=== PATIENT | male | born 1950 | race Caucasian/White ===

== ENCOUNTER 2022-12-26 12:51 | Outpatient (OUT) | payer MEDICARE, SELFPAY ==
[2022-12-26 13:14] LABS: Hemoglobin 14.6 g/dL (14.0-18.0)
[2022-12-26 14:23] VITALS: PULSE 62
[2022-12-26] MEDS: ALBUTEROL SULFATE 2.5 MG/3 ML VIAL NEB IH (14:23)
--- NOTE | 2022-12-26 14:26 | RT_ITS ---
[facility] Test Date: 2022-12-26 Pat Name: RUAL MULLEN Department: Room: - Gender: Male Milk Inspector: Mahesh Meyer RRT : 1950 Requested By: DEZ RODRIGUEZ Order Number: [id number] Ronald MD: Rocael Chandler Interpretive Statements Pulmonary function testing was completed according to ATS criteria. Findings were considered accurate and reproducible, with exception of DLCO which did not meet ATS standards. Both pre- and post-bronchodilator values utilized for spirometry. No prior studies available for comparison. Spirometry (based on pre-bronchodilator values): -FEV1/FVC: Reduced @ 40% -FEV1: Severely reduced @ 35% -FVC: Reduced @ 64% -There is a positive bronchodilator response in FEV1 and FVC. Lung volumes by plethysmography (based on pre-bronchodilator values): -RV: Increased @ 246% -TLC: Increased @ 125% Diffusion capacity: -DLCO: Moderate reduction @ 58% when corrected for Hb 14.6g/dL Flow-volume loop: -Severe obstructive pattern Impressions: -Severe obstruction on spirometry with a positive bronchodilator response. Elevated RV and TLC suggest air trapping and hyperinflation respectively. Moderate diffusion impairment. Overall study compatible with COPD with a positive bronchodilator response or asthma-COPD overlap. Clinical correlation required. Electronically Signed On 12-28-2022 7:56:15 EDT by Rocael Chandler
== END 2022-12-26 12:52 | disposition home or self-care (01) ==
LOC: CARD 12:51
PROVIDERS: PCP Family Medicine; Visit Provider Family Medicine
DX: J44.9 Chronic obstructive pulmonary disease, unspecified (principal); R94.2 Abnormal results of pulmonary function studies
CPT/HCPCS: 36415; 85018; 94060; 94726; 94729

== ENCOUNTER 2023-03-05 16:31 | Observation (INO) | payer MEDICARE, SELFPAY ==
[2023-03-05] VITALS (22 sets, daily range): BP systolic 108–153; BP diastolic 38–93; PULSE 80–112; RESP 18–38; TEMP 36.8–37.1; O2SAT 94–98; BMI 27.1; BMI 26.9
--- NOTE | 2023-03-05 16:45 | ECG_ITS ---
[facility] Test Date: 2023-03-05 Pat Name: RAUL MULLEN Department: Room: - Gender: Male Residential Glazier: : 1950 Requested By: DEZ RODRIGUEZ Order Number: [id number] Reading MD: DEZ RODRIGUEZ Measurements Intervals [place] Rate: 89 P: 84 HI: 146 QRS: 90 QRSD: 98 T: 71 QT: 338 QTc: 385 Interpretive Statements 1100 Sinus rhythm [address] depression 9150 abnormal ECG No previous ECG available for comparison Electronically Signed On 03-06-2023 6:13:10 EDT by DEZ RODRIGUEZ
--- NOTE | 2023-03-05 16:45 | XR_ITS ---
The [address] [address] Patient Name: RAUL MULLEN MRN: [id number] date: 1950 Sex: M Assigned Patient Location: ER Current Patient Location: ER Accession/Order Number: [id number] Exam Date: 03/05/2023 17:00 Report Date: 03/05/2023 17:19 At the request of: NIKITA POLO Procedure: XR chest 1V EXAMINATION: XR chest 1V HISTORY: Shortness of breath COMPARISON: Chest x-ray 11/23/2022 TECHNIQUE: Portable chest FINDINGS: The lung parenchyma is free of consolidation or infiltrate. No pneumothorax or pleural effusion. The cardiac, mediastinal and hilar contours are normal. The visualized osseous structures exhibit no gross abnormality. XR/XR chest 1V IMPRESSION: No acute cardiopulmonary abnormality. Electronically authenticated by: IZABEL SANTIZO Date: 03/05/2023 17:19
--- NOTE | 2023-03-05 16:55 | ED.GENADUL1 ---
HPI - General Adult General Chief complaint: Shortness of Breath/Dyspnea Stated complaint: COPD Time Seen by Provider: 03/05/23 16:42 Source: patient and family Mode of arrival: Wheelchair Limitations: no limitations History of Present Illness HPI narrative: patient is a 72-year-old male with known history of chronic obstructive pulmonary disease presents to the Emergency Room with concerns of shortness of breath and difficulty breathing. Semi-productive cough, symptoms for the past forty-eight hours and progressively worsening. Patient notes chest pain only with coughing. Denies any leg swelling, states he feels like he is retaining some fluid. He denies any measurable fever. Can speak in 4-5 word sentences. Becomes very short of breath with any exertion. Related Data Allergies Allergy/AdvReac Type Severity Reaction Status Date / Time prednisone AdvReac Severe Weakness Verified 03/05/23 16:47 vitamin C AdvReac Severe Hives Uncoded 03/05/23 16:48 Review of Systems ROS Constitutional Denies: fever or chills Eyes Denies: change in vision Ears, nose, mouth, and throat Denies: throat pain or neck pain Cardiovascular Reports: chest pain (with cough only) and shortness of breath when lying down; Denies: palpitations Respiratory Reports: shortness of breath, cough and wheezing Gastrointestinal Denies: abdominal pain, nausea or vomiting Genitourinary Denies: painful urination Musculoskeletal Denies: back pain or neck pain Integumentary/Breast Denies: rash Neurological Denies: headache Psychiatric Denies: anxiety Endocrine Denies: excessive urination Allergic/Immunologic Denies: hives PFSH PFSH Social History Smoking status: Current some day smoker Exam Narrative Exam Narrative: Nurses notes and vital signs reviewed and patient is not hypoxic. General: The patient sitting up, labored breathing, speaking in 4-5 word sentences Skin: Warm, dry, no pallor noted.no evidence of rash Head: Normocephalic, atraumatic Neck: Supple, trachea mid-line, no tenderness, no lymphadenopathy Eye: Pupils are equal, round and reactive to light, EOMI Ears, Nose, Mouth, and Throat: TM are clear, normal light reflex, oral mucosa is moist, no posterior oropharynx erythema or hypertrophy, uvula is mid-line Cardiovascular: Regular Rate and Rhythm Respiratory: labored breathing, able to speak, harsh wheezing noted upper lung mahoney with rhonchi in the bases bilaterally Chest Wall: no tenderness, no pleuritic pain Back: non-tender, no CVA tenderness Musculoskeletal: normal ROM, no tenderness, no swelling, no calf tenderness GI: Normal bowel sounds, no tenderness to palpation, no masses appreciated. No rebound, guarding, or rigidity noted. Neurological: A&O x4 Psychiatric: Cooperative Constitutional Vital Signs, click to edit/add: Last Vital Signs Temp 98.2 F 03/05/23 16:41 Pulse 107 H 03/05/23 17:40 Resp 31 H 03/05/23 17:40 BP 108/93 H 03/05/23 16:43 Pulse Ox 95 03/05/23 17:40 O2 Del Method Room Air 03/05/23 16:41 Course Vital Signs Vital signs: Vital Signs Temperature 98.2 F 03/05/23 16:41 Pulse Rate 98 H 03/05/23 16:41 Respiratory Rate 30 H 03/05/23 16:41 Blood Pressure 108/93 H 03/05/23 16:41 Pulse Oximetry 96 03/05/23 16:41 Oxygen Delivery Method Room Air 03/05/23 16:41 Temperature 98.2 F 03/05/23 16:41 Pulse Rate 107 H 03/05/23 17:40 Respiratory Rate 31 H 03/05/23 17:40 Blood Pressure 108/93 H 03/05/23 16:43 Pulse Oximetry 95 03/05/23 17:40 Oxygen Delivery Method Room Air 03/05/23 16:41 Medical Decision Making MDM Narrative Medical decision making narrative: patient presents with likely chronic obstructive pulmonary disease exacerbation, given Solu-Medrol 125 mg IV, DuoNeb and albuterol breathing treatments. Patient will be monitored for improvement in his breathing. patient reevaluated, significant coughing, patient still feels short of breath. Patient be given azithromycin 500 mg IV. We discussed his prior history with chronic obstructive pulmonary disease, cchest x-ray negative for infiltrate. Recommend admission for furrther pulmonary treatment. Patient's case discussed with Dr. Andino by regarding the need for admission Lab Data Lab results reviewed: Yes I reviewed the patient's lab results Labs: Lab Results 03/05/23 Range/Units 16:50 WBC 8.2 (4.0-11.0) 10^3/uL RBC 4.98 (4.70-6.10) 10^6/uL Hgb 15.1 (14.0-18.0) g/dL Hct 45.5 (42.0-54.0) % MCV 91.4 (80.0-94.0) fL MCH 30.3 (25.9-34.0) pg MCHC 33.2 (29.9-35.2) g/dL RDW 14.5 (11.0-15.0) % Plt Count 310 (150-450) 10^3/uL MPV 8.9 L (9.5-13.5) fL Neut % (Auto) 69.0 (43.0-75.0) % Lymph % (Auto) 14.7 L (20.5-60.0) % [place] % (Auto) 12.3 H (1.7-12.0) % Eos % (Auto) 2.9 (0.9-7.0) % Baso % (Auto) 0.7 (0.2-2.0) % Neut # (Auto) 5.7 (1.4-6.5) 10^3/uL Lymph # (Auto) 1.2 (1.2-3.8) 10^3/uL [place] # (Auto) 1.0 H (0.3-0.8) 10^3/uL Eos # (Auto) 0.2 (0.0-0.7) 10^3/uL Baso # (Auto) 0.1 (0.0-0.1) 10^3/uL Abs Immat Gran (auto) 0.03 (0.00-0.03) 10^3/uL Imm/Tot Granulo (auto) 0.4 (0.0-0.5) % Sodium 136 (136-145) mmol/L Potassium 4.4 (3.5-5.1) mmol/L Chloride 104 (98-107) mmol/L Carbon Dioxide 26.6 (21.0-32.0) mmol/L Anion Gap 9.8 BUN 11.0 (7.0-18.0) mg/dL Creatinine 1.15 (0.70-1.30) mg/dL Est GFR ( Amer) >60 (>=60) Est GFR (Non-Af Amer) >60 (>=60) BUN/Creatinine Ratio 9.6 Glucose 85 (74-106) mg/dL Lactate 1.2 (0.4-2.0) mmol/L Calcium 8.9 (8.5-10.1) mg/dL Total Bilirubin 0.2 (0.2-1.0) mg/dL AST 19 (15-37) U/L ALT 27 (16-63) U/L Alkaline Phosphatase 142 H (46-116) U/L Troponin I High Sens 4.7 (4.0-76.1) pg/mL NT-Pro-B Natriuret Pep 100.0 (<=900.0) pg/mL Total Protein 7.1 (6.4-8.2) g/dL Albumin 3.6 (3.4-5.0) g/dL Globulin 3.5 g/dL Albumin/Globulin Ratio 1.0 Imaging Data Chest x-ray: Radiologist's impression: Procedure: XR chest 1V EXAMINATION: XR chest 1V HISTORY: Shortness of breath COMPARISON: Chest x-ray 11/23/2022 TECHNIQUE: Portable chest FINDINGS: The lung parenchyma is free of consolidation or infiltrate. No pneumothorax or pleural effusion. The cardiac, mediastinal and hilar contours are normal. The visualized osseous structures exhibit no gross abnormality. IMPRESSION: No acute cardiopulmonary abnormality. Electronically authenticated by: IZABEL SANTIZO Date: 03/05/2023 17:19 ECG Data Attestation: I personally reviewed and interpreted this ECG as follows: Interpretation: EKG interpretation: Emergency Department physician interpretation, sinus rhythm 89 bpm, notable artifact with patient breathing , no ST elevation Discharge Plan Discharge Chief Complaint: Shortness of Breath/Dyspnea Clinical Impression: COPD exacerbation Patient Disposition: Admitted As Inpatient Time of Disposition Decision: 18:30 Condition: Good Additional Instructions: Dr. Andino Referrals: John Bhagat MD [Primary Care Provider] - 1 week
[2023-03-05] MEDS: ALBUTEROL SULFATE 2.5 MG/3 ML VIAL NEB IH (17:02)
[2023-03-05] MEDS: IPRATROPIUM/ALBUTEROL SULFATE 3 ML AMPUL.NEB IH ×2 (17:02→22:55)
[2023-03-05 17:06] LABS: Basophils Absolute Auto 0.1 10^3/uL (0.0-0.1); Basophils Percent Auto 0.7 % (0.2-2.0); Eosinophils Absolute Auto 0.2 10^3/uL (0.0-0.7); Eosinophils Percent Auto 2.9 % (0.9-7.0); Hematocrit 45.5 % (42.0-54.0); Hemoglobin 15.1 g/dL (14.0-18.0); Immature Granulocytes Abs Auto 0.03 10^3/uL (0.00-0.03); Immature Granulocytes Pct Auto 0.4 % (0.0-0.5); Lymphocytes Absolute Auto 1.2 10^3/uL (1.2-3.8); Lymphocytes Percent Auto 14.7 % (20.5-60.0); Mean Corpuscular HGB Conc 33.2 g/dL (29.9-35.2); Mean Corpuscular Hemoglobin 30.3 pg (25.9-34.0); Mean Corpuscular Volume 91.4 fL (80.0-94.0); Mean Platelet Volume 8.9 fL (9.5-13.5); Monocytes Percent Auto 12.3 % (1.7-12.0); Neutrophils Absolute Auto 5.7 10^3/uL (1.4-6.5); Platelet Count 310 10^3/uL (150-450); Red Blood Count 4.98 10^6/uL (4.70-6.10); Red Cell Distribution Width 14.5 % (11.0-15.0); White Blood Count 8.2 10^3/uL (4.0-11.0)
[2023-03-05 17:32] LABS: Alanine Aminotransferase 27 U/L (16-63); Albumin Level 3.6 g/dL (3.4-5.0); Alkaline Phosphatase 142 U/L (46-116); Anion Gap 9.8; Aspartate Amino Transferase 19 U/L (15-37); BUN Creatinine Ratio 9.6; Bilirubin Total 0.2 mg/dL (0.2-1.0); Calcium 8.9 mg/dL (8.5-10.1); Carbon Dioxide 26.6 mmol/L (21.0-32.0); Chloride 104 mmol/L (98-107); Estimated GFR (African America >60 (>=60); Estimated GFR (Non-African Ame >60 (>=60); Globulin 3.5 g/dL; Glucose 85 mg/dL (74-106); Potassium 4.4 mmol/L (3.5-5.1); Sodium 136 mmol/L (136-145); Total Protein 7.1 g/dL (6.4-8.2)
[2023-03-05 17:34] LABS: Troponin I High Sensitivity 4.7 pg/mL (4.0-76.1)
[2023-03-05] MEDS: METHYLPREDNISOLONE SOD SUCC PF 125 MG/2 ML VIAL IVP (17:34)
[2023-03-05] MEDS: 0.9 % SODIUM CHLORIDE 1,000 ML 100 ML IV (17:34)
[2023-03-05 17:51] LABS: Lactate/Lactic Acid 1.2 mmol/L (0.4-2.0)
[2023-03-05] MEDS: AZITHROMYCIN 500 MG in 0.9 % SODIUM CHLORIDE 250 ML 250 MG IV (18:39)
[2023-03-05 18:44] LABS: SARS-CoV-2 Ag NEGATIVE (NEGATIVE)
--- NOTE | 2023-03-05 23:40 | P.PN_ITS ---
Exam Constitutional Vital Signs, click to edit/add: Last Vital Signs Temp 98.7 F 03/05/23 22:58 Pulse 85 03/05/23 23:07 Resp 22 03/05/23 23:07 BP 115/38 L 03/05/23 22:58 Pulse Ox 96 03/05/23 23:07 O2 Del Method Room Air 03/05/23 23:07 Common normals: no apparent distress HENMT Common normals: normocephalic Chest Common normals: inspection of chest normal Other: Minimal wheezing Respiratory Common normals: no use of accessory muscles Auscultation: wheezes Cardio Common normals: regular rate and regular rhythm GI Common normals: Normal to inspection, nondistended, normoactive bowel sounds present and non-tender Extremity Common normals: normal to inspection Neuro Common normals: oriented x3 Psych Common normals: mental status grossly normal Progress Note: Objective Labs Labs: Short CBC 03/05/23 Range/Units 16:50 WBC 8.2 (4.0-11.0) 10^3/uL Hgb 15.1 (14.0-18.0) g/dL Hct 45.5 (42.0-54.0) % Plt Count 310 (150-450) 10^3/uL BMP 03/05/23 16:50 Sodium 136 Potassium 4.4 Chloride 104 Carbon Dioxide 26.6 BUN 11.0 Creatinine 1.15 Glucose 85 Calcium 8.9 Liver Function 03/05/23 Range/Units 16:50 Total Bilirubin 0.2 (0.2-1.0) mg/dL AST 19 (15-37) U/L ALT 27 (16-63) U/L Alkaline Phosphatase 142 H (46-116) U/L Albumin 3.6 (3.4-5.0) g/dL Progress Note: A&P Assessment and Plan (1) COPD exacerbation: Plan COPD Exacerbation IV steroids Monitor O2 Home meds Regular diet BIPAP if needed Telemedicine Attestation Telemedicine Attestation I conducted this encounter from [facility] via secure live, [id number] video conference with the patient, located at [facility]. Prior to the interview, the risks and benefits of telemedicine were discussed with the patient and verbal consent was obtained. COPD Pt presents with dyspnea and wheezing for past one week. has been trying bronchodilators at home with no help. Has ho COPD. no other medical issues. When he came to ER, he was wheezing and recieved IV solumedrol with minimal relief in wheezing. However, tachypnea did improve. has not been needing O2. Has had some minimal phlegm as well. no fever or chills. Current symptoms: Reports dyspnea and wheezing Pulmonary Results: Pulmonary Function Test 12/26/22
[2023-03-06] VITALS (16 sets, daily range): BP systolic 122–140; BP diastolic 65–78; PULSE 77–102; RESP 18–26; TEMP 36.5–36.6; O2SAT 91–95
[2023-03-06] MEDS: GUAIFENESIN 200 MG/10 ML LIQUID 100 MG PO (00:48)
[2023-03-06] MEDS: METHYLPREDNISOLONE SOD SUCC PF 40 MG/ML VIAL IVP ×3 (02:28→17:22)
[2023-03-06] MEDS: IPRATROPIUM/ALBUTEROL SULFATE 3 ML AMPUL.NEB IH ×3 (04:24→23:59)
--- NOTE | 2023-03-06 04:28 | RESP.RT ---
decreased down to room air
[2023-03-06 04:53] LABS: Basophils Percent Auto 0.2 % (0.2-2.0); Hematocrit 41.3 % (42.0-54.0); Hemoglobin 13.6 g/dL (14.0-18.0); Immature Granulocytes Abs Auto 0.02 10^3/uL (0.00-0.03); Immature Granulocytes Pct Auto 0.3 % (0.0-0.5); Lymphocytes Absolute Auto 0.4 10^3/uL (1.2-3.8); Mean Corpuscular HGB Conc 32.9 g/dL (29.9-35.2); Mean Corpuscular Hemoglobin 30.3 pg (25.9-34.0); Mean Platelet Volume 9.1 fL (9.5-13.5); Monocytes Absolute Auto 0.1 10^3/uL (0.3-0.8); Monocytes Percent Auto 2.2 % (1.7-12.0); Neutrophils Absolute Auto 5.5 10^3/uL (1.4-6.5); Neutrophils Percent Auto 91.3 % (43.0-75.0); Platelet Count 305 10^3/uL (150-450); Red Blood Count 4.49 10^6/uL (4.70-6.10); Red Cell Distribution Width 14.5 % (11.0-15.0)
[2023-03-06 06:35] LABS: Alanine Aminotransferase 24 U/L (16-63); Albumin Level 3.3 g/dL (3.4-5.0); Alkaline Phosphatase 122 U/L (46-116); Anion Gap 14.8; Aspartate Amino Transferase 12 U/L (15-37); BUN Creatinine Ratio 9.9; Bilirubin Total 0.2 mg/dL (0.2-1.0); Calcium 8.4 mg/dL (8.5-10.1); Carbon Dioxide 22.9 mmol/L (21.0-32.0); Chloride 108 mmol/L (98-107); Estimated GFR (African America 60 (>=60); Estimated GFR (Non-African Ame 49 (>=60); Globulin 3.3 g/dL; Glucose 214 mg/dL (74-106); Potassium 3.7 mmol/L (3.5-5.1); Sodium 142 mmol/L (136-145); Total Protein 6.6 g/dL (6.4-8.2)
[2023-03-06 07:33] LABS: Glucometer 160 mg/dL (74-106)
[2023-03-06] MEDS: CEFTRIAXONE 1,000 MG in 0.9 % SODIUM CHLORIDE 50 ML 100 MG IV (08:06)
[2023-03-06] MEDS: INSULIN ASPART 300 UNIT/3 ML PEN SUBQ ×2 (08:08→12:15)
--- NOTE | 2023-03-06 08:37 | P.HP_ITS ---
H&P: HPI History of Present Illness Chief complaint: COPD Exacerbation Narrative: Patient well-known to me from both office outpatient care as well as inpatient hospitalizations. Presented to the emergency room with increasing cough minimally productive, shortness of breath, found to have acute exacerbation of COPD secondary to acute bronchitis. Patient on multiple medical therapies in the emergency room without improving significantly as cough or his shortness of breath. Usually he requires a 2 to 3-day hospital stay. Review of Systems ROS Constitutional Denies: fever or chills Eyes Denies: change in vision Ears, nose, mouth, and throat Denies: throat pain Cardiovascular Denies: chest pain or palpitations Respiratory Reports: shortness of breath, cough, wheezing and chest congestion Gastrointestinal Denies: abdominal pain Genitourinary Denies: painful urination Musculoskeletal Denies: back pain [facility] Medical History (Updated 03/05/23 @ 20:29 by Chela Yañez, YOLY) Family History (Updated 03/05/23 @ 20:18 by Chela Yañez, RN) Other Family history of CHF (congestive heart failure) Family history of COPD (chronic obstructive pulmonary disease) Family history of diabetes mellitus Family history of myocardial infarction Social History (Updated 03/05/23 @ 20:23 by Chela Yañez, RN) Within the past year, how often did you have a drink containing alcohol: never Score interpretation: A score less than 4 is consistent with normal alcohol consumption. Smoking status: Current some day smoker Non-prescribed substance use: denies use Highest level of school completed/degree received: GED or equivalent Little interest or pleasure in doing things: not at all Feeling down, depressed, or hopeless: not at all Feel stressed/tense/nervous/anxious/difficulty sleeping: not at all Meds Home Medications and Allergies Home Medications Medication Instructions Recorded Confirmed Type albuterol sulfate 90 mcg/actuation 2 inh inhalation Q6H PRN shortness 03/05/23 03/06/23 History aerosol inhaler of breath or wheezing theophylline 300 mg 300 mg PO BID 03/05/23 03/06/23 History tablet,extended release,12 hr mometasone-formoterol HFA 200 2 inh inhalation BID 03/06/23 03/06/23 History mcg-5 mcg/actuation aerosol inhaler (Dulera) Allergies Allergy/AdvReac Type Severity Reaction Status Date / Time prednisone AdvReac Severe Weakness Verified 03/05/23 16:47 vitamin C AdvReac Severe Hives Uncoded 03/05/23 16:48 Exam Constitutional Vital Signs, click to edit/add: Last Vital Signs Temp 97.8 F 03/06/23 07:35 Pulse 94 H 03/06/23 07:49 Resp 18 03/06/23 07:35 BP 125/65 03/06/23 07:35 Pulse Ox 93 L 03/06/23 07:35 O2 Del Method Room Air 03/06/23 07:35 O2 Flow Rate 0.5 03/06/23 04:28 Documenting provider has reviewed patient's vital signs: yes Common normals: apparent distress General appearance: in distress HENMT Common normals: normocephalic Chest Common normals: inspection of chest normal Respiratory Common normals: abnormal respiratory effort Effort & inspection: respiratory distress; not able to speak in complete sentences Auscultation: rhonchi and diminished lung sounds Cardio Common normals: regular rate, regular rhythm and no murmurs GI Common normals: Normal to inspection, nondistended, normoactive bowel sounds present Results Labs Labs: Short CBC 03/05/23 03/06/23 Range/Units 16:50 04:04 WBC 8.2 6.0 (4.0-11.0) 10^3/uL Hgb 15.1 13.6 L (14.0-18.0) g/dL Hct 45.5 41.3 L (42.0-54.0) % Plt Count 310 305 (150-450) 10^3/uL BMP 03/05/23 03/06/23 16:50 04:04 Sodium 136 142 Potassium 4.4 3.7 Chloride 104 108 H Carbon Dioxide 26.6 22.9 BUN 11.0 14.0 Creatinine 1.15 1.41 H Glucose 85 214 H Calcium 8.9 8.4 L Liver Function 03/05/23 03/06/23 Range/Units 16:50 04:04 Total Bilirubin 0.2 0.2 (0.2-1.0) mg/dL AST 19 12 L (15-37) U/L ALT 27 24 (16-63) U/L Alkaline Phosphatase 142 H 122 H (46-116) U/L Albumin 3.6 3.3 L (3.4-5.0) g/dL Assessment and Plan Assessment and Plan (1) COPD exacerbation: (2) Arthritis: (3) Chronic bronchitis: (4) Emphysema lung: (5) Hiatal hernia: Plan Respiratory distress, sinus tachycardia secondary to a acute exacerbation of COPD with acute bronchitis but without hypoxia. Lung exam significantly changed from his baseline. Normally he is clear to examination but with distant breath sounds, severe rhonchi persisting this morning. Continue with steroids and antibiotics, adjusted antibiotics this morning already, will hold off on increasing steroids currently secondary to hyperglycemia, tried obtain sputum sa mple, consider repeat chest x-ray, check theophylline level, maintain theophylline dosing Iron deficiency anemia-monitor daily Hyperglycemia secondary to steroid use, will try to keep the steroid dose low but needs insulin sliding scale Acute kidney injury-somewhat elevated today, will monitor daily, reviewed medications Attempted to try to discharge patient after overnight treatment. He is not requiring any supplemental oxygen but his lung exam is consistent with acute exacerbation of his COPD which is in the past but unable to improve as an 8 outpatient required extended stay for acute COPD. To try to prevent extended stable keep him 1 additional day today. Maintain observation status for now. If patient does not improve overnight will change patient to inpatient status
--- NOTE | 2023-03-06 08:52 | CM.NOTE ---
Rounds made with Dr. Bhagat, no discharge today. No discharge needs identified.
--- NOTE | 2023-03-06 08:59 | CM.NOTE ---
Medicare Outpatient Observation Notice discussed with pt, pt verbalizes understanding and signs paper. Original given to pt and copy placed on pt's chart.
[2023-03-06 10:14] LABS: Theophylline <2.0 ug/mL (10.0-20.0)
[2023-03-06 11:37] LABS: Glucometer 155 mg/dL (74-106)
--- NOTE | 2023-03-06 12:13 | SWNOTE1 ---
SW met with pt to discuss dc needs. Pt lives at home with his . 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 Pt has no concerns about discharge at this time. SW to follow as needed.
[2023-03-06 16:02] LABS: Glucometer 132 mg/dL (74-106)
[2023-03-06 16:19] LABS: SARS-CoV-2 NAA NOT DETECTED (NOT DETECTE)
[2023-03-06 20:19] LABS: Glucometer 180 mg/dL (74-106)
[2023-03-07] MEDS: INSULIN ASPART 300 UNIT/3 ML PEN SUBQ (00:13)
[2023-03-07 00:18] LABS: Glucometer 144 mg/dL (74-106)
[2023-03-07] MEDS: METHYLPREDNISOLONE SOD SUCC PF 40 MG/ML VIAL IVP ×2 (02:39→08:49)
[2023-03-07 04:45] LABS: Basophils Percent Auto 0.1 % (0.2-2.0); Hematocrit 40.8 % (42.0-54.0); Hemoglobin 13.4 g/dL (14.0-18.0); Immature Granulocytes Abs Auto 0.12 10^3/uL (0.00-0.03); Immature Granulocytes Pct Auto 0.8 % (0.0-0.5); Lymphocytes Absolute Auto 0.7 10^3/uL (1.2-3.8); Lymphocytes Percent Auto 4.7 % (20.5-60.0); Mean Corpuscular HGB Conc 32.8 g/dL (29.9-35.2); Mean Corpuscular Volume 91.3 fL (80.0-94.0); Mean Platelet Volume 8.9 fL (9.5-13.5); Monocytes Absolute Auto 1.2 10^3/uL (0.3-0.8); Monocytes Percent Auto 7.9 % (1.7-12.0); Neutrophils Absolute Auto 12.9 10^3/uL (1.4-6.5); Neutrophils Percent Auto 86.5 % (43.0-75.0); Platelet Count 325 10^3/uL (150-450); Red Blood Count 4.47 10^6/uL (4.70-6.10); Red Cell Distribution Width 14.8 % (11.0-15.0); White Blood Count 14.9 10^3/uL (4.0-11.0)
[2023-03-07 05:01] LABS: Anion Gap 12.1; BUN Creatinine Ratio 15.2; Chloride 106 mmol/L (98-107); Estimated GFR (African America >60 (>=60); Estimated GFR (Non-African Ame >60 (>=60); Glucose 133 mg/dL (74-106); Potassium 4.1 mmol/L (3.5-5.1); Sodium 140 mmol/L (136-145)
[2023-03-07 05:42] VITALS: O2SAT 95
[2023-03-07] MEDS: IPRATROPIUM/ALBUTEROL SULFATE 3 ML AMPUL.NEB IH (05:42)
[2023-03-07 05:58] VITALS: BP 152/74; PULSE 95; RESP 18; TEMP 36.6; O2SAT 92
[2023-03-07] MEDS: CEFTRIAXONE 1,000 MG in 0.9 % SODIUM CHLORIDE 50 ML 100 MG IV (06:19)
--- NOTE | 2023-03-07 08:16 | CM.NOTE ---
Rounds made with guero Herring to discharge to home today. No discharge needs identified.
[2023-03-07] MEDS: THEOPHYLLINE 300 MG TAB.ER.12H PO (08:49)
--- NOTE | 2023-03-07 09:28 | P.DS_ITS ---
DS: Providers Provider Date of admission: 03/05/23 19:46 Primary care physician: John Bhagat MD DS: Diagnosis Discharge Diagnosis (1) COPD exacerbation: (2) Arthritis: (3) Chronic bronchitis: (4) Emphysema lung: (5) Hiatal hernia: Plan Respiratory distress, sinus tachycardia secondary to a acute exacerbation of COPD with acute bronchitis but without hypoxia. Lung exam significantly changed from his baseline. Normally he is clear to examination but with distant breath sounds, severe rhonchi persisting this morning. Continue with steroids and antibiotics, adjusted antibiotics this morning already, will hold off on increasing steroids currently secondary to hyperglycemia, tried obtain sputum sample, consider repeat chest x-ray, check theophylline level, maintain theophylline dosing Iron deficiency anemia-monitor daily Hyperglycemia secondary to steroid use, will try to keep the steroid dose low but needs insulin sliding scale Acute kidney injury-somewhat elevated today, will monitor daily, reviewed medications DS: Summary Hospital Course Hospital Course: He was admitted with a recurrence of his acute exacerbation of COPD-chest x-ray is clear and not hypoxic but is significant difficulty with breathing. Significant physical findings with diffuse rhonchi not improved after the first 24 hours. He was kept 1 additional day and kept on IV therapy. He is much improved today and ambulating with less dyspnea. Patient will be discharged home in improving condition. Medications see list. Follow-up with me in the office within the next week. Time Spent with Patient Time attestation: Total time spent providing and/or coordinating discharge services: Exam Constitutional Vital Signs, click to edit/add: Last Vital Signs Temp 97.8 F 03/07/23 05:58 Pulse 95 H 03/07/23 05:58 Resp 18 03/07/23 05:58 BP 152/74 H 03/07/23 05:58 Pulse Ox 92 L 03/07/23 05:58 O2 Del Method Room Air 03/07/23 05:58 O2 Flow Rate 0.5 03/06/23 04:28 Documenting provider has reviewed patient's vital signs: yes Common normals: apparent distress General appearance: in distress HENTN Common normals: normocephalic Chest Common normals: inspection of chest normal Respiratory Common normals: abnormal respiratory effort Effort & inspection: respiratory distress; not able to speak in complete sentences Auscultation: rhonchi and diminished lung sounds Cardio Common normals: regular rate, regular rhythm and no murmurs GI Common normals: Normal to inspection, nondistended, normoactive bowel sounds present DS: Data Data Completed and Pending Labs on day of discharge: Labs from last 24 hours 03/07/23 03/07/23 03/06/23 04:00 00:16 20:17 WBC 14.9 H RBC 4.47 L Hgb 13.4 L Hct 40.8 L MCV 91.3 MCH 30.0 MCHC 32.8 RDW 14.8 Plt Count 325 MPV 8.9 L Neut % (Auto) 86.5 H Lymph % (Auto) 4.7 L [place] % (Auto) 7.9 Eos % (Auto) 0.0 L Baso % (Auto) 0.1 L Neut # (Auto) 12.9 H Lymph # (Auto) 0.7 L [place] # (Auto) 1.2 H Eos # (Auto) 0.0 Baso # (Auto) 0.0 Abs Immat Gran (auto) 0.12 H Imm/Tot Granulo (auto) 0.8 H Sodium 140 Potassium 4.1 Chloride 106 Carbon Dioxide 26.0 Anion Gap 12.1 BUN 15.0 Creatinine 0.99 Est GFR ( Amer) >60 Est GFR (Non-Af Amer) >60 BUN/Creatinine Ratio 15.2 Glucose 133 H Calcium 9.0 Theophylline SARS-CoV-2 RNA ([place]) POC Glucose 144 H 180 H 03/06/23 03/06/23 03/06/23 16:01 11:35 04:04 WBC RBC Hgb Hct MCV MCH MCHC RDW Plt Count MPV Neut % (Auto) Lymph % (Auto) [place] % (Auto) Eos % (Auto) Baso % (Auto) Neut # (Auto) Lymph # (Auto) [place] # (Auto) Eos # (Auto) Baso # (Auto) Abs Immat Gran (auto) Imm/Tot Granulo (auto) Sodium Potassium Chloride Carbon Dioxide Anion Gap BUN Creatinine Est GFR ( Amer) Est GFR (Non-Af Amer) BUN/Creatinine Ratio Glucose Calcium Theophylline <2.0 L SARS-CoV-2 RNA ([place]) POC Glucose 132 H 155 H 03/05/23 16:50 WBC RBC Hgb Hct MCV MCH MCHC RDW Plt Count MPV Neut % (Auto) Lymph % (Auto) [place] % (Auto) Eos % (Auto) Baso % (Auto) Neut # (Auto) Lymph # (Auto) [place] # (Auto) Eos # (Auto) Baso # (Auto) Abs Immat Gran (auto) Imm/Tot Granulo (auto) Sodium Potassium Chloride Carbon Dioxide Anion Gap BUN Creatinine Est GFR ( Amer) Est GFR (Non-Af Amer) BUN/Creatinine Ratio Glucose Calcium Theophylline SARS-CoV-2 RNA ([place]) Not detected POC Glucose Discharge Plan Discharge Disposition: Home, Self-Care Condition: Good Discharge Medications: New cefdinir 300 mg capsule 600 mg PO QDAY 10 Days Qty: 20 0RF Continued theophylline 300 mg tablet extended release 12 hr 300 mg PO BID albuterol sulfate 90 mcg/actuation HFA aerosol inhaler 2 inh INHALATION Q6H PRN (Reason: shortness of breath or wheezing) Dulera 200-5 mcg/actuation HFA aerosol inhaler 2 inh inhalation BID Activity: resume usual activities as tolerated Diet: advance to your usual diet Patient Instructions: COPD (Chronic Obstructive Pulmonary Disease) (DC) Forms: Portal Instructions Follow Up Appointments: Follow up with Dr. Bhagat MondayMar 22 at 2pm. [phone]. Discharge Date/Time: 03/07/23 09:45
--- NOTE | 2023-03-09 14:24 | CM.DCFOLLOWU ---
Person spoke with: Srini How are you feeling? better How is your pain? none Did you understand your discharge instructions? yes Do you have any questions about your discharge instructions? No Were you given any prescriptions at discharge? yes Were you able to get your prescriptions filled? Yes Do you understand how to take your medications as ordered? Yes Do you have any questions about your follow up appointment and do you plan to keep your follow up appointment? Yes scheduled and will go Is there anything else that you would like to discuss? No Questions/Comments/Concerns/Other:
== END 2023-03-07 09:45 | disposition home or self-care (01) ==
LOC: ER 19:19 → MS 03-06 07:32
PROVIDERS: Medical Genetics Clinical Genetics (M.D.); Personal Emergency Response Attendant; Admitting Provider Family Medicine; Emergency Provider Emergency Medicine; PCP Family Medicine; Visit Provider Family Medicine
DX: J20.9 Acute bronchitis, unspecified (principal); J43.9 Emphysema, unspecified; M19.90 Unspecified osteoarthritis, unspecified site; D50.9 Iron deficiency anemia, unspecified; R73.9 Hyperglycemia, unspecified; T38.0X5A Adverse effect of glucocorticoids and synthetic analogues, initial encounter; R06.03 Acute respiratory distress; R00.0 Tachycardia, unspecified; N17.9 Acute kidney failure, unspecified; K44.9 Diaphragmatic hernia without obstruction or gangrene; F17.210 Nicotine dependence, cigarettes, uncomplicated; Z20.822 Contact with and (suspected) exposure to COVID-19
CPT/HCPCS: 36415; 71045; 80048; 80053; 80198; 82948; 83605; 83880; 84484; 85025; 87040; 87070; 87635; 87811; 93005; 94640; 94761; 96365; 96366; 96367; 96375; 96376; 99285; G0378; J0456; J2920; J2930; U0003

== ENCOUNTER 2023-04-19 15:54 | Observation (INO) | payer MEDICARE, SELFPAY ==
[2023-04-19] VITALS (10 sets, daily range): BP systolic 130–161; BP diastolic 64–85; PULSE 68–88; RESP 16–20; TEMP 36.2–36.9; O2SAT 93–97; BMI 27.1; BMI 28.7
--- NOTE | 2023-04-19 16:22 | ECG_ITS ---
[facility] Test Date: 2023-04-19 Pat Name: RAUL MULLEN Department: Room: - Gender: Male Staff Counsel: : 1950 Requested By: DEZ RODRIGUEZ Order Number: [id number] Reading MD: DEZ RODRIGUEZ Measurements Intervals [place] Rate: 82 P: 106 WI: 142 QRS: 93 QRSD: 96 T: 106 QT: 360 QTc: 398 Interpretive Statements 1100 Sinus rhythm [address] depression 7102 Moderate right axis deviation 0101 Possible arm leads reversed, check lead requested 9150 abnormal ECG Compared to ECG 03/05/2023 16:46:25 Right-axis deviation now present ST (T wave) deviation still present Electronically Signed On 04-20-2023 5:30:31 EDT by DEZ RODRIGUEZ
--- NOTE | 2023-04-19 16:22 | XR_ITS ---
The [address] [address] Patient Name: RAUL MULLEN MRN: [id number] date: 1950 Sex: M Assigned Patient Location: ER Current Patient Location: ER Accession/Order Number: [id number] Exam Date: 04/19/2023 16:28 Report Date: 04/19/2023 16:47 At the request of: CARY WISDOM Procedure: XR chest 1V 2 frontal AP portable erect CHEST RADIOGRAPH, 04/19/2023 4:28 PM EDT COMPARISON: Chest, 03/05/2023. CLINICAL HISTORY: shortness of breath Findings and impression: 1. No acute pulmonary disease. 2. Changes of COPD. 3. Stable microcardia. 4. No acute osseous abnormality. Electronically authenticated by: Carly GUSTAFSON Date: 04/19/2023 16:47
--- NOTE | 2023-04-19 16:25 | ED.SOB1 ---
HPI - SOB/Dyspnea General Chief Complaint: Shortness of Breath/Dyspnea Stated Complaint: sob, weakness hx copd Time Seen by Provider: 04/19/23 15:59 Source: patient Mode of arrival: walk-in Limitations: no limitations History of Present Illness HPI Narrative: Patient with advanced lung disease - long-term COPD and emphysema - presents with increased shortness of breath over the last 2 days. He coughed up a lot of phlegm last night during an intense coughing fit. he has been using his home nebulizer and taking all meds as prescribed without improvement. he told me that when he gets like this he usually gets admitted otherwise I just go home and get worse . No chest pain or tightness and no LE swelling. No GI or symptoms. Related Data Home Medications Medication Instructions Recorded Confirmed albuterol sulfate 90 mcg/actuation 2 inh inhalation Q6H PRN shortness 03/05/23 04/19/23 aerosol inhaler of breath or wheezing theophylline 300 mg 300 mg PO BID 03/05/23 04/19/23 tablet,extended release,12 hr famotidine 20 mg tablet 20 mg PO DAILY PRN heart burn 04/19/23 04/19/23 Previous Rx's Medication Instructions Recorded cefdinir 300 mg capsule 600 mg PO QDAY 10 days #20 caps 03/07/23 Allergies Allergy/AdvReac Type Severity Reaction Status Date / Time prednisone AdvReac Severe Weakness Verified 04/19/23 16:07 vitamin C AdvReac Severe Hives Uncoded 04/19/23 16:07 [facility] Medical History (Updated 04/19/23 @ 16:59 by Cary Wisdom) Arthritis ?M19.90 - Unspecified osteoarthritis, unspecified site (ICD-10) Blood clot in vein ?I82.90 - Acute embolism and thrombosis of unspecified vein (ICD-10) Chronic bronchitis ?J42 - Unspecified chronic bronchitis (ICD-10) COPD exacerbation ?J44.1 - Chronic obstructive pulmonary disease with (acute) exacerbation (ICD-10) Emphysema lung ?J43.9 - Emphysema, unspecified (ICD-10) Hiatal hernia ?K44.9 - Diaphragmatic hernia without obstruction or gangrene (ICD-10) Tuberculosis ?A15.9 - Respiratory tuberculosis unspecified (ICD-10) Family History (Updated 03/05/23 @ 20:18 by Chela Yañez RN) Other Family history of CHF (congestive heart failure) Family history of COPD (chronic obstructive pulmonary disease) Family history of diabetes mellitus Family history of myocardial infarction Social History (Updated 03/05/23 @ 20:23 by Chela Yañez RN) Within the past year, how often did you have a drink containing alcohol: never Score interpretation: A score less than 4 is consistent with normal alcohol consumption. Smoking status: Current every day smoker Non-prescribed substance use: denies use Highest level of school completed/degree received: GED or equivalent Little interest or pleasure in doing things: not at all Feeling down, depressed, or hopeless: not at all Feel stressed/tense/nervous/anxious/difficulty sleeping: not at all Exam Narrative Exam Narrative: Nurses notes and vital signs reviewed and patient is not hypoxic. afebrile General: tachypneic but not in respiratory distress. Skin: Warm, dry, no pallor noted. Head: Normocephalic, atraumatic. Neck: Supple, non-tender. prominent left-sided cervical lymphadenopathy Eye: Pupils are equal, round and EOMI. No scleral icterus. Ears, Nose, Mouth, and Throat: Oral mucosa is moist, no posterior oropharynx erythema, uvula is mid-line Cardiovascular: Regular Rate and Rhythm without murmur, gallop or rub. Respiratory: No accessory muscle use or respiratory distress. Lungs with diffuse expiratory wheezes and scattered rhonchi Chest Wall: no tenderness, crepitus or subcutaneous emphysema Musculoskeletal: normal ROM, no calf or popliteal tenderness, no lower extremity edema/swelling GI: Abdomen is soft, non-distended. Normal bowel sounds. No tenderness to palpation. No rebound, guarding, or rigidity noted. Neurological: A&O x4. No cranial nerve dysfunction observed. No truncal ataxia. Moves all extremities. Sensation intact. Psychiatric: Cooperative and interactive. Normal mood and affect. Constitutional Vital Signs, click to edit/add: Last Vital Signs Temp 98.4 F 04/19/23 16:01 Pulse 71 04/19/23 16:01 Resp 20 04/19/23 16:01 BP 140/64 04/19/23 16:01 Pulse Ox 95 04/19/23 17:25 O2 Del Method Room Air 04/19/23 17:25 O2 Flow Rate 74 04/19/23 17:25 Course Vital Signs Vital signs: Vital Signs Temperature 98.4 F 04/19/23 16:01 Pulse Rate 71 04/19/23 16:01 Respiratory Rate 20 04/19/23 16:01 Blood Pressure 140/64 04/19/23 16:01 Pulse Oximetry 97 04/19/23 16:01 Oxygen Delivery Method Room Air 04/19/23 16:01 Temperature 98.4 F 04/19/23 16:01 Pulse Rate 71 04/19/23 16:01 Respiratory Rate 20 04/19/23 16:01 Blood Pressure 140/64 04/19/23 16:01 Pulse Oximetry 95 04/19/23 17:25 Oxygen Delivery Method Room Air 04/19/23 17:25 Oxygen Delivery Flow Rate 74 04/19/23 17:25 MDM - SOB/Dyspnea MDM Narrative Medical decision making narrative: Patient was placed on youth nutritional monitor and EKG obtained. Blood drawn and sent for evaluation. possible chest x-ray obtained The patient agreed to take IV Solu-Medrol. He was also given DuoNeb treatment in the emergency department. Normal WBC, unremarkable CBC and BMP, negative Covid and cardiacs. No pneumonia on CXR. But he is still significantly short of breath and Dr Lawton agreed to admit him to [facility] floor, OBS. Lab Data Attestation: I reviewed the patient's lab results. Labs: Lab Results 04/19/23 04/19/23 Range/Units 16:55 17:04 WBC 6.9 (4.0-11.0) 10^3/uL RBC 4.69 L (4.70-6.10) 10^6/uL Hgb 14.3 (14.0-18.0) g/dL Hct 43.2 (42.0-54.0) % MCV 92.1 (80.0-94.0) fL MCH 30.5 (25.9-34.0) pg MCHC 33.1 (29.9-35.2) g/dL RDW 14.2 (11.0-15.0) % Plt Count 240 (150-450) 10^3/uL MPV 9.3 L (9.5-13.5) fL Neut % (Auto) 62.8 (43.0-75.0) % Lymph % (Auto) 21.5 (20.5-60.0) % [place] % (Auto) 10.4 (1.7-12.0) % Eos % (Auto) 3.8 (0.9-7.0) % Baso % (Auto) 1.2 (0.2-2.0) % Neut # (Auto) 4.4 (1.4-6.5) 10^3/uL Lymph # (Auto) 1.5 (1.2-3.8) 10^3/uL [place] # (Auto) 0.7 (0.3-0.8) 10^3/uL Eos # (Auto) 0.3 (0.0-0.7) 10^3/uL Baso # (Auto) 0.1 (0.0-0.1) 10^3/uL Abs Immat Gran (auto) 0.02 (0.00-0.03) 10^3/uL Imm/Tot Granulo (auto) 0.3 (0.0-0.5) % Sodium 137 (136-145) mmol/L Potassium 3.9 (3.5-5.1) mmol/L Chloride 105 (98-107) mmol/L Carbon Dioxide 21.8 (21.0-32.0) mmol/L Anion Gap 14.1 BUN 16.0 (7.0-18.0) mg/dL Creatinine 1.09 (0.70-1.30) mg/dL Est GFR ( Amer) >60 (>=60) Est GFR (Non-Af Amer) >60 (>=60) BUN/Creatinine Ratio 14.7 Glucose 104 (74-106) mg/dL Calcium 8.4 L (8.5-10.1) mg/dL Troponin I High Sens 7.6 (4.0-76.1) pg/mL NT-Pro-B Natriuret Pep 82.0 (<=900.0) pg/mL SARS-CoV-2 (PCR) Negative (NEGATIVE) Imaging Data Chest x-ray: Radiologist's impression: Patient Name: RAUL MULLEN MRN: [id number] date: 1950 Sex: M Assigned Patient Location: ER Current Patient Location: ER Accession/Order Number: [id number] Exam Date: 04/19/2023 16:28 Report Date: 04/19/2023 16:47 At the request of: CARY WISDOM Procedure: XR chest 1V 2 frontal AP portable erect CHEST RADIOGRAPH, 04/19/2023 4:28 PM EDT COMPARISON: Chest, 03/05/2023. CLINICAL HISTORY: shortness of breath Findings and impression: 1. No acute pulmonary disease. 2. Changes of COPD. 3. Stable microcardia. 4. No acute osseous abnormality. Electronically authenticated by: Carly GUSTAFSON Date: 04/19/2023 16:47 ECG Data Attestation: ?I have reviewed the pertinent ECG results. Interpretation: EKG interpretation: Emergency Department physician interpretation. Normal sinus rhythm at 82bpm. RIGHT axis. No ST segment elevation. Subtle ST depression in inferior leads. Discharge Plan Discharge Chief Complaint: Shortness of Breath/Dyspnea Clinical Impression: Acute exacerbation of chronic obstructive pulmonary disease Patient Disposition: Admitted as Observation Time of Disposition Decision: 17:43 Prescriptions / Home Meds: No Action famotidine 20 mg tablet 20 mg PO DAILY PRN (Reason: heart burn) theophylline 300 mg tablet extended release 12 hr 300 mg PO BID albuterol sulfate 90 mcg/actuation HFA aerosol inhaler 2 inh INHALATION Q6H PRN (Reason: shortness of breath or wheezing) cefdinir 300 mg capsule 600 mg PO QDAY 10 Days Qty: 20 0RF Additional Instructions: dr lawton, obs, medsurg Referrals: John Lawton MD [Primary Care Provider] - 1 week
--- NOTE | 2023-04-19 16:27 | PC.NURSE ---
radiology bedside for xr.
[2023-04-19] MEDS: METHYLPREDNISOLONE SOD SUCC PF 125 MG/2 ML VIAL IVP ×2 (16:43→22:32)
[2023-04-19 17:02] LABS: Basophils Absolute Auto 0.1 10^3/uL (0.0-0.1); Basophils Percent Auto 1.2 % (0.2-2.0); Eosinophils Absolute Auto 0.3 10^3/uL (0.0-0.7); Eosinophils Percent Auto 3.8 % (0.9-7.0); Hematocrit 43.2 % (42.0-54.0); Hemoglobin 14.3 g/dL (14.0-18.0); Immature Granulocytes Abs Auto 0.02 10^3/uL (0.00-0.03); Immature Granulocytes Pct Auto 0.3 % (0.0-0.5); Lymphocytes Absolute Auto 1.5 10^3/uL (1.2-3.8); Lymphocytes Percent Auto 21.5 % (20.5-60.0); Mean Corpuscular HGB Conc 33.1 g/dL (29.9-35.2); Mean Corpuscular Hemoglobin 30.5 pg (25.9-34.0); Mean Corpuscular Volume 92.1 fL (80.0-94.0); Mean Platelet Volume 9.3 fL (9.5-13.5); Monocytes Absolute Auto 0.7 10^3/uL (0.3-0.8); Monocytes Percent Auto 10.4 % (1.7-12.0); Neutrophils Absolute Auto 4.4 10^3/uL (1.4-6.5); Neutrophils Percent Auto 62.8 % (43.0-75.0); Platelet Count 240 10^3/uL (150-450); Red Blood Count 4.69 10^6/uL (4.70-6.10); Red Cell Distribution Width 14.2 % (11.0-15.0); White Blood Count 6.9 10^3/uL (4.0-11.0)
[2023-04-19 17:18] LABS: SARS-CoV-2 Ag NEGATIVE (NEGATIVE)
[2023-04-19] MEDS: IPRATROPIUM/ALBUTEROL SULFATE 3 ML AMPUL.NEB IH ×2 (17:23→22:19)
[2023-04-19 17:24] LABS: Anion Gap 14.1; BUN Creatinine Ratio 14.7; Calcium 8.4 mg/dL (8.5-10.1); Carbon Dioxide 21.8 mmol/L (21.0-32.0); Chloride 105 mmol/L (98-107); Estimated GFR (African America >60 (>=60); Estimated GFR (Non-African Ame >60 (>=60); Glucose 104 mg/dL (74-106); Potassium 3.9 mmol/L (3.5-5.1); Sodium 137 mmol/L (136-145); Troponin I High Sensitivity 7.6 pg/mL (4.0-76.1)
[2023-04-19] MEDS: THEOPHYLLINE 300 MG TAB.ER.12H PO (20:47)
[2023-04-19] MEDS: AMPICILLIN SODIUM/SULBACTAM NA 1.5 GM in 0.9 % SODIUM CHLORIDE 50 ML IV (20:47)
[2023-04-20] VITALS (11 sets, daily range): BP systolic 117–158; BP diastolic 56–107; PULSE 89–109; RESP 16–20; TEMP 36.4–36.9; O2SAT 93–96
[2023-04-20] MEDS: AMPICILLIN SODIUM/SULBACTAM NA 1.5 GM in 0.9 % SODIUM CHLORIDE 50 ML IV ×4 (01:56→20:18)
[2023-04-20] MEDS: FAMOTIDINE 20 MG TABLET PO (02:04)
[2023-04-20] MEDS: IPRATROPIUM/ALBUTEROL SULFATE 3 ML AMPUL.NEB IH ×4 (04:35→23:12)
[2023-04-20] MEDS: METHYLPREDNISOLONE SOD SUCC PF 125 MG/2 ML VIAL IVP ×4 (05:09→23:16)
[2023-04-20 05:25] LABS: Basophils Percent Auto 0.2 % (0.2-2.0); Hematocrit 40.1 % (42.0-54.0); Hemoglobin 12.9 g/dL (14.0-18.0); Immature Granulocytes Abs Auto 0.02 10^3/uL (0.00-0.03); Immature Granulocytes Pct Auto 0.3 % (0.0-0.5); Lymphocytes Absolute Auto 0.4 10^3/uL (1.2-3.8); Lymphocytes Percent Auto 5.8 % (20.5-60.0); Mean Corpuscular HGB Conc 32.2 g/dL (29.9-35.2); Mean Corpuscular Hemoglobin 30.1 pg (25.9-34.0); Mean Corpuscular Volume 93.7 fL (80.0-94.0); Mean Platelet Volume 9.4 fL (9.5-13.5); Monocytes Absolute Auto 0.1 10^3/uL (0.3-0.8); Monocytes Percent Auto 0.8 % (1.7-12.0); Neutrophils Absolute Auto 5.9 10^3/uL (1.4-6.5); Neutrophils Percent Auto 92.9 % (43.0-75.0); Platelet Count 284 10^3/uL (150-450); Red Blood Count 4.28 10^6/uL (4.70-6.10); Red Cell Distribution Width 14.1 % (11.0-15.0); White Blood Count 6.3 10^3/uL (4.0-11.0)
[2023-04-20 05:43] LABS: Anion Gap 15.4; BUN Creatinine Ratio 15.7; Calcium 8.6 mg/dL (8.5-10.1); Carbon Dioxide 21.1 mmol/L (21.0-32.0); Chloride 103 mmol/L (98-107); Estimated GFR (African America >60 (>=60); Estimated GFR (Non-African Ame 56 (>=60); Glucose 267 mg/dL (74-106); Potassium 3.5 mmol/L (3.5-5.1); Sodium 136 mmol/L (136-145); Theophylline 3.8 ug/mL (10.0-20.0)
--- NOTE | 2023-04-20 08:31 | P.HP_ITS ---
H&P: HPI History of Present Illness Chief complaint: sob, weakness hx copd Narrative: Patient describes acute onset of shortness of breath, helped a little bit with his aerosol treatment, but still persisting shortness of breath and progressive shortness of breath. Increasing cough with some sputum production more white though. Presented to emergency room. Not hypoxic but significant wheezing on exam. Unable to break in ER, admitted for further work-up and treatment Review of Systems ROS Status of ROS 10 or more systems reviewed and unremarkable except as noted in history and below PFSH [facility] Medical History (Updated 04/19/23 @ 16:59 by Kishore Ledezma) Arthritis ?M19.90 - Unspecified osteoarthritis, unspecified site (ICD-10) Blood clot in vein ?I82.90 - Acute embolism and thrombosis of unspecified vein (ICD-10) Chronic bronchitis ?J42 - Unspecified chronic bronchitis (ICD-10) COPD exacerbation ?J44.1 - Chronic obstructive pulmonary disease with (acute) exacerbation (ICD-10) Emphysema lung ?J43.9 - Emphysema, unspecified (ICD-10) Hiatal hernia ?K44.9 - Diaphragmatic hernia without obstruction or gangrene (ICD-10) Tuberculosis ?A15.9 - Respiratory tuberculosis unspecified (ICD-10) Family History (Updated 03/05/23 @ 20:18 by Chela Yañez RN) Other Family history of CHF (congestive heart failure) Family history of COPD (chronic obstructive pulmonary disease) Family history of diabetes mellitus Family history of myocardial infarction Social History (Updated 03/05/23 @ 20:23 by Chela Yañez RN) Within the past year, how often did you have a drink containing alcohol: never Score interpretation: A score less than 4 is consistent with normal alcohol consumption. Smoking status: Current every day smoker Non-prescribed substance use: denies use Highest level of school completed/degree received: GED or equivalent Little interest or pleasure in doing things: not at all Feeling down, depressed, or hopeless: not at all Feel stressed/tense/nervous/anxious/difficulty sleeping: not at all Meds Home Medications and Allergies Home Medications Medication Instructions Recorded Confirmed Type albuterol sulfate 90 mcg/actuation 2 inh inhalation Q6H PRN shortness 03/05/23 04/19/23 History aerosol inhaler of breath or wheezing theophylline 300 mg 300 mg PO BID 03/05/23 04/19/23 History tablet,extended release,12 hr albuterol sulfate 2.5 mg/3 mL 2.5 mg inhalation Q6H PRN 04/19/23 04/19/23 Hi story (0.083 %) solution for nebulization shortness of breath or wheezing famotidine 20 mg tablet 20 mg PO DAILY PRN heart burn 04/19/23 04/19/23 History mometasone-formoterol HFA 200 2 inh inhalation BID 04/19/23 04/19/23 History mcg-5 mcg/actuation aerosol inhaler (Dulera) Allergies Allergy/AdvReac Type Severity Reaction Status Date / Time prednisone AdvReac Severe Weakness Verified 04/19/23 16:07 vitamin C AdvReac Severe Hives Uncoded 04/19/23 16:07 Exam Constitutional Vital Signs, click to edit/add: Last Vital Signs Temp 97.9 F 04/20/23 05:31 Pulse 99 H 04/20/23 05:31 Resp 18 04/20/23 05:31 BP 145/66 H 04/20/23 05:31 Pulse Ox 93 L 04/20/23 05:31 O2 Del Method Room Air 04/20/23 05:31 O2 Flow Rate 74 04/19/23 17:25 Documenting provider has reviewed patient's vital signs: yes Common normals: apparent distress General appearance: in distress HENMT Common normals: normocephalic Chest Common normals: inspection of chest normal Respiratory Common normals: abnormal respiratory effort Effort & inspection: respiratory distress; not able to speak in complete sentences Auscultation: rhonchi and diminished lung sounds Cardio Common normals: regular rate, regular rhythm and no murmurs GI Common normals: Normal to inspection, nondistended, normoactive bowel sounds present Results Labs Labs: Short CBC 04/19/23 04/20/23 Range/Units 16:55 04:33 WBC 6.9 6.3 (4.0-11.0) 10^3/uL Hgb 14.3 12.9 L (14.0-18.0) g/dL Hct 43.2 40.1 L (42.0-54.0) % Plt Count 240 284 (150-450) 10^3/uL BMP 04/19/23 04/20/23 16:55 04:33 Sodium 137 136 Potassium 3.9 3.5 Chloride 105 103 Carbon Dioxide 21.8 21.1 BUN 16.0 20.0 H Creatinine 1.09 1.27 Glucose 104 267 H Calcium 8.4 L 8.6 Assessment and Plan Assessment and Plan (1) COPD exacerbation: (2) Arthritis: (3) Chronic bronchitis: (4) Emphysema lung: (5) Hiatal hernia: Plan Respiratory distress, sinus tachycardia secondary to a acute exacerbation of COPD with acute bronchitis but without hypoxia. Lung exam significantly changed from his baseline. Normally he is clear to examination but with distant breath sounds, severe rhonchi persisting this morning. With acute onset of the shortness of breath and chest pain, check CTA, possible pulmonary embolism. Continue with antibiotics and steroids Iron deficiency anemia-monitor daily Hyperglycemia secondary to steroid use, will try to keep the steroid dose low but needs insulin sliding scale Acute kidney injury-somewhat elevated today, will monitor daily, reviewed medications Patient has significantly improved overnight. At least 1 more day is likely. Change of plans may occur with CTA results.
--- NOTE | 2023-04-20 08:31 | CM.NOTE ---
Pt. audibly wheezing during rounding with Dr. Bhagat. Dr. Bhagat discussed low theophylline level with patient. Pt. is currently on room air. Dr. Bhagat discussed possibility of CT of chest, sputum culture and possible discharge later today if feeling better or tomorrow, the patient states I will see you tomorrow. No anticipated discharge needs. Will continue to follow.
--- NOTE | 2023-04-20 08:37 | CT_ITS ---
[address] [address] Patient Name: RAUL MULLEN MRN: [id number] date: 1950 Sex: M Assigned Patient Location: MS Current Patient Location: MS Accession/Order Number: [id number] Exam Date: 04/20/2023 08:50 Report Date: 04/20/2023 09:39 At the request of: DEZ RODRIGUEZ Procedure: CT angio chest EXAMINATION: CT angio chest HISTORY: chest pain , shortness of breath with exertion COMPARISON: CTA chest 08/10/2022 TECHNIQUE: Multi-planar CT images were created with IV contrast. Axial, Coronal, and Sagittal images. Dose reduction techniques were achieved by using automated exposure control and/or adjustment of mA and/or kV according to patient size and/or use of iterative reconstruction technique. 3-D reconstruction was performed on a separate workstation. FINDINGS: VASCULATURE: No pulmonary embolism or abnormal opacity. LUNGS: No visible pulmonary disease. PLEURA: No mass, effusion, or pneumothorax. SÁNCHEZ: No mass or adenopathy. MEDIASTINUM: No mass or adenopathy. CARDIAC: No enlargement, pericardial effusion, or pericardial thickening. AORTA: No aneurysm or dissection. CHEST WALL: No mass or axillary adenopathy. BONES: No bone lesion or fracture. LIMITED ABDOMEN: No suspicious findings. Limited images of the upper abdomen. OTHER: Negative. CT/CT angio chest IMPRESSION: 1. No pulmonary embolism. 2. No acute infiltrates or significant chronic interstitial changes. Electronically authenticated by: CORRINE ROMEO Date: 04/20/2023 09:39
[2023-04-20] MEDS: THEOPHYLLINE 300 MG TAB.ER.12H PO ×2 (08:45→20:18)
[2023-04-20] MEDS: BUDESONIDE 0.5 MG/2 ML AMPULE NEB IH ×2 (10:53→23:13)
[2023-04-20 10:58] LABS: Glucometer 197 mg/dL (74-106)
[2023-04-20] MEDS: INSULIN ASPART 300 UNIT/3 ML PEN SUBQ ×3 (11:17→21:35)
--- NOTE | 2023-04-20 11:19 | SWNOTE1 ---
SW met with pt to discuss dc needs. Pt lives at home with his . Pt is indepedent at home and is out and about, very active. Pt does not use any DME. At this time pt denies any discharge needs. OLEGARIO reviewed JOHNSON form with pt, he voiced understanding, no questions. Pt signed form, original given to pt and copy placed on chart.
[2023-04-20 16:04] LABS: Glucometer 176 mg/dL (74-106)
[2023-04-20 16:05] LABS: SARS-CoV-2 NAA NOT DETECTED (NOT DETECTE)
[2023-04-20] MEDS: CALCIUM CARBONATE 500 MG (200MG ELEMENTAL) TAB CHEW PO ×2 (18:50→23:16)
[2023-04-20 20:44] LABS: Glucometer 281 mg/dL (74-106)
[2023-04-21] MEDS: AMPICILLIN SODIUM/SULBACTAM NA 1.5 GM in 0.9 % SODIUM CHLORIDE 50 ML IV ×2 (02:26→08:40)
[2023-04-21] MEDS: FAMOTIDINE 20 MG TABLET PO (02:33)
[2023-04-21 04:25] VITALS: PULSE 91; RESP 18; O2SAT 98
[2023-04-21] MEDS: IPRATROPIUM/ALBUTEROL SULFATE 3 ML AMPUL.NEB IH (04:25)
[2023-04-21 04:35] VITALS: PULSE 88; RESP 18; O2SAT 96
[2023-04-21] MEDS: METHYLPREDNISOLONE SOD SUCC PF 125 MG/2 ML VIAL IVP (04:42)
[2023-04-21 05:17] LABS: Hematocrit 40.9 % (42.0-54.0); Hemoglobin 13.4 g/dL (14.0-18.0); Mean Corpuscular HGB Conc 32.8 g/dL (29.9-35.2); Mean Corpuscular Hemoglobin 30.2 pg (25.9-34.0); Mean Corpuscular Volume 92.1 fL (80.0-94.0); Mean Platelet Volume 9.1 fL (9.5-13.5); Platelet Count 319 10^3/uL (150-450); Red Blood Count 4.44 10^6/uL (4.70-6.10)
[2023-04-21 05:26] VITALS: BP 124/55; PULSE 91; RESP 18; TEMP 36.5; O2SAT 94
[2023-04-21 05:46] LABS: BUN Creatinine Ratio 18.3; Carbon Dioxide 21.5 mmol/L (21.0-32.0); Chloride 103 mmol/L (98-107); Estimated GFR (African America >60 (>=60); Estimated GFR (Non-African Ame 60 (>=60); Glucose 148 mg/dL (74-106); Magnesium 2.2 mg/dL (1.8-2.4); Potassium 4.5 mmol/L (3.5-5.1); Sodium 135 mmol/L (136-145); Theophylline 5.6 ug/mL (10.0-20.0)
[2023-04-21 08:36] LABS: Red Cell Distribution Width 14.3 % (11.0-15.0)
[2023-04-21] MEDS: THEOPHYLLINE 300 MG TAB.ER.12H PO (08:40)
--- NOTE | 2023-04-21 08:50 | CM.NOTE ---
Rounds made with Dr. Bhagat, ok for discharge to home today. No discharge needs identified, Dr. Bhagat told pt to just keep his appt scheduled for May to follow-up unless develops other problems.
--- NOTE | 2023-04-21 09:04 | P.DS_ITS ---
DS: Providers Provider Date of admission: 04/19/23 18:02 Primary care physician: John Bhagat MD DS: Diagnosis Discharge Diagnosis (1) COPD exacerbation: (2) Arthritis: (3) Chronic bronchitis: (4) Emphysema lung: (5) Hiatal hernia: Plan Respiratory distress, sinus tachycardia secondary to a acute exacerbation of COPD with acute bronchitis but without hypoxia. Lung exam significantly changed from his baseline. Normally he is clear to examination but with distant breath sounds, severe rhonchi persisting this morning. With acute onset of the shortness of breath and chest pain, check CTA, possible pulmonary embolism. Continue with antibiotics and steroids Iron deficiency anemia-monitor daily Hyperglycemia secondary to steroid use, will try to keep the steroid dose low but needs insulin sliding scale Acute kidney injury-somewhat elevated today, will monitor daily, reviewed medications Patient has significantly improved overnight. At least 1 more day is likely. Change of plans may occur with CTA results. ? DS: Summary Hospital Course Hospital Course: Patient been treated as an outpatient with oral prednisone and antibiotics. Guido swenson condition continued to deteriorate. Presented to the emergency room with acute exacerbation of his COPD-no hypoxia, unable to improve wheezing in the emergency room with frequent aerosol treatments and he had already been treated as an outpatient with prednisone and antibiotics orally. Patient was admitted for IV therapy. Patient does tolerate IV steroids so I did provide that to him. IV antibiotics and frequent aerosol treatments. The first day he was somewhat improved but not significantly with ambulation. Following morning patient was much improved. Still has some wheezing which he probably has maintained throughout as long as he continues to smoke. Does ambulate better so will be discharged home in improving condition. Medications see list. Follow-up with me in the office as needed. If he continues to improve he can just keep his routine visit in a month. Status at Discharge Overall status at discharge: patient is not back to baseline Time Spent with Patient Time attestation: Total time spent providing and/or coordinating discharge services: Exam Constitutional Vital Signs, click to edit/add: Last Vital Signs Temp 97.7 F 04/21/23 05:26 Pulse 91 H 04/21/23 05:26 Resp 18 04/21/23 05:26 BP 124/55 04/21/23 05:26 Pulse Ox 94 L 04/21/23 05:26 O2 Del Method Room Air 04/21/23 05:26 O2 Flow Rate 74 04/19/23 17:25 Documenting provider has reviewed patient's vital signs: yes Common normals: apparent distress General appearance: in distress [facility] Common normals: normocephalic Chest Common normals: inspection of chest normal Respiratory Common normals: abnormal respiratory effort Effort & inspection: respiratory distress; not able to speak in complete sentences Auscultation: rhonchi (Better air exchange) and diminished lung sounds Cardio Common normals: regular rate, regular rhythm and no murmurs GI Common normals: Normal to inspection, nondistended, normoactive bowel sounds present DS: Data Data Completed and Pending Labs on day of discharge: Labs from last 24 hours 04/21/23 04/20/23 04/20/23 04:08 20:42 16:02 WBC 17.0 H RBC 4.44 L Hgb 13.4 L Hct 40.9 L MCV 92.1 MCH 30.2 MCHC 32.8 RDW 14.3 Plt Count 319 MPV 9.1 L Sodium 135 L Potassium 4.5 Chloride 103 Carbon Dioxide 21.5 Anion Gap 15.0 BUN 22.0 H Creatinine 1.20 Est GFR ( Amer) >60 Est GFR (Non-Af Amer) 60 BUN/Creatinine Ratio 18.3 Glucose 148 H Calcium 9.0 Magnesium 2.2 Theophylline 5.6 L SARS-CoV-2 RNA ([place]) POC Glucose 281 H 176 H 04/20/23 04/19/23 10:57 17:04 WBC RBC Hgb Hct MCV MCH MCHC RDW Plt Count MPV Sodium Potassium Chloride Carbon Dioxide Anion Gap BUN Creatinine Est GFR ( Amer) Est GFR (Non-Af Amer) BUN/Creatinine Ratio Glucose Calcium Magnesium Theophylline SARS-CoV-2 RNA ([place]) Not detected POC Glucose 197 H Discharge Plan Discharge Disposition: Home, Self-Care Discharge Medications: New amoxicillin-pot clavulanate 875-125 mg tablet 1 tab PO Q12H Qty: 20 0RF theophylline 300 mg tablet extended release 12 hr 300 mg PO TID Qty: 90 11RF Continued famotidine 20 mg tablet 20 mg PO DAILY PRN (Reason: heart burn) albuterol sulfate 2.5 mg /3 mL (0.083 %) solution for nebulization 2.5 mg inhalation Q6H PRN (Reason: shortness of breath or wheezing) Dulera 200-5 mcg/actuation HFA aerosol inhaler 2 inh inhalation BID albuterol sulfate 90 mcg/actuation HFA aerosol inhaler 2 inh INHALATION Q6H PRN (Reason: shortness of breath or wheezing) Discontinued theophylline 300 mg tablet extended release 12 hr 300 mg PO BID Activity: resume usual activities as tolerated Diet: advance to your usual diet Patient Instructions: Theophylline (By mouth), Amoxicillin/Clavulanate Potassium (By mouth), COPD (Chronic Obstructive Pulmonary Disease) (DC) Forms: Portal Instructions Follow Up Appointments: Follow up appt. with Dr. Bhagat on . Apr.27 @ 9:15am Office #: [phone] Discharge Date/Time: 04/21/23 10:25
[2023-04-21 10:37] LABS: Band Neutrophils Absolute 0.2 10^3/uL (0.0-0.3); Lymphocytes Absolute Manual 0.51 10^3/uL (1.20-3.80); Monocytes Absolute Manual 0.68 10^3/uL (0.30-0.80); Segmented Neut Absolute Manual 15.64 10^3/uL (1.4-6.5)
--- NOTE | 2023-04-24 13:22 | CM.DCFOLLOWU ---
Person spoke with: Srini How are you feeling? Good How is your pain? No pain Did you understand your discharge instructions? Yes Do you have any questions about your discharge instructions? No Were you given any prescriptions at discharge? Yes Were you able to get your prescriptions filled? Yes Do you understand how to take your medications as ordered? Yes Do you have any questions about your follow up appointment and do you plan to keep your follow up appointment? Thurs with Dr. Bhagat, plan on going to appt. Is there anything else that you would like to discuss? No Questions/Comments/Concerns/Other:
== END 2023-04-21 10:25 | disposition home or self-care (01) ==
LOC: ER 17:45 → MS 18:05
PROVIDERS: Admitting Provider Family Medicine; Emergency Provider Emergency Medicine; PCP Family Medicine; Visit Provider Family Medicine
DX: J20.9 Acute bronchitis, unspecified (principal); J43.9 Emphysema, unspecified; R06.03 Acute respiratory distress; R00.0 Tachycardia, unspecified; N17.9 Acute kidney failure, unspecified; R73.9 Hyperglycemia, unspecified; T38.0X5A Adverse effect of glucocorticoids and synthetic analogues, initial encounter; D50.9 Iron deficiency anemia, unspecified; M19.90 Unspecified osteoarthritis, unspecified site; F17.210 Nicotine dependence, cigarettes, uncomplicated; Z79.899 Other long term (current) drug therapy; K44.9 Diaphragmatic hernia without obstruction or gangrene; Z20.822 Contact with and (suspected) exposure to COVID-19
CPT/HCPCS: 36415; 71045; 71275; 80048; 80198; 82948; 83735; 83880; 84484; 85025; 85027; 87070; 87635; 87811; 93005; 94640; 94667; 94668; 94761; 96365; 96366; 96375; 96376; 99285; G0378; J2930; Q9967

== ENCOUNTER 2023-06-02 14:58 | Outpatient (OUT) | payer MEDICARE, SELFPAY ==
[2023-06-02 15:49] LABS: Basophils Absolute Auto 0.1 10^3/uL (0.0-0.1); Basophils Percent Auto 0.8 % (0.2-2.0); Eosinophils Absolute Auto 0.1 10^3/uL (0.0-0.7); Eosinophils Percent Auto 1.5 % (0.9-7.0); Hematocrit 44.9 % (42.0-54.0); Hemoglobin 14.6 g/dL (14.0-18.0); Immature Granulocytes Abs Auto 0.02 10^3/uL (0.00-0.03); Immature Granulocytes Pct Auto 0.2 % (0.0-0.5); Lymphocytes Absolute Auto 1.5 10^3/uL (1.2-3.8); Lymphocytes Percent Auto 16.3 % (20.5-60.0); Mean Corpuscular HGB Conc 32.5 g/dL (29.9-35.2); Mean Corpuscular Hemoglobin 30.3 pg (25.9-34.0); Mean Corpuscular Volume 93.2 fL (80.0-94.0); Monocytes Absolute Auto 0.9 10^3/uL (0.3-0.8); Monocytes Percent Auto 9.7 % (1.7-12.0); Neutrophils Absolute Auto 6.4 10^3/uL (1.4-6.5); Neutrophils Percent Auto 71.5 % (43.0-75.0); Platelet Count 332 10^3/uL (150-450); Red Blood Count 4.82 10^6/uL (4.70-6.10); White Blood Count 8.9 10^3/uL (4.0-11.0)
[2023-06-02 15:58] LABS: Estimated Average Glucose 108 mg/dL; Glycohemoglobin A1C 5.4 % (4.5-6.2)
[2023-06-02 16:09] LABS: Alanine Aminotransferase 26 U/L (16-63); Albumin Globulin Ratio 1.1; Albumin Level 3.8 g/dL (3.4-5.0); Alkaline Phosphatase 146 U/L (46-116); Anion Gap 13.4; Aspartate Amino Transferase 12 U/L (15-37); BUN Creatinine Ratio 11.5; Bilirubin Total 0.6 mg/dL (0.2-1.0); Carbon Dioxide 27.6 mmol/L (21.0-32.0); Chloride 103 mmol/L (98-107); Chol HDL Ratio 2.6; Cholesterol 171 mg/dL (<=200); Estimated GFR (African America >60 (>=60); Estimated GFR (Non-African Ame >60 (>=60); Free T3 3.01 pg/mL (2.18-3.98); Globulin 3.6 g/dL; Glucose 88 mg/dL (74-106); HDL Cholesterol 65 mg/dL (40-60); Sodium 140 mmol/L (136-145); Thyroid Stimulating Hormone 1.641 uIU/mL (0.358-3.740); Total Protein 7.4 g/dL (6.4-8.2); Triglycerides 47 mg/dL (<=150); VLDL CHOLESTEROL 9.4 mg/dL
[2023-06-02 16:11] LABS: Prostate Specific Antigen Scrn 1.81 ng/mL (<=4.00)
[2023-06-04 13:07] LABS: Insulin 5.2 uIU/mL (2.6-24.9)
== END 2023-06-02 14:59 | disposition home or self-care (01) ==
PROVIDERS: PCP Family Medicine; Visit Provider Family Medicine
DX: I77.9 Disorder of arteries and arterioles, unspecified (principal); D50.9 Iron deficiency anemia, unspecified; J43.9 Emphysema, unspecified; E78.5 Hyperlipidemia, unspecified; R73.09 Other abnormal glucose; Z12.5 Encounter for screening for malignant neoplasm of prostate; Z12.12 Encounter for screening for malignant neoplasm of rectum
CPT/HCPCS: 36415; 80053; 80061; 83036; 83525; 84436; 84443; 84481; 85025; G0103

== ENCOUNTER 2023-07-05 14:45 | Emergency (ER) | payer MEDICARE, SELFPAY ==
[2023-07-05] VITALS (8 sets, daily range): BP systolic 129–148; BP diastolic 72–75; PULSE 76–90; RESP 19–34; TEMP 36.8; O2SAT 95–99; BMI 26.9
--- NOTE | 2023-07-05 14:59 | XR_ITS ---
The [address] [address] Patient Name: RAUL MULLEN MRN: [id number] date: 1950 Sex: M Assigned Patient Location: ER Current Patient Location: ER Accession/Order Number: [id number] Exam Date: 07/05/2023 15:10 Report Date: 07/05/2023 15:26 At the request of: OTILIO JLUIAN Procedure: XR chest 2V EXAM: Chest x-ray HISTORY: . cough . COMPARISON: 04/19/2023 TECHNIQUE: Frontal and lateral chest. FINDINGS: Heart and vascularity are unremarkable. There is hyperexpansion of lungs and flattening of the hemidiaphragms suggesting COPD. Lungs are free of focal infiltrates. Atherosclerotic changes of the thoracic aorta are noted. No acute bony abnormality is appreciated. XR/XR chest 2V Impression: No acute heart or lung disease identified. Electronically authenticated by: IZABEL GREENWOOD Date: 07/05/2023 15:26
[2023-07-05 15:20] LABS: Influenza Virus A Antigen Negative; Influenza Virus B Antigen Negative; Internal Control Within Normal Limits; SARS-CoV-2 Ag NEGATIVE (NEGATIVE)
--- OUTSIDE RECORDS SUMMARY | 2023-07-05 15:29 | XMS_ITS | CCD ---
Author Name Unknown Address [address] [place] [address] Organization [facility] Care Team Providers Care Scowman Name Role Phone PHYSICIAN, DEFAULT Unavailable Unavailable PHYSICIAN, DEFAULT Unavailable Unavailable DEZ BHAGAT Unavailable Unavailable Dez Bhagat MD Primary Care Provider [phone] MICHAEL ., DR GARCES Attending Unavailable HOY ., DR GARCES Admitting Unavailable HOY ., DR GARCES Primary Care Unavailable HOY ., DR GARCES Consulting Unavailable ZIEBDEJON, DR CORRINE Bull Consulting Unavailable HOY ., DR GARCES Attending Unavailable HOY ., DR GARCES Admitting Unavailable HOY ., DR GARCES Primary Care Unavailable HOY ., DR GARCES Consulting Unavailable MAITE FRAZIER Consulting Unavailable SAMANTHA BUTLER Admitting Unavailable SAMANTHA BUTLER Consulting Unavailable SAMANTHA BUTLER Attending Unavailable MICHAEL ., DR GARCES Primary Care Unavailable Dez Bhagat MD Primary Care Provider [phone] DEZ BHAGAT Primary Care Unavailable MICHAEL DEZ Manoj Primary Care Unavailable MICHAEL DEZ M Attending Unavailable SEVENY, DEZ M Referring Unavailable HOY, DEZ M Primary Care Unavailable SEVENY, DEZ M Attending Unavailable HOY, DEZ M Referring Unavailable HOY, DEZ M Primary Care Unavailable MARISA OVERTON Attending Unavailable HOY, DEZ M Primary Care Unavailable Allergies Allergy Classification Reported Allergen(s) Allergy Type Date of Onset Reaction(s) Facility (5 sources) Ascorbic Acid Drug Allergy 8 [facility] (3 sources) predniSONE Drug Allergy 2 [facility] (1 source) Ascorbic Acid Drug Allergy 3 [facility] (1 source) predniSONE Drug Allergy 6 [facility] (2 sources) Ketorolac Propensity to adverse reactions to drug 4 Nausea and Vomiting [facility] (2 sources) Prednisone Propensity to adverse reactions to drug 8 [facility] Medications Current Medications Medication Drug Class(es) Dates Sig (Normalized) Sig (Original) albuterol 0.83 mg/ml inhalation solution (10 sources) beta2-Adrenergic Agonist take 2.5 mg by inhalation every six hours as needed albuterol (2.5 MG/3ML) 0.083% inhalation solution Take 2.5 mg by nebulization every 6 hours as needed for Shortness of Breath. 0 Active take 1 puff(s) by in halation every six hours as needed albuterol 108 (90 Base) MCG/ACT Aero Yakelin n inhaler Inhale 1 puff every 6 hours as needed for Shortness of Breath. 0 Active amoxicillin 875 mg / clavulanate 125 mg oral tablet (2 sources) Penicillin-class Antibacterial Start: 08-15-2022 take 1 tablet by mouth every twelve hours Amoxicillin-clavulanate 875-125 MG tablet Take 1 tablet by mouth every 12 hours. 0 08/15/2022 Active cefdinir 300 mg oral capsule (2 sources) Cephalosporin Antibacterial Start: 08-01-2022 take 2 capsules by mouth once daily Cefdinir (OMNICEF) 300 MG capsule Take 2 capsules by mouth daily. 0 08/01/2022 Active 60 actuat formoterol fumarate 0.005 mg/actuat / mometasone furoate 0.2 mg/actuat metered dose inhaler (5 sources) Corticosteroid, beta2-Adrenergic Agonist take 2 puff(s) by inhalation every twelve hours mometasone Furo-Formoterol Fum 200-5 MCG/puff Aerosol Inhale 2 puffs every 12 hours. 0 Active levoFLOXacin 750 mg oral tablet (5 sources) Quinolone Antimicrobial Start: 06-17-2022 take 1 tablet by mouth once daily levoFLOXacin 750 MG tablet Take 1 tablet by mouth daily. 0 06/17/2022 Active Start: 08-02-2021 End: 08-06-2021 take 1 tablet by mouth once daily levoFLOXacin 500 MG tablet Take 1 tablet by mouth daily for 4 days. 4 tablet 0 08/02/2021 08/06/2021 Active Start: 08-01-2021 End: 08-02-2021 take 750 mg intravenously every twenty-four hours 750 mg, Intravenous, Administer over 90 Minutes, EVERY 24 HOURS, First dose on 08/01/21 at 1500, Until Discontinued Start: 07-31-2021 End: 07-31-2021 take 750 mg intravenously every twenty-four hours levoFLOXacin (LEVAQUIN) 750 mg in dextrose 5% premix IVPB predniSONE 10 mg oral tablet (3 sources) Start: 08-15-2022 take 4 tablets by mouth once daily in the morning, then take 3 tablets by mouth once daily, then take 2 tablets by mouth once daily, then take 1 tablet by mouth once daily, then take 0.5 tablet by mouth once daily predniSONE 10 MG tablet TAKE 4 TABLETS BY MOUTH ONCE DAILY IN THE MORNING FOR 3 DAYS THEN 3 ONCE DAILY FOR 3 DAYS THEN 2 ONCE DAILY FOR 3 DAYS THEN 1 ONCE DAILY FOR 3 DAYS THEN 1/2 (ONE-HALF) ONCE DAILY FOR 3 DAYS 0 08/15/2022 Active Start: 08-02-2021 End: 08-13-2021 take 2 tablets by mouth twice daily, then take 1 tablet by mouth twice daily, then take 0.5 tablet by mouth twice daily predniSONE 20 MG tablet Take 2 tablets by mouth 2 times daily for 3 days, THEN 1 tablet 2 times daily for 4 days, THEN 0.5 tablets 2 times daily for 4 days. 24 tablet 0 08/02/2021 08/13/2021 Active theophylline 300 mg extended release oral tablet (2 sources) Methylxanthine Start: 08-16-2022 take 1 tablet by mouth twice daily theophylline 300 MG Tab SR 12 HR TAKE 1 TABLET BY MOUTH TWICE DAILY GIVE ON AN EMPTY STOMACH. DO NOT CRUSH OR CHEW 0 08/16/2022 Active Completed/Discontinued Medications Medication Drug Class(es) Dates Sig (Normalized) Sig (Original) acetaminophen 325 mg oral tablet (1 source) Start: 07-31-2021 End: 08-02-2021 take 325-650 mg by mouth every four hours as needed 325-650 mg, Oral, EVERY 4 HOURS NEEDED, Starting on 07/31/21 at 1533, Until 08/02/21 at 1844, Mild Pain Maximum dose of acetaminophen is 4000 mg from all sources in 24 hours. acetylcysteine 600 mg oral capsule (1 source) Antidote, Mucolytic, Antidote for Acetaminophen Overdose Start: 07-31-2021 End: 08-02-2021 Acetylcysteine (NAC) capsule 1,200 mg albuterol 0.833 mg/ml / ipratropium bromide 0.167 mg/ml inhalation solution (5 sources) Anticholinergic, beta2-Adrenergic Agonist Start: 08-02-2021 End: 08-02-2021 ipratropium-albuter ol (DUONEB) 0.5-2.5 (3) MG/3ML nebulizer solution 3 mL Start: 07-31-2021 End: 08-02-2021 take 3 mL by inhalation every four hours as needed 3 mL, Nebulization, EVERY 4 HOURS NEEDED, Starting on 07/31/21 at 1533, Until 08/02/21 at 1844, Shortness of Breath Start: 07-31-2021 End: 07-31-2021 ipratropium-albuterol (DUONE B) 0.5-2.5 (3) MG/3ML nebulizer solution 3 mL Start: 07-31-2021 End: 07-31-2021 ipratropium-albuterol (DUONE B) 0.5-2.5 (3) MG/3ML nebulizer solution 3 mL benzonatate 100 mg oral capsule (1 source) Non-narcotic Antitussive Start: 08-01-2021 End: 08-01-2021 benzonatate (TESSALON) capsule 100 mg cholecalciferol 0.025 mg oral tablet (1 source) Vitamin D Start: 08-01-2021 End: 08-02-2021 cholecalciferol (VITAMIN D3) tablet 1,000 Units 0.4 ml enoxaparin sodium 100 mg/ml prefilled syringe (1 source) Low Molecular Weight Heparin Start: 08-01-2021 End: 08-02-2021 inject 40 mg by subcutaneous injection once daily 40 mg, Subcutaneous, DAILY, First dose on 08/01/21 at 0900, Until Discontinued, Indications: DVT/PE prophylaxis iohexol (OMNIPAQUE) 350 MG/ML injection 75 mL (2 sources) Start: 05-11-2023 End: 05-11-2023 iohexol (OMNIPAQUE) 350 MG/ML injection 75 mL Start: 07-31-2021 End: 07-31-2021 iohexol (OMNIPAQUE) 350 MG/M L injection 75 mL labetalol hydrochloride 5 mg/ml injectable solution (1 source) beta-Adrenergic Jordy Start: 07-31-2021 End: 08-02-2021 take 20 mg intravenously every four hours as needed 20 mg, Intravenous, EVERY 4 HOURS NEEDED, Starting on 07/31/21 at 1533, Until 08/02/21 at 1844, systolic blood pressure greater than 160 Administration duration: up to 20 mg over 2 minutes. 50 ml magnesium sulfate 40 mg/ml injection (1 source) Start: 08-01-2021 End: 08-02-2021 2 g, Intravenous, Administer over 4 Hours, DAILY, First dose on 08/01/21 at 0600, Until Discontinued Give if magnesium is less than 2 on morning labs. Infuse at a rate of 0.5 gm/hour. methylPREDNISolone 40 mg injection (1 source) Corticosteroid Start: 08-01-2021 End: 08-02-2021 methylPREDNISolone sodium succinate (SOLU-MEDROL) injection 80 mg 2 ml ondansetron 2 mg/ml injection (3 sources) Serotonin-3 Receptor Antagonist Start: 07-31-2021 End: 08-02-2021 take 4 mg intravenously every four hours as needed 4 mg, Intravenous, EVERY 4 HOURS NEEDED, Starting on 07/31/21 at 1533, Until 08/02/21 at 1844, Nausea / Vomiting Start: 07-31-2021 End: 07-31-2021 ondansetron 4mg/2ml (ZOFRAN) injection 4 mg Start: 07-31-2021 End: 07-31-2021 ondansetron 4mg/2ml (ZOFRAN) injection 4 mg pantoprazole 40 mg delayed release oral tablet (1 source) Proton Pump Inhibitor Start: 08-01-2021 End: 08-02-2021 take 40 mg by mouth once daily 40 mg, Oral, DAILY, First dose on 08/01/21 at 0900, Until Discontinued Do not crush. Indications: Inpt Stress Ulcer Prophylaxis Potassium Chloride (1 source) Start: 07-31-2021 End: 08-02-2021 potassium chloride (K-DUR) tablet ER 40 mEq potassium phosphates 30 mmol in sodium chloride 0.9%, with overfill 535 mL (total volume) IVPB (1 source) Start: 07-31-2021 End: 08-02-2021 30 mmol, Intravenous, Administer over 6 Hours, NEEDED, Starting on 07/31/21 at 1533, Until 08/02/21 at 1844, Other, If phospate <2.5, give 30mmol Extravasation Risk 1000 ml sodium chloride 9 mg/ml injection (4 sources) Start: 05-11-2023 End: 05-11-2023 Sodium chloride 0.9% IV solution 75 mL Start: 07-31-2021 End: 08-02-2021 Intravenous, at 75 mL/hr, CO NTINUOUS, Starting on 07/31/21 at 1545, Until 08/02/21 at 1844 Start: 07-31-2021 End: 07-31-2021 sodium chloride 0.9% IV solu tion 75 mL Start: 07-31-2021 End: 07-31-2021 sodium chloride 0.9% IV solu tion 500 mL Problems Active Problems Problem Classification Problem Date Documented Da te Episodic/Chronic Abdominal pain (1 source) Right upper quadrant pain; Translations: [Right upper quadrant pain] Episodic Chronic obstructive pulmonary disease and bronchiectasis (9 sources) Acute exacerbation of chronic obstructive airways disease; Translations: [Chronic obstructive pulmonary disease with (acute) exacerbation] Onset: 08-01-2021 Chronic Esophageal disorders (1 source) Gastro-esophageal reflux disease without esophagitis; Translations: [GERD WITHOUT ESOPHAGITIS] Onset: 07-21-2022 Chronic Nutritional deficiencies (6 sources) Vitamin D deficiency; Translations: [Vitamin D deficiency, unspecified] Onset: 08-01-2021 Chronic Other nutritional; endocrine; and metabolic disorders (6 sources) Hypoalbuminemia; Translations: [Other disorders of plasma-protein metabolism, not elsewhere classified] Onset: 08-01-2021 Chronic Other skin disorders (2 sources) Mass of neck; Translations: [Localized swelling, mass and lump, neck] 04-10-2023 Episodic Other skin disorders (2 sources) Localized swelling, mass and lump, neck; Translations: [Localized swelling, mass and lump, neck] Onset: 05-11-2023 Episodic Pneumonia (except that caused by tuberculosis or sexually transmitted disease) (1 source) Pneumonia (except that caused by tuberculosis or sexually transmitted disease); Translations: [PNEUMONIA D/T CORONAVIRUS DIS 2019] Onset: 08-18-2022 Substance-related disorders (1 source) Nicotine dependence, cigarettes, uncomplicated; Translations: [NICOTINE DEPEND CIGARETTES UNCOMP] Onset: 07-21-2022 Chronic Unclassified (1 source) CONTACT W/AND (SUSP) EXPOS COVID-19; Translations: [CONTACT W/AND (SUSP) EXPOS COVID-19] Onset: 07-21-2022 Viral infection (3 sources) COVID-19; Translations: [COVID-19] Onset: 08-11-2022 Past or Other Problems Problem Classification Problem Date Documented Date Episodic/Chronic Acute bronchitis (1 source) Acute bronchitis due to other specified organisms; Translations: [ACUTE BRONCHITIS D/T SPEC ORGANISMS] Onset: 07-21-2022 Episodic Cardiac dysrhythmias (1 source) Tachycardia, unspecified; Translations: [TACHYCARDIA UNSPECIFIED] Onset: 07-21-2022 Episodic Deficiency and other anemia (1 source) Iron deficiency anemia, unspecified; Translations: [IRON DEFICIENCY ANEMIA UNSPECIFIED] Onset: 07-21-2022 Episodic Diabetes mellitus without complication (1 source) Hyperglycemia, unspecified; Translations: [HYPERGLYCEMIA UNSPECIFIED] Onset: 08-18-2022 Episodic E Codes: Adverse effects of medical drugs (1 source) Adverse effect of glucocorticoids and synthetic analogues, initial encounter; Translations: [ADVRS EFF GLUCOCORT SYN ANALOG INIT] Onset: 08-18-2022 Episodic Fluid and electrolyte disorders (1 source) Hypo-osmolality and hyponatremia; Translations: [HYPO-OSMOLALITY AND HYPONATREMIA] Onset: 07-21-2022 Episodic Malaise and fatigue (2 sources) Weakness; Translations: [Weakness] Onset: 08-19-2022 Episodic Other aftercare (1 source) Other [facility] (current) drug therapy; Translations: [OTH RE[employer]ER[employer] CURRENT DRUG THERAPY] Onset: 08-18-2022 Episodic Other lower respiratory disease (1 source) Acute respiratory distress; Translations: [ACUTE RESPIRATORY DISTRESS] Onset: 08-18-2022 Episodic Other lower respiratory disease (4 sources) Dyspnea, unspecified; Translations: [DYSPNEA UNSPECIFIED] Onset: 06-15-2022 Episodic Other screening for suspected conditions (not mental disorders or infectious disease) (1 source) Other specified abnormal findings of blood chemistry; Translations: [OTH SPEC ABNORMAL FINDINGS BLD CHEM] Onset: 08-18-2022 Episodic Pneumonia (except that caused by tuberculosis or sexually transmitted disease) (6 sources) Pneumonia; Translations: [Pneumonia, unspecified organism] Onset: 07-31-2021 Episodic Residual codes; unclassified (6 sources) Tobacco user; Translations: [Tobacco use] Onset: 08-01-2021 Episodic Unclassified (2 sources) Onset: 08-19-2022 08-19-2022 Results Test Name Value Interpretation Reference Range Facility CT NECK WITH CONTRASTon 04-26 CT NECK WITH CONTRAST EXAM: CT NECK WITH CONTRAST CLINICAL INDICATION: Left upper neck/parotid swelling COMPARISON: Ultrasound neck soft tissues 04/10/2023 TECHNIQUE: Standard enhanced CT of the neck following intravenous administration of 75 cc of Omnipaque 350. Axial sections with coronal and sagittal reformats were obtained. Dose reduction techniques were achieved by using automated exposure control and/or adjustment of mA and/or kV according to patient size and/or use of iterative reconstruction technique. FINDINGS: Lymph Nodes/Soft Tissues: No extranodal soft tissue mass, abnormal enhancement, or fat stranding. No enlarged or morphologically abnormal lymph nodes. Nasopharynx: Normal. Suprahyoid Neck: Oropharynx, oral cavity, parapharyngeal, and retropharyngeal spaces are clear and symmetric. Infrahyoid Neck: Larynx, hypopharynx, and supraglottic area are clear. 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 Vocal cords are symmetric. Parotid Glands: Normal. Submandibular Glands: Normal. Thyroid: Normal. Orbits: Normal. Paranasal Sinuses: Trace scattered paranasal sinus mucosal thickening. Mastoid Air Cells: Well-aerated. Skull Base: Normal. Thoracic Inlet: Visualized lung apices are clear. Vascular Structures: Symmetric and patent. Mild atherosclerotic plaque at the left carotid bifurcation. Musculoskeletal: No acute osseous abnormality. Complete edentulism. Multilevel cervicothoracic spondylotic changes. IMPRESSION: 1. No extranodal soft tissue mass, abnormal enhancement, or lymphadenopathy in the neck. No soft tissue abnormality to correspond with the reported palpable abnormality. 2. 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 Normal [facility] CT Neck W contrast Ceci 04-26 IMPRESSION: 1. No extranodal soft tissue mass, abnormal enhancement, or lymphadenopathy in the neck. No soft tissue abnormality to correspond with the reported palpable abnormality. 2. 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 RADIOLOGY EXAM: CT NECK WITH CONTRAST CLINICAL INDICATION: Left upper neck/parotid swelling COMPARISON: Ultrasound neck soft tissues 04/10/2023 TECHNIQUE: Standard enhanced CT of the neck following intravenous administration of 75 cc of Omnipaque 350. Axial sections with coronal and sagittal reformats were obtained. Dose reduction techniques were achieved by using automated exposure control and/or adjustment of mA and/or kV according to patient size and/or use of iterative reconstruction technique. FINDINGS: Lymph Nodes/Soft Tissues: No extranodal soft tissue mass, abnormal enhancement, or fat stranding. No enlarged or morphologically abnormal lymph nodes. Nasopharynx: Normal. Suprahyoid Neck: Oropharynx, oral cavity, parapharyngeal, and retropharyngeal spaces are clear and symmetric. Infrahyoid Neck: Larynx, hypopharynx, and supraglottic area are clear. 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 Vocal cords are symmetric. Parotid Glands: Normal. Submandibular Glands: Normal. Thyroid: Normal. Orbits: Normal. Paranasal Sinuses: Trace scattered paranasal sinus mucosal thickening. Mastoid Air Cells: Well-aerated. Skull Base: Normal. Thoracic Inlet: Visualized lung apices are clear. Vascular Structures: Symmetric and patent. Mild atherosclerotic plaque at the left carotid bifurcation. Musculoskeletal: No acute osseous abnormality. Complete edentulism. Multilevel cervicothoracic spondylotic changes. RADIOLOGY Jessenia Stewart MD - 05/11/2023 EXAM: CT NECK WITH CONTRAST CLINICAL INDICATION: Left upper neck/parotid swelling COMPARISON: Ultrasound neck soft tissues 04/10/2023 TECHNIQUE: Standard enhanced CT of the neck following intravenous administration of 75 cc of Omnipaque 350. Axial sections with coronal and sagittal reformats were obtained. Dose reduction techniques were achieved by using automated exposure control and/or adjustment of mA and/or kV according to patient size and/or use of iterative reconstruction technique. FINDINGS: Lymph Nodes/Soft Tissues: No extranodal soft tissue mass, abnormal enhancement, or fat stranding. No enlarged or morphologically abnormal lymph nodes. Nasopharynx: Normal. Suprahyoid Neck: Oropharynx, oral cavity, parapharyngeal, and retropharyngeal spaces are clear and symmetric. Infrahyoid Neck: Larynx, hypopharynx, and supraglottic area are clear. 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 Vocal cords are symmetric. Parotid Glands: Normal. Submandibular Glands: Normal. Thyroid: Normal. Orbits: Normal. Paranasal Sinuses: Trace scattered paranasal sinus mucosal thickening. Mastoid Air Cells: Well-aerated. Skull Base: Normal. Thoracic Inlet: Visualized lung apices are clear. Vascular Structures: Symmetric and patent. Mild atherosclerotic plaque at the left carotid bifurcation. Musculoskeletal: No acute osseous abnormality. Complete edentulism. Multilevel cervicothoracic spondylotic changes. IMPRESSION IMPRESSION: 1. No extranodal soft tissue mass, abnormal enhancement, or lymphadenopathy in the neck. No soft tissue abnormality to correspond with the reported palpable abnormality. 2. 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 [facility] Radiology Study observation (narrative) [facility] CT Neck W contrast IVOrdered By: Jessenia Stewart on 05-11-2023 [facility] Work Phone: US NECK SOFT TISSUEon 2022 US NECK SOFT TISSUE EXAM: US NECK SOFT TISSUE HISTORY: neck mass COMPARISON: None. TECHNIQUE: Transverse and longitudinal images left neck FINDINGS: The area of concern is in the upper left neck near the parotid The visualized parotid gland appears unremarkable. There are few benign-appearing level 2 lymph nodes identified measuring 14 x 4 and 10 x 6 mm. There are a few additional smaller lymph nodes. These lymph nodes have normal sonographic features with hypoechoic cortex and central fatty wil IMPRESSION: The area of palpable concern corresponds to small benign-appearing lymph nodes by ultrasound. Most commonly reactive. CT could further investigate a suspicious palpable lesion Normal [facility] US Neckon 04-10-2023 IMPRESSION: The area of palpable concern corresponds to small benign-appearing lymph nodes by ultrasound. Most commonly reactive. CT could further investigate a suspicious palpable lesion RADIOLOGY EXAM: US NECK SOFT TISSUE HISTORY: neck mass COMPARISON: None. TECHNIQUE: Transverse and longitudinal images left neck FINDINGS: The area of concern is in the upper left neck near the parotid The visualized parotid gland appears unremarkable. There are few benign-appearing level 2 lymph nodes identified measuring 14 x 4 and 10 x 6 mm. There are a few additional smaller lymph nodes. These lymph nodes have normal sonographic features with hypoechoic cortex and central fatty wil RADIOLOGY Edwin Nichole MD - 04/10/2023 EXAM: US NECK SOFT TISSUE HISTORY: neck mass COMPARISON: None. TECHNIQUE: Transverse and longitudinal images left neck FINDINGS: The area of concern is in the upper left neck near the parotid The visualized parotid gland appears unremarkable. There are few benign-appearing level 2 lymph nodes identified measuring 14 x 4 and 10 x 6 mm. There are a few additional smaller lymph nodes. These lymph nodes have normal sonographic features with hypoechoic cortex and central fatty wil IMPRESSION IMPRESSION: The area of palpable concern corresponds to small benign-appearing lymph nodes by ultrasound. Most commonly reactive. CT could further investigate a suspicious palpable lesion [facility] Radiology Study observation (narrative) [facility] US NeckOrdered By: Edwin Nichole on 04-10-2023 [facility] Work Phone: CBC AUTO DIFFon 11-23-2022 BASO # 0.1 103/ul Normal 0.0-0.1 [facility] Comment on above: Performed By: #### C MP, BNP, YESI #### [facility] [address] [address] [address] Emilie Stack Basophils/100 WBC (Bld) 0.9 % Normal 0.2-2.0 [facility] Comment on above: Performed By: #### C MP, BNP, YESI #### [facility] [address] [address] [address] Emilie Stack EO # 0.0 103/ul Normal 0.0-0.7 [facility] Comment on above: Performed By: #### C MP, BNP, YESI #### [facility] [address] [address] [address] Emilie Stack Eosinophils/100 WBC (Bld) 0.7 % Critically low 0.9-7.0 [facility] Comment on above: Performed By: #### C MP, BNP, YESI #### [facility] [address] [address] [address] Emilie Stack Erythrocyte distribution width (RBC) [Ratio] 13.9 % Normal 11.0-15.0 [facility] Comment on above: Performed By: #### C MP, BNP, YESI #### [facility] [address] [place] [address] Dr. Emilie Stack Hematocrit (Bld) [Volume fraction] 45.3 % Normal 42.0-54.0 [facility] Comment on above: Performed By: #### C MP, BNP, YESI #### [facility] [address] [place] [address] Dr. Emilie Stack Hemoglobin (Bld) [Mass/Vol] 15.2 g/dL Normal 14.0-18.0 [facility] Comment on above: Performed By: #### C MP, BNP, YESI #### [facility] [address] [place] [address] Dr. Emilie Stack IG # 0.02 10e3/ul Normal 0.00-0.03 [facility] Comment on above: Performed By: #### C MP, BNP, YESI #### [facility] [address] [place] [address] Dr. Emilie Stack IG % 0.4 % Normal 0.0-0.5 [facility] Comment on above: Performed By: #### C MP, BNP, YESI #### [facility] [address] [place] [address] Dr. Emilie Stack LYMPH # 0.9 103/ul Critically low 1.2-3.8 [facility] Comment on above: Performed By: #### C MP, BNP, YESI #### [facility] [address] [place] [address] Dr. Emilie Stack Lymphocytes/100 WBC (Bld) 16.2 % Critically low 20.5-60.0 [facility] Comment on above: Performed By: #### C MP, BNP, YESI #### [facility] [address] [place] [address] Dr. Emilie Stack MANUAL DIFF REQ NO Normal [facility] Comment on above: Performed By: #### C MP, BNP, YESI #### [facility] [address] [place] [address] Dr. Emilie Stack MCH (RBC) [Entitic mass] 30.5 pg Normal 25.9-34.0 [facility] Comment on above: Performed By: #### C MP, BNP, YESI #### [facility] [address] [place] [address] Dr. Emilie Stack MCHC (RBC) [Mass/Vol] 33.6 g/dL Normal 29.9-35.2 [facility] Comment on above: Performed By: #### C MP, BNP, YESI #### [facility] [address] [place] [address] Dr. Emilie Stack MCV (RBC) [Entitic vol] 90.8 fL Normal 80.0-94.0 [facility] Comment on above: Performed By: #### C MP, BNP, YESI #### [facility] [address] [place] [address] Dr. Emilie Stack MONO # 0.8 103/ul Normal 0.3-0.8 [facility] Comment on above: Performed By: #### C MP, BNP, YESI #### [facility] [address] [address] [address] Emilie Stack Monocytes/100 WBC (Bld) 15.1 % Critically high 1.7-12.0 [facility] Comment on above: Performed By: #### C MP, BNP, YESI #### [facility] [address] [place] [address] Dr. Emilie Stack NEUT # 3.7 103/ul Normal 1.4-6.5 [facility] Comment on above: Performed By: #### C MP, BNP, YESI #### [facility] [address] [place] [address] Dr. Emilie Stack Neutrophils/100 WBC (Bld) 66.7 % Normal 43.0-75.0 [facility] Comment on above: Performed By: #### C MP, BNP, YESI #### [facility] [address] [place] [address] Dr. Emilie Stack Platelet mean volume (Bld) [Entitic vol] 8.6 fL Critically low 9.5-13.5 [facility] Comment on above: Performed By: #### C MP, BNP, YESI #### [facility] [address] [place] [address] Dr. Emilie Stack PLT 301 103/ul Normal 150-450 [facility] Comment on above: Performed By: #### C MP, BNP, YESI #### [facility] [address] [place] [address] Dr. Emilie Stack RBC 4.99 106/ul Normal 4.70-6.10 [facility] Comment on above: Performed By: #### C MP, BNP, YESI #### [facility] [address] [place] [address] Dr. Emilie Stack WBC 5.5 103/ul Normal 4.0-11.0 [facility] Comment on above: Performed By: #### C MP, BNP, YESI #### [facility] [address] [place] [address] Dr. Emilie Stack Covid-19 PCR (CVDTBH)on 10-26 SARS-CoV-2 (COVID-19) RNA [place]+probe Ql (Unsp spec) Not detected Normal NOT DETECTED [facility] Comment on above: Result Comment: THIS TEST IS NOT APPROVED BY THE FDA. IT HAS BEEN AUTHORIZED FOR USE UNDER AN EMERGENCY USE AUTHORIZATION. Performed By: #### T ROSSY, CMP, BNP #### [facility] [address] [place] [address] Dr. Emilie Stack PROF CHEM 8 (BAS METB)on Anion gap [Moles/Vol] 14.2 mmol/L Normal [facility] Comment on above: Performed By: #### C MP, BNP, YESI #### [facility] [address] [place] [address] Dr. Emilie Stack Calcium [Mass/Vol] 8.7 mg/dL Normal 8.5-10.1 [facility] Comment on above: Performed By: #### C MP, BNP, YESI #### [facility] [address] [address] [address] Emilie Stack Chloride [Moles/Vol] 103 mmol/L Normal 98-107 [facility] Comment on above: Performed By: #### C MP, BNP, YESI #### [facility] [address] [place] [address] Dr. Emilie Stack CO2 [Moles/Vol] 25.9 mmol/L Normal 21.0-32.0 [facility] Comment on above: Performed By: #### C MP, BNP, YESI #### [facility] [address] [place] [address] Dr. Emilie Stack Creatinine [Mass/Vol] 1.16 mg/dL Normal 0.70-1.30 [facility] Comment on above: Performed By: #### C MP, BNP, YESI #### [facility] [address] [place] [address] Dr. Emilie Stack EGFR-AF JORDANIAN >60 Normal >=60 [facility] Comment on above: Performed By: #### C MP, BNP, YESI #### [facility] [address] [place] [address] Dr. Emilie Stack EGFR-NON AF JORDANIAN >60 Normal >=60 [facility] Comment on above: Performed By: #### C MP, BNP, YESI #### [facility] [address] [place] [address] Dr. Emilie Stack Glucose [Mass/Vol] 100 mg/dL Normal 74-106 [facility] Comment on above: Performed By: #### C MP, BNP, YESI #### [facility] [address] [place] [address] Dr. Emilie Stack Potassium [Moles/Vol] 4.1 mmol/L Normal 3.5-5.1 [facility] Comment on above: Performed By: #### C MP, BNP, YESI #### [facility] [address] [place] [address] Dr. Emilie Stack Sodium [Moles/Vol] 139 mmol/L Normal 136-145 [facility] Comment on above: Performed By: #### C MP, BNP, YESI #### [facility] [address] [place] [address] Dr. Emilie Stack Urea nitrogen [Mass/Vol] 10.0 mg/dL Normal 7.0-18.0 [facility] Comment on above: Performed By: #### C MP, BNP, YESI #### [facility] [address] [place] [address] Dr. Emilie Stack Urea nitrogen/Creatinine [Mass ratio] 8.6 mg/mg Normal [facility] Comment on above: Performed By: #### C MP, BNP, YESI #### [facility] [address] [place] [address] Dr. Emilie Stack SYMPTOMATIC COVID-19 ANTIGEN on 11-23-2022 EUA Statement SEE BELOW Normal [facility] Comment on above: Result Comment: This test has not been FDA cleared or approved, but has been authorized by the FDA under an Emergency Use Authorization (EUA) for use by authorized laboratories certified under CLIA that meet the requirements to perform moderate or high complexity testing. This test has been authorized only for the detection of proteins from SARS-CoV-2, not for any other viruses or pathogens. The emergency use of this test is authorized for the duration of the declaration that circumstances exist justifying the authorization of emergency use of in vitro diagnostic tests for detection and/or diagnosis of Covid-19 under section 564(b)(1) of the Act, 21 U.S.C. 360bbb-3(b)(1), unless the declaration is terminated or authorization is revoked sooner. Performed By: #### T ROSSY BNP, CMP #### [facility] [address] [place] [address] Dr. Emilie Stack SARS-CoV-2 (COVID-19) RNA [place]+probe Ql (Unsp spec) Negative Normal NEGATIVE [facility] Comment on above: Performed By: #### T ROSSY BNP, CMP #### [facility] [address] [place] [address] Dr. Emilie Stack THEOPHYLLINEon 11-23-2022 THEOPHYLLINE 8.0 ug/mL Critically low 10.0-20.0 [facility] Comment on above: Performed By: #### C MP, BNP, YESI #### [facility] [address] [address] [address] Emilie Stack XR CHEST 1 Von 11-23-2022 XR CHEST 1 V TITLE: XR CHEST 1 V COMPARISON: May 2022 chest x-ray CLINICAL HISTORY: COUGH TECHNIQUE: One view. FINDINGS: There is a normal cardiac and mediastinal contour. The pulmonary vascular pattern is normal. The lungs are hyperexpanded and clear. The pleural margins are sharp. There are no significant skeletal abnormalities. IMPRESSION: NO ACUTE RADIOGRAPHIC FINDINGS Electronically authenticated by: EDWIN NICHOLE Date: 2022-11-23 12:36 Normal [facility] C REACTIVE PROTEINon 023 CRP [Mass/Vol] mg/L Normal 0-10.0 [facility] Comment on above: Performed By: #### A CBC, CMPF, CPK, ESR, CREACT #### Testing performed at [address] [place] [id number] CBCon 08-19-2022 ABSOLUTE BAS 0.1 10*3/uL Normal 0.0-0.2 [facility] Comment on above: Performed By: #### A CBC, CMPF, CPK, ESR, CREACT #### Testing performed at [address] [place] [id number] ABSOLUTE EOS 0.1 10*3/uL Normal 0.0-0.7 [facility] Comment on above: Performed By: #### A CBC, CMPF, CPK, ESR, CREACT #### Testing performed at [address] [address] ABSOLUTE NEUTROPHIL COUNT 9.7 10*3/uL High 1.4-6.5 [facility] Comment on above: Performed By: #### A CBC, CMPF, CPK, ESR, CREACT #### Testing performed at [address] [place] [id number] Basophils/100 WBC (Bld) 0.77 % Normal 0.0-2.0 [facility] Comment on above: Performed By: #### A CBC, CMPF, CPK, ESR, CREACT #### Testing performed at [address] [place] [id number] DTYPE AUTO DIFF Normal [facility] Comment on above: Performed By: #### A CBC, CMPF, CPK, ESR, CREACT #### Testing performed at [address] [address] Eosinophils/100 WBC (Bld) 0.66 % Normal 0.0-11.0 [facility] Comment on above: Performed By: #### A CBC, CMPF, CPK, ESR, CREACT #### Testing performed at [address] [address] Lymphocytes (Bld) [#/Vol] 1.1 10*3/uL Low 1.2-3.4 [facility] Comment on above: Performed By: #### A CBC, CMPF, CPK, ESR, CREACT #### Testing performed at [address] [address] Lymphocytes/100 WBC (Bld) 8.84 % Low 20.0-55.0 [facility] Comment on above: Performed By: #### A CBC, CMPF, CPK, ESR, CREACT #### Testing performed at [address] [address] Monocytes (Bld) [#/Vol] 1.2 10*3/uL High 0.0-0.7 [facility] Comment on above: Performed By: #### A CBC, CMPF, CPK, ESR, CREACT #### Testing performed at [address] [address] Monocytes/100 WBC (Bld) 10.10 % High 0.0-10.0 [facility] Comment on above: Performed By: #### A CBC, CMPF, CPK, ESR, CREACT #### Testing performed at [address] [address] Neutrophils/100 WBC (Bld) 79.63 % High 37.0-75.0 [facility] Comment on above: Performed By: #### A CBC, CMPF, CPK, ESR, CREACT #### Testing performed at [address] [address] Erythrocyte distribution width (RBC) [Ratio] 14.9 % High 11.5-14.5 [facility] Comment on above: Performed By: #### A CBC, CMPF, CPK, ESR, CREACT #### Testing performed at [address] [address] Hematocrit (Bld) [Volume fraction] 43.8 % Normal 42.0-52.0 [facility] Comment on above: Performed By: #### A CBC, CMPF, CPK, ESR, CREACT #### Testing performed at [address] [address] Hemoglobin (Bld) [Mass/Vol] 15.2 g/dL Normal 14.0-18.0 [facility] Comment on above: Performed By: #### A CBC, CMPF, CPK, ESR, CREACT #### Testing performed at [address] [address] MCH (RBC) [Entitic mass] 31.1 pg Normal 26.0-35.0 [facility] Comment on above: Performed By: #### A CBC, CMPF, CPK, ESR, CREACT #### Testing performed at [address] [address] MCHC (RBC) [Mass/Vol] 34.8 g/dL Normal 27.0-37.0 [facility] Comment on above: Performed By: #### A CBC, CMPF, CPK, ESR, CREACT #### Testing performed at [address] [address] MCV (RBC) [Entitic vol] 89.6 fL Normal 80.0-100.0 [facility] Comment on above: Performed By: #### A CBC, CMPF, CPK, ESR, CREACT #### Testing performed at [address] [address] Platelet mean volume (Bld) [Entitic vol] 6.5 fL Low 7.4-11.0 [facility] Comment on above: Performed By: #### A CBC, CMPF, CPK, ESR, CREACT #### Testing performed at [address] [address] Platelets (Bld) [#/Vol] 281 10*3/uL Normal 130.0-400.0 [facility] Comment on above: Performed By: #### A CBC, CMPF, CPK, ESR, CREACT #### Testing performed at [address] [address] RBC (Bld) [#/Vol] 4.89 10*6/uL Normal 4.0-6.1 [facility] Comment on above: Performed By: #### A CBC, CMPF, CPK, ESR, CREACT #### Testing performed at [address] [address] WBC (Bld) [#/Vol] 12.1 10*3/uL High 3.6-11.0 [facility] Comment on above: Performed By: #### A CBC, CMPF, CPK, ESR, CREACT #### Testing performed at [address] [address] CMP FASTINGon 08-19-2022 A:G RATIO 1.4 RATIO Normal 1.3-2.2 [facility] Comment on above: Performed By: #### A CBC, CMPF, CPK, ESR, CREACT #### Testing performed at [address] [address] ALBUMIN 3.4 G/dl Low 3.5-5.0 [facility] Comment on above: Performed By: #### A CBC, CMPF, CPK, ESR, CREACT #### Testing performed at [address] [address] ALP [Catalytic activity/Vol] 72 U/L Normal 38-126 [facility] Comment on above: Performed By: #### A CBC, CMPF, CPK, ESR, CREACT #### Testing performed at [address] [address] ALT [Catalytic activity/Vol] 32 U/L Normal 17-63 [facility] Comment on above: Performed By: #### A CBC, CMPF, CPK, ESR, CREACT #### Testing performed at [address] [address] AST [Catalytic activity/Vol] 21 U/L Normal 15-41 [facility] Comment on above: Performed By: #### A CBC, CMPF, CPK, ESR, CREACT #### Testing performed at [address] [address] Bilirubin [Mass/Vol] 0.5 mg/dL Normal 0.2-1.2 [facility] Comment on above: Performed By: #### A CBC, CMPF, CPK, ESR, CREACT #### Testing performed at [address] [place] [id number] Calcium [Mass/Vol] 7.7 mg/dL Low 8.4-10.2 [facility] Comment on above: Performed By: #### A CBC, CMPF, CPK, ESR, CREACT #### Testing performed at [address] [address] Chloride [Moles/Vol] 102 mmol/L Normal 98-107 [facility] Comment on above: Performed By: #### A CBC, CMPF, CPK, ESR, CREACT #### Testing performed at [address] [address] CO2 [Moles/Vol] 26 mmol/L Normal 22-30 [facility] Comment on above: Performed By: #### A CBC, CMPF, CPK, ESR, CREACT #### Testing performed at [address] [address] Creatinine [Mass/Vol] 1.05 mg/dL Normal 0.66-1.25 [facility] Comment on above: Performed By: #### A CBC, CMPF, CPK, ESR, CREACT #### Testing performed at [address] [address] EST. GFR, 89 ml/min/1.73sq.m [facility] Comment on above: Performed By: #### A CBC, CMPF, CPK, ESR, CREACT #### Testing performed at [address] [address] EST. GFR,Non 74 ml/min/1.73sq.m [facility] Comment on above: Performed By: #### A CBC, CMPF, CPK, ESR, CREACT #### Testing performed at [address] [address] GFR Information Average GFR for 70+ years old = 75. Normal [facility] Comment on above: Result Comment: [employer] [place] Kidney disease, GFR = <60. Kidney failure, GFR = <15. The GFR estimate is not adjusted for extreme body surface area or acute process, nor has it been validated for women or ethnic groups other than and . Performed By: #### A CBC, CMPF, CPK, ESR, CREACT #### Testing performed at [address] [address] Glucose [Mass/Vol] 73 mg/dL Normal 70-100 [facility] Comment on above: Result Comment: NORMAL <100 mg/dL PREDIABETES 101-126 mg/dL DIABETES 126 mg/dL or higher Performed By: #### A CBC, CMPF, CPK, ESR, CREACT #### Testing performed at [address] [place] [id number] Potassium [Moles/Vol] 3.5 mmol/L Normal 3.5-5.1 [facility] Comment on above: Performed By: #### A CBC, CMPF, CPK, ESR, CREACT #### Testing performed at [address] [address] Protein [Mass/Vol] 5.9 g/dL Low 6.3-8.2 [facility] Comment on above: Performed By: #### A CBC, CMPF, CPK, ESR, CREACT #### Testing performed at [address] [address] Sodium [Moles/Vol] 136 mmol/L Normal 136-145 [facility] Comment on above: Performed By: #### A CBC, CMPF, CPK, ESR, CREACT #### Testing performed at [address] [address] Urea nitrogen [Mass/Vol] 20 mg/dL Normal 7-20 [facility] Comment on above: Performed By: #### A CBC, CMPF, CPK, ESR, CREACT #### Testing performed at [address] [address] CPKon 08-19-2022 CPK 210 IU/L High 38-174 [facility] Comment on above: Performed By: #### A CBC, CMPF, CPK, ESR, CREACT #### Testing performed at [address] [address] ESRon 08-19-2022 ESR (Bld) [Velocity] 6 mm/h Normal 0-20 [facility] Comment on above: Performed By: #### A CBC, CMPF, CPK, ESR, CREACT #### Testing performed at [address] [address] XR HIPS BILATERALon 08-19-19 23 XR HIPS BILATERAL EXAM: XR HIPS BILATERAL HISTORY: Bilateral hip pain, trouble walking. COMPARISON: Radiographs 10/13/2016 TECHNIQUE: Frontal view pelvis and 2 additional views of each hip. FINDINGS: Osseous mineralization appears appropriate. Mild degenerative change of the lower lumbar spine and SI joints. Mild bilateral hip arthropathy. Pelvic ring appears intact. No acute fracture or dislocation is demonstrated. Grossly unremarkable soft tissues. IMPRESSION: Mild degenerative changes including mild bilateral hip arthropathy. No evidence of acute fracture or dislocation. Normal [facility] BNPon 08-15-2022 Natriuretic peptide B (Bld) [Mass/Vol] 107.0 pg/mL Normal <=900.0 [facility] Comment on above: Performed By: #### C MP, BNP, YESI #### [facility] [address] [place] [address] Dr. Emilie Stack CBC AUTO DIFFon 08-15-2022 BASO # 0.0 103/ul Normal 0.0-0.1 [facility] Comment on above: Performed By: #### C MP, BNP, YESI #### [facility] [address] [address] [address] Emilie Stack Basophils/100 WBC (Bld) 0.2 % Normal 0.2-2.0 [facility] Comment on above: Performed By: #### C MP, BNP, YESI #### [facility] [address] [address] [address] Emilie Stack EO # 0.0 103/ul Normal 0.0-0.7 [facility] Comment on above: Performed By: #### C MP, BNP, YESI #### [facility] [address] [place] [address] Dr. Emilie Stack Eosinophils/100 WBC (Bld) 0.0 % Critically low 0.9-7.0 [facility] Comment on above: Performed By: #### C MP, BNP, YESI #### [facility] [address] [place] [address] Dr. Emilie Stack Erythrocyte distribution width (RBC) [Ratio] 14.6 % Normal 11.0-15.0 [facility] Comment on above: Performed By: #### C MP, BNP, YESI #### [facility] [address] [place] [address] Dr. Emilie Stack Hematocrit (Bld) [Volume fraction] 41.0 % Critically low 42.0-54.0 [facility] Comment on above: Performed By: #### C MP, BNP, YESI #### [facility] [address] [place] [address] Dr. Emilie Stack Hemoglobin (Bld) [Mass/Vol] 13.8 g/dL Critically low 14.0-18.0 [facility] Comment on above: Performed By: #### C MP, BNP, YESI #### [facility] [address] [place] [address] Dr. Emilie Stack IG # 0.12 10e3/ul Critically high 0.00-0.03 [facility] Comment on above: Performed By: #### C MP, BNP, YESI #### [facility] [address] [place] [address] Dr. Emilie Stack IG % 1.0 % Critically high 0.0-0.5 [facility] Comment on above: Performed By: #### C MP, BNP, YESI #### [facility] [address] [place] [address] Dr. Emilie Stack LYMPH # 0.5 103/ul Critically low 1.2-3.8 [facility] Comment on above: Performed By: #### C MP, BNP, YESI #### [facility] [address] [address] [address] Emilie Stack Lymphocytes/100 WBC (Bld) 3.8 % Critically low 20.5-60.0 [facility] Comment on above: Performed By: #### C MP, BNP, YESI #### [facility] [address] [place] [address] Dr. Emilie Stcak MANUAL DIFF REQ NO Normal [facility] Comment on above: Performed By: #### C MP, BNP, YESI #### [facility] [address] [place] [address] Dr. Emilie Stack MCH (RBC) [Entitic mass] 30.3 pg Normal 25.9-34.0 [facility] Comment on above: Performed By: #### C MP, BNP, YESI #### [facility] [address] [place] [address] Dr. Emilie Stack MCHC (RBC) [Mass/Vol] 33.7 g/dL Normal 29.9-35.2 [facility] Comment on above: Performed By: #### C MP, BNP, YESI #### [facility] [address] [place] [address] Dr. Emilie Stack MCV (RBC) [Entitic vol] 89.9 fL Normal 80.0-94.0 [facility] Comment on above: Performed By: #### C MP, BNP, YESI #### [facility] [address] [place] [address] Dr. Emilie Stack MONO # 0.8 103/ul Normal 0.3-0.8 [facility] Comment on above: Performed By: #### C MP, BNP, YESI #### [facility] [address] [place] [address] Dr. Emilie Stack Monocytes/100 WBC (Bld) 6.0 % Normal 1.7-12.0 [facility] Comment on above: Performed By: #### C MP, BNP, YESI #### [facility] [address] [place] [address] Dr. Emilie Stack NEUT # 11.1 103/ul Critically high 1.4-6.5 [facility] Comment on above: Performed By: #### C MP, BNP, YESI #### [facility] [address] [place] [address] Dr. Emilie Stack Neutrophils/100 WBC (Bld) 89.0 % Critically high 43.0-75.0 [facility] Comment on above: Performed By: #### C MP, BNP, YESI #### [facility] [address] [place] [address] Dr. Emilie Stack Platelet mean volume (Bld) [Entitic vol] 8.6 fL Critically low 9.5-13.5 [facility] Comment on above: Performed By: #### C MP, BNP, YESI #### [facility] [address] [place] [address] Dr. Emilie Stack PLT 268 103/ul Normal 150-450 [facility] Comment on above: Performed By: #### C MP, BNP, YESI #### [facility] [address] [place] [address] Dr. Emilie Stack RBC 4.56 106/ul Critically low 4.70-6.10 [facility] Comment on above: Performed By: #### C MP, BNP, YESI #### [facility] [address] [place] [address] Dr. Emilie Stack WBC 12.5 103/ul Critically high 4.0-11.0 [facility] Comment on above: Performed By: #### C MP, BNP, YESI #### [facility] [address] [place] [address] Dr. Emilie Stack PROF 14(COMP METB)on 023 Albumin [Mass/Vol] 3.2 g/dL Critically low 3.4-5.0 [facility] Comment on above: Performed By: #### C MP, BNP, YESI #### [facility] [address] [place] [address] Dr. Emilie Stack Albumin/Globulin [Mass ratio] 1.1 {ratio} Normal [facility] Comment on above: Performed By: #### C MP, BNP, YESI #### [facility] [address] [address] [address] Emilie Stack ALP [Catalytic activity/Vol] 83 U/L Normal 46-116 [facility] Comment on above: Performed By: #### C MP, BNP, YESI #### [facility] [address] [place] [address] Dr. Emilie Stack ALT [Catalytic activity/Vol] 27 U/L Normal 16-63 [facility] Comment on above: Performed By: #### C MP, BNP, YESI #### [facility] [address] [place] [address] Dr. Emilie Stack Anion gap [Moles/Vol] 13.0 mmol/L Normal [facility] Comment on above: Performed By: #### C MP, BNP, YESI #### [facility] [address] [place] [address] Dr. Emilie Stack AST [Catalytic activity/Vol] 24 U/L Normal 15-37 [facility] Comment on above: Performed By: #### C MP, BNP, YESI #### [facility] [address] [place] [address] Dr. Emilie Stack Bilirubin [Mass/Vol] 0.3 mg/dL Normal 0.2-1.0 [facility] Comment on above: Performed By: #### C MP, BNP, YESI #### [facility] [address] [place] [address] Dr. Emilie Stack Calcium [Mass/Vol] 8.3 mg/dL Critically low 8.5-10.1 [facility] Comment on above: Performed By: #### C MP, BNP, YESI #### [facility] [address] [place] [address] Dr. Emilie Stack Chloride [Moles/Vol] 104 mmol/L Normal 98-107 [facility] Comment on above: Performed By: #### C MP, BNP, YESI #### [facility] [address] [place] [address] Dr. Emilie Stack CO2 [Moles/Vol] 25.8 mmol/L Normal 21.0-32.0 [facility] Comment on above: Performed By: #### C MP, BNP, YESI #### [facility] [address] [address] [address] Emilie Stack Creatinine [Mass/Vol] 1.17 mg/dL Normal 0.70-1.30 [facility] Comment on above: Performed By: #### C MP, BNP, YESI #### [facility] [address] [address] [address] Emilie Stack EGFR-AF JORDANIAN >60 Normal >=60 [facility] Comment on above: Performed By: #### C MP, BNP, YESI #### [facility] [address] [address] [address] Emilie Stack EGFR-NON AF JORDANIAN >60 Normal >=60 [facility] Comment on above: Performed By: #### C MP, BNP, YESI #### [facility] [address] [address] [address] Emilie Stack Globulin (S) [Mass/Vol] 3.0 g/dL Normal [facility] Comment on above: Performed By: #### C MP, BNP, YESI #### [facility] [address] [address] [address] Emilie Stack Glucose [Mass/Vol] 179 mg/dL Critically high 74-106 [facility] Comment on above: Performed By: #### C MP, BNP, YESI #### [facility] [address] [address] [address] Emilie Stack Potassium [Moles/Vol] 3.8 mmol/L Normal 3.5-5.1 [facility] Comment on above: Performed By: #### C MP, BNP, YESI #### [facility] [address] [address] [address] Emilie Stack Protein [Mass/Vol] 6.2 g/dL Critically low 6.4-8.2 [facility] Comment on above: Performed By: #### C MP, BNP, YESI #### [facility] [address] [address] [address] Emilie Stack Sodium [Moles/Vol] 139 mmol/L Normal 136-145 [facility] Comment on above: Performed By: #### C MP, BNP, YESI #### [facility] [address] [place] [address] Dr. Emilie Stack Urea nitrogen [Mass/Vol] 23.0 mg/dL Critically high 7.0-18.0 [facility] Comment on above: Performed By: #### C MP, BNP, YESI #### [facility] [address] [place] [address] Dr. Emilie Stack Urea nitrogen/Creatinine [Mass ratio] 19.7 mg/mg Normal [facility] Comment on above: Performed By: #### C MP, BNP, YESI #### [facility] [address] [place] [address] Dr. Emilie Stack THEOPHYLLINEon 08-15-2022 THEOPHYLLINE 10.6 ug/mL Normal 10.0-20.0 [facility] Comment on above: Performed By: #### C MP, BNP, YESI #### [facility] [address] [place] [address] Dr. Emilie Stack BNPon 08-14-2022 Natriuretic peptide B (Bld) [Mass/Vol] 67.0 pg/mL Normal <=900.0 [facility] Comment on above: Performed By: #### T ROSSY, CMP, BNP #### [facility] [address] [place] [address] Dr. Emilie Stack CBC AUTO DIFFon 08-14-2022 BASO # 0.0 103/ul Normal 0.0-0.1 [facility] Comment on above: Performed By: #### C BC #### [facility] [address] [place] [address] Dr. Emilie Stack Basophils/100 WBC (Bld) 0.1 % Critically low 0.2-2.0 [facility] Comment on above: Performed By: #### C BC #### [facility] [address] [place] [address] Dr. Emilie Stack EO # 0.0 103/ul Normal 0.0-0.7 [facility] Comment on above: Performed By: #### C BC #### [facility] [address] [address] [address] Emilie Stack Eosinophils/100 WBC (Bld) 0.0 % Critically low 0.9-7.0 [facility] Comment on above: Performed By: #### C BC #### [facility] [address] [place] [address] Dr. Emilie Stack Erythrocyte distribution width (RBC) [Ratio] 14.5 % Normal 11.0-15.0 [facility] Comment on above: Performed By: #### C BC #### [facility] [address] [place] [address] Dr. Emilie Stack Hematocrit (Bld) [Volume fraction] 43.6 % Normal 42.0-54.0 [facility] Comment on above: Performed By: #### C BC #### [facility] [address] [place] [address] Dr. Emilie Stack Hemoglobin (Bld) [Mass/Vol] 14.7 g/dL Normal 14.0-18.0 [facility] Comment on above: Performed By: #### C BC #### [facility] [address] [place] [address] Dr. Emilie Stack IG # 0.11 10e3/ul Critically high 0.00-0.03 [facility] Comment on above: Performed By: #### C BC #### [facility] [address] [place] [address] Dr. Emilie Stack IG % 0.8 % Critically high 0.0-0.5 [facility] Comment on above: Performed By: #### C BC #### [facility] [address] [place] [address] Dr. Emilie Stack LYMPH # 0.5 103/ul Critically low 1.2-3.8 [facility] Comment on above: Performed By: #### C BC #### [facility] [address] [place] [address] Dr. Emilie Stack Lymphocytes/100 WBC (Bld) 3.4 % Critically low 20.5-60.0 [facility] Comment on above: Performed By: #### C BC #### [facility] [address] [place] [address] Dr. Emilie Stack MANUAL DIFF REQ NO Normal [facility] Comment on above: Performed By: #### C BC #### [facility] [address] [place] [address] Dr. Emilie Stack MCH (RBC) [Entitic mass] 29.8 pg Normal 25.9-34.0 [facility] Comment on above: Performed By: #### C BC #### [facility] [address] [place] [address] Dr. Emilie Stack MCHC (RBC) [Mass/Vol] 33.7 g/dL Normal 29.9-35.2 [facility] Comment on above: Performed By: #### C BC #### [facility] [address] [place] [address] Dr. Emilie Stack MCV (RBC) [Entitic vol] 88.3 fL Normal 80.0-94.0 [facility] Comment on above: Performed By: #### C BC #### [facility] [address] [place] [address] Dr. Emilie Stack MONO # 0.6 103/ul Normal 0.3-0.8 [facility] Comment on above: Performed By: #### C BC #### [facility] [address] [place] [address] Dr. Emilie Stack Monocytes/100 WBC (Bld) 4.3 % Normal 1.7-12.0 [facility] Comment on above: Performed By: #### C BC #### [facility] [address] [place] [address] Dr. Emilie Stack NEUT # 12.5 103/ul Critically high 1.4-6.5 [facility] Comment on above: Performed By: #### C BC #### [facility] [address] [place] [address] Dr. Emilie Stack Neutrophils/100 WBC (Bld) 91.4 % Critically high 43.0-75.0 [facility] Comment on above: Performed By: #### C BC #### [facility] [address] [place] [address] Dr. Emilie Stack Platelet mean volume (Bld) [Entitic vol] 8.5 fL Critically low 9.5-13.5 [facility] Comment on above: Performed By: #### C BC #### [facility] [address] [place] [address] Dr. Emilie Stack PLT 323 103/ul Normal 150-450 [facility] Comment on above: Performed By: #### C BC #### [facility] [address] [place] [address] Dr. Emilie Stack RBC 4.94 106/ul Normal 4.70-6.10 [facility] Comment on above: Performed By: #### C BC #### [facility] [address] [place] [address] Dr. Emilie Stack WBC 13.6 103/ul Critically high 4.0-11.0 [facility] Comment on above: Performed By: #### C BC #### [facility] [address] [place] [address] Dr. Emilie Stack PROF 14(COMP METB)on 023 Albumin [Mass/Vol] 3.6 g/dL Normal 3.4-5.0 [facility] Comment on above: Performed By: #### T ROSSY CMP, BNP #### [facility] [address] [place] [address] Dr. Emilie Stack Albumin/Globulin [Mass ratio] 1.1 {ratio} Normal [facility] Comment on above: Performed By: #### T ROSSY CMP, BNP #### [facility] [address] [place] [address] Dr. Emilie Stack ALP [Catalytic activity/Vol] 98 U/L Normal 46-116 [facility] Comment on above: Performed By: #### T ROSSY CMP, BNP #### [facility] [address] [place] [address] Dr. Emilie Stack ALT [Catalytic activity/Vol] 27 U/L Normal 16-63 [facility] Comment on above: Performed By: #### T ROSSY, CMP, BNP #### [facility] [address] [address] [address] Emilie Stack Anion gap [Moles/Vol] 15.8 mmol/L Normal [facility] Comment on above: Performed By: #### T ROSSY, CMP, BNP #### [facility] [address] [place] [address] Dr. Emilie Stack AST [Catalytic activity/Vol] 27 U/L Normal 15-37 [facility] Comment on above: Performed By: #### T ROSSY, CMP, BNP #### [facility] [address] [place] [address] Dr. Emilie Stack Bilirubin [Mass/Vol] 0.3 mg/dL Normal 0.2-1.0 [facility] Comment on above: Performed By: #### T ROSSY, CMP, BNP #### [facility] [address] [place] [address] Dr. Emilie Stack Calcium [Mass/Vol] 8.7 mg/dL Normal 8.5-10.1 [facility] Comment on above: Performed By: #### T ROSSY, CMP, BNP #### [facility] [address] [place] [address] Dr. Emilie Stack Chloride [Moles/Vol] 102 mmol/L Normal 98-107 [facility] Comment on above: Performed By: #### T ROSSY, CMP, BNP #### [facility] [address] [place] [address] Dr. Emilie Stack CO2 [Moles/Vol] 23.0 mmol/L Normal 21.0-32.0 [facility] Comment on above: Performed By: #### T ROSSY, CMP, BNP #### [facility] [address] [place] [address] Dr. Emilie Stack Creatinine [Mass/Vol] 1.27 mg/dL Normal 0.70-1.30 [facility] Comment on above: Performed By: #### T ROSSY, CMP, BNP #### [facility] [address] [place] [address] Dr. Emilie Stack EGFR-AF JORDANIAN >60 Normal >=60 [facility] Comment on above: Performed By: #### Patience BLAIR CMP, BNP #### [facility] [address] [place] [address] Dr. Emilie Stack EGFR-NON AF JORDANIAN 56 mL/min/1.73m2 Critically low >=60 [facility] Comment on above: Performed By: #### Patience BLAIR CMP, BNP #### [facility] [address] [place] [address] Dr. Emilie Stack Globulin (S) [Mass/Vol] 3.3 g/dL Normal [facility] Comment on above: Performed By: #### Patience BLAIR CMP, BNP #### [facility] [address] [place] [address] Dr. Emilie Stack Glucose [Mass/Vol] 146 mg/dL Critically high 74-106 [facility] Comment on above: Performed By: #### Patience BLAIR CMP, BNP #### [facility] [address] [place] [address] Dr. Emilie Stack Potassium [Moles/Vol] 3.8 mmol/L Normal 3.5-5.1 [facility] Comment on above: Performed By: #### Patience BLAIR CMP, BNP #### [facility] [address] [place] [address] Dr. Emilie Stack Protein [Mass/Vol] 6.9 g/dL Normal 6.4-8.2 [facility] Comment on above: Performed By: #### Patience BLAIR CMP, BNP #### [facility] [address] [place] [address] Dr. Emilie Stack Sodium [Moles/Vol] 137 mmol/L Normal 136-145 [facility] Comment on above: Performed By: #### Patience BLAIR CMP, BNP #### [facility] [address] [place] [address] Dr. Emilie Stack Urea nitrogen [Mass/Vol] 22.0 mg/dL Critically high 7.0-18.0 [facility] Comment on above: Performed By: #### T ROSSY, CMP, BNP #### [facility] [address] [place] [address] Dr. Emilie Stack Urea nitrogen/Creatinine [Mass ratio] 17.3 mg/mg Normal [facility] Comment on above: Performed By: #### T ROSSY CMP, BNP #### [facility] [address] [place] [address] Dr. Emilie Stack THEOPHYLLINEon 08-14-2022 THEOPHYLLINE 10.3 ug/mL Normal 10.0-20.0 [facility] Comment on above: Performed By: #### T ROSSY CMP, BNP #### [facility] [address] [place] [address] Dr. Emilie Stack BNPon 08-13-2022 Natriuretic peptide B (Bld) [Mass/Vol] 82.0 pg/mL Normal <=900.0 [facility] Comment on above: Performed By: #### C MP, BNP, YESI #### [facility] [address] [place] [address] Dr. Emilie Stack CBC AUTO DIFFon 08-13-2022 BASO # 0.0 103/ul Normal 0.0-0.1 [facility] Comment on above: Performed By: #### C MP, BNP, YESI #### [facility] [address] [place] [address] Dr. Emilie Stack Basophils/100 WBC (Bld) 0.1 % Critically low 0.2-2.0 [facility] Comment on above: Performed By: #### C MP, BNP, YESI #### [facility] [address] [place] [address] Dr. Emilie Stack EO # 0.0 103/ul Normal 0.0-0.7 [facility] Comment on above: Performed By: #### C MP, BNP, YESI #### [facility] [address] [place] [address] Dr. Emilie Stack Eosinophils/100 WBC (Bld) 0.0 % Critically low 0.9-7.0 [facility] Comment on above: Performed By: #### C MP, BNP, YESI #### [facility] [address] [address] [address] Emilie Stack Erythrocyte distribution width (RBC) [Ratio] 14.7 % Normal 11.0-15.0 [facility] Comment on above: Performed By: #### C MP, BNP, YESI #### [facility] [address] [address] [address] Emilie Stack Hematocrit (Bld) [Volume fraction] 40.7 % Critically low 42.0-54.0 [facility] Comment on above: Performed By: #### C MP, BNP, YESI #### [facility] [address] [address] [address] Emilie Stack Hemoglobin (Bld) [Mass/Vol] 13.3 g/dL Critically low 14.0-18.0 [facility] Comment on above: Performed By: #### C MP, BNP, YESI #### [facility] [address] [place] [address] Dr. Emilie Stack IG # 0.14 10e3/ul Critically high 0.00-0.03 [facility] Comment on above: Performed By: #### C MP, BNP, YESI #### [facility] [address] [address] [address] Emilie Stack IG % 0.8 % Critically high 0.0-0.5 [facility] Comment on above: Performed By: #### C MP, BNP, YESI #### [facility] [address] [address] [address] Emilie Stack LYMPH # 0.8 103/ul Critically low 1.2-3.8 [facility] Comment on above: Performed By: #### C MP, BNP, YESI #### [facility] [address] [address] [address] Emilie Stack Lymphocytes/100 WBC (Bld) 4.5 % Critically low 20.5-60.0 [facility] Comment on above: Performed By: #### C MP, BNP, YESI #### [facility] [address] [address] [address] Emilie Stack MANUAL DIFF REQ NO Normal [facility] Comment on above: Performed By: #### C MP, BNP, YESI #### [facility] [address] [place] [address] Dr. Emilie Stack MCH (RBC) [Entitic mass] 29.7 pg Normal 25.9-34.0 [facility] Comment on above: Performed By: #### C MP, BNP, YESI #### [facility] [address] [place] [address] Dr. Emilie Stack MCHC (RBC) [Mass/Vol] 32.7 g/dL Normal 29.9-35.2 [facility] Comment on above: Performed By: #### C MP, BNP, YESI #### [facility] [address] [place] [address] Dr. Emilie Stack MCV (RBC) [Entitic vol] 90.8 fL Normal 80.0-94.0 [facility] Comment on above: Performed By: #### C MP, BNP, YESI #### [facility] [address] [place] [address] Dr. Emilie Stack MONO # 0.6 103/ul Normal 0.3-0.8 [facility] Comment on above: Performed By: #### C MP, BNP, YESI #### [facility] [address] [place] [address] Dr. Emilie Stack Monocytes/100 WBC (Bld) 3.3 % Normal 1.7-12.0 [facility] Comment on above: Performed By: #### C MP, BNP, YESI #### [facility] [address] [place] [address] Dr. Emilie Stack NEUT # 15.9 103/ul Critically high 1.4-6.5 [facility] Comment on above: Performed By: #### C MP, BNP, YESI #### [facility] [address] [place] [address] Dr. Emilie Stack Neutrophils/100 WBC (Bld) 91.3 % Critically high 43.0-75.0 [facility] Comment on above: Performed By: #### C MP, BNP, YESI #### [facility] [address] [place] [address] Dr. Emilie Stack Platelet mean volume (Bld) [Entitic vol] 8.9 fL Critically low 9.5-13.5 [facility] Comment on above: Performed By: #### C MP, BNP, YESI #### [facility] [address] [place] [address] Dr. Emilie Stack PLT 303 103/ul Normal 150-450 [facility] Comment on above: Performed By: #### C MP, BNP, YESI #### [facility] [address] [place] [address] Dr. Emilie Stack RBC 4.48 106/ul Critically low 4.70-6.10 [facility] Comment on above: Performed By: #### C MP, BNP, YESI #### [facility] [address] [place] [address] Dr. Emilie Stack WBC 17.4 103/ul Critically high 4.0-11.0 [facility] Comment on above: Performed By: #### C MP, BNP, YESI #### [facility] [address] [place] [address] Dr. Emilie Stack PROF 14(COMP METB)on 023 Albumin [Mass/Vol] 3.2 g/dL Critically low 3.4-5.0 [facility] Comment on above: Performed By: #### C MP, BNP, YESI #### [facility] [address] [place] [address] Dr. Emilie Stack Albumin/Globulin [Mass ratio] 1.0 {ratio} Normal [facility] Comment on above: Performed By: #### C MP, BNP, YESI #### [facility] [address] [place] [address] Dr. Emilie Stack ALP [Catalytic activity/Vol] 100 U/L Normal 46-116 [facility] Comment on above: Performed By: #### C MP, BNP, YESI #### [facility] [address] [place] [address] Dr. Emilie Stack ALT [Catalytic activity/Vol] 22 U/L Normal 16-63 [facility] Comment on above: Performed By: #### C MP, BNP, YESI #### [facility] [address] [place] [address] Dr. Emilie Stack Anion gap [Moles/Vol] 13.4 mmol/L Normal Th [facility] Comment on above: Performed By: #### C MP, BNP, YESI #### [facility] [address] [place] [address] Dr. Emilie Stack AST [Catalytic activity/Vol] 13 U/L Critically low 15-37 [facility] Comment on above: Performed By: #### C MP, BNP, YESI #### [facility] [address] [place] [address] Dr. Emilie Stack Bilirubin [Mass/Vol] 0.3 mg/dL Normal 0.2-1.0 [facility] Comment on above: Performed By: #### C MP, BNP, YESI #### [facility] [address] [place] [address] Dr. Emilie Stack Calcium [Mass/Vol] 8.6 mg/dL Normal 8.5-10.1 [facility] Comment on above: Performed By: #### C MP, BNP, YESI #### [facility] [address] [place] [address] Dr. Emilie Stack Chloride [Moles/Vol] 102 mmol/L Normal 98-107 [facility] Comment on above: Performed By: #### C MP, BNP, YESI #### [facility] [address] [place] [address] Dr. Emilie Stack CO2 [Moles/Vol] 26.7 mmol/L Normal 21.0-32.0 [facility] Comment on above: Performed By: #### C MP, BNP, YESI #### [facility] [address] [place] [address] Dr. Emilie Stack Creatinine [Mass/Vol] 1.23 mg/dL Normal 0.70-1.30 [facility] Comment on above: Performed By: #### C MP, BNP, YESI #### [facility] [address] [address] [address] Emilie Stack EGFR-AF JORDANIAN >60 Normal >=60 [facility] Comment on above: Performed By: #### C MP, BNP, YESI #### [facility] [address] [address] [address] Emilie Stack EGFR-NON AF JORDANIAN 58 mL/min/1.73m2 Critically low >=60 [facility] Comment on above: Performed By: #### C MP, BNP, YESI #### [facility] [address] [place] [address] Dr. Emilie Stack Globulin (S) [Mass/Vol] 3.1 g/dL Normal [facility] Comment on above: Performed By: #### C MP, BNP, YESI #### [facility] [address] [place] [address] Dr. Emilie Stack Glucose [Mass/Vol] 138 mg/dL Critically high 74-106 [facility] Comment on above: Performed By: #### C MP, BNP, YESI #### [facility] [address] [place] [address] Dr. Emilie Stack Potassium [Moles/Vol] 4.1 mmol/L Normal 3.5-5.1 [facility] Comment on above: Performed By: #### C MP, BNP, YESI #### [facility] [address] [place] [address] Dr. Emilie Stack Protein [Mass/Vol] 6.3 g/dL Critically low 6.4-8.2 [facility] Comment on above: Performed By: #### C MP, BNP, YESI #### [facility] [address] [place] [address] Dr. Emilie Stack Sodium [Moles/Vol] 138 mmol/L Normal 136-145 [facility] Comment on above: Performed By: #### C MP, BNP, YESI #### [facility] [address] [place] [address] Dr. Emilie Stack Urea nitrogen [Mass/Vol] 21.0 mg/dL Critically high 7.0-18.0 [facility] Comment on above: Performed By: #### C MP, BNP, YESI #### [facility] [address] [place] [address] Dr. Emilie Stack Urea nitrogen/Creatinine [Mass ratio] 17.1 mg/mg Normal [facility] [facility] Comment on above: Performed By: #### C MP, BNP, YESI #### [facility] [address] [place] [address] Dr. Emilie Stack THEOPHYLLINEon 08-13-2022 THEOPHYLLINE 11.5 ug/mL Normal 10.0-20.0 [facility] Comment on above: Performed By: #### C MP, BNP, YESI #### [facility] [address] [place] [address] Dr. Emilie Stack BNPon 08-12-2022 Natriuretic peptide B (Bld) [Mass/Vol] 49.0 pg/mL Normal <=900.0 [facility] Comment on above: Performed By: #### C MP, BNP, YESI #### [facility] [address] [place] [address] Dr. Emilie Stack CBC W MANUAL DIFFon 08-12-19 23 ATYPICAL LYMPH # 0.08 103/ul Normal [facility] Comment on above: Performed By: #### T ROSSY CMP, BNP #### [facility] [address] [place] [address] Dr. Emilie Stack ATYPICAL LYMPH % 1 % Normal [facility] Comment on above: Performed By: #### T ROSSY CMP, BNP #### [facility] [address] [place] [address] Dr. Emilie Stack BAND # 0.0 103/ul Normal 0.0-0.3 [facility] Comment on above: Performed By: #### T ROSSY CMP, BNP #### [facility] [address] [place] [address] Dr. Emilie Stack BAND % 0 % Normal 0-5 [facility] Comment on above: Performed By: #### T ROSSY CMP, BNP #### [facility] [address] [place] [address] Dr. Yilan Stack BASOM # 0.00 103/ul Normal 0.00-0.10 [facility] Comment on above: Performed By: #### T ROSSY, CMP, BNP #### [facility] [address] [address] [address] Emilie Stack BASOM % 0.0 % Critically low 0.2-2.0 [facility] Comment on above: Performed By: #### T ROSSY, CMP, BNP #### [facility] [address] [address] [address] Emilie Stack BLAST # Normal [facility] Comment on above: Performed By: #### T ROSSY CMP, BNP #### [facility] [address] [address] [address] Emilie Stack BLAST % Normal [facility] Comment on above: Performed By: #### T ROSSY, CMP, BNP #### [facility] [address] [address] [address] Emilie Stack CORRECTED WBC Normal 4.0-11.0 [facility] Comment on above: Performed By: #### T ROSSY, CMP, BNP #### [facility] [address] [address] [address] Emilie Stack EOS # 0.00 103/ul Normal 0.00-0.70 [facility] Comment on above: Performed By: #### T ROSSY, CMP, BNP #### [facility] [address] [address] [address] Emilie Stack EOS% 0.0 % Critically low 0.9-7.0 [facility] Comment on above: Performed By: #### T ROSSY, CMP, BNP #### [facility] [address] [address] [address] Emilie Stack HCT 41.1 % Critically low 42.0-54.0 [facility] Comment on above: Performed By: #### T ROSSY, CMP, BNP #### [facility] [address] [address] [address] Emilie Stack HGB 13.5 g/dl Critically low 14.0-18.0 [facility] Comment on above: Performed By: #### T ROSSY, CMP, BNP #### [facility] [address] [address] [address] Emilie Stack LYMPHM # 0.08 103/ul Critically low 1.20-3.80 [facility] Comment on above: Performed By: #### T ROSSY, CMP, BNP #### [facility] [address] [address] [address] Emilie Stack LYMPHM% 1.0 % Critically low 20.5-60.0 [facility] Comment on above: Performed By: #### T ROSSY, CMP, BNP #### [facility] [address] [place] [address] Dr. Emilie Stack MCH 30.2 pg Normal 25.9-34.0 [facility] Comment on above: Performed By: #### T ROSSY, CMP, BNP #### [facility] [address] [address] [address] Emilie Stack MCHC 32.8 g/dl Normal 29.9-35.2 [facility] Comment on above: Performed By: #### T ROSSY, CMP, BNP #### [facility] [address] [place] [address] Dr. Emilie Stack MCV 91.9 fL Normal 80.0-94.0 [facility] Comment on above: Performed By: #### T ROSSY, CMP, BNP #### [facility] [address] [address] [address] Emilie Stack METAMYELOCYTE # Normal [facility] Comment on above: Performed By: #### T ROSSY, CMP, BNP #### [facility] [address] [address] [address] Emilie Stack METAMYELOCYTE % Normal [facility] Comment on above: Performed By: #### T ROSSY, CMP, BNP #### [facility] [address] [place] [address] Dr. Emilie Stack MONOM# 0.00 103/ul Critically low 0.30-0.80 [facility] Comment on above: Performed By: #### T ROSSY, CMP, BNP #### [facility] [address] [address] [address] Emilie Stack MONOM% 0.0 % Critically low 1.7-12.0 [facility] Comment on above: Performed By: #### T ROSSY, CMP, BNP #### [facility] [address] [address] [address] Emilie Stack MPV 8.9 fL Critically low 9.5-13.5 [facility] Comment on above: Performed By: #### T ROSSY, CMP, BNP #### [facility] [address] [address] [address] Emilie Stack MYELOCYTE # Normal [facility] Comment on above: Performed By: #### T ROSSY, CMP, BNP #### [facility] [address] [address] [address] Emilie Stack MYELOCYTE % Normal [facility] Comment on above: Performed By: #### T ROSSY, CMP, BNP #### [facility] [address] [address] [address] Emilie Stack NRBC Normal [facility] Comment on above: Performed By: #### T ROSSY, CMP, BNP #### [facility] [address] [address] [address] Emilie Stack PLT 263 103/ul Normal 150-450 [facility] Comment on above: Performed By: #### T ROSSY, CMP, BNP #### [facility] [address] [address] [address] Emilie Stack RBC 4.47 106/ul Critically low 4.70-6.10 [facility] Comment on above: Performed By: #### T ROSSY, CMP, BNP #### [facility] [address] [address] [address] Emilie Stack RDW 14.4 % Normal 11.0-15.0 [facility] Comment on above: Performed By: #### T ROSSY, CMP, BNP #### [facility] [address] [address] [address] Emilie Stack SEG # 7.64 103/ul Critically high 1.40-6.50 [facility] Comment on above: Performed By: #### T ROSSY, CMP, BNP #### [facility] [address] [place] [address] Dr. Emilie Stack SEG % 98.0 % Critically high 43.0-75.0 [facility] Comment on above: Performed By: #### T ROSSY, CMP, BNP #### [facility] [address] [place] [address] Dr. Emilie Stack WBC 7.8 103/ul Normal 4.0-11.0 [facility] Comment on above: Performed By: #### T ROSSY CMP, BNP #### [facility] [address] [place] [address] Dr. Emilie Stack CULTURE SPUTUMon 08-12-2022 CULTURE SPUTUM Culture Observations: NORMAL RESPIRATORY TANO. Normal [facility] Comment on above: Performed By: #### T ROSSY CMP, BNP #### [facility] [address] [place] [address] Dr. Emilie Stack PROF 14(COMP METB)on 023 Albumin [Mass/Vol] 3.1 g/dL Critically low 3.4-5.0 [facility] Comment on above: Performed By: #### C MP, BNP, YESI #### [facility] [address] [place] [address] Dr. Emilie Stack Albumin/Globulin [Mass ratio] 1.0 {ratio} Normal [facility] Comment on above: Performed By: #### C MP, BNP, YESI #### [facility] [address] [place] [address] Dr. Emilie Stack ALP [Catalytic activity/Vol] 106 U/L Normal 46-116 [facility] Comment on above: Performed By: #### C MP, BNP, YESI #### [facility] [address] [place] [address] Dr. Emilie Stack ALT [Catalytic activity/Vol] 23 U/L Normal 16-63 [facility] Comment on above: Performed By: #### C MP, BNP, YESI #### [facility] [address] [address] [address] Emilie Stack Anion gap [Moles/Vol] 11.5 mmol/L Normal [facility] Comment on above: Performed By: #### C MP, BNP, YESI #### [facility] [address] [address] [address] Emilie Stack AST [Catalytic activity/Vol] 11 U/L Critically low 15-37 [facility] Comment on above: Performed By: #### C MP, BNP, YESI #### [facility] [address] [address] [address] Emilie Stack Bilirubin [Mass/Vol] 0.2 mg/dL Normal 0.2-1.0 [facility] Comment on above: Performed By: #### C MP, BNP, YESI #### [facility] [address] [place] [address] Dr. Emilie Stack Calcium [Mass/Vol] 8.6 mg/dL Normal 8.5-10.1 [facility] Comment on above: Performed By: #### C MP, BNP, YESI #### [facility] [address] [place] [address] Dr. Emilie Stack Chloride [Moles/Vol] 102 mmol/L Normal 98-107 [facility] Comment on above: Performed By: #### C MP, BNP, YESI #### [facility] [address] [address] [address] Emilie Stack CO2 [Moles/Vol] 27.3 mmol/L Normal 21.0-32.0 [facility] Comment on above: Performed By: #### C MP, BNP, YESI #### [facility] [address] [place] [address] Dr. Emilie Stack Creatinine [Mass/Vol] 1.04 mg/dL Normal 0.70-1.30 [facility] Comment on above: Performed By: #### C MP, BNP, YESI #### [facility] [address] [place] [address] Dr. Emilie Stack EGFR-AF JORDANIAN >60 Normal >=60 [facility] Comment on above: Performed By: #### C MP, BNP, YESI #### [facility] [address] [place] [address] Dr. Emilie Stack EGFR-NON AF JORDANIAN >60 Normal >=60 [facility] Comment on above: Performed By: #### C MP, BNP, YESI #### [facility] [address] [place] [address] Dr. Emilie Stack Globulin (S) [Mass/Vol] 3.0 g/dL Normal [facility] Comment on above: Performed By: #### C MP, BNP, YESI #### [facility] [address] [place] [address] Dr. Emilie Stack Glucose [Mass/Vol] 207 mg/dL Critically high 74-106 [facility] Comment on above: Performed By: #### C MP, BNP, YESI #### [facility] [address] [place] [address] Dr. Emilie Stack Potassium [Moles/Vol] 3.8 mmol/L Normal 3.5-5.1 [facility] Comment on above: Performed By: #### C MP, BNP, YESI #### [facility] [address] [place] [address] Dr. Emilie Stack Protein [Mass/Vol] 6.1 g/dL Critically low 6.4-8.2 [facility] Comment on above: Performed By: #### C MP, BNP, YESI #### [facility] [address] [place] [address] Dr. Emilie Stack Sodium [Moles/Vol] 137 mmol/L Normal 136-145 [facility] Comment on above: Performed By: #### C MP, BNP, YESI #### [facility] [address] [place] [address] Dr. Emilie Stack Urea nitrogen [Mass/Vol] 12.0 mg/dL Normal 7.0-18.0 [facility] Comment on above: Performed By: #### C MP, BNP, YESI #### [facility] [address] [address] [address] Emilie Stack Urea nitrogen/Creatinine [Mass ratio] 11.5 mg/mg Normal [facility] Comment on above: Performed By: #### C MP, BNP, YESI #### [facility] [address] [address] [address] Emilie Stack SPUTUM GRAM STAINon 08-12-19 COMMENTS Normal [facility] Comment on above: Performed By: #### C MP, BNP, YESI #### [facility] [address] [address] [address] Emilie Stack DIPHTHEROIDS Normal [facility] Comment on above: Performed By: #### C MP, BNP, YESI #### [facility] [address] [address] [address] Emilie Stack EPITHELIALS <25 Normal [facility] Comment on above: Performed By: #### C MP, BNP, YESI #### [facility] [address] [address] [address] Emilie Stack FUNGAL ELEMENTS Normal [facility] Comment on above: Performed By: #### C MP, BNP, YESI #### [facility] [address] [address] [address] Emilie JARAMILLO NEG BACILLI Normal [facility] Comment on above: Performed By: #### C MP, BNP, YESI #### [facility] [address] [address] [address] Emilie JARAMILLO NEG DIPPLOCOCCI Normal [facility] Comment on above: Performed By: #### C MP, BNP, YESI #### [facility] [address] [address] [address] Emilie JARAMILLO POS BACILLI RARE Normal [facility] Comment on above: Performed By: #### C MP, BNP, YESI #### [facility] [address] [address] [address] Emilie JARAMILLO POSITIVE COCCI MODERATE Normal [facility] Comment on above: Performed By: #### C MP, BNP, YESI #### [facility] [address] [place] [address] Dr. Emilie Stack WBC (Bld) [#/Vol] 10*3/uL Normal [facility] Comment on above: Performed By: #### C MP, BNP, YESI #### [facility] [address] [place] [address] Dr. Emilie Stack T3, TOTAL (TRIIODOTHYRONINE) on 08-12-2022 T3, TOTAL 92 ng/dL Normal 71-180 [facility] Comment on above: Performed By: #### T ROSSY, CMP, BNP #### [facility] [address] [place] [address] Dr. Emilie Stack THEOPHYLLINEon 08-12-2022 THEOPHYLLINE 10.3 ug/mL Normal 10.0-20.0 [facility] Comment on above: Performed By: #### C MP, BNP, YESI #### [facility] [address] [place] [address] Dr. Emilie Stack BNPon 08-11-2022 Natriuretic peptide B (Bld) [Mass/Vol] 79.0 pg/mL Normal <=900.0 [facility] Comment on above: Performed By: #### C MP, BNP, YESI #### [facility] [address] [place] [address] Dr. Emilie Stack CARDIAC GATITO 3-6on 3 CK [Catalytic activity/Vol] 66 U/L Normal 39-308 [facility] Comment on above: Performed By: #### T ROSSY, CMP, BNP #### [facility] [address] [place] [address] Dr. Emilie Stack CK.MB [Mass/Vol] 1.24 ng/mL Normal <=3.60 [facility] Comment on above: Performed By: #### T ROSSY, CMP, BNP #### [facility] [address] [place] [address] Dr. Emilie Stack HSTROP 5.7 pg/mL Normal 4.0-76.1 [facility] Comment on above: Result Comment: CUT- OFF POINTS HAVE BEEN ESTABLISHED BASED ON THE FOURTH UNIVERSAL DEFINITIONS OF MYOCARDIAL INFARCTION. THE UPPER REFERENCE LIMIT (URL) OF TROPONIN, DEFINED THE 99TH PERCENTILE OF cTnI DISTRIBUTION IN A REFERENCE POPULATION, HAS BEEN CONFIRMED THE DECISION THRESHOLD FOR [place] DIAGNOSIS. Performed By: #### T ROSSY, CMP, BNP #### [facility] [address] [place] [address] Dr. Emilie Stack CBC AUTO DIFFon 08-11-2022 BASO # 0.0 103/ul Normal 0.0-0.1 [facility] Comment on above: Performed By: #### C MP, BNP, YESI #### [facility] [address] [place] [address] Dr. Emilie Stack Basophils/100 WBC (Bld) 0.6 % Normal 0.2-2.0 [facility] Comment on above: Performed By: #### C MP, BNP, YESI #### [facility] [address] [place] [address] Dr. Emilie Stack EO # 0.1 103/ul Normal 0.0-0.7 [facility] Comment on above: Performed By: #### C MP, BNP, YESI #### [facility] [address] [place] [address] Dr. Emilie Stack Eosinophils/100 WBC (Bld) 1.4 % Normal 0.9-7.0 [facility] Comment on above: Performed By: #### C MP, BNP, YESI #### [facility] [address] [place] [address] Dr. Emilie Stack Erythrocyte distribution width (RBC) [Ratio] 14.8 % Normal 11.0-15.0 [facility] Comment on above: Performed By: #### C MP, BNP, YESI #### [facility] [address] [place] [address] Dr. Emilie Stack Hematocrit (Bld) [Volume fraction] 43.5 % Normal 42.0-54.0 [facility] Comment on above: Performed By: #### C MP, BNP, YESI #### [facility] [address] [place] [address] Dr. Emilie Stack Hemoglobin (Bld) [Mass/Vol] 14.2 g/dL Normal 14.0-18.0 [facility] Comment on above: Performed By: #### C MP, BNP, YESI #### [facility] [address] [place] [address] Dr. Emilie Stack IG # 0.06 10e3/ul Critically high 0.00-0.03 [facility] Comment on above: Performed By: #### C MP, BNP, YESI #### [facility] [address] [place] [address] Dr. Emilie Stack IG % 0.8 % Critically high 0.0-0.5 [facility] Comment on above: Performed By: #### C MP, BNP, YESI #### [facility] [address] [place] [address] Dr. Emilie Stack LYMPH # 1.2 103/ul Normal 1.2-3.8 [facility] Comment on above: Performed By: #### C MP, BNP, YESI #### [facility] [address] [place] [address] Dr. Emilie Stack Lymphocytes/100 WBC (Bld) 16.8 % Critically low 20.5-60.0 [facility] Comment on above: Performed By: #### C MP, BNP, YESI #### [facility] [address] [place] [address] Dr. Emilie Stack MANUAL DIFF REQ NO Normal [facility] Comment on above: Performed By: #### C MP, BNP, YESI #### [facility] [address] [place] [address] Dr. Emilie Stack MCH (RBC) [Entitic mass] 30.1 pg Normal 25.9-34.0 [facility] Comment on above: Performed By: #### C MP, BNP, YESI #### [facility] [address] [place] [address] Dr. Emilie Stack MCHC (RBC) [Mass/Vol] 32.6 g/dL Normal 29.9-35.2 [facility] Comment on above: Performed By: #### C MP, BNP, YESI #### [facility] [address] [place] [address] Dr. Emilie Stack MCV (RBC) [Entitic vol] 92.2 fL Normal 80.0-94.0 [facility] Comment on above: Performed By: #### C MP, BNP, YESI #### [facility] [address] [place] [address] Dr. Emilie Stack MONO # 1.0 103/ul Critically high 0.3-0.8 [facility] Comment on above: Performed By: #### C MP, BNP, YESI #### [facility] [address] [place] [address] Dr. Emilie Stack Monocytes/100 WBC (Bld) 14.2 % Critically high 1.7-12.0 [facility] Comment on above: Performed By: #### C MP, BNP, YESI #### [facility] [address] [place] [address] Dr. Emilie Stack NEUT # 4.8 103/ul Normal 1.4-6.5 [facility] Comment on above: Performed By: #### C MP, BNP, YESI #### [facility] [address] [place] [address] Dr. Emilie Stack Neutrophils/100 WBC (Bld) 66.2 % Normal 43.0-75.0 [facility] Comment on above: Performed By: #### C MP, BNP, YESI #### [facility] [address] [place] [address] Dr. Emilie Stack Platelet mean volume (Bld) [Entitic vol] 8.4 fL Critically low 9.5-13.5 [facility] Comment on above: Performed By: #### C MP, BNP, YESI #### [facility] [address] [place] [address] Dr. Emilie Stack PLT 277 103/ul Normal 150-450 [facility] Comment on above: Performed By: #### C MP, BNP, YESI #### [facility] [address] [place] [address] Dr. Emilie Stack RBC 4.72 106/ul Normal 4.70-6.10 [facility] Comment on above: Performed By: #### C MP, BNP, YESI #### [facility] [address] [address] [address] Emilie Stack WBC 7.3 103/ul Normal 4.0-11.0 [facility] Comment on above: Performed By: #### C MP, BNP, YESI #### [facility] [address] [place] [address] Dr. Emilie Stack CULTURE URINEon 08-11-2022 CULTURE URINE Culture Observations: NO GROWTH. Normal [facility] Comment on above: Performed By: #### T ROSSY, CMP, BNP #### [facility] [address] [place] [address] Dr. Emilie Stack PROF 14(COMP METB)on 023 Albumin [Mass/Vol] 3.2 g/dL Critically low 3.4-5.0 [facility] Comment on above: Performed By: #### C MP, BNP, YESI #### [facility] [address] [place] [address] Dr. Emilie Stack Albumin/Globulin [Mass ratio] 1.0 {ratio} Normal [facility] Comment on above: Performed By: #### C MP, BNP, YESI #### [facility] [address] [place] [address] Dr. Emilie Stack ALP [Catalytic activity/Vol] 117 U/L Critically high 46-116 [facility] Comment on above: Performed By: #### C MP, BNP, YESI #### [facility] [address] [place] [address] Dr. Emilie Stack ALT [Catalytic activity/Vol] 24 U/L Normal 16-63 [facility] Comment on above: Performed By: #### C MP, BNP, YESI #### [facility] [address] [place] [address] Dr. Emilie Stack Anion gap [Moles/Vol] 8.8 mmol/L Normal [facility] Comment on above: Performed By: #### C MP, BNP, YESI #### [facility] [address] [place], [place] [id number] Dr. Emilie Stack AST [Catalytic activity/Vol] 13 U/L Critically low 15-37 [facility] Comment on above: Performed By: #### C MP, BNP, YESI #### [facility] [address] [place] [address] Dr. Emilie Stack Bilirubin [Mass/Vol] 0.3 mg/dL Normal 0.2-1.0 [facility] Comment on above: Performed By: #### C MP, BNP, YESI #### [facility] [address] [place] [address] Dr. Emilie Stack Calcium [Mass/Vol] 8.3 mg/dL Critically low 8.5-10.1 [facility] Comment on above: Performed By: #### C MP, BNP, YESI #### [facility] [address] [place] [address] Dr. Emilie Stack Chloride [Moles/Vol] 104 mmol/L Normal 98-107 [facility] Comment on above: Performed By: #### C MP, BNP, YESI #### [facility] [address] [place] [address] Dr. Emilie Stack CO2 [Moles/Vol] 30.7 mmol/L Normal 21.0-32.0 [facility] Comment on above: Performed By: #### C MP, BNP, YESI #### [facility] [address] [place] [address] Dr. Emilie Stack Creatinine [Mass/Vol] 1.08 mg/dL Normal 0.70-1.30 [facility] Comment on above: Performed By: #### C MP, BNP, YESI #### [facility] [address] [place] [address] Dr. Emilie Stack EGFR-AF JORDANIAN >60 Normal >=60 [facility] Comment on above: Performed By: #### C MP, BNP, YESI #### [facility] [address] [place] [address] Dr. Emilie Stack EGFR-NON AF JORDANIAN >60 Normal >=60 [facility] Comment on above: Performed By: #### C MP, BNP, YESI #### [facility] [address] [address] [address] Emilie Stack Globulin (S) [Mass/Vol] 3.1 g/dL Normal [facility] Comment on above: Performed By: #### C MP, BNP, YESI #### [facility] [address] [address] [address] Emilie Stack Glucose [Mass/Vol] 76 mg/dL Normal 74-106 [facility] Comment on above: Performed By: #### C MP, BNP, YESI #### [facility] [address] [place] [address] Dr. Emilie Stack Potassium [Moles/Vol] 3.5 mmol/L Normal 3.5-5.1 [facility] Comment on above: Performed By: #### C MP, BNP, YESI #### [facility] [address] [place] [address] Dr. Emilie Stack Protein [Mass/Vol] 6.3 g/dL Critically low 6.4-8.2 [facility] Comment on above: Performed By: #### C MP, BNP, YESI #### [facility] [address] [place] [address] Dr. Emilie Stack Sodium [Moles/Vol] 140 mmol/L Normal 136-145 [facility] Comment on above: Performed By: #### C MP, BNP, YESI #### [facility] [address] [place] [address] Dr. Emilie Stack Urea nitrogen [Mass/Vol] 10.0 mg/dL Normal 7.0-18.0 [facility] Comment on above: Performed By: #### C MP, BNP, YESI #### [facility] [address] [place] [address] Dr. Emilie Stack Urea nitrogen/Creatinine [Mass ratio] 9.3 mg/mg Normal [facility] Comment on above: Performed By: #### C MP, BNP, YESI #### [facility] [address] [place] [address] Dr. Emilie Stack THEOPHYLLINEon 08-11-2022 THEOPHYLLINE 7.7 ug/mL Critically low 10.0-20.0 [facility] Comment on above: Performed By: #### C MP, BNP, YESI #### [facility] [address] [place] [address] Dr. Emilie Stack UA RANDOM W/MICROSCOPICon BACTERIA NONE SEEN Normal NONE SEEN [facility] Comment on above: Performed By: #### Patience BLAIR CMP, BNP #### [facility] [address] [place] [address] Dr. Emilie Stack Bilirubin Ql (U) Negative Normal NEGATIVE [facility] Comment on above: Performed By: #### Patience BLAIR CMP, BNP #### [facility] [address] [place] [address] Dr. Emilie Stack CAST NONE SEEN Normal NONE SEEN [facility] Comment on above: Performed By: #### Patience BLAIR CMP, BNP #### [facility] [address] [place] [address] Dr. Emilie Stack Clarity (U) CLEAR Normal CLEAR [facility] Comment on above: Performed By: #### Patience BLAIR CMP, BNP #### [facility] [address] [place] [address] Dr. Emilie Stack Color (U) LT. YELLOW Normal YELLOW [facility] Comment on above: Performed By: #### Patience BLAIR CMP, BNP #### [facility] [address] [place] [address] Dr. Emilie Stack Crystals LM Nom (Urine sed) NONE SEEN Normal NONE SEEN [facility] Comment on above: Performed By: #### Patience BLAIR CMP, BNP #### [facility] [address] [place] [address] Dr. Emilie Stack Epithelial cells LM Ql (Urine sed) NONE SEEN Normal NONE SEEN /RARE [facility] Comment on above: Performed By: #### Patience BLAIR CMP, BNP #### [facility] [address] [place] [address] Dr. Emilie Stack Glucose Ql (U) Negative Normal NEGATIVE [facility] Comment on above: Performed By: #### Patience BLAIR CMP, BNP #### [facility] [address] [address] [address] Emilie Stack Hemoglobin Ql (U) TRACE-INTACT Abnormal NEGATIVE [facility] Comment on above: Performed By: #### T ROSSY, CMP, BNP #### [facility] [address] [address] [address] Emilie Stack Ketones Ql (U) Negative Normal NEGATIVE [facility] Comment on above: Performed By: #### T ROSSY, CMP, BNP #### [facility] [address] [address] [address] Emilie Stack LEUKOCYTES Negative Normal NEGATIVE [facility] Comment on above: Performed By: #### T ROSSY, CMP, BNP #### [facility] [address] [place] [address] Dr. Emilie Stack MUCOUS NONE SEEN Normal NONE SEEN [facility] Comment on above: Performed By: #### T ROSSY, CMP, BNP #### [facility] [address] [address] [address] Emilie Stack Nitrite Ql (U) Negative Normal NEGATIVE [facility] Comment on above: Performed By: #### T ROSSY, CMP, BNP #### [facility] [address] [address] [address] Emilie Stack pH (U) 6.0 [pH] Normal 5-9 [facility] Comment on above: Performed By: #### T ROSSY, CMP, BNP #### [facility] [address] [address] [address] Emilie Stack RBC 2-5 Abnormal 0-2 [facility] Comment on above: Performed By: #### T ROSSY, CMP, BNP #### [facility] [address] [place] [address] Dr. Emilie Stack SPEC GRAVITY 1.015 Normal 1.005-<=1.025 [facility] Comment on above: Performed By: #### T ROSSY, CMP, BNP #### [facility] [address] [place] [address] Dr. Emilie Stack UA PROTEIN Negative Normal NEGATIVE/ TRACE [facility] Comment on above: Performed By: #### T ROSSY, CMP, BNP #### [facility] [address] [place] [address] Dr. Emilie Stack Urobilinogen Qn (U) 0.2 {Jose Guadalupe'U}/dL Normal 0.2 - 1. 0 [facility] Comment on above: Performed By: #### T ROSSY, CMP, BNP #### [facility] [address] [place] [address] Dr. Emilie Stack WBC 0-2 Abnormal NONE SEEN [facility] Comment on above: Performed By: #### T ROSSY, CMP, BNP #### [facility] [address] [place] [address] Dr. Emilie Stack BNPon 08-10-2022 Natriuretic peptide B (Bld) [Mass/Vol] 92.0 pg/mL Normal <=900.0 [facility] Comment on above: Performed By: #### T ROSSY, CMP, BNP #### [facility] [address] [place] [address] Dr. Emilie Stack CARDIAC GATITO 3-6on 3 CK [Catalytic activity/Vol] 56 U/L Normal 39-308 [facility] Comment on above: Performed By: #### C MP, BNP, YESI #### [facility] [address] [place] [address] Dr. Emilie Stack CK.MB [Mass/Vol] 0.95 ng/mL Normal <=3.60 [facility] Comment on above: Performed By: #### C MP, BNP, YESI #### [facility] [address] [place] [address] Dr. Emilie Stack HSTROP 5.5 pg/mL Normal 4.0-76.1 [facility] Comment on above: Result Comment: CUT- OFF POINTS HAVE BEEN ESTABLISHED BASED ON THE FOURTH UNIVERSAL DEFINITIONS OF MYOCARDIAL INFARCTION. THE UPPER REFERENCE LIMIT (URL) OF TROPONIN, DEFINED THE 99TH PERCENTILE OF cTnI DISTRIBUTION IN A REFERENCE POPULATION, HAS BEEN CONFIRMED THE DECISION THRESHOLD FOR [place] DIAGNOSIS. Performed By: #### C MP, BNP, YESI #### [facility] [address] [address] [address] Emilie Stack CARDIAC GATITO ADMITon 023 CK [Catalytic activity/Vol] 55 U/L Normal 39-308 [facility] Comment on above: Performed By: #### T ROSSY, CMP, BNP #### [facility] [address] [address] [address] Emilie Stack CK.MB [Mass/Vol] 0.94 ng/mL Normal <=3.60 [facility] Comment on above: Performed By: #### T ROSSY, CMP, BNP #### [facility] [address] [address] [address] Emilie Stack HSTROP 5.0 pg/mL Normal 4.0-76.1 [facility] Comment on above: Result Comment: CUT- OFF POINTS HAVE BEEN ESTABLISHED BASED ON THE FOURTH UNIVERSAL DEFINITIONS OF MYOCARDIAL INFARCTION. THE UPPER REFERENCE LIMIT (URL) OF TROPONIN, DEFINED THE 99TH PERCENTILE OF cTnI DISTRIBUTION IN A REFERENCE POPULATION, HAS BEEN CONFIRMED THE DECISION THRESHOLD FOR [place] DIAGNOSIS. Performed By: #### T ROSSY, CMP, BNP #### [facility] [address] [address] [address] Emilie Stack BELEN 65 ng/mL Normal 16-96 [facility] Comment on above: Performed By: #### T ROSSY, CMP, BNP #### [facility] [address] [place] [address] Dr. Emilie Stack CBC AUTO DIFFon 08-10-2022 BASO # 0.0 103/ul Normal 0.0-0.1 [facility] Comment on above: Performed By: #### C MP, BNP, YESI #### [facility] [address] [address] [address] Emilie Stack Basophils/100 WBC (Bld) 0.2 % Normal 0.2-2.0 [facility] Comment on above: Performed By: #### C MP, BNP, YESI #### [facility] [address] [address] [address] Emilie Stack EO # 0.0 103/ul Normal 0.0-0.7 [facility] Comment on above: Performed By: #### C MP, BNP, YESI #### [facility] [address] [place] [address] Dr. Emilie Stack Eosinophils/100 WBC (Bld) 0.0 % Critically low 0.9-7.0 [facility] Comment on above: Performed By: #### C MP, BNP, YESI #### [facility] [address] [place] [address] Dr. Emilie Stack Erythrocyte distribution width (RBC) [Ratio] 14.7 % Normal 11.0-15.0 [facility] Comment on above: Performed By: #### C MP, BNP, YESI #### [facility] [address] [place] [address] Dr. Emilie Stack Hematocrit (Bld) [Volume fraction] 42.7 % Normal 42.0-54.0 [facility] Comment on above: Performed By: #### C MP, BNP, YESI #### [facility] [address] [place] [address] Dr. Emilie Stack Hemoglobin (Bld) [Mass/Vol] 14.4 g/dL Normal 14.0-18.0 [facility] Comment on above: Performed By: #### C MP, BNP, YESI #### [facility] [address] [place] [address] Dr. Emilie Stack IG # 0.08 10e3/ul Critically high 0.00-0.03 [facility] Comment on above: Performed By: #### C MP, BNP, YESI #### [facility] [address] [place] [address] Dr. Emilie Stack IG % 0.9 % Critically high 0.0-0.5 [facility] Comment on above: Performed By: #### C MP, BNP, YESI #### [facility] [address] [place] [address] Dr. Emilie Stack LYMPH # 0.4 103/ul Critically low 1.2-3.8 [facility] Comment on above: Performed By: #### C MP, BNP, YEIS #### [facility] [address] [address] [address] Emilie Stack Lymphocytes/100 WBC (Bld) 4.8 % Critically low 20.5-60.0 [facility] Comment on above: Performed By: #### C MP, BNP, YESI #### [facility] [address] [address] [address] Emilie Stack MANUAL DIFF REQ NO Normal [facility] Comment on above: Performed By: #### C MP, BNP, YESI #### [facility] [address] [address] [address] Emilie Stack MCH (RBC) [Entitic mass] 30.6 pg Normal 25.9-34.0 [facility] Comment on above: Performed By: #### C MP, BNP, YESI #### [facility] [address] [place] [address] Dr. Emilie Stack MCHC (RBC) [Mass/Vol] 33.7 g/dL Normal 29.9-35.2 [facility] Comment on above: Performed By: #### C MP, BNP, YESI #### [facility] [address] [address] [address] Emilie Stack MCV (RBC) [Entitic vol] 90.9 fL Normal 80.0-94.0 [facility] Comment on above: Performed By: #### C MP, BNP, YESI #### [facility] [address] [place] [address] Dr. Emilie Stack MONO # 0.7 103/ul Normal 0.3-0.8 [facility] Comment on above: Performed By: #### C MP, BNP, YESI #### [facility] [address] [address] [address] Emilie Stack Monocytes/100 WBC (Bld) 7.6 % Normal 1.7-12.0 [facility] Comment on above: Performed By: #### C MP, BNP, YESI #### [facility] [address] [place] [address] Dr. Emilie Stack NEUT # 7.5 103/ul Critically high 1.4-6.5 [facility] Comment on above: Performed By: #### C MP, BNP, YESI #### [facility] [address] [place] [address] Dr. Emilie Stack Neutrophils/100 WBC (Bld) 86.5 % Critically high 43.0-75.0 [facility] Comment on above: Performed By: #### C MP, BNP, YESI #### [facility] [address] [place] [address] Dr. Emilie Stack Platelet mean volume (Bld) [Entitic vol] 8.7 fL Critically low 9.5-13.5 [facility] Comment on above: Performed By: #### C MP BNP, YESI #### [facility] [address] [place] [address] Dr. Emilie Stack PLT 295 103/ul Normal 150-450 [facility] Comment on above: Performed By: #### C MP, BNP, YSEI #### [facility] [address] [place] [address] Dr. Emilie Stack RBC 4.70 106/ul Normal 4.70-6.10 [facility] Comment on above: Performed By: #### C MP BNP, YESI #### [facility] [address] [place] [address] Dr. Emilie Stack WBC 8.7 103/ul Normal 4.0-11.0 [facility] Comment on above: Performed By: #### C MP, BNP, YESI #### [facility] [address] [place] [address] Dr. Emilie Stack CTA CHEST WO W CONon -15-2 023 CTA CHEST WO W CON EXAMINATION: CTA CHEST WO W CON HISTORY: shortness of breath or wheezing COMPARISON: 10/12/2021 TECHNIQUE: CT angiography of the pulmonary arteries following the administration of intravenous contrast. Coronal and sagittal MIP (maximum intensity projection) images were performed. 3-D image processing performed. Dose reduction techniques were achieved by using automated exposure control and/or adjustment of mA and/or kV according to patient size and/or use of iterative reconstruction technique. FINDINGS: The study is technically adequate for the diagnosis of pulmonary embolism, with good contrast bolus to the pulmonary arteries. TUBES AND IMPLANTS: None. CHEST WALL AND LOWER NECK: Unremarkable. BONES: Osteopenia. No suspicious lesions. Multilevel degenerative changes of the spine. UPPER ABDOMEN: Left renal cyst. No acute findings. MEDIASTINUM AND WIL: Unremarkable. AORTA: Mild atherosclerosis without aneurysm or dissection. PULMONARY ARTERIES: No embolism HEART: Not enlarged CORONARY ARTERIES: Severe coronary artery calcifications. LUNG AND AIRWAYS: Diffuse mild bronchial wall thickening. Minimal patchy groundglass opacities seen in the around the airways in the left lower lobe. PLEURA: Unremarkable. IMPRESSION: 1. No evidence for pulmonary embolism. 2. Left lower lobe patchy groundglass opacities seen on airways suggesting bronchiolitis/bronch itis 3. Severe coronary artery calcification. Electronically authenticated by: MAITE FRAZIER Date: 2022-08-10 20:52 Normal [facility] CULTURE BLOODon 08-10-2022 Microscopic examination of blood, culture Culture Observations: NO GROWTH AT 5 DAYS. Normal [facility] Comment on above: Performed By: #### Patience BLAIR CMP, BNP #### [facility] [address] [address] [address] Emilie Stack Microscopic examination of blood, culture Culture Observations: NO GROWTH AT 5 DAYS. Normal [facility] Comment on above: Performed By: #### Patience BLAIR CMP, BNP #### [facility] [address] [address] [address] Emilie Stack Cov[facility]on 07-27 SARS-CoV-2 (COVID-19) RNA [place]+probe Ql (Unsp spec) Detected Abnormal NOT DETECTED [facility] Comment on above: Result Comment: This test is not yet approved or cleared by the [place] FDA. When there are no FDA-approved or cleared tests available, and other criteria are met, FDA can make tests available under an emergency access mechanism called an Emergency Use Authorization (EUA). The EUA for this test is supported by the [place] of Health and Human Service's declaration that circumstances exist to justify the emergency use of in vitro diagnostics for the detection and/or diagnosis of the virus that causes COVID-19. This EUA will remain in effect for the duration of the COVID-19 declaration justifying emergency of IVDs, unless it is terminated or revoked by the FDA (after which the test may no longer be used). Performed By: #### Patience BLAIR CMP, BNP #### [facility] [address] [address] [address] Emilie Stack LACTATE/LACTIC ACIDon 2022 Lactate [Moles/Vol] 2.0 mmol/L Critically high 0.4-1.9 [facility] Comment on above: Performed By: #### Patience BLAIR BNP, CMP #### [facility] [address] [address] [address] Emilie Stack PROF 14(COMP METB)on 023 Albumin [Mass/Vol] 3.4 g/dL Normal 3.4-5.0 [facility] Comment on above: Performed By: #### Patience BLAIR CMP, BNP #### [facility] [address] [address] [address] Emilie Stack Albumin/Globulin [Mass ratio] 1.1 {ratio} Normal [facility] Comment on above: Performed By: #### Patience BLAIR CMP, BNP #### [facility] [address] [address] [address] Emilie Stack ALP [Catalytic activity/Vol] 123 U/L Critically high 46-116 [facility] Comment on above: Performed By: #### Patience BLAIR CMP, BNP #### [facility] [address] [address] [address] Emilie Stack ALT [Catalytic activity/Vol] 27 U/L Normal 16-63 [facility] Comment on above: Performed By: #### Patience BLAIR CMP, BNP #### [facility] [address] [address] [address] Emilie Stack Anion gap [Moles/Vol] 11.9 mmol/L Normal [facility] Comment on above: Performed By: #### Patience BLAIR CMP, BNP #### [facility] [address] [address] [address] Emilie Stack AST [Catalytic activity/Vol] 14 U/L Critically low 15-37 [facility] Comment on above: Performed By: #### T ROSSY, CMP, BNP #### [facility] [address] [address] [address] Emilie Stack Bilirubin [Mass/Vol] 0.2 mg/dL Normal 0.2-1.0 [facility] Comment on above: Performed By: #### T ROSSY, CMP, BNP #### [facility] [address] [place] [address] Dr. Emilie Stack Calcium [Mass/Vol] 8.4 mg/dL Critically low 8.5-10.1 [facility] Comment on above: Performed By: #### T ROSSY CMP, BNP #### [facility] [address] [place] [address] Dr. Emilie Stack Chloride [Moles/Vol] 105 mmol/L Normal 98-107 [facility] Comment on above: Performed By: #### T ROSSY CMP, BNP #### [facility] [address] [place] [address] Dr. Emilie Stack CO2 [Moles/Vol] 27.2 mmol/L Normal 21.0-32.0 [facility] Comment on above: Performed By: #### T ROSSY CMP, BNP #### [facility] [address] [place] [address] Dr. Emilie Stack Creatinine [Mass/Vol] 1.06 mg/dL Normal 0.70-1.30 [facility] Comment on above: Performed By: #### T ROSSY CMP, BNP #### [facility] [address] [place] [address] Dr. Emilie Stack EGFR-AF JORDANIAN >60 Normal >=60 [facility] Comment on above: Performed By: #### T ROSSY, CMP, BNP #### [facility] [address] [place] [address] Dr. Emilie Stack EGFR-NON AF JORDANIAN >60 Normal >=60 [facility] Comment on above: Performed By: #### T ROSSY, CMP, BNP #### [facility] [address] [place] [address] Dr. Emilie Stack Globulin (S) [Mass/Vol] 3.1 g/dL Normal [facility] Comment on above: Performed By: #### Patience BLAIR CMP, BNP #### [facility] [address] [address] [address] Emilie Stack Glucose [Mass/Vol] 115 mg/dL Critically high 74-106 [facility] Comment on above: Performed By: #### Patience BLAIR CMP, BNP #### [facility] [address] [address] [address] Emilie Stack Potassium [Moles/Vol] 4.1 mmol/L Normal 3.5-5.1 [facility] Comment on above: Performed By: #### Patience BLAIR CMP, BNP #### [facility] [address] [place] [address] Dr. Emilie Stack Protein [Mass/Vol] 6.5 g/dL Normal 6.4-8.2 [facility] Comment on above: Performed By: #### Patience BLAIR CMP, BNP #### [facility] [address] [place] [address] Dr. Emilie Stack Sodium [Moles/Vol] 140 mmol/L Normal 136-145 [facility] Comment on above: Performed By: #### Patience BLAIR CMP, BNP #### [facility] [address] [place] [address] Dr. Emilie Stack Urea nitrogen [Mass/Vol] 11.0 mg/dL Normal 7.0-18.0 [facility] Comment on above: Performed By: #### Patience BLAIR CMP, BNP #### [facility] [address] [place] [address] Dr. Emilie Stack Urea nitrogen/Creatinine [Mass ratio] 10.4 mg/mg Normal [facility] Comment on above: Performed By: #### Patience BLAIR CMP, BNP #### [facility] [address] [place] [address] Dr. Emilie Stack T4on 08-10-2022 T4 [Mass/Vol] 9.00 ug/dL Normal 4.50-12.[address] [facility] Comment on above: Performed By: #### T ROSSY, CMP, BNP #### [facility] [address] [place] [address] Dr. Emilie Stack THEOPHYLLINEon 08-10-2022 THEOPHYLLINE 5.1 ug/mL Critically low 10.0-20.0 [facility] Comment on above: Performed By: #### T ROSSY CMP, BNP #### [facility] [address] [place] [address] Dr. Emilie Stack TSHon 08-10-2022 TSH 0.585 uIU/mL Normal 0.358-3.[address] [facility] Comment on above: Performed By: #### T ROSSY CMP, BNP #### [facility] [address] [place] [address] Dr. Emilie Stack BNPon 06-18-2022 Natriuretic peptide B (Bld) [Mass/Vol] 297.0 pg/mL Normal <=900.0 [facility] Comment on above: Performed By: #### T ROSSY CMP, BNP #### [facility] [address] [place] [address] Dr. Emilie Stack CBC AUTO DIFFon 06-18-2022 BASO # 0.0 103/ul Normal 0.0-0.1 [facility] Comment on above: Performed By: #### T ROSSY CMP, BNP #### [facility] [address] [place] [address] Dr. Emilie Stack Basophils/100 WBC (Bld) 0.1 % Critically low 0.2-2.0 [facility] Comment on above: Performed By: #### T ROSSY, CMP, BNP #### [facility] [address] [place] [address] Dr. Emilie Stack EO # 0.0 103/ul Normal 0.0-0.7 [facility] Comment on above: Performed By: #### T ROSSY, CMP, BNP #### [facility] [address] [place] [address] Dr. Emilie Stack Eosinophils/100 WBC (Bld) 0.0 % Critically low 0.9-7.0 [facility] Comment on above: Performed By: #### T ROSSY CMP, BNP #### [facility] [address] [address] [address] Emilie Stack Erythrocyte distribution width (RBC) [Ratio] 14.5 % Normal 11.0-15.0 [facility] Comment on above: Performed By: #### T ROSSY CMP, BNP #### [facility] [address] [address] [address] Emilie Stack Hematocrit (Bld) [Volume fraction] 40.2 % Critically low 42.0-54.0 [facility] Comment on above: Performed By: #### T ROSSY CMP, BNP #### [facility] [address] [place] [address] Dr. Emilie Stack Hemoglobin (Bld) [Mass/Vol] 13.4 g/dL Critically low 14.0-18.0 [facility] Comment on above: Performed By: #### Patience BLAIR CMP, BNP #### [facility] [address] [place] [address] Dr. Emilie Stack IG # 0.08 10e3/ul Critically high 0.00-0.03 [facility] Comment on above: Performed By: #### Patience BLAIR CMP, BNP #### [facility] [address] [place] [address] Dr. Emilie Stack IG % 0.7 % Critically high 0.0-0.5 [facility] Comment on above: Performed By: #### T ROSSY CMP, BNP #### [facility] [address] [place] [address] Dr. Emilie Stack LYMPH # 0.5 103/ul Critically low 1.2-3.8 [facility] Comment on above: Performed By: #### T ROSSY CMP, BNP #### [facility] [address] [place] [address] Dr. Emilie Stack Lymphocytes/100 WBC (Bld) 4.4 % Critically low 20.5-60.0 [facility] Comment on above: Performed By: #### T ROSSY CMP, BNP #### [facility] [address] [address] [address] Emilie Stack MANUAL DIFF REQ NO Normal [facility] Comment on above: Performed By: #### T ROSSY, CMP, BNP #### [facility] [address] [address] [address] Emilie Stack MCH (RBC) [Entitic mass] 30.0 pg Normal 25.9-34.0 [facility] Comment on above: Performed By: #### T ROSSY, CMP, BNP #### [facility] [address] [place] [address] Dr. Emilie Stack MCHC (RBC) [Mass/Vol] 33.3 g/dL Normal 29.9-35.2 [facility] Comment on above: Performed By: #### T ROSSY, CMP, BNP #### [facility] [address] [place] [address] Dr. Emilie Stack MCV (RBC) [Entitic vol] 89.9 fL Normal 80.0-94.0 [facility] Comment on above: Performed By: #### T ROSSY, CMP, BNP #### [facility] [address] [address] [address] Emilie Stack MONO # 0.5 103/ul Normal 0.3-0.8 [facility] Comment on above: Performed By: #### T ROSSY, CMP, BNP #### [facility] [address] [address] [address] Emilie Stack Monocytes/100 WBC (Bld) 4.3 % Normal 1.7-12.0 [facility] Comment on above: Performed By: #### T ROSSY, CMP, BNP #### [facility] [address] [address] [address] Emilie Stack NEUT # 10.8 103/ul Critically high 1.4-6.5 The [facility] Comment on above: Performed By: #### T ROSSY, CMP, BNP #### [facility] [address] [address] [address] Emilie Stack Neutrophils/100 WBC (Bld) 90.5 % Critically high 43.0-75.0 [facility] Comment on above: Performed By: #### Patience BLAIR CMP, BNP #### [facility] [address] [address] [address] Emilie Stack Platelet mean volume (Bld) [Entitic vol] 8.5 fL Critically low 9.5-13.5 [facility] Comment on above: Performed By: #### Patience BLAIR CMP, BNP #### [facility] [address] [address] [address] Emilie Stack PLT 309 103/ul Normal 150-450 [facility] Comment on above: Performed By: #### Patience BLAIR CMP, BNP #### [facility] [address] [place] [address] Dr. Emilie Stack RBC 4.47 106/ul Critically low 4.70-6.10 [facility] Comment on above: Performed By: #### Patience BLAIR CMP, BNP #### [facility] [address] [address] [address] Emilie Stack WBC 11.9 103/ul Critically high 4.0-11.0 [facility] Comment on above: Performed By: #### Patience BLAIR CMP, BNP #### [facility] [address] [address] [address] Emilie Stack PROF 14(COMP METB)on 06-18-2 022 Albumin [Mass/Vol] 3.4 g/dL Normal 3.4-5.0 [facility] Comment on above: Performed By: #### Patience BLAIR CMP, BNP #### [facility] [address] [place] [address] Dr. Emilie Stack Albumin/Globulin [Mass ratio] 1.0 {ratio} Normal [facility] Comment on above: Performed By: #### Patience BLAIR CMP, BNP #### [facility] [address] [place] [address] Dr. Emilie Stack ALP [Catalytic activity/Vol] 120 U/L Critically high 46-116 [facility] Comment on above: Performed By: #### Patience BLAIR CMP, BNP #### [facility] [address] [address] [address] Emilie Stack ALT [Catalytic activity/Vol] 17 U/L Normal 16-63 [facility] Comment on above: Performed By: #### T ROSSY CMP, BNP #### [facility] [address] [address] [address] Emilie Stack Anion gap [Moles/Vol] 13.3 mmol/L Normal [facility] Comment on above: Performed By: #### T ROSSY CMP, BNP #### [facility] [address] [address] [address] Emilie Stack AST [Catalytic activity/Vol] 15 U/L Normal 15-37 [facility] Comment on above: Performed By: #### Patience BLAIR CMP, BNP #### [facility] [address] [place] [address] Dr. Emilie Stack Bilirubin [Mass/Vol] 0.2 mg/dL Normal 0.2-1.0 [facility] Comment on above: Performed By: #### Patience BLAIR CMP, BNP #### [facility] [address] [address] [address] Emilie Stack Calcium [Mass/Vol] 8.5 mg/dL Normal 8.5-10.1 [facility] Comment on above: Performed By: #### Patience BLAIR CMP, BNP #### [facility] [address] [place] [address] Dr. Emilie Stack Chloride [Moles/Vol] 102 mmol/L Normal 98-107 [facility] Comment on above: Performed By: #### T ROSSY, CMP, BNP #### [facility] [address] [place] [address] Dr. Emilie Stack CO2 [Moles/Vol] 24.1 mmol/L Normal 21.0-32.0 [facility] Comment on above: Performed By: #### T ROSSY, CMP, BNP #### [facility] [address] [address] [address] Emilie Stack Creatinine [Mass/Vol] 1.12 mg/dL Normal 0.70-1.30 [facility] Comment on above: Performed By: #### T ROSSY, CMP, BNP #### [facility] [address] [address] [address] Emilie Stack EGFR-AF JORDANIAN >60 Normal >=60 [facility] Comment on above: Performed By: #### T ROSSY, CMP, BNP #### [facility] [address] [address] [address] Emilie Stack EGFR-NON AF JORDANIAN >60 Normal >=60 [facility] Comment on above: Performed By: #### T ROSSY, CMP, BNP #### [facility] [address] [address] [address] Emilie Stack Globulin (S) [Mass/Vol] 3.3 g/dL Normal [facility] Comment on above: Performed By: #### T ROSSY, CMP, BNP #### [facility] [address] [address] [address] Emilie Stack Glucose [Mass/Vol] 138 mg/dL Critically high 74-106 [facility] Comment on above: Performed By: #### T ROSSY CMP, BNP #### [facility] [address] [address] [address] Emilie Stack Potassium [Moles/Vol] 4.4 mmol/L Normal 3.5-5.1 [facility] Comment on above: Performed By: #### T ROSSY, CMP, BNP #### [facility] [address] [address] [address] Emilie tSack Protein [Mass/Vol] 6.7 g/dL Normal 6.4-8.2 [facility] Comment on above: Performed By: #### T ROSSY, CMP, BNP #### [facility] [address] [address] [address] Emilie Stack Sodium [Moles/Vol] 135 mmol/L Critically low 136-145 [facility] Comment on above: Performed By: #### T ROSSY, CMP, BNP #### [facility] [address] [address] [address] Emilie Stack Urea nitrogen [Mass/Vol] 23.0 mg/dL Critically high 7.0-18.0 [facility] Comment on above: Performed By: #### T ROSSY, CMP, BNP #### [facility] [address] [place] [address] Dr. Emilie Stack Urea nitrogen/Creatinine [Mass ratio] 20.5 mg/mg Normal [facility] Comment on above: Performed By: #### T ROSSY, CMP, BNP #### [facility] [address] [place] [address] Dr. Emilie Stack THEOPHYLLINEon 06-18-2022 THEOPHYLLINE 9.0 ug/mL Critically low 10.0-20.0 The [facility] Comment on above: Performed By: #### T ROSSY CMP, BNP #### [facility] [address] [place] [address] Dr. Emilie Stack BNPon 06-17-2022 Natriuretic peptide B (Bld) [Mass/Vol] 320.0 pg/mL Normal <=900.0 [facility] Comment on above: Performed By: #### T ROSSY, BNP, CMP #### [facility] [address] [place] [address] Dr. Emilie Stack CBC AUTO DIFFon 06-17-2022 BASO # 0.0 103/ul Normal 0.0-0.1 [facility] Comment on above: Performed By: #### T ORSSY CMP, BNP #### [facility] [address] [place] [address] Dr. Emilie Stack Basophils/100 WBC (Bld) 0.1 % Critically low 0.2-2.0 [facility] Comment on above: Performed By: #### T ROSSY, CMP, BNP #### [facility] [address] [place] [address] Dr. Emilie Stack EO # 0.0 103/ul Normal 0.0-0.7 [facility] Comment on above: Performed By: #### T ROSSY, CMP, BNP #### [facility] [address] [place] [address] Dr. Emilie Stack Eosinophils/100 WBC (Bld) 0.0 % Critically low 0.9-7.0 [facility] Comment on above: Performed By: #### Patience BLAIR CMP, BNP #### [facility] [address] [place] [address] Dr. Emilie Stack Erythrocyte distribution width (RBC) [Ratio] 14.3 % Normal 11.0-15.0 [facility] Comment on above: Performed By: #### Patience BLAIR CMP, BNP #### [facility] [address] [place] [address] Dr. Emilie Stack Hematocrit (Bld) [Volume fraction] 41.7 % Critically low 42.0-54.0 [facility] Comment on above: Performed By: #### Patience BLAIR CMP, BNP #### [facility] [address] [place] [address] Dr. Emilie Stack Hemoglobin (Bld) [Mass/Vol] 13.8 g/dL Critically low 14.0-18.0 [facility] Comment on above: Performed By: #### Patience BLAIR CMP, BNP #### [facility] [address] [place] [address] Dr. Emilie Stack IG # 0.09 10e3/ul Critically high 0.00-0.03 [facility] Comment on above: Performed By: #### Patience BLAIR CMP, BNP #### [facility] [address] [place] [address] Dr. Emilie Stack IG % 0.6 % Critically high 0.0-0.5 [facility] Comment on above: Performed By: #### Patience BLAIR CMP, BNP #### [facility] [address] [place] [address] Dr. Emilie Stack LYMPH # 0.6 103/ul Critically low 1.2-3.8 [facility] Comment on above: Performed By: #### Patience BLAIR CMP, BNP #### [facility] [address] [place] [address] Dr. Emilie Stack Lymphocytes/100 WBC (Bld) 4.1 % Critically low 20.5-60.0 [facility] Comment on above: Performed By: #### T ROSSY, CMP, BNP #### [facility] [address] [place] [address] Dr. Emilie Stack MANUAL DIFF REQ NO Normal [facility] Comment on above: Performed By: #### T ROSSY, CMP, BNP #### [facility] [address] [place] [address] Dr. Emilie Stack MCH (RBC) [Entitic mass] 29.9 pg Normal 25.9-34.0 [facility] Comment on above: Performed By: #### T ROSSY, CMP, BNP #### [facility] [address] [place] [address] Dr. Emilie Stack MCHC (RBC) [Mass/Vol] 33.1 g/dL Normal 29.9-35.2 [facility] Comment on above: Performed By: #### T ROSSY, CMP, BNP #### [facility] [address] [place] [address] Dr. Emilei Stack MCV (RBC) [Entitic vol] 90.5 fL Normal 80.0-94.0 [facility] Comment on above: Performed By: #### T ROSSY, CMP, BNP #### [facility] [address] [place] [address] Dr. Emilie Stack MONO # 0.5 103/ul Normal 0.3-0.8 [facility] Comment on above: Performed By: #### T ROSSY, CMP, BNP #### [facility] [address] [place] [address] Dr. Emilie Stack Monocytes/100 WBC (Bld) 3.4 % Normal 1.7-12.0 [facility] Comment on above: Performed By: #### T ROSSY, CMP, BNP #### [facility] [address] [place] [address] Dr. Emilie Stack NEUT # 13.1 103/ul Critically high 1.4-6.5 [facility] Comment on above: Performed By: #### T ROSSY, CMP, BNP #### [facility] [address] [place] [address] Dr. Emilie Stack Neutrophils/100 WBC (Bld) 91.8 % Critically high 43.0-75.0 [facility] Comment on above: Performed By: #### Patience BLAIR CMP, BNP #### [facility] [address] [address] [address] Emilie Stack Platelet mean volume (Bld) [Entitic vol] 8.8 fL Critically low 9.5-13.5 [facility] Comment on above: Performed By: #### Patience BLAIR CMP, BNP #### [facility] [address] [address] [address] Emilie Stack PLT 341 103/ul Normal 150-450 [facility] Comment on above: Performed By: #### Patience BLAIR CMP, BNP #### [facility] [address] [place] [address] Dr. Emilie Stack RBC 4.61 106/ul Critically low 4.70-6.10 [facility] Comment on above: Performed By: #### Patience BLAIR CMP, BNP #### [facility] [address] [place] [address] Dr. Emilie Stack WBC 14.3 103/ul Critically high 4.0-11.0 [facility] Comment on above: Performed By: #### Patience BLAIR CMP, BNP #### [facility] [address] [place] [address] Dr. Emilie Stack PROF 14(COMP METB)on 022 Albumin [Mass/Vol] 3.8 g/dL Normal 3.4-5.0 [facility] Comment on above: Performed By: #### Patience BLAIR, BNP, CMP #### [facility] [address] [place] [address] Dr. Emilie Stack Albumin/Globulin [Mass ratio] 1.1 {ratio} Normal [facility] Comment on above: Performed By: #### T ROSSY BNP, CMP #### [facility] [address] [address] [address] Emilie Stack ALP [Catalytic activity/Vol] 139 U/L Critically high 46-116 [facility] Comment on above: Performed By: #### Patience BLAIR BNP, CMP #### [facility] [address] [address] [address] Emilie Stack ALT [Catalytic activity/Vol] 20 U/L Normal 16-63 [facility] Comment on above: Performed By: #### T ROSSY, BNP, CMP #### [facility] [address] [address] [address] Emilie Stack Anion gap [Moles/Vol] 15.1 mmol/L Normal [facility] Comment on above: Performed By: #### T ROSSY, BNP, CMP #### [facility] [address] [address] [address] Emilie Stack AST [Catalytic activity/Vol] 16 U/L Normal 15-37 [facility] Comment on above: Performed By: #### T ROSSY, BNP, CMP #### [facility] [address] [address] [address] Emilie Stack Bilirubin [Mass/Vol] 0.2 mg/dL Normal 0.2-1.0 [facility] Comment on above: Performed By: #### T ROSSY, BNP, CMP #### [facility] [address] [address] [address] Emilie Stack Calcium [Mass/Vol] 9.2 mg/dL Normal 8.5-10.1 [facility] Comment on above: Performed By: #### T ROSSY, BNP, CMP #### [facility] [address] [address] [address] Emilie Stack Chloride [Moles/Vol] 102 mmol/L Normal 98-107 [facility] Comment on above: Performed By: #### T ROSSY, BNP, CMP #### [facility] [address] [address] [address] Emilie Stack CO2 [Moles/Vol] 23.2 mmol/L Normal 21.0-32.0 [facility] Comment on above: Performed By: #### T ROSSY, BNP, CMP #### [facility] [address] [address] [address] Emilie Stack Creatinine [Mass/Vol] 1.16 mg/dL Normal 0.70-1.30 [facility] Comment on above: Performed By: #### T ROSSY, BNP, CMP #### [facility] [address] [place] [address] Dr. Emilie Stack EGFR-AF JORDANIAN >60 Normal >=60 [facility] Comment on above: Performed By: #### T ROSSY, BNP, CMP #### [facility] [address] [place] [address] Dr. Emilie Stack EGFR-NON AF JORDANIAN >60 Normal >=60 [facility] Comment on above: Performed By: #### T ROSSY, BNP, CMP #### [facility] [address] [place] [address] Dr. Emilie Stack Globulin (S) [Mass/Vol] 3.6 g/dL Normal [facility] Comment on above: Performed By: #### T ROSSY, BNP, CMP #### [facility] [address] [place] [address] Dr. Emilie Stack Glucose [Mass/Vol] 138 mg/dL Critically high 74-106 [facility] Comment on above: Performed By: #### T ROSSY, BNP, CMP #### [facility] [address] [place] [address] Dr. Emilie Stack Potassium [Moles/Vol] 4.3 mmol/L Normal 3.5-5.1 [facility] Comment on above: Performed By: #### T ROSSY, BNP, CMP #### [facility] [address] [place] [address] Dr. Emilie Stack Protein [Mass/Vol] 7.4 g/dL Normal 6.4-8.2 [facility] Comment on above: Performed By: #### T ROSSY, BNP, CMP #### [facility] [address] [place] [address] Dr. Emilie Stack Sodium [Moles/Vol] 136 mmol/L Normal 136-145 [facility] Comment on above: Performed By: #### T ROSSY, BNP, CMP #### [facility] [address] [place] [address] Dr. Emilie Stack Urea nitrogen [Mass/Vol] 19.0 mg/dL Critically high 7.0-18.0 [facility] Comment on above: Performed By: #### T ROSSY BNP, CMP #### [facility] [address] [place] [address] Dr. Emilie Stack Urea nitrogen/Creatinine [Mass ratio] 16.4 mg/mg Normal [facility] Comment on above: Performed By: #### T ROSSY BNP, CMP #### [facility] [address] [place] [address] Dr. Emilie Stack THEOPHYLLINEon 06-17-2022 THEOPHYLLINE 8.3 ug/mL Critically low 10.0-20.0 [facility] Comment on above: Performed By: #### T ROSSY BNP, CMP #### [facility] [address] [place] [address] Dr. Emilie Stack BNPon 06-16-2022 Natriuretic peptide B (Bld) [Mass/Vol] 73.0 pg/mL Normal <=900.0 [facility] Comment on above: Performed By: #### C MP, BNP, YESI #### [facility] [address] [place] [address] Dr. Emilie Stack CBC W MANUAL DIFFon 06-16-20 22 ATYPICAL LYMPH # Normal [facility] Comment on above: Performed By: #### C MP, BNP, YESI #### [facility] [address] [place] [address] Dr. Emilie Stack ATYPICAL LYMPH % Normal [facility] Comment on above: Performed By: #### C MP, BNP, YESI #### [facility] [address] [place] [address] Dr. Emilie Stack BAND # 0.0 103/ul Normal 0.0-0.3 [facility] Comment on above: Performed By: #### C MP, BNP, YESI #### [facility] [address] [place] [address] Dr. Emilie Stack BAND % 0 % Normal 0-5 [facility] Comment on above: Performed By: #### C MP, BNP, YESI #### [facility] [address] [address] [address] Emilie Stack BASOM # 0.00 103/ul Normal 0.00-0.10 [facility] Comment on above: Performed By: #### C MP, BNP, YESI #### [facility] [address] [address] [address] Emilie Stack BASOM % 0.0 % Critically low 0.2-2.0 [facility] Comment on above: Performed By: #### C MP, BNP, YESI #### [facility] [address] [place] [address] Dr. Emilie Stack BLAST # Normal [facility] Comment on above: Performed By: #### C MP, BNP, YESI #### [facility] [address] [place] [address] Dr. Emilie Stack BLAST % Normal [facility] Comment on above: Performed By: #### C MP, BNP, YESI #### [facility] [address] [place] [address] Dr. Emilie Stack CORRECTED WBC Normal 4.0-11.0 [facility] Comment on above: Performed By: #### C MP, BNP, YESI #### [facility] [address] [place] [address] Dr. Emilie Stack EOS # 0.00 103/ul Normal 0.00-0.70 [facility] Comment on above: Performed By: #### C MP, BNP, YESI #### [facility] [address] [place] [address] Dr. Emilie Stack EOS% 0.0 % Critically low 0.9-7.0 [facility] Comment on above: Performed By: #### C MP, BNP, YESI #### [facility] [address] [place] [address] Dr. Emilie Stack HCT 41.2 % Critically low 42.0-54.0 [facility] Comment on above: Performed By: #### C MP, BNP, YESI #### [facility] [address] [place] [address] Dr. Emilie Stack HGB 13.7 g/dl Critically low 14.0-18.0 [facility] Comment on above: Performed By: #### C MP, BNP, YESI #### [facility] [address] [place] [address] Dr. Emilie Stack LYMPHM # 0.42 103/ul Critically low 1.20-3.80 [facility] Comment on above: Performed By: #### C MP, BNP, YESI #### [facility] [address] [place] [address] Dr. Emilie Stack LYMPHM% 5.0 % Critically low 20.5-60.0 [facility] Comment on above: Performed By: #### C MP, BNP, YESI #### [facility] [address] [place] [address] Dr. Emilie Stack MCH 30.2 pg Normal 25.9-34.0 [facility] Comment on above: Performed By: #### C MP, BNP, YESI #### [facility] [address] [place] [address] Dr. Emilie Stack MCHC 33.3 g/dl Normal 29.9-35.2 [facility] Comment on above: Performed By: #### C MP, BNP, YESI #### [facility] [address] [place] [address] Dr. Emilie Stack MCV 90.7 fL Normal 80.0-94.0 [facility] Comment on above: Performed By: #### C MP, BNP, YESI #### [facility] [address] [place] [address] Dr. Emilie Stack METAMYELOCYTE # Normal [facility] Comment on above: Performed By: #### C MP, BNP, YESI #### [facility] [address] [place] [address] Dr. Emilie Stack METAMYELOCYTE % Normal [facility] Comment on above: Performed By: #### C MP, BNP, YESI #### [facility] [address] [place] [address] Dr. Emilie Stack MONOM# 0.00 103/ul Critically low 0.30-0.80 [facility] Comment on above: Performed By: #### C MP, BNP, YESI #### [facility] [address] [place] [address] Dr. Emilie Stack MONOM% 0.0 % Critically low 1.7-12.0 [facility] Comment on above: Performed By: #### C MP, BNP, YESI #### [facility] [address] [place] [address] Dr. Emilie Stack MPV 8.7 fL Critically low 9.5-13.5 [facility] Comment on above: Performed By: #### C MP, BNP, YESI #### [facility] [address] [place] [address] Dr. Emilie Stack MYELOCYTE # Normal [facility] Comment on above: Performed By: #### C MP, BNP, YESI #### [facility] [address] [place] [address] Dr. Emilie Stack MYELOCYTE % Normal [facility] Comment on above: Performed By: #### C MP, BNP, YESI #### [facility] [address] [place] [address] Dr. Emilie Stack NRBC Normal [facility] Comment on above: Performed By: #### C MP, BNP, YESI #### [facility] [address] [place] [address] Dr. Emilie Stack PLT 286 103/ul Normal 150-450 [facility] Comment on above: Performed By: #### C MP, BNP, YESI #### [facility] [address] [place] [address] Dr. Emilie Stack RBC 4.54 106/ul Critically low 4.70-6.10 [facility] Comment on above: Performed By: #### C MP, BNP, YESI #### [facility] [address] [place] [address] Dr. Emilie Stack RDW 13.7 % Normal 11.0-15.0 [facility] Comment on above: Performed By: #### C MP, BNP, YESI #### [facility] [address] [place] [address] Dr. Emilie Stack SEG # 7.98 103/ul Critically high 1.40-6.50 [facility] Comment on above: Performed By: #### C MP, BNP, YESI #### [facility] [address] [place] [address] Dr. Emilie Stack SEG % 95.0 % Critically high 43.0-75.0 [facility] Comment on above: Performed By: #### C MP, BNP, YESI #### [facility] [address] [place] [address] Dr. Emilie Stack WBC 8.4 103/ul Normal 4.0-11.0 [facility] Comment on above: Performed By: #### C MP, BNP, YESI #### [facility] [address] [place] [address] Dr. Emilie Stack PROF 14(COMP METB)on 06-16- 022 Albumin [Mass/Vol] 3.5 g/dL Normal 3.4-5.0 [facility] Comment on above: Performed By: #### C MP, BNP, YESI #### [facility] [address] [place] [address] Dr. Emilie Stack Albumin/Globulin [Mass ratio] 1.0 {ratio} Normal [facility] Comment on above: Performed By: #### C MP, BNP, YESI #### [facility] [address] [place] [address] Dr. Emilie Stack ALP [Catalytic activity/Vol] 137 U/L Critically high 46-116 [facility] Comment on above: Performed By: #### C MP, BNP, YESI #### [facility] [address] [place] [address] Dr. Emilie Stack ALT [Catalytic activity/Vol] 22 U/L Normal 16-63 [facility] Comment on above: Performed By: #### C MP, BNP, YESI #### [facility] [address] [place] [address] Dr. Emilie Stack Anion gap [Moles/Vol] 15.3 mmol/L Normal [facility] Comment on above: Performed By: #### C MP, BNP, YESI #### [facility] [address] [address] [address] Emilie Stack AST [Catalytic activity/Vol] 13 U/L Critically low 15-37 [facility] Comment on above: Performed By: #### C MP, BNP, YESI #### [facility] [address] [address] [address] Emilie Stack Bilirubin [Mass/Vol] 0.1 mg/dL Critically low 0.2-1.0 [facility] Comment on above: Performed By: #### C MP, BNP, YESI #### [facility] [address] [place] [address] Dr. Emilie Stack Calcium [Mass/Vol] 9.2 mg/dL Normal 8.5-10.1 [facility] Comment on above: Performed By: #### C MP, BNP, YESI #### [facility] [address] [place] [address] Dr. Emilie Stack Chloride [Moles/Vol] 101 mmol/L Normal 98-107 [facility] Comment on above: Performed By: #### C MP, BNP, YESI #### [facility] [address] [place] [address] Dr. Emilie Stack CO2 [Moles/Vol] 21.4 mmol/L Normal 21.0-32.0 [facility] Comment on above: Performed By: #### C MP, BNP, YESI #### [facility] [address] [place] [address] Dr. Emilie Stack Creatinine [Mass/Vol] 1.26 mg/dL Normal 0.70-1.30 [facility] Comment on above: Performed By: #### C MP, BNP, YESI #### [facility] [address] [place] [address] Dr. Emilie Stack EGFR-AF JORDANIAN >60 Normal >=60 [facility] Comment on above: Performed By: #### C MP, BNP, YESI #### [facility] [address] [address] [address] Emilie Stack EGFR-NON AF JORDANIAN 56 mL/min/1.73m2 Critically low >=60 [facility] Comment on above: Performed By: #### C MP, BNP, YESI #### [facility] [address] [address] [address] Emilie Stack Globulin (S) [Mass/Vol] 3.5 g/dL Normal [facility] Comment on above: Performed By: #### C MP, BNP, YESI #### [facility] [address] [address] [address] Emilie Stack Glucose [Mass/Vol] 159 mg/dL Critically high 74-106 [facility] Comment on above: Performed By: #### C MP, BNP, YESI #### [facility] [address] [place] [address] Dr. Emilie Stack Potassium [Moles/Vol] 3.7 mmol/L Normal 3.5-5.1 [facility] Comment on above: Performed By: #### C MP, BNP, YESI #### [facility] [address] [address] [address] Emilie Stack Protein [Mass/Vol] 7.0 g/dL Normal 6.4-8.2 [facility] Comment on above: Performed By: #### C MP, BNP, YESI #### [facility] [address] [address] [address] Emilie Stack Sodium [Moles/Vol] 134 mmol/L Critically low 136-145 [facility] Comment on above: Performed By: #### C MP, BNP, YESI #### [facility] [address] [address] [address] Emilie Stack Urea nitrogen [Mass/Vol] 23.0 mg/dL Critically high 7.0-18.0 [facility] Comment on above: Performed By: #### C MP, BNP, YESI #### [facility] [address] [address] [address] Emilie Stack Urea nitrogen/Creatinine [Mass ratio] 18.3 mg/mg Normal [facility] Comment on above: Performed By: #### C MP, BNP, YESI #### [facility] [address] [place] [address] Dr. Emilie Stack T3, TOTAL (TRIIODOTHYRONINE) on 06-16-2022 T3, TOTAL 128 ng/dL Normal 71-180 [facility] Comment on above: Performed By: #### T ROSSY, CMP, BNP #### [facility] [address] [address] [address] Emilie Stack THEOPHYLLINEon 06-16-2022 THEOPHYLLINE 5.9 ug/mL Critically low 10.0-20.0 [facility] Comment on above: Performed By: #### T ROSSY, BNP, CMP #### [facility] [address] [place] [address] Dr. Emilie Stack BNPon 06-15-2022 Natriuretic peptide B (Bld) [Mass/Vol] 30.0 pg/mL Normal <=900.0 [facility] Comment on above: Performed By: #### C MP, BNP, YESI #### [facility] [address] [place] [address] Dr. Emilie Stack CARDIAC GATITO 3-6on 2 CK [Catalytic activity/Vol] 110 U/L Normal 39-308 [facility] Comment on above: Performed By: #### C MP, BNP, YESI #### [facility] [address] [place] [address] Dr. Emilie Stack CK.MB [Mass/Vol] 1.64 ng/mL Normal <=3.60 [facility] Comment on above: Performed By: #### C MP, BNP, YESI #### [facility] [address] [place] [address] Dr. Emilie Stack HSTROP 6.1 pg/mL Normal 4.0-76.1 [facility] Comment on above: Result Comment: CUT- OFF POINTS HAVE BEEN ESTABLISHED BASED ON THE FOURTH UNIVERSAL DEFINITIONS OF MYOCARDIAL INFARCTION. THE UPPER REFERENCE LIMIT (URL) OF TROPONIN, DEFINED THE 99TH PERCENTILE OF cTnI DISTRIBUTION IN A REFERENCE POPULATION, HAS BEEN CONFIRMED THE DECISION THRESHOLD FOR [place] DIAGNOSIS. Performed By: #### C MP, BNP, YESI #### [facility] [address] [address] [address] Emilie Stack Performed By: #### T ROSSY, CMP, BNP #### [facility] [address] [address] [address] Emilie Stack CK [Catalytic activity/Vol] 125 U/L Normal 39-308 [facility] Comment on above: Performed By: #### T ROSSY, CMP, BNP #### [facility] [address] [address] [address] Emilie Stack CK.MB [Mass/Vol] 1.83 ng/mL Normal <=3.60 [facility] Comment on above: Performed By: #### T ROSSY, CMP, BNP #### [facility] [address] [place] [address] Dr. Emilie Stack CARDIAC GATITO ADMITon 022 CK [Catalytic activity/Vol] 129 U/L Normal 39-308 [facility] Comment on above: Performed By: #### C MP, BNP, YESI #### [facility] [address] [place] [address] Dr. Emilie Stack CK.MB [Mass/Vol] 1.68 ng/mL Normal <=3.60 [facility] Comment on above: Performed By: #### C MP, BNP, YESI #### [facility] [address] [place] [address] Dr. Emilie Stack HSTROP 6.6 pg/mL Normal 4.0-76.1 [facility] Comment on above: Result Comment: CUT- OFF POINTS HAVE BEEN ESTABLISHED BASED ON THE FOURTH UNIVERSAL DEFINITIONS OF MYOCARDIAL INFARCTION. THE UPPER REFERENCE LIMIT (URL) OF TROPONIN, DEFINED THE 99TH PERCENTILE OF cTnI DISTRIBUTION IN A REFERENCE POPULATION, HAS BEEN CONFIRMED THE DECISION THRESHOLD FOR [place] DIAGNOSIS. Performed By: #### C MP, BNP, YESI #### [facility] [address] [place] [address] Dr. Emilie Stack BELEN 85 ng/mL Normal 16-96 [facility] Comment on above: Performed By: #### C MP, BNP, YESI #### [facility] [address] [place] [address] Dr. Emilie Stack CBC AUTO DIFFon 06-15-2022 BASO # 0.1 103/ul Normal 0.0-0.1 [facility] Comment on above: Performed By: #### C MP, BNP, YESI #### [facility] [address] [place] [address] Dr. Emilie Stack Basophils/100 WBC (Bld) 0.8 % Normal 0.2-2.0 [facility] Comment on above: Performed By: #### C MP, BNP, YESI #### [facility] [address] [place] [address] Dr. Emilie Stack EO # 0.2 103/ul Normal 0.0-0.7 [facility] Comment on above: Performed By: #### C MP, BNP, YESI #### [facility] [address] [place] [address] Dr. Emilie Stack Eosinophils/100 WBC (Bld) 4.1 % Normal 0.9-7.0 [facility] Comment on above: Performed By: #### C MP, BNP, YESI #### [facility] [address] [place] [address] Dr. Emilie Stack Erythrocyte distribution width (RBC) [Ratio] 13.8 % Normal 11.0-15.0 [facility] Comment on above: Performed By: #### C MP, BNP, YESI #### [facility] [address] [place] [address] Dr. Emilie Stack Hematocrit (Bld) [Volume fraction] 45.8 % Normal 42.0-54.0 [facility] Comment on above: Performed By: #### C MP, BNP, YESI #### [facility] [address] [place] [address] Dr. Emilie Stack Hemoglobin (Bld) [Mass/Vol] 15.1 g/dL Normal 14.0-18.0 [facility] Comment on above: Performed By: #### C MP, BNP, YESI #### [facility] [address] [place] [address] Dr. Emilie Stack IG # 0.02 10e3/ul Normal 0.00-0.03 [facility] Comment on above: Performed By: #### C MP, BNP, YESI #### [facility] [address] [place] [address] Dr. Emilie Stack IG % 0.3 % Normal 0.0-0.5 [facility] Comment on above: Performed By: #### C MP, BNP, YESI #### [facility] [address] [place] [address] Dr. Emilie Stack LYMPH # 1.5 103/ul Normal 1.2-3.8 [facility] Comment on above: Performed By: #### C MP, BNP, YESI #### [facility] [address] [place] [address] Dr. Emilie Stack Lymphocytes/100 WBC (Bld) 25.3 % Normal 20.5-60.0 [facility] Comment on above: Performed By: #### C MP, BNP, YESI #### [facility] [address] [place] [address] Dr. Emilie Stack MANUAL DIFF REQ NO Normal [facility] Comment on above: Performed By: #### C MP, BNP, YESI #### [facility] [address] [place] [address] Dr. Emilie Stack MCH (RBC) [Entitic mass] 29.9 pg Normal 25.9-34.0 [facility] Comment on above: Performed By: #### C MP, BNP, YESI #### [facility] [address] [place] [address] Dr. Emilie Stack MCHC (RBC) [Mass/Vol] 33.0 g/dL Normal 29.9-35.2 [facility] Comment on above: Performed By: #### C MP, BNP, YESI #### [facility] [address] [place] [address] Dr. Emilie Stack MCV (RBC) [Entitic vol] 90.7 fL Normal 80.0-94.0 [facility] Comment on above: Performed By: #### C MP, BNP, YESI #### [facility] [address] [place] [address] Dr. Emilie Stack MONO # 0.6 103/ul Normal 0.3-0.8 [facility] Comment on above: Performed By: #### C MP, BNP, YESI #### [facility] [address] [place] [address] Dr. Emilie Stack Monocytes/100 WBC (Bld) 10.3 % Normal 1.7-12.0 [facility] Comment on above: Performed By: #### C MP, BNP, YESI #### [facility] [address] [place] [address] Dr. Emilie Stack NEUT # 3.5 103/ul Normal 1.4-6.5 [facility] Comment on above: Performed By: #### C MP, BNP, YESI #### [facility] [address] [place] [address] Dr. Emilie Stack Neutrophils/100 WBC (Bld) 59.2 % Normal 43.0-75.0 [facility] Comment on above: Performed By: #### C MP, BNP, YESI #### [facility] [address] [place] [address] Dr. Emilie Stack Platelet mean volume (Bld) [Entitic vol] 8.7 fL Critically low 9.5-13.5 [facility] Comment on above: Performed By: #### C MP, BNP, YESI #### [facility] [address] [place] [address] Dr. Emilie Stack PLT 320 103/ul Normal 150-450 [facility] Comment on above: Performed By: #### C MP, BNP, YESI #### [facility] [address] [place] [address] Dr. Emilie Stack RBC 5.05 106/ul Normal 4.70-6.10 [facility] Comment on above: Performed By: #### C MP, BNP, YESI #### [facility] [address] [place] [address] Dr. Emilie Stack WBC 5.9 103/ul Normal 4.0-11.0 [facility] Comment on above: Performed By: #### C MP, BNP, YESI #### [facility] [address] [place] [address] Dr. Emilie Stack CULTURE BLOODon 06-15-2022 Microscopic examination of blood, culture Culture Observations: NO GROWTH AT 5 DAYS. Normal [facility] Comment on above: Performed By: #### T JEANETTE BLAIR, BNP #### [facility] [address] [place] [address] Dr. Emilie Stack Microscopic examination of blood, culture Culture Observations: NO GROWTH AT 5 DAYS. Normal [facility] Comment on above: Performed By: #### T JEANETTE BLAIR, BNP #### [facility] [address] [place] [address] Dr. Emilie Stack CULTURE SPUTUMon 06-15-2022 CULTURE SPUTUM Culture Observations: Moraxella Catarrhalis is Beta Lactmase Positive Culture Observations: Normal respiratory tano also seen Isolate 1 Moraxella (Branhamella) catarrhalis Heavy growth of Normal [facility] Comment on above: Performed By: #### T JEANETTE BLAIR, BNP #### [facility] [address] [place] [address] Dr. Emilie Stack Cov[facility]-19 PCR [facility]on 05-27 SARS-CoV-2 (COVID-19) RNA [place]+probe Ql (Unsp spec) Not detected Normal NOT DETECTED [facility] Comment on above: Result Comment: When diagnostic testing is negative, the possibility of a false negative should be considered in the context of a patient's recent exposures and the presence of clinical signs and symptoms consistent with SARS-CoV-2. This test is not yet approved or cleared by the [place] FDA. When there are no FDA-approved or cleared tests available, and other criteria are met, FDA can make tests available under an emergency access mechanism called an Emergency Use Authorization (EUA). The EUA for this test is supported by the [place] of Health and Human Service's declaration that circumstances exist to justify the emergency use of in vitro diagnostics for the detection and/or diagnosis of the virus that causes COVID-19. This EUA will remain in effect for the duration of the COVID-19 declaration justifying emergency of IVDs, unless it is terminated or revoked by the FDA (after which the test may no longer be used). Performed By: #### T ROSSY, CMP, BNP #### [facility] [address] [address] [address] Emilie Stack PROF 14(COMP METB)on 022 Albumin [Mass/Vol] 3.7 g/dL Normal 3.4-5.0 [facility] Comment on above: Performed By: #### C MP, BNP, YESI #### [facility] [address] [address] [address] Emilie Stack Albumin/Globulin [Mass ratio] 1.0 {ratio} Normal [facility] Comment on above: Performed By: #### C MP, BNP, YESI #### [facility] [address] [address] [address] Emilie Stack ALP [Catalytic activity/Vol] 154 U/L Critically high 46-116 [facility] Comment on above: Performed By: #### C MP, BNP, YESI #### [facility] [address] [address] [address] Emilie Stack ALT [Catalytic activity/Vol] 24 U/L Normal 16-63 [facility] Comment on above: Performed By: #### C MP, BNP, YESI #### [facility] [address] [address] [address] Emilie Stack Anion gap [Moles/Vol] 13.0 mmol/L Normal [facility] Comment on above: Performed By: #### C MP, BNP, YESI #### [facility] [address] [address] [address] Emilie Stack AST [Catalytic activity/Vol] 17 U/L Normal 15-37 [facility] Comment on above: Performed By: #### C MP, BNP, YESI #### [facility] [address] [address] [address] Emilie Stack Bilirubin [Mass/Vol] 0.3 mg/dL Normal 0.2-1.0 [facility] Comment on above: Performed By: #### C MP, BNP, YESI #### [facility] [address] [place] [address] Dr. Emilie Stack Calcium [Mass/Vol] 8.6 mg/dL Normal 8.5-10.1 [facility] Comment on above: Performed By: #### C MP, BNP, YESI #### [facility] [address] [place] [address] Dr. Emilie Stack Chloride [Moles/Vol] 104 mmol/L Normal 98-107 [facility] Comment on above: Performed By: #### C MP, BNP, YESI #### [facility] [address] [place] [address] Dr. Emilie Stack CO2 [Moles/Vol] 24.9 mmol/L Normal 21.0-32.0 [facility] Comment on above: Performed By: #### C MP, BNP, YESI #### [facility] [address] [place] [address] Dr. Emilie Stack Creatinine [Mass/Vol] 1.10 mg/dL Normal 0.70-1.30 [facility] Comment on above: Performed By: #### C MP, BNP, YESI #### [facility] [address] [place] [address] Dr. Emilie Stack EGFR-AF JORDANIAN >60 Normal >=60 [facility] Comment on above: Performed By: #### C MP, BNP, YESI #### [facility] [address] [place] [address] Dr. Emilie Stack EGFR-NON AF JORDANIAN >60 Normal >=60 [facility] Comment on above: Performed By: #### C MP, BNP, YESI #### [facility] [address] [place] [address] Dr. Emilie Stack Globulin (S) [Mass/Vol] 3.6 g/dL Normal [facility] Comment on above: Performed By: #### C MP, BNP, YESI #### [facility] [address] [place] [address] Dr. Emilie Stack Glucose [Mass/Vol] 107 mg/dL Critically high 74-106 [facility] Comment on above: Performed By: #### C MP, BNP, YESI #### [facility] [address] [address] [address] Emilie Stack Potassium [Moles/Vol] 3.9 mmol/L Normal 3.5-5.1 [facility] Comment on above: Performed By: #### C MP, BNP, YESI #### [facility] [address] [address] [address] Emilie Stack Protein [Mass/Vol] 7.3 g/dL Normal 6.4-8.2 [facility] Comment on above: Performed By: #### C MP, BNP, YESI #### [facility] [address] [place] [address] Dr. Emilie Stack Sodium [Moles/Vol] 138 mmol/L Normal 136-145 [facility] Comment on above: Performed By: #### C MP, BNP, YESI #### [facility] [address] [place] [address] Dr. Emilie Stack Urea nitrogen [Mass/Vol] 18.0 mg/dL Normal 7.0-18.0 [facility] Comment on above: Performed By: #### C MP, BNP, YESI #### [facility] [address] [place] [address] Dr. Emilie Stack Urea nitrogen/Creatinine [Mass ratio] 16.4 mg/mg Normal [facility] Comment on above: Performed By: #### C MP, BNP, YESI #### [facility] [address] [place] [address] Dr. Emilie Stack SPUTUM GRAM STAINon 06-15-20 COMMENTS Normal [facility] Comment on above: Performed By: #### T ROSSY CMP, BNP #### [facility] [address] [place] [address] Dr. Emilie Stack DIPHTHEROIDS Normal [facility] Comment on above: Performed By: #### T ROSSY CMP, BNP #### [facility] [address] [place], [place] [id number] Dr. Emilie Stack EPITHELIALS <25 Normal [facility] Comment on above: Performed By: #### T ROSSY, CMP, BNP #### [facility] [address] [address] [address] Emilie Stack FUNGAL ELEMENTS Normal [facility] Comment on above: Performed By: #### T ROSSY, CMP, BNP #### [facility] [address] [address] [address] Emilie JARAMILLO NEG BACILLI Normal The [facility] Comment on above: Performed By: #### T ROSSY, CMP, BNP #### [facility] [address] [address] [address] Emilie JARAMILLO NEG DIPPLOCOCCI MANY Normal [facility] Comment on above: Performed By: #### T ROSSY, CMP, BNP #### [facility] [address] [address] [address] Emilie JARAMILLO POS BACILLI Normal [facility] Comment on above: Performed By: #### T ROSSY, CMP, BNP #### [facility] [address] [address] [address] Emilie Stack GRAM POSITIVE COCCI FEW Normal [facility] Comment on above: Performed By: #### T ROSSY, CMP, BNP #### [facility] [address] [address] [address] Emilie Stack WBC (Bld) [#/Vol] 10*3/uL Normal [facility] Comment on above: Performed By: #### T ROSSY, CMP, BNP #### [facility] [address] [address] [address] Emilie Stack T4on 06-15-2022 T4 [Mass/Vol] 8.10 ug/dL Normal 4.50-12.[address] [facility] Comment on above: Performed By: #### C MP, BNP, YESI #### [facility] [address] [address] [address] Emilie Stack TSHon 06-15-2022 TSH 1.611 uIU/mL Normal 0.358-3.[address] [facility] Comment on above: Performed By: #### C MP, BNP, YESI #### [facility] [address] [address] [address] Emilie Stack UA RANDOM W/MICROSCOPICon BACTERIA NONE SEEN Normal NONE SEEN [facility] Comment on above: Performed By: #### Patience BLAIR CMP, BNP #### [facility] [address] [address] [address] Emilie Stack Bilirubin Ql (U) Negative Normal NEGATIVE [facility] Comment on above: Performed By: #### Patience BLAIR CMP, BNP #### [facility] [address] [address] [address] Emilie Stack CAST NONE SEEN Normal NONE SEEN [facility] Comment on above: Performed By: #### Patience BLAIR CMP, BNP #### [facility] [address] [place] [address] Dr. Emilie Stack Clarity (U) CLEAR Normal CLEAR [facility] Comment on above: Performed By: #### Patience BLAIR CMP, BNP #### [facility] [address] [place] [address] Dr. Emilie Stack Color (U) LT. YELLOW Normal YELLOW [facility] Comment on above: Performed By: #### Patience BLAIR CMP, BNP #### [facility] [address] [place] [address] Dr. Emilie Stack Crystals LM Nom (Urine sed) NONE SEEN Normal NONE SEEN [facility] Comment on above: Performed By: #### Patience BLAIR CMP, BNP #### [facility] [address] [place] [address] Dr. Emilie Stack Epithelial cells LM Ql (Urine sed) RARE Normal NONE SEEN /RARE [facility] Comment on above: Performed By: #### Patience BLAIR CMP, BNP #### [facility] [address] [place] [address] Dr. Emilie Stack Glucose Ql (U) Negative Normal NEGATIVE [facility] Comment on above: Performed By: #### Patience BLAIR CMP, BNP #### [facility] [address] [address] [address] Emilie Stack Hemoglobin Ql (U) TRACE-INTACT Abnormal NEGATIVE [facility] Comment on above: Performed By: #### T ROSSY, CMP, BNP #### [facility] [address] [address] [address] Emilie Stack Ketones Ql (U) Negative Normal NEGATIVE [facility] Comment on above: Performed By: #### T ROSSY, CMP, BNP #### [facility] [address] [address] [address] Emilie Stack LEUKOCYTES Negative Normal NEGATIVE [facility] Comment on above: Performed By: #### T ROSSY, CMP, BNP #### [facility] [address] [place] [address] Dr. Emilie Stack MUCOUS SMALL Abnormal NONE SEEN [facility] Comment on above: Performed By: #### T ROSSY, CMP, BNP #### [facility] [address] [place] [address] Dr. Emilie Stack Nitrite Ql (U) Negative Normal NEGATIVE [facility] Comment on above: Performed By: #### T ROSSY, CMP, BNP #### [facility] [address] [place] [address] Dr. Emilie Stack pH (U) 5.5 [pH] Normal 5-9 [facility] Comment on above: Performed By: #### T ROSSY, CMP, BNP #### [facility] [address] [place] [address] Dr. Emilie Stack RBC NONE SEEN Abnormal 0-2 [facility] Comment on above: Performed By: #### T ROSSY, CMP, BNP #### [facility] [address] [place] [address] Dr. Emilie Stack SPEC GRAVITY 1.025 Normal 1.005-<=1.025 [facility] Comment on above: Performed By: #### T ROSSY, CMP, BNP #### [facility] [address] [place] [address] Dr. Emilie Stack UA PROTEIN Negative Normal NEGATIVE/ TRACE [facility] Comment on above: Performed By: #### T ROSSY, CMP, BNP #### [facility] [address], [place] [address] Dr. Emilie Stack Urobilinogen Qn (U) 0.2 {Jose Guadalupe'U}/dL Normal 0.2 - 1. 0 [facility] Comment on above: Performed By: #### T ROSSY, CMP, BNP #### [facility] [address], [place] [address] Dr. Emilie Stack WBC NONE SEEN Normal NONE SEEN [facility] Comment on above: Performed By: #### T ROSSY, CMP, BNP #### [facility] [address] [place], [place] [address] Dr. Emilie Stack XR CHEST 2 Von 06-15-2022 XR CHEST 2 V EXAMINATION: XR CHEST 2 V HISTORY: SHORTNESS OF BREATH COMPARISON: XR chest 09/29/2021 FINDINGS: LUNGS: Hyperexpanded lungs without appreciable infiltrates or mass. VASCULATURE: No increased pulmonary vasculature. PLEURA: No pneumothorax, effusion, or pleural thickening. CARDIAC: No cardiomegaly or cardiac silhouette abnormality. MEDIASTINUM: No visible mass or adenopathy. BONES: No fracture or visible bone lesion. OTHER: Negative. IMPRESSION: 1. Hyperexpanded lungs suggestive of COPD. 2. No acute cardiopulmonary process. Electronically authenticated by: CORRINE ROMEO Date: 2022-06-15 13:36 Normal [facility] US Abdomen RUQon 10-21-2021 IMPRESSION: No gallstones No free fluid Small right kidney. RADIOLOGY EXAM: US ABDOMEN RUQ/LIVER/GB HISTORY: Abdominal pain, right upper quadrant COMPARISON: None. TECHNIQUE: Transabdominal exam FINDINGS: Liver is unremarkable. No focal lesions Visualized pancreas is unremarkable. Pancreatic tail is obscured due to bowel gas The gallbladder is unremarkable. No gallstones Common bile duct is normal and measures 4 mm. ] The right kidney measures 6 cm and is small in size with lower limits normal 9 cm. No hydronephrosis. Visualized aorta and IVC and portal vein are normal No free fluid. RADIOLOGY Ford Francisco MD - 10/21/2021 EXAM: US ABDOMEN RUQ/LIVER/GB HISTORY: Abdominal pain, right upper quadrant COMPARISON: None. TECHNIQUE: Transabdominal exam FINDINGS: Liver is unremarkable. No focal lesions Visualized pancreas is unremarkable. Pancreatic tail is obscured due to bowel gas The gallbladder is unremarkable. No gallstones Common bile duct is normal and measures 4 mm. ] The right kidney measures 6 cm and is small in size with lower limits normal 9 cm. No hydronephrosis. Visualized aorta and IVC and portal vein are normal No free fluid. IMPRESSION IMPRESSION: No gallstones No free fluid Small right kidney. [facility] Radiology Study observation (narrative) [facility] US Abdomen RUQOrdered By: Matt Francisco on 10-21-2021 [facility] Work Phone: XR Chest PA and Lateralon IMPRESSION: Mild COPD. No acute infiltrate or consolidation seen. RADIOLOGY EXAM: XR CHEST PA AND LATERAL HISTORY: Pulmonary emphysema, unspecified emphysema type COMPARISON: CT PE chest study dated 07/31/2021 TECHNIQUE: PA and lateral views of the chest were obtained. FINDINGS: Heart and mediastinal contours are unremarkable in appearance. Mild COPD. No acute infiltrate or consolidations are seen. Mild degenerative changes in the dorsal spine with slight convexity to the right. RADIOLOGY Rafal Salter MD - 09/29/2021 EXAM: XR CHEST PA AND LATERAL HISTORY: Pulmonary emphysema, unspecified emphysema type COMPARISON: CT PE chest study dated 07/31/2021 TECHNIQUE: PA and lateral views of the chest were obtained. FINDINGS: Heart and mediastinal contours are unremarkable in appearance. Mild COPD. No acute infiltrate or consolidations are seen. Mild degenerative changes in the dorsal spine with slight convexity to the right. IMPRESSION IMPRESSION: Mild COPD. No acute infiltrate or consolidation seen. [facility] Radiology Study observation (narrative) [facility] XR Chest PA and LateralOrder ed By: Rafal Salter on 09-29-2021 [facility] [employer] Work Phone: C REACTIVE PROTEINon 022 CRP [Mass/Vol] 42.1 mg/L High 0 - 10.0 MG/L [facility] CBC, EDIF, PLATELETon 2021 ABSOLUTE BASOPHIL COUNT 0.0 10*3/uL 0.0 - 0.2 10*3/uL [facility] Basophils/100 WBC (Bld) 0.2 % 0.0 - 2.0 % [facility] Differential cell count method Nom (Bld) AUTO DIFF % [facility] Eosinophils (Bld) [#/Vol] 0.00 10*3/uL 0.0 - 0.7 10*3/uL [facility] Eosinophils/100 WBC (Bld) 0.1 % 0.0 - 11.0 % [facility] Erythrocyte distribution width (RBC) [Ratio] 13.5 % 11.5 - 14.5 % [facility] Hematocrit (Bld) [Volume fraction] 41.0 % Low 42.0 - 52.0 % [facility] Hemoglobin (Bld) [Mass/Vol] 14.3 g/dL [facility] Interpretation and review of laboratory results Abnormal [facility] Lymphocytes (Bld) [#/Vol] 0.40 10*3/uL Low 1.2 - 3.4 10*3/uL [facility] Lymphocytes/100 WBC (Bld) 16.0 % Low 20.0 - 55.0 % [facility] MCH (RBC) [Entitic mass] 32.1 pg 26.0 - 35.0 PG [facility] MCHC (RBC) [Mass/Vol] 34.8 g/dL [facility] MCV (RBC) [Entitic vol] 92.1 fL [facility] Monocytes (Bld) [#/Vol] 0.1 10*3/uL 0.0 - 0.7 10*3/uL [facility] Monocytes/100 WBC (Bld) 4.4 % 0.0 - 10.0 % [facility] Neutrophils (Bld) [#/Vol] 2.2 10*3/uL 1.4 - 6.5 10*3/uL [facility] Neutrophils/100 WBC (Bld) 79.3 % High 37.0 - 75.0 % [facility] Platelet mean volume (Bld) [Entitic vol] 8.8 fL [facility] Platelets (Bld) [#/Vol] 230 10*3/uL 130.0 - 400.0 10*3/uL [facility] RBC (Bld) [#/Vol] 4.45 10*6/uL 4.0 - 6.1 10*6/uL [facility] WBC (Bld) [#/Vol] 2.8 10*3/uL Low 3.6 - 11.0 10*3/uL [facility] HEPATIC FUNCTION PANELon Albumin [Mass/Vol] 3.0 g/dL Low [facility] ALP [Catalytic activity/Vol] 78 U/L [facility] ALT [Catalytic activity/Vol] 26 U/L [facility] AST [Catalytic activity/Vol] 25 U/L [facility] Bilirubin [Mass/Vol] 0.7 mg/dL [facility] Bilirubin.direct [Mass/Vol] 0.1 mg/dL [facility] Protein [Mass/Vol] 6.7 g/dL [facility] MAGNESIUMon 08-02-2021 Magnesium [Mass/Vol] 2.2 mg/dL [facility] No Panel Informationon 08-02 Interpretation and review of laboratory results Abnormal [facility] PROTIME-INRon 08-02-2021 INR Coag (PPP) [Relative time] 1.24 {INR} High [facility] Comment on above: 2.0-3.0 THERAPEUTIC RANGE 2.5-3.5 MECHANICAL VALVE RANGE Interpretation and review of laboratory results Abnormal [facility] PT Coag (PPP) [Time] 15.7 s High [facility] RENAL FUNCTION PANELon 08-02 Albumin [Mass/Vol] 3.0 G/dl Low 3.5 - 5.0 G/dl [facility] Calcium [Mass/Vol] 8.5 mg/dL [facility] Chloride [Moles/Vol] 104 mmol/L [facility] CO2 [Moles/Vol] 20 mmol/L Low [facility] Creatinine [Mass/Vol] 0.76 mg/dL [facility] GFR COMMENT Average GFR for 70+ years old = 75. [facility] Comment on above: Chronic Kidney disea se, GFR = <60. Kidney failure, GFR = <15. The GFR estimate is not adjusted for extreme body surface area or acute process, nor has it been validated for women or ethnic groups other than and . GFR/1.73 sq M.predicted among blacks MDRD (S/P/Bld) [Vol rate/Area] 130 mL/min/{1.73_m2} ml/min/1.73sq. m [facility] GFR/1.73 sq M.predicted among non-blacks MDRD (S/P/Bld) [Vol rate/Area] 108 mL/min/{1.73_m2} ml/min/1.73sq. m [facility] Glucose post fast [Mass/Vol] 138 mg/dL High [facility] Comment on above: NORMAL <100 mg/dL PREDIABETES 101-126 mg/dL DIABETES 126 mg/dL or higher Interpretation and review of laboratory results Abnormal [facility] Phosphate [Mass/Vol] 2.6 mg/dL [facility] Potassium [Moles/Vol] 3.9 mmol/L [facility] Sodium [Moles/Vol] 136 mmol/L [facility] Urea nitrogen [Mass/Vol] 12 mg/dL [facility] SEDIMENTATION RATE, AUTOMATE Don 08-02-2021 ESR (Bld) [Velocity] 31 mm/h High [facility] Interpretation and review of laboratory results Abnormal [facility] C REACTIVE PROTEINon 022 CRP [Mass/Vol] 55.8 mg/L High 0 - 10.0 MG/L [facility] CBC, EDIF, PLATELETon 2021 Differential cell count method Nom (Bld) MANUAL DIFF % [facility] Erythrocyte distribution width (RBC) [Ratio] 13.4 % 11.5 - 14.5 % [facility] Hematocrit (Bld) [Volume fraction] 37.8 % Low 42.0 - 52.0 % [facility] Hemoglobin (Bld) [Mass/Vol] 13.2 g/dL Low [facility] Immature granulocytes/100 WBC (Bld) 1 % 0.0 - 2.0 % [facility] Interpretation and review of laboratory results Abnormal [facility] Lymphocytes/100 WBC (Bld) 25 % 20.0 - 55.0 % [facility] MCH (RBC) [Entitic mass] 31.9 pg 26.0 - 35.0 PG [facility] MCHC (RBC) [Mass/Vol] 34.9 g/dL [facility] MCV (RBC) [Entitic vol] 91.6 fL [facility] Monocytes/100 WBC (Bld) 28 % High 0.0 - 10.0 % [facility] Morphology Elvin (Bld) [Interp] NORMAL [facility] Neutrophils/100 WBC (Bld) 46 % 37.0 - 75.0 % [facility] Platelet mean volume (Bld) [Entitic vol] 8.5 fL [facility] Platelet morphology finding Nom (Bld) ADEQUATE [facility] Platelets (Bld) [#/Vol] 189 10*3/uL 130.0 - 400.0 10*3/uL [facility] RBC (Bld) [#/Vol] 4.12 10*6/uL 4.0 - 6.1 10*6/uL [facility] WBC (Bld) [#/Vol] 3.2 10*3/uL Low 3.6 - 11.0 10*3/uL [facility] WBC MORPHOLOGY STATUS VACUOLES [facility] HEPATIC FUNCTION PANELon Albumin [Mass/Vol] 2.7 g/dL Low [facility] ALP [Catalytic activity/Vol] 73 U/L [facility] ALT [Catalytic activity/Vol] 22 U/L [facility] AST [Catalytic activity/Vol] 24 U/L [facility] Bilirubin [Mass/Vol] 0.5 mg/dL [facility] Bilirubin.direct [Mass/Vol] 0.1 mg/dL [facility] Protein [Mass/Vol] 5.9 g/dL Low [facility] LEGIONELLA URINARY AGon L. pneumophila 1 Ag IA Ql (U) Negative NEGATIVE [facility] MAGNESIUMon 08-01-2021 Magnesium [Mass/Vol] 1.8 mg/dL [facility] No Panel Informationon 08-01 [facility] Interpretation and review of laboratory results Abnormal [facility] PROTIME-INRon 08-01-2021 INR Coag (PPP) [Relative time] 1.40 {INR} High [facility] Comment on above: 2.0-3.0 THERAPEUTIC RANGE 2.5-3.5 MECHANICAL VALVE RANGE Interpretation and review of laboratory results Abnormal [facility] PT Coag (PPP) [Time] 17.3 s [facility] RENAL FUNCTION PANELon 08-01 Albumin [Mass/Vol] 2.7 G/dl Low 3.5 - 5.0 G/dl [facility] Calcium [Mass/Vol] 8.0 mg/dL Low [facility] Chloride [Moles/Vol] 105 mmol/L [facility] CO2 [Moles/Vol] 22 mmol/L [facility] Creatinine [Mass/Vol] 0.96 mg/dL [facility] GFR COMMENT Average GFR for 70+ years old = 75. [facility] Comment on above: Chronic Kidney disea se, GFR = <60. Kidney failure, GFR = <15. The GFR estimate is not adjusted for extreme body surface area or acute process, nor has it been validated for women or ethnic groups other than and . GFR/1.73 sq M.predicted among blacks MDRD (S/P/Bld) [Vol rate/Area] 100 mL/min/{1.73_m2} ml/min/1.73sq. m [facility] GFR/1.73 sq M.predicted among non-blacks MDRD (S/P/Bld) [Vol rate/Area] 82 mL/min/{1.73_m2} ml/min/1.73sq. m [facility] Glucose post fast [Mass/Vol] 104 mg/dL High [facility] Comment on above: NORMAL <100 mg/dL PREDIABETES 101-126 mg/dL DIABETES 126 mg/dL or higher Interpretation and review of laboratory results Abnormal [facility] Phosphate [Mass/Vol] 2.0 mg/dL Low [facility] Potassium [Moles/Vol] 3.5 mmol/L [facility] Sodium [Moles/Vol] 136 mmol/L [facility] Urea nitrogen [Mass/Vol] 12 mg/dL [facility] SEDIMENTATION RATE, AUTOMATE Don 08-01-2021 ESR (Bld) [Velocity] 21 mm/h [facility] Interpretation and review of laboratory results Abnormal [facility] STREP PNEUMONIAE ANTIGEN, UR INEon 08-01-2021 S. pneumoniae Ag Ql (U) Negative NEGATIVE [facility] US DUPLEX EXTREMITY DVT DAE Hunt 08-01-2021 IMPRESSION: Negative bilateral exam. No sonographic evidence of deep venous thrombosis in the lower extremity veins on either side. RADIOLOGY ULTRASOUND VENOUS DUPLEX SCAN BILATERAL LOWER EXTREMITY CLINICAL: Elevated d dimer COMPARISON: Earlier same day CT chest. TECHNIQUE: High-resolution grayscale and color Doppler evaluation of the bilateral lower extremities was performed using compression and augmentation technique throughout the lower extremity veins. Images of 07/31/2021 submitted for interpretation 08/01/2021. FINDINGS: Sonographic examination of bilateral lower extremity deep venous systems, including the common femoral, superficial femoral, deep femoral, popliteal and calf veins, demonstrates normal compressibility, color-flow, respiratory variation, and response to augmentation. The origin and proximal segment of the greater saphenous veins also demonstrate normal compression and color-flow. Doppler flow in the visualized calf veins is preserved, without evidence of intravascular thrombus.. RADIOLOGY Martin Rice MD - 08/01/2021 ULTRASOUND VENOUS DUPLEX SCAN BILATERAL LOWER EXTREMITY CLINICAL: Elevated d dimer COMPARISON: Earlier same day CT chest. TECHNIQUE: High-resolution grayscale and color Doppler evaluation of the bilateral lower extremities was performed using compression and augmentation technique throughout the lower extremity veins. Images of 07/31/2021 submitted for interpretation 08/01/2021. FINDINGS: Sonographic examination of bilateral lower extremity deep venous systems, including the common femoral, superficial femoral, deep femoral, popliteal and calf veins, demonstrates normal compressibility, color-flow, respiratory variation, and response to augmentation. The origin and proximal segment of the greater saphenous veins also demonstrate normal compression and color-flow. Doppler flow in the visualized calf veins is preserved, without evidence of intravascular thrombus.. IMPRESSION IMPRESSION: Negative bilateral exam. No sonographic evidence of deep venous thrombosis in the lower extremity veins on either side. [employer] [facility] [employer] C REACTIVE PROTEINon 022 CRP [Mass/Vol] 60.2 mg/L High 0 - 10.0 MG/L [employer] [facility] CBC, EDIF, PLATELETon 2021 ABSOLUTE BASOPHIL COUNT 0.0 10*3/uL 0.0 - 0.2 10*3/uL [employer] Basophils/100 WBC (Bld) 0.3 % 0.0 - 2.0 % [facility] Differential cell count method Nom (Bld) AUTO DIFF % [facility] Eosinophils (Bld) [#/Vol] 0.00 10*3/uL 0.0 - 0.7 10*3/uL [facility] Eosinophils/100 WBC (Bld) 0.2 % 0.0 - 11.0 % [facility] Erythrocyte distribution width (RBC) [Ratio] 13.2 % 11.5 - 14.5 % [facility] Hematocrit (Bld) [Volume fraction] 43.0 % 42.0 - 52.0 % [facility] Hemoglobin (Bld) [Mass/Vol] 14.9 g/dL [facility] Interpretation and review of laboratory results Abnormal [facility] Lymphocytes (Bld) [#/Vol] 0.50 10*3/uL Low 1.2 - 3.4 10*3/uL [facility] Lymphocytes/100 WBC (Bld) 11.2 % Low 20.0 - 55.0 % [facility] MCH (RBC) [Entitic mass] 31.5 pg 26.0 - 35.0 PG [facility] MCHC (RBC) [Mass/Vol] 34.7 g/dL [facility] MCV (RBC) [Entitic vol] 90.9 fL [facility] Monocytes (Bld) [#/Vol] 0.5 10*3/uL 0.0 - 0.7 10*3/uL [facility] Monocytes/100 WBC (Bld) 11.3 % High 0.0 - 10.0 % [facility] Neutrophils (Bld) [#/Vol] 3.7 10*3/uL 1.4 - 6.5 10*3/uL [facility] Neutrophils/100 WBC (Bld) 77.0 % High 37.0 - 75.0 % [facility] Platelet mean volume (Bld) [Entitic vol] 8.1 fL [facility] Platelets (Bld) [#/Vol] 188 10*3/uL 130.0 - 400.0 10*3/uL [facility] RBC (Bld) [#/Vol] 4.73 10*6/uL 4.0 - 6.1 10*6/uL [facility] WBC (Bld) [#/Vol] 4.8 10*3/uL 3.6 - 11.0 10*3/uL [facility] COMPREHENSIVE METABOLIC PANE Karri 07-31-2021 Albumin [Mass/Vol] 3.4 G/dl Low 3.5 - 5.0 G/dl [facility] Albumin/Globulin [Mass ratio] 0.9 {ratio} Low [facility] ALP [Catalytic activity/Vol] 96 U/L [facility] ALT [Catalytic activity/Vol] 28 U/L [facility] AST [Catalytic activity/Vol] 30 U/L [facility] Bilirubin [Mass/Vol] 0.6 mg/dL [facility] Calcium [Mass/Vol] 8.6 mg/dL [facility] Chloride [Moles/Vol] 99 mmol/L [facility] CO2 [Moles/Vol] 22 mmol/L [facility] Creatinine [Mass/Vol] 1.00 mg/dL [facility] GFR COMMENT Average GFR for 70+ years old = 75. [facility] Comment on above: Chronic Kidney disea se, GFR = <60. Kidney failure, GFR = <15. The GFR estimate is not adjusted for extreme body surface area or acute process, nor has it been validated for women or ethnic groups other than and . GFR/1.73 sq M.predicted among blacks MDRD (S/P/Bld) [Vol rate/Area] 95 mL/min/{1.73_m2} ml/min/1.73sq. m [facility] GFR/1.73 sq M.predicted among non-blacks MDRD (S/P/Bld) [Vol rate/Area] 79 mL/min/{1.73_m2} ml/min/1.73sq. m [facility] Glucose post fast [Mass/Vol] 103 mg/dL High [facility] Comment on above: NORMAL <100 mg/dL PREDIABETES 101-126 mg/dL DIABETES 126 mg/dL or higher Potassium [Moles/Vol] 3.4 mmol/L Low [facility] Protein [Mass/Vol] 7.4 g/dL [facility] Sodium [Moles/Vol] 135 mmol/L Low [facility] Urea nitrogen [Mass/Vol] 12 mg/dL [facility] CT PE STUDYon 07-31-2021 IMPRESSION: 1. No evidence of pulmonary embolism. 2. Patchy peripheral groundglass and interstitial infiltrative densities in the lung periphery bilaterally consistent with multifocal pulmonary infection. Appearance would be compatible with Covid associated pneumonia in the appropriate clinical setting. 3. Partial inclusion of simple fluid density lesions in the liver and left kidney, probably cysts. RADIOLOGY CT CHEST WITH CONTRAST (CT Pulmonary Angiogram) CLINICAL: Shortness of breath and hypoxia. Cough for 5 days. COMPARISON: No prior studies are available. TECHNIQUE: Thin section axial images were obtained from thoracic inlet to the diaphragms following the administration of intravenous contrast. CT angiographic reconstructions of the pulmonary arteries including multiple intensity projections in coronal and sagittal planes were performed. Dose reduction: mA and/or kV are were adjusted by automated exposure control software based upon patients height and weight. FINDINGS: Thoracic inlet and axillary structures are grossly intact. 10 mm right hilar node is present. Additional precarinal 8 mm node and nonenlarged left hilar nodes noted. No pericardial effusion or mediastinal fluid collection. Coronary artery calcifications are present. No pericardial effusion. Pulmonary arterial tree is opacified and shows no filling defect to indicate pulmonary embolism. Limited upper abdominal images show a small to moderate hiatus hernia, and a partially included 1 cm hypoattenuating lesion in the posterior inferior right hepatic lobe showing density consistent with a simple cyst. The left kidney also shows a low density simple cyst, partially included at 1.6 cm diameter. Lung windows show subtle peripheral groundglass infiltrates in the periphery of the lateral right upper lobe on series 4 images 58 and 60 as well as within the right middle lobe on image 74 and adjacent. Left upper lobe shows peripheral groundglass infiltrate on image 78 and 97 as well as within the lingular segment on image 111. No dense consolidation is seen. Patchy interstitial and groundglass opacities also present at the posterior costophrenic sulci. Localized pleural-based density medial right lung base on image 66 may in part represent scarring adjacent to a prominent costovertebral osteophyte. Osseous structures show no acute traumatic or destructive lesion. RADIOLOGY Martin Rice MD - 07/31/2021 CT CHEST WITH CONTRAST (CT Pulmonary Angiogram) CLINICAL: Shortness of breath and hypoxia. Cough for 5 days. COMPARISON: No prior studies are available. TECHNIQUE: Thin section axial images were obtained from thoracic inlet to the diaphragms following the administration of intravenous contrast. CT angiographic reconstructions of the pulmonary arteries including multiple intensity projections in coronal and sagittal planes were performed. Dose reduction: mA and/or kV are were adjusted by automated exposure control software based upon patients height and weight. FINDINGS: Thoracic inlet and axillary structures are grossly intact. 10 mm right hilar node is present. Additional precarinal 8 mm node and nonenlarged left hilar nodes noted. No pericardial effusion or mediastinal fluid collection. Coronary artery calcifications are present. No pericardial effusion. Pulmonary arterial tree is opacified and shows no filling defect to indicate pulmonary embolism. Limited upper abdominal images show a small to moderate hiatus hernia, and a partially included 1 cm hypoattenuating lesion in the posterior inferior right hepatic lobe showing density consistent with a simple cyst. The left kidney also shows a low density simple cyst, partially included at 1.6 cm diameter. Lung windows show subtle peripheral groundglass infiltrates in the periphery of the lateral right upper lobe on series 4 images 58 and 60 as well as within the right middle lobe on image 74 and adjacent. Left upper lobe shows peripheral groundglass infiltrate on image 78 and 97 as well as within the lingular segment on image 111. No dense consolidation is seen. Patchy interstitial and groundglass opacities also present at the posterior costophrenic sulci. Localized pleural-based density medial right lung base on image 66 may in part represent scarring adjacent to a prominent costovertebral osteophyte. Osseous structures show no acute traumatic or destructive lesion. IMPRESSION IMPRESSION: 1. No evidence of pulmonary embolism. 2. Patchy peripheral groundglass and interstitial infiltrative densities in the lung periphery bilaterally consistent with multifocal pulmonary infection. Appearance would be compatible with Covid associated pneumonia in the appropriate clinical setting. 3. Partial inclusion of simple fluid density lesions in the liver and left kidney, probably cysts. [facility] Radiology Study observation (narrative) [facility] CT PE STUDYOrdered By: Martin Riec on 07-31-2021 [facility] Work Phone: D-DIMER,QUANTITATIVEon 07-31 Fibrin D-dimer FEU (PPP) [Mass/Vol] 1.95 Critically high <0.50 mg/L FEU [facility] Comment on above: If result is greater than the cutoff value of 0.50 mg/L then the potential for PE or DVT exists. Other conditions exist which may cause a falsely elevated level. Please correlate clinically, including radiological findings and other clinical parameters. Result called to read back by: Kareen COSBY 07/31/2021 @ 12:20 by PMS Interpretation and review of laboratory results Abnormal [facility] ECG (SCANNED)Ordered By: Mirlande Doherty on 07-31-2021 [facility] INFLUENZA A AND B, PCRon FLUAV and FLUBV Ag IF Nom (Unsp spec) Negative NEGATIVE [facility] FLUBV Ag IA Ql (Unsp spec) Negative NEGATIVE [facility] Comment on above: TESTING PERFORMED BY [place] [facility] NOVEL CORONAVIRUS LAB 1 - NA SOPHARYNGEALon 07-31-2021 NARRATIVE -1 This test was performed using isothermal [place] and has been approved as Emergency Use Authorization (EUA) for the qualitative detection [id number] nucleic acid. [facility] SARS-CoV-2 (COVID-19) RNA [place]+probe Ql (Unsp spec) Not detected NOT DETECTED [facility] Comment on above: Negative results do not preclude SARS-CoV-2 infection and should not be used as the sole basis for treatment or other patient management decisions. Optimum specimen types and timing for peak viral levels during infections caused by SARS-CoV-2 has not been determined. The possibility of a false negative result should especially be considered if the patient's recent exposures or clinical presentation suggest that SARS-CoV-2 infection is probable, and diagnostic tests for other causes of illness (e.g., other respiratory illness) are negative. Collection of a new specimen and re-testing may be necessary if the patient is critically ill or clinically deteriorating. [facility] No Panel Informationon 07-31 Interpretation and review of laboratory results Abnormal [facility] PROTIME-INRon 07-31-2021 INR Coag (PPP) [Relative time] 1.17 {INR} High [facility] Comment on above: 2.0-3.0 THERAPEUTIC RANGE 2.5-3.5 MECHANICAL VALVE RANGE Interpretation and review of laboratory results Abnormal [facility] PT Coag (PPP) [Time] 15.1 s [facility] SCREEN: MRSA ONLY, NARES (IS OLATION SCREEN)on 07-31-2021 MRSA isol Org specific cx Ql (Nose) Not detected NOT DETECTED [facility] STAPHYOCOCCUS AUREUS BY PCR Not detected NOT DETECTED [facility] SEDIMENTATION RATE, AUTOMATE Don 07-31-2021 ESR (Bld) [Velocity] 44 mm/h High [facility] Interpretation and review of laboratory results Abnormal [facility] TROPONIN I, HIGH SENSITIVITY on 07-31-2021 TROPONIN I, HIGH SENSITIVITY 16 pg/mL 0 - 20 pg/mL [facility] Comment on above: Indeterminant: >12 to 100 pg/mL female >20 to 100 pg/mL male Indicative of myocardial injury. Serial sampling is recommended, a change of greater than or equal to 20 pg/mL is indicative of acute coronary syndrome. [facility] TROPONIN I, HIGH SENSITIVITY 8 pg/mL 0 - 20 pg/mL [facility] Comment on above: Indeterminant: >12 to 100 pg/mL female >20 to 100 pg/mL male Indicative of myocardial injury. Serial sampling is recommended, a change of greater than or equal to 20 pg/mL is indicative of acute coronary syndrome. [facility] US DUPLEX EXTREMITY DVT BILA TERALon 07-31-2021 Radiology Study observation (narrative) [facility] VITAMIN D (25-HYDROXY,TOTAL) on 07-31-2021 25-hydroxyvitamin D [Mass/Vol] 15.3 Low >30 NG/ML [facility] Comment on above: DEFICIENT <20 NG/ML INSUFFICIENT 20-<30 NG/ML SUFFICIENT 30-100 NG/ML POTENTIAL TOXICITY >100 NG/ML Interpretation and review of laboratory results Abnormal [facility] Vital Signs Date Time Vital Sign Value Performing Clinician Maoi anni 08-02-2021 11:59-0500 Body temperature 97.59 [degF] Kraig Trevino MD Work Phone: [facility] 08-02-2021 11:59-0500 Diastolic blood pressure 67 mm[Hg] Kraig Trevino MD Work Phone: [facility] 08-02-2021 11:59-0500 Heart rate 92 /min Kraig Trevino MD Work Phone: [facility] 08-02-2021 11:59-0500 Respiratory rate 18 /min Kraig Trevino MD Work Phone: [facility] 08-02-2021 11:59-0500 SaO2% (BldA) [Mass fraction] 92 % Kraig Trevino MD Work Phone: [facility] 08-02-2021 11:59-0500 Systolic blood pressure 128 mm[Hg] Kraig Trevino MD Work Phone: [facility] 08-02-2021 04:12-0500 Body mass index (BMI) [Ratio] 27.37 kg/m2 Kraig Trevino MD Work Phone: [facility] 08-02-2021 04:12-0500 Body weight 91.54 kg Kraig Trevino MD Work Phone: [facility] 08-01-2021 10:03-0500 Body height 182.9 cm Kraig Trevino MD Work Phone: [facility] Encounters Encounter Date Encounter Type Care Provider Facility Start: 05-11-2023 ambulatory DEZ Fitzpatrick [facility] Start: 05-11-2023 End: 05-11-2023 Subsequent hospital visit by physician Dez Bhagat MD Work Phone: [facility] CT Scan Comment on above: Arrived Start: 04-28-2023 ambulatory DEZ Fitzpatrick [facility] Start: 04-10-2023 ambulatory DEZ Fitzpatrick [facility] Start: 04-10-2023 End: 04-10-2023 Subsequent hospital visit by physician Dez Bhagat MD Work Phone: [facility] Ultrasound Comment on above: Arrived Start: 03-23-2023 ambulatory DEZ Fitzpatrick [facility] Start: 11-23-2022 End: 11-23-2022 ambulatory SAMANTHA BUTLER Facility:[facility] Start: 08-19-2022 End: 08-19-2022 [facility]: 08-11-[facility]22 End: 08-15-2022 Evaluation and management of inpatient DR DEZ BHAGAT . Facility:[facility] Start: 06-15-2022 End: 06-18-[address] DEZ BHAGAT . Facility:[facility] Start: 10-21-2021 End: 10-21-2021 Subsequent hospital visit by physician Dez Bhagat MD Work Phone: [facility] Ultrasound Comment on above: Arrived Start: 09-29-2021 End: 09-29-2021 Subsequent hospital visit by physician Dez Bhagat MD Work Phone: [facility] Diagnostic Radiology Comment on above: Arrived Start: 07-31-2021 End: 08-02-2021 Emergency department patient visit Kraig Trevino MD Work Phone: [facility] Med Surg Comment on above: Multifocal pneumonia Start: 09-14-2017 End: 09-15-2017 Ambulatory DEFAULT PHYSICIAN Facility:[email or web address] Procedures Date Procedure Procedure Detail Performing Clinician Start: 05-11-2023 Ct soft tissue neck w/contrast material Dez Bhagat MD Work Phone: Start: 04-10-2023 Us soft tissue head & neck real time imge docm Dez Bhagat MD Work Phone: Start: 10-21-2021 Us abdominal real ti me w/image limited Dez Bhagat MD Work Phone: Start: 09-29-2021 Radiologic exam chest 2 views Dez Bhagat MD Work Phone: Start: 08-02-2021 C-reactive protein [facility] dejon Hoover PA-C Work Phone: Start: 08-02-2021 Complete blood count with white cell differential, automated Huan Hoover PA-C Work Phone: Start: 08-02-2021 Renal function panel De kai Kiko PA-C Work Phone: Start: 08-01-2021 Iaad ia mult step me thod nos each organism Huan Kiko PA-C Work Phone: Start: 08-01-2021 C-reactive protein Denv er Kiko PA-C Work Phone: Start: 08-01-2021 Renal function panel De kai Hoover PA-C Work Phone: Start: 07-31-2021 Assay of troponin quantitative Osmin Luna MD Work Phone: Start: 07-31-2021 Dup-scan xtr veins c omplete bilateral study Huan Hoover PA-C Work Phone: Start: 07-31-2021 Cultyp nuc acid amp prb cult/isolate ea orgnism Osmin Luna MD Work Phone: Start: 07-31-2021 25 hydroxy includes fractions if performed Huan Hoover PA-C Work Phone: Start: 07-31-2021 End: 07-31-2021 Culture bacterial blood aerobic w/id isolates John Edwards PA-C Work Phone: Start: 07-31-2021 Electrocardiogram Histo rical Provider Start: 07-31-2021 Ct angiography chest w/contrast/noncontrast John Edwards PA-C Work Phone: Start: 07-31-2021 C-reactive protein Sandrine Edwards PA-C Work Phone: Start: 07-31-2021 Comprehensive metabolic panel John Edwards PA-C Work Phone: Start: 07-31-2021 Infectious agent dna /rna influenza 1st 2 types John Edwards PA-C Work Phone: Start: 07-31-2021 Sars-cov-2 detection by dna/rna John Edwards PA-C Work Phone: Plan of Treatment Date Care Activity Detail Author Start: 02-24-2023 Influenza vaccination INFLUENZA VACC INE (#1) [facility] Start: 02-24-2022 Influenza vaccination INFLUENZ A VACCINE (Season Ended) [facility] Start: 02-24-2021 Influenza vaccination INFLUENZA VACC INE (#1) [facility] Start: 2015 Abdominal aortic ane urysm screening ABDOMINAL AORTIC ANEURYSM HIGH RISK SCREEN [facility] Start: 2015 Pneumococcal vaccination PNEUM OCOCCAL VACCINE SERIES (1 of 1 - PPSV23) [facility] Start: 2000 Prostate specific an tigen measurement PROSTATE CANCER SCREENING DISCUSSION [facility] Start: 2000 Zoster vaccine hzv l ely for subcutaneous use ZOSTER (SHINGLES) VACCINE (1 of 2) [facility] Start: 1995 Colonoscopy COLORECTAL CAN CER SCREENING DISCUSSION [facility] Start: 1995 Screening for malign ant neoplasm of colon COLORECTAL CANCER SCREENING DISCUSSION [facility] Start: 1990 Fasting lipid profile LIPID SCREENIN G [facility] Start: 1990 Lipid panel [address]IPID SCREENING [facility] Start: 1969 Third diphtheria, te tanus and acellular pertussis (DTaP) vaccination TDAP (ADULT) [facility] Start: 1968 Tetanus vaccination TETANUS [facility] Start: 1956 Pneumococcal vaccination [facility] Start: 1955 COVID-19 VACCINE (#1) COVID-19 VACCI NE (#1) [facility] Start: 1955 COVID-19 VACCINE (1) COVID-19 VACCIN E (1) [facility] Start: 02-14-1951 COVID-19 VACCINE (#1) COVID-19 VACCI NE (#1) [facility] Start: 1950 Hepatitis C antibody , confirmatory test HEPATITIS C VIRUS SCREENING [facility] Start: 1950 Hepatitis C screening HEPATITI S C VIRUS SCREENING [facility] Start: 1950 Tetanus vaccination TETANUS [facility] Bacteria identified in Blood by Culture [facility] End: 07-31-2021 Standard ECG ECG ECG STAT One Time for 1 Occurrences starting 07/31/2021 until 07/31/2021 [facility] Comment on above: One Time for 1 Occur rences starting 07/31/2021 until 07/31/2021 Payers Date Payer Category Payer Medicare [employer]ICARE [employer] HMO PPO [id number] 2021-Present [address] [place] [address] [id number] 2019 Medicare MEDICARE ANTHEM HMO OR PPO MEDICARE AN[employer]M HMO OR PPO [id number] 2019-Present [address] [place] [address] [id number] 1959 Medicare [id number] 1950 Unknown [id number] 1950 Unknown [id number] 1950 Unknown [id number] 1950 Unknown [id number] 1950 Unknown [id number] 1950 Unknown [id number] 1950 Unknown [id number] 1950 Unknown [id number] 1950 Unknown [id number] Unknown Social History Date Type Detail Facility Start: 07-31-2021 End: 08-19-2022 Tobacco smoking status NHIS Smokes tobacco daily [facility] Start: 07-31-2021 End: 08-19-2022 Tobacco use and exposure Smokeless tobacco non-user [facility] Start: 07-31-2021 End: 08-19-2022 Alcohol intake Lifetime non-drinker (finding) [facility] Start: 07-31-2021 History SDOH Alcohol Frequency 1 [facility] Start: 1950 Sex Assigned At Not on file A nikolas [employer] Exposure to SARS-CoV -2 (event) Yes [facility] History of tobacco use Cigarette Smoker [facility] Start: 08-19-2022 Cigarettes smoked current (pack per day) - Reported 1 [facility] Start: 08-19-2022 Tobacco use panel [facility] Clinical Notes 07-31-2021 to 08-02-2021 Nursing Notes - Patricia Schilling RN - 08/02/2021 4:06 PM ESTNursing Notes - Patricia Schilling RN - 08/02/2021 11:32 AM ESTNursing Notes - Martin Rodriguez RN - 08/01/2021 4:07 PM ESTDischarge Instr - Diet Note Date & Type Note Facility 08-02-2021 Miscellaneous Notes Discharge education acknowledged by patient. All questions answered. Patient cleaning up before leaving. Patient working with PT at this time. Patient denies needs at this time. Patient states, I'm just waiting to be discharged. Assessment remains unchanged. Previous assessment unchanged. Patient resting in bed, son at bedside. No needs at this time. 80 mg solumedrol ordered for patient; chart states patient has allergy to prednisone. Clarified with patient, he states that he develops a rash and is uncomfortable after receiving. Clarified with pharmacy as well as PA, PA states to give steroid as ordered. Previous assessment unchanged. Pt resting in bed, denies needs at this time. documented in this encounter [facility] 08-02-2021 Hospital Discharg e instructions Huan Hoover PA-C - 08/02/2021 2:41 PM EST AAT Huan Hoover PA-C - 08/02/2021 2:41 PM EST AAT The following attachments cannot be sent through Care Everywhere.Coronavirus Disease (COVID-19): Caring for Yourself: Quick List (Prydeinig)documented in this encounter [facility] 08-02-2021 Hospital course Narrative Images from the original note were not included. Discharge Summary Summary Time: 08/02/21 2:41 PM Name: Srini Menon Age: 70 y.o. Birthday: 1950 Admit Date: 07/31/2021 11:23 AM Discharge Date: 08/02/2021 Brief Summary of Hospital Course: Patient is a 70 y.o. male presents to [facility] for evaluation of shortness of breath. Patient reports cough for 4 days with worsening shortness of breath. Denies active chest pains. Reports infrequent fevers. Not vaccinated for COVID. Reports positive exposure. COPD history and still smoking daily. On arrival patient tachypnic. Not hypoxic. CT PE shows multifocal PNA concerning for PNA however testing negative for COVID. CRP slightly elevated. Blood cultures obtained. Started on levaquin and steroids and admitted for further evaluation of pneumonia and COPD. Troponin negative. During admission patient was continued on solumedrol and duonebs as well as levaquin. Wheezing improved. Remained on room air and did not require oxygen. He is stable for discharge home today. He is being discharged on pred taper as well as levaquin. He is to follow up as an outpatient with pulmonology. Consultants: N/A Discharge Diagnosis: Principal Problem: Multifocal pneumonia Active Problems: Chronic obstructive pulmonary disease with acute exacerbation Tobacco abuse Hypoalbuminemia Vitamin D deficiency Discharge Vital Signs: Blood pressure 128/67, pulse 92, temperature 97.6 F (36.4 C), temperature source Oral, resp. rate 18, height 1.829 m (6'), weight 91.5 kg (201 lb 12.8 oz), SpO2 92 %. O2 Sat (%): 92 % (08/02 1159) O2 Device: room air (08/02 115) Discharge Labs: Lab Results Component Value Date WBC 2.8 (L) 08/02/2021 HGB 14.3 08/02/2021 HCT 41.0 (L) 08/02/2021 PLATELET 230 08/02/2021 MCV 92.1 08/02/2021 @LASTMAGNESIUM(1D,2)@ Lab Results Component Value Date INR 1.24 (H) 08/02/2021 INR 1.40 (H) 08/01/2021 INR 1.17 (H) 07/31/2021 PT 15.7 (H) 08/02/2021 PT 17.3 (H) 08/01/2021 PT 15.1 (H) 07/31/2021 Lab Results Component Value Date CREATSERUM 0.76 08/02/2021 BUN 12 08/02/2021 SODIUM 136 08/02/2021 POTASSIUM 3.9 08/02/2021 CHLORIDE 104 08/02/2021 CO2 20 (L) 08/02/2021 No results found for: SPGRVTYUR, SPECGRAVUR, SPECGRAVUR, GLUCOSEURINE, BILIRUBINURI, BILIRUBINURI, KETONESURINE, BLOODURINE, PHURINE, NITRITEURINE, NITRITESURIN, LEUKOCESTUR, WBCURINE, RBCURINE, BACTERIAURIN PHYSICAL EXAM: General: Patient resting comfortably. Awake. No acute distress. Cardiovascular: Regular rate and rhythm, without murmurs, rubs, or gallops. Respiratory: Bilateral Upper and Lower Lobes without wheezes, rales, or rhonchi Abdomen: Soft, rounded, non-tender. Bowel sounds present x4 quadrants. No rebound. No organomegaly or masses noted upon deep palpation. Extremities: No edema, clubbing or cyanosis, pulses palpable 2+ distally. Skin: Warm, Dry, Intact. Discharge Medications: Medication List for when you go home START taking these medications levoFLOXacin 500 MG TABS Take 1 tablet by mouth daily for 4 days. Commonly known as: LEVAQUIN predniSONE 20 MG TABS Take 2 tablets by mouth 2 times daily for 3 days, THEN 1 tablet 2 times daily for 4 days, THEN 0.5 tablets 2 times daily for 4 days. Commonly known as: DELTASONE Start taking on: August 02, 2021 CONTINUE taking these medications * albuterol (2.5 MG/3ML) 0.083% inhalation solution Take 2.5 mg by nebulization every 6 hours as needed for Shortness of Breath. Commonly known as: PROVENTIL * albuterol 108 (90 Base) MCG/ACT AERS inhaler Inhale 1 puff every 6 hours as needed for Shortness of Breath. mometasone Furo-Formoterol Fum 200-5 MCG/puff AERO Inhale 2 puffs every 12 hours. Commonly known as: DULERA * The same medication is listed twice. Please discuss with your provider. Discharge Activity: Resume pre-hospital activities as tolerated. Discharge Diet: Resume pre-hospital diet as tolerated. Discharge Follow-up: Dez Bhagat MD [id number] [phone] In 1 week Stefan Tovar MD [address] [phone] In 1 week Discharge Disposition: Patient will be discharged in stable condition. Discharge Time: Including assessment, planning, and medication reconciliation was greater than 35 min. Huan Hoover PA-C completing Discharge Summary for Dr. Luna Please note portions of this note utilized Vapor[employer] dictation software, please excuse any typographical or grammatical errors Associated attestation - Osmin Luna MD - 08/02/2021 4:58 PM EST I have personally seen and examined Srini Menon. I have personally reviewed all available clinical data related to this encounter including, but not limited to, radiolgraphs and reports, laboratory data, and procedure reports. I have been fully involved in formulation of the assessment and plan. DOS: Doing better ROS: Ten systems reviewed, unless limited by patient' or care providers' inability or unavailability. Reported above or following. Assessment and additional plans: COPD exacerbation; PNA; nicotine dependence Plan: AB; Dulera; PCP follow up and smoking cessation Contact me if you need any clarification. Osmin Luna, MDdocumented in this encounter [facility] 08-02-2021 History of Presen t illness Narrative 08/02/21 1130 Time In/Out Time In 1130 Subjective RN Approved Intervention as tolerated Existing Precautions/Restrictions fall Subjective Reports Pt sitting in bedside chair upon arrival this sessoin. Pt agreeable for therapy and pt denies any pain. Cognitive Status Examination Orientation Status (Cognition) oriented x 4 Level of Consciousness alert;cooperative Able to Follow Commands (Communication) WFL Personal Safety and Judgment intact General Pain Documentation (Adult, OB, Peds) Presence of Pain denies pain/discomfort Objective Therapeutic Interventions Pt sitting in bedside chair upon arrival this session. Pt agreeable for therapy and pt began with STS independently and then pt ambulated approx 70ft total with multiple 90 and 180 degree turns with pt holding onto IV pole with no LOB noted with SBA. Pt then transfered back to sitting in bedsdie chair for rest break. Pt then completed B LE ther ex including marches, LAQs, hip abd, ankle pumps, and pillow squeezes x10 reps each. Pt then completed STS x10 reps with good technique with good eccentric control. CONFERENCE CENTER MANAGER provided pt with handout for seated HEP with pt demonstrating a good understanding. Advised pt to continue to walk periodically throughout the day to improve endurance and overall lung function. Pt remained sitting in bedsdie chair with call light left within reach. Transfer Skill: Sit To Stand, Rehab Eval Sieper (Sit-Stand Transfers) independent Physical Assist/Nonphysical Assist: Sit/Stand 1 person assist Weight-Bearing Restrictions: Sit/Stand full weight-bearing Assistive Device For Transfer: Sit/Stand (none used) Gait Skills, PT Eval Level of Sieper: Gait stand-by assist Physical Assist/Nonphysical Assist: Gait supervision Assistive Device For Transfer: Gait (Pt holding onto IV pole) Gait Distance (Approx 70ft total) Gait Analysis, PT Eval Gait Pattern Used swing-through gait Plan Plan for next visit Cont with LE strengthening ex, endurance, and mobility if pt not discharged Maintain frequency yes PRESSURE SUPERVISOR spoke with patient to discuss discharge plans. Patient states he currently lives in a 2 story home with his and his son. He states that he stays on the main floor. Patient states that he does not have advance directives, but did confirm his emergency contacts. He states that he is independent with all ADLs and does not use any medical equipment. He has a PCP and can afford his medications. He states that he does not have a need for home health care. Discharge Plan: Patient will return home with no needs. 08/02/21 1031 Information Source Information Source patient Contact Information Signing Agent/SW Added to Care Team Yes This Primary Mill Roller is Primary Signing Agent/SW Yes Social Work Contact Name Medina Dotson Senior Talent Management Consultant's Living Environment Lives With spouse;child(rebecca), adult (Son and ) Living Arrangements house Provides Primary Care For no one Primary Care Provided By self Support System Immediate family Able to Return to Prior Arrangements yes Employment/Financial Employed? No Cognitive/Perceptual/Developmental Current Mental Status/Cognitive Functioning no deficits noted Developmental Stage Stage 8 (65 years-/Late Adulthood) Integrity vs. Despair Emotional/Psychological Affect no deficits noted Mood congruent to situation Verbal Skills no deficits noted Current Interpersonal Conduct/Behavior appropriate to situation Mental Health Conditions/Symptoms none;denies Thought Process Alterations no deficits noted Previous Mental Health Treatment none Referral Information Referral Source admission list;physician 08/01/21 1030 Time In/Out Time In 1030 Time Out 1115 Total Visit Time 45 minutes Initial Evaluation/Screen Completed? yes General Information RN Approved Intervention as tolerated Diagnosis Multifactorial Pnemonia Surgical Procedure none Past Medical History Past Medical History: Diagnosis Date COPD (chronic obstructive pulmonary disease) Past Surgical History No past surgical history on file. 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 Previous Level of Function Ambulation Skills independent Assistive Device none used Level of Ambulation community General Pain Documentation (Adult, OB, Peds) Presence of Pain denies pain/discomfort Cognitive Status Examination Orientation Status (Cognition) oriented x 4 Level of Consciousness alert;cooperative Able to Follow Commands (Communication) WFL Personal Safety and Judgment intact Range of Motion (ROM) Range of Motion Examination no ROM deficits were identified Manual Muscle Testing (MMT) Manual Muscle Testing Results (5/5 BLE) Mobility Additional Documentation (bed mobility Ind) Bed Mobility Skill: Supine to Sit, Rehab Eval Level of Sieper: Supine/Sit independent Transfer Skill: Sit To Stand, Rehab Eval Sieper (Sit-Stand Transfers) independent Gait Skills, PT Eval Level of Sieper: Gait independent Physical Assist/Nonphysical Assist: Gait supervision Assistive Device For Transfer: Gait (none used) Gait Distance 25 feet (in room) Gait Analysis, PT Eval Gait Pattern Used swing-through gait Impairments Contributing To Gait Deviations (Pt does have decreased activity tolerance) Balance Additional Documentation (Good ) Plan of Care Interventions Planned Therapy Interventions endurance;functional activity tolerance;gait training Assessment Assessment Narrative Pt is 70 y/o male admitted for multifactorial pneumonia. Pt has been feeling sick and fatigued for 1 week prior to admission. He does have a cough but seems to be non-productive at this time. He has been tested for COVID-19 but was negative. He does have COPD and reports a baseline level of RAMESH however is worse over the last week compared to his baseline. SpO2 at rest 92, HR 93. With activity SpO2 scarlett between 92-94% and HR 93-97 bpm. Although these are WFL, he should still be monitored with activity as his levels were dropping yesterday with activity according to his chart. Discharge Recommendations home with spouse at [facility] Clinical Impression Criteria for Skilled Therapeutic Interventions Met (PT Eval) yes, treatment indicated Impairments Found (PT Eval) Aerobic capacity/endurance;Ventilation and respiration/gas exchange Rehab Potential (PT Eval) good Therapy Frequency 5 times a week Today's Treatment Included activity tolerance, endurance training Goals Goal 1 Pt will be ind in [facility] for activity tolerance Goal 2 Pt will ambulate at east 50' without use of AD ind with RPE below 4/10 for adequate activity [place]elrance for ADLs within the home Goal 3 Pt will improved 5 x STS to below 15 sec to show MDC and RPE below 4/10. Therapist Recommendations At Discharge Recommendations PT Services not recommended at Discharge Plan Plan for next session funconal capacity, activiy tolerance, endurance trianing, monitor SpO2 and HR with activity Therapist Information License # [id number] Dedra Boles PT 08/01/21925 Time In/Out Time In 925 Time Out 952 Total Visit Time 27 minutes Total Treatment Time 23 minutes Initial Evaluation/Screen Completed? yes General Information RN Approved Intervention as tolerated Admitting Diagnosis Multifocal pneumonia Surgical Procedure (None) Past Surgical History No past surgical history on file. Past Medical History Past Medical History: Diagnosis Date COPD (chronic obstructive pulmonary disease) Existing Precautions/Restrictions fall Previous Level of Function Bed Mobility/Transfers independent Bathing independent Upper Body Dressing independent Lower Body Dressing independent Grooming independent Toileting independent Eating independent Home Management Skills independent General Pain Documentation (Adult, OB, Peds) Presence of Pain denies pain/discomfort DVPRS (Defense and Veterans Pain Rating Scale) DVPRS: Rest 0- no pain DVPRS: Activity 0- no pain Home Setting Residence House Lives With spouse;child(rebecca) First floor setup bedroom;walk-in shower;grab bars Number of Stairs to Enter Home (1 LOGAN) Stair Railings at Home none Equipment Available straight cane;wheelchair Cognitive Status Examination Orientation Status (Cognition) oriented x 4 Level of Consciousness alert;cooperative Able to Follow Commands (Communication) WFL Personal Safety and Judgment intact Cognitive Function Sequence intact Sensory Examination Sensory Examination WFL (Informally assessed) Proprioception Proprioception intact (Informally assessed) Range of Motion (ROM) Range of Motion Examination no ROM deficits were identified ROM: Shoulder. Rehab Eval Left Shoulder Flexion AROM WFL Right Shoulder Flexion AROM WFL Manual Muscle Testing (MMT) Hand Vascular Physician, Right strong Hand Vascular Physician, Left strong Skin Integrity Skin Integrity Description Bruising Edema Edema none noted Bed Mobility Skill: Supine to Sit, Rehab Eval Level of Sieper: Supine/Sit supervision Physical Assist/Nonphysical Assist: Supine/Sit verbal cues;1 person assist Transfer Skill: Sit to Stand, Rehab Eval Level of Sieper: Sit/Stand supervision Physical Assist/Nonphysical Assist: Sit/Stand 1 person assist Weight-Bearing Restrictions: Sit/Stand full weight-bearing Transfer Skill: Stand to Sit, Rehab Eval Level of Sieper: Stand/Sit supervision Physical Assist/Nonphysical Assist: Stand/Sit verbal cues;1 person assist Weight-Bearing Restrictions: Stand/Sit full weight-bearing Gross Coordination Gross Coordination bilat UE intact General Therapy Interventions Planned Therapy Interventions (OT Eval) ADL retraining;strengthening;balance training Clinical Impression Co-evaluation/co-treatment performed? No simultaneous treatment performed Patient Instruction Implementation of EC techniques, safety adherance with functional mobility/ endurance, purpose of OT, OOB benefit, and use of assitance when transfering out of bed/ to toilet. Rehab Potential (OT Eval) good, to achieve stated therapy goals Therapy Frequency 5 times a week Anticipated Equipment Needs at Discharge (OT Eval) to be determined Today's Treatment Included While supine in bed, pt. demo's SOB with O2 sats maintaining 92%. Instruction provided to sit edge of bed with increased time, with VC for sequencing with pts. breathing becoming more labored. O2 sats maintaining >90% with instruction to implement PLB techniques with time needed to recover. Pt. sitting edge of bed with G sitting balance x10 minutes; Pt. instructed to doff/ alexa LB clothing (socks) while using compensatory techniques. Increased time, completing at SBA. Pt. standing from edge of bed and engaged in functional mobility/ endurance task in room with CGA and increasing SOB noted. Once resting, O2 sats maintaining >90% with increased time needed to recover. Discuseed with pt. on asking for assistance when getting out of bed to improve safety and decrease risk of falling in addtion to simple UB exercises to implement to improve ease of breathing with good understanding noted. Pt. wishing to sit on edge of bed verse chair with instruction provided on benefit of OOB tolerance with good understanding noted. Continue care plan yes Goals Goals For Discharge Pt. to return home after d/c Therapist Recommendations At Discharge Recommendations Will recommend closer to Discharge Plan Plan for next session ADL progression, functional mobility/ endurance, UB strengtheing HEP Therapist Information License # [id number] Pt. Will complete all toileting tasks (clothing management, hygiene, trasnfer) with OH Pt. Will complete UB/ LB dressing with OH Pt. Will complete UB/ LB bathing with OH Pt. Will complete G/H tasks standing at sink x10 minutes with good balance at OH OT will create a UB HEP with 100% reverse demonstration noted documented in this encounter [facility] 08-01-2021 History and physi alysa note History and Physical Examination 08/01/21 1:42 PM Chief Complaint: Shortness of Breath History of Present Illness: Patient is a 70 y.o. male presents to [facility] for evaluation of shortness of breath. Patient reports cough for 4 days with worsening shortness of breath. Denies active chest pains. Reports infrequent fevers. Not vaccinated for COVID. Reports positive exposure. COPD history and still smoking daily. On arrival patient tachypnic. Not hypoxic. CT PE shows multifocal PNA concerning for PNA however testing negative for COVID. CRP slightly elevated. Blood cultures obtained. Started on levaquin and steroids and admitted for further evaluation of pneumonia and COPD. Troponin negative. Objective: Patient Active Problem List Diagnosis Date Noted Chronic obstructive pulmonary disease with acute exacerbation 08/01/2021 Tobacco abuse 08/01/2021 Hypoalbuminemia 08/01/2021 Vitamin D deficiency 08/01/2021 Multifocal pneumonia 07/31/2021 Past Medical History: Diagnosis Date COPD (chronic obstructive pulmonary disease) No past surgical history on file. Social History Tobacco Use Smoking status: Current Every Day Smoker Smokeless tobacco: Never Used Substance Use Topics Alcohol use: Never History reviewed. No pertinent family history. Medications Prior to Admission Medication Sig Dispense Refill Last Dose albuterol (2.5 MG/3ML) 0.083% inhalation solution Take 2.5 mg by nebulization every 6 hours as needed for Shortness of Breath. 07/30/2021 albuterol 108 (90 Base) MCG/ACT Aero Soln inhaler Inhale 1 puff every 6 hours as needed for Shortness of Breath. 07/30/2021 mometasone Furo-Formoterol Fum 200-5 MCG/puff Aerosol Inhale 2 puffs every 12 hours. 07/30/2021 Allergies Allergen Reactions Prednisone ALL STEROIDS Vitamin C [Ascorbate] Review of Systems: Shortness of breath , see HPI Ten systems reviewed and found to be negative unless otherwise stated in the history and present illness. PHYSICAL EXAM: Patient Vitals for the past 8 hrs: BP Temp Temp src Pulse Resp SpO2 Height Weight 08/01/21 1150 117/59 97.8 F (36.6 C) Oral 63 18 94 % 08/01/21 1003 1.829 m (6') 90.7 kg (200 lb) 08/01/21 0811 134/78 98 F (36.7 C) Oral 80 18 93 % General: Patient resting comfortably. Awake. No acute distress. HEENT: Normalcephalic, atraumatic. Pupils equal, round, reactive, to light and accomodation B/L. Bilateral nares patent without obvious drainage. Oral mucosa moist, pink, intact without ulcers or lesions. Neck: No JVD, no thyromegaly, no anterior or posterior lymphadenopathy. Cardiovascular: Regular rate and rhythm, without murmurs, rubs, or gallops. Respiratory: Wheezing throughout Abdomen: Soft, rounded, non-tender. Bowel sounds present x4 quadrants. No rebound. No organomegaly or masses noted upon deep palpation. Extremities: No edema, clubbing or cyanosis, pulses palpable 2+ distally. Skin: Warm, Dry, Intact. No obvious rashes or lesions noted. Neuro: Patient awake, alert, orientedx3. Cranial nerves 2-12 grossly intact upon seated examination. No focal defiects noted. M/S: No joint errythema or pain noted; no clubbing Diagnostics: Lab Results Component Value Date WBC 3.2 (L) 08/01/2021 HGB 13.2 (L) 08/01/2021 HCT 37.8 (L) 08/01/2021 PLATELET 189 08/01/2021 MCV 91.6 08/01/2021 @LASTMAGNESIUM(1D,2)@ Lab Results Component Value Date INR 1.40 (H) 08/01/2021 INR 1.17 (H) 07/31/2021 PT 17.3 (H) 08/01/2021 PT 15.1 (H) 07/31/2021 Lab Results Component Value Date CREATSERUM 0.96 08/01/2021 BUN 12 08/01/2021 SODIUM 136 08/01/2021 POTASSIUM 3.5 08/01/2021 CHLORIDE 105 08/01/2021 CO2 22 08/01/2021 Impression and Plan: Principal Problem: Multifocal pneumonia - Continue IV Levaquin. Solumedrol continued. Not hypoxic. Cultures pending , COVID Negative , not on oxygen Active Problems: Chronic obstructive pulmonary disease with acute exacerbation - Continue steroids and levaquin Tobacco abuse Hypoalbuminemia Vitamin D deficiency PT OT SS for dc planning GI/DVT prophylaxis with protonix and Lovenox This plan of care was initiated in collaboration with the attending physician Dr. Luna Please note Portions of this note utilized TapMeation software, please excuse any typographical or grammatical errors Huan Hoover PA-C [facility] Associated attestation - Osmin Luna MD - 08/01/2021 4:33 PM EST I have personally seen and examined Srini Menon. I have personally reviewed all available clinical data related to this encounter including, but not limited to, radiolgraphs and reports, laboratory data, and procedure reports. I have been fully involved in formulation of the assessment and plan. DOS: Patient presented to emergency room due to complaints of dyspnea patient was found to have wheezing. Patient is a smoker. Due to respiratory distress she was admitted for further management. ROS: Ten systems reviewed, unless limited by patient' or care providers' inability or unavailability. Reported above or following. Assessment and additional plans: COPD exacerbation with wheezing. Bilateral lung infiltrates with suspicion for pneumonia. Nicotine dependence. Plan: Administer oxygen as needed to maintain saturation above 90%. Antibiotics. Bronchodilators. Inhaled steroids. Solu-Medrol. Incentive spirometry. DVT prophylaxis. Contact me if you need any clarification. Osmin Luna, MDdocumented in this encounter [facility] 07-31-2021 Emergency departm ent Note Clarissa from [facility] called. Patient is admitted to room number 3755 under OBS. Room is ready. RN. Notified. Called Dr. Luna for Garland BROWN. Ambulated length of bethea and back to room. O2 sat 95% baseline to 91% during ambulation. Tachypneic during ambulation. Emergency Department Report [facility] Service Date:.07/31/21 PCP: Dez Bhagat Chief Complaint: Chief Complaint Patient presents with Cough for 4-5 days. pt reports everyone in the family has COVID . Fever Generalized Body Aches Nausea Shortness of Breath HPI Srini Mneon is a 70 y.o. male presents to the ED today due to Cough, shortness of breath, fever and generalized body aches for the past 5 days. Positive cold exposure. Patient is not vaccinated. He has a history of COPD. Not oxygen dependent. Increase use of nebulizers and inhalers at home. Positive diarrhea. No change in taste or smell. No headache, vision changes earache or sore throat. He denies any chest pain or palpitations. Positive dyspnea on exertion. No calf pain or swelling or tenderness. Appetite fluids have been diminished. Review of Systems: Review of Systems Constitutional: Positive for fatigue. HENT: Positive for congestion. Eyes: Negative. Respiratory: Positive for cough and shortness of breath. Cardiovascular: Negative. Gastrointestinal: Negative. Endocrine: Negative. Genitourinary: Negative. Musculoskeletal: Negative. Allergic/Immunologic: Negative. Neurological: Negative. Hematological: Negative. Psychiatric/Behavioral: Negative. Past Medical History: Past Medical History: Diagnosis Date COPD (chronic obstructive pulmonary disease) Past Surgical History: No past surgical history on file. Allergies: Allergies Allergen Reactions Prednisone ALL STEROIDS Vitamin C [Ascorbate] Medications: Current Discharge Medication List CONTINUE these medications which have NOT CHANGED Details albuterol (2.5 MG/3ML) 0.083% inhalation solution Take 2.5 mg by nebulization every 6 hours as needed for Shortness of Breath. albuterol 108 (90 Base) MCG/ACT Aero Soln inhaler Inhale 1 puff every 6 hours as needed for Shortness of Breath. mometasone Furo-Formoterol Fum 200-5 MCG/puff Aerosol Inhale 2 puffs every 12 hours. Family History: History reviewed. No pertinent family history. Social History: Social History Socioeconomic History Marital status: Spouse name: Not on file Number of children: Not on file Years of education: Not on file Highest education level: Not on file Occupational History Not on file Tobacco Use Smoking status: Current Every Day Smoker Smokeless tobacco: Never Used Substance and Sexual Activity Alcohol use: Never Drug use: Never Sexual activity: Not on file Other Topics Concern Not on file Social History Narrative Not on file Social Determinants of Health Financial Resource Strain: Not on file Food Insecurity: Not on file Transportation Needs: Not on file Physical Activity: Not on file Stress: Not on file Social Connections: Not on file Intimate Partner Violence: Not on file Housing Stability: Not on file Physical Exam: General well-nourished well-developed patient in no acute distress and no respiratory distress. Answers my questions appropriately and follows my commands without difficulty. HEENT: normocephalic atraumatic. Pupils are equal round reactive to light and extraocular motions are intact. Tympanic membranes are clear bilaterally. Nasal mucosa is not boggy or erythematous. Oral mucosa is moist. There is no erythema or exudate. There is no swelling in the posterior ororopharynx. No unilateral swelling indicate abscess. There is no swelling of the lips, tongue or floor the mouth. No indication of Aashish's angina.Neck supple no adenopathy trachea is midline. Lungs: lungs Scattered wheezes and rhonchi all mahoney. Heart is of regular rate and rhythm. No murmur or gallop. Abdomen: soft and nontender no rebound or guarding in all 4 quadrants to both superficial and deep palpation. Bowel sounds active all 4 quadrants. Negative psoas, obturator heel jar. Neuro: cranial nerves II through XII are grossly intact. Patient has a nonfocal neurologic exam. Negative Romberg and negative pronator drift. 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 Dorsiflexion and plantarflexion is 5 over 5 in the lower extremities. Flexion extension of great toe was also intact bilaterally. Skin: No rashes or lesions. No splinter hemorrhage. Vascular: radial pulses are full and 2+ in the upper extremity's. Dorsalis pedis pulse and posterior tibial pulses are 2+ in the lower extremities. Vital Signs During ED Visit Patient Vitals for the past 24 hrs: BP Temp Temp src Pulse Resp SpO2 Weight 07/31/21 1446 125/64 87 18 95 % 07/31/21 1330 143/69 97 (!) 25 91 % 07/31/21 1303 129/60 96 17 95 % 07/31/21 1300 129/60 93 (!) 30 95 % 07/31/21 1230 153/73 89 (!) 29 96 % 07/31/21 1200 145/75 77 (!) 27 95 % 07/31/21 1133 93 kg (205 lb) 07/31/21 1132 107/71 99.6 F (37.6 C) Oral 99 (!) 26 93 % Differential Diagnosis: covid , Influenza, COPD exacerbation, PE, other etiology Orders/Results: Orders Placed This Encounter [facility] - NASOPHARYNGEAL BLOOD CULTURE, PERIPHERAL 2ND SITE BLOOD CULTURE, PERIPHERAL 1ST SITE MRSA NASAL SWABS TO BILATERAL NARES CT PE STUDY US DUPLEX EXTREMITY DVT BILATERAL CBC, EDIF, PLATELET COMPREHENSIVE METABOLIC PANEL D-DIMER,QUANTITATIVE INFLUENZA A AND B, PCR PROTIME-INR Troponin I, High sensitivity SEDIMENTATION RATE, AUTOMATED C REACTIVE PROTEIN Troponin I, High sensitivity RENAL FUNCTION PANEL CBC, EDIF, PLATELET C REACTIVE PROTEIN HEPATIC FUNCTION PANEL SEDIMENTATION RATE, AUTOMATED PROTIME-INR MAGNESIUM VITAMIN D (25-HYDROXY,TOTAL) ECG albuterol (2.5 MG/3ML) 0.083% inhalation solution albuterol 108 (90 Base) MCG/ACT Aero Soln inhaler ipratropium-albuterol (DUONEB) 0.5-2.5 (3) MG/3ML nebulizer solution 3 mL ipratropium-albuterol (DUONEB) 0.5-2.5 (3) MG/3ML nebulizer solution 3 mL ipratropium-albuterol (DUONEB) 0.5-2.5 (3) MG/3ML nebulizer solution 3 mL ondansetron 4mg/2ml (ZOFRAN) injection 4 mg sodium chloride 0.9% IV solution 500 mL iohexol (OMNIPAQUE) 350 MG/ML injection 75 mL sodium chloride 0.9% IV solution 75 mL mometasone Furo-Formoterol Fum 200-5 MCG/puff Aerosol ondansetron 4mg/2ml (ZOFRAN) injection 4 mg DISCONTD: levoFLOXacin (LEVAQUIN) 750 mg in dextrose 5% premix IVPB DISCONTD: ondansetron 4mg/2ml (ZOFRAN) injection 4 mg levoFLOXacin (LEVAQUIN) 750 mg in dextrose 5% premix IVPB DISCONTD: acetaminophen (TYLENOL) tablet 650 mg DISCONTD: ipratropium-albuterol (DUONEB) 0.5-2.5 (3) MG/3ML nebulizer solution 3 mL ipratropium-albuterol (DUONEB) 0.5-2.5 (3) MG/3ML nebulizer solution 3 mL acetaminophen (TYLENOL) tablet 325-650 mg sodium chloride 0.9% IV solution enOXAParin (LOVENOX) injection 40 mg labetalol (NORMODYNE) injection 20 mg magnesium sulfate 2 g/50 mL in sterile water premix IVPB 2 g 50 mL (total volume) ondansetron 4mg/2ml (ZOFRAN) injection 4 mg pantoprazole (PROTONIX) tablet DR 40 mg potassium phosphates 30 mmol in sodium chloride 0.9%, with overfill 535 mL (total volume) IVPB OR Linked Order Group potassium chloride (K-DUR) tablet ER 40 mEq potassium chloride 40 mEq in 0.9% sodium chloride 500 ml IVPB Acetylcysteine (NAC) capsule 1,200 mg cholecalciferol (VITAMIN D3) tablet 1,000 Units [facility] STREP PNEUMONIAE ANTIGEN, URINE Results for orders placed or performed during the hospital encounter of 07/31/21 [facility] - NASOPHARYNGEAL Specimen: NASOPHARYNGEAL; Fluid/Swab Result Value Ref Range SARS COV 2 RNA, QL REAL TIME RT PCR NOT DETECTED NOT DETECTED NARRATIVE -1 This test was performed using isothermal [place] and has been approved as Emergency Use Authorization (EUA) for the qualitative detection [id number] nucleic acid. CBC, EDIF, PLATELET Result Value Ref Range WBC (WHITE BLOOD COUNT) 4.8 3.6 - 11.0 10*3/uL RBC 4.73 4.0 - 6.1 10*6/uL HEMOGLOBIN (HGB) 14.9 14.0 - 18.0 G/DL HEMATOCRIT (HCT) 43.0 42.0 - 52.0 % MEAN CELL VOLUME 90.9 80.0 - 100.0 FL Mean Cell HGB 31.5 26.0 - 35.0 PG MEAN CELL HGB CONCENTRATION 34.7 27.0 - 37.0 G/DL RBC DISTRIBUTION 13.2 11.5 - 14.5 % PLATELET COUNT 188 130.0 - 400.0 10*3/uL MEAN PLATELET VOLUME 8.1 7.4 - 11.0 FL DIFFERENTIAL TYPE AUTO DIFF % NEUTROPHILS 77.0 (H) 37.0 - 75.0 % LYMPHOCYTE 11.2 (L) 20.0 - 55.0 % MONOCYTE % 11.3 (H) 0.0 - 10.0 % EOSINOPHIL % 0.2 0.0 - 11.0 % BASOPHIL % 0.3 0.0 - 2.0 % Absolute Neutrophil Count 3.7 1.4 - 6.5 10*3/uL LYMPHOCYTES, ABSOLUTE 0.50 (L) 1.2 - 3.4 10*3/uL MONOCYTES, ABSOLUTE 0.5 0.0 - 0.7 10*3/uL ABSOLUTE EOSINOPHIL COUNT 0.00 0.0 - 0.7 10*3/uL ABSOLUTE BASOPHIL COUNT 0.0 0.0 - 0.2 10*3/uL COMPREHENSIVE METABOLIC PANEL Result Value Ref Range GLUCOSE 103 (H) 70 - 100 MG/DL BUN 12 7 - 20 MG/DL CREATININE SERUM 1.00 0.66 - 1.25 MG/DL SODIUM 135 (L) 136 - 145 MMOL/L POTASSIUM 3.4 (L) 3.5 - 5.1 MMOL/L CHLORIDE 99 98 - 107 MMOL/L CALCIUM 8.6 8.4 - 10.2 MG/DL PROTEIN, TOTAL 7.4 6.3 - 8.2 GM/DL ALBUMIN 3.4 (L) 3.5 - 5.0 G/dl BILIRUBIN, TOTAL 0.6 0.2 - 1.2 MG/DL AST 30 15 - 41 IU/L ALKALINE PHOSPHATASE 96 38 - 126 IU/L CARBON DIOXIDE (CO2) 22 22 - 30 MMOL/L A/G Ratio 0.9 (L) 1.3 - 2.2 RATIO ALT 28 17 - 63 IU/L ESTIMATED GFR, NON AMER 79 ml/min/1.73sq.m ESTIMATED GFR, 95 ml/min/1.73sq.m GFR COMMENT Average GFR for 70+ years old = 75. D-DIMER,QUANTITATIVE Result Value Ref Range D-DIMER 1.95 (HH) <0.50 mg/L FEU INFLUENZA A AND B, PCR Result Value Ref Range INFLUENZA A NEGATIVE NEGATIVE INFLUENZA B NEGATIVE NEGATIVE PROTIME-INR Result Value Ref Range PT 15.1 (H) 11.8 - 14.4 SEC INR 1.17 (H) 0.85 - 1.10 TROPONIN I, HIGH SENSITIVITY Result Value Ref Range TROPONIN I, HIGH SENSITIVITY 8 0 - 20 pg/mL SEDIMENTATION RATE, AUTOMATED Result Value Ref Range SEDIMENTATION RATE AUTOMATED 44 (H) 0 - 20 MM/HR C REACTIVE PROTEIN Result Value Ref Range C-REACTIVE PROTEIN 60.2 (H) 0 - 10.0 MG/L Radiographic Imaging CT PE STUDY Final Result IMPRESSION: 1. No evidence of pulmonary embolism. 2. Patchy peripheral groundglass and interstitial infiltrative densities in the lung periphery bilaterally consistent with multifocal pulmonary infection. Appearance would be compatible with Covid associated pneumonia in the appropriate clinical setting. 3. Partial inclusion of simple fluid density lesions in the liver and left kidney, probably cysts. US DUPLEX EXTREMITY DVT BILATERAL (Results Pending) Lab/Imaging Results Summary: As above Procedures:none Procedures EKG RESULTS RHYTHM: Normal sinus rhythm RATE : 76 AXIS : Normal INTERVALS : CO interval [address] SEGMENT CHANGES : None COMPARISON TO PRIOR : none SUMMARY : No acute ST segment elevation OH on this EKG per Dr. Trevino and myself's review. I ordered, interpreted and acted upon this electrocardiogram during the patients ED visit. John Edwards PA-C Progress Notes/Re-evaluation: Cerner with 35 potassium 3. For quite 99 CO2 21 BUN 12 creatinine 1 troponin was 8 with greater than 12 hours symptoms glucose 103 d-dimer is 1.95 white count 4.8 H&H is stable. Platelet count of 188. Positive left shift. Sedimentation rate is 44. Influenza AB swab was were negative. Covert test was negative. C-reactive protein 60.2. CT chest showed no pulmonary embolism. Patient did have diffuse patchy peripheral groundglass and interstitial infiltrative densities in the lung periphery bilaterally consistent with multifocal pulmonary infection. There is a be most compatible with collated associated pneumonia in the appropriate clinical setting. Inclusion cyst lesions in the liver and left kidney. ED Summary: This time patient up ambulatory in the emergency department sats dropped to 91 patient and did become quite dyspneic.the code test was negative however the CT chest showed groundglass opacification consistent with Coumadin to pneumonia. Blood cultures were obtained the patient was given IV Levaquin. Discussed the case with just the bed coordinator as well as the cathode ray tube salvage processor. I will arrange hospitalization for this patient. Patient's case discussed with patient and family and they were agreeable to hospitalization at this time. Clinical Impression: #1 bilateral pneumonia #2 COPD exacerbation No diagnosis found. No follow-ups on file. Current Discharge Medication List Current Discharge Medication List An After Visit Summary was printed and given to the patient with above information. . John Edwards PA-C 07/31/21 3427 documented in this encounter [facility] Evaluation note Diagnosis Multifocal pneumonia- Primary Chronic obstructive pulmonary disease with acute exacerbation Obstructive chronic bronchitis with exacerbation Tobacco abuse Tobacco use disorder Hypoalbuminemia Other disorders of plasma protein metabolism Vitamin D deficiency Unspecified vitamin D deficiency [facility] Diagnosis Pulmonary emphysema, unspecified emphysema type [facility] Diagnosis Abdominal pain, right upper quadrant [facility] Diagnosis Neck mass Swelling, mass, or lump in head and neck [facility] Attachments The following attachments cannot be sent through Care Everywhere. * [facility] Control ([facility]) ([place]) [facility] Purpose Family History No Family History Records FoundNo Family History Records FoundNo Family History Records Found Advance Directives No Advanced Directives Records FoundLatest Code Status on File Code Status Date Activated Date Inactivated Comments Full Code 07/31/2021 3:14 PM Latest Code Status on File Code Status Date Activated Date Inactivated Comments Full Code 07/31/2021 3:14 PM Latest Code Status on File Code Status Date Activated Date Inactivated Comments Full Code 07/31/2021 3:14 PM Reason for Referral Specialty Diagnoses / Procedures Referred By Contac t Referred To Contact Procedures INPATIENT ADMISSION NOTIFICATION Osmin Luna MD [address] [place] [address] Referral ID Status Reason Start Date Expiration Date V isits Requested Visits Authorized [id number] New Request 07/31/2021 08/25/2022 1 1 Specialty Diagnoses / Procedures Referred By Contac t Referred To Contact Procedures ECG John Edwards PA-C [address] [place] [address] Referral ID Status Reason Start Date Expiration Date V isits Requested Visits Authorized [id number] New Request 07/31/2021 08/25/2022 1 1 Specialty Diagnoses / Procedures Referred By Contac t Referred To Contact Procedures C REACTIVE PROTEIN John Edwards PA-C [address] [place] [address] Referral ID Status Reason Start Date Expiration Date V isits Requested Visits Authorized [id number] New Request 07/31/2021 08/25/2022 1 1 Specialty Diagnoses / Procedures Referred By Contac t Referred To Contact Ultrasound Diagnoses Abdominal pain, right upper quadrant Procedures US ABDOMEN RUQ/[place] [address] [place] [id number] [facility] Ultrasound [address] [place] [phone] Referral ID Status Reason Start Date Expiration Date Visits Re quested Visits Authorized [id number] Closed 10/19/2021 11/13/2022 1 1 Specialty Diagnoses / Procedures Referred By Contac t Referred To Contact Diagnoses Neck mass Procedures US NECK SOFT TISSUE Dez Bhagat MD [address] [place] [phone] Phone: [facility] Referral ID Status Reason Start Date Expiration Date Visits Re quested Visits Authorized [id number] Closed 03/23/2023 04/16/2024 1 1 Specialty Diagnoses / Procedures Referred By Contac t Referred To Contact Diagnoses Neck mass Procedures CT NECK WITH CONTRAST CO CT NECK TISSUE CONTRAST Dez Bhagat MD [address] [place] [phone] Phone: [facility] Referral ID Status Reason Start Date Expiration Date Visits Re quested Visits Authorized [id number] Closed 04/28/2023 05/22/2024 1 1 Additional Source Comments (unrecognized sect ion and content) No Status Records FoundNo Status Records FoundNo Status Records Found INFORMATION SOURCE (unrecogn ized section and content) DATE CREATED AUTHOR 12/15/2017 [facility] DATE CREATED AUTHOR AUTHOR'S ORGANIZ ATION 12/02/2022 [facility] DATE CREATED AUTHOR AUTHOR'S ORGANIZ ATION 05/13/2023 [facility] Reason for Visit (unrecogniz ed section and content) Reason Comments Cough for 4-5 days. pt rep orts everyone in the family has COVID . Fever Generalized Body Aches Nausea Shortness of Breath Specialty Diagnoses / Procedures Referred By Contac t Referred To Contact Referral ID Status Reason Start Date Expiration Date Visits Re quested Visits Authorized [id number] 1 1 Specialty Diagnoses / Procedures Referred By Contac t Referred To Contact Ultrasound Diagnoses Abdominal pain, right upper quadrant Procedures US ABDOMEN RUQ/LIVER/GB Dez Bhagat MD [address] [place] [address] [facility] Ultrasound [address] [place] [phone] Referral ID Status Reason Start Date Expiration Date Visits Re quested Visits Authorized [id number] Closed 10/19/2021 11/13/2022 1 1 Specialty Diagnoses / Procedures Referred By Contac t Referred To Contact Diagnoses Neck mass Procedures [place] [address] [place] [phone] Phone: [facility] Referral ID Status Reason Start Date Expiration Date Visits Re quested Visits Authorized [id number] Closed 03/23/2023 04/16/2024 1 1 Specialty Diagnoses / Procedures Referred By Contac t Referred To Contact Diagnoses Neck mass Procedures CT NECK WITH CONTRAST CO CT NECK TISSUE CONTRAST Dez Bhagat MD [address] [place] [phone] Phone: [facility] Referral ID Status Reason Start Date Expiration Date Visits Re quested Visits Authorized [id number] Closed 04/28/2023 05/22/2024 1 1 Scheduled Active and Recently Administ ered Medications (unrecognized section and content) Medication Order 07/31/2021 08/01/2021 08/02/2021 Acetylcysteine (NAC) capsule 1,200 mg 1,200 mg, Oral, EVERY 12 HOURS, First dose on 07/31/21 at 2100, Until Discontinued 2021 (Given - Provider: Fracisco Sosa, RN) 0834 (Given - Provider: Martin Rodriguez, RN)2051 (Given - Provider: Fracisco Sosa, RN) 0858 (Given - Provider: Patricia Schilling, YOLY) benzonatate (TESSALON) capsule 100 mg (COMPLETED) 100 mg, Oral, ONCE, 1 dose, On 08/01/21 at 0945 1000 (Given - Provider: Martin Rodriguez, YOLY) cholecalciferol (VITAMIN D3) tablet 1,000 Units 1,000 Units, Oral, DAILY, First dose on 08/01/21 at 0900, Until Discontinued 0835 (Given - Provider: Martin Rodriguez, YOLY) 0858 (Given - Provider: Patricia Schilling, YOLY) enOXAParin (LOVENOX) injection 40 mg 40 mg, Subcutaneous, DAILY, First dose on 08/01/21 at 0900, Until Discontinued, Indications: DVT/PE prophylaxis 0835 (Given - Provider: Martin Rodriguez RN) 0858 (Given - Provider: Patricia Schilling, YOLY) iohexol (OMNIPAQUE) 350 MG/ML injection 75 mL (COMPLETED) 75 mL, Intravenous, ONCE, 1 dose, On 07/31/21 at 1315, Extravasation Risk, Radiology Procedure 1248 (Given - Radiology - Provider: Vivian Rivera) ipratropium-albuterol (DUONEB) 0.5-2.5 (3) MG/3ML nebulizer solution 3 mL (COMPLETED) 3 mL, Nebulization, ONCE, 1 dose, On 07/31/21 at 1215 1219 (Given - Provider: Iliana Anderson RRT) ipratropium-albuterol (DUONEB) 0.5-2.5 (3) MG/3ML nebulizer solution 3 mL (COMPLETED) 3 mL, Nebulization, ONCE, 1 dose, On 07/31/21 at 1215 1216 (Given - Provider: Iliana Monica, NETWORK CONTROL OPERATORS SUPERVISOR) ipratropium-albuterol (DUONEB) 0.5-2.5 (3) MG/3ML nebulizer solution 3 mL (COMPLETED) 3 mL, Nebulization, ONCE, 1 dose, On 07/31/21 at 1215 1208 (Given - Provider: Iliana Anderson, NETWORK CONTROL OPERATORS SUPERVISOR) ipratropium-albuterol (DUONEB) 0.5-2.5 (3) MG/3ML nebulizer solution 3 mL (COMPLETED) 3 mL, Nebulization, ONCE, 1 dose, On 08/02/21 at 1015 1112 (Given - Provider: Shaye Davey, NETWORK CONTROL OPERATORS SUPERVISOR) levoFLOXacin (LEVAQUIN) 750 mg in dextrose 5% premix IVPB (CANCELED) 750 mg, Intravenous, Administer over 90 Minutes, EVERY 24 HOURS, First dose on 07/31/21 at 1500, Until Discontinued 1500 ($$New Bag$$ - Provider: Martin Rodriguez RN - Comment: given per pharmacy; was not given in ED) levoFLOXacin (LEVAQUIN) 750 mg in dextrose 5% premix IVPB 750 mg, Intravenous, Administer over 90 Minutes, EVERY 24 HOURS, First dose on 08/01/21 at 1500, Until Discontinued 1500 ($$New Bag$$ - Provider: Martin Rodriguez RN)1946 (Stopped - Provider: Fracisco Sosa RN) 1451 (Canceled Entry - Provider: Patricia Schilling RN - Comment: Pt being Discharge with PO levaquin.) magnesium sulfate 2 g/50 mL in sterile water premix IVPB 2 g 50 mL (total volume) 2 g, Intravenous, Administer over 4 Hours, DAILY, First dose on 08/01/21 at 0600, Until Discontinued, Give if magnesium is less than 2 on morning labs. Infuse at a rate of 0.5 gm/hour. 0834 ($$New Bag$$ - Provider: Martin Rodriguez RN)1240 (Stopped - Provider: Fracisco Sosa RN) 0726 (Not Given - Provider: Patricia Schilling, YOLY - Reason: Order Parameters not met) methylPREDNISolone sodium succinate (SOLU-MEDROL) injection 80 mg 80 mg, Intravenous, EVERY 8 HOURS, First dose on 2/6/22 at 1400, Until Discontinued 1531 (Given - Provider: Martin Rodriguez RN)2315 (Given - Provider: Fracisco Sosa, RN - Comment: forgot tp scan) 0634 (Given - Provider: Fracisco Sosa RN)1320 (Given - Provider: Patricia Schilling, RN) ondansetron 4mg/2ml (ZOFRAN) injection 4 mg (COMPLETED) 4 mg, Intravenous, ONCE, 1 dose, On 07/31/21 at 1245 1209 (Given - Provider: Krystina Herr, RN) ondansetron 4mg/2ml (ZOFRAN) injection 4 mg (COMPLETED) 4 mg, Intravenous, ONCE, 1 dose, On 07/31/21 at 1500 1451 (Given - Provider: Krystina Herr, RN) pantoprazole (PROTONIX) tablet DR 40 mg 40 mg, Oral, DAILY, First dose on 08/01/21 at 0900, Until Discontinued, Do not crush., Indications: Inpt Stress Ulcer Prophylaxis 0835 (Given - Provider: Martin Rodriguez RN) 0858 (Given - Provider: Patricia Schilling, YOLY) potassium chloride (K-DUR) tablet ER 40 mEq(Linked Group 1) 40 mEq, Oral, DAILY, First dose on 07/31/21 at 1545, Until Discontinued, Give if potassium is 3.1 to 3.4 on morning labs and patient is able to tolerate oral medications Swallow tablets whole; do not crush, chew, or suck on tablet. Tablet may also be broken in half and each half swallowed separately. 1543 (Given - Provider: Martin Rodriguez RN) 0726 (Not Given - Provider: Martin Rodriguez RN - Reason: Order Parameters not met) 0726 (Not Given - Provider: Patricia Schilling RN - Reason: Order Parameters not met) potassium chloride 40 mEq in 0.9% sodium chloride 500 ml IVPB(Linked Group 1) 40 mEq, Intravenous, at 125 mL/hr, Administer over 4 Hours, DAILY, First dose on 07/31/21 at 1545, Until Discontinued, Give if potassium is less than 3.1 on morning labs OR if potassium is 3.1 to 3.4 on morning labs and patient is UNABLE to tolerate oral medications 1543 (See Alternative - Provider: Martin Rodriguez RN) 0726 (See Alternative - Provider: Martin Rodriguez RN) 0726 (See Alternative - Provider: Patricia Schilling, RN) sodium chloride 0.9% IV solution 500 mL (COMPLETED) 500 mL, Intravenous, ONCE, 1 dose, On 07/31/21 at 1245 1210 ($$New Bag$$ - Provider: Krystina Herr, RN)1217 (Stopped - Provider: Krystina Herr, RN) sodium chloride 0.9% IV solution 75 mL (COMPLETED) 75 mL, Intravenous, ONCE, 1 dose, On 07/31/21 at 1315, Radiology Procedure 1247 ($$New Bag$$ - Provider: Vivian Rivera)1255 (Stopped - Provider: Krystina Herr RN) Continuous Medication Order 07/31/2021 08/01/2021 08/02/2021 sodium chloride 0.9% IV solution Intravenous, at 75 mL/hr, CONTINUOUS, Starting on 07/31/21 at 1545, Until 08/02/21 at 1844 1543 ($$New Bag$$ - Provider: Martin Rodriguez RN) 0835 (Stopped - Provider: Martin Rodriguez RN - Comment: per patient) 1450 (Stopped - Provider: Patricia Schilling, YOLY) PRN Medication Order 07/31/2021 08/01/2021 08/02/2021 acetaminophen (TYLENOL) tablet 325-650 mg 325-650 mg, Oral, EVERY 4 HOURS NEEDED, Starting on 07/31/21 at 1533, Until 08/02/21 at 1844, Mild Pain, Maximum dose of acetaminophen is 4000 mg from all sources in 24 hours. 1543 (Given - Provider: Martin Rodriguez RN) 0835 (Given - Provider: Martin Rodriguez RN) ipratropium-albuterol (DUONEB) 0.5-2.5 (3) MG/3ML nebulizer solution 3 mL 3 mL, Nebulization, EVERY 4 HOURS NEEDED, Starting on 07/31/21 at 1533, Until 08/02/21 at 1844, Shortness of Breath labetalol (NORMODYNE) injection 20 mg 20 mg, Intravenous, EVERY 4 HOURS NEEDED, Starting on 07/31/21 at 1533, Until Mon /7/22 at 1844, systolic blood pressure greater than 160, Administration duration: up to 20 mg over 2 minutes. ondansetron 4mg/2ml (ZOFRAN) injection 4 mg 4 mg, Intravenous, EVERY 4 HOURS NEEDED, Starting on 07/31/21 at 1533, Until Mon08/02/21 at 1844, Nausea / Vomiting potassium phosphates 30 mmol in sodium chloride 0.9%, with overfill 535 mL (total volume) IVPB 30 mmol, Intravenous, Administer over 6 Hours, NEEDED, Starting on 07/31/21 at 1533, Until Mon08/02/21 at 1844, Other, If phospate <2.5, give 30mmol, Extravasation Risk Linked Groups Order Group 1: potassium chloride (K-DUR) tablet ER 40 mEqJump to med 40 mEq, Oral, DAILY, First dose on 07/31/21 at 1545, Until Discontinued
Give if potassium is 3.1 to 3.4 on morning labs and patient is able to tolerate oral medications Swallow tablets whole; do not crush, chew, or suck on tablet. Tablet may also be broken in half and each half swallowed separately.
Or potassium chloride 40 mEq in 0.9% sodium chloride 500 ml IVPBJump to med 40 mEq, Intravenous, at 125 mL/hr, Administer over 4 Hours, DAILY, First dose on 07/31/21 at 1545, Until Discontinued
Give if potassium is less than 3.1 on morning labs OR if potassium is 3.1 to 3.4 on morning labs and patient is UNABLE to tolerate oral medications
Care Teams (unrecognized sec tion and content) Scowman Relationship Specialty Start Date End Date Dez Bhagat MD [address] [place] [address] PCP - General Family Medicine 11/20/19 Scowman Relationship Specialty Start Date End Date Dez Bhagat MD [address] [place] [address] PCP - General Family Medicine 11/20/19 Scowman Relationship Specialty Start Date End Date Dez Bhagat MD [address] [facility] [place] [address] PCP - General Family Medicine 11/20/19 Scowman Relationship Specialty Start Date End Date Dez Bhagat MD [address] [facility] [place] [address] PCP - General Family Medicine 11/20/19 Scowman Relationship Specialty Start Date End Date Dez Bhagat MD [address] [place] [address] PCP - General Family Medicine 11/20/19 FOR RECORDS PERTAINING TO PATIENTS WHO ARE OR HAVE BEEN ENROLLED IN A CHEMICAL DEPENDENCY/SUBSTANCEABUSE PROGRAM, SOME INFORMATION MAY BE OMITTED. This clinical summary was aggregated from multiple sources. Caution should be exercised in using it in the provision of clinical care. This summary normalizes information from multiple sources, and as a consequence, information in this document may materially change the coding, format and clinical context of patient data. In addition, data may be omitted in some cases. CLINICAL DECISIONS SHOULD BE BASED ON THE PRIMARY CLINICAL RECORDS. [employer] [facility] provides no warranty or guarantee of the accuracy or completeness of information in this document.
[2023-07-05] MEDS: ALBUTEROL SULFATE 2.5 MG/3 ML VIAL NEB IH (15:51)
[2023-07-05 16:10] LABS: Basophils Absolute Auto 0.1 10^3/uL (0.0-0.1); Basophils Percent Auto 0.8 % (0.2-2.0); Eosinophils Absolute Auto 0.2 10^3/uL (0.0-0.7); Eosinophils Percent Auto 2.1 % (0.9-7.0); Hematocrit 46.1 % (42.0-54.0); Hemoglobin 14.8 g/dL (14.0-18.0); Immature Granulocytes Abs Auto 0.04 10^3/uL (0.00-0.03); Immature Granulocytes Pct Auto 0.5 % (0.0-0.5); Lymphocytes Absolute Auto 1.6 10^3/uL (1.2-3.8); Lymphocytes Percent Auto 20.9 % (20.5-60.0); Mean Corpuscular HGB Conc 32.1 g/dL (29.9-35.2); Mean Corpuscular Hemoglobin 29.7 pg (25.9-34.0); Mean Corpuscular Volume 92.4 fL (80.0-94.0); Mean Platelet Volume 8.5 fL (9.5-13.5); Monocytes Absolute Auto 0.8 10^3/uL (0.3-0.8); Monocytes Percent Auto 9.7 % (1.7-12.0); Neutrophils Absolute Auto 5.1 10^3/uL (1.4-6.5); Platelet Count 315 10^3/uL (150-450); Red Blood Count 4.99 10^6/uL (4.70-6.10); Red Cell Distribution Width 13.4 % (11.0-15.0); White Blood Count 7.7 10^3/uL (4.0-11.0)
[2023-07-05] MEDS: METHYLPREDNISOLONE SOD SUCC PF 125 MG/2 ML VIAL IVP (16:13)
--- NOTE | 2023-07-05 16:20 | ED_ITS ---
HPI - SOB/Dyspnea General Chief Complaint: Shortness of Breath/Dyspnea Stated Complaint: SHORTNESS OF BREATH Time Seen by Provider: 07/05/23 15:08 Source: patient Mode of arrival: walk-in History of Present Illness HPI Narrative: Patient is a 72-year-old male referred to the emergency department for cough, congestion for the last 2 weeks. He denies chest pain, fevers. He has a history of COPD and uses breathing treatments at home. He states he is coughing up yellow and green sputum with no hemoptysis. He called his PCP office and was referred to the emergency department for probable admission. He is concerned he may have pneumonia. Related Data Home Medications Medication Instructions Recorded Confirmed albuterol sulfate 90 mcg/actuation 2 inh inhalation Q6H PRN shortness 03/05/23 04/19/23 aerosol inhaler of breath or wheezing albuterol sulfate 2.5 mg/3 mL 2.5 mg inhalation Q6H PRN 04/19/23 04/19/23 (0.083 %) solution for nebulization shortness of breath or wheezing famotidine 20 mg tablet 20 mg PO DAILY PRN heart burn 04/19/23 04/19/23 mometasone-formoterol HFA 200 2 inh inhalation BID 04/19/23 04/19/23 mcg-5 mcg/actuation aerosol inhaler (Dulera) Previous Rx's Medication Instructions Recorded amoxicillin 875 mg-potassium 1 tab PO Q12H #20 tabs 04/21/23 clavulanate 125 mg tablet theophylline 300 mg 300 mg PO TID #90 tabs 04/21/23 tablet,extended release,12 hr doxycycline hyclate 100 mg tablet 100 mg PO BID 10 days #20 tabs 07/05/23 methylprednisolone 4 mg tablets in See Rx Instructions .Route 07/05/23 a dose pack (Medrol (Lobo)) .COMPLEX #21 ea Allergies Allergy/AdvReac Type Severity Reaction Status Date / Time prednisone AdvReac Severe Weakness Verified 04/19/23 16:07 vitamin C AdvReac Severe Hives Uncoded 04/19/23 16:07 Review of Systems ROS Constitutional Denies: fever or chills Ears, nose, mouth, and throat Reports: nasal congestion; Denies: throat pain Cardiovascular Denies: chest pain Respiratory Reports: shortness of breath, cough and wheezing Gastrointestinal Denies: nausea or vomiting Musculoskeletal Denies: back pain Integumentary/Breast Denies: rash Neurological Denies: headache PFSH [facility] Medical History (Updated 07/05/23 @ 17:18 by KEVIN Butler) Acute exacerbation of chronic obstructive pulmonary disease ?J44.1 - Chronic obstructive pulmonary disease with (acute) exacerbation (ICD-10) Hiatal hernia ?K44.9 - Diaphragmatic hernia without obstruction or gangrene (ICD-10) Arthritis ?M19.90 - Unspecified osteoarthritis, unspecified site (ICD-10) Tuberculosis ?A15.9 - Respiratory tuberculosis unspecified (ICD-10) Blood clot in vein ?I82.90 - Acute embolism and thrombosis of unspecified vein (ICD-10) Chronic bronchitis ?J42 - Unspecified chronic bronchitis (ICD-10) Emphysema lung ?J43.9 - Emphysema, unspecified (ICD-10) COPD exacerbation ?J44.1 - Chronic obstructive pulmonary disease with (acute) exacerbation (ICD-10) Family History (Updated 03/05/23 @ 20:18 by Chela Yañez RN) Other Family history of CHF (congestive heart failure) Family history of COPD (chronic obstructive pulmonary disease) Family history of diabetes mellitus Family history of myocardial infarction Social History Within the past year, how often did you have a drink containing alcohol: never Score interpretation: A score less than 4 is consistent with normal alcohol consumption. Smoking status: Current every day smoker Non-prescribed substance use: denies use Highest level of school completed/degree received: GED or equivalent Little interest or pleasure in doing things: not at all Feeling down, depressed, or hopeless: not at all Feel stressed/tense/nervous/anxious/difficulty sleeping: not at all Exam Narrative Exam Narrative: Gen.: Awake, alert, in no distress Head: Normocephalic, atraumatic ENT: Moist mucous membranes Respiratory: No respiratory distress, Inspiratory and expiratory wheezing Cardio: Regular rate and rhythm Extremities: Moves extremities equally Psych: Normal mood and affect Neuro: No focal neuro deficit Skin: Warm, dry, intact Constitutional Vital Signs, click to edit/add: Last Vital Signs Temp 98.3 F 07/05/23 14:52 Pulse 76 07/05/23 17:32 Resp 24 07/05/23 17:32 BP 129/72 07/05/23 17:32 Pulse Ox 97 07/05/23 17:32 O2 Del Method Room Air 07/05/23 14:52 Course Vital Signs Vital signs: Vital Signs Temperature 98.3 F 07/05/23 14:52 Pulse Rate 90 07/05/23 14:52 Respiratory Rate 34 H 07/05/23 14:52 Blood Pressure 148/75 H 07/05/23 14:52 Pulse Oximetry 98 07/05/23 14:52 Oxygen Delivery Method Room Air 07/05/23 14:52 Temperature 98.3 F 07/05/23 14:52 Pulse Rate 76 07/05/23 17:32 Respiratory Rate 24 07/05/23 17:32 Blood Pressure 129/72 07/05/23 17:32 Pulse Oximetry 97 07/05/23 17:32 Oxygen Delivery Method Room Air 07/05/23 14:52 MDM - SOB/Dyspnea MDM Narrative Medical decision making narrative: Laboratory studies reviewed and noted within normal limits, patient treated with IV Solu-Medrol, troponin and BNP are normal. Chest x-ray with no evidence of acute cardiopulmonary changes. Patient with stable vital signs in the ER, given breathing treatments. I discussed the case with Dr. Bhagat who requested the patient be admitted, he was unable to do a direct admission from home from the office and stated that the patient needed to come to the ER to be evaluated before he could be admitted. He will add antibiotic orders for the floor. After admission orders were placed, patient stated that he did not want to be admitted if he did not have an infection . He was reevaluated by attending physician and a lengthy discussion was had. The patient has stable vital signs, he is declining admission at this time and would like to pursue outpatient management. He is started on doxycycline and Medrol Dosepak as he is allergic to prednisone. Follow-up with PCP and return to the ER if symptoms change or worsen. Medical Records Attestation: I reviewed the patient's medical records. Lab Data Attestation: I reviewed the patient's lab results. Labs: Lab Results 07/05/23 07/05/23 Range/Units 14:59 15:58 WBC 7.7 (4.0-11.0) 10^3/uL RBC 4.99 (4.70-6.10) 10^6/uL Hgb 14.8 (14.0-18.0) g/dL Hct 46.1 (42.0-54.0) % MCV 92.4 (80.0-94.0) fL MCH 29.7 (25.9-34.0) pg MCHC 32.1 (29.9-35.2) g/dL RDW 13.4 (11.0-15.0) % Plt Count 315 (150-450) 10^3/uL MPV 8.5 L (9.5-13.5) fL Neut % (Auto) 66.0 (43.0-75.0) % Lymph % (Auto) 20.9 (20.5-60.0) % [place] % (Auto) 9.7 (1.7-12.0) % Eos % (Auto) 2.1 (0.9-7.0) % Baso % (Auto) 0.8 (0.2-2.0) % Neut # (Auto) 5.1 (1.4-6.5) 10^3/uL Lymph # (Auto) 1.6 (1.2-3.8) 10^3/uL [place] # (Auto) 0.8 (0.3-0.8) 10^3/uL Eos # (Auto) 0.2 (0.0-0.7) 10^3/uL Baso # (Auto) 0.1 (0.0-0.1) 10^3/uL Abs Immat Gran (auto) 0.04 H (0.00-0.03) 10^3/uL Imm/Tot Granulo (auto) 0.5 (0.0-0.5) % PT 11.5 (9.0-11.6) sec INR 1.09 Sodium 138 (136-145) mmol/L Potassium 3.8 (3.5-5.1) mmol/L Chloride 106 (98-107) mmol/L Carbon Dioxide 26.9 (21.0-32.0) mmol/L Anion Gap 8.9 BUN 11.0 (7.0-18.0) mg/dL Creatinine 1.15 (0.70-1.30) mg/dL Est GFR ( Amer) >60 (>=60) Est GFR (Non-Af Amer) >60 (>=60) BUN/Creatinine Ratio 9.6 Glucose 121 H (74-106) mg/dL Lactate 2.0 (0.4-2.0) mmol/L Calcium 8.7 (8.5-10.1) mg/dL Total Bilirubin 0.3 (0.2-1.0) mg/dL AST 12 L (15-37) U/L ALT 23 (16-63) U/L Alkaline Phosphatase 137 H (46-116) U/L Troponin I High Sens 5.4 (4.0-76.1) pg/mL NT-Pro-B Natriuret Pep 65.0 (<=900.0) pg/mL Total Protein 6.9 (6.4-8.2) g/dL Albumin 3.3 L (3.4-5.0) g/dL Globulin 3.6 g/dL Albumin/Globulin Ratio 0.9 Influenza Type A Ag Negative Influenza Type B Ag Negative SARS-CoV-2 Ag (CV2AG) Negative (NEGATIVE) Imaging Data Chest x-ray: Attestation: I have reviewed the pertinent imaging results. Radiologist's impression: ITS Impressions Chest X-Ray 07/05/23 14:59 Impression: No acute heart or lung disease identified. Electronically authenticated by: IZABEL GREENWOOD Date: 07/05/2023 15:26 ECG Data Attestation: I personally reviewed and interpreted this ECG as follows: (Normal sinus rhythm at a rate of 95, ST depression with no acute ST elevation or ectopy. EKG reviewed by attending physician.) ECG interpretation date: 07/05/23 Discharge Plan Discharge Chief Complaint: Shortness of Breath/Dyspnea Clinical Impression: Acute infective exacerbation of chronic obstructive airway disease Patient Disposition: Home, Self-Care Time of Disposition Decision: 17:18 Condition: Good Prescriptions / Home Meds: New methylprednisolone [Medrol (Lobo)] 4 mg tablets,dose pack See Rx Instructions .ROUTE .COMPLEX Qty: 21 0RF Rx Instructions: Taper as directed doxycycline hyclate 100 mg tablet 100 mg PO BID 10 Days Qty: 20 0RF No Action famotidine 20 mg tablet 20 mg PO DAILY PRN (Reason: heart burn) albuterol sulfate 2.5 mg /3 mL (0.083 %) solution for nebulization 2.5 mg inhalation Q6H PRN (Reason: shortness of breath or wheezing) Dulera 200-5 mcg/actuation HFA aerosol inhaler 2 inh inhalation BID amoxicillin-pot clavulanate 875-125 mg tablet 1 tab PO Q12H Qty: 20 0RF theophylline 300 mg tablet extended release 12 hr 300 mg PO TID Qty: 90 11RF albuterol sulfate 90 mcg/actuation HFA aerosol inhaler 2 inh INHALATION Q6H PRN (Reason: shortness of breath or wheezing) Instructions: COPD (Chronic Obstructive Pulmonary Disease) (ED) Stand Alone Forms: Portal Instructions Referrals: John Bhagat MD [Primary Care Provider] - 1 week
[2023-07-05 16:22] LABS: INR 1.09; Prothrombin Time 11.5 sec (9.0-11.6)
--- NOTE | 2023-07-05 16:23 | PC.NURSE ---
in to check on patient, at bedside very verbally aggressive with staff -- explained to and pt why pt is receiving an IV steroid. pt now asking for water for pt stating we asked for that a long time ago! Apologized to pt and and told them this RN will check with Dr garnett.
[2023-07-05 16:34] LABS: Alanine Aminotransferase 23 U/L (16-63); Albumin Globulin Ratio 0.9; Albumin Level 3.3 g/dL (3.4-5.0); Alkaline Phosphatase 137 U/L (46-116); Anion Gap 8.9; Aspartate Amino Transferase 12 U/L (15-37); BUN Creatinine Ratio 9.6; Bilirubin Total 0.3 mg/dL (0.2-1.0); Calcium 8.7 mg/dL (8.5-10.1); Carbon Dioxide 26.9 mmol/L (21.0-32.0); Chloride 106 mmol/L (98-107); Estimated GFR (African America >60 (>=60); Estimated GFR (Non-African Ame >60 (>=60); Globulin 3.6 g/dL; Glucose 121 mg/dL (74-106); Potassium 3.8 mmol/L (3.5-5.1); Sodium 138 mmol/L (136-145); Total Protein 6.9 g/dL (6.4-8.2); Troponin I High Sensitivity 5.4 pg/mL (4.0-76.1)
--- NOTE | 2023-07-05 17:37 | PC.NURSE ---
expressed to pt that admission is in the works and pt states if there's nothing wrong with me, why would I spend money to stay here . informed dr cueto and KEVIN Butler.
--- NOTE | 2023-07-05 17:51 | PC.NURSE ---
dr cueto at bedside
== END 2023-07-05 18:09 | disposition home or self-care (01) ==
PROVIDERS: Physician Assistant; Emergency Provider Emergency Medicine Emergency Medical Services; PCP Family Medicine
DX: J43.9 Emphysema, unspecified (principal); Z79.899 Other long term (current) drug therapy; K44.9 Diaphragmatic hernia without obstruction or gangrene; M19.90 Unspecified osteoarthritis, unspecified site; F17.210 Nicotine dependence, cigarettes, uncomplicated; Z20.822 Contact with and (suspected) exposure to COVID-19
CPT/HCPCS: 36415; 71046; 80053; 83605; 83880; 84484; 85025; 85610; 87635; 87804; 87811; 94640; 96374; 99285; J2930

== ENCOUNTER 2024-03-22 14:26 | Inpatient (IN) | payer MEDICARE, SELFPAY ==
[2024-03-22] VITALS (24 sets, daily range): BP systolic 120–141; BP diastolic 69–78; PULSE 63–99; TEMP 36.7–36.8; O2SAT 92–100; BMI 22.1; BMI 26.6
--- OUTSIDE RECORDS SUMMARY | 2024-03-22 14:34 | XMS_ITS | CCD ---
Author Organization [facility] Team Providers Care Supervisor Receiving And Processing Name Role Phone PHYSICIAN, DEFAULT Unavailable Unavailable PHYSICIAN, DEFAULT Unavailable Unavailable DEZ BHAGAT Unavailable Unavailable Dez Bhagat MD Primary Care Provider [phone] MICHAEL ., DR GARCES Attending Unavailable HOY ., DR GARCES Admitting Unavailable HOY ., DR GARCES Primary Care Unavailable HOY ., DR GARCES Consulting Unavailable ZIEBER, DR CORRINE Bull Consulting Unavailable HOY ., DR GARCES Attending Unavailable HOY ., DR GARCES Admitting Unavailable HOY ., DR GARCES Primary Care Unavailable HOY ., DR GARCES Consulting Unavailable MAITE FRAZIER Consulting Unavailable SAMANTHA BUTLER Admitting Unavailable SAMANTHA BUTLER Consulting Unavailable SAMANTHA BUTLER Attending Unavailable SEVENY ., DR GARCES Primary Care Unavailable Dez Bhagat MD Primary Care Provider [phone] TALA II, KRANTHI B Attending Unavailable HOY, DEZ M Primary Care Unavailable TALA II, KRANTHI B Referring Unavailable HOY, DEZ M Primary Care Unavailable TALA II, KRANTHI B Referring Unavailable TALA II, KRANTHI B Attending Unavailable HOY, DEZ M Primary Care Unavailable TALA II, KRANTHI B Referring Unavailable TALA II, KRANTHI B Attending Unavailable HOY, DEZ M Primary Care Unavailable TONNY SINGH Attending Unavailable LOPZE MUNSON Attending Unavailable HOY, DEZ M Primary Care Unavailable HOY, DEZ M Attending Unavailable HOY, DEZ M Referring Unavailable HOY, DEZ M Primary Care Unavailable HOY, DEZ M Attending Unavailable HOY, DEZ M Referring Unavailable HOY, DEZ M Primary Care Unavailable HOY, DEZ M Attending Unavailable HOY, DEZ M Referring Unavailable HOY, DEZ M Primary Care Unavailable LOPEZ MUNSON Referring Unavailable HOY, DEZ M Primary Care Unavailable TALA II, KRANTHI B Attending Unavailable DEZ BHAGAT M Primary Care Unavailable TALA IIKRANTHI B Attending Unavailable TALA IIERIKAOL B Referring Unavailable HOY, DEZ M Primary Care Unavailable HOY, DEZ M Attending Unavailable HOY, DEZ M Referring Unavailable HOY, DEZ M Primary Care Unavailable HOY, DEZ M Primary Care Unavailable MARISA OVERTON Referring Unavailable HOGINGER FarrLAS M Primary Care Unavailable PAUL TAYLOR Attending Unavailable Allergies Allergy Classification Reported Allergen(s) Allergy Type Date of Onset Reaction(s) Facility (13 sources) Ascorbic Acid Drug Allergy 8 [facility] (3 sources) predniSONE Drug Allergy 2 [facility] (1 source) Ascorbic Acid Drug Allergy 3 [facility] (1 source) predniSONE Drug Allergy 6 [facility] (10 sources) Ketorolac Propensity to adverse reactions to drug 4 Nausea and Vomiting [facility] (10 sources) Prednisone Propensity to adverse reactions to drug 8 [facility] Medications Current Medications Medication Drug Class(es) Dates Sig (Normalized) Sig (Original) albuterol 0.83 mg/ml inhalation solution (20 sources) beta2-Adrenergic Agonist take 2.5 mg by inhalation every six hours as needed albuterol (2.5 MG/3ML) 0.083% inhalation solution Take 3 mL by nebulization every 6 hours as needed for Shortness of Breath. Active take 1 puff(s) by in halation every six hours as needed albuterol 108 (90 Base) MCG/ACT Aero Yakelin n inhaler Inhale 1 puff every 6 hours as needed for Shortness of Breath. Active take 2.5 mg by inhal ation every six hours as needed albuterol (2.5 MG/3ML) 0.083% inhalation solution Take 2.5 mg by nebulization every 6 hours as needed for Shortness of Breath. 0 Active amoxicillin 875 mg / clavulanate 125 mg oral tablet (7 sources) Penicillin-class Antibacterial Start: 08-15-2022 take 1 tablet by mouth every twelve hours Amoxicillin-clavulanate 875-125 MG tablet Take 1 tablet by mouth every 12 hours. 08/15/2022 Active cefdinir 300 mg oral capsule (7 sources) Cephalosporin Antibacterial Start: 08-01-2022 take 2 capsules by mouth once daily Cefdinir (OMNICEF) 300 MG capsule Take 2 capsules by mouth daily. 08/01/2022 Active 60 actuat formoterol fumarate 0.005 mg/actuat / mometasone furoate 0.2 mg/actuat metered dose inhaler (13 sources) Corticosteroid, beta2-Adrenergic Agonist take 2 puff(s) by inhalation every twelve hours mometasone Furo-Formoterol Fum 200-5 MCG/puff Aerosol Inhale 2 puffs every 12 hours. Active levoFLOXacin 500 mg oral tablet (10 sources) Quinolone Antimicrobial Start: 12-07-2023 End: 12-14-2023 take 1 tablet by mouth once daily levoFLOXacin 500 MG tablet Take 1 tablet by mouth daily for 7 days. 7 tablet 12/07/2023 12/14/2023 Active Start: 06-17-2022 End: 12-07-2023 take 1 tablet by mouth once daily levoFLOXacin 750 MG tablet Take 1 tablet by mouth daily. 06/17/2022 12/07/2023 Discontinued (Therapy completed) Start: 08-02-2021 End: 08-06-2021 take 1 tablet [...] premix IVPB predniSONE 10 mg oral tablet (8 sources) Start: 08-15-2022 take 4 tablets by [...] 1/2 (ONE-HALF) ONCE DAILY FOR 3 DAYS 08/15/2022 Active Start: 08-02-2021 End: 08-13-2021 take [...] theophylline 300 mg extended release oral tablet (10 sources) Methylxanthine Start: 08-16-2022 take 1 tablet by mouth twice daily theophylline 300 MG Tab SR 12 HR TAKE 1 TABLET BY MOUTH TWICE DAILY GIVE ON AN EMPTY STOMACH. DO NOT CRUSH OR CHEW 08/16/2022 Active Completed/Discontinued Medications Medication Drug Class(es) [...] / ipratropium bromide 0.167 mg/ml inhalation solution (8 sources) Anticholinergic, beta2-Adrenergic Agonist Start: 08-23-2023 End: 08-23-2023 3 mL, Nebulization, ONCE, 1 dose, On 08/23/23 at 1745 Start: 08-02-2021 End: 08-02-2021 ipratropium-albuterol (DUONE B) 0.5-2.5 (3) MG/3ML nebulizer [...] 40 mg, Subcutaneous, DAILY, First dose on Mon08/01/21 at 0900, Until Discontinued, Indications: DVT/PE prophylaxis GI cocktail: alum/mag hydrox-simethicone(3 0ml)+lidocaine 2%(10ml) oral suspension 40 mL (1 source) Start: 12-21-2023 End: 12-21-2023 take 1 dose by mouth once 40 mL, Oral, ONCE, 1 dose, On Mon12/21/23 at 0145 iohexol (OMNIPAQUE) 350 MG/ML injection 75 mL (3 sources) Start: 08-23-2023 End: 08-23-2023 75 mL, Intravenous, ONCE, 1 dose, On Mon08/23/23 at 1900, Extravasation Risk, Radiology Procedure Start: 05-11-2023 End: 05-11-2023 iohexol (OMNIPAQUE) 350 MG/M L injection 75 mL Start: 07-31-2021 End: 07-31-2021 [...] of 0.5 gm/hour. methylPREDNISolone 40 mg injection (3 sources) Corticosteroid Start: 12-07-2023 End: 12-07-2023 125 mg, Intravenous, ONCE, 1 dose, On Mon12/07/23 at 0115 Start: 08-23-2023 End: 08-23-2023 125 mg, Intravenous, ONCE, 1 dose, On Mon08/23/23 at 1715 Start: 08-01-2021 End: 08-02-2021 methylPREDNISolone sodium gloria ccinate (SOLU-MEDROL) injection 80 mg nitroglycerin 0.4 mg/actuat mucosal spray (1 source) Nitrate Vasodilator Start: 01-23-2024 End: 01-23-2024 take 1 dose under the tongue once 1 spray, Sublingual, ONCE DIRECTED, 1 dose, Starting on Mon01/23/24 at 0900, Until Mon01/23/24 at 0942, per 2 ml ondansetron 2 mg/ml injection (4 sources) Serotonin-3 Receptor Antagonist Start: 12-21-2023 End: 12-21-2023 4 mg, Intravenous, ONCE, 1 dose, On Mon12/21/23 at 0145 Start: 07-31-2021 End: 08-02-2021 take 4 mg intravenously every four hours as needed 4 mg, Intravenous, EVERY 4 HOURS NEEDED, Starting on 07/31/21 at 1533, Until 08/02/21 at 1844, Nausea / Vomiting Start: 07-31-2021 End: 07-31-2021 ondansetron 4mg/2ml (ZOFRAN) injection 4 mg Start: 07-31-2021 End: 07-31-2021 ondansetron 4mg/2ml (ZOFRAN) injection 4 mg pantoprazole 40 mg delayed release oral tablet (2 sources) Proton Pump Inhibitor Start: 12-21-2023 End: 12-21-2023 40 mg, Intravenous, ONCE, 1 dose, On Kya 12/21/23 at 0145, Dilute each 40 mg vial with 10 mL of NS. All bolus doses, whether 40 mg or 80 mg, should be administered over at least two minutes., Indications: Inpt Stress Ulcer Prophylaxis Start: 08-01-2021 End: 08-02-2021 take 40 mg by mouth once daily 40 mg, Oral, DAILY, Fir st dose on 08/01/21 at 0900, Until Discontinued [...] If phospate <2.5, give 30mmol Extravasation Risk regadenoson (LEXISCAN) injection 0.4 mg (1 source) Start: 10-31-2023 End: 10-31-2023 take 0.4 mg intravenously once 0.4 mg, Intravenous, ONCE, 1 dose, On 10/31/23 at 0715, Give rapid iv push over 10 seconds, Radiology Procedure 1000 ml sodium chloride 9 mg/ml injection (7 sources) Start: 01-23-2024 End: 01-23-2024 1,000 mL, Intravenous, ONCE, 1 dose, On Tu01/23/24 at 0900 Start: 08-23-2023 End: 08-23-2023 75 mL, Intravenous, ONCE, 1 dose, On Mon08/23/23 at 1900, Radiology Procedure Start: 08-23-2023 End: 08-23-2023 Intravenous, at 125 mL/hr, C ONTINUOUS, Starting on Mon08/23/23 at 1715, Until Mon08/23/23 at 2237 Start: 05-11-2023 End: 05-11-2023 Sodium chloride 0.9% IV solu tion 75 mL Start: 07-31-2021 End: 08-02-2021 Intravenous, at 75 mL/hr, CO NTINUOUS, Starting on 07/31/21 at 1545, Until 08/02/21 at 1844 Start: 07-31-2021 End: 07-31-2021 sodium chloride 0.9% IV solu tion 75 mL Start: 07-31-2021 End: 07-31-2021 sodium chloride 0.9% IV solu tion 500 mL Technetium tc 99m sestamibi (SESTAMIBI) 5-30 millicurie (1 source) Start: 10-31-2023 End: 10-31-2023 5-30 millicurie, Intravenous , 2 TIMES DAILY NEEDED, 2 doses, Starting on Mon10/31/23 at 0640, Until Mon10/31/23 at 0708 Problems Active Problems Problem Classification Problem Date Documented Date Episodic/Chronic Abdominal pain (1 source) Right upper quadrant pain; Translations: [Right upper quadrant pain] Episodic Cardiac dysrhythmias (8 sources) Atrial paroxysmal tachycardia; Translations: [PAT (paroxysmal atrial tachycardia)] Onset: 01-23-2024 01-23-2024 Chronic Cardiac dysrhythmias (4 sources) Tachycardia, unspecified; Translations: [Palpitations] Onset: 07-21-2022 01-23-2024 Episodic Chronic obstructive pulmonary disease and bronchiectasis (20 sources) Acute exacerbation of chronic obstructive airways disease; Translations: [Chronic obstructive pulmonary disease with (acute) exacerbation] Onset: 08-01-2021 Chronic Conditions associated with dizziness or vertigo (4 sources) Dizziness and giddiness; Translations: [Dizziness and giddiness] Onset: 01-23-2024 01-23-2024 Episodic Esophageal disorders (1 source) Gastro-esophageal reflux disease without esophagitis; Translations: [GERD WITHOUT ESOPHAGITIS] Onset: 07-21-2022 Chronic Nonspecific chest pain (6 sources) Chest pain; Translations: [Chest pain, unspecified] Onset: 12-21-2023 12-21-2023 Episodic Nutritional deficiencies (14 sources) Vitamin D deficiency; Translations: [Vitamin D deficiency, unspecified] Onset: 08-01-2021 Chronic Other lower respiratory disease (4 sources) Dyspnea; Translations: [Dyspnea, unspecified] 10-31-2023 Episodic Other lower respiratory disease (4 sources) Shortness of breath; Translations: [Shortness of breath] Onset: 12-07-2023 Episodic Other nutritional; endocrine; and metabolic disorders (14 sources) Hypoalbuminemia; Translations: [Other disorders of plasma-protein metabolism, not elsewhere classified] Onset: 08-01-2021 Chronic Other skin disorders (2 sources) Mass of neck; Translations: [Localized swelling, mass and lump, neck] 04-10-2023 Episodic Pneumonia (except that caused by tuberculosis or sexually transmitted disease) (1 source) Pneumonia (except that caused by tuberculosis or sexually transmitted disease); Translations: [PNEUMONIA D/T CORONAVIRUS DIS 2019] Onset: 08-18-2022 Skin and subcutaneous tissue infections (3 sources) Cellulitis of left upper limb; Translations: [Cellulitis of left upper limb] Onset: 12-07-2023 12-07-2023 Episodic Substance-related disorders (1 source) Nicotine dependence, cigarettes, uncomplicated; Translations: [NICOTINE DEPEND CIGARETTES UNCOMP] Onset: 07-21-2022 Chronic Syncope (5 sources) Syncope and collapse; Translations: [Syncope and collapse] Onset: 01-23-2024 01-23-2024 Episodic Unclassified (1 source) CONTACT W/AND (SUSP) EXPOS COVID-19; Translations: [CONTACT W/AND (SUSP) EXPOS COVID-19] Onset: 07-21-2022 Unclassified (1 source) Other supraventricular tachycardia; Translations: [Other supraventricular tachycardia] Onset: 01-23-2024 Unclassified (1 source) Other ventricular tachycardia; Translations: [Other ventricular tachycardia] Onset: 01-23-2024 Viral infection (3 sources) COVID-19; Translations: [COVID-19] Onset: 08-11-2022 Past or Other Problems Problem Classification Problem Date Documented Date Episodic/Chronic Acute bronchitis (1 source) Acute bronchitis due to other specified organisms; Translations: [ACUTE BRONCHITIS D/T SPEC ORGANISMS] Onset: 07-21-2022 Episodic Deficiency and other anemia [...] Translations: [HYPO-OSMOLALITY AND HYPONATREMIA] Onset: 07-21-2022 Episodic Other aftercare (1 source) Other jail (current) drug therapy; Translations: [OTH [employer]ER CURRENT DRUG THERAPY] Onset: 08-18-2022 Episodic Other lower respiratory disease (1 source) Acute respiratory distress; Translations: [ACUTE RESPIRATORY DISTRESS] Onset: 08-18-2022 Episodic Other lower respiratory disease (6 sources) Dyspnea, unspecified; Translations: [DYSPNEA UNSPECIFIED] Onset: 06-15-2022 Episodic Other screening for suspected conditions (not mental disorders or infectious disease) (1 source) Other specified abnormal findings of blood chemistry; Translations: [OTH SPEC ABNORMAL FINDINGS BLD CHEM] Onset: 08-18-2022 Episodic Other skin disorders (2 sources) Localized swelling, mass and lump, neck; Translations: [Localized swelling, mass and lump, neck] Onset: 05-11-2023 Episodic Pneumonia (except that caused by tuberculosis or sexually transmitted disease) (14 sources) Pneumonia; Translations: [Pneumonia, unspecified organism] Onset: 07-31-2021 Episodic Residual codes; unclassified (14 sources) Tobacco user; Translations: [Tobacco use] Onset: 08-01-2021 Episodic Unclassified (2 sources) Onset: 08-19-2022 08-19-2022 Unclassified (1 source) Other supraventricular tachycardia; Translations: [Other supraventricular tachycardia] Onset: 01-23-2024 Unclassified (1 source) Other ventricular tachycardia; Translations: [Other ventricular tachycardia] Onset: 01-23-2024 Results Test Name Value Interpretation Reference Range Facility Cardiac echo study Procedure on 01-23-2024 APPROVED REPORT Conclusion Mild concentric left ventricular hypertrophy. Mild diastolic dysfunction is present (impaired relaxation pattern). The left ventricular systolic function is normal. The left ventricular ejection fraction is within the normal range. There is normal LV segmental wall motion. LVEF is 60-65%. The right ventricle is normal size. The right ventricular systolic function is normal. Aortic valve is trileaflet. Aortic valve leaflets are mildly thickened. Normal cusp separation. Mild mitral annular calcification. Trace to mild tricuspid regurgitation. No pulmonary hypertension. Left Ventricle The left ventricle is normal size. The left ventricular systolic function is normal. The left ventricular ejection fraction is within the normal range. Mild concentric left ventricular hypertrophy. There is normal LV segmental wall motion. Mild diastolic dysfunction is present (impaired relaxation pattern). There is no ventricular septal defect visualized. No left ventricle thrombus noted on this study. LVEF is 60-65%. Right Ventricle The right ventricle is normal size. The right ventricular systolic function is normal. There is normal right ventricular wall thickness. Moderator band is seen in the right ventricle. Atria The left atrium size is normal. The right atrium size is normal. The interatrial septum is intact with no evidence for an atrial septal defect. Aortic Valve Aortic valve is trileaflet. Aortic valve leaflets are mildly thickened. Normal cusp separation. There is no aortic valvular stenosis. No aortic regurgitation is present. There is no aortic valvular vegetation. Mitral Valve Mild mitral annular calcification. No evidence of mitral valve stenosis. There is no mitral valve regurgitation noted. There is no evidence of mitral valve vegetations. There is no evidence of mitral valve prolapse. Tricuspid Valve The tricuspid valve is normal in structure. There is no tricuspid valve stenosis. Trace to mild tricuspid regurgitation. No pulmonary hypertension. There is no tricuspid valve vegetations. Pulmonic Valve Pulmonic valve is not well visualized. Not appreciated. Not appreciated. Cannot exclude pulmonic valve vegetation. Great Vessels The aortic root is normal in size. The pulmonary artery is normal. The ascending aorta is normal in size. IVC is normal in size and collapses >50% with inspiration. Pericardium There is no pericardial effusion. There is no pleural effusion. EXAM: Comprehensive 2D, Doppler, and color-flow Echocardiogram Imaging system used: GE 2D Dimensions IVSd 1.1 cm M: 0.6-1.0 LVEF (Visual) 60.91 % PWd 1.1 cm M: 0.6 - 1.0 LVEF (Deshpande's) 61.25 % M: 52 - 72 LVDd 4.2 cm M: 4.2 - 5.8 EF AP4-a2DQ 64.72 % LVDs 2.85 cm M: 2.5 - 4.0 EF AP2-a2DQ 59.89 % Aortic Root 3.24 cm M: 3.1 - 3.7 EF BP-a2DQ 61.25 % Aortic Root Index 1.5 cm/m2 LVESV 35 mL Ascending Aorta 2.89 cm M: 2.6 - 3.4 LVEDV 89.87 mL M: 62 - 150 Ascending Aorta Index: 1.4 cm/m2 LV Volume Index 42.80 mL/m2 M: 34 - 74 Left Atrium 3.04 cm M: 3.0 - 4.0 LA Volume 24.3 mL LVOT 1.97 cm (M/F) 1.5-2.5 LA Volume Index 11.57 mL/m2 (M/F) 16-34 TAPSE 2.0 >1.7 cm RV Major 7.51 cm IVC 1.5 cm RVIDd 2.56 cm (M/F) 2.5-4.1 Right Atrium 3.6 cm (M/F) 2.9-4.5 LV Diastology E/A Ratio 0.7 Septal E' 0.06 (>=.07 m/s) LAT E' 0.08 (>=.10 m/s) E/LAT E' Ratio 6.37 (<=14) E/E AVG 7.25 Septal E/E' 8.40 Aortic Valve LVOT Max 0.90 (0.7-1.1 m/s) LVOT VTI 19.32 cm LVOT Peak GR 3.29 mmHg LVOT Mean GR 1.75 mmHg AV DI 0.61 (>0.25) AoV Peak Tim. 1.37 (0.5-1.3 m/s) AV Vmean 0.95 m/s AO Peak GR. 6.25 mmHg AO Mean GR. 4.09 (<5 mmHg) AO VTI 31.9 (18-25 cm) MELISSA (VTI) 1.85 (2.5-4.5 cm2) Mitral Valve MV E Max Tim. 0.5 (0.4-1.3 m/s) MV A Velocity 0.75 (0.4-1.3 m/s) E/A Ratio 0.71 MV PHT 79.63 ms MVA PHT 2.76 cm2 MV Dec Owsley 197.45 cm/s2 MV Decel. Time 268.66 (160-240 ms) CARDIOLOGY Kranthi Edgar II, MD - 01/23/2024 APPROVED REPORT Conclusion Mild concentric left ventricular hypertrophy. Mild diastolic dysfunction is present (impaired relaxation pattern). The left ventricular systolic function is normal. The left ventricular ejection fraction is within the normal range. There is normal LV segmental wall motion. LVEF is 60-65%. The right ventricle is normal size. The right ventricular systolic function is normal. Aortic valve is trileaflet. Aortic valve leaflets are mildly thickened. Normal cusp separation. Mild mitral annular calcification. Trace to mild tricuspid regurgitation. No pulmonary hypertension. Left Ventricle The left ventricle is normal size. The left ventricular systolic function is normal. The left ventricular ejection fraction is within the normal range. Mild concentric left ventricular hypertrophy. There is normal LV segmental wall motion. Mild diastolic dysfunction is present (impaired relaxation pattern). There is no ventricular septal defect visualized. No left ventricle thrombus noted on this study. LVEF is 60-65%. Right Ventricle The right ventricle is normal size. The right ventricular systolic function is normal. There is normal right ventricular wall thickness. Moderator band is seen in the right ventricle. Atria The left atrium size is normal. The right atrium size is normal. The interatrial septum is intact with no evidence for an atrial septal defect. Aortic Valve Aortic valve is trileaflet. Aortic valve leaflets are mildly thickened. Normal cusp separation. There is no aortic valvular stenosis. No aortic regurgitation is present. There is no aortic valvular vegetation. Mitral Valve Mild mitral annular calcification. No evidence of mitral valve stenosis. There is no mitral valve regurgitation noted. There is no evidence of mitral valve vegetations. There is no evidence of mitral valve prolapse. Tricuspid Valve The tricuspid valve is normal in structure. There is no tricuspid valve stenosis. Trace to mild tricuspid regurgitation. No pulmonary hypertension. There is no tricuspid valve vegetations. Pulmonic Valve Pulmonic valve is not well visualized. Not appreciated. Not appreciated. Cannot exclude pulmonic valve vegetation. Great Vessels The aortic root is normal in size. The pulmonary artery is normal. The ascending aorta is normal in size. IVC is normal in size and collapses >50% with inspiration. Pericardium There is no pericardial effusion. There is no pleural effusion. EXAM: Comprehensive 2D, Doppler, and color-flow Echocardiogram Imaging system used: Inogen 2D Dimensions IVSd 1.1 cm M: 0.6-1.0LVEF (Visual)60.91 % PWd 1.1 cm M: 0.6 - 1.0LVEF (Deshpande's)61.25 % M: 52 - 72 LVDd 4.2 cm M: 4.2 - 5.8EF AP4-a2DQ64.72 % LVDs 2.85 cm M: 2.5 - 4.0EF AP2-a2DQ59.89 % Aortic Root 3.24 cm M: 3.1 - 3.7EF BP-a2DQ61.25 % Aortic Root Index1.5 cm/o5PVSNW20 mL Ascending Aorta 2.89 cm M: 2.6 - 3.2CQLEL61.87 mL M: 62 - 150 Ascending Aorta Index: 1.4 cm/m2LV Volume Index42.80 mL/m2 M: 34 - 74 Left Atrium 3.04 cm M: 3.0 - 4.0LA Berytr81.3 mL LVOT1.97 cm (M/F) 1.5-2.5LA Volume Index11.57 mL/m2 (M/F) 16-34 TAPSE 2.0 >1.7 cmRV Major 7.51 cm IVC1.5 cmRVIDd2.56 cm (M/F) 2.5-4.1 Right Atrium 3.6 cm (M/F) 2.9-4.5 LV Diastology E/A Ratio 0.7Septal E'0.06 (>=.07 m/s) LAT E'0.08 (>=.10 m/s)E/LAT E' Ratio6.37 (<=14) E/E AVG 7.25Septal E/E'8.40 Aortic Valve LVOT Max0.90 (0.7-1.1 m/s)LVOT VTI19.32 cm LVOT Peak GR3.29 mmHgLVOT Mean GR1.75 mmHg AV DI0.61 (>0.25)AoV Peak Tim.1.37 (0.5-1.3 m/s) AV Vmean 0.95 m/Moris Peak GR.6.25 mmHg AO Mean GR.4.09 (<5 mmHg)AO VTI31.9 (18-25 cm) MELISSA (VTI)1.85 (2.5-4.5 cm2) Mitral Valve MV E Max Tim.0.5 (0.4-1.3 m/s)MV A Velocity0.75 (0.4-1.3 m/s) E/A Ratio0.71MV PHT79.63 ms MVA PHT2.76 cm2MV Dec Owsley 197.45 cm/s2 MV Decel. Btzx890.66 (160-240 ms) [facility] Radiology Study observation (narrative) [facility]Con 12-21-2023 ABSOLUTE BAS 0.1 10*3/uL Normal 0.0-0.2 [facility] Comment on above: Performed By: #### C [id number] #### Testing performed at [address] [address] ABSOLUTE EOS 0.4 10*3/uL Normal 0.0-0.7 [facility] Comment on above: Performed By: #### C [id number] #### Testing performed at [address] [address] ABSOLUTE NEUTROPHIL COUNT 5.4 10*3/uL Normal 1.4-6.5 [facility] Comment on above: Performed By: #### C [id number] #### Testing performed at [address] [address] Basophils/100 WBC (Bld) 1.3 % Normal 0.0-2.0 [facility] Comment on above: Performed By: #### C [id number] #### Testing performed at [address] [address] DTYPE AUTO DIFF Normal [facility] Comment on above: Performed By: #### C HEM7F ACBC #### Testing performed at [address] [address] Eosinophils/100 WBC (Bld) 4.0 % Normal 0.0-11.0 [facility] Comment on above: Performed By: #### C HEM7F ACBC #### Testing performed at [address] [address] Erythrocyte distribution width (RBC) [Ratio] 15.4 % High 11.5-14.5 [facility] Comment on above: Performed By: #### C HEM7F ACBC #### Testing performed at [address] [address] Hematocrit (Bld) [Volume fraction] 44.7 % Normal 42.0-52.0 [facility] Comment on above: Performed By: #### C HEM7F ACBC #### Testing performed at [address] [address] Hemoglobin (Bld) [Mass/Vol] 15.0 g/dL Normal 14.0-18.0 [facility] Comment on above: Performed By: #### C HEM7F ACBC #### Testing performed at [address] [address] Lymphocytes (Bld) [#/Vol] 2.2 10*3/uL Normal 1.2-3.4 [facility] Comment on above: Performed By: #### C HEM7F ACBC #### Testing performed at [address] [address] Lymphocytes/100 WBC (Bld) 25.1 % Normal 20.0-55.0 [facility] Comment on above: Performed By: #### C HEM7F ACBC #### Testing performed at [address] [address] MCH (RBC) [Entitic mass] 30.4 pg Normal 26.0-35.0 [facility] Comment on above: Performed By: #### C HEM7F ACBC #### Testing performed [address] [place] [address] MCHC (RBC) [Mass/Vol] 33.6 g/dL Normal 27.0-37.0 [facility] Comment on above: Performed By: #### C HEM7F ACBC #### Testing performed at [address] [address] MCV (RBC) [Entitic vol] 90.6 fL Normal 80.0-100.0 [facility] Comment on above: Performed By: #### C HEM7F, ACBC #### Testing performed at [address] [address] Monocytes (Bld) [#/Vol] 0.9 10*3/uL High 0.0-0.7 [facility] Comment on above: Performed By: #### C HEM7F, ACBC #### Testing performed at [address] [address] Monocytes/100 WBC (Bld) 9.5 % Normal 0.0-10.0 [facility] Comment on above: Performed By: #### C HEM7F ACBC #### Testing performed at [address] [address] Neutrophils/100 WBC (Bld) 60.1 % Normal 37.0-75.0 [facility] Comment on above: Performed By: #### C HEM7F, ACBC #### Testing performed at [address] [address] Platelet mean volume (Bld) [Entitic vol] 6.9 fL Low 7.4-11.0 [facility] Comment on above: Performed By: #### C HEM7F, ACBC #### Testing performed at [address] [address] Platelets (Bld) [#/Vol] 434 10*3/uL High 130-400 [facility] Comment on above: Performed By: #### C HEM7F, ACBC #### Testing performed at [address] [place] [address] RBC (Bld) [#/Vol] 4.93 10*6/uL Normal 4.0-6.1 [facility] Comment on above: Performed By: #### C HEM7F, ACBC #### Testing performed at [facility] [address] [place] [address] WBC (Bld) [#/Vol] 8.9 10*3/uL Normal 3.6-11.0 [facility] Comment on above: Performed By: #### C HEM7F, ACBC #### Testing performed at [address] [place] [address] CBC, EDIF, PLATELETon 2023 ABSOLUTE BASOPHIL COUNT 0.1 10*3/uL 0.0 - 0.2 10*3/uL [facility] Basophils/100 WBC (Bld) 1.3 % 0.0 - 2.0 % [facility] Differential cell count method Nom (Bld) AUTO DIFF % [facility] Eosinophils (Bld) [#/Vol] 0.4 10*3/uL 0.0 - 0.7 10*3/uL [facility] Eosinophils/100 WBC (Bld) 4.0 % 0.0 - 11.0 % [facility] Erythrocyte distribution width (RBC) [Ratio] 15.4 % High 11.5 - 14.5 % [facility] Hematocrit (Bld) [Volume fraction] 44.7 % 42.0 - 52.0 % [facility] Hemoglobin (Bld) [Mass/Vol] 15.0 g/dL [facility] Interpretation and review of laboratory results Abnormal [facility] Lymphocytes (Bld) [#/Vol] 2.2 10*3/uL 1.2 - 3.4 10*3/uL [facility] Lymphocytes/100 WBC (Bld) 25.1 % 20.0 - 55.0 % [facility] MCH (RBC) [Entitic mass] 30.4 pg 26.0 - 35.0 PG [facility] MCHC (RBC) [Mass/Vol] 33.6 g/dL [facility] MCV (RBC) [Entitic vol] 90.6 fL [facility] Monocytes (Bld) [#/Vol] 0.9 10*3/uL High 0.0 - 0.7 10*3/uL [facility] Monocytes/100 WBC (Bld) 9.5 % 0.0 - 10.0 % [facility] Neutrophils (Bld) [#/Vol] 5.4 10*3/uL 1.4 - 6.5 10*3/uL [facility] Neutrophils/100 WBC (Bld) 60.1 % 37.0 - 75.0 % [facility] Platelet mean volume (Bld) [Entitic vol] 6.9 fL Low [facility] Platelets (Bld) [#/Vol] 434 10*3/uL High 130 - 400 10*3/uL [facility] RBC (Bld) [#/Vol] 4.93 10*6/uL 4.0 - 6.1 10*6/uL [facility] WBC (Bld) [#/Vol] 8.9 10*3/uL 3.6 - 11.0 10*3/uL [facility] CHEM 7 FASTINGon 12-21-2023 Chloride [Moles/Vol] 108 mmol/L High 98-107 [facility] Comment on above: Result Comment: [place] domínguez note: Triglyceride levels of 600mg/dL or higher may positively bias chloride results by approximately 2.1 mmol Performed By: #### C HEM7F, ACBC #### Testing performed at [address] [address] CO2 [Moles/Vol] 26 mmol/L Normal 22-30 [facility] Comment on above: Performed By: #### C HEM7F, ACBC #### Testing performed at [address] [address] Creatinine [Mass/Vol] 1.10 mg/dL Normal 0.70-1.20 [facility] Comment on above: Performed By: #### C HEM7F, ACBC #### Testing performed at [address] [place] [address] EST. GFR, 84 ml/min/1.73sq.m [facility] Comment on above: Performed By: #### C HEM7F, ACBC #### Testing performed at [address] [place] [address] EST. GFR,Non 70 ml/min/1.73sq.m [facility] Comment on above: Performed By: #### C HEM7F, ACBC #### Testing performed at [address] [address] GFR Information Average GFR for 70+ years old = 75. Normal [facility] Comment on above: Result Comment: [employer]aiah Kidney disease, GFR = <60. Kidney failure, GFR = <15. The GFR estimate is not adjusted for extreme body surface area or acute process, nor has it been validated for women or ethnic groups other than and . Performed By: #### C HEM7F, ACBC #### Testing performed at [address] [address] Glucose [Mass/Vol] 90 mg/dL Normal 70-100 [facility] Comment on above: Result Comment: NORMAL <100 mg/dL PREDIABETES 101-126 mg/dL DIABETES 126 mg/dL or higher Performed By: #### C HEM7F, ACBC #### Testing performed at [address] [address] Potassium [Moles/Vol] 4.2 mmol/L Normal 3.5-5.1 [facility] Comment on above: Performed By: #### C HEM7F, ACBC #### Testing performed at [address] [address] Sodium [Moles/Vol] 139 mmol/L Normal 137-145 [facility] Comment on above: Performed By: #### C HEM7F, ACBC #### Testing performed at [address] [address] Urea nitrogen [Mass/Vol] 15 mg/dL Normal 7-20 [facility] Comment on above: Performed By: #### C HEM7F, ACBC #### Testing performed at [address] [address] CHEM 7 (LYTES,BUN,CREA,GLUC) on 12-21-2023 Chloride [Moles/Vol] 108 mmol/L [facility] Comment on above: Please note: Triglyc eride levels of 600mg/dL or higher may positively bias chloride results by approximately 2.1 mmol CO2 [Moles/Vol] 26 mmol/L [facility] Creatinine [Mass/Vol] 1.10 mg/dL [facility] GFR COMMENT Average GFR for 70+ years old = 75. [facility] Comment on above: Chronic Kidney disea se, GFR = <60. Kidney failure, GFR = <15. The GFR estimate is not adjusted for extreme body surface area or acute process, nor has it been validated for women or ethnic groups other than and . GFR/1.73 sq M.predicted among blacks MDRD (S/P/Bld) [Vol rate/Area] 84 mL/min/{1.73_m2} ml/min/1.73sq .m [facility] GFR/1.73 sq M.predicted among non-blacks MDRD (S/P/Bld) [Vol rate/Area] 70 mL/min/{1.73_m2} ml/min/1.73sq .m [facility] Glucose post fast [Mass/Vol] 90 mg/dL [facility] Comment on above: NORMAL <100 mg/dL PREDIABETES 101-126 mg/dL DIABETES 126 mg/dL or higher Interpretation and review of laboratory results Abnormal [facility] Potassium [Moles/Vol] 4.2 mmol/L [facility] Sodium [Moles/Vol] 139 mmol/L [facility] Urea nitrogen [Mass/Vol] 15 mg/dL [facility] TROPONIN I, HIGH SENSITIVITY on 12-21-2023 TROPONIN I, HIGH SENSITIVITY 5 pg/mL 0 - 20 pg/mL [facility] Comment on above: Indeterminant: >12 to 100 pg/mL female >20 to 100 pg/mL male Indicative of myocardial injury. Serial sampling is recommended, a change of greater than or equal to 20 pg/mL is indicative of acute coronary syndrome. [facility] TROPONIN I, HIGH SENSITIVITY 5 pg/mL Normal 0-20 [facility] Comment on above: Result Comment: Indeterminant: >12 to 100 pg/mL female >20 to 100 pg/mL male Indicative of myocardial injury. Serial sampling is recommended, a change of greater than or equal to 20 pg/mL is indicative of acute coronary syndrome. Performed By: #### R FLUAB #### Testing performed at [place] [place] [id number] CBCon 12-07-2023 ABSOLUTE BAS 0.0 10*3/uL Normal 0.0-0.2 [facility] Comment on above: Performed By: #### A CBC, CMPF, MG #### Testing performed at [address] [address] ABSOLUTE EOS 0.4 10*3/uL Normal 0.0-0.7 [facility] Comment on above: Performed By: #### A CBC, CMPF, MG #### Testing performed at [address] [address] ABSOLUTE NEUTROPHIL COUNT 4.9 10*3/uL Normal 1.4-6.5 [facility] Comment on above: Performed By: #### A CBC, CMPF, MG #### Testing performed at [address] [address] Basophils/100 WBC (Bld) 0.7 % Normal 0.0-2.0 [facility] Comment on above: Performed By: #### A CBC, CMPF, MG #### Testing performed at [address] [address] DTYPE AUTO DIFF Normal [facility] Comment on above: Performed By: #### A CBC, CMPF, MG #### Testing performed at [address] [address] Eosinophils/100 WBC (Bld) 5.2 % Normal 0.0-11.0 [facility] Comment on above: Performed By: #### A CBC, CMPF, MG #### Testing performed at [address] [address] Lymphocytes (Bld) [#/Vol] 1.4 10*3/uL Normal 1.2-3.4 [facility] Comment on above: Performed By: #### A CBC, CMPF, MG #### Testing performed at [address] [address] Lymphocytes/100 WBC (Bld) 18.6 % Low 20.0-55.0 [facility] Comment on above: Performed By: #### A CBC, CMPF, MG #### Testing performed at [address] [address] Monocytes (Bld) [#/Vol] 0.8 10*3/uL High 0.0-0.7 [facility] Comment on above: Performed By: #### A CBC, CMPF, MG #### Testing performed at [address] [address] Monocytes/100 WBC (Bld) 10.3 % High 0.0-10.0 [facility] Comment on above: Performed By: #### A CBC, CMPF, MG #### Testing performed at [address] [address] Neutrophils/100 WBC (Bld) 65.2 % Normal 37.0-75.0 [facility] Comment on above: Performed By: #### A CBC, CMPF, MG #### Testing performed at [address] [address] Erythrocyte distribution width (RBC) [Ratio] 14.3 % Normal 11.5-14.5 [facility] Comment on above: Performed By: #### A CBC, CMPF, MG #### Testing performed at [address] [address] Hematocrit (Bld) [Volume fraction] 45.4 % Normal 42.0-52.0 [facility] Comment on above: Performed By: #### A CBC, CMPF, MG #### Testing performed at [address] [address] Hemoglobin (Bld) [Mass/Vol] 15.5 g/dL Normal 14.0-18.0 [facility] Comment on above: Performed By: #### A CBC, CMPF, MG #### Testing performed at [address] [address] MCH (RBC) [Entitic mass] 30.8 pg Normal 26.0-35.0 [facility] Comment on above: Performed By: #### A CBC, CMPF, MG #### Testing performed at [address] [address] MCHC (RBC) [Mass/Vol] 34.2 g/dL Normal 27.0-37.0 [facility] Comment on above: Performed By: #### A CBC, CMPF, MG #### Testing performed at [address] [address] MCV (RBC) [Entitic vol] 90.2 fL Normal 80.0-100.0 [facility] Comment on above: Performed By: #### A CBC, CMPF, MG #### Testing performed at [address] [address] Platelet mean volume (Bld) [Entitic vol] 7.3 fL Low 7.4-11.0 [facility] Comment on above: Performed By: #### A CBC, CMPF, MG #### Testing performed at [address] [address] Platelets (Bld) [#/Vol] 377 10*3/uL Normal 130-400 [facility] Comment on above: Performed By: #### A CBC, CMPF, MG #### Testing performed at [address] [address] RBC (Bld) [#/Vol] 5.04 10*6/uL Normal 4.0-6.1 [facility] Comment on above: Performed By: #### A CBC, CMPF, MG #### Testing performed at [address] [address] WBC (Bld) [#/Vol] 7.6 10*3/uL Normal 3.6-11.0 [facility] Comment on above: Performed By: #### A CBC, CMPF, MG #### Testing performed at [address] [address] CBC, EDIF, PLATELETon 2023 ABSOLUTE BASOPHIL COUNT 0.0 10*3/uL 0.0 - 0.2 10*3/uL [facility] Basophils/100 WBC (Bld) 0.7 % 0.0 - 2.0 % [facility] Differential cell count method Nom (Bld) AUTO DIFF % [facility] Eosinophils (Bld) [#/Vol] 0.4 10*3/uL 0.0 - 0.7 10*3/uL [facility] Eosinophils/100 WBC (Bld) 5.2 % 0.0 - 11.0 % [facility] Erythrocyte distribution width (RBC) [Ratio] 14.3 % 11.5 - 14.5 % [facility] Hematocrit (Bld) [Volume fraction] 45.4 % 42.0 - 52.0 % [facility] Hemoglobin (Bld) [Mass/Vol] 15.5 g/dL [facility] Interpretation and review of laboratory results Abnormal [facility] Lymphocytes (Bld) [#/Vol] 1.4 10*3/uL 1.2 - 3.4 10*3/uL [facility] Lymphocytes/100 WBC (Bld) 18.6 % Low 20.0 - 55.0 % [facility] MCH (RBC) [Entitic mass] 30.8 pg 26.0 - 35.0 PG [facility] MCHC (RBC) [Mass/Vol] 34.2 g/dL [facility] MCV (RBC) [Entitic vol] 90.2 fL [facility] Monocytes (Bld) [#/Vol] 0.8 10*3/uL High 0.0 - 0.7 10*3/uL [facility] Monocytes/100 WBC (Bld) 10.3 % High 0.0 - 10.0 % [facility] Neutrophils (Bld) [#/Vol] 4.9 10*3/uL 1.4 - 6.5 10*3/uL [facility] Neutrophils/100 WBC (Bld) 65.2 % 37.0 - 75.0 % [facility] Platelet mean volume (Bld) [Entitic vol] 7.3 fL Low [facility] Platelets (Bld) [#/Vol] 377 10*3/uL 130 - 400 10*3/uL [facility] RBC (Bld) [#/Vol] 5.04 10*6/uL 4.0 - 6.1 10*6/uL [facility] WBC (Bld) [#/Vol] 7.6 10*3/uL 3.6 - 11.0 10*3/uL [facility] CMP FASTINGon 12-07-2023 A:G RATIO 1.4 RATIO Normal [facility] Comment on above: Performed By: #### A CBC, CMPF, MG #### Testing performed at [facility] [address] [place] [address] ALBUMIN 4.0 G/dl Normal 3.5-5.0 [facility] Comment on above: Performed By: #### A CBC, CMPF, MG #### Testing performed at [address] [address] ALP [Catalytic activity/Vol] 99 U/L Normal 38-126 [facility] Comment on above: Performed By: #### A CBC, CMPF, MG #### Testing performed at [address] [address] ALT [Catalytic activity/Vol] 21 U/L Normal <50 [facility] Comment on above: Performed By: #### A CBC, CMPF, MG #### Testing performed at [address] [address] AST [Catalytic activity/Vol] 20 U/L Normal 17-59 [facility] Comment on above: Performed By: #### A CBC, CMPF, MG #### Testing performed at [address] [address] Bilirubin [Mass/Vol] 0.4 mg/dL Normal 0.2-1.3 [facility] Comment on above: Performed By: #### A CBC, CMPF, MG #### Testing performed at [address] [address] Calcium [Mass/Vol] 8.6 mg/dL Normal 8.4-10.2 [facility] Comment on above: Performed By: #### A CBC, CMPF, MG #### Testing performed at [address] [address] Chloride [Moles/Vol] 105 mmol/L Normal 98-107 [facility] Comment on above: Result Comment: Pleeleanor domínguez note: Triglyceride levels of 600mg/dL or higher may positively bias chloride results by approximately 2.1 mmol Performed By: #### A CBC, CMPF, MG #### Testing performed at [address] [address] CO2 [Moles/Vol] 29 mmol/L Normal 22-30 [facility] Comment on above: Performed By: #### A CBC, CMPF, MG #### Testing performed at [address] [place] [address] Creatinine [Mass/Vol] 1.30 mg/dL High 0.70-1.20 [facility] Comment on above: Performed By: #### A CBC, CMPF, MG #### Testing performed at [address] [address] EST. GFR, 70 ml/min/1.73sq.m [facility] Comment on above: Performed By: #### A CBC, CMPF, MG #### Testing performed at [address] [address] EST. GFR,Non 58 ml/min/1.73sq.m [facility] Comment on above: Performed By: #### A CBC, CMPF, MG #### Testing performed at [address] [address] GFR Information Average GFR for 70+ years old = 75. [facility] Comment on above: Result Comment: [employer]iah Kidney disease, GFR = <60. Kidney failure, GFR = <15. The GFR estimate is not adjusted for extreme body surface area or acute process, nor has it been validated for women or ethnic groups other than and . Performed By: #### A CBC, CMPF, MG #### Testing performed at [place] [id number] Glucose [Mass/Vol] 111 mg/dL High 70-100 [facility] Comment on above: Result Comment: NORMAL <100 mg/dL PREDIABETES 101-126 mg/dL DIABETES 126 mg/dL or higher Performed By: #### A CBC, CMPF, MG #### Testing performed at [address] [address] Potassium [Moles/Vol] 4.1 mmol/L Normal 3.5-5.1 [facility] Comment on above: Performed By: #### A CBC, CMPF, MG #### Testing performed at [address] [address] Protein [Mass/Vol] 6.8 g/dL Normal 6.3-8.2 [facility] Comment on above: Performed By: #### A CBC, CMPF, MG #### Testing performed at [address] [address] Sodium [Moles/Vol] 138 mmol/L Normal 137-145 [facility] Comment on above: Performed By: #### A CBC, CMPF, MG #### Testing performed at [address] [address] Urea nitrogen [Mass/Vol] 18 mg/dL Normal 7-20 [facility] Comment on above: Performed By: #### A CBC, CMPF, MG #### Testing performed at [place] [id number] COMPREHENSIVE METABOLIC PANE Karri 12-07-2023 Albumin [Mass/Vol] 4.0 G/dl 3.5 - 5.0 G/dl [facility] Albumin/Globulin [Mass ratio] 1.4 {ratio} RATIO [facility] ALP [Catalytic activity/Vol] 99 U/L [facility] ALT [Catalytic activity/Vol] 21 U/L NINF [facility] AST [Catalytic activity/Vol] 20 U/L [facility] Bilirubin [Mass/Vol] 0.4 mg/dL [facility] Calcium [Mass/Vol] 8.6 mg/dL [facility] Chloride [Moles/Vol] 105 mmol/L [facility] Comment on above: Please note: Triglyc eride levels of 600mg/dL or higher may positively bias chloride results by approximately 2.1 mmol CO2 [Moles/Vol] 29 mmol/L [facility] Creatinine [Mass/Vol] 1.30 mg/dL High [facility] GFR COMMENT Average GFR for 70+ years old = 75. [facility] Comment on above: Chronic Kidney disea se, GFR = <60. Kidney failure, GFR = <15. The GFR estimate is not adjusted for extreme body surface area or acute process, nor has it been validated for women or ethnic groups other than and . GFR/1.73 sq M.predicted among blacks MDRD (S/P/Bld) [Vol rate/Area] 70 mL/min/{1.73_m2} ml/min/1.73sq .m [facility] GFR/1.73 sq M.predicted among non-blacks MDRD (S/P/Bld) [Vol rate/Area] 58 mL/min/{1.73_m2} ml/min/1.73sq .m [facility] Glucose post fast [Mass/Vol] 111 mg/dL High [facility] Comment on above: NORMAL <100 mg/dL PREDIABETES 101-126 mg/dL DIABETES 126 mg/dL or higher Interpretation and review of laboratory results Abnormal [facility] Potassium [Moles/Vol] 4.1 mmol/L [facility] Protein [Mass/Vol] 6.8 g/dL [facility] Sodium [Moles/Vol] 138 mmol/L [facility] Urea nitrogen [Mass/Vol] 18 mg/dL [facility] INFLUENZA A AND B, PCRon FLUAV and FLUBV Ag IF Nom (Unsp spec) Negative NEGATIVE [facility] FLUBV Ag IA Ql (Unsp spec) Negative NEGATIVE [facility] Comment on above: TESTING PERFORMED BY [place] MAGNESIUMon 12-07-2023 Magnesium [Mass/Vol] 2.3 mg/dL [facility] Magnesium [Mass/Vol] 2.3 mg/dL Normal 1.6-2.3 [facility] Comment on above: Performed By: #### A CBC, CMPF, MG #### Testing performed at [address] [address] NOVEL CORONAVIRUSon 12-07-19 24 NARRATIVE This test was performed using isothermal [place] and has been approved as Emergency Use Authorization (EUA) for the qualitative detection [id number] nucleic acid. Normal [facility] Comment on above: Performed By: #### R FLUAB #### Testing performed at [address] [address] SARS-CoV-2 (COVID-19) RNA [place]+probe Ql (Unsp spec) Not detected Normal NOT DETECTED [facility] Comment on above: Result Comment: Nega tive results do not preclude SARS-CoV-2 infection and [...] patient is critically ill or clinically deteriorating. Performed By: #### R FLUAB #### [place] [address] NOVEL CORONAVIRUS LAB 1 - NA SOPHARYNGEALon 12-07-2023 NARRATIVE -1 This test was performed using isothermal [place] and has been approved as Emergency Use Authorization (EUA) for the qualitative detection [id number] nucleic acid. [facility] SARS-CoV-2 (COVID-19) RNA [place]+probe Ql (Unsp spec) Not detected NOT DETECTED [facility] Comment on above: Negative results [...] patient is critically ill or clinically deteriorating. [facility] No Panel Informationon 12-06 [facility] RAPID FLU Aon 12-07-2023 INFLUENZA A Negative Normal NEGATIVE [facility] Comment on above: Performed By: #### T ROHS #### Testing performed at [place] [id number] INFLUENZA B Negative Normal NEGATIVE [facility] Comment on above: Result Comment: TEST ING PERFORMED BY [place] Performed By: #### T ROHS #### Testing performed at [address] [address] RESPIRATORY SYNCYTIAL VIRUS PCRon 12-07-2023 RSV Ag IA Ql (Unsp spec) Negative NEGATIVE [facility] RSVon 12-07-2023 RSV Negative Normal NEGATIVE [facility] Comment on above: Performed By: #### R FLUAB #### Testing performed at [address] [address] TROPONIN I, HIGH SENSITIVITY on 12-07-2023 TROPONIN I, HIGH SENSITIVITY 16 pg/mL 0 - 20 pg/mL [facility] Comment on above: Indeterminant: >12 to 100 pg/mL female >20 to 100 pg/mL male Indicative of myocardial injury. Serial sampling is recommended, a change of greater than or equal to 20 pg/mL is indicative of acute coronary syndrome. [facility] TROPONIN I, HIGH SENSITIVITY 16 pg/mL Normal 0-20 [facility] Comment on above: Result Comment: Indeterminant: >12 to 100 pg/mL female >20 to 100 pg/mL male Indicative of myocardial injury. Serial sampling is recommended, a change of greater than or equal to 20 pg/mL is indicative of acute coronary syndrome. Performed By: #### T ROHS #### Testing performed at [facility] [address] [place] [address] XR CHEST PA 1 VIEWon 024 XR CHEST PA 1 VIEW XR CHEST PA 1 VIEW 12/06/2023 11:47 PM CDT: History: Shortness of breath Comparison: 08/23/2023 Technique: 1 view chest Findings: The cardiomediastinal silhouette is normal. The lungs are clear without infiltrate, effusion, or pneumothorax. The bones are intact. Impression: No acute cardiopulmonary process. Normal [facility] XR Chest PA uprighton 2023 Impression: No acute cardiopulmonary process. RADIOLOGY XR CHEST PA 1 VIEW 12/06/2023 11:47 PM CDT: History: Shortness of breath Comparison: 08/23/2023 Technique: 1 view chest Findings: The cardiomediastinal silhouette is normal. The lungs are clear without infiltrate, effusion, or pneumothorax. The bones are intact. RADIOLOGY Cj JASSO, Nate Cervantes MD - 12/07/2023 XR CHEST PA 1 VIEW 12/06/2023 11:47 PM CDT: History: Shortness of breath Comparison: 08/23/2023 Technique: 1 view chest Findings: The cardiomediastinal silhouette is normal. The lungs are clear without infiltrate, effusion, or pneumothorax. The bones are intact. IMPRESSION Impression: No acute cardiopulmonary process. [facility] Radiology Study observation (narrative) [facility] XR Chest PA uprightOrdered B y: Nate Corona on 12-07-2023 [facility] SPECT Heart perfusion at res t and W stress and W radionuclide Ceci 10-31-2023 ADDENDUM APPROVED REPORT NM EXAM: Nuclear Stress Test Imaging Protocol: Rest Tc-99m/Stress Tc-99m 1 day Medical History Pretest Chest Pain Characteristics: No chest pain Nuclear Conclusion ECG Findings: negative for ischemia Clinical Findings: negative for ischemia Nuclear Findings: negative for ischemia Exercise Capacity: not assessed Left Ventricular Function: normal Risk Study: low Moderate fixed apical septal defect of mild intensity at rest and stress without wall motion abnormality and normal thickening consistent with artifact. No definitive ischemia or scar. Study Data Post stress, the left ventricular ejection fraction was 67.0%. TID = 0.91. Resting Data Rest SPECT myocardial perfusion imaging was performed in supine position following the intravenous injection of 9.9 mCi of Tc-99m Sestamibi. Time of rest injection: 551 Date: 10/31/2023 Rest images obtained approximately 30 minutes post injection per protocol. Administration Route: IV Administration Site: Right Wrist Exercise Stress At peak stress, the patient was injected intravenously with 29.3mCi of Tc-99m Sestamibi. Time of stress injection: 707 Date: 10/31/2023 Stress images obtained approximately 30 minutes post injection per protocol. Administration Route: IV Administration Site: Right Wrist The images were gated to evaluate regional wall motion and calculate left ventricular ejection fraction. Stress ECG Conclusion nondiagnostic stress test, O2 sat 96% Clinical Reason for Termination: Completed protocol Exercise duration: 1 min 00 sec Exercise capacity: 1.0 METs Overall Exercise Capacity for Age: NA Scale: Sedentary Angina Score: None Stress Test Details Stress Test: Pharmacologic stress testing performed using 0.4 mg of regadenoson per 5 mL given IV over 10 seconds. HR Resting HR: 61 bpm Max Heart Rate (APMHR): 147.547264 bpm Max HR Achieved: 78 bpm Target HR (85% APMHR): 124.914697 bpm % of APMHR: 53.06 Recovery HR: 67 bpm HR response to stress: Normal HR response to stress BP Resting BP: 130/74 mmHg Max BP: 137/78 mmHg BP response to stress: Normal blood pressure response to stress. ECG Resting ECG: normal ST Change: none Arrhythmia: none Conclusion nondiagnostic stress test, O2 sat 96% CARDIOLOGY David Yepez DO - 11/01/2023 ADDENDUM APPROVED REPORT NM EXAM: Nuclear Stress Test Imaging Protocol: Rest Tc-99m/Stress Tc-99m 1 day Medical History Pretest Chest Pain Characteristics: No chest pain Nuclear Conclusion ECG Findings: negative for ischemia Clinical Findings: negative for ischemia Nuclear Findings: negative for ischemia Exercise Capacity: not assessed Left Ventricular Function: normal Risk Study: low Moderate fixed apical septal defect of mild intensity at rest and stress without wall motion abnormality and normal thickening consistent with artifact. No definitive ischemia or scar. Study Data Post stress, the left ventricular ejection fraction was 67.0%. TID = 0.91. Resting Data Rest SPECT myocardial perfusion imaging was performed in supine position following the intravenous injection of 9.9 mCi of Tc-99m Sestamibi. Time of rest injection: 551 Date: 10/31/2023 Rest images obtained approximately 30 minutes post injection per protocol. Administration Route: IV Administration Site: Right Wrist Exercise Stress At peak stress, the patient was injected intravenously with 29.3mCi of Tc-99m Sestamibi. Time of stress injection: 707 Date: 10/31/2023 Stress images obtained approximately 30 minutes post injection per protocol. Administration Route: IV Administration Site: Right Wrist The images were gated to evaluate regional wall motion and calculate left ventricular ejection fraction. Stress ECG Conclusion nondiagnostic stress test, O2 sat 96% Clinical Reason for Termination: Completed protocol Exercise duration: 1 min 00 sec Exercise capacity: 1.0 METs Overall Exercise Capacity for Age: NA Scale: Sedentary Angina Score: None Stress Test Details Stress Test: Pharmacologic stress testing performed using 0.4 mg of regadenoson per 5 mL given IV over 10 seconds. HR Resting HR: 61 bpmMax Heart Rate (APMHR): 147.575989 bpm Max HR Achieved: 78 bpmTarget HR (85% APMHR): 124.566458 bpm % of APMHR: 53.06 Recovery HR: 67 bpm HR response to stress: Normal HR response to stress BP Resting BP: 130/74 mmHg Max BP: 137/78 mmHg BP response to stress: Normal blood pressure response to stress. ECG Resting ECG: normal ST Change: none Arrhythmia: none Conclusion nondiagnostic stress test, O2 sat 96% [facility] Radiology Study observation (narrative) [facility] SPECT Heart perfusion at res t and W stress and W radionuclide IVOrdered By: David Yepez on 10-31-2023 [facility] Work Phone: CBCon 08-23-2023 ABSOLUTE BAS 0.0 10*3/uL Normal 0.0-0.2 [facility] Comment on above: Performed By: #### R FLUAB #### Testing performed at [address] [address] ABSOLUTE EOS 0.1 10*3/uL Normal 0.0-0.7 [facility] Comment on above: Performed By: #### R FLUAB #### Testing performed at [address] [address] ABSOLUTE NEUTROPHIL COUNT 1.9 10*3/uL Normal 1.4-6.5 [facility] Comment on above: Performed By: #### R FLUAB #### Testing performed at [address] [address] Basophils/100 WBC (Bld) 0.7 % Normal 0.0-2.0 [facility] Comment on above: Performed By: #### R FLUAB #### Testing performed at [address] [address] DTYPE AUTO DIFF Normal [facility] Comment on above: Performed By: #### R FLUAB #### Testing performed at [address] [address] Eosinophils/100 WBC (Bld) 3.0 % Normal 0.0-11.0 [facility] Comment on above: Performed By: #### R FLUAB #### Testing performed at [address] [address] Lymphocytes (Bld) [#/Vol] 1.7 10*3/uL Normal 1.2-3.4 [facility] Comment on above: Performed By: #### R FLUAB #### Testing performed at [address] [address] Lymphocytes/100 WBC (Bld) 37.8 % Normal 20.0-55.0 [facility] Comment on above: Performed By: #### R FLUAB #### Testing performed at [address] [address] Monocytes (Bld) [#/Vol] 0.8 10*3/uL High 0.0-0.7 [facility] Comment on above: Performed By: #### R FLUAB #### Testing performed at [address] [address] Monocytes/100 WBC (Bld) 17.1 % High 0.0-10.0 [facility] Comment on above: Performed By: #### R FLUAB #### Testing performed at [address] [address] Neutrophils/100 WBC (Bld) 41.4 % Normal 37.0-75.0 [facility] Comment on above: Performed By: #### R FLUAB #### Testing performed at [address] [address] Erythrocyte distribution width (RBC) [Ratio] 14.4 % Normal 11.5-14.5 [facility] Comment on above: Performed By: #### R FLUAB #### Testing performed at [address] [address] Hematocrit (Bld) [Volume fraction] 46.2 % Normal 42.0-52.0 [facility] Comment on above: Performed By: #### R FLUAB #### Testing performed at [address] [address] Hemoglobin (Bld) [Mass/Vol] 15.8 g/dL Normal 14.0-18.0 [facility] Comment on above: Performed By: #### R FLUAB #### Testing performed at [address] [address] MCH (RBC) [Entitic mass] 30.7 pg Normal 26.0-35.0 [facility] Comment on above: Performed By: #### R FLUAB #### Testing performed at [address] [address] MCHC (RBC) [Mass/Vol] 34.3 g/dL Normal 27.0-37.0 [facility] Comment on above: Performed By: #### R FLUAB #### Testing performed at [address] [address] MCV (RBC) [Entitic vol] 89.4 fL Normal 80.0-100.0 [facility] Comment on above: Performed By: #### R FLUAB #### Testing performed at [address] [address] Platelet mean volume (Bld) [Entitic vol] 7.1 fL Low 7.4-11.0 [facility] Comment on above: Performed By: #### R FLUAB #### Testing performed at [address] [address] Platelets (Bld) [#/Vol] 231 10*3/uL Normal 130-400 [facility] Comment on above: Performed By: #### R FLUAB #### Testing performed at [address] [address] RBC (Bld) [#/Vol] 5.16 10*6/uL Normal 4.0-6.1 [facility] Comment on above: Performed By: #### R FLUAB #### Testing performed at [address] [address] WBC (Bld) [#/Vol] 4.6 10*3/uL Normal 3.6-11.0 [facility] Comment on above: Performed By: #### R FLUAB #### Testing performed at [address] [address] CBC, EDIF, PLATELETon 2023 ABSOLUTE BASOPHIL COUNT 0.0 10*3/uL 0.0 - 0.2 10*3/uL [facility] Basophils/100 WBC (Bld) 0.7 % 0.0 - 2.0 % [facility] Differential cell count method Nom (Bld) AUTO DIFF % [facility] Eosinophils (Bld) [#/Vol] 0.1 10*3/uL 0.0 - 0.7 10*3/uL [facility] Eosinophils/100 WBC (Bld) 3.0 % 0.0 - 11.0 % [facility] Erythrocyte distribution width (RBC) [Ratio] 14.4 % 11.5 - 14.5 % [facility] Hematocrit (Bld) [Volume fraction] 46.2 % 42.0 - 52.0 % [facility] Hemoglobin (Bld) [Mass/Vol] 15.8 g/dL [facility] Interpretation and review of laboratory results Abnormal [facility] Lymphocytes (Bld) [#/Vol] 1.7 10*3/uL 1.2 - 3.4 10*3/uL [facility] Lymphocytes/100 WBC (Bld) 37.8 % 20.0 - 55.0 % [facility] MCH (RBC) [Entitic mass] 30.7 pg 26.0 - 35.0 PG [facility] MCHC (RBC) [Mass/Vol] 34.3 g/dL [facility] MCV (RBC) [Entitic vol] 89.4 fL [facility] Monocytes (Bld) [#/Vol] 0.8 10*3/uL High 0.0 - 0.7 10*3/uL [facility] Monocytes/100 WBC (Bld) 17.1 % High 0.0 - 10.0 % [facility] Neutrophils (Bld) [#/Vol] 1.9 10*3/uL 1.4 - 6.5 10*3/uL [facility] Neutrophils/100 WBC (Bld) 41.4 % 37.0 - 75.0 % [facility] Platelet mean volume (Bld) [Entitic vol] 7.1 fL Low [facility] Platelets (Bld) [#/Vol] 231 10*3/uL 130 - 400 10*3/uL [facility] RBC (Bld) [#/Vol] 5.16 10*6/uL 4.0 - 6.1 10*6/uL [facility] WBC (Bld) [#/Vol] 4.6 10*3/uL 3.6 - 11.0 10*3/uL [facility] CMP FASTINGon 08-23-2023 A:G RATIO 1.4 RATIO Normal [facility] Comment on above: Performed By: #### R FLUAB #### Testing performed at [facility] [address] [place] [address] ALBUMIN 4.1 G/dl Normal 3.5-5.0 [facility] Comment on above: Performed By: #### R FLUAB #### Testing performed at [address] [address] ALP [Catalytic activity/Vol] 95 U/L Normal 38-126 [facility] Comment on above: Performed By: #### R FLUAB #### Testing performed at [address] [address] ALT [Catalytic activity/Vol] 24 U/L Normal <50 [facility] Comment on above: Performed By: #### R FLUAB #### Testing performed at [address] [address] AST [Catalytic activity/Vol] 31 U/L Normal 17-59 [facility] Comment on above: Performed By: #### R FLUAB #### Testing performed at [address] [address] Bilirubin [Mass/Vol] 0.5 mg/dL Normal 0.2-1.3 [facility] Comment on above: Performed By: #### R FLUAB #### Testing performed at [address] [address] Calcium [Mass/Vol] 8.4 mg/dL Normal 8.4-10.2 [facility] Comment on above: Performed By: #### R FLUAB #### Testing performed at [address] [address] Chloride [Moles/Vol] 103 mmol/L Normal 98-107 [facility] Comment on above: Result Comment: Pleeleanor domínguez note: Triglyceride levels of 600mg/dL or higher may positively bias chloride results by approximately 2.1 mmol Performed By: #### R FLUAB #### Testing performed at [address] [address] CO2 [Moles/Vol] 27 mmol/L Normal 22-30 [facility] Comment on above: Performed By: #### R FLUAB #### Testing performed at [address] [address] Creatinine [Mass/Vol] 1.10 mg/dL Normal 0.70-1.20 [facility] Comment on above: Performed By: #### R FLUAB #### Testing performed at [address] [address] EST. GFR, 84 ml/min/1.73sq.m [facility] Comment on above: Performed By: #### R FLUAB #### Testing performed at [address] [address] EST. GFR,Non 70 ml/min/1.73sq.m [facility] Comment on above: Performed By: #### R FLUAB #### Testing performed at [address] [address] GFR Information Average GFR for 70+ years old = 75. [facility] Comment on above: Result Comment: [employer] isaiah Kidney disease, GFR = <60. Kidney failure, GFR = <15. The GFR estimate is not adjusted for extreme body surface area or acute process, nor has it been validated for women or ethnic groups other than and . Performed By: #### R FLUAB #### Testing performed at [address] [address] Glucose [Mass/Vol] 100 mg/dL Normal 70-100 [facility] Comment on above: Result Comment: NORMAL <100 mg/dL PREDIABETES 101-126 mg/dL DIABETES 126 mg/dL or higher Performed By: #### R FLUAB #### Testing performed at [address] [address] Potassium [Moles/Vol] 3.8 mmol/L Normal 3.5-5.1 [facility] Comment on above: Performed By: #### R FLUAB #### Testing performed at [address] [address] Protein [Mass/Vol] 7.1 g/dL Normal 6.3-8.2 [facility] Comment on above: Performed By: #### R FLUAB #### Testing performed at [address] [address] Sodium [Moles/Vol] 135 mmol/L Low 137-145 [facility] Comment on above: Performed By: #### R FLUAB #### Testing performed at [address] [address] Urea nitrogen [Mass/Vol] 14 mg/dL Normal 7-20 [facility] Comment on above: Performed By: #### R FLUAB #### Testing performed at [facility] [address] [place] [address] COMPREHENSIVE METABOLIC PANE Karri 08-23-2023 Albumin [Mass/Vol] 4.1 G/dl 3.5 - 5.0 G/dl [facility] Albumin/Globulin [Mass ratio] 1.4 {ratio} RATIO [facility] ALP [Catalytic activity/Vol] 95 U/L [facility] ALT [Catalytic activity/Vol] 24 U/L NINF [facility] AST [Catalytic activity/Vol] 31 U/L [facility] Bilirubin [Mass/Vol] 0.5 mg/dL [facility] Calcium [Mass/Vol] 8.4 mg/dL [facility] Chloride [Moles/Vol] 103 mmol/L [facility] Comment on above: Please note: Triglyc eride levels of 600mg/dL or higher may positively bias chloride results by approximately 2.1 mmol CO2 [Moles/Vol] 27 mmol/L [facility] Creatinine [Mass/Vol] 1.10 mg/dL [facility] GFR COMMENT Average GFR for 70+ years old = 75. [facility] Comment on above: Chronic Kidney disea se, GFR = <60. Kidney failure, GFR = <15. The GFR estimate is not adjusted for extreme body surface area or acute process, nor has it been validated for women or ethnic groups other than and . GFR/1.73 sq M.predicted among blacks MDRD (S/P/Bld) [Vol rate/Area] 84 mL/min/{1.73_m2} ml/min/1.73sq .m [facility] GFR/1.73 sq M.predicted among non-blacks MDRD (S/P/Bld) [Vol rate/Area] 70 mL/min/{1.73_m2} ml/min/1.73sq .m [facility] Glucose post fast [Mass/Vol] 100 mg/dL [facility] Comment on above: NORMAL <100 mg/dL PREDIABETES 101-126 mg/dL DIABETES 126 mg/dL or higher Interpretation and review of laboratory results Abnormal [facility] Potassium [Moles/Vol] 3.8 mmol/L [facility] Protein [Mass/Vol] 7.1 g/dL [facility] Sodium [Moles/Vol] 135 mmol/L Low [facility] Urea nitrogen [Mass/Vol] 14 mg/dL [facility] CT PE STUDYon 08-23-2023 CT PE STUDY EXAM: CT PE STUDY HISTORY: Positive d-dimer COMPARISON: 04/20/2023 TECHNIQUE: CT chest with intravenous contrast was performed with timing for the evaluation for pulmonary arteries. Multiplanar reformats were performed. MIP (maximum intensity projection) images or 3D post processing was performed. Dose reduction techniques were achieved by using automated exposure control and/or adjustment of mA and/or kV according to patient size and/or use of iterative reconstruction technique. FINDINGS: Lungs: No consolidation, pneumothorax, or effusion. Airways: Normal. Mediastinum: No adenopathy. Aorta: No aneurysm. Cardiac: Normal size. No pericardial effusion. Pulmonary vasculature: Diagnostic opacification of pulmonary arteries without evidence of pulmonary embolus. Normal morphology. Bones: No acute bony abnormality. Axilla: No adenopathy. Thyroid gland: No abnormality demonstrated on provided imaging. Soft tissues: Unremarkable. Upper abdomen: Small hiatal hernia Additional findings: None. IMPRESSION:No evidence of pulmonary embolus or acute intrathoracic abnormality. Normal [facility] CT Pulmonary arteries for pu lmonary emboluson 08-23-2023 IMPRESSION:No evidence of pulmonary embolus or acute intrathoracic abnormality. RADIOLOGY EXAM: CT PE STUDY HISTORY: Positive d-dimer COMPARISON: 04/20/2023 TECHNIQUE: CT chest with intravenous contrast was performed with timing for the evaluation for pulmonary arteries. Multiplanar reformats were performed. MIP (maximum intensity projection) images or 3D post processing was performed. Dose reduction techniques were achieved by using automated exposure control and/or adjustment of mA and/or kV according to patient size and/or use of iterative reconstruction technique. FINDINGS: Lungs: No consolidation, pneumothorax, or effusion. Airways: Normal. Mediastinum: No adenopathy. Aorta: No aneurysm. Cardiac: Normal size. No pericardial effusion. Pulmonary vasculature: Diagnostic opacification of pulmonary arteries without evidence of pulmonary embolus. Normal morphology. Bones: No acute bony abnormality. Axilla: No adenopathy. Thyroid gland: No abnormality demonstrated on provided imaging. Soft tissues: Unremarkable. Upper abdomen: Small hiatal hernia Additional findings: None. RADIOLOGY Tabby Reynaga MD - 08/23/2023 EXAM: CT PE STUDY HISTORY: Positive d-dimer COMPARISON: 04/20/2023 TECHNIQUE: CT chest with intravenous contrast was performed with timing for the evaluation for pulmonary arteries. Multiplanar reformats were performed. MIP (maximum intensity projection) images or 3D post processing was performed. Dose reduction techniques were achieved by using automated exposure control and/or adjustment of mA and/or kV according to patient size and/or use of iterative reconstruction technique. FINDINGS: Lungs: No consolidation, pneumothorax, or effusion. Airways: Normal. Mediastinum: No adenopathy. Aorta: No aneurysm. Cardiac: Normal size. No pericardial effusion. Pulmonary vasculature: Diagnostic opacification of pulmonary arteries without evidence of pulmonary embolus. Normal morphology. Bones: No acute bony abnormality. Axilla: No adenopathy. Thyroid gland: No abnormality demonstrated on provided imaging. Soft tissues: Unremarkable. Upper abdomen: Small hiatal hernia Additional findings: None. IMPRESSION IMPRESSION:No evidence of pulmonary embolus or acute intrathoracic abnormality. [facility] Radiology Study observation (narrative) [facility] CT Pulmonary arteries for pu lmonary embolusOrdered By: Tabby Reynaga on 08-23-2023 [facility] Work Phone: D DIMERon 08-23-2023 D DIMER 0.52 ??g/ml Critically high <0.50 [facility] Comment on above: Result Comment: If r esult is greater than the cutoff value of 0.56 mg/L then the potential for PE or DVT exists. Other conditions exist which may cause a falsely elevated level. Please correlate clinically, including radiological findings and other clinical parameters. Result called to and read back by: USHA 08/23/2023 @ 17:50 by MMB Performed By: #### R FLUAB #### Testing performed at [address] [address] D-DIMER,QUANTITATIVEon 08-23 Fibrin D-dimer FEU (PPP) [Mass/Vol] 0.52 Critically high [facility] Comment on above: If result is greater than the cutoff value of 0.56 mg/L then the potential for PE or DVT exists. Other conditions exist which may cause a falsely elevated level. Please correlate clinically, including radiological findings and other clinical parameters. Result called to and read back by: USHA 08/23/2023 @ 17:50 by MMB Interpretation and review of laboratory results Abnormal [facility] INFLUENZA A AND B, PCRon FLUAV and FLUBV Ag IF Nom (Unsp spec) Negative NEGATIVE [facility] FLUBV Ag IA Ql (Unsp spec) Negative NEGATIVE [facility] Comment on above: TESTING PERFORMED BY [place] [facility] NOVEL CORONAVIRUSon 08-23-19 24 NARRATIVE This test was performed using isothermal [place] and has been approved as Emergency Use Authorization (EUA) for the qualitative detection [id number] nucleic acid. Normal [facility] Comment on above: Performed By: #### C OVID #### Testing performed at [address] [place] [address] SARS-CoV-2 (COVID-19) RNA [place]+probe Ql (Unsp spec) Not detected Normal NOT DETECTED [facility] Comment on above: Result Comment: Nega tive results do not preclude SARS-CoV-2 infection and [...] patient is critically ill or clinically deteriorating. Performed By: #### C OVID #### Testing performed at [address] [place] [address] NOVEL CORONAVIRUS LAB 1 - NA SOPHARYNGEALon 08-23-2023 NARRATIVE -1 This test was performed using isothermal [place] and has been approved as Emergency Use Authorization (EUA) for the qualitative detection [id number] nucleic acid. [facility] SARS-CoV-2 (COVID-19) RNA [place]+probe Ql (Unsp spec) Not detected NOT DETECTED [facility] Comment on above: Negative results [...] patient is critically ill or clinically deteriorating. [facility] RAPID FLU Aon 08-23-2023 INFLUENZA A Negative Normal NEGATIVE [facility] Comment on above: Performed By: #### R FLUAB #### [place] [address] INFLUENZA B Negative Normal NEGATIVE [facility] Comment on above: Result Comment: TEST ING PERFORMED BY [place] Performed By: #### R FLUAB #### Testing performed at [place] [id number] RESPIRATORY SYNCYTIAL VIRUS PCRon 08-23-2023 RSV Ag IA Ql (Unsp spec) Negative NEGATIVE [facility] RSVon 08-23-2023 RSV Negative Normal NEGATIVE [facility] Comment on above: Performed By: #### T ROHS #### Testing performed at [place] [id number] TROPONIN I, HIGH SENSITIVITY on 08-23-2023 TROPONIN I, HIGH SENSITIVITY 3 pg/mL 0 - 20 pg/mL [facility] Comment on above: Indeterminant: >12 to 100 pg/mL female >20 to 100 pg/mL male Indicative of myocardial injury. Serial sampling is recommended, a change of greater than or equal to 20 pg/mL is indicative of acute coronary syndrome. [facility] TROPONIN I, HIGH SENSITIVITY 3 pg/mL Normal 0-20 [facility] Comment on above: Result Comment: Indeterminant: >12 to 100 pg/mL female >20 to 100 pg/mL male Indicative of myocardial injury. Serial sampling is recommended, a change of greater than or equal to 20 pg/mL is indicative of acute coronary syndrome. Performed By: #### T ROHS #### Testing performed at [place] [id number] XR CHEST PA 1 VIEWon 024 XR CHEST PA 1 VIEW EXAM: XR CHEST PA 1 VIEW HISTORY: Shortness of breath. COMPARISON: Chest radiograph dated 07/05/2023. TECHNIQUE: 2 AP views of the chest performed. FINDINGS: The trachea is midline. The heart size is normal. Stable mild atheromatous calcification at the aortic arch. The hilar shadows are stable. There is no consolidation, infiltrate, pleural effusion or pulmonary vascular congestion. There is no pneumothorax. The bony structures are osteopenic. There is no acute osseous abnormality. IMPRESSION: There is no acute cardiopulmonary process. Normal [facility] XR Chest PA uprighton 2023 IMPRESSION: There is no acute cardiopulmonary process. RADIOLOGY EXAM: XR CHEST PA 1 VIEW HISTORY: Shortness of breath. COMPARISON: Chest radiograph dated 07/05/2023. TECHNIQUE: 2 AP views of the chest performed. FINDINGS: The trachea is midline. The heart size is normal. Stable mild atheromatous calcification at the aortic arch. The hilar shadows are stable. There is no consolidation, infiltrate, pleural effusion or pulmonary vascular congestion. There is no pneumothorax. The bony structures are osteopenic. There is no acute osseous abnormality. RADIOLOGY Raymond Adams MD - 08/23/2023 EXAM: XR CHEST PA 1 VIEW HISTORY: Shortness of breath. COMPARISON: Chest radiograph dated 07/05/2023. TECHNIQUE: 2 AP views of the chest performed. FINDINGS: The trachea is midline. The heart size is normal. Stable mild atheromatous calcification at the aortic arch. The hilar shadows are stable. There is no consolidation, infiltrate, pleural effusion or pulmonary vascular congestion. There is no pneumothorax. The bony structures are osteopenic. There is no acute osseous abnormality. IMPRESSION IMPRESSION: There is no acute cardiopulmonary process. [facility] Radiology Study observation (narrative) [facility] XR Chest PA uprightOrdered B y: Raymond Adams on 08-23-2023 [facility] Work Phone: CT NECK WITH CONTRASTon - CT NECK WITH CONTRAST EXAM: CT NECK [...] Small incidental 1.3 cm left laryngocele. Normal [facility] CT Neck W contrast Ceci -1 IMPRESSION: 1. No extranodal soft tissue mass, [...] 2. 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 [facility] Radiology Study observation (narrative) [facility] CT Neck W contrast IVOrdered By: Jessenia Stewart on 05-11-2023 [facility] Work Phone: US NECK SOFT [...] further investigate a suspicious palpable lesion Normal [facility] US Neckon 04-10-2023 IMPRESSION: The area [...] with hypoechoic cortex and central fatty wil Edwin Valencia MD - 04/10/2023 EXAM: US NECK SOFT [...] could further investigate a suspicious palpable lesion [facility] Radiology Study observation (narrative) [facility] US NeckOrdered By: Edwin Nichole on 04-10-2023 [facility] Work Phone: CBC AUTO DIFFon 11-23-2022 BASO # 0.1 103/ul Normal 0.0-0.1 [facility] Comment on above: Performed By: #### C MP, BNP, YESI #### [facility] [address] [place] [address] Dr. Emilie Stack Basophils/100 WBC (Bld) 0.9 % Normal 0.2-2.0 [facility] Comment on above: Performed By: #### C MP, BNP, YESI #### [facility] [address] [place] [address] Dr. Emilie Stack EO # 0.0 103/ul Normal 0.0-0.7 [facility] Comment on above: Performed By: #### C MP, BNP, YESI #### [facility] [address] [place] [address] Dr. Emilie Stack Eosinophils/100 WBC (Bld) 0.7 % Critically low 0.9-7.0 [facility] Comment on above: Performed By: #### C MP, BNP, YESI #### [facility] [address] [place] [address] Dr. Emilie Stack Erythrocyte distribution width (RBC) [Ratio] 13.9 % Normal 11.0-15.0 [facility] Comment on above: Performed By: #### C MP, BNP, YESI #### [facility] [address] [place] [address] Dr. Emilie Stack Hematocrit (Bld) [Volume fraction] 45.3 % Normal 42.0-54.0 [facility] Comment on above: Performed By: #### C MP, BNP, YESI #### [facility] [address] [place] [address] Dr. Emilie Stack Hemoglobin (Bld) [Mass/Vol] 15.2 g/dL Normal 14.0-18.0 [facility] Comment on above: Performed By: #### C MP, BNP, YESI #### [facility] [address] [place] [address] Dr. Emilie Stack IG # 0.02 10e3/ul Normal 0.00-0.03 [facility] Comment on above: Performed By: #### C MP, BNP, YESI #### [facility] [address] [place] [address] Dr. Emilie Stack IG % 0.4 % Normal 0.0-0.5 [facility] Comment on above: Performed By: #### C MP, BNP, YESI #### [facility] [address] [place] [address] Dr. Emilie Stack LYMPH # 0.9 103/ul Critically low 1.2-3.[address] [facility] Comment on above: Performed By: #### C MP, BNP, YESI #### [facility] [address] [place] [address] Dr. Emilie Stack Lymphocytes/100 WBC (Bld) 16.2 % Critically low 20.5-60.0 [facility] Comment on above: Performed By: #### C MP, BNP, YESI #### [facility] [address] [place] [address] Dr. Emilie Stack MANUAL DIFF REQ NO Normal [facility] Comment on above: Performed By: #### C MP, BNP, YESI #### [facility] [address] [place] [address] Dr. Emilie Stack MCH (RBC) [Entitic mass] 30.5 pg Normal 25.9-34.0 [facility] Comment on above: Performed By: #### C MP, BNP, YESI #### [facility] [address] [place] [address] Dr. Emilie Stack MCHC (RBC) [Mass/Vol] 33.6 g/dL Normal 29.9-35.2 [facility] Comment on above: Performed By: #### C MP, BNP, YESI #### [facility] [address] [place] [address] Dr. Emilie Stack MCV (RBC) [Entitic vol] 90.8 fL Normal 80.0-94.0 [facility] Comment on above: Performed By: #### C MP, BNP, YESI #### [facility] [address] [place] [address] Dr. Emilie Stack MONO # 0.8 103/ul Normal 0.3-0.8 [facility] Comment on above: Performed By: #### C MP, BNP, YESI #### [facility] [address] [place] [address] Dr. Emilie Stack Monocytes/100 WBC (Bld) 15.1 % Critically high 1.7-12.0 [facility] Comment on above: Performed By: #### C MP, BNP, YESI #### [facility] [address] [place] [address] Dr. Emilie Stack NEUT # 3.7 103/ul Normal 1.4-6.5 [facility] Comment on above: Performed By: #### C MP, BNP, YESI #### [facility] [address] [place] [address] Dr. Emilie Stack Neutrophils/100 WBC (Bld) 66.7 % Normal 43.0-75.0 [facility] Comment on above: Performed By: #### C MP, BNP, YESI #### [facility] [address] [place] [address] Dr. Emilie Stack Platelet mean volume (Bld) [Entitic vol] 8.6 fL Critically low 9.5-13.5 [facility] Comment on above: Performed By: #### C MP, BNP, YESI #### [facility] [address] [place] [address] Dr. Emilie Stack PLT 301 103/ul Normal 150-450 [facility] Comment on above: Performed By: #### C MP, BNP, YESI #### [facility] [address] [place] [address] Dr. Emilie Stack RBC 4.99 106/ul Normal 4.70-6.10 [facility] Comment on above: Performed By: #### C MP, BNP, YESI #### [facility] [address] [place] [address] Dr. Emilie Stack WBC 5.5 103/ul Normal 4.0-11.0 [facility] Comment on above: Performed By: #### C MP, BNP, YESI #### [facility] [address] [place] [address] Dr. Emilie Stack [facility] SARS-CoV-2 (COVID-19) RNA [place]+probe Ql (Unsp spec) Not detected Normal NOT DETECTED [facility] Comment on above: Result Comment: THIS TEST IS NOT APPROVED BY THE FDA. IT HAS BEEN AUTHORIZED FOR USE UNDER AN EMERGENCY USE AUTHORIZATION. Performed By: #### T ROSSY, CMP, BNP #### [facility] [address] [place] [address] Dr. Emilie Stack PROF CHEM 8 (BAS METB)on Anion gap [Moles/Vol] 14.2 mmol/L Normal [facility] Comment on above: Performed By: #### C MP, BNP, YESI #### [facility] [address] [place] [address] Dr. Emilie Stack Calcium [Mass/Vol] 8.7 mg/dL Normal 8.5-10.1 [facility] Comment on above: Performed By: #### C MP, BNP, YESI #### [facility] [address] [place] [address] Dr. Emilie Stack Chloride [Moles/Vol] 103 mmol/L Normal 98-107 [facility] Comment on above: Performed By: #### C MP, BNP, YESI #### [facility] [address] [place] [address] Dr. Emilie Stack CO2 [Moles/Vol] 25.9 mmol/L Normal 21.0-32.0 [facility] Comment on above: Performed By: #### C MP, BNP, YESI #### [facility] [address] [place] [address] Dr. Emilie Stack Creatinine [Mass/Vol] 1.16 mg/dL Normal 0.70-1.30 [facility] Comment on above: Performed By: #### C MP, BNP, YESI #### [facility] [address] [address] [address] Emilie Stack EGFR-AF JORDANIAN >60 Normal >=60 [facility] Comment on above: Performed By: #### C MP, BNP, YESI #### [facility] [address] [address] [address] Emilie Stack EGFR-NON AF JORDANIAN >60 Normal >=60 [facility] Comment on above: Performed By: #### C MP, BNP, YESI #### [facility] [address] [address] [address] Emilie Stack Glucose [Mass/Vol] 100 mg/dL Normal 74-106 [facility] Comment on above: Performed By: #### C MP, BNP, YESI #### [facility] [address] [place] [address] Dr. Emilie Stack Potassium [Moles/Vol] 4.1 mmol/L Normal 3.5-5.1 [facility] Comment on above: Performed By: #### C MP, BNP, YESI #### [facility] [address] [address] [address] Emilie Stack Sodium [Moles/Vol] 139 mmol/L Normal 136-145 [facility] Comment on above: Performed By: #### C MP, BNP, YESI #### [facility] [address] [place] [address] Dr. Emilie Stack Urea nitrogen [Mass/Vol] 10.0 mg/dL Normal 7.0-18.0 [facility] Comment on above: Performed By: #### C MP, BNP, YESI #### [facility] [address] [place] [address] Dr. Emilie Stack Urea nitrogen/Creatinine [Mass ratio] 8.6 mg/mg Normal [facility] Comment on above: Performed By: #### C MP, BNP, YESI #### [facility] [address] [place] [address] Dr. Emilie Stack SYMPTOMATIC COVID-19 ANTIGEN on 11-23-2022 EUA Statement SEE BELOW Normal [facility] Comment on above: Result Comment: This test [...] By: #### T ROSSY BNP, CMP #### [facility] [address] [place] [address] Dr. Emilie Stack SARS-CoV-2 (COVID-19) RNA [place]+probe Ql (Unsp spec) Negative Normal NEGATIVE [facility] Comment on above: Performed By: #### T ROSSY BNP, CMP #### [facility] [address] [place] [address] Dr. Emilie Stack THEOPHYLLINEon 11-23-2022 THEOPHYLLINE 8.0 ug/mL Critically low 10.0-20.0 [facility] Comment on above: Performed By: #### C FRANCES BNP, YESI #### [facility] [address] [place] [address] Dr. Emilie Stack XR CHEST 1 Von [...] by: EDWIN NICHOLE Date: 2022-11-23 12:36 Normal [facility] BNPon 08-15-2022 Natriuretic peptide B (Bld) [Mass/Vol] 107.0 pg/mL Normal <=900.0 [facility] Comment on above: Performed By: #### C MP, BNP, YESI #### [facility] [address] [place] [address] Dr. Emilie Stack CBC AUTO DIFFon 08-15-2022 BASO # 0.0 103/ul Normal 0.0-0.1 [facility] Comment on above: Performed By: #### C MP, BNP, YESI #### [facility] [address] [place] [address] Dr. Emilie Stack Basophils/100 WBC (Bld) 0.2 % Normal 0.2-2.0 [facility] Comment on above: Performed By: #### C MP, BNP, YESI #### [facility] [address] [place] [address] Dr. Emilie Stack EO # 0.0 103/ul Normal 0.0-0.7 [facility] Comment on above: Performed By: #### C MP, BNP, YESI #### [facility] [address] [place] [address] Dr. Emilie Stack Eosinophils/100 WBC (Bld) 0.0 % Critically low 0.9-7.0 [facility] Comment on above: Performed By: #### C MP, BNP, YESI #### [facility] [address] [place] [address] Dr. Emilie Stack Erythrocyte distribution width (RBC) [Ratio] 14.6 % Normal 11.0-15.0 [facility] Comment on above: Performed By: #### C MP, BNP, YESI #### [facility] [address] [place] [address] Dr. Emilie Stack Hematocrit (Bld) [Volume fraction] 41.0 % Critically low 42.0-54.0 [facility] Comment on above: Performed By: #### C MP, BNP, YESI #### [facility] [address] [place] [address] Dr. Emilie Stack Hemoglobin (Bld) [Mass/Vol] 13.8 g/dL Critically low 14.0-18.0 [facility] Comment on above: Performed By: #### C MP, BNP, YESI #### [facility] [address] [place] [address] Dr. Emilie Stack IG # 0.12 10e3/ul Critically high 0.00-0.03 [facility] Comment on above: Performed By: #### C MP, BNP, YESI #### [facility] [address] [place] [address] Dr. Emilie Stack IG % 1.0 % Critically high 0.0-0.5 [facility] Comment on above: Performed By: #### C MP, BNP, YESI #### [facility] [address] [place] [address] Dr. Emilie Stack LYMPH # 0.5 103/ul Critically low 1.2-3.[address] [facility] Comment on above: Performed By: #### C MP, BNP, YESI #### [facility] [address] [place] [address] Dr. Emilie Stack Lymphocytes/100 WBC (Bld) 3.8 % Critically low 20.5-60.0 [facility] Comment on above: Performed By: #### C MP, BNP, YESI #### [facility] [address] [place] [address] Dr. Emilie Stack MANUAL DIFF REQ NO Normal [facility] Comment on above: Performed By: #### C MP, BNP, YESI #### [facility] [address] [place] [address] Dr. Emilie Stack MCH (RBC) [Entitic mass] 30.3 pg Normal 25.9-34.0 [facility] Comment on above: Performed By: #### C MP, BNP, YESI #### [facility] [address] [place] [address] Dr. Emilie Stack MCHC (RBC) [Mass/Vol] 33.7 g/dL Normal 29.9-35.2 [facility] Comment on above: Performed By: #### C MP, BNP, YESI #### [facility] [address] [place] [address] Dr. Emilie Stack MCV (RBC) [Entitic vol] 89.9 fL Normal 80.0-94.0 [facility] Comment on above: Performed By: #### C MP, BNP, YESI #### [facility] [address] [place] [address] Dr. Emilie Stack MONO # 0.8 103/ul Normal 0.3-0.8 [facility] Comment on above: Performed By: #### C MP, BNP, YESI #### [facility] [address] [place] [address] Dr. Emilie Stack Monocytes/100 WBC (Bld) 6.0 % Normal 1.7-12.0 [facility] Comment on above: Performed By: #### C MP, BNP, YESI #### [facility] [address] [place] [address] Dr. Emilie Stack NEUT # 11.1 103/ul Critically high 1.4-6.5 [facility] Comment on above: Performed By: #### C MP, BNP, YESI #### [facility] [address] [place] [address] Dr. Emilie Stack Neutrophils/100 WBC (Bld) 89.0 % Critically high 43.0-75.0 [facility] Comment on above: Performed By: #### C MP, BNP, YESI #### [facility] [address] [place] [address] Dr. Emilie Stack Platelet mean volume (Bld) [Entitic vol] 8.6 fL Critically low 9.5-13.5 [facility] Comment on above: Performed By: #### C MP, BNP, YESI #### [facility] [address] [place] [address] Dr. Emilie Stack PLT 268 103/ul Normal 150-450 [facility] Comment on above: Performed By: #### C MP, BNP, YESI #### [facility] [address] [place] [address] Dr. Emilie Stack RBC 4.56 106/ul Critically low 4.70-6.10 [facility] Comment on above: Performed By: #### C MP, BNP, YESI #### [facility] [address] [address] [address] Emilie Stack WBC 12.5 103/ul Critically high 4.0-11.0 [facility] Comment on above: Performed By: #### C MP, BNP, YESI #### [facility] [address] [place] [address] Dr. Emilie Stack PROF 14(COMP METB)on 023 Albumin [Mass/Vol] 3.2 g/dL Critically low 3.4-5.0 [facility] Comment on above: Performed By: #### C MP, BNP, YESI #### [facility] [address] [place] [address] Dr. Emilie Stack Albumin/Globulin [Mass ratio] 1.1 {ratio} Normal [facility] Comment on above: Performed By: #### C MP, BNP, YESI #### [facility] [address] [place] [address] Dr. Emilie Stack ALP [Catalytic activity/Vol] 83 U/L Normal 46-116 [facility] Comment on above: Performed By: #### C MP, BNP, YESI #### [facility] [address] [place] [address] Dr. Emilie Stack ALT [Catalytic activity/Vol] 27 U/L Normal 16-63 [facility] Comment on above: Performed By: #### C MP, BNP, YESI #### [facility] [address] [place] [address] Dr. Emilie Stack Anion gap [Moles/Vol] 13.0 mmol/L Normal [facility] Comment on above: Performed By: #### C MP, BNP, YESI #### [facility] [address] [place] [address] Dr. Emilie Stack AST [Catalytic activity/Vol] 24 U/L Normal 15-37 [facility] Comment on above: Performed By: #### C MP, BNP, YESI #### [facility] [address] [place] [address] Dr. Emilie Stack Bilirubin [Mass/Vol] 0.3 mg/dL Normal 0.2-1.0 [facility] Comment on above: Performed By: #### C MP, BNP, YESI #### [facility] [address] [address] [address] Emilie Stack Calcium [Mass/Vol] 8.3 mg/dL Critically low 8.5-10.1 [facility] Comment on above: Performed By: #### C MP, BNP, YESI #### [facility] [address] [place] [address] Dr. Emilie Stack Chloride [Moles/Vol] 104 mmol/L Normal 98-107 [facility] Comment on above: Performed By: #### C MP, BNP, YESI #### [facility] [address] [place] [address] Dr. Emilie Stack CO2 [Moles/Vol] 25.8 mmol/L Normal 21.0-32.0 [facility] Comment on above: Performed By: #### C MP, BNP, YESI #### [facility] [address] [place] [address] Dr. Emilie Stack Creatinine [Mass/Vol] 1.17 mg/dL Normal 0.70-1.30 [facility] Comment on above: Performed By: #### C MP, BNP, YESI #### [facility] [address] [place] [address] Dr. Emilie Stack EGFR-AF JORDANIAN >60 Normal >=60 [facility] Comment on above: Performed By: #### C MP, BNP, YESI #### [facility] [address] [place] [address] Dr. Emilie Stack EGFR-NON AF JORDANIAN >60 Normal >=60 [facility] Comment on above: Performed By: #### C MP, BNP, YESI #### [facility] [address] [place] [address] Dr. Emilie Stack Globulin (S) [Mass/Vol] 3.0 g/dL Normal [facility] Comment on above: Performed By: #### C MP, BNP, YESI #### [facility] [address] [place] [address] Dr. Emilie Stack Glucose [Mass/Vol] 179 mg/dL Critically high 74-106 [facility] Comment on above: Performed By: #### C MP BNP, YEIS #### [facility] [address] [place] [address] Dr. Emilie Stack Potassium [Moles/Vol] 3.8 mmol/L Normal 3.5-5.1 [facility] Comment on above: Performed By: #### C MP BNP, YESI #### [facility] [address] [place] [address] Dr. Emilie Stack Protein [Mass/Vol] 6.2 g/dL Critically low 6.4-8.[address] [facility] Comment on above: Performed By: #### C MP BNP, YESI #### [facility] [address] [place] [address] Dr. Emilie Stack Sodium [Moles/Vol] 139 mmol/L Normal 136-145 [facility] Comment on above: Performed By: #### C MP, BNP, YESI #### [facility] [address] [place] [address] Dr. Emilie Stack Urea nitrogen [Mass/Vol] 23.0 mg/dL Critically high 7.0-18.0 [facility] Comment on above: Performed By: #### C MP BNP, YESI #### [facility] [address] [place] [address] Dr. Emilie Stack Urea nitrogen/Creatinine [Mass ratio] 19.7 mg/mg Normal [facility] Comment on above: Performed By: #### C MP, BNP, YESI #### [facility] [address] [place] [address] Dr. Emilie Stack THEOPHYLLINEon 08-15-2022 THEOPHYLLINE 10.6 ug/mL Normal 10.0-20.0 [facility] Comment on above: Performed By: #### C MP, BNP, YESI #### [facility] [address] [place] [address] Dr. Emilie Stack BNPon 08-14-2022 Natriuretic peptide B (Bld) [Mass/Vol] 67.0 pg/mL Normal <=900.0 [facility] Comment on above: Performed By: #### T ROSSY, CMP, BNP #### [facility] [address] [place] [address] Dr. Emilie Stack CBC AUTO DIFFon 08-14-2022 BASO # 0.0 103/ul Normal 0.0-0.1 [facility] Comment on above: Performed By: #### C BC #### [facility] [address] [place] [address] Dr. Emilie Stack Basophils/100 WBC (Bld) 0.1 % Critically low 0.2-2.0 [facility] Comment on above: Performed By: #### C BC #### [facility] [address] [place] [address] Dr. Emilie Stack EO # 0.0 103/ul Normal 0.0-0.7 [facility] Comment on above: Performed By: #### C BC #### [facility] [address] [place] [address] Dr. Emilie Stack Eosinophils/100 WBC (Bld) 0.0 % Critically low 0.9-7.0 [facility] Comment on above: Performed By: #### C BC #### [facility] [address] [place] [address] Dr. Emilie Stack Erythrocyte distribution width (RBC) [Ratio] 14.5 % Normal 11.0-15.0 [facility] Comment on above: Performed By: #### C BC #### [facility] [address] [place] [address] Dr. Emilie Stack Hematocrit (Bld) [Volume fraction] 43.6 % Normal 42.0-54.0 [facility] Comment on above: Performed By: #### C BC #### [facility] [address] [place] [address] Dr. Emilie Stack Hemoglobin (Bld) [Mass/Vol] 14.7 g/dL Normal 14.0-18.0 [facility] Comment on above: Performed By: #### C BC #### [facility] [address] [place] [address] Dr. Emilie Stack IG # 0.11 10e3/ul Critically high 0.00-0.03 [facility] Comment on above: Performed By: #### C BC #### [facility] Laboratory [address] [place] [address] Dr. Emilie Stack IG % 0.8 % Critically high 0.0-0.5 [facility] Comment on above: Performed By: #### C BC #### [facility] [address] [place] [address] Dr. Emilie Stack LYMPH # 0.5 103/ul Critically low 1.2-3.[address] [facility] Comment on above: Performed By: #### C BC #### [facility] [address] [place] [address] Dr. Emilie Stack Lymphocytes/100 WBC (Bld) 3.4 % Critically low 20.5-60.0 [facility] Comment on above: Performed By: #### C BC #### [facility] [address] [place] [address] Dr. Emilie Stack MANUAL DIFF REQ NO Normal [facility] Comment on above: Performed By: #### C BC #### [facility] [address] [place] [address] Dr. Emilie Stack MCH (RBC) [Entitic mass] 29.8 pg Normal 25.9-34.0 [facility] Comment on above: Performed By: #### C BC #### [facility] [address] [place] [address] Dr. Emilie Stack MCHC (RBC) [Mass/Vol] 33.7 g/dL Normal 29.9-35.2 [facility] Comment on above: Performed By: #### C BC #### [facility] [address] [place] [address] Dr. Emilie Stack MCV (RBC) [Entitic vol] 88.3 fL Normal 80.0-94.0 [facility] Comment on above: Performed By: #### C BC #### [facility] [address] [place] [address] Dr. Emilie Stack MONO # 0.6 103/ul Normal 0.3-0.8 [facility] Comment on above: Performed By: #### C BC #### [facility] [address] [address] [address] Emilie Stack Monocytes/100 WBC (Bld) 4.3 % Normal 1.7-12.0 [facility] Comment on above: Performed By: #### C BC #### [facility] [address] [address] [address] Emilie Stack NEUT # 12.5 103/ul Critically high 1.4-6.5 [facility] Comment on above: Performed By: #### C BC #### [facility] [address] [address] [address] Emilie Stack Neutrophils/100 WBC (Bld) 91.4 % Critically high 43.0-75.0 [facility] Comment on above: Performed By: #### C BC #### [facility] [address] [place] [address] Dr. Emilie Stack Platelet mean volume (Bld) [Entitic vol] 8.5 fL Critically low 9.5-13.5 [facility] Comment on above: Performed By: #### C BC #### [facility] [address] [place] [address] Dr. Emilie Stack PLT 323 103/ul Normal 150-450 [facility] Comment on above: Performed By: #### C BC #### [facility] [address] [place] [address] Dr. Emilie Stack RBC 4.94 106/ul Normal 4.70-6.10 [facility] Comment on above: Performed By: #### C BC #### [facility] [address] [place] [address] Dr. Emilie Stack WBC 13.6 103/ul Critically high 4.0-11.0 [facility] Comment on above: Performed By: #### C BC #### [facility] [address] [place] [address] Dr. Emilie Stack PROF 14(COMP METB)on 023 Albumin [Mass/Vol] 3.6 g/dL Normal 3.4-5.0 [facility] Comment on above: Performed By: #### T ROSSY, CMP, BNP #### [facility] [address] [address] [address] Emilie Stack Albumin/Globulin [Mass ratio] 1.1 {ratio} Normal [facility] Comment on above: Performed By: #### T ROSSY, CMP, BNP #### [facility] [address] [address] [address] Emilie Stack ALP [Catalytic activity/Vol] 98 U/L Normal 46-116 [facility] Comment on above: Performed By: #### T ROSSY, CMP, BNP #### [facility] [address] [place] [address] Dr. Emilie Stack ALT [Catalytic activity/Vol] 27 U/L Normal 16-63 [facility] Comment on above: Performed By: #### T ROSSY, CMP, BNP #### [facility] [address] [place] [address] Dr. Emilie Stack Anion gap [Moles/Vol] 15.8 mmol/L Normal [facility] Comment on above: Performed By: #### T ROSSY, CMP, BNP #### [facility] [address] [place] [address] Dr. Emilie Stack AST [Catalytic activity/Vol] 27 U/L Normal 15-37 [facility] Comment on above: Performed By: #### T ROSSY, CMP, BNP #### [facility] [address] [place] [address] Dr. Emilie Stack Bilirubin [Mass/Vol] 0.3 mg/dL Normal 0.2-1.0 [facility] Comment on above: Performed By: #### T ROSSY, CMP, BNP #### [facility] [address] [place] [address] Dr. Emilie Stack Calcium [Mass/Vol] 8.7 mg/dL Normal 8.5-10.1 [facility] Comment on above: Performed By: #### T ROSSY, CMP, BNP #### [facility] [address] [place] [address] Dr. Emilie Stack Chloride [Moles/Vol] 102 mmol/L Normal 98-107 [facility] Comment on above: Performed By: #### Patience BLAIR CMP, BNP #### [facility] [address] [address] [address] Emilie Stack CO2 [Moles/Vol] 23.0 mmol/L Normal 21.0-32.0 [facility] Comment on above: Performed By: #### Patience BLAIR CMP, BNP #### [facility] [address] [address] [address] Emilie Stack Creatinine [Mass/Vol] 1.27 mg/dL Normal 0.70-1.30 [facility] Comment on above: Performed By: #### Patience BLAIR CMP, BNP #### [facility] [address] [place] [address] Dr. Emilie Stack EGFR-AF JORDANIAN >60 Normal >=60 [facility] Comment on above: Performed By: #### Patience BLAIR CMP, BNP #### [facility] [address] [place] [address] Dr. Emilie Stack EGFR-NON AF JORDANIAN 56 mL/min/1.73m2 Critically low >=60 [facility] Comment on above: Performed By: #### Patience BLAIR CMP, BNP #### [facility] [address] [place] [address] Dr. Emilie Stakc Globulin (S) [Mass/Vol] 3.3 g/dL Normal [facility] Comment on above: Performed By: #### Patience BLAIR CMP, BNP #### [facility] [address] [place] [address] Dr. Emilie Stack Glucose [Mass/Vol] 146 mg/dL Critically high 74-106 [facility] Comment on above: Performed By: #### Patience BLAIR CMP, BNP #### [facility] [address] [place] [address] Dr. Emilie Stack Potassium [Moles/Vol] 3.8 mmol/L Normal 3.5-5.1 [facility] Comment on above: Performed By: #### T ROSSY, CMP, BNP #### [facility] [address] [place] [address] Dr. Emilie Stack Protein [Mass/Vol] 6.9 g/dL Normal 6.4-8.2 [facility] Comment on above: Performed By: #### T ROSSY, CMP, BNP #### [facility] [address] [place] [address] Dr. Emilie Stack Sodium [Moles/Vol] 137 mmol/L Normal 136-145 [facility] Comment on above: Performed By: #### T ROSSY, CMP, BNP #### [facility] [address] [place] [address] Dr. Emilie Stack Urea nitrogen [Mass/Vol] 22.0 mg/dL Critically high 7.0-18.0 [facility] Comment on above: Performed By: #### T ROSSY CMP, BNP #### [facility] [address] [place] [address] Dr. Emilie Stack Urea nitrogen/Creatinine [Mass ratio] 17.3 mg/mg Normal [facility] Comment on above: Performed By: #### T ROSSY CMP, BNP #### [facility] [address] [place] [address] Dr. Emilie Stack THEOPHYLLINEon 08-14-2022 THEOPHYLLINE 10.3 ug/mL Normal 10.0-20.0 [facility] Comment on above: Performed By: #### T ROSSY CMP, BNP #### [facility] [address] [place] [address] Dr. Emilie Stack BNPon 08-13-2022 Natriuretic peptide B (Bld) [Mass/Vol] 82.0 pg/mL Normal <=900.0 [facility] Comment on above: Performed By: #### C MP, BNP, YESI #### [facility] [address] [place] [address] Dr. Emilie Stack CBC AUTO DIFFon 08-13-2022 BASO # 0.0 103/ul Normal 0.0-0.1 [facility] Comment on above: Performed By: #### C MP, BNP, YESI #### [facility] [address] [place] [address] Dr. Emilie Stack Basophils/100 WBC (Bld) 0.1 % Critically low 0.2-2.0 [facility] Comment on above: Performed By: #### C MP, BNP, YESI #### [facility] [address] [place] [address] Dr. Emilie Stack EO # 0.0 103/ul Normal 0.0-0.7 [facility] Comment on above: Performed By: #### C MP, BNP, YESI #### [facility] [address] [place] [address] Dr. Emilie Stack Eosinophils/100 WBC (Bld) 0.0 % Critically low 0.9-7.0 [facility] Comment on above: Performed By: #### C MP, BNP, YESI #### [facility] [address] [place] [address] Dr. Emilie Stack Erythrocyte distribution width (RBC) [Ratio] 14.7 % Normal 11.0-15.0 [facility] Comment on above: Performed By: #### C MP, BNP, YESI #### [facility] [address] [place] [address] Dr. Emilie Stack Hematocrit (Bld) [Volume fraction] 40.7 % Critically low 42.0-54.0 [facility] Comment on above: Performed By: #### C MP, BNP, YESI #### [facility] [address] [place] [address] Dr. Emilie Stack Hemoglobin (Bld) [Mass/Vol] 13.3 g/dL Critically low 14.0-18.0 [facility] Comment on above: Performed By: #### C MP, BNP, YESI #### [facility] [address] [place] [address] Dr. Emilie Stack IG # 0.14 10e3/ul Critically high 0.00-0.03 [facility] Comment on above: Performed By: #### C MP, BNP, YESI #### [facility] [address] [place] [address] Dr. Emilie Stack IG % 0.8 % Critically high 0.0-0.5 [facility] Comment on above: Performed By: #### C MP, BNP, YESI #### [facility] [address] [place] [address] Dr. Emilie Stack LYMPH # 0.8 103/ul Critically low 1.2-3.[address] [facility] Comment on above: Performed By: #### C MP, BNP, YESI #### [facility] [address] [place] [address] Dr. Emilie Stack Lymphocytes/100 WBC (Bld) 4.5 % Critically low 20.5-60.0 [facility] Comment on above: Performed By: #### C MP, BNP, YESI #### [facility] [address] [place] [address] Dr. Emilie Stack MANUAL DIFF REQ NO Normal [facility] Comment on above: Performed By: #### C MP, BNP, YESI #### [facility] [address] [place] [address] Dr. Emilie Stack MCH (RBC) [Entitic mass] 29.7 pg Normal 25.9-34.0 [facility] Comment on above: Performed By: #### C MP, BNP, YESI #### [facility] [address] [place] [address] Dr. Emilie Stack MCHC (RBC) [Mass/Vol] 32.7 g/dL Normal 29.9-35.2 [facility] Comment on above: Performed By: #### C MP, BNP, YESI #### [facility] [address] [place] [address] Dr. Emilie Stack MCV (RBC) [Entitic vol] 90.8 fL Normal 80.0-94.0 [facility] Comment on above: Performed By: #### C MP, BNP, YESI #### [facility] [address] [place] [address] Dr. Emilie Stack MONO # 0.6 103/ul Normal 0.3-0.8 [facility] Comment on above: Performed By: #### C MP, BNP, YESI #### [facility] [address] [address] [address] Emilie Stack Monocytes/100 WBC (Bld) 3.3 % Normal 1.7-12.0 [facility] Comment on above: Performed By: #### C MP, BNP, YESI #### [facility] [address] [place] [address] Dr. Emilie Stack NEUT # 15.9 103/ul Critically high 1.4-6.5 [facility] Comment on above: Performed By: #### C MP, BNP, YESI #### [facility] [address] [place] [address] Dr. Emilie Stack Neutrophils/100 WBC (Bld) 91.3 % Critically high 43.0-75.0 [facility] Comment on above: Performed By: #### C MP, BNP, YESI #### [facility] [address] [address] [address] Emilie Stack Platelet mean volume (Bld) [Entitic vol] 8.9 fL Critically low 9.5-13.5 [facility] Comment on above: Performed By: #### C MP, BNP, YESI #### [facility] [address] [place] [address] Dr. Emilie Stack PLT 303 103/ul Normal 150-450 [facility] Comment on above: Performed By: #### C MP, BNP, YESI #### [facility] [address] [place] [address] Dr. Emilie Stack RBC 4.48 106/ul Critically low 4.70-6.10 [facility] Comment on above: Performed By: #### C MP, BNP, YESI #### [facility] [address] [place] [address] Dr. Emilie Stack WBC 17.4 103/ul Critically high 4.0-11.0 [facility] Comment on above: Performed By: #### C MP, BNP, YESI #### [facility] [address] [place] [address] Dr. Emilie Stack PROF 14(COMP METB)on 023 Albumin [Mass/Vol] 3.2 g/dL Critically low 3.4-5.0 [facility] Comment on above: Performed By: #### C MP, BNP, YESI #### [facility] [address] [address] [address] Emilie Stack Albumin/Globulin [Mass ratio] 1.0 {ratio} Normal [facility] Comment on above: Performed By: #### C MP, BNP, YESI #### [facility] [address] [address] [address] Emilie Stack ALP [Catalytic activity/Vol] 100 U/L Normal 46-116 [facility] Comment on above: Performed By: #### C MP, BNP, YESI #### [facility] [address] [place] [address] Dr. Emilie Stack ALT [Catalytic activity/Vol] 22 U/L Normal 16-63 [facility] Comment on above: Performed By: #### C MP, BNP, YESI #### [facility] [address] [place] [address] Dr. Emilie Stack Anion gap [Moles/Vol] 13.4 mmol/L Normal [facility] Comment on above: Performed By: #### C MP, BNP, YESI #### [facility] [address] [place] [address] Dr. Emilie Stack AST [Catalytic activity/Vol] 13 U/L Critically low 15-37 [facility] Comment on above: Performed By: #### C MP, BNP, YESI #### [facility] [address] [place] [address] Dr. Emilie Stack Bilirubin [Mass/Vol] 0.3 mg/dL Normal 0.2-1.0 [facility] Comment on above: Performed By: #### C MP, BNP, YESI #### [facility] [address] [place] [address] Dr. Emilie Stack Calcium [Mass/Vol] 8.6 mg/dL Normal 8.5-10.1 [facility] Comment on above: Performed By: #### C MP, BNP, YESI #### [facility] [address] [address] [address] Emilie Stack Chloride [Moles/Vol] 102 mmol/L Normal 98-107 [facility] Comment on above: Performed By: #### C MP, BNP, YESI #### [facility] [address] [address] [address] Emilie Stack CO2 [Moles/Vol] 26.7 mmol/L Normal 21.0-32.0 [facility] Comment on above: Performed By: #### C MP, BNP, YESI #### [facility] [address] [address] [address] Emilie Stack Creatinine [Mass/Vol] 1.23 mg/dL Normal 0.70-1.30 [facility] Comment on above: Performed By: #### C MP, BNP, YESI #### [facility] [address] [address] [address] Emilie Stack EGFR-AF JORDANIAN >60 Normal >=60 [facility] Comment on above: Performed By: #### C MP, BNP, YESI #### [facility] [address] [address] [address] Emilie Stack EGFR-NON AF JORDANIAN 58 mL/min/1.73m2 Critically low >=60 [facility] Comment on above: Performed By: #### C MP, BNP, YESI #### [facility] [address] [address] [address] Emilie Stack Globulin (S) [Mass/Vol] 3.1 g/dL Normal [facility] Comment on above: Performed By: #### C MP, BNP, YESI #### [facility] [address] [address] [address] Emilie Stack Glucose [Mass/Vol] 138 mg/dL Critically high 74-106 [facility] Comment on above: Performed By: #### C MP, BNP, YESI #### [facility] [address] [address] [address] Emilie Stack Potassium [Moles/Vol] 4.1 mmol/L Normal 3.5-5.1 [facility] Comment on above: Performed By: #### C MP, BNP, YESI #### [facility] [address] [place] [address] Dr. Emilie Stack Protein [Mass/Vol] 6.3 g/dL Critically low 6.4-8.2 [facility] Comment on above: Performed By: #### C MP, BNP, YESI #### [facility] [address] [place] [address] Dr. Emilie Stack Sodium [Moles/Vol] 138 mmol/L Normal 136-145 [facility] Comment on above: Performed By: #### C MP BNP, YESI #### [facility] [address] [place] [address] Dr. Emilie Stack Urea nitrogen [Mass/Vol] 21.0 mg/dL Critically high 7.0-18.0 [facility] Comment on above: Performed By: #### C MP BNP, YESI #### [facility] [address] [place] [address] Dr. Emilie Stack Urea nitrogen/Creatinine [Mass ratio] 17.1 mg/mg Normal [facility] Comment on above: Performed By: #### C MP, BNP, YESI #### [facility] [address] [place] [address] Dr. Emilie Stack THEOPHYLLINEon 08-13-2022 THEOPHYLLINE 11.5 ug/mL Normal 10.0-20.0 [facility] Comment on above: Performed By: #### C MP, BNP, YESI #### [facility] [address] [place] [address] Dr. Emilie Stack BNPon 08-12-2022 Natriuretic peptide B (Bld) [Mass/Vol] 49.0 pg/mL Normal <=900.0 [facility] Comment on above: Performed By: #### C MP, BNP, YESI #### [facility] [address] [place] [address] Dr. Emilie Stack CBC W MANUAL DIFFon 08-12-19 23 ATYPICAL LYMPH # 0.08 103/ul Normal [facility] Comment on above: Performed By: #### T ROSSY, CMP, BNP #### [facility] [address] [address] [address] Emilie Stack ATYPICAL LYMPH % 1 % Normal [facility] Comment on above: Performed By: #### T ROSSY, CMP, BNP #### [facility] [address] [address] [address] Emilie Stack BAND # 0.0 103/ul Normal 0.0-0.3 [facility] Comment on above: Performed By: #### T ROSSY, CMP, BNP #### [facility] [address] [address] [address] Emilie Stack BAND % 0 % Normal 0-5 [facility] Comment on above: Performed By: #### T ROSSY, CMP, BNP #### [facility] [address] [place] [address] Dr. Emilie Stack BASOM # 0.00 103/ul Normal 0.00-0.10 [facility] Comment on above: Performed By: #### T ROSSY, CMP, BNP #### [facility] [address] [place] [address] Dr. Emilie Stack BASOM % 0.0 % Critically low 0.2-2.0 [facility] Comment on above: Performed By: #### T ROSSY, CMP, BNP #### [facility] [address] [place] [address] Dr. Emilie Stack BLAST # Normal [facility] Comment on above: Performed By: #### T ROSSY, CMP, BNP #### [facility] [address] [place] [address] Dr. Emilie Stack BLAST % Normal [facility] Comment on above: Performed By: #### T ROSSY, CMP, BNP #### [facility] [address] [place] [address] Dr. Emilie Stack CORRECTED WBC Normal 4.0-11.0 [facility] Comment on above: Performed By: #### T ROSSY, CMP, BNP #### [facility] [address] [place] [address] Dr. Emilie Stack EOS # 0.00 103/ul Normal 0.00-0.70 [facility] Comment on above: Performed By: #### T ROSSY CMP, BNP #### [facility] [address] [address] [address] Emilie Stack EOS% 0.0 % Critically low 0.9-7.[address] [facility] Comment on above: Performed By: #### T ROSSY CMP, BNP #### [facility] [address] [address] [address] Emilie Stack HCT 41.1 % Critically low 42.0-54.0 [facility] Comment on above: Performed By: #### Patience BLAIR CMP, BNP #### [facility] [address] [address] [address] Emilie Stack HGB 13.5 g/dl Critically low 14.0-18.[address] [facility] Comment on above: Performed By: #### Patience BLAIR CMP, BNP #### [facility] [address] [place] [address] Dr. Emilie Stack LYMPHM # 0.08 103/ul Critically low 1.20-3.80 [facility] Comment on above: Performed By: #### Patience BLAIR CMP, BNP #### [facility] [address] [place] [address] Dr. Emilie Stack LYMPHM% 1.0 % Critically low 20.5-60.0 [facility] Comment on above: Performed By: #### T ROSSY CMP, BNP #### [facility] [address] [place] [address] Dr. Emilie Stack MCH 30.2 pg Normal 25.9-34.0 [facility] Comment on above: Performed By: #### T ROSSY CMP, BNP #### [facility] [address] [place] [address] Dr. Emilie Stack MCHC 32.8 g/dl Normal 29.9-35.2 [facility] Comment on above: Performed By: #### T ROSSY CMP, BNP #### [facility] [address] [address] [address] Emilie Stack MCV 91.9 fL Normal 80.0-94.0 [facility] Comment on above: Performed By: #### T ROSSY, CMP, BNP #### [facility] [address] [place] [address] Dr. Emilie Stack METAMYELOCYTE # Normal [facility] Comment on above: Performed By: #### T ROSSY, CMP, BNP #### [facility] [address] [address] [address] Emilie Stack METAMYELOCYTE % Normal [facility] Comment on above: Performed By: #### T ROSSY, CMP, BNP #### [facility] [address] [place] [address] Dr. Emilie Stack MONOM# 0.00 103/ul Critically low 0.30-0.80 [facility] Comment on above: Performed By: #### T ROSSY CMP, BNP #### [facility] [address] [place] [address] Dr. Emilie Stack MONOM% 0.0 % Critically low 1.7-12.[address] [facility] Comment on above: Performed By: #### T ROSSY CMP, BNP #### [facility] [address] [place] [address] Dr. Emilie Stack MPV 8.9 fL Critically low 9.5-13.[address] [facility] Comment on above: Performed By: #### T ROSSY, CMP, BNP #### [facility] [address] [place] [address] Dr. Emilie Stack MYELOCYTE # Normal [facility] Comment on above: Performed By: #### T ROSSY, CMP, BNP #### [facility] [address] [place] [address] Dr. Emilie Stack MYELOCYTE % Normal [facility] Comment on above: Performed By: #### T ROSSY, CMP, BNP #### [facility] [address] [place] [address] Dr. Emilie Stack NRBC Normal [facility] Comment on above: Performed By: #### T ROSSY, CMP, BNP #### [facility] [address] [place], [place] [address] Dr. Emilie Stack PLT 263 103/ul Normal 150-450 [facility] Comment on above: Performed By: #### T ROSSY, CMP, BNP #### [facility] [address] [place], [place] [address] Dr. Emilie Stack RBC 4.47 106/ul Critically low 4.70-6.10 [facility] Comment on above: Performed By: #### T ROSSY, CMP, BNP #### [facility] [address] [place] [address] [address] Emilie Stack RDW 14.4 % Normal 11.0-15.0 [facility] Comment on above: Performed By: #### T ROSSY, CMP, BNP #### [facility] [address] [address] [address] Emilie Stack SEG # 7.64 103/ul Critically high 1.40-6.50 [facility] Comment on above: Performed By: #### T ROSSY, CMP, BNP #### [facility] [address] [address] [address] Emilie Stack SEG % 98.0 % Critically high 43.0-75.0 [facility] Comment on above: Performed By: #### T ROSSY, CMP, BNP #### [facility] [id number] Emilie Stack WBC 7.8 103/ul Normal 4.0-11.0 [facility] Comment on above: Performed By: #### T ROSSY, CMP, BNP #### [facility] [address] [place], [place] [address] Dr. Emilie Stack CULTURE SPUTUMon 08-12-2022 CULTURE SPUTUM Culture Observations : NORMAL RESPIRATORY TNAO. Normal [facility] Comment on above: Performed By: #### T ROSSY, CMP, BNP #### [facility] [address] [address] [address] Emilie Stack PROF 14(COMP METB)on 023 Albumin [Mass/Vol] 3.1 g/dL Critically low 3.4-5.0 [facility] Comment on above: Performed By: #### C MP, BNP, YESI #### [facility] [address] [place] [address] Dr. Emilie Stack Albumin/Globulin [Mass ratio] 1.0 {ratio} Normal [facility] Comment on above: Performed By: #### C MP, BNP, YESI #### [facility] [address] [place] [address] Dr. Emilie Stack ALP [Catalytic activity/Vol] 106 U/L Normal 46-116 [facility] Comment on above: Performed By: #### C MP, BNP, YESI #### [facility] [address] [place] [address] Dr. Emilie Stack ALT [Catalytic activity/Vol] 23 U/L Normal 16-63 [facility] Comment on above: Performed By: #### C MP, BNP, YESI #### [facility] [address] [place] [address] Dr. Emilie Stack Anion gap [Moles/Vol] 11.5 mmol/L Normal [facility] Comment on above: Performed By: #### C MP, BNP, YESI #### [facility] [address] [place] [address] Dr. Emilie Stack AST [Catalytic activity/Vol] 11 U/L Critically low 15-37 [facility] Comment on above: Performed By: #### C MP, BNP, YESI #### [facility] [address] [place] [address] Dr. Emilie Stack Bilirubin [Mass/Vol] 0.2 mg/dL Normal 0.2-1.0 [facility] Comment on above: Performed By: #### C MP, BNP, YESI #### [facility] [address] [place] [address] Dr. Emilie Stack Calcium [Mass/Vol] 8.6 mg/dL Normal 8.5-10.1 [facility] Comment on above: Performed By: #### C MP, BNP, YESI #### [facility] [address] [place] [address] Dr. Emilie Stack Chloride [Moles/Vol] 102 mmol/L Normal 98-107 [facility] Comment on above: Performed By: #### C MP, BNP, YESI #### [facility] [address] [place] [address] Dr. Emilie Stack CO2 [Moles/Vol] 27.3 mmol/L Normal 21.0-32.0 [facility] Comment on above: Performed By: #### C MP, BNP, YESI #### [facility] [address] [place] [address] Dr. Emilie Stack Creatinine [Mass/Vol] 1.04 mg/dL Normal 0.70-1.30 [facility] Comment on above: Performed By: #### C MP, BNP, YESI #### [facility] [address] [place] [address] Dr. Emilie Stack EGFR-AF JORDANIAN >60 Normal >=60 [facility] Comment on above: Performed By: #### C MP, BNP, YESI #### [facility] [address] [place] [address] Dr. Emilie Stack EGFR-NON AF JORDANIAN >60 Normal >=60 [facility] Comment on above: Performed By: #### C MP, BNP, YESI #### [facility] [address] [place] [address] Dr. Emilie Stack Globulin (S) [Mass/Vol] 3.0 g/dL Normal [facility] Comment on above: Performed By: #### C MP, BNP, YESI #### [facility] [address] [place] [address] Dr. Emilie Stack Glucose [Mass/Vol] 207 mg/dL Critically high 74-106 T [facility] Comment on above: Performed By: #### C MP, BNP, YESI #### [facility] [address] [place] [address] Dr. Emilie Stack Potassium [Moles/Vol] 3.8 mmol/L Normal 3.5-5.1 [facility] Comment on above: Performed By: #### C MP, BNP, YESI #### [facility] [address] [address] [address] Emilie Stack Protein [Mass/Vol] 6.1 g/dL Critically low 6.4-8.2 Th e [facility] Comment on above: Performed By: #### C MP, BNP, EYSI #### [facility] [address] [address] [address] Emilie Stack Sodium [Moles/Vol] 137 mmol/L Normal 136-145 [facility] Comment on above: Performed By: #### C MP, BNP, YESI #### [facility] [address] [address] [address] Emilie Stack Urea nitrogen [Mass/Vol] 12.0 mg/dL Normal 7.0-18.0 [facility] Comment on above: Performed By: #### C MP, BNP, YESI #### [facility] [address] [address] [address] Emilie Stack Urea nitrogen/Creatinine [Mass ratio] 11.5 mg/mg Normal [facility] Comment on above: Performed By: #### C MP, BNP, YESI #### [facility] [address] [address] [address] Emilie Stack SPUTUM GRAM STAINon 08-12-19 COMMENTS Normal [facility] Comment on above: Performed By: #### C MP, BNP, YESI #### [facility] [address] [address] [address] Emilie Stack DIPHTHEROIDS Normal [facility] Comment on above: Performed By: #### C MP, BNP, YESI #### [facility] [address] [place] [address] Dr. Emilie Stack EPITHELIALS <25 Normal [facility] Comment on above: Performed By: #### C MP, BNP, YESI #### [facility] [address] [place] [address] Dr. Emilie Stack FUNGAL ELEMENTS Normal [facility] Comment on above: Performed By: #### C MP, BNP, YESI #### [facility] [address] [address] [address] Emilie Stack GRAM NEG BACILLI Normal [facility] Comment on above: Performed By: #### C MP, BNP, YESI #### [facility] [address] [address] [address] Emilie Stack GRAM NEG DIPPLOCOCCI Normal [facility] Comment on above: Performed By: #### C MP, BNP, YESI #### [facility] [address] [address] [address] Emilie JARAMILLO POS BACILLI RARE Normal [facility] Comment on above: Performed By: #### C MP, BNP, YESI #### [facility] [address] [address] [address] Emilie Stack GRAM POSITIVE COCCI MODERATE Normal [facility] Comment on above: Performed By: #### C MP, BNP, YESI #### [facility] [address] [place] [address] Dr. Emilie Stack WBC (Bld) [#/Vol] 10*3/uL Normal [facility] Comment on above: Performed By: #### C MP, BNP, YESI #### [facility] [address] [place] [address] Dr. Emilie Stack T3, TOTAL (TRIIODOTHYRONINE) on 08-12-2022 T3, TOTAL 92 ng/dL Normal 71-180 [facility] Comment on above: Performed By: #### T ROSSY, CMP, BNP #### [facility] [address] [place] [address] Dr. Emilie Stack THEOPHYLLINEon 08-12-2022 THEOPHYLLINE 10.3 ug/mL Normal 10.0-20.0 [facility] Comment on above: Performed By: #### C MP, BNP, YESI #### [facility] [address] [place] [address] Dr. Emilie Stack BNPon 08-11-2022 Natriuretic peptide B (Bld) [Mass/Vol] 79.0 pg/mL Normal <=900.0 [facility] Comment on above: Performed By: #### C MP, BNP, YESI #### [facility] [address] [place] [address] Dr. Emilie Stack CARDIAC GATITO 3-6on 3 CK [Catalytic activity/Vol] 66 U/L Normal 39-308 [facility] Comment on above: Performed By: #### T ROSSY, CMP, BNP #### [facility] [address] [place] [address] Dr. Emilie Stack CK.MB [Mass/Vol] 1.24 ng/mL Normal <=3.60 [facility] Comment on above: Performed By: #### T ROSSY, CMP, BNP #### [facility] [address] [place] [address] Dr. Emilie Stack HSTROP 5.7 pg/mL Normal 4.0-76.1 [facility] Comment on above: Result Comment: CUT- OFF POINTS HAVE BEEN ESTABLISHED BASED ON THE FOURTH UNIVERSAL DEFINITIONS OF MYOCARDIAL INFARCTION. THE UPPER REFERENCE LIMIT (URL) OF TROPONIN, DEFINED THE 99TH PERCENTILE OF cTnI DISTRIBUTION IN A REFERENCE POPULATION, HAS BEEN CONFIRMED THE DECISION THRESHOLD FOR MT DIAGNOSIS. Performed By: #### T ROSSY, CMP, BNP #### [facility] [address] [place] [address] Dr. Emilie Stack CBC AUTO DIFFon 08-11-2022 BASO # 0.0 103/ul Normal 0.0-0.1 [facility] Comment on above: Performed By: #### C MP, BNP, YESI #### [facility] [address] [place] [address] Dr. Emilie Stack Basophils/100 WBC (Bld) 0.6 % Normal 0.2-2.0 [facility] Comment on above: Performed By: #### C MP, BNP, YESI #### [facility] [address] [place] [address] Dr. Emilie Stack EO # 0.1 103/ul Normal 0.0-0.7 [facility] Comment on above: Performed By: #### C MP, BNP, YESI #### [facility] [address] [place] [address] Dr. Emilie Stack Eosinophils/100 WBC (Bld) 1.4 % Normal 0.9-7.0 [facility] Comment on above: Performed By: #### C MP, BNP, YESI #### [facility] [address] [place] [address] Dr. Emilie Stack Erythrocyte distribution width (RBC) [Ratio] 14.8 % Normal 11.0-15.0 [facility] Comment on above: Performed By: #### C MP, BNP, YESI #### [facility] [address] [place] [address] Dr. Emilie Stack Hematocrit (Bld) [Volume fraction] 43.5 % Normal 42.0-54.0 [facility] Comment on above: Performed By: #### C MP, BNP, YESI #### [facility] [address] [place] [address] Dr. Emilie Stack Hemoglobin (Bld) [Mass/Vol] 14.2 g/dL Normal 14.0-18.0 [facility] Comment on above: Performed By: #### C MP, BNP, YESI #### [facility] [address] [place] [address] Dr. Emilie Stack IG # 0.06 10e3/ul Critically high 0.00-0.03 [facility] Comment on above: Performed By: #### C MP, BNP, YESI #### [facility] [address] [place] [address] Dr. Emilie Stack IG % 0.8 % Critically high 0.0-0.5 [facility] Comment on above: Performed By: #### C MP, BNP, YESI #### [facility] [address] [place] [address] Dr. Emilie Stack LYMPH # 1.2 103/ul Normal 1.2-3.8 [facility] Comment on above: Performed By: #### C MP, BNP, YESI #### [facility] [address] [place] [address] Dr. Emilie Stack Lymphocytes/100 WBC (Bld) 16.8 % Critically low 20.5-60.0 [facility] Comment on above: Performed By: #### C MP, BNP, YESI #### [facility] [address] [address] [address] Emilie Stack MANUAL DIFF REQ NO Normal [facility] Comment on above: Performed By: #### C MP, BNP, YESI #### [facility] [address] [place] [address] Dr. Emilie Stack MCH (RBC) [Entitic mass] 30.1 pg Normal 25.9-34.0 [facility] Comment on above: Performed By: #### C MP, BNP, YESI #### [facility] [address] [place] [address] Dr. Emilie Stack MCHC (RBC) [Mass/Vol] 32.6 g/dL Normal 29.9-35.2 [facility] Comment on above: Performed By: #### C MP, BNP, YESI #### [facility] [address] [place] [address] Dr. Emilie Stack MCV (RBC) [Entitic vol] 92.2 fL Normal 80.0-94.0 [facility] Comment on above: Performed By: #### C MP, BNP, YESI #### [facility] [address] [place] [address] Dr. Emilie Stack MONO # 1.0 103/ul Critically high 0.3-0.8 [facility] Comment on above: Performed By: #### C MP, BNP, YESI #### [facility] [address] [place] [address] Dr. Emilie Stack Monocytes/100 WBC (Bld) 14.2 % Critically high 1.7-12.0 [facility] Comment on above: Performed By: #### C MP, BNP, YESI #### [facility] [address] [place] [address] Dr. Emilie Stack NEUT # 4.8 103/ul Normal 1.4-6.5 [facility] Comment on above: Performed By: #### C MP, BNP, YESI #### [facility] [address] [place] [address] Dr. Emilie Stack Neutrophils/100 WBC (Bld) 66.2 % Normal 43.0-75.0 [facility] Comment on above: Performed By: #### C MP, BNP, YESI #### [facility] [address] [place] [address] Dr. Emilie Stack Platelet mean volume (Bld) [Entitic vol] 8.4 fL Critically low 9.5-13.5 [facility] Comment on above: Performed By: #### C MP, BNP, YESI #### [facility] [address] [place] [address] Dr. Emilie Stack PLT 277 103/ul Normal 150-450 [facility] Comment on above: Performed By: #### C MP, BNP, YESI #### [facility] [address] [place] [address] Dr. Emilie Stack RBC 4.72 106/ul Normal 4.70-6.10 [facility] Comment on above: Performed By: #### C MP, BNP, YESI #### [facility] [address] [place] [address] Dr. Emilie Stack WBC 7.3 103/ul Normal 4.0-11.0 [facility] Comment on above: Performed By: #### C MP, BNP, YESI #### [facility] [address] [place] [address] Dr. Emilie Stack CULTURE URINEon 08-11-2022 CULTURE URINE Culture Observations : NO GROWTH. Normal [facility] Comment on above: Performed By: #### T ROSSY, CMP, BNP #### [facility] [address] [place] [address] Dr. Emilie Stack PROF 14(COMP METB)on 023 Albumin [Mass/Vol] 3.2 g/dL Critically low 3.4-5.[address] [facility] Comment on above: Performed By: #### C MP, BNP, YESI #### [facility] [address] [place] [address] Dr. Emilie Stack Albumin/Globulin [Mass ratio] 1.0 {ratio} Normal [facility] Comment on above: Performed By: #### C MP, BNP, YESI #### [facility] [address] [address] [address] Emilie Stack ALP [Catalytic activity/Vol] 117 U/L Critically high 46-116 [facility] Comment on above: Performed By: #### C MP, BNP, YESI #### [facility] [address] [address] [address] Emilie Stack ALT [Catalytic activity/Vol] 24 U/L Normal 16-63 [facility] Comment on above: Performed By: #### C MP, BNP, YESI #### [facility] [address] [address] [address] Emilie Stack Anion gap [Moles/Vol] 8.8 mmol/L Normal [facility] Comment on above: Performed By: #### C MP, BNP, YESI #### [facility] [address] [place] [address] Dr. Emilie Stack AST [Catalytic activity/Vol] 13 U/L Critically low 15-37 [facility] Comment on above: Performed By: #### C MP, BNP, YESI #### [facility] [address] [address] [address] Emilie Stack Bilirubin [Mass/Vol] 0.3 mg/dL Normal 0.2-1.0 [facility] Comment on above: Performed By: #### C MP, BNP, YESI #### [facility] [address] [place] [address] Dr. Emilie Stack Calcium [Mass/Vol] 8.3 mg/dL Critically low 8.5-10.[address] [facility] Comment on above: Performed By: #### C MP, BNP, YESI #### [facility] [address] [address] [address] Emilie Stack Chloride [Moles/Vol] 104 mmol/L Normal 98-107 [facility] Comment on above: Performed By: #### C MP, BNP, YESI #### [facility] [address] [address] [address] Emilie Stack CO2 [Moles/Vol] 30.7 mmol/L Normal 21.0-32.0 [facility] Comment on above: Performed By: #### C MP, BNP, YESI #### [facility] [address] [address] [address] Emilie Stack Creatinine [Mass/Vol] 1.08 mg/dL Normal 0.70-1.30 [facility] Comment on above: Performed By: #### C MP, BNP, YESI #### [facility] [address] [place] [address] Dr. Emilie Stack EGFR-AF JORDANIAN >60 Normal >=60 [facility] Comment on above: Performed By: #### C MP, BNP, YESI #### [facility] [address] [place] [address] Dr. Emilie Stack EGFR-NON AF JORDANIAN >60 Normal >=60 [facility] Comment on above: Performed By: #### C MP, BNP, YESI #### [facility] [address] [place] [address] Dr. Emilie Stack Globulin (S) [Mass/Vol] 3.1 g/dL Normal [facility] Comment on above: Performed By: #### C MP, BNP, YESI #### [facility] [address] [place] [address] Dr. Emilie Stack Glucose [Mass/Vol] 76 mg/dL Normal 74-106 [facility] Comment on above: Performed By: #### C MP, BNP, YESI #### [facility] [address] [place] [address] Dr. Emilie Stack Potassium [Moles/Vol] 3.5 mmol/L Normal 3.5-5.1 [facility] Comment on above: Performed By: #### C MP, BNP, YESI #### [facility] [address] [place] [address] Dr. Emilie Stack Protein [Mass/Vol] 6.3 g/dL Critically low 6.4-8.[address] [facility] Comment on above: Performed By: #### C MP, BNP, YESI #### [facility] [address] [place] [address] Dr. Emilie Stack Sodium [Moles/Vol] 140 mmol/L Normal 136-145 [facility] Comment on above: Performed By: #### C MP, BNP, YESI #### [facility] [address] [place] [address] Dr. Emilie Stack Urea nitrogen [Mass/Vol] 10.0 mg/dL Normal 7.0-18.0 [facility] Comment on above: Performed By: #### C MP, BNP, YESI #### [facility] [address] [place] [address] Dr. Emilie Stack Urea nitrogen/Creatinine [Mass ratio] 9.3 mg/mg Normal [facility] Comment on above: Performed By: #### C MP, BNP, YESI #### [facility] [address] [place] [address] Dr. Emilie Stack THEOPHYLLINEon 08-11-2022 THEOPHYLLINE 7.7 ug/mL Critically low 10.0-20.0 [facility] Comment on above: Performed By: #### C MP, BNP, YESI #### [facility] [address] [place] [address] Dr. Emilie Stack UA RANDOM W/MICROSCOPICon BACTERIA NONE SEEN Normal NONE SEEN [facility] Comment on above: Performed By: #### T ROSSY CMP, BNP #### [facility] [address] [place] [address] Dr. Emilie Stack Bilirubin Ql (U) Negative Normal NEGATIVE [facility] Comment on above: Performed By: #### T ROSSY CMP, BNP #### [facility] [address] [place] [address] Dr. Emilie Stack CAST NONE SEEN Normal NONE SEEN [facility] Comment on above: Performed By: #### T ROSYS CMP, BNP #### [facility] [address] [place] [address] Dr. Emilie Stack Clarity (U) CLEAR Normal CLEAR [facility] Comment on above: Performed By: #### T ROSSY CMP, BNP #### [facility] [address] [place] [address] Dr. Emilie Stack Color (U) LT. YELLOW Normal YELLOW [facility] Comment on above: Performed By: #### T ROSSY, CMP, BNP #### [facility] [address] [address] [address] Emilie Stack Crystals LM Nom (Urine sed) NONE SEEN Normal NONE SEEN [facility] Comment on above: Performed By: #### T ROSSY, CMP, BNP #### [facility] [address] [address] [address] Emilie Stack Epithelial cells LM Ql (Urine sed) NONE SEEN Normal NONE SEEN /RARE [facility] Comment on above: Performed By: #### T ROSSY, CMP, BNP #### [facility] [address] [place] [address] Dr. Emilie Stack Glucose Ql (U) Negative Normal NEGATIVE [facility] Comment on above: Performed By: #### T ROSSY, CMP, BNP #### [facility] [address] [address] [address] Emilie Stack Hemoglobin Ql (U) TRACE-INTACT Abnormal NEGATIVE [facility] Comment on above: Performed By: #### T ROSSY, CMP, BNP #### [facility] [address] [address] [address] Emilie Stack Ketones Ql (U) Negative Normal NEGATIVE [facility] Comment on above: Performed By: #### T ROSSY, CMP, BNP #### [facility] [address] [address] [address] Emilie Stack LEUKOCYTES Negative Normal NEGATIVE [facility] Comment on above: Performed By: #### T ROSSY, CMP, BNP #### [facility] [address] [address] [address] Emilie Stack MUCOUS NONE SEEN Normal NONE SEEN [facility] Comment on above: Performed By: #### T ROSSY, CMP, BNP #### [facility] [address] [address] [address] Emilie Stack Nitrite Ql (U) Negative Normal NEGATIVE [facility] Comment on above: Performed By: #### T ROSSY, CMP, BNP #### [facility] Laboratory [address] [address] [address] Emilie Stack pH (U) 6.0 [pH] Normal 5-9 [facility] Comment on above: Performed By: #### T ROSSY CMP, BNP #### [facility] Laboratory [address] [place] [address] Dr. Emilie Stack RBC 2-5 Abnormal 0-2 [facility] Comment on above: Performed By: #### T ROSSY CMP, BNP #### [facility] Laboratory [address] [address] [address] Emilie Stack SPEC GRAVITY 1.015 Normal 1.005-<=1.025 [facility] Comment on above: Performed By: #### Patience BLAIR CMP, BNP #### [facility] Laboratory [address] [place] [address] Dr. Emilie Stack UA PROTEIN Negative Normal NEGATIVE/ TRACE [facility] Comment on above: Performed By: #### Patience BLAIR CMP, BNP #### [facility] Laboratory [address] [place] [address] Dr. Emilie Stack Urobilinogen Qn (U) 0.2 {Jose Guadalupe'U}/dL Normal 0.2 - 1. 0 [facility] Comment on above: Performed By: #### Patience BLAIR CMP, BNP #### [facility] Laboratory [address] [place] [address] Dr. Emilie Stack WBC 0-2 Abnormal NONE SEEN [facility] Comment on above: Performed By: #### Patience BLAIR CMP, BNP #### [facility] Laboratory [address] [place] [address] Dr. Emilie Stack BNPon 08-10-2022 Natriuretic peptide B (Bld) [Mass/Vol] 92.0 pg/mL Normal <=900.0 [facility] Comment on above: Performed By: #### T ROSSY CMP, BNP #### [facility] Laboratory [address] [place] [address] Dr. Emilie Stack CARDIAC GATITO 3-6on 3 CK [Catalytic activity/Vol] 56 U/L Normal 39-308 [facility] Comment on above: Performed By: #### C MP, BNP, YESI #### [facility] Laboratory [address] [address] [address] Emilie Stack CK.MB [Mass/Vol] 0.95 ng/mL Normal <=3.60 [facility] Comment on above: Performed By: #### C MP, BNP, YESI #### [facility] Laboratory [address] [address] [address] Emilie Stack HSTROP 5.5 pg/mL Normal 4.0-76.1 [facility] Comment on above: Result Comment: CUT- OFF POINTS HAVE BEEN ESTABLISHED BASED ON THE FOURTH UNIVERSAL DEFINITIONS OF MYOCARDIAL INFARCTION. THE UPPER REFERENCE LIMIT (URL) OF TROPONIN, DEFINED THE 99TH PERCENTILE OF cTnI DISTRIBUTION IN A REFERENCE POPULATION, HAS BEEN CONFIRMED THE DECISION THRESHOLD FOR MT DIAGNOSIS. Performed By: #### C MP, BNP, YESI #### [facility] Laboratory [address] [address] [address] Emilie Stack CARDIAC GATITO ADMITon 023 CK [Catalytic activity/Vol] 55 U/L Normal 39-308 [facility] Comment on above: Performed By: #### T ROSSY, CMP, BNP #### [facility] Laboratory [address] [address] [address] Emilie Stack CK.MB [Mass/Vol] 0.94 ng/mL Normal <=3.60 [facility] Comment on above: Performed By: #### T ROSSY, CMP, BNP #### [facility] Laboratory [address] [address] [address] Emilie Stack HSTROP 5.0 pg/mL Normal 4.0-76.1 [facility] Comment on above: Result Comment: CUT- OFF POINTS HAVE BEEN ESTABLISHED BASED ON THE FOURTH UNIVERSAL DEFINITIONS OF MYOCARDIAL INFARCTION. THE UPPER REFERENCE LIMIT (URL) OF TROPONIN, DEFINED THE 99TH PERCENTILE OF cTnI DISTRIBUTION IN A REFERENCE POPULATION, HAS BEEN CONFIRMED THE DECISION THRESHOLD FOR MT DIAGNOSIS. Performed By: #### T ROSSY, CMP, BNP #### [facility] Laboratory [address] [address] [address] Emilie Stack BELEN 65 ng/mL Normal 16-96 [facility] Comment on above: Performed By: #### T ROSSY, CMP, BNP #### [facility] Laboratory [address] [place] [address] Dr. Emilie Stack CBC AUTO DIFFon 08-10-2022 BASO # 0.0 103/ul Normal 0.0-0.1 [facility] Comment on above: Performed By: #### C MP, BNP, YESI #### [facility] [address] [place] [address] Dr. Emilie Stack Basophils/100 WBC (Bld) 0.2 % Normal 0.2-2.0 [facility] Comment on above: Performed By: #### C MP, BNP, YESI #### [facility] [address] [place] [address] Dr. Emilie Stack EO # 0.0 103/ul Normal 0.0-0.7 [facility] Comment on above: Performed By: #### C MP, BNP, YESI #### [facility] [address] [place] [address] Dr. Emilie Stack Eosinophils/100 WBC (Bld) 0.0 % Critically low 0.9-7.0 [facility] Comment on above: Performed By: #### C MP, BNP, YESI #### [facility] [address] [place] [address] Dr. Emilie Stack Erythrocyte distribution width (RBC) [Ratio] 14.7 % Normal 11.0-15.0 [facility] Comment on above: Performed By: #### C MP, BNP, YESI #### [facility] [address] [place] [address] Dr. Emilie Stack Hematocrit (Bld) [Volume fraction] 42.7 % Normal 42.0-54.0 [facility] Comment on above: Performed By: #### C MP, BNP, YESI #### [facility] [address] [place] [address] Dr. Emilie Stack Hemoglobin (Bld) [Mass/Vol] 14.4 g/dL Normal 14.0-18.0 [facility] Comment on above: Performed By: #### C MP, BNP, YESI #### [facility] [address] [place] [address] Dr. Emilie Stack IG # 0.08 10e3/ul Critically high 0.00-0.03 [facility] Comment on above: Performed By: #### C MP, BNP, YESI #### [facility] [address] [place] [address] Dr. Emilie Stack IG % 0.9 % Critically high 0.0-0.5 [facility] Comment on above: Performed By: #### C MP, BNP, YESI #### [facility] [address] [place] [address] Dr. Emilie Stack LYMPH # 0.4 103/ul Critically low 1.2-3.[address] [facility] Comment on above: Performed By: #### C MP, BNP, YESI #### [facility] [address] [place] [address] Dr. Emilie Stack Lymphocytes/100 WBC (Bld) 4.8 % Critically low 20.5-60.0 [facility] Comment on above: Performed By: #### C MP, BNP, YESI #### [facility] [address] [place] [address] Dr. Emilie Stack MANUAL DIFF REQ NO Normal [facility] Comment on above: Performed By: #### C MP, BNP, YESI #### [facility] [address] [place] [address] Dr. Emilie Stack MCH (RBC) [Entitic mass] 30.6 pg Normal 25.9-34.0 [facility] Comment on above: Performed By: #### C MP, BNP, YESI #### [facility] [address] [place] [address] Dr. Emilie Stack MCHC (RBC) [Mass/Vol] 33.7 g/dL Normal 29.9-35.2 [facility] Comment on above: Performed By: #### C MP, BNP, YESI #### [facility] [address] [place] [address] Dr. Emilie Stack MCV (RBC) [Entitic vol] 90.9 fL Normal 80.0-94.0 [facility] Comment on above: Performed By: #### C MP, BNP, YESI #### [facility] [address] [place] [address] Dr. Emilie Stack MONO # 0.7 103/ul Normal 0.3-0.8 [facility] Comment on above: Performed By: #### C MP, BNP, YESI #### [facility] [address] [place] [address] Dr. Emilie Stack Monocytes/100 WBC (Bld) 7.6 % Normal 1.7-12.0 [facility] Comment on above: Performed By: #### C MP, BNP, YESI #### [facility] [address] [place] [address] Dr. Emilie Stack NEUT # 7.5 103/ul Critically high 1.4-6.5 [facility] Comment on above: Performed By: #### C MP, BNP, YESI #### [facility] [address] [place] [address] Dr. Emilie Stack Neutrophils/100 WBC (Bld) 86.5 % Critically high 43.0-75.0 [facility] Comment on above: Performed By: #### C MP, BNP, YESI #### [facility] [address] [place] [address] Dr. Emilie Stack Platelet mean volume (Bld) [Entitic vol] 8.7 fL Critically low 9.5-13.5 [facility] Comment on above: Performed By: #### C MP, BNP, YESI #### [facility] [address] [place] [address] Dr. Emilie Stack PLT 295 103/ul Normal 150-450 [facility] Comment on above: Performed By: #### C MP, BNP, YESI #### [facility] [address] [place] [address] Dr. Emilie Stack RBC 4.70 106/ul Normal 4.70-6.10 [facility] Comment on above: Performed By: #### C MP, BNP, YESI #### [facility] [address] [address] [address] Emilie Stack WBC 8.7 103/ul Normal 4.0-11.0 [facility] Comment on above: Performed By: #### C MP BNP, YESI #### [facility] [address] [address] [address] Emilie Stack CTA CHEST WO W CONon 023 CTA CHEST WO W CON EXAMINATION: [...] patchy groundglass opacities seen on airways suggesting bronchiolitis/bronchi tis 3. Severe coronary artery calcification. Electronically authenticated by: MAITE FRAZIER Date: 2022-08-10 20:52 Normal [facility] CULTURE BLOODon 08-10-2022 Microscopic examination of blood, culture Culture Observations: NO GROWTH AT 5 DAYS. Normal [facility] Comment on above: Performed By: #### T JEANETTE BLAIR, BNP #### [facility] [address] [place], [place] [address] Dr. Emilie Stack Microscopic examination of blood, culture Culture Observations: NO GROWTH AT 5 DAYS. Normal [facility] Comment on above: Performed By: #### T ROSSY, CMP, BNP #### [facility] [address] [place] [address] Dr. Emilie Stack [facility]27 SARS-CoV-2 (COVID-19) RNA [place]+probe Ql (Unsp spec) Detected Abnormal NOT DETECTED [facility] Comment on above: Result Comment: This test is not yet approved or cleared by the [place] FDA. When there are no FDA-approved or cleared tests available, and other criteria are met, FDA can make tests available under an emergency access mechanism called an Emergency Use Authorization (EUA). The EUA for this test is supported by the [place] of Health and Human Service's declaration that [...] By: #### Patience BLAIR CMP, BNP #### [facility] [address] [place] [address] Dr. Emilie Stack LACTATE/LACTIC ACIDon 2022 Lactate [Moles/Vol] 2.0 mmol/L Critically high 0.4-1.9 [facility] Comment on above: Performed By: #### Patience BLAIR BNP, CMP #### [facility] [address] [place] [address] Dr. Emilie Stack PROF 14(COMP METB)on 023 Albumin [Mass/Vol] 3.4 g/dL Normal 3.4-5.0 [facility] Comment on above: Performed By: #### T ROSSY CMP, BNP #### [facility] [address] [place] [address] Dr. Emilie Stack Albumin/Globulin [Mass ratio] 1.1 {ratio} Normal [facility] Comment on above: Performed By: #### T ROSSY CMP, BNP #### [facility] [address] [place] [address] Dr. Emilie Stack ALP [Catalytic activity/Vol] 123 U/L Critically high 46-116 [facility] Comment on above: Performed By: #### Patience BLAIR CMP, BNP #### [facility] [address] [place] [address] Dr. Emilie Stack ALT [Catalytic activity/Vol] 27 U/L Normal 16-63 [facility] Comment on above: Performed By: #### Patience BLAIR CMP, BNP #### [facility] [address] [place] [address] Dr. Emilie Stack Anion gap [Moles/Vol] 11.9 mmol/L Normal [facility] Comment on above: Performed By: #### Patience BLAIR CMP, BNP #### [facility] [address] [place] [address] Dr. Emilie Stack AST [Catalytic activity/Vol] 14 U/L Critically low 15-37 [facility] Comment on above: Performed By: #### Patience BLAIR CMP, BNP #### [facility] [address] [place] [address] Dr. Emilie Stack Bilirubin [Mass/Vol] 0.2 mg/dL Normal 0.2-1.0 [facility] Comment on above: Performed By: #### Patience BLAIR CMP, BNP #### [facility] [address] [place] [address] Dr. Emilie Stack Calcium [Mass/Vol] 8.4 mg/dL Critically low 8.5-10.1 [facility] Comment on above: Performed By: #### Patience BLAIR CMP, BNP #### [facility] [address] [place] [address] Dr. Emilie Stack Chloride [Moles/Vol] 105 mmol/L Normal 98-107 [facility] Comment on above: Performed By: #### Patience BLAIR CMP, BNP #### [facility] [address] [place] [address] Dr. Emilie Stack CO2 [Moles/Vol] 27.2 mmol/L Normal 21.0-32.0 [facility] Comment on above: Performed By: #### Patience BLAIR CMP, BNP #### [facility] [address] [address] [address] Emilie Stack Creatinine [Mass/Vol] 1.06 mg/dL Normal 0.70-1.30 [facility] Comment on above: Performed By: #### Patience BLAIR CMP, BNP #### [facility] [address] [address] [address] Emilie Stack EGFR-AF JORDANIAN >60 Normal >=60 [facility] Comment on above: Performed By: #### Patience BLAIR CMP, BNP #### [facility] [address] [address] [address] Emilie Stack EGFR-NON AF JORDANIAN >60 Normal >=60 [facility] Comment on above: Performed By: #### Patience BLAIR CMP, BNP #### [facility] [address] [address] [address] Emilie Stack Globulin (S) [Mass/Vol] 3.1 g/dL Normal [facility] Comment on above: Performed By: #### Patience BLAIR CMP, BNP #### [facility] [address] [address] [address] Emilie Stack Glucose [Mass/Vol] 115 mg/dL Critically high 74-106 [facility] Comment on above: Performed By: #### Patience BLAIR CMP, BNP #### [facility] [address] [address] [address] Emilie Stack Potassium [Moles/Vol] 4.1 mmol/L Normal 3.5-5.1 [facility] Comment on above: Performed By: #### Patience BLAIR CMP, BNP #### [facility] [address] [address] [address] Emilie Stack Protein [Mass/Vol] 6.5 g/dL Normal 6.4-8.2 [facility] Comment on above: Performed By: #### Patience BLAIR CMP, BNP #### [facility] [address] [address] [address] Emilie Stack Sodium [Moles/Vol] 140 mmol/L Normal 136-145 [facility] Comment on above: Performed By: #### T ROSSY, CMP, BNP #### [facility] [address] [place] [address] Dr. Emilie Stack Urea nitrogen [Mass/Vol] 11.0 mg/dL Normal 7.0-18.0 [facility] Comment on above: Performed By: #### Patience BLAIR CMP, BNP #### [facility] [address] [place] [address] Dr. Emilie Stack Urea nitrogen/Creatinine [Mass ratio] 10.4 mg/mg Normal [facility] Comment on above: Performed By: #### Patience BLAIR CMP, BNP #### [facility] [address] [place] [address] Dr. Emilie Stack T4on 08-10-2022 T4 [Mass/Vol] 9.00 ug/dL Normal 4.50-12.10 [facility] Comment on above: Performed By: #### Patience BLAIR CMP, BNP #### [facility] [address] [place] [address] Dr. Emilie Stack THEOPHYLLINEon 08-10-2022 THEOPHYLLINE 5.1 ug/mL Critically low 10.0-20.0 [facility] Comment on above: Performed By: #### Patience BLAIR CMP, BNP #### [facility] [address] [place] [address] Dr. Emilie Stack TSHon 08-10-2022 TSH 0.585 uIU/mL Normal 0.358-3.740 [facility] Comment on above: Performed By: #### Patience BLAIR CMP, BNP #### [facility] [address] [place] [address] Dr. Emilie Stack BNPon 06-18-2022 Natriuretic peptide B (Bld) [Mass/Vol] 297.0 pg/mL Normal <=900.0 [facility] Comment on above: Performed By: #### Patience BLAIR CMP, BNP #### [facility] [address] [place] [address] Dr. Emilie Stack CBC AUTO DIFFon 06-18-2022 BASO # 0.0 103/ul Normal 0.0-0.1 [facility] Comment on above: Performed By: #### T ROSSY CMP, BNP #### [facility] [address] [place] [address] Dr. Emilie Stack Basophils/100 WBC (Bld) 0.1 % Critically low 0.2-2.0 [facility] Comment on above: Performed By: #### T ROSSY CMP, BNP #### [facility] [address] [place] [address] Dr. Emilie Stack EO # 0.0 103/ul Normal 0.0-0.7 [facility] Comment on above: Performed By: #### T ROSSY CMP, BNP #### [facility] [address] [place] [address] Dr. Emilie Stack Eosinophils/100 WBC (Bld) 0.0 % Critically low 0.9-7.0 [facility] Comment on above: Performed By: #### Patience BLAIR CMP, BNP #### [facility] [address] [place] [address] Dr. Emilie Stakc Erythrocyte distribution width (RBC) [Ratio] 14.5 % Normal 11.0-15.0 [facility] Comment on above: Performed By: #### Patience BLAIR CMP, BNP #### [facility] [address] [place] [address] Dr. Emilie Stack Hematocrit (Bld) [Volume fraction] 40.2 % Critically low 42.0-54.0 [facility] Comment on above: Performed By: #### T ROSSY CMP, BNP #### [facility] [address] [place] [address] Dr. Emilie Stack Hemoglobin (Bld) [Mass/Vol] 13.4 g/dL Critically low 14.0-18.0 [facility] Comment on above: Performed By: #### T ROSSY CMP, BNP #### [facility] [address] [place] [address] Dr. Emilie Stack IG # 0.08 10e3/ul Critically high 0.00-0.03 [facility] Comment on above: Performed By: #### T ROSSY, CMP, BNP #### [facility] [address] [address] [address] Emilie Stack IG % 0.7 % Critically high 0.0-0.5 [facility] Comment on above: Performed By: #### T ROSSY, CMP, BNP #### [facility] [address] [address] [address] Emilie Stack LYMPH # 0.5 103/ul Critically low 1.2-3.8 [facility] Comment on above: Performed By: #### T ROSSY, CMP, BNP #### [facility] [address] [address] [address] Emilie tSack Lymphocytes/100 WBC (Bld) 4.4 % Critically low 20.5-60.0 [facility] Comment on above: Performed By: #### T ROSSY CMP, BNP #### [facility] [address] [place] [address] Dr. Emilie Stack MANUAL DIFF REQ NO Normal [facility] Comment on above: Performed By: #### T ROSSY, CMP, BNP #### [facility] [address] [place] [address] Dr. Emilie Stack MCH (RBC) [Entitic mass] 30.0 pg Normal 25.9-34.0 [facility] Comment on above: Performed By: #### T ROSSY CMP, BNP #### [facility] [address] [address] [address] Emilie Stack MCHC (RBC) [Mass/Vol] 33.3 g/dL Normal 29.9-35.2 [facility] Comment on above: Performed By: #### T ROSSY, CMP, BNP #### [facility] [address] [address] [address] Emilie Stack MCV (RBC) [Entitic vol] 89.9 fL Normal 80.0-94.0 [facility] Comment on above: Performed By: #### T ROSSY, CMP, BNP #### [facility] [address] [address] [address] Emilie Stack MONO # 0.5 103/ul Normal 0.3-0.8 [facility] Comment on above: Performed By: #### Patience BLAIR CMP, BNP #### [facility] [address] [place] [address] Dr. Emilie Stack Monocytes/100 WBC (Bld) 4.3 % Normal 1.7-12.0 [facility] Comment on above: Performed By: #### Patience BLAIR CMP, BNP #### [facility] [address] [place] [address] Dr. Emilie Stack NEUT # 10.8 103/ul Critically high 1.4-6.5 [facility] Comment on above: Performed By: #### Patience BLAIR CMP, BNP #### [facility] [address] [place] [address] Dr. Emilie Stack Neutrophils/100 WBC (Bld) 90.5 % Critically high 43.0-75.0 [facility] Comment on above: Performed By: #### Patience BLAIR CMP, BNP #### [facility] [address] [place] [address] Dr. Emilie Stack Platelet mean volume (Bld) [Entitic vol] 8.5 fL Critically low 9.5-13.5 [facility] Comment on above: Performed By: #### Patience BLAIR CMP, BNP #### [facility] [address] [place] [address] Dr. Emilie Stack PLT 309 103/ul Normal 150-450 [facility] Comment on above: Performed By: #### Patience BLAIR CMP, BNP #### [facility] [address] [place] [address] Dr. Emilie Stack RBC 4.47 106/ul Critically low 4.70-6.10 [facility] Comment on above: Performed By: #### T ROSSY CMP, BNP #### [facility] [address] [place] [address] Dr. Emilie Stack WBC 11.9 103/ul Critically high 4.0-11.0 [facility] Comment on above: Performed By: #### T ROSSY CMP, BNP #### [facility] [address] [address] [address] Emilie Stack PROF 14(COMP METB)on 022 Albumin [Mass/Vol] 3.4 g/dL Normal 3.4-5.0 [facility] Comment on above: Performed By: #### T ROSSY, CMP, BNP #### [facility] [address] [address] [address] Emilie Stack Albumin/Globulin [Mass ratio] 1.0 {ratio} Normal [facility] Comment on above: Performed By: #### T ROSSY, CMP, BNP #### [facility] [address] [address] [address] Emilie Stack ALP [Catalytic activity/Vol] 120 U/L Critically high 46-116 [facility] Comment on above: Performed By: #### T ROSSY, CMP, BNP #### [facility] [address] [address] [address] Emilie Stack ALT [Catalytic activity/Vol] 17 U/L Normal 16-63 [facility] Comment on above: Performed By: #### T ROSSY, CMP, BNP #### [facility] [address] [address] [address] Emilie Stack Anion gap [Moles/Vol] 13.3 mmol/L Normal [facility] Comment on above: Performed By: #### T ROSSY, CMP, BNP #### [facility] [address] [address] [address] Emilie Stack AST [Catalytic activity/Vol] 15 U/L Normal 15-37 [facility] Comment on above: Performed By: #### T ROSSY, CMP, BNP #### [facility] [address] [address] [address] Emilie Stack Bilirubin [Mass/Vol] 0.2 mg/dL Normal 0.2-1.0 [facility] Comment on above: Performed By: #### T ROSSY, CMP, BNP #### [facility] [address] [address] [address] Emilie Stack Calcium [Mass/Vol] 8.5 mg/dL Normal 8.5-10.1 [facility] Comment on above: Performed By: #### Patience BLAIR CMP, BNP #### [facility] [address] [address] [address] Emilie Stack Chloride [Moles/Vol] 102 mmol/L Normal 98-107 [facility] Comment on above: Performed By: #### Patience BLAIR CMP, BNP #### [facility] [address] [address] [address] Emilie Stack CO2 [Moles/Vol] 24.1 mmol/L Normal 21.0-32.0 [facility] Comment on above: Performed By: #### Patience BLAIR CMP, BNP #### [facility] [address] [place] [address] Dr. Emiile Stack Creatinine [Mass/Vol] 1.12 mg/dL Normal 0.70-1.30 [facility] Comment on above: Performed By: #### Patience BLAIR CMP, BNP #### [facility] [address] [place] [address] Dr. Emilie Stack EGFR-AF JORDANIAN >60 Normal >=60 [facility] Comment on above: Performed By: #### Patience BLAIR CMP, BNP #### [facility] [address] [place] [address] Dr. Emilie Stack EGFR-NON AF JORDANIAN >60 Normal >=60 [facility] Comment on above: Performed By: #### Patience BLAIR CMP, BNP #### [facility] [address] [place] [address] Dr. Emilie Stack Globulin (S) [Mass/Vol] 3.3 g/dL Normal [facility] Comment on above: Performed By: #### Patience BLAIR CMP, BNP #### [facility] [address] [place] [address] Dr. Emilie Stack Glucose [Mass/Vol] 138 mg/dL Critically high 74-106 [facility] Comment on above: Performed By: #### Patience BLAIR CMP, BNP #### [facility] [address] [place] [address] Dr. Emilie Stack Potassium [Moles/Vol] 4.4 mmol/L Normal 3.5-5.1 [facility] Comment on above: Performed By: #### Patience BLAIR CMP, BNP #### [facility] [address] [address] [address] Emilie Stack Protein [Mass/Vol] 6.7 g/dL Normal 6.4-8.2 [facility] Comment on above: Performed By: #### Patience BLAIR CMP, BNP #### [facility] [address] [address] [address] Emilie Stack Sodium [Moles/Vol] 135 mmol/L Critically low 136-[address] [facility] Comment on above: Performed By: #### Patience BLAIR CMP, BNP #### [facility] [address] [place] [address] Dr. Emilie Stack Urea nitrogen [Mass/Vol] 23.0 mg/dL Critically high 7.0-18.0 [facility] Comment on above: Performed By: #### Patience BLAIR CMP, BNP #### [facility] [address] [place] [address] Dr. Emilie Stack Urea nitrogen/Creatinine [Mass ratio] 20.5 mg/mg Normal [facility] Comment on above: Performed By: #### Patience BLAIR CMP, BNP #### [facility] [address] [place] [address] Dr. Emilie Stack THEOPHYLLINEon 06-18-2022 THEOPHYLLINE 9.0 ug/mL Critically low 10.0-20.0 [facility] Comment on above: Performed By: #### Patience BLAIR CMP, BNP #### [facility] [address] [place] [address] Dr. Emilie Stack BNPon 06-17-2022 Natriuretic peptide B (Bld) [Mass/Vol] 320.0 pg/mL Normal <=900.0 [facility] Comment on above: Performed By: #### Patience BLAIR BNP, CMP #### [facility] [address] [place] [address] Dr. Emilie Stack CBC AUTO DIFFon 06-17-2022 BASO # 0.0 103/ul Normal 0.0-0.1 [facility] Comment on above: Performed By: #### T ROSSY CMP, BNP #### [facility] [address] [place] [address] Dr. Emilie Stack Basophils/100 WBC (Bld) 0.1 % Critically low 0.2-2.0 [facility] Comment on above: Performed By: #### T ROSSY CMP, BNP #### [facility] [address] [place] [address] Dr. Emilie Stack EO # 0.0 103/ul Normal 0.0-0.7 [facility] Comment on above: Performed By: #### Patience BLAIR CMP, BNP #### [facility] [address] [place] [address] Dr. Emilie Stack Eosinophils/100 WBC (Bld) 0.0 % Critically low 0.9-7.0 [facility] Comment on above: Performed By: #### Patience BLAIR CMP, BNP #### [facility] [address] [place] [address] Dr. Emilie Stack Erythrocyte distribution width (RBC) [Ratio] 14.3 % Normal 11.0-15.0 [facility] Comment on above: Performed By: #### Patience BLAIR CMP, BNP #### [facility] [address] [place] [address] Dr. Emilie Stack Hematocrit (Bld) [Volume fraction] 41.7 % Critically low 42.0-54.0 [facility] Comment on above: Performed By: #### T ROSSY CMP, BNP #### [facility] [address] [place] [address] Dr. Emilie Stack Hemoglobin (Bld) [Mass/Vol] 13.8 g/dL Critically low 14.0-18.0 [facility] Comment on above: Performed By: #### T ROSSY CMP, BNP #### [facility] [address] [place] [address] Dr. Emilie Stack IG # 0.09 10e3/ul Critically high 0.00-0.03 [facility] Comment on above: Performed By: #### T ROSSY, CMP, BNP #### [facility] [address] [address] [address] Emilie Stack IG % 0.6 % Critically high 0.0-0.5 [facility] Comment on above: Performed By: #### T ROSSY, CMP, BNP #### [facility] [address] [place] [address] Dr. Emilie Stack LYMPH # 0.6 103/ul Critically low 1.2-3.[address] [facility] Comment on above: Performed By: #### T ROSSY, CMP, BNP #### [facility] [address] [place] [address] Dr. Emilie Stack Lymphocytes/100 WBC (Bld) 4.1 % Critically low 20.5-60.0 [facility] Comment on above: Performed By: #### T ROSSY CMP, BNP #### [facility] [address] [place] [address] Dr. Emilie Stack MANUAL DIFF REQ NO Normal [facility] Comment on above: Performed By: #### T ROSSY CMP, BNP #### [facility] [address] [place] [address] Dr. Emilie Stack MCH (RBC) [Entitic mass] 29.9 pg Normal 25.9-34.0 [facility] Comment on above: Performed By: #### T ROSSY CMP, BNP #### [facility] [address] [place] [address] Dr. Emilie Stack MCHC (RBC) [Mass/Vol] 33.1 g/dL Normal 29.9-35.2 [facility] Comment on above: Performed By: #### T ROSSY, CMP, BNP #### [facility] [address] [place] [address] Dr. Emilie Stack MCV (RBC) [Entitic vol] 90.5 fL Normal 80.0-94.0 [facility] Comment on above: Performed By: #### T ROSSY, CMP, BNP #### [facility] [address] [place] [address] Dr. Emilie Stack MONO # 0.5 103/ul Normal 0.3-0.8 [facility] Comment on above: Performed By: #### Patience BLAIR CMP, BNP #### [facility] [address] [address] [address] Emilie Stack Monocytes/100 WBC (Bld) 3.4 % Normal 1.7-12.0 [facility] Comment on above: Performed By: #### Patience BLAIR CMP, BNP #### [facility] [address] [place] [address] Dr. Emilie Stack NEUT # 13.1 103/ul Critically high 1.4-6.5 [facility] Comment on above: Performed By: #### Patience BLAIR CMP, BNP #### [facility] [address] [place] [address] Dr. Emilie Stakc Neutrophils/100 WBC (Bld) 91.8 % Critically high 43.0-75.0 [facility] Comment on above: Performed By: #### Patience BLAIR CMP, BNP #### [facility] [address] [place] [address] Dr. Emilie Stack Platelet mean volume (Bld) [Entitic vol] 8.8 fL Critically low 9.5-13.5 [facility] Comment on above: Performed By: #### Patience BLAIR CMP, BNP #### [facility] [address] [place] [address] Dr. Emilie Stack PLT 341 103/ul Normal 150-450 [facility] Comment on above: Performed By: #### Patience BLAIR CMP, BNP #### [facility] [address] [place] [address] Dr. Emilie Stack RBC 4.61 106/ul Critically low 4.70-6.10 [facility] Comment on above: Performed By: #### Patience BLAIR CMP, BNP #### [facility] [address] [place] [address] Dr. Emilie Stack WBC 14.3 103/ul Critically high 4.0-11.0 [facility] Comment on above: Performed By: #### Patience BLAIR CMP, BNP #### [facility] [address] [address] [address] Emilie Stack PROF 14(COMP METB)on 022 Albumin [Mass/Vol] 3.8 g/dL Normal 3.4-5.0 [facility] Comment on above: Performed By: #### T ROSSY, BNP, CMP #### [facility] [address] [address] [address] Emilie Stack Albumin/Globulin [Mass ratio] 1.1 {ratio} Normal [facility] Comment on above: Performed By: #### T ROSSY, BNP, CMP #### [facility] [address] [address] [address] Emilie Stack ALP [Catalytic activity/Vol] 139 U/L Critically high 46-116 [facility] Comment on above: Performed By: #### T ROSSY, BNP, CMP #### [facility] [address] [address] [address] Emilie Stack ALT [Catalytic activity/Vol] 20 U/L Normal 16-63 [facility] Comment on above: Performed By: #### T ROSSY, BNP, CMP #### [facility] [address] [address] [address] Emilie Stack Anion gap [Moles/Vol] 15.1 mmol/L Normal [facility] Comment on above: Performed By: #### T ROSSY, BNP, CMP #### [facility] [address] [address] [address] Emilie Stack AST [Catalytic activity/Vol] 16 U/L Normal 15-37 [facility] Comment on above: Performed By: #### T ROSSY, BNP, CMP #### [facility] [address] [address] [address] Emilie Stack Bilirubin [Mass/Vol] 0.2 mg/dL Normal 0.2-1.0 [facility] Comment on above: Performed By: #### T ROSSY, BNP, CMP #### [facility] [address] [address] [address] Emilie Stack Calcium [Mass/Vol] 9.2 mg/dL Normal 8.5-10.1 [facility] Comment on above: Performed By: #### Patience BLAIR BNP, CMP #### [facility] [address] [address] [address] Emilie Stack Chloride [Moles/Vol] 102 mmol/L Normal 98-107 [facility] Comment on above: Performed By: #### Patience BLAIR BNP, CMP #### [facility] [address] [address] [address] Emilie Stack CO2 [Moles/Vol] 23.2 mmol/L Normal 21.0-32.0 [facility] Comment on above: Performed By: #### Patience BLAIR BNP, CMP #### [facility] [address] [place] [address] Dr. Emilie Stack Creatinine [Mass/Vol] 1.16 mg/dL Normal 0.70-1.30 [facility] Comment on above: Performed By: #### Patience BLAIR BNP, CMP #### [facility] [address] [place] [address] Dr. Emilie Stack EGFR-AF JORDANIAN >60 Normal >=60 [facility] Comment on above: Performed By: #### Patience BLAIR BNP, CMP #### [facility] [address] [place] [address] Dr. Emilie Stack EGFR-NON AF JORDANIAN >60 Normal >=60 [facility] Comment on above: Performed By: #### Patience BLAIR BNP, CMP #### [facility] [address] [place] [address] Dr. Emilie Stack Globulin (S) [Mass/Vol] 3.6 g/dL Normal [facility] Comment on above: Performed By: #### Patience BLAIR BNP, CMP #### [facility] [address] [place] [address] Dr. Emilie Stack Glucose [Mass/Vol] 138 mg/dL Critically high 74-106 [facility] Comment on above: Performed By: #### Patience BLAIR BNP, CMP #### [facility] [address] [place] [address] Dr. Emilie Stack Potassium [Moles/Vol] 4.3 mmol/L Normal 3.5-5.1 [facility] Comment on above: Performed By: #### T ROSSY, BNP, CMP #### [facility] [address] [place] [address] Dr. Emilie Stack Protein [Mass/Vol] 7.4 g/dL Normal 6.4-8.2 [facility] Comment on above: Performed By: #### T ROSSY, BNP, CMP #### [facility] [address] [address] [address] Emilie Stack Sodium [Moles/Vol] 136 mmol/L Normal 136-145 [facility] Comment on above: Performed By: #### T ROSSY, BNP, CMP #### [facility] [address] [place] [address] Dr. Emilie Stack Urea nitrogen [Mass/Vol] 19.0 mg/dL Critically high 7.0-18.0 [facility] Comment on above: Performed By: #### T ROSSY, BNP, CMP #### [facility] [address] [place] [address] Dr. Emilie Stack Urea nitrogen/Creatinine [Mass ratio] 16.4 mg/mg Normal [facility] Comment on above: Performed By: #### T ROSSY, BNP, CMP #### [facility] [address] [place] [address] Dr. Emilie Stack THEOPHYLLINEon 06-17-2022 THEOPHYLLINE 8.3 ug/mL Critically low 10.0-20.0 [facility] Comment on above: Performed By: #### T ROSSY, BNP, CMP #### [facility] [address] [place] [address] Dr. Emilie Stack BNPon 06-16-2022 Natriuretic peptide B (Bld) [Mass/Vol] 73.0 pg/mL Normal <=900.0 [facility] Comment on above: Performed By: #### C MP, BNP, YESI #### [facility] [address] [place] [address] Dr. Emilie Stack CBC W MANUAL DIFFon 06-16-20 22 ATYPICAL LYMPH # Normal [facility] Comment on above: Performed By: #### C MP, BNP, YESI #### [facility] [address] [place] [address] Dr. Emilie Stack ATYPICAL LYMPH % Normal [facility] Comment on above: Performed By: #### C MP, BNP, YESI #### [facility] [address] [address] [address] Emilie Stack BAND # 0.0 103/ul Normal 0.0-0.3 [facility] Comment on above: Performed By: #### C MP, BNP, YESI #### [facility] [address] [place] [address] Dr. Emilie Stack BAND % 0 % Normal 0-5 [facility] Comment on above: Performed By: #### C MP, BNP, YESI #### [facility] [address] [place] [address] Dr. Emilie Stack BASOM # 0.00 103/ul Normal 0.00-0.10 [facility] Comment on above: Performed By: #### C MP, BNP, YESI #### [facility] [address] [place] [address] Dr. Emilie Stack BASOM % 0.0 % Critically low 0.2-2.[address] [facility] Comment on above: Performed By: #### C MP, BNP, YESI #### [facility] [address] [place] [address] Dr. Emilie Stack BLAST # Normal [facility] Comment on above: Performed By: #### C MP, BNP, YESI #### [facility] [address] [place] [address] Dr. Emilie Stack BLAST % Normal [facility] Comment on above: Performed By: #### C MP, BNP, YESI #### [facility] [address] [place] [address] Dr. Emilie Stack CORRECTED WBC Normal 4.0-11.0 [facility] Comment on above: Performed By: #### C MP, BNP, YESI #### [facility] [address] [address] [address] Emilie Stack EOS # 0.00 103/ul Normal 0.00-0.70 [facility] Comment on above: Performed By: #### C MP, BNP, YESI #### [facility] [address] [address] [address] Emilie Stack EOS% 0.0 % Critically low 0.9-7.[address] [facility] Comment on above: Performed By: #### C MP, BNP, YESI #### [facility] [address] [place] [address] Dr. Emilie Stack HCT 41.2 % Critically low 42.0-54.[address] [facility] Comment on above: Performed By: #### C MP, BNP, YESI #### [facility] [address] [place] [address] Dr. Emilie Stack HGB 13.7 g/dl Critically low 14.0-18.[address] [facility] Comment on above: Performed By: #### C MP, BNP, YESI #### [facility] [address] [place] [address] Dr. Emilie Stack LYMPHM # 0.42 103/ul Critically low 1.20-3.80 [facility] Comment on above: Performed By: #### C MP, BNP, YESI #### [facility] [address] [place] [address] Dr. Emilie Stack LYMPHM% 5.0 % Critically low 20.5-60.0 [facility] Comment on above: Performed By: #### C MP, BNP, YESI #### [facility] [address] [place] [address] Dr. Emilie Stack MCH 30.2 pg Normal 25.9-34.0 [facility] Comment on above: Performed By: #### C MP, BNP, YESI #### [facility] [address] [place] [address] Dr. Emilie Stack MCHC 33.3 g/dl Normal 29.9-35.2 [facility] Comment on above: Performed By: #### C MP, BNP, YESI #### [facility] [address] [place] [address] Dr. Emilie Stack MCV 90.7 fL Normal 80.0-94.0 [facility] Comment on above: Performed By: #### C MP, BNP, YESI #### [facility] [address] [place] [address] Dr. Emilie Stack METAMYELOCYTE # Normal [facility] Comment on above: Performed By: #### C MP, BNP, YESI #### [facility] [address] [address] [address] Emilie Stack METAMYELOCYTE % Normal [facility] Comment on above: Performed By: #### C MP, BNP, YESI #### [facility] [address] [place] [address] Dr. Emilie Stack MONOM# 0.00 103/ul Critically low 0.30-0.80 [facility] Comment on above: Performed By: #### C MP, BNP, YESI #### [facility] [address] [place] [address] Dr. Emilie Stack MONOM% 0.0 % Critically low 1.7-12.[address] [facility] Comment on above: Performed By: #### C MP, BNP, YESI #### [facility] [address] [place] [address] Dr. Emilie Stack MPV 8.7 fL Critically low 9.5-13.[address] [facility] Comment on above: Performed By: #### C MP, BNP, YESI #### [facility] [address] [place] [address] Dr. Emilie Stack MYELOCYTE # Normal [facility] Comment on above: Performed By: #### C MP, BNP, YESI #### [facility] [address] [place] [address] Dr. Emilie Stack MYELOCYTE % Normal [facility] Comment on above: Performed By: #### C MP, BNP, YESI #### [facility] [address] [place] [address] Dr. Emilie Stack NRBC Normal [facility] Comment on above: Performed By: #### C MP, BNP, YESI #### [facility] [address] [place] [address] Dr. Emilie Stack PLT 286 103/ul Normal 150-450 [facility] Comment on above: Performed By: #### C MP, BNP, YESI #### [facility] [address] [place] [address] Dr. Emilie Stack RBC 4.54 106/ul Critically low 4.70-6.10 [facility] Comment on above: Performed By: #### C MP, BNP, YESI #### [facility] [address] [place] [address] Dr. Emilie Stack RDW 13.7 % Normal 11.0-15.0 [facility] Comment on above: Performed By: #### C MP, BNP, YESI #### [facility] [address] [place] [address] Dr. Emilie Stack SEG # 7.98 103/ul Critically high 1.40-6.50 [facility] Comment on above: Performed By: #### C MP, BNP, YESI #### [facility] [address] [place] [address] Dr. Emilie Stack SEG % 95.0 % Critically high 43.0-75.0 [facility] Comment on above: Performed By: #### C MP, BNP, YESI #### [facility] [address] [place] [address] Dr. Emilie Stack WBC 8.4 103/ul Normal 4.0-11.0 [facility] Comment on above: Performed By: #### C MP, BNP, YESI #### [facility] [address] [place] [address] Dr. Emilie Stack PROF 14(COMP METB)on 022 Albumin [Mass/Vol] 3.5 g/dL Normal 3.4-5.0 [facility] Comment on above: Performed By: #### C MP, BNP, YESI #### [facility] [address] [address] [address] Emilie Stack Albumin/Globulin [Mass ratio] 1.0 {ratio} Normal [facility] Comment on above: Performed By: #### C MP, BNP, YESI #### [facility] [address] [address] [address] Emilie Stack ALP [Catalytic activity/Vol] 137 U/L Critically high 46-116 [facility] Comment on above: Performed By: #### C MP, BNP, YESI #### [facility] [address] [place] [address] Dr. Emilie Stack ALT [Catalytic activity/Vol] 22 U/L Normal 16-63 [facility] Comment on above: Performed By: #### C MP, BNP, YESI #### [facility] [address] [place] [address] Dr. Emilie Stack Anion gap [Moles/Vol] 15.3 mmol/L Normal [facility] Comment on above: Performed By: #### C MP, BNP, YESI #### [facility] [address] [place] [address] Dr. Emilie Stack AST [Catalytic activity/Vol] 13 U/L Critically low 15-37 [facility] Comment on above: Performed By: #### C MP, BNP, YESI #### [facility] [address] [place] [address] Dr. Emilie Stack Bilirubin [Mass/Vol] 0.1 mg/dL Critically low 0.2-1.0 [facility] Comment on above: Performed By: #### C MP, BNP, YESI #### [facility] [address] [address] [address] Emilie Stack Calcium [Mass/Vol] 9.2 mg/dL Normal 8.5-10.1 [facility] Comment on above: Performed By: #### C MP, BNP, YESI #### [facility] [address] [address] [address] Emilie Stack Chloride [Moles/Vol] 101 mmol/L Normal 98-107 [facility] Comment on above: Performed By: #### C MP, BNP, YESI #### [facility] [address] [address] [address] Emilie Stack CO2 [Moles/Vol] 21.4 mmol/L Normal 21.0-32.0 [facility] Comment on above: Performed By: #### C MP, BNP, YESI #### [facility] [address] [place] [address] Dr. Emilie Stack Creatinine [Mass/Vol] 1.26 mg/dL Normal 0.70-1.30 [facility] Comment on above: Performed By: #### C MP, BNP, YESI #### [facility] [address] [address] [address] Emilie Stack EGFR-AF JORDANIAN >60 Normal >=60 [facility] Comment on above: Performed By: #### C MP, BNP, YESI #### [facility] [address] [place] [address] Dr. Emilie Stack EGFR-NON AF JORDANIAN 56 mL/min/1.73m2 Critically low >=60 [facility] Comment on above: Performed By: #### C MP, BNP, YESI #### [facility] [address] [address] [address] Emilie Stack Globulin (S) [Mass/Vol] 3.5 g/dL Normal [facility] Comment on above: Performed By: #### C MP, BNP, YESI #### [facility] [address] [address] [address] Emilie Stack Glucose [Mass/Vol] 159 mg/dL Critically high 74-106 [facility] Comment on above: Performed By: #### C MP, BNP, YESI #### [facility] [address] [address] [address] Emilie Stack Potassium [Moles/Vol] 3.7 mmol/L Normal 3.5-5.1 [facility] Comment on above: Performed By: #### C MP, BNP, YESI #### [facility] [address] [address] [address] Emilie Stack Protein [Mass/Vol] 7.0 g/dL Normal 6.4-8.2 [facility] Comment on above: Performed By: #### C MP, BNP, YESI #### [facility] [address] [place] [address] Dr. Emilie Stack Sodium [Moles/Vol] 134 mmol/L Critically low 136-[address] [facility] Comment on above: Performed By: #### C MP, BNP, YESI #### [facility] [address] [place] [address] Dr. Emilie Stack Urea nitrogen [Mass/Vol] 23.0 mg/dL Critically high 7.0-18.0 [facility] Comment on above: Performed By: #### C MP, BNP, YESI #### [facility] [address] [place] [address] Dr. Emilie Stack Urea nitrogen/Creatinine [Mass ratio] 18.3 mg/mg Normal [facility] Comment on above: Performed By: #### C MP, BNP, YESI #### [facility] [address] [place] [address] Dr. Emilie Stack T3, TOTAL (TRIIODOTHYRONINE) on 06-16-2022 T3, TOTAL 128 ng/dL Normal 71-180 [facility] Comment on above: Performed By: #### T ROSSY CMP, BNP #### [facility] [address] [place] [address] Dr. Emilie Stack THEOPHYLLINEon 06-16-2022 THEOPHYLLINE 5.9 ug/mL Critically low 10.0-20.0 [facility] Comment on above: Performed By: #### T ROSSY, BNP, CMP #### [facility] [address] [place] [address] Dr. Emilie Stack BNPon 06-15-2022 Natriuretic peptide B (Bld) [Mass/Vol] 30.0 pg/mL Normal <=900.0 [facility] Comment on above: Performed By: #### C MP, BNP, YESI #### [facility] [address] [place] [address] Dr. Emilie Stack CARDIAC GATITO 3-6on 2 CK [Catalytic activity/Vol] 110 U/L Normal 39-308 [facility] Comment on above: Performed By: #### C MP, BNP, YESI #### [facility] [address] [address] [address] Emilie Stack CK.MB [Mass/Vol] 1.64 ng/mL Normal <=3.60 [facility] Comment on above: Performed By: #### C MP, BNP, YESI #### [facility] [address] [address] [address] Emilie Stack HSTROP 6.1 pg/mL Normal 4.0-76.1 [facility] Comment on above: Result Comment: CUT- OFF POINTS HAVE BEEN ESTABLISHED BASED ON THE FOURTH UNIVERSAL DEFINITIONS OF MYOCARDIAL INFARCTION. THE UPPER REFERENCE LIMIT (URL) OF TROPONIN, DEFINED THE 99TH PERCENTILE OF cTnI DISTRIBUTION IN A REFERENCE POPULATION, HAS BEEN CONFIRMED THE DECISION THRESHOLD FOR MT DIAGNOSIS. Performed By: #### C MP, BNP, YESI #### [facility] [address] [address] [address] Emilie Stack Performed By: #### T ROSSY, CMP, BNP #### [facility] [address] [place] [address] Dr. Emilie Stack CK [Catalytic activity/Vol] 125 U/L Normal 39-308 [facility] Comment on above: Performed By: #### T ROSSY, CMP, BNP #### [facility] [address] [address] [address] Emilie Stack CK.MB [Mass/Vol] 1.83 ng/mL Normal <=3.60 [facility] Comment on above: Performed By: #### T ROSSY, CMP, BNP #### [facility] [address] [address] [address] Emilie Stack CARDIAC GATITO ADMITon 022 CK [Catalytic activity/Vol] 129 U/L Normal 39-308 [facility] Comment on above: Performed By: #### C MP, BNP, YESI #### [facility] [address] [place] [address] Dr. Emilie Stack CK.MB [Mass/Vol] 1.68 ng/mL Normal <=3.60 [facility] Comment on above: Performed By: #### C MP, BNP, YESI #### [facility] [address] [place] [address] Dr. Emilie Stack HSTROP 6.6 pg/mL Normal 4.0-76.1 [facility] Comment on above: Result Comment: CUT- OFF POINTS HAVE BEEN ESTABLISHED BASED ON THE FOURTH UNIVERSAL DEFINITIONS OF MYOCARDIAL INFARCTION. THE UPPER REFERENCE LIMIT (URL) OF TROPONIN, DEFINED THE 99TH PERCENTILE OF cTnI DISTRIBUTION IN A REFERENCE POPULATION, HAS BEEN CONFIRMED THE DECISION THRESHOLD FOR MT DIAGNOSIS. Performed By: #### C MP, BNP, YESI #### [facility] [address] [place] [address] Dr. Emilie Stack BELEN 85 ng/mL Normal 16-96 [facility] Comment on above: Performed By: #### C MP, BNP, YESI #### [facility] [address] [place] [address] Dr. Emilie Stack CBC AUTO DIFFon 06-15-2022 BASO # 0.1 103/ul Normal 0.0-0.1 [facility] Comment on above: Performed By: #### C MP, BNP, YESI #### [facility] [address] [place] [address] Dr. Emilie Stack Basophils/100 WBC (Bld) 0.8 % Normal 0.2-2.0 [facility] Comment on above: Performed By: #### C MP, BNP, YESI #### [facility] [address] [place] [address] Dr. Emilie Stack EO # 0.2 103/ul Normal 0.0-0.7 [facility] Comment on above: Performed By: #### C MP, BNP, YESI #### [facility] [address] [place] [address] Dr. Emilie Stack Eosinophils/100 WBC (Bld) 4.1 % Normal 0.9-7.0 [facility] Comment on above: Performed By: #### C MP, BNP, YESI #### [facility] [address] [place] [address] Dr. Emilie Stack Erythrocyte distribution width (RBC) [Ratio] 13.8 % Normal 11.0-15.0 [facility] Comment on above: Performed By: #### C MP, BNP, YESI #### [facility] [address] [place] [address] Dr. Emilie Stack Hematocrit (Bld) [Volume fraction] 45.8 % Normal 42.0-54.0 [facility] Comment on above: Performed By: #### C MP, BNP, YESI #### [facility] [address] [place] [address] Dr. Emilie Stack Hemoglobin (Bld) [Mass/Vol] 15.1 g/dL Normal 14.0-18.0 [facility] Comment on above: Performed By: #### C MP, BNP, YESI #### [facility] [address] [place] [address] Dr. Emilie Stack IG # 0.02 10e3/ul Normal 0.00-0.03 [facility] Comment on above: Performed By: #### C MP, BNP, YESI #### [facility] [address] [place] [address] Dr. Emilie Stack IG % 0.3 % Normal 0.0-0.5 [facility] Comment on above: Performed By: #### C MP, BNP, YESI #### [facility] [address] [place] [address] Dr. Emilie Stack LYMPH # 1.5 103/ul Normal 1.2-3.8 [facility] Comment on above: Performed By: #### C MP, BNP, YESI #### [facility] [address] [place] [address] Dr. Emilie Stack Lymphocytes/100 WBC (Bld) 25.3 % Normal 20.5-60.0 [facility] Comment on above: Performed By: #### C MP, BNP, YESI #### [facility] [address] [place] [address] Dr. Emilie Stack MANUAL DIFF REQ NO Normal [facility] Comment on above: Performed By: #### C MP, BNP, YESI #### [facility] [address] [place] [address] Dr. Emilie Stack MCH (RBC) [Entitic mass] 29.9 pg Normal 25.9-34.0 [facility] Comment on above: Performed By: #### C MP, BNP, YESI #### [facility] [address] [place] [address] Dr. Emilie Stack MCHC (RBC) [Mass/Vol] 33.0 g/dL Normal 29.9-35.2 [facility] Comment on above: Performed By: #### C MP, BNP, YESI #### [facility] [address] [place] [address] Dr. Emilie Stack MCV (RBC) [Entitic vol] 90.7 fL Normal 80.0-94.0 [facility] Comment on above: Performed By: #### C MP, BNP, YESI #### [facility] [address] [place] [address] Dr. Emilie Stack MONO # 0.6 103/ul Normal 0.3-0.8 [facility] Comment on above: Performed By: #### C MP, BNP, YESI #### [facility] [address] [place] [address] Dr. Emilie Stack Monocytes/100 WBC (Bld) 10.3 % Normal 1.7-12.0 [facility] Comment on above: Performed By: #### C MP, BNP, YESI #### [facility] [address] [place] [address] Dr. Emilie Stack NEUT # 3.5 103/ul Normal 1.4-6.5 [facility] Comment on above: Performed By: #### C MP, BNP, YESI #### [facility] [address] [place] [address] Dr. Emilie Stack Neutrophils/100 WBC (Bld) 59.2 % Normal 43.0-75.0 [facility] Comment on above: Performed By: #### C MP, BNP, YESI #### [facility] [address] [place] [address] Dr. Emilie Stack Platelet mean volume (Bld) [Entitic vol] 8.7 fL Critically low 9.5-13.5 [facility] Comment on above: Performed By: #### C MP, BNP, YESI #### [facility] [address] [place] [address] Dr. Emilie Stack PLT 320 103/ul Normal 150-450 [facility] Comment on above: Performed By: #### C MP, BNP, YESI #### [facility] [address] [place] [address] Dr. Emilie Stack RBC 5.05 106/ul Normal 4.70-6.10 [facility] Comment on above: Performed By: #### C MP, BNP, YESI #### [facility] [address] [place] [address] Dr. Emilie Stack WBC 5.9 103/ul Normal 4.0-11.0 [facility] Comment on above: Performed By: #### C MP, BNP, YESI #### [facility] [address] [place] [address] Dr. Emilie Stack CULTURE BLOODon 06-15-2022 Microscopic examination of blood, culture Culture Observations: NO GROWTH AT 5 DAYS. Normal [facility] Comment on above: Performed By: #### T JEANETTE BLAIR, BNP #### [facility] [address] [place] [address] Dr. Emilie Stack Microscopic examination of blood, culture Culture Observations: NO GROWTH AT 5 DAYS. Normal [facility] Comment on above: Performed By: #### T ROSSY CMP, BNP #### [facility] [address] [place] [address] Dr. Emilie Stack CULTURE SPUTUMon 06-15-2022 CULTURE SPUTUM Culture Observations : Moraxella Catarrhalis is Beta Lactmase Positive Culture Observations: Normal respiratory tano also seen Isolate 1 Moraxella (Branhamella) catarrhalis Heavy growth of Normal [facility] Comment on above: Performed By: #### T JEANETTE BLAIR, BNP #### [facility] [address] [place] [address] Dr. Emilie Stack Covid-19 PCR (CVDTB)on 05-27 SARS-CoV-2 (COVID-19) RNA [place]+probe Ql (Unsp spec) Not detected Normal NOT DETECTED [facility] Comment on above: Result Comment: [...] for this test is supported by the Internal Audit Consultant of Health and Human Service's declaration that [...] By: #### T ROSSY, CMP, BNP #### [facility] [address] [place] [address] Dr. Emilie Stack PROF 14(COMP METB)on 022 Albumin [Mass/Vol] 3.7 g/dL Normal 3.4-5.0 [facility] Comment on above: Performed By: #### C MP, BNP, YESI #### [facility] [address] [place] [address] Dr. Emilie Stack Albumin/Globulin [Mass ratio] 1.0 {ratio} Normal [facility] Comment on above: Performed By: #### C MP, BNP, YESI #### [facility] [address] [place] [address] Dr. Emilie Stack ALP [Catalytic activity/Vol] 154 U/L Critically high 46-116 [facility] Comment on above: Performed By: #### C MP, BNP, YESI #### [facility] [address] [place] [address] Dr. Emilie Stack ALT [Catalytic activity/Vol] 24 U/L Normal 16-63 [facility] Comment on above: Performed By: #### C MP, BNP, YESI #### [facility] [address] [place] [address] Dr. Emilie Stack Anion gap [Moles/Vol] 13.0 mmol/L Normal Th [facility] Comment on above: Performed By: #### C MP, BNP, YESI #### [facility] [address] [place] [address] Dr. Emilie Stack AST [Catalytic activity/Vol] 17 U/L Normal 15-37 [facility] Comment on above: Performed By: #### C MP, BNP, YESI #### [facility] [address] [place] [address] Dr. Emilie Stack Bilirubin [Mass/Vol] 0.3 mg/dL Normal 0.2-1.0 [facility] Comment on above: Performed By: #### C MP, BNP, YESI #### [facility] [address] [place] [address] Dr. Emilie Stack Calcium [Mass/Vol] 8.6 mg/dL Normal 8.5-10.1 [facility] Comment on above: Performed By: #### C MP, BNP, YESI #### [facility] [address] [place] [address] Dr. Emilie Stack Chloride [Moles/Vol] 104 mmol/L Normal 98-107 [facility] Comment on above: Performed By: #### C MP, BNP, YESI #### [facility] [address] [place] [address] Dr. Emilie Stack CO2 [Moles/Vol] 24.9 mmol/L Normal 21.0-32.0 [facility] Comment on above: Performed By: #### C MP, BNP, YESI #### [facility] [address] [place] [address] Dr. Emilie Stack Creatinine [Mass/Vol] 1.10 mg/dL Normal 0.70-1.30 [facility] Comment on above: Performed By: #### C MP, BNP, YESI #### [facility] [address] [address] [address] Emilie Stack EGFR-AF JORDANIAN >60 Normal >=60 [facility] Comment on above: Performed By: #### C MP, BNP, YESI #### [facility] [address] [address] [address] Emilie Stack EGFR-NON AF JORDANIAN >60 Normal >=60 [facility] Comment on above: Performed By: #### C MP, BNP, YESI #### [facility] [address] [address] [address] Emilie Stack Globulin (S) [Mass/Vol] 3.6 g/dL Normal [facility] Comment on above: Performed By: #### C MP, BNP, YESI #### [facility] [address] [address] [address] Emilie Stack Glucose [Mass/Vol] 107 mg/dL Critically high 74-106 [facility] Comment on above: Performed By: #### C MP, BNP, YESI #### [facility] [address] [address] [address] Emilie Stack Potassium [Moles/Vol] 3.9 mmol/L Normal 3.5-5.1 [facility] Comment on above: Performed By: #### C MP, BNP, YESI #### [facility] [address] [address] [address] Emilie Stack Protein [Mass/Vol] 7.3 g/dL Normal 6.4-8.2 [facility] Comment on above: Performed By: #### C MP, BNP, YESI #### [facility] [address] [address] [address] Emilie Stack Sodium [Moles/Vol] 138 mmol/L Normal 136-145 [facility] Comment on above: Performed By: #### C MP, BNP, YESI #### [facility] [address] [address] [address] Emilie Stack Urea nitrogen [Mass/Vol] 18.0 mg/dL Normal 7.0-18.0 [facility] Comment on above: Performed By: #### C MP, BNP, YESI #### [facility] [address] [address] [address] Emilie Stack Urea nitrogen/Creatinine [Mass ratio] 16.4 mg/mg Normal [facility] Comment on above: Performed By: #### C MP, BNP, YESI #### [facility] [address] [address] [address] Emilie Stack SPUTUM GRAM STAINon 06-15-20 COMMENTS Normal [facility] Comment on above: Performed By: #### T ROSSY, CMP, BNP #### [facility] [address] [address] [address] Emilie Stack DIPHTHEROIDS Normal [facility] Comment on above: Performed By: #### T ROSSY, CMP, BNP #### [facility] [address] [address] [address] Emilie Stack EPITHELIALS <25 Normal [facility] Comment on above: Performed By: #### T ROSSY, CMP, BNP #### [facility] [address] [address] [address] Emilie Stack FUNGAL ELEMENTS Normal [facility] Comment on above: Performed By: #### T ROSSY, CMP, BNP #### [facility] [address] [address] [address] Emilie JARAMILLO NEG BACILLI Normal [facility] Comment on above: Performed By: #### T ROSSY, CMP, BNP #### [facility] [address] [address] [address] Emilie JARAMILLO NEG DIPPLOCOCCI MANY Normal [facility] Comment on above: Performed By: #### T ROSSY, CMP, BNP #### [facility] [address] [address] [address] Emilie JARAMILLO POS BACILLI Normal [facility] Comment on above: Performed By: #### T ROSSY, CMP, BNP #### [facility] [address] [address] [address] Emilie Stack GRAM POSITIVE COCCI FEW Normal [facility] Comment on above: Performed By: #### T ROSSY, CMP, BNP #### [facility] [address] [place] [address] Dr. Emilie Stack WBC (Bld) [#/Vol] 10*3/uL Normal [facility] Comment on above: Performed By: #### T ROSSY, CMP, BNP #### [facility] [address] [place] [address] Dr. Emilie Stack T4on 06-15-2022 T4 [Mass/Vol] 8.10 ug/dL Normal 4.50-12.10 [facility] Comment on above: Performed By: #### C MP, BNP, YESI #### [facility] [address] [place] [address] Dr. Emilie Stack TSHon 06-15-2022 TSH 1.611 uIU/mL Normal 0.358-3.740 [facility] Comment on above: Performed By: #### C MP, BNP, YESI #### [facility] [address] [place] [address] Dr. Emilie Stack UA RANDOM W/MICROSCOPICon BACTERIA NONE SEEN Normal NONE SEEN [facility] Comment on above: Performed By: #### T ROSSY, CMP, BNP #### [facility] [address] [place] [address] Dr. Emilie Stack Bilirubin Ql (U) Negative Normal NEGATIVE [facility] Comment on above: Performed By: #### T ROSSY, CMP, BNP #### [facility] [address] [place] [address] Dr. Emilie Stack CAST NONE SEEN Normal NONE SEEN [facility] Comment on above: Performed By: #### T ROSSY, CMP, BNP #### [facility] [address] [place] [address] Dr. Emilie Stack Clarity (U) CLEAR Normal CLEAR [facility] Comment on above: Performed By: #### T ROSSY, CMP, BNP #### [facility] [address] [place] [address] Dr. Emilie Stack Color (U) LT. YELLOW Normal YELLOW [facility] Comment on above: Performed By: #### T ROSSY, CMP, BNP #### [facility] [address] [address] [address] Emilie Stack Crystals LM Nom (Urine sed) NONE SEEN Normal NONE SEEN [facility] Comment on above: Performed By: #### T ROSSY, CMP, BNP #### [facility] [address] [address] [address] Emilie Stack Epithelial cells LM Ql (Urine sed) RARE Normal NONE SEEN /RARE [facility] Comment on above: Performed By: #### T ROSSY, CMP, BNP #### [facility] [address] [address] [address] Emilie Stack Glucose Ql (U) Negative Normal NEGATIVE [facility] Comment on above: Performed By: #### T ROSSY CMP, BNP #### [facility] [address] [place] [address] Dr. Emilie Stack Hemoglobin Ql (U) TRACE-INTACT Abnormal NEGATIVE [facility] Comment on above: Performed By: #### T ROSSY CMP, BNP #### [facility] [address] [place] [address] Dr. Emilie Stack Ketones Ql (U) Negative Normal NEGATIVE [facility] Comment on above: Performed By: #### T ROSSY CMP, BNP #### [facility] [address] [place] [address] Dr. Emiile Stack LEUKOCYTES Negative Normal NEGATIVE [facility] Comment on above: Performed By: #### T ROSSY CMP, BNP #### [facility] [address] [address] [address] Emilie Stack MUCOUS SMALL Abnormal NONE SEEN [facility] Comment on above: Performed By: #### T ROSSY, CMP, BNP #### [facility] [address] [place] [address] Dr. Emilie Stack Nitrite Ql (U) Negative Normal NEGATIVE [facility] Comment on above: Performed By: #### T ROSSY, CMP, BNP #### [facility] [address] [place] [address] Dr. Emilie Stack pH (U) 5.5 [pH] Normal 5-9 [facility] Comment on above: Performed By: #### T ROSSY, CMP, BNP #### [facility] [address] [address] [address] Emilie Stack RBC NONE SEEN Abnormal 0-2 [facility] Comment on above: Performed By: #### T ROSSY, CMP, BNP #### [facility] [address] [address] [address] Emilie Stack SPEC GRAVITY 1.025 Normal 1.005-<=1.025 [facility] Comment on above: Performed By: #### T ROSSY, CMP, BNP #### [facility] [address] [place] [address] Dr. Emilie Stack UA PROTEIN Negative Normal NEGATIVE/ TRACE [facility] Comment on above: Performed By: #### T ROSSY, CMP, BNP #### [facility] [address] [place] [address] Dr. Emilie Stack Urobilinogen Qn (U) 0.2 {Jose Guadalupe'U}/dL Normal 0.2 - 1. 0 [facility] Comment on above: Performed By: #### T ROSSY CMP, BNP #### [facility] [address] [place] [address] Dr. Emilie Stack WBC NONE SEEN Normal NONE SEEN [facility] Comment on above: Performed By: #### T ROSSY, CMP, BNP #### [facility] [address] [place] [address] Dr. Emilie Stack XR CHEST 2 Von 06-15-2022 XR CHEST 2 V EXAMINATION: XR CHES T 2 V HISTORY: SHORTNESS OF BREATH COMPARISON: [...] acute cardiopulmonary process. Electronically authenticated by: CORRINE Alegria: 2022-06-15 13:36 Normal [facility] US Abdomen RUQon 10-21-2021 IMPRESSION: No gallstones [...] gallstones No free fluid Small right kidney. [facility] Radiology Study observation (narrative) [facility] US Abdomen RUQOrdered By: Matt Francisco on 10-21-2021 [facility] Work Phone: XR Chest PA and Lateralon IMPRESSION: Mild COPD. No acute infiltrate or consolidation seen. RADIOLOGY EXAM: XR CHEST PA AN D LATERAL HISTORY: Pulmonary emphysema, unspecified emphysema type [...] COPD. No acute infiltrate or consolidation seen. [facility] Radiology Study observation (narrative) [facility] XR Chest PA and LateralOrder ed By: Rafal Salter on 09-29-[address] [facility] Campus[facility] Work Phone: C REACTIVE PROTEINon 022 CRP [Mass/Vol] 42.1 mg/L High 0 - 10.0 MG/L [facility] CBC, EDIF, PLATELETon 2021 ABSOLUTE BASOPHIL COUNT 0.0 10*3/uL 0.0 - 0.2 10*3/uL [facility] Basophils/100 WBC (Bld) 0.2 % 0.0 - 2.0 % [facility] Differential cell count method Nom (Bld) AUTO DIFF % [facility] Eosinophils (Bld) [#/Vol] 0.00 10*3/uL 0.0 - 0.7 10*3/uL [facility] Eosinophils/100 WBC (Bld) 0.1 % 0.0 - 11.0 % [facility] Erythrocyte distribution width (RBC) [Ratio] 13.5 % 11.5 - 14.5 % [facility] Hematocrit (Bld) [Volume fraction] 41.0 % Low 42.0 - 52.0 % [facility] Hemoglobin (Bld) [Mass/Vol] 14.3 g/dL [facility] Interpretation and review of laboratory results Abnormal [facility] Lymphocytes (Bld) [#/Vol] 0.40 10*3/uL Low 1.2 - 3.4 10*3/uL [facility] Lymphocytes/100 WBC (Bld) 16.0 % Low 20.0 - 55.0 % [facility] MCH (RBC) [Entitic mass] 32.1 pg 26.0 - 35.0 PG [facility] MCHC (RBC) [Mass/Vol] 34.8 g/dL [facility] MCV (RBC) [Entitic vol] 92.1 fL [facility] Monocytes (Bld) [#/Vol] 0.1 10*3/uL 0.0 - 0.7 10*3/uL [facility] Monocytes/100 WBC (Bld) 4.4 % 0.0 - 10.0 % [facility] Neutrophils (Bld) [#/Vol] 2.2 10*3/uL 1.4 - 6.5 10*3/uL [facility] Neutrophils/100 WBC (Bld) 79.3 % High 37.0 - 75.0 % [facility] Platelet mean volume (Bld) [Entitic vol] 8.8 fL [facility] Platelets (Bld) [#/Vol] 230 10*3/uL 130.0 - 400.0 10*3/uL [facility] RBC (Bld) [#/Vol] 4.45 10*6/uL 4.0 - 6.1 10*6/uL [facility] WBC (Bld) [#/Vol] 2.8 10*3/uL Low 3.6 - 11.0 10*3/uL [facility] HEPATIC FUNCTION PANELon Albumin [Mass/Vol] 3.0 g/dL Low [facility] ALP [Catalytic activity/Vol] 78 U/L [facility] ALT [Catalytic activity/Vol] 26 U/L [facility] AST [Catalytic activity/Vol] 25 U/L [facility] Bilirubin [Mass/Vol] 0.7 mg/dL [facility] Bilirubin.direct [Mass/Vol] 0.1 mg/dL [facility] Protein [Mass/Vol] 6.7 g/dL [facility] MAGNESIUMon 08-02-2021 Magnesium [Mass/Vol] 2.2 mg/dL [facility] No Panel Informationon 08-02 Interpretation and review of laboratory results Abnormal [facility] PROTIME-INRon 08-02-2021 INR Coag (PPP) [Relative time] 1.24 {INR} High [facility] Comment on above: 2.0-3.0 THERAPEUTIC RANGE 2.5-3.5 MECHANICAL VALVE RANGE Interpretation and review of laboratory results Abnormal [facility] PT Coag (PPP) [Time] 15.7 s [facility] RENAL FUNCTION PANELon 08-02 Albumin [Mass/Vol] 3.0 G/dl Low 3.5 - 5.0 G/dl [facility] Calcium [Mass/Vol] 8.5 mg/dL [facility] Chloride [Moles/Vol] 104 mmol/L [facility] CO2 [Moles/Vol] 20 mmol/L Low [facility] Creatinine [Mass/Vol] 0.76 mg/dL [facility] GFR COMMENT Average GFR for 70+ years old = 75. [facility] Comment on above: Chronic Kidney disea se, GFR = <60. Kidney failure, GFR = <15. The GFR estimate is not adjusted for extreme body surface area or acute process, nor has it been validated for women or ethnic groups other than and . GFR/1.73 sq M.predicted among blacks MDRD (S/P/Bld) [Vol rate/Area] 130 mL/min/{1.73_m2} ml/min/1.73sq .m [facility] GFR/1.73 sq M.predicted among non-blacks MDRD (S/P/Bld) [Vol rate/Area] 108 mL/min/{1.73_m2} ml/min/1.73sq .m [facility] Glucose post fast [Mass/Vol] 138 mg/dL [facility] Comment on above: NORMAL <100 mg/dL PREDIABETES 101-126 mg/dL DIABETES 126 mg/dL or higher Interpretation and review of laboratory results Abnormal [facility] Phosphate [Mass/Vol] 2.6 mg/dL [facility] Potassium [Moles/Vol] 3.9 mmol/L [facility] Sodium [Moles/Vol] 136 mmol/L [facility] Urea nitrogen [Mass/Vol] 12 mg/dL [facility] SEDIMENTATION RATE, AUTOMATE Don 08-02-2021 ESR (Bld) [Velocity] 31 mm/h [facility] Interpretation and review of laboratory results Abnormal [facility] C REACTIVE PROTEINon 022 CRP [Mass/Vol] 55.8 mg/L High 0 - 10.0 MG/L [facility] CBC, EDIF, PLATELETon 2021 Differential cell count method Nom (Bld) MANUAL DIFF % [facility] Erythrocyte distribution width (RBC) [Ratio] 13.4 % 11.5 - 14.5 % [facility] Hematocrit (Bld) [Volume fraction] 37.8 % Low 42.0 - 52.0 % [facility] Hemoglobin (Bld) [Mass/Vol] 13.2 g/dL Low [facility] Immature granulocytes/100 WBC (Bld) 1 % 0.0 - 2.0 % [facility] Interpretation and review of laboratory results Abnormal [facility] Lymphocytes/100 WBC (Bld) 25 % 20.0 - 55.0 % [facility] MCH (RBC) [Entitic mass] 31.9 pg 26.0 - 35.0 PG [facility] MCHC (RBC) [Mass/Vol] 34.9 g/dL [facility] MCV (RBC) [Entitic vol] 91.6 fL [facility] Monocytes/100 WBC (Bld) 28 % High 0.0 - 10.0 % [facility] Morphology Elvin (Bld) [Interp] NORMAL [facility] Neutrophils/100 WBC (Bld) 46 % 37.0 - 75.0 % [facility] Platelet mean volume (Bld) [Entitic vol] 8.5 fL [facility] Platelet morphology finding Nom (Bld) ADEQUATE [facility] Platelets (Bld) [#/Vol] 189 10*3/uL 130.0 - 400.0 10*3/uL [facility] RBC (Bld) [#/Vol] 4.12 10*6/uL 4.0 - 6.1 10*6/uL [facility] WBC (Bld) [#/Vol] 3.2 10*3/uL Low 3.6 - 11.0 10*3/uL [facility] WBC MORPHOLOGY STATUS VACUOLES [facility] HEPATIC FUNCTION PANELon Albumin [Mass/Vol] 2.7 g/dL Low [facility] ALP [Catalytic activity/Vol] 73 U/L [facility] ALT [Catalytic activity/Vol] 22 U/L [facility] AST [Catalytic activity/Vol] 24 U/L [facility] Bilirubin [Mass/Vol] 0.5 mg/dL [facility] Bilirubin.direct [Mass/Vol] 0.1 mg/dL [facility] Protein [Mass/Vol] 5.9 g/dL Low [facility] LEGIONE[facility]A URINARY AGon L. pneumophila 1 Ag IA Ql (U) Negative NEGATIVE [facility] MAGNESIUMon 08-01-2021 Magnesium [Mass/Vol] 1.8 mg/dL [facility] No Panel Informationon 08-01 [facility] Interpretation and review of laboratory results Abnormal [facility] PROTIME-INRon 08-01-2021 INR Coag (PPP) [Relative time] 1.40 {INR} High [facility] Comment on above: 2.0-3.0 THERAPEUTIC RANGE 2.5-3.5 MECHANICAL VALVE RANGE Interpretation and review of laboratory results Abnormal [facility] PT Coag (PPP) [Time] 17.[address] s High [facility] RENAL FUNCTION PANELon 08-01 Albumin [Mass/Vol] 2.7 G/dl Low 3.5 - 5.0 G/dl [facility] Calcium [Mass/Vol] 8.0 mg/dL Low [facility] Chloride [Moles/Vol] 105 mmol/L [facility] CO2 [Moles/Vol] 22 mmol/L [facility] Creatinine [Mass/Vol] 0.96 mg/dL [facility] GFR COMMENT Average GFR for 70+ years old = 75. [facility] Comment on above: Chronic Kidney disea se, GFR = <60. Kidney failure, GFR = <15. The GFR estimate is not adjusted for extreme body surface area or acute process, nor has it been validated for women or ethnic groups other than and . GFR/1.73 sq M.predicted among blacks MDRD (S/P/Bld) [Vol rate/Area] 100 mL/min/{1.73_m2} ml/min/1.73sq .m [facility] GFR/1.73 sq M.predicted among non-blacks MDRD (S/P/Bld) [Vol rate/Area] 82 mL/min/{1.73_m2} ml/min/1.73sq .m [facility] Glucose post fast [Mass/Vol] 104 mg/dL High [facility] Comment on above: NORMAL <100 mg/dL PREDIABETES 101-126 mg/dL DIABETES 126 mg/dL or higher Interpretation and review of laboratory results Abnormal [facility] Phosphate [Mass/Vol] 2.0 mg/dL Low [facility] Potassium [Moles/Vol] 3.5 mmol/L [facility] Sodium [Moles/Vol] 136 mmol/L [facility] Urea nitrogen [Mass/Vol] 12 mg/dL [facility] SEDIMENTATION RATE, AUTOMATE Don 08-01-2021 ESR (Bld) [Velocity] 21 mm/h High [facility] Interpretation and review of laboratory results Abnormal [facility] STREP PNEUMONIAE ANTIGEN, UR INEon 08-01-2021 S. pneumoniae Ag Ql (U) Negative NEGATIVE [facility] US DUPLEX EXTREMITY DVT BILA TERALon 08-01-2021 IMPRESSION: Negative bilateral exam. No sonographic [...] the lower extremity veins on either side. [facility] C REACTIVE PROTEINon 022 CRP [Mass/Vol] 60.2 mg/L High 0 - 10.0 MG/L [facility] CBC, EDIF, PLATELETon 2021 ABSOLUTE BASOPHIL COUNT 0.0 10*3/uL 0.0 - 0.2 10*3/uL [facility] Basophils/100 WBC (Bld) 0.3 % 0.0 - 2.0 % [facility] Differential cell count method Nom (Bld) AUTO DIFF % [facility] Eosinophils (Bld) [#/Vol] 0.00 10*3/uL 0.0 - 0.7 10*3/uL [facility] Eosinophils/100 WBC (Bld) 0.2 % 0.0 - 11.0 % [facility] Erythrocyte distribution width (RBC) [Ratio] 13.2 % 11.5 - 14.5 % [facility] Hematocrit (Bld) [Volume fraction] 43.0 % 42.0 - 52.0 % [facility] Hemoglobin (Bld) [Mass/Vol] 14.9 g/dL [facility] Interpretation and review of laboratory results Abnormal [facility] Lymphocytes (Bld) [#/Vol] 0.50 10*3/uL Low 1.2 - 3.4 10*3/uL [facility] Lymphocytes/100 WBC (Bld) 11.2 % Low 20.0 - 55.0 % [facility] MCH (RBC) [Entitic mass] 31.5 pg 26.0 - 35.0 PG [facility] MCHC (RBC) [Mass/Vol] 34.7 g/dL [facility] MCV (RBC) [Entitic vol] 90.9 fL [facility] Monocytes (Bld) [#/Vol] 0.5 10*3/uL 0.0 - 0.7 10*3/uL [facility] Monocytes/100 WBC (Bld) 11.3 % High 0.0 - 10.0 % [facility] Neutrophils (Bld) [#/Vol] 3.7 10*3/uL 1.4 - 6.5 10*3/uL [facility] Neutrophils/100 WBC (Bld) 77.0 % High 37.0 - 75.0 % [facility] Platelet mean volume (Bld) [Entitic vol] 8.1 fL [facility] Platelets (Bld) [#/Vol] 188 10*3/uL 130.0 - 400.0 10*3/uL [facility] RBC (Bld) [#/Vol] 4.73 10*6/uL 4.0 - 6.1 10*6/uL [facility] WBC (Bld) [#/Vol] 4.8 10*3/uL 3.6 - 11.0 10*3/uL [facility] COMPREHENSIVE METABOLIC PANE Karri 07-31-2021 Albumin [Mass/Vol] 3.4 G/dl Low 3.5 - 5.0 G/dl [facility] Albumin/Globulin [Mass ratio] 0.9 {ratio} Low [facility] ALP [Catalytic activity/Vol] 96 U/L [facility] ALT [Catalytic activity/Vol] 28 U/L [facility] AST [Catalytic activity/Vol] 30 U/L [facility] Bilirubin [Mass/Vol] 0.6 mg/dL [facility] Calcium [Mass/Vol] 8.6 mg/dL [facility] Chloride [Moles/Vol] 99 mmol/L [facility] CO2 [Moles/Vol] 22 mmol/L [facility] Creatinine [Mass/Vol] 1.00 mg/dL [facility] GFR COMMENT Average GFR for 70+ years old = 75. [facility] Comment on above: Chronic Kidney disea se, GFR = <60. Kidney failure, GFR = <15. The GFR estimate is not adjusted for extreme body surface area or acute process, nor has it been validated for women or ethnic groups other than and . GFR/1.73 sq M.predicted among blacks MDRD (S/P/Bld) [Vol rate/Area] 95 mL/min/{1.73_m2} ml/min/1.73sq .m [facility] [employer] [facility] GFR/1.73 sq M.predicted among non-blacks MDRD (S/P/Bld) [Vol rate/Area] 79 mL/min/{1.73_m2} ml/min/1.73sq .m [facility] CampusRocket Software [facility] Glucose post fast [Mass/Vol] 103 mg/dL High [facility] CampusR[facility] Comment on above: NORMAL <100 mg/dL PREDIABETES 101-126 mg/dL DIABETES 126 mg/dL or higher Potassium [Moles/Vol] 3.4 mmol/L Low [place] [employer] [facility] Protein [Mass/Vol] 7.4 g/dL [facility] CampusReward[facility] System Sodium [Moles/Vol] 135 mmol/L Low [facility] CampusR[facility] [employer] Urea nitrogen [Mass/Vol] 12 mg/dL [facility] Campus[facility] CT PE STUDYon 07-31-2021 IMPRESSION: 1. No [...] the liver and left kidney, probably cysts. [facility] Radiology Study observation (narrative) [facility] CT PE STUDYOrdered By: Martin Rice on 07-31-2021 [facility] Work Phone: D-DIMER,QUANTITATIVEon 07-31 Fibrin D-dimer FEU (PPP) [Mass/Vol] 1.95 Critically high <0.50 mg/L FEU [facility] Comment on above: If result is greater than the cutoff value of 0.50 mg/L then the potential for PE or DVT exists. Other conditions exist which may cause a falsely elevated level. Please correlate clinically, including radiological findings and other clinical parameters. Result called to read back by: Kareen COSBY 07/31/2021 @ 12:20 by PMS Interpretation and review of laboratory results Abnormal [facility] ECG (SCANNED)Ordered By: Mirlande Doherty on 07-31-2021 [facility] INFLUENZA A AND B, PCRon FLUAV and FLUBV Ag IF Nom (Unsp spec) Negative NEGATIVE [facility] FLUBV Ag IA Ql (Unsp spec) Negative NEGATIVE [facility] Comment on above: TESTING PERFORMED BY [place] [facility] NOVEL CORONAVIRUS LAB 1 - NA SOPHARYNGEALon 07-31-2021 NARRATIVE -1 This test was performed using isothermal [place] and has been approved as Emergency Use Authorization (EUA) for the qualitative detection [id number] nucleic acid. [facility] SARS-CoV-2 (COVID-19) RNA [place]+probe Ql (Unsp spec) Not detected NOT DETECTED [facility] Comment on above: Negative results [...] patient is critically ill or clinically deteriorating. [facility] No Panel Informationon 07-31 Interpretation and review of laboratory results Abnormal [facility] PROTIME-INRon 07-31-2021 INR Coag (PPP) [Relative time] 1.17 {INR} High [facility] Comment on above: 2.0-3.0 THERAPEUTIC RANGE 2.5-3.5 MECHANICAL VALVE RANGE Interpretation and review of laboratory results Abnormal [facility] PT Coag (PPP) [Time] 15.1 s [facility] SCREEN: MRSA ONLY, NARES (IS OLATION SCREEN)on 07-31-2021 MRSA isol Org specific cx Ql (Nose) Not detected NOT DETECTED [facility] STAPHYOCOCCUS AUREUS BY PCR Not detected NOT DETECTED [facility] SEDIMENTATION RATE, AUTOMATE Don 07-31-2021 ESR (Bld) [Velocity] 44 mm/h [facility] Interpretation and review of laboratory results Abnormal [facility] TROPONIN I, HIGH SENSITIVITY on 07-31-2021 TROPONIN I, HIGH SENSITIVITY 16 pg/mL 0 - 20 pg/mL [facility] Comment on above: Indeterminant: >12 to 100 pg/mL female >20 to 100 pg/mL male Indicative of myocardial injury. Serial sampling is recommended, a change of greater than or equal to 20 pg/mL is indicative of acute coronary syndrome. [facility] TROPONIN I, HIGH SENSITIVITY 8 pg/mL 0 - 20 pg/mL [facility] Comment on above: Indeterminant: >12 to 100 pg/mL female >20 to 100 pg/mL male Indicative of myocardial injury. Serial sampling is recommended, a change of greater than or equal to 20 pg/mL is indicative of acute coronary syndrome. [facility] US DUPLEX EXTREMITY DVT BILA TERALon 07-31-2021 Radiology Study observation (narrative) [facility] VITAMIN D (25-HYDROXY,TOTAL) on 07-31-2021 25-hydroxyvitamin D [Mass/Vol] 15.3 Low >30 NG/ML [facility] Comment on above: DEFICIENT <20 NG/ML INSUFFICIENT 20-<30 NG/ML SUFFICIENT 30-100 NG/ML POTENTIAL TOXICITY >100 NG/ML Interpretation and review of laboratory results Abnormal [facility] Vital Signs Date Time Vital Sign Value Performing Clinician Facility 12-21-2023 14:00-0400 Diastolic blood pressure 75 mm[Hg] Lopez Munson MD Work Phone: [facility] 12-21-2023 14:00-0400 Heart rate 71 /min [facility] 12-21-2023 14:00-0400 Respiratory rate 22 /min Lopez Munson MD Work Phone: [facility] 12-21-2023 14:00-0400 SaO2% (BldA) [Mass fraction] 93 % [facility] 12-21-2023 14:00-0400 Systolic blood pressure 134 mm[Hg] Lopez Munson MD [facility] 12-21-2023 00:35-0400 Body height 182.9 cm Lopez Munson MD [facility] 12-21-2023 00:35-0400 Body mass index (BMI) [Ratio] 26.11 kg/m2 Lopez Munson MD [facility] 12-21-2023 00:35-0400 Body weight 87.32 kg Lopez Munson MD Work Phone: [facility] Comment on above: bed scale room 2 12-21-2023 00:34-0400 Body temperature 97.81 [degF] Lopez Munson MD Work Phone: [facility] 12-07-2023 04:07-0400 Diastolic blood pressure 72 mm[Hg] Tonny Singh MD Work Phone: 5(065)693-656825 [place] [address] 12-07-2023 04:07-0400 Heart rate 78 /min Tonny Singh MD Work Phone: 1(289)275-191625 [place] [address] 12-07-2023 04:07-0400 Respiratory rate 18 /min Tonny Singh MD Work Phone: 6(675)564-792025 [place] [address] 12-07-2023 04:07-0400 SaO2% (BldA) [Mass fraction] 93 % Tonny Singh MD Work Phone: 7(807)[phone] [place] [address] 12-07-2023 04:07-0400 Systolic blood pressure 110 mm[Hg] Tonny Singh MD Work Phone: 1(153)263-814225 [place] [address] 12-07-2023 00:46-0400 Body mass index (BMI) [Ratio] 26.22 kg/m2 Tonny Singh MD Work Phone: 0(101)271-446025 [place] [address] 12-07-2023 00:46-0400 Body weight 87.68 kg Tonny Singh MD Work Phone: 2(649)[phone] [place] [address] 12-07-2023 00:45-0400 Body temperature 98.1 [degF] Tonny Singh MD Work Phone: 6(412)[phone] [place] [address] 08-23-2023 20:26-0500 Diastolic blood pressure 60 mm[Hg] Marisa Overton MD Work Phone: [facility] 08-23-2023 20:26-0500 Heart rate 82 /min Marisa Overton MD Work Phone: [facility] 08-23-2023 20:26-0500 Respiratory rate 16 /min Marisa Overton MD Work Phone: [facility] 08-23-2023 20:26-0500 SaO2% (BldA) [Mass fraction] 94 % Marisa Overton MD Work Phone: [facility] 08-23-2023 20:26-0500 Systolic blood pressure 137 mm[Hg] Marisa Overton MD Work Phone: [facility] 08-23-2023 20:10-0500 Body temperature 98.2 [degF] Marisa Overton MD Work Phone: [facility] 08-23-2023 16:56-0500 Body mass index (BMI) [Ratio] 25.81 kg/m2 Marisa Overton MD Work Phone: [facility] 08-23-2023 16:56-0500 Body weight 86.32 kg Marisa Overton MD Work Phone: [facility] 08-02-2021 11:59-0500 Body temperature 97.59 [degF] Kraig Trevino MD Work Phone: [facility] 08-02-2021 11:59-0500 Diastolic blood pressure 67 mm[Hg] Kraig Trevino MD Work Phone: [facility] 08-02-2021 11:59-0500 Heart rate 92 /min Kraig Trevino MD Work Phone: [facility] 08-02-2021 11:59-0500 Respiratory rate 18 /min Kraig Trevino MD Work Phone: [facility] 08-02-2021 11:59-0500 SaO2% (BldA) [Mass fraction] 92 % Kraig Trevino MD Work Phone: [facility] 08-02-2021 11:59-0500 Systolic blood pressure 128 mm[Hg] Kraig Trevino MD Work Phone: [facility] 08-02-2021 04:12-0500 Body mass index (BMI) [Ratio] 27.37 kg/m2 Kraig Trevino MD Work Phone: [facility] 08-02-2021 04:12-0500 Body weight 91.54 kg Kraig Trevino MD Work Phone: [facility] 08-01-2021 10:03-0500 Body height 182.9 cm Kraig Trevino MD Work Phone: [facility] Encounters Encounter Date Encounter Type Care Provider Facility Start: 02-01-2024 ambulatory DEZ M MICHAEL [facility] Start: 01-23-2024 ambulatory KRANTHI EDGAR II [facility] Start: 01-23-2024 End: 01-23-2024 Subsequent hospital visit by physician Kranthi Edgar MD Work Phone: [facility] Security Inspector Comment on above: Arrived Start: 12-27-2023 ambulatory LOPEZ MUNSON [facility] Start: 12-21-2023 End: 12-21-2023 Emergency department patient visit Lopez Munson MD Work Phone: [facility] Emergency Department Start: 12-07-2023 End: 12-07-2023 Emergency department patient visit Tonny Singh MD Work Phone: [facility] Emergency Department Start: 10-31-2023 ambulatory DEZ [facility] Start: 10-31-2023 End: 10-31-2023 Subsequent hospital visit by physician Dez Bhagat MD Work Phone: [facility] Nuclear Medicine Comment on above: Arrived Start: 08-23-2023 End: 08-23-2023 Emergency department patient visit Marisa Overton MD Work Phone: [facility] Emergency Department Start: 05-11-2023 ambulatory DEZ [facility] Start: 05-11-2023 End: 05-11-2023 Subsequent hospital visit by physician Dez Bhagat MD Work Phone: [facility] CT Scan Comment on above: Arrived Start: 04-28-2023 ambulatory DEZ [facility] Start: 04-10-2023 ambulatory DEZ [facility] Start: 04-10-2023 End: 04-10-2023 Subsequent hospital visit by physician Dez Bhagat MD Work Phone: [facility] Ultrasound Comment on above: Arrived Start: 03-23-2023 ambulatory DEZ [facility] Start: 11-23-2022 End: 11-23-2022 ambulatory SAMANTHA BUTLER Facility:[facility] Start: 08-11-2022 End: 08-15-2022 Evaluation and management of inpatient DR DEZ BHAGAT . Facility:[facility] Start: 06-15-2022 End: 06-18-[address] DEZ BHAGAT . Facility:[facility] Start: 10-21-2021 End: 10-21-2021 Subsequent hospital visit by physician Dez Bhagat MD Work Phone: [facility] Ultrasound Comment on above: Arrived Start: 09-29-2021 End: 09-29-2021 Subsequent hospital visit by physician Dez Bhagat MD Work Phone: [facility] Diagnostic Radiology Comment on above: Arrived Start: 07-31-2021 End: 08-02-2021 Emergency department patient visit Kraig Trevino MD Work Phone: [facility] Med Surg Comment on above: Multifocal pneumonia Start: 09-14-2017 End: 09-15-2017 Ambulatory DEFAULT PHYSICIAN Facility:[facility] Procedures Date Procedure Procedure Detail Performing Clinician Start: 01-23-2024 Echo tthrc r-t 2d w/ wom-mode compl spec&colr d Kranthi Edgar MD Work Phone: Start: 01-23-2024 Cardiovascular funct ion eval w/tilt table w/mntr Kranthi Edgar MD Work Phone: Start: 12-21-2023 Complete blood count with white cell differential, automated Lopez Munson MD Work Phone: Start: 12-21-2023 Creatinine blood Gallo Munson MD Work Phone: Start: 12-21-2023 Ecg routine ecg w/le ast 12 lds w/i&r Lopez Munson MD Work Phone: Start: 12-07-2023 Iadna dna/rna rsv am plified probe technique Tonny Singh MD Work Phone: Start: 12-07-2023 Infectious agent dna /rna influenza 1st 2 types Tonny Singh MD Work Phone: Start: 12-07-2023 Radiologic exam ches t single view Tonny Singh MD Work Phone: Start: 12-07-2023 Complete blood count with white cell differential, automated Tonny Singh MD Work Phone: Start: 12-07-2023 Comprehensive metabolic panel Tonny Singh MD Work Phone: Start: 12-07-2023 Ecg routine ecg w/le ast 12 lds w/i&r Tonny Singh MD Work Phone: Start: 10-31-2023 Myocardial spect sin gle study at rest or stress Dez Bhagat MD Work Phone: Start: 08-23-2023 Ct angiography chest w/contrast/noncontrast Marisa Overton MD Work Phone: Start: 08-23-2023 Radiologic exam ches t single view Marisa Overton MD Work Phone: Start: 08-23-2023 Iadna dna/rna rsv am plified probe technique Marisa Overton MD Work Phone: Start: 08-23-2023 Iadna nos amplified probe tq each organism Marisa Overton MD Work Phone: Start: 08-23-2023 Quantitative PCR analysis Marisa Overton MD Work Phone: Start: 08-23-2023 Complete blood count with white cell differential, automated Marisa Overton MD Work Phone: Start: 08-23-2023 End: 08-23-2023 Comprehensive metabolic panel Marisa street MD Work Phone: Start: 05-11-2023 Ct soft tissue neck w/contrast material Dez Bhagat MD Work Phone: Start: 04-10-2023 Us soft tissue head & neck real time imge docm Dez Bhagat MD Work Phone: Start: 10-21-2021 Us abdominal real ti me w/image limited Dez Bhagat MD Work Phone: Start: 09-29-2021 Radiologic exam chest 2 views Dez Bhagat MD Work Phone: Start: 08-02-2021 C-reactive protein [facility] sydney Kiko PA-C Work Phone: Start: 08-02-2021 Complete blood count with white cell differential, automated Huan Hoover PA-C Work Phone: Start: 08-02-2021 Renal function panel De kai Kiko PA-C Work Phone: Start: 08-01-2021 Iaad ia mult step me thod nos each organism Huan Hoover PA-C Work Phone: Start: 08-01-2021 C-reactive protein [facility] sydney Kiko PA-C Work Phone: Start: 08-01-2021 Renal function panel De kai Kiko PA-C Work Phone: Start: 07-31-2021 Assay of troponin quantitative Osmin Luna MD Work Phone: Start: 07-31-2021 Dup-scan xtr veins c omplete bilateral study Esmeralda Kiko PA-C Work Phone: Start: 07-31-2021 Cultyp nuc [...] Treatment Date Care Activity Detail Author Start: 02-25-2024 Influenza vaccination A [facility] Start: 02-01-2024 End: 02-01-2024 Patient encounter procedure 02/01/2024 1:20 PM EDT Office Visit [facility] [address] [place] [address] Kranthi Edgar II, MD [address] [place] [address] [facility] Start: 02-24-2023 COVID-19 VACCINE ( season) COVID-19 VACCINE ( season) [facility] Start: 02-24-2023 Influenza vaccination INFLUENZA VACC INE (#1) [facility] Start: 02-24-2022 Influenza vaccination INFLUENZ A VACCINE (Season Ended) [facility] Start: 02-24-2021 Influenza vaccination INFLUENZA VACC INE (#1) [facility] Start: 2015 Abdominal aortic aneurysm screening ABDOMINAL AORTIC ANEURYSM HIGH RISK SCREEN [facility] Start: 2015 Pneumococcal vaccination PNEUMOCOCCAL VACCINE SERIES (1 of 1 - PPSV23) [facility] Start: 2000 Prostate specific antigen measurement PROSTATE CANCER SCREENING DISCUSSION [facility] Start: 2000 Zoster vaccine hzv l ely for subcutaneous use ZOSTER (SHINGLES) VACCINE (1 of 2) [facility] Start: 1995 Colonoscopy COLORECTAL CAN CER SCREENING DISCUSSION [facility] Start: 1995 Screening for malign ant neoplasm of colon COLORECTAL CANCER SCREENING DISCUSSION [facility] Start: 1990 Fasting lipid profile LIPID SCREENIN G [facility] Start: 1990 Lipid panel LIPID SCREENING [facility] Start: 1969 Third diphtheria, tetanus and acellular pertussis (DTaP) vaccination TDAP (ADULT) [facility] Start: 1968 Tetanus vaccination TETANUS [facility] Start: 1956 Pneumococcal vaccination [facility] Start: 1955 COVID-19 VACCINE (#1) COVID-19 VACCI NE (#1) [facility] Start: 1955 COVID-19 VACCINE (1) COVID-19 VACCIN E (1) [facility] Start: [birth year]14-1951 COVID-19 VACCINE (#1) COVID-19 VACCI NE (#1) [facility] Start: 1950 Hepatitis C antibody , confirmatory test HEPATITIS C VIRUS SCREENING [facility] Start: 1950 Hepatitis C screening HEPATITI S C VIRUS SCREENING [facility] Start: 1950 Tetanus vaccination TETANUS [facility] Bacteria identified in Blood by Culture [facility] End: 10-31-2023 [employer] - [employer] - [facility] ECG Routine Dyspnea, unspecified type 1 Occurrences starting 10/31/2023 until 10/31/2023 [facility] Work Phone: Comment on above: 1 Occurrences starti ng 10/31/2023 until 10/31/2023 End: 07-31-2021 Standard ECG ECG ECG STAT One Time for 1 Occurrences starting 07/31/2021 until 07/31/2021 [facility] Comment on above: One Time for 1 Occur rences starting 07/31/2021 until 07/31/2021 End: 08-23-2023 Standard ECG ECG ECG STAT One Time for 1 Occurrences starting 08/23/2023 until 08/23/2023 [facility] Comment on above: One Time for 1 Occur rences starting 08/23/2023 until 08/23/2023 Standard ECG ECG ECG Routine 12/07/2023 12:39 AM EDT [facility] Standard ECG ECG ECG STAT 12:22 AM T [facility] End: 01-23-2024 US.doppler Carotid arteries - bilateral [facility] Work Phone: Comment on above: 1 Occurrences starti ng 01/23/2024 until 01/23/2024 Payers Date Payer Category Payer Medicare [employer] MED[employer] HMO PPO [id number] 2021-Present [address] [place] [address] [id number] 2019 Medicare MEDICARE ANTHEM HMO OR PPO MEDICARE ANTHEM HMO OR PPO [id number] 2019-Present [address] [place] [address] [id number] 1959 Medicare [id number] 1950 Unknown [id number] 1950 Unknown [id number] [id number] 1950 Unknown [id number] [id number] 1950 Unknown [id number] 2.16.840.1.839249.3.579.2.983 1950 Unknown [id number] 2.16.840.1.032960.3.579.2.983 1950 Unknown [id number] 2.16.840.1.490931.3.579.2.983 1950 Unknown [id number] 2.16.840.1.037859.3.579.2.983 1950 Unknown [id number] [id number] 1950 Unknown [id number] 2.16.840.1.894873.3.579.2.983 1950 Unknown [id number] 2.16.840.1.436714.3.579.2.983 1950 Unknown [id number] 2.16.840.1.056677.3.579.2.983 1950 Unknown [id number] 2.16.840.1.672983.3.579.2.983 1950 Unknown [id number] 2.16.840.1.979458.3.579.2.983 1950 Unknown [id number] 2.16.840.1.955880.3.579.2.983 1950 Unknown [id number] 2.16.840.1.123318.3.579.2.983 1950 Unknown [id number] 2.16.840.1.497215.3.579.2.983 1950 Unknown [id number] [id number] 1950 Unknown [id number] [id number] Unknown Social History Date Type Detail Facility Start: 07-31-2021 End: 08-23-2023 Tobacco smoking status NHIS Smokes tobacco daily [facility] Start: 07-31-2021 End: 08-23-2023 Tobacco use and exposure Smokeless tobacco non-user [facility] Start: 07-31-2021 End: 12-27-2023 Alcohol intake Lifetime non-drinker (finding) [facility] Start: 07-31-2021 History SDOH Alcohol Frequency 1 [facility] Start: 1950 Sex Assigned At Not on file [facility] Exposure to SARS-CoV -2 (event) Yes [facility] History of tobacco use Cigarette Smoker A [facility] Start: 08-19-2022 End: 12-27-2023 Cigarettes smoked current (pack per day) - Reported 1 [facility] Start: 08-19-2022 End: 12-27-2023 Tobacco use panel [facility] Clinical Notes 07-31-2021 to 12-21-2023 Discharge InstructionsAttachmentsLopez Munson MD - 12/21/2023 1:25 AM MARIELntdannie Munson MD - 12/21/2023 1:25 AM EDTLeaneta Singh MD - 12/07/2023 1:24 AM EDTDischarge Instr - Activity Note Date & Type Note Facility 12-21-2023 Hospital Discharg e instructions Lopez Munson MD - 12/21/2023 2:21 AM EDT Continue present medications. Call Dr. Mendoza office tomorrow morning and arrange for follow-up. Dial 911 or return to the ER immediately if you develop recurrence of chest pain or feel worse in any way. The following attachments cannot be sent through Care Everywhere.[facility] ([facility]) (Chilean)Chest Pain (Chilean)Chronic Obstructive Pulmonary Disease (COPD) ([facility]) (Chilean)documented in this encounter [facility] 12-21-2023 Physician Emergency department Note Emergency Room Note [facility] EMERGENCY DEPARTMENT Service Date:.12/21/23 PCP: Dez Bhagat Chief Complaint: Chief Complaint Patient presents with Chest Pain Left sided chest pain 10/10 while watching tv tonight, reports better now HPI Raul Menon is a 73 y.o. male presents to the ED today due to chest pain. Patient states he was laying down watching television when he had sudden onset of a sharp, stabbing pain left side of the chest that went toward his back. He states he sat up and the pain went away after about 2 minutes. He did feel little short of breath. He has a longstanding smoking history and states he always has some wheezing and noise in his lungs. Review of Systems: Review of Systems He denies any fever chills. He chronically coughs. States this is unchanged. He has no recent nausea, vomiting, or other gastrointestinal complaints. No recent dysuria. Denies any increased swelling or edema of his extremities. No recent lightheadedness or syncope. Denies any falls or trauma. He thinks he may bruise easily but he has not noticed any abnormal bleeding. Past Medical History: Past Medical History: Diagnosis Date COPD (chronic obstructive pulmonary disease) Past Surgical History: No past surgical history on file. Allergies: Allergies Allergen Reactions Ketorolac Nausea and Vomiting nausea vomiting Ascorbate Hives Large doses per pt Prednisone ALL STEROIDS Other reaction(s): Intolerance Cardiac reaction per pt Medications: Patient's Medications New Prescriptions No medications on file Previous Medications ALBUTEROL (2.5 MG/3ML) 0.083% INHALATION SOLUTION Take 3 mL by nebulization every 6 hours as needed for Shortness of Breath. ALBUTEROL 108 (90 BASE) MCG/ACT AERO SOLN INHALER Inhale 1 puff every 6 hours as needed for Shortness of Breath. AMOXICILLIN-CLAVULANATE 875-125 MG TABLET Take 1 tablet by mouth every 12 hours. CEFDINIR (OMNICEF) 300 MG CAPSULE Take 2 capsules by mouth daily. MOMETASONE FURO-FORMOTEROL FUM 200-5 MCG/PUFF AEROSOL Inhale 2 puffs every 12 hours. PREDNISONE 10 MG TABLET TAKE 4 TABLETS BY MOUTH ONCE DAILY IN THE MORNING FOR 3 DAYS THEN 3 ONCE DAILY FOR 3 DAYS THEN 2 ONCE DAILY FOR 3 DAYS THEN 1 ONCE DAILY FOR 3 DAYS THEN 1/2 (ONE-HALF) ONCE DAILY FOR 3 DAYS THEOPHYLLINE 300 MG TAB SR 12 HR TAKE 1 TABLET BY MOUTH TWICE DAILY GIVE ON AN EMPTY STOMACH. DO NOT CRUSH OR CHEW Modified Medications No medications on file Discontinued Medications No medications on file Family History: No family history on file. Social History: Social History Socioeconomic History Marital status: Spouse name: Not on file Number of children: Not on file Years of education: Not on file Highest education level: Not on file Occupational History Not on file Tobacco Use Smoking status: Every Day Current packs/day: 0.50 Types: Cigarettes Smokeless tobacco: Never Vaping Use Vaping status: Never Used Substance and Sexual Activity Alcohol [...] Housing Stability: Not on file Physical Exam: Physical Exam He is speaking in full sentences. He has not using accessory muscles. Respiratory rate is 18 on my exam and is nonlabored. Sclerae and conjunctiva clear moist. Mouth has pink moist mucosa. He speaks in a normal voice and handle secretions out difficulty. Neck is supple and trachea is midline. No crepitus or subcu emphysema. Neck veins appear flat. Lungs have diminished breath sounds bilaterally with diffuse coarse rhonchi and fine musical wheezes on expiration throughout. There is some prolongation of the expiratory phase. Heart is regular with overlying respiratory noises. Chest has symmetrical excursion. He has a little tenderness over the costal sternal margins but states this is not the pain he was complaining of. Abdomen is soft and nontender. No flank or back tenderness. Radial pulses are symmetrical. Skin is warm and dry and well-perfused. No posterior calf tenderness. No pitting peripheral edema. He does move all 4 extremities on command with good muscle tone and strength. Vital Signs During ED Visit Patient Vitals for the past 24 hrs: BP Temp Temp src Pulse Resp SpO2 Height Weight 12/21/23 0200 134/75 -- -- 71 22 93 % -- -- 12/21/23 0035 -- -- -- -- -- -- 1.829 m (6') 87.3 kg (192 lb 8 oz) 12/21/23 0034 162/79 97.8 F (36.6 C) Oral 81 16 97 % -- -- EKG: Sinus rhythm at 84 beats per minute. [place] is normal. NC interval is 146 milliseconds. QRS duration is 94 milliseconds. There is marked baseline irregularity and nonspecific STT wave changes present. No acute ST-elevation in contiguous leads. It is similar to previous EKG done December 08, 2023. Orders/Results: Orders Placed This Encounter Troponin I, High sensitivity CHEM 7 (LYTES,BUN,CREA,GLUC) CBC, EDIF, PLATELET AMB REFERRAL TO CARDIOVASCULAR MEDICINE ECG Ondansetron 4mg/2ml (ZOFRAN) injection 4 mg Pantoprazole (PROTONIX) injection 40 mg Ipratropium-albuterol (DUONEB) 0.5-2.5 (3) MG/3ML nebulizer solution 3 mL methylPREDNISolone sodium succinate (SOLU-MEDROL) injection 80 mg GI cocktail: alum/mag hydrox-simethicone(30ml)+lidocain e 2%(10ml) oral suspension 40 mL Results for orders placed or performed during the hospital encounter of 12/21/23 TROPONIN I, HIGH SENSITIVITY Result Value Ref Range TROPONIN I, HIGH SENSITIVITY 5 0 - 20 pg/mL CHEM 7 (LYTES,BUN,CREA,GLUC) Result Value Ref Range Glucose 90 70 - 100 MG/DL BUN 15 7 - 20 MG/DL CREATININE SERUM 1.10 0.70 - 1.20 MG/DL SODIUM 139 137 - 145 MMOL/L POTASSIUM 4.2 3.5 - 5.1 MMOL/L CHLORIDE 108 (H) 98 - 107 MMOL/L CARBON DIOXIDE (CO2) 26 22 - 30 MMOL/L ESTIMATED GFR, NON AMER 70 ml/min/1.73sq.m ESTIMATED GFR, 84 ml/min/1.73sq.m GFR COMMENT Average GFR for 70+ years old = 75. CBC, EDIF, PLATELET Result Value Ref Range WBC (WHITE BLOOD COUNT) 8.9 3.6 - 11.0 10*3/uL RBC 4.93 4.0 - 6.1 10*6/uL HEMOGLOBIN (HGB) 15.0 14.0 - 18.0 G/DL HEMATOCRIT (HCT) 44.7 42.0 - 52.0 % MEAN CELL VOLUME 90.6 80.0 - 100.0 FL Mean Cell HGB 30.4 26.0 - 35.0 PG MEAN CELL HGB CONCENTRATION 33.6 27.0 - 37.0 G/DL RBC DISTRIBUTION 15.4 (H) 11.5 - 14.5 % PLATELET COUNT 434 (H) 130 - 400 10*3/uL MEAN PLATELET VOLUME 6.9 (L) 7.4 - 11.0 FL DIFFERENTIAL TYPE AUTO DIFF % NEUTROPHILS 60.1 37.0 - 75.0 % LYMPHOCYTE 25.1 20.0 - 55.0 % MONOCYTE % 9.5 0.0 - 10.0 % EOSINOPHIL % 4.0 0.0 - 11.0 % BASOPHIL % 1.3 0.0 - 2.0 % Absolute Neutrophil Count 5.4 1.4 - 6.5 10*3/uL LYMPHOCYTES, ABSOLUTE 2.2 1.2 - 3.4 10*3/uL MONOCYTES, ABSOLUTE 0.9 (H) 0.0 - 0.7 10*3/uL ABSOLUTE EOSINOPHIL COUNT 0.4 0.0 - 0.7 10*3/uL ABSOLUTE BASOPHIL COUNT 0.1 0.0 - 0.2 10*3/uL Radiographic Imaging No orders to display Procedures: Procedures Moderate Sedation Procedure: No ED Summary/MDM Patient refused DuoNeb aerosols as well as steroids. States he has all this at home. He would not allow chest x-ray to be done. Patient is feeling improved. Troponin is not elevated. He did not want to stay for repeat troponin. Patient states he feels good and wants to go home. I did speak with him and his . He is able to make his own medical decisions and he understands the risks and benefits that were explained to him. He chooses to go at this time. He is to continue present medications. Follow up with his doctor as well as Dr. Mendoza. Return if any other questions or concerns. Clinical Impression: 1. Chest pain, unspecified type 2. Chronic obstructive pulmonary disease, unspecified COPD type No follow-ups on file. New Prescriptions No medications on file Discontinued Medications No medications on file An After Visit Summary was printed and given to the patient with above information. . Lopez Munson MD 12/21/23 0223 [facility] 12-21-2023 Emergency department Note Emergency Room Note [facility] EMERGENCY DEPARTMENT Service Date:.12/21/23 PCP: Dez Bhagat Chief Complaint: Chief Complaint Patient presents with Chest Pain Left sided chest pain 10/10 while watching tv tonight, reports better now HPI Raul Menon is a 73 y.o. male presents to the ED today due to chest pain. Patient states he was laying down watching television when he had sudden onset of a sharp, stabbing pain left side of the chest that went toward his back. He states he sat up and the pain went away after about 2 minutes. He did feel little short of breath. He has a longstanding smoking history and states he always has some wheezing and noise in his lungs. Review of Systems: Review of Systems He denies any fever chills. He chronically coughs. States this is unchanged. He has no recent nausea, vomiting, or other gastrointestinal complaints. No recent dysuria. Denies any increased swelling or edema of his extremities. No recent lightheadedness or syncope. Denies any falls or trauma. He thinks he may bruise easily but he has not noticed any abnormal bleeding. Past Medical History: Past Medical History: Diagnosis Date COPD (chronic obstructive pulmonary disease) Past Surgical History: No past surgical history on file. Allergies: Allergies Allergen Reactions Ketorolac Nausea and Vomiting nausea vomiting Ascorbate Hives Large doses per pt Prednisone ALL STEROIDS Other reaction(s): Intolerance Cardiac reaction per pt Medications: Patient's Medications New Prescriptions No medications on file Previous Medications ALBUTEROL (2.5 MG/3ML) 0.083% INHALATION SOLUTION Take 3 mL by nebulization every 6 hours as needed for Shortness of Breath. ALBUTEROL 108 (90 BASE) MCG/ACT AERO SOLN INHALER Inhale 1 puff every 6 hours as needed for Shortness of Breath. AMOXICILLIN-CLAVULANATE 875-125 MG TABLET Take 1 tablet by mouth every 12 hours. CEFDINIR (OMNICEF) 300 MG CAPSULE Take 2 capsules by mouth daily. MOMETASONE FURO-FORMOTEROL FUM 200-5 MCG/PUFF AEROSOL Inhale 2 puffs every 12 hours. PREDNISONE 10 MG TABLET TAKE 4 TABLETS BY MOUTH ONCE DAILY IN THE MORNING FOR 3 DAYS THEN 3 ONCE DAILY FOR 3 DAYS THEN 2 ONCE DAILY FOR 3 DAYS THEN 1 ONCE DAILY FOR 3 DAYS THEN 1/2 (ONE-HALF) ONCE DAILY FOR 3 DAYS THEOPHYLLINE 300 MG TAB SR 12 HR TAKE 1 TABLET BY MOUTH TWICE DAILY GIVE ON AN EMPTY STOMACH. DO NOT CRUSH OR CHEW Modified Medications No medications on file Discontinued Medications No medications on file Family History: No family history on file. Social History: Social History Socioeconomic History Marital status: Spouse name: Not on file Number of children: Not on file Years of education: Not on file Highest education level: Not on file Occupational History Not on file Tobacco Use Smoking status: Every Day Current packs/day: 0.50 Types: Cigarettes Smokeless tobacco: Never Vaping Use Vaping status: Never Used Substance and Sexual Activity Alcohol [...] Housing Stability: Not on file Physical Exam: Physical Exam He is speaking in full sentences. He has not using accessory muscles. Respiratory rate is 18 on my exam and is nonlabored. Sclerae and conjunctiva clear moist. Mouth has pink moist mucosa. He speaks in a normal voice and handle secretions out difficulty. Neck is supple and trachea is midline. No crepitus or subcu emphysema. Neck veins appear flat. Lungs have diminished breath sounds bilaterally with diffuse coarse rhonchi and fine musical wheezes on expiration throughout. There is some prolongation of the expiratory phase. Heart is regular with overlying respiratory noises. Chest has symmetrical excursion. He has a little tenderness over the costal sternal margins but states this is not the pain he was complaining of. Abdomen is soft and nontender. No flank or back tenderness. Radial pulses are symmetrical. Skin is warm and dry and well-perfused. No posterior calf tenderness. No pitting peripheral edema. He does move all 4 extremities on command with good muscle tone and strength. Vital Signs During ED Visit Patient Vitals for the past 24 hrs: BP Temp Temp src Pulse Resp SpO2 Height Weight 12/21/23 0200 134/75 -- -- 71 22 93 % -- -- 12/21/23 0035 -- -- -- -- -- -- 1.829 m (6') 87.3 kg (192 lb 8 oz) 12/21/23 0034 162/79 97.8 F (36.6 C) Oral 81 16 97 % -- -- EKG: Sinus rhythm at 84 beats per minute. [place] is normal. NC interval is 146 milliseconds. QRS duration is 94 milliseconds. There is marked baseline irregularity and nonspecific STT wave changes present. No acute ST-elevation in contiguous leads. It is similar to previous EKG done December 08, 2023. Orders/Results: Orders Placed This Encounter Troponin I, High sensitivity CHEM 7 (LYTES,BUN,CREA,GLUC) CBC, EDIF, PLATELET AMB REFERRAL TO CARDIOVASCULAR MEDICINE ECG Ondansetron 4mg/2ml (ZOFRAN) injection 4 mg Pantoprazole (PROTONIX) injection 40 mg Ipratropium-albuterol (DUONEB) 0.5-2.5 (3) MG/3ML nebulizer solution 3 mL methylPREDNISolone sodium succinate (SOLU-MEDROL) injection 80 mg GI cocktail: alum/mag hydrox-simethicone(30ml)+lidocain e 2%(10ml) oral suspension 40 mL Results for orders placed or performed during the hospital encounter of 12/21/23 TROPONIN I, HIGH SENSITIVITY Result Value Ref Range TROPONIN I, HIGH SENSITIVITY 5 0 - 20 pg/mL CHEM 7 (LYTES,BUN,CREA,GLUC) Result Value Ref Range Glucose 90 70 - 100 MG/DL BUN 15 7 - 20 MG/DL CREATININE SERUM 1.10 0.70 - 1.20 MG/DL SODIUM 139 137 - 145 MMOL/L POTASSIUM 4.2 3.5 - 5.1 MMOL/L CHLORIDE 108 (H) 98 - 107 MMOL/L CARBON DIOXIDE (CO2) 26 22 - 30 MMOL/L ESTIMATED GFR, NON AMER 70 ml/min/1.73sq.m ESTIMATED GFR, 84 ml/min/1.73sq.m GFR COMMENT Average GFR for 70+ years old = 75. CBC, EDIF, PLATELET Result Value Ref Range WBC (WHITE BLOOD COUNT) 8.9 3.6 - 11.0 10*3/uL RBC 4.93 4.0 - 6.1 10*6/uL HEMOGLOBIN (HGB) 15.0 14.0 - 18.0 G/DL HEMATOCRIT (HCT) 44.7 42.0 - 52.0 % MEAN CELL VOLUME 90.6 80.0 - 100.0 FL Mean Cell HGB 30.4 26.0 - 35.0 PG MEAN CELL HGB CONCENTRATION 33.6 27.0 - 37.0 G/DL RBC DISTRIBUTION 15.4 (H) 11.5 - 14.5 % PLATELET COUNT 434 (H) 130 - 400 10*3/uL MEAN PLATELET VOLUME 6.9 (L) 7.4 - 11.0 FL DIFFERENTIAL TYPE AUTO DIFF % NEUTROPHILS 60.1 37.0 - 75.0 % LYMPHOCYTE 25.1 20.0 - 55.0 % MONOCYTE % 9.5 0.0 - 10.0 % EOSINOPHIL % 4.0 0.0 - 11.0 % BASOPHIL % 1.3 0.0 - 2.0 % Absolute Neutrophil Count 5.4 1.4 - 6.5 10*3/uL LYMPHOCYTES, ABSOLUTE 2.2 1.2 - 3.4 10*3/uL MONOCYTES, ABSOLUTE 0.9 (H) 0.0 - 0.7 10*3/uL ABSOLUTE EOSINOPHIL COUNT 0.4 0.0 - 0.7 10*3/uL ABSOLUTE BASOPHIL COUNT 0.1 0.0 - 0.2 10*3/uL Radiographic Imaging No orders to display Procedures: Procedures Moderate Sedation Procedure: No ED Summary/MDM Patient refused DuoNeb aerosols as well as steroids. States he has all this at home. He would not allow chest x-ray to be done. Patient is feeling improved. Troponin is not elevated. He did not want to stay for repeat troponin. Patient states he feels good and wants to go home. I did speak with him and his . He is able to make his own medical decisions and he understands the risks and benefits that were explained to him. He chooses to go at this time. He is to continue present medications. Follow up with his doctor as well as Dr. Mendoza. Return if any other questions or concerns. Clinical Impression: 1. Chest pain, unspecified type 2. Chronic obstructive pulmonary disease, unspecified COPD type No follow-ups on file. New Prescriptions No medications on file Discontinued Medications No medications on file An After Visit Summary was printed and given to the patient with above information. . Lopez Munson MD 12/21/23 0223 documented in this encounter [facility] 12-07-2023 Physician Emergency department Note Emergency Department Report [facility] EMERGENCY DEPARTMENT Service Date:.12/07/23 PCP: Dez Bhagat Chief Complaint: Chief Complaint Patient presents with Shortness of Breath Pt states Sob worsened since Monday. Pt states no relief with brerathing treatments, hx of COPD, abdominal use, subcostal retractions. Pt states CP on LEFT side of chest, radiates to back. Arm swelling Pt states LEFT arm swelling present at LEFT AC, with raised bump. Redness and warmth present to area, no raised bump. Pt denies fevers. HPI Raul Menon is a 73 y.o. male presents to the ED today due to shortness of breath. Symptoms have been going on for few days but worse over the past couple days. Patient denies fever he has had a cough has been nonproductive no sick contacts no recent travel. Patient denies chest pain. There is no report of bowel or bladder dysfunction. Review of Systems: Review of Systems All other systems reviewed and are negative. Past Medical History: Past Medical History: Diagnosis Date COPD (chronic obstructive pulmonary disease) Past Surgical History: No past surgical history on file. Allergies: Allergies Allergen Reactions Ketorolac Nausea and Vomiting nausea vomiting Ascorbate Hives Large doses per pt Prednisone ALL STEROIDS Other reaction(s): Intolerance Cardiac reaction per pt Medications: Discharge Medication List as of 12/07/2023 4:22 AM CONTINUE these medications which have CHANGED Details levoFLOXacin 500 MG tablet Take 1 tablet by mouth daily for 7 days. Normal Disp-7 tablet, R-0 CONTINUE these medications which have NOT CHANGED Details albuterol (2.5 MG/3ML) 0.083% inhalation solution Take 3 mL by nebulization every 6 hours as needed for Shortness of Breath. Historical Med albuterol 108 (90 Base) MCG/ACT Aero Soln inhaler Inhale 1 puff every 6 hours as needed for Shortness of Breath. Historical Med mometasone Furo-Formoterol Fum 200-5 MCG/puff Aerosol Inhale 2 puffs every 12 hours. Historical Med theophylline 300 MG Tab SR 12 HR TAKE 1 TABLET BY MOUTH TWICE DAILY GIVE ON AN EMPTY STOMACH. DO NOT CRUSH OR CHEW Historical Med Amoxicillin-clavulanate 875-125 MG tablet Take 1 tablet by mouth every 12 hours. Historical Med Cefdinir (OMNICEF) 300 MG capsule Take 2 capsules by mouth daily. Historical Med predniSONE 10 MG tablet TAKE 4 TABLETS BY MOUTH ONCE DAILY IN THE MORNING FOR 3 DAYS THEN 3 ONCE DAILY FOR 3 DAYS THEN 2 ONCE DAILY FOR 3 DAYS THEN 1 ONCE DAILY FOR 3 DAYS THEN 1/2 (ONE-HALF) ONCE DAILY FOR 3 DAYS Historical Med Family History: History reviewed. No pertinent family history. Social History: Social History Socioeconomic History Marital status: Spouse name: Not on file Number of children: Not on file Years of education: Not on file Highest education level: Not on file Occupational History Not on file Tobacco Use Smoking status: Every Day Current packs/day: 0.50 Types: Cigarettes Smokeless tobacco: Never Vaping Use Vaping status: Never Used Substance and Sexual Activity Alcohol [...] Housing Stability: Not on file Physical Exam: Physical Exam Constitutional: Appearance: Normal appearance. HENT: Head: Normocephalic and atraumatic. Right Ear: Tympanic membrane and external ear normal. Left Ear: Tympanic membrane and external ear normal. Nose: Nose normal. Mouth/Throat: Mouth: Mucous membranes are moist. Pharynx: Oropharynx is clear. Eyes: Pupils: Pupils are equal, round, and reactive to light. Cardiovascular: Rate and Rhythm: Normal rate and regular rhythm. Heart sounds: Normal heart sounds. Pulmonary: Effort: Pulmonary effort is normal. Breath sounds: Decreased breath sounds and wheezing present. Abdominal: General: Bowel sounds are normal. There is no distension. Palpations: Abdomen is soft. Tenderness: There is no abdominal tenderness. There is no guarding or rebound. Musculoskeletal: General: Normal range of motion. Cervical back: Normal range of motion and neck supple. Skin: General: Skin is warm and dry. Capillary Refill: Capillary refill takes less than 2 seconds. Findings: No erythema. Neurological: General: No focal deficit present. Mental Status: He is alert and oriented to person, place, and time. Mental status is at baseline. Cranial Nerves: No cranial nerve deficit. Sensory: No sensory deficit. Motor: No weakness. Coordination: Coordination normal. Deep Tendon Reflexes: Reflexes normal. Psychiatric: Mood and Affect: Mood normal. Behavior: Behavior normal. Vital Signs During ED Visit Patient Vitals for the past 24 hrs: BP Temp Temp src Pulse Resp SpO2 Weight 12/07/23 0407 110/72 -- -- 78 18 93 % -- 12/07/23 0306 132/72 -- -- 82 16 96 % -- 12/07/23 0148 119/73 -- -- 88 20 94 % -- 12/07/23 0046 -- -- -- -- -- -- 87.7 kg (193 lb 4.8 oz) 12/07/23 0045 (!) 138/91 98.1 F (36.7 C) Oral 100 (!) 40 94 % -- 12/07/23 0041 -- -- -- -- -- 94 % -- Orders/Results: Orders Placed This Encounter [facility] - NASOPHARYNGEAL XR CHEST PA 1 VIEW Troponin I, High sensitivity COMPREHENSIVE METABOLIC PANEL CBC, EDIF, PLATELET MAGNESIUM INFLUENZA A AND B, PCR ECG Ipratropium-albuterol (DUONEB) 0.5-2.5 (3) MG/3ML nebulizer solution 3 mL methylPREDNISolone sodium succinate (SOLU-MEDROL) injection 125 mg Ipratropium-albuterol (DUONEB) 0.5-2.5 (3) MG/3ML nebulizer solution levoFLOXacin 500 MG tablet RESPIRATORY SYNCYTIAL VIRUS PCR Results for orders placed or performed during the hospital encounter of 12/07/23 [facility] - NASOPHARYNGEAL Specimen: NASOPHARYNGEAL; Fluid/Swab Result Value Ref Range SARS COV 2 RNA, QL REAL TIME RT PCR NOT DETECTED NOT DETECTED NARRATIVE -1 This test was performed using isothermal [place] and has been approved as Emergency Use Authorization (EUA) for the qualitative detection [id number] nucleic acid. TROPONIN I, HIGH SENSITIVITY Result Value Ref Range TROPONIN I, HIGH SENSITIVITY 16 0 - 20 pg/mL COMPREHENSIVE METABOLIC PANEL Result Value Ref Range Glucose 111 (H) 70 - 100 MG/DL BUN 18 7 - 20 MG/DL CREATININE SERUM 1.30 (H) 0.70 - 1.20 MG/DL SODIUM 138 137 - 145 MMOL/L POTASSIUM 4.1 3.5 - 5.1 MMOL/L CHLORIDE 105 98 - 107 MMOL/L CALCIUM 8.6 8.4 - 10.2 MG/DL PROTEIN, TOTAL 6.8 6.3 - 8.2 GM/DL Albumin 4.0 3.5 - 5.0 G/dl BILIRUBIN, TOTAL 0.4 0.2 - 1.3 MG/DL AST 20 17 - 59 IU/L ALKALINE PHOSPHATASE 99 38 - 126 IU/L CARBON DIOXIDE (CO2) 29 22 - 30 MMOL/L A/G Ratio 1.4 RATIO ALT 21 <50 IU/L ESTIMATED GFR, NON AMER 58 ml/min/1.73sq.m ESTIMATED GFR, 70 ml/min/1.73sq.m GFR COMMENT Average GFR for 70+ years old = 75. CBC, EDIF, PLATELET Result Value Ref Range WBC (WHITE BLOOD COUNT) 7.6 3.6 - 11.0 10*3/uL RBC 5.04 4.0 - 6.1 10*6/uL HEMOGLOBIN (HGB) 15.5 14.0 - 18.0 G/DL HEMATOCRIT (HCT) 45.4 42.0 - 52.0 % MEAN CELL VOLUME 90.2 80.0 - 100.0 FL Mean Cell HGB 30.8 26.0 - 35.0 PG MEAN CELL HGB CONCENTRATION 34.2 27.0 - 37.0 G/DL RBC DISTRIBUTION 14.3 11.5 - 14.5 % PLATELET COUNT 377 130 - 400 10*3/uL MEAN PLATELET VOLUME 7.3 (L) 7.4 - 11.0 FL DIFFERENTIAL TYPE AUTO DIFF % NEUTROPHILS 65.2 37.0 - 75.0 % LYMPHOCYTE 18.6 (L) 20.0 - 55.0 % MONOCYTE % 10.3 (H) 0.0 - 10.0 % EOSINOPHIL % 5.2 0.0 - 11.0 % BASOPHIL % 0.7 0.0 - 2.0 % Absolute Neutrophil Count 4.9 1.4 - 6.5 10*3/uL LYMPHOCYTES, ABSOLUTE 1.4 1.2 - 3.4 10*3/uL MONOCYTES, ABSOLUTE 0.8 (H) 0.0 - 0.7 10*3/uL ABSOLUTE EOSINOPHIL COUNT 0.4 0.0 - 0.7 10*3/uL ABSOLUTE BASOPHIL COUNT 0.0 0.0 - 0.2 10*3/uL MAGNESIUM Result Value Ref Range MAGNESIUM 2.3 1.6 - 2.3 MG/DL INFLUENZA A AND B, PCR Result Value Ref Range INFLUENZA A NEGATIVE NEGATIVE INFLUENZA B NEGATIVE NEGATIVE RESPIRATORY SYNCYTIAL VIRUS PCR Result Value Ref Range RSV by PCR NEGATIVE NEGATIVE EKG RESULTS EKG is performed interpreted myself as sinus rhythm, ventricular rate 90 beats per minute, NC interval 134 milliseconds, QRS duration 80 millisecond, QT interval 436 millisecond I ordered, interpreted and acted upon this electrocardiogram during the patients ED visit. Tonny Singh MD Radiographic Imaging XR CHEST PA 1 VIEW Final Result Impression: No acute cardiopulmonary process. Moderate Sedation Procedure: No Procedures: Procedures ED Summary: Patient workup was unremarkable. Patient improved well enough with therapy in the emergency department to be able discharged home. Patient will be discharged home in improved condition with follow up on outpatient basis. Patient has been offered admission for observation but it was cleansed at this time stating he feels much improved rather be discharged. Patient will continue home medications. Will add Levaquin to his regimen due to the cellulitis of his left upper extremity. P.o. steroids have not ordered this patient has had multiple allergies to steroids to cause who to have a racing heart. Patient was on a steroid inhaler so I advised him to continue this. Patient can return for recurrent symptoms, fever, weakness, any other issues that he has. Clinical Impression: 1. Shortness of breath 2. Cellulitis of left upper extremity No follow-ups on file. Discharge Medication List as of 12/07/2023 4:22 AM Discharge Medication List as of 12/07/2023 4:22 AM An After Visit Summary was printed and given to the patient with above information. . . Tonny Singh MD 12/07/23 0526 [facility] 12-07-2023 Emergency department Note Emergency Department Report [facility] EMERGENCY DEPARTMENT Service Date:.12/07/23 PCP: Dez Bhagat Chief Complaint: Chief Complaint Patient presents with Shortness of Breath Pt states Sob worsened since Monday. Pt states no relief with brerathing treatments, hx of COPD, abdominal use, subcostal retractions. Pt states CP on LEFT side of chest, radiates to back. Arm swelling Pt states LEFT arm swelling present at LEFT AC, with raised bump. Redness and warmth present to area, no raised bump. Pt denies fevers. HPI Raul Menon is a 73 y.o. male presents to the ED today due to shortness of breath. Symptoms have been going on for few days but worse over the past couple days. Patient denies fever he has had a cough has been nonproductive no sick contacts no recent travel. Patient denies chest pain. There is no report of bowel or bladder dysfunction. Review of Systems: Review of Systems All other systems reviewed and are negative. Past Medical History: Past Medical History: Diagnosis Date COPD (chronic obstructive pulmonary disease) Past Surgical History: No past surgical history on file. Allergies: Allergies Allergen Reactions Ketorolac Nausea and Vomiting nausea vomiting Ascorbate Hives Large doses per pt Prednisone ALL STEROIDS Other reaction(s): Intolerance Cardiac reaction per pt Medications: Discharge Medication List as of 12/07/2023 4:22 AM CONTINUE these medications which have CHANGED Details levoFLOXacin 500 MG tablet Take 1 tablet by mouth daily for 7 days. Normal Disp-7 tablet, R-0 CONTINUE these medications which have NOT CHANGED Details albuterol (2.5 MG/3ML) 0.083% inhalation solution Take 3 mL by nebulization every 6 hours as needed for Shortness of Breath. Historical Med albuterol 108 (90 Base) MCG/ACT Aero Soln inhaler Inhale 1 puff every 6 hours as needed for Shortness of Breath. Historical Med mometasone Furo-Formoterol Fum 200-5 MCG/puff Aerosol Inhale 2 puffs every 12 hours. Historical Med theophylline 300 MG Tab SR 12 HR TAKE 1 TABLET BY MOUTH TWICE DAILY GIVE ON AN EMPTY STOMACH. DO NOT CRUSH OR CHEW Historical Med Amoxicillin-clavulanate 875-125 MG tablet Take 1 tablet by mouth every 12 hours. Historical Med Cefdinir (OMNICEF) 300 MG capsule Take 2 capsules by mouth daily. Historical Med predniSONE 10 MG tablet TAKE 4 TABLETS BY MOUTH ONCE DAILY IN THE MORNING FOR 3 DAYS THEN 3 ONCE DAILY FOR 3 DAYS THEN 2 ONCE DAILY FOR 3 DAYS THEN 1 ONCE DAILY FOR 3 DAYS THEN 1/2 (ONE-HALF) ONCE DAILY FOR 3 DAYS Historical Med Family History: History reviewed. No pertinent family history. Social History: Social History Socioeconomic History Marital status: Spouse name: Not on file Number of children: Not on file Years of education: Not on file Highest education level: Not on file Occupational History Not on file Tobacco Use Smoking status: Every Day Current packs/day: 0.50 Types: Cigarettes Smokeless tobacco: Never Vaping Use Vaping status: Never Used Substance and Sexual Activity Alcohol [...] Housing Stability: Not on file Physical Exam: Physical Exam Constitutional: Appearance: Normal appearance. HENT: Head: Normocephalic and atraumatic. Right Ear: Tympanic membrane and external ear normal. Left Ear: Tympanic membrane and external ear normal. Nose: Nose normal. Mouth/Throat: Mouth: Mucous membranes are moist. Pharynx: Oropharynx is clear. Eyes: Pupils: Pupils are equal, round, and reactive to light. Cardiovascular: Rate and Rhythm: Normal rate and regular rhythm. Heart sounds: Normal heart sounds. Pulmonary: Effort: Pulmonary effort is normal. Breath sounds: Decreased breath sounds and wheezing present. Abdominal: General: Bowel sounds are normal. There is no distension. Palpations: Abdomen is soft. Tenderness: There is no abdominal tenderness. There is no guarding or rebound. Musculoskeletal: General: Normal range of motion. Cervical back: Normal range of motion and neck supple. Skin: General: Skin is warm and dry. Capillary Refill: Capillary refill takes less than 2 seconds. Findings: No erythema. Neurological: General: No focal deficit present. Mental Status: He is alert and oriented to person, place, and time. Mental status is at baseline. Cranial Nerves: No cranial nerve deficit. Sensory: No sensory deficit. Motor: No weakness. Coordination: Coordination normal. Deep Tendon Reflexes: Reflexes normal. Psychiatric: Mood and Affect: Mood normal. Behavior: Behavior normal. Vital Signs During ED Visit Patient Vitals for the past 24 hrs: BP Temp Temp src Pulse Resp SpO2 Weight 12/07/23 0407 110/72 -- -- 78 18 93 % -- 12/07/23 0306 132/72 -- -- 82 16 96 % -- 12/07/23 0148 119/73 -- -- 88 20 94 % -- 12/07/23 0046 -- -- -- -- -- -- 87.7 kg (193 lb 4.8 oz) 12/07/23 0045 (!) 138/91 98.1 F (36.7 C) Oral 100 (!) 40 94 % -- 12/07/23 0041 -- -- -- -- -- 94 % -- Orders/Results: Orders Placed This Encounter [facility] - NASOPHARYNGEAL XR CHEST PA 1 VIEW Troponin I, High sensitivity COMPREHENSIVE METABOLIC PANEL CBC, EDIF, PLATELET MAGNESIUM INFLUENZA A AND B, PCR ECG Ipratropium-albuterol (DUONEB) 0.5-2.5 (3) MG/3ML nebulizer solution 3 mL methylPREDNISolone sodium succinate (SOLU-MEDROL) injection 125 mg Ipratropium-albuterol (DUONEB) 0.5-2.5 (3) MG/3ML nebulizer solution levoFLOXacin 500 MG tablet RESPIRATORY SYNCYTIAL VIRUS PCR Results for orders placed or performed during the hospital encounter of 12/07/23 [facility] 1 - NASOPHARYNGEAL Specimen: NASOPHARYNGEAL; Fluid/Swab Result Value Ref Range SARS COV 2 RNA, QL REAL TIME RT PCR NOT DETECTED NOT DETECTED NARRATIVE -1 This test was performed using isothermal [place] and has been approved as Emergency Use Authorization (EUA) for the qualitative detection [id number] nucleic acid. TROPONIN I, HIGH SENSITIVITY Result Value Ref Range TROPONIN I, HIGH SENSITIVITY 16 0 - 20 pg/mL COMPREHENSIVE METABOLIC PANEL Result Value Ref Range Glucose 111 (H) 70 - 100 MG/DL BUN 18 7 - 20 MG/DL CREATININE SERUM 1.30 (H) 0.70 - 1.20 MG/DL SODIUM 138 137 - 145 MMOL/L POTASSIUM 4.1 3.5 - 5.1 MMOL/L CHLORIDE 105 98 - 107 MMOL/L CALCIUM 8.6 8.4 - 10.2 MG/DL PROTEIN, TOTAL 6.8 6.3 - 8.2 GM/DL Albumin 4.0 3.5 - 5.0 G/dl BILIRUBIN, TOTAL 0.4 0.2 - 1.3 MG/DL AST 20 17 - 59 IU/L ALKALINE PHOSPHATASE 99 38 - 126 IU/L CARBON DIOXIDE (CO2) 29 22 - 30 MMOL/L A/G Ratio 1.4 RATIO ALT 21 <50 IU/L ESTIMATED GFR, NON AMER 58 ml/min/1.73sq.m ESTIMATED GFR, 70 ml/min/1.73sq.m GFR COMMENT Average GFR for 70+ years old = 75. CBC, EDIF, PLATELET Result Value Ref Range WBC (WHITE BLOOD COUNT) 7.6 3.6 - 11.0 10*3/uL RBC 5.04 4.0 - 6.1 10*6/uL HEMOGLOBIN (HGB) 15.5 14.0 - 18.0 G/DL HEMATOCRIT (HCT) 45.4 42.0 - 52.0 % MEAN CELL VOLUME 90.2 80.0 - 100.0 FL Mean Cell HGB 30.8 26.0 - 35.0 PG MEAN CELL HGB CONCENTRATION 34.2 27.0 - 37.0 G/DL RBC DISTRIBUTION 14.3 11.5 - 14.5 % PLATELET COUNT 377 130 - 400 10*3/uL MEAN PLATELET VOLUME 7.3 (L) 7.4 - 11.0 FL DIFFERENTIAL TYPE AUTO DIFF % NEUTROPHILS 65.2 37.0 - 75.0 % LYMPHOCYTE 18.6 (L) 20.0 - 55.0 % MONOCYTE % 10.3 (H) 0.0 - 10.0 % EOSINOPHIL % 5.2 0.0 - 11.0 % BASOPHIL % 0.7 0.0 - 2.0 % Absolute Neutrophil Count 4.9 1.4 - 6.5 10*3/uL LYMPHOCYTES, ABSOLUTE 1.4 1.2 - 3.4 10*3/uL MONOCYTES, ABSOLUTE 0.8 (H) 0.0 - 0.7 10*3/uL ABSOLUTE EOSINOPHIL COUNT 0.4 0.0 - 0.7 10*3/uL ABSOLUTE BASOPHIL COUNT 0.0 0.0 - 0.2 10*3/uL MAGNESIUM Result Value Ref Range MAGNESIUM 2.3 1.6 - 2.3 MG/DL INFLUENZA A AND B, PCR Result Value Ref Range INFLUENZA A NEGATIVE NEGATIVE INFLUENZA B NEGATIVE NEGATIVE RESPIRATORY SYNCYTIAL VIRUS PCR Result Value Ref Range RSV by PCR NEGATIVE NEGATIVE EKG RESULTS EKG is performed interpreted myself as sinus rhythm, ventricular rate 90 beats per minute, NC interval 134 milliseconds, QRS duration 80 millisecond, QT interval 436 millisecond I ordered, interpreted and acted upon this electrocardiogram during the patients ED visit. Tonny Singh MD Radiographic Imaging XR CHEST PA 1 VIEW Final Result Impression: No acute cardiopulmonary process. Moderate Sedation Procedure: No Procedures: Procedures ED Summary: Patient workup was unremarkable. Patient improved well enough with therapy in the emergency department to be able discharged home. Patient will be discharged home in improved condition with follow up on outpatient basis. Patient has been offered admission for observation but it was cleansed at this time stating he feels much improved rather be discharged. Patient will continue home medications. Will add Levaquin to his regimen due to the cellulitis of his left upper extremity. P.o. steroids have not ordered this patient has had multiple allergies to steroids to cause who to have a racing heart. Patient was on a steroid inhaler so I advised him to continue this. Patient can return for recurrent symptoms, fever, weakness, any other issues that he has. Clinical Impression: 1. Shortness of breath 2. Cellulitis of left upper extremity No follow-ups on file. Discharge Medication List as of 12/07/2023 4:22 AM Discharge Medication List as of 12/07/2023 4:22 AM An After Visit Summary was printed and given to the patient with above information. . . Tonny Singh MD 12/07/23 0526 Respiratory called at this time. documented in this encounter [facility] 12-07-2023 Emergency department Note Respiratory called at this time. [facility] 08-23-2023 Emergency department Note Pt alert, oriented, NAD, pt discharge instructions reviewed, follow up care encouraged, pt wheeled into RM 15 with pt family member, room air. [facility] 08-23-2023 Emergency department Note Pt alert, oriented, NAD, pt discharge instructions reviewed, follow up care encouraged, pt wheeled into RM 15 with pt family member, room air. Patient alerta nd eating on the bed, awaiting dc Took over care of patient at change of shift. Patient had diagnostic working pending. CT PE is negative. Troponin is negative. Patient states he feels better at this time and he will be discharged home to follow up with his primary care provider. He was return if he has any chest pain, shortness breath, or any new symptoms. Diagnosis: Acute exacerbation of COPD. Paul Tovar MD 08/23/231947 Report given to YOLY Pettit Emergency Department Report [facility] EMERGENCY DEPARTMENT Service Date:.08/23/23 PCP: Dez Bhagat Chief Complaint: Chief Complaint Patient presents with Shortness of Breath Cough started last Monday. Now C/O SOB, nausea, tachycardia with activity, and chest tightness. HPI Raul Menon is a 73 y.o. male presents to the ED with chief complaint of congestion and cough and shortness of breath. Patient states the symptoms have been going on for over a week. He states he gets shortness of breath when he walks in his heart rate goes up. He states his cough has been dry and nonproductive. He has been using his treatments at home. He complains of general chest tightness. He denies syncope. He denies fever or chills. He denies sick contacts. He states he gets lung infections often. He states he has been using his breathing treatments increasingly at home. He denies any headache or neck stiffness. He denies any rash or fever Review of Systems: Review of Systems Review of Systems Constitutional: Negative for fevers or chills. Positive for malaise Skin: Negative for rash or bruising. HENT: Negative for earache, nosebleeds, sore throat Eyes: Negative Cardiovascular: Negative for chest pain. Positive for dyspnea on exertion Gastrointestinal: Negative for nausea vomiting or diarrhea Respiratory: Positive for COPD, shortness of breath, cough Genitourinary: Negative for dysuria frequency or urgency Musculoskeletal: Negative for fall trauma or injury Neurological: Negative for headache Past Medical History: Past Medical History: Diagnosis Date COPD (chronic obstructive pulmonary disease) Past Surgical History: No past surgical history on file. Allergies: Allergies Allergen Reactions Ketorolac Nausea and Vomiting nausea vomiting Ascorbate Hives Large doses per pt Prednisone ALL STEROIDS Other reaction(s): Intolerance Cardiac reaction per pt Medications: Patient's Medications New Prescriptions No medications on file Previous Medications ALBUTEROL (2.5 MG/3ML) 0.083% INHALATION SOLUTION Take 3 mL by nebulization every 6 hours as needed for Shortness of Breath. ALBUTEROL 108 (90 BASE) MCG/ACT AERO SOLN INHALER Inhale 1 puff every 6 hours as needed for Shortness of Breath. AMOXICILLIN-CLAVULANATE 875-125 MG TABLET Take 1 tablet by mouth every 12 hours. CEFDINIR (OMNICEF) 300 MG CAPSULE Take 2 capsules by mouth daily. LEVOFLOXACIN 750 MG TABLET Take 1 tablet by mouth daily. MOMETASONE FURO-FORMOTEROL FUM 200-5 MCG/PUFF AEROSOL Inhale 2 puffs every 12 hours. PREDNISONE 10 MG TABLET TAKE 4 TABLETS BY MOUTH ONCE DAILY IN THE MORNING FOR 3 DAYS THEN 3 ONCE DAILY FOR 3 DAYS THEN 2 ONCE DAILY FOR 3 DAYS THEN 1 ONCE DAILY FOR 3 DAYS THEN 1/2 (ONE-HALF) ONCE DAILY FOR 3 DAYS THEOPHYLLINE 300 MG TAB SR 12 HR TAKE 1 TABLET BY MOUTH TWICE DAILY GIVE ON AN EMPTY STOMACH. DO NOT CRUSH OR CHEW Modified Medications No medications on file Discontinued Medications No medications on file Family History: No family history on file. Social History: Social History Socioeconomic History Marital status: Spouse name: Not on file Number of children: Not on file Years of education: Not on file Highest education level: Not on file Occupational History Not on file Tobacco Use Smoking status: Every Day Current packs/day: 0.50 Types: Cigarettes Smokeless tobacco: Never Vaping Use Vaping status: Never Used Substance and Sexual Activity Alcohol [...] Housing Stability: Not on file Physical Exam: Physical Exam General: Well-developed well-nourished nontoxic speaking in clear full sentences HENT: Head is atraumatic. Face is symmetric. Mucous membranes are hydrated. Eyes: Pupils are equal. Sclera is anicteric Skin: Warm, dry. No rash. No petechiae Abdomen: Soft. No guarding or rebound Respiratory: Expiratory wheezing. Diminished breath sounds throughout all lung mahoney. No subcostal retractions. Heart: Heart tones are regular. Capillary refill is brisk Neurologic: Awake, alert, answering questions appropriately. Moving all extremities well Lymphatic: No lymphedema or lymphadenopathy Musculoskeletal: No trauma fracture or deformity. Negative Homans sign Psychiatric: Cooperative. Vital Signs During ED Visit Patient Vitals for the past 24 hrs: BP Temp Temp src Pulse Resp SpO2 Weight 08/23/23 1656 -- -- -- -- -- -- 86.3 kg (190 lb 4.8 oz) 08/23/23 1653 143/87 98.3 F (36.8 C) Oral 76 20 96 % -- Orders/Results: Results for orders placed or performed during the hospital encounter of 08/23/23 [facility] 1 - NASOPHARYNGEAL Specimen: NASOPHARYNGEAL; Fluid/Swab Result Value Ref Range SARS COV 2 RNA, QL REAL TIME RT PCR NOT DETECTED NOT DETECTED NARRATIVE -1 This test was performed using isothermal [place] and has been approved as Emergency Use Authorization (EUA) for the qualitative detection [id number] nucleic acid. CBC, EDIF, PLATELET Result Value Ref Range WBC (WHITE BLOOD COUNT) 4.6 3.6 - 11.0 10*3/uL RBC 5.16 4.0 - 6.1 10*6/uL HEMOGLOBIN (HGB) 15.8 14.0 - 18.0 G/DL HEMATOCRIT (HCT) 46.2 42.0 - 52.0 % MEAN CELL VOLUME 89.4 80.0 - 100.0 FL Mean Cell HGB 30.7 26.0 - 35.0 PG MEAN CELL HGB CONCENTRATION 34.3 27.0 - 37.0 G/DL RBC DISTRIBUTION 14.4 11.5 - 14.5 % PLATELET COUNT 231 130 - 400 10*3/uL MEAN PLATELET VOLUME 7.1 (L) 7.4 - 11.0 FL DIFFERENTIAL TYPE AUTO DIFF % NEUTROPHILS 41.4 37.0 - 75.0 % LYMPHOCYTE 37.8 20.0 - 55.0 % MONOCYTE % 17.1 (H) 0.0 - 10.0 % EOSINOPHIL % 3.0 0.0 - 11.0 % BASOPHIL % 0.7 0.0 - 2.0 % Absolute Neutrophil Count 1.9 1.4 - 6.5 10*3/uL LYMPHOCYTES, ABSOLUTE 1.7 1.2 - 3.4 10*3/uL MONOCYTES, ABSOLUTE 0.8 (H) 0.0 - 0.7 10*3/uL ABSOLUTE EOSINOPHIL COUNT 0.1 0.0 - 0.7 10*3/uL ABSOLUTE BASOPHIL COUNT 0.0 0.0 - 0.2 10*3/uL COMPREHENSIVE METABOLIC PANEL Result Value Ref Range Glucose 100 70 - 100 MG/DL BUN 14 7 - 20 MG/DL CREATININE SERUM 1.10 0.70 - 1.20 MG/DL SODIUM 135 (L) 137 - 145 MMOL/L POTASSIUM 3.8 3.5 - 5.1 MMOL/L CHLORIDE 103 98 - 107 MMOL/L CALCIUM 8.4 8.4 - 10.2 MG/DL PROTEIN, TOTAL 7.1 6.3 - 8.2 GM/DL Albumin 4.1 3.5 - 5.0 G/dl BILIRUBIN, TOTAL 0.5 0.2 - 1.3 MG/DL AST 31 17 - 59 IU/L ALKALINE PHOSPHATASE 95 38 - 126 IU/L CARBON DIOXIDE (CO2) 27 22 - 30 MMOL/L A/G Ratio 1.4 RATIO ALT 24 <50 IU/L ESTIMATED GFR, NON AMER 70 ml/min/1.73sq.m ESTIMATED GFR, 84 ml/min/1.73sq.m GFR COMMENT Average GFR for 70+ years old = 75. TROPONIN I, HIGH SENSITIVITY Result Value Ref Range TROPONIN I, HIGH SENSITIVITY 3 0 - 20 pg/mL INFLUENZA A AND B, PCR Result Value Ref Range INFLUENZA A NEGATIVE NEGATIVE INFLUENZA B NEGATIVE NEGATIVE D-DIMER,QUANTITATIVE Result Value Ref Range D-DIMER 0.52 (HH) <0.50 g/ml RESPIRATORY SYNCYTIAL VIRUS PCR Result Value Ref Range RSV by PCR NEGATIVE NEGATIVE Radiographic Imaging XR CHEST PA 1 VIEW Final Result IMPRESSION: There is no acute cardiopulmonary process. CT PE STUDY (Results Pending) Procedures: Procedures Moderate Sedation Procedure: No ED Summary/MDM EKG interpreted by me shows a sinus rhythm no STEMI rate of 73 beats per minute. NC interval 130 milliseconds. When compared to most recent EKG s dated July 31, 2021 I appreciate no significant changes. Chest x-ray at this time shows no infiltrate no failure or pneumonia. Patient's RSV, flu, COVID are negative.. D-dimer is elevated 0.52. CT PE study was ordered. Patient had breathing treatments. He was placed on Solu-Medrol. At this time his CT PE study is currently pending I have endorsed the case and shift change to the oncoming physician. Please refer to his dictation for final disposition and diagnoses. And results of diagnostic studies Clinical Impression: COPD No follow-ups on file. New Prescriptions No medications on file Discontinued Medications No medications on file An After Visit Summary was printed and given to the patient with above information. . Marisa Overton MD 08/23/23 1810 documented in this encounter [facility] 08-23-2023 Emergency department Note Patient alerta nd eating on the bed, awaiting dc [facility] 08-23-2023 Physician Emergency department Note Took over care of patient at change of shift. Patient had diagnostic working pending. CT PE is negative. Troponin is negative. Patient states he feels better at this time and he will be discharged home to follow up with his primary care provider. He was return if he has any chest pain, shortness breath, or any new symptoms. Diagnosis: Acute exacerbation of COPD. Paul Tovar MD 08/23/231947 [facility] 08-23-2023 Emergency department Note Report given to YOLY Pettit [facility] 08-23-2023 Physician Emergency department Note Emergency Department Report [facility] EMERGENCY DEPARTMENT Service Date:.08/23/23 PCP: Dez Bhagat Chief Complaint: Chief Complaint Patient presents with Shortness of Breath Cough started last Monday. Now C/O SOB, nausea, tachycardia with activity, and chest tightness. HPI Raul Menon is a 73 y.o. male presents to the ED with chief complaint of congestion and cough and shortness of breath. Patient states the symptoms have been going on for over a week. He states he gets shortness of breath when he walks in his heart rate goes up. He states his cough has been dry and nonproductive. He has been using his treatments at home. He complains of general chest tightness. He denies syncope. He denies fever or chills. He denies sick contacts. He states he gets lung infections often. He states he has been using his breathing treatments increasingly at home. He denies any headache or neck stiffness. He denies any rash or fever Review of Systems: Review of Systems Review of Systems Constitutional: Negative for fevers or chills. Positive for malaise Skin: Negative for rash or bruising. HENT: Negative for earache, nosebleeds, sore throat Eyes: Negative Cardiovascular: Negative for chest pain. Positive for dyspnea on exertion Gastrointestinal: Negative for nausea vomiting or diarrhea Respiratory: Positive for COPD, shortness of breath, cough Genitourinary: Negative for dysuria frequency or urgency Musculoskeletal: Negative for fall trauma or injury Neurological: Negative for headache Past Medical History: Past Medical History: Diagnosis Date COPD (chronic obstructive pulmonary disease) Past Surgical History: No past surgical history on file. Allergies: Allergies Allergen Reactions Ketorolac Nausea and Vomiting nausea vomiting Ascorbate Hives Large doses per pt Prednisone ALL STEROIDS Other reaction(s): Intolerance Cardiac reaction per pt Medications: Patient's Medications New Prescriptions No medications on file Previous Medications ALBUTEROL (2.5 MG/3ML) 0.083% INHALATION SOLUTION Take 3 mL by nebulization every 6 hours as needed for Shortness of Breath. ALBUTEROL 108 (90 BASE) MCG/ACT AERO SOLN INHALER Inhale 1 puff every 6 hours as needed for Shortness of Breath. AMOXICILLIN-CLAVULANATE 875-125 MG TABLET Take 1 tablet by mouth every 12 hours. CEFDINIR (OMNICEF) 300 MG CAPSULE Take 2 capsules by mouth daily. LEVOFLOXACIN 750 MG TABLET Take 1 tablet by mouth daily. MOMETASONE FURO-FORMOTEROL FUM 200-5 MCG/PUFF AEROSOL Inhale 2 puffs every 12 hours. PREDNISONE 10 MG TABLET TAKE 4 TABLETS BY MOUTH ONCE DAILY IN THE MORNING FOR 3 DAYS THEN 3 ONCE DAILY FOR 3 DAYS THEN 2 ONCE DAILY FOR 3 DAYS THEN 1 ONCE DAILY FOR 3 DAYS THEN 1/2 (ONE-HALF) ONCE DAILY FOR 3 DAYS THEOPHYLLINE 300 MG TAB SR 12 HR TAKE 1 TABLET BY MOUTH TWICE DAILY GIVE ON AN EMPTY STOMACH. DO NOT CRUSH OR CHEW Modified Medications No medications on file Discontinued Medications No medications on file Family History: No family history on file. Social History: Social History Socioeconomic History Marital status: Spouse name: Not on file Number of children: Not on file Years of education: Not on file Highest education level: Not on file Occupational History Not on file Tobacco Use Smoking status: Every Day Current packs/day: 0.50 Types: Cigarettes Smokeless tobacco: Never Vaping Use Vaping status: Never Used Substance and Sexual Activity Alcohol [...] Housing Stability: Not on file Physical Exam: Physical Exam General: Well-developed well-nourished nontoxic speaking in clear full sentences HENT: Head is atraumatic. Face is symmetric. Mucous membranes are hydrated. Eyes: Pupils are equal. Sclera is anicteric Skin: Warm, dry. No rash. No petechiae Abdomen: Soft. No guarding or rebound Respiratory: Expiratory wheezing. Diminished breath sounds throughout all lung mahoney. No subcostal retractions. Heart: Heart tones are regular. Capillary refill is brisk Neurologic: Awake, alert, answering questions appropriately. Moving all extremities well Lymphatic: No lymphedema or lymphadenopathy Musculoskeletal: No trauma fracture or deformity. Negative Homans sign Psychiatric: Cooperative. Vital Signs During ED Visit Patient Vitals for the past 24 hrs: BP Temp Temp src Pulse Resp SpO2 Weight 08/23/23 1656 -- -- -- -- -- -- 86.3 kg (190 lb 4.8 oz) 08/23/23 1653 143/87 98.3 F (36.8 C) Oral 76 20 96 % -- Orders/Results: Results for orders placed or performed during the hospital encounter of 08/23/23 [facility] 1 - NASOPHARYNGEAL Specimen: NASOPHARYNGEAL; Fluid/Swab Result Value Ref Range SARS COV 2 RNA, QL REAL TIME RT PCR NOT DETECTED NOT DETECTED NARRATIVE -1 This test was performed using isothermal [place] and has been approved as Emergency Use Authorization (EUA) for the qualitative detection [id number] nucleic acid. CBC, EDIF, PLATELET Result Value Ref Range WBC (WHITE BLOOD COUNT) 4.6 3.6 - 11.0 10*3/uL RBC 5.16 4.0 - 6.1 10*6/uL HEMOGLOBIN (HGB) 15.8 14.0 - 18.0 G/DL HEMATOCRIT (HCT) 46.2 42.0 - 52.0 % MEAN CELL VOLUME 89.4 80.0 - 100.0 FL Mean Cell HGB 30.7 26.0 - 35.0 PG MEAN CELL HGB CONCENTRATION 34.3 27.0 - 37.0 G/DL RBC DISTRIBUTION 14.4 11.5 - 14.5 % PLATELET COUNT 231 130 - 400 10*3/uL MEAN PLATELET VOLUME 7.1 (L) 7.4 - 11.0 FL DIFFERENTIAL TYPE AUTO DIFF % NEUTROPHILS 41.4 37.0 - 75.0 % LYMPHOCYTE 37.8 20.0 - 55.0 % MONOCYTE % 17.1 (H) 0.0 - 10.0 % EOSINOPHIL % 3.0 0.0 - 11.0 % BASOPHIL % 0.7 0.0 - 2.0 % Absolute Neutrophil Count 1.9 1.4 - 6.5 10*3/uL LYMPHOCYTES, ABSOLUTE 1.7 1.2 - 3.4 10*3/uL MONOCYTES, ABSOLUTE 0.8 (H) 0.0 - 0.7 10*3/uL ABSOLUTE EOSINOPHIL COUNT 0.1 0.0 - 0.7 10*3/uL ABSOLUTE BASOPHIL COUNT 0.0 0.0 - 0.2 10*3/uL COMPREHENSIVE METABOLIC PANEL Result Value Ref Range Glucose 100 70 - 100 MG/DL BUN 14 7 - 20 MG/DL CREATININE SERUM 1.10 0.70 - 1.20 MG/DL SODIUM 135 (L) 137 - 145 MMOL/L POTASSIUM 3.8 3.5 - 5.1 MMOL/L CHLORIDE 103 98 - 107 MMOL/L CALCIUM 8.4 8.4 - 10.2 MG/DL PROTEIN, TOTAL 7.1 6.3 - 8.2 GM/DL Albumin 4.1 3.5 - 5.0 G/dl BILIRUBIN, TOTAL 0.5 0.2 - 1.3 MG/DL AST 31 17 - 59 IU/L ALKALINE PHOSPHATASE 95 38 - 126 IU/L CARBON DIOXIDE (CO2) 27 22 - 30 MMOL/L A/G Ratio 1.4 RATIO ALT 24 <50 IU/L ESTIMATED GFR, NON AMER 70 ml/min/1.73sq.m ESTIMATED GFR, 84 ml/min/1.73sq.m GFR COMMENT Average GFR for 70+ years old = 75. TROPONIN I, HIGH SENSITIVITY Result Value Ref Range TROPONIN I, HIGH SENSITIVITY 3 0 - 20 pg/mL INFLUENZA A AND B, PCR Result Value Ref Range INFLUENZA A NEGATIVE NEGATIVE INFLUENZA B NEGATIVE NEGATIVE D-DIMER,QUANTITATIVE Result Value Ref Range D-DIMER 0.52 (HH) <0.50 g/ml RESPIRATORY SYNCYTIAL VIRUS PCR Result Value Ref Range RSV by PCR NEGATIVE NEGATIVE Radiographic Imaging XR CHEST PA 1 VIEW Final Result IMPRESSION: There is no acute cardiopulmonary process. CT PE STUDY (Results Pending) Procedures: Procedures Moderate Sedation Procedure: No ED Summary/MDM EKG interpreted by me shows a sinus rhythm no STEMI rate of 73 beats per minute. NC interval 130 milliseconds. When compared to most recent EKG s dated July 31, 2021 I appreciate no significant changes. Chest x-ray at this time shows no infiltrate no failure or pneumonia. Patient's RSV, flu, COVID are negative.. D-dimer is elevated 0.52. CT PE study was ordered. Patient had breathing treatments. He was placed on Solu-Medrol. At this time his CT PE study is currently pending I have endorsed the case and shift change to the oncoming physician. Please refer to his dictation for final disposition and diagnoses. And results of diagnostic studies Clinical Impression: COPD No follow-ups on file. New Prescriptions No medications on file Discontinued Medications No medications on file An After Visit Summary was printed and given to the patient with above information. . Marisa Overton MD 08/23/231809 [employer] Work Phone: 08-02-2021 Miscellaneous Notes Discharge education acknowledged by [...] receiving. Clarified with pharmacy as well as KEVIN BROWN states to give steroid as ordered. Previous assessment unchanged. Pt resting in bed, denies needs at this time. documented in this encounter [facility] 08-02-2021 Hospital Discharg e instructions Huan Hoover PA-C - 08/02/2021 2:41 PM EST AAT Huan Hoover PA-C - 08/02/2021 2:41 PM EST AAT The following attachments cannot be sent through Care Everywhere.Coronavirus Disease (COVID-19): Caring for Yourself: Quick List (Chilean)documented in this encounter [facility] 08-02-2021 Hospital course Narrative Images from the original note were not included. Discharge Summary Summary Time: 08/02/21 2:41 PM Name: Raul Menon Age: 70 y.o. Birthday: 1950 Admit Date: 07/31/2021 11:23 AM Discharge Date: 08/02/2021 Brief Summary of Hospital Course: Patient is a 70 y.o. male presents to [facility] for evaluation of shortness of breath. [...] (08/02 1159) O2 Device: room air (08/02 1159) Discharge Labs: Lab Results Component Value Date [...] tolerated. Discharge Follow-up: Dez Bhagat MD [address] [facility] [id number] In 1 week Stefan Tovar MD [address] [facility] [address] In 1 week Discharge Disposition: Patient will be discharged in stable condition. Discharge Time: Including assessment, planning, and medication reconciliation was greater than 35 min. Huan Hoover PA-C completing Discharge Summary for Dr. Luna Please note portions of this note utilized [employer] dictation software, please excuse any typographical or grammatical errors Associated attestation - Osmin Luna MD - 08/02/2021 4:58 PM EST I have personally seen and examined Raul Menon. I have personally reviewed all available [...] clarification. Osmin Luna, MDdocumented in this encounter [facility] 08-02-2021 History of Presen t [...] with good technique with good eccentric control. ROENTGENOLOGIST provided pt with handout for seated HEP with pt demonstrating a good understanding. Advised pt to continue to walk periodically throughout the day to improve endurance and overall lung function. Pt remained sitting in bedsdie chair with call light left within reach. Transfer Skill: Sit To Stand, Rehab Eval Pine (Sit-Stand Transfers) independent Physical Assist/Nonphysical Assist: Sit/Stand 1 person assist Weight-Bearing Restrictions: Sit/Stand full weight-bearing Assistive Device For Transfer: Sit/Stand (none used) Gait Skills, PT Eval Level of Pine: Gait stand-by assist Physical Assist/Nonphysical Assist: Gait supervision Assistive Device For Transfer: Gait (Pt holding onto IV pole) Gait Distance (Approx 70ft total) Gait Analysis, PT Eval Gait Pattern Used swing-through gait Plan Plan for next visit Cont with LE strengthening ex, endurance, and mobility if pt not discharged Maintain frequency yes ABLE BODIED WATCHMAN spoke with patient to discuss discharge plans. [...] Information Source Information Source patient Contact Information Clinical Dietitian/SW Added to Care Team Yes This Store Planner is Primary Clinical Dietitian/SW Yes Social Work Contact Name Medina Dotson Fourth Officer's Living Environment Lives With spouse;child(rebecca), adult (Son and ) Living Arrangements house Provides Primary Care For no one Primary Care Provided By self Support System Immediate family Able to Return to Prior Arrangements yes Employment/Financial Employed? 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 Previous Level of Function Ambulation Skills independent [...] Supine to Sit, Rehab Eval Level of Pine: Supine/Sit independent Transfer Skill: Sit To Stand, Rehab Eval Pine (Sit-Stand Transfers) independent Gait Skills, PT Eval Level of Pine: Gait independent Physical Assist/Nonphysical Assist: Gait supervision [...] chart. Discharge Recommendations home with spouse at [facility] Clinical Impression Criteria for Skilled Therapeutic Interventions Met (PT Eval) yes, treatment indicated Impairments Found (PT Eval) Aerobic capacity/endurance;Ventilation and respiration/gas exchange Rehab Potential (PT Eval) good Therapy Frequency 5 times a week Today's Treatment Included activity tolerance, endurance training Goals Goal 1 Pt will be ind in LE HEP for activity tolerance Goal 2 Pt will [...] HR with activity Therapist Information License # [id number] Dedra Boles PT 08/01/21 0926 Time In/Out Time In 0926 Time Out 0953 Total Visit Time 27 minutes Total Treatment [...] AROM WFL Manual Muscle Testing (MMT) Hand Pattern Perforating Machine Operator, Right strong Hand Pattern Perforating Machine Operator, Left strong Skin Integrity Skin Integrity Description Bruising Edema Edema none noted Bed Mobility Skill: Supine to Sit, Rehab Eval Level of Pine: Supine/Sit supervision Physical Assist/Nonphysical Assist: Supine/Sit verbal cues;1 person assist Transfer Skill: Sit to Stand, Rehab Eval Level of Pine: Sit/Stand supervision Physical Assist/Nonphysical Assist: Sit/Stand 1 person assist Weight-Bearing Restrictions: Sit/Stand full weight-bearing Transfer Skill: Stand to Sit, Rehab Eval Level of Pine: Stand/Sit supervision Physical Assist/Nonphysical Assist: Stand/Sit verbal [...] UB strengtheing HEP Therapist Information License # [id number] Pt. Will complete all toileting tasks (clothing management, hygiene, trasnfer) with MT Pt. Will complete UB/ LB dressing with MT Pt. Will complete UB/ LB bathing with MT Pt. Will complete G/H tasks standing at sink x10 minutes with good balance at MT OT will create a UB HEP with 100% reverse demonstration noted documented in this encounter [facility] 08-01-2021 History and physical note History and Physical Examination 08/01/21 1:42 PM Chief Complaint: Shortness of Breath History of Present Illness: Patient is a 70 y.o. male presents to [facility] for evaluation of shortness of breath. [...] Please note Portions of this note utilized [employer] dictation software, please excuse any typographical or grammatical errors [facility] Medicine Associated attestation - Osmin Luna MD - 08/01/2021 4:33 PM EST I have personally seen and examined Raul Menon. I have personally reviewed all available [...] clarification. Osmin Luna, MDdocumented in this encounter [facility] 07-31-2021 Emergency department Note Clarissa from [facility] called. Patient is admitted to room number 3755 under OBS. Room is ready. RN. Notified. Called Dr. Luna for Garland BROWN. Ambulated length of bethea and back to room. O2 sat 95% baseline to 91% during ambulation. Tachypneic during ambulation. Emergency Department Report [facility] MED SURG Service Date:.07/31/21 PCP: Dez Bhagat Chief Complaint: Chief Complaint Patient presents with Cough for 4-5 days. pt reports everyone in the family has COVID . Fever Generalized Body Aches Nausea Shortness of Breath HPI Raul Menon is a 70 y.o. male presents to [...] Negative Romberg and negative pronator drift. Musculoskeletal: administrative judge strength 2+ the upper extremities. Dorsiflexion and [...] Use Authorization (EUA) for the qualitative detection [id number] nucleic acid. CBC, EDIF, PLATELET Result Value [...] : 76 AXIS : Normal INTERVALS : NC interval [address] SEGMENT CHANGES : None COMPARISON TO PRIOR : none SUMMARY : No acute ST segment elevation MT on this EKG per Dr. Trevino and [...] the bed coordinator as well as the director e learning. I will arrange hospitalization for this patient. [...] above information. . John Edwards PA-C 07/31/21 9795 documented in this encounter [facility] Evaluation note Diagnosis Multifocal pneumonia- Primary Chronic obstructive pulmonary disease with acute exacerbation Obstructive chronic bronchitis with exacerbation Tobacco abuse Tobacco use disorder Hypoalbuminemia Other disorders of plasma protein metabolism Vitamin D deficiency Unspecified vitamin D deficiency [facility] Diagnosis Pulmonary emphysema, unspecified emphysema type [facility] Diagnosis Abdominal pain, right upper quadrant [facility] Diagnosis Neck mass Swelling, mass, or lump in head and neck [facility] Diagnosis Chronic obstructive pulmonary disease, unspecified COPD type- Primary [facility] Diagnosis Dyspnea, unspecified type documented in this encounter [facility] note* Diagnosis Dyspnea, unspecified type documented in this encounter [facility] note* Diagnosis Shortness of breath- Primary Cellulitis of left upper extremity Cellulitis and abscess of upper arm and forearm documented in this encounter [facility] note* Diagnosis Chest pain, unspecified type- Primary Chronic obstructive pulmonary disease, unspecified COPD type documented in this encounter [facility] note* Diagnosis Syncope and collapse- Primary Dizziness and giddiness documented in this encounter [facility] note* Diagnosis Precordial pain Palpitations Shortness of breath Syncope and collapse PAT (paroxysmal atrial tachycardia) Paroxysmal supraventricular tachycardia Atrial premature contractions Supraventricular premature beats Ventricular premature contractions Other premature beats NSVT (nonsustained ventricular tachycardia) Paroxysmal ventricular tachycardia documented in this encounter [facility] note* Diagnosis Syncope and collapse Dizziness and giddiness documented in this encounter [facility] Discharge instructions* Attachments The following attachments cannot be sent through Care Everywhere. * [facility] and Pain Control ([facility]) (Chilean) [facility] Attachments The following attachments cannot be sent through Care Everywhere. * Pain and Pain Control ([facility]) (Chilean) * Chronic Obstructive Pulmonary Disease (COPD) ([facility]) (Chilean) documented in this [facility] Discharge instructions* Attachments The following attachments cannot be sent through Care Everywhere. * Pain and Pain Control ([facility]) (Chilean) * Cellulitis (Chilean) * SOB (Shortness of Breath) (Chilean) [facility] Consultation (Urgent) - New Request Specialty Diagnoses / Procedures Referred By Sharda schwartz Referred To Contact Cardiovascular Medicine Diagnoses Chest pain, unspecified type Chronic obstructive pulmonary disease, unspecified COPD type Lopez Munson MD [address] [place] [id number] David Yepez DO [address] [place] [id number] Referral ID Status Reason Start Date Expiration Date V isits Requested Visits Authorized [id number] New Request 12/21/2023 01/14/2025 1 1 * Radiology (Emergency) - New Request Specialty Diagnoses / Procedures Referred By Contac t Referred To Contact Procedures Lopez Koch MD [address] [place] [address] Referral ID Status Reason Start Date Expiration Date V isits Requested Visits Authorized [id number] New Request 12/21/2023 01/14/2025 1 1 [facility] Summary Purpose Family History No [...] Inactivated Comments Full Code 07/31/2021 3:14 PM Date Activated Date Inactivated Comments 07/31/2021 3:14 PM Reason for Referral Specialty Diagnoses / Procedures Referred By Contac t Referred To Contact Procedures INPATIENT ADMISSION NOTIFICATION Osmin Luna MD [address] [place] [address] Referral ID Status Reason Start Date Expiration Date V isits Requested Visits Authorized [id number] New Request 07/31/2021 08/25/2022 1 1 Specialty Diagnoses / Procedures Referred By Contac t Referred To Contact Procedures ECG John Edwards PA-C [address] [place] [address] Referral ID Status Reason Start Date Expiration Date V isits Requested Visits Authorized [id number] New Request 07/31/2021 08/25/2022 1 1 Specialty Diagnoses / Procedures Referred By Contac t Referred To Contact Procedures C REACTIVE PROTEIN John Edwards PA-C [address] [place] [address] Referral ID Status Reason Start Date Expiration Date V isits Requested Visits Authorized [id number] New Request 07/31/2021 08/25/2022 1 1 Specialty Diagnoses / Procedures Referred By Contac t Referred To Contact Ultrasound Diagnoses Abdominal pain, right upper quadrant Procedures US ABDOMEN RUQ/LIVER/GB Dez Bhagat MD [address] [id number] [facility] Ultrasound [address] [place] [address] Referral ID Status Reason Start Date Expiration Date Visits Re quested Visits Authorized [id number] Closed 10/19/2021 11/13/2022 1 1 Specialty Diagnoses / Procedures Referred By Contac t Referred To Contact Diagnoses Neck mass Procedures US NECK SOFT TISSUE Dez Bhagat MD [id number] [facility] Referral ID Status Reason Start Date Expiration Date Visits Re quested Visits Authorized [id number] Closed 03/23/2023 04/16/2024 1 1 Specialty Diagnoses / Procedures Referred By Contac t Referred To Contact Diagnoses Neck mass Procedures CT NECK WITH CONTRAST NC CT NECK TISSUE CONTRAST Dez Bhagat MD [address] [place] [address] [facility] Referral ID Status Reason Start Date Expiration Date Visits Re quested Visits Authorized [id number] Closed 04/28/2023 05/22/2024 1 1 Specialty Diagnoses / Procedures Referred By Contac t Referred To Contact Procedures ECG Marisa Overton MD [address] [place] [address] Referral ID Status Reason Start Date Expiration Date V isits Requested Visits Authorized [id number] New Request 08/23/2023 09/16/2024 1 1 Specialty Diagnoses / Procedures Referred By Contac t Referred To Contact Nuclear Medicine Diagnoses Dyspnea, unspecified type Procedures NUC MYOCARD PERF STRESS MIBI PHARM NC CHG MYOCARDIAL SPECT MULTIPLE STUDIES CHG MYOCARDIAL SPECT MULTIPLE STUDIES-T NC CARDIAC STRESS TST,INTERP/REPT ONLY NC CV STRS TST XERS&/OR RX CONT ECG W/O I&R Dez Bhagat MD [address] [place] [address] [facility] Nuclear Medicine [address] [place] [phone] Referral ID Status Reason Start Date Expiration Date Visits Re quested Visits Authorized [id number] Closed 10/24/2023 11/17/2024 1 1 Specialty Diagnoses / Procedures Referred By Contac t Referred To Contact Diagnoses Dyspnea, unspecified type Procedures HOLTER MONITOR - FCI Dez Bhagat MD [address] [id number] Referral ID Status Reason Start Date Expiration Date Visits Re quested Visits Authorized [id number] Closed 10/24/2023 11/17/2024 1 1 Specialty Diagnoses / Procedures Referred By Contac t Referred To Contact Procedures ECG Tonny Singh MD [address] [place] [address] Referral ID Status Reason Start Date Expiration Date V isits Requested Visits Authorized [id number] New Request 12/07/2023 12/31/2024 1 1 Specialty Diagnoses / Procedures Referred By Contac t Referred To Contact Diagnoses Precordial pain Palpitations Shortness of breath Syncope and collapse PAT (paroxysmal atrial tachycardia) Atrial premature contractions Ventricular premature contractions NSVT (nonsustained ventricular tachycardia) Procedures ECHOCARDIOGRAM NC ECHO TTHRC R-T 2D W/WOM-MODE COMPL SPEC&COLR D Kranthi Edgar II, MD [address] [place] [id number] Referral ID Status Reason Start Date Expiration Date Visits Re quested Visits Authorized [id number] Closed 12/27/2023 01/20/2025 1 1 Specialty Diagnoses / Procedures Referred By Contac t Referred To Contact Diagnoses Syncope and collapse Dizziness and giddiness Procedures VASC DUPLEX CAROTID BILATERAL NC DUPLEX SCAN EXTRACRANIAL ART COMPL BI STUDY Kranthi Edgar II, MD [address] [place] [address] Referral ID Status Reason Start Date Expiration Date Visits Re quested Visits Authorized [id number] Closed 12/27/2023 01/20/2025 1 1 Additional Source Comments (unrecognized sect ion and content) No Status Records FoundNo Status Records FoundNo Status Records FoundNo Status Records Found INFORMATION SOURCE (unrecogn ized section and content) DATE CREATED AUTHOR 12/15/2017 [facility] DATE CREATED AUTHOR AUTHOR'S ORGANIZ ATION 12/02/2022 [facility] DATE CREATED AUTHOR AUTHOR'S ORGANIZ ATION 01/25/2024 [facility] DATE CREATED AUTHOR AUTHOR'S ORGANIZ ATION 02/04/2024 [facility] Reason for Visit (unrecogniz ed section and content) Reason Comments Cough for 4-5 days. pt rep orts everyone in the family has COVID . Fever Generalized Body Aches Nausea Shortness of Breath Specialty Diagnoses / Procedures Referred By Contac t Referred To Contact Referral ID Status Reason Start Date Expiration Date Visits Re quested Visits Authorized [id number] 1 1 Specialty Diagnoses / Procedures Referred By Contac t Referred To Contact Ultrasound Diagnoses Abdominal pain, right upper quadrant Procedures US ABDOMEN RUQ/LIVER/GB Dez Bhagat MD [address] [place] [address] [facility] [address] [place] [address] Referral ID Status Reason Start Date Expiration Date Visits Re quested Visits Authorized [id number] Closed 10/19/2021 11/13/2022 1 1 Specialty Diagnoses / Procedures Referred By Contac t Referred To Contact Diagnoses Neck mass Procedures US NECK SOFT TISSUE Dez Bhagat MD [address] [place] [address] [facility] Referral ID Status Reason Start Date Expiration Date Visits Re quested Visits Authorized [id number] Closed 03/23/2023 04/16/2024 1 1 Specialty Diagnoses / Procedures Referred By Contac t Referred To Contact Diagnoses Neck mass Procedures CT NECK WITH CONTRAST NC CT NECK TISSUE CONTRAST Dez Bhagat MD [address] [place] [address] [facility] Referral ID Status Reason Start Date Expiration Date Visits Re quested Visits Authorized [id number] Closed 04/28/2023 05/22/2024 1 1 Reason Comments Shortness of Breath Cough started last W . Now C/O SOB, nausea, tachycardia with activity, and chest tightness. Specialty Diagnoses / Procedures Referred By Contac t Referred To Contact Nuclear Medicine Diagnoses Dyspnea, unspecified type Procedures NUC MYOCARD PERF STRESS MIBI PHARM NC CHG MYOCARDIAL SPECT MULTIPLE STUDIES CHG MYOCARDIAL SPECT MULTIPLE STUDIES-T NC CARDIAC STRESS TST,INTERP/REPT ONLY NC CV STRS TST XERS&/OR RX CONT ECG W/O I&R Dez Bhagat MD [address] [place] [address] [facility] Nuclear Medicine [address] [place] [phone] Referral ID Status Reason Start Date Expiration Date Visits Re quested Visits Authorized [id number] Closed 10/24/2023 11/17/2024 1 1 Specialty Diagnoses / Procedures Referred By Contac t Referred To Contact Diagnoses Dyspnea, unspecified type Procedures HOLTER MONITOR - FCI Dez Bhagat MD [address] [place] [address] Referral ID Status Reason Start Date Expiration Date Visits Re quested Visits Authorized [id number] Closed 10/24/2023 11/17/2024 1 1 Reason Comments Shortness of Breath Pt states Sob worsen ed since Monday. Pt states no relief with brerathing treatments, hx of COPD, abdominal use, subcostal retractions. Pt states CP on LEFT side of chest, radiates to back. Arm swelling Pt states LEFT arm s welling present at LEFT AC, with raised bump. Redness and warmth present to area, no raised bump. Pt denies fevers. Reason Comments Chest Pain Left sided chest carolann n 10/10 while watching tv tonight, reports better now Specialty Diagnoses / Procedures Referred By Contac t Referred To Contact Diagnoses Syncope and collapse Dizziness and giddiness Procedures TILT TABLE TEST Kranthi Edgar II, MD [address] [place] [address] Referral ID Status Reason Start Date Expiration Date Visits Re quested Visits Authorized [id number] Closed 12/27/2023 01/20/2025 1 1 Specialty Diagnoses / Procedures Referred By Contac t Referred To Contact Diagnoses Precordial pain Palpitations Shortness of breath Syncope and collapse PAT (paroxysmal atrial tachycardia) Atrial premature contractions Ventricular premature contractions NSVT (nonsustained ventricular tachycardia) Procedures ECHOCARDIOGRAM NC ECHO TTHRC R-T 2D W/WOM-MODE COMPL SPEC&COLR D Kranthi Edgar II, MD [address] [place] [id number] Referral ID Status Reason Start Date Expiration Date Visits Re quested Visits Authorized [id number] Closed 12/27/2023 01/20/2025 1 1 Specialty Diagnoses / Procedures Referred By Contac t Referred To Contact Diagnoses Syncope and collapse Dizziness and giddiness Procedures VASC DUPLEX CAROTID BILATERAL NC DUPLEX SCAN EXTRACRANIAL ART COMPL BI STUDY Kranthi Edgar II, MD [address] [place] [id number] Referral ID Status Reason Start Date Expiration Date Visits Re quested Visits Authorized [id number] Closed 12/27/2023 01/20/2025 1 1 Scheduled Active and Recently Administ ered Medications (unrecognized section and content) Medication Order 07/31/2021 08/01/2021 08/02/2021 Acetylcysteine (NAC) capsule 1,200 mg 1,200 mg, Oral, EVERY 12 HOURS, First dose on 07/31/21 at 2100, Until Discontinued 2021 (Given - Provider: Fracisco Sosa RN) 0834 (Given - Provider: Martin Rodriguez RN)2051 (Given - Provider: Fracisco Sosa, YOLY) 0858 (Given - Provider: Patricia Schilling, YOLY) benzonatate (TESSALON) capsule 100 mg (COMPLETED) 100 mg, Oral, ONCE, 1 dose, On 08/01/21 at 0945 1000 (Given - Provider: Martin Rodriguez, RN) cholecalciferol (VITAMIN D3) tablet 1,000 Units 1,000 Units, Oral, DAILY, First dose on 08/01/21 at 0900, Until Discontinued 0835 (Given - Provider: Martin Rodriguez RN) 0858 (Given - Provider: Patricia Schilling, RN) enOXAParin (LOVENOX) injection 40 mg 40 mg, Subcutaneous, DAILY, First dose on 08/01/21 at 0900, Until Discontinued, Indications: DVT/PE prophylaxis 08 (Given - Provider: Martin Rodriguez RN) 0858 [...] at 1215 1219 (Given - Provider: Iliana Anderson, YUE) ipratropium-albuterol (DUONEB) 0.5-2.5 (3) MG/3ML nebulizer solution 3 mL (COMPLETED) 3 mL, Nebulization, ONCE, 1 dose, On 07/31/21 at 1215 1216 (Given - Provider: Iliana Anderson RRT) ipratropium-albuterol (DUONEB) 0.5-2.5 (3) MG/3ML nebulizer solution 3 mL (COMPLETED) 3 mL, Nebulization, ONCE, 1 dose, On 07/31/21 at 1215 1208 (Given - Provider: Iliana Anderson RRT) ipratropium-albuterol (DUONEB) 0.5-2.5 (3) MG/3ML nebulizer solution 3 mL (COMPLETED) 3 mL, Nebulization, ONCE, 1 dose, On 08/02/21 at 1015 1112 (Given - Provider: Shaye Davey, FREIGHT TRAFFIC CONSULTANT) levoFLOXacin (LEVAQUIN) 750 mg in dextrose 5% [...] RN) 0726 (Not Given - Provider: Patricia Schilling RN - Reason: Order Parameters not met) methylPREDNISolone sodium succinate (SOLU-MEDROL) injection 80 mg 80 mg, Intravenous, EVERY 8 HOURS, First dose on 08/01/21 at 1400, Until Discontinued 1531 (Given - Provider: Martin Rodriguez RN)2315 (Given - Provider: Fracisco Sosa RN - Comment: forgot tp scan) 0634 (Given - Provider: Fracisco Sosa RN)1320 (Given - Provider: Patricia Schilling RN) ondansetron 4mg/2ml (ZOFRAN) injection 4 mg [...] RN) 0858 (Given - Provider: Patricia Schilling, RN) potassium chloride (K-DUR) tablet ER 40 mEq(Linked [...] 0726 (See Alternative - Provider: Patricia Schilling, YOLY) sodium chloride 0.9% IV solution 500 mL (COMPLETED) 500 mL, Intravenous, ONCE, 1 dose, On 07/31/21 at 1245 1210 ($$New Bag$$ - Provider: Krystina Rickel, RN)1217 (Stopped - Provider: Krystina Herr, RN) sodium chloride 0.9% IV solution 75 mL (COMPLETED) 75 mL, Intravenous, ONCE, 1 dose, On 07/31/21 at 1315, Radiology Procedure 1247 ($$New Bag$$ - Provider: Vivian Rivera)1255 (Stopped - Provider: Krystina Herr, RN) Continuous Medication Order 07/31/2021 08/01/2021 08/02/2021 sodium chloride 0.9% IV solution Intravenous, at 75 mL/hr, CONTINUOUS, Starting on 07/31/21 at 1545, Until 08/02/21 at 1844 1543 ($$New Bag$$ - Provider: Martin Rodriguez RN) 0835 (Stopped - Provider: Martin Rodriguez RN - Comment: per patient) 1450 (Stopped - Provider: Patricia Schilling RN) PRN Medication Order 07/31/2021 08/01/2021 08/02/2021 acetaminophen [...] Until 08/02/21 at 1844, Nausea / Vomiting potassium phosphates [...] patient is UNABLE to tolerate oral medications
Scheduled Medication Order 08/21/2023 08/22/2023 08/23/2023 iohexol (OMNIPAQUE) 350 MG/ML injection 75 mL (COMPLETED) 75 mL, Intravenous, ONCE, 1 dose, On Mon08/23/23 at 1900, Extravasation Risk, Radiology Procedure 1820 (Given - Radiol ogy - Provider: Vanessa Agrawal) Ipratropium-albuterol (DUONEB) 0.5-2.5 (3) MG/3ML nebulizer solution 3 mL (COMPLETED) 3 mL, Nebulization, ONCE, 1 dose, On Mon08/23/23 at 1715 1727 (Given - Provid er: Iliana Anderson RRT) Ipratropium-albuterol (DUONEB) 0.5-2.5 (3) MG/3ML nebulizer solution 3 mL (COMPLETED) 3 mL, Nebulization, ONCE, 1 dose, On Mon08/23/23 at 1745 1729 (Given - Provid er: Iliana Monica, FREIGHT TRAFFIC CONSULTANT) Ipratropium-albuterol (DUONEB) 0.5-2.5 (3) MG/3ML nebulizer solution 3 mL (COMPLETED) 3 mL, Nebulization, ONCE, 1 dose, On Mon08/23/23 at 1715 1724 (Given - Provid er: Iliana Anderson, YUE) methylPREDNISolone sodium succinate (SOLU-MEDROL) injection 125 mg (COMPLETED) 125 mg, Intravenous, ONCE, 1 dose, On Mon08/23/23 at 1715 1744 (Given - Provid er: Clarice Rizo RN) Sodium chloride 0.9% IV solution 75 mL (COMPLETED) 75 mL, Intravenous, ONCE, 1 dose, On Mon08/23/23 at 1900, Radiology Procedure 1820 ($$New Bag$$ - Provider: Vanessa Agrawal)1850 (Stopped - Provider: Clarice Rizo RN) Continuous Medication Order 08/21/2023 08/22/2023 08/23/2023 Sodium chloride 0.9% IV solution Intravenous, at 125 mL/hr, CONTINUOUS, Starting on Mon08/23/23 at 1715, Until Mon08/23/23 at 2237 1744 ($$New Bag$$ - Provider: Clarice Rizo RN)2025 (Stopped - Provider: Dayana Blanco RN) Scheduled Medication Order 12/05/2023 12/06/2023 12/07/2023 Ipratropium-albuterol (DUONEB) 0.5-2.5 (3) MG/3ML nebulizer solution 3 mL 3 mL, Nebulization, ONCE, 1 dose, On Mon12/07/23 at 0045 0045 (Canceled Entry - Provider: System Discharge - Comment: Automatically canceled at discontinue of medication order) methylPREDNISolone sodium succinate (SOLU-MEDROL) injection 125 mg (COMPLETED) 125 mg, Intravenous, ONCE, 1 dose, On Mon12/07/23 at 0115 0058 (Given - Provid er: Yareli Lenz RN) No Frequency Medication Order 12/05/2023 12/06/2023 12/07/2023 Ipratropium-albuterol (DUONEB) 0.5-2.5 (3) MG/3ML nebulizer solution 1 dose, Starting on 12/06/24 at 0053, Until Kya 12/07/23 at 0632, Manfred Ayde: cabinet override 0100 (Canceled Entry - Provider: System Discharge - Comment: Automatically canceled at discontinue of medication order) Scheduled Medication Order 12/19/2023 12/20/2023 12/21/2023 GI cocktail: alum/mag hydrox-simethicone(30ml)+lidocain e 2%(10ml) oral suspension 40 mL (COMPLETED) 40 mL, Oral, ONCE, 1 dose, On Kya 12/21/23 at 0145 0148 (Given - Provid er: Genet Reyes RN) Ipratropium-albuterol (DUONEB) 0.5-2.5 (3) MG/3ML nebulizer solution 3 mL 3 mL, Nebulization, EVERY 15 MINUTES, 3 doses, First dose on Kya 12/21/23 at 0115, Last dose on Kya 12/21/23 at 0145 0208 (Not Given - Pr ovider: Shagufta Mcintyre FREIGHT TRAFFIC CONSULTANT - Reason: Patient/family refused)0211 (Not Given - Provider: Shagufta Mcintyre FREIGHT TRAFFIC CONSULTANT - Reason: Patient/family refused)0212 (Not Given - Provider: Shagufta Mcintyre RRT - Reason: Patient/family refused) methylPREDNISolone sodium succinate (SOLU-MEDROL) injection 80 mg 80 mg, Intravenous, ONCE, 1 dose, On Kya 12/21/23 at 0145 0201 (Not Given - Pr ovider: Genet Reyes RN - Reason: Patient/family refused - Comment: Pt. stated unable to take any steroids d/t immobility issues. Dr. Munson aware.) Ondansetron 4mg/2ml (ZOFRAN) injection 4 mg (COMPLETED) 4 mg, Intravenous, ONCE, 1 dose, On Kya 12/21/23 at 0145 0145 (Given - Provid er: Genet Reyes RN) Pantoprazole (PROTONIX) injection 40 mg (COMPLETED) 40 mg, Intravenous, ONCE, 1 dose, On Kya 12/21/23 at 0145, Dilute each 40 mg vial with 10 mL of NS. All bolus doses, whether 40 mg or 80 mg, should be administered over at least two minutes., Indications: Inpt Stress Ulcer Prophylaxis 0140 (Given - Provid er: Genet Reyes RN) Care Teams (unrecognized sec tion and content) Supervisor Receiving And Processing Relationship Specialty Start Date End Date Dez Bhagat MD [address] [facility] [place] [address] PCP - General Family Medicine 11/20/19 Supervisor Receiving And Processing Relationship Specialty Start Date End Date Dez Bhagat MD [address] [facility] [place] [address] PCP - General Family Medicine 11/20/19 Supervisor Receiving And Processing Relationship Specialty Start Date End Date Dze Bhagat MD [address] [facility] [place] [address] PCP - General Family Medicine 11/20/19 Supervisor Receiving And Processing Relationship Specialty [place] [address] [place] [address] PCP - General Family Medicine 11/20/19 Supervisor Receiving And Processing Relationship Specialty [place] [address] [place] [address] PCP - General Family Medicine 11/20/19 Supervisor Receiving And Processing Relationship Specialty [place] [address] [place] [address] [place] [address] PCP - General Family Medicine 11/20/19 Supervisor Receiving And Processing Relationship Specialty Start Date End Date Dez Bhagat MD [address] [facility] [place] [address] PCP - General Family Medicine 11/20/19 Supervisor Receiving And Processing Relationship Specialty [place] [address] [place] [address] [place] [address] PCP - General Family Medicine 11/20/19 Supervisor Receiving And Processing Relationship Specialty Start Date End Date Dez Bhagat MD [address] [facility] [place] [address] PCP - General Family Medicine 11/20/19 Supervisor Receiving And Processing Relationship Specialty Start Date End Date Dez Bhagat MD [address] [facility] [place] [address] PCP - General Family Medicine 11/20/19 Supervisor Receiving And Processing Relationship Specialty Start Date End Date Dez Bhagat MD [address] [facility] [place] [address] PCP - General Family Medicine 11/20/19 Supervisor Receiving And Processing Relationship Specialty Start Date End Date Dez Bhagat MD [address] [facility] [place] [place] [address] PCP - General Family Medicine 11/20/19 FOR [...] BE BASED ON THE PRIMARY CLINICAL RECORDS. [facility]. provides no warranty or guarantee of the accuracy or completeness of information in this document.
--- NOTE | 2024-03-22 14:46 | ECG_ITS ---
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
--- NOTE | 2024-03-22 14:46 | XR_ITS ---
The [address] [address] Patient Name: RAUL MULLEN MRN: [id number] date: 1950 Sex: M Assigned Patient Location: ER Current Patient Location: ER Accession/Order Number: [id number] Exam Date: 03/22/2024 14:55 Report Date: 03/22/2024 15:14 At the request of: LEONARDO BARAJAS Procedure: XR chest 1V EXAMINATION: XR chest 1V HISTORY: Shortness of breath COMPARISON: XR chest 12/07/2023 FINDINGS: LUNGS: Hyperexpanded lungs. No appreciable infiltrates. VASCULATURE: No increased pulmonary vasculature. PLEURA: No pneumothorax, effusion, or pleural thickening. CARDIAC: No cardiomegaly or cardiac silhouette abnormality. MEDIASTINUM: No visible mass or adenopathy. BONES: No fracture or visible bone lesion. OTHER: Negative. XR/XR chest 1V IMPRESSION: 1. No acute cardiopulmonary process. Stable chest. Electronically authenticated by: CORRINE ROMEO Date: 03/22/2024 15:14
--- NOTE | 2024-03-22 14:47 | ED_ITS ---
HPI - SOB/Dyspnea General Chief Complaint: Shortness of Breath/Dyspnea Stated Complaint: diff breathing Time Seen by Provider: 03/22/24 14:36 Source: patient Mode of arrival: walk-in Limitations: no limitations History of Present Illness HPI Narrative: Patient is a 73-year-old male with a history of COPD who presents to the emergency department for a 2-week history of increasing shortness of breath and chest tightness. Patient denies objective fevers. He denies sharp chest pain, significant sputum production or hemoptysis. He reports intermittent swelling to the extremities. He states he has significant exertional dyspnea. He has not been on any recent antibiotics or steroids. Patient states he uses breathing treatments and inhalers at home. He last used them this morning. He states he called his PCP office because he believes he has a lung infection and was encouraged to come to the emergency department. Related Data Home Medications ?Medication ?Instructions ?Recorded ?Confirmed albuterol sulfate 90 mcg/actuation 2 inh inhalation Q6H PRN shortness 03/05/23 04/19/23 aerosol inhaler of breath or wheezing albuterol sulfate 2.5 mg/3 mL 2.5 mg inhalation Q6H PRN 04/19/23 04/19/23 (0.083 %) solution for nebulization shortness of breath or wheezing famotidine 20 mg tablet 20 mg PO DAILY PRN heart burn 04/19/23 04/19/23 mometasone-formoterol HFA 200 2 inh inhalation BID 04/19/23 04/19/23 mcg-5 mcg/actuation aerosol inhaler (Dulera) Previous Rx's ?Medication ?Instructions ?Recorded amoxicillin 875 mg-potassium 1 tab PO Q12H #20 tabs 04/21/23 clavulanate 125 mg tablet theophylline 300 mg 300 mg PO TID #90 tabs 04/21/23 tablet,extended release,12 hr doxycycline hyclate 100 mg tablet 100 mg PO BID 10 days #20 tabs 07/05/23 methylprednisolone 4 mg tablets in See Rx Instructions .Route 07/05/23 a dose pack (Medrol (Lobo)) .COMPLEX #21 ea Allergies Allergy/AdvReac Type Severity Reaction Status Date / Time prednisone AdvReac Severe Weakness Verified 04/19/23 16:07 vitamin C AdvReac Severe Hives Uncoded 04/19/23 16:07 Review of Systems ROS Constitutional Denies: fever or chills Ears, nose, mouth, and throat Denies: throat pain or nasal congestion Cardiovascular Reports: chest pain, swelling of feet/ankles and shortness of breath with exertion Respiratory Reports: shortness of breath, cough and wheezing; Denies: coughing up blood Gastrointestinal Denies: nausea or vomiting Integumentary/Breast Denies: rash Neurological Denies: numbness in extremities or weakness in extremities Hematologic/Lymphatic Denies: easy bruising or easy bleeding [facility] Medical History (Updated 03/22/24 @ 16:03 by KEVIN Butler) Acute exacerbation of chronic obstructive pulmonary disease ?J44.1 - Chronic obstructive pulmonary disease with (acute) exacerbation (ICD-10) Hiatal hernia ?K44.9 - Diaphragmatic hernia without obstruction or gangrene (ICD-10) Arthritis ?M19.90 - Unspecified osteoarthritis, unspecified site (ICD-10) Tuberculosis ?A15.9 - Respiratory tuberculosis unspecified (ICD-10) Blood clot in vein ?I82.90 - Acute embolism and thrombosis of unspecified vein (ICD-10) Chronic bronchitis ?J42 - Unspecified chronic bronchitis (ICD-10) Emphysema lung ?J43.9 - Emphysema, unspecified (ICD-10) COPD exacerbation ?J44.1 - Chronic obstructive pulmonary disease with (acute) exacerbation (ICD-10) Family History (Updated 03/05/23 @ 20:18 by Chela Yañez RN) Other Family history of CHF (congestive heart failure) Family history of COPD (chronic obstructive pulmonary disease) Family history of diabetes mellitus Family history of myocardial infarction Social History Within the past year, how often did you have a drink containing alcohol: never Score interpretation: A score less than 4 is consistent with normal alcohol consumption. Smoking status: Current every day smoker Non-prescribed substance use: denies use Highest level of school completed/degree received: GED or equivalent Little interest or pleasure in doing things: not at all Feeling down, depressed, or hopeless: not at all Feel stressed/tense/nervous/anxious/difficulty sleeping: not at all Exam Narrative Exam Narrative: Gen.: Awake, alert, in no distress Head: Normocephalic, atraumatic ENT: Moist mucous membranes Respiratory: No respiratory distress, diminished lung sounds with expiratory wheezing globally; tachypnea Cardio: Regular rate and rhythm Gastrointestinal: Abdomen is soft, nondistended and nontender to palpation Extremities: Moves extremities equally, no pedal edema Psych: Normal mood and affect Neuro: No focal neuro deficit Skin: Warm, dry, intact Constitutional Vital Signs, click to edit/add: Last Vital Signs Temp 98.1 F 03/22/24 14:36 Pulse 63 03/22/24 15:42 Resp 28 H 03/22/24 14:36 BP 128/78 03/22/24 14:36 Pulse Ox 97 03/22/24 15:42 O2 Del Method Room Air 03/22/24 15:42 Course Vital Signs Vital signs: Vital Signs Temperature 98.1 F 03/22/24 14:36 Pulse Rate 69 03/22/24 14:36 Respiratory Rate 28 H 03/22/24 14:36 Blood Pressure 128/78 03/22/24 14:36 Pulse Oximetry 98 03/22/24 14:36 Oxygen Delivery Method Room Air 03/22/24 14:36 Temperature 98.1 F 03/22/24 14:36 Pulse Rate 63 03/22/24 15:42 Respiratory Rate 28 H 03/22/24 14:36 Blood Pressure 128/78 03/22/24 14:36 Pulse Oximetry 97 03/22/24 15:42 Oxygen Delivery Method Room Air 03/22/24 15:42 MDM - SOB/Dyspnea MDM Narrative Medical decision making narrative: Patient treated with breathing treatment, Solu-Medrol and magnesium. Respirations are mildly elevated after intervention, however the remainder of the vital signs, EKG and labs are unremarkable. Chest x-ray with no acute cardiopulmonary changes. Patient admitted for COPD exacerbation. SHARED APC VISIT, PHYSICIAN ATTESTATION: [id number] I performed a substantive part of the MDM during the patient?s E/M visit. I personally evaluated and examined the patient. I personally made or approved the documented management plan and acknowledge its risk of complications. Medical Records Attestation: I reviewed the patient's medical records. Lab Data Attestation: I reviewed the patient's lab results. Labs: Lab Results 03/22/24 Range/Units 14:45 WBC 7.3 (4.0-11.0) 10^3/uL RBC 4.91 (4.70-6.10) 10^6/uL Hgb 14.9 (14.0-18.0) g/dL Hct 45.4 (42.0-54.0) % MCV 92.5 (80.0-94.0) fL MCH 30.3 (25.9-34.0) pg MCHC 32.8 (29.9-35.2) g/dL RDW 14.3 (11.0-15.0) % Plt Count 345 (150-450) 10^3/uL MPV 9.0 L (9.5-13.5) fL Neut % (Auto) 57.6 (43.0-75.0) % Lymph % (Auto) 25.2 (20.5-60.0) % Foard % (Auto) 10.8 (1.7-12.0) % Eos % (Auto) 5.0 (0.9-7.0) % Baso % (Auto) 1.0 (0.2-2.0) % Neut # (Auto) 4.2 (1.4-6.5) 10^3/uL Lymph # (Auto) 1.9 (1.2-3.8) 10^3/uL Foard # (Auto) 0.8 (0.3-0.8) 10^3/uL Eos # (Auto) 0.4 (0.0-0.7) 10^3/uL Baso # (Auto) 0.1 (0.0-0.1) 10^3/uL Abs Immat Gran (auto) 0.03 (0.00-0.03) 10^3/uL Imm/Tot Granulo (auto) 0.4 (0.0-0.5) % PT 12.2 H (9.0-11.6) sec INR 1.17 APTT 30.5 (22.3-36.2) sec VBG pH 7.336 (7.330-7.430) VBG pCO2 49.3 (40.0-52.0) mmHg Sodium 138 (136-145) mmol/L Potassium 3.9 (3.5-5.1) mmol/L Chloride 104 (98-107) mmol/L Carbon Dioxide 27.9 (21.0-32.0) mmol/L Anion Gap 10.0 BUN 14.0 (7.0-18.0) mg/dL Creatinine 1.00 (0.70-1.30) mg/dL Est GFR ( Amer) >60 (>=60) Est GFR (Non-Af Amer) >60 (>=60) BUN/Creatinine Ratio 14.0 Glucose 101 (74-106) mg/dL Calcium 8.8 (8.5-10.1) mg/dL Total Bilirubin 0.3 (0.2-1.0) mg/dL AST 12 L (15-37) U/L ALT 20 (16-63) U/L Alkaline Phosphatase 134 H (46-116) U/L Troponin I High Sens 5.5 (4.0-76.1) pg/mL NT-Pro-B Natriuret Pep 62.0 (<=900.0) pg/mL Total Protein 6.9 (6.4-8.2) g/dL Albumin 3.5 (3.4-5.0) g/dL Globulin 3.4 g/dL Albumin/Globulin Ratio 1.0 Imaging Data Chest x-ray: Attestation: I have reviewed the pertinent imaging results. Radiologist's impression: ITS Impressions Chest X-Ray 03/22/24 14:46 IMPRESSION: 1. No acute cardiopulmonary process. Stable chest. Electronically authenticated by: CORRINE ROMEO Date: 03/22/2024 15:14 ECG Data Attestation: I personally reviewed and interpreted this ECG as follows: (Normal sinus rhythm at a rate of 72, artifact noted with no obvious acute ST elevation or ectopy. EKG reviewed by attending physician) Discharge Plan Discharge Chief Complaint: Shortness of Breath/Dyspnea Patient Disposition: Admitted as Observation Time of Disposition Decision: 16:03 Prescriptions / Home Meds: No Action famotidine 20 mg tablet 20 mg PO DAILY PRN (Reason: heart burn) albuterol sulfate 2.5 mg /3 mL (0.083 %) solution for nebulization 2.5 mg inhalation Q6H PRN (Reason: shortness of breath or wheezing) Dulera 200-5 mcg/actuation HFA aerosol inhaler 2 inh inhalation BID amoxicillin-pot clavulanate 875-125 mg tablet 1 tab PO Q12H Qty: 20 0RF theophylline 300 mg tablet extended release 12 hr 300 mg PO TID Qty: 90 11RF albuterol sulfate 90 mcg/actuation HFA aerosol inhaler 2 inh INHALATION Q6H PRN (Reason: shortness of breath or wheezing) methylprednisolone [Medrol (Lobo)] 4 mg tablets,dose pack See Rx Instructions .ROUTE .COMPLEX Qty: 21 0RF Rx Instructions: Taper as directed doxycycline hyclate 100 mg tablet 100 mg PO BID 10 Days Qty: 20 0RF Print Language: Tuvaluan Referrals: John Bhagat MD [Primary Care Provider] - 1 week
[2024-03-22 15:05] LABS: PCO2 VBG 49.3 mmHg (40.0-52.0); pH VBG 7.336 (7.330-7.430)
[2024-03-22 15:07] LABS: Basophils Absolute Auto 0.1 10^3/uL (0.0-0.1); Eosinophils Absolute Auto 0.4 10^3/uL (0.0-0.7); Hematocrit 45.4 % (42.0-54.0); Hemoglobin 14.9 g/dL (14.0-18.0); Immature Granulocytes Abs Auto 0.03 10^3/uL (0.00-0.03); Immature Granulocytes Pct Auto 0.4 % (0.0-0.5); Lymphocytes Absolute Auto 1.9 10^3/uL (1.2-3.8); Lymphocytes Percent Auto 25.2 % (20.5-60.0); Mean Corpuscular HGB Conc 32.8 g/dL (29.9-35.2); Mean Corpuscular Hemoglobin 30.3 pg (25.9-34.0); Mean Corpuscular Volume 92.5 fL (80.0-94.0); Monocytes Absolute Auto 0.8 10^3/uL (0.3-0.8); Monocytes Percent Auto 10.8 % (1.7-12.0); Neutrophils Absolute Auto 4.2 10^3/uL (1.4-6.5); Neutrophils Percent Auto 57.6 % (43.0-75.0); Platelet Count 345 10^3/uL (150-450); Red Blood Count 4.91 10^6/uL (4.70-6.10); Red Cell Distribution Width 14.3 % (11.0-15.0); White Blood Count 7.3 10^3/uL (4.0-11.0)
[2024-03-22 15:22] LABS: INR 1.17; Partial Thromboplastin Time 30.5 sec (22.3-36.2); Prothrombin Time 12.2 sec (9.0-11.6)
[2024-03-22] MEDS: MAGNESIUM SULFATE IN WATER 2 GM/50 ML PREMIX IV (15:22)
[2024-03-22] MEDS: METHYLPREDNISOLONE SOD SUCC PF 125 MG/2 ML VIAL IVP (15:22)
[2024-03-22 15:33] LABS: Alanine Aminotransferase 20 U/L (16-63); Albumin Level 3.5 g/dL (3.4-5.0); Alkaline Phosphatase 134 U/L (46-116); Aspartate Amino Transferase 12 U/L (15-37); Bilirubin Total 0.3 mg/dL (0.2-1.0); Calcium 8.8 mg/dL (8.5-10.1); Carbon Dioxide 27.9 mmol/L (21.0-32.0); Chloride 104 mmol/L (98-107); Estimated GFR (African America >60 (>=60); Estimated GFR (Non-African Ame >60 (>=60); Globulin 3.4 g/dL; Glucose 101 mg/dL (74-106); Potassium 3.9 mmol/L (3.5-5.1); Sodium 138 mmol/L (136-145); Total Protein 6.9 g/dL (6.4-8.2); Troponin I High Sensitivity 5.5 pg/mL (4.0-76.1)
[2024-03-22] MEDS: IPRATROPIUM/ALBUTEROL SULFATE 3 ML AMPUL.NEB IH ×2 (15:41→22:30)
--- OUTSIDE RECORDS SUMMARY | 2024-03-22 16:51 | XMS_ITS | CCD ---
Author Organization [facility] Providers Care Angiography Nurse Name Role Phone PHYSICIAN, DEFAULT Unavailable Unavailable PHYSICIAN, DEFAULT Unavailable Unavailable DEZ BHAGAT Unavailable Unavailable Dez Bhagat MD Primary Care Provider [phone] MICHAEL ., DR GARCES Attending Unavailable HOY [...] Unavailable Dez Bhagat MD Primary Care Provider [phone] TALA II, KRANTHI B Attending Unavailable HOY, [...] Primary Care Unavailable TONNY SINGH Attending Unavailable LOPEZ MUNSON Attending Unavailable HOY, DEZ M Primary [...] (13 sources) Ascorbic Acid Drug Allergy 8 [facility] (3 sources) predniSONE Drug Allergy 2 [facility] (1 source) Ascorbic Acid Drug Allergy 3 [facility] (1 source) predniSONE Drug Allergy 6 [facility] (10 sources) Ketorolac Propensity to adverse reactions to drug 4 Nausea and Vomiting [facility] (10 sources) Prednisone Propensity to adverse reactions to drug 8 [facility] Medications Current Medications Medication Drug Class(es) Dates [...] 07-21-2022 Episodic Other aftercare (1 source) Other correction (current) drug therapy; 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 Time 268.66 (160-240 [...] Doppler, and color-flow Echocardiogram Imaging system used: Scripped 2D Dimensions IVSd 1.1 cm M: 0.6-1.0LVEF (Visual)60.91 % PWd 1.1 cm M: 0.6 - 1.0LVEF (Deshpande's)61.25 % M: 52 - 72 LVDd 4.2 cm M: 4.2 - 5.8EF AP4-a2DQ64.72 % LVDs 2.85 cm M: 2.5 - 4.0EF AP2-a2DQ59.89 % Aortic Root 3.24 cm M: 3.1 - 3.7EF BP-a2DQ61.25 % Aortic Root Index1.5 cm/[id number] mL Ascending Aorta 2.89 cm M: 2.6 - 3.1KLNXU67.87 mL M: 62 - 150 Ascending Aorta Index: 1.4 cm/m2LV Volume Index42.80 mL/m2 M: 34 - 74 Left Atrium 3.04 cm M: 3.0 - 4.0LA Qljbmj61.3 mL LVOT1.97 cm (M/F) 1.5-2.5LA Volume Index11.57 [...] Ratio0.71MV PHT79.63 ms MVA PHT2.76 cm2MV Dec [place] 197.45 cm/s2 MV Decel. Fefr280.66 (160-240 ms) [facility] Radiology Study observation (narrative) [facility] CBCon 12-21-2023 ABSOLUTE BAS 0.1 10*3/uL Normal 0.0-0.2 [facility] Comment on above: Performed By: #### C HEM7FSTEFAN #### Testing performed at [address] [address] ABSOLUTE EOS 0.4 10*3/uL Normal 0.0-0.7 [facility] Comment on above: Performed By: #### C HEM7FSTEFAN #### Testing performed at [address] [address] ABSOLUTE NEUTROPHIL COUNT 5.4 10*3/uL Normal 1.4-6.5 [facility] Comment on above: Performed By: #### C HEM7FSTEFAN #### Testing performed at [address] [address] Basophils/100 WBC (Bld) 1.3 % Normal 0.0-2.0 [facility] Comment on above: Performed By: #### C HEM7FSTEFAN #### Testing performed at [address] [address] DTYPE AUTO DIFF Normal [facility] Comment on above: Performed By: #### C HEM7F ACBC #### Testing performed at [address] [address] Eosinophils/100 WBC (Bld) 4.0 % Normal 0.0-11.0 [facility] Comment on above: Performed By: #### C HEM7F ACBC #### Testing performed at [address] [address] Erythrocyte distribution width (RBC) [Ratio] 15.4 % High 11.5-14.5 [facility] Comment on above: Performed By: #### C HEM7F ACBC #### Testing performed at [address] [address] Hematocrit (Bld) [Volume fraction] 44.7 % Normal 42.0-52.0 [facility] Comment on above: Performed By: #### C HEM7F ACBC #### Testing performed at [address] [address] Hemoglobin (Bld) [Mass/Vol] 15.0 g/dL Normal 14.0-18.0 [facility] Comment on above: Performed By: #### C HEM7F ACBC #### Testing performed at [address] [address] Lymphocytes (Bld) [#/Vol] 2.2 10*3/uL Normal 1.2-3.4 [facility] Comment on above: Performed By: #### C HEM7F ACBC #### Testing performed at [address] [address] Lymphocytes/100 WBC (Bld) 25.1 % Normal 20.0-55.0 [facility] Comment on above: Performed By: #### C HEM7F ACBC #### Testing performed at [address] [address] MCH (RBC) [Entitic mass] 30.4 pg Normal 26.0-35.0 [facility] Comment on above: Performed By: #### C HEM7F ACBC #### Testing performed at [address] [place] [address] MCHC (RBC) [Mass/Vol] 33.6 g/dL Normal 27.0-37.0 [facility] Comment on above: Performed By: #### C HEM7F ACBC #### Testing performed at [address] [address] MCV (RBC) [Entitic vol] 90.6 fL Normal 80.0-100.0 [facility] Comment on above: Performed By: #### C HEM7F, ACBC #### Testing performed at [address] [address] Monocytes (Bld) [#/Vol] 0.9 10*3/uL High 0.0-0.7 [facility] Comment on above: Performed By: #### C HEM7F, ACBC #### Testing performed at [address] [address] Monocytes/100 WBC (Bld) 9.5 % Normal 0.0-10.0 [facility] Comment on above: Performed By: #### C HEM7F ACBC #### Testing performed at [address] [address] Neutrophils/100 WBC (Bld) 60.1 % Normal 37.0-75.0 [facility] Comment on above: Performed By: #### C HEM7F, ACBC #### Testing performed at [address] [address] Platelet mean volume (Bld) [Entitic vol] 6.9 fL Low 7.4-11.0 [facility] Comment on above: Performed By: #### C HEM7F, ACBC #### Testing performed at [address] [address] Platelets (Bld) [#/Vol] 434 10*3/uL High 130-400 [facility] Comment on above: Performed By: #### C HEM7F, ACBC #### Testing performed at [address] [place] [address] RBC (Bld) [#/Vol] 4.93 10*6/uL Normal 4.0-6.1 [facility] Comment on above: Performed By: #### C HEM7F, ACBC #### Testing performed at [facility] [address] [place] [address] WBC (Bld) [#/Vol] 8.9 10*3/uL Normal 3.6-11.0 [facility] Comment on above: Performed By: #### C HEM7F, ACBC #### Testing performed at [id number] [place] [address] CBC, EDIF, PLATELETon 2023 ABSOLUTE BASOPHIL COUNT 0.1 10*3/uL 0.0 - 0.2 10*3/uL [facility] Basophils/100 WBC (Bld) 1.3 % 0.0 - 2.0 % [facility] Differential cell count method Nom (Bld) AUTO DIFF % [facility] Eosinophils (Bld) [#/Vol] 0.4 10*3/uL 0.0 - 0.7 10*3/uL [facility] Eosinophils/100 WBC (Bld) 4.0 % 0.0 - 11.0 % [facility] Erythrocyte distribution width (RBC) [Ratio] 15.4 % High 11.5 - 14.5 % [facility] Hematocrit (Bld) [Volume fraction] 44.7 % 42.0 - 52.0 % [facility] Hemoglobin (Bld) [Mass/Vol] 15.0 g/dL [facility] Interpretation and review of laboratory results Abnormal [facility] Lymphocytes (Bld) [#/Vol] 2.2 10*3/uL 1.2 - 3.4 10*3/uL [facility] Lymphocytes/100 WBC (Bld) 25.1 % 20.0 - 55.0 % [facility] MCH (RBC) [Entitic mass] 30.4 pg 26.0 - 35.0 PG [facility] MCHC (RBC) [Mass/Vol] 33.6 g/dL [facility] MCV (RBC) [Entitic vol] 90.6 fL [facility] Monocytes (Bld) [#/Vol] 0.9 10*3/uL High 0.0 - 0.7 10*3/uL [facility] Monocytes/100 WBC (Bld) 9.5 % 0.0 - 10.0 % [facility] Neutrophils (Bld) [#/Vol] 5.4 10*3/uL 1.4 - 6.5 10*3/uL [facility] Neutrophils/100 WBC (Bld) 60.1 % 37.0 - 75.0 % [facility] Platelet mean volume (Bld) [Entitic vol] 6.9 fL Low [facility] Platelets (Bld) [#/Vol] 434 10*3/uL High 130 - 400 10*3/uL [facility] RBC (Bld) [#/Vol] 4.93 10*6/uL 4.0 - 6.1 10*6/uL [facility] WBC (Bld) [#/Vol] 8.9 10*3/uL 3.6 - 11.0 10*3/uL [facility] CHEM 7 FASTINGon 12-21-2023 Chloride [Moles/Vol] 108 mmol/L High 98-107 [facility] Comment on above: Result Comment: Paris domínguez note: Triglyceride levels of 600mg/dL or higher may positively bias chloride results by approximately 2.1 mmol Performed By: #### C HEM7F, ACBC #### Testing performed at [address] [address] CO2 [Moles/Vol] 26 mmol/L Normal 22-30 [facility] Comment on above: Performed By: #### C HEM7F, ACBC #### Testing performed at [address] [address] Creatinine [Mass/Vol] 1.10 mg/dL Normal 0.70-1.20 [facility] Comment on above: Performed By: #### C HEM7F, ACBC #### Testing performed at [address] [place] [address] EST. GFR, 84 ml/min/1.73sq.m [facility] Comment on above: Performed By: #### C HEM7F, ACBC #### Testing performed at [address] [place] [address] EST. GFR,Non 70 ml/min/1.73sq.m [facility] Comment on above: Performed By: #### C HEM7F, ACBC #### Testing performed at [address] [address] GFR Information Average GFR for 70+ years old = 75. Normal [facility] Comment on above: Result Comment: People Manager isaiah Kidney disease, GFR = <60. Kidney failure, GFR = <15. The GFR estimate is not adjusted for extreme body surface area or acute process, nor has it been validated for women or ethnic groups other than and . Performed By: #### C HEM7F, ACBC #### Testing performed at [address] [address] Glucose [Mass/Vol] 90 mg/dL Normal 70-100 [facility] Comment on above: Result Comment: NORMAL <100 mg/dL PREDIABETES 101-126 mg/dL DIABETES 126 mg/dL or higher Performed By: #### C HEM7F, ACBC #### Testing performed at [address] [address] Potassium [Moles/Vol] 4.2 mmol/L Normal 3.5-5.1 [facility] Comment on above: Performed By: #### C HEM7F, ACBC #### Testing performed at [address] [address] Sodium [Moles/Vol] 139 mmol/L Normal 137-145 [facility] Comment on above: Performed By: #### C HEM7F, ACBC #### Testing performed at [address] [address] Urea nitrogen [Mass/Vol] 15 mg/dL Normal 7-20 [facility] Comment on above: Performed By: #### C HEM7F, ACBC #### Testing performed at [address] [address] CHEM 7 (LYTES,BUN,CREA,GLUC) on 12-21-2023 Chloride [Moles/Vol] 108 mmol/L [facility] Comment on above: Please note: Triglyc eride levels of 600mg/dL or higher may positively bias chloride results by approximately 2.1 mmol CO2 [Moles/Vol] 26 mmol/L [facility] Creatinine [Mass/Vol] 1.10 mg/dL [facility] GFR COMMENT Average GFR for 70+ years old = 75. [facility] Comment on above: Chronic Kidney disea se, GFR = <60. Kidney failure, GFR = <15. The GFR estimate is not adjusted for extreme body surface area or acute process, nor has it been validated for women or ethnic groups other than and . GFR/1.73 sq M.predicted among blacks MDRD (S/P/Bld) [Vol rate/Area] 84 mL/min/{1.73_m2} ml/min/1.73sq .m [facility] GFR/1.73 sq M.predicted among non-blacks MDRD (S/P/Bld) [Vol rate/Area] 70 mL/min/{1.73_m2} ml/min/1.73sq .m [facility] Glucose post fast [Mass/Vol] 90 mg/dL [facility] Comment on above: NORMAL <100 mg/dL PREDIABETES 101-126 mg/dL DIABETES 126 mg/dL or higher Interpretation and review of laboratory results Abnormal [facility] Potassium [Moles/Vol] 4.2 mmol/L [facility] Sodium [Moles/Vol] 139 mmol/L [facility] Urea nitrogen [Mass/Vol] 15 mg/dL [facility] TROPONIN I, HIGH SENSITIVITY on 12-21-2023 TROPONIN I, HIGH SENSITIVITY 5 pg/mL 0 - 20 pg/mL [facility] Comment on above: Indeterminant: >12 to 100 pg/mL female >20 to 100 pg/mL male Indicative of myocardial injury. Serial sampling is recommended, a change of greater than or equal to 20 pg/mL is indicative of acute coronary syndrome. [facility] TROPONIN I, HIGH SENSITIVITY 5 pg/mL Normal 0-20 [facility] Comment on above: Result Comment: Indeterminant: >12 to 100 pg/mL female >20 to 100 pg/mL male Indicative of myocardial injury. Serial sampling is recommended, a change of greater than or equal to 20 pg/mL is indicative of acute coronary syndrome. Performed By: #### R FLUAB #### Testing performed at [address] [id number] [place] [id number] CBCon 12-07-2023 ABSOLUTE BAS 0.0 10*3/uL Normal 0.0-0.2 [facility] Comment on above: Performed By: #### A CBC, CMPF, MG #### Testing performed at [address] [address] ABSOLUTE EOS 0.4 10*3/uL Normal 0.0-0.7 [facility] Comment on above: Performed By: #### A CBC, CMPF, MG #### Testing performed at [address] [address] ABSOLUTE NEUTROPHIL COUNT 4.9 10*3/uL Normal 1.4-6.5 [facility] Comment on above: Performed By: #### A CBC, CMPF, MG #### Testing performed at [address] [address] Basophils/100 WBC (Bld) 0.7 % Normal 0.0-2.0 [facility] Comment on above: Performed By: #### A CBC, CMPF, MG #### Testing performed at [address] [address] DTYPE AUTO DIFF Normal [facility] Comment on above: Performed By: #### A CBC, CMPF, MG #### Testing performed at [address] [address] Eosinophils/100 WBC (Bld) 5.2 % Normal 0.0-11.0 [facility] Comment on above: Performed By: #### A CBC, CMPF, MG #### Testing performed at [address] [address] Lymphocytes (Bld) [#/Vol] 1.4 10*3/uL Normal 1.2-3.4 [facility] Comment on above: Performed By: #### A CBC, CMPF, MG #### Testing performed at [address] [address] Lymphocytes/100 WBC (Bld) 18.6 % Low 20.0-55.0 [facility] Comment on above: Performed By: #### A CBC, CMPF, MG #### Testing performed at [address] [address] Monocytes (Bld) [#/Vol] 0.8 10*3/uL High 0.0-0.7 [facility] Comment on above: Performed By: #### A CBC, CMPF, MG #### Testing performed at [address] [address] Monocytes/100 WBC (Bld) 10.3 % High 0.0-10.0 [facility] Comment on above: Performed By: #### A CBC, CMPF, MG #### Testing performed at [address] [address] Neutrophils/100 WBC (Bld) 65.2 % Normal 37.0-75.0 [facility] Comment on above: Performed By: #### A CBC, CMPF, MG #### Testing performed at [address] [address] Erythrocyte distribution width (RBC) [Ratio] 14.3 % Normal 11.5-14.5 [facility] Comment on above: Performed By: #### A CBC, CMPF, MG #### Testing performed at [address] [address] Hematocrit (Bld) [Volume fraction] 45.4 % Normal 42.0-52.0 [facility] Comment on above: Performed By: #### A CBC, CMPF, MG #### Testing performed at [address] [address] Hemoglobin (Bld) [Mass/Vol] 15.5 g/dL Normal 14.0-18.0 [facility] Comment on above: Performed By: #### A CBC, CMPF, MG #### Testing performed at [address] [address] MCH (RBC) [Entitic mass] 30.8 pg Normal 26.0-35.0 [facility] Comment on above: Performed By: #### A CBC, CMPF, MG #### Testing performed at [address] [address] MCHC (RBC) [Mass/Vol] 34.2 g/dL Normal 27.0-37.0 [facility] Comment on above: Performed By: #### A CBC, CMPF, MG #### Testing performed at [address] [address] MCV (RBC) [Entitic vol] 90.2 fL Normal 80.0-100.0 [facility] Comment on above: Performed By: #### A CBC, CMPF, MG #### Testing performed at [address] [address] Platelet mean volume (Bld) [Entitic vol] 7.3 fL Low 7.4-11.0 [facility] Comment on above: Performed By: #### A CBC, CMPF, MG #### Testing performed at [address] [address] Platelets (Bld) [#/Vol] 377 10*3/uL Normal 130-400 [facility] Comment on above: Performed By: #### A CBC, CMPF, MG #### Testing performed at [address] [address] RBC (Bld) [#/Vol] 5.04 10*6/uL Normal 4.0-6.1 [facility] Comment on above: Performed By: #### A CBC, CMPF, MG #### Testing performed at [address] [address] WBC (Bld) [#/Vol] 7.6 10*3/uL Normal 3.6-11.0 [facility] Comment on above: Performed By: #### A CBC, CMPF, MG #### Testing performed at [address] [address] CBC, EDIF, PLATELETon 2023 ABSOLUTE BASOPHIL COUNT 0.0 10*3/uL 0.0 - 0.2 10*3/uL [facility] Basophils/100 WBC (Bld) 0.7 % 0.0 - 2.0 % [facility] Differential cell count method Nom (Bld) AUTO DIFF % [facility] Eosinophils (Bld) [#/Vol] 0.4 10*3/uL 0.0 - 0.7 10*3/uL [facility] Eosinophils/100 WBC (Bld) 5.2 % 0.0 - 11.0 % [facility] Erythrocyte distribution width (RBC) [Ratio] 14.3 % 11.5 - 14.5 % [facility] Hematocrit (Bld) [Volume fraction] 45.4 % 42.0 - 52.0 % [facility] Hemoglobin (Bld) [Mass/Vol] 15.5 g/dL [facility] Interpretation and review of laboratory results Abnormal [facility] Lymphocytes (Bld) [#/Vol] 1.4 10*3/uL 1.2 - 3.4 10*3/uL [facility] Lymphocytes/100 WBC (Bld) 18.6 % Low 20.0 - 55.0 % [facility] MCH (RBC) [Entitic mass] 30.8 pg 26.0 - 35.0 PG [facility] MCHC (RBC) [Mass/Vol] 34.2 g/dL [facility] MCV (RBC) [Entitic vol] 90.2 fL [facility] Monocytes (Bld) [#/Vol] 0.8 10*3/uL High 0.0 - 0.7 10*3/uL [facility] Monocytes/100 WBC (Bld) 10.3 % High 0.0 - 10.0 % [facility] Neutrophils (Bld) [#/Vol] 4.9 10*3/uL 1.4 - 6.5 10*3/uL [facility] Neutrophils/100 WBC (Bld) 65.2 % 37.0 - 75.0 % [facility] Platelet mean volume (Bld) [Entitic vol] 7.3 fL Low [facility] Platelets (Bld) [#/Vol] 377 10*3/uL 130 - 400 10*3/uL [facility] RBC (Bld) [#/Vol] 5.04 10*6/uL 4.0 - 6.1 10*6/uL [facility] WBC (Bld) [#/Vol] 7.6 10*3/uL 3.6 - 11.0 10*3/uL [facility] CMP FASTINGon 12-07-2023 A:G RATIO 1.4 RATIO Normal [facility] Comment on above: Performed By: #### A CBC, CMPF, MG #### Testing performed at [facility] [address] [place] [address] ALBUMIN 4.0 G/dl Normal 3.5-5.0 [facility] Comment on above: Performed By: #### A CBC, CMPF, MG #### Testing performed at [address] [address] ALP [Catalytic activity/Vol] 99 U/L Normal 38-126 [facility] Comment on above: Performed By: #### A CBC, CMPF, MG #### Testing performed at [address] [address] ALT [Catalytic activity/Vol] 21 U/L Normal <50 [facility] Comment on above: Performed By: #### A CBC, CMPF, MG #### Testing performed at [address] [address] AST [Catalytic activity/Vol] 20 U/L Normal 17-59 [facility] Comment on above: Performed By: #### A CBC, CMPF, MG #### Testing performed at [address] [address] Bilirubin [Mass/Vol] 0.4 mg/dL Normal 0.2-1.3 [facility] Comment on above: Performed By: #### A CBC, CMPF, MG #### Testing performed at [address] [address] Calcium [Mass/Vol] 8.6 mg/dL Normal 8.4-10.2 [facility] Comment on above: Performed By: #### A CBC, CMPF, MG #### Testing performed at [address] [address] Chloride [Moles/Vol] 105 mmol/L Normal 98-107 [facility] Comment on above: Result Comment: Pleeleanor domínguez note: Triglyceride levels of 600mg/dL or higher may positively bias chloride results by approximately 2.1 mmol Performed By: #### A CBC, CMPF, MG #### Testing performed at [address] [address] CO2 [Moles/Vol] 29 mmol/L Normal 22-30 [facility] Comment on above: Performed By: #### A CBC, CMPF, MG #### Testing performed at [address] [place] [address] Creatinine [Mass/Vol] 1.30 mg/dL High 0.70-1.20 [facility] Comment on above: Performed By: #### A CBC, CMPF, MG #### Testing performed at [address] [address] EST. GFR, 70 ml/min/1.73sq.m [facility] Comment on above: Performed By: #### A CBC, CMPF, MG #### Testing performed at [address] [address] EST. GFR,Non 58 ml/min/1.73sq.m [facility] Comment on above: Performed By: #### A CBC, CMPF, MG #### Testing performed at [address] [address] GFR Information Average GFR for 70+ years old = 75. [facility] Comment on above: Result Comment: People Manager isaiah Kidney disease, GFR = <60. Kidney failure, GFR = <15. The GFR estimate is not adjusted for extreme body surface area or acute process, nor has it been validated for women or ethnic groups other than and . Performed By: #### A CBC, CMPF, MG #### Testing performed at [place] [id number] Glucose [Mass/Vol] 111 mg/dL High 70-100 [facility] Comment on above: Result Comment: NORMAL <100 mg/dL PREDIABETES 101-126 mg/dL DIABETES 126 mg/dL or higher Performed By: #### A CBC, CMPF, MG #### Testing performed at [address] [address] Potassium [Moles/Vol] 4.1 mmol/L Normal 3.5-5.1 [facility] Comment on above: Performed By: #### A CBC, CMPF, MG #### Testing performed at [address] [address] Protein [Mass/Vol] 6.8 g/dL Normal 6.3-8.2 [facility] Comment on above: Performed By: #### A CBC, CMPF, MG #### Testing performed at [address] [address] Sodium [Moles/Vol] 138 mmol/L Normal 137-145 [facility] Comment on above: Performed By: #### A CBC, CMPF, MG #### Testing performed at [address] [address] Urea nitrogen [Mass/Vol] 18 mg/dL Normal 7-20 [facility] Comment on above: Performed By: #### A CBC, CMPF, MG #### Testing performed at [place] [id number] COMPREHENSIVE METABOLIC PANE Karri 12-07-2023 Albumin [Mass/Vol] 4.0 G/dl 3.5 - 5.0 G/dl [facility] Albumin/Globulin [Mass ratio] 1.4 {ratio} RATIO [facility] ALP [Catalytic activity/Vol] 99 U/L [facility] ALT [Catalytic activity/Vol] 21 U/L NINF [facility] AST [Catalytic activity/Vol] 20 U/L [facility] Bilirubin [Mass/Vol] 0.4 mg/dL [facility] Calcium [Mass/Vol] 8.6 mg/dL [facility] Chloride [Moles/Vol] 105 mmol/L [facility] Comment on above: Please note: Triglyc eride levels of 600mg/dL or higher may positively bias chloride results by approximately 2.1 mmol CO2 [Moles/Vol] 29 mmol/L [facility] Creatinine [Mass/Vol] 1.30 mg/dL High [facility] GFR COMMENT Average GFR for 70+ years old = 75. [facility] Comment on above: Chronic Kidney disea se, GFR = <60. Kidney failure, GFR = <15. The GFR estimate is not adjusted for extreme body surface area or acute process, nor has it been validated for women or ethnic groups other than and . GFR/1.73 sq M.predicted among blacks MDRD (S/P/Bld) [Vol rate/Area] 70 mL/min/{1.73_m2} ml/min/1.73sq .m [facility] GFR/1.73 sq M.predicted among non-blacks MDRD (S/P/Bld) [Vol rate/Area] 58 mL/min/{1.73_m2} ml/min/1.73sq .m [facility] Glucose post fast [Mass/Vol] 111 mg/dL High [facility] Comment on above: NORMAL <100 mg/dL PREDIABETES 101-126 mg/dL DIABETES 126 mg/dL or higher Interpretation and review of laboratory results Abnormal [facility] Potassium [Moles/Vol] 4.1 mmol/L [facility] Protein [Mass/Vol] 6.8 g/dL [facility] Sodium [Moles/Vol] 138 mmol/L [facility] Urea nitrogen [Mass/Vol] 18 mg/dL [facility] INFLUENZA A AND B, PCRon FLUAV and FLUBV Ag IF Nom (Unsp spec) Negative NEGATIVE [facility] FLUBV Ag IA Ql (Unsp spec) Negative NEGATIVE [facility] Comment on above: TESTING PERFORMED BY [place] MAGNESIUMon 12-07-2023 Magnesium [Mass/Vol] 2.3 mg/dL [facility] Magnesium [Mass/Vol] 2.3 mg/dL Normal 1.6-2.3 [facility] Comment on above: Performed By: #### A CBC, CMPF, MG #### Testing performed at [address] [address] NOVEL CORONAVIRUSon 12-07-19 24 NARRATIVE This test was performed using isothermal [place] and has been approved as Emergency Use Authorization (EUA) for the qualitative detection [id number] nucleic acid. Normal [facility] Comment on above: Performed By: #### R FLUAB #### Testing performed at [address] [address] SARS-CoV-2 (COVID-19) RNA [place]+probe Ql (Unsp spec) Not detected Normal NOT DETECTED [facility] Comment on above: Result Comment: Nega tive [...] #### R FLUAB #### [place] [address] NOVEL CORONAVIRUS LAB 1 - NA SOPHARYNGEALon 12-07-2023 NARRATIVE -1 This test was performed using isothermal [place] and has been approved as Emergency Use Authorization (EUA) for the qualitative detection [id number] nucleic acid. [facility] SARS-CoV-2 (COVID-19) RNA [place]+probe Ql (Unsp spec) Not detected NOT DETECTED [facility] Comment on above: Negative results do not [...] patient is critically ill or clinically deteriorating. [facility] No Panel Informationon 12-06 [facility] RAPID FLU Aon 12-07-2023 INFLUENZA A Negative Normal NEGATIVE [facility] Comment on above: Performed By: #### T ROHS #### Testing performed at [place] [id number] INFLUENZA B Negative Normal NEGATIVE [facility] Comment on above: Result Comment: TEST ING PERFORMED BY [place] Performed By: #### T ROHS #### Testing performed at [address] [address] RESPIRATORY SYNCYTIAL VIRUS PCRon 12-07-2023 RSV Ag IA Ql (Unsp spec) Negative NEGATIVE [facility] RSVon 12-07-2023 RSV Negative Normal NEGATIVE [facility] Comment on above: Performed By: #### R FLUAB #### Testing performed at [address] [address] TROPONIN I, HIGH SENSITIVITY on 12-07-2023 TROPONIN I, HIGH SENSITIVITY 16 pg/mL 0 - 20 pg/mL [facility] Comment on above: Indeterminant: >12 to 100 pg/mL female >20 to 100 pg/mL male Indicative of myocardial injury. Serial sampling is recommended, a change of greater than or equal to 20 pg/mL is indicative of acute coronary syndrome. [facility] TROPONIN I, HIGH SENSITIVITY 16 pg/mL Normal 0-20 [facility] Comment on above: Result Comment: Indeterminant: >12 to 100 pg/mL female >20 to 100 pg/mL male Indicative of myocardial injury. Serial sampling is recommended, a change of greater than or equal to 20 pg/mL is indicative of acute coronary syndrome. Performed By: #### T ROHS #### Testing performed at [facility] [address] [place] [address] XR CHEST PA 1 VIEWon 024 XR CHEST PA 1 VIEW XR CHEST PA 1 VIEW 12/06/2023 11:47 PM CDT: History: Shortness of breath Comparison: 08/23/2023 Technique: 1 view chest Findings: The cardiomediastinal silhouette is normal. The lungs are clear without infiltrate, effusion, or pneumothorax. The bones are intact. Impression: No acute cardiopulmonary process. Normal [facility] XR Chest PA uprighton 2023 Impression: No [...] intact. IMPRESSION Impression: No acute cardiopulmonary process. [facility] Radiology Study observation (narrative) [facility] XR Chest PA uprightOrdered B y: Nate Corona on 12-07-2023 [facility] SPECT Heart perfusion at res t and [...] HR: 61 bpm Max Heart Rate (APMHR): 147.152249 bpm Max HR Achieved: 78 bpm Target HR (85% APMHR): 124.788161 bpm % of APMHR: 53.06 Recovery HR: [...] Resting HR: 61 bpmMax Heart Rate (APMHR): 147.600857 bpm Max HR Achieved: 78 bpmTarget HR (85% APMHR): 124.556934 bpm % of APMHR: 53.06 Recovery HR: 67 bpm HR response to stress: Normal HR response to stress BP Resting BP: 130/74 mmHg Max BP: 137/78 mmHg BP response to stress: Normal blood pressure response to stress. ECG Resting ECG: normal ST Change: none Arrhythmia: none Conclusion nondiagnostic stress test, O2 sat 96% [facility] Radiology Study observation (narrative) [facility] SPECT Heart perfusion at res t and W stress and W radionuclide IVOrdered By: David Yepez on 10-31-2023 [facility] Work Phone: CBCon 08-23-2023 ABSOLUTE BAS 0.0 10*3/uL Normal 0.0-0.2 [facility] Comment on above: Performed By: #### R FLUAB #### Testing performed at [address] [address] ABSOLUTE EOS 0.1 10*3/uL Normal 0.0-0.7 [facility] Comment on above: Performed By: #### R FLUAB #### Testing performed at [address] [address] ABSOLUTE NEUTROPHIL COUNT 1.9 10*3/uL Normal 1.4-6.5 [facility] Comment on above: Performed By: #### R FLUAB #### Testing performed at [address] [address] Basophils/100 WBC (Bld) 0.7 % Normal 0.0-2.0 [facility] Comment on above: Performed By: #### R FLUAB #### Testing performed at [address] [address] DTYPE AUTO DIFF Normal [facility] Comment on above: Performed By: #### R FLUAB #### Testing performed at [address] [address] Eosinophils/100 WBC (Bld) 3.0 % Normal 0.0-11.0 [facility] Comment on above: Performed By: #### R FLUAB #### Testing performed at [address] [address] Lymphocytes (Bld) [#/Vol] 1.7 10*3/uL Normal 1.2-3.4 [facility] Comment on above: Performed By: #### R FLUAB #### Testing performed at [address] [address] Lymphocytes/100 WBC (Bld) 37.8 % Normal 20.0-55.0 [facility] Comment on above: Performed By: #### R FLUAB #### Testing performed at [address] [address] Monocytes (Bld) [#/Vol] 0.8 10*3/uL High 0.0-0.7 [facility] Comment on above: Performed By: #### R FLUAB #### Testing performed at [address] [address] Monocytes/100 WBC (Bld) 17.1 % High 0.0-10.0 [facility] Comment on above: Performed By: #### R FLUAB #### Testing performed at [address] [address] Neutrophils/100 WBC (Bld) 41.4 % Normal 37.0-75.0 [facility] Comment on above: Performed By: #### R FLUAB #### Testing performed at [address] [address] Erythrocyte distribution width (RBC) [Ratio] 14.4 % Normal 11.5-14.5 [facility] Comment on above: Performed By: #### R FLUAB #### Testing performed at [address] [address] Hematocrit (Bld) [Volume fraction] 46.2 % Normal 42.0-52.0 [facility] Comment on above: Performed By: #### R FLUAB #### Testing performed at [address] [address] Hemoglobin (Bld) [Mass/Vol] 15.8 g/dL Normal 14.0-18.0 [facility] Comment on above: Performed By: #### R FLUAB #### Testing performed at [address] [address] MCH (RBC) [Entitic mass] 30.7 pg Normal 26.0-35.0 [facility] Comment on above: Performed By: #### R FLUAB #### Testing performed at [address] [address] MCHC (RBC) [Mass/Vol] 34.3 g/dL Normal 27.0-37.0 [facility] Comment on above: Performed By: #### R FLUAB #### Testing performed at [address] [address] MCV (RBC) [Entitic vol] 89.4 fL Normal 80.0-100.0 [facility] Comment on above: Performed By: #### R FLUAB #### Testing performed at [address] [address] Platelet mean volume (Bld) [Entitic vol] 7.1 fL Low 7.4-11.0 [facility] Comment on above: Performed By: #### R FLUAB #### Testing performed at [address] [address] Platelets (Bld) [#/Vol] 231 10*3/uL Normal 130-400 [facility] Comment on above: Performed By: #### R FLUAB #### Testing performed at [address] [address] RBC (Bld) [#/Vol] 5.16 10*6/uL Normal 4.0-6.1 [facility] Comment on above: Performed By: #### R FLUAB #### Testing performed at [address] [address] WBC (Bld) [#/Vol] 4.6 10*3/uL Normal 3.6-11.0 [facility] Comment on above: Performed By: #### R FLUAB #### Testing performed at [address] [address] CBC, EDIF, PLATELETon 2023 ABSOLUTE BASOPHIL COUNT 0.0 10*3/uL 0.0 - 0.2 10*3/uL [facility] Basophils/100 WBC (Bld) 0.7 % 0.0 - 2.0 % [facility] Differential cell count method Nom (Bld) AUTO DIFF % [facility] Eosinophils (Bld) [#/Vol] 0.1 10*3/uL 0.0 - 0.7 10*3/uL [facility] Eosinophils/100 WBC (Bld) 3.0 % 0.0 - 11.0 % [facility] Erythrocyte distribution width (RBC) [Ratio] 14.4 % 11.5 - 14.5 % [facility] Hematocrit (Bld) [Volume fraction] 46.2 % 42.0 - 52.0 % [facility] Hemoglobin (Bld) [Mass/Vol] 15.8 g/dL [facility] Interpretation and review of laboratory results Abnormal [facility] Lymphocytes (Bld) [#/Vol] 1.7 10*3/uL 1.2 - 3.4 10*3/uL [facility] Lymphocytes/100 WBC (Bld) 37.8 % 20.0 - 55.0 % [facility] MCH (RBC) [Entitic mass] 30.7 pg 26.0 - 35.0 PG [facility] MCHC (RBC) [Mass/Vol] 34.3 g/dL [facility] MCV (RBC) [Entitic vol] 89.4 fL [facility] Monocytes (Bld) [#/Vol] 0.8 10*3/uL High 0.0 - 0.7 10*3/uL [facility] Monocytes/100 WBC (Bld) 17.1 % High 0.0 - 10.0 % [facility] Neutrophils (Bld) [#/Vol] 1.9 10*3/uL 1.4 - 6.5 10*3/uL [facility] Neutrophils/100 WBC (Bld) 41.4 % 37.0 - 75.0 % [facility] Platelet mean volume (Bld) [Entitic vol] 7.1 fL Low [facility] Platelets (Bld) [#/Vol] 231 10*3/uL 130 - 400 10*3/uL [facility] RBC (Bld) [#/Vol] 5.16 10*6/uL 4.0 - 6.1 10*6/uL [facility] WBC (Bld) [#/Vol] 4.6 10*3/uL 3.6 - 11.0 10*3/uL [facility] CMP FASTINGon 08-23-2023 A:G RATIO 1.4 RATIO Normal [facility] Comment on above: Performed By: #### R FLUAB #### Testing performed at [facility] [address] [place] [address] ALBUMIN 4.1 G/dl Normal 3.5-5.0 [facility] Comment on above: Performed By: #### R FLUAB #### Testing performed at [address] [address] ALP [Catalytic activity/Vol] 95 U/L Normal 38-126 [facility] Comment on above: Performed By: #### R FLUAB #### Testing performed at [address] [address] ALT [Catalytic activity/Vol] 24 U/L Normal <50 [facility] Comment on above: Performed By: #### R FLUAB #### Testing performed at [address] [address] AST [Catalytic activity/Vol] 31 U/L Normal 17-59 [facility] Comment on above: Performed By: #### R FLUAB #### Testing performed at [address] [address] Bilirubin [Mass/Vol] 0.5 mg/dL Normal 0.2-1.3 [facility] Comment on above: Performed By: #### R FLUAB #### Testing performed at [address] [address] Calcium [Mass/Vol] 8.4 mg/dL Normal 8.4-10.2 [facility] Comment on above: Performed By: #### R FLUAB #### Testing performed at [address] [address] Chloride [Moles/Vol] 103 mmol/L Normal 98-107 [facility] Comment on above: Result Comment: Pleeleanor domínguez note: Triglyceride levels of 600mg/dL or higher may positively bias chloride results by approximately 2.1 mmol Performed By: #### R FLUAB #### Testing performed at [address] [address] CO2 [Moles/Vol] 27 mmol/L Normal 22-30 [facility] Comment on above: Performed By: #### R FLUAB #### Testing performed at [address] [address] Creatinine [Mass/Vol] 1.10 mg/dL Normal 0.70-1.20 [facility] Comment on above: Performed By: #### R FLUAB #### Testing performed at [address] [address] EST. GFR, 84 ml/min/1.73sq.m [facility] Comment on above: Performed By: #### R FLUAB #### Testing performed at [address] [address] EST. GFR,Non 70 ml/min/1.73sq.m [facility] Comment on above: Performed By: #### R FLUAB #### Testing performed at [address] [address] GFR Information Average GFR for 70+ years old = 75. [facility] Comment on above: Result Comment: People Manager isaiah Kidney disease, GFR = <60. Kidney failure, GFR = <15. The GFR estimate is not adjusted for extreme body surface area or acute process, nor has it been validated for women or ethnic groups other than and . Performed By: #### R FLUAB #### Testing performed at [address] [address] Glucose [Mass/Vol] 100 mg/dL Normal 70-100 [facility] Comment on above: Result Comment: NORMAL <100 mg/dL PREDIABETES 101-126 mg/dL DIABETES 126 mg/dL or higher Performed By: #### R FLUAB #### Testing performed at [address] [address] Potassium [Moles/Vol] 3.8 mmol/L Normal 3.5-5.1 [facility] Comment on above: Performed By: #### R FLUAB #### Testing performed at [address] [address] Protein [Mass/Vol] 7.1 g/dL Normal 6.3-8.2 [facility] Comment on above: Performed By: #### R FLUAB #### Testing performed at [address] [address] Sodium [Moles/Vol] 135 mmol/L Low 137-145 [facility] Comment on above: Performed By: #### R FLUAB #### Testing performed at [address] [address] Urea nitrogen [Mass/Vol] 14 mg/dL Normal 7-20 [facility] Comment on above: Performed By: #### R FLUAB #### Testing performed at [facility] [address] [place] [address] COMPREHENSIVE METABOLIC PANE Karri 08-23-2023 Albumin [Mass/Vol] 4.1 G/dl 3.5 - 5.0 G/dl [facility] Albumin/Globulin [Mass ratio] 1.4 {ratio} RATIO [facility] ALP [Catalytic activity/Vol] 95 U/L [facility] ALT [Catalytic activity/Vol] 24 U/L NINF [facility] AST [Catalytic activity/Vol] 31 U/L [facility] Bilirubin [Mass/Vol] 0.5 mg/dL [facility] Calcium [Mass/Vol] 8.4 mg/dL [facility] Chloride [Moles/Vol] 103 mmol/L [facility] Comment on above: Please note: Triglyc eride levels of 600mg/dL or higher may positively bias chloride results by approximately 2.1 mmol CO2 [Moles/Vol] 27 mmol/L [facility] Creatinine [Mass/Vol] 1.10 mg/dL [facility] GFR COMMENT Average GFR for 70+ years old = 75. [facility] Comment on above: Chronic Kidney disea se, GFR = <60. Kidney failure, GFR = <15. The GFR estimate is not adjusted for extreme body surface area or acute process, nor has it been validated for women or ethnic groups other than and . GFR/1.73 sq M.predicted among blacks MDRD (S/P/Bld) [Vol rate/Area] 84 mL/min/{1.73_m2} ml/min/1.73sq .m [facility] GFR/1.73 sq M.predicted among non-blacks MDRD (S/P/Bld) [Vol rate/Area] 70 mL/min/{1.73_m2} ml/min/1.73sq .m [facility] Glucose post fast [Mass/Vol] 100 mg/dL [facility] Comment on above: NORMAL <100 mg/dL PREDIABETES 101-126 mg/dL DIABETES 126 mg/dL or higher Interpretation and review of laboratory results Abnormal [facility] Potassium [Moles/Vol] 3.8 mmol/L [facility] Protein [Mass/Vol] 7.1 g/dL [facility] Sodium [Moles/Vol] 135 mmol/L Low [facility] Urea nitrogen [Mass/Vol] 14 mg/dL [facility] CT PE STUDYon 08-23-2023 CT PE STUDY [...] pulmonary embolus or acute intrathoracic abnormality. Normal [facility] CT Pulmonary arteries for pu lmonary emboluson [...] of pulmonary embolus or acute intrathoracic abnormality. [facility] Radiology Study observation (narrative) [facility] CT Pulmonary arteries for pu lmonary embolusOrdered By: Tabby Reynaga on 08-23-2023 [facility] Work Phone: D DIMERon 08-23-2023 D DIMER 0.52 ??g/ml Critically high <0.50 [facility] Comment on above: Result Comment: If r [...] #### R FLUAB #### Testing performed at [address] [address] D-DIMER,QUANTITATIVEon 08-23 Fibrin D-dimer FEU (PPP) [Mass/Vol] 0.52 Critically high [facility] Comment on above: If result is greater than the cutoff value of 0.56 mg/L then the potential for PE or DVT exists. Other conditions exist which may cause a falsely elevated level. Please correlate clinically, including radiological findings and other clinical parameters. Result called to and read back by: USHA 08/23/2023 @ 17:50 by [facility] Interpretation and review of laboratory results Abnormal [facility] INFLUENZA A AND B, PCRon FLUAV and FLUBV Ag IF Nom (Unsp spec) Negative NEGATIVE [facility] FLUBV Ag IA Ql (Unsp spec) Negative NEGATIVE [facility] Comment on above: TESTING PERFORMED BY [place] [facility] NOVEL CORONAVIRUSon 08-23-19 24 NARRATIVE This test was performed using isothermal [place] and has been approved as Emergency Use Authorization (EUA) for the qualitative detection [id number] nucleic acid. Normal [facility] Comment on above: Performed By: #### C OVID #### Testing performed at [address] [place] [address] SARS-CoV-2 (COVID-19) RNA [place]+probe Ql (Unsp spec) Not detected Normal NOT DETECTED [facility] Comment on above: Result Comment: Nega tive [...] #### C OVID #### Testing performed at [address] [place] [address] NOVEL CORONAVIRUS LAB 1 - NA SOPHARYNGEALon 08-23-2023 NARRATIVE -1 This test was performed using isothermal [place] and has been approved as Emergency Use Authorization (EUA) for the qualitative detection [id number] nucleic acid. [facility] SARS-CoV-2 (COVID-19) RNA [place]+probe Ql (Unsp spec) Not detected NOT DETECTED [facility] Comment on above: Negative results do not [...] patient is critically ill or clinically deteriorating. [facility] RAPID FLU Aon 08-23-2023 INFLUENZA A Negative Normal NEGATIVE [facility] Comment on above: Performed By: #### R FLUAB #### [place] [address] INFLUENZA B Negative Normal NEGATIVE [facility] Comment on above: Result Comment: TEST ING PERFORMED BY [place] Performed By: #### R FLUAB #### Testing performed at [place] [id number] RESPIRATORY SYNCYTIAL VIRUS PCRon 08-23-2023 RSV Ag IA Ql (Unsp spec) Negative NEGATIVE [facility] RSVon 08-23-2023 RSV Negative Normal NEGATIVE [facility] Comment on above: Performed By: #### T ROHS #### Testing performed at [place] [id number] TROPONIN I, HIGH SENSITIVITY on 08-23-2023 TROPONIN I, HIGH SENSITIVITY 3 pg/mL 0 - 20 pg/mL [facility] Comment on above: Indeterminant: >12 to 100 pg/mL female >20 to 100 pg/mL male Indicative of myocardial injury. Serial sampling is recommended, a change of greater than or equal to 20 pg/mL is indicative of acute coronary syndrome. [facility] TROPONIN I, HIGH SENSITIVITY 3 pg/mL Normal 0-20 [facility] Comment on above: Result Comment: Indeterminant: >12 to 100 pg/mL female >20 to 100 pg/mL male Indicative of myocardial injury. Serial sampling is recommended, a change of greater than or equal to 20 pg/mL is indicative of acute coronary syndrome. Performed By: #### T ROHS #### Testing performed at [place] [id number] XR CHEST PA 1 VIEWon 024 XR [...] There is no acute cardiopulmonary process. Normal [facility] XR Chest PA uprighton 2023 IMPRESSION: There [...] IMPRESSION: There is no acute cardiopulmonary process. 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 Normal [facility] Neck W contrast Ceci -1 IMPRESSION: [...] [facility] Radiology Study observation (narrative) [facility] CT Neck W contrast IVOrdered By: Jessenia Stewart on 05-11-2023 [facility] Work Phone: US NECK SOFT TISSUEon 2022 [...] further investigate a suspicious palpable lesion Normal [facility] US Neckon 04-10-2023 IMPRESSION: The area of [...] could further investigate a suspicious palpable lesion [facility] Radiology Study observation (narrative) [facility] US NeckOrdered By: Edwin Nichole on 04-10-2023 [facility] Work Phone: CBC AUTO DIFFon 11-23-2022 BASO # 0.1 103/ul Normal 0.0-0.1 [facility] Comment on above: Performed By: #### C MP, BNP, YESI #### [facility] [address] [place] [address] Dr. Emilie Stack Basophils/100 WBC (Bld) 0.9 % Normal 0.2-2.0 [facility] Comment on above: Performed By: #### C MP, BNP, YESI #### [facility] [address] [place] [address] Dr. Emilie Stack EO # 0.0 103/ul Normal 0.0-0.7 [facility] Comment on above: Performed By: #### C MP, BNP, YESI #### [facility] [address] [place] [address] Dr. Emilie Stack Eosinophils/100 WBC (Bld) 0.7 % Critically low 0.9-7.0 [facility] Comment on above: Performed By: #### C MP, BNP, YESI #### [facility] [address] [place] [address] Dr. Emilie Stack Erythrocyte distribution width (RBC) [Ratio] 13.9 % Normal 11.0-15.0 [facility] Comment on above: Performed By: #### C MP, BNP, YESI #### [facility] [address] [place] [address] Dr. Emilie Stack Hematocrit (Bld) [Volume fraction] 45.3 % Normal 42.0-54.0 [facility] Comment on above: Performed By: #### C MP, BNP, YESI #### [facility] [address] [place] [address] Dr. Emilie Stack Hemoglobin (Bld) [Mass/Vol] 15.2 g/dL Normal 14.0-18.0 [facility] Comment on above: Performed By: #### C MP, BNP, YESI #### [facility] [address] [place] [address] Dr. Emilie Stack IG # 0.02 10e3/ul Normal 0.00-0.03 [facility] Comment on above: Performed By: #### C MP, BNP, YESI #### [facility] [address] [place] [address] Dr. Emilie Stack IG % 0.4 % Normal 0.0-0.5 [facility] Comment on above: Performed By: #### C MP, BNP, YESI #### [facility] [address] [place] [address] Dr. Emilie Stack LYMPH # 0.9 103/ul Critically low 1.2-3.8 [facility] Comment on above: Performed By: #### C MP, BNP, YESI #### [facility] [address] [place] [address] Dr. Emilie Stack Lymphocytes/100 WBC (Bld) 16.2 % Critically low 20.5-60.0 [facility] Comment on above: Performed By: #### C MP, BNP, YESI #### [facility] [address] [place] [address] Dr. Emilie Stack MANUAL DIFF REQ NO Normal [facility] Comment on above: Performed By: #### C MP, BNP, YESI #### [facility] [address] [place] [address] Dr. Emilie Stack MCH (RBC) [Entitic mass] 30.5 pg Normal 25.9-34.0 [facility] Comment on above: Performed By: #### C MP, BNP, YESI #### [facility] [address] [place] [address] Dr. Emilie Stack MCHC (RBC) [Mass/Vol] 33.6 g/dL Normal 29.9-35.2 [facility] Comment on above: Performed By: #### C MP, BNP, YESI #### [facility] [address] [place] [address] Dr. Emilie Stack MCV (RBC) [Entitic vol] 90.8 fL Normal 80.0-94.0 [facility] Comment on above: Performed By: #### C MP, BNP, YESI #### [facility] [address] [place] [address] Dr. Emilie Stack MONO # 0.8 103/ul Normal 0.3-0.8 [facility] Comment on above: Performed By: #### C MP, BNP, YESI #### [facility] [address] [place] [address] Dr. Emilie Stack Monocytes/100 WBC (Bld) 15.1 % Critically high 1.7-12.0 [facility] Comment on above: Performed By: #### C MP, BNP, YESI #### [facility] [address] [place] [address] Dr. Emilie Stack NEUT # 3.7 103/ul Normal 1.4-6.5 [facility] Comment on above: Performed By: #### C MP, BNP, YESI #### [facility] [address] [place] [address] Dr. Emilie Stack Neutrophils/100 WBC (Bld) 66.7 % Normal 43.0-75.0 [facility] Comment on above: Performed By: #### C MP, BNP, YESI #### [facility] [address] [place] [address] Dr. Emilie Stack Platelet mean volume (Bld) [Entitic vol] 8.6 fL Critically low 9.5-13.5 [facility] Comment on above: Performed By: #### C MP, BNP, YESI #### [facility] [address] [place] [address] Dr. Emilie Stack PLT 301 103/ul Normal 150-450 [facility] Comment on above: Performed By: #### C MP, BNP, YESI #### [facility] [address] [place] [address] Dr. Emilie Stack RBC 4.99 106/ul Normal 4.70-6.10 [facility] Comment on above: Performed By: #### C MP, BNP, YESI #### [facility] [address] [place] [address] Dr. Emilie Stack WBC 5.5 103/ul Normal 4.0-11.0 [facility] Comment on above: Performed By: #### C MP, BNP, YESI #### [facility] [address] [place] [address] Dr. Emilie Stack [facility] SARS-CoV-2 (COVID-19) RNA [place]+probe Ql (Unsp spec) Not detected Normal NOT DETECTED [facility] Comment on above: Result Comment: THIS TEST IS NOT APPROVED BY THE FDA. IT HAS BEEN AUTHORIZED FOR USE UNDER AN EMERGENCY USE AUTHORIZATION. Performed By: #### T ROSSY, CMP, BNP #### [facility] [address] [place] [address] Dr. Emilie Stack PROF CHEM 8 (BAS METB)on Anion gap [Moles/Vol] 14.2 mmol/L Normal [facility] Comment on above: Performed By: #### C MP, BNP, YESI #### [facility] [address] [place] [address] Dr. Emilie Stack Calcium [Mass/Vol] 8.7 mg/dL Normal 8.5-10.1 [facility] Comment on above: Performed By: #### C MP, BNP, YESI #### [facility] [address] [place] [address] Dr. Emilie Stack Chloride [Moles/Vol] 103 mmol/L Normal 98-107 [facility] Comment on above: Performed By: #### C MP, BNP, YESI #### [facility] [address] [place] [address] Dr. Emilie Stack CO2 [Moles/Vol] 25.9 mmol/L Normal 21.0-32.0 [facility] Comment on above: Performed By: #### C MP, BNP, YESI #### [facility] [address] [place] [address] Dr. Emilie Stack Creatinine [Mass/Vol] 1.16 mg/dL Normal 0.70-1.30 [facility] Comment on above: Performed By: #### C MP, BNP, YESI #### [facility] [address] [address] [address] Emilie Stack EGFR-AF CITIZEN [place] >60 Normal >=60 [facility] Comment on above: Performed By: #### C MP, BNP, YESI #### [facility] [address] [address] [address] Emilie Stack EGFR-NON AF CITIZEN OF [place] >60 Normal >=60 [facility] Comment on above: Performed By: #### C MP, BNP, YESI #### [facility] [address] [address] [address] Emilie Stack Glucose [Mass/Vol] 100 mg/dL Normal 74-106 [facility] Comment on above: Performed By: #### C MP, BNP, YESI #### [facility] [address] [place] [address] Dr. Emilie Stack Potassium [Moles/Vol] 4.1 mmol/L Normal 3.5-5.1 [facility] Comment on above: Performed By: #### C MP, BNP, YESI #### [facility] [address] [address] [address] Emilie Stack Sodium [Moles/Vol] 139 mmol/L Normal 136-145 [facility] Comment on above: Performed By: #### C MP, BNP, YESI #### [facility] [address] [place] [address] Dr. Emilie Stack Urea nitrogen [Mass/Vol] 10.0 mg/dL Normal 7.0-18.0 [facility] Comment on above: Performed By: #### C MP, BNP, YESI #### [facility] [address] [place] [address] Dr. Emilie Stack Urea nitrogen/Creatinine [Mass ratio] 8.6 mg/mg Normal [facility] Comment on above: Performed By: #### C MP, BNP, YESI #### [facility] [address] [place] [address] Dr. Emilie Stack SYMPTOMATIC COVID-19 ANTIGEN on 11-23-2022 EUA Statement SEE BELOW Normal [facility] Comment on above: [...] By: #### T ROSSY BNP, CMP #### [facility] [address] [place] [address] Dr. Emilie Stack SARS-CoV-2 (COVID-19) RNA [place]+probe Ql (Unsp spec) Negative Normal NEGATIVE [facility] Comment on above: Performed By: #### T ROSSY BNP, CMP #### [facility] [address] [place] [address] Dr. Emilie Stack THEOPHYLLINEon 11-23-2022 THEOPHYLLINE 8.0 ug/mL Critically low 10.0-20.0 [facility] Comment on above: Performed By: #### C FRANCES BNP, YESI #### [facility] [address] [place] [address] Dr. Emilie Stack XR CHEST 1 Von [...] EDWIN NICHOLE Date: 2022-11-23 12:36 Normal [facility] BNPon 08-15-2022 Natriuretic peptide B (Bld) [Mass/Vol] 107.0 pg/mL Normal <=900.0 [facility] Comment on above: Performed By: #### C MP, BNP, YESI #### [facility] [address] [place] [address] Dr. Emilie Stack CBC AUTO DIFFon 08-15-2022 BASO # 0.0 103/ul Normal 0.0-0.1 [facility] Comment on above: Performed By: #### C MP, BNP, YESI #### [facility] [address] [place] [address] Dr. Emilie Stack Basophils/100 WBC (Bld) 0.2 % Normal 0.2-2.0 [facility] Comment on above: Performed By: #### C MP, BNP, YESI #### [facility] [address] [place] [address] Dr. Emilie Stack EO # 0.0 103/ul Normal 0.0-0.7 [facility] Comment on above: Performed By: #### C MP, BNP, YESI #### [facility] [address] [place] [address] Dr. Emilie Stack Eosinophils/100 WBC (Bld) 0.0 % Critically low 0.9-7.0 [facility] Comment on above: Performed By: #### C MP, BNP, YESI #### [facility] [address] [place] [address] Dr. Emilie Stack Erythrocyte distribution width (RBC) [Ratio] 14.6 % Normal 11.0-15.0 [facility] Comment on above: Performed By: #### C MP, BNP, YESI #### [facility] [address] [place] [address] Dr. Emilie Stack Hematocrit (Bld) [Volume fraction] 41.0 % Critically low 42.0-54.0 [facility] Comment on above: Performed By: #### C MP, BNP, YESI #### [facility] [address] [place] [address] Dr. Emilie Stack Hemoglobin (Bld) [Mass/Vol] 13.8 g/dL Critically low 14.0-18.0 [facility] Comment on above: Performed By: #### C MP, BNP, YESI #### [facility] [address] [place] [address] Dr. Emilie Stack IG # 0.12 10e3/ul Critically high 0.00-0.03 [facility] Comment on above: Performed By: #### C MP, BNP, YESI #### [facility] [address] [place] [address] Dr. Emilie Stack IG % 1.0 % Critically high 0.0-0.5 [facility] Comment on above: Performed By: #### C MP, BNP, YESI #### [facility] [address] [place] [address] Dr. Emilie Stack LYMPH # 0.5 103/ul Critically low 1.2-3.8 [facility] Comment on above: Performed By: #### C MP, BNP, YESI #### [facility] [address] [place] [address] Dr. Emilie Stack Lymphocytes/100 WBC (Bld) 3.8 % Critically low 20.5-60.0 [facility] Comment on above: Performed By: #### C MP, BNP, YESI #### [facility] [address] [place] [address] Dr. Emilie Stack MANUAL DIFF REQ NO Normal [facility] Comment on above: Performed By: #### C MP, BNP, YESI #### [facility] [address] [place] [address] Dr. Emilie Stack MCH (RBC) [Entitic mass] 30.3 pg Normal 25.9-34.0 [facility] Comment on above: Performed By: #### C MP, BNP, YESI #### [facility] [address] [place] [address] Dr. Emilie Stack MCHC (RBC) [Mass/Vol] 33.7 g/dL Normal 29.9-35.2 [facility] Comment on above: Performed By: #### C MP, BNP, YESI #### [facility] [address] [place] [address] Dr. Emilie Stack MCV (RBC) [Entitic vol] 89.9 fL Normal 80.0-94.0 [facility] Comment on above: Performed By: #### C MP, BNP, YESI #### [facility] [address] [place] [address] Dr. Emilie Stack MONO # 0.8 103/ul Normal 0.3-0.8 [facility] Comment on above: Performed By: #### C MP, BNP, YESI #### [facility] [address] [place] [address] Dr. Emilie Stack Monocytes/100 WBC (Bld) 6.0 % Normal 1.7-12.0 [facility] Comment on above: Performed By: #### C MP, BNP, YESI #### [facility] [address] [place] [address] Dr. Emilie Stack NEUT # 11.1 103/ul Critically high 1.4-6.5 [facility] Comment on above: Performed By: #### C MP, BNP, YESI #### [facility] [address] [place] [address] Dr. Emilie Stack Neutrophils/100 WBC (Bld) 89.0 % Critically high 43.0-75.0 [facility] Comment on above: Performed By: #### C MP, BNP, YESI #### [facility] [address] [place] [address] Dr. Emilie Stack Platelet mean volume (Bld) [Entitic vol] 8.6 fL Critically low 9.5-13.5 [facility] Comment on above: Performed By: #### C MP, BNP, YESI #### [facility] [address] [place] [address] Dr. Emilie Stack PLT 268 103/ul Normal 150-450 [facility] Comment on above: Performed By: #### C MP, BNP, YESI #### [facility] [address] [place] [address] Dr. Emilie Stack RBC 4.56 106/ul Critically low 4.70-6.10 [facility] Comment on above: Performed By: #### C MP, BNP, YESI #### [facility] [address] [address] [address] Emilie Stack WBC 12.5 103/ul Critically high 4.0-11.0 [facility] Comment on above: Performed By: #### C MP, BNP, YESI #### [facility] [address] [place] [address] Dr. Emilie Stack PROF 14(COMP METB)on 023 Albumin [Mass/Vol] 3.2 g/dL Critically low 3.4-5.0 [facility] Comment on above: Performed By: #### C MP, BNP, YESI #### [facility] [address] [place] [address] Dr. Emilie Stack Albumin/Globulin [Mass ratio] 1.1 {ratio} Normal [facility] Comment on above: Performed By: #### C MP, BNP, YESI #### [facility] [address] [place] [address] Dr. Emilie Stack ALP [Catalytic activity/Vol] 83 U/L Normal 46-116 [facility] Comment on above: Performed By: #### C MP, BNP, YESI #### [facility] [address] [place] [address] Dr. Emilie Stack ALT [Catalytic activity/Vol] 27 U/L Normal 16-63 [facility] Comment on above: Performed By: #### C MP, BNP, YESI #### [facility] [address] [place] [address] Dr. Emilie Stack Anion gap [Moles/Vol] 13.0 mmol/L Normal [facility] Comment on above: Performed By: #### C MP, BNP, YESI #### [facility] [address] [place] [address] Dr. Emilie Stack AST [Catalytic activity/Vol] 24 U/L Normal 15-37 [facility] Comment on above: Performed By: #### C MP, BNP, YESI #### [facility] [address] [place] [address] Dr. Emilie Stack Bilirubin [Mass/Vol] 0.3 mg/dL Normal 0.2-1.0 [facility] Comment on above: Performed By: #### C MP, BNP, YESI #### [facility] [address] [address] [address] Emilie Stack Calcium [Mass/Vol] 8.3 mg/dL Critically low 8.5-10.1 Th e [facility] Comment on above: Performed By: #### C MP, BNP, YESI #### [facility] [address] [place] [address] Dr. Emilie Stack Chloride [Moles/Vol] 104 mmol/L Normal 98-107 [facility] Comment on above: Performed By: #### C MP, BNP, YESI #### [facility] [address] [place] [address] Dr. Emilie Stack CO2 [Moles/Vol] 25.8 mmol/L Normal 21.0-32.0 [facility] Comment on above: Performed By: #### C MP, BNP, YESI #### [facility] [address] [place] [address] Dr. Emilie Stack Creatinine [Mass/Vol] 1.17 mg/dL Normal 0.70-1.30 [facility] Comment on above: Performed By: #### C MP, BNP, YESI #### [facility] [address] [place] [address] Dr. Emilie Stack EGFR-AF [place]IZ[place] >60 Normal >=60 [facility] Comment on above: Performed By: #### C MP, BNP, YESI #### [facility] [address] [place] [address] Dr. Emilie Stack EGFR-NON AF CITIZEN [place] >60 Normal >=60 [facility] Comment on above: Performed By: #### C MP, BNP, YESI #### [facility] [address] [place] [address] Dr. Emilie Stack Globulin (S) [Mass/Vol] 3.0 g/dL Normal [facility] Comment on above: Performed By: #### C MP, BNP, YESI #### [facility] [address] [place] [address] Dr. Emilie Stack Glucose [Mass/Vol] 179 mg/dL Critically high 74-106 [facility] Comment on above: Performed By: #### C MP BNP, YESI #### [facility] [address] [place] [address] Dr. Emilie Stack Potassium [Moles/Vol] 3.8 mmol/L Normal 3.5-5.1 [facility] Comment on above: Performed By: #### C MP BNP, YESI #### [facility] [address] [place] [address] Dr. Emilie Stack Protein [Mass/Vol] 6.2 g/dL Critically low 6.4-8.2 [facility] Comment on above: Performed By: #### C MP BNP, YESI #### [facility] [address] [place] [address] Dr. Emilie Stack Sodium [Moles/Vol] 139 mmol/L Normal 136-145 [facility] Comment on above: Performed By: #### C MP, BNP, YESI #### [facility] [address] [place] [address] Dr. Emilie Stack Urea nitrogen [Mass/Vol] 23.0 mg/dL Critically high 7.0-18.0 [facility] Comment on above: Performed By: #### C MP BNP, YESI #### [facility] [address] [place] [address] Dr. Emilie Stack Urea nitrogen/Creatinine [Mass ratio] 19.7 mg/mg Normal [facility] Comment on above: Performed By: #### C MP, BNP, YESI #### [facility] [address] [place] [address] Dr. Emilie Stack THEOPHYLLINEon 08-15-2022 THEOPHYLLINE 10.6 ug/mL Normal 10.0-20.0 [facility] Comment on above: Performed By: #### C MP, BNP, YESI #### [facility] [address] [place] [address] Dr. Emilie Stack BNPon 08-14-2022 Natriuretic peptide B (Bld) [Mass/Vol] 67.0 pg/mL Normal <=900.0 [facility] Comment on above: Performed By: #### T ROSSY, CMP, BNP #### [facility] [address] [place] [address] Dr. Emilie Stack CBC AUTO DIFFon 08-14-2022 BASO # 0.0 103/ul Normal 0.0-0.1 [facility] Comment on above: Performed By: #### C BC #### [facility] [address] [place] [address] Dr. Emilie Stack Basophils/100 WBC (Bld) 0.1 % Critically low 0.2-2.0 [facility] Comment on above: Performed By: #### C BC #### [facility] [address] [place] [address] Dr. Emilie Stack EO # 0.0 103/ul Normal 0.0-0.7 [facility] Comment on above: Performed By: #### C BC #### [facility] [address] [place] [address] Dr. Emilie Stack Eosinophils/100 WBC (Bld) 0.0 % Critically low 0.9-7.0 [facility] Comment on above: Performed By: #### C BC #### [facility] [address] [place] [address] Dr. Emilie Stack Erythrocyte distribution width (RBC) [Ratio] 14.5 % Normal 11.0-15.0 [facility] Comment on above: Performed By: #### C BC #### [facility] [address] [place] [address] Dr. Emilie Stack Hematocrit (Bld) [Volume fraction] 43.6 % Normal 42.0-54.0 [facility] Comment on above: Performed By: #### C BC #### [facility] [address] [place] [address] Dr. Emilie Stack Hemoglobin (Bld) [Mass/Vol] 14.7 g/dL Normal 14.0-18.0 [facility] Comment on above: Performed By: #### C BC #### [facility] [address] [place] [address] Dr. Emilie Stack IG # 0.11 10e3/ul Critically high 0.00-0.03 [facility] Comment on above: Performed By: #### C BC #### [facility] [address] [place] [address] Dr. Emilie Stack IG % 0.8 % Critically high 0.0-0.5 [facility] Comment on above: Performed By: #### C BC #### [facility] [address] [place] [address] Dr. Emilie Stack LYMPH # 0.5 103/ul Critically low 1.2-3.8 [facility] Comment on above: Performed By: #### C BC #### [facility] [address] [place] [address] Dr. Emilie Stack Lymphocytes/100 WBC (Bld) 3.4 % Critically low 20.5-60.0 [facility] Comment on above: Performed By: #### C BC #### [facility] [address] [place] [address] Dr. Emilie Stack MANUAL DIFF REQ NO Normal [facility] Comment on above: Performed By: #### C BC #### [facility] [address] [place] [address] Dr. Emilie Stack MCH (RBC) [Entitic mass] 29.8 pg Normal 25.9-34.0 [facility] Comment on above: Performed By: #### C BC #### [facility] [address] [place] [address] Dr. Emilie Stack MCHC (RBC) [Mass/Vol] 33.7 g/dL Normal 29.9-35.2 [facility] Comment on above: Performed By: #### C BC #### [facility] [address] [place] [address] Dr. Emilie Stack MCV (RBC) [Entitic vol] 88.3 fL Normal 80.0-94.0 [facility] Comment on above: Performed By: #### C BC #### [facility] [address] [place] [address] Dr. Emilie Stack MONO # 0.6 103/ul Normal 0.3-0.8 [facility] Comment on above: Performed By: #### C BC #### [facility] [address] [address] [address] Emilie Stack Monocytes/100 WBC (Bld) 4.3 % Normal 1.7-12.0 [facility] Comment on above: Performed By: #### C BC #### [facility] [address] [address] [address] Emilie Stack NEUT # 12.5 103/ul Critically high 1.4-6.5 [facility] Comment on above: Performed By: #### C BC #### [facility] [address] [address] [address] Emilie Stack Neutrophils/100 WBC (Bld) 91.4 % Critically high 43.0-75.0 [facility] Comment on above: Performed By: #### C BC #### [facility] [address] [place] [address] Dr. Emilie Stack Platelet mean volume (Bld) [Entitic vol] 8.5 fL Critically low 9.5-13.5 [facility] Comment on above: Performed By: #### C BC #### [facility] [address] [place] [address] Dr. Emilie Stack PLT 323 103/ul Normal 150-450 [facility] Comment on above: Performed By: #### C BC #### [facility] [address] [place] [address] Dr. Emilie Stack RBC 4.94 106/ul Normal 4.70-6.10 [facility] Comment on above: Performed By: #### C BC #### [facility] [address] [place] [address] Dr. Emilie Stack WBC 13.6 103/ul Critically high 4.0-11.0 [facility] Comment on above: Performed By: #### C BC #### [facility] [address] [place] [address] Dr. Emilie Stack PROF 14(COMP METB)on 023 Albumin [Mass/Vol] 3.6 g/dL Normal 3.4-5.0 [facility] Comment on above: Performed By: #### T ROSSY, CMP, BNP #### [facility] [address] [address] [address] Emilie Stack Albumin/Globulin [Mass ratio] 1.1 {ratio} Normal [facility] Comment on above: Performed By: #### T ROSSY, CMP, BNP #### [facility] [address] [address] [address] Emilie Stack ALP [Catalytic activity/Vol] 98 U/L Normal 46-116 [facility] Comment on above: Performed By: #### T ROSSY, CMP, BNP #### [facility] [address] [place] [address] Dr. Emilie Stack ALT [Catalytic activity/Vol] 27 U/L Normal 16-63 [facility] Comment on above: Performed By: #### T ROSSY, CMP, BNP #### [facility] [address] [place] [address] Dr. Emilie Stack Anion gap [Moles/Vol] 15.8 mmol/L Normal [facility] Comment on above: Performed By: #### T ROSSY, CMP, BNP #### [facility] [address] [place] [address] Dr. Emilie Stack AST [Catalytic activity/Vol] 27 U/L Normal 15-37 [facility] Comment on above: Performed By: #### T ROSSY, CMP, BNP #### [facility] [address] [place] [address] Dr. Emilie Stack Bilirubin [Mass/Vol] 0.3 mg/dL Normal 0.2-1.0 [facility] Comment on above: Performed By: #### T ROSSY, CMP, BNP #### [facility] [address] [place] [address] Dr. Emilie Stack Calcium [Mass/Vol] 8.7 mg/dL Normal 8.5-10.1 [facility] Comment on above: Performed By: #### T ROSSY, CMP, BNP #### [facility] [address] [place] [address] Dr. Emilie Stack Chloride [Moles/Vol] 102 mmol/L Normal 98-107 [facility] Comment on above: Performed By: #### Patience BLAIR CMP, BNP #### [facility] [address] [address] [address] Emilie Stack CO2 [Moles/Vol] 23.0 mmol/L Normal 21.0-32.0 [facility] Comment on above: Performed By: #### Patience BLAIR CMP, BNP #### [facility] [address] [address] [address] Emilie Stack Creatinine [Mass/Vol] 1.27 mg/dL Normal 0.70-1.30 [facility] Comment on above: Performed By: #### Patience BLAIR CMP, BNP #### [facility] [address] [place] [address] Dr. Emilie Stack EGFR-AF CITIZ[place] >60 Normal >=60 [facility] Comment on above: Performed By: #### Patience BLAIR CMP, BNP #### [facility] [address] [place] [address] Dr. Emilie Stack EGFR-NON AF CITIZEN OF [place] 56 mL/min/1.73m2 Critically low >=60 [facility] Comment on above: Performed By: #### Patience BLAIR CMP, BNP #### [facility] [address] [place] [address] Dr. Emilie Stack Globulin (S) [Mass/Vol] 3.3 g/dL Normal [facility] Comment on above: Performed By: #### Patience BLAIR CMP, BNP #### [facility] [address] [place] [address] Dr. Emilie Stack Glucose [Mass/Vol] 146 mg/dL Critically high 74-106 [facility] Comment on above: Performed By: #### Patience BLAIR CMP, BNP #### [facility] [address] [place] [address] Dr. Emilie Stack Potassium [Moles/Vol] 3.8 mmol/L Normal 3.5-5.1 [facility] Comment on above: Performed By: #### T ROSSY, CMP, BNP #### [facility] [address] [place] [address] Dr. Emilie Stack Protein [Mass/Vol] 6.9 g/dL Normal 6.4-8.2 [facility] Comment on above: Performed By: #### T ROSSY, CMP, BNP #### [facility] [address] [place] [address] Dr. Emilie Stack Sodium [Moles/Vol] 137 mmol/L Normal 136-145 [facility] Comment on above: Performed By: #### T ROSSY, CMP, BNP #### [facility] [address] [place] [address] Dr. Emilie Stack Urea nitrogen [Mass/Vol] 22.0 mg/dL Critically high 7.0-18.0 [facility] Comment on above: Performed By: #### T ROSSY CMP, BNP #### [facility] [address] [place] [address] Dr. Emilie Stack Urea nitrogen/Creatinine [Mass ratio] 17.3 mg/mg Normal [facility] Comment on above: Performed By: #### T ROSSY CMP, BNP #### [facility] [address] [place] [address] Dr. Emilie Stack THEOPHYLLINEon 08-14-2022 THEOPHYLLINE 10.3 ug/mL Normal 10.0-20.0 [facility] Comment on above: Performed By: #### T ROSSY CMP, BNP #### [facility] [address] [place] [address] Dr. Emilie Stack BNPon 08-13-2022 Natriuretic peptide B (Bld) [Mass/Vol] 82.0 pg/mL Normal <=900.0 [facility] Comment on above: Performed By: #### C MP, BNP, YESI #### [facility] [address] [place] [address] Dr. Emilie Stack CBC AUTO DIFFon 08-13-2022 BASO # 0.0 103/ul Normal 0.0-0.1 [facility] Comment on above: Performed By: #### C MP, BNP, YESI #### [facility] [address] [place] [address] Dr. Emilie Stack Basophils/100 WBC (Bld) 0.1 % Critically low 0.2-2.0 [facility] Comment on above: Performed By: #### C MP, BNP, YESI #### [facility] [address] [place] [address] Dr. Emilie Stack EO # 0.0 103/ul Normal 0.0-0.7 [facility] Comment on above: Performed By: #### C MP, BNP, YESI #### [facility] [address] [place] [address] Dr. Emilie Stack Eosinophils/100 WBC (Bld) 0.0 % Critically low 0.9-7.0 [facility] Comment on above: Performed By: #### C MP, BNP, YESI #### [facility] [address] [place] [address] Dr. Emilie Stack Erythrocyte distribution width (RBC) [Ratio] 14.7 % Normal 11.0-15.0 [facility] Comment on above: Performed By: #### C MP, BNP, YESI #### [facility] [address] [place] [address] Dr. Emilie Stcak Hematocrit (Bld) [Volume fraction] 40.7 % Critically low 42.0-54.0 [facility] Comment on above: Performed By: #### C MP, BNP, YESI #### [facility] [address] [place] [address] Dr. Emilie Stack Hemoglobin (Bld) [Mass/Vol] 13.3 g/dL Critically low 14.0-18.0 [facility] Comment on above: Performed By: #### C MP, BNP, YESI #### [facility] [address] [place] [address] Dr. Emilie Stack IG # 0.14 10e3/ul Critically high 0.00-0.03 [facility] Comment on above: Performed By: #### C MP, BNP, YESI #### [facility] [address] [place] [address] Dr. Emilie Stack IG % 0.8 % Critically high 0.0-0.5 [facility] Comment on above: Performed By: #### C MP, BNP, YESI #### [facility] [address] [place] [address] Dr. Emilie Stack LYMPH # 0.8 103/ul Critically low 1.2-3.8 [facility] Comment on above: Performed By: #### C MP, BNP, YESI #### [facility] [address] [place] [address] Dr. Emilie Stack Lymphocytes/100 WBC (Bld) 4.5 % Critically low 20.5-60.0 [facility] Comment on above: Performed By: #### C MP, BNP, YESI #### [facility] [address] [place] [address] Dr. Emilie Stack MANUAL DIFF REQ NO Normal [facility] Comment on above: Performed By: #### C MP, BNP, YESI #### [facility] [address] [place] [address] Dr. Emilie Stack MCH (RBC) [Entitic mass] 29.7 pg Normal 25.9-34.0 [facility] Comment on above: Performed By: #### C MP, BNP, YESI #### [facility] [address] [place] [address] Dr. Emilie Stack MCHC (RBC) [Mass/Vol] 32.7 g/dL Normal 29.9-35.2 [facility] Comment on above: Performed By: #### C MP, BNP, YESI #### [facility] [address] [place] [address] Dr. Emilie Stack MCV (RBC) [Entitic vol] 90.8 fL Normal 80.0-94.0 [facility] Comment on above: Performed By: #### C MP, BNP, YESI #### [facility] [address] [place] [address] Dr. Emilie Stack MONO # 0.6 103/ul Normal 0.3-0.8 [facility] Comment on above: Performed By: #### C MP, BNP, YESI #### [facility] [address] [address] [address] Emilie Stack Monocytes/100 WBC (Bld) 3.3 % Normal 1.7-12.0 [facility] Comment on above: Performed By: #### C MP, BNP, YESI #### [facility] [address] [place] [address] Dr. Emilie Stack NEUT # 15.9 103/ul Critically high 1.4-6.5 [facility] Comment on above: Performed By: #### C MP, BNP, YESI #### [facility] [address] [place] [address] Dr. Emilie Stack Neutrophils/100 WBC (Bld) 91.3 % Critically high 43.0-75.0 [facility] Comment on above: Performed By: #### C MP, BNP, YESI #### [facility] [address] [address] [address] Emilie Stack Platelet mean volume (Bld) [Entitic vol] 8.9 fL Critically low 9.5-13.5 [facility] Comment on above: Performed By: #### C MP, BNP, YESI #### [facility] [address] [place] [address] Dr. Emilie Stack PLT 303 103/ul Normal 150-450 [facility] Comment on above: Performed By: #### C MP, BNP, YESI #### [facility] [address] [place] [address] Dr. Emilie Stack RBC 4.48 106/ul Critically low 4.70-6.10 [facility] Comment on above: Performed By: #### C MP, BNP, YESI #### [facility] [address] [place] [address] Dr. Emilie Stack WBC 17.4 103/ul Critically high 4.0-11.0 [facility] Comment on above: Performed By: #### C MP, BNP, YESI #### [facility] [address] [place] [address] Dr. Emilie Stack PROF 14(COMP METB)on 023 Albumin [Mass/Vol] 3.2 g/dL Critically low 3.4-5.0 [facility] Comment on above: Performed By: #### C MP, BNP, YESI #### [facility] [address] [address] [address] Emilie Stack Albumin/Globulin [Mass ratio] 1.0 {ratio} Normal [facility] Comment on above: Performed By: #### C MP, BNP, YESI #### [facility] [address] [address] [address] Emilie Stack ALP [Catalytic activity/Vol] 100 U/L Normal 46-116 [facility] Comment on above: Performed By: #### C MP, BNP, YESI #### [facility] [address] [place] [address] Dr. Emilie Stack ALT [Catalytic activity/Vol] 22 U/L Normal 16-63 [facility] Comment on above: Performed By: #### C MP, BNP, YESI #### [facility] [address] [place] [address] Dr. Emilie Stack Anion gap [Moles/Vol] 13.4 mmol/L Normal [facility] Comment on above: Performed By: #### C MP, BNP, YESI #### [facility] [address] [place] [address] Dr. Emilie Stack AST [Catalytic activity/Vol] 13 U/L Critically low 15-37 [facility] Comment on above: Performed By: #### C MP, BNP, YESI #### [facility] [address] [place] [address] Dr. Emilie Stack Bilirubin [Mass/Vol] 0.3 mg/dL Normal 0.2-1.0 [facility] Comment on above: Performed By: #### C MP, BNP, YESI #### [facility] [address] [place] [address] Dr. Emilie Stack Calcium [Mass/Vol] 8.6 mg/dL Normal 8.5-10.1 [facility] Comment on above: Performed By: #### C MP, BNP, YESI #### [facility] [address] [address] [address] Emilie Stack Chloride [Moles/Vol] 102 mmol/L Normal 98-107 [facility] Comment on above: Performed By: #### C MP, BNP, YESI #### [facility] [address] [address] [address] Emilie Stack CO2 [Moles/Vol] 26.7 mmol/L Normal 21.0-32.0 [facility] Comment on above: Performed By: #### C MP, BNP, YESI #### [facility] [address] [address] [address] Emilie Stack Creatinine [Mass/Vol] 1.23 mg/dL Normal 0.70-1.30 [facility] Comment on above: Performed By: #### C MP, BNP, YESI #### [facility] [address] [address] [address] Emilie Stack EGFR-AF [place]IZ[place] >60 Normal >=60 [facility] Comment on above: Performed By: #### C MP, BNP, YESI #### [facility] [address] [address] [address] Emilie Stack EGFR-NON AF [place]IZ[place] 58 mL/min/1.73m2 Critically low >=60 [facility] Comment on above: Performed By: #### C MP, BNP, YESI #### [facility] [address] [address] [address] Emilie Stack Globulin (S) [Mass/Vol] 3.1 g/dL Normal [facility] Comment on above: Performed By: #### C MP, BNP, YESI #### [facility] [address] [address] [address] Emilie Stack Glucose [Mass/Vol] 138 mg/dL Critically high 74-106 [facility] Comment on above: Performed By: #### C MP, BNP, YESI #### [facility] [address] [address] [address] Emilie Stack Potassium [Moles/Vol] 4.1 mmol/L Normal 3.5-5.1 [facility] Comment on above: Performed By: #### C MP, BNP, YESI #### [facility] [address] [place] [address] Dr. Emilie Stack Protein [Mass/Vol] 6.3 g/dL Critically low 6.4-8.2 Th e [facility] Comment on above: Performed By: #### C MP, BNP, YESI #### [facility] [address] [place] [address] Dr. Emilie Stack Sodium [Moles/Vol] 138 mmol/L Normal 136-145 [facility] Comment on above: Performed By: #### C MP BNP, YESI #### [facility] [address] [place] [address] Dr. Emilie Stack Urea nitrogen [Mass/Vol] 21.0 mg/dL Critically high 7.0-18.0 [facility] Comment on above: Performed By: #### C MP BNP, YESI #### [facility] [address] [place] [address] Dr. Emilie Stack Urea nitrogen/Creatinine [Mass ratio] 17.1 mg/mg Normal [facility] Comment on above: Performed By: #### C MP, BNP, YESI #### [facility] [address] [place] [address] Dr. Emilie Stack THEOPHYLLINEon 08-13-2022 THEOPHYLLINE 11.5 ug/mL Normal 10.0-20.0 [facility] Comment on above: Performed By: #### C MP, BNP, YESI #### [facility] [address] [place] [address] Dr. Emilie Stack BNPon 08-12-2022 Natriuretic peptide B (Bld) [Mass/Vol] 49.0 pg/mL Normal <=900.0 [facility] Comment on above: Performed By: #### C MP, BNP, YESI #### [facility] [address] [place] [address] Dr. Emilie Stack CBC W MANUAL DIFFon 08-12-19 23 ATYPICAL LYMPH # 0.08 103/ul Normal [facility] Comment on above: Performed By: #### T ROSSY, CMP, BNP #### [facility] [address] [address] [address] Emilie Stack ATYPICAL LYMPH % 1 % Normal [facility] Comment on above: Performed By: #### T ROSSY, CMP, BNP #### [facility] [address] [address] [address] Emilie Stack BAND # 0.0 103/ul Normal 0.0-0.3 [facility] Comment on above: Performed By: #### T ROSSY, CMP, BNP #### [facility] [address] [address] [address] Emilie Stack BAND % 0 % Normal 0-5 [facility] Comment on above: Performed By: #### T ROSSY, CMP, BNP #### [facility] [address] [place] [address] Dr. Emilie Stack BASOM # 0.00 103/ul Normal 0.00-0.10 [facility] Comment on above: Performed By: #### T ROSSY, CMP, BNP #### [facility] [address] [place] [address] Dr. Emilie Stack BASOM % 0.0 % Critically low 0.2-2.0 [facility] Comment on above: Performed By: #### T ROSSY, CMP, BNP #### [facility] [address] [place] [address] Dr. Emilie Stack BLAST # Normal [facility] Comment on above: Performed By: #### T ROSSY, CMP, BNP #### [facility] [address] [place] [address] Dr. Emilie Stack BLAST % Normal [facility] Comment on above: Performed By: #### T ROSSY, CMP, BNP #### [facility] [address] [place] [address] Dr. Emilie Stack CORRECTED WBC Normal 4.0-11.0 [facility] Comment on above: Performed By: #### T ROSSY, CMP, BNP #### [facility] [address] [place] [address] Dr. Emilie Stack EOS # 0.00 103/ul Normal 0.00-0.70 [facility] Comment on above: Performed By: #### T ROSSY CMP, BNP #### [facility] [address] [address] [address] Emilie Stack EOS% 0.0 % Critically low 0.9-7.0 [facility] Comment on above: Performed By: #### T ROSSY CMP, BNP #### [facility] [address] [address] [address] Emilie Stack HCT 41.1 % Critically low 42.0-54.0 [facility] Comment on above: Performed By: #### Patience BLAIR CMP, BNP #### [facility] [address] [address] [address] Emilie Stack HGB 13.5 g/dl Critically low 14.0-18.0 [facility] Comment on above: Performed By: #### Patience BLAIR CMP, BNP #### [facility] [address] [place] [address] Dr. Emilie Stack LYMPHM # 0.08 103/ul Critically low 1.20-3.80 [facility] Comment on above: Performed By: #### Patience BLAIR CMP, BNP #### [facility] [address] [place] [address] Dr. Emilie Stack LYMPHM% 1.0 % Critically low 20.5-60.0 [facility] Comment on above: Performed By: #### T ROSSY CMP, BNP #### [facility] [address] [place] [address] Dr. Emilie Stack MCH 30.2 pg Normal 25.9-34.0 [facility] Comment on above: Performed By: #### T ROSSY CMP, BNP #### [facility] [address] [place] [address] Dr. Emilie Stack MCHC 32.8 g/dl Normal 29.9-35.2 [facility] Comment on above: Performed By: #### T ROSSY CMP, BNP #### [facility] [address] [address] [address] Emilie Stack MCV 91.9 fL Normal 80.0-94.0 [facility] Comment on above: Performed By: #### T ROSSY, CMP, BNP #### [facility] [address] [place] [address] Dr. Emilie Stack METAMYELOCYTE # Normal [facility] Comment on above: Performed By: #### T ROSSY, CMP, BNP #### [facility] [address] [address] [address] Emilie Stack METAMYELOCYTE % Normal [facility] Comment on above: Performed By: #### T ROSSY, CMP, BNP #### [facility] [address] [place] [address] Dr. Emilie Stack MONOM# 0.00 103/ul Critically low 0.30-0.80 [facility] Comment on above: Performed By: #### T ROSSY CMP, BNP #### [facility] [address] [place] [address] Dr. Emilie Stack MONOM% 0.0 % Critically low 1.7-12.0 [facility] Comment on above: Performed By: #### T ROSSY CMP, BNP #### [facility] [address] [place] [address] Dr. Emilie Stack MPV 8.9 fL Critically low 9.5-13.5 [facility] Comment on above: Performed By: #### T ROSSY, CMP, BNP #### [facility] [address] [place] [address] Dr. Emilie Stack MYELOCYTE # Normal [facility] Comment on above: Performed By: #### T ROSSY, CMP, BNP #### [facility] [address] [place] [address] Dr. Emilie Stack MYELOCYTE % Normal [facility] Comment on above: Performed By: #### T ROSSY, CMP, BNP #### [facility] [address] [place] [address] Dr. Emilie Stack NRBC Normal [facility] Comment on above: Performed By: #### T ROSSY, CMP, BNP #### [facility] [address] [place], [place] [address] Dr. Emilie Stack PLT 263 103/ul Normal 150-450 [facility] Comment on above: Performed By: #### T ROSSY, CMP, BNP #### [facility] [address] [place], [place] [address] Dr. Emilie Stack RBC 4.47 106/ul Critically low 4.70-6.10 [facility] Comment on above: Performed By: #### T ROSSY, CMP, BNP #### [facility] [address] [address] [address] Emilie Stack RDW 14.4 % Normal 11.0-15.0 [facility] Comment on above: Performed By: #### T ROSSY, CMP, BNP #### [facility] [address] [address] [address] Emilie Stack SEG # 7.64 103/ul Critically high 1.40-6.50 [facility] Comment on above: Performed By: #### T ROSSY, CMP, BNP #### [facility] [address] [address] [address] Emilie Stack SEG % 98.0 % Critically high 43.0-75.0 [facility] Comment on above: Performed By: #### T ROSSY, CMP, BNP #### [facility] [address] [id number] Emilie Stack WBC 7.8 103/ul Normal 4.0-11.0 [facility] Comment on above: Performed By: #### T ROSSY, CMP, BNP #### [facility] [address] [place], [place] [address] Dr. Emilie Stack CULTURE SPUTUMon 08-12-2022 CULTURE SPUTUM Culture Observations : NORMAL RESPIRATORY TANO. Normal [facility] Comment on above: Performed By: #### T ROSSY, CMP, BNP #### [facility] [address] [address] [address] Emilie Stack PROF 14(COMP METB)on 023 Albumin [Mass/Vol] 3.1 g/dL Critically low 3.4-5.0 [facility] Comment on above: Performed By: #### C MP, BNP, YESI #### [facility] [address] [place] [address] Dr. Emilie Stack Albumin/Globulin [Mass ratio] 1.0 {ratio} Normal [facility] Comment on above: Performed By: #### C MP, BNP, YESI #### [facility] [address] [place] [address] Dr. Emilie Stack ALP [Catalytic activity/Vol] 106 U/L Normal 46-116 [facility] Comment on above: Performed By: #### C MP, BNP, YESI #### [facility] [address] [place] [address] Dr. Emilie Stack ALT [Catalytic activity/Vol] 23 U/L Normal 16-63 [facility] Comment on above: Performed By: #### C MP, BNP, YESI #### [facility] [address] [place] [address] Dr. Emilie Stack Anion gap [Moles/Vol] 11.5 mmol/L Normal [facility] Comment on above: Performed By: #### C MP, BNP, YESI #### [facility] [address] [place] [address] Dr. Emilie Stack AST [Catalytic activity/Vol] 11 U/L Critically low 15-37 [facility] Comment on above: Performed By: #### C MP, BNP, YESI #### [facility] [address] [place] [address] Dr. Emilie Stack Bilirubin [Mass/Vol] 0.2 mg/dL Normal 0.2-1.0 [facility] Comment on above: Performed By: #### C MP, BNP, YESI #### [facility] [address] [place] [address] Dr. Emilie Stack Calcium [Mass/Vol] 8.6 mg/dL Normal 8.5-10.1 [facility] Comment on above: Performed By: #### C MP, BNP, YESI #### [facility] [address] [place] [address] Dr. Emilie Stack Chloride [Moles/Vol] 102 mmol/L Normal 98-107 [facility] Comment on above: Performed By: #### C MP, BNP, YESI #### [facility] [address] [place] [address] Dr. Emilie Stack CO2 [Moles/Vol] 27.3 mmol/L Normal 21.0-32.0 [facility] Comment on above: Performed By: #### C MP, BNP, YESI #### [facility] [address] [place] [address] Dr. Emilie Stack Creatinine [Mass/Vol] 1.04 mg/dL Normal 0.70-1.30 [facility] Comment on above: Performed By: #### C MP, BNP, YESI #### [facility] [address] [place] [address] Dr. Emilie Stack EGFR-AF [place]IZ[place] >60 Normal >=60 [facility] Comment on above: Performed By: #### C MP, BNP, YESI #### [facility] [address] [place] [address] Dr. Emilie Stack EGFR-NON AF CITIZ[place] >60 Normal >=60 [facility] Comment on above: Performed By: #### C MP, BNP, YESI #### [facility] [address] [place] [address] Dr. Emilie Stack Globulin (S) [Mass/Vol] 3.0 g/dL [facility] Comment on above: Performed By: #### C MP, BNP, YESI #### [facility] [address] [place] [address] Dr. Emilie Stack Glucose [Mass/Vol] 207 mg/dL Critically high 74-106 [facility] Comment on above: Performed By: #### C MP, BNP, YESI #### [facility] [address] [place] [address] Dr. Emilie Stack Potassium [Moles/Vol] 3.8 mmol/L Normal 3.5-5.1 [facility] Comment on above: Performed By: #### C MP, BNP, YESI #### [facility] [address] [address] [address] Emilie Stack Protein [Mass/Vol] 6.1 g/dL Critically low 6.4-8.2 Th e [facility] Comment on above: Performed By: #### C MP, BNP, YESI #### [facility] [address] [address] [address] Emilie Stack Sodium [Moles/Vol] 137 mmol/L Normal 136-145 [facility] Comment on above: Performed By: #### C MP, BNP, YESI #### [facility] [address] [address] [address] Emilie Stack Urea nitrogen [Mass/Vol] 12.0 mg/dL Normal 7.0-18.0 [facility] Comment on above: Performed By: #### C MP, BNP, YESI #### [facility] [address] [address] [address] Emilie Stack Urea nitrogen/Creatinine [Mass ratio] 11.5 mg/mg Normal [facility] Comment on above: Performed By: #### C MP, BNP, YESI #### [facility] [address] [address] [address] Emilie Stack SPUTUM GRAM STAINon 08-12-19 COMMENTS Normal [facility] Comment on above: Performed By: #### C MP, BNP, YESI #### [facility] [address] [address] [address] Emilie Stack DIPHTHEROIDS Normal [facility] Comment on above: Performed By: #### C MP, BNP, YESI #### [facility] [address] [place] [address] Dr. Emilie Stack EPITHELIALS <25 Normal [facility] Comment on above: Performed By: #### C MP, BNP, YESI #### [facility] [address] [place] [address] Dr. Emilie Stack FUNGAL ELEMENTS Normal [facility] Comment on above: Performed By: #### C MP, BNP, YESI #### [facility] [address] [address] [address] Emilie Stack GRAM NEG BACILLI Normal [facility] Comment on above: Performed By: #### C MP, BNP, YESI #### [facility] [address] [address] [address] Emilie Stack GRAM NEG DIPPLOCOCCI Normal [facility] Comment on above: Performed By: #### C MP, BNP, YESI #### [facility] [address] [address] [address] Emilie JARAMILLO POS BACILLI RARE Normal [facility] Comment on above: Performed By: #### C MP, BNP, EYSI #### [facility] [address] [address] [address] Emilie Stack GRAM POSITIVE COCCI MODERATE Normal [facility] Comment on above: Performed By: #### C MP, BNP, YESI #### [facility] [address] [place] [address] Dr. Emilie Stack WBC (Bld) [#/Vol] 10*3/uL Normal [facility] Comment on above: Performed By: #### C MP, BNP, YESI #### [facility] [address] [place] [address] Dr. Emilie Stack T3, TOTAL (TRIIODOTHYRONINE) on 08-12-2022 T3, TOTAL 92 ng/dL Normal 71-180 [facility] Comment on above: Performed By: #### T ROSSY, CMP, BNP #### [facility] [address] [place] [address] Dr. Emilie Stack THEOPHYLLINEon 08-12-2022 THEOPHYLLINE 10.3 ug/mL Normal 10.0-20.0 [facility] Comment on above: Performed By: #### C MP, BNP, YESI #### [facility] [address] [place] [address] Dr. Emilie Stack BNPon 08-11-2022 Natriuretic peptide B (Bld) [Mass/Vol] 79.0 pg/mL Normal <=900.0 [facility] Comment on above: Performed By: #### C MP, BNP, YESI #### [facility] [address] [place] [address] Dr. Emilie Stack CARDIAC GATITO 3-6on 3 CK [Catalytic activity/Vol] 66 U/L Normal 39-308 [facility] Comment on above: Performed By: #### T ROSSY, CMP, BNP #### [facility] [address] [place] [address] Dr. Emilie Stack CK.MB [Mass/Vol] 1.24 ng/mL Normal <=3.60 [facility] Comment on above: Performed By: #### T ROSSY, CMP, BNP #### [facility] [address] [place] [address] Dr. Emilie Stack HSTROP 5.7 pg/mL Normal 4.0-76.1 [facility] Comment on above: Result Comment: CUT- OFF POINTS HAVE BEEN ESTABLISHED BASED ON THE FOURTH UNIVERSAL DEFINITIONS OF MYOCARDIAL INFARCTION. THE UPPER REFERENCE LIMIT (URL) OF TROPONIN, DEFINED THE 99TH PERCENTILE OF cTnI DISTRIBUTION IN A REFERENCE POPULATION, HAS BEEN CONFIRMED THE DECISION THRESHOLD FOR [place] DIAGNOSIS. Performed By: #### T ROSSY, CMP, BNP #### [facility] [address] [place] [address] Dr. Emilie Stack CBC AUTO DIFFon 08-11-2022 BASO # 0.0 103/ul Normal 0.0-0.1 [facility] Comment on above: Performed By: #### C MP, BNP, YESI #### [facility] [address] [place] [address] Dr. Emilie Stack Basophils/100 WBC (Bld) 0.6 % Normal 0.2-2.0 [facility] Comment on above: Performed By: #### C MP, BNP, YESI #### [facility] [address] [place] [address] Dr. Emilie Stack EO # 0.1 103/ul Normal 0.0-0.7 [facility] Comment on above: Performed By: #### C MP, BNP, YESI #### [facility] [address] [place] [address] Dr. Emilie Stack Eosinophils/100 WBC (Bld) 1.4 % Normal 0.9-7.0 [facility] Comment on above: Performed By: #### C MP, BNP, YESI #### [facility] [address] [place] [address] Dr. Emilie Satck Erythrocyte distribution width (RBC) [Ratio] 14.8 % Normal 11.0-15.0 [facility] Comment on above: Performed By: #### C MP, BNP, YESI #### [facility] [address] [place] [address] Dr. Emilie Stack Hematocrit (Bld) [Volume fraction] 43.5 % Normal 42.0-54.0 [facility] Comment on above: Performed By: #### C MP, BNP, YEIS #### [facility] [address] [place] [address] Dr. Emilie Stack Hemoglobin (Bld) [Mass/Vol] 14.2 g/dL Normal 14.0-18.0 [facility] Comment on above: Performed By: #### C MP, BNP, YESI #### [facility] [address] [place] [address] Dr. Emilie Stack IG # 0.06 10e3/ul Critically high 0.00-0.03 [facility] Comment on above: Performed By: #### C MP, BNP, YESI #### [facility] [address] [place] [address] Dr. Emilie Stack IG % 0.8 % Critically high 0.0-0.5 [facility] Comment on above: Performed By: #### C MP, BNP, YESI #### [facility] [address] [place] [address] Dr. Emilie Stack LYMPH # 1.2 103/ul Normal 1.2-3.8 [facility] Comment on above: Performed By: #### C MP, BNP, YESI #### [facility] [address] [place] [address] Dr. Emilie Stack Lymphocytes/100 WBC (Bld) 16.8 % Critically low 20.5-60.0 [facility] Comment on above: Performed By: #### C MP, BNP, YESI #### [facility] [address] [address] [address] Emilie Stack MANUAL DIFF REQ NO Normal [facility] Comment on above: Performed By: #### C MP, BNP, YESI #### [facility] [address] [place] [address] Dr. Emilie Stack MCH (RBC) [Entitic mass] 30.1 pg Normal 25.9-34.0 [facility] Comment on above: Performed By: #### C MP, BNP, YESI #### [facility] [address] [place] [address] Dr. Emilie Stack MCHC (RBC) [Mass/Vol] 32.6 g/dL Normal 29.9-35.2 [facility] Comment on above: Performed By: #### C MP, BNP, YESI #### [facility] [address] [place] [address] Dr. Emilie Stack MCV (RBC) [Entitic vol] 92.2 fL Normal 80.0-94.0 [facility] Comment on above: Performed By: #### C MP, BNP, YESI #### [facility] [address] [place] [address] Dr. Emilie Satck MONO # 1.0 103/ul Critically high 0.3-0.8 [facility] Comment on above: Performed By: #### C MP, BNP, YESI #### [facility] [address] [place] [address] Dr. Emilie Stack Monocytes/100 WBC (Bld) 14.2 % Critically high 1.7-12.0 [facility] Comment on above: Performed By: #### C MP, BNP, YESI #### [facility] [address] [place] [address] Dr. Emilie Stack NEUT # 4.8 103/ul Normal 1.4-6.5 [facility] Comment on above: Performed By: #### C MP, BNP, YESI #### [facility] [address] [place] [address] Dr. Emilie Stack Neutrophils/100 WBC (Bld) 66.2 % Normal 43.0-75.0 [facility] Comment on above: Performed By: #### C MP, BNP, YESI #### [facility] [address] [place] [address] Dr. Emilie Stack Platelet mean volume (Bld) [Entitic vol] 8.4 fL Critically low 9.5-13.5 [facility] Comment on above: Performed By: #### C MP, BNP, YESI #### [facility] [address] [place] [address] Dr. Emilie Stack PLT 277 103/ul Normal 150-450 [facility] Comment on above: Performed By: #### C MP, BNP, YESI #### [facility] [address] [place] [address] Dr. Emilie Stack RBC 4.72 106/ul Normal 4.70-6.10 [facility] Comment on above: Performed By: #### C MP, BNP, YESI #### [facility] [address] [place] [address] Dr. Emilie Stack WBC 7.3 103/ul Normal 4.0-11.0 [facility] Comment on above: Performed By: #### C MP, BNP, YESI #### [facility] [address] [place] [address] Dr. Emilie Stack CULTURE URINEon 08-11-2022 CULTURE URINE Culture Observations : NO GROWTH. Normal [facility] Comment on above: Performed By: #### T ROSSY, CMP, BNP #### [facility] [address] [place] [address] Dr. Emilie Stack PROF 14(COMP METB)on 023 Albumin [Mass/Vol] 3.2 g/dL Critically low 3.4-5.0 [facility] Comment on above: Performed By: #### C MP, BNP, YESI #### [facility] [address] [place] [address] Dr. Emilie Stack Albumin/Globulin [Mass ratio] 1.0 {ratio} Normal [facility] Comment on above: Performed By: #### C MP, BNP, YESI #### [facility] [address] [address] [address] Emilie Stack ALP [Catalytic activity/Vol] 117 U/L Critically high 46-116 [facility] Comment on above: Performed By: #### C MP, BNP, YESI #### [facility] [address] [address] [address] Emilie Stack ALT [Catalytic activity/Vol] 24 U/L Normal 16-63 [facility] Comment on above: Performed By: #### C MP, BNP, YESI #### [facility] [address] [address] [address] Emilie Stack Anion gap [Moles/Vol] 8.8 mmol/L Normal [facility] Comment on above: Performed By: #### C MP, BNP, YESI #### [facility] [address] [place] [address] Dr. Emilie Stack AST [Catalytic activity/Vol] 13 U/L Critically low 15-37 [facility] Comment on above: Performed By: #### C MP, BNP, YESI #### [facility] [address] [address] [address] Emilie Stack Bilirubin [Mass/Vol] 0.3 mg/dL Normal 0.2-1.0 [facility] Comment on above: Performed By: #### C MP, BNP, YESI #### [facility] [address] [place] [address] Dr. Emilie Stack Calcium [Mass/Vol] 8.3 mg/dL Critically low 8.5-10.1 [facility] Comment on above: Performed By: #### C MP, BNP, YESI #### [facility] [address] [address] [address] Emilie Stack Chloride [Moles/Vol] 104 mmol/L Normal 98-107 [facility] Comment on above: Performed By: #### C MP, BNP, YESI #### [facility] [address] [address] [address] Emilie Stack CO2 [Moles/Vol] 30.7 mmol/L Normal 21.0-32.0 [facility] Comment on above: Performed By: #### C MP, BNP, YESI #### [facility] [address] [address] [address] Emilie Stack Creatinine [Mass/Vol] 1.08 mg/dL Normal 0.70-1.30 [facility] Comment on above: Performed By: #### C MP, BNP, YESI #### [facility] [address] [place] [address] Dr. Emilie Stack EGFR-AF CITIZ[place] >60 Normal >=60 [facility] Comment on above: Performed By: #### C MP, BNP, YESI #### [facility] [address] [place] [address] Dr. Emilie Stack EGFR-NON AF CITIZEN [place] >60 Normal >=60 [facility] Comment on above: Performed By: #### C MP, BNP, YESI #### [facility] [address] [place] [address] Dr. Emilie Stack Globulin (S) [Mass/Vol] 3.1 g/dL Normal [facility] Comment on above: Performed By: #### C MP, BNP, YESI #### [facility] [address] [place] [address] Dr. Emilie Stack Glucose [Mass/Vol] 76 mg/dL Normal 74-106 [facility] Comment on above: Performed By: #### C MP, BNP, YESI #### [facility] [address] [place] [address] Dr. Emilie Stack Potassium [Moles/Vol] 3.5 mmol/L Normal 3.5-5.1 [facility] Comment on above: Performed By: #### C MP, BNP, YESI #### [facility] [address] [place] [address] Dr. Emilie Stack Protein [Mass/Vol] 6.3 g/dL Critically low 6.4-8.2 [facility] Comment on above: Performed By: #### C MP, BNP, YESI #### [facility] [address] [place] [address] Dr. Emilie Stack Sodium [Moles/Vol] 140 mmol/L Normal 136-145 [facility] Comment on above: Performed By: #### C MP, BNP, YESI #### [facility] [address] [place] [address] Dr. Emilie Stack Urea nitrogen [Mass/Vol] 10.0 mg/dL Normal 7.0-18.0 [facility] Comment on above: Performed By: #### C MP, BNP, YESI #### [facility] [address] [place] [address] Dr. Emilie Stack Urea nitrogen/Creatinine [Mass ratio] 9.3 mg/mg Normal [facility] Comment on above: Performed By: #### C MP, BNP, YESI #### [facility] [address] [place] [address] Dr. Emilie Stack THEOPHYLLINEon 08-11-2022 THEOPHYLLINE 7.7 ug/mL Critically low 10.0-20.0 [facility] Comment on above: Performed By: #### C MP, BNP, YESI #### [facility] [address] [place] [address] Dr. Emilie Stack UA RANDOM W/MICROSCOPICon BACTERIA NONE SEEN Normal NONE SEEN [facility] Comment on above: Performed By: #### T ROSSY CMP, BNP #### [facility] [address] [place] [address] Dr. Emilie Stack Bilirubin Ql (U) Negative Normal NEGATIVE [facility] Comment on above: Performed By: #### T ROSSY CMP, BNP #### [facility] [address] [place] [address] Dr. Emilie Stack CAST NONE SEEN Normal NONE SEEN [facility] Comment on above: Performed By: #### T ROSSY CMP, BNP #### [facility] [address] [place] [address] Dr. Emilie Stack Clarity (U) CLEAR Normal CLEAR [facility] Comment on above: Performed By: #### T ROSSY CMP, BNP #### [facility] [address] [place] [address] Dr. Emilie Stack Color (U) LT. YELLOW Normal YELLOW [facility] Comment on above: Performed By: #### T ROSSY, CMP, BNP #### [facility] [address] [address] [address] Emilie Stack Crystals LM Nom (Urine sed) NONE SEEN Normal NONE SEEN [facility] Comment on above: Performed By: #### T ROSSY, CMP, BNP #### [facility] [address] [address] [address] Emilie Stack Epithelial cells LM Ql (Urine sed) NONE SEEN Normal NONE SEEN /RARE [facility] Comment on above: Performed By: #### T ROSSY, CMP, BNP #### [facility] [address] [place] [address] Dr. Emilie Stack Glucose Ql (U) Negative Normal NEGATIVE [facility] Comment on above: Performed By: #### T ROSSY, CMP, BNP #### [facility] [address] [address] [address] Emilie Stack Hemoglobin Ql (U) TRACE-INTACT Abnormal NEGATIVE [facility] Comment on above: Performed By: #### T ROSSY, CMP, BNP #### [facility] [address] [address] [address] Emilie Stack Ketones Ql (U) Negative Normal NEGATIVE [facility] Comment on above: Performed By: #### T ROSSY, CMP, BNP #### [facility] [address] [address] [address] Emilie Stack LEUKOCYTES Negative Normal NEGATIVE [facility] Comment on above: Performed By: #### T ROSSY, CMP, BNP #### [facility] [address] [address] [address] Emilie Stack MUCOUS NONE SEEN Normal NONE SEEN [facility] Comment on above: Performed By: #### T ROSSY, CMP, BNP #### [facility] [address] [address] [address] Emilie Stack Nitrite Ql (U) Negative Normal NEGATIVE [facility] Comment on above: Performed By: #### T ROSSY, CMP, BNP #### [facility] [address] [address] [address] Emilie Stack pH (U) 6.0 [pH] Normal 5-9 [facility] Comment on above: Performed By: #### T ROSSY CMP, BNP #### [facility] [address] [place] [address] Dr. Emilie Stack RBC 2-5 Abnormal 0-2 [facility] Comment on above: Performed By: #### T ROSSY CMP, BNP #### [facility] [address] [address] [address] Emilie Stack SPEC GRAVITY 1.015 Normal 1.005-<=1.025 [facility] Comment on above: Performed By: #### Patience BLAIR CMP, BNP #### [facility] [address] [place] [address] Dr. Emilie Stack UA PROTEIN Negative Normal NEGATIVE/ TRACE [facility] Comment on above: Performed By: #### Patience BLAIR CMP, BNP #### [facility] [address] [place] [address] Dr. Emilie Stack Urobilinogen Qn (U) 0.2 {Jose Guadalupe'U}/dL Normal 0.2 - 1. 0 [facility] Comment on above: Performed By: #### Patience BLAIR CMP, BNP #### [facility] [address] [place] [address] Dr. Emilie Stack WBC 0-2 Abnormal NONE SEEN [facility] Comment on above: Performed By: #### Patience BLAIR CMP, BNP #### [facility] [address] [place] [address] Dr. Emilie Stack BNPon 08-10-2022 Natriuretic peptide B (Bld) [Mass/Vol] 92.0 pg/mL Normal <=900.0 [facility] Comment on above: Performed By: #### T ROSSY CMP, BNP #### [facility] [address] [place] [address] Dr. Emilie Stack CARDIAC GATITO 3-6on 3 CK [Catalytic activity/Vol] 56 U/L Normal 39-308 [facility] Comment on above: Performed By: #### C MP, BNP, YESI #### [facility] [address] [address] [address] Emilie Stack CK.MB [Mass/Vol] 0.95 ng/mL Normal <=3.60 [facility] Comment on above: Performed By: #### C MP, BNP, YESI #### [facility] [address] [address] [address] Emilie Stack HSTROP 5.5 pg/mL Normal 4.0-76.1 [facility] Comment on above: Result Comment: CUT- OFF POINTS HAVE BEEN ESTABLISHED BASED ON THE FOURTH UNIVERSAL DEFINITIONS OF MYOCARDIAL INFARCTION. THE UPPER REFERENCE LIMIT (URL) OF TROPONIN, DEFINED THE 99TH PERCENTILE OF cTnI DISTRIBUTION IN A REFERENCE POPULATION, HAS BEEN CONFIRMED THE DECISION THRESHOLD FOR [place] DIAGNOSIS. Performed By: #### C MP, BNP, YESI #### [facility] [address] [address] [address] Emilie Stack CARDIAC GATITO ADMITon 023 CK [Catalytic activity/Vol] 55 U/L Normal 39-308 [facility] Comment on above: Performed By: #### T ROSSY, CMP, BNP #### [facility] [address] [address] [address] Emilie Stack CK.MB [Mass/Vol] 0.94 ng/mL Normal <=3.60 [facility] Comment on above: Performed By: #### T ROSSY, CMP, BNP #### [facility] [address] [address] [address] Emilie Stack HSTROP 5.0 pg/mL Normal 4.0-76.1 [facility] Comment on above: Result Comment: CUT- OFF POINTS HAVE BEEN ESTABLISHED BASED ON THE FOURTH UNIVERSAL DEFINITIONS OF MYOCARDIAL INFARCTION. THE UPPER REFERENCE LIMIT (URL) OF TROPONIN, DEFINED THE 99TH PERCENTILE OF cTnI DISTRIBUTION IN A REFERENCE POPULATION, HAS BEEN CONFIRMED THE DECISION THRESHOLD FOR [place] DIAGNOSIS. Performed By: #### T ROSSY, CMP, BNP #### [facility] [address] [address] [address] Emilie Stack BELEN 65 ng/mL Normal 16-96 [facility] Comment on above: Performed By: #### T ROSSY, CMP, BNP #### [facility] [address] [place] [address] Dr. Emilie Stack CBC AUTO DIFFon 08-10-2022 BASO # 0.0 103/ul Normal 0.0-0.1 [facility] Comment on above: Performed By: #### C MP, BNP, YESI #### [facility] [address] [place] [address] Dr. Emilie Stack Basophils/100 WBC (Bld) 0.2 % Normal 0.2-2.0 [facility] Comment on above: Performed By: #### C MP, BNP, YESI #### [facility] [address] [place] [address] Dr. Emilie Stack EO # 0.0 103/ul Normal 0.0-0.7 [facility] Comment on above: Performed By: #### C MP, BNP, YESI #### [facility] [address] [place] [address] Dr. Emilie Stack Eosinophils/100 WBC (Bld) 0.0 % Critically low 0.9-7.0 [facility] Comment on above: Performed By: #### C MP, BNP, YESI #### [facility] [address] [place] [address] Dr. Emilie Stack Erythrocyte distribution width (RBC) [Ratio] 14.7 % Normal 11.0-15.0 [facility] Comment on above: Performed By: #### C MP, BNP, YESI #### [facility] [address] [place] [address] Dr. Emilie Stack Hematocrit (Bld) [Volume fraction] 42.7 % Normal 42.0-54.0 [facility] Comment on above: Performed By: #### C MP, BNP, YESI #### [facility] [address] [place] [address] Dr. Emilie Stack Hemoglobin (Bld) [Mass/Vol] 14.4 g/dL Normal 14.0-18.0 [facility] Comment on above: Performed By: #### C MP, BNP, YESI #### [facility] [address] [place] [address] Dr. Emilie Stack IG # 0.08 10e3/ul Critically high 0.00-0.03 [facility] Comment on above: Performed By: #### C MP, BNP, YESI #### [facility] [address] [place] [address] Dr. Emilie Stack IG % 0.9 % Critically high 0.0-0.5 [facility] Comment on above: Performed By: #### C MP, BNP, YESI #### [facility] [address] [place] [address] Dr. Emilie Stack LYMPH # 0.4 103/ul Critically low 1.2-3.8 [facility] Comment on above: Performed By: #### C MP, BNP, YESI #### [facility] [address] [place] [address] Dr. Emilie Stack Lymphocytes/100 WBC (Bld) 4.8 % Critically low 20.5-60.0 [facility] Comment on above: Performed By: #### C MP, BNP, YESI #### [facility] [address] [place] [address] Dr. Emilie Stack MANUAL DIFF REQ NO Normal [facility] Comment on above: Performed By: #### C MP, BNP, YESI #### [facility] [address] [place] [address] Dr. Emilie Stack MCH (RBC) [Entitic mass] 30.6 pg Normal 25.9-34.0 [facility] Comment on above: Performed By: #### C MP, BNP, YESI #### [facility] [address] [place] [address] Dr. Emilie Stack MCHC (RBC) [Mass/Vol] 33.7 g/dL Normal 29.9-35.2 [facility] Comment on above: Performed By: #### C MP, BNP, YESI #### [facility] [address] [place] [address] Dr. Emilie Stack MCV (RBC) [Entitic vol] 90.9 fL Normal 80.0-94.0 [facility] Comment on above: Performed By: #### C MP, BNP, YESI #### [facility] [address] [place] [address] Dr. Emilie Stack MONO # 0.7 103/ul Normal 0.3-0.8 [facility] Comment on above: Performed By: #### C MP, BNP, YESI #### [facility] [address] [place] [address] Dr. Emilie Stack Monocytes/100 WBC (Bld) 7.6 % Normal 1.7-12.0 [facility] Comment on above: Performed By: #### C MP, BNP, YESI #### [facility] [address] [place] [address] Dr. Emilie Stack NEUT # 7.5 103/ul Critically high 1.4-6.5 [facility] Comment on above: Performed By: #### C MP, BNP, YESI #### [facility] [address] [place] [address] Dr. Emilie Stack Neutrophils/100 WBC (Bld) 86.5 % Critically high 43.0-75.0 [facility] Comment on above: Performed By: #### C MP, BNP, YESI #### [facility] [address] [place] [address] Dr. Emilie Stack Platelet mean volume (Bld) [Entitic vol] 8.7 fL Critically low 9.5-13.5 [facility] Comment on above: Performed By: #### C MP, BNP, YESI #### [facility] [address] [place] [address] Dr. Emilie Stack PLT 295 103/ul Normal 150-450 [facility] Comment on above: Performed By: #### C MP, BNP, YESI #### [facility] [address] [place] [address] Dr. Emilie Stack RBC 4.70 106/ul Normal 4.70-6.10 [facility] Comment on above: Performed By: #### C MP, BNP, YESI #### [facility] [address] [address] [address] Emilie Stakc WBC 8.7 103/ul Normal 4.0-11.0 [facility] Comment on above: Performed By: #### C MP BNP, YESI #### [facility] [address] [address] [address] Emilie Stack CTA CHEST WO W [...] MAITE FRAZIER Date: 2022-08-10 20:52 Normal [facility] CULTURE BLOODon 08-10-2022 Microscopic examination of blood, culture Culture Observations: NO GROWTH AT 5 DAYS. Normal [facility] Comment on above: Performed By: #### T JEANETTE BLAIR, BNP #### [facility] [address] [place], [place] [address] Dr. Emilie Stack Microscopic examination of blood, culture Culture Observations: NO GROWTH AT 5 DAYS. Normal [facility] Comment on above: Performed By: #### T ROSSY, CMP, BNP #### [facility] [address] [place] [address] Dr. Emilie Stack [facility]27 SARS-CoV-2 (COVID-19) RNA [place]+probe Ql (Unsp spec) Detected Abnormal NOT DETECTED [facility] Comment on above: Result Comment: This test is not yet approved or cleared by the [place] FDA. When there are no FDA-approved or cleared tests available, and other criteria are met, FDA can make tests available under an emergency access mechanism called an Emergency Use Authorization (EUA). The EUA for this test is supported by the [place] of Health and Human Service's declaration that [...] By: #### Patience BLAIR CMP, BNP #### [facility] [address] [place] [address] Dr. Emilie Stack LACTATE/LACTIC ACIDon 2022 Lactate [Moles/Vol] 2.0 mmol/L Critically high 0.4-1.9 [facility] Comment on above: Performed By: #### Patience BLAIR BNP, CMP #### [facility] [address] [place] [address] Dr. Emilie Stack PROF 14(COMP METB)on 023 Albumin [Mass/Vol] 3.4 g/dL Normal 3.4-5.0 [facility] Comment on above: Performed By: #### T ROSSY CMP, BNP #### [facility] [address] [place] [address] Dr. Emilie Stack Albumin/Globulin [Mass ratio] 1.1 {ratio} Normal [facility] Comment on above: Performed By: #### T ROSSY CMP, BNP #### [facility] [address] [place] [address] Dr. Emilie Stack ALP [Catalytic activity/Vol] 123 U/L Critically high 46-116 [facility] Comment on above: Performed By: #### Patience BLAIR CMP, BNP #### [facility] [address] [place] [address] Dr. Emilie Stack ALT [Catalytic activity/Vol] 27 U/L Normal 16-63 [facility] Comment on above: Performed By: #### Patience BLAIR CMP, BNP #### [facility] [address] [place] [address] Dr. Emilie Stack Anion gap [Moles/Vol] 11.9 mmol/L Normal [facility] Comment on above: Performed By: #### Patience BLAIR CMP, BNP #### [facility] [address] [place] [address] Dr. Emilie Stack AST [Catalytic activity/Vol] 14 U/L Critically low 15-37 [facility] Comment on above: Performed By: #### Patience BLAIR CMP, BNP #### [facility] [address] [place] [address] Dr. Emilie Stack Bilirubin [Mass/Vol] 0.2 mg/dL Normal 0.2-1.0 [facility] Comment on above: Performed By: #### Patience BLAIR CMP, BNP #### [facility] [address] [place] [address] Dr. Emilie Stack Calcium [Mass/Vol] 8.4 mg/dL Critically low 8.5-10.1 [facility] Comment on above: Performed By: #### Patience BLAIR CMP, BNP #### [facility] [address] [place] [address] Dr. Emilie Stack Chloride [Moles/Vol] 105 mmol/L Normal 98-107 [facility] Comment on above: Performed By: #### Patience BLAIR CMP, BNP #### [facility] [address] [place] [address] Dr. Emilie Stack CO2 [Moles/Vol] 27.2 mmol/L Normal 21.0-32.0 [facility] Comment on above: Performed By: #### Patience BLAIR CMP, BNP #### [facility] [address] [address] [address] Emilie Stack Creatinine [Mass/Vol] 1.06 mg/dL Normal 0.70-1.30 [facility] Comment on above: Performed By: #### Patience BLAIR CMP, BNP #### [facility] [address] [address] [address] Emilie Stack EGFR-AF CITIZEN [place] >60 Normal >=60 [facility] Comment on above: Performed By: #### Patience BLAIR CMP, BNP #### [facility] [address] [address] [address] Emilie Stack EGFR-NON AF CITIZEN OF [place] >60 Normal >=60 [facility] Comment on above: Performed By: #### Patience BLAIR CMP, BNP #### [facility] [address] [address] [address] Emilie Stack Globulin (S) [Mass/Vol] 3.1 g/dL Normal [facility] Comment on above: Performed By: #### Patience BLAIR CMP, BNP #### [facility] [address] [address] [address] Emilie Stack Glucose [Mass/Vol] 115 mg/dL Critically high 74-106 [facility] Comment on above: Performed By: #### Patience BLAIR CMP, BNP #### [facility] [address] [address] [address] Emilie Stack Potassium [Moles/Vol] 4.1 mmol/L Normal 3.5-5.1 [facility] Comment on above: Performed By: #### Patience BLAIR CMP, BNP #### [facility] [address] [address] [address] Emilie Stack Protein [Mass/Vol] 6.5 g/dL Normal 6.4-8.2 [facility] Comment on above: Performed By: #### Patience BLAIR CMP, BNP #### [facility] [address] [address] [address] Emilie Stack Sodium [Moles/Vol] 140 mmol/L Normal 136-145 [facility] Comment on above: Performed By: #### T ROSSY, CMP, BNP #### [facility] [address] [place] [address] Dr. Emilie Stack Urea nitrogen [Mass/Vol] 11.0 mg/dL Normal 7.0-18.0 [facility] Comment on above: Performed By: #### Patience BLAIR CMP, BNP #### [facility] [address] [place] [address] Dr. Emilie Stack Urea nitrogen/Creatinine [Mass ratio] 10.4 mg/mg Normal [facility] Comment on above: Performed By: #### Patience BLAIR CMP, BNP #### [facility] [address] [place] [address] Dr. Emilie Stack T4on 08-10-2022 T4 [Mass/Vol] 9.00 ug/dL Normal 4.50-12.10 [facility] Comment on above: Performed By: #### Patience BLAIR CMP, BNP #### [facility] [address] [place] [address] Dr. Emilie Stack THEOPHYLLINEon 08-10-2022 THEOPHYLLINE 5.1 ug/mL Critically low 10.0-20.0 [facility] Comment on above: Performed By: #### Patience BLAIR CMP, BNP #### [facility] [address] [place] [address] Dr. Emilie Stack TSHon 08-10-2022 TSH 0.585 uIU/mL Normal 0.358-3.740 [facility] Comment on above: Performed By: #### Patience BLAIR CMP, BNP #### [facility] [address] [place] [address] Dr. Emilie Stack BNPon 06-18-2022 Natriuretic peptide B (Bld) [Mass/Vol] 297.0 pg/mL Normal <=900.0 [facility] Comment on above: Performed By: #### Patience BLAIR CMP, BNP #### [facility] [address] [place] [address] Dr. Emilie Stack CBC AUTO DIFFon 06-18-2022 BASO # 0.0 103/ul Normal 0.0-0.1 [facility] Comment on above: Performed By: #### T ROSSY CMP, BNP #### [facility] [address] [place] [address] Dr. Emilie Stack Basophils/100 WBC (Bld) 0.1 % Critically low 0.2-2.0 [facility] Comment on above: Performed By: #### T ROSSY CMP, BNP #### [facility] [address] [place] [address] Dr. Emilie Stack EO # 0.0 103/ul Normal 0.0-0.7 [facility] Comment on above: Performed By: #### T ROSSY CMP, BNP #### [facility] [address] [place] [address] Dr. Emilie Stack Eosinophils/100 WBC (Bld) 0.0 % Critically low 0.9-7.0 [facility] Comment on above: Performed By: #### Patience BLAIR CMP, BNP #### [facility] [address] [place] [address] Dr. Emilie Stack Erythrocyte distribution width (RBC) [Ratio] 14.5 % Normal 11.0-15.0 [facility] Comment on above: Performed By: #### Patience BLAIR CMP, BNP #### [facility] [address] [place] [address] Dr. Emilie Stack Hematocrit (Bld) [Volume fraction] 40.2 % Critically low 42.0-54.0 [facility] Comment on above: Performed By: #### T ROSSY CMP, BNP #### [facility] [address] [place] [address] Dr. Emilie Stack Hemoglobin (Bld) [Mass/Vol] 13.4 g/dL Critically low 14.0-18.0 [facility] Comment on above: Performed By: #### T ROSSY CMP, BNP #### [facility] [address] [place] [address] Dr. Emilie Stack IG # 0.08 10e3/ul Critically high 0.00-0.03 [facility] Comment on above: Performed By: #### T ROSSY, CMP, BNP #### [facility] [address] [address] [address] Emilie Stack IG % 0.7 % Critically high 0.0-0.5 [facility] Comment on above: Performed By: #### T ROSSY, CMP, BNP #### [facility] [address] [address] [address] Emilie Stack LYMPH # 0.5 103/ul Critically low 1.2-3.8 [facility] Comment on above: Performed By: #### T ROSSY, CMP, BNP #### [facility] [address] [address] [address] Emilie Stack Lymphocytes/100 WBC (Bld) 4.4 % Critically low 20.5-60.0 [facility] Comment on above: Performed By: #### T ROSSY CMP, BNP #### [facility] [address] [place] [address] Dr. Emilie Stack MANUAL DIFF REQ NO Normal [facility] Comment on above: Performed By: #### T ROSSY, CMP, BNP #### [facility] [address] [place] [address] Dr. Emilie Stack MCH (RBC) [Entitic mass] 30.0 pg Normal 25.9-34.0 [facility] Comment on above: Performed By: #### T ROSSY CMP, BNP #### [facility] [address] [address] [address] Emilie Stack MCHC (RBC) [Mass/Vol] 33.3 g/dL Normal 29.9-35.2 [facility] Comment on above: Performed By: #### T ROSSY, CMP, BNP #### [facility] [address] [address] [address] Emilie Stack MCV (RBC) [Entitic vol] 89.9 fL Normal 80.0-94.0 [facility] Comment on above: Performed By: #### T ROSSY, CMP, BNP #### [facility] [address] [address] [address] Emilie Stack MONO # 0.5 103/ul Normal 0.3-0.8 [facility] Comment on above: Performed By: #### Patience BLAIR CMP, BNP #### [facility] [address] [place] [address] Dr. Emilie Stack Monocytes/100 WBC (Bld) 4.3 % Normal 1.7-12.0 [facility] Comment on above: Performed By: #### Patience BLAIR CMP, BNP #### [facility] [address] [place] [address] Dr. Emilie Stack NEUT # 10.8 103/ul Critically high 1.4-6.5 [facility] Comment on above: Performed By: #### Patience BLAIR CMP, BNP #### [facility] [address] [place] [address] Dr. Emilie Stack Neutrophils/100 WBC (Bld) 90.5 % Critically high 43.0-75.0 [facility] Comment on above: Performed By: #### Patience BLAIR CMP, BNP #### [facility] [address] [place] [address] Dr. Emilie Stack Platelet mean volume (Bld) [Entitic vol] 8.5 fL Critically low 9.5-13.5 [facility] Comment on above: Performed By: #### Patience BLAIR CMP, BNP #### [facility] [address] [place] [address] Dr. Emilie Stack PLT 309 103/ul Normal 150-450 [facility] Comment on above: Performed By: #### Patience BLAIR CMP, BNP #### [facility] [address] [place] [address] Dr. Emilie Stack RBC 4.47 106/ul Critically low 4.70-6.10 [facility] Comment on above: Performed By: #### T ROSSY CMP, BNP #### [facility] [address] [place] [address] Dr. Emilie Stack WBC 11.9 103/ul Critically high 4.0-11.0 [facility] Comment on above: Performed By: #### T ROSSY CMP, BNP #### [facility] [address] [address] [address] Emilie Stack PROF 14(COMP METB)on 022 Albumin [Mass/Vol] 3.4 g/dL Normal 3.4-5.0 [facility] Comment on above: Performed By: #### T ROSSY, CMP, BNP #### [facility] [address] [address] [address] Emilie Stack Albumin/Globulin [Mass ratio] 1.0 {ratio} Normal [facility] Comment on above: Performed By: #### T ROSSY, CMP, BNP #### [facility] [address] [address] [address] Emilie Stack ALP [Catalytic activity/Vol] 120 U/L Critically high 46-116 [facility] Comment on above: Performed By: #### T ROSSY, CMP, BNP #### [facility] [address] [address] [address] Emilie Stack ALT [Catalytic activity/Vol] 17 U/L Normal 16-63 [facility] Comment on above: Performed By: #### T ROSSY, CMP, BNP #### [facility] [address] [address] [address] Emilie Stack Anion gap [Moles/Vol] 13.3 mmol/L Normal [facility] Comment on above: Performed By: #### T ROSSY, CMP, BNP #### [facility] [address] [address] [address] Emilie Stack AST [Catalytic activity/Vol] 15 U/L Normal 15-37 [facility] Comment on above: Performed By: #### T ROSSY, CMP, BNP #### [facility] [address] [address] [address] Emilie Stack Bilirubin [Mass/Vol] 0.2 mg/dL Normal 0.2-1.0 [facility] Comment on above: Performed By: #### T ROSSY, CMP, BNP #### [facility] [address] [address] [address] Emilie Stack Calcium [Mass/Vol] 8.5 mg/dL Normal 8.5-10.1 [facility] Comment on above: Performed By: #### Patience BLAIR CMP, BNP #### [facility] [address] [address] [address] Emilie Stack Chloride [Moles/Vol] 102 mmol/L Normal 98-107 [facility] Comment on above: Performed By: #### Patience BLAIR CMP, BNP #### [facility] [address] [address] [address] Emilie Stack CO2 [Moles/Vol] 24.1 mmol/L Normal 21.0-32.0 [facility] Comment on above: Performed By: #### Patience BLAIR CMP, BNP #### [facility] [address] [place] [address] Dr. Emilie Stack Creatinine [Mass/Vol] 1.12 mg/dL Normal 0.70-1.30 [facility] Comment on above: Performed By: #### Patience BLAIR CMP, BNP #### [facility] [address] [place] [address] Dr. Emilie Stack EGFR-AF [place]IZ[place] >60 Normal >=60 [facility] Comment on above: Performed By: #### Patience BLAIR CMP, BNP #### [facility] [address] [place] [address] Dr. Emilie Stack EGFR-NON AF CITIZEN [place] >60 Normal >=60 [facility] Comment on above: Performed By: #### Patience BLAIR CMP, BNP #### [facility] [address] [place] [address] Dr. Emilie Stack Globulin (S) [Mass/Vol] 3.3 g/dL Normal [facility] Comment on above: Performed By: #### Patience BLAIR CMP, BNP #### [facility] [address] [place] [address] Dr. Emilie Stack Glucose [Mass/Vol] 138 mg/dL Critically high 74-106 [facility] Comment on above: Performed By: #### Patience BLAIR CMP, BNP #### [facility] [address] [place] [address] Dr. Emilie Stack Potassium [Moles/Vol] 4.4 mmol/L Normal 3.5-5.1 [facility] Comment on above: Performed By: #### Patience BLAIR CMP, BNP #### [facility] [address] [address] [address] Emilie Stack Protein [Mass/Vol] 6.7 g/dL Normal 6.4-8.2 [facility] Comment on above: Performed By: #### Patience BLAIR CMP, BNP #### [facility] [address] [address] [address] Emilie Stack Sodium [Moles/Vol] 135 mmol/L Critically low 136-145 [facility] Comment on above: Performed By: #### Patience BLAIR CMP, BNP #### [facility] [address] [place] [address] Dr. Emilie Stack Urea nitrogen [Mass/Vol] 23.0 mg/dL Critically high 7.0-18.0 [facility] Comment on above: Performed By: #### Patience BLAIR CMP, BNP #### [facility] [address] [place] [address] Dr. Emilie Stack Urea nitrogen/Creatinine [Mass ratio] 20.5 mg/mg Normal [facility] Comment on above: Performed By: #### Patience BLAIR CMP, BNP #### [facility] [address] [place] [address] Dr. Emilie Stack THEOPHYLLINEon 06-18-2022 THEOPHYLLINE 9.0 ug/mL Critically low 10.0-20.0 [facility] Comment on above: Performed By: #### Patience BLAIR CMP, BNP #### [facility] [address] [place] [address] Dr. Emilie Stack BNPon 06-17-2022 Natriuretic peptide B (Bld) [Mass/Vol] 320.0 pg/mL Normal <=900.0 [facility] Comment on above: Performed By: #### Patience BLAIR BNP, CMP #### [facility] [address] [place] [address] Dr. Emilie Stack CBC AUTO DIFFon 06-17-2022 BASO # 0.0 103/ul Normal 0.0-0.1 [facility] Comment on above: Performed By: #### T ROSSY CMP, BNP #### [facility] [address] [place] [address] Dr. Emilie Stack Basophils/100 WBC (Bld) 0.1 % Critically low 0.2-2.0 [facility] Comment on above: Performed By: #### T ROSSY CMP, BNP #### [facility] [address] [place] [address] Dr. Emilie Stack EO # 0.0 103/ul Normal 0.0-0.7 [facility] Comment on above: Performed By: #### Patience BLAIR CMP, BNP #### [facility] [address] [place] [address] Dr. Emilie Stack Eosinophils/100 WBC (Bld) 0.0 % Critically low 0.9-7.0 [facility] Comment on above: Performed By: #### Patience BLIAR CMP, BNP #### [facility] [address] [place] [address] Dr. Emilie Stack Erythrocyte distribution width (RBC) [Ratio] 14.3 % Normal 11.0-15.0 [facility] Comment on above: Performed By: #### Patience BLAIR CMP, BNP #### [facility] [address] [place] [address] Dr. Emilie Stack Hematocrit (Bld) [Volume fraction] 41.7 % Critically low 42.0-54.0 [facility] Comment on above: Performed By: #### T ROSSY CMP, BNP #### [facility] [address] [place] [address] Dr. Emilie Stack Hemoglobin (Bld) [Mass/Vol] 13.8 g/dL Critically low 14.0-18.0 [facility] Comment on above: Performed By: #### T ROSSY CMP, BNP #### [facility] [address] [place] [address] Dr. Emilie Stack IG # 0.09 10e3/ul Critically high 0.00-0.03 [facility] Comment on above: Performed By: #### T ROSSY, CMP, BNP #### [facility] [address] [address] [address] Emilie Stack IG % 0.6 % Critically high 0.0-0.5 [facility] Comment on above: Performed By: #### T ROSSY, CMP, BNP #### [facility] [address] [place] [address] Dr. Emilie Stack LYMPH # 0.6 103/ul Critically low 1.2-3.8 [facility] Comment on above: Performed By: #### T ROSSY, CMP, BNP #### [facility] [address] [place] [address] Dr. Emilie Stack Lymphocytes/100 WBC (Bld) 4.1 % Critically low 20.5-60.0 [facility] Comment on above: Performed By: #### T ROSSY CMP, BNP #### [facility] [address] [place] [address] Dr. Emilie Stack MANUAL DIFF REQ NO Normal [facility] Comment on above: Performed By: #### T ROSSY CMP, BNP #### [facility] [address] [place] [address] Dr. Emilie Stack MCH (RBC) [Entitic mass] 29.9 pg Normal 25.9-34.0 [facility] Comment on above: Performed By: #### T ROSSY CMP, BNP #### [facility] [address] [place] [address] Dr. Emilie Stack MCHC (RBC) [Mass/Vol] 33.1 g/dL Normal 29.9-35.2 [facility] Comment on above: Performed By: #### T ROSSY, CMP, BNP #### [facility] [address] [place] [address] Dr. Emilie Stack MCV (RBC) [Entitic vol] 90.5 fL Normal 80.0-94.0 [facility] Comment on above: Performed By: #### T ROSSY, CMP, BNP #### [facility] [address] [place] [address] Dr. Emilie Stack MONO # 0.5 103/ul Normal 0.3-0.8 [facility] Comment on above: Performed By: #### Patience BLAIR CMP, BNP #### [facility] [address] [address] [address] Emilie Stack Monocytes/100 WBC (Bld) 3.4 % Normal 1.7-12.0 [facility] Comment on above: Performed By: #### Patience BLAIR CMP, BNP #### [facility] [address] [place] [address] Dr. Emilie Stack NEUT # 13.1 103/ul Critically high 1.4-6.5 The [facility] Comment on above: Performed By: #### Patience BLAIR CMP, BNP #### [facility] [address] [place] [address] Dr. Emilie Stack Neutrophils/100 WBC (Bld) 91.8 % Critically high 43.0-75.0 [facility] Comment on above: Performed By: #### Patience BLAIR CMP, BNP #### [facility] [address] [place] [address] Dr. Emilie Stack Platelet mean volume (Bld) [Entitic vol] 8.8 fL Critically low 9.5-13.5 [facility] Comment on above: Performed By: #### Patience BLAIR CMP, BNP #### [facility] [address] [place] [address] Dr. Emilie Stack PLT 341 103/ul Normal 150-450 [facility] Comment on above: Performed By: #### Patience BLAIR CMP, BNP #### [facility] [address] [place] [address] Dr. Emilie Stack RBC 4.61 106/ul Critically low 4.70-6.10 The [facility] Comment on above: Performed By: #### Patience BLAIR CMP, BNP #### [facility] [address] [place] [address] Dr. Emilie Stack WBC 14.3 103/ul Critically high 4.0-11.0 The [facility] Comment on above: Performed By: #### Patience BLAIR CMP, BNP #### [facility] [address] [address] [address] Emilie Stack PROF 14(COMP METB)on 022 Albumin [Mass/Vol] 3.8 g/dL Normal 3.4-5.0 [facility] Comment on above: Performed By: #### T ROSSY, BNP, CMP #### [facility] [address] [address] [address] Emilie Stack Albumin/Globulin [Mass ratio] 1.1 {ratio} Normal [facility] Comment on above: Performed By: #### T ROSSY, BNP, CMP #### [facility] [address] [address] [address] Emilie Stack ALP [Catalytic activity/Vol] 139 U/L Critically high 46-116 [facility] Comment on above: Performed By: #### T ROSSY, BNP, CMP #### [facility] [address] [address] [address] Emilie Stack ALT [Catalytic activity/Vol] 20 U/L Normal 16-63 [facility] Comment on above: Performed By: #### T ROSSY, BNP, CMP #### [facility] [address] [address] [address] Emilie Stack Anion gap [Moles/Vol] 15.1 mmol/L Normal [facility] Comment on above: Performed By: #### T ROSSY, BNP, CMP #### [facility] [address] [address] [address] Emilie Stack AST [Catalytic activity/Vol] 16 U/L Normal 15-37 [facility] Comment on above: Performed By: #### T ROSSY, BNP, CMP #### [facility] [address] [address] [address] Emilie Stack Bilirubin [Mass/Vol] 0.2 mg/dL Normal 0.2-1.0 [facility] Comment on above: Performed By: #### T ROSSY, BNP, CMP #### [facility] [address] [address] [address] Emilie Stack Calcium [Mass/Vol] 9.2 mg/dL Normal 8.5-10.1 [facility] Comment on above: Performed By: #### Patience BLAIR BNP, CMP #### [facility] [address] [address] [address] Emilie Stack Chloride [Moles/Vol] 102 mmol/L Normal 98-107 [facility] Comment on above: Performed By: #### Patience BLAIR BNP, CMP #### [facility] [address] [address] [address] Emilie Stack CO2 [Moles/Vol] 23.2 mmol/L Normal 21.0-32.0 [facility] Comment on above: Performed By: #### Patience BLAIR BNP, CMP #### [facility] [address] [place] [address] Dr. Emilie Stack Creatinine [Mass/Vol] 1.16 mg/dL Normal 0.70-1.30 [facility] Comment on above: Performed By: #### Patience BLAIR BNP, CMP #### [facility] [address] [place] [address] Dr. Emilie Stack EGFR-AF CITIZEN [place] >60 Normal >=60 [facility] Comment on above: Performed By: #### Patience BLAIR BNP, CMP #### [facility] [address] [place] [address] Dr. Emilie tSack EGFR-NON AF CITIZEN [place] >60 Normal >=60 [facility] Comment on above: Performed By: #### Patience BLAIR BNP, CMP #### [facility] [address] [place] [address] Dr. Emilie Stack Globulin (S) [Mass/Vol] 3.6 g/dL Normal [facility] Comment on above: Performed By: #### Patience BLAIR BNP, CMP #### [facility] [address] [place] [address] Dr. Emilie Stack Glucose [Mass/Vol] 138 mg/dL Critically high 74-106 [facility] Comment on above: Performed By: #### Patience BLAIR BNP, CMP #### [facility] [address] [place] [address] Dr. Emilie Stack Potassium [Moles/Vol] 4.3 mmol/L Normal 3.5-5.1 [facility] Comment on above: Performed By: #### T ROSSY, BNP, CMP #### [facility] [address] [place] [address] Dr. Emilie Stack Protein [Mass/Vol] 7.4 g/dL Normal 6.4-8.2 [facility] Comment on above: Performed By: #### T ROSSY, BNP, CMP #### [facility] [address] [address] [address] Emilie Stack Sodium [Moles/Vol] 136 mmol/L Normal 136-145 [facility] Comment on above: Performed By: #### T ROSSY, BNP, CMP #### [facility] [address] [place] [address] Dr. Emilie Stack Urea nitrogen [Mass/Vol] 19.0 mg/dL Critically high 7.0-18.0 [facility] Comment on above: Performed By: #### T ROSSY, BNP, CMP #### [facility] [address] [place] [address] Dr. Emilie Stack Urea nitrogen/Creatinine [Mass ratio] 16.4 mg/mg Normal [facility] Comment on above: Performed By: #### T ROSSY, BNP, CMP #### [facility] [address] [place] [address] Dr. Emilie Stack THEOPHYLLINEon 06-17-2022 THEOPHYLLINE 8.3 ug/mL Critically low 10.0-20.0 [facility] Comment on above: Performed By: #### T ROSSY, BNP, CMP #### [facility] [address] [place] [address] Dr. Emilie Stack BNPon 06-16-2022 Natriuretic peptide B (Bld) [Mass/Vol] 73.0 pg/mL Normal <=900.0 [facility] Comment on above: Performed By: #### C MP, BNP, YESI #### [facility] [address] [place] [address] Dr. Emilie Stack CBC W MANUAL DIFFon 06-16-20 22 ATYPICAL LYMPH # Normal [facility] Comment on above: Performed By: #### C MP, BNP, YESI #### [facility] [address] [place] [address] Dr. Emilie Stack ATYPICAL LYMPH % Normal [facility] Comment on above: Performed By: #### C MP, BNP, YESI #### [facility] [address] [address] [address] Emilie Stack BAND # 0.0 103/ul Normal 0.0-0.3 [facility] Comment on above: Performed By: #### C MP, BNP, YESI #### [facility] [address] [place] [address] Dr. Emilie Stack BAND % 0 % Normal 0-5 [facility] Comment on above: Performed By: #### C MP, BNP, YESI #### [facility] [address] [place] [address] Dr. Emilie Stack BASOM # 0.00 103/ul Normal 0.00-0.10 [facility] Comment on above: Performed By: #### C MP, BNP, YESI #### [facility] [address] [place] [address] Dr. Emilie Stack BASOM % 0.0 % Critically low 0.2-2.0 [facility] Comment on above: Performed By: #### C MP, BNP, YESI #### [facility] [address] [place] [address] Dr. Emilie Stack BLAST # Normal [facility] Comment on above: Performed By: #### C MP, BNP, YESI #### [facility] [address] [place] [address] Dr. Emilie Stack BLAST % Normal [facility] Comment on above: Performed By: #### C MP, BNP, YESI #### [facility] [address] [place] [address] Dr. Emilie Stack CORRECTED WBC Normal 4.0-11.0 [facility] Comment on above: Performed By: #### C MP, BNP, YESI #### [facility] [address] [address] [address] Emilie Stack EOS # 0.00 103/ul Normal 0.00-0.70 [facility] Comment on above: Performed By: #### C MP, BNP, YESI #### [facility] [address] [address] [address] Emilie Stack EOS% 0.0 % Critically low 0.9-7.0 [facility] Comment on above: Performed By: #### C MP, BNP, YESI #### [facility] [address] [place] [address] Dr. Emilie Stack HCT 41.2 % Critically low 42.0-54.0 [facility] Comment on above: Performed By: #### C MP, BNP, YESI #### [facility] [address] [place] [address] Dr. Emilie Stack HGB 13.7 g/dl Critically low 14.0-18.0 [facility] Comment on above: Performed By: #### C MP, BNP, YESI #### [facility] [address] [place] [address] Dr. Emilie Stack LYMPHM # 0.42 103/ul Critically low 1.20-3.80 [facility] Comment on above: Performed By: #### C MP, BNP, YESI #### [facility] [address] [place] [address] Dr. Emilie Stack LYMPHM% 5.0 % Critically low 20.5-60.0 [facility] Comment on above: Performed By: #### C MP, BNP, YESI #### [facility] [address] [place] [address] Dr. Emilie Stack MCH 30.2 pg Normal 25.9-34.0 [facility] Comment on above: Performed By: #### C MP, BNP, YESI #### [facility] [address] [place] [address] Dr. Emilie Stack MCHC 33.3 g/dl Normal 29.9-35.2 [facility] Comment on above: Performed By: #### C MP, BNP, YESI #### [facility] [address] [place] [address] Dr. Emilie Stack MCV 90.7 fL Normal 80.0-94.0 [facility] Comment on above: Performed By: #### C MP, BNP, YESI #### [facility] [address] [place] [address] Dr. Emilie Stack METAMYELOCYTE # Normal [facility] Comment on above: Performed By: #### C MP, BNP, YESI #### [facility] [address] [address] [address] Emilie Stack METAMYELOCYTE % Normal [facility] Comment on above: Performed By: #### C MP, BNP, YESI #### [facility] [address] [place] [address] Dr. Emilie Stack MONOM# 0.00 103/ul Critically low 0.30-0.80 [facility] Comment on above: Performed By: #### C MP, BNP, YESI #### [facility] [address] [place] [address] Dr. Emilie Stack MONOM% 0.0 % Critically low 1.7-12.0 [facility] Comment on above: Performed By: #### C MP, BNP, YESI #### [facility] [address] [place] [address] Dr. Emilie Stack MPV 8.7 fL Critically low 9.5-13.5 [facility] Comment on above: Performed By: #### C MP, BNP, YESI #### [facility] [address] [place] [address] Dr. Emilie Stcak MYELOCYTE # Normal [facility] Comment on above: Performed By: #### C MP, BNP, YESI #### [facility] [address] [place] [address] Dr. Emilie Stack MYELOCYTE % Normal [facility] Comment on above: Performed By: #### C MP, BNP, YESI #### [facility] [address] [place] [address] Dr. Emilie Stack NRBC Normal [facility] Comment on above: Performed By: #### C MP, BNP, YESI #### [facility] [address] [place] [address] Dr. Emilie Stack PLT 286 103/ul Normal 150-450 [facility] Comment on above: Performed By: #### C MP, BNP, YESI #### [facility] [address] [place] [address] Dr. Emilie Stack RBC 4.54 106/ul Critically low 4.70-6.10 [facility] Comment on above: Performed By: #### C MP, BNP, YESI #### [facility] [address] [place] [address] Dr. Emilie Stack RDW 13.7 % Normal 11.0-15.0 [facility] Comment on above: Performed By: #### C MP, BNP, YESI #### [facility] [address] [place] [address] Dr. Emilie Stack SEG # 7.98 103/ul Critically high 1.40-6.50 [facility] Comment on above: Performed By: #### C MP, BNP, YESI #### [facility] [address] [place] [address] Dr. Emilie Stack SEG % 95.0 % Critically high 43.0-75.0 [facility] Comment on above: Performed By: #### C MP, BNP, YESI #### [facility] [address] [place] [address] Dr. Emilie Stack WBC 8.4 103/ul Normal 4.0-11.0 [facility] Comment on above: Performed By: #### C MP, BNP, YESI #### [facility] [address] [place] [address] Dr. Emilie Stack PROF 14(COMP METB)on 022 Albumin [Mass/Vol] 3.5 g/dL Normal 3.4-5.0 [facility] Comment on above: Performed By: #### C MP, BNP, YESI #### [facility] [address] [address] [address] Emilie Stack Albumin/Globulin [Mass ratio] 1.0 {ratio} Normal [facility] Comment on above: Performed By: #### C MP, BNP, YESI #### [facility] [address] [address] [address] Emilie Stack ALP [Catalytic activity/Vol] 137 U/L Critically high 46-116 [facility] Comment on above: Performed By: #### C MP, BNP, YESI #### [facility] [address] [place] [address] Dr. Emilie Stack ALT [Catalytic activity/Vol] 22 U/L Normal 16-63 [facility] Comment on above: Performed By: #### C MP, BNP, YESI #### [facility] [address] [place] [address] Dr. Emilie Stack Anion gap [Moles/Vol] 15.3 mmol/L Normal [facility] Comment on above: Performed By: #### C MP, BNP, YESI #### [facility] [address] [place] [address] Dr. Emilie Stack AST [Catalytic activity/Vol] 13 U/L Critically low 15-37 [facility] Comment on above: Performed By: #### C MP, BNP, YESI #### [facility] [address] [place] [address] Dr. Eimlie Stack Bilirubin [Mass/Vol] 0.1 mg/dL Critically low 0.2-1.0 [facility] Comment on above: Performed By: #### C MP, BNP, YESI #### [facility] [address] [address] [address] Emilie Stack Calcium [Mass/Vol] 9.2 mg/dL Normal 8.5-10.1 [facility] Comment on above: Performed By: #### C MP, BNP, YESI #### [facility] [address] [address] [address] Emilie Stack Chloride [Moles/Vol] 101 mmol/L Normal 98-107 [facility] Comment on above: Performed By: #### C MP, BNP, YESI #### [facility] [address] [address] [address] Emilie Stack CO2 [Moles/Vol] 21.4 mmol/L Normal 21.0-32.0 [facility] Comment on above: Performed By: #### C MP, BNP, YESI #### [facility] [address] [place] [address] Dr. Emilie Stack Creatinine [Mass/Vol] 1.26 mg/dL Normal 0.70-1.30 [facility] Comment on above: Performed By: #### C MP, BNP, YESI #### [facility] [address] [address] [address] Emilie Stack EGFR-AF [place]IZ[place] >60 Normal >=60 [facility] Comment on above: Performed By: #### C MP, BNP, YESI #### [facility] [address] [place] [address] Dr. Emilie Stack EGFR-NON AF CITIZEN [place] 56 mL/min/1.73m2 Critically low >=60 [facility] Comment on above: Performed By: #### C MP, BNP, YESI #### [facility] [address] [address] [address] Emilie Stack Globulin (S) [Mass/Vol] 3.5 g/dL Normal [facility] Comment on above: Performed By: #### C MP, BNP, YESI #### [facility] [address] [address] [address] Emilie Stack Glucose [Mass/Vol] 159 mg/dL Critically high 74-106 [facility] Comment on above: Performed By: #### C MP, BNP, YESI #### [facility] [address] [address] [address] Emilie Stack Potassium [Moles/Vol] 3.7 mmol/L Normal 3.5-5.1 [facility] Comment on above: Performed By: #### C MP, BNP, YESI #### [facility] [address] [address] [address] Emilie Stack Protein [Mass/Vol] 7.0 g/dL Normal 6.4-8.2 [facility] Comment on above: Performed By: #### C MP, BNP, YESI #### [facility] [address] [place] [address] Dr. Emilie Stack Sodium [Moles/Vol] 134 mmol/L Critically low 136-145 [facility] Comment on above: Performed By: #### C MP, BNP, YESI #### [facility] [address] [place] [address] Dr. Emilie Stack Urea nitrogen [Mass/Vol] 23.0 mg/dL Critically high 7.0-18.0 [facility] Comment on above: Performed By: #### C MP, BNP, YESI #### [facility] [address] [place] [address] Dr. Emilie Stack Urea nitrogen/Creatinine [Mass ratio] 18.3 mg/mg Normal [facility] Comment on above: Performed By: #### C MP, BNP, YESI #### [facility] [address] [place] [address] Dr. Emilie Stack T3, TOTAL (TRIIODOTHYRONINE) on 06-16-2022 T3, TOTAL 128 ng/dL Normal 71-180 [facility] Comment on above: Performed By: #### T ROSSY CMP, BNP #### [facility] [address] [place] [address] Dr. Emilie Stack THEOPHYLLINEon 06-16-2022 THEOPHYLLINE 5.9 ug/mL Critically low 10.0-20.0 [facility] Comment on above: Performed By: #### T ROSSY, BNP, CMP #### [facility] [address] [place] [address] Dr. Emilie Stack BNPon 06-15-2022 Natriuretic peptide B (Bld) [Mass/Vol] 30.0 pg/mL Normal <=900.0 [facility] Comment on above: Performed By: #### C MP, BNP, YESI #### [facility] [address] [place] [address] Dr. Emilie Stack CARDIAC GATITO 3-6on 2 CK [Catalytic activity/Vol] 110 U/L Normal 39-308 [facility] Comment on above: Performed By: #### C MP, BNP, YESI #### [facility] [address] [address] [address] Emilie Stack CK.MB [Mass/Vol] 1.64 ng/mL Normal <=3.60 [facility] Comment on above: Performed By: #### C MP, BNP, YESI #### [facility] [address] [address] [address] Emilie Stack HSTROP 6.1 pg/mL Normal 4.0-76.1 [facility] Comment on above: Result Comment: CUT- OFF POINTS HAVE BEEN ESTABLISHED BASED ON THE FOURTH UNIVERSAL DEFINITIONS OF MYOCARDIAL INFARCTION. THE UPPER REFERENCE LIMIT (URL) OF TROPONIN, DEFINED THE 99TH PERCENTILE OF cTnI DISTRIBUTION IN A REFERENCE POPULATION, HAS BEEN CONFIRMED THE DECISION THRESHOLD FOR [place] DIAGNOSIS. Performed By: #### C MP, BNP, YESI #### [facility] [address] [address] [address] Emilie Stack Performed By: #### T ROSSY, CMP, BNP #### [facility] [address] [place] [address] Dr. Emilie Stack CK [Catalytic activity/Vol] 125 U/L Normal 39-308 [facility] Comment on above: Performed By: #### T ROSSY, CMP, BNP #### [facility] [address] [address] [address] Emilie Stack CK.MB [Mass/Vol] 1.83 ng/mL Normal <=3.60 [facility] Comment on above: Performed By: #### T ROSSY, CMP, BNP #### [facility] [address] [address] [address] Emilie Stack CARDIAC GATITO ADMITon 022 CK [Catalytic activity/Vol] 129 U/L Normal 39-308 [facility] Comment on above: Performed By: #### C MP, BNP, YESI #### [facility] [address] [place] [address] Dr. Emilie Stack CK.MB [Mass/Vol] 1.68 ng/mL Normal <=3.60 [facility] Comment on above: Performed By: #### C MP, BNP, YESI #### [facility] [address] [place] [address] Dr. Emilie Stack HSTROP 6.6 pg/mL Normal 4.0-76.1 [facility] Comment on above: Result Comment: CUT- OFF POINTS HAVE BEEN ESTABLISHED BASED ON THE FOURTH UNIVERSAL DEFINITIONS OF MYOCARDIAL INFARCTION. THE UPPER REFERENCE LIMIT (URL) OF TROPONIN, DEFINED THE 99TH PERCENTILE OF cTnI DISTRIBUTION IN A REFERENCE POPULATION, HAS BEEN CONFIRMED THE DECISION THRESHOLD FOR [place] DIAGNOSIS. Performed By: #### C MP, BNP, YESI #### [facility] [address] [place] [address] Dr. Emilie Stack BELEN 85 ng/mL Normal 16-96 [facility] Comment on above: Performed By: #### C MP, BNP, YESI #### [facility] [address] [place] [address] Dr. Emilie Stack CBC AUTO DIFFon 06-15-2022 BASO # 0.1 103/ul Normal 0.0-0.1 [facility] Comment on above: Performed By: #### C MP, BNP, YESI #### [facility] [address] [place] [address] Dr. Emilie Stack Basophils/100 WBC (Bld) 0.8 % Normal 0.2-2.0 [facility] Comment on above: Performed By: #### C MP, BNP, YESI #### [facility] [address] [place] [address] Dr. Emilie Stack EO # 0.2 103/ul Normal 0.0-0.7 [facility] Comment on above: Performed By: #### C MP, BNP, YESI #### [facility] [address] [place] [address] Dr. Emilie Stack Eosinophils/100 WBC (Bld) 4.1 % Normal 0.9-7.0 [facility] Comment on above: Performed By: #### C MP, BNP, YESI #### [facility] [address] [place] [address] Dr. Emilie Stack Erythrocyte distribution width (RBC) [Ratio] 13.8 % Normal 11.0-15.0 [facility] Comment on above: Performed By: #### C MP, BNP, YESI #### [facility] [address] [place] [address] Dr. Emilie Stack Hematocrit (Bld) [Volume fraction] 45.8 % Normal 42.0-54.0 [facility] Comment on above: Performed By: #### C MP, BNP, YESI #### [facility] [address] [place] [address] Dr. Emilie Stack Hemoglobin (Bld) [Mass/Vol] 15.1 g/dL Normal 14.0-18.0 [facility] Comment on above: Performed By: #### C MP, BNP, YESI #### [facility] [address] [place] [address] Dr. Emilie Stack IG # 0.02 10e3/ul Normal 0.00-0.03 [facility] Comment on above: Performed By: #### C MP, BNP, YESI #### [facility] [address] [place] [address] Dr. Emilie Stack IG % 0.3 % Normal 0.0-0.5 [facility] Comment on above: Performed By: #### C MP, BNP, YESI #### [facility] [address] [place] [address] Dr. Emilie Stack LYMPH # 1.5 103/ul Normal 1.2-3.8 [facility] Comment on above: Performed By: #### C MP, BNP, YESI #### [facility] [address] [place] [address] Dr. Emilei Stack Lymphocytes/100 WBC (Bld) 25.3 % Normal 20.5-60.0 [facility] Comment on above: Performed By: #### C MP, BNP, YESI #### [facility] [address] [place] [address] Dr. Emilie Stack MANUAL DIFF REQ NO Normal [facility] Comment on above: Performed By: #### C MP, BNP, YESI #### [facility] [address] [place] [address] Dr. Emilie Stack MCH (RBC) [Entitic mass] 29.9 pg Normal 25.9-34.0 [facility] Comment on above: Performed By: #### C MP, BNP, YESI #### [facility] [address] [place] [address] Dr. Emilie Stack MCHC (RBC) [Mass/Vol] 33.0 g/dL Normal 29.9-35.2 [facility] Comment on above: Performed By: #### C MP, BNP, YESI #### [facility] [address] [place] [address] Dr. Emilie Stack MCV (RBC) [Entitic vol] 90.7 fL Normal 80.0-94.0 [facility] Comment on above: Performed By: #### C MP, BNP, YESI #### [facility] [address] [place] [address] Dr. Emilie Stack MONO # 0.6 103/ul Normal 0.3-0.8 [facility] Comment on above: Performed By: #### C MP, BNP, YESI #### [facility] [address] [place] [address] Dr. Emilie Stack Monocytes/100 WBC (Bld) 10.3 % Normal 1.7-12.0 [facility] Comment on above: Performed By: #### C MP, BNP, YESI #### [facility] [address] [place] [address] Dr. Emilie Stack NEUT # 3.5 103/ul Normal 1.4-6.5 [facility] Comment on above: Performed By: #### C MP, BNP, YESI #### [facility] [address] [place] [address] Dr. Emilie Stack Neutrophils/100 WBC (Bld) 59.2 % Normal 43.0-75.0 [facility] Comment on above: Performed By: #### C MP, BNP, YESI #### [facility] [address] [place] [address] Dr. Emilie Stack Platelet mean volume (Bld) [Entitic vol] 8.7 fL Critically low 9.5-13.5 [facility] Comment on above: Performed By: #### C MP, BNP, YESI #### [facility] [address] [place] [address] Dr. Emilie Stack PLT 320 103/ul Normal 150-450 [facility] Comment on above: Performed By: #### C MP, BNP, YESI #### [facility] [address] [place] [address] Dr. Emilie Stack RBC 5.05 106/ul Normal 4.70-6.10 [facility] Comment on above: Performed By: #### C MP, BNP, YESI #### [facility] [address] [place] [address] Dr. Emilie Stack WBC 5.9 103/ul Normal 4.0-11.0 [facility] Comment on above: Performed By: #### C MP, BNP, YESI #### [facility] [address] [place] [address] Dr. Emilie Stack CULTURE BLOODon 06-15-2022 Microscopic examination of blood, culture Culture Observations: NO GROWTH AT 5 DAYS. Normal [facility] Comment on above: Performed By: #### T JEANETTE BLAIR, BNP #### [facility] [address] [place] [address] Dr. Emilie Stack Microscopic examination of blood, culture Culture Observations: NO GROWTH AT 5 DAYS. Normal [facility] Comment on above: Performed By: #### T ROSSY CMP, BNP #### [facility] [address] [place] [address] Dr. Emilie Stack CULTURE SPUTUMon 06-15-2022 CULTURE SPUTUM Culture Observations : Moraxella Catarrhalis is Beta Lactmase Positive Culture Observations: Normal respiratory tano also seen Isolate 1 Moraxella (Branhamella) catarrhalis Heavy growth of Normal [facility] Comment on above: Performed By: #### T JEANETTE BLAIR, BNP #### [facility] [address] [place] [address] Dr. Eimlie Stack Covid-19 PCR (CVDTB)on 05-27 SARS-CoV-2 (COVID-19) RNA [place]+probe Ql (Unsp spec) Not detected Normal NOT DETECTED [facility] Comment on above: Result Comment: When diagnostic [...] for this test is supported by the [employer] Instructor of Health and Human Service's declaration that [...] By: #### T ROSSY, CMP, BNP #### [facility] [address] [place] [address] Dr. Emilie Stack PROF 14(COMP METB)on 022 Albumin [Mass/Vol] 3.7 g/dL Normal 3.4-5.0 [facility] Comment on above: Performed By: #### C MP, BNP, YESI #### [facility] [address] [place] [address] Dr. Emilie Stack Albumin/Globulin [Mass ratio] 1.0 {ratio} Normal [facility] Comment on above: Performed By: #### C MP, BNP, YESI #### [facility] [address] [place] [address] Dr. Emilie Stack ALP [Catalytic activity/Vol] 154 U/L Critically high 46-116 [facility] Comment on above: Performed By: #### C MP, BNP, YESI #### [facility] [address] [place] [address] Dr. Emilie Stack ALT [Catalytic activity/Vol] 24 U/L Normal 16-63 [facility] Comment on above: Performed By: #### C MP, BNP, YESI #### [facility] [address] [place] [address] Dr. Emilie Stack Anion gap [Moles/Vol] 13.0 mmol/L Normal [facility] Comment on above: Performed By: #### C MP, BNP, YESI #### [facility] [address] [place] [address] Dr. Emilie Stack AST [Catalytic activity/Vol] 17 U/L Normal 15-37 [facility] Comment on above: Performed By: #### C MP, BNP, YESI #### [facility] [address] [place] [address] Dr. Emilie Stack Bilirubin [Mass/Vol] 0.3 mg/dL Normal 0.2-1.0 [facility] Comment on above: Performed By: #### C MP, BNP, YESI #### [facility] [address] [place] [address] Dr. Emilie Stack Calcium [Mass/Vol] 8.6 mg/dL Normal 8.5-10.1 [facility] Comment on above: Performed By: #### C MP, BNP, YESI #### [facility] [address] [place] [address] Dr. Emilie Stack Chloride [Moles/Vol] 104 mmol/L Normal 98-107 [facility] Comment on above: Performed By: #### C MP, BNP, YESI #### [facility] [address] [place] [address] Dr. Emilie Stack CO2 [Moles/Vol] 24.9 mmol/L Normal 21.0-32.0 [facility] Comment on above: Performed By: #### C MP, BNP, YESI #### [facility] [address] [place] [address] Dr. Emilie Stack Creatinine [Mass/Vol] 1.10 mg/dL Normal 0.70-1.30 [facility] Comment on above: Performed By: #### C MP, BNP, YESI #### [facility] [address] [address] [address] Emilie Stack EGFR-AF CITIZEN OF [place] >60 Normal >=60 [facility] Comment on above: Performed By: #### C MP, BNP, YESI #### [facility] [address] [address] [address] Emilie Stack EGFR-NON AF CITIZEN OF [place] >60 Normal >=60 [facility] Comment on above: Performed By: #### C MP, BNP, YESI #### [facility] [address] [address] [address] Emilie Stack Globulin (S) [Mass/Vol] 3.6 g/dL Normal [facility] Comment on above: Performed By: #### C MP, BNP, YESI #### [facility] [address] [address] [address] Emilie Stack Glucose [Mass/Vol] 107 mg/dL Critically high 74-106 [facility] Comment on above: Performed By: #### C MP, BNP, YESI #### [facility] [address] [address] [address] Emilie Stack Potassium [Moles/Vol] 3.9 mmol/L Normal 3.5-5.1 [facility] Comment on above: Performed By: #### C MP, BNP, YESI #### [facility] [address] [address] [address] Emilie Stack Protein [Mass/Vol] 7.3 g/dL Normal 6.4-8.2 [facility] Comment on above: Performed By: #### C MP, BNP, YESI #### [facility] [address] [address] [address] Emilie Stack Sodium [Moles/Vol] 138 mmol/L Normal 136-145 [facility] Comment on above: Performed By: #### C MP, BNP, YESI #### [facility] [address] [address] [address] Emilie Stack Urea nitrogen [Mass/Vol] 18.0 mg/dL Normal 7.0-18.0 [facility] Comment on above: Performed By: #### C MP, BNP, YESI #### [facility] [address] [address] [address] Emilie Stack Urea nitrogen/Creatinine [Mass ratio] 16.4 mg/mg Normal [facility] Comment on above: Performed By: #### C MP, BNP, YESI #### [facility] [address] [address] [address] Emilie Stack SPUTUM GRAM STAINon 06-15-20 COMMENTS Normal [facility] Comment on above: Performed By: #### T ROSSY, CMP, BNP #### [facility] [address] [address] [address] Emilie Stack DIPHTHEROIDS Normal [facility] Comment on above: Performed By: #### T ROSSY, CMP, BNP #### [facility] [address] [address] [address] Emilie Stack EPITHELIALS <25 Normal [facility] Comment on above: Performed By: #### T ROSSY, CMP, BNP #### [facility] [address] [address] [address] Emilie Stack FUNGAL ELEMENTS Normal [facility] Comment on above: Performed By: #### T ROSSY, CMP, BNP #### [facility] [address] [address] [address] Emilie JARAMILLO NEG BACILLI Normal [facility] Comment on above: Performed By: #### T ROSSY, CMP, BNP #### [facility] [address] [address] [address] Emilie JARAMILLO NEG DIPPLOCOCCI MANY Normal [facility] Comment on above: Performed By: #### T ROSSY, CMP, BNP #### [facility] [address] [address] [address] Emilie JARAMILLO POS BACILLI Normal [facility] Comment on above: Performed By: #### T ROSSY, CMP, BNP #### [facility] [address] [address] [address] Emilie Stack GRAM POSITIVE COCCI FEW Normal [facility] Comment on above: Performed By: #### T ROSSY, CMP, BNP #### [facility] [address] [place] [address] Dr. Emilie Stack WBC (Bld) [#/Vol] 10*3/uL Normal [facility] Comment on above: Performed By: #### T ROSSY, CMP, BNP #### [facility] [address] [place] [address] Dr. Emilie Stack T4on 06-15-2022 T4 [Mass/Vol] 8.10 ug/dL Normal 4.50-12.10 [facility] Comment on above: Performed By: #### C MP, BNP, YESI #### [facility] [address] [place] [address] Dr. Emilie Stack TSHon 06-15-2022 TSH 1.611 uIU/mL Normal 0.358-3.740 [facility] Comment on above: Performed By: #### C MP, BNP, YESI #### [facility] [address] [place] [address] Dr. Emilie Stack UA RANDOM W/MICROSCOPICon BACTERIA NONE SEEN Normal NONE SEEN [facility] Comment on above: Performed By: #### T ROSSY, CMP, BNP #### [facility] [address] [place] [address] Dr. Emilie tSack Bilirubin Ql (U) Negative Normal NEGATIVE [facility] Comment on above: Performed By: #### T ROSSY, CMP, BNP #### [facility] [address] [place] [address] Dr. Emilie Stack CAST NONE SEEN Normal NONE SEEN [facility] Comment on above: Performed By: #### T ROSSY, CMP, BNP #### [facility] [address] [place] [address] Dr. Emilie Stack Clarity (U) CLEAR Normal CLEAR [facility] Comment on above: Performed By: #### T ROSSY, CMP, BNP #### [facility] [address] [place] [address] Dr. Emilie Stack Color (U) LT. YELLOW Normal YELLOW [facility] Comment on above: Performed By: #### T ROSSY, CMP, BNP #### [facility] [address] [address] [address] Emilie Stack Crystals LM Nom (Urine sed) NONE SEEN Normal NONE SEEN [facility] Comment on above: Performed By: #### T ROSSY, CMP, BNP #### [facility] [address] [address] [address] Emilie Stack Epithelial cells LM Ql (Urine sed) RARE Normal NONE SEEN /RARE [facility] Comment on above: Performed By: #### T ROSSY, CMP, BNP #### [facility] [address] [address] [address] Emilie Stack Glucose Ql (U) Negative Normal NEGATIVE [facility] Comment on above: Performed By: #### T ROSSY CMP, BNP #### [facility] [address] [place] [address] Dr. Emilie Stack Hemoglobin Ql (U) TRACE-INTACT Abnormal NEGATIVE [facility] Comment on above: Performed By: #### T ROSSY CMP, BNP #### [facility] [address] [place] [address] Dr. Emilie Stack Ketones Ql (U) Negative Normal NEGATIVE [facility] Comment on above: Performed By: #### T ROSSY CMP, BNP #### [facility] [address] [place] [address] Dr. Emilie Stack LEUKOCYTES Negative Normal NEGATIVE [facility] Comment on above: Performed By: #### T ROSSY CMP, BNP #### [facility] [address] [address] [address] Emilie Stack MUCOUS SMALL Abnormal NONE SEEN [facility] Comment on above: Performed By: #### T ROSSY, CMP, BNP #### [facility] [address] [place] [address] Dr. Emilie Stack Nitrite Ql (U) Negative Normal NEGATIVE [facility] Comment on above: Performed By: #### T ROSSY, CMP, BNP #### [facility] [address] [place] [address] Dr. Emilie Stack pH (U) 5.5 [pH] Normal 5-9 [facility] Comment on above: Performed By: #### T ROSSY, CMP, BNP #### [facility] [address] [address] [address] Emilie Stack RBC NONE SEEN Abnormal 0-2 [facility] Comment on above: Performed By: #### T ROSSY, CMP, BNP #### [facility] [address] [address] [address] Emilie Stack SPEC GRAVITY 1.025 Normal 1.005-<=1.025 [facility] Comment on above: Performed By: #### T ROSSY, CMP, BNP #### [facility] [address] [place] [address] Dr. Emilie Stack UA PROTEIN Negative Normal NEGATIVE/ TRACE [facility] Comment on above: Performed By: #### T ROSSY, CMP, BNP #### [facility] [address] [place] [address] Dr. Emilie Stack Urobilinogen Qn (U) 0.2 {Jose Guadalupe'U}/dL Normal 0.2 - 1. 0 [facility] Comment on above: Performed By: #### T ROSSY CMP, BNP #### [facility] [address] [place] [address] Dr. Emilie Stack WBC NONE SEEN Normal NONE SEEN [facility] Comment on above: Performed By: #### T ROSSY, CMP, BNP #### [facility] [address] [place] [address] Dr. Emilie Stack XR CHEST 2 Von [...] by: CORRINE Alegria: 2022-06-15 13:36 Normal [facility] US Abdomen RUQon 10-21-2021 IMPRESSION: No gallstones [...] gallstones No free fluid Small right kidney. [facility] Radiology Study observation (narrative) [facility] US Abdomen RUQOrdered By: Matt Francisco on 10-21-2021 [facility] Work Phone: XR Chest PA and [...] COPD. No acute infiltrate or consolidation seen. [facility] Radiology Study observation (narrative) [facility] and LateralOrder ed By: Rafal Salter on 09-29-2021 [email or web address] Work Phone: C REACTIVE PROTEINon 022 CRP [Mass/Vol] 42.1 mg/L High 0 - 10.0 MG/L [facility] CBC, EDIF, PLATELETon 2021 ABSOLUTE BASOPHIL COUNT 0.0 10*3/uL 0.0 - 0.2 10*3/uL [facility] Basophils/100 WBC (Bld) 0.2 % 0.0 - 2.0 % [facility] Differential cell count method Nom (Bld) AUTO DIFF % [facility] Eosinophils (Bld) [#/Vol] 0.00 10*3/uL 0.0 - 0.7 10*3/uL [facility] Eosinophils/100 WBC (Bld) 0.1 % 0.0 - 11.0 % [facility] Erythrocyte distribution width (RBC) [Ratio] 13.5 % 11.5 - 14.5 % [facility] Hematocrit (Bld) [Volume fraction] 41.0 % Low 42.0 - 52.0 % [facility] Hemoglobin (Bld) [Mass/Vol] 14.3 g/dL [facility] Interpretation and review of laboratory results Abnormal [facility] Lymphocytes (Bld) [#/Vol] 0.40 10*3/uL Low 1.2 - 3.4 10*3/uL [facility] Lymphocytes/100 WBC (Bld) 16.0 % Low 20.0 - 55.0 % [facility] MCH (RBC) [Entitic mass] 32.1 pg 26.0 - 35.0 PG [facility] MCHC (RBC) [Mass/Vol] 34.8 g/dL [facility] MCV (RBC) [Entitic vol] 92.1 fL [facility] Monocytes (Bld) [#/Vol] 0.1 10*3/uL 0.0 - 0.7 10*3/uL [facility] Monocytes/100 WBC (Bld) 4.4 % 0.0 - 10.0 % [facility] Neutrophils (Bld) [#/Vol] 2.2 10*3/uL 1.4 - 6.5 10*3/uL [facility] Neutrophils/100 WBC (Bld) 79.3 % High 37.0 - 75.0 % [facility] Platelet mean volume (Bld) [Entitic vol] 8.8 fL [facility] Platelets (Bld) [#/Vol] 230 10*3/uL 130.0 - 400.0 10*3/uL [facility] RBC (Bld) [#/Vol] 4.45 10*6/uL 4.0 - 6.1 10*6/uL [facility] WBC (Bld) [#/Vol] 2.8 10*3/uL Low 3.6 - 11.0 10*3/uL [facility] HEPATIC FUNCTION PANELon Albumin [Mass/Vol] 3.0 g/dL Low [facility] ALP [Catalytic activity/Vol] 78 U/L [facility] ALT [Catalytic activity/Vol] 26 U/L [facility] AST [Catalytic activity/Vol] 25 U/L [facility] Bilirubin [Mass/Vol] 0.7 mg/dL [facility] Bilirubin.direct [Mass/Vol] 0.1 mg/dL [facility] Protein [Mass/Vol] 6.7 g/dL [facility] MAGNESIUMon 08-02-2021 Magnesium [Mass/Vol] 2.2 mg/dL [facility] No Panel Informationon 08-02 Interpretation and review of laboratory results Abnormal [facility] PROTIME-INRon 08-02-2021 INR Coag (PPP) [Relative time] 1.24 {INR} High [facility] Comment on above: 2.0-3.0 THERAPEUTIC RANGE 2.5-3.5 MECHANICAL VALVE RANGE Interpretation and review of laboratory results Abnormal [facility] PT Coag (PPP) [Time] 15.7 s [facility] RENAL FUNCTION PANELon 08-02 Albumin [Mass/Vol] 3.0 G/dl Low 3.5 - 5.0 G/dl [facility] Calcium [Mass/Vol] 8.5 mg/dL [facility] Chloride [Moles/Vol] 104 mmol/L [facility] CO2 [Moles/Vol] 20 mmol/L Low [facility] Creatinine [Mass/Vol] 0.76 mg/dL [facility] GFR COMMENT Average GFR for 70+ years old = 75. [facility] Comment on above: Chronic Kidney disea se, GFR = <60. Kidney failure, GFR = <15. The GFR estimate is not adjusted for extreme body surface area or acute process, nor has it been validated for women or ethnic groups other than and . GFR/1.73 sq M.predicted among blacks MDRD (S/P/Bld) [Vol rate/Area] 130 mL/min/{1.73_m2} ml/min/1.73sq .m [facility] GFR/1.73 sq M.predicted among non-blacks MDRD (S/P/Bld) [Vol rate/Area] 108 mL/min/{1.73_m2} ml/min/1.73sq .m [facility] Glucose post fast [Mass/Vol] 138 mg/dL [facility] Comment on above: NORMAL <100 mg/dL PREDIABETES 101-126 mg/dL DIABETES 126 mg/dL or higher Interpretation and review of laboratory results Abnormal [facility] Phosphate [Mass/Vol] 2.6 mg/dL [facility] Potassium [Moles/Vol] 3.9 mmol/L [facility] Sodium [Moles/Vol] 136 mmol/L [facility] Urea nitrogen [Mass/Vol] 12 mg/dL [facility] SEDIMENTATION RATE, AUTOMATE Don 08-02-2021 ESR (Bld) [Velocity] 31 mm/h [facility] Interpretation and review of laboratory results Abnormal [facility] C REACTIVE PROTEINon 022 CRP [Mass/Vol] 55.8 mg/L High 0 - 10.0 MG/L [facility] CBC, EDIF, PLATELETon 2021 Differential cell count method Nom (Bld) MANUAL DIFF % [facility] Erythrocyte distribution width (RBC) [Ratio] 13.4 % 11.5 - 14.5 % [facility] Hematocrit (Bld) [Volume fraction] 37.8 % Low 42.0 - 52.0 % [facility] Hemoglobin (Bld) [Mass/Vol] 13.2 g/dL Low [facility] Immature granulocytes/100 WBC (Bld) 1 % 0.0 - 2.0 % [facility] Interpretation and review of laboratory results Abnormal [facility] Lymphocytes/100 WBC (Bld) 25 % 20.0 - 55.0 % [facility] MCH (RBC) [Entitic mass] 31.9 pg 26.0 - 35.0 PG [facility] MCHC (RBC) [Mass/Vol] 34.9 g/dL [facility] MCV (RBC) [Entitic vol] 91.6 fL [facility] Monocytes/100 WBC (Bld) 28 % High 0.0 - 10.0 % [facility] Morphology Elvin (Bld) [Interp] NORMAL [facility] Neutrophils/100 WBC (Bld) 46 % 37.0 - 75.0 % [facility] Platelet mean volume (Bld) [Entitic vol] 8.5 fL [facility] Platelet morphology finding Nom (Bld) ADEQUATE [facility] Platelets (Bld) [#/Vol] 189 10*3/uL 130.0 - 400.0 10*3/uL [facility] RBC (Bld) [#/Vol] 4.12 10*6/uL 4.0 - 6.1 10*6/uL [facility] WBC (Bld) [#/Vol] 3.2 10*3/uL Low 3.6 - 11.0 10*3/uL [facility] WBC MORPHOLOGY STATUS VACUOLES [facility] HEPATIC FUNCTION PANELon Albumin [Mass/Vol] 2.7 g/dL Low [facility] ALP [Catalytic activity/Vol] 73 U/L [facility] ALT [Catalytic activity/Vol] 22 U/L [facility] AST [Catalytic activity/Vol] 24 U/L [facility] Bilirubin [Mass/Vol] 0.5 mg/dL [facility] Bilirubin.direct [Mass/Vol] 0.1 mg/dL [facility] Protein [Mass/Vol] 5.9 g/dL Low [facility] LEGIONELLA URINARY AGon L. pneumophila 1 Ag IA Ql (U) Negative NEGATIVE [facility] MAGNESIUMon 08-01-2021 Magnesium [Mass/Vol] 1.8 mg/dL [facility] No Panel Informationon 08-01 [facility] [facility] Interpretation and review of laboratory results Abnormal [facility] PROTIME-INRon 08-01-2021 INR Coag (PPP) [Relative time] 1.40 {INR} High [facility] Comment on above: 2.0-3.0 THERAPEUTIC RANGE 2.5-3.5 MECHANICAL VALVE RANGE Interpretation and review of laboratory results Abnormal [facility] PT Coag (PPP) [Time] 17.3 s High [facility] RENAL FUNCTION PANELon 08-01 Albumin [Mass/Vol] 2.7 G/dl Low 3.5 - 5.0 G/dl [facility] Calcium [Mass/Vol] 8.0 mg/dL Low [facility] Chloride [Moles/Vol] 105 mmol/L [facility] CO2 [Moles/Vol] 22 mmol/L [facility] Creatinine [Mass/Vol] 0.96 mg/dL [facility] GFR COMMENT Average GFR for 70+ years old = 75. [facility] Comment on above: Chronic Kidney disea se, GFR = <60. Kidney failure, GFR = <15. The GFR estimate is not adjusted for extreme body surface area or acute process, nor has it been validated for women or ethnic groups other than and . GFR/1.73 sq M.predicted among blacks MDRD (S/P/Bld) [Vol rate/Area] 100 mL/min/{1.73_m2} ml/min/1.73sq .m [facility] GFR/1.73 sq M.predicted among non-blacks MDRD (S/P/Bld) [Vol rate/Area] 82 mL/min/{1.73_m2} ml/min/1.73sq .m [facility] Glucose post fast [Mass/Vol] 104 mg/dL High [facility] Comment on above: NORMAL <100 mg/dL PREDIABETES 101-126 mg/dL DIABETES 126 mg/dL or higher Interpretation and review of laboratory results Abnormal [facility] Phosphate [Mass/Vol] 2.0 mg/dL Low [facility] Potassium [Moles/Vol] 3.5 mmol/L [facility] Sodium [Moles/Vol] 136 mmol/L [facility] Urea nitrogen [Mass/Vol] 12 mg/dL [facility] SEDIMENTATION RATE, AUTOMATE Don 08-01-2021 ESR (Bld) [Velocity] 21 mm/h High [facility] Interpretation and review of laboratory results Abnormal [facility] STREP PNEUMONIAE ANTIGEN, UR INEon 08-01-2021 S. pneumoniae Ag Ql (U) Negative NEGATIVE [facility] US DUPLEX EXTREMITY DVT BILA TERALon 08-01-2021 [...] the lower extremity veins on either side. [facility] C REACTIVE PROTEINon 022 CRP [Mass/Vol] 60.2 mg/L High 0 - 10.0 MG/L [facility] CBC, EDIF, PLATELETon 2021 ABSOLUTE BASOPHIL COUNT 0.0 10*3/uL 0.0 - 0.2 10*3/uL [facility] Basophils/100 WBC (Bld) 0.3 % 0.0 - 2.0 % [facility] Differential cell count method Nom (Bld) AUTO DIFF % [facility] Eosinophils (Bld) [#/Vol] 0.00 10*3/uL 0.0 - 0.7 10*3/uL [facility] Eosinophils/100 WBC (Bld) 0.2 % 0.0 - 11.0 % [facility] Erythrocyte distribution width (RBC) [Ratio] 13.2 % 11.5 - 14.5 % [facility] Hematocrit (Bld) [Volume fraction] 43.0 % 42.0 - 52.0 % [facility] Hemoglobin (Bld) [Mass/Vol] 14.9 g/dL [facility] Interpretation and review of laboratory results Abnormal [facility] Lymphocytes (Bld) [#/Vol] 0.50 10*3/uL Low 1.2 - 3.4 10*3/uL [facility] Lymphocytes/100 WBC (Bld) 11.2 % Low 20.0 - 55.0 % [facility] MCH (RBC) [Entitic mass] 31.5 pg 26.0 - 35.0 PG [facility] MCHC (RBC) [Mass/Vol] 34.7 g/dL [facility] MCV (RBC) [Entitic vol] 90.9 fL [facility] Monocytes (Bld) [#/Vol] 0.5 10*3/uL 0.0 - 0.7 10*3/uL [facility] Monocytes/100 WBC (Bld) 11.3 % High 0.0 - 10.0 % [facility] Neutrophils (Bld) [#/Vol] 3.7 10*3/uL 1.4 - 6.5 10*3/uL [facility] Neutrophils/100 WBC (Bld) 77.0 % High 37.0 - 75.0 % [facility] Platelet mean volume (Bld) [Entitic vol] 8.1 fL [facility] Platelets (Bld) [#/Vol] 188 10*3/uL 130.0 - 400.0 10*3/uL [facility] RBC (Bld) [#/Vol] 4.73 10*6/uL 4.0 - 6.1 10*6/uL [facility] WBC (Bld) [#/Vol] 4.8 10*3/uL 3.6 - 11.0 10*3/uL [facility] COMPREHENSIVE METABOLIC PANE Karri 07-31-2021 Albumin [Mass/Vol] 3.4 G/dl Low 3.5 - 5.0 G/dl [facility] Albumin/Globulin [Mass ratio] 0.9 {ratio} Low [facility] ALP [Catalytic activity/Vol] 96 U/L [facility] ALT [Catalytic activity/Vol] 28 U/L [facility] AST [Catalytic activity/Vol] 30 U/L [facility] Bilirubin [Mass/Vol] 0.6 mg/dL [facility] Calcium [Mass/Vol] 8.6 mg/dL [facility] Chloride [Moles/Vol] 99 mmol/L [facility] CO2 [Moles/Vol] 22 mmol/L [facility] Creatinine [Mass/Vol] 1.00 mg/dL [facility] GFR COMMENT Average GFR for 70+ years old = 75. [facility] Comment on above: Chronic Kidney disea se, GFR = <60. Kidney failure, GFR = <15. The GFR estimate is not adjusted for extreme body surface area or acute process, nor has it been validated for women or ethnic groups other than and . GFR/1.73 sq M.predicted among blacks MDRD (S/P/Bld) [Vol rate/Area] 95 mL/min/{1.73_m2} ml/min/1.73sq .m [facility] GFR/1.73 sq M.predicted among non-blacks MDRD (S/P/Bld) [Vol rate/Area] 79 mL/min/{1.73_m2} ml/min/1.73sq .m [email or web address] Glucose post fast [Mass/Vol] 103 mg/dL High [email or web address] Comment on above: NORMAL <100 mg/dL PREDIABETES 101-126 mg/dL DIABETES 126 mg/dL or higher Potassium [Moles/Vol] 3.4 mmol/L Low [email or web address] Protein [Mass/Vol] 7.4 g/dL [facility] Sodium [Moles/Vol] 135 mmol/L Low [email or web address] [employer]Current Urea nitrogen [Mass/Vol] 12 mg/dL [email or web address] CT PE STUDYon 07-31-2021 IMPRESSION: 1. [...] the liver and left kidney, probably cysts. [facility] Radiology Study observation (narrative) [facility] CT PE STUDYOrdered By: Martin Rice on 07-31-2021 [facility] Work Phone: D-DIMER,QUANTITATIVEon 07-31 Fibrin D-dimer FEU (PPP) [Mass/Vol] 1.95 Critically high <0.50 mg/L FEU [facility] Comment on above: If result is greater than the cutoff value of 0.50 mg/L then the potential for PE or DVT exists. Other conditions exist which may cause a falsely elevated level. Please correlate clinically, including radiological findings and other clinical parameters. Result called to read back by: Kareen COSBY 07/31/2021 @ 12:20 by PMS Interpretation and review of laboratory results Abnormal [facility] ECG (SCANNED)Ordered By: Mirlande Doherty on 07-31-2021 [facility] INFLUENZA A AND B, PCRon FLUAV and FLUBV Ag IF Nom (Unsp spec) Negative NEGATIVE [facility] FLUBV Ag IA Ql (Unsp spec) Negative NEGATIVE [facility] Comment on above: TESTING PERFORMED BY [place] [facility] NOVEL CORONAVIRUS LAB 1 - NA SOPHARYNGEALon 07-31-2021 NARRATIVE -1 This test was performed using isothermal [place] and has been approved as Emergency Use Authorization (EUA) for the qualitative detection [id number] nucleic acid. [facility] SARS-CoV-2 (COVID-19) RNA [place]+probe Ql (Unsp spec) Not detected NOT DETECTED [facility] Comment on above: Negative results do not [...] patient is critically ill or clinically deteriorating. [facility] No Panel Informationon 07-31 Interpretation and review of laboratory results Abnormal [facility] PROTIME-INRon 07-31-2021 INR Coag (PPP) [Relative time] 1.17 {INR} High [facility] Comment on above: 2.0-3.0 THERAPEUTIC RANGE 2.5-3.5 MECHANICAL VALVE RANGE Interpretation and review of laboratory results Abnormal [facility] PT Coag (PPP) [Time] 15.1 s [facility] SCREEN: MRSA ONLY, NARES (IS OLATION SCREEN)on 07-31-2021 MRSA isol Org specific cx Ql (Nose) Not detected NOT DETECTED [facility] STAPHYOCOCCUS AUREUS BY PCR Not detected NOT DETECTED [facility] SEDIMENTATION RATE, AUTOMATE Don 07-31-2021 ESR (Bld) [Velocity] 44 mm/h [facility] Interpretation and review of laboratory results Abnormal [facility] TROPONIN I, HIGH SENSITIVITY on 07-31-2021 TROPONIN I, HIGH SENSITIVITY 16 pg/mL 0 - 20 pg/mL [facility] Comment on above: Indeterminant: >12 to 100 pg/mL female >20 to 100 pg/mL male Indicative of myocardial injury. Serial sampling is recommended, a change of greater than or equal to 20 pg/mL is indicative of acute coronary syndrome. [facility] TROPONIN I, HIGH SENSITIVITY 8 pg/mL 0 - 20 pg/mL [facility] Comment on above: Indeterminant: >12 to 100 pg/mL female >20 to 100 pg/mL male Indicative of myocardial injury. Serial sampling is recommended, a change of greater than or equal to 20 pg/mL is indicative of acute coronary syndrome. [facility] US DUPLEX EXTREMITY DVT BILA TERALon 07-31-2021 Radiology Study observation (narrative) [facility] VITAMIN D (25-HYDROXY,TOTAL) on 07-31-2021 25-hydroxyvitamin D [Mass/Vol] 15.3 Low >30 NG/ML [facility] Comment on above: DEFICIENT <20 NG/ML INSUFFICIENT 20-<30 NG/ML SUFFICIENT 30-100 NG/ML POTENTIAL TOXICITY >100 NG/ML Interpretation and review of laboratory results Abnormal [facility] Vital Signs Date Time Vital Sign Value Performing Clinician Facility 12-21-2023 14:00-0400 Diastolic blood pressure 75 mm[Hg] Lopez Munson MD Work Phone: [facility] 12-21-2023 14:00-0400 Heart rate 71 /min Lopez Munson MD Work Phone: [facility] 12-21-2023 14:00-0400 Respiratory rate 22 /min Lopez Munson MD Work Phone: [facility] 12-21-2023 14:00-0400 SaO2% (BldA) [Mass fraction] 93 % Lopez Munson MD Work Phone: [facility] 12-21-2023 14:00-0400 Systolic blood pressure 134 mm[Hg] Lopez Munson MD Work Phone: [facility] 12-21-2023 00:35-0400 Body height 182.9 cm Lopez Munson MD Work Phone: [facility] 12-21-2023 00:35-0400 Body mass index (BMI) [Ratio] 26.11 kg/m2 Lopez Munson MD Work Phone: [facility] 12-21-2023 00:35-0400 Body weight 87.32 kg Lopez Munson MD [email or web address] Comment on above: bed scale room 2 12-21-2023 00:34-0400 Body temperature 97.81 [degF] Lopez Munson MD Work Phone: [facility] 12-07-2023 04:07-0400 Diastolic blood pressure 72 mm[Hg] Tonny Singh MD Work Phone: 5(627)[phone] [place] [address] 12-07-2023 04:07-0400 Heart rate 78 /min Tonny Singh MD Work Phone: 9(645)[phone] [place] [address] 12-07-2023 04:07-0400 Respiratory rate 18 /min Tonny Singh MD Work Phone: 3(336)[phone] [place] [address] 12-07-2023 04:07-0400 SaO2% (BldA) [Mass fraction] 93 % Tonny Singh MD Work Phone: 4(227)527-727549 [place] [address] 12-07-2023 04:07-0400 Systolic blood pressure 110 mm[Hg] Tonny Singh MD Work Phone: 3(963)[phone] [place] [address] 12-07-2023 00:46-0400 Body mass index (BMI) [Ratio] 26.22 kg/m2 Tonny Singh MD Work Phone: 5(551)399-911549 [place] [address] 12-07-2023 00:46-0400 Body weight 87.68 kg Tonny Singh MD Work Phone: 8(996)[phone] [place] [address] 12-07-2023 00:45-0400 Body temperature 98.1 [degF] Tonny Singh MD Work Phone: 9(134)[phone] [place] [address] 08-23-2023 20:26-0500 Diastolic blood pressure 60 mm[Hg] Marisa Overton MD Work Phone: [facility] 08-23-2023 20:26-0500 Heart rate 82 /min Marisa Overton MD Work Phone: [facility] 08-23-2023 20:26-0500 Respiratory rate 16 /min Marisa Overton MD Work Phone: [facility] 08-23-2023 20:26-0500 SaO2% (BldA) [Mass fraction] 94 % Marisa Overton MD Work Phone: [facility] 08-23-2023 20:26-0500 Systolic blood pressure 137 mm[Hg] Marisa Overton MD Work Phone: [facility] 08-23-2023 20:10-0500 Body temperature 98.2 [degF] Marisa Overton MD Work Phone: [facility] 08-23-2023 16:56-0500 Body mass index (BMI) [Ratio] 25.81 kg/m2 Marisa Overton MD Work Phone: [facility] 08-23-2023 16:56-0500 Body weight 86.32 kg Marisa Overton MD Work Phone: [facility] 08-02-2021 11:59-0500 Body temperature 97.59 [degF] Kraig Trevino MD Work Phone: [facility] 08-02-2021 11:59-0500 Diastolic blood pressure 67 mm[Hg] Kraig Trevino MD Work Phone: [facility] 08-02-2021 11:59-0500 Heart rate 92 /min Kraig Trevino MD Work Phone: [facility] 08-02-2021 11:59-0500 Respiratory rate 18 /min Kraig Trevino MD Work Phone: [facility] 08-02-2021 11:59-0500 SaO2% (BldA) [Mass fraction] 92 % Kraig Trevino MD Work Phone: [facility] 08-02-2021 11:59-0500 Systolic blood pressure 128 mm[Hg] Kraig Trevino MD Work Phone: [facility] 08-02-2021 04:12-0500 Body mass index (BMI) [Ratio] 27.37 kg/m2 Kraig Trevino MD Work Phone: [facility] 08-02-2021 04:12-0500 Body weight 91.54 kg Kraig Trevino MD Work Phone: [facility] 08-01-2021 10:03-0500 Body height 182.9 cm Kraig Trevino MD Work Phone: [facility] Encounters Encounter Date Encounter Type Care Provider Facility Start: 02-01-2024 ambulatory DEZ M MICHAEL Davidta [facility] Start: 01-23-2024 ambulatory KRANTHI EDGAR II [facility] Start: 01-23-2024 End: 01-23-2024 Subsequent hospital visit by physician Kranthi Edgar MD Work Phone: [facility] Field Radio Technician Comment on above: Arrived Start: 12-27-2023 ambulatory LOPEZ MUNSON [facility] Start: 12-21-2023 End: 12-21-2023 Emergency department patient visit Lopez Munson MD Work Phone: [facility] Start: 12-07-2023 End: 12-07-2023 Emergency department patient visit Tonny Singh MD Work Phone: [facility] Emergency Department Start: 10-31-2023 ambulatory DEZ Davidta [facility] Start: 10-31-2023 End: 10-31-2023 Subsequent hospital visit by physician Dez Bhagat MD Work Phone: [facility] Nuclear Medicine Comment on above: Arrived Start: 08-23-2023 End: 08-23-2023 Emergency department patient visit Marisa Overton MD Work Phone: [facility] Emergency Department Start: 05-11-2023 ambulatory DEZ Davidta [facility] Start: 05-11-2023 End: 05-11-2023 Subsequent hospital visit by physician Dez Bhagat MD Work Phone: [facility] CT Scan Comment on above: Arrived Start: 04-28-2023 ambulatory DEZ Davidta [facility] Start: 04-10-2023 ambulatory DEZ Davidta [facility] Start: 04-10-2023 End: 04-10-2023 Subsequent hospital visit by physician Dez Bhagat MD Work Phone: [facility] Ultrasound Comment on above: Arrived Start: 03-23-2023 ambulatory DEZ Davidta [facility] Start: 11-23-2022 End: 11-23-2022 ambulatory SAMANTHA BUTLER Facility:[facility] Start: 08-11-2022 End: 08-15-2022 Evaluation and management of inpatient DR DEZ BHAGAT . Facility:[facility] Start: 06-15-2022 End: 06-18-[address] DEZ BHAGAT . Facility:[facility] Start: 10-21-2021 End: 10-21-2021 Subsequent hospital visit by physician Dez Bhagat MD Work Phone: [facility] Ultrasound Comment on above: Arrived Start: 09-29-2021 End: 09-29-2021 Subsequent hospital visit by physician Dez Bhagat MD Work Phone: [facility] Diagnostic Radiology Comment on above: Arrived Start: 07-31-2021 End: 08-02-2021 Emergency department patient visit Kraig Trevino MD Work Phone: [facility] Med Surg Comment on above: Multifocal pneumonia Start: 09-14-2017 End: 09-15-2017 Ambulatory DEFAULT PHYSICIAN Facility:[facility] Procedures Date Procedure Procedure Detail Performing Clinician [...] MD Work Phone: Start: 08-02-2021 C-reactive protein [facility] sydney Kiko PA-C Work Phone: Start: 08-02-2021 Complete blood count with white cell differential, automated Huan Hoover PA-C Work Phone: Start: 08-02-2021 Renal function panel De kai Kiko PA-C Work Phone: Start: 08-01-2021 Iaad ia mult step me thod nos each organism Huan Hoover PA-C Work Phone: Start: 08-01-2021 C-reactive protein [facility] sydney Kiko PA-C Work Phone: Start: 08-01-2021 Renal function panel De kai Kiko PA-C Work Phone: Start: 07-31-2021 Assay of troponin quantitative Osmin Luna MD Work Phone: Start: 07-31-2021 Dup-scan xtr veins c omplete bilateral study [place] Kiko PA-C Work Phone: Start: 07-31-2021 Cultyp [...] Detail Author Start: 02-25-2024 Influenza vaccination A [facility] Start: 02-01-2024 End: 02-01-2024 Patient encounter procedure 02/01/2024 1:20 PM EDT Office Visit [facility] [address] [place] [address] Kranthi Edgar II, MD [address] [place] [address] [facility] Start: 02-24-2023 COVID-19 VACCINE ( season) COVID-19 VACCINE ( season) [facility] Start: 02-24-2023 Influenza vaccination INFLUENZA VACC INE (#1) [facility] Start: 02-24-2022 Influenza vaccination INFLUENZ A VACCINE (Season Ended) [facility] Start: 02-24-2021 Influenza vaccination INFLUENZA VACC INE (#1) [facility] Start: 2015 Abdominal aortic aneurysm screening ABDOMINAL AORTIC ANEURYSM HIGH RISK SCREEN [facility] Start: 2015 Pneumococcal vaccination PNEUMOCOCCAL VACCINE SERIES (1 of 1 - PPSV23) [facility] Start: 2000 Prostate specific antigen measurement PROSTATE CANCER SCREENING DISCUSSION [facility] Start: 2000 Zoster vaccine hzv l ely for subcutaneous use ZOSTER (SHINGLES) VACCINE (1 of 2) [facility] Start: 1995 Colonoscopy COLORECTAL CAN CER SCREENING DISCUSSION [facility] Start: 1995 Screening for malign ant neoplasm of colon COLORECTAL CANCER SCREENING DISCUSSION [facility] Start: 1990 Fasting lipid profile LIPID SCREENIN G [facility] Start: 1990 Lipid panel LIPID SCREENING [facility] Start: 1969 Third diphtheria, tetanus and acellular pertussis (DTaP) vaccination TDAP (ADULT) [facility] Start: 1968 Tetanus vaccination TETANUS [facility] Start: 1956 Pneumococcal vaccination [facility] Start: 1955 COVID-19 VACCINE (#1) COVID-19 VACCI NE (#1) [facility] Start: 1955 COVID-19 VACCINE (1) COVID-19 VACCIN E (1) [facility] Start: 02-14-1951 COVID-19 VACCINE (#1) COVID-19 VACCI NE (#1) [facility] Start: 1950 Hepatitis C antibody , confirmatory test HEPATITIS C VIRUS SCREENING [facility] Start: 1950 Hepatitis C screening HEPATITI S C VIRUS SCREENING [facility] Start: 1950 Tetanus vaccination TETANUS [facility] Bacteria identified in Blood by Culture [facility] End: 10-31-2023 [employer]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 [facility] [facility] - [facility] ECG Routine Dyspnea, unspecified type 1 Occurrences starting 10/31/2023 until 10/31/2023 [facility] Work Phone: Comment on above: 1 Occurrences starti ng 10/31/2023 until 10/31/2023 End: 07-31-2021 Standard ECG ECG ECG STAT One Time for 1 Occurrences starting 07/31/2021 until 07/31/2021 [facility] Comment on above: One Time for 1 Occur rences starting 07/31/2021 until 07/31/2021 End: 08-23-2023 Standard ECG ECG ECG STAT One Time for 1 Occurrences starting 08/23/2023 until 08/23/2023 [facility] Comment on above: One Time for 1 Occur rences starting 08/23/2023 until 08/23/2023 Standard ECG ECG ECG Routine 12/07/2023 12:39 AM EDT [facility] Standard ECG ECG ECG STAT 12:22 AM T [facility] End: 01-23-2024 US.doppler Carotid arteries - bilateral [facility] Work Phone: Comment on above: 1 Occurrences starti ng 01/23/2024 until 01/23/2024 Payers Date Payer Category Payer Medicare [employer] HMO PPO [id number] 2021-Present [address] [place] [address] [id number] 2019 Medicare MEDICARE ANTHEM HMO OR PPO MEDICARE AN[employer]M HMO OR PPO [id number] 2019-Present [address] [place] [address] [id number] 1959 Medicare [id number] 1950 Unknown [id number] 1950 Unknown [id number] 2.16.840.1.166755.3.579.2.593 1950 Unknown [id number] 2.16.840.1.288658.3.579.2.593 1950 Unknown [id number] 2.16.840.1.997266.3.579.2.983 1950 Unknown [id number] 2.16.840.1.221107.3.579.2.983 1950 Unknown [id number] 2.16.840.1.281105.3.579.2.983 1950 Unknown [id number] 2.16.840.1.693020.3.579.2.983 1950 Unknown [id number] 2.16.840.1.909162.3.579.2.983 1950 Unknown [id number] 2.16.840.1.352406.3.579.2.983 1950 Unknown [id number] 2.16.840.1.156108.3.579.2.983 1950 Unknown [id number] 2.16.840.1.417572.3.579.2.983 1950 Unknown [id number] 2.16.840.1.985353.3.579.2.983 1950 Unknown [id number] 2.16.840.1.947388.3.579.2.983 1950 Unknown [id number] 2.16.840.1.826962.3.579.2.983 1950 Unknown [id number] 2.16.840.1.909541.3.579.2.983 1950 Unknown [id number] 2.16.840.1.833112.3.579.2.983 1950 Unknown [id number] 2.16.840.1.617702.3.579.2.983 1950 Unknown [id number] 2.16.840.1.141449.3.579.2.983 Unknown Social History Date Type Detail Facility Start: 07-31-2021 End: 08-23-2023 Tobacco smoking status NHIS Smokes tobacco daily [facility] Start: 07-31-2021 End: 08-23-2023 Tobacco use and exposure Smokeless tobacco non-user [facility] Start: 07-31-2021 End: 12-27-2023 Alcohol intake Lifetime non-drinker (finding) [facility] Start: 07-31-2021 History SDOH Alcohol Frequency 1 [facility] Start: 1950 Sex Assigned At Not on file A [facility] Exposure to SARS-CoV -2 (event) Yes [facility] History of tobacco use Cigarette Smoker A [facility] Start: 08-19-2022 End: 12-27-2023 Cigarettes smoked current (pack per day) - Reported 1 [facility] Start: 08-19-2022 End: 12-27-2023 Tobacco use panel [facility] Clinical Notes 07-31-2021 to 12-21-2023 Discharge InstructionsAttachmentsLopez [...] through Care Everywhere.Pain and Pain Control ([facility]) ([place])Chest Pain ([place]ankan)Chronic Obstructive Pulmonary Disease (COPD) ([facility]) ([place])documented in this encounter [facility] 12-21-2023 Physician Emergency department Note Emergency Room Note [facility] EMERGENCY DEPARTMENT Service Date:.12/21/23 PCP: Dez Bhagat [...] Sinus rhythm at 84 beats per minute. Tabor is normal. NE interval is 146 milliseconds. QRS duration is [...] information. . Lopez Munson MD 12/21/23 0223 [facility] 12-21-2023 Emergency department Note Emergency Room Note [facility] EM[facility] Service Date:.12/21/23 PCP: Dez Bhagat [...] Sinus rhythm at 84 beats per minute. Tabor is normal. NE interval is 146 milliseconds. QRS duration is [...] MD 12/21/23 0223 documented in this encounter [facility] 12-07-2023 Physician Emergency department Note Emergency Department Report [facility] EM[facility] Service Date:.12/07/23 PCP: Dez Bhagat [...] Use Authorization (EUA) for the qualitative detection udYXBF-ObP-3 nucleic acid. TROPONIN I, HIGH SENSITIVITY Result [...] rhythm, ventricular rate 90 beats per minute, NE interval 134 milliseconds, QRS duration 80 millisecond, [...] . . Tonny Singh MD 12/07/23 0526 [facility] 12-07-2023 Emergency department Note Emergency Department Report [facility] EMERGENCY [facility] Service Date:.12/07/23 PCP: Dez Bhagat [...] Use Authorization (EUA) for the qualitative detection kmBWQA-VpZ-9 nucleic acid. TROPONIN I, HIGH SENSITIVITY Result [...] rhythm, ventricular rate 90 beats per minute, NE interval 134 milliseconds, QRS duration 80 millisecond, [...] at this time. documented in this encounter [facility] 12-07-2023 Emergency department Note Respiratory called at this time. [facility] 08-23-2023 Emergency department Note Pt alert, oriented, NAD, pt discharge instructions reviewed, follow up care encouraged, pt wheeled into RM 15 with pt family member, room air. [facility] 08-23-2023 Emergency department Note Pt alert, oriented, [...] given to YOLY Pettit Emergency Department Report [facility] EMERGENCY [facility]PARTMENT Service Date:.08/23/23 PCP: Dez Bhagat [...] Use Authorization (EUA) for the qualitative detection bsFRJL-HzD-2 nucleic acid. CBC, EDIF, PLATELET Result Value [...] STEMI rate of 73 beats per minute. NE interval 130 milliseconds. When compared to most [...] MD 08/23/23 1810 documented in this encounter [facility] 08-23-2023 Emergency department Note Patient alerta nd eating on the bed, awaiting dc [facility] 08-23-2023 Physician Emergency department Note Took over [...] exacerbation of COPD. Paul Tovar MD 08/23/231947 [facility] 08-23-2023 Emergency department Note Report given to YOLY Pettit [facility] 08-23-2023 Physician Emergency department Note Emergency Department Report [facility] EM[facility]ENCY [facility]PART[facility] Service Date:.08/23/23 PCP: Dez Bhagat [...] Use Authorization (EUA) for the qualitative detection ztIXUD-FqX-6 nucleic acid. CBC, EDIF, PLATELET Result Value [...] STEMI rate of 73 beats per minute. NE interval 130 milliseconds. When compared to most [...] above information. . Marisa Overton MD 08/23/231809 [employer] Work Phone: 08-02-2021 Miscellaneous Notes Discharge education [...] at this time. documented in this encounter [facility] 08-02-2021 Hospital Discharg e instructions Huan Hoover PA-C - 08/02/2021 2:41 PM EST AAT Huan Hoover PA-C - 08/02/2021 2:41 PM EST AAT The following attachments cannot be sent through Care Everywhere.Coronavirus Disease (COVID-19): Caring for Yourself: Quick List ([place]an)documented in this encounter [facility] 08-02-2021 Hospital course Narrative Images from the original note were not included. Discharge Summary Summary Time: 08/02/21 2:41 PM Name: Raul Menon Age: 70 y.o. Birthday: 1950 Admit Date: 07/31/2021 11:23 AM Discharge Date: 08/02/2021 Brief Summary of Hospital Course: Patient is a 70 y.o. male presents to [facility] for evaluation of shortness of breath. Patient [...] tolerated. Discharge Follow-up: Dez Bhagat MD [address] [facility] [id number] In 1 week Stefan Tovar MD [address] [facility] [id number] In 1 week Discharge Disposition: Patient will be discharged in stable condition. Discharge Time: Including assessment, planning, and medication reconciliation was greater than 35 min. Huan Hoover PA-C completing Discharge Summary for Dr. Luna Please note portions of this note utilized CeloNova dictation software, please excuse any typographical or [...] clarification. Osmin Luna, MDdocumented in this encounter [facility] 08-02-2021 History of Presen t illness Narrative [...] with good technique with good eccentric control. STAMP REDEMPTION CLERK provided pt with handout for seated HEP with pt demonstrating a good understanding. Advised pt to continue to walk periodically throughout the day to improve endurance and overall lung function. Pt remained sitting in bedsdie chair with call light left within reach. Transfer Skill: Sit To Stand, Rehab Eval [place] (Sit-Stand Transfers) independent Physical Assist/Nonphysical Assist: Sit/Stand 1 person assist Weight-Bearing Restrictions: Sit/Stand full weight-bearing Assistive Device For Transfer: Sit/Stand (none used) Gait Skills, PT Eval Level of [place]: Gait stand-by assist Physical Assist/Nonphysical Assist: Gait supervision Assistive Device For Transfer: Gait (Pt holding onto IV pole) Gait Distance (Approx 70ft total) Gait Analysis, PT Eval Gait Pattern Used swing-through gait Plan Plan for next visit Cont with LE strengthening ex, endurance, and mobility if pt not discharged Maintain frequency yes COTTON PROGRAM TECHNICIAN spoke with patient to discuss discharge plans. [...] Information Source Information Source patient Contact Information Steel Pourer/SW Added to Care Team Yes This Mortgage Loan Interviewer is Primary Steel Pourer/SW Yes Social Work Contact Name Medina Dotson Bulk Mail Clerk's Living Environment Lives With spouse;child(rebecca), adult (Son [...] busses, drives busses, and preaches at the Retirement. Previous Level of Function Ambulation Skills independent [...] Supine to Sit, Rehab Eval Level of [place]: Supine/Sit independent Transfer Skill: Sit To Stand, Rehab Eval [place] (Sit-Stand Transfers) independent Gait Skills, PT Eval Level of [place]: Gait independent Physical Assist/Nonphysical Assist: Gait supervision [...] chart. Discharge Recommendations home with spouse at [facility] Clinical Impression Criteria for Skilled Therapeutic Interventions [...] HR with activity Therapist Information License # [id number] Dedra Boles PT 08/01/21 0926 Time In/Out [...] AROM WFL Manual Muscle Testing (MMT) Hand Treatment Supervisor, Right strong Hand Treatment Supervisor, Left strong Skin Integrity Skin Integrity Description Bruising Edema Edema none noted Bed Mobility Skill: Supine to Sit, Rehab Eval Level of [place]: Supine/Sit supervision Physical Assist/Nonphysical Assist: Supine/Sit verbal cues;1 person assist Transfer Skill: Sit to Stand, Rehab Eval Level of [place]: Sit/Stand supervision Physical Assist/Nonphysical Assist: Sit/Stand 1 person assist Weight-Bearing Restrictions: Sit/Stand full weight-bearing Transfer Skill: Stand to Sit, Rehab Eval Level of [place]: Stand/Sit supervision Physical Assist/Nonphysical Assist: Stand/Sit verbal [...] UB strengtheing HEP Therapist Information License # [id number] Pt. Will complete all toileting tasks (clothing management, hygiene, trasnfer) with [place] Pt. Will complete UB/ LB dressing with [place] Pt. Will complete UB/ LB bathing with [place] Pt. Will complete G/H tasks standing at sink x10 minutes with good balance at NY OT will create a UB HEP with 100% reverse demonstration noted documented in this encounter [facility] 08-01-2021 History and physical note History and Physical Examination 08/01/21 1:42 PM Chief Complaint: Shortness of Breath History of Present Illness: Patient is a 70 y.o. male presents to [facility] for evaluation of shortness of breath. Patient [...] Please note Portions of this note utilized CeloNova dictation software, please excuse any typographical or grammatical errors [facility] Medicine Associated attestation - Osmin Luna [...] clarification. Osmin Luna, MDdocumented in this encounter [facility] 07-31-2021 Emergency department Note Clarissa from [facility] called. Patient is admitted to room number 3755 under OBS. Room is ready. RN. Notified. Called Dr. Luna for Garland BROWN. Ambulated length of bethea and back to room. O2 sat 95% baseline to 91% during ambulation. Tachypneic during ambulation. Emergency Department Report [facility] MED SURG Service Date:.07/31/21 PCP: Dez Bhagat [...] Negative Romberg and negative pronator drift. Musculoskeletal: apprentice jockey strength 2+ the upper extremities. Dorsiflexion and [...] Use Authorization (EUA) for the qualitative detection [id number]-[id number]-6 nucleic acid. CBC, EDIF, PLATELET Result Value [...] : 76 AXIS : Normal INTERVALS : NE interval [address] SEGMENT CHANGES : None COMPARISON TO PRIOR : none SUMMARY : No acute ST segment elevation NY on this EKG per Dr. Trevino and [...] the bed coordinator as well as the supervisor photostat. I will arrange hospitalization for this patient. [...] above information. . John Edwards PA-C 07/31/21 6752 documented in this encounter [facility] Evaluation note Diagnosis Multifocal pneumonia- Primary Chronic obstructive pulmonary disease with acute exacerbation Obstructive chronic bronchitis with exacerbation Tobacco abuse Tobacco use disorder Hypoalbuminemia Other disorders of plasma protein metabolism Vitamin D deficiency Unspecified vitamin D deficiency [facility] Diagnosis Pulmonary emphysema, unspecified emphysema type [facility]* Diagnosis Abdominal pain, right upper quadrant [facility] Diagnosis Neck mass Swelling, mass, or lump in head and neck [facility] Diagnosis Chronic obstructive pulmonary disease, unspecified COPD type- Primary documented [facility] encounter [facility] [place] [facility]* Diagnosis Dyspnea, unspecified type documented in this encounter [facility] note* Diagnosis Dyspnea, unspecified type documented in this encounter [facility] note* Diagnosis Shortness of breath- Primary Cellulitis of left upper extremity Cellulitis and abscess of upper arm and forearm documented in this encounter [facility] note* Diagnosis Chest pain, unspecified type- Primary Chronic obstructive pulmonary disease, unspecified COPD type documented in this encounter [facility] note* Diagnosis Syncope and collapse- Primary Dizziness and giddiness documented in this encounter [facility] note* Diagnosis Precordial pain Palpitations Shortness of breath Syncope and collapse PAT (paroxysmal atrial tachycardia) Paroxysmal supraventricular tachycardia Atrial premature contractions Supraventricular premature beats Ventricular premature contractions Other premature beats NSVT (nonsustained ventricular tachycardia) Paroxysmal ventricular tachycardia documented in this encounter [facility] note* Diagnosis Syncope and collapse Dizziness and giddiness documented in this encounter [facility] Discharge instructions* Attachments The following attachments cannot be sent through Care Everywhere. * [facility] and [facility] Control ([facility]) ([place]) [facility] Attachments The following attachments cannot be sent through Care Everywhere. * Pain and Pain Control ([facility]) ([place]) * Chronic Obstructive Pulmonary Disease (COPD) ([facility]) ([place]) documented in this [facility] Discharge instructions* Attachments The following attachments cannot be sent through Care Everywhere. * Pain and Pain Control ([facility]) ([place]) * Cellulitis ([place]an) * SOB (Shortness of Breath) ([place]) [facility] Consultation (Urgent) - New Request Specialty Diagnoses / Procedures Referred By Sharda schwartz Referred To Contact Cardiovascular Medicine Diagnoses Chest pain, unspecified type Chronic obstructive pulmonary disease, unspecified COPD type Lopez Munson MD [address] [place] [id number] David Yepez DO [address] [place] [address] Referral ID Status Reason Start Date Expiration Date V isits Requested Visits Authorized [id number] New Request 12/21/2023 01/14/2025 1 1 * Radiology (Emergency) - New Request Specialty Diagnoses / Procedures Referred By Contac t Referred To Contact Procedures Lopez Koch MD [address] [place] [address] Referral ID Status Reason Start Date Expiration Date V isits Requested Visits Authorized [id number] New Request 12/21/2023 01/14/2025 1 1 [facility] Summary Purpose Family History No Family History [...] Procedures INPATIENT ADMISSION NOTIFICATION Osmin Luna MD [address] [place] [address] Referral ID Status Reason Start Date Expiration Date V isits Requested Visits Authorized [id number] New Request 07/31/2021 08/25/2022 1 1 Specialty Diagnoses / Procedures Referred By Contac t Referred To Contact Procedures ECG John Edwards PA-C [address] [place] [address] Referral ID Status Reason Start Date Expiration Date V isits Requested Visits Authorized [id number] New Request 07/31/2021 08/25/2022 1 1 Specialty Diagnoses / Procedures Referred By Contac t Referred To Contact Procedures C REACTIVE PROTEIN John Edwards PA-C [address] [place] [address] Referral ID Status Reason Start Date Expiration Date V isits Requested Visits Authorized [id number] New Request 07/31/2021 08/25/2022 1 1 Specialty Diagnoses / Procedures Referred By Contac t Referred To Contact Ultrasound Diagnoses Abdominal pain, right upper quadrant Procedures US ABDOMEN RUQ/LIVER/GB Dez Bhagat MD [phone] [facility] Ultrasound [address] [place] [address] Referral ID Status Reason Start Date Expiration Date Visits Re quested Visits Authorized [id number] Closed 10/19/2021 11/13/2022 1 1 Specialty Diagnoses / Procedures Referred By Contac t Referred To Contact Diagnoses Neck mass Procedures US NECK SOFT TISSUE Dez Bhagat MD [address] [id number] [facility] Referral ID Status Reason Start Date Expiration Date Visits Re quested Visits Authorized [id number] Closed 03/23/2023 04/16/2024 1 1 Specialty Diagnoses / Procedures Referred By Contac t Referred To Contact Diagnoses Neck mass Procedures CT NECK WITH CONTRAST NE CT NECK TISSUE CONTRAST Dez Bhagat MD [address] [place] [address] [facility] Referral ID Status Reason Start Date Expiration Date Visits Re quested Visits Authorized [id number] Closed 04/28/2023 05/22/2024 1 1 Specialty Diagnoses / Procedures Referred By Contac t Referred To Contact Procedures ECG Marisa Overton MD [address] [place] [address] Referral ID Status Reason Start Date Expiration Date V isits Requested Visits Authorized [id number] New Request 08/23/2023 09/16/2024 1 1 Specialty Diagnoses / Procedures Referred By Contac t Referred To Contact Nuclear Medicine Diagnoses Dyspnea, unspecified type Procedures NUC MYOCARD PERF STRESS MIBI PHARM NE CHG MYOCARDIAL SPECT MULTIPLE STUDIES CHG MYOCARDIAL SPECT MULTIPLE STUDIES-T NE CARDIAC STRESS TST,INTERP/REPT ONLY NE CV STRS TST XERS&/OR RX CONT ECG W/O I&R Dez Bhagat MD [address] [place] [address] [facility] Nuclear Medicine [address] [place] [phone] Referral ID Status Reason Start Date Expiration Date Visits Re quested Visits Authorized [id number] Closed 10/24/2023 11/17/2024 1 1 Specialty Diagnoses / Procedures Referred By Contac t Referred To Contact Diagnoses Dyspnea, unspecified type Procedures HOLTER MONITOR - [facility] Dez Bhagat MD [address] [phone] Referral ID Status Reason Start Date Expiration Date Visits Re quested Visits Authorized [id number] Closed 10/24/2023 11/17/2024 1 1 Specialty Diagnoses / Procedures Referred By Contac t Referred To Contact Procedures ECG Tonny Singh MD [address] [place] [address] Referral ID Status Reason Start Date Expiration Date V isits Requested Visits Authorized [id number] New Request 12/07/2023 12/31/2024 1 1 Specialty Diagnoses / Procedures Referred By Contac t Referred To Contact Diagnoses Precordial pain Palpitations Shortness of breath Syncope and collapse PAT (paroxysmal atrial tachycardia) Atrial premature contractions Ventricular premature contractions NSVT (nonsustained ventricular tachycardia) Procedures ECHOCARDIOGRAM NE ECHO TTHRC R-T 2D W/WOM-MODE COMPL SPEC&COLR D Kranthi Edgar II, MD [address] [place] [address] Referral ID Status Reason Start Date Expiration Date Visits Re quested Visits Authorized [id number] Closed 12/27/2023 01/20/2025 1 1 Specialty Diagnoses / Procedures Referred By Contac t Referred To Contact Diagnoses Syncope and collapse Dizziness and giddiness Procedures VASC DUPLEX CAROTID BILATERAL NE DUPLEX SCAN EXTRACRANIAL ART COMPL BI STUDY Kranthi Edgar II, MD [address] [place] [address] Referral ID Status Reason Start Date Expiration Date Visits Re quested Visits Authorized [id number] Closed 12/27/2023 01/20/2025 1 1 Additional Source Comments (unrecognized sect ion and content) No Status Records FoundNo Status Records FoundNo Status Records FoundNo Status Records Found INFORMATION SOURCE (unrecogn ized section and content) DATE CREATED AUTHOR 12/15/[address] [facility] DATE CREATED AUTHOR AUTHOR'S ORGANIZ ATION 12/02/2022 [facility] DATE CREATED AUTHOR AUTHOR'S ORGANIZ ATION 01/25/2024 [facility] DATE CREATED AUTHOR AUTHOR'S ORGANIZ ATION 02/04/2024 [facility] Reason for Visit (unrecogniz ed section and content) Reason Comments Cough for 4-5 days. pt rep orts everyone in the family has COVID . Fever Generalized Body Aches Nausea Shortness of Breath Specialty Diagnoses / Procedures Referred By Contac t Referred To Contact Referral ID Status Reason Start Date Expiration Date Visits Re quested Visits Authorized [id number] 1 1 Specialty Diagnoses / Procedures Referred By Contac t Referred To Contact Ultrasound Diagnoses Abdominal pain, right upper quadrant Procedures US ABDOMEN RUQ/LIVER/GB Dez Bhagat MD [address] [place] [address] [facility] [address] [place] [address] Referral ID Status Reason Start Date Expiration Date Visits Re quested Visits Authorized [id number] Closed 10/19/2021 11/13/2022 1 1 Specialty Diagnoses / Procedures Referred By Contac t Referred To Contact Diagnoses Neck mass Procedures US NECK SOFT TISSUE Dez Bhagat MD [address] [place] [address] [facility] Referral ID Status Reason Start Date Expiration Date Visits Re quested Visits Authorized [id number] Closed 03/23/2023 04/16/2024 1 1 Specialty Diagnoses / Procedures Referred By Contac t Referred To Contact Diagnoses Neck mass Procedures CT NECK WITH CONTRAST NE CT NECK TISSUE CONTRAST Dez Bhagat MD [address] [place] [address] [facility] Referral ID Status Reason Start Date Expiration Date Visits Re quested Visits Authorized [id number] Closed 04/28/2023 05/22/2024 1 1 Reason Comments Shortness of Breath Cough started last W . Now C/O SOB, nausea, tachycardia with activity, and chest tightness. Specialty Diagnoses / Procedures Referred By Contac t Referred To Contact Nuclear Medicine Diagnoses Dyspnea, unspecified type Procedures NUC MYOCARD PERF STRESS MIBI PHARM NE CHG MYOCARDIAL SPECT MULTIPLE STUDIES CHG MYOCARDIAL SPECT MULTIPLE STUDIES-T NE CARDIAC STRESS TST,INTERP/REPT ONLY NE CV STRS TST XERS&/OR RX CONT ECG W/O I&R Dez Bhagat MD [address] [place] [address] [facility] Nuclear Medicine [address] [place] [phone] Referral ID Status Reason Start Date Expiration Date Visits Re quested Visits Authorized [id number] Closed 10/24/2023 11/17/2024 1 1 Specialty Diagnoses / Procedures Referred By Contac t Referred To Contact Diagnoses Dyspnea, unspecified type Procedures HOLTER MONITOR - [facility] Dez Bhagat MD [address] [place] [address] Referral ID Status Reason Start Date Expiration Date Visits Re quested Visits Authorized [id number] Closed 10/24/2023 11/17/2024 1 1 Reason Comments [...] TILT TABLE TEST Kranthi Edgar II, MD [address] [place] [address] Referral ID Status Reason Start Date Expiration Date Visits Re quested Visits Authorized [id number] Closed 12/27/2023 01/20/2025 1 1 Specialty Diagnoses / Procedures Referred By Contac t Referred To Contact Diagnoses Precordial pain Palpitations Shortness of breath Syncope and collapse PAT (paroxysmal atrial tachycardia) Atrial premature contractions Ventricular premature contractions NSVT (nonsustained ventricular tachycardia) Procedures ECHOCARDIOGRAM NE ECHO TTHRC R-T 2D W/WOM-MODE COMPL SPEC&COLR D Kranthi Edgar II, MD [address] [place] [address] Referral ID Status Reason Start Date Expiration Date Visits Re quested Visits Authorized [id number] Closed 12/27/2023 01/20/2025 1 1 Specialty Diagnoses / Procedures Referred By Contac t Referred To Contact Diagnoses Syncope and collapse Dizziness and giddiness Procedures VASC DUPLEX CAROTID BILATERAL NE DUPLEX SCAN EXTRACRANIAL ART COMPL BI STUDY Kranthi Edgar II, MD [address] [place] [address] Referral ID Status Reason Start Date Expiration Date Visits Re quested Visits Authorized [id number] Closed 12/27/2023 01/20/2025 1 1 Scheduled Active [...] 1015 1112 (Given - Provider: Shaye Davey, BROKERAGE COORDINATOR) levoFLOXacin (LEVAQUIN) 750 mg in dextrose 5% [...] 1729 (Given - Provid er: Iliana Monica, BROKERAGE COORDINATOR) Ipratropium-albuterol (DUONEB) 0.5-2.5 (3) MG/3ML nebulizer solution [...] (Not Given - Pr ovider: Shagufta Mcintyre BROKERAGE COORDINATOR - Reason: Patient/family refused)0211 (Not Given - Provider: Shagufta Mcintyre BROKERAGE COORDINATOR - Reason: Patient/family refused)[id number] (Not Given - [...] Care Teams (unrecognized sec tion and content) Angiography Nurse Relationship Specialty Start Date End Date Dez Bhagat MD [address] [facility] [place] [address] PCP - General Family Medicine 11/20/19 Angiography Nurse Relationship Specialty Start Date End Date Dez Bhagat MD [address] [facility] [place] [address] PCP - General Family Medicine 11/20/19 Angiography Nurse Relationship Specialty Start Date End Date Dez Bhagat MD [address] [facility] [place] [address] PCP - General Family Medicine 11/20/19 Angiography Nurse Relationship Specialty [place] [address] [place] [id number] PCP - General Family Medicine 11/20/19 Angiography Nurse Relationship Specialty [place] [address] [place] [id number] PCP - General Family Medicine 11/20/19 Angiography Nurse Relationship Specialty [place] [address] [place] [address] [place] [address] PCP - General Family Medicine 11/20/19 Angiography Nurse Relationship Specialty Start Date End Date Dez Bhagat MD [address] [facility] [place] [address] PCP - General Family Medicine 11/20/19 Angiography Nurse Relationship Specialty [place] [address] [place] [address] [place] [address] PCP - General Family Medicine 11/20/19 Angiography Nurse Relationship Specialty Start Date End Date Dez Bhagat MD [address] [facility] [place] [address] PCP - General Family Medicine 11/20/19 Angiography Nurse Relationship Specialty Start Date End Date Dez Bhagat MD [address] [facility] [place] [address] PCP - General Family Medicine 11/20/19 Angiography Nurse Relationship Specialty Start Date End Date Dez Bhagat MD [address] [facility] [place] [address] PCP - General Family Medicine 11/20/19 Angiography Nurse Relationship Specialty Start Date End Date Dez Bhagat MD [address] [facility] [place] [address] PCP - General Family Medicine 11/20/19 FOR [...] BE BASED ON THE PRIMARY CLINICAL RECORDS. [facility]. provides no warranty or guarantee of the accuracy or completeness of information in this document.
--- NOTE | 2024-03-22 17:04 | P.HP_ITS ---
HPI H&P: HPI History of Present Illness Chief complaint: diff breathing, COPD EXACERBATION Narrative: Patient presented to the emergency room and thinking increasing cough and shortness of breath. Feels like an acute exacerbation of his COPD. In the past when he has been this bad he is required inpatient admission for at least a day if not 3 When I saw patient up on the medical surgical floor, he has some mild conversational dyspnea and cough persisting throughout the evaluation Opioid HPI Opioid Management Most Recent Pain and Opioid Data: Last Pain Scale 6 04/21/23 09:00 Last Pain Assessment 03/22/24 17:01 Last ORT Total Score 13 03/22/24 17:01 Last ORT Risk Category High Risk 03/22/24 17:01 Review of Systems ROS Status of ROS 10 or more systems reviewed and unremark able except as noted in history and below PFSH PFS Medical History (Updated 03/22/24 @ 16:03 by KEVIN Butler) Acute exacerbation of chronic obstructive pulmonary disease ?J44.1 - Chronic obstructive pulmonary disease with (acute) exacerbation (ICD-10) Hiatal hernia ?K44.9 - Diaphragmatic hernia without obstruction or gangrene (ICD-10) Arthritis ?M19.90 - Unspecified osteoarthritis, unspecified site (ICD-10) Tuberculosis ?A15.9 - Respiratory tuberculosis unspecified (ICD-10) Blood clot in vein ?I82.90 - Acute embolism and thrombosis of unspecified vein (ICD-10) Chronic bronchitis ?J42 - Unspecified chronic bronchitis (ICD-10) Emphysema lung ?J43.9 - Emphysema, unspecified (ICD-10) COPD exacerbation ?J44.1 - Chronic obstructive pulmonary disease with (acute) exacerbation (ICD-10) Surgical History (Updated 03/22/24 @ 16:59 by Aria Barrett) Hx of removal of testicle ?Z90.79 - Acquired absence of other genital organ(s) (ICD-10) H/O vasectomy ?Z98.52 - Vasectomy status (ICD-10) Family History (Updated 03/05/23 @ 20:18 by Chela Yañez RN) Other Family history of CHF (congestive heart failure) Family history of COPD (chronic obstructive pulmonary disease) Family history of diabetes mellitus Family history of myocardial infarction Social History (Updated 03/22/24 @ 16:59 by Aria Barrett) Within the past year, how often did you have a drink containing alcohol: never Score interpretation: A score less than 4 is consistent with normal alcohol consumption. Smoking status: Current every day smoker Non-prescribed substance use: denies use Previous occupational history: retired Highest level of school completed/degree received: GED or equivalent Little interest or pleasure in doing things: not at all Feeling down, depressed, or hopeless: not at all Feel stressed/tense/nervous/anxious/difficulty sleeping: not at all Gender Identity: male Meds Home Medications and Allergies Home Medications ?Medication ?Instructions ?Recorded ?Confirmed ?Type albuterol sulfate 90 mcg/actuation 2 inh inhalation Q6H PRN shortness 03/05/23 03/22/24 History aerosol inhaler of breath or wheezing albuterol sulfate 2.5 mg/3 mL 2.5 mg inhalation Q6H PRN 04/19/23 03/22/24 History (0.083 %) solution for nebulization shortness of breath or wheezing mometasone-formoterol HFA 200 2 inh inhalation BID 04/19/23 03/22/24 History mcg-5 mcg/actuation aerosol inhaler (Dulera) theophylline 300 mg 300 mg PO TID #90 tabs 04/21/23 03/22/24 Rx tablet,extended release,12 hr Allergies Allergy/AdvReac Type Severity Reaction Status Date / Time prednisone AdvReac Severe Weakness Verified 04/19/23 16:07 vitamin C AdvReac Severe Hives Uncoded 04/19/23 16:07 Exam Constitutional Vital Signs, click to edit/add: Last Vital Signs Temp 98.1 F 03/22/24 14:36 Pulse 69 03/22/24 16:15 Resp 24 H 03/22/24 16:15 BP 134/69 03/22/24 16:15 Pulse Ox 97 03/22/24 16:15 O2 Del Method Room Air 03/22/24 15:42 Documenting provider has reviewed patient's vital signs: yes Common normals: apparent distress (Mild conversational dyspnea) Chest Common normals: inspection of chest normal and palpation of chest normal Respiratory Common normals: no use of accessory muscles; abnormal respiratory effort (Mild conversational dyspnea) and not clear to ascultation bilaterally Auscultation: rhonchi and wheezes Cardio Common normals: regular rate and regular rhythm GI Common normals: Normal to inspection, nondistended, normoactive bowel sounds present Results Labs Labs: Short CBC 03/22/24 Range/Units 14:45 WBC 7.3 (4.0-11.0) 10^3/uL Hgb 14.9 (14.0-18.0) g/dL Hct 45.4 (42.0-54.0) % Plt Count 345 (150-450) 10^3/uL BMP 03/22/24 14:45 Sodium 138 Potassium 3.9 Chloride 104 Carbon Dioxide 27.9 BUN 14.0 Creatinine 1.00 Glucose 101 Calcium 8.8 Liver Function 03/22/24 Range/Units 14:45 Total Bilirubin 0.3 (0.2-1.0) mg/dL AST 12 L (15-37) U/L ALT 20 (16-63) U/L Alkaline Phosphatase 134 H (46-116) U/L Albumin 3.5 (3.4-5.0) g/dL ABG ABG results: 03/22/24 14:45 VBG pH 7.336 VBG pCO2 49.3 Assessment and Plan Assessment and Plan (1) COPD exacerbation: (2) Acute infective exacerbation of chronic obstructive airway disease: Plan Admission findings: Respiratory distress, COVID and flu testing are pending. Resulting in acute exacerbation of his COPD. Acute exacerbation of COPD resulting in respiratory distress-likely secondary to acute bronchitis, COVID and flu testing are pending. It has been a almost a year since his last exacerbation to this degree. His lungs are very tight. IV steroids, aerosols, IV antibiotics. Try to obtain sputum culture. Hyperglycemia-worse when he is on the steroids, insulin sliding scale Admission status: Patient with acute exacerbation of COPD secondary to acute bronchitis, likely to have hyperglycemia, medically necessary treatment at this point is a 50-50 chance that it will just be 1 midnight. In the past he is either taken 1 day or 4 will see how he is when I listen to him in the morning
[2024-03-22 17:28] LABS: Lactate/Lactic Acid 1.1 mmol/L (0.4-2.0)
[2024-03-22 17:56] LABS: Theophylline 6.7 ug/mL (10.0-20.0); Troponin I High Sensitivity 4.9 pg/mL (4.0-76.1)
[2024-03-22 17:56] LABS: Influenza Virus A Antigen Negative; Influenza Virus B Antigen Negative; Internal Control Within Normal Limits
[2024-03-22 17:56] LABS: Internal Control Within Normal Limits; SARS-CoV-2 Ag NEGATIVE (NEGATIVE)
[2024-03-22 20:25] LABS: Glucometer 226 mg/dL (74-106)
[2024-03-22] MEDS: 0.9 % SODIUM CHLORIDE 250 ML 10 ML IV (20:30)
[2024-03-22] MEDS: CEFTRIAXONE 1,000 MG in 0.9 % SODIUM CHLORIDE 50 ML 100 MG IV (21:52)
[2024-03-22] MEDS: METHYLPREDNISOLONE SOD SUCC PF 125 MG/2 ML VIAL 60 MG IVP (21:52)
[2024-03-22] MEDS: THEOPHYLLINE 300 MG TAB.ER.12H PO (21:52)
[2024-03-22] MEDS: LEVOFLOXACIN IN DEXTROSE 5 % 750 MG/150 ML PREMIX 100 MG IV (21:53)
[2024-03-22] MEDS: INSULIN ASPART 300 UNIT/3 ML PEN SUBQ (21:53)
[2024-03-22] MEDS: BUDESONIDE 0.5 MG/2 ML AMPULE NEB IH (22:30)
[2024-03-23] VITALS (21 sets, daily range): BP systolic 123–143; BP diastolic 61–74; PULSE 66–112; TEMP 36.6–36.7; O2SAT 91–95
[2024-03-23] MEDS: METHYLPREDNISOLONE SOD SUCC PF 125 MG/2 ML VIAL 60 MG IVP ×4 (03:36→20:44)
[2024-03-23] MEDS: IPRATROPIUM/ALBUTEROL SULFATE 3 ML AMPUL.NEB IH ×4 (04:20→22:08)
[2024-03-23] MEDS: THEOPHYLLINE 300 MG TAB.ER.12H PO ×4 (06:24→22:11)
[2024-03-23 06:53] LABS: Basophils Percent Auto 0.2 % (0.2-2.0); Hematocrit 47.2 % (42.0-54.0); Hemoglobin 15.4 g/dL (14.0-18.0); Immature Granulocytes Abs Auto 0.04 10^3/uL (0.00-0.03); Immature Granulocytes Pct Auto 0.4 % (0.0-0.5); Lymphocytes Absolute Auto 0.8 10^3/uL (1.2-3.8); Lymphocytes Percent Auto 8.3 % (20.5-60.0); Mean Corpuscular HGB Conc 32.6 g/dL (29.9-35.2); Mean Corpuscular Hemoglobin 30.5 pg (25.9-34.0); Mean Corpuscular Volume 93.5 fL (80.0-94.0); Mean Platelet Volume 9.1 fL (9.5-13.5); Monocytes Absolute Auto 0.1 10^3/uL (0.3-0.8); Monocytes Percent Auto 0.9 % (1.7-12.0); Neutrophils Absolute Auto 8.7 10^3/uL (1.4-6.5); Neutrophils Percent Auto 90.2 % (43.0-75.0); Platelet Count 380 10^3/uL (150-450); Red Blood Count 5.05 10^6/uL (4.70-6.10); Red Cell Distribution Width 14.4 % (11.0-15.0); White Blood Count 9.7 10^3/uL (4.0-11.0)
[2024-03-23 07:12] LABS: Anion Gap 17.6; BUN Creatinine Ratio 12.8; Carbon Dioxide 19.3 mmol/L (21.0-32.0); Chloride 103 mmol/L (98-107); Estimated GFR (African America 60 (>=60); Estimated GFR (Non-African Ame 49 (>=60); Glucose 155 mg/dL (74-106); Potassium 3.9 mmol/L (3.5-5.1); Sodium 136 mmol/L (136-145)
[2024-03-23 07:26] LABS: Theophylline 6.4 ug/mL (10.0-20.0)
--- NOTE | 2024-03-23 08:35 | P.PN_ITS ---
Progress Note: Subjective Subjective Interval history: Still with persistent cough. Shortness of breath with any activity. Does not feel like he has broken through with significant improvement from the medications. Started last night. This is not uncommon for him in the past. He is either improved in 24 hours or 4 days Exam Constitutional Vital Signs, click to edit/add: Last Vital Signs Temp 97.8 F 03/23/24 08:02 Pulse 93 H 03/23/24 08:02 Resp 18 03/23/24 08:02 BP 123/71 03/23/24 08:02 Pulse Ox 93 L 03/23/24 08:02 O2 Del Method Room Air 03/23/24 08:02 Documenting provider has reviewed patient's vital signs: yes Common normals: apparent distress (Mild conversational dyspnea) Chest Common normals: inspection of chest normal and palpation of chest normal Respiratory Common normals: no use of accessory muscles; abnormal respiratory effort (Mild conversational dyspnea) and not clear to ascultation bilaterally Auscultation: rhonchi and wheezes Cardio Common normals: regular rate and regular rhythm GI Common normals: Normal to inspection, nondistended, normoactive bowel sounds present Progress Note: Objective Labs Labs: Short CBC 03/22/24 03/23/24 Range/Units 14:45 06:13 WBC 7.3 9.7 (4.0-11.0) 10^3/uL Hgb 14.9 15.4 (14.0-18.0) g/dL Hct 45.4 47.2 (42.0-54.0) % Plt Count 345 380 (150-450) 10^3/uL BMP 03/22/24 03/23/24 14:45 06:13 Sodium 138 136 Potassium 3.9 3.9 Chloride 104 103 Carbon Dioxide 27.9 19.3 L BUN 14.0 18.0 Creatinine 1.00 1.41 H Glucose 101 155 H Calcium 8.8 9.0 Liver Function 03/22/24 Range/Units 14:45 Total Bilirubin 0.3 (0.2-1.0) mg/dL AST 12 L (15-37) U/L ALT 20 (16-63) U/L Alkaline Phosphatase 134 H (46-116) U/L Albumin 3.5 (3.4-5.0) g/dL Progress Note: A&P Assessment and Plan (1) COPD exacerbation: (2) Acute infective exacerbation of chronic obstructive airway disease: Plan Admission findings: Respiratory distress, COVID and flu testing are pending. Resulting in acute exacerbation of his COPD. Acute exacerbation of COPD resulting in acute respiratory distress-likely secondary to acute bronchitis, COVID and flu testing are negative. It has been a almost a year since his last exacerbation to this degree. Lungs still very tight, rhonchi and wheezing persisting. Was due for breathing treatment when I listen to him. Theophylline level is low so we will increase dose, check level in a.m. Hyperglycemia-worse when he is on the steroids, insulin sliding scale, so far no significant increase, but maintain sliding scale Acute kidney injury-creatinine is higher today, continue with current antibiotics, monitor labs Admission status: Patient started as observation status, his history is either he is better within the first 24 hours of treatment or take 3 to 4 days. At this point he did not improve significantly. Although not hypoxic he still significant dyspnea and significant wheezing and rhonchi on lung exam. Change patient to inpatient status. Medically necessary treatment will span more than 2 midnights, likely 3 midnights ?
[2024-03-23] MEDS: INSULIN ASPART 300 UNIT/3 ML PEN SUBQ (08:50)
[2024-03-23 11:25] LABS: Glucometer 125 mg/dL (74-106)
[2024-03-23] MEDS: BUDESONIDE 0.5 MG/2 ML AMPULE NEB IH ×2 (11:26→22:08)
[2024-03-23 16:02] LABS: Glucometer 122 mg/dL (74-106)
[2024-03-23 19:51] LABS: Glucometer 138 mg/dL (74-106)
[2024-03-23] MEDS: CEFTRIAXONE 1,000 MG in 0.9 % SODIUM CHLORIDE 50 ML 100 MG IV (20:43)
[2024-03-23] MEDS: LEVOFLOXACIN IN DEXTROSE 5 % 750 MG/150 ML PREMIX 100 MG IV (20:44)
[2024-03-23] MEDS: CALCIUM CARBONATE 500 MG (200MG ELEMENTAL) TAB CHEW PO (23:15)
[2024-03-24] VITALS (8 sets, daily range): BP systolic 115–130; BP diastolic 57–68; PULSE 70–105; TEMP 36.4–36.6; O2SAT 94–98
[2024-03-24] MEDS: IPRATROPIUM/ALBUTEROL SULFATE 3 ML AMPUL.NEB IH (04:22)
[2024-03-24] MEDS: METHYLPREDNISOLONE SOD SUCC PF 125 MG/2 ML VIAL 40 MG IVP (05:52)
[2024-03-24] MEDS: THEOPHYLLINE 300 MG TAB.ER.12H PO (05:52)
[2024-03-24 06:12] LABS: Basophils Percent Auto 0.1 % (0.2-2.0); Hematocrit 41.4 % (42.0-54.0); Hemoglobin 13.7 g/dL (14.0-18.0); Immature Granulocytes Abs Auto 0.09 10^3/uL (0.00-0.03); Immature Granulocytes Pct Auto 0.6 % (0.0-0.5); Lymphocytes Absolute Auto 0.8 10^3/uL (1.2-3.8); Lymphocytes Percent Auto 5.4 % (20.5-60.0); Mean Corpuscular HGB Conc 33.1 g/dL (29.9-35.2); Mean Corpuscular Hemoglobin 30.6 pg (25.9-34.0); Mean Corpuscular Volume 92.4 fL (80.0-94.0); Mean Platelet Volume 9.1 fL (9.5-13.5); Monocytes Percent Auto 6.2 % (1.7-12.0); Neutrophils Absolute Auto 13.5 10^3/uL (1.4-6.5); Neutrophils Percent Auto 87.7 % (43.0-75.0); Platelet Count 337 10^3/uL (150-450); Red Blood Count 4.48 10^6/uL (4.70-6.10); Red Cell Distribution Width 14.6 % (11.0-15.0); White Blood Count 15.4 10^3/uL (4.0-11.0)
[2024-03-24 06:19] LABS: Anion Gap 13.6; BUN Creatinine Ratio 19.7; Calcium 9.1 mg/dL (8.5-10.1); Carbon Dioxide 21.3 mmol/L (21.0-32.0); Chloride 102 mmol/L (98-107); Estimated GFR (African America >60 (>=60); Estimated GFR (Non-African Ame 53 (>=60); Glucose 146 mg/dL (74-106); Potassium 3.9 mmol/L (3.5-5.1); Sodium 133 mmol/L (136-145)
[2024-03-24] MEDS: INSULIN ASPART 300 UNIT/3 ML PEN SUBQ (08:09)
--- NOTE | 2024-03-24 10:25 | P.DS_ITS ---
DS: Providers Provider Date of admission: 03/22/24 16:46 Primary care physician: John Bhagat MD Admitting clinician: John Bhagat Attending physician on admission: John Bhagat Consults: 03/22/24 16:55 Consult to Pharmacy Routine Consulting Provider: Reason for consultation: Please [place] me when Med Rec is Updated Has provider been notified: No Occupational Therapy Eval and Treat Routine Reason for consultation: Only if needed for Rehab Has provider been notified: No Physical Therapy Eval and Treat Routine Reason for consultation: Eval and Treat Has provider been notified: No Discharging clinician: Shaikh Theo Anticipated date of discharge: 03/24/24 DS: Diagnosis Discharge Diagnosis (1) Acute infective exacerbation of chronic obstructive airway disease: Assessment and plan: Doing well today. Denies SOB. No wheezing noted on exam. Stable for discharge on PO prednisone/Levaquin. DS: Summary Hospital Course Hospital Course: 73-year-old male presented with worsening shortness of breath, cough likely secondary to COPD exacerbation. While he was not hypoxic, he had increased work of breathing, conversational dyspnea and was admitted for close hemodynamic monitoring and monitoring of his respiratory status. He was treated with IV Solu-Medrol, inhaled DuoNebs. Patient was also empirically treated with IV Rocephin and Levaquin for possible bacterial pneumonia. However, there was no evidence of pneumonia on chest x-ray. Patient gradually improved during the course of admission and today, appeared to be at his baseline and denied any shortness of breath with no wheezing on exam and good air movement. Patient is medically stable for discharge on oral prednisone. I will discharge him on 5 days of oral Levaquin to complete the course for possible pneumonia/bronchitis. He was educated on worrisome signs and symptoms that should prompt him to seek care in ER. Patient is medically stable for charge. Patient instructed to follow-up with PCP in 1 to 2 weeks Status at Discharge Functional status at discharge: independent ambulation Overall status at discharge: patient is back to baseline Time Spent with Patient Time attestation: Total time spent providing and/or coordinating discharge services: Exam Constitutional Vital Signs, click to edit/add: Last Vital Signs Temp 97.6 F 03/24/24 08:06 Pulse 82 03/24/24 08:06 Resp 18 03/24/24 08:06 BP 130/68 03/24/24 08:06 Pulse Ox 95 03/24/24 08:06 O2 Del Method Room Air 03/24/24 08:06 Documenting provider has reviewed patient's vital signs: yes Common normals: no apparent distress and oriented x3 General appearance: cooperative Respiratory Common normals: normal respiratory effort and clear to auscultation bilaterally Effort & inspection: able to speak in complete sentences Auscultation: clear to auscultation bilaterally Cardio Common normals: regular rate, S1 normal heart sound and S2 normal heart sound Rate: regular rate Heart sounds: S1 normal and S2 normal Extremity Common normals: no clubbing, cyanosis or edema Neuro Common normals: oriented x3, moves all extremities and no focal motor deficits Psych Common normals: mental status grossly normal, denies hallucinations, denies homicidal ideation and denies suicidal ideation DS: Data Data Completed and Pending Labs on day of discharge: Labs from last 24 hours 03/24/24 03/23/24 03/23/24 05:29 19:43 16:01 WBC 15.4 H RBC 4.48 L Hgb 13.7 L Hct 41.4 L MCV 92.4 MCH 30.6 MCHC 33.1 RDW 14.6 Plt Count 337 MPV 9.1 L Neut % (Auto) 87.7 H Lymph % (Auto) 5.4 L [place] % (Auto) 6.2 Eos % (Auto) 0.0 L Baso % (Auto) 0.1 L Neut # (Auto) 13.5 H Lymph # (Auto) 0.8 L [place] # (Auto) 1.0 H Eos # (Auto) 0.0 Baso # (Auto) 0.0 Abs Immat Gran (auto) 0.09 H Imm/Tot Granulo (auto) 0.6 H Sodium 133 L Potassium 3.9 Chloride 102 Carbon Dioxide 21.3 Anion Gap 13.6 BUN 26.0 H Creatinine 1.32 H Est GFR ( Amer) >60 Est GFR (Non-Af Amer) 53 L BUN/Creatinine Ratio 19.7 Glucose 146 H Calcium 9.1 POC Glucose 138 H 122 H 03/23/24 11:24 WBC RBC Hgb Hct MCV MCH MCHC RDW Plt Count MPV Neut % (Auto) Lymph % (Auto) [place] % (Auto) Eos % (Auto) Baso % (Auto) Neut # (Auto) Lymph # (Auto) [place] # (Auto) Eos # (Auto) Baso # (Auto) Abs Immat Gran (auto) Imm/Tot Granulo (auto) Sodium Potassium Chloride Carbon Dioxide Anion Gap BUN Creatinine Est GFR ( Amer) Est GFR (Non-Af Amer) BUN/Creatinine Ratio Glucose Calcium POC Glucose 125 H Discharge Plan Discharge Disposition: Home, Self-Care Condition: Good Discharge Medications: New prednisone 20 mg tablet 20 mg PO BID Qty: 10 0RF levofloxacin 750 mg tablet 750 mg PO Q24H Qty: 5 0RF Continued albuterol sulfate 2.5 mg /3 mL (0.083 %) solution for nebulization 2.5 mg inhalation Q6H PRN (Reason: shortness of breath or wheezing) Dulera 200-5 mcg/actuation HFA aerosol inhaler 2 inh inhalation BID theophylline 300 mg tablet extended release 12 hr 300 mg PO TID Qty: 90 11RF albuterol sulfate 90 mcg/actuation HFA aerosol inhaler 2 inh INHALATION Q6H PRN (Reason: shortness of breath or wheezing) Activity: increase activity as tolerated Diet: advance to your usual diet Print Language: Romanian Patient Instructions: Prednisone (By mouth), Levofloxacin (By mouth), COPD (Chronic Obstructive Pulmonary Disease) (DC) Forms: Portal Instructions Follow Up Appointments: F/u with PCP in one week
--- NOTE | 2024-03-25 15:32 | CM.DCFOLLOWU ---
Person spoke with: Srini How are you feeling? Much better How is your pain? No pain Did you understand your discharge instructions? Yes Do you have any questions about your discharge instructions? No Were you given any prescriptions at discharge? Yes Were you able to get your prescriptions filled? Yes Do you understand how to take your medications as ordered? Yes Do you have any questions about your follow up appointment and do you plan to keep your follow up appointment? No my scheduled it Is there anything else that you would like to discuss? No Questions/Comments/Concerns/Other:
== END 2024-03-24 10:42 | disposition home or self-care (01) | DRG 202 ==
LOC: ER 16:07 → MS 16:47
PROVIDERS: Physician Assistant; Admitting Provider Family Medicine; Emergency Provider Emergency Medicine; PCP Family Medicine; Visit Provider Family Medicine
DX: J20.9 Acute bronchitis, unspecified (principal); J44.0 Chronic obstructive pulmonary disease with (acute) lower respiratory infection; J44.1 Chronic obstructive pulmonary disease with (acute) exacerbation; N17.9 Acute kidney failure, unspecified; F17.200 Nicotine dependence, unspecified, uncomplicated; R06.03 Acute respiratory distress; R73.9 Hyperglycemia, unspecified; Z20.822 Contact with and (suspected) exposure to COVID-19
CPT/HCPCS: 36415; 71045; 80048; 80053; 80198; 82800; 82948; 83605; 83880; 84484; 85025; 85610; 85730; 87070; 87804; 87811; 93005; 94640; 94667; 94668; 94761; 96365; 96375; 99285; J0696; J2919; J3475

== ENCOUNTER 2024-06-20 14:52 | Emergency (ER) | payer MEDICARE, SELFPAY ==
[2024-06-20] VITALS (8 sets, daily range): BP systolic 129–156; BP diastolic 73–85; PULSE 75–89; TEMP 37.2; O2SAT 83–99; BMI 27.1
--- OUTSIDE RECORDS SUMMARY | 2024-06-20 15:05 | XMS_ITS | CCD ---
Author Organization [facility] CliniSyid Care Team Providers Care Supervisor Cereal Name Role Phone PHYSICIAN, DEFAULT Unavailable Unavailable PHYSICIAN, DEFAULT Unavailable Unavailable DEZ RODRIGUEZ Unavailable Unavailable Dez Rodriguez MD Primary Care Provider [phone] MICHAEL ., DR GARCES Attending Unavailable HOY [...] ., DR GARCES Primary Care Unavailable Dez Rodriguez MD Primary Care Provider [phone] TALA II, KRANTHI B Attending Unavailable HOY, DEZ M Primary Care Unavailable TALA II, KRANTHI B Referring Unavailable HOY, DEZ M Primary Care Unavailable TALA II, KRANTHI B Referring Unavailable TALA II, KRANTHI B Attending Unavailable HOY, DEZ M Primary Care Unavailable TALA II, KRANTHI B Referring Unavailable TALA II, KRANTHI B Attending Unavailable HOY, DEZ M Primary Care Unavailable LOPEZ DUBOSE Attending Unavailable JOSHUAAPSUKHS, MARISA Attending Unavailable HOY, DZE M Primary Care Unavailable PAUL TAYLOR Attending Unavailable KALAPODIS, MARISA Referring Unavailable HOY, DEZ M Primary Care Unavailable HOY, DEZ M Referring Unavailable HOY, DEZ M Attending Unavailable HOY, DEZ M Primary Care Unavailable HOY, DEZ M Referring Unavailable HOY, DEZ M Attending Unavailable HOY, DEZ M Primary Care Unavailable HOY, DEZ M Referring Unavailable HOY, DEZ M Attending Unavailable HOY, DZE M Primary Care Unavailable TALA II, KRANTHI B Attending Unavailable HOY, DEZ M Primary Care Unavailable LOPEZ DUBOSE Referring Unavailable KRANTHI EDGAR II Referring Unavailable KRANTHI EDGAR II Attending Unavailable DEZ RODRIGUEZ Primary Care Unavailable DEZ RODRIGUEZ Primary Care Unavailable TONNY ALVES Attending Unavailable DEZ RODRIGUEZ Primary Care Unavailable Allergies Allergy Classification Reported Allergen(s) Allergy Type Date of Onset Reaction(s) Facility (14 sources) Ascorbic Acid Drug Allergy 8 [facility] (3 sources) predniSONE Drug Allergy 2 [facility] (1 source) Ascorbic Acid Drug Allergy 3 [facility] (1 source) predniSONE Drug Allergy 6 [facility] (11 sources) Ketorolac Propensity to adverse reactions to drug 4 Nausea and Vomiting [facility] (11 sources) Prednisone Propensity to adverse reactions to drug 8 [facility] Medications Current Medications Medication Drug Class(es) [...] mometasone furoate 0.2 mg/actuat metered dose inhaler (14 sources) Corticosteroid, beta2-Adrenergic Agonist take 2 puff(s) [...] 750 mg in dextrose 5% premix IVPB ondansetron 4 mg disintegrating oral tablet (6 sources) Serotonin-3 Receptor Antagonist Start: 04-06-2024 take 1 tablet by mouth every four hours as needed Ondansetron 4 MG Tab Dispersible tablet Take 1 tablet by mouth every [address] on tongue 14 tablet 04/06/2024 Active Start: 04-06-2024 End: 04-06-2024 4 mg, Intravenous, ONCE, 1 d ose, On 04/06/24 at 1400 Start: 12-21-2023 End: 12-21-2023 4 mg, Intravenous, ONCE, 1 d ose, On Kya 12/21/23 at 0145 Start: 07-31-2021 End: 08-02-2021 take 4 mg intravenously every four hours as needed 4 mg, Intravenous, EVERY 4 HOURS NEEDED, Starting on 07/31/21 at 1533, Until 08/02/21 at 1844, Nausea / Vomiting Start: 07-31-2021 End: 07-31-2021 ondansetron 4mg/2ml (ZOFRAN) injection 4 mg Start: 07-31-2021 End: 07-31-2021 ondansetron 4mg/2ml (ZOFRAN) injection 4 mg predniSONE 10 mg oral tablet (8 sources) [...] theophylline 300 mg extended release oral tablet (11 sources) Methylxanthine Start: 08-16-2022 take 1 tablet [...] / ipratropium bromide 0.167 mg/ml inhalation solution (9 sources) Anticholinergic, beta2-Adrenergic Agonist Start: 04-06-2024 End: 04-06-2024 9 mL, Nebulization, ONCE, 1 dose, On 04/06/24 at 1400 Start: 08-23-2023 End: 08-23-2023 3 mL, Nebulization, [...] 1 dose, On Kya 12/21/23 at 0145 iohexol (OMNIPAQUE) 350 MG/ML injection [...] 125 mg, Intravenous, ONCE, 1 dose, On Kya 12/07/23 at 0115 Start: 08-23-2023 End: 08-23-2023 125 [...] at 0900, Until Mon01/23/24 at 0942, per pantoprazole 40 mg delayed release oral tablet (2 sources) Proton Pump Inhibitor Start: 12-21-2023 End: 12-21-2023 40 mg, Intravenous, ONCE, 1 dose, On Mon12/21/23 at 0145, Dilute each 40 mg vial with 10 mL of NS. All bolus doses, whether 40 mg or 80 mg, should be administered over at least two minutes., Indications: Inpt Stress Ulcer Prophylaxis Start: 08-01-2021 End: 08-02-2021 take 40 mg by mouth once daily 40 mg, Oral, DAILY, Fir st dose on Mon08/01/21 at 0900, Until Discontinued Do not crush. [...] 0.4 mg, Intravenous, ONCE, 1 dose, On Mon10/31/23 at 0715, Give rapid iv push over 10 seconds, Radiology Procedure 1000 ml sodium chloride 9 mg/ml injection (7 sources) Start: 01-23-2024 End: 01-23-2024 1,000 mL, Intravenous, ONCE, 1 dose, On Mon01/23/24 at 0900 Start: 08-23-2023 End: 08-23-2023 75 mL, Intravenous, ONCE, 1 dose, On Mon08/23/23 at 1900, Radiology Procedure Start: 08-23-2023 End: 08-23-2023 Intravenous, at 125 mL/hr, C ONTINUOUS, Starting on Mon08/23/23 at 1715, Until Mon08/23/23 at 2237 Start: 05-11-2023 End: 05-11-2023 Sodium chloride 0.9% IV solu tion 75 mL Start: 07-31-2021 End: 08-02-2021 Intravenous, at 75 mL/hr, CO NTINUOUS, Starting on Mon07/31/21 at 1545, Until Mon08/02/21 at 1844 Start: 07-31-2021 End: 07-31-2021 sodium [...] Translations: [GERD WITHOUT ESOPHAGITIS] Onset: 07-21-2022 Chronic Malaise and fatigue (3 sources) Asthenia; Translations: [Weakness] Onset: 04-06-2024 04-06-2024 Episodic Nausea and vomiting (3 sources) Nausea and vomiting; Translations: [Nausea with vomiting, unspecified] Onset: 04-06-2024 04-06-2024 Episodic Nutritional deficiencies (15 sources) Vitamin D deficiency; Translations: [Vitamin D deficiency, unspecified] Onset: 08-01-2021 Chronic Other lower respiratory disease (4 sources) Dyspnea; Translations: [Dyspnea, unspecified] 10-31-2023 Episodic Other nutritional; endocrine; and metabolic disorders (15 sources) Hypoalbuminemia; Translations: [Other disorders of plasma-protein [...] Translations: [HYPO-OSMOLALITY AND HYPONATREMIA] Onset: 07-21-2022 Episodic Nonspecific chest pain (6 sources) Chest pain; Translations: [Chest pain, unspecified] Onset: 12-21-2023 12-21-2023 Episodic Other aftercare (1 source) Other fci (current) drug therapy; Translations: [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] Onset: 08-18-2022 Episodic Other lower respiratory disease (1 source) Acute respiratory distress; Translations: [ACUTE RESPIRATORY DISTRESS] Onset: 08-18-2022 Episodic Other lower respiratory disease (6 sources) Dyspnea, unspecified; Translations: [DYSPNEA UNSPECIFIED] Onset: 06-15-2022 Episodic Other lower respiratory disease (4 sources) Shortness of breath; Translations: [Shortness of breath] Onset: 12-07-2023 Episodic Other screening for suspected conditions (not mental disorders or infectious disease) (1 source) Other specified abnormal findings of blood chemistry; Translations: [OTH SPEC ABNORMAL FINDINGS BLD CHEM] Onset: 08-18-2022 Episodic Other skin disorders (2 sources) Localized swelling, mass and lump, neck; Translations: [Localized swelling, mass and lump, neck] Onset: 05-11-2023 Episodic Pneumonia (except that caused by tuberculosis or sexually transmitted disease) (15 sources) Pneumonia; Translations: [Pneumonia, unspecified organism] Onset: 07-31-2021 Episodic Residual codes; unclassified (15 sources) Tobacco user; Translations: [Tobacco use] Onset: 08-01-2021 Episodic Skin and subcutaneous tissue infections (3 sources) Cellulitis of left upper limb; Translations: [Cellulitis of left upper limb] Onset: 12-07-2023 12-07-2023 Episodic Unclassified (2 sources) Onset: 08-19-2022 08-19-2022 Unclassified (1 source) Other supraventricular tachycardia; Translations: [Other supraventricular tachycardia] Onset: 01-23-2024 Unclassified (1 source) Other ventricular tachycardia; Translations: [Other ventricular tachycardia] Onset: 01-23-2024 Results Test Name Value Interpretation Reference Range Facility CBCon 04-06-2024 ABSOLUTE BAS 0.1 10*3/uL Normal 0.0-0.2 [facility] Comment on above: Performed By: #### T ROHS #### Testing performed at [address] [address] ABSOLUTE EOS 0.3 10*3/uL Normal 0.0-0.7 [facility] Comment on above: Performed By: #### T ROHS #### Testing performed at [address] [address] ABSOLUTE NEUTROPHIL COUNT 5.4 10*3/uL Normal 1.4-6.5 [facility] Comment on above: Performed By: #### T ROHS #### Testing performed at [address] [address] Basophils/100 WBC (Bld) 0.8 % Normal 0.0-2.0 [facility] Comment on above: Performed By: #### T ROHS #### Testing performed at [address] [address] DTYPE AUTO DIFF Normal [facility] Comment on above: Performed By: #### T ROHS #### Testing performed at [address] [address] Eosinophils/100 WBC (Bld) 3.9 % Normal 0.0-11.0 [facility] Comment on above: Performed By: #### T ROHS #### Testing performed at [address] [address] Lymphocytes (Bld) [#/Vol] 1.5 10*3/uL Normal 1.2-3.4 [facility] Comment on above: Performed By: #### T ROHS #### Testing performed at [address] [address] Lymphocytes/100 WBC (Bld) 18.8 % Low 20.0-55.0 [facility] Comment on above: Performed By: #### T ROHS #### Testing performed at [address] [address] Monocytes (Bld) [#/Vol] 0.7 10*3/uL Normal 0.0-0.7 [facility] Comment on above: Performed By: #### T ROHS #### Testing performed at [address] [address] Monocytes/100 WBC (Bld) 8.4 % Normal 0.0-10.0 [facility] Comment on above: Performed By: #### T ROHS #### Testing performed at [address] [address] Neutrophils/100 WBC (Bld) 68.1 % Normal 37.0-75.0 [facility] Comment on above: Performed By: #### T ROHS #### Testing performed at [address] [address] Erythrocyte distribution width (RBC) [Ratio] 14.6 % High 11.5-14.5 [facility] Comment on above: Performed By: #### T ROHS #### Testing performed at [address] [address] Hematocrit (Bld) [Volume fraction] 45.8 % Normal 42.0-52.0 [facility] Comment on above: Performed By: #### T ROHS #### Testing performed at [address] [place] [address] Hemoglobin (Bld) [Mass/Vol] 15.1 g/dL Normal 14.0-18.0 [facility] Comment on above: Performed By: #### T ROHS #### Testing performed at [address] [address] MCH (RBC) [Entitic mass] 30.1 pg Normal 26.0-35.0 [facility] Comment on above: Performed By: #### T ROHS #### Testing performed at [address] [address] MCHC (RBC) [Mass/Vol] 33.1 g/dL Normal 27.0-37.0 [facility] Comment on above: Performed By: #### T ROHS #### Testing performed at [address] [address] MCV (RBC) [Entitic vol] 91.1 fL Normal 80.0-100.0 [facility] Comment on above: Performed By: #### T ROHS #### Testing performed at [address] [address] Platelet mean volume (Bld) [Entitic vol] 6.7 fL Low 7.4-11.0 [facility] Comment on above: Performed By: #### T ROHS #### Testing performed at [address] [address] Platelets (Bld) [#/Vol] 362 10*3/uL Normal 130-400 [facility] Comment on above: Performed By: #### T ROHS #### Testing performed at [address] [address] RBC (Bld) [#/Vol] 5.03 10*6/uL Normal 4.0-6.1 [facility] Comment on above: Performed By: #### T ROHS #### Testing performed at [address] [address] WBC (Bld) [#/Vol] 8.0 10*3/uL Normal 3.6-11.0 [facility] Comment on above: Performed By: #### T ROHS #### Testing performed at [address] [address] CBC, EDIF, PLATELETon 2023 ABSOLUTE BASOPHIL COUNT 0.1 10*3/uL 0.0 - 0.2 10*3/uL [facility] Basophils/100 WBC (Bld) 0.8 % 0.0 - 2.0 % [facility] Differential cell count method Nom (Bld) AUTO DIFF % [facility] Eosinophils (Bld) [#/Vol] 0.3 10*3/uL 0.0 - 0.7 10*3/uL [facility] Eosinophils/100 WBC (Bld) 3.9 % 0.0 - 11.0 % [facility] Erythrocyte distribution width (RBC) [Ratio] 14.6 % High 11.5 - 14.5 % [facility] Hematocrit (Bld) [Volume fraction] 45.8 % 42.0 - 52.0 % [facility] Hemoglobin (Bld) [Mass/Vol] 15.1 g/dL [facility] Interpretation and review of laboratory results Abnormal [facility] Lymphocytes (Bld) [#/Vol] 1.5 10*3/uL 1.2 - 3.4 10*3/uL [facility] Lymphocytes/100 WBC (Bld) 18.8 % Low 20.0 - 55.0 % [facility] MCH (RBC) [Entitic mass] 30.1 pg 26.0 - 35.0 PG [facility] MCHC (RBC) [Mass/Vol] 33.1 g/dL [facility] MCV (RBC) [Entitic vol] 91.1 fL [facility] Monocytes (Bld) [#/Vol] 0.7 10*3/uL 0.0 - 0.7 10*3/uL [facility] Monocytes/100 WBC (Bld) 8.4 % 0.0 - 10.0 % [facility] Neutrophils (Bld) [#/Vol] 5.4 10*3/uL 1.4 - 6.5 10*3/uL [facility] Neutrophils/100 WBC (Bld) 68.1 % 37.0 - 75.0 % [facility] Platelet mean volume (Bld) [Entitic vol] 6.7 fL Low [facility] Platelets (Bld) [#/Vol] 362 10*3/uL 130 - 400 10*3/uL [facility] RBC (Bld) [#/Vol] 5.03 10*6/uL 4.0 - 6.1 10*6/uL [facility] WBC (Bld) [#/Vol] 8.0 10*3/uL 3.6 - 11.0 10*3/uL [facility] CMP FASTINGon 04-06-2024 A:G RATIO 1.5 RATIO Normal [facility] Comment on above: Performed By: #### T ROHS #### Testing performed at [address] [address] ALBUMIN 4.2 G/dl Normal 3.5-5.0 [facility] Comment on above: Performed By: #### T ROHS #### Testing performed at [address] [address] ALP [Catalytic activity/Vol] 100 U/L Normal 38-126 [facility] Comment on above: Performed By: #### T ROHS #### Testing performed at [address] [address] ALT [Catalytic activity/Vol] 19 U/L Normal <50 [facility] Comment on above: Performed By: #### T ROHS #### Testing performed at [address] [address] AST [Catalytic activity/Vol] 22 U/L Normal 17-59 [facility] Comment on above: Performed By: #### T ROHS #### Testing performed at [address] [address] Bilirubin [Mass/Vol] 0.5 mg/dL Normal 0.2-1.3 [facility] Comment on above: Performed By: #### T ROHS #### Testing performed at [address] [address] Calcium [Mass/Vol] 9.1 mg/dL Normal 8.4-10.2 [facility] Comment on above: Performed By: #### T ROHS #### Testing performed at [address] [address] Chloride [Moles/Vol] 108 mmol/L High 98-107 [facility] Comment on above: Result Comment: Paris domínguez note: Triglyceride levels of 600mg/dL or higher may positively bias chloride results by approximately 2.1 mmol Performed By: #### T ROHS #### Testing performed at [address] [address] CO2 [Moles/Vol] 27 mmol/L Normal 22-30 [facility] Comment on above: Performed By: #### T ROHS #### Testing performed at [address] [address] Creatinine [Mass/Vol] 1.10 mg/dL Normal 0.70-1.20 [facility] Comment on above: Performed By: #### T ROHS #### Testing performed at [address] [address] EST. GFR, 84 ml/min/1.73sq.m [facility] Comment on above: Performed By: #### T ROHS #### Testing performed at [address] [address] EST. GFR,Non 70 ml/min/1.73sq.m [facility] Comment on above: Performed By: #### T ROHS #### Testing performed at [address] [address] GFR Information Average GFR for 70+ years old = 75. Normal [facility] Comment on above: Result Comment: Rd Mechanical [employer] isaiah Kidney disease, GFR = <60. Kidney failure, GFR = <15. The GFR estimate is not adjusted for extreme body surface area or acute process, nor has it been validated for women or ethnic groups other than and . Performed By: #### T ROHS #### Testing performed at [address] [address] Glucose [Mass/Vol] 117 mg/dL High 70-100 [facility] Comment on above: Result Comment: NORMAL <100 mg/dL PREDIABETES 101-126 mg/dL DIABETES 126 mg/dL or higher Performed By: #### T ROHS #### Testing performed at [address] [address] Potassium [Moles/Vol] 4.3 mmol/L Normal 3.5-5.1 [facility] Comment on above: Performed By: #### T ROHS #### Testing performed at [address] [address] Protein [Mass/Vol] 7.0 g/dL Normal 6.3-8.2 [facility] Comment on above: Performed By: #### T YOKOS #### Testing performed at [facility] [address] [place] [address] Sodium [Moles/Vol] 137 mmol/L Normal 137-145 [facility] Comment on above: Performed By: #### T YOKOS #### Testing performed at [address] [address] Urea nitrogen [Mass/Vol] 15 mg/dL Normal 7-20 [facility] Comment on above: Performed By: #### T YOKOS #### Testing performed at [address] [address] COMPREHENSIVE METABOLIC PANE Karri 04-06-2024 Albumin [Mass/Vol] 4.2 G/dl 3.5 - 5.0 G/dl [facility] Albumin/Globulin [Mass ratio] 1.5 {ratio} RATIO [facility] ALP [Catalytic activity/Vol] 100 U/L [facility] ALT [Catalytic activity/Vol] 19 U/L NINF [facility] AST [Catalytic activity/Vol] 22 U/L [facility] Bilirubin [Mass/Vol] 0.5 mg/dL [facility] Calcium [Mass/Vol] 9.1 mg/dL [facility] Chloride [Moles/Vol] 108 mmol/L High [facility] Comment on above: Please note: Triglyc eride levels of 600mg/dL or higher may positively bias chloride results by approximately 2.1 mmol CO2 [Moles/Vol] 27 mmol/L [facility] Creatinine [Mass/Vol] 1.10 mg/dL [facility] GFR COMMENT Average GFR for 70+ years old = 75. [facility] Comment on above: Chronic Kidney disea se, GFR = <60. Kidney failure, GFR = <15. The GFR estimate is not adjusted for extreme body surface area or acute process, nor has it been validated for women or ethnic groups other than and . GFR/1.73 sq M.predicted among blacks MDRD (S/P/Bld) [Vol rate/Area] 84 mL/min/{1.73_m2} ml/min/1.73sq .m [facility] GFR/1.73 sq M.predicted among non-blacks MDRD (S/P/Bld) [Vol rate/Area] 70 mL/min/{1.73_m2} ml/min/1.73sq .m [facility] Glucose post fast [Mass/Vol] 117 mg/dL High [facility] Comment on above: NORMAL <100 mg/dL PREDIABETES 101-126 mg/dL DIABETES 126 mg/dL or higher Interpretation and review of laboratory results Abnormal [facility] Potassium [Moles/Vol] 4.3 mmol/L [facility] Protein [Mass/Vol] 7.0 g/dL [facility] Sodium [Moles/Vol] 137 mmol/L [facility] Urea nitrogen [Mass/Vol] 15 mg/dL [facility] D DIMERon 04-06-2024 D DIMER 0.41 ??g/ml Normal <0.50 [facility] Comment on above: Result Comment: If r esult is greater than the cutoff value of 0.50 ??g/ml then the potential for PE or DVT exists. Other conditions exist which may cause a falsely elevated level. Please correlate clinically, including radiological findings and other clinical parameters. Performed By: #### T ROHS #### Testing performed at [address] [address] D-DIMER,QUANTITATIVEon 04-06 Fibrin D-dimer FEU (PPP) [Mass/Vol] 0.41 NINF [facility] Comment on above: If result is greater than the cutoff value of 0.50 g/ml then the potential for PE or DVT exists. Other conditions exist which may cause a falsely elevated level. Please correlate clinically, including radiological findings and other clinical parameters. [facility] INFLUENZA A AND B, PCRon FLUAV and FLUBV Ag IF Nom (Unsp spec) Negative NEGATIVE [facility] FLUBV Ag IA Ql (Unsp spec) Negative NEGATIVE [facility] Comment on above: TESTING PERFORMED BY [place] [facility] NOVEL CORONAVIRUSon 04-06-20 24 NARRATIVE This test was performed using isothermal [place] for the qualitative detection of SARS-CoV-2 nucleic acid. Normal [facility] Comment on above: Performed By: #### T ROHS #### Testing performed at [address] [address] SARS-CoV-2 (COVID-19) RNA [place]+probe Ql (Unsp spec) Not detected Normal NOT DETECTED [facility] Comment on above: Result Comment: Nega [...] ill or clinically deteriorating. Performed By: #### T ROHS #### Testing performed at [place] [id number] NOVEL CORONAVIRUS LAB 1 - NA [facility] 04-06-2024 SARS-CoV-2 (COVID-19) RNA [place]+probe Ql (Unsp spec) Not detected NOT DETECTED [facility] Comment on above: Negative results do [...] patient is critically ill or clinically deteriorating. SARS-CoV-2 (COVID-19) RNA [place]+probe Ql (Unsp spec) This test was performed using isothermal [place] for the qualitative detection of SARS-CoV-2 nucleic acid. [facility] RAPID FLU Aon 04-06-2024 INFLUENZA A Negative Normal NEGATIVE [facility] Comment on above: Performed By: #### T ROHS #### Testing performed at [place] [id number] INFLUENZA B Negative Normal NEGATIVE [facility] Comment on above: Result Comment: TEST ING PERFORMED BY [place] Performed By: #### T ROHS #### Testing performed at [address] [address] TROPONIN I, HIGH SENSITIVITY on 04-06-2024 TROPONIN I, HIGH SENSITIVITY 3 pg/mL 0 - 20 pg/mL [facility] Comment on above: Indeterminant: >12 to 100 pg/mL female >20 to 100 pg/mL male Indicative of myocardial injury. Serial sampling is recommended, a change of greater than or equal to 20 pg/mL is indicative of acute coronary syndrome. [facility] TROPONIN I, HIGH SENSITIVITY 3 pg/mL Normal 0-20 [facility] Comment on above: Result Comment: Indeterminant: >12 to 100 pg/mL female >20 to 100 pg/mL male Indicative of myocardial injury. Serial sampling is recommended, a change of greater than or equal to 20 pg/mL is indicative of acute coronary syndrome. Performed By: #### T ROHS #### Testing performed at [address] [address] TROPONIN I, HIGH SENSITIVITY 3 pg/mL 0 - 20 pg/mL [facility] Comment on above: Indeterminant: >12 to 100 pg/mL female >20 to 100 pg/mL male Indicative of myocardial injury. Serial sampling is recommended, a change of greater than or equal to 20 pg/mL is indicative of acute coronary syndrome. [facility] TROPONIN I, HIGH SENSITIVITY 3 pg/mL Normal 0-20 [facility] Comment on above: Result Comment: Indeterminant: >12 to 100 pg/mL female >20 to 100 pg/mL male Indicative of myocardial injury. Serial sampling is recommended, a change of greater than or equal to 20 pg/mL is indicative of acute coronary syndrome. Performed By: #### T ROHS #### Testing performed at [address] [address] XR CHEST PA 1 VIEWon 024 XR CHEST PA 1 VIEW EXAM: XR CHEST PA 1 VIEW INDICATION: lightheaded. COMPARISON: Chest radiograph 12/07/2023. TECHNIQUE: Single frontal view of the chest FINDINGS: Normal cardiomediastinal contours. No acute infiltrative process. No pleural effusion or pneumothorax. No acute osseous abnormality. IMPRESSION: No acute cardiopulmonary process. Normal [facility] XR Chest PA uprighton 2023 IMPRESSION: No acute cardiopulmonary process. RADIOLOGY EXAM: XR CHEST PA 1 VIEW INDICATION: lightheaded. COMPARISON: Chest radiograph 12/07/2023. TECHNIQUE: Single frontal view of the chest FINDINGS: Normal cardiomediastinal contours. No acute infiltrative process. No pleural effusion or pneumothorax. No acute osseous abnormality. RADIOLOGY Sheyla Tinsley MD - 04/06/2024 EXAM: XR CHEST PA 1 VIEW INDICATION: lightheaded. COMPARISON: Chest radiograph 12/07/2023. TECHNIQUE: Single frontal view of the chest FINDINGS: Normal cardiomediastinal contours. No acute infiltrative process. No pleural effusion or pneumothorax. No acute osseous abnormality. IMPRESSION IMPRESSION: No acute cardiopulmonary process. [facility] Study observation (narrative) [facility] XR Chest PA uprightOrdered B y: Sheyla Penaloza on 04-06-2024 [facility] Work Phone: Cardiac echo study Procedure on 01-23-2024 APPROVED [...] Doppler, and color-flow Echocardiogram Imaging system used: 2nd Watch 2D Dimensions IVSd 1.1 cm M: 0.6-1.0 [...] ms MVA PHT 2.76 cm2 MV Dec [place] 197.45 cm/s2 MV Decel. Time 268.66 (160-240 [...] Doppler, and color-flow Echocardiogram Imaging system used: 2nd Watch 2D Dimensions IVSd 1.1 cm M: 0.6-1.0LVEF (Visual)60.91 % PWd 1.1 cm M: 0.6 - 1.0LVEF (Deshpande's)61.25 % M: 52 - 72 LVDd 4.2 cm M: 4.2 - 5.8EF AP4-a2DQ64.72 % LVDs 2.85 cm M: 2.5 - 4.0EF AP2-a2DQ59.89 % Aortic Root 3.24 cm M: 3.1 - 3.7EF BP-a2DQ61.25 % Aortic Root Index1.5 cm/t1ODPZM79 mL Ascending Aorta 2.89 cm M: 2.6 - 3.2AFKXF17.87 mL M: 62 - 150 Ascending Aorta Index: 1.4 cm/m2LV Volume Index42.80 mL/m2 M: 34 - 74 Left Atrium 3.04 cm M: 3.0 - 4.0LA Ceezlk57.3 mL LVOT1.97 cm (M/F) 1.5-2.5LA Volume Index11.57 [...] Ratio0.71MV PHT79.63 ms MVA PHT2.76 cm2MV Dec [place] 197.45 cm/s2 MV Decel. Idju022.66 (160-240 ms) [facility] Radiology Study observation (narrative) [facility] CBCon 12-21-2023 ABSOLUTE BAS 0.1 10*3/uL Normal 0.0-0.2 [facility] Comment on above: Performed By: #### T ROHS #### Testing performed at [address] [address] ABSOLUTE EOS 0.4 10*3/uL Normal 0.0-0.7 [facility] Comment on above: Performed By: #### T ROHS #### Testing performed at [address] [address] ABSOLUTE NEUTROPHIL COUNT 5.4 10*3/uL Normal 1.4-6.5 [facility] Comment on above: Performed By: #### T ROHS #### Testing performed at [address] [address] Basophils/100 WBC (Bld) 1.3 % Normal 0.0-2.0 [facility] Comment on above: Performed By: #### T ROHS #### Testing performed at [address] [address] DTYPE AUTO DIFF Normal [facility] Comment on above: Performed By: #### T ROHS #### Testing performed at [address] [address] Eosinophils/100 WBC (Bld) 4.0 % Normal 0.0-11.0 [facility] Comment on above: Performed By: #### T ROHS #### Testing performed at [address] [address] Erythrocyte distribution width (RBC) [Ratio] 15.4 % High 11.5-14.5 [facility] Comment on above: Performed By: #### T ROHS #### Testing performed at [address] [address] Hematocrit (Bld) [Volume fraction] 44.7 % Normal 42.0-52.0 [facility] Comment on above: Performed By: #### T ROHS #### Testing performed at [address] [address] Hemoglobin (Bld) [Mass/Vol] 15.0 g/dL Normal 14.0-18.0 [facility] Comment on above: Performed By: #### T ROHS #### Testing performed at [address] [address] Lymphocytes (Bld) [#/Vol] 2.2 10*3/uL Normal 1.2-3.4 [facility] Comment on above: Performed By: #### T ROHS #### Testing performed at [address] [address] Lymphocytes/100 WBC (Bld) 25.1 % Normal 20.0-55.0 [facility] Comment on above: Performed By: #### T ROHS #### Testing performed at [address] [address] MCH (RBC) [Entitic mass] 30.4 pg Normal 26.0-35.0 [facility] Comment on above: Performed By: #### T ROHS #### Testing performed at [address] [address] MCHC (RBC) [Mass/Vol] 33.6 g/dL Normal 27.0-37.0 [facility] Comment on above: Performed By: #### T ROHS #### Testing performed at [address] [address] MCV (RBC) [Entitic vol] 90.6 fL Normal 80.0-100.0 [facility] Comment on above: Performed By: #### T ROHS #### Testing performed at [address] [address] Monocytes (Bld) [#/Vol] 0.9 10*3/uL High 0.0-0.7 [facility] Comment on above: Performed By: #### T ROHS #### Testing performed at [address] [address] Monocytes/100 WBC (Bld) 9.5 % Normal 0.0-10.0 [facility] Comment on above: Performed By: #### T ROHS #### Testing performed at [address] [address] Neutrophils/100 WBC (Bld) 60.1 % Normal 37.0-75.0 [facility] Comment on above: Performed By: #### T ROHS #### Testing performed at [address] [place] [address] Platelet mean volume (Bld) [Entitic vol] 6.9 fL Low 7.4-11.0 [facility] Comment on above: Performed By: #### T ROHS #### Testing performed at [address] [address] Platelets (Bld) [#/Vol] 434 10*3/uL High 130-400 [facility] Comment on above: Performed By: #### T ROHS #### Testing performed at [address] [address] RBC (Bld) [#/Vol] 4.93 10*6/uL Normal 4.0-6.1 [facility] Comment on above: Performed By: #### T ROHS #### Testing performed at [address] [address] WBC (Bld) [#/Vol] 8.9 10*3/uL Normal 3.6-11.0 [facility] Comment on above: Performed By: #### T ROHS #### Testing performed at [address] [address] CBC, EDIF, PLATELETon 2023 ABSOLUTE BASOPHIL COUNT 0.1 10*3/uL 0.0 - 0.2 10*3/uL [facility] Basophils/100 WBC (Bld) 1.3 % 0.0 - 2.0 % [facility] Differential cell count method Nom (Bld) AUTO DIFF % [facility] Eosinophils (Bld) [#/Vol] 0.4 10*3/uL 0.0 - 0.7 10*3/uL [facility] Eosinophils/100 WBC (Bld) 4.0 % 0.0 - 11.0 % [facility] Erythrocyte distribution width (RBC) [Ratio] 15.4 % High 11.5 - 14.5 % [facility] Hematocrit (Bld) [Volume fraction] 44.7 % 42.0 - 52.0 % [facility] Hemoglobin (Bld) [Mass/Vol] 15.0 g/dL [facility] Interpretation and review of laboratory results Abnormal [facility] Lymphocytes (Bld) [#/Vol] 2.2 10*3/uL 1.2 - 3.4 10*3/uL [facility] Lymphocytes/100 WBC (Bld) 25.1 % 20.0 - 55.0 % [facility] MCH (RBC) [Entitic mass] 30.4 pg 26.0 - 35.0 PG [facility] MCHC (RBC) [Mass/Vol] 33.6 g/dL [facility] MCV (RBC) [Entitic vol] 90.6 fL [facility] Monocytes (Bld) [#/Vol] 0.9 10*3/uL High 0.0 - 0.7 10*3/uL [facility] Monocytes/100 WBC (Bld) 9.5 % 0.0 - 10.0 % [facility] Neutrophils (Bld) [#/Vol] 5.4 10*3/uL 1.4 - 6.5 10*3/uL [facility] Neutrophils/100 WBC (Bld) 60.1 % 37.0 - 75.0 % [facility] Platelet mean volume (Bld) [Entitic vol] 6.9 fL Low [facility] Platelets (Bld) [#/Vol] 434 10*3/uL High 130 - 400 10*3/uL [facility] RBC (Bld) [#/Vol] 4.93 10*6/uL 4.0 - 6.1 10*6/uL [facility] WBC (Bld) [#/Vol] 8.9 10*3/uL 3.6 - 11.0 10*3/uL [facility] CHEM 7 FASTINGon 12-21-2023 Chloride [Moles/Vol] 108 mmol/L High 98-107 [facility] Comment on above: Result Comment: Paris domínguez note: Triglyceride levels of 600mg/dL or higher may positively bias chloride results by approximately 2.1 mmol Performed By: #### T ROHS #### Testing performed at [address] [address] CO2 [Moles/Vol] 26 mmol/L Normal 22-30 [facility] Comment on above: Performed By: #### T ROHS #### Testing performed at [address] [address] Creatinine [Mass/Vol] 1.10 mg/dL Normal 0.70-1.20 [facility] Comment on above: Performed By: #### T ROHS #### Testing performed at [address] [address] EST. GFR, 84 ml/min/1.73sq.m [facility] Comment on above: Performed By: #### T ROHS #### Testing performed at [address] [address] EST. GFR,Non 70 ml/min/1.73sq.m [facility] Comment on above: Performed By: #### T ROHS #### Testing performed at [place] [id number] GFR Information Average GFR for 70+ years old = 75. Normal [facility] Comment on above: Result Comment: Rd [employer] isaiah Kidney disease, GFR = <60. Kidney failure, GFR = <15. The GFR estimate is not adjusted for extreme body surface area or acute process, nor has it been validated for women or ethnic groups other than and . Performed By: #### T ROHS #### Testing performed at [place] [id number] Glucose [Mass/Vol] 90 mg/dL Normal 70-100 [facility] Comment on above: Result Comment: NORMAL <100 mg/dL PREDIABETES 101-126 mg/dL DIABETES 126 mg/dL or higher Performed By: #### T ROHS #### Testing performed at [place] [id number] Potassium [Moles/Vol] 4.2 mmol/L Normal 3.5-5.1 [facility] Comment on above: Performed By: #### T ROHS #### Testing performed at [place] [id number] Sodium [Moles/Vol] 139 mmol/L Normal 137-145 [facility] Comment on above: Performed By: #### T ROHS #### Testing performed at [place] [id number] Urea nitrogen [Mass/Vol] 15 mg/dL Normal 7-20 [facility] Comment on above: Performed By: #### T ROHS #### Testing performed at [place] [id number] CHEM 7 (LYTES,BUN,CREA,GLUC) on 06-27-2024 Chloride [Moles/Vol] 108 mmol/L High [facility] Comment on above: Please note: Triglyc eride levels of 600mg/dL or higher may positively bias chloride results by approximately 2.1 mmol CO2 [Moles/Vol] 26 mmol/L [facility] Creatinine [Mass/Vol] 1.10 mg/dL [facility] GFR COMMENT Average GFR for 70+ years old = 75. [facility] Comment on above: Chronic Kidney disea se, GFR = <60. Kidney failure, GFR = <15. The GFR estimate is not adjusted for extreme body surface area or acute process, nor has it been validated for women or ethnic groups other than and . GFR/1.73 sq M.predicted among blacks MDRD (S/P/Bld) [Vol rate/Area] 84 mL/min/{1.73_m2} ml/min/1.73sq .m [facility] GFR/1.73 sq M.predicted among non-blacks MDRD (S/P/Bld) [Vol rate/Area] 70 mL/min/{1.73_m2} ml/min/1.73sq .m [facility] Glucose post fast [Mass/Vol] 90 mg/dL [facility] Comment on above: NORMAL <100 mg/dL PREDIABETES 101-126 mg/dL DIABETES 126 mg/dL or higher Interpretation and review of laboratory results Abnormal [facility] Potassium [Moles/Vol] 4.2 mmol/L [facility] Sodium [Moles/Vol] 139 mmol/L [facility] Urea nitrogen [Mass/Vol] 15 mg/dL [facility] TROPONIN I, HIGH SENSITIVITY on 12-21-2023 TROPONIN I, HIGH SENSITIVITY 5 pg/mL 0 - 20 pg/mL [facility] Comment on above: Indeterminant: >12 to 100 pg/mL female >20 to 100 pg/mL male Indicative of myocardial injury. Serial sampling is recommended, a change of greater than or equal to 20 pg/mL is indicative of acute coronary syndrome. [facility] TROPONIN I, HIGH SENSITIVITY 5 pg/mL Normal 0-20 [facility] Comment on above: Result Comment: Indeterminant: >12 to 100 pg/mL female >20 to 100 pg/mL male Indicative of myocardial injury. Serial sampling is recommended, a change of greater than or equal to 20 pg/mL is indicative of acute coronary syndrome. Performed By: #### T ROHS #### Testing performed at [address] [address] CBCon 12-07-2023 ABSOLUTE BAS 0.0 10*3/uL Normal 0.0-0.2 [facility] Comment on above: Performed By: #### C MPF, MG, ACBC #### Testing performed at [address] [address] ABSOLUTE EOS 0.4 10*3/uL Normal 0.0-0.7 [facility] Comment on above: Performed By: #### C MPF, MG, ACBC #### Testing performed at [address] [address] ABSOLUTE NEUTROPHIL COUNT 4.9 10*3/uL Normal 1.4-6.5 [facility] Comment on above: Performed By: #### C MPF, MG, ACBC #### Testing performed at [address] [address] Basophils/100 WBC (Bld) 0.7 % Normal 0.0-2.0 [facility] Comment on above: Performed By: #### C MPF, MG, ACBC #### Testing performed at [address] [address] DTYPE AUTO DIFF Normal [facility] Comment on above: Performed By: #### C MPF, MG, ACBC #### Testing performed at [address] [address] Eosinophils/100 WBC (Bld) 5.2 % Normal 0.0-11.0 [facility] Comment on above: Performed By: #### C MPF, MG, ACBC #### Testing performed at [address] [address] Lymphocytes (Bld) [#/Vol] 1.4 10*3/uL Normal 1.2-3.4 [facility] Comment on above: Performed By: #### C MPF, MG, ACBC #### Testing performed at [address] [address] Lymphocytes/100 WBC (Bld) 18.6 % Low 20.0-55.0 [facility] Comment on above: Performed By: #### C MPF MG, ACBC #### Testing performed at [address] [address] Monocytes (Bld) [#/Vol] 0.8 10*3/uL High 0.0-0.7 [facility] Comment on above: Performed By: #### C MPF, MG, ACBC #### Testing performed at [address] [address] Monocytes/100 WBC (Bld) 10.3 % High 0.0-10.0 [facility] Comment on above: Performed By: #### C MPF MG, ACBC #### Testing performed at [address] [address] Neutrophils/100 WBC (Bld) 65.2 % Normal 37.0-75.0 [facility] Comment on above: Performed By: #### C MPF MG, ACBC #### Testing performed at [address] [address] Erythrocyte distribution width (RBC) [Ratio] 14.3 % Normal 11.5-14.5 [facility] Comment on above: Performed By: #### C MPF, MG, ACBC #### Testing performed at [address] [address] Hematocrit (Bld) [Volume fraction] 45.4 % Normal 42.0-52.0 [facility] Comment on above: Performed By: #### C MPF, MG, ACBC #### Testing performed at [address] [address] Hemoglobin (Bld) [Mass/Vol] 15.5 g/dL Normal 14.0-18.0 [facility] Comment on above: Performed By: #### C MPF, MG, ACBC #### Testing performed at [address] [address] MCH (RBC) [Entitic mass] 30.8 pg Normal 26.0-35.0 [facility] Comment on above: Performed By: #### C MPF, MG, ACBC #### Testing performed at [address] [address] MCHC (RBC) [Mass/Vol] 34.2 g/dL Normal 27.0-37.0 [facility] Comment on above: Performed By: #### C MPF, MG, ACBC #### Testing performed at [address] [address] MCV (RBC) [Entitic vol] 90.2 fL Normal 80.0-100.0 [facility] Comment on above: Performed By: #### C MPF, MG, ACBC #### Testing performed at [address] [address] Platelet mean volume (Bld) [Entitic vol] 7.3 fL Low 7.4-11.0 [facility] Comment on above: Performed By: #### C MPF, MG, ACBC #### Testing performed at [address] [address] Platelets (Bld) [#/Vol] 377 10*3/uL Normal 130-400 [facility] Comment on above: Performed By: #### C MPF, MG, ACBC #### Testing performed at [address] [address] RBC (Bld) [#/Vol] 5.04 10*6/uL Normal 4.0-6.1 [facility] Comment on above: Performed By: #### C MPF, MG, ACBC #### Testing performed at [address] [address] WBC (Bld) [#/Vol] 7.6 10*3/uL Normal 3.6-11.0 [facility] Comment on above: Performed By: #### C MPF, MG, ACBC #### Testing performed at [address] [address] CBC, EDIF, PLATELETon 2023 ABSOLUTE BASOPHIL COUNT 0.0 10*3/uL 0.0 - 0.2 10*3/uL [facility] Basophils/100 WBC (Bld) 0.7 % 0.0 - 2.0 % [facility] Differential cell count method Nom (Bld) AUTO DIFF % [facility] Eosinophils (Bld) [#/Vol] 0.4 10*3/uL 0.0 - 0.7 10*3/uL [facility] Eosinophils/100 WBC (Bld) 5.2 % 0.0 - 11.0 % [facility] Erythrocyte distribution width (RBC) [Ratio] 14.3 % 11.5 - 14.5 % [facility] Hematocrit (Bld) [Volume fraction] 45.4 % 42.0 - 52.0 % [facility] Hemoglobin (Bld) [Mass/Vol] 15.5 g/dL [facility] Interpretation and review of laboratory results Abnormal [facility] Lymphocytes (Bld) [#/Vol] 1.4 10*3/uL 1.2 - 3.4 10*3/uL [facility] Lymphocytes/100 WBC (Bld) 18.6 % Low 20.0 - 55.0 % [facility] MCH (RBC) [Entitic mass] 30.8 pg 26.0 - 35.0 PG [facility] MCHC (RBC) [Mass/Vol] 34.2 g/dL [facility] MCV (RBC) [Entitic vol] 90.2 fL [facility] Monocytes (Bld) [#/Vol] 0.8 10*3/uL High 0.0 - 0.7 10*3/uL [facility] Monocytes/100 WBC (Bld) 10.3 % High 0.0 - 10.0 % [facility] Neutrophils (Bld) [#/Vol] 4.9 10*3/uL 1.4 - 6.5 10*3/uL [facility] Neutrophils/100 WBC (Bld) 65.2 % 37.0 - 75.0 % [facility] Platelet mean volume (Bld) [Entitic vol] 7.3 fL Low [facility] Platelets (Bld) [#/Vol] 377 10*3/uL 130 - 400 10*3/uL [facility] RBC (Bld) [#/Vol] 5.04 10*6/uL 4.0 - 6.1 10*6/uL [facility] WBC (Bld) [#/Vol] 7.6 10*3/uL 3.6 - 11.0 10*3/uL [facility] CMP FASTINGon 12-07-2023 A:G RATIO 1.4 RATIO Normal [facility] Comment on above: Performed By: #### C MG MAGGY ACBC #### Testing performed at [address] [address] ALBUMIN 4.0 G/dl Normal 3.5-5.0 [facility] Comment on above: Performed By: #### C MPMG Pawan ACBC #### Testing performed at [address] [address] ALP [Catalytic activity/Vol] 99 U/L Normal 38-126 [facility] Comment on above: Performed By: #### C MG MAGGY ACBC #### Testing performed at [address] [address] ALT [Catalytic activity/Vol] 21 U/L Normal <50 [facility] Comment on above: Performed By: #### C MG MAGGY ACBC #### Testing performed at [address] [address] AST [Catalytic activity/Vol] 20 U/L Normal 17-59 [facility] Comment on above: Performed By: #### C MG MAGGY ACBC #### Testing performed at [address] [address] Bilirubin [Mass/Vol] 0.4 mg/dL Normal 0.2-1.3 [facility] Comment on above: Performed By: #### C MPPawan MG ACBC #### Testing performed at [address] [address] Calcium [Mass/Vol] 8.6 mg/dL Normal 8.4-10.2 [facility] Comment on above: Performed By: #### C MPPawan MG ACBC #### Testing performed at [address] [address] Chloride [Moles/Vol] 105 mmol/L Normal 98-107 [facility] Comment on above: Result Comment: [place] domínguez note: Triglyceride levels of 600mg/dL or higher may positively bias chloride results by approximately 2.1 mmol Performed By: #### C MPF MG, ACBC #### Testing performed at [address] [address] CO2 [Moles/Vol] 29 mmol/L Normal 22-30 [facility] Comment on above: Performed By: #### C MPF, MG, ACBC #### Testing performed at [address] [address] Creatinine [Mass/Vol] 1.30 mg/dL High 0.70-1.20 [facility] Comment on above: Performed By: #### C MPF, MG, ACBC #### Testing performed at [address] [address] EST. GFR, 70 ml/min/1.73sq.m [facility] Comment on above: Performed By: #### C MPF, MG, ACBC #### Testing performed at [address] [address] EST. GFR,Non 58 ml/min/1.73sq.m [facility] Comment on above: Performed By: #### C MPF, MG, ACBC #### Testing performed at [address] [address] GFR Information Average GFR for 70+ years old = 75. Normal [facility] Comment on above: Result Comment: Rd Mechanical Engineer isaiah Kidney disease, GFR = <60. Kidney failure, GFR = <15. The GFR estimate is not adjusted for extreme body surface area or acute process, nor has it been validated for women or ethnic groups other than and . Performed By: #### C MPF, MG, ACBC #### Testing performed at [address] [address] Glucose [Mass/Vol] 111 mg/dL High 70-100 [facility] Comment on above: Result Comment: NORMAL <100 mg/dL PREDIABETES 101-126 mg/dL DIABETES 126 mg/dL or higher Performed By: #### C MPF, MG, ACBC #### Testing performed at [address] [address] Potassium [Moles/Vol] 4.1 mmol/L Normal 3.5-5.1 [facility] Comment on above: Performed By: #### C MPF, MG, ACBC #### Testing performed at [address] [address] Protein [Mass/Vol] 6.8 g/dL Normal 6.3-8.2 [facility] Comment on above: Performed By: #### C MPF, MG, ACBC #### Testing performed at [address] [address] Sodium [Moles/Vol] 138 mmol/L Normal 137-145 [facility] Comment on above: Performed By: #### C MPF, MG, ACBC #### Testing performed at [address] [address] Urea nitrogen [Mass/Vol] 18 mg/dL Normal 7-20 [facility] Comment on above: Performed By: #### C MPF, MG, ACBC #### Testing performed at [address] [address] COMPREHENSIVE METABOLIC PANE Karri 12-07-2023 Albumin [Mass/Vol] 4.0 G/dl 3.5 - 5.0 G/dl [facility] Albumin/Globulin [Mass ratio] 1.4 {ratio} RATIO [facility] ALP [Catalytic activity/Vol] 99 U/L [facility] ALT [Catalytic activity/Vol] 21 U/L NINF [facility] AST [Catalytic activity/Vol] 20 U/L [facility] Bilirubin [Mass/Vol] 0.4 mg/dL [facility] Calcium [Mass/Vol] 8.6 mg/dL [facility] Chloride [Moles/Vol] 105 mmol/L [facility] Comment on above: Please note: Triglyc eride levels of 600mg/dL or higher may positively bias chloride results by approximately 2.1 mmol CO2 [Moles/Vol] 29 mmol/L [facility] Creatinine [Mass/Vol] 1.30 mg/dL High [facility] GFR COMMENT Average GFR for 70+ years old = 75. [facility] Comment on above: Chronic Kidney disea se, GFR = <60. Kidney failure, GFR = <15. The GFR estimate is not adjusted for extreme body surface area or acute process, nor has it been validated for women or ethnic groups other than and . GFR/1.73 sq M.predicted among blacks MDRD (S/P/Bld) [Vol rate/Area] 70 mL/min/{1.73_m2} ml/min/1.73sq .m [facility] GFR/1.73 sq M.predicted among non-blacks MDRD (S/P/Bld) [Vol rate/Area] 58 mL/min/{1.73_m2} ml/min/1.73sq .m [facility] Glucose post fast [Mass/Vol] 111 mg/dL High [facility] Comment on above: NORMAL <100 mg/dL PREDIABETES 101-126 mg/dL DIABETES 126 mg/dL or higher Interpretation and review of laboratory results Abnormal [facility] Potassium [Moles/Vol] 4.1 mmol/L [facility] Protein [Mass/Vol] 6.8 g/dL [facility] Sodium [Moles/Vol] 138 mmol/L [facility] Urea nitrogen [Mass/Vol] 18 mg/dL [facility] INFLUENZA A AND B, PCRon FLUAV and FLUBV Ag IF Nom (Unsp spec) Negative NEGATIVE [facility] FLUBV Ag IA Ql (Unsp spec) Negative NEGATIVE [facility] Comment on above: TESTING PERFORMED BY [place] MAGNESIUMon 12-07-2023 Magnesium [Mass/Vol] 2.3 mg/dL [facility] Magnesium [Mass/Vol] 2.3 mg/dL Normal 1.6-2.3 [facility] Comment on above: Performed By: #### C MPF, MG, ACBC #### [place] [address] NOVEL CORONAVIRUSon 12-07-19 24 NARRATIVE This test was performed using isothermal [place] and has been approved as Emergency Use Authorization (EUA) for the qualitative detection [id number] nucleic acid. Normal [facility] Comment on above: Performed By: #### T ROHS #### Testing performed at [place] [id number] SARS-CoV-2 (COVID-19) RNA [place]+probe Ql (Unsp spec) Not detected Normal NOT DETECTED [facility] Comment on above: Result Comment: Nega [...] ill or clinically deteriorating. Performed By: #### T ROHS #### Testing performed at [address] [address] NOVEL CORONAVIRUS LAB 1 - NA SOPHARYNGEALon 12-07-2023 NARRATIVE -1 This test was performed using isothermal [place] and has been approved as Emergency Use Authorization (EUA) for the qualitative detection [id number] nucleic acid. [facility] SARS-CoV-2 (COVID-19) RNA [place]+probe Ql (Unsp spec) Not detected NOT DETECTED [facility] Comment on above: Negative results do [...] patient is critically ill or clinically deteriorating. [facility] No Panel Informationon 12-06 [facility] RAPID FLU Aon 12-07-2023 INFLUENZA A Negative Normal NEGATIVE [facility] Comment on above: Performed By: #### T ROHS #### Testing performed at [address] [address] INFLUENZA B Negative Normal NEGATIVE [facility] Comment on above: Result Comment: TEST ING PERFORMED BY [place] Performed By: #### T ROHS #### Testing performed at [address] [place] [address] RESPIRATORY SYNCYTIAL VIRUS PCRon 12-07-2023 RSV Ag IA Ql (Unsp spec) Negative NEGATIVE [facility] RSVon 12-07-2023 RSV Negative Normal NEGATIVE [facility] Comment on above: Performed By: #### T ROHS #### Testing performed at [address] [address] TROPONIN I, HIGH SENSITIVITY on 12-07-2023 TROPONIN I, HIGH SENSITIVITY 16 pg/mL 0 - 20 pg/mL [facility] Comment on above: Indeterminant: >12 to 100 pg/mL female >20 to 100 pg/mL male Indicative of myocardial injury. Serial sampling is recommended, a change of greater than or equal to 20 pg/mL is indicative of acute coronary syndrome. [facility] TROPONIN I, HIGH SENSITIVITY 16 pg/mL Normal 0-20 [facility] Comment on above: Result Comment: Indeterminant: >12 to 100 pg/mL female >20 to 100 pg/mL male Indicative of myocardial injury. Serial sampling is recommended, a change of greater than or equal to 20 pg/mL is indicative of acute coronary syndrome. Performed By: #### T ROHS #### Testing performed at [address] [address] XR CHEST PA 1 VIEWon 024 XR CHEST PA 1 VIEW XR CHEST PA 1 VIEW 12/06/2023 11:47 PM CDT: History: Shortness of breath Comparison: 08/23/2023 Technique: 1 view chest Findings: The cardiomediastinal silhouette is normal. The lungs are clear without infiltrate, effusion, or pneumothorax. The bones are intact. Impression: No acute cardiopulmonary process. Normal [facility] XR Chest PA uprighton 2023 Impression: No acute cardiopulmonary process. RADIOLOGY XR CHEST PA 1 VIEW 12/06/2023 11:47 PM CDT: History: Shortness of breath Comparison: 08/23/2023 Technique: 1 view chest Findings: The cardiomediastinal silhouette is normal. The lungs are clear without infiltrate, effusion, or pneumothorax. The bones are intact. RADIOLOGY Nate Corona III, MD - 12/07/2023 XR CHEST PA 1 VIEW 12/06/2023 11:47 PM CDT: History: Shortness of breath Comparison: 08/23/2023 Technique: 1 view chest Findings: The cardiomediastinal silhouette is normal. The lungs are clear without infiltrate, effusion, or pneumothorax. The bones are intact. IMPRESSION Impression: No acute cardiopulmonary process. [facility] Study observation (narrative) [facility] XR Chest PA uprightOrdered B y: Nate Corona on 12-07-2023 [facility] SPECT Heart perfusion at res t and [...] HR: 61 bpm Max Heart Rate (APMHR): 147.583919 bpm Max HR Achieved: 78 bpm Target HR (85% APMHR): 124.941960 bpm % of APMHR: 53.06 Recovery HR: 67 bpm HR response to stress: Normal HR response to stress BP Resting BP: 130/74 mmHg Max BP: 137/78 mmHg BP response to stress: Normal blood pressure response to stress. ECG Resting ECG: normal ST Change: none Arrhythmia: none Conclusion nondiagnostic stress test, O2 sat 96% CARDIOLOGY David Yepez, - 11/01/2023 ADDENDUM APPROVED REPORT NM EXAM: [...] Resting HR: 61 bpmMax Heart Rate (APMHR): 147.271172 bpm Max HR Achieved: 78 bpmTarget HR (85% APMHR): 124.110205 bpm % of APMHR: 53.06 Recovery HR: 67 bpm HR response to stress: Normal HR response to stress BP Resting BP: 130/74 mmHg Max BP: 137/78 mmHg BP response to stress: Normal blood pressure response to stress. ECG Resting ECG: normal ST Change: none Arrhythmia: none Conclusion nondiagnostic stress test, O2 sat 96% [facility] Radiology Study observation (narrative) [facility] SPECT Heart perfusion at res t and W stress and W radionuclide IVOrdered By: David Yepez on 10-31-2023 [facility] Work Phone: CBCon 08-23-2023 ABSOLUTE BAS 0.0 10*3/uL Normal 0.0-0.2 [facility] Comment on above: Performed By: #### A CBC, CMPF #### Testing performed at [address] [address] ABSOLUTE EOS 0.1 10*3/uL Normal 0.0-0.7 [facility] Comment on above: Performed By: #### A CBC, CMPF #### Testing performed at [address] [address] ABSOLUTE NEUTROPHIL COUNT 1.9 10*3/uL Normal 1.4-6.5 [facility] Comment on above: Performed By: #### A CBC, CMPF #### Testing performed at [address] [address] Basophils/100 WBC (Bld) 0.7 % Normal 0.0-2.0 [facility] Comment on above: Performed By: #### A CBC, CMPF #### Testing performed at [address] [address] DTYPE AUTO DIFF Normal [facility] Comment on above: Performed By: #### A CBC, CMPF #### Testing performed at [address] [address] Eosinophils/100 WBC (Bld) 3.0 % Normal 0.0-11.0 [facility] Comment on above: Performed By: #### A CBC, CMPF #### Testing performed at [address] [address] Lymphocytes (Bld) [#/Vol] 1.7 10*3/uL Normal 1.2-3.4 [facility] Comment on above: Performed By: #### A CBC, CMPF #### Testing performed at [address] [address] Lymphocytes/100 WBC (Bld) 37.8 % Normal 20.0-55.0 [facility] Comment on above: Performed By: #### A CBC, CMPF #### Testing performed at [address] [address] Monocytes (Bld) [#/Vol] 0.8 10*3/uL High 0.0-0.7 [facility] Comment on above: Performed By: #### A CBC, CMPF #### Testing performed at [address] [address] Monocytes/100 WBC (Bld) 17.1 % High 0.0-10.0 [facility] Comment on above: Performed By: #### A CBC, CMPF #### Testing performed at [address] [address] Neutrophils/100 WBC (Bld) 41.4 % Normal 37.0-75.0 [facility] Comment on above: Performed By: #### A CBC, CMPF #### Testing performed at [address] [address] Erythrocyte distribution width (RBC) [Ratio] 14.4 % Normal 11.5-14.5 [facility] Comment on above: Performed By: #### A CBC, CMPF #### Testing performed at [address] [address] Hematocrit (Bld) [Volume fraction] 46.2 % Normal 42.0-52.0 [facility] Comment on above: Performed By: #### A CBC, CMPF #### Testing performed at [address] [address] Hemoglobin (Bld) [Mass/Vol] 15.8 g/dL Normal 14.0-18.0 [facility] Comment on above: Performed By: #### A CBC, CMPF #### Testing performed at [address] [address] MCH (RBC) [Entitic mass] 30.7 pg Normal 26.0-35.0 [facility] Comment on above: Performed By: #### A CBC, CMPF #### Testing performed at [address] [address] MCHC (RBC) [Mass/Vol] 34.3 g/dL Normal 27.0-37.0 [facility] Comment on above: Performed By: #### A CBC, CMPF #### Testing performed at [address] [address] MCV (RBC) [Entitic vol] 89.4 fL Normal 80.0-100.0 [facility] Comment on above: Performed By: #### A CBC, CMPF #### Testing performed at [address] [address] Platelet mean volume (Bld) [Entitic vol] 7.1 fL Low 7.4-11.0 [facility] Comment on above: Performed By: #### A CBC, CMPF #### Testing performed at [address] [address] Platelets (Bld) [#/Vol] 231 10*3/uL Normal 130-400 [facility] Comment on above: Performed By: #### A CBC, CMPF #### Testing performed at [address] [address] RBC (Bld) [#/Vol] 5.16 10*6/uL Normal 4.0-6.1 [facility] Comment on above: Performed By: #### A CBC, CMPF #### Testing performed at [address] [address] WBC (Bld) [#/Vol] 4.6 10*3/uL Normal 3.6-11.0 [facility] Comment on above: Performed By: #### A CBC, CMPF #### Testing performed at [address] [address] CBC, EDIF, PLATELETon 2023 ABSOLUTE BASOPHIL COUNT 0.0 10*3/uL 0.0 - 0.2 10*3/uL [facility] Basophils/100 WBC (Bld) 0.7 % 0.0 - 2.0 % [facility] Differential cell count method Nom (Bld) AUTO DIFF % [facility] Eosinophils (Bld) [#/Vol] 0.1 10*3/uL 0.0 - 0.7 10*3/uL [facility] Eosinophils/100 WBC (Bld) 3.0 % 0.0 - 11.0 % [facility] Erythrocyte distribution width (RBC) [Ratio] 14.4 % 11.5 - 14.5 % [facility] Hematocrit (Bld) [Volume fraction] 46.2 % 42.0 - 52.0 % [facility] Hemoglobin (Bld) [Mass/Vol] 15.8 g/dL [facility] Interpretation and review of laboratory results Abnormal [facility] Lymphocytes (Bld) [#/Vol] 1.7 10*3/uL 1.2 - 3.4 10*3/uL [facility] Lymphocytes/100 WBC (Bld) 37.8 % 20.0 - 55.0 % [facility] MCH (RBC) [Entitic mass] 30.7 pg 26.0 - 35.0 PG [facility] MCHC (RBC) [Mass/Vol] 34.3 g/dL [facility] MCV (RBC) [Entitic vol] 89.4 fL [facility] Monocytes (Bld) [#/Vol] 0.8 10*3/uL High 0.0 - 0.7 10*3/uL [facility] Monocytes/100 WBC (Bld) 17.1 % High 0.0 - 10.0 % [facility] Neutrophils (Bld) [#/Vol] 1.9 10*3/uL 1.4 - 6.5 10*3/uL [facility] Neutrophils/100 WBC (Bld) 41.4 % 37.0 - 75.0 % [facility] Platelet mean volume (Bld) [Entitic vol] 7.1 fL Low [facility] Platelets (Bld) [#/Vol] 231 10*3/uL 130 - 400 10*3/uL [facility] RBC (Bld) [#/Vol] 5.16 10*6/uL 4.0 - 6.1 10*6/uL [facility] WBC (Bld) [#/Vol] 4.6 10*3/uL 3.6 - 11.0 10*3/uL [facility] CMP FASTINGon 08-23-2023 A:G RATIO 1.4 RATIO Normal [facility] Comment on above: Performed By: #### T ROHS #### Testing performed at [address] [address] ALBUMIN 4.1 G/dl Normal 3.5-5.0 [facility] Comment on above: Performed By: #### T ROHS #### Testing performed at [address] [address] ALP [Catalytic activity/Vol] 95 U/L Normal 38-126 [facility] Comment on above: Performed By: #### T ROHS #### Testing performed at [address] [address] ALT [Catalytic activity/Vol] 24 U/L Normal <50 [facility] Comment on above: Performed By: #### T ROHS #### Testing performed at [address] [address] AST [Catalytic activity/Vol] 31 U/L Normal 17-59 [facility] Comment on above: Performed By: #### T ROHS #### Testing performed at [address] [address] Bilirubin [Mass/Vol] 0.5 mg/dL Normal 0.2-1.3 [facility] Comment on above: Performed By: #### T ROHS #### Testing performed at [address] [address] Calcium [Mass/Vol] 8.4 mg/dL Normal 8.4-10.2 [facility] Comment on above: Performed By: #### T ROHS #### Testing performed at [address] [address] Chloride [Moles/Vol] 103 mmol/L Normal 98-107 [facility] Comment on above: Result Comment: Paris domínguez note: Triglyceride levels of 600mg/dL or higher may positively bias chloride results by approximately 2.1 mmol Performed By: #### T ROHS #### Testing performed at [address] [address] CO2 [Moles/Vol] 27 mmol/L Normal 22-30 [facility] Comment on above: Performed By: #### T ROHS #### Testing performed at [address] [address] Creatinine [Mass/Vol] 1.10 mg/dL Normal 0.70-1.20 [facility] Comment on above: Performed By: #### T ROHS #### Testing performed at [address] [address] EST. GFR, 84 ml/min/1.73sq.m [facility] Comment on above: Performed By: #### T ROHS #### Testing performed at [address] [address] EST. GFR,Non 70 ml/min/1.73sq.m [facility] Comment on above: Performed By: #### T ROHS #### Testing performed at [address] [address] GFR Information Average GFR for 70+ years old = 75. Normal [facility] Comment on above: Result Comment: [employer] isaiah Kidney disease, GFR = <60. Kidney failure, GFR = <15. The GFR estimate is not adjusted for extreme body surface area or acute process, nor has it been validated for women or ethnic groups other than and . Performed By: #### T ROHS #### Testing performed at [address] [address] Glucose [Mass/Vol] 100 mg/dL Normal 70-100 [facility] Comment on above: Result Comment: NORMAL <100 mg/dL PREDIABETES 101-126 mg/dL DIABETES 126 mg/dL or higher Performed By: #### T ROHS #### Testing performed at [address] [address] Potassium [Moles/Vol] 3.8 mmol/L Normal 3.5-5.1 [facility] Comment on above: Performed By: #### T ROHS #### Testing performed at [address] [address] Protein [Mass/Vol] 7.1 g/dL Normal 6.3-8.2 [facility] Comment on above: Performed By: #### T ROHS #### Testing performed at [address] [address] Sodium [Moles/Vol] 135 mmol/L Low 137-145 [facility] Comment on above: Performed By: #### T ROHS #### Testing performed at [address] [address] Urea nitrogen [Mass/Vol] 14 mg/dL Normal 7-20 [facility] Comment on above: Performed By: #### T ROHS #### Testing performed at [address] [address] COMPREHENSIVE METABOLIC PANE Karri 08-23-2023 Albumin [Mass/Vol] 4.1 G/dl 3.5 - 5.0 G/dl [facility] Albumin/Globulin [Mass ratio] 1.4 {ratio} RATIO [facility] ALP [Catalytic activity/Vol] 95 U/L [facility] ALT [Catalytic activity/Vol] 24 U/L NINF [facility] AST [Catalytic activity/Vol] 31 U/L [facility] Bilirubin [Mass/Vol] 0.5 mg/dL [facility] Calcium [Mass/Vol] 8.4 mg/dL [facility] Chloride [Moles/Vol] 103 mmol/L [facility] Comment on above: Please note: Triglyc eride levels of 600mg/dL or higher may positively bias chloride results by approximately 2.1 mmol CO2 [Moles/Vol] 27 mmol/L [facility] Creatinine [Mass/Vol] 1.10 mg/dL [facility] GFR COMMENT Average GFR for 70+ years old = 75. [facility] Comment on above: Chronic Kidney disea se, GFR = <60. Kidney failure, GFR = <15. The GFR estimate is not adjusted for extreme body surface area or acute process, nor has it been validated for women or ethnic groups other than and . GFR/1.73 sq M.predicted among blacks MDRD (S/P/Bld) [Vol rate/Area] 84 mL/min/{1.73_m2} ml/min/1.73sq .m [facility] GFR/1.73 sq M.predicted among non-blacks MDRD (S/P/Bld) [Vol rate/Area] 70 mL/min/{1.73_m2} ml/min/1.73sq .m [facility] Glucose post fast [Mass/Vol] 100 mg/dL [facility] Comment on above: NORMAL <100 mg/dL PREDIABETES 101-126 mg/dL DIABETES 126 mg/dL or higher Interpretation and review of laboratory results Abnormal [facility] Potassium [Moles/Vol] 3.8 mmol/L [facility] Protein [Mass/Vol] 7.1 g/dL [facility] Sodium [Moles/Vol] 135 mmol/L Low [facility] Urea nitrogen [Mass/Vol] 14 mg/dL [facility] CT PE STUDYon 08-23-2023 CT PE [...] pulmonary embolus or acute intrathoracic abnormality. Normal [facility] CT Pulmonary arteries for pu lmonary [...] of pulmonary embolus or acute intrathoracic abnormality. [facility] Radiology Study observation (narrative) [facility] CT Pulmonary arteries for pu lmonary embolusOrdered By: Tabby Reynaga on 08-23-2023 [facility] Work Phone: D DIMERon 08-23-2023 D DIMER 0.52 ??g/ml Critically high <0.50 [facility] Comment on above: Result Comment: If r esult is greater than the cutoff value of 0.56 mg/L then the potential for PE or DVT exists. Other conditions exist which may cause a falsely elevated level. Please correlate clinically, including radiological findings and other clinical parameters. Result called to and read back by: USHA 08/23/2023 @ 17:50 by MMB Performed By: #### D DIMER #### Testing performed at [address] [place] [address] D-DIMER,QUANTITATIVEon 08-23 Fibrin D-dimer FEU (PPP) [Mass/Vol] 0.52 Critically high NINF [facility] Comment on above: If result is greater than the cutoff value of 0.56 mg/L then the potential for PE or DVT exists. Other conditions exist which may cause a falsely elevated level. Please correlate clinically, including radiological findings and other clinical parameters. Result called to and read back by: USHA 08/23/2023 @ 17:50 by MMB Interpretation and review of laboratory results Abnormal [facility] INFLUENZA A AND B, PCRon FLUAV and FLUBV Ag IF Nom (Unsp spec) Negative NEGATIVE [facility] FLUBV Ag IA Ql (Unsp spec) Negative NEGATIVE [facility] Comment on above: TESTING PERFORMED BY [place] [facility] NOVEL CORONAVIRUSon 08-23-19 24 NARRATIVE This test was performed using isothermal [place] and has been approved as Emergency Use Authorization (EUA) for the qualitative detection [id number] nucleic acid. Normal [facility] Comment on above: Performed By: #### T ROHS #### Testing performed at [address] [place] [address] SARS-CoV-2 (COVID-19) RNA [place]+probe Ql (Unsp spec) Not detected Normal NOT DETECTED [facility] Comment on above: Result Comment: Nega [...] ill or clinically deteriorating. Performed By: #### T ROHS #### [place] [address] NOVEL CORONAVIRUS LAB 1 - NA SOPHARYNGEALon 08-23-2023 NARRATIVE -1 This test was performed using isothermal [place] and has been approved as Emergency Use Authorization (EUA) for the qualitative detection [id number] nucleic acid. [facility] SARS-CoV-2 (COVID-19) RNA [place]+probe Ql (Unsp spec) Not detected NOT DETECTED [facility] Comment on above: Negative results do [...] patient is critically ill or clinically deteriorating. [facility] RAPID FLU Aon 08-23-2023 INFLUENZA A Negative Normal NEGATIVE [facility] Comment on above: Performed By: #### R FLUAB #### Testing performed at [address] [address] INFLUENZA B Negative Normal NEGATIVE [facility] Comment on above: Result Comment: TEST ING PERFORMED BY [place] Performed By: #### R FLUAB #### Testing performed at [address] [address] RESPIRATORY SYNCYTIAL VIRUS PCRon 08-23-2023 RSV Ag IA Ql (Unsp spec) Negative NEGATIVE [facility] RSVon 08-23-2023 RSV Negative Normal NEGATIVE [facility] Comment on above: Performed By: #### T ROHS #### Testing performed at [address] [address] TROPONIN I, HIGH SENSITIVITY on 08-23-2023 TROPONIN I, HIGH SENSITIVITY 3 pg/mL 0 - 20 pg/mL [facility] Comment on above: Indeterminant: >12 to 100 pg/mL female >20 to 100 pg/mL male Indicative of myocardial injury. Serial sampling is recommended, a change of greater than or equal to 20 pg/mL is indicative of acute coronary syndrome. [facility] TROPONIN I, HIGH SENSITIVITY 3 pg/mL Normal 0-20 [facility] Comment on above: Result Comment: Indeterminant: >12 to 100 pg/mL female >20 to 100 pg/mL male Indicative of myocardial injury. Serial sampling is recommended, a change of greater than or equal to 20 pg/mL is indicative of acute coronary syndrome. Performed By: #### T ROHS #### Testing performed at [facility] [address] [place] [address] XR CHEST PA 1 VIEWon 024 XR [...] There is no acute cardiopulmonary process. Normal [facility] XR Chest PA uprighton 2023 IMPRESSION: [...] IMPRESSION: There is no acute cardiopulmonary process. [facility] Radiology Study observation (narrative) [facility] XR Chest PA uprightOrdered B y: Raymond Adams on 08-23-2023 [facility] Work Phone: CT NECK WITH CONTRASTon 04-26 CT NECK [...] Small incidental 1.3 cm left laryngocele. Normal [facility] CT Neck W contrast Ceci 04-26 [...] 2. 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 [facility] Study observation (narrative) [facility] CT Neck W contrast IVOrdered By: Jessenia Stewart on 05-11-2023 [facility] Work Phone: US Neckon 04-10-2023 IMPRESSION: The area of [...] could further investigate a suspicious palpable lesion [facility] Study observation (narrative) [facility] US NeckOrdered By: Edwin Nichole on 04-10-2023 [facility] Work Phone: CBC AUTO DIFFon 11-23-2022 BASO # 0.1 103/ul Normal 0.0-0.1 [facility] Comment on above: Performed By: #### C MP, BNP, YESI #### [facility] [address] [place] [address] Dr. Emilie Stack Basophils/100 WBC (Bld) 0.9 % Normal 0.2-2.0 [facility] Comment on above: Performed By: #### C MP, BNP, YESI #### [facility] [address] [place] [address] Dr. Emilie Stack EO # 0.0 103/ul Normal 0.0-0.7 [facility] Comment on above: Performed By: #### C MP, BNP, YESI #### [facility] [address] [place] [address] Dr. Emilie Stack Eosinophils/100 WBC (Bld) 0.7 % Critically low 0.9-7.0 [facility] Comment on above: Performed By: #### C MP, BNP, YESI #### [facility] [address] [place] [address] Dr. Emilie Stack Erythrocyte distribution width (RBC) [Ratio] 13.9 % Normal 11.0-15.0 [facility] Comment on above: Performed By: #### C MP, BNP, YESI #### [facility] [address] [place] [address] Dr. Emilie Stack Hematocrit (Bld) [Volume fraction] 45.3 % Normal 42.0-54.0 [facility] Comment on above: Performed By: #### C MP, BNP, YESI #### [facility] [address] [place] [address] Dr. Emilie Stack Hemoglobin (Bld) [Mass/Vol] 15.2 g/dL Normal 14.0-18.0 [facility] Comment on above: Performed By: #### C MP, BNP, YESI #### [facility] [address] [place] [address] Dr. Emilie Stack IG # 0.02 10e3/ul Normal 0.00-0.03 [facility] Comment on above: Performed By: #### C MP, BNP, YESI #### [facility] [address] [address] [address] Emilie Stack IG % 0.4 % Normal 0.0-0.5 [facility] Comment on above: Performed By: #### C MP, BNP, YESI #### [facility] [address] [place] [address] Dr. Emilie Stack LYMPH # 0.9 103/ul Critically low 1.2-3.8 [facility] Comment on above: Performed By: #### C MP, BNP, YESI #### [facility] [address] [place] [address] Dr. Emilie Stack Lymphocytes/100 WBC (Bld) 16.2 % Critically low 20.5-60.0 [facility] Comment on above: Performed By: #### C MP, BNP, YESI #### [facility] [address] [place] [address] Dr. Emilie Stack MANUAL DIFF REQ NO Normal [facility] Comment on above: Performed By: #### C MP, BNP, YESI #### [facility] [address] [place] [address] Dr. Emilie Stack MCH (RBC) [Entitic mass] 30.5 pg Normal 25.9-34.0 [facility] Comment on above: Performed By: #### C MP, BNP, YESI #### [facility] [address] [place] [address] Dr. Emilie Stack MCHC (RBC) [Mass/Vol] 33.6 g/dL Normal 29.9-35.2 [facility] Comment on above: Performed By: #### C MP, BNP, YESI #### [facility] [address] [place] [address] Dr. Emilie Stack MCV (RBC) [Entitic vol] 90.8 fL Normal 80.0-94.0 [facility] Comment on above: Performed By: #### C MP, BNP, YESI #### [facility] [address] [place] [address] Dr. Emilie Stack MONO # 0.8 103/ul Normal 0.3-0.8 [facility] Comment on above: Performed By: #### C MP, BNP, YESI #### [facility] [address] [place] [address] Dr. Emilie Stack Monocytes/100 WBC (Bld) 15.1 % Critically high 1.7-12.0 [facility] Comment on above: Performed By: #### C MP, BNP, YESI #### [facility] [address] [place] [address] Dr. Emilie Stack NEUT # 3.7 103/ul Normal 1.4-6.5 [facility] Comment on above: Performed By: #### C MP, BNP, YESI #### [facility] [address] [place] [address] Dr. Emilie Stack Neutrophils/100 WBC (Bld) 66.7 % Normal 43.0-75.0 [facility] Comment on above: Performed By: #### C MP, BNP, YESI #### [facility] [address] [place] [address] Dr. Emilie Stack Platelet mean volume (Bld) [Entitic vol] 8.6 fL Critically low 9.5-13.5 [facility] Comment on above: Performed By: #### C MP, BNP, YESI #### [facility] [address] [place] [address] Dr. Emilie Stack PLT 301 103/ul Normal 150-450 [facility] Comment on above: Performed By: #### C MP, BNP, YESI #### [facility] [address] [place] [address] Dr. Emilie Stack RBC 4.99 106/ul Normal 4.70-6.10 [facility] Comment on above: Performed By: #### C MP, BNP, YESI #### [facility] [address] [place] [address] Dr. Emilie Stack WBC 5.5 103/ul Normal 4.0-11.0 [facility] Comment on above: Performed By: #### C MP, BNP, YESI #### [facility] [address] [place] [address] Dr. Emilie Stack Covid-19 PCR (CVDTBH)on 10-26 SARS-CoV-2 (COVID-19) RNA [place]+probe Ql (Unsp spec) Not detected Normal NOT DETECTED [facility] Comment on above: Result Comment: THIS TEST IS NOT APPROVED BY THE FDA. IT HAS BEEN AUTHORIZED FOR USE UNDER AN EMERGENCY USE AUTHORIZATION. Performed By: #### T ROSSY CMP, BNP #### [facility] [address] [place] [address] Dr. Emilie Stack PROF CHEM 8 (BAS METB)on Anion gap [Moles/Vol] 14.2 mmol/L Normal [facility] Comment on above: Performed By: #### C MP, BNP, YESI #### [facility] [address] [place] [address] Dr. Emilie Stack Calcium [Mass/Vol] 8.7 mg/dL Normal 8.5-10.1 [facility] Comment on above: Performed By: #### C MP, BNP, YESI #### [facility] [address] [place] [address] Dr. Emilie Stack Chloride [Moles/Vol] 103 mmol/L Normal 98-107 [facility] Comment on above: Performed By: #### C MP, BNP, YESI #### [facility] [address] [place] [address] Dr. Emilie Stack CO2 [Moles/Vol] 25.9 mmol/L Normal 21.0-32.0 [facility] Comment on above: Performed By: #### C MP, BNP, YESI #### [facility] [address] [place] [address] Dr. Emilie Stack Creatinine [Mass/Vol] 1.16 mg/dL Normal 0.70-1.30 [facility] Comment on above: Performed By: #### C MP, BNP, YESI #### [facility] [address] [address] [address] Emilie Stack EGFR-AF JAPANESE >60 Normal >=60 [facility] Comment on above: Performed By: #### C MP, BNP, YESI #### [facility] [address] [address] [address] Emilie Stack EGFR-NON AF JAPANESE >60 Normal >=60 [facility] Comment on above: Performed By: #### C MP, BNP, YESI #### [facility] [address] [address] [address] Emilie Stack Glucose [Mass/Vol] 100 mg/dL Normal 74-106 [facility] Comment on above: Performed By: #### C MP, BNP, YESI #### [facility] [address] [place] [address] Dr. Emilie Stack Potassium [Moles/Vol] 4.1 mmol/L Normal 3.5-5.1 [facility] Comment on above: Performed By: #### C MP, BNP, YESI #### [facility] [address] [address] [address] Emilie Stack Sodium [Moles/Vol] 139 mmol/L Normal 136-145 [facility] Comment on above: Performed By: #### C MP, BNP, YESI #### [facility] [address] [place] [address] Dr. Emilie Stack Urea nitrogen [Mass/Vol] 10.0 mg/dL Normal 7.0-18.0 [facility] Comment on above: Performed By: #### C MP, BNP, YESI #### [facility] [address] [place] [address] Dr. Emilie Stack Urea nitrogen/Creatinine [Mass ratio] 8.6 mg/mg Normal [facility] Comment on above: Performed By: #### C MP, BNP, YESI #### [facility] [address] [place] [address] Dr. Emilie Stack SYMPTOMATIC COVID-19 ANTIGEN on 11-23-2022 EUA Statement SEE BELOW Normal [facility] Comment on above: Result Comment: [...] is revoked sooner. Performed By: #### T ROSSY, BNP, CMP #### [facility] [address] [place] [address] Dr. Emilie Stack SARS-CoV-2 (COVID-19) RNA [place]+probe Ql (Unsp spec) Negative Normal NEGATIVE [facility] Comment on above: Performed By: #### T ROSSY, BNP, CMP #### [facility] [address] [address] [address] Emilie Stack THEOPHYLLINEon 11-23-2022 THEOPHYLLINE 8.0 ug/mL Critically low 10.0-20.0 [facility] Comment on above: Performed By: #### C MP, BNP, YESI #### [facility] [address] [place] [address] Dr. Emilie Stack XR CHEST 1 Von [...] EDWIN NICHOLE Date: 2022-11-23 12:36 Normal [facility] BNPon 08-15-2022 Natriuretic peptide B (Bld) [Mass/Vol] 107.0 pg/mL Normal <=900.0 [facility] Comment on above: Performed By: #### C MP, BNP, YESI #### [facility] [address] [place] [address] Dr. Emilie Stack CBC AUTO DIFFon 08-15-2022 BASO # 0.0 103/ul Normal 0.0-0.1 [facility] Comment on above: Performed By: #### C MP, BNP, YESI #### [facility] [address] [place] [address] Dr. Emilie Stack Basophils/100 WBC (Bld) 0.2 % Normal 0.2-2.0 [facility] Comment on above: Performed By: #### C MP, BNP, YESI #### [facility] [address] [place] [address] Dr. Emilie Stack EO # 0.0 103/ul Normal 0.0-0.7 [facility] Comment on above: Performed By: #### C MP, BNP, YESI #### [facility] [address] [place] [address] Dr. Emilie Stack Eosinophils/100 WBC (Bld) 0.0 % Critically low 0.9-7.0 [facility] Comment on above: Performed By: #### C MP, BNP, YESI #### [facility] [address] [place] [address] Dr. Emilie Stack Erythrocyte distribution width (RBC) [Ratio] 14.6 % Normal 11.0-15.0 [facility] Comment on above: Performed By: #### C MP, BNP, YESI #### [facility] [address] [place] [address] Dr. Emilie Stack Hematocrit (Bld) [Volume fraction] 41.0 % Critically low 42.0-54.0 [facility] Comment on above: Performed By: #### C MP, BNP, YESI #### [facility] [address] [place] [address] Dr. Emilie Stack Hemoglobin (Bld) [Mass/Vol] 13.8 g/dL Critically low 14.0-18.0 [facility] Comment on above: Performed By: #### C MP, BNP, YESI #### [facility] [address] [place] [address] Dr. Emilie Stack IG # 0.12 10e3/ul Critically high 0.00-0.03 [facility] Comment on above: Performed By: #### C MP, BNP, YESI #### [facility] [address] [place] [address] Dr. Emilie Stack IG % 1.0 % Critically high 0.0-0.[address] [facility] Comment on above: Performed By: #### C MP, BNP, YESI #### [facility] [address] [place] [address] Dr. Emilie Stack LYMPH # 0.5 103/ul Critically low 1.2-3.8 [facility] Comment on above: Performed By: #### C MP, BNP, YESI #### [facility] [address] [place] [address] Dr. Emilie Stack Lymphocytes/100 WBC (Bld) 3.8 % Critically low 20.5-60.0 [facility] Comment on above: Performed By: #### C MP, BNP, YESI #### [facility] [address] [place] [address] Dr. Emilie Stack MANUAL DIFF REQ NO Normal [facility] Comment on above: Performed By: #### C MP, BNP, YESI #### [facility] [address] [place] [address] Dr. Emilie Stack MCH (RBC) [Entitic mass] 30.3 pg Normal 25.9-34.0 [facility] Comment on above: Performed By: #### C MP, BNP, YESI #### [facility] [address] [place] [address] Dr. Emilie Stack MCHC (RBC) [Mass/Vol] 33.7 g/dL Normal 29.9-35.2 [facility] Comment on above: Performed By: #### C MP, BNP, YESI #### [facility] [address] [place] [address] Dr. Emilie Stack MCV (RBC) [Entitic vol] 89.9 fL Normal 80.0-94.0 [facility] Comment on above: Performed By: #### C MP, BNP, YESI #### [facility] [address] [place] [address] Dr. Emilie Stack MONO # 0.8 103/ul Normal 0.3-0.8 [facility] Comment on above: Performed By: #### C MP, BNP, YESI #### [facility] [address] [place] [address] Dr. Emilie Stack Monocytes/100 WBC (Bld) 6.0 % Normal 1.7-12.0 [facility] Comment on above: Performed By: #### C MP, BNP, YESI #### [facility] [address] [place] [address] Dr. Emilie Stack NEUT # 11.1 103/ul Critically high 1.4-6.5 [facility] Comment on above: Performed By: #### C MP, BNP, YESI #### [facility] [address] [place] [address] Dr. Emilie Stack Neutrophils/100 WBC (Bld) 89.0 % Critically high 43.0-75.0 [facility] Comment on above: Performed By: #### C MP, BNP, YESI #### [facility] [address] [place] [address] Dr. Emilie Stack Platelet mean volume (Bld) [Entitic vol] 8.6 fL Critically low 9.5-13.5 [facility] Comment on above: Performed By: #### C MP, BNP, YESI #### [facility] [address] [place] [address] Dr. Emilie Stack PLT 268 103/ul Normal 150-450 [facility] Comment on above: Performed By: #### C MP, BNP, YESI #### [facility] [address] [place] [address] Dr. Emilie Stack RBC 4.56 106/ul Critically low 4.70-6.[address] [facility] Comment on above: Performed By: #### C MP, BNP, YESI #### [facility] [address] [place] [address] Dr. Emilie Stack WBC 12.5 103/ul Critically high 4.0-11.0 [facility] Comment on above: Performed By: #### C MP, BNP, YESI #### [facility] [address] [place] [address] Dr. Emilie Stack PROF 14(COMP METB)on 023 Albumin [Mass/Vol] 3.2 g/dL Critically low 3.4-5.0 [facility] Comment on above: Performed By: #### C MP, BNP, YESI #### [facility] [address] [place] [address] Dr. Emilie Stack Albumin/Globulin [Mass ratio] 1.1 {ratio} Normal [facility] Comment on above: Performed By: #### C MP, BNP, YESI #### [facility] [address] [place] [address] Dr. Emilie Stack ALP [Catalytic activity/Vol] 83 U/L Normal 46-116 [facility] Comment on above: Performed By: #### C MP, BNP, YESI #### [facility] [address] [place] [address] Dr. Emilie Stack ALT [Catalytic activity/Vol] 27 U/L Normal 16-63 [facility] Comment on above: Performed By: #### C MP, BNP, YESI #### [facility] [address] [place] [address] Dr. Emilie Stack Anion gap [Moles/Vol] 13.0 mmol/L Normal [facility] Comment on above: Performed By: #### C MP, BNP, YESI #### [facility] [address] [place] [address] Dr. Emilie Stack AST [Catalytic activity/Vol] 24 U/L Normal 15-37 [facility] Comment on above: Performed By: #### C MP, BNP, YESI #### [facility] [address] [place] [address] Dr. Emilie Stack Bilirubin [Mass/Vol] 0.3 mg/dL Normal 0.2-1.0 [facility] Comment on above: Performed By: #### C MP, BNP, YESI #### [facility] [address] [place] [address] Dr. Emilie Stack Calcium [Mass/Vol] 8.3 mg/dL Critically low 8.5-10.1 [facility] Comment on above: Performed By: #### C MP, BNP, YESI #### [facility] [address] [place] [address] Dr. Emilie Stack Chloride [Moles/Vol] 104 mmol/L Normal 98-107 [facility] Comment on above: Performed By: #### C MP, BNP, YESI #### [facility] [address] [place] [address] Dr. Emilie Stack CO2 [Moles/Vol] 25.8 mmol/L Normal 21.0-32.0 [facility] Comment on above: Performed By: #### C MP, BNP, YESI #### [facility] [address] [place] [address] Dr. Emilie Stack Creatinine [Mass/Vol] 1.17 mg/dL Normal 0.70-1.30 [facility] Comment on above: Performed By: #### C MP, BNP, YESI #### [facility] [address] [place] [address] Dr. Emilie Stack EGFR-AF JAPANESE >60 Normal >=60 [facility] Comment on above: Performed By: #### C MP, BNP, YESI #### [facility] [address] [place] [address] Dr. Emilie Stack EGFR-NON AF JAPANESE >60 Normal >=60 [facility] Comment on above: Performed By: #### C MP, BNP, YESI #### [facility] [address] [place] [address] Dr. Emilie Stack Globulin (S) [Mass/Vol] 3.0 g/dL Normal [facility] Comment on above: Performed By: #### C MP, BNP, YESI #### [facility] [address] [address] [address] Emilie Stack Glucose [Mass/Vol] 179 mg/dL Critically high 74-106 [facility] Comment on above: Performed By: #### C MP, BNP, YESI #### [facility] [address] [place] [address] Dr. Emilie Stack Potassium [Moles/Vol] 3.8 mmol/L Normal 3.5-5.1 [facility] Comment on above: Performed By: #### C MP, BNP, YESI #### [facility] [address] [place] [address] Dr. Emilie Stack Protein [Mass/Vol] 6.2 g/dL Critically low 6.4-8.2 [facility] Comment on above: Performed By: #### C MP, BNP, YESI #### [facility] [address] [place] [address] Dr. Emilie Stack Sodium [Moles/Vol] 139 mmol/L Normal 136-145 [facility] Comment on above: Performed By: #### C MP, BNP, YESI #### [facility] [address] [place] [address] Dr. Emilie Stack Urea nitrogen [Mass/Vol] 23.0 mg/dL Critically high 7.0-18.0 [facility] Comment on above: Performed By: #### C MP, BNP, YESI #### [facility] [address] [place] [address] Dr. Emilie Stack Urea nitrogen/Creatinine [Mass ratio] 19.7 mg/mg Normal [facility] Comment on above: Performed By: #### C MP, BNP, YESI #### [facility] [address] [place] [address] Dr. Emilie Stack THEOPHYLLINEon 08-15-2022 THEOPHYLLINE 10.6 ug/mL Normal 10.0-20.0 [facility] Comment on above: Performed By: #### C MP, BNP, YESI #### [facility] [address] [place] [address] Dr. Emilie Stack BNPon 08-14-2022 Natriuretic peptide B (Bld) [Mass/Vol] 67.0 pg/mL Normal <=900.0 [facility] Comment on above: Performed By: #### T ROSSY, CMP, BNP #### [facility] [address] [place] [address] Dr. Emilie Stack CBC AUTO DIFFon 08-14-2022 BASO # 0.0 103/ul Normal 0.0-0.1 [facility] Comment on above: Performed By: #### C BC #### [facility] [address] [place] [address] Dr. Emilie Stack Basophils/100 WBC (Bld) 0.1 % Critically low 0.2-2.0 [facility] Comment on above: Performed By: #### C BC #### [facility] [address] [place] [address] Dr. Emilie Stakc EO # 0.0 103/ul Normal 0.0-0.7 [facility] Comment on above: Performed By: #### C BC #### [facility] [address] [place] [address] Dr. Emilie Stack Eosinophils/100 WBC (Bld) 0.0 % Critically low 0.9-7.0 [facility] Comment on above: Performed By: #### C BC #### [facility] [address] [place] [address] Dr. Emilie Stack Erythrocyte distribution width (RBC) [Ratio] 14.5 % Normal 11.0-15.0 [facility] Comment on above: Performed By: #### C BC #### [facility] [address] [place] [address] Dr. Emilie Stack Hematocrit (Bld) [Volume fraction] 43.6 % Normal 42.0-54.0 [facility] Comment on above: Performed By: #### C BC #### [facility] [address] [place] [address] Dr. Emilie Stack Hemoglobin (Bld) [Mass/Vol] 14.7 g/dL Normal 14.0-18.0 [facility] Comment on above: Performed By: #### C BC #### [facility] [address] [place] [address] Dr. Emilie Stack IG # 0.11 10e3/ul Critically high 0.00-0.03 [facility] Comment on above: Performed By: #### C BC #### [facility] [address] [place] [address] Dr. Emilie Stack IG % 0.8 % Critically high 0.0-0.[address] [facility] Comment on above: Performed By: #### C BC #### [facility] [address] [place] [address] Dr. Emilie Stack LYMPH # 0.5 103/ul Critically low 1.2-3.8 The [facility] Comment on above: Performed By: #### C BC #### [facility] [address] [place] [address] Dr. Emilie Stack Lymphocytes/100 WBC (Bld) 3.4 % Critically low 20.5-60.0 [facility] Comment on above: Performed By: #### C BC #### [facility] [address] [place] [address] Dr. Emilie Stack MANUAL DIFF REQ NO Normal [facility] Comment on above: Performed By: #### C BC #### [facility] [address] [place] [address] Dr. Emilie Stack MCH (RBC) [Entitic mass] 29.8 pg Normal 25.9-34.0 [facility] Comment on above: Performed By: #### C BC #### [facility] [address] [place] [address] Dr. Emilie Stack MCHC (RBC) [Mass/Vol] 33.7 g/dL Normal 29.9-35.2 [facility] Comment on above: Performed By: #### C BC #### [facility] [address] [place] [address] Dr. Emilie Stack MCV (RBC) [Entitic vol] 88.3 fL Normal 80.0-94.0 [facility] Comment on above: Performed By: #### C BC #### [facility] [address] [place] [address] Dr. Emilie Stack MONO # 0.6 103/ul Normal 0.3-0.8 [facility] Comment on above: Performed By: #### C BC #### [facility] [address] [place] [address] Dr. Emilie Stack Monocytes/100 WBC (Bld) 4.3 % Normal 1.7-12.0 [facility] Comment on above: Performed By: #### C BC #### [facility] [address] [address] [address] Emilie Stack NEUT # 12.5 103/ul Critically high 1.4-6.5 [facility] Comment on above: Performed By: #### C BC #### [facility] [address] [place] [address] Dr. Emilie Stack Neutrophils/100 WBC (Bld) 91.4 % Critically high 43.0-75.0 [facility] Comment on above: Performed By: #### C BC #### [facility] [address] [place] [address] Dr. Emilie Stack Platelet mean volume (Bld) [Entitic vol] 8.5 fL Critically low 9.5-13.5 [facility] Comment on above: Performed By: #### C BC #### [facility] [address] [place] [address] Dr. Emilie Stack PLT 323 103/ul Normal 150-450 [facility] Comment on above: Performed By: #### C BC #### [facility] [address] [place] [address] Dr. Emilie Stack RBC 4.94 106/ul Normal 4.70-6.10 [facility] Comment on above: Performed By: #### C BC #### [facility] [address] [place] [address] Dr. Emilie Stack WBC 13.6 103/ul Critically high 4.0-11.0 [facility] Comment on above: Performed By: #### C BC #### [facility] [address] [place] [address] Dr. Emilie Stack PROF 14(COMP METB)on 023 Albumin [Mass/Vol] 3.6 g/dL Normal 3.4-5.0 [facility] Comment on above: Performed By: #### T ROSSY, CMP, BNP #### [facility] [address] [address] [address] Emilie Stack Albumin/Globulin [Mass ratio] 1.1 {ratio} Normal [facility] Comment on above: Performed By: #### T ROSSY, CMP, BNP #### [facility] [address] [address] [address] Emilie Stack ALP [Catalytic activity/Vol] 98 U/L Normal 46-116 [facility] Comment on above: Performed By: #### T ROSSY CMP, BNP #### [facility] [address] [place] [address] Dr. Emilie Stack ALT [Catalytic activity/Vol] 27 U/L Normal 16-63 [facility] Comment on above: Performed By: #### T ROSSY, CMP, BNP #### [facility] [address] [place] [address] Dr. Emilie Stack Anion gap [Moles/Vol] 15.8 mmol/L Normal [facility] Comment on above: Performed By: #### T ROSSY, CMP, BNP #### [facility] [address] [place] [address] Dr. Emilie Stack AST [Catalytic activity/Vol] 27 U/L Normal 15-37 [facility] Comment on above: Performed By: #### T ROSSY, CMP, BNP #### [facility] [address] [place] [address] Dr. Emilie Stack Bilirubin [Mass/Vol] 0.3 mg/dL Normal 0.2-1.0 [facility] Comment on above: Performed By: #### T ROSSY, CMP, BNP #### [facility] [address] [place] [address] Dr. Emilie Stack Calcium [Mass/Vol] 8.7 mg/dL Normal 8.5-10.1 [facility] Comment on above: Performed By: #### T ROSSY, CMP, BNP #### [facility] [address] [address] [address] Emilie Stack Chloride [Moles/Vol] 102 mmol/L Normal 98-107 [facility] Comment on above: Performed By: #### Patience BLAIR CMP, BNP #### [facility] [address] [address] [address] Emilie Stack CO2 [Moles/Vol] 23.0 mmol/L Normal 21.0-32.0 [facility] Comment on above: Performed By: #### T ROSSY, CMP, BNP #### [facility] [address] [address] [address] Emilie Stack Creatinine [Mass/Vol] 1.27 mg/dL Normal 0.70-1.30 [facility] Comment on above: Performed By: #### Patience BLAIR CMP, BNP #### [facility] [address] [place] [address] Dr. Emilie Stack EGFR-AF JAPANESE >60 Normal >=60 [facility] Comment on above: Performed By: #### Patience BLAIR CMP, BNP #### [facility] [address] [address] [address] Emilie Stack EGFR-NON AF JAP[place]ESE 56 mL/min/1.73m2 Critically low >=60 [facility] Comment on above: Performed By: #### Patience BLAIR CMP, BNP #### [facility] [address] [address] [address] Emilie Stack Globulin (S) [Mass/Vol] 3.3 g/dL Normal [facility] Comment on above: Performed By: #### T ROSSY CMP, BNP #### [facility] [address] [address] [address] Emilie Stack Glucose [Mass/Vol] 146 mg/dL Critically high 74-106 [facility] Comment on above: Performed By: #### T ROSSY CMP, BNP #### [facility] [address] [place] [address] Dr. Emilie Stack Potassium [Moles/Vol] 3.8 mmol/L Normal 3.5-5.1 [facility] Comment on above: Performed By: #### T ROSSY CMP, BNP #### [facility] [address] [address] [address] Emilie Stack Protein [Mass/Vol] 6.9 g/dL Normal 6.4-8.2 [facility] Comment on above: Performed By: #### T ROSSY CMP, BNP #### [facility] [address] [place] [address] Dr. Emilie Stack Sodium [Moles/Vol] 137 mmol/L Normal 136-145 [facility] Comment on above: Performed By: #### T ROSSY CMP, BNP #### [facility] [address] [place] [address] Dr. Emilie Stack Urea nitrogen [Mass/Vol] 22.0 mg/dL Critically high 7.0-18.0 [facility] Comment on above: Performed By: #### T ROSSY CMP, BNP #### [facility] [address] [place] [address] Dr. Emilie Stack Urea nitrogen/Creatinine [Mass ratio] 17.3 mg/mg Normal [facility] Comment on above: Performed By: #### T ROSSY CMP, BNP #### [facility] [address] [place] [address] Dr. Emilie Stack THEOPHYLLINEon 08-14-2022 THEOPHYLLINE 10.3 ug/mL Normal 10.0-20.0 [facility] Comment on above: Performed By: #### T ROSSY CMP, BNP #### [facility] [address] [place] [address] Dr. Emilie Stack BNPon 08-13-2022 Natriuretic peptide B (Bld) [Mass/Vol] 82.0 pg/mL Normal <=900.0 [facility] Comment on above: Performed By: #### C MP BNP, YESI #### [facility] [address] [place] [address] Dr. Emilie Stack CBC AUTO DIFFon 08-13-2022 BASO # 0.0 103/ul Normal 0.0-0.1 [facility] Comment on above: Performed By: #### C MP, BNP, YESI #### [facility] [address] [place] [address] Dr. Emilie Stack Basophils/100 WBC (Bld) 0.1 % Critically low 0.2-2.0 [facility] Comment on above: Performed By: #### C MP, BNP, YESI #### [facility] [address] [place] [address] Dr. Emilie Stack EO # 0.0 103/ul Normal 0.0-0.7 [facility] Comment on above: Performed By: #### C MP, BNP, YESI #### [facility] [address] [place] [address] Dr. Emilie Stack Eosinophils/100 WBC (Bld) 0.0 % Critically low 0.9-7.0 [facility] Comment on above: Performed By: #### C MP, BNP, YESI #### [facility] [address] [place] [address] Dr. Emilie Stack Erythrocyte distribution width (RBC) [Ratio] 14.7 % Normal 11.0-15.0 [facility] Comment on above: Performed By: #### C MP, BNP, YESI #### [facility] [address] [place] [address] Dr. Emilie Stack Hematocrit (Bld) [Volume fraction] 40.7 % Critically low 42.0-54.0 [facility] Comment on above: Performed By: #### C MP, BNP, YESI #### [facility] [address] [place] [address] Dr. Emilie Stack Hemoglobin (Bld) [Mass/Vol] 13.3 g/dL Critically low 14.0-18.0 [facility] Comment on above: Performed By: #### C MP, BNP, YESI #### [facility] [address] [place] [address] Dr. Emilie Stack IG # 0.14 10e3/ul Critically high 0.00-0.03 [facility] Comment on above: Performed By: #### C MP, BNP, YESI #### [facility] [address] [place] [address] Dr. Emilie Stack IG % 0.8 % Critically high 0.0-0.[address] [facility] Comment on above: Performed By: #### C MP, BNP, YESI #### [facility] [address] [place] [address] Dr. Emilie Stack LYMPH # 0.8 103/ul Critically low 1.2-3.8 The [facility] Comment on above: Performed By: #### C MP, BNP, YESI #### [facility] [address] [place] [address] Dr. Emilie Stack Lymphocytes/100 WBC (Bld) 4.5 % Critically low 20.5-60.0 [facility] Comment on above: Performed By: #### C MP, BNP, YESI #### [facility] [address] [place] [address] Dr. Emilie Stack MANUAL DIFF REQ NO Normal [facility] Comment on above: Performed By: #### C MP, BNP, YESI #### [facility] [address] [place] [address] Dr. Emilie Stack MCH (RBC) [Entitic mass] 29.7 pg Normal 25.9-34.0 [facility] Comment on above: Performed By: #### C MP, BNP, YESI #### [facility] [address] [place] [address] Dr. Emilie Stack MCHC (RBC) [Mass/Vol] 32.7 g/dL Normal 29.9-35.2 [facility] Comment on above: Performed By: #### C MP, BNP, YESI #### [facility] [address] [place] [address] Dr. Emilie Stack MCV (RBC) [Entitic vol] 90.8 fL Normal 80.0-94.0 [facility] Comment on above: Performed By: #### C MP, BNP, YESI #### [facility] [address] [place] [address] Dr. Emilie Stack MONO # 0.6 103/ul Normal 0.3-0.8 [facility] Comment on above: Performed By: #### C MP, BNP, YESI #### [facility] [address] [address] [address] Emilie Stack Monocytes/100 WBC (Bld) 3.3 % Normal 1.7-12.0 [facility] Comment on above: Performed By: #### C MP, BNP, YESI #### [facility] [address] [place] [address] Dr. Emilie Stack NEUT # 15.9 103/ul Critically high 1.4-6.5 [facility] Comment on above: Performed By: #### C MP, BNP, YESI #### [facility] [address] [place] [address] Dr. Emilie Stack Neutrophils/100 WBC (Bld) 91.3 % Critically high 43.0-75.0 [facility] Comment on above: Performed By: #### C MP, BNP, YESI #### [facility] [address] [place] [address] Dr. Emilie Stack Platelet mean volume (Bld) [Entitic vol] 8.9 fL Critically low 9.5-13.5 [facility] Comment on above: Performed By: #### C MP, BNP, YESI #### [facility] [address] [place] [address] Dr. Emilie Stack PLT 303 103/ul Normal 150-450 [facility] Comment on above: Performed By: #### C MP, BNP, YESI #### [facility] [address] [place] [address] Dr. Emilie Stack RBC 4.48 106/ul Critically low 4.70-6.[address] [facility] Comment on above: Performed By: #### C MP, BNP, YESI #### [facility] [address] [place] [address] Dr. Emilie Stack WBC 17.4 103/ul Critically high 4.0-11.0 The [facility] Comment on above: Performed By: #### C MP, BNP, YESI #### [facility] [address] [place] [address] Dr. Emilie Stack PROF 14(COMP METB)on 023 Albumin [Mass/Vol] 3.2 g/dL Critically low 3.4-5.0 [facility] Comment on above: Performed By: #### C MP, BNP, YESI #### [facility] [address] [address] [address] Emilie Stack Albumin/Globulin [Mass ratio] 1.0 {ratio} Normal [facility] Comment on above: Performed By: #### C MP, BNP, YESI #### [facility] [address] [address] [address] Emilie Stack ALP [Catalytic activity/Vol] 100 U/L Normal 46-116 [facility] Comment on above: Performed By: #### C MP, BNP, YESI #### [facility] [address] [place] [address] Dr. Emilie Stack ALT [Catalytic activity/Vol] 22 U/L Normal 16-63 [facility] Comment on above: Performed By: #### C MP, BNP, YESI #### [facility] [address] [address] [address] Emilie Stack Anion gap [Moles/Vol] 13.4 mmol/L Normal [facility] Comment on above: Performed By: #### C MP, BNP, YESI #### [facility] [address] [place] [address] Dr. Emilie Stack AST [Catalytic activity/Vol] 13 U/L Critically low 15-37 [facility] Comment on above: Performed By: #### C MP, BNP, YESI #### [facility] [address] [address] [address] Emilie Stack Bilirubin [Mass/Vol] 0.3 mg/dL Normal 0.2-1.0 [facility] Comment on above: Performed By: #### C MP, BNP, YESI #### [facility] [address] [address] [address] Emilie Stack Calcium [Mass/Vol] 8.6 mg/dL Normal 8.5-10.1 [facility] Comment on above: Performed By: #### C MP, BNP, YESI #### [facility] [address] [address] [address] Emilie Stack Chloride [Moles/Vol] 102 mmol/L Normal 98-107 [facility] Comment on above: Performed By: #### C MP, BNP, YESI #### [facility] [address] [address] [address] Emilie Stack CO2 [Moles/Vol] 26.7 mmol/L Normal 21.0-32.0 [facility] Comment on above: Performed By: #### C MP, BNP, YESI #### [facility] [address] [place] [address] Dr. Emilie Stack Creatinine [Mass/Vol] 1.23 mg/dL Normal 0.70-1.30 [facility] Comment on above: Performed By: #### C MP, BNP, YESI #### [facility] [address] [place] [address] Dr. Emilie Stack EGFR-AF JAPANESE >60 Normal >=60 [facility] Comment on above: Performed By: #### C MP, BNP, YESI #### [facility] [address] [place] [address] Dr. Emilie Stack EGFR-NON AF JAPANESE 58 mL/min/1.73m2 Critically low >=60 [facility] Comment on above: Performed By: #### C MP, BNP, YESI #### [facility] [address] [place] [address] Dr. Emilie Stack Globulin (S) [Mass/Vol] 3.1 g/dL Normal [facility] Comment on above: Performed By: #### C MP, BNP, YESI #### [facility] [address] [place] [address] Dr. Emilie Stack Glucose [Mass/Vol] 138 mg/dL Critically high 74-106 [facility] Comment on above: Performed By: #### C MP, BNP, YESI #### [facility] [address] [place] [address] Dr. Emilie Stack Potassium [Moles/Vol] 4.1 mmol/L Normal 3.5-5.1 [facility] Comment on above: Performed By: #### C MP BNP, YESI #### [facility] [address] [place] [address] Dr. Emilie Stack Protein [Mass/Vol] 6.3 g/dL Critically low 6.4-8.2 Th e [facility] Comment on above: Performed By: #### C MP BNP, YESI #### [facility] [address] [place] [address] Dr. Emilie Stack Sodium [Moles/Vol] 138 mmol/L Normal 136-145 [facility] Comment on above: Performed By: #### C MP BNP, YESI #### [facility] [address] [place] [address] Dr. Emilie Stack Urea nitrogen [Mass/Vol] 21.0 mg/dL Critically high 7.0-18.0 [facility] Comment on above: Performed By: #### C MP BNP, YESI #### [facility] [address] [place] [address] Dr. Emilie Stack Urea nitrogen/Creatinine [Mass ratio] 17.1 mg/mg Normal [facility] Comment on above: Performed By: #### C MP BNP, YESI #### [facility] [address] [place] [address] Dr. Emilie Stack THEOPHYLLINEon 08-13-2022 THEOPHYLLINE 11.5 ug/mL Normal 10.0-20.0 [facility] Comment on above: Performed By: #### C MP, BNP, YESI #### [facility] [address] [place] [address] Dr. Emilie Stack BNPon 08-12-2022 Natriuretic peptide B (Bld) [Mass/Vol] 49.0 pg/mL Normal <=900.0 [facility] Comment on above: Performed By: #### C MP, BNP, YESI #### [facility] [address] [place] [address] Dr. Emilie Stack CBC W MANUAL DIFFon 08-12-19 23 ATYPICAL LYMPH # 0.08 103/ul Normal [facility] Comment on above: Performed By: #### T ROSSY, CMP, BNP #### [facility] [address] [address] [address] Emilie Stack ATYPICAL LYMPH % 1 % Normal [facility] Comment on above: Performed By: #### T ROSSY, CMP, BNP #### [facility] [address] [address] [address] Emilie Stack BAND # 0.0 103/ul Normal 0.0-0.3 [facility] Comment on above: Performed By: #### T ROSSY, CMP, BNP #### [facility] [address] [address] [address] Emilie Stack BAND % 0 % Normal 0-5 [facility] Comment on above: Performed By: #### T ROSSY, CMP, BNP #### [facility] [address] [address] [address] Emilie Stack BASOM # 0.00 103/ul Normal 0.00-0.10 [facility] Comment on above: Performed By: #### T ROSSY, CMP, BNP #### [facility] [address] [address] [address] Emilie Stack BASOM % 0.0 % Critically low 0.2-2.0 [facility] Comment on above: Performed By: #### T ROSSY, CMP, BNP #### [facility] [address] [address] [address] Emilie Stack BLAST # Normal [facility] Comment on above: Performed By: #### T ROSSY, CMP, BNP #### [facility] [address] [address] [address] Emilie Stack BLAST % Normal [facility] Comment on above: Performed By: #### T ROSSY, CMP, BNP #### [facility] [address] [address] [address] Emilie Stack CORRECTED WBC Normal 4.0-11.0 [facility] Comment on above: Performed By: #### T ROSSY, CMP, BNP #### [facility] [address] [address] [address] Emilie Stack EOS # 0.00 103/ul Normal 0.00-0.70 [facility] Comment on above: Performed By: #### T ROSSY, CMP, BNP #### [facility] [address] [address] [address] Emilie Stack EOS% 0.0 % Critically low 0.9-7.0 [facility] Comment on above: Performed By: #### T ROSSY, CMP, BNP #### [facility] [address] [address] [address] Emilie Stack HCT 41.1 % Critically low 42.0-54.0 [facility] Comment on above: Performed By: #### T ROSSY, CMP, BNP #### [facility] [address] [address] [address] Emilie Stack HGB 13.5 g/dl Critically low 14.0-18.0 [facility] Comment on above: Performed By: #### T ROSSY, CMP, BNP #### [facility] [address] [address] [address] mEilie Stack LYMPHM # 0.08 103/ul Critically low 1.20-3.[address] [facility] Comment on above: Performed By: #### T ROSSY, CMP, BNP #### [facility] [address] [address] [address] Emilie Stack LYMPHM% 1.0 % Critically low 20.5-60.0 [facility] Comment on above: Performed By: #### T ROSSY, CMP, BNP #### [facility] [address] [address] [address] Emilie Stack MCH 30.2 pg Normal 25.9-34.0 [facility] Comment on above: Performed By: #### T ROSSY, CMP, BNP #### [facility] [address] [address] [address] Emilie Stack MCHC 32.8 g/dl Normal 29.9-35.2 [facility] Comment on above: Performed By: #### T ROSSY, CMP, BNP #### [facility] [address] [address] [address] Emilie Stack MCV 91.9 fL Normal 80.0-94.0 [facility] Comment on above: Performed By: #### T ROSSY, CMP, BNP #### [facility] [address] [address] [address] Emilie Stack METAMYELOCYTE # Normal [facility] Comment on above: Performed By: #### T ROSSY, CMP, BNP #### [facility] [address] [address] [address] Emilie Stack METAMYELOCYTE % Normal [facility] Comment on above: Performed By: #### T ROSSY, CMP, BNP #### [facility] [address] [place] [address] Dr. Emilie Stack MONOM# 0.00 103/ul Critically low 0.30-0.[address] [facility] Comment on above: Performed By: #### T ROSSY, CMP, BNP #### [facility] [address] [place] [address] Dr. Emilie Stack MONOM% 0.0 % Critically low 1.7-12.0 [facility] Comment on above: Performed By: #### T ROSSY, CMP, BNP #### [facility] [address] [place] [address] Dr. Emilie Stack MPV 8.9 fL Critically low 9.5-13.5 [facility] Comment on above: Performed By: #### T ROSSY, CMP, BNP #### [facility] [address] [place] [address] Dr. Emilie Stack MYELOCYTE # Normal [facility] Comment on above: Performed By: #### T ROSSY, CMP, BNP #### [facility] [address] [place] [address] Dr. Emilie Stack MYELOCYTE % Normal [facility] Comment on above: Performed By: #### T ROSSY, CMP, BNP #### [facility] [address] [place] [address] Dr. Emilie Stack NRBC Normal [facility] Comment on above: Performed By: #### T ROSSY, CMP, BNP #### [facility] [address] [address] [address] Emilie Stack PLT 263 103/ul Normal 150-450 [facility] Comment on above: Performed By: #### T ROSSY, CMP, BNP #### [facility] [address] [address] [address] Emilie Stack RBC 4.47 106/ul Critically low 4.70-6.[address] [facility] Comment on above: Performed By: #### T ROSSY, CMP, BNP #### [facility] [address] [address] [address] Emilie Stack RDW 14.4 % Normal 11.0-15.0 [facility] Comment on above: Performed By: #### T ROSSY, CMP, BNP #### [facility] [address] [address] [address] Emilie Stack SEG # 7.64 103/ul Critically high 1.40-6.50 [facility] Comment on above: Performed By: #### T ROSSY, CMP, BNP #### [facility] [address] [address] [address] Emilie Stack SEG % 98.0 % Critically high 43.0-75.[address] [facility] Comment on above: Performed By: #### T ROSSY, CMP, BNP #### [facility] [address] [address] [address] Emilie Stack WBC 7.8 103/ul Normal 4.0-11.0 [facility] Comment on above: Performed By: #### T ROSSY, CMP, BNP #### [facility] [address] [address] [address] Emilie Stack CULTURE SPUTUMon 08-12-2022 CULTURE SPUTUM Culture Observations : NORMAL RESPIRATORY TANO. Normal [facility] Comment on above: Performed By: #### T ROSSY, CMP, BNP #### [facility] [address] [address] [address] Emilie Stack PROF 14(COMP METB)on 023 Albumin [Mass/Vol] 3.1 g/dL Critically low 3.4-5.0 [facility] Comment on above: Performed By: #### C MP, BNP, YESI #### [facility] [address] [address] [address] Emilie Stack Albumin/Globulin [Mass ratio] 1.0 {ratio} Normal [facility] Comment on above: Performed By: #### C MP, BNP, YESI #### [facility] [address] [address] [address] Emilie Stack ALP [Catalytic activity/Vol] 106 U/L Normal 46-116 [facility] Comment on above: Performed By: #### C MP, BNP, YESI #### [facility] [address] [place] [address] Dr. Emilie Stack ALT [Catalytic activity/Vol] 23 U/L Normal 16-63 [facility] Comment on above: Performed By: #### C MP, BNP, YESI #### [facility] [address] [address] [address] Emilie Stack Anion gap [Moles/Vol] 11.5 mmol/L Normal [facility] Comment on above: Performed By: #### C MP, BNP, YESI #### [facility] [address] [place] [address] Dr. Emilie Stack AST [Catalytic activity/Vol] 11 U/L Critically low 15-37 [facility] Comment on above: Performed By: #### C MP, BNP, YESI #### [facility] [address] [place] [address] Dr. Emilie Stack Bilirubin [Mass/Vol] 0.2 mg/dL Normal 0.2-1.0 [facility] Comment on above: Performed By: #### C MP, BNP, YESI #### [facility] [address] [place] [address] Dr. Emilie Stack Calcium [Mass/Vol] 8.6 mg/dL Normal 8.5-10.1 [facility] Comment on above: Performed By: #### C MP, BNP, YESI #### [facility] [address] [address] [address] Emilie Stack Chloride [Moles/Vol] 102 mmol/L Normal 98-107 [facility] Comment on above: Performed By: #### C MP, BNP, YESI #### [facility] [address] [address] [address] Emilie Stack CO2 [Moles/Vol] 27.3 mmol/L Normal 21.0-32.0 [facility] Comment on above: Performed By: #### C MP, BNP, YESI #### [facility] [address] [place] [address] Dr. Emilie Stack Creatinine [Mass/Vol] 1.04 mg/dL Normal 0.70-1.30 [facility] Comment on above: Performed By: #### C MP, BNP, YESI #### [facility] [address] [place] [address] Dr. Emilie Stack EGFR-AF JAPANESE >60 Normal >=60 [facility] Comment on above: Performed By: #### C MP, BNP, YESI #### [facility] [address] [place] [address] Dr. Emilie Stack EGFR-NON AF JAPANESE >60 Normal >=60 [facility] Comment on above: Performed By: #### C MP, BNP, YESI #### [facility] [address] [place] [address] Dr. Emilie Stack Globulin (S) [Mass/Vol] 3.0 g/dL Normal [facility] Comment on above: Performed By: #### C MP, BNP, YESI #### [facility] [address] [place] [address] Dr. Emilie Stack Glucose [Mass/Vol] 207 mg/dL Critically high 74-106 T [facility] Comment on above: Performed By: #### C MP, BNP, YESI #### [facility] [address] [place] [address] Dr. Emilie Stack Potassium [Moles/Vol] 3.8 mmol/L Normal 3.5-5.1 [facility] Comment on above: Performed By: #### C MP, BNP, YESI #### [facility] [address] [address] [address] Emilie Stack Protein [Mass/Vol] 6.1 g/dL Critically low 6.4-8.2 Th e [facility] Comment on above: Performed By: #### C MP, BNP, YESI #### [facility] [address] [address] [address] Emilie Stack Sodium [Moles/Vol] 137 mmol/L Normal 136-145 [facility] Comment on above: Performed By: #### C MP, BNP, YESI #### [facility] [address] [place] [address] Dr. Emilie Stack Urea nitrogen [Mass/Vol] 12.0 mg/dL Normal 7.0-18.0 [facility] Comment on above: Performed By: #### C MP, BNP, YESI #### [facility] [address] [address] [address] Emilie Stack Urea nitrogen/Creatinine [Mass ratio] 11.5 mg/mg Normal [facility] Comment on above: Performed By: #### C MP, BNP, YESI #### [facility] [address] [place] [address] Dr. Emilie Stack SPUTUM GRAM STAINon 08-12-19 COMMENTS Normal [facility] Comment on above: Performed By: #### C MP, BNP, YESI #### [facility] [address] [address] [address] Emilie Stack DIPHTHEROIDS Normal [facility] Comment on above: Performed By: #### C MP, BNP, YESI #### [facility] [address] [address] [address] Emilie Stack EPITHELIALS <25 Normal [facility] Comment on above: Performed By: #### C MP, BNP, YESI #### [facility] [address] [place] [address] Dr. Emilie Stack FUNGAL ELEMENTS Normal [facility] Comment on above: Performed By: #### C MP, BNP, YESI #### [facility] [address] [address] [address] Emilie Stack GRAM NEG BACILLI Normal [facility] Comment on above: Performed By: #### C MP, BNP, YESI #### [facility] [address] [place] [address] Dr. Emilie Stack GRAM NEG DIPPLOCOCCI Normal [facility] Comment on above: Performed By: #### C MP, BNP, YESI #### [facility] [address] [address] [address] Emilie JARAMILLO POS BACILLI RARE Normal [facility] Comment on above: Performed By: #### C MP, BNP, YESI #### [facility] [address] [place] [address] Dr. Emilie JARAMILLO POSITIVE COCCI MODERATE Normal [facility] Comment on above: Performed By: #### C MP, BNP, YESI #### [facility] [address] [place] [address] Dr. Emilie Stack WBC (Bld) [#/Vol] 10*3/uL Normal [facility] Comment on above: Performed By: #### C MP, BNP, YESI #### [facility] [address] [place] [address] Dr. Emilie Stack T3, TOTAL (TRIIODOTHYRONINE) on 08-12-2022 T3, TOTAL 92 ng/dL Normal 71-180 [facility] Comment on above: Performed By: #### T ROSSY, CMP, BNP #### [facility] [address] [place] [address] Dr. Emilie Stack THEOPHYLLINEon 08-12-2022 THEOPHYLLINE 10.3 ug/mL Normal 10.0-20.0 [facility] Comment on above: Performed By: #### C MP, BNP, YESI #### [facility] [address] [place] [address] Dr. Emilie Stack BNPon 08-11-2022 Natriuretic peptide B (Bld) [Mass/Vol] 79.0 pg/mL Normal <=900.0 [facility] Comment on above: Performed By: #### C MP, BNP, YESI #### [facility] [address] [place] [address] Dr. Emilie Stack CARDIAC GATITO 3-6on 3 CK [Catalytic activity/Vol] 66 U/L Normal 39-308 [facility] Comment on above: Performed By: #### T ROSSY, CMP, BNP #### [facility] [address] [place] [address] Dr. Emilie Stack CK.MB [Mass/Vol] 1.24 ng/mL Normal <=3.60 [facility] Comment on above: Performed By: #### T ROSSY, CMP, BNP #### [facility] [address] [place] [address] Dr. Emilie Stack HSTROP 5.7 pg/mL Normal 4.0-76.1 [facility] Comment on above: Result Comment: CUT- OFF POINTS HAVE BEEN ESTABLISHED BASED ON THE FOURTH UNIVERSAL DEFINITIONS OF MYOCARDIAL INFARCTION. THE UPPER REFERENCE LIMIT (URL) OF TROPONIN, DEFINED THE 99TH PERCENTILE OF cTnI DISTRIBUTION IN A REFERENCE POPULATION, HAS BEEN CONFIRMED THE DECISION THRESHOLD FOR SD DIAGNOSIS. Performed By: #### T ROSSY, CMP, BNP #### [facility] [address] [place] [address] Dr. Emilie Stack CBC AUTO DIFFon 08-11-2022 BASO # 0.0 103/ul Normal 0.0-0.1 [facility] Comment on above: Performed By: #### C MP, BNP, YESI #### [facility] [address] [place] [address] Dr. Emilie Stack Basophils/100 WBC (Bld) 0.6 % Normal 0.2-2.0 [facility] Comment on above: Performed By: #### C MP, BNP, YESI #### [facility] [address] [place] [address] Dr. Emilie Stack EO # 0.1 103/ul Normal 0.0-0.7 [facility] Comment on above: Performed By: #### C MP, BNP, YESI #### [facility] [address] [place] [address] Dr. Emilie Stack Eosinophils/100 WBC (Bld) 1.4 % Normal 0.9-7.0 [facility] Comment on above: Performed By: #### C MP, BNP, YESI #### [facility] [address] [place] [address] Dr. Emilie Stack Erythrocyte distribution width (RBC) [Ratio] 14.8 % Normal 11.0-15.0 [facility] Comment on above: Performed By: #### C MP, BNP, YESI #### [facility] [address] [place] [address] Dr. Emilie Stack Hematocrit (Bld) [Volume fraction] 43.5 % Normal 42.0-54.0 [facility] Comment on above: Performed By: #### C MP, BNP, YESI #### [facility] [address] [place] [address] Dr. Emilie Stack Hemoglobin (Bld) [Mass/Vol] 14.2 g/dL Normal 14.0-18.0 [facility] Comment on above: Performed By: #### C MP, BNP, YESI #### [facility] [address] [place] [address] Dr. Emilie Stack IG # 0.06 10e3/ul Critically high 0.00-0.03 [facility] Comment on above: Performed By: #### C MP, BNP, YESI #### [facility] [address] [place] [address] Dr. Emilie Stack IG % 0.8 % Critically high 0.0-0.[address] [facility] Comment on above: Performed By: #### C MP, BNP, YESI #### [facility] [address] [place] [address] Dr. Emilie Stack LYMPH # 1.2 103/ul Normal 1.2-3.8 [facility] Comment on above: Performed By: #### C MP, BNP, YESI #### [facility] [address] [place] [address] Dr. Emilie Stack Lymphocytes/100 WBC (Bld) 16.8 % Critically low 20.5-60.0 [facility] Comment on above: Performed By: #### C MP, BNP, YESI #### [facility] [address] [place] [address] Dr. Emilie Stack MANUAL DIFF REQ NO Normal [facility] Comment on above: Performed By: #### C MP, BNP, YESI #### [facility] [address] [place] [address] Dr. Emilie Stack MCH (RBC) [Entitic mass] 30.1 pg Normal 25.9-34.0 [facility] Comment on above: Performed By: #### C MP, BNP, YESI #### [facility] [address] [place] [address] Dr. Emilie Stack MCHC (RBC) [Mass/Vol] 32.6 g/dL Normal 29.9-35.2 [facility] Comment on above: Performed By: #### C MP, BNP, YESI #### [facility] [address] [place] [address] Dr. Emilie Stack MCV (RBC) [Entitic vol] 92.2 fL Normal 80.0-94.0 [facility] Comment on above: Performed By: #### C MP, BNP, YESI #### [facility] [address] [place] [address] Dr. Emilie Stack MONO # 1.0 103/ul Critically high 0.3-0.[address] [facility] Comment on above: Performed By: #### C MP, BNP, YESI #### [facility] [address] [place] [address] Dr. Emilie Stack Monocytes/100 WBC (Bld) 14.2 % Critically high 1.7-12.0 [facility] Comment on above: Performed By: #### C MP, BNP, YESI #### [facility] [address] [place] [address] Dr. Emilie Stack NEUT # 4.8 103/ul Normal 1.4-6.5 [facility] Comment on above: Performed By: #### C MP, BNP, YESI #### [facility] [address] [place] [address] Dr. Emilie Stack Neutrophils/100 WBC (Bld) 66.2 % Normal 43.0-75.0 [facility] Comment on above: Performed By: #### C MP, BNP, YESI #### [facility] [address] [place] [address] Dr. Emilie Stack Platelet mean volume (Bld) [Entitic vol] 8.4 fL Critically low 9.5-13.5 [facility] Comment on above: Performed By: #### C MP, BNP, YESI #### [facility] [address] [place] [address] Dr. Emilie Stack PLT 277 103/ul Normal 150-450 [facility] Comment on above: Performed By: #### C MP, BNP, YESI #### [facility] [address] [place] [address] Dr. Emilie Stack RBC 4.72 106/ul Normal 4.70-6.10 [facility] Comment on above: Performed By: #### C MP, BNP, YESI #### [facility] [address] [place] [address] Dr. Emilie Stack WBC 7.3 103/ul Normal 4.0-11.0 [facility] Comment on above: Performed By: #### C MP, BNP, YESI #### [facility] [address] [place] [address] Dr. Emilie Stack CULTURE URINEon 08-11-2022 CULTURE URINE Culture Observations : NO GROWTH. Normal [facility] Comment on above: Performed By: #### T ROSSY, CMP, BNP #### [facility] [address] [place] [address] Dr. Emilie Stack PROF 14(COMP METB)on 023 Albumin [Mass/Vol] 3.2 g/dL Critically low 3.4-5.0 e [facility] Comment on above: Performed By: #### C MP, BNP, YESI #### [facility] [address] [place] [address] Dr. Emilie Stack Albumin/Globulin [Mass ratio] 1.0 {ratio} Normal [facility] Comment on above: Performed By: #### C MP, BNP, YESI #### [facility] [address] [address] [address] Emilie Stack ALP [Catalytic activity/Vol] 117 U/L Critically high 46-116 [facility] Comment on above: Performed By: #### C MP, BNP, YESI #### [facility] [address] [address] [address] Emilie Stack ALT [Catalytic activity/Vol] 24 U/L Normal 16-63 [facility] Comment on above: Performed By: #### C MP, BNP, YESI #### [facility] [address] [address] [address] Emilie Stack Anion gap [Moles/Vol] 8.8 mmol/L Normal [facility] Comment on above: Performed By: #### C MP, BNP, YESI #### [facility] [address] [place] [address] Dr. Emilie Stack AST [Catalytic activity/Vol] 13 U/L Critically low 15-37 [facility] Comment on above: Performed By: #### C MP, BNP, YESI #### [facility] [address] [place] [address] Dr. Emilie Stack Bilirubin [Mass/Vol] 0.3 mg/dL Normal 0.2-1.0 [facility] Comment on above: Performed By: #### C MP, BNP, YESI #### [facility] [address] [place] [address] Dr. Emilie Stack Calcium [Mass/Vol] 8.3 mg/dL Critically low 8.5-10.1 [facility] Comment on above: Performed By: #### C MP, BNP, YESI #### [facility] [address] [place] [address] Dr. Emilie Stack Chloride [Moles/Vol] 104 mmol/L Normal 98-107 [facility] Comment on above: Performed By: #### C MP, BNP, YESI #### [facility] [address] [place] [address] Dr. Emilie Stack CO2 [Moles/Vol] 30.7 mmol/L Normal 21.0-32.0 [facility] Comment on above: Performed By: #### C MP, BNP, YESI #### [facility] [address] [address] [address] Emilie Stack Creatinine [Mass/Vol] 1.08 mg/dL Normal 0.70-1.30 [facility] Comment on above: Performed By: #### C MP, BNP, YESI #### [facility] [address] [address] [address] Emilie Stack EGFR-AF JAPANESE >60 Normal >=60 [facility] Comment on above: Performed By: #### C MP, BNP, YESI #### [facility] [address] [address] [address] Emilie Stack EGFR-NON AF JAPANESE >60 Normal >=60 [facility] Comment on above: Performed By: #### C MP, BNP, YESI #### [facility] [address] [address] [address] Emilie Stack Globulin (S) [Mass/Vol] 3.1 g/dL Normal [facility] Comment on above: Performed By: #### C MP, BNP, YESI #### [facility] [address] [place] [address] Dr. Emilie Stack Glucose [Mass/Vol] 76 mg/dL Normal 74-106 [facility] Comment on above: Performed By: #### C MP, BNP, YESI #### [facility] [address] [address] [address] Emilie Stack Potassium [Moles/Vol] 3.5 mmol/L Normal 3.5-5.1 [facility] Comment on above: Performed By: #### C MP, BNP, YESI #### [facility] [address] [address] [address] Emilie Stack Protein [Mass/Vol] 6.3 g/dL Critically low 6.4-8.2 [facility] Comment on above: Performed By: #### C MP, BNP, YESI #### [facility] [address] [address] [address] Emilie Stack Sodium [Moles/Vol] 140 mmol/L Normal 136-145 [facility] Comment on above: Performed By: #### C MP, BNP, YESI #### [facility] [address] [address] [address] Emilie Stack Urea nitrogen [Mass/Vol] 10.0 mg/dL Normal 7.0-18.0 [facility] Comment on above: Performed By: #### C MP, BNP, YESI #### [facility] [address] [address] [address] Emilie Stack Urea nitrogen/Creatinine [Mass ratio] 9.3 mg/mg Normal [facility] Comment on above: Performed By: #### C MP, BNP, YESI #### [facility] [address] [place] [address] Dr. Emilie Stack THEOPHYLLINEon 08-11-2022 THEOPHYLLINE 7.7 ug/mL Critically low 10.0-20.0 [facility] Comment on above: Performed By: #### C MP, BNP, YESI #### [facility] [address] [address] [address] Emilie Stack UA RANDOM W/MICROSCOPICon BACTERIA NONE SEEN Normal NONE SEEN [facility] Comment on above: Performed By: #### T ROSSY CMP, BNP #### [facility] [address] [place] [address] Dr. Emilie Stack Bilirubin Ql (U) Negative Normal NEGATIVE [facility] Comment on above: Performed By: #### T ROSSY, CMP, BNP #### [facility] [address] [place] [address] Dr. Emilie Stack CAST NONE SEEN Normal NONE SEEN [facility] Comment on above: Performed By: #### T ROSSY, CMP, BNP #### [facility] [address] [place] [address] Dr. Emilie Stack Clarity (U) CLEAR Normal CLEAR [facility] Comment on above: Performed By: #### T ROSSY, CMP, BNP #### [facility] [address] [address] [address] Emilie Stack Color (U) LT. YELLOW Normal YELLOW [facility] Comment on above: Performed By: #### T ROSSY, CMP, BNP #### [facility] [address] [address] [address] Emilie Stack Crystals LM Nom (Urine sed) NONE SEEN Normal NONE SEEN [facility] Comment on above: Performed By: #### T ROSSY, CMP, BNP #### [facility] [address] [address] [address] Emilie Stack Epithelial cells LM Ql (Urine sed) NONE SEEN Normal NONE SEEN /RARE [facility] Comment on above: Performed By: #### T ROSSY CMP, BNP #### [facility] [address] [place] [address] Dr. Emilie Stack Glucose Ql (U) Negative Normal NEGATIVE The [facility] Comment on above: Performed By: #### T ROSSY CMP, BNP #### [facility] [address] [place] [address] Dr. Emilie Stack Hemoglobin Ql (U) TRACE-INTACT Abnormal NEGATIVE [facility] Comment on above: Performed By: #### T ROSSY CMP, BNP #### [facility] [address] [place] [address] Dr. Emilie Stack Ketones Ql (U) Negative Normal NEGATIVE The [facility] Comment on above: Performed By: #### T ROSSY CMP, BNP #### [facility] [address] [place] [address] Dr. Emilie Stack LEUKOCYTES Negative Normal NEGATIVE [facility] Comment on above: Performed By: #### T ROSSY, CMP, BNP #### [facility] [address] [place] [address] Dr. Emilie Stack MUCOUS NONE SEEN Normal NONE SEEN [facility] Comment on above: Performed By: #### T ROSSY, CMP, BNP #### [facility] [address] [place] [address] Dr. Emilie Stack Nitrite Ql (U) Negative Normal NEGATIVE [facility] Comment on above: Performed By: #### T ROSSY, CMP, BNP #### [facility] [address] [place] [address] Dr. Emilie Stack pH (U) 6.0 [pH] Normal 5-9 [facility] Comment on above: Performed By: #### T ROSSY, CMP, BNP #### [facility] [address] [place] [address] Dr. Emilie Stack RBC 2-5 Abnormal 0-2 [facility] Comment on above: Performed By: #### T ROSSY, CMP, BNP #### [facility] [address] [address] [address] Emilie Stack SPEC GRAVITY 1.015 Normal 1.005-<=1.[address] [facility] Comment on above: Performed By: #### T ROSSY, CMP, BNP #### [facility] [address] [place] [address] Dr. Emilie Stack UA PROTEIN Negative Normal NEGATIVE/ TRACE [facility] Comment on above: Performed By: #### T ROSSY CMP, BNP #### [facility] [address] [place] [address] Dr. Emilie Stack Urobilinogen Qn (U) 0.2 {Jose Guadalupe'U}/dL Normal 0.2 - 1. 0 [facility] Comment on above: Performed By: #### T ROSSY, CMP, BNP #### [facility] [address] [place] [address] Dr. Emilie Stack WBC 0-2 Abnormal NONE SEEN [facility] Comment on above: Performed By: #### T ROSSY, CMP, BNP #### [facility] [address] [place] [address] Dr. Emilie Stack BNPon 08-10-2022 Natriuretic peptide B (Bld) [Mass/Vol] 92.0 pg/mL Normal <=900.0 [facility] Comment on above: Performed By: #### T ROSSY CMP, BNP #### [facility] [address] [place] [address] Dr. Emilie Stack CARDIAC GATITO 3-6on 3 CK [Catalytic activity/Vol] 56 U/L Normal 39-308 [facility] Comment on above: Performed By: #### C MP, BNP, YESI #### [facility] [address] [address] [address] Emilie Stack CK.MB [Mass/Vol] 0.95 ng/mL Normal <=3.60 [facility] Comment on above: Performed By: #### C MP, BNP, YESI #### [facility] [address] [address] [address] Emilie Stack HSTROP 5.5 pg/mL Normal 4.0-76.1 [facility] Comment on above: Result Comment: CUT- OFF POINTS HAVE BEEN ESTABLISHED BASED ON THE FOURTH UNIVERSAL DEFINITIONS OF MYOCARDIAL INFARCTION. THE UPPER REFERENCE LIMIT (URL) OF TROPONIN, DEFINED THE 99TH PERCENTILE OF cTnI DISTRIBUTION IN A REFERENCE POPULATION, HAS BEEN CONFIRMED THE DECISION THRESHOLD FOR SD DIAGNOSIS. Performed By: #### C MP, BNP, YESI #### [facility] [address] [place] [address] Dr. Emilie Stack CARDIAC GATITO ADMITon 023 CK [Catalytic activity/Vol] 55 U/L Normal 39-308 [facility] Comment on above: Performed By: #### T ROSSY, CMP, BNP #### [facility] [address] [place] [address] Dr. Emilie Stack CK.MB [Mass/Vol] 0.94 ng/mL Normal <=3.60 [facility] Comment on above: Performed By: #### T ROSSY, CMP, BNP #### [facility] [address] [place] [address] Dr. Emilie Stack HSTROP 5.0 pg/mL Normal 4.0-76.1 [facility] Comment on above: Result Comment: CUT- OFF POINTS HAVE BEEN ESTABLISHED BASED ON THE FOURTH UNIVERSAL DEFINITIONS OF MYOCARDIAL INFARCTION. THE UPPER REFERENCE LIMIT (URL) OF TROPONIN, DEFINED THE 99TH PERCENTILE OF cTnI DISTRIBUTION IN A REFERENCE POPULATION, HAS BEEN CONFIRMED THE DECISION THRESHOLD FOR SD DIAGNOSIS. Performed By: #### T ROSSY, CMP, BNP #### [facility] [address] [place] [address] Dr. Emilie Stack BELEN 65 ng/mL Normal 16-96 [facility] Comment on above: Performed By: #### T ROSSY, CMP, BNP #### [facility] [address] [place] [address] Dr. Emilie Stack CBC AUTO DIFFon 08-10-2022 BASO # 0.0 103/ul Normal 0.0-0.1 [facility] Comment on above: Performed By: #### C MP, BNP, YESI #### [facility] [address] [place] [address] Dr. Emilie Stack Basophils/100 WBC (Bld) 0.2 % Normal 0.2-2.0 [facility] Comment on above: Performed By: #### C MP, BNP, YESI #### [facility] [address] [place] [address] Dr. Emilie Stack EO # 0.0 103/ul Normal 0.0-0.7 [facility] Comment on above: Performed By: #### C MP, BNP, YESI #### [facility] [address] [place] [address] Dr. Emilie Stack Eosinophils/100 WBC (Bld) 0.0 % Critically low 0.9-7.0 [facility] Comment on above: Performed By: #### C MP, BNP, YESI #### [facility] [address] [place] [address] Dr. Emilie Stack Erythrocyte distribution width (RBC) [Ratio] 14.7 % Normal 11.0-15.0 [facility] Comment on above: Performed By: #### C MP, BNP, YESI #### [facility] [address] [place] [address] Dr. Emilie Stack Hematocrit (Bld) [Volume fraction] 42.7 % Normal 42.0-54.0 [facility] Comment on above: Performed By: #### C MP, BNP, YESI #### [facility] [address] [place] [address] Dr. Emilie Stack Hemoglobin (Bld) [Mass/Vol] 14.4 g/dL Normal 14.0-18.0 [facility] Comment on above: Performed By: #### C MP, BNP, YESI #### [facility] [address] [place] [address] Dr. Emilie Stack IG # 0.08 10e3/ul Critically high 0.00-0.03 [facility] Comment on above: Performed By: #### C MP, BNP, YESI #### [facility] [address] [place] [address] Dr. Emilie Stack IG % 0.9 % Critically high 0.0-0.[address] [facility] Comment on above: Performed By: #### C MP, BNP, YESI #### [facility] [address] [place] [address] Dr. Emilie Stack LYMPH # 0.4 103/ul Critically low 1.2-3.8 [facility] Comment on above: Performed By: #### C MP, BNP, YESI #### [facility] [address] [place] [address] Dr. Emilie Stack Lymphocytes/100 WBC (Bld) 4.8 % Critically low 20.5-60.0 [facility] Comment on above: Performed By: #### C MP, BNP, YESI #### [facility] [address] [place] [address] Dr. Emilie Stack MANUAL DIFF REQ NO Normal [facility] Comment on above: Performed By: #### C MP, BNP, YESI #### [facility] [address] [place] [address] Dr. Emilie Stack MCH (RBC) [Entitic mass] 30.6 pg Normal 25.9-34.0 [facility] Comment on above: Performed By: #### C MP, BNP, YESI #### [facility] [address] [place] [address] Dr. Emilie Stack MCHC (RBC) [Mass/Vol] 33.7 g/dL Normal 29.9-35.2 [facility] Comment on above: Performed By: #### C MP, BNP, YESI #### [facility] [address] [place] [address] Dr. Emilie Stack MCV (RBC) [Entitic vol] 90.9 fL Normal 80.0-94.0 [facility] Comment on above: Performed By: #### C MP, BNP, YESI #### [facility] [address] [place] [address] Dr. Emilie Stack MONO # 0.7 103/ul Normal 0.3-0.8 [facility] Comment on above: Performed By: #### C MP, BNP, YESI #### [facility] [address] [place] [address] Dr. Emilie Stack Monocytes/100 WBC (Bld) 7.6 % Normal 1.7-12.0 [facility] Comment on above: Performed By: #### C MP, BNP, YESI #### [facility] [address] [place] [address] Dr. Emilie Stack NEUT # 7.5 103/ul Critically high 1.4-6.[address] [facility] Comment on above: Performed By: #### C MP, BNP, YESI #### [facility] [address] [place] [address] Dr. Emilie Stack Neutrophils/100 WBC (Bld) 86.5 % Critically high 43.0-75.0 [facility] Comment on above: Performed By: #### C MP, BNP, YESI #### [facility] [address] [place] [address] Dr. Emilie Stack Platelet mean volume (Bld) [Entitic vol] 8.7 fL Critically low 9.5-13.5 [facility] Comment on above: Performed By: #### C MP, BNP, YESI #### [facility] [address] [place] [address] Dr. Emilie Stack PLT 295 103/ul Normal 150-450 [facility] Comment on above: Performed By: #### C MP, BNP, YESI #### [facility] [address] [place] [address] Dr. Emilie Stack RBC 4.70 106/ul Normal 4.70-6.10 [facility] Comment on above: Performed By: #### C MP, BNP, YESI #### [facility] [address] [address] [address] Emilie Stack WBC 8.7 103/ul Normal 4.0-11.0 [facility] Comment on above: Performed By: #### C MP, BNP, YESI #### [facility] [id number] Emilie Stack CTA CHEST WO W [...] MAITE FRAZIER Date: 2022-08-10 20:52 Normal [facility] CULTURE BLOODon 08-10-2022 Microscopic examination of blood, culture Culture Observations: NO GROWTH AT 5 DAYS. Normal [facility] Comment on above: Performed By: #### T ROSSY, CMP, BNP #### [facility] [address] [place], [place] [address] Dr. Emilie Stack Microscopic examination of blood, culture Culture Observations: NO GROWTH AT 5 DAYS. Normal [facility] Comment on above: Performed By: #### Patience BLAIR CMP, BNP #### [facility] [address] [address] [address] Emilie Stack Covid-19 PCR ([facility])on 07-27 SARS-CoV-2 (COVID-19) RNA [place]+probe Ql (Unsp spec) Detected Abnormal NOT DETECTED [facility] Comment on above: Result Comment: This test is not yet approved or cleared by the [place] FDA. When there are no FDA-approved or cleared tests available, and other criteria are met, FDA can make tests available under an emergency access mechanism called an Emergency Use Authorization (EUA). The EUA for this test is supported by the [place] of Health and Human Service's declaration that [...] By: #### Patience BLAIR CMP, BNP #### [facility] [address] [place] [address] Dr. Emilie Stack LACTATE/LACTIC ACIDon 2022 Lactate [Moles/Vol] 2.0 mmol/L Critically high 0.4-1.9 [facility] Comment on above: Performed By: #### Patience BLAIR BNP, CMP #### [facility] [address] [place] [address] Dr. Emilie Stack PROF 14(COMP METB)on 023 Albumin [Mass/Vol] 3.4 g/dL Normal 3.4-5.0 [facility] Comment on above: Performed By: #### Patience BLAIR CMP, BNP #### [facility] [address] [place] [address] Dr. Emilie Stack Albumin/Globulin [Mass ratio] 1.1 {ratio} Normal [facility] Comment on above: Performed By: #### Patience BLAIR CMP, BNP #### [facility] [address] [address] [address] Emilie Stack ALP [Catalytic activity/Vol] 123 U/L Critically high 46-116 [facility] Comment on above: Performed By: #### Patience BLAIR CMP, BNP #### [facility] [address] [place] [address] Dr. Emilie Stack ALT [Catalytic activity/Vol] 27 U/L Normal 16-63 [facility] Comment on above: Performed By: #### Patience BLAIR CMP, BNP #### [facility] [address] [place] [address] Dr. Emilie Stack Anion gap [Moles/Vol] 11.9 mmol/L Normal [facility] Comment on above: Performed By: #### Patience BLAIR CMP, BNP #### [facility] [address] [place] [address] Dr. Emilie Stack AST [Catalytic activity/Vol] 14 U/L Critically low 15-37 [facility] Comment on above: Performed By: #### Patience BLAIR CMP, BNP #### [facility] [address] [place] [address] Dr. Emilie Stack Bilirubin [Mass/Vol] 0.2 mg/dL Normal 0.2-1.0 [facility] Comment on above: Performed By: #### Patience BLAIR CMP, BNP #### [facility] [address] [place] [address] Dr. Emilie Stack Calcium [Mass/Vol] 8.4 mg/dL Critically low 8.5-10.1 [facility] Comment on above: Performed By: #### Patience BLAIR CMP, BNP #### [facility] [address] [place] [address] Dr. Emilie Stack Chloride [Moles/Vol] 105 mmol/L Normal 98-107 [facility] Comment on above: Performed By: #### Patience BLAIR CMP, BNP #### [facility] [address] [place] [address] Dr. Emilie Stack CO2 [Moles/Vol] 27.2 mmol/L Normal 21.0-32.0 [facility] Comment on above: Performed By: #### T ROSSY, CMP, BNP #### [facility] [address] [address] [address] Emilie Stack Creatinine [Mass/Vol] 1.06 mg/dL Normal 0.70-1.30 [facility] Comment on above: Performed By: #### T ROSSY, CMP, BNP #### [facility] [address] [address] [address] Emilie Stack EGFR-AF JAPANESE >60 Normal >=60 [facility] Comment on above: Performed By: #### T ROSSY, CMP, BNP #### [facility] [address] [address] [address] Emilie Stack EGFR-NON AF JAPANESE >60 Normal >=60 [facility] Comment on above: Performed By: #### T ROSSY, CMP, BNP #### [facility] [address] [address] [address] Emilie Stack Globulin (S) [Mass/Vol] 3.1 g/dL Normal [facility] Comment on above: Performed By: #### T ROSSY, CMP, BNP #### [facility] [address] [address] [address] Emilie Stack Glucose [Mass/Vol] 115 mg/dL Critically high 74-106 [facility] Comment on above: Performed By: #### T ROSSY, CMP, BNP #### [facility] [address] [address] [address] Emilie Stack Potassium [Moles/Vol] 4.1 mmol/L Normal 3.5-5.1 [facility] Comment on above: Performed By: #### T ROSSY, CMP, BNP #### [facility] [address] [address] [address] Emilie Stack Protein [Mass/Vol] 6.5 g/dL Normal 6.4-8.2 [facility] Comment on above: Performed By: #### T ROSSY, CMP, BNP #### [facility] [address] [address] [address] Emilie Stack Sodium [Moles/Vol] 140 mmol/L Normal 136-145 [facility] Comment on above: Performed By: #### Patience BLAIR CMP, BNP #### [facility] [address] [place] [address] Dr. Emilie Stack Urea nitrogen [Mass/Vol] 11.0 mg/dL Normal 7.0-18.0 [facility] Comment on above: Performed By: #### Patience BLAIR CMP, BNP #### [facility] [address] [place] [address] Dr. Emilie Stack Urea nitrogen/Creatinine [Mass ratio] 10.4 mg/mg Normal [facility] Comment on above: Performed By: #### Patience BLAIR CMP, BNP #### [facility] [address] [place] [address] Dr. Emilie Stcak T4on 08-10-2022 T4 [Mass/Vol] 9.00 ug/dL Normal 4.50-12.10 [facility] Comment on above: Performed By: #### Patience BLARI CMP, BNP #### [facility] [address] [place] [address] Dr. Emilie Stack THEOPHYLLINEon 08-10-2022 THEOPHYLLINE 5.1 ug/mL Critically low 10.0-20.0 [facility] Comment on above: Performed By: #### Patience BLAIR CMP, BNP #### [facility] [address] [place] [address] Dr. Emilie Stack TSHon 08-10-2022 TSH 0.585 uIU/mL Normal 0.358-3.740 [facility] Comment on above: Performed By: #### Patience BLAIR CMP, BNP #### [facility] [address] [place] [address] Dr. Emilie Stack BNPon 06-18-2022 Natriuretic peptide B (Bld) [Mass/Vol] 297.0 pg/mL Normal <=900.0 [facility] Comment on above: Performed By: #### Patience BLAIR CMP, BNP #### [facility] [address] [place] [address] Dr. Emilie Stack CBC AUTO DIFFon 06-18-2022 BASO # 0.0 103/ul Normal 0.0-0.1 [facility] Comment on above: Performed By: #### Patience BLAIR CMP, BNP #### [facility] [address] [address] [address] Emilie Stack Basophils/100 WBC (Bld) 0.1 % Critically low 0.2-2.0 [facility] Comment on above: Performed By: #### T ROSSY CMP, BNP #### [facility] [address] [address] [address] Emilie Stack EO # 0.0 103/ul Normal 0.0-0.7 [facility] Comment on above: Performed By: #### Patience BLAIR CMP, BNP #### [facility] [address] [place] [address] Dr. Emilie Stack Eosinophils/100 WBC (Bld) 0.0 % Critically low 0.9-7.0 [facility] Comment on above: Performed By: #### Patience BLAIR CMP, BNP #### [facility] [address] [place] [address] Dr. Emilie Stack Erythrocyte distribution width (RBC) [Ratio] 14.5 % Normal 11.0-15.0 [facility] Comment on above: Performed By: #### Patience BLAIR CMP, BNP #### [facility] [address] [place] [address] Dr. Emilie Stack Hematocrit (Bld) [Volume fraction] 40.2 % Critically low 42.0-54.0 [facility] Comment on above: Performed By: #### T ROSSY CMP, BNP #### [facility] [address] [place] [address] Dr. Emilie Stack Hemoglobin (Bld) [Mass/Vol] 13.4 g/dL Critically low 14.0-18.0 [facility] Comment on above: Performed By: #### T ROSSY CMP, BNP #### [facility] [address] [place] [address] Dr. Emilie Stack IG # 0.08 10e3/ul Critically high 0.00-0.03 [facility] Comment on above: Performed By: #### T ROSSY, CMP, BNP #### [facility] [address] [address] [address] Emilie Stack IG % 0.7 % Critically high 0.0-0.[address] [facility] Comment on above: Performed By: #### T ROSSY, CMP, BNP #### [facility] [address] [address] [address] Emilie Stack LYMPH # 0.5 103/ul Critically low 1.2-3.8 [facility] Comment on above: Performed By: #### T ROSSY, CMP, BNP #### [facility] [address] [place] [address] Dr. Emilie Stack Lymphocytes/100 WBC (Bld) 4.4 % Critically low 20.5-60.0 [facility] Comment on above: Performed By: #### T ROSSY CMP, BNP #### [facility] [address] [place] [address] Dr. Emilie Stack MANUAL DIFF REQ NO Normal [facility] Comment on above: Performed By: #### T ROSSY CMP, BNP #### [facility] [address] [place] [address] Dr. Emilie Stack MCH (RBC) [Entitic mass] 30.0 pg Normal 25.9-34.0 [facility] Comment on above: Performed By: #### T ROSSY CMP, BNP #### [facility] [address] [place] [address] Dr. Emilie Stack MCHC (RBC) [Mass/Vol] 33.3 g/dL Normal 29.9-35.2 [facility] Comment on above: Performed By: #### T ROSSY, CMP, BNP #### [facility] [address] [place] [address] Dr. Emilie Stack MCV (RBC) [Entitic vol] 89.9 fL Normal 80.0-94.0 [facility] Comment on above: Performed By: #### T ROSSY, CMP, BNP #### [facility] [address] [place] [address] Dr. Emilie Stack MONO # 0.5 103/ul Normal 0.3-0.8 [facility] Comment on above: Performed By: #### Patience BLAIR CMP, BNP #### [facility] [address] [address] [address] Emilie Stack Monocytes/100 WBC (Bld) 4.3 % Normal 1.7-12.0 [facility] Comment on above: Performed By: #### Paitence BLAIR CMP, BNP #### [facility] [address] [place] [address] Dr. Emilie Stack NEUT # 10.8 103/ul Critically high 1.4-6.5 [facility] Comment on above: Performed By: #### Patience BLAIR CMP, BNP #### [facility] [address] [place] [address] Dr. Emilie Stack Neutrophils/100 WBC (Bld) 90.5 % Critically high 43.0-75.0 [facility] Comment on above: Performed By: #### Patience BLAIR CMP, BNP #### [facility] [address] [address] [address] Emilie Stack Platelet mean volume (Bld) [Entitic vol] 8.5 fL Critically low 9.5-13.5 [facility] Comment on above: Performed By: #### Patience BLAIR CMP, BNP #### [facility] [address] [place] [address] Dr. Emilie Stack PLT 309 103/ul Normal 150-450 [facility] Comment on above: Performed By: #### Patience BLAIR CMP, BNP #### [facility] [address] [place] [address] Dr. Emilie Stack RBC 4.47 106/ul Critically low 4.70-6.[address] [facility] Comment on above: Performed By: #### Patience BLAIR CMP, BNP #### [facility] [address] [address] [address] Emilie Stack WBC 11.9 103/ul Critically high 4.0-11.0 [facility] Comment on above: Performed By: #### Patience BLAIR CMP, BNP #### [facility] [address] [place] [address] Dr. Emilie Stack PROF 14(COMP METB)on 022 Albumin [Mass/Vol] 3.4 g/dL Normal 3.4-5.0 [facility] Comment on above: Performed By: #### T ROSSY, CMP, BNP #### [facility] [address] [place] [address] Dr. Emilie Stack Albumin/Globulin [Mass ratio] 1.0 {ratio} Normal [facility] Comment on above: Performed By: #### T ROSSY, CMP, BNP #### [facility] [address] [place] [address] Dr. Emilie Stack ALP [Catalytic activity/Vol] 120 U/L Critically high 46-116 [facility] Comment on above: Performed By: #### T ROSSY, CMP, BNP #### [facility] [address] [place] [address] Dr. Emilie Stack ALT [Catalytic activity/Vol] 17 U/L Normal 16-63 [facility] Comment on above: Performed By: #### T ROSSY, CMP, BNP #### [facility] [address] [place] [address] Dr. Emilie Stack Anion gap [Moles/Vol] 13.3 mmol/L Normal [facility] Comment on above: Performed By: #### T ROSSY, CMP, BNP #### [facility] [address] [place] [address] Dr. Emilie Stack AST [Catalytic activity/Vol] 15 U/L Normal 15-37 [facility] Comment on above: Performed By: #### T ROSSY, CMP, BNP #### [facility] [address] [place] [address] Dr. Emilie Stack Bilirubin [Mass/Vol] 0.2 mg/dL Normal 0.2-1.0 [facility] Comment on above: Performed By: #### T ROSSY, CMP, BNP #### [facility] [address] [place] [address] Dr. Emilie Stack Calcium [Mass/Vol] 8.5 mg/dL Normal 8.5-10.1 [facility] Comment on above: Performed By: #### Patience BLAIR CMP, BNP #### [facility] [address] [address] [address] Emilie Stack Chloride [Moles/Vol] 102 mmol/L Normal 98-107 [facility] Comment on above: Performed By: #### Patience BLAIR CMP, BNP #### [facility] [address] [address] [address] Emilie Stack CO2 [Moles/Vol] 24.1 mmol/L Normal 21.0-32.0 [facility] Comment on above: Performed By: #### Patience BLAIR CMP, BNP #### [facility] [address] [place] [address] Dr. Emilie Stack Creatinine [Mass/Vol] 1.12 mg/dL Normal 0.70-1.30 [facility] Comment on above: Performed By: #### Patience BLAIR CMP, BNP #### [facility] [address] [address] [address] Emilie Stack EGFR-AF JAPANESE >60 Normal >=60 [facility] Comment on above: Performed By: #### Patience BLAIR CMP, BNP #### [facility] [address] [place] [address] Dr. Emilie Stack EGFR-NON AF JAPANESE >60 Normal >=60 [facility] Comment on above: Performed By: #### Patience BLAIR CMP, BNP #### [facility] [address] [address] [address] Emilie Stack Globulin (S) [Mass/Vol] 3.3 g/dL Normal [facility] Comment on above: Performed By: #### Patience BLAIR CMP, BNP #### [facility] [address] [address] [address] Emilie Stack Glucose [Mass/Vol] 138 mg/dL Critically high 74-106 [facility] Comment on above: Performed By: #### Patience BLAIR CMP, BNP #### [facility] [address] [address] [address] Emilie Stack Potassium [Moles/Vol] 4.4 mmol/L Normal 3.5-5.1 [facility] Comment on above: Performed By: #### T ROSSY CMP, BNP #### [facility] [address] [place] [address] Dr. Emilie Stack Protein [Mass/Vol] 6.7 g/dL Normal 6.4-8.2 [facility] Comment on above: Performed By: #### T ROSSY CMP, BNP #### [facility] [address] [address] [address] Emilie Stack Sodium [Moles/Vol] 135 mmol/L Critically low 136-145 [facility] Comment on above: Performed By: #### T ROSSY CMP, BNP #### [facility] [address] [place] [address] Dr. Emilie Stack Urea nitrogen [Mass/Vol] 23.0 mg/dL Critically high 7.0-18.0 [facility] Comment on above: Performed By: #### T ROSSY CMP, BNP #### [facility] [address] [place] [address] Dr. Emilie Stack Urea nitrogen/Creatinine [Mass ratio] 20.5 mg/mg Normal [facility] Comment on above: Performed By: #### T ROSSY CMP, BNP #### [facility] [address] [place] [address] Dr. Emilie Stack THEOPHYLLINEon 06-18-2022 THEOPHYLLINE 9.0 ug/mL Critically low 10.0-20.0 [facility] Comment on above: Performed By: #### T ROSSY CMP, BNP #### [facility] [address] [place] [address] Dr. Emilie CANDELARIOon 06-17-2022 Natriuretic peptide B (Bld) [Mass/Vol] 320.0 pg/mL Normal <=900.0 [facility] Comment on above: Performed By: #### T ROSSY BNP, CMP #### [facility] [address] [place] [address] Dr. Emilie Stack CBC AUTO DIFFon 06-17-2022 BASO # 0.0 103/ul Normal 0.0-0.1 [facility] Comment on above: Performed By: #### T ROSSY, CMP, BNP #### [facility] [address] [place] [address] Dr. Emilie Stack Basophils/100 WBC (Bld) 0.1 % Critically low 0.2-2.0 [facility] Comment on above: Performed By: #### T ROSSY, CMP, BNP #### [facility] [address] [place] [address] Dr. Emilie Stack EO # 0.0 103/ul Normal 0.0-0.7 [facility] Comment on above: Performed By: #### T ROSSY CMP, BNP #### [facility] [address] [place] [address] Dr. Emilie Stack Eosinophils/100 WBC (Bld) 0.0 % Critically low 0.9-7.0 [facility] Comment on above: Performed By: #### T ROSSY CMP, BNP #### [facility] [address] [place] [address] Dr. Emilie Stack Erythrocyte distribution width (RBC) [Ratio] 14.3 % Normal 11.0-15.0 [facility] Comment on above: Performed By: #### T ROSSY CMP, BNP #### [facility] [address] [place] [address] Dr. Emilie Stack Hematocrit (Bld) [Volume fraction] 41.7 % Critically low 42.0-54.0 [facility] Comment on above: Performed By: #### T ROSSY, CMP, BNP #### [facility] [address] [place] [address] Dr. Emilie Stack Hemoglobin (Bld) [Mass/Vol] 13.8 g/dL Critically low 14.0-18.0 [facility] Comment on above: Performed By: #### T ROSSY CMP, BNP #### [facility] [address] [place] [address] Dr. Emilie Stack IG # 0.09 10e3/ul Critically high 0.00-0.03 [facility] Comment on above: Performed By: #### T ROSSY CMP, BNP #### [facility] [address] [place] [address] Dr. Emilie Stack IG % 0.6 % Critically high 0.0-0.[address] [facility] Comment on above: Performed By: #### T ROSSY CMP, BNP #### [facility] [address] [place] [address] Dr. Emilie Stack LYMPH # 0.6 103/ul Critically low 1.2-3.8 The [facility] Comment on above: Performed By: #### Patience BLAIR CMP, BNP #### [facility] [address] [place] [address] Dr. Emilie Stack Lymphocytes/100 WBC (Bld) 4.1 % Critically low 20.5-60.0 [facility] Comment on above: Performed By: #### Patience BLAIR CMP, BNP #### [facility] [address] [place] [address] Dr. Emilie Stack MANUAL DIFF REQ NO Normal [facility] Comment on above: Performed By: #### T ROSSY CMP, BNP #### [facility] [address] [place] [address] Dr. Emilie Stack MCH (RBC) [Entitic mass] 29.9 pg Normal 25.9-34.0 [facility] Comment on above: Performed By: #### T ROSSY CMP, BNP #### [facility] [address] [place] [address] Dr. Emilie Stack MCHC (RBC) [Mass/Vol] 33.1 g/dL Normal 29.9-35.2 [facility] Comment on above: Performed By: #### T ROSSY CMP, BNP #### [facility] [address] [place] [address] Dr. Emilie Stack MCV (RBC) [Entitic vol] 90.5 fL Normal 80.0-94.0 [facility] Comment on above: Performed By: #### T ROSSY CMP, BNP #### [facility] [address] [address] [address] Emilie Stack MONO # 0.5 103/ul Normal 0.3-0.8 [facility] Comment on above: Performed By: #### Patience BLAIR CMP, BNP #### [facility] [address] [address] [address] Emilie Stack Monocytes/100 WBC (Bld) 3.4 % Normal 1.7-12.0 [facility] Comment on above: Performed By: #### Patience BLAIR CMP, BNP #### [facility] [address] [address] [address] Emilie Stack NEUT # 13.1 103/ul Critically high 1.4-6.5 [facility] Comment on above: Performed By: #### Patience BLAIR CMP, BNP #### [facility] [address] [place] [address] Dr. Emilie Stack Neutrophils/100 WBC (Bld) 91.8 % Critically high 43.0-75.0 [facility] Comment on above: Performed By: #### Patience BLAIR CMP, BNP #### [facility] [address] [address] [address] Emilie Stack Platelet mean volume (Bld) [Entitic vol] 8.8 fL Critically low 9.5-13.5 [facility] Comment on above: Performed By: #### Patience BLAIR CMP, BNP #### [facility] [address] [address] [address] Emilie Stack PLT 341 103/ul Normal 150-450 [facility] Comment on above: Performed By: #### Patience BLAIR CMP, BNP #### [facility] [address] [address] [address] Emilie Stack RBC 4.61 106/ul Critically low 4.70-6.[address] [facility] Comment on above: Performed By: #### Patience BLAIR CMP, BNP #### [facility] [address] [address] [address] Emilie Stack WBC 14.3 103/ul Critically high 4.0-11.0 [facility] Comment on above: Performed By: #### T ROSSY, CMP, BNP #### [facility] [address] [address] [address] Emilie Stack PROF 14(COMP METB)on 022 Albumin [Mass/Vol] 3.8 g/dL Normal 3.4-5.0 [facility] Comment on above: Performed By: #### T ROSSY, BNP, CMP #### [facility] [address] [address] [address] Emilie Stack Albumin/Globulin [Mass ratio] 1.1 {ratio} Normal [facility] Comment on above: Performed By: #### T ROSSY, BNP, CMP #### [facility] [address] [address] [address] Emilie Stack ALP [Catalytic activity/Vol] 139 U/L Critically high 46-116 [facility] Comment on above: Performed By: #### T ROSSY BNP, CMP #### [facility] [address] [address] [address] Emilie Stack ALT [Catalytic activity/Vol] 20 U/L Normal 16-63 [facility] Comment on above: Performed By: #### T ROSSY BNP, CMP #### [facility] [address] [address] [address] Emilie Stack Anion gap [Moles/Vol] 15.1 mmol/L Normal [facility] Comment on above: Performed By: #### T ROSSY, BNP, CMP #### [facility] [address] [address] [address] Emilie Stack AST [Catalytic activity/Vol] 16 U/L Normal 15-37 [facility] Comment on above: Performed By: #### T ROSSY, BNP, CMP #### [facility] [address] [place] [address] Dr. Emilie Stack Bilirubin [Mass/Vol] 0.2 mg/dL Normal 0.2-1.0 [facility] Comment on above: Performed By: #### T ROSSY, BNP, CMP #### [facility] [address] [address] [address] Emilie Stack Calcium [Mass/Vol] 9.2 mg/dL Normal 8.5-10.1 [facility] Comment on above: Performed By: #### T ROSSY BNP, CMP #### [facility] [address] [place] [address] Dr. Emilie Stack Chloride [Moles/Vol] 102 mmol/L Normal 98-107 [facility] Comment on above: Performed By: #### T ROSSY, BNP, CMP #### [facility] [address] [place] [address] Dr. Emilie Stack CO2 [Moles/Vol] 23.2 mmol/L Normal 21.0-32.0 [facility] Comment on above: Performed By: #### Patience BLAIR BNP, CMP #### [facility] [address] [place] [address] Dr. Emilie Stack Creatinine [Mass/Vol] 1.16 mg/dL Normal 0.70-1.30 [facility] Comment on above: Performed By: #### Patience BLAIR BNP, CMP #### [facility] [address] [place] [address] Dr. Emilie Stack EGFR-AF JAPANESE >60 Normal >=60 [facility] Comment on above: Performed By: #### Patience BLAIR BNP, CMP #### [facility] [address] [place] [address] Dr. Emilie Stack EGFR-NON AF JAPANESE >60 Normal >=60 [facility] Comment on above: Performed By: #### T ROSSY, BNP, CMP #### [facility] [address] [place] [address] Dr. Emilie Stack Globulin (S) [Mass/Vol] 3.6 g/dL Normal [facility] Comment on above: Performed By: #### T ROSSY, BNP, CMP #### [facility] [address] [place] [address] Dr. Emilie Stack Glucose [Mass/Vol] 138 mg/dL Critically high 74-106 [facility] Comment on above: Performed By: #### T ROSSY, BNP, CMP #### [facility] [address] [place] [address] Dr. Emilie Stack Potassium [Moles/Vol] 4.3 mmol/L Normal 3.5-5.1 [facility] Comment on above: Performed By: #### T ROSSY, BNP, CMP #### [facility] [address] [place] [address] Dr. Emilie Stack Protein [Mass/Vol] 7.4 g/dL Normal 6.4-8.2 [facility] Comment on above: Performed By: #### T ROSSY, BNP, CMP #### [facility] [address] [place] [address] Dr. Emilie Stack Sodium [Moles/Vol] 136 mmol/L Normal 136-145 [facility] Comment on above: Performed By: #### T ROSSY, BNP, CMP #### [facility] [address] [place] [address] Dr. Emilie Stack Urea nitrogen [Mass/Vol] 19.0 mg/dL Critically high 7.0-18.0 [facility] Comment on above: Performed By: #### T ROSSY, BNP, CMP #### [facility] [address] [place] [address] Dr. Emilie Stack Urea nitrogen/Creatinine [Mass ratio] 16.4 mg/mg Normal [facility] Comment on above: Performed By: #### T ROSSY, BNP, CMP #### [facility] [address] [place] [address] Dr. Emilie Stack THEOPHYLLINEon 06-17-2022 THEOPHYLLINE 8.3 ug/mL Critically low 10.0-20.0 [facility] Comment on above: Performed By: #### T ROSSY, BNP, CMP #### [facility] [address] [place] [address] Dr. Emilie Archer 06-16-2022 Natriuretic peptide B (Bld) [Mass/Vol] 73.0 pg/mL Normal <=900.0 [facility] Comment on above: Performed By: #### C MP, BNP, YESI #### [facility] [address] [place] [address] Dr. Emilie Stack CBC W MANUAL DIFFon 06-16-20 22 ATYPICAL LYMPH # Normal [facility] Comment on above: Performed By: #### C MP, BNP, YESI #### [facility] [address] [place] [address] Dr. Emilie Stack ATYPICAL LYMPH % Normal [facility] Comment on above: Performed By: #### C MP, BNP, YESI #### [facility] [address] [place] [address] Dr. Emilie Stack BAND # 0.0 103/ul Normal 0.0-0.3 [facility] Comment on above: Performed By: #### C MP, BNP, YESI #### [facility] [address] [place] [address] Dr. Emilie Stack BAND % 0 % Normal 0-5 [facility] Comment on above: Performed By: #### C MP, BNP, YESI #### [facility] [address] [place] [address] Dr. Emilie Stack BASOM # 0.00 103/ul Normal 0.00-0.10 [facility] Comment on above: Performed By: #### C MP, BNP, YESI #### [facility] [address] [place] [address] Dr. Emilie Stack BASOM % 0.0 % Critically low 0.2-2.0 [facility] Comment on above: Performed By: #### C MP, BNP, YESI #### [facility] [address] [place] [address] Dr. Emilie Stack BLAST # Normal [facility] Comment on above: Performed By: #### C MP, BNP, YESI #### [facility] [address] [place] [address] Dr. Emilie Stack BLAST % Normal [facility] Comment on above: Performed By: #### C MP, BNP, YESI #### [facility] [address] [place] [address] Dr. Emilie Stack CORRECTED WBC Normal 4.0-11.0 [facility] Comment on above: Performed By: #### C MP, BNP, YESI #### [facility] [address] [address] [address] Emilie Stack EOS # 0.00 103/ul Normal 0.00-0.70 [facility] Comment on above: Performed By: #### C MP, BNP, YESI #### [facility] [address] [address] [address] Emilie Stack EOS% 0.0 % Critically low 0.9-7.0 [facility] Comment on above: Performed By: #### C MP, BNP, YESI #### [facility] [address] [address] [address] Emilie Stack HCT 41.2 % Critically low 42.0-54.0 [facility] Comment on above: Performed By: #### C MP, BNP, YESI #### [facility] [address] [place] [address] Dr. Emilie Stack HGB 13.7 g/dl Critically low 14.0-18.0 [facility] Comment on above: Performed By: #### C MP, BNP, YESI #### [facility] [address] [place] [address] Dr. Emilie Stack LYMPHM # 0.42 103/ul Critically low 1.20-3.[address] [facility] Comment on above: Performed By: #### C MP, BNP, YESI #### [facility] [address] [address] [address] Emilie Stack LYMPHM% 5.0 % Critically low 20.5-60.0 [facility] Comment on above: Performed By: #### C MP, BNP, YESI #### [facility] [address] [place] [address] Dr. Emilie Stack MCH 30.2 pg Normal 25.9-34.0 [facility] Comment on above: Performed By: #### C MP, BNP, YESI #### [facility] [address] [place] [address] Dr. Emilie Stack MCHC 33.3 g/dl Normal 29.9-35.2 [facility] Comment on above: Performed By: #### C MP, BNP, YESI #### [facility] [address] [address] [address] Emilie Stack MCV 90.7 fL Normal 80.0-94.0 [facility] Comment on above: Performed By: #### C MP, BNP, YESI #### [facility] [address] [address] [address] Emilie Stack METAMYELOCYTE # Normal [facility] Comment on above: Performed By: #### C MP, BNP, YESI #### [facility] [address] [address] [address] Emilie Stack METAMYELOCYTE % Normal [facility] Comment on above: Performed By: #### C MP, BNP, YESI #### [facility] [address] [place] [address] Dr. Emilie Stack MONOM# 0.00 103/ul Critically low 0.30-0.[address] [facility] Comment on above: Performed By: #### C MP, BNP, YESI #### [facility] [address] [address] [address] Emilie Stack MONOM% 0.0 % Critically low 1.7-12.0 [facility] Comment on above: Performed By: #### C MP, BNP, YESI #### [facility] [address] [address] [address] Emilie Stack MPV 8.7 fL Critically low 9.5-13.5 [facility] Comment on above: Performed By: #### C MP, BNP, YESI #### [facility] [address] [address] [address] Emilie Stack MYELOCYTE # Normal [facility] Comment on above: Performed By: #### C MP, BNP, YESI #### [facility] [address] [place] [address] Dr. Emilie Stack MYELOCYTE % Normal [facility] Comment on above: Performed By: #### C MP, BNP, YESI #### [facility] [address] [place] [address] Dr. Emilie Stack NR Normal [facility] Comment on above: Performed By: #### C MP, BNP, YESI #### [facility] [address] [place] [address] Dr. Emilie Stack PLT 286 103/ul Normal 150-450 [facility] Comment on above: Performed By: #### C MP, BNP, YESI #### [facility] [address] [address] [address] Emilie Stack RBC 4.54 106/ul Critically low 4.70-6.[address] [facility] Comment on above: Performed By: #### C MP, BNP, YESI #### [facility] [address] [place] [address] Dr. Emilie Stack RDW 13.7 % Normal 11.0-15.0 [facility] Comment on above: Performed By: #### C MP, BNP, YESI #### [facility] [address] [place] [address] Dr. Emilie Stack SEG # 7.98 103/ul Critically high 1.40-6.50 [facility] Comment on above: Performed By: #### C MP, BNP, EYSI #### [facility] [address] [place] [address] Dr. Emilie Stack SEG % 95.0 % Critically high 43.0-75.[address] [facility] Comment on above: Performed By: #### C MP, BNP, YESI #### [facility] [address] [place] [address] Dr. Emilie Stack WBC 8.4 103/ul Normal 4.0-11.0 [facility] Comment on above: Performed By: #### C MP, BNP, YESI #### [facility] [address] [place] [address] Dr. Emilie Stack PROF 14(COMP METB)on 022 Albumin [Mass/Vol] 3.5 g/dL Normal 3.4-5.0 [facility] Comment on above: Performed By: #### C MP, BNP, YESI #### [facility] [address] [address] [address] Emilie Stack Albumin/Globulin [Mass ratio] 1.0 {ratio} Normal [facility] Comment on above: Performed By: #### C MP, BNP, YESI #### [facility] [address] [address] [address] Emilie Stack ALP [Catalytic activity/Vol] 137 U/L Critically high 46-116 [facility] Comment on above: Performed By: #### C MP, BNP, YESI #### [facility] [address] [address] [address] Emilie Stack ALT [Catalytic activity/Vol] 22 U/L Normal 16-63 [facility] Comment on above: Performed By: #### C MP, BNP, YESI #### [facility] [address] [address] [address] Emilie Stack Anion gap [Moles/Vol] 15.3 mmol/L Normal [facility] Comment on above: Performed By: #### C MP, BNP, YESI #### [facility] [address] [address] [address] Emilie Stack AST [Catalytic activity/Vol] 13 U/L Critically low 15-37 [facility] Comment on above: Performed By: #### C MP, BNP, YESI #### [facility] [address] [address] [address] Emilie Stack Bilirubin [Mass/Vol] 0.1 mg/dL Critically low 0.2-1.0 [facility] Comment on above: Performed By: #### C MP, BNP, YESI #### [facility] [address] [address] [address] Emilie Stack Calcium [Mass/Vol] 9.2 mg/dL Normal 8.5-10.1 [facility] Comment on above: Performed By: #### C MP, BNP, YESI #### [facility] [address] [address] [address] Emilie Stack Chloride [Moles/Vol] 101 mmol/L Normal 98-107 [facility] Comment on above: Performed By: #### C MP, BNP, YESI #### [facility] [address] [place] [address] Dr. Emilie Stack CO2 [Moles/Vol] 21.4 mmol/L Normal 21.0-32.0 [facility] Comment on above: Performed By: #### C MP, BNP, YESI #### [facility] [address] [place] [address] Dr. Emilie Stack Creatinine [Mass/Vol] 1.26 mg/dL Normal 0.70-1.30 [facility] Comment on above: Performed By: #### C MP, BNP, YESI #### [facility] [address] [place] [address] Dr. Emilie Stack EGFR-AF JAPANESE >60 Normal >=60 [facility] Comment on above: Performed By: #### C MP, BNP, YESI #### [facility] [address] [place] [address] Dr. Emilie Stack EGFR-NON AF JAPANESE 56 mL/min/1.73m2 Critically low >=60 [facility] Comment on above: Performed By: #### C MP, BNP, YESI #### [facility] [address] [place] [address] Dr. Emilie Stack Globulin (S) [Mass/Vol] 3.5 g/dL Normal [facility] Comment on above: Performed By: #### C MP, BNP, YESI #### [facility] [address] [place] [address] Dr. Emilie Stack Glucose [Mass/Vol] 159 mg/dL Critically high 74-106 [facility] Comment on above: Performed By: #### C MP, BNP, YESI #### [facility] [address] [place] [address] Dr. Emilie Stack Potassium [Moles/Vol] 3.7 mmol/L Normal 3.5-5.1 [facility] Comment on above: Performed By: #### C MP, BNP, YESI #### [facility] [address] [place] [address] Dr. Emilie Stack Protein [Mass/Vol] 7.0 g/dL Normal 6.4-8.2 [facility] Comment on above: Performed By: #### C MP, BNP, YESI #### [facility] [address] [address] [address] Emilie Stack Sodium [Moles/Vol] 134 mmol/L Critically low 136-145 [facility] Comment on above: Performed By: #### C MP, BNP, YESI #### [facility] [address] [address] [address] Emilie Stack Urea nitrogen [Mass/Vol] 23.0 mg/dL Critically high 7.0-18.0 [facility] Comment on above: Performed By: #### C MP, BNP, YESI #### [facility] [address] [place] [address] Dr. Emilie Stack Urea nitrogen/Creatinine [Mass ratio] 18.3 mg/mg Normal [facility] Comment on above: Performed By: #### C MP, BNP, YESI #### [facility] [address] [place] [address] Dr. Emilie Stack T3, TOTAL (TRIIODOTHYRONINE) on 06-16-2022 T3, TOTAL 128 ng/dL Normal 71-180 [facility] Comment on above: Performed By: #### T ROSSY, CMP, BNP #### [facility] [address] [address] [address] Emilie Stack THEOPHYLLINEon 06-16-2022 THEOPHYLLINE 5.9 ug/mL Critically low 10.0-20.0 [facility] Comment on above: Performed By: #### T ROSSY, BNP, CMP #### [facility] [address] [place] [address] Dr. Emilie Satck BNPon 06-15-2022 Natriuretic peptide B (Bld) [Mass/Vol] 30.0 pg/mL Normal <=900.0 [facility] Comment on above: Performed By: #### C MP, BNP, YESI #### [facility] [address] [place] [address] Dr. Emilie Stack CARDIAC GATITO 3-6on 2 CK [Catalytic activity/Vol] 110 U/L Normal 39-308 [facility] Comment on above: Performed By: #### C MP, BNP, YESI #### [facility] [address] [place] [address] Dr. Emilie Stack CK.MB [Mass/Vol] 1.64 ng/mL Normal <=3.60 [facility] Comment on above: Performed By: #### C MP, BNP, YESI #### [facility] [address] [place] [address] Dr. Emilie Stack HSTROP 6.1 pg/mL Normal 4.0-76.1 [facility] Comment on above: Result Comment: CUT- OFF POINTS HAVE BEEN ESTABLISHED BASED ON THE FOURTH UNIVERSAL DEFINITIONS OF MYOCARDIAL INFARCTION. THE UPPER REFERENCE LIMIT (URL) OF TROPONIN, DEFINED THE 99TH PERCENTILE OF cTnI DISTRIBUTION IN A REFERENCE POPULATION, HAS BEEN CONFIRMED THE DECISION THRESHOLD FOR SD DIAGNOSIS. Performed By: #### C MP, BNP, YESI #### [facility] [address] [place] [address] Dr. Emilie Stack Performed By: #### T ROSSY, CMP, BNP #### [facility] [address] [place] [address] Dr. Emilie Stack CK [Catalytic activity/Vol] 125 U/L Normal 39-308 [facility] Comment on above: Performed By: #### T ROSSY, CMP, BNP #### [facility] [address] [place] [address] Dr. Emilie Stack CK.MB [Mass/Vol] 1.83 ng/mL Normal <=3.60 [facility] Comment on above: Performed By: #### T ROSSY, CMP, BNP #### [facility] [address] [place] [address] Dr. Emilie Stack CARDIAC GATITO ADMITon 022 CK [Catalytic activity/Vol] 129 U/L Normal 39-308 [facility] Comment on above: Performed By: #### C MP, BNP, YESI #### [facility] [address] [place] [address] Dr. Emilie Stack CK.MB [Mass/Vol] 1.68 ng/mL Normal <=3.60 [facility] Comment on above: Performed By: #### C MP, BNP, YESI #### [facility] [address] [place] [address] Dr. Emilie Stack HSTROP 6.6 pg/mL Normal 4.0-76.1 [facility] Comment on above: Result Comment: CUT- OFF POINTS HAVE BEEN ESTABLISHED BASED ON THE FOURTH UNIVERSAL DEFINITIONS OF MYOCARDIAL INFARCTION. THE UPPER REFERENCE LIMIT (URL) OF TROPONIN, DEFINED THE 99TH PERCENTILE OF cTnI DISTRIBUTION IN A REFERENCE POPULATION, HAS BEEN CONFIRMED THE DECISION THRESHOLD FOR SD DIAGNOSIS. Performed By: #### C MP, BNP, YESI #### [facility] [address] [place] [address] Dr. Emilie Stack BELEN 85 ng/mL Normal 16-96 [facility] Comment on above: Performed By: #### C MP, BNP, YESI #### [facility] [address] [place] [address] Dr. Emilie Stack CBC AUTO DIFFon 06-15-2022 BASO # 0.1 103/ul Normal 0.0-0.1 [facility] Comment on above: Performed By: #### C MP, BNP, YESI #### [facility] [address] [place] [address] Dr. Emilie Stack Basophils/100 WBC (Bld) 0.8 % Normal 0.2-2.0 [facility] Comment on above: Performed By: #### C MP, BNP, YESI #### [facility] [address] [place] [address] Dr. Emilie Stack EO # 0.2 103/ul Normal 0.0-0.7 [facility] Comment on above: Performed By: #### C MP, BNP, YESI #### [facility] [address] [place] [address] Dr. Emilie Stack Eosinophils/100 WBC (Bld) 4.1 % Normal 0.9-7.0 [facility] Comment on above: Performed By: #### C MP, BNP, YESI #### [facility] [address] [place] [address] Dr. Emilie Stack Erythrocyte distribution width (RBC) [Ratio] 13.8 % Normal 11.0-15.0 [facility] Comment on above: Performed By: #### C MP, BNP, YESI #### [facility] [address] [place] [address] Dr. Emilie Stack Hematocrit (Bld) [Volume fraction] 45.8 % Normal 42.0-54.0 [facility] Comment on above: Performed By: #### C MP, BNP, YESI #### [facility] [address] [place] [address] Dr. Emilie Stack Hemoglobin (Bld) [Mass/Vol] 15.1 g/dL Normal 14.0-18.0 [facility] Comment on above: Performed By: #### C MP, BNP, YESI #### [facility] [address] [place] [address] Dr. Emilie Stack IG # 0.02 10e3/ul Normal 0.00-0.03 [facility] Comment on above: Performed By: #### C MP, BNP, YESI #### [facility] [address] [place] [address] Dr. Emilie Stack IG % 0.3 % Normal 0.0-0.5 [facility] Comment on above: Performed By: #### C MP, BNP, YESI #### [facility] [address] [place] [address] Dr. Emilie Stack LYMPH # 1.5 103/ul Normal 1.2-3.8 [facility] Comment on above: Performed By: #### C MP, BNP, YESI #### [facility] [address] [place] [address] Dr. Emilie Stack Lymphocytes/100 WBC (Bld) 25.3 % Normal 20.5-60.0 [facility] Comment on above: Performed By: #### C MP, BNP, YESI #### [facility] [address] [place] [address] Dr. Emilie Stack MANUAL DIFF REQ NO Normal [facility] Comment on above: Performed By: #### C MP, BNP, YESI #### [facility] [address] [place] [address] Dr. Emilie Stack MCH (RBC) [Entitic mass] 29.9 pg Normal 25.9-34.0 [facility] Comment on above: Performed By: #### C MP, BNP, YESI #### [facility] [address] [place] [address] Dr. Emilie Stack MCHC (RBC) [Mass/Vol] 33.0 g/dL Normal 29.9-35.2 [facility] Comment on above: Performed By: #### C MP, BNP, YESI #### [facility] [address] [place] [address] Dr. Emilie Stack MCV (RBC) [Entitic vol] 90.7 fL Normal 80.0-94.0 [facility] Comment on above: Performed By: #### C MP, BNP, YESI #### [facility] [address] [place] [address] Dr. Emilie Stack MONO # 0.6 103/ul Normal 0.3-0.8 [facility] Comment on above: Performed By: #### C MP, BNP, YESI #### [facility] [address] [place] [address] Dr. Emilie Stack Monocytes/100 WBC (Bld) 10.3 % Normal 1.7-12.0 [facility] Comment on above: Performed By: #### C MP, BNP, YESI #### [facility] [address] [place] [address] Dr. Emilie Stack NEUT # 3.5 103/ul Normal 1.4-6.5 [facility] Comment on above: Performed By: #### C MP, BNP, YESI #### [facility] [address] [place] [address] Dr. Emilie Stack Neutrophils/100 WBC (Bld) 59.2 % Normal 43.0-75.0 [facility] Comment on above: Performed By: #### C MP, BNP, YESI #### [facility] [address] [address] [address] Emilie Stack Platelet mean volume (Bld) [Entitic vol] 8.7 fL Critically low 9.5-13.5 [facility] Comment on above: Performed By: #### C MP, BNP, YESI #### [facility] [address] [address] [address] Emilie Stack PLT 320 103/ul Normal 150-450 [facility] Comment on above: Performed By: #### C MP, BNP, YESI #### [facility] [address] [place] [address] Dr. Emilie Stack RBC 5.05 106/ul Normal 4.70-6.10 [facility] Comment on above: Performed By: #### C MP, BNP, YESI #### [facility] [address] [place] [address] Dr. Emilie Stack WBC 5.9 103/ul Normal 4.0-11.0 [facility] Comment on above: Performed By: #### C MP, BNP, YESI #### [facility] [address] [address] [address] Emilie Stack CULTURE BLOODon 06-15-2022 Microscopic examination of blood, culture Culture Observations: NO GROWTH AT 5 DAYS. Normal [facility] Comment on above: Performed By: #### T ROSSY CMP, BNP #### [facility] [address] [place] [address] Dr. Emilie Stack Microscopic examination of blood, culture Culture Observations: NO GROWTH AT 5 DAYS. Normal [facility] Comment on above: Performed By: #### T ROSSY, CMP, BNP #### [facility] [address] [place] [address] Dr. Emilie Stack CULTURE SPUTUMon 06-15-2022 CULTURE SPUTUM Culture Observations : Moraxella Catarrhalis is Beta Lactmase Positive Culture Observations: Normal respiratory tano also seen Isolate 1 Moraxella (Branhamella) catarrhalis Heavy growth of Normal [facility] Comment on above: Performed By: #### T ROSSY CMP, BNP #### [facility] [address] [place] [address] Dr. Emilie Stack Covid-19 PCR ([facility])on 05-27 SARS-CoV-2 (COVID-19) RNA [place]+probe Ql (Unsp spec) Not detected Normal NOT DETECTED [facility] Comment on above: Result Comment: When [...] for this test is supported by the Mail Room Clerk of Health and Human Service's declaration that [...] By: #### T ROSSY, CMP, BNP #### [facility] [address] [place] [address] Dr. Emilie Stack PROF 14(COMP METB)on 022 Albumin [Mass/Vol] 3.7 g/dL Normal 3.4-5.0 [facility] Comment on above: Performed By: #### C MP, BNP, YESI #### [facility] [address] [place] [address] Dr. Emilie Stack Albumin/Globulin [Mass ratio] 1.0 {ratio} Normal [facility] Comment on above: Performed By: #### C MP, BNP, YESI #### [facility] [address] [place] [address] Dr. Emilie Stack ALP [Catalytic activity/Vol] 154 U/L Critically high 46-116 [facility] Comment on above: Performed By: #### C MP, BNP, YESI #### [facility] [address] [place] [address] Dr. Emilie Stack ALT [Catalytic activity/Vol] 24 U/L Normal 16-63 [facility] Comment on above: Performed By: #### C MP, BNP, YESI #### [facility] [address] [place] [address] Dr. Emilie Stack Anion gap [Moles/Vol] 13.0 mmol/L Normal [facility] Comment on above: Performed By: #### C MP, BNP, YESI #### [facility] [address] [place] [address] Dr. Emilie Stack AST [Catalytic activity/Vol] 17 U/L Normal 15-37 [facility] Comment on above: Performed By: #### C MP, BNP, YESI #### [facility] [address] [place] [address] Dr. Emilie Stack Bilirubin [Mass/Vol] 0.3 mg/dL Normal 0.2-1.0 [facility] Comment on above: Performed By: #### C MP, BNP, YESI #### [facility] [address] [place] [address] Dr. Emilie Stack Calcium [Mass/Vol] 8.6 mg/dL Normal 8.5-10.1 [facility] Comment on above: Performed By: #### C MP, BNP, YESI #### [facility] [address] [place] [address] Dr. Emilie Stack Chloride [Moles/Vol] 104 mmol/L Normal 98-107 [facility] Comment on above: Performed By: #### C MP, BNP, YESI #### [facility] [address] [place] [address] Dr. Emilie Stack CO2 [Moles/Vol] 24.9 mmol/L Normal 21.0-32.0 [facility] Comment on above: Performed By: #### C MP, BNP, YESI #### [facility] [address] [place] [address] Dr. Emilie Stack Creatinine [Mass/Vol] 1.10 mg/dL Normal 0.70-1.30 [facility] Comment on above: Performed By: #### C MP, BNP, YESI #### [facility] [address] [address] [address] Emilie Stack EGFR-AF JAPANESE >60 Normal >=60 [facility] Comment on above: Performed By: #### C MP, BNP, YESI #### [facility] [address] [address] [address] Emilie Stack EGFR-NON AF JAPANESE >60 Normal >=60 [facility] Comment on above: Performed By: #### C MP, BNP, YESI #### [facility] [address] [address] [address] Emilie Stack Globulin (S) [Mass/Vol] 3.6 g/dL Normal [facility] Comment on above: Performed By: #### C MP, BNP, YESI #### [facility] [address] [place] [address] Dr. Emilie Stack Glucose [Mass/Vol] 107 mg/dL Critically high 74-106 [facility] Comment on above: Performed By: #### C MP, BNP, YESI #### [facility] [address] [address] [address] Emilie Stack Potassium [Moles/Vol] 3.9 mmol/L Normal 3.5-5.1 [facility] Comment on above: Performed By: #### C MP, BNP, YESI #### [facility] [address] [address] [address] Emilie Stack Protein [Mass/Vol] 7.3 g/dL Normal 6.4-8.2 [facility] Comment on above: Performed By: #### C MP, BNP, YESI #### [facility] [address] [address] [address] Emilie Stack Sodium [Moles/Vol] 138 mmol/L Normal 136-145 [facility] Comment on above: Performed By: #### C MP, BNP, YESI #### [facility] [address] [address] [address] Emilie Stack Urea nitrogen [Mass/Vol] 18.0 mg/dL Normal 7.0-18.0 [facility] Comment on above: Performed By: #### C MP, BNP, YESI #### [facility] [address] [address] [address] Emilie Stack Urea nitrogen/Creatinine [Mass ratio] 16.4 mg/mg Normal [facility] Comment on above: Performed By: #### C MP, BNP, YESI #### [facility] [address] [address] [address] Emilie Stack SPUTUM GRAM STAINon 06-15-20 COMMENTS Normal [facility] Comment on above: Performed By: #### T ROSSY, CMP, BNP #### [facility] [address] [address] [address] Emilie Stack DIPHTHEROIDS Normal [facility] Comment on above: Performed By: #### T ROSSY, CMP, BNP #### [facility] [address] [address] [address] Emilie Stack EPITHELIALS <25 Normal [facility] Comment on above: Performed By: #### T ROSSY, CMP, BNP #### [facility] [address] [address] [address] Emilie Stack FUNGAL ELEMENTS Normal [facility] Comment on above: Performed By: #### T ROSSY, CMP, BNP #### [facility] [address] [address] [address] Emilie JARAMILLO NEG BACILLI Normal [facility] Comment on above: Performed By: #### T ROSSY, CMP, BNP #### [facility] [address] [address] [address] Emilie JARAMILLO NEG DIPPLOCOCCI MANY Normal [facility] Comment on above: Performed By: #### T ROSSY, CMP, BNP #### [facility] [address] [address] [address] Emilie JARAMILLO POS BACILLI Normal [facility] Comment on above: Performed By: #### T ROSSY, CMP, BNP #### [facility] [address] [address] [address] Emilie Stack GRAM POSITIVE COCCI FEW Normal [facility] Comment on above: Performed By: #### T ROSSY, CMP, BNP #### [facility] [address] [place] [address] Dr. Emilie Stack WBC (Bld) [#/Vol] 10*3/uL Normal [facility] Comment on above: Performed By: #### T ROSSY, CMP, BNP #### [facility] [address] [place] [address] Dr. Emilie Stack T4on 06-15-2022 T4 [Mass/Vol] 8.10 ug/dL Normal 4.50-12.10 [facility] Comment on above: Performed By: #### C MP, BNP, YESI #### [facility] [address] [place] [address] Dr. Emilie Stack TSHon 06-15-2022 TSH 1.611 uIU/mL Normal 0.358-3.740 [facility] Comment on above: Performed By: #### C MP, BNP, YESI #### [facility] [address] [place] [address] Dr. Emilie Stack UA RANDOM W/MICROSCOPICon BACTERIA NONE SEEN Normal NONE SEEN [facility] Comment on above: Performed By: #### T ROSSY, CMP, BNP #### [facility] [address] [place] [address] Dr. Emilie Stack Bilirubin Ql (U) Negative Normal NEGATIVE [facility] Comment on above: Performed By: #### T ROSSY, CMP, BNP #### [facility] [address] [place] [address] Dr. Emilie Stack CAST NONE SEEN Normal NONE SEEN [facility] Comment on above: Performed By: #### T ROSSY, CMP, BNP #### [facility] [address] [place] [address] Dr. Emilie Stack Clarity (U) CLEAR Normal CLEAR [facility] Comment on above: Performed By: #### T ROSSY, CMP, BNP #### [facility] [address] [place] [address] Dr. Emilie Stack Color (U) LT. YELLOW Normal YELLOW [facility] Comment on above: Performed By: #### T ROSSY, CMP, BNP #### [facility] [address] [address] [address] Emilie Stack Crystals LM Nom (Urine sed) NONE SEEN Normal NONE SEEN [facility] Comment on above: Performed By: #### T ROSSY, CMP, BNP #### [facility] [address] [address] [address] Emilie Stack Epithelial cells LM Ql (Urine sed) RARE Normal NONE SEEN /RARE [facility] Comment on above: Performed By: #### T ROSSY, CMP, BNP #### [facility] [address] [place] [address] Dr. Emilie Stack Glucose Ql (U) Negative Normal NEGATIVE [facility] Comment on above: Performed By: #### T ROSSY, CMP, BNP #### [facility] [address] [place] [address] Dr. Emilie Stack Hemoglobin Ql (U) TRACE-INTACT Abnormal NEGATIVE [facility] Comment on above: Performed By: #### T ROSSY, CMP, BNP #### [facility] [address] [address] [address] Emilie Stack Ketones Ql (U) Negative Normal NEGATIVE [facility] Comment on above: Performed By: #### T ROSSY CMP, BNP #### [facility] [address] [address] [address] Emilie Stack LEUKOCYTES Negative Normal NEGATIVE [facility] Comment on above: Performed By: #### T ROSSY, CMP, BNP #### [facility] [address] [address] [address] Emilie Stack MUCOUS SMALL Abnormal NONE SEEN [facility] Comment on above: Performed By: #### T ROSSY, CMP, BNP #### [facility] [address] [place] [address] Dr. Emilie Stack Nitrite Ql (U) Negative Normal NEGATIVE [facility] Comment on above: Performed By: #### T ROSSY, CMP, BNP #### [facility] [address] [address] [address] Emilie Stack pH (U) 5.5 [pH] Normal 5-9 [facility] Comment on above: Performed By: #### Patience BLAIR CMP, BNP #### [facility] [address] [address] [address] Emilie Stack RBC NONE SEEN Abnormal 0-2 [facility] Comment on above: Performed By: #### Pateince BLAIR CMP, BNP #### [facility] [address] [address] [address] Emilie Stack SPEC GRAVITY 1.025 Normal 1.005-<=1.[address] [facility] Comment on above: Performed By: #### Patience BLAIR CMP, BNP #### [facility] [address] [address] [address] Emilie Stack UA PROTEIN Negative Normal NEGATIVE/ TRACE [facility] Comment on above: Performed By: #### Patience BLAIR CMP, BNP #### [facility] [address] [address] [address] Emilie Stack Urobilinogen Qn (U) 0.2 {Jose Guadalupe'U}/dL Normal 0.2 - 1. 0 [facility] Comment on above: Performed By: #### Patience BLAIR CMP, BNP #### [facility] [address] [place] [address] Dr. Emilie Stack WBC NONE SEEN Normal NONE SEEN [facility] Comment on above: Performed By: #### Patience BLAIR CMP, BNP #### [facility] [address] [address] [address] Emilie Stack XR CHEST 2 Von [...] CORRINE ROMEO Date: 2022-06-15 13:36 Normal [facility] US Abdomen RUQon 10-21-2021 IMPRESSION: No [...] gallstones No free fluid Small right kidney. [facility] Radiology Study observation (narrative) [facility] US Abdomen RUQOrdered By: Matt Francisco on 10-21-2021 [facility] Work Phone: XR Chest PA and [...] COPD. No acute infiltrate or consolidation seen. [facility] Radiology Study observation (narrative) [facility] XR Chest PA and LateralOrder ed By: Rafal Slater on 09-29-2021 [facility] Work Phone: C REACTIVE PROTEINon 022 CRP [Mass/Vol] 42.1 mg/L High 0 - 10.0 MG/L [facility] CBC, EDIF, PLATELETon 2021 ABSOLUTE BASOPHIL COUNT 0.0 10*3/uL 0.0 - 0.2 10*3/uL [facility] Basophils/100 WBC (Bld) 0.2 % 0.0 - 2.0 % [facility] Differential cell count method Nom (Bld) AUTO DIFF % [facility] Eosinophils (Bld) [#/Vol] 0.00 10*3/uL 0.0 - 0.7 10*3/uL [facility] Eosinophils/100 WBC (Bld) 0.1 % 0.0 - 11.0 % [facility] Erythrocyte distribution width (RBC) [Ratio] 13.5 % 11.5 - 14.5 % [facility] Hematocrit (Bld) [Volume fraction] 41.0 % Low 42.0 - 52.0 % [facility] Hemoglobin (Bld) [Mass/Vol] 14.3 g/dL [facility] Interpretation and review of laboratory results Abnormal [facility] Lymphocytes (Bld) [#/Vol] 0.40 10*3/uL Low 1.2 - 3.4 10*3/uL [facility] Lymphocytes/100 WBC (Bld) 16.0 % Low 20.0 - 55.0 % [facility] MCH (RBC) [Entitic mass] 32.1 pg 26.0 - 35.0 PG [facility] MCHC (RBC) [Mass/Vol] 34.8 g/dL [facility] MCV (RBC) [Entitic vol] 92.1 fL [facility] Monocytes (Bld) [#/Vol] 0.1 10*3/uL 0.0 - 0.7 10*3/uL [facility] Monocytes/100 WBC (Bld) 4.4 % 0.0 - 10.0 % [facility] Neutrophils (Bld) [#/Vol] 2.2 10*3/uL 1.4 - 6.5 10*3/uL [facility] Neutrophils/100 WBC (Bld) 79.3 % High 37.0 - 75.0 % [facility] Platelet mean volume (Bld) [Entitic vol] 8.8 fL [facility] Platelets (Bld) [#/Vol] 230 10*3/uL 130.0 - 400.0 10*3/uL [facility] RBC (Bld) [#/Vol] 4.45 10*6/uL 4.0 - 6.1 10*6/uL [facility] WBC (Bld) [#/Vol] 2.8 10*3/uL Low 3.6 - 11.0 10*3/uL [facility] HEPATIC FUNCTION PANELon Albumin [Mass/Vol] 3.0 g/dL Low [facility] ALP [Catalytic activity/Vol] 78 U/L [facility] ALT [Catalytic activity/Vol] 26 U/L [facility] AST [Catalytic activity/Vol] 25 U/L [facility] Bilirubin [Mass/Vol] 0.7 mg/dL [facility] Bilirubin.direct [Mass/Vol] 0.1 mg/dL [facility] Protein [Mass/Vol] 6.7 g/dL [facility] MAGNESIUMon 08-02-2021 Magnesium [Mass/Vol] 2.2 mg/dL [facility] No Panel Informationon 08-02 Interpretation and review of laboratory results Abnormal [facility] PROTIME-INRon 08-02-2021 INR Coag (PPP) [Relative time] 1.24 {INR} High [facility] Comment on above: 2.0-3.0 THERAPEUTIC RANGE 2.5-3.5 MECHANICAL VALVE RANGE Interpretation and review of laboratory results Abnormal [facility] PT Coag (PPP) [Time] 15.7 s High [facility] RENAL FUNCTION PANELon 08-02 Albumin [Mass/Vol] 3.0 G/dl Low 3.5 - 5.0 G/dl [facility] Calcium [Mass/Vol] 8.5 mg/dL [facility] Chloride [Moles/Vol] 104 mmol/L [facility] CO2 [Moles/Vol] 20 mmol/L Low [facility] Creatinine [Mass/Vol] 0.76 mg/dL [facility] GFR COMMENT Average GFR for 70+ years old = 75. [facility] Comment on above: Chronic Kidney disea se, GFR = <60. Kidney failure, GFR = <15. The GFR estimate is not adjusted for extreme body surface area or acute process, nor has it been validated for women or ethnic groups other than and . GFR/1.73 sq M.predicted among blacks MDRD (S/P/Bld) [Vol rate/Area] 130 mL/min/{1.73_m2} ml/min/1.73sq .m [facility] GFR/1.73 sq M.predicted among non-blacks MDRD (S/P/Bld) [Vol rate/Area] 108 mL/min/{1.73_m2} ml/min/1.73sq .m [facility] Glucose post fast [Mass/Vol] 138 mg/dL High [facility] Comment on above: NORMAL <100 mg/dL PREDIABETES 101-126 mg/dL DIABETES 126 mg/dL or higher Interpretation and review of laboratory results Abnormal [facility] Phosphate [Mass/Vol] 2.6 mg/dL [facility] Potassium [Moles/Vol] 3.9 mmol/L [facility] Sodium [Moles/Vol] 136 mmol/L [facility] Urea nitrogen [Mass/Vol] 12 mg/dL [facility] SEDIMENTATION RATE, AUTOMATE Don 08-02-2021 ESR (Bld) [Velocity] 31 mm/h High [facility] Interpretation and review of laboratory results Abnormal [facility] C REACTIVE PROTEINon 02-06-2 022 CRP [Mass/Vol] 55.8 mg/L High 0 - 10.0 MG/L [facility] CBC, EDIF, PLATELETon 2021 Differential cell count method Nom (Bld) MANUAL DIFF % [facility] Erythrocyte distribution width (RBC) [Ratio] 13.4 % 11.5 - 14.5 % [facility] Hematocrit (Bld) [Volume fraction] 37.8 % Low 42.0 - 52.0 % [facility] Hemoglobin (Bld) [Mass/Vol] 13.2 g/dL Low [facility] Immature granulocytes/100 WBC (Bld) 1 % 0.0 - 2.0 % [facility] Interpretation and review of laboratory results Abnormal [facility] Lymphocytes/100 WBC (Bld) 25 % 20.0 - 55.0 % [facility] MCH (RBC) [Entitic mass] 31.9 pg 26.0 - 35.0 PG [facility] MCHC (RBC) [Mass/Vol] 34.9 g/dL [facility] MCV (RBC) [Entitic vol] 91.6 fL [facility] Monocytes/100 WBC (Bld) 28 % High 0.0 - 10.0 % [facility] Morphology Elvin (Bld) [Interp] NORMAL [facility] Neutrophils/100 WBC (Bld) 46 % 37.0 - 75.0 % [facility] Platelet mean volume (Bld) [Entitic vol] 8.5 fL [facility] Platelet morphology finding Nom (Bld) ADEQUATE [facility] Platelets (Bld) [#/Vol] 189 10*3/uL 130.0 - 400.0 10*3/uL [facility] RBC (Bld) [#/Vol] 4.12 10*6/uL 4.0 - 6.1 10*6/uL [facility] WBC (Bld) [#/Vol] 3.2 10*3/uL Low 3.6 - 11.0 10*3/uL [facility] WBC MORPHOLOGY STATUS VACUOLES [facility] HEPATIC FUNCTION PANELon Albumin [Mass/Vol] 2.7 g/dL Low [facility] ALP [Catalytic activity/Vol] 73 U/L [facility] ALT [Catalytic activity/Vol] 22 U/L [facility] AST [Catalytic activity/Vol] 24 U/L [facility] Bilirubin [Mass/Vol] 0.5 mg/dL [facility] Bilirubin.direct [Mass/Vol] 0.1 mg/dL [facility] Protein [Mass/Vol] 5.9 g/dL Low [facility] AGon 02- L. pneumophila 1 Ag IA Ql (U) Negative NEGATIVE [facility] MAGNESIUMon 08-01-2021 Magnesium [Mass/Vol] 1.8 mg/dL [facility] No Panel Informationon 08-01 [facility] Interpretation and review of laboratory results Abnormal [facility] PROTIME-INRon 08-01-2021 INR Coag (PPP) [Relative time] 1.40 {INR} High [facility] Comment on above: 2.0-3.0 THERAPEUTIC RANGE 2.5-3.5 MECHANICAL VALVE RANGE Interpretation and review of laboratory results Abnormal [facility] PT Coag (PPP) [Time] 17.3 s High [facility] RENAL FUNCTION PANELon 08-01 Albumin [Mass/Vol] 2.7 G/dl Low 3.5 - 5.0 G/dl [facility] Calcium [Mass/Vol] 8.0 mg/dL Low [facility] Chloride [Moles/Vol] 105 mmol/L [facility] CO2 [Moles/Vol] 22 mmol/L [facility] Creatinine [Mass/Vol] 0.96 mg/dL [facility] GFR COMMENT Average GFR for 70+ years old = 75. [facility] Comment on above: Chronic Kidney disea se, GFR = <60. Kidney failure, GFR = <15. The GFR estimate is not adjusted for extreme body surface area or acute process, nor has it been validated for women or ethnic groups other than and . GFR/1.73 sq M.predicted among blacks MDRD (S/P/Bld) [Vol rate/Area] 100 mL/min/{1.73_m2} ml/min/1.73sq .m [facility] GFR/1.73 sq M.predicted among non-blacks MDRD (S/P/Bld) [Vol rate/Area] 82 mL/min/{1.73_m2} ml/min/1.73sq .m [facility] Glucose post fast [Mass/Vol] 104 mg/dL High [facility] Comment on above: NORMAL <100 mg/dL PREDIABETES 101-126 mg/dL DIABETES 126 mg/dL or higher Interpretation and review of laboratory results Abnormal [facility] Phosphate [Mass/Vol] 2.0 mg/dL Low [facility] Potassium [Moles/Vol] 3.5 mmol/L [facility] Sodium [Moles/Vol] 136 mmol/L [facility] Urea nitrogen [Mass/Vol] 12 mg/dL [facility] SEDIMENTATION RATE, AUTOMATE Don 08-01-2021 ESR (Bld) [Velocity] 21 mm/h High [facility] Interpretation and review of laboratory results Abnormal [facility] STREP PNEUMONIAE ANTIGEN, UR INEon 08-01-2021 S. pneumoniae Ag Ql (U) Negative NEGATIVE [facility] US DUPLEX EXTREMITY DVT BILA TERALon [...] the lower extremity veins on either side. [facility] C REACTIVE PROTEINon 022 CRP [Mass/Vol] 60.2 mg/L High 0 - 10.0 MG/L [facility] CBC, EDIF, PLATELETon 2021 ABSOLUTE BASOPHIL COUNT 0.0 10*3/uL 0.0 - 0.2 10*3/uL [facility] Basophils/100 WBC (Bld) 0.3 % 0.0 - 2.0 % [facility] Differential cell count method Nom (Bld) AUTO DIFF % [facility] Eosinophils (Bld) [#/Vol] 0.00 10*3/uL 0.0 - 0.7 10*3/uL [facility] Eosinophils/100 WBC (Bld) 0.2 % 0.0 - 11.0 % [facility] Erythrocyte distribution width (RBC) [Ratio] 13.2 % 11.5 - 14.5 % [facility] Hematocrit (Bld) [Volume fraction] 43.0 % 42.0 - 52.0 % [facility] Hemoglobin (Bld) [Mass/Vol] 14.9 g/dL [facility] Interpretation and review of laboratory results Abnormal [facility] Lymphocytes (Bld) [#/Vol] 0.50 10*3/uL Low 1.2 - 3.4 10*3/uL [facility] Lymphocytes/100 WBC (Bld) 11.2 % Low 20.0 - 55.0 % [facility] MCH (RBC) [Entitic mass] 31.5 pg 26.0 - 35.0 PG [facility] MCHC (RBC) [Mass/Vol] 34.7 g/dL [facility] MCV (RBC) [Entitic vol] 90.9 fL [facility] Monocytes (Bld) [#/Vol] 0.5 10*3/uL 0.0 - 0.7 10*3/uL [facility] Monocytes/100 WBC (Bld) 11.3 % High 0.0 - 10.0 % [facility] Neutrophils (Bld) [#/Vol] 3.7 10*3/uL 1.4 - 6.5 10*3/uL [facility] Neutrophils/100 WBC (Bld) 77.0 % High 37.0 - 75.0 % [facility] Platelet mean volume (Bld) [Entitic vol] 8.1 fL [facility] Platelets (Bld) [#/Vol] 188 10*3/uL 130.0 - 400.0 10*3/uL [facility] RBC (Bld) [#/Vol] 4.73 10*6/uL 4.0 - 6.1 10*6/uL [facility] WBC (Bld) [#/Vol] 4.8 10*3/uL 3.6 - 11.0 10*3/uL [facility] COMPREHENSIVE METABOLIC PANE Karri 07-31-2021 Albumin [Mass/Vol] 3.4 G/dl Low 3.5 - 5.0 G/dl [facility] Albumin/Globulin [Mass ratio] 0.9 {ratio} Low [facility] ALP [Catalytic activity/Vol] 96 U/L [facility] ALT [Catalytic activity/Vol] 28 U/L [facility] AST [Catalytic activity/Vol] 30 U/L [facility] Bilirubin [Mass/Vol] 0.6 mg/dL [facility] Calcium [Mass/Vol] 8.6 mg/dL [facility] Chloride [Moles/Vol] 99 mmol/L [facility] CO2 [Moles/Vol] 22 mmol/L [facility] Creatinine [Mass/Vol] 1.00 mg/dL [facility] GFR COMMENT Average GFR for 70+ years old = 75. [facility] Comment on above: Chronic Kidney disea se, GFR = <60. Kidney failure, GFR = <15. The GFR estimate is not adjusted for extreme body surface area or acute process, nor has it been validated for women or ethnic groups other than and . GFR/1.73 sq M.predicted among blacks MDRD (S/P/Bld) [Vol rate/Area] 95 mL/min/{1.73_m2} ml/min/1.73sq .m [facility] GFR/1.73 sq M.predicted among non-blacks MDRD (S/P/Bld) [Vol rate/Area] 79 mL/min/{1.73_m2} ml/min/1.73sq .m [facility] Glucose post fast [Mass/Vol] 103 mg/dL High [facility] Comment on above: NORMAL <100 mg/dL PREDIABETES 101-126 mg/dL DIABETES 126 mg/dL or higher Potassium [Moles/Vol] 3.4 mmol/L Low [facility] Protein [Mass/Vol] 7.4 g/dL [facility] Sodium [Moles/Vol] 135 mmol/L Low [facility] Urea nitrogen [Mass/Vol] 12 mg/dL [facility] CT PE STUDYon 07-31-2021 IMPRESSION: 1. [...] the liver and left kidney, probably cysts. [facility] Radiology Study observation (narrative) [facility] CT PE STUDYOrdered By: Martin Rice on 07-31-2021 [facility] Work Phone: D-DIMER,QUANTITATIVEon 07-31 Fibrin D-dimer FEU (PPP) [Mass/Vol] 1.95 Critically high <0.50 mg/L FEU [facility] Comment on above: If result is greater than the cutoff value of 0.50 mg/L then the potential for PE or DVT exists. Other conditions exist which may cause a falsely elevated level. Please correlate clinically, including radiological findings and other clinical parameters. Result called to read back by: Kareen COSBY 07/31/2021 @ 12:20 by PMS Interpretation and review of laboratory results Abnormal [facility] ECG (SCANNED)Ordered By: Mirlande Doherty on 07-31-2021 [facility] INFLUENZA A AND B, PCRon FLUAV and FLUBV Ag IF Nom (Unsp spec) Negative NEGATIVE [facility] FLUBV Ag IA Ql (Unsp spec) Negative NEGATIVE [facility] Comment on above: TESTING PERFORMED BY [place] [facility] NOVEL CORONAVIRUS LAB 1 - NA SOPHARYNGEALon 07-31-2021 NARRATIVE -1 This test was performed using isothermal [place] and has been approved as Emergency Use Authorization (EUA) for the qualitative detection [id number] nucleic acid. [facility] SARS-CoV-2 (COVID-19) RNA [place]+probe Ql (Unsp spec) Not detected NOT DETECTED [facility] Comment on above: Negative results do [...] patient is critically ill or clinically deteriorating. [facility] No Panel Informationon 07-31 Interpretation and review of laboratory results Abnormal [facility] PROTIME-INRon 07-31-2021 INR Coag (PPP) [Relative time] 1.17 {INR} High [facility] Comment on above: 2.0-3.0 THERAPEUTIC RANGE 2.5-3.5 MECHANICAL VALVE RANGE Interpretation and review of laboratory results Abnormal [facility] PT Coag (PPP) [Time] 15.[address] [facility] SCREEN: MRSA ONLY, NARES (IS OLATION SCREEN)on 07-31-2021 MRSA isol Org specific cx Ql (Nose) Not detected NOT DETECTED [facility] STAPHYOCOCCUS AUREUS BY PCR Not detected NOT DETECTED [facility] SEDIMENTATION RATE, AUTOMATE Don 07-31-2021 ESR (Bld) [Velocity] 44 mm/h [facility] Interpretation and review of laboratory results Abnormal [facility] TROPONIN I, HIGH SENSITIVITY on 07-31-2021 TROPONIN I, HIGH SENSITIVITY 16 pg/mL 0 - 20 pg/mL [facility] Comment on above: Indeterminant: >12 to 100 pg/mL female >20 to 100 pg/mL male Indicative of myocardial injury. Serial sampling is recommended, a change of greater than or equal to 20 pg/mL is indicative of acute coronary syndrome. [facility] TROPONIN I, HIGH SENSITIVITY 8 pg/mL 0 - 20 pg/mL [facility] Comment on above: Indeterminant: >12 to 100 pg/mL female >20 to 100 pg/mL male Indicative of myocardial injury. Serial sampling is recommended, a change of greater than or equal to 20 pg/mL is indicative of acute coronary syndrome. [facility] US DUPLEX EXTREMITY DVT BILA TERALon 07-31-2021 Radiology Study observation (narrative) [facility] VITAMIN D (25-HYDROXY,TOTAL) on 07-31-2021 25-hydroxyvitamin D [Mass/Vol] 15.3 Low >30 NG/ML [facility] Comment on above: DEFICIENT <20 NG/ML INSUFFICIENT 20-<30 NG/ML SUFFICIENT 30-100 NG/ML POTENTIAL TOXICITY >100 NG/ML Interpretation and review of laboratory results Abnormal [facility] Vital Signs Date Time Vital Sign Value Performing Clinician Facility 04-06-2024 16:31-0400 Diastolic blood pressure 61 mm[Hg] Marisa Martinez MD Work Phone: [facility] 04-06-2024 16:31-0400 Heart rate 60 /min Marisa Martinez MD Work Phone: [facility] 04-06-2024 16:31-0400 Respiratory rate 18 /min Marisa Martinez MD Work Phone: [facility] 04-06-2024 16:31-0400 SaO2% (BldA) [Mass fraction] 98 % Marisa Martinez MD Work Phone: [facility] 04-06-2024 16:31-0400 Systolic blood pressure 108 mm[Hg] Marisa Martinez MD Work Phone: [facility] 04-06-2024 13:42-0400 Body height 182.9 cm Marisa Martinez MD Work Phone: [facility] 04-06-2024 13:42-0400 Body mass index (BMI) [Ratio] 27.12 kg/m2 Marisa Martinez MD Work Phone: [facility] 04-06-2024 13:42-0400 Body temperature 98.49 [degF] Marisa Martinez MD Work Phone: [facility] 04-06-2024 13:42-0400 Body weight 90.72 kg Marisa Martinez MD Work Phone: [facility] 12-21-2023 14:00-0400 Diastolic blood pressure 75 mm[Hg] Lopez Dubose MD Work Phone: [facility] 12-21-2023 14:00-0400 Heart rate 71 /min Lopez Dubose MD Work Phone: [facility] 12-21-2023 14:00-0400 Respiratory rate 22 /min Lopez Dubose MD Work Phone: [facility] 12-21-2023 14:00-0400 SaO2% (BldA) [Mass fraction] 93 % Lopez Dubose MD Work Phone: [facility] 12-21-2023 14:00-0400 Systolic blood pressure 134 mm[Hg] Lopez Dubose MD Work Phone: [facility] 12-21-2023 00:35-0400 Body height 182.9 cm Lopez Dubose MD Work Phone: [facility] 12-21-2023 00:35-0400 Body mass index (BMI) [Ratio] 26.11 kg/m2 Lpoez Duboes MD Work Phone: [facility] 12-21-2023 00:35-0400 Body weight 87.32 kg Lopez Dubose MD Work Phone: [facility] Comment on above: bed scale room 2 12-21-2023 00:34-0400 Body temperature 97.81 [degF] Lopez Dubose MD Work Phone: [facility] 12-07-2023 04:07-0400 Diastolic blood pressure 72 mm[Hg] Tonny Alves MD Work Phone: [facility] 12-07-2023 04:07-0400 Heart rate 78 /min Tonny Alves MD Work Phone: [facility] 12-07-2023 04:07-0400 Respiratory rate 18 /min Tonny Alves MD Work Phone: [facility] 12-07-2023 04:07-0400 SaO2% (BldA) [Mass fraction] 93 % Tonny Alves MD Work Phone: [facility] 12-07-2023 04:07-0400 Systolic blood pressure 110 mm[Hg] Tonny Alves MD Work Phone: [facility] 12-07-2023 00:46-0400 Body mass index (BMI) [Ratio] 26.22 kg/m2 Tonny Alves MD Work Phone: [facility] 12-07-2023 00:46-0400 Body weight 87.68 kg Tonny Alves MD Work Phone: [facility] 12-07-2023 00:45-0400 Body temperature 98.1 [degF] Tonny Alves MD Work Phone: [facility] 08-23-2023 20:26-0500 Diastolic blood pressure 60 mm[Hg] Marisa Martinez MD Work Phone: [facility] 08-23-2023 20:26-0500 Heart rate 82 /min Marisa Martinez MD Work Phone: [facility] 08-23-2023 20:26-0500 Respiratory rate 16 /min Marisa Martinez MD Work Phone: [facility] 08-23-2023 20:26-0500 SaO2% (BldA) [Mass fraction] 94 % Marisa Martinez MD Work Phone: [facility] 08-23-2023 20:26-0500 Systolic blood pressure 137 mm[Hg] Marisa Martinez MD Work Phone: [facility] 08-23-2023 20:10-0500 Body temperature 98.2 [degF] Marisa Martinez MD Work Phone: [facility] 08-23-2023 16:56-0500 Body mass index (BMI) [Ratio] 25.81 kg/m2 Marisa Martinez MD Work Phone: [facility] 08-23-2023 16:56-0500 Body weight 86.32 kg Marisa Martinez MD Work Phone: [facility] 08-02-2021 11:59-0500 Body temperature 97.59 [degF] Kraig Trevino MD Work Phone: [facility] 08-02-2021 11:59-0500 Diastolic blood pressure 67 mm[Hg] Kraig Trevino MD Work Phone: [facility] 08-02-2021 11:59-0500 Heart rate 92 /min Kraig Trevino MD Work Phone: [facility] 08-02-2021 11:59-0500 Respiratory rate 18 /min Kraig Trevino MD Work Phone: [facility] 08-02-2021 11:59-0500 SaO2% (BldA) [Mass fraction] 92 % Kraig Trevino MD Work Phone: [facility] 08-02-2021 11:59-0500 Systolic blood pressure 128 mm[Hg] Kraig Trevino MD Work Phone: [facility] 08-02-2021 04:12-0500 Body mass index (BMI) [Ratio] 27.37 kg/m2 Kraig Trevino MD Work Phone: [facility] 08-02-2021 04:12-0500 Body weight 91.54 kg Kraig Trevino MD Work Phone: [facility] 08-01-2021 10:03-0500 Body height 182.9 cm Kraig Trevino MD Work Phone: [facility] Encounters Encounter Date Encounter Type Care Provider Facility Start: 04-06-2024 End: 04-06-2024 Emergency department patient visit Marisa Martinez MD Work Phone: [facility] Emergency Department Start: 02-01-2024 ambulatory KRANTHI B [facility] Start: 01-23-2024 ambulatory KRANTHI B [facility] Start: 01-23-2024 End: 01-23-2024 Subsequent hospital visit by physician Kranthi Edgar MD Work Phone: [facility] [employer] Comment on above: Arrived Start: 12-27-2023 ambulatory KRANTHI EDGAR [facility] Start: 12-21-2023 End: 12-21-2023 Emergency department patient visit Lopez Dubose MD Work Phone: [facility] Emergency Department Start: 12-07-2023 End: 12-07-2023 Emergency department patient visit Tonny Alves MD Work Phone: [facility] Emergency Department Start: 10-31-2023 ambulatory DEZ RODRIGUEZ [facility] Start: 10-31-2023 End: 10-31-2023 Subsequent hospital visit by physician Dez Rodriguez MD Work Phone: [facility] Nuclear Medicine Comment on above: Arrived Start: 08-23-2023 End: 08-23-2023 Emergency department patient visit Marisa Martinez MD Work Phone: [facility] Emergency Department Start: 05-11-2023 ambulatory DEZ RODRIGUEZ [facility] Start: 05-11-2023 End: 05-11-2023 Subsequent hospital visit by physician Dez Rodriguez MD Work Phone: [facility] CT Scan Comment on above: Arrived Start: 04-28-2023 ambulatory DEZ RODRIGUEZ [facility] Start: 04-10-2023 End: 04-10-2023 Subsequent hospital visit by physician Dez Rodriguez MD Work Phone: [facility] Ultrasound Comment on above: Arrived Start: 11-23-2022 End: 11-23-2022 ambulatory SAMANTHA BUTLER Facility:[facility] Start: 08-11-2022 End: 08-15-2022 Evaluation and management of inpatient DR DEZ RODRIGUEZ . Facility:[facility] Start: 06-15-2022 End: 06-18-[address] DEZ RODRIGUEZ . Facility:[facility] Start: 10-21-2021 End: 10-21-2021 Subsequent hospital visit by physician Dez Rodriguez MD Work Phone: [facility] Ultrasound Comment on above: Arrived Start: 09-29-2021 End: 09-29-2021 Subsequent hospital visit by physician Dez Rodriguez MD Work Phone: [facility] Diagnostic Radiology Comment on above: Arrived Start: 07-31-2021 End: 08-02-2021 Emergency department patient visit Kraig Trevino MD Work Phone: [facility] Med Surg Comment on above: Multifocal pneumonia Start: 09-14-2017 End: 09-15-2017 Ambulatory DEFAULT PHYSICIAN Facility:[facility] Procedures Date Procedure Procedure Detail Performing Clinician Start: 04-06-2024 Assay of troponin quantitative Marisa Martinez MD Work Phone: Start: 04-06-2024 Infectious agent dna /rna influenza 1st 2 types Marisa Martinez MD Work Phone: Start: 04-06-2024 Radiologic exam ches t single view Marisa Martinez MD Work Phone: Start: 04-06-2024 Complete blood count with white cell differential, automated Marisa Martinez MD Work Phone: Start: 04-06-2024 Comprehensive metabolic panel Marisa Martinez MD Work Phone: Start: 01-23-2024 Echo tthrc r-t 2d w/ wom-mode compl spec&colr d Kranthi Edgar MD Work Phone: Start: 01-23-2024 Cardiovascular funct ion eval w/tilt table w/mntr Kranthi Edgar MD Work Phone: Start: 12-21-2023 Complete blood count with white cell differential, automated Lopez Dubose MD Work Phone: Start: 12-21-2023 Creatinine blood Gallo Dubose MD Work Phone: Start: 12-21-2023 Ecg routine ecg w/le ast 12 lds w/i&r Lopez Dubose MD Work Phone: Start: 12-07-2023 Iadna dna/rna rsv am plified probe technique Tonny Alves MD Work Phone: Start: 12-07-2023 Infectious agent dna /rna influenza 1st 2 types Tonny Alves MD Work Phone: Start: 12-07-2023 Radiologic exam ches t single view Tonny Alves MD Work Phone: Start: 12-07-2023 Complete blood count with white cell differential, automated Tonny Alves MD Work Phone: Start: 12-07-2023 Comprehensive metabolic panel Tonny Alves MD Work Phone: Start: 12-07-2023 Ecg routine ecg w/le ast 12 lds w/i&r Tonny Alves MD Work Phone: Start: 10-31-2023 Myocardial spect sin gle study at rest or stress Dez Rodriguez MD Work Phone: Start: 08-23-2023 Ct angiography chest w/contrast/noncontrast Marisa Martinez MD Work Phone: Start: 08-23-2023 Radiologic exam ches t single view Marisa Martinez MD Work Phone: Start: 08-23-2023 Iadna dna/rna rsv am plified probe technique Marisa Martinez MD Work Phone: Start: 08-23-2023 Iadna nos amplified probe tq each organism Marisa Martinez MD Work Phone: Start: 08-23-2023 Quantitative PCR analysis Marisa Martinez MD Work Phone: Start: 08-23-2023 Complete blood count with white cell differential, automated Marisa Martinez MD Work Phone: Start: 08-23-2023 End: 08-23-2023 Comprehensive metabolic panel Marisa street MD Work Phone: Start: 05-11-2023 Ct soft tissue neck w/contrast material Dez Rodriguez MD Work Phone: Start: 04-10-2023 Us soft tissue head & neck real time imge docm Dez Rodriguez MD Work Phone: Start: 10-21-2021 Us abdominal real ti me w/image limited Dez Rodriguez MD Work Phone: Start: 09-29-2021 Radiologic exam chest 2 views Dez Rodriguez MD Work Phone: Start: 08-02-2021 C-reactive protein [facility] sydney Kiko PA-C Work Phone: Start: 08-02-2021 Complete blood count with white cell differential, automated Stanislaus Kiko PA-C Work Phone: Start: 08-02-2021 Renal function panel De kai Kiko PA-C Work Phone: Start: 08-01-2021 Iaad ia mult step me thod nos each organism Stanislaus Kiko PA-C Work Phone: Start: 08-01-2021 C-reactive protein [facility] Kiko PA-C Work Phone: Start: 08-01-2021 Renal function panel De kai Kiko PA-C Work Phone: Start: 07-31-2021 Assay of troponin quantitative Osmin Luna MD Work Phone: Start: 07-31-2021 Dup-scan xtr veins c omplete bilateral study Huan Kiko PA-C Work Phone: Start: 07-31-2021 Cultyp nuc acid amp prb cult/isolate ea orgnism Osmin Luna MD Work Phone: Start: 07-31-2021 25 hydroxy includes fractions if performed Huan Hoover PA-C Work Phone: Start: 07-31-2021 End: 07-31-2021 Culture bacterial blood aerobic w/id isolates John Edwards PA-C Work Phone: Start: 07-31-2021 Electrocardiogram Histo rical Provider Start: 02-05-2022 Ct angiography chest w/contrast/noncontrast John Edwards PA-C Work Phone: Start: 07-31-2021 C-reactive protein Sandrine doris Edwards PA-C Work Phone: Start: 07-31-2021 Comprehensive metabolic panel John Edwards PA-C Work Phone: Start: 07-31-2021 Infectious agent dna /rna influenza 1st 2 types John Edwards PA-C Work Phone: Start: 07-31-2021 Sars-cov-2 detection by dna/rna John Edwards PA-C Work Phone: Plan of Treatment Date Care Activity Detail Author Start: 07-04-2024 End: 07-04-2024 Patient encounter procedure 07/04/2024 1:20 PM EST Office Visit [address] [address] Kranthi Edgar II, MD [address] [place] [address] [facility] Start: 02-25-2024 COVID-19 VACCINE ( season) COVID-19 VACCINE ( season) [facility] Start: 02-25-[address] [facility] Start: 02-01-2024 End: 02-01-2024 Patient encounter procedure 02/01/2024 1:20 PM EDT Office Visit [address] [address] Kranthi Edgar II, MD [address] [place] [address] [facility] Start: 02-24-2023 COVID-19 VACCINE ( season) COVID-19 VACCINE ( season) [facility] Start: 02-24-2023 Influenza vaccination INFLUENZA VACC INE (#1) [facility] Start: 02-24-2022 Influenza vaccination INFLUENZ A VACCINE (Season Ended) [facility] Start: 02-24-2021 Influenza vaccination INFLUENZA VACC INE (#1) [facility] Start: 2015 Abdominal aortic aneurysm screening ABDOMINAL AORTIC ANEURYSM HIGH RISK SCREEN [facility] Start: 2015 Pneumococcal vaccination PNEUMOCOCCAL VACCINE SERIES (1 of 1 - PPSV23) [facility] Start: 2010 RSV VACCINE (1 - 1-d ose 60+ series) RSV VACCINE (1 - 1-dose 60+ series) [facility] Start: 2000 Prostate specific antigen measurement PROSTATE CANCER SCREENING DISCUSSION [facility] Start: 2000 Zoster vaccine hzv l ely for subcutaneous use ZOSTER (SHINGLES) VACCINE (1 of 2) [facility] Start: 1995 Colonoscopy COLORECTAL CAN CER SCREENING DISCUSSION [facility] Start: 1995 Screening for malign ant neoplasm of colon COLORECTAL CANCER SCREENING DISCUSSION [facility] Start: 1990 Fasting lipid profile LIPID SCREENIN G [facility] Start: 1990 Lipid panel LIPID SCREENING [facility] Start: 1969 Third diphtheria, tetanus and acellular pertussis (DTaP) vaccination TDAP (ADULT) [facility] Start: 1968 Tetanus vaccination TETANUS [facility] Start: 1956 Pneumococcal vaccination [facility] Start: 1955 COVID-19 VACCINE (#1) COVID-19 VACCI NE (#1) [facility] Start: 1955 COVID-19 VACCINE (1) COVID-19 VACCIN E (1) [facility] Start: [birth year]-14-1951 COVID-19 VACCINE (#1) COVID-19 VACCI NE (#1) [facility] Start: 1950 Hepatitis C antibody , confirmatory test HEPATITIS C VIRUS SCREENING [facility] Start: 1950 Hepatitis C screening HEPATITI S C VIRUS SCREENING [facility] Start: 1950 Tetanus vaccination TETANUS [facility] Bacteria identified in Blood by Culture [facility] End: 10-31-2023 [employer]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 Routine Dyspnea, unspecified type 1 Occurrences starting 10/31/2023 until 10/31/2023 [facility] Work Phone: Comment on above: 1 Occurrences starti ng 10/31/2023 until 10/31/2023 End: 07-31-2021 Standard ECG ECG ECG STAT One Time for 1 Occurrences starting 07/31/2021 until 07/31/2021 [facility] Comment on above: One Time for 1 Occur rences starting 07/31/2021 until 07/31/2021 End: 08-23-2023 Standard ECG ECG ECG STAT One Time for 1 Occurrences starting 08/23/2023 until 08/23/2023 [facility] Comment on above: One Time for 1 Occur rences starting 08/23/2023 until 08/23/2023 Standard ECG ECG ECG Routine 12/07/2023 12:39 AM EDT [facility] Standard ECG ECG ECG STAT 12:22 AM EDT [facility] End: 04-06-2024 Standard ECG ECG ECG STAT One Time for 1 Occurrences starting 04/06/2024 until 04/06/2024 [facility] Comment on above: One Time for 1 Occur rences starting 04/06/2024 until 04/06/2024 End: 01-23-2024 US.doppler Carotid arteries - bilateral [facility] Work Phone: Comment on above: 1 Occurrences starti ng 01/23/2024 until 01/23/2024 Payers Date Payer Category Payer Medicare [employer] HMO PPO [id number] 2021-Present [address] [place] [address] [id number] 2019 Medicare MEDICARE ANTHEM HMO [place] PPO MEDICARE AN[employer]M HMO OR PPO [id number] 2019-Present [address] [place] [address] [id number] 1959 Medicare [id number] 1950 Unknown [id number] 1950 Unknown [id number] 1950 Unknown [id number] [id number] 1950 Unknown [id number] [id number] 1950 Unknown [id number] [id number] 1950 Unknown [id number] [id number] 1950 Unknown [id number] [id number] 1950 Unknown [id number] [id number] 1950 Unknown [id number] 2.16.840.1.680520.3.579.2.983 1950 Unknown [id number] [id number] 1950 Unknown [id number] 2.16.840.1.035948.3.579.2.983 1950 Unknown [id number] [id number] 1950 Unknown [id number] [id number] 1950 Unknown [id number] [id number] 1950 Unknown [id number] [id number] 1950 Unknown [id number] Unknown Social History Date Type Detail Facility Start: 07-31-2021 End: 08-23-2023 Tobacco smoking status NHIS Smokes tobacco daily [facility] Start: 07-31-2021 End: 08-23-2023 Tobacco use and exposure Smokeless tobacco non-user [facility] Start: 07-31-2021 End: 04-06-2024 Alcohol intake Lifetime non-drinker (finding) [facility] Start: 07-31-2021 History SDOH Alcohol Frequency 1 [facility] Start: 1950 Sex Assigned At Not on file A [facility] Exposure to SARS-CoV -2 (event) Yes [facility] History of tobacco use Cigarette Smoker A [facility] Start: 08-19-2022 End: 04-06-2024 Cigarettes smoked current (pack per day) - Reported 1 [facility] Start: 08-19-2022 End: 04-06-2024 Tobacco use panel [facility] Clinical Notes 07-31-2021 to 04-06-2024 Renetta Jon RN - 04/06/2024 5:04 PM EDTRenetta Jon RN - 04/06/2024 5:04 PM Tyler Anton RN - 04/06/2024 5:00 PM Hilda Martinez MD - 04/06/2024 1:46 PM EDTAttachments Note Date & Type Note Facility 04-06-2024 Emergency department Note Discharge instruction given to the pt and family, reminded to pickle sorter prescription at the pharmacy. Pt and family voice understood. Pt ambulates out of the ED with steady gait [facility] 04-06-2024 Emergency department Note Discharge instruction given to the pt and family, reminded to pickle sorter prescription at the pharmacy. Pt and family voice understood. Pt ambulates out of the ED with steady gait Dr. Martinez at [facility] side. Emergency Department Report [facility] EMERGENCY DEPARTMENT Service Date:.04/06/24 PCP: Dez Rodriguez Chief Complaint: Chief Complaint Patient presents with Fatigue Dizziness Pt reports that for 30 minutes he has been feeling weak, dizzy, shakey and sweaty. He is seeing a winch runner for an afib work up per pt HPI Srini Menon is a 73 y.o. male presents to the ED with chief complaint of felt lightheaded and became nauseous. He states this started approximately 30 minutes prior to arrival. He denies any chest pain. Denies any headache or neck stiffness. Denies any cough. He does have a history of COPD and he was a smoker. Denies any calf pain or swelling. He denies syncope. Denies hemoptysis. Denies any calf pain. He states he was seeing a winch runner as there was some concern that he has intermittent atrial fibrillation. Review of Systems: Review of Systems Review of Systems Constitutional: Negative for fevers or chills Skin: Negative for rash, bruising, itching HENT: Negative for sore throat, earache, stridor Eyes: Negative Cardiovascular: Negative for chest pain, syncope Gastrointestinal: Negative for melena. Positive for nausea and vomiting Respiratory: Positive for COPD Genitourinary: Negative Musculoskeletal: Negative for calf pain or swelling Neurological: Negative for headache. Positive feeling lightheaded Past Medical History: Past Medical History: Diagnosis Date COPD (chronic obstructive pulmonary disease) Past Surgical History: No past surgical history on file. Allergies: Allergies Allergen Reactions Ketorolac Nausea and Vomiting nausea vomiting Ascorbate Hives Large doses per pt Prednisone ALL STEROIDS Other reaction(s): Intolerance Cardiac reaction per pt Medications: Patient's Medications New Prescriptions ONDANSETRON 4 MG TAB DISPERSIBLE TABLET Take 1 tablet by mouth every [address]. [address] on tongue Previous Medications ALBUTEROL (2.5 MG/3ML) 0.083% INHALATION SOLUTION Take 3 mL by nebulization every 6 hours as needed for Shortness of Breath. ALBUTEROL 108 (90 BASE) MCG/ACT AERO SOLN INHALER Inhale 1 puff every 6 hours as needed for Shortness of Breath. MOMETASONE FURO-FORMOTEROL FUM 200-5 MCG/PUFF AEROSOL Inhale 2 puffs every 12 hours. THEOPHYLLINE 300 MG TAB SR 12 HR TAKE 1 TABLET BY MOUTH TWICE DAILY GIVE ON AN EMPTY STOMACH. DO NOT CRUSH OR CHEW Modified Medications No medications on file Discontinued Medications No medications on file Family History: History reviewed. No pertinent family [...] Physical Exam: Physical Exam General: Well-developed well-nourished older male HENT: Head is atraumatic. Face is symmetric. Mucous membranes are hydrated Eyes: Pupils are equal. Extraocular muscles are intact Skin: Warm, dry. No rash. No petechiae or purpuric Abdomen: Soft. No distention, guarding, rebound Respiratory: Clear. No subcostal retractions. Positive rhonchi. No subcostal retraction Heart: Heart tones are regular. Capillary refill is brisk Neurologic: Awake, alert, oriented, answering questions appropriately Lymphatic: No lymphedema or lymphadenopathy Musculoskeletal: Negative Homans sign. No trauma. Moving all extremities well Psychiatric: Cooperative with the examiner Vital Signs During ED Visit Patient Vitals for the past 24 hrs: BP Temp Temp src Pulse Resp SpO2 Height Weight 04/06/24 1631 108/61 -- -- 60 18 98 % -- -- 04/06/24 1555 116/57 -- -- 64 18 96 % -- -- 04/06/24 1459 145/72 -- -- 62 18 95 % -- -- 04/06/24 1436 130/71 -- -- 64 16 95 % -- -- 04/06/24 1407 -- -- -- -- -- 99 % -- -- 04/06/24 1400 -- -- -- 56 -- -- -- -- 04/06/24 1348 -- -- -- -- -- 98 % -- -- 04/06/24 1342 133/70 98.5 F (36.9 C) Oral 60 18 96 % 1.829 m (6') 90.7 kg (200 lb) Orders/Results: Results for orders placed or performed during the hospital encounter of 04/06/24 [facility] 1 - NASOPHARYNGEAL Specimen: NASOPHARYNGEAL; Fluid/Swab Result Value Ref Range SARS COV 2 RNA, QL REAL TIME RT PCR NOT DETECTED NOT DETECTED NARRATIVE -1 This test was performed using isothermal [place] for the qualitative detection of SARS-CoV-2 nucleic acid. TROPONIN I, HIGH SENSITIVITY Result Value Ref Range TROPONIN I, HIGH SENSITIVITY 3 0 - 20 pg/mL CBC, EDIF, PLATELET Result Value Ref Range WBC (WHITE BLOOD COUNT) 8.0 3.6 - 11.0 10*3/uL RBC 5.03 4.0 - 6.1 10*6/uL HEMOGLOBIN (HGB) 15.1 14.0 - 18.0 G/DL HEMATOCRIT (HCT) 45.8 42.0 - 52.0 % MEAN CELL VOLUME 91.1 80.0 - 100.0 FL Mean Cell HGB 30.1 26.0 - 35.0 PG MEAN CELL HGB CONCENTRATION 33.1 27.0 - 37.0 G/DL RBC DISTRIBUTION 14.6 (H) 11.5 - 14.5 % PLATELET COUNT 362 130 - 400 10*3/uL MEAN PLATELET VOLUME 6.7 (L) 7.4 - 11.0 FL DIFFERENTIAL TYPE AUTO DIFF % NEUTROPHILS 68.1 37.0 - 75.0 % LYMPHOCYTE 18.8 (L) 20.0 - 55.0 % MONOCYTE % 8.4 0.0 - 10.0 % EOSINOPHIL % 3.9 0.0 - 11.0 % BASOPHIL % 0.8 0.0 - 2.0 % Absolute Neutrophil Count 5.4 1.4 - 6.5 10*3/uL LYMPHOCYTES, ABSOLUTE 1.5 1.2 - 3.4 10*3/uL MONOCYTES, ABSOLUTE 0.7 0.0 - 0.7 10*3/uL ABSOLUTE EOSINOPHIL COUNT 0.3 0.0 - 0.7 10*3/uL ABSOLUTE BASOPHIL COUNT 0.1 0.0 - 0.2 10*3/uL COMPREHENSIVE METABOLIC PANEL Result Value Ref Range Glucose 117 (H) 70 - 100 MG/DL BUN 15 7 - 20 MG/DL CREATININE SERUM 1.10 0.70 - 1.20 MG/DL SODIUM 137 137 - 145 MMOL/L POTASSIUM 4.3 3.5 - 5.1 MMOL/L CHLORIDE 108 (H) 98 - 107 MMOL/L CALCIUM 9.1 8.4 - 10.2 MG/DL PROTEIN, TOTAL 7.0 6.3 - 8.2 GM/DL Albumin 4.2 3.5 - 5.0 G/dl BILIRUBIN, TOTAL 0.5 0.2 - 1.3 MG/DL AST 22 17 - 59 IU/L ALKALINE PHOSPHATASE 100 38 - 126 IU/L CARBON DIOXIDE (CO2) 27 22 - 30 MMOL/L A/G Ratio 1.5 RATIO ALT 19 <50 IU/L ESTIMATED GFR, NON AMER 70 ml/min/1.73sq.m ESTIMATED GFR, 84 ml/min/1.73sq.m GFR COMMENT Average GFR for 70+ years old = 75. D-DIMER,QUANTITATIVE Result Value Ref Range D-DIMER 0.41 <0.50 g/ml INFLUENZA A AND B, PCR Result Value Ref Range INFLUENZA A NEGATIVE NEGATIVE INFLUENZA B NEGATIVE NEGATIVE TROPONIN I, HIGH SENSITIVITY Result Value Ref Range TROPONIN I, HIGH SENSITIVITY 3 0 - 20 pg/mL Radiographic Imaging XR CHEST PA 1 VIEW Final Result IMPRESSION: No acute cardiopulmonary process. Procedures: Procedures Moderate Sedation Procedure: No ED Summary/MDM EKG interpreted by me shows sinus rhythm rate of 60 beats per minute no STEMI. Pr interval 136 milliseconds when compared to most recent EKGs dated December 27, 2023 I appreciate no significant changes. Patient's blood work was reviewed. He has been resting comfortably. There has been no ectopy on the monitor. He was had a 2nd set troponins which not elevated his troponin level is 3. At this time we will discharge him home have him return if any worsening symptoms. Follow up with his primary provider. I discussed with him about possible causes including dysrhythmia. He states he will follow up with his primary return if any worsening symptoms. Clinical Impression: 1. Weakness 2. Nausea and vomiting, unspecified vomiting type No follow-ups on file. New Prescriptions ONDANSETRON 4 MG TAB DISPERSIBLE TABLET Take 1 tablet by mouth every [address] on tongue Discontinued Medications No medications on file An After Visit Summary was printed and given to the patient with above information. . Marisa Martinez MD 04/06/24 165 documented in this encounter [facility] 04-06-[address] Martinez at [facility] side. [facility] 04-06-2024 Physician Emergency department Note Emergency Department Report [facility] EM[facility] DEPART[facility] Service Date:.04/06/24 PCP: Dez Rodriguez Chief Complaint: Chief Complaint Patient presents with Fatigue Dizziness Pt reports that for 30 minutes he has been feeling weak, dizzy, shakey and sweaty. He is seeing a winch runner for an afib work up per pt HPI Srini Menon is a 73 y.o. male presents to the ED with chief complaint of felt lightheaded and became nauseous. He states this started approximately 30 minutes prior to arrival. He denies any chest pain. Denies any headache or neck stiffness. Denies any cough. He does have a history of COPD and he was a smoker. Denies any calf pain or swelling. He denies syncope. Denies hemoptysis. Denies any calf pain. He states he was seeing a winch runner as there was some concern that he has intermittent atrial fibrillation. Review of Systems: Review of Systems Review of Systems Constitutional: Negative for fevers or chills Skin: Negative for rash, bruising, itching HENT: Negative for sore throat, earache, stridor Eyes: Negative Cardiovascular: Negative for chest pain, syncope Gastrointestinal: Negative for melena. Positive for nausea and vomiting Respiratory: Positive for COPD Genitourinary: Negative Musculoskeletal: Negative for calf pain or swelling Neurological: Negative for headache. Positive feeling lightheaded Past Medical History: Past Medical History: Diagnosis Date COPD (chronic obstructive pulmonary disease) Past Surgical History: No past surgical history on file. Allergies: Allergies Allergen Reactions Ketorolac Nausea and Vomiting nausea vomiting Ascorbate Hives Large doses per pt Prednisone ALL STEROIDS Other reaction(s): Intolerance Cardiac reaction per pt Medications: Patient's Medications New Prescriptions ONDANSETRON 4 MG TAB DISPERSIBLE TABLET Take 1 tablet by mouth every [address]. [address] on tongue Previous Medications ALBUTEROL (2.5 MG/3ML) 0.083% INHALATION SOLUTION Take 3 mL by nebulization every 6 hours as needed for Shortness of Breath. ALBUTEROL 108 (90 BASE) MCG/ACT AERO SOLN INHALER Inhale 1 puff every 6 hours as needed for Shortness of Breath. MOMETASONE FURO-FORMOTEROL FUM 200-5 MCG/PUFF AEROSOL Inhale 2 puffs every 12 hours. THEOPHYLLINE 300 MG TAB SR 12 HR TAKE 1 TABLET BY MOUTH TWICE DAILY GIVE ON AN EMPTY STOMACH. DO NOT CRUSH OR CHEW Modified Medications No medications on file Discontinued Medications No medications on file Family History: History reviewed. No pertinent family [...] Physical Exam: Physical Exam General: Well-developed well-nourished older male HENT: Head is atraumatic. Face is symmetric. Mucous membranes are hydrated Eyes: Pupils are equal. Extraocular muscles are intact Skin: Warm, dry. No rash. No petechiae or purpuric Abdomen: Soft. No distention, guarding, rebound Respiratory: Clear. No subcostal retractions. Positive rhonchi. No subcostal retraction Heart: Heart tones are regular. Capillary refill is brisk Neurologic: Awake, alert, oriented, answering questions appropriately Lymphatic: No lymphedema or lymphadenopathy Musculoskeletal: Negative Homans sign. No trauma. Moving all extremities well Psychiatric: Cooperative with the examiner Vital Signs During ED Visit Patient Vitals for the past 24 hrs: BP Temp Temp src Pulse Resp SpO2 Height Weight 04/06/24 1631 108/61 -- -- 60 18 98 % -- -- 04/06/24 1555 116/57 -- -- 64 18 96 % -- -- 04/06/24 1459 145/72 -- -- 62 18 95 % -- -- 04/06/24 1436 130/71 -- -- 64 16 95 % -- -- 04/06/24 1407 -- -- -- -- -- 99 % -- -- 04/06/24 1400 -- -- -- 56 -- -- -- -- 04/06/24 1348 -- -- -- -- -- 98 % -- -- 04/06/24 1342 133/70 98.5 F (36.9 C) Oral 60 18 96 % 1.829 m (6') 90.7 kg (200 lb) Orders/Results: Results for orders placed or performed during the hospital encounter of 04/06/24 [facility] 1 - NASOPHARYNGEAL Specimen: NASOPHARYNGEAL; Fluid/Swab Result Value Ref Range SARS COV 2 RNA, QL REAL TIME RT PCR NOT DETECTED NOT DETECTED NARRATIVE -1 This test was performed using isothermal [place] for the qualitative detection of SARS-CoV-2 nucleic acid. TROPONIN I, HIGH SENSITIVITY Result Value Ref Range TROPONIN I, HIGH SENSITIVITY 3 0 - 20 pg/mL CBC, EDIF, PLATELET Result Value Ref Range WBC (WHITE BLOOD COUNT) 8.0 3.6 - 11.0 10*3/uL RBC 5.03 4.0 - 6.1 10*6/uL HEMOGLOBIN (HGB) 15.1 14.0 - 18.0 G/DL HEMATOCRIT (HCT) 45.8 42.0 - 52.0 % MEAN CELL VOLUME 91.1 80.0 - 100.0 FL Mean Cell HGB 30.1 26.0 - 35.0 PG MEAN CELL HGB CONCENTRATION 33.1 27.0 - 37.0 G/DL RBC DISTRIBUTION 14.6 (H) 11.5 - 14.5 % PLATELET COUNT 362 130 - 400 10*3/uL MEAN PLATELET VOLUME 6.7 (L) 7.4 - 11.0 FL DIFFERENTIAL TYPE AUTO DIFF % NEUTROPHILS 68.1 37.0 - 75.0 % LYMPHOCYTE 18.8 (L) 20.0 - 55.0 % MONOCYTE % 8.4 0.0 - 10.0 % EOSINOPHIL % 3.9 0.0 - 11.0 % BASOPHIL % 0.8 0.0 - 2.0 % Absolute Neutrophil Count 5.4 1.4 - 6.5 10*3/uL LYMPHOCYTES, ABSOLUTE 1.5 1.2 - 3.4 10*3/uL MONOCYTES, ABSOLUTE 0.7 0.0 - 0.7 10*3/uL ABSOLUTE EOSINOPHIL COUNT 0.3 0.0 - 0.7 10*3/uL ABSOLUTE BASOPHIL COUNT 0.1 0.0 - 0.2 10*3/uL COMPREHENSIVE METABOLIC PANEL Result Value Ref Range Glucose 117 (H) 70 - 100 MG/DL BUN 15 7 - 20 MG/DL CREATININE SERUM 1.10 0.70 - 1.20 MG/DL SODIUM 137 137 - 145 MMOL/L POTASSIUM 4.3 3.5 - 5.1 MMOL/L CHLORIDE 108 (H) 98 - 107 MMOL/L CALCIUM 9.1 8.4 - 10.2 MG/DL PROTEIN, TOTAL 7.0 6.3 - 8.2 GM/DL Albumin 4.2 3.5 - 5.0 G/dl BILIRUBIN, TOTAL 0.5 0.2 - 1.3 MG/DL AST 22 17 - 59 IU/L ALKALINE PHOSPHATASE 100 38 - 126 IU/L CARBON DIOXIDE (CO2) 27 22 - 30 MMOL/L A/G Ratio 1.5 RATIO ALT 19 <50 IU/L ESTIMATED GFR, NON AMER 70 ml/min/1.73sq.m ESTIMATED GFR, 84 ml/min/1.73sq.m GFR COMMENT Average GFR for 70+ years old = 75. D-DIMER,QUANTITATIVE Result Value Ref Range D-DIMER 0.41 <0.50 g/ml INFLUENZA A AND B, PCR Result Value Ref Range INFLUENZA A NEGATIVE NEGATIVE INFLUENZA B NEGATIVE NEGATIVE TROPONIN I, HIGH SENSITIVITY Result Value Ref Range TROPONIN I, HIGH SENSITIVITY 3 0 - 20 pg/mL Radiographic Imaging XR CHEST PA 1 VIEW Final Result IMPRESSION: No acute cardiopulmonary process. Procedures: Procedures Moderate Sedation Procedure: No ED Summary/MDM EKG interpreted by me shows sinus rhythm rate of 60 beats per minute no STEMI. Pr interval 136 milliseconds when compared to most recent EKGs dated December 27, 2023 I appreciate no significant changes. Patient's blood work was reviewed. He has been resting comfortably. There has been no ectopy on the monitor. He was had a 2nd set troponins which not elevated his troponin level is 3. At this time we will discharge him home have him return if any worsening symptoms. Follow up with his primary provider. I discussed with him about possible causes including dysrhythmia. He states he will follow up with his primary return if any worsening symptoms. Clinical Impression: 1. Weakness 2. Nausea and vomiting, unspecified vomiting type No follow-ups on file. New Prescriptions ONDANSETRON 4 MG TAB DISPERSIBLE TABLET Take 1 tablet by mouth every [address]. [address] on tongue Discontinued Medications No medications on file An After Visit Summary was printed and given to the patient with above information. . Marisa Martinez MD 04/06/241651 [facility] 12-21-2023 Hospital Discharg e instructions Lopez Dubose MD - 12/21/2023 2:21 AM EDT Continue present medications. Call Dr. Mendoza office tomorrow morning and arrange for follow-up. Dial 911 or return to the ER immediately if you develop recurrence of chest pain or feel worse in any way. The following attachments cannot be sent through Care Everywhere.Pain and Pain Control ([facility]) (Jordanian)Chest Pain (Jordanian)Chronic Obstructive Pulmonary Disease (COPD) ([facility]) (Jordanian)documented in this encounter [facility] 12-21-2023 Physician Emergency department Note Emergency Room Note [facility] EM[facility] Service Date:.12/21/23 PCP: Dez Rodriguez Chief Complaint: Chief Complaint Patient presents with Chest Pain Left sided chest pain 10/10 while watching tv tonight, reports better now HPI Srini Menon is a 73 y.o. male presents [...] Sinus rhythm at 84 beats per minute. [place] is normal. [place] interval is 146 milliseconds. QRS duration is [...] the patient with above information. . Lopez Dubose MD 12/21/23 0223 [facility] 12-21-2023 Emergency department Note Emergency Room Note [facility] Service Date:.12/21/23 PCP: Dez Rodriguez Chief Complaint: Chief Complaint Patient presents with Chest Pain Left sided chest pain 10/10 while watching tv tonight, reports better now HPI Srini Menon is a 73 y.o. male presents [...] -- 71 22 93 % -- -- 12/21/235 -- -- -- -- -- -- 1.829 m (6') 87.3 kg (192 lb 8 oz) 12/21/23 003 162/79 97.8 F (36.6 C) Oral 81 16 97 % -- -- EKG: Sinus rhythm at 84 beats per minute. [place] is normal. [place] interval is 146 milliseconds. QRS duration is [...] the patient with above information. . Lopez Dubose MD 12/21/23 0223 documented in this encounter [facility] 12-07-2023 Physician Emergency department Note Emergency Department Report [facility] Service Date:.12/07/23 PCP: Dez Rodriguez Chief Complaint: Chief Complaint Patient presents with [...] no raised bump. Pt denies fevers. HPI Srini Menon is a 73 y.o. male presents [...] -- -- 88 20 94 % -- 12/07/236 -- -- -- -- -- -- 87.7 kg (193 lb 4.8 oz) 12/07/23 0045 (!) 138/91 98.1 F (36.7 C) Oral 100 (!) 40 94 % -- 12/07/231 -- -- -- -- -- 94 % [...] Use Authorization (EUA) for the qualitative detection [id number] nucleic acid. TROPONIN I, HIGH SENSITIVITY Result [...] rhythm, ventricular rate 90 beats per minute, [place] interval 134 milliseconds, QRS duration 80 millisecond, QT interval 436 millisecond I ordered, interpreted and acted upon this electrocardiogram during the patients ED visit. Tonny Alves MD Radiographic Imaging XR CHEST PA 1 [...] patient with above information. . . Tonny Alves MD 12/07/23 0526 [facility] 12-07-2023 Emergency department Note Emergency Department Report [facility] Service Date:.12/07/23 PCP: Dez Rodriguez Chief Complaint: Chief Complaint Patient presents with [...] no raised bump. Pt denies fevers. HPI Srini Menon is a 73 y.o. male presents [...] Oral 100 (!) 40 94 % -- 12/07/231 -- -- -- -- -- 94 % [...] Use Authorization (EUA) for the qualitative detection [id number] nucleic acid. TROPONIN I, HIGH SENSITIVITY Result [...] rhythm, ventricular rate 90 beats per minute, [place] interval 134 milliseconds, QRS duration 80 millisecond, QT interval 436 millisecond I ordered, interpreted and acted upon this electrocardiogram during the patients ED visit. Tonny Alves MD Radiographic Imaging XR CHEST PA 1 [...] patient with above information. . . Tonny Alves MD 12/07/23 0526 Respiratory called at this time. documented in this encounter [facility] 12-07-2023 Emergency department Note Respiratory called at this time. [facility] 08-23-2023 Emergency department Note Pt alert, oriented, NAD, pt discharge instructions reviewed, follow up care encouraged, pt wheeled into RM 15 with pt family member, room air. [facility] 08-23-2023 Emergency department Note Pt alert, [...] given to YOLY Pettit Emergency Department Report [facility] Service Date:.08/23/23 PCP: Dez Rodriguez Chief Complaint: Chief Complaint Patient presents with Shortness of Breath Cough started last Monday. Now C/O SOB, nausea, tachycardia with activity, and chest tightness. HPI Srini Menon is a 73 y.o. male presents [...] Use Authorization (EUA) for the qualitative detection [id number] nucleic acid. CBC, EDIF, PLATELET Result Value [...] STEMI rate of 73 beats per minute. [place] interval 130 milliseconds. When compared to most [...] the patient with above information. . Marisa Martinez MD 08/23/231809 documented in this encounter [facility] 08-23-2023 Emergency department Note Patient alerta nd eating on the bed, awaiting dc [facility] 08-23-2023 Physician Emergency department Note Took [...] exacerbation of COPD. Paul Tovar MD 08/23/231947 [facility] 08-23-2023 Emergency department Note Report given to YOLY Pettit [facility] 08-23-2023 Physician Emergency department Note Emergency Department Report [facility] Service Date:.08/23/23 PCP: Dez Rodriguez Chief Complaint: Chief Complaint Patient presents with Shortness of Breath Cough started last Monday. Now C/O SOB, nausea, tachycardia with activity, and chest tightness. HPI Srini Menon is a 73 y.o. male presents [...] Use Authorization (EUA) for the qualitative detection [id number] nucleic acid. CBC, EDIF, PLATELET Result Value [...] STEMI rate of 73 beats per minute. [place] interval 130 milliseconds. When compared to most [...] the patient with above information. . Marisa Martinez MD 08/23/231809 [facility] Work Phone: 08-02-2021 Miscellaneous Notes Discharge education [...] at this time. documented in this encounter [facility] 08-02-2021 Hospital Discharg e instructions Huan Hoover PA-C - 08/02/2021 2:41 PM EST AAT Huan Hoover PA-C - 08/02/2021 2:41 PM EST AAT The following attachments cannot be sent through Care Everywhere.Coronavirus Disease (COVID-19): Caring for Yourself: Quick List ([place]ian)documented in this encounter [facility] 08-02-2021 Hospital course Narrative Images from the original note were not included. Discharge Summary Summary Time: 08/02/21 2:41 PM Name: Srini Menon Age: 70 y.o. Birthday: 1950 Admit Date: 07/31/2021 11:23 AM Discharge Date: 08/02/2021 Brief Summary of Hospital Course: Patient is a 70 y.o. male presents to [facility] for evaluation of shortness of breath. Patient [...] pre-hospital diet as tolerated. Discharge Follow-up: Dez Rodriguez MD [address] [facility] [address] In 1 week Stefan Tovar MD [address] [facility] [id number] In 1 week Discharge Disposition: Patient will be discharged in stable condition. Discharge Time: Including assessment, planning, and medication reconciliation was greater than 35 min. Huan Hoover PA-C completing Discharge Summary for Dr. Luna Please note portions of this note utilized [employer] dictation software, please excuse any typographical or [...] clarification. Osmin Luna, MDdocumented in this encounter [facility] 08-02-2021 History of Presen t illness [...] with good technique with good eccentric control. TOP TRIMMER provided pt with handout for seated HEP with pt demonstrating a good understanding. Advised pt to continue to walk periodically throughout the day to improve endurance and overall lung function. Pt remained sitting in bedsdie chair with call light left within reach. Transfer Skill: Sit To Stand, Rehab Eval [place] (Sit-Stand Transfers) independent Physical Assist/Nonphysical Assist: Sit/Stand 1 person assist Weight-Bearing Restrictions: Sit/Stand full weight-bearing Assistive Device For Transfer: Sit/Stand (none used) Gait Skills, PT Eval Level of [place]: Gait stand-by assist Physical Assist/Nonphysical Assist: Gait supervision Assistive Device For Transfer: Gait (Pt holding onto IV pole) Gait Distance (Approx 70ft total) Gait Analysis, PT Eval Gait Pattern Used swing-through gait Plan Plan for next visit Cont with LE strengthening ex, endurance, and mobility if pt not discharged Maintain frequency yes STAFF CERTIFIED NURSE MIDWIFE spoke with patient to discuss discharge plans. [...] Information Source Information Source patient Contact Information Street Department Dispatcher/SW Added to Care Team Yes This Cnc Programmer is Primary Street Department Dispatcher/SW Yes Social Work Contact Name Medina Dotson Commercial Counsel's Living Environment Lives With spouse;child(rebecca), adult (Son [...] busses, drives busses, and preaches at the Assisted. Previous Level of Function Ambulation Skills independent [...] Supine to Sit, Rehab Eval Level of [place]: Supine/Sit independent Transfer Skill: Sit To Stand, Rehab Eval [place] (Sit-Stand Transfers) independent Gait Skills, PT Eval Level of [place]: Gait independent Physical Assist/Nonphysical Assist: Gait supervision [...] chart. Discharge Recommendations home with spouse at [facility] Clinical Impression Criteria for Skilled Therapeutic Interventions Met (PT Eval) yes, treatment indicated Impairments Found (PT Eval) Aerobic capacity/endurance;Ventilation and respiration/gas exchange Rehab Potential (PT Eval) good Therapy Frequency 5 times a week Today's Treatment Included activity tolerance, endurance training Goals Goal 1 Pt will be ind in [facility] for activity tolerance Goal 2 Pt will [...] HR with activity Therapist Information License # [id number] Dedra Boles PT 08/01/21 09 Time In/Out Time In 925 Time Out 0953 Total Visit Time 27 [...] AROM WFL Manual Muscle Testing (MMT) Hand Corporate Law Specialist, Right strong Hand Corporate Law Specialist, Left strong Skin Integrity Skin Integrity Description Bruising Edema Edema none noted Bed Mobility Skill: Supine to Sit, Rehab Eval Level of [place]: Supine/Sit supervision Physical Assist/Nonphysical Assist: Supine/Sit verbal cues;1 person assist Transfer Skill: Sit to Stand, Rehab Eval Level of [place]: Sit/Stand supervision Physical Assist/Nonphysical Assist: Sit/Stand 1 person assist Weight-Bearing Restrictions: Sit/Stand full weight-bearing Transfer Skill: Stand to Sit, Rehab Eval Level of [place]: Stand/Sit supervision Physical Assist/Nonphysical Assist: Stand/Sit verbal [...] UB strengtheing HEP Therapist Information License # [id number] Pt. Will complete all toileting tasks (clothing management, hygiene, trasnfer) with SD Pt. Will complete UB/ LB dressing with SD Pt. Will complete UB/ LB bathing with SD Pt. Will complete G/H tasks standing at sink x10 minutes with good balance at SD OT will create a UB HEP with 100% reverse demonstration noted documented in this encounter [facility] 08-01-2021 History and physical note History and Physical Examination 08/01/21 1:42 PM Chief Complaint: Shortness of Breath History of Present Illness: Patient is a 70 y.o. male presents to [facility] for evaluation of shortness of breath. Patient [...] Please note Portions of this note utilized [employer] dictation software, please excuse any typographical or grammatical errors [facility] Associated attestation - Osmin Luna MD - [...] clarification. Osmin Luna, MDdocumented in this encounter [facility] 07-31-2021 Emergency department Note Clarissa from [facility] called. Patient is admitted to room number 3755 under OBS. Room is ready. RN. Notified. Called Dr. Luna for Garland BROWN. Ambulated length of bethea and back to room. O2 sat 95% baseline to 91% during ambulation. Tachypneic during ambulation. Emergency Department Report [facility] Service Date:.07/31/21 PCP: Dez Rodriguez Chief Complaint: Chief Complaint Patient presents with Cough for 4-5 days. pt reports everyone in the family has COVID . Fever Generalized Body Aches Nausea Shortness of Breath HPI Srini Menon is a 70 y.o. male presents [...] Negative Romberg and negative pronator drift. Musculoskeletal: artificial cherry maker strength 2+ the upper extremities. Dorsiflexion and [...] Use Authorization (EUA) for the qualitative detection [id number] nucleic acid. CBC, EDIF, PLATELET Result Value [...] : 76 AXIS : Normal INTERVALS : [place] interval [address] SEGMENT CHANGES : None COMPARISON TO PRIOR : none SUMMARY : No acute ST segment elevation SD on this EKG per Dr. Trevino and [...] the bed coordinator as well as the finisher plate. I will arrange hospitalization for this patient. [...] above information. . John Edwards PA-C 07/31/21 [id number] documented in this encounter [facility] Evaluation note Diagnosis Multifocal pneumonia- Primary Chronic obstructive pulmonary disease with acute exacerbation Obstructive chronic bronchitis with exacerbation Tobacco abuse Tobacco use disorder Hypoalbuminemia Other disorders of plasma protein metabolism Vitamin D deficiency Unspecified vitamin D deficiency [facility] Diagnosis Pulmonary emphysema, unspecified emphysema type [facility] Diagnosis Abdominal pain, right upper quadrant [facility] Diagnosis Neck mass Swelling, mass, or lump in head and neck [facility] Diagnosis Chronic obstructive pulmonary disease, unspecified COPD type- Primary [facility] Diagnosis Dyspnea, unspecified type [facility] Diagnosis Dyspnea, unspecified type [facility] Diagnosis Shortness of breath- Primary Cellulitis of left upper extremity Cellulitis and abscess of upper arm and forearm [facility] Diagnosis Chest pain, unspecified type- Primary Chronic obstructive pulmonary disease, unspecified COPD type [facility] Diagnosis Syncope and collapse- Primary Dizziness and giddiness [facility] Diagnosis Precordial pain Palpitations Shortness of breath Syncope and collapse PAT (paroxysmal atrial tachycardia) Paroxysmal supraventricular tachycardia Atrial premature contractions Supraventricular premature beats Ventricular premature contractions Other premature beats NSVT (nonsustained ventricular tachycardia) Paroxysmal ventricular tachycardia [facility] Diagnosis Syncope and collapse Dizziness and giddiness [facility] Diagnosis Weakness- Primary Other malaise and fatigue Nausea and vomiting, unspecified vomiting type [facility] Attachments The following attachments cannot be sent through Care Everywhere. * [facility] Attachments The following attachments cannot be sent through Care Everywhere. * Pain and Pain Control ([facility]) (Jordanian) * Chronic Obstructive Pulmonary Disease (COPD) ([facility]) ([place]ian[facility] Attachments The following attachments cannot be sent through Care Everywhere. * Pain and Pain Control ([facility]) (Jordanian) * Cellulitis (Jordanian) * SOB (Shortness of Breath) (Jordanian) [facility] Attachments The following attachments cannot be sent through Care Everywhere. * Nausea and Vomiting (Jordanian) [facility] ([facility])* Consultation (Urgent) - New Request Specialty Diagnoses / Procedures Referred By Contac t Referred To Contact Cardiovascular Medicine Diagnoses Chest pain, unspecified type Chronic obstructive pulmonary disease, unspecified COPD type Lopez Dubose MD [address] [place] [phone] David Yepez DO [address] [place] [phone] Referral ID Status Reason Start Date Expiration Date V isits Requested Visits Authorized [id number] New Request 12/21/2023 01/14/2025 1 1 * Radiology (Emergency) - New Request Specialty Diagnoses / Procedures Referred By Contac t Referred To Contact Procedures ECG Lopez Dubose MD [address] [place] [phone] Referral ID Status Reason Start Date Expiration Date V isits Requested Visits Authorized [id number] New Request 12/21/2023 01/14/2025 1 1 [facility] Summary Purpose Family History No Family [...] INPATIENT ADMISSION NOTIFICATION Osmin Luna MD [address] [place] [address] Referral ID Status Reason Start Date Expiration Date V isits Requested Visits Authorized [id number] New Request 07/31/2021 08/25/2022 1 1 Specialty Diagnoses / Procedures Referred By Contac t Referred To Contact Procedures ECG John Edwards PA-C [address] [place] [address] Referral ID Status Reason Start Date Expiration Date V isits Requested Visits Authorized [id number] New Request 07/31/2021 08/25/2022 1 1 Specialty Diagnoses / Procedures Referred By Contac t Referred To Contact Procedures C REACTIVE PROTEIN John Edwards PA-C [address] [place] [address] Referral ID Status Reason Start Date Expiration Date V isits Requested Visits Authorized [id number] New Request 07/31/2021 08/25/2022 1 1 Specialty Diagnoses / Procedures Referred By Contac t Referred To Contact Ultrasound Diagnoses Abdominal pain, right upper quadrant Procedures US ABDOMEN RUQ/LIVER/GB Dez Rodriguez MD [address] [place] [id number] [facility] [address] [place] [phone] Referral ID Status Reason Start Date Expiration Date Visits Re quested Visits Authorized [id number] Closed 10/19/2021 11/13/2022 1 1 Specialty Diagnoses / Procedures Referred By Contac t Referred To Contact Diagnoses Neck mass Procedures [place] [address] [place] [id number] [facility] Referral ID Status Reason Start Date Expiration Date Visits Re quested Visits Authorized [id number] Closed 03/23/2023 04/16/2024 1 1 Specialty Diagnoses / Procedures Referred By Contac t Referred To Contact Diagnoses Neck mass Procedures CT NECK WITH CONTRAST [place] CT NECK TISSUE CONTRAST Dez Rodriguez MD [address] [place] [address] [facility] Referral ID Status Reason Start Date Expiration Date Visits Re quested Visits Authorized [id number] Closed 04/28/2023 05/22/2024 1 1 Specialty Diagnoses / Procedures Referred By Contac t Referred To Contact Procedures ECG Marisa Martinez MD [address] [place] [address] Referral ID Status Reason Start Date Expiration Date V isits Requested Visits Authorized [id number] New Request 08/23/2023 09/16/2024 1 1 Specialty Diagnoses / Procedures Referred By Contac t Referred To Contact Nuclear Medicine Diagnoses Dyspnea, unspecified type Procedures NUC MYOCARD PERF STRESS MIBI PHARM [place] CHG MYOCARDIAL SPECT MULTIPLE STUDIES CHG MYOCARDIAL SPECT MULTIPLE STUDIES-T [place] CARDIAC STRESS TST,INTERP/REPT ONLY [place] CV STRS TST XERS&/OR RX CONT ECG W/O I&R Dez Rodriguez MD [address] [place] [address] [facility] Nuclear Medicine [address] [place] [phone] Referral ID Status Reason Start Date Expiration Date Visits Re quested Visits Authorized [id number] Closed 10/24/2023 11/17/2024 1 1 Specialty Diagnoses / Procedures Referred By Contac t Referred To Contact Diagnoses Dyspnea, unspecified type Procedures HOLTER MONITOR - SECURITY SALES CONSULTANT Dez Rodriguez MD [address] [place] [address] Referral ID Status Reason Start Date Expiration Date Visits Re quested Visits Authorized [id number] Closed 10/24/2023 11/17/2024 1 1 Specialty Diagnoses / Procedures Referred By Contac t Referred To Contact Procedures ECG Tonny Alves MD [address] [facility] [address] [place] [phone] Referral ID Status Reason Start Date Expiration Date V isits Requested Visits Authorized [id number] New Request 12/07/2023 12/31/2024 1 1 Specialty Diagnoses / Procedures Referred By Contac t Referred To Contact Diagnoses Precordial pain Palpitations Shortness of breath Syncope and collapse PAT (paroxysmal atrial tachycardia) Atrial premature contractions Ventricular premature contractions NSVT (nonsustained ventricular tachycardia) Procedures ECHOCARDIOGRAM [place] ECHO TTHRC R-T 2D W/WOM-MODE COMPL SPEC&COLR D Kranthi Edgar II, MD [address] [place] [phone] Referral ID Status Reason Start Date Expiration Date Visits Re quested Visits Authorized [id number] Closed 12/27/2023 01/20/2025 1 1 Specialty Diagnoses / Procedures Referred By Contac t Referred To Contact Diagnoses Syncope and collapse Dizziness and giddiness Procedures VASC DUPLEX CAROTID BILATERAL [place] DUPLEX SCAN EXTRACRANIAL ART COMPL BI STUDY Kranthi Edgar II, MD [address] [place] [phone] Referral ID Status Reason Start Date Expiration Date Visits Re quested Visits Authorized [id number] Closed 12/27/2023 01/20/2025 1 1 Referral ID Status Reason Start Date Expiration Date V isits Requested Visits Authorized [id number] New Request 04/06/2024 05/01/2025 1 1 Additional Source Comments (unrecognized sect ion and content) No Status Records FoundNo Status Records FoundNo Status Records FoundNo Status Records Found INFORMATION SOURCE (unrecogn ized section and content) DATE CREATED AUTHOR 12/15/2017 [facility] DATE CREATED AUTHOR AUTHOR'S ORGANIZ ATION 12/02/2022 [facility] DATE CREATED AUTHOR AUTHOR'S ORGANIZ ATION 01/25/2024 [facility] DATE CREATED AUTHOR AUTHOR'S ORGANIZ ATION 04/23/2024 [facility] Reason for Visit (unrecogniz ed section and content) Reason Comments Cough for 4-5 days. pt rep orts everyone in the family has COVID . Fever Generalized Body Aches Nausea Shortness of Breath Specialty Diagnoses / Procedures Referred By Contac t Referred To Contact Referral ID Status Reason Start Date Expiration Date Visits Re quested Visits Authorized [id number] 1 1 Specialty Diagnoses / Procedures Referred By Contac t Referred To Contact Ultrasound Diagnoses Abdominal pain, right upper quadrant Procedures US ABDOMEN RUQ/LIVER/GB Dez Rodriguez MD [address] [place] [address] [facility] Ultrasound [address] [place] [phone] Referral ID Status Reason Start Date Expiration Date Visits Re quested Visits Authorized [id number] Closed 10/19/2021 11/13/2022 1 1 Specialty Diagnoses / Procedures Referred By Contac t Referred To Contact Diagnoses Neck mass Procedures US NECK SOFT TISSUE Dez Rodriguez MD [address] [place] [address] [facility] Referral ID Status Reason Start Date Expiration Date Visits Re quested Visits Authorized [id number] Closed 03/23/2023 04/16/2024 1 1 Specialty Diagnoses / Procedures Referred By Contac t Referred To Contact Diagnoses Neck mass Procedures CT NECK WITH CONTRAST [place] CT NECK TISSUE CONTRAST Dez Rodriguez MD [address] [place] [address] [facility] Referral ID Status Reason Start Date Expiration Date Visits Re quested Visits Authorized [id number] Closed 04/28/2023 05/22/2024 1 1 Reason Comments Shortness of Breath Cough started last W . Now C/O SOB, nausea, tachycardia with activity, and chest tightness. Specialty Diagnoses / Procedures Referred By Contac t Referred To Contact Nuclear Medicine Diagnoses Dyspnea, unspecified type Procedures NUC MYOCARD PERF STRESS MIBI PHARM [place] CHG MYOCARDIAL SPECT MULTIPLE STUDIES CHG MYOCARDIAL SPECT MULTIPLE STUDIES-T [place] CARDIAC STRESS TST,INTERP/REPT ONLY [place] CV STRS TST XERS&/OR RX CONT ECG W/O I&R Dez Rodriguez MD [address] [place] [address] [facility] Nuclear Medicine [address] [place] [phone] Referral ID Status Reason Start Date Expiration Date Visits Re quested Visits Authorized [id number] Closed 10/24/2023 11/17/2024 1 1 Specialty Diagnoses / Procedures Referred By Contac t Referred To Contact Diagnoses Dyspnea, unspecified type Procedures HOLTER MONITOR - FDC Dez Rodriguez MD [address] [facility] [place] [phone] Referral ID Status Reason Start Date Expiration Date Visits Re quested Visits Authorized [id number] Closed 10/24/2023 11/17/2024 1 1 Reason Comments [...] TILT TABLE TEST Kranthi Edgar II, MD [address] [place] [phone] Referral ID Status Reason Start Date Expiration Date Visits Re quested Visits Authorized [id number] Closed 12/27/2023 01/20/2025 1 1 Specialty Diagnoses / Procedures Referred By Contac t Referred To Contact Diagnoses Precordial pain Palpitations Shortness of breath Syncope and collapse PAT (paroxysmal atrial tachycardia) Atrial premature contractions Ventricular premature contractions NSVT (nonsustained ventricular tachycardia) Procedures ECHOCARDIOGRAM [place] ECHO TTHRC R-T 2D W/WOM-MODE COMPL SPEC&COLR D Kranthi Edgar II, MD [address] [place] [phone] Referral ID Status Reason Start Date Expiration Date Visits Re quested Visits Authorized [id number] Closed 12/27/2023 01/20/2025 1 1 Specialty Diagnoses / Procedures Referred By Sharda schwartz Referred To Contact Diagnoses Syncope and collapse Dizziness and giddiness Procedures VASC DUPLEX CAROTID BILATERAL [place] DUPLEX SCAN EXTRACRANIAL ART COMPL BI STUDY Kranthi Edgar II, MD [address] [place] [address] Referral ID Status Reason Start Date Expiration Date Visits Re quested Visits Authorized [id number] Closed 12/27/2023 01/20/2025 1 1 Reason Comments Fatigue Dizziness Pt reports that for 30 minutes he has been feeling weak, dizzy, shakey and sweaty. He is seeing a winch runner for an afib work up per pt Scheduled Active and Recently Administ ered Medications (unrecognized section and content) Medication Order 07/31/2021 08/01/2021 08/02/2021 Acetylcysteine (NAC) capsule 1,200 mg 1,200 mg, Oral, EVERY 12 HOURS, First dose on 07/31/21 at 2100, Until Discontinued 2021 (Given - Provider: Fracisco Sosa, YOLY) 0834 (Given - Provider: Martin Rodriguez, YOLY)2051 (Given - Provider: Fracisco Sosa, YOLY) 0858 [...] at 1215 1216 (Given - Provider: Iliana Anderson, YUE) ipratropium-albuterol (DUONEB) 0.5-2.5 (3) MG/3ML nebulizer solution 3 mL (COMPLETED) 3 mL, Nebulization, ONCE, 1 dose, On 07/31/21 at 1215 1208 (Given - Provider: Iliana Anderson, YUE) ipratropium-albuterol (DUONEB) 0.5-2.5 (3) MG/3ML nebulizer solution 3 mL (COMPLETED) 3 mL, Nebulization, ONCE, 1 dose, On 08/02/21 at 1015 1112 (Given - Provider: Shaye Davey, YUE) levoFLOXacin (LEVAQUIN) 750 mg in dextrose 5% [...] 1245 1209 (Given - Provider: Krystina Herr, YOLY) ondansetron 4mg/2ml (ZOFRAN) injection 4 mg (COMPLETED) [...] RN) 0726 (See Alternative - Provider: Patricia Schilling RN) sodium chloride 0.9% IV solution 500 mL (COMPLETED) 500 mL, Intravenous, ONCE, 1 dose, On 07/31/21 at 1245 1210 ($$New Bag$$ - Provider: Krystina Herr RN)1217 (Stopped - Provider: Krysitna Herr RN) sodium chloride 0.9% IV solution 75 [...] 24 hours. 1543 (Given - Provider: Martin Rodriguez, YOLY) 0835 (Given - Provider: Martin Rodriguez RN) ipratropium-albuterol (DUONEB) 0.5-2.5 (3) MG/3ML nebulizer solution 3 mL 3 mL, Nebulization, EVERY 4 HOURS NEEDED, Starting on 07/31/21 at 1533, Until Mon08/02/21 at 1844, Shortness of Breath labetalol (NORMODYNE) [...] 1745 1729 (Given - Provid er: Iliana Anderson RRT) Ipratropium-albuterol (DUONEB) 0.5-2.5 (3) MG/3ML nebulizer solution 3 mL (COMPLETED) 3 mL, Nebulization, ONCE, 1 dose, On Mon08/23/23 at 1715 1724 (Given - Provid er: Iliana Anderson RRT) methylPREDNISolone sodium succinate (SOLU-MEDROL) injection 125 mg [...] 2237 1744 ($$New Bag$$ - Provider: Clarice Rizo, YOLY)2025 (Stopped - Provider: Dayana Blanco RN) Scheduled [...] MG/3ML nebulizer solution 1 dose, Starting on Mon12/07/23 at 0053, Until Mon12/07/23 at 0632, Ayde Shearer: cabinet override 0100 (Canceled Entry - Provider: System Discharge - Comment: Automatically canceled at discontinue of medication order) Scheduled Medication Order 12/19/2023 12/20/2023 12/21/2023 GI cocktail: alum/mag hydrox-simethicone(30ml)+lidocain e 2%(10ml) oral suspension 40 mL (COMPLETED) 40 mL, Oral, ONCE, 1 dose, On Mon12/21/23 at 0145 0148 (Given - Provid er: Genet Reyes RN) Ipratropium-albuterol (DUONEB) 0.5-2.5 (3) MG/3ML nebulizer solution 3 mL 3 mL, Nebulization, EVERY 15 MINUTES, 3 doses, First dose on Mon12/21/23 at 0115, Last dose on Mon12/21/23 at 0145 0208 (Not Given - Pr ovider: Shagufta Mcintyre RRT - Reason: Patient/family refused)210 (Not Given - Provider: Shagufta Mcintyre RRT - Reason: Patient/family refused)021 (Not Given - Provider: Shagufta Mcintyre RRT - Reason: Patient/family refused) methylPREDNISolone sodium succinate (SOLU-MEDROL) injection 80 mg 80 mg, Intravenous, ONCE, 1 dose, On Kya 12/21/23 at 0145 0201 (Not Given - Pr ovider: Genet Reyes RN - Reason: Patient/family refused - Comment: Pt. stated unable to take any steroids d/t immobility issues. Dr. Dubose aware.) Ondansetron 4mg/2ml (ZOFRAN) injection 4 mg [...] (Given - Provid er: Genet Reyes RN) Scheduled Medication Order 04/04/2024 04/05/2024 04/06/2024 Ipratropium-albuterol (DUONEB) 0.5-2.5 (3) MG/3ML nebulizer solution 9 mL (COMPLETED) 9 mL, Nebulization, ONCE, 1 dose, On 04/06/24 at 1400 1403 (Given - Provid er: Iliana Anderson, YUE) Ondansetron 4mg/2ml (ZOFRAN) injection 4 mg (COMPLETED) 4 mg, Intravenous, ONCE, 1 dose, On 04/06/24 at 1400 1402 (Given - Provid er: Dottie Subramanian RN) Care Teams (unrecognized sec tion and content) Supervisor Cereal Relationship Specialty Start Date End Date Dez Rodriguez MD [address] [place] [address] PCP - General Family Medicine 11/20/19 Supervisor Cereal Relationship Specialty Start Date End Date Dez Rodriguez MD [address] [place] [facility] [place] [address] PCP - General Family Medicine 11/20/19 Supervisor Cereal Relationship Specialty Start Date End Date Dez Rodriguez MD [address] [facility] [place] [address] PCP - General Family Medicine 11/20/19 Supervisor Cereal Relationship Specialty Start Date End Date Dez Rodriguez MD [address] [facility] [place] [address] [place] [address] PCP - General Family Medicine 11/20/19 Supervisor Cereal Relationship Specialty Start Date End Date Dez Rodriguez MD [address] [place] [address] PCP - General Family Medicine 11/20/19 Supervisor Cereal Relationship Specialty Start Date End Date Dez Rodriguez MD [address] [place] [facility] [address] PCP - General Family Medicine 11/20/19 Supervisor Cereal Relationship Specialty Start Date End Date Dez Rodriguez MD [address] [facility] [place] [address] PCP - General Family Medicine 11/20/19 Supervisor Cereal Relationship Specialty Start Date End Date Dez Rodriguez MD [address] [facility] [place] [address] [place] [address] PCP - General Family Medicine 11/20/19 Supervisor Cereal Relationship Specialty Start Date End Date Dez Rodriguez MD [address] [facility] [place] [address] PCP - General Family Medicine 11/20/19 Supervisor Cereal Relationship Specialty Start Date End Date Dez Rodriguez MD [address] [place] [address] [place] [address] PCP - General Family Medicine 11/20/19 Supervisor Cereal Relationship Specialty Start Date End Date Dez Rodriguez MD [address] [place] [id number] PCP - General Family Medicine 11/20/19 Supervisor Cereal Relationship Specialty Start Date End Date Dez Rodriguez MD [address] [place] [id number] PCP - General Family Medicine 11/20/19 FOR [...] BE BASED ON THE PRIMARY CLINICAL RECORDS. [facility] [employer] [facility]. provides no warranty or guarantee of the accuracy or completeness of information in this document.
--- NOTE | 2024-06-20 15:09 | XR_ITS ---
The [address] [address] Patient Name: RAUL MULLEN MRN: [id number] date: 1950 Sex: M Assigned Patient Location: ER Current Patient Location: ER Accession/Order Number: [id number] Exam Date: 06/20/2024 15:40 Report Date: 06/20/2024 15:57 At the request of: LEONARDO BARAJAS Procedure: XR chest 1V EXAMINATION: XR chest 1V HISTORY: Shortness of breath COMPARISON: XR chest 04/06/2024 FINDINGS: LUNGS: No significant pulmonary parenchymal abnormalities. VASCULATURE: No increased pulmonary vasculature. PLEURA: No pneumothorax, effusion, or pleural thickening. CARDIAC: No cardiomegaly or cardiac silhouette abnormality. MEDIASTINUM: No visible mass or adenopathy. BONES: No fracture or visible bone lesion. OTHER: Negative. XR/XR chest 1V IMPRESSION: 1. No acute cardiopulmonary process. Stable chest. Electronically authenticated by: CORRINE ROMEO Date: 06/20/2024 15:57
--- NOTE | 2024-06-20 15:09 | ECG_ITS ---
The [facility] Test Date: 2024-06-20 Pat Name: RAUL MULLEN Department: Room: - Gender: Male Taker Off: : 1950 Requested By: DEZ RODRIGUEZ Order Number: [id number] Reading MD: PATO ESTRADA Measurements Intervals [place] Rate: 84 P: 70 VA: 148 QRS: 86 QRSD: 94 T: 64 QT: 344 QTc: 385 Interpretive Statements 1100 Sinus rhythm [address] depression 9150 abnormal ECG Compared to ECG 03/22/2024 14:38:58 ST (T wave) deviation now present Right-axis deviation no longer present Electronically Signed On 06-23-2024 7:37:30 EST by PATO ESTRADA
--- NOTE | 2024-06-20 15:11 | ED_ITS ---
HPI - URI/Sore Throat General Chief Complaint: Upper Respiratory Infection Stated Complaint: urti complaints Time Seen by Provider: 06/20/24 14:56 Source: patient Limitations: no limitations History of Present Illness HPI Narrative: Patient is a 73-year-old male who presents to the emergency department for cough, chest congestion and shortness of breath for the last 2 weeks. He has a history of COPD. He has not had any objective fevers, vomiting. He reports tightness in his chest with no shellie chest pain. He has not had any peripheral edema or hemoptysis. He speaks in full sentences and initial interview with no difficulty. He denies any recent steroids or antibiotics. No sick contacts in the home. Related Data Home Medications ?Medication ?Instructions ?Recorded ?Confirmed albuterol sulfate 90 mcg/actuation 2 inh inhalation Q6H PRN shortness 03/05/23 06/20/24 aerosol inhaler of breath or wheezing albuterol sulfate 2.5 mg/3 mL 2.5 mg inhalation Q6H PRN 04/19/23 06/20/24 (0.083 %) solution for nebulization shortness of breath or wheezing mometasone-formoterol HFA 200 2 inh inhalation BID 04/19/23 06/20/24 mcg-5 mcg/actuation aerosol inhaler (Dulera) Previous Rx's ?Medication ?Instructions ?Recorded theophylline 300 mg 300 mg PO TID #90 tabs 04/21/23 tablet,extended release,12 hr dexamethasone 6 mg tablet 6 mg PO DAILY #7 tabs 03/24/24 levofloxacin 750 mg tablet 750 mg PO Q24H #5 tabs 03/24/24 prednisone 20 mg tablet 20 mg PO BID #10 tabs 03/24/24 dexamethasone 4 mg tablet 4 mg PO BID 5 days #10 tabs 06/20/24 levofloxacin 750 mg tablet 750 mg PO DAILY 5 days #5 tabs 06/20/24 Allergies Allergy/AdvReac Type Severity Reaction Status Date / Time prednisone AdvReac Severe Weakness Verified 06/20/24 14:56 vitamin C AdvReac Severe Hives Uncoded 06/20/24 14:56 Review of Systems ROS Constitutional Denies: fever or chills Ears, nose, mouth, and throat Denies: throat pain or nasal congestion Cardiovascular Denies: chest pain Respiratory Reports: shortness of breath, cough and wheezing Gastrointestinal Denies: nausea or vomiting Integumentary/Breast Denies: rash Neurological Denies: numbness in extremities or weakness in extremities Hematologic/Lymphatic Denies: easy bruising or easy bleeding PFSH [facility] Medical History (Updated 06/20/24 @ 16:32 by KEVIN Butler) Acute exacerbation of chronic obstructive pulmonary disease ?J44.1 - Chronic obstructive pulmonary disease with (acute) exacerbation (ICD-10) Hiatal hernia ?K44.9 - Diaphragmatic hernia without obstruction or gangrene (ICD-10) Arthritis ?M19.90 - Unspecified osteoarthritis, unspecified site (ICD-10) Tuberculosis ?A15.9 - Respiratory tuberculosis unspecified (ICD-10) Blood clot in vein ?I82.90 - Acute embolism and thrombosis of unspecified vein (ICD-10) Chronic bronchitis ?J42 - Unspecified chronic bronchitis (ICD-10) Emphysema lung ?J43.9 - Emphysema, unspecified (ICD-10) COPD exacerbation ?J44.1 - Chronic obstructive pulmonary disease with (acute) exacerbation (ICD-10) Surgical History (Updated 03/22/24 @ 16:59 by Aria Barrett) Hx of removal of testicle ?Z90.79 - Acquired absence of other genital organ(s) (ICD-10) H/O vasectomy ?Z98.52 - Vasectomy status (ICD-10) Family History (Updated 03/05/23 @ 20:18 by Chela Yañez RN) Other Family history of CHF (congestive heart failure) Family history of COPD (chronic obstructive pulmonary disease) Family history of diabetes mellitus Family history of myocardial infarction Social History Within the past year, how often did you have a drink containing alcohol: never Score interpretation: A score less than 4 is consistent with normal alcohol consumption. Smoking status: Current every day smoker Non-prescribed substance use: denies use Previous occupational history: retired Highest level of school completed/degree received: GED or equivalent Little interest or pleasure in doing things: not at all Feeling down, depressed, or hopeless: not at all Feel stressed/tense/nervous/anxious/difficulty sleeping: not at all Gender Identity: male Exam Narrative Exam Narrative: Gen.: Awake, alert, in no distress Head: Normocephalic, atraumatic ENT: Moist mucous membranes Respiratory: No respiratory distress, speaks in full sentences, inspiratory and expiratory wheezing globally with scattered rhonchi Cardio: Regular rate and rhythm Extremities: Moves extremities equally Psych: Normal mood and affect Neuro: No focal neuro deficit Skin: Warm, dry, intact Constitutional Vital Signs, click to edit/add: Last Vital Signs Temp 99.0 F 06/20/24 15:02 Pulse 80 06/20/24 16:00 Resp 29 H 06/20/24 16:00 BP 129/78 06/20/24 16:00 Pulse Ox 95 06/20/24 16:00 O2 Del Method Room Air 06/20/24 15:44 Course Vital Signs Vital signs: Vital Signs Pulse Oximetry 83 L 06/20/24 14:57 Temperature 99.0 F 06/20/24 15:02 Pulse Rate 80 06/20/24 16:00 Respiratory Rate 29 H 06/20/24 16:00 Blood Pressure 129/78 06/20/24 16:00 Pulse Oximetry 95 06/20/24 16:00 Oxygen Delivery Method Room Air 06/20/24 15:44 MDM - URI/Sore Throat MDM Narrative Medical decision making narrative: Patient was treated with IV steroids and breathing treatment with improvement. Labs are stable, minimally elevated lactic acid. Patient with normal cardiac monitoring and is hemodynamically stable. He ambulated in the emergency department maintaining normal vital signs with no hypoxia or tachycardia. Discussed with Dr. Bhagat, he can see the patient for follow-up tomorrow if they desire, patient would like to follow-up next week. Patient will be started on antibiotics and steroids. Return to the emergency department if symptoms change or worsen. SUPERVISED APC VISIT, PHYSICIAN ATTESTATION: Based on the medical record the care appears appropriate. ? Medical Records Attestation: I reviewed the patient's medical records. Lab Data Attestation: I reviewed the patient's lab results. Labs: Lab Results 06/20/24 06/20/24 Range/Units 15:15 15:30 WBC 8.1 (4.0-11.0) 10^3/uL RBC 4.65 L (4.70-6.10) 10^6/uL Hgb 14.3 (14.0-18.0) g/dL Hct 43.2 (42.0-54.0) % MCV 92.9 (80.0-94.0) fL MCH 30.8 (25.9-34.0) pg MCHC 33.1 (29.9-35.2) g/dL RDW 13.8 (11.0-15.0) % Plt Count 302 (150-450) 10^3/uL MPV 8.9 L (9.5-13.5) fL Neut % (Auto) 68.4 (43.0-75.0) % Lymph % (Auto) 19.1 L (20.5-60.0) % Crane % (Auto) 7.8 (1.7-12.0) % Eos % (Auto) 3.9 (0.9-7.0) % Baso % (Auto) 0.7 (0.2-2.0) % Neut # (Auto) 5.6 (1.4-6.5) 10^3/uL Lymph # (Auto) 1.6 (1.2-3.8) 10^3/uL Crane # (Auto) 0.6 (0.3-0.8) 10^3/uL Eos # (Auto) 0.3 (0.0-0.7) 10^3/uL Baso # (Auto) 0.1 (0.0-0.1) 10^3/uL Abs Immat Gran (auto) 0.01 (0.00-0.03) 10^3/uL Imm/Tot Granulo (auto) 0.1 (0.0-0.5) % PT 11.7 H (9.0-11.6) sec INR 1.12 VBG pH 7.357 (7.330-7.430) VBG pCO2 45.2 (40.0-52.0) mmHg Sodium 140 (136-145) mmol/L Potassium 4.1 (3.5-5.1) mmol/L Chloride 107 (98-107) mmol/L Carbon Dioxide 26.1 (21.0-32.0) mmol/L Anion Gap 11.0 BUN 13.0 (7.0-18.0) mg/dL Creatinine 1.29 (0.70-1.30) mg/dL Est GFR ( Amer) >60 (>=60 mL/min/1.73m^2) Est GFR (Non-Af Amer) 55 L (>=60 mL/min/1.73m^2) BUN/Creatinine Ratio 10.1 Glucose 119 H (74-106) mg/dL Lactate 2.2 H* (0.4-2.0) mmol/L Calcium 8.5 (8.5-10.1) mg/dL Total Bilirubin 0.4 (0.2-1.0) mg/dL AST 16 (15-37) U/L ALT 24 (16-63) U/L Alkaline Phosphatase 129 H (46-116) U/L Troponin I High Sens 6.7 (4.0-76.1) pg/mL NT-Pro-B Natriuret Pep 72.0 (<=900.0) pg/mL Total Protein 6.7 (6.4-8.2) g/dL Albumin 3.5 (3.4-5.0) g/dL Globulin 3.2 g/dL Albumin/Globulin Ratio 1.1 Influenza Type A Ag Negative Influenza Type B Ag Negative RSV Antigen Not detected (NOT DETECTE) SARS-CoV-2 Ag (CV2AG) Negative (NEGATIVE) Imaging Data Chest x-ray: Attestation: I have reviewed the pertinent imaging results. Radiologist's impression: ITS Impressions Chest X-Ray 06/20/24 15:09 IMPRESSION: 1. No acute cardiopulmonary process. Stable chest. Electronically authenticated by: CORRINE ROMEO Date: 06/20/2024 15:57 ECG Data Attestation: I personally reviewed and interpreted this ECG as follows: (Normal sinus rhythm at a rate of [address] depression, no acute ST elevation or ectopy. EKG reviewed by attending physician) Discharge Plan Discharge Chief Complaint: Upper Respiratory Infection Clinical Impression: Bronchitis Patient Disposition: Home, Self-Care Time of Disposition Decision: 16:32 Condition: Good Prescriptions / Home Meds: New dexamethasone 4 mg tablet 4 mg PO BID 5 Days Qty: 10 0RF levofloxacin 750 mg tablet 750 mg PO DAILY 5 Days Qty: 5 0RF No Action albuterol sulfate 2.5 mg /3 mL (0.083 %) solution for nebulization 2.5 mg inhalation Q6H PRN (Reason: shortness of breath or wheezing) Dulera 200-5 mcg/actuation HFA aerosol inhaler 2 inh inhalation BID theophylline 300 mg tablet extended release 12 hr 300 mg PO TID Qty: 90 11RF albuterol sulfate 90 mcg/actuation HFA aerosol inhaler 2 inh INHALATION Q6H PRN (Reason: shortness of breath or wheezing) prednisone 20 mg tablet 20 mg PO BID Qty: 10 0RF levofloxacin 750 mg tablet 750 mg PO Q24H Qty: 5 0RF dexamethasone 6 mg tablet 6 mg PO DAILY Qty: 7 0RF Print Language: Faroese Instructions: Acute Bronchitis (ED) Referrals: John Bhagat MD [Primary Care Provider] - 1 week
[2024-06-20] MEDS: METHYLPREDNISOLONE SOD SUCC PF 125 MG/2 ML VIAL IVP (15:27)
[2024-06-20 15:36] LABS: Basophils Absolute Auto 0.1 10^3/uL (0.0-0.1); Basophils Percent Auto 0.7 % (0.2-2.0); Eosinophils Absolute Auto 0.3 10^3/uL (0.0-0.7); Eosinophils Percent Auto 3.9 % (0.9-7.0); Hematocrit 43.2 % (42.0-54.0); Hemoglobin 14.3 g/dL (14.0-18.0); Immature Granulocytes Abs Auto 0.01 10^3/uL (0.00-0.03); Immature Granulocytes Pct Auto 0.1 % (0.0-0.5); Lymphocytes Absolute Auto 1.6 10^3/uL (1.2-3.8); Lymphocytes Percent Auto 19.1 % (20.5-60.0); Mean Corpuscular HGB Conc 33.1 g/dL (29.9-35.2); Mean Corpuscular Hemoglobin 30.8 pg (25.9-34.0); Mean Corpuscular Volume 92.9 fL (80.0-94.0); Mean Platelet Volume 8.9 fL (9.5-13.5); Monocytes Absolute Auto 0.6 10^3/uL (0.3-0.8); Monocytes Percent Auto 7.8 % (1.7-12.0); Neutrophils Absolute Auto 5.6 10^3/uL (1.4-6.5); Neutrophils Percent Auto 68.4 % (43.0-75.0); Platelet Count 302 10^3/uL (150-450); Red Blood Count 4.65 10^6/uL (4.70-6.10); Red Cell Distribution Width 13.8 % (11.0-15.0); White Blood Count 8.1 10^3/uL (4.0-11.0)
[2024-06-20 15:41] LABS: PCO2 VBG 45.2 mmHg (40.0-52.0); pH VBG 7.357 (7.330-7.430)
[2024-06-20] MEDS: ALBUTEROL SULFATE 2.5 MG/3 ML VIAL NEB IH (15:41)
[2024-06-20 15:51] LABS: Influenza Virus A Antigen Negative; Influenza Virus B Antigen Negative; Internal Control Within Normal Limits; Respiratory Syncytial Virus Not Detected (NOT DETECTE); SARS-CoV-2 Ag NEGATIVE (NEGATIVE)
[2024-06-20 15:54] LABS: INR 1.12; Prothrombin Time 11.7 sec (9.0-11.6)
[2024-06-20 16:05] LABS: Alanine Aminotransferase 24 U/L (16-63); Albumin Globulin Ratio 1.1; Albumin Level 3.5 g/dL (3.4-5.0); Alkaline Phosphatase 129 U/L (46-116); Aspartate Amino Transferase 16 U/L (15-37); BUN Creatinine Ratio 10.1; Bilirubin Total 0.4 mg/dL (0.2-1.0); Calcium 8.5 mg/dL (8.5-10.1); Carbon Dioxide 26.1 mmol/L (21.0-32.0); Chloride 107 mmol/L (98-107); Estimated GFR (African America >60 (>=60 mL/min/1.73m^2); Estimated GFR (Non-African Ame 55 (>=60 mL/min/1.73m^2); Globulin 3.2 g/dL; Glucose 119 mg/dL (74-106); Potassium 4.1 mmol/L (3.5-5.1); Sodium 140 mmol/L (136-145); Total Protein 6.7 g/dL (6.4-8.2); Troponin I High Sensitivity 6.7 pg/mL (4.0-76.1)
[2024-06-20 16:06] LABS: Lactate/Lactic Acid 2.2 mmol/L (0.4-2.0)
--- NOTE | 2024-06-20 16:14 | PC.NURSE ---
Pulse Ox. with ambulation is 92-94% on room air.
== END 2024-06-20 16:48 | disposition home or self-care (01) ==
PROVIDERS: Physician Assistant; Emergency Provider Emergency Medicine; PCP Family Medicine
DX: J40 Bronchitis, not specified as acute or chronic (principal); R06.02 Shortness of breath; J44.9 Chronic obstructive pulmonary disease, unspecified; R07.89 Other chest pain; Z98.52 Vasectomy status; Z90.79 Acquired absence of other genital organ(s); F17.200 Nicotine dependence, unspecified, uncomplicated
CPT/HCPCS: 36415; 71045; 80053; 82800; 83605; 83880; 84484; 85025; 85610; 87420; 87804; 87811; 93005; 94640; 96374; 99285; J2919

== ENCOUNTER 2024-09-20 13:31 | Outpatient (OUT) | payer MEDICARE, SELFPAY ==
--- NOTE | 2024-09-20 13:37 | US_ITS ---
The [address] [address] Patient Name: RAUL MULLEN MRN: [id number] date: 1950 Sex: M Assigned Patient Location: US Current Patient Location: US Accession/Order Number: [id number] Exam Date: 09/20/2024 16:57 Report Date: 09/20/2024 16:59 At the request of: DEZ RODRIGUEZ MD Procedure: US soft tissue head and neck Soft tissue ultrasound. Reason for exam: Lumps both sides of neck. COMPARISON: None. FINDINGS: In the areas of concern involving the neck, benign-appearing lymph nodes are noted largest measuring 1.3 x 0.4 x 1.2 cm involving the right neck and 1.4 x 0.5 x 0.9 cm involving the left neck. No solid mass or fluid collection is seen. US/US soft tissue head and neck IMPRESSION: An area of concern involving the neck, benign-appearing lymph nodes are noted. Finding is nonspecific and is likely reactive. Impression dictated by: Jose Guadalupe Alvarado Jr., D.O.09/20/2024 4:59 PM Dictation Location: [place] [address] Electronically authenticated by: [id number] Y Date: 09/20/2024 16:59
== END 2024-09-20 13:32 | disposition home or self-care (01) ==
LOC: US 13:32
PROVIDERS: PCP Family Medicine; Visit Provider Family Medicine
DX: R22.1 Localized swelling, mass and lump, neck (principal)
CPT/HCPCS: 76536

== ENCOUNTER 2024-10-15 13:14 | Outpatient (OUT) | payer MEDICARE, SELFPAY ==
--- NOTE | 2024-10-15 13:31 | XR_ITS ---
[address] [address] Patient Name: RAUL MULLEN MRN: [id number] date: 1950 Sex: M Assigned Patient Location: [facility] Current Patient Location: [facility] Accession/Order Number: [id number] Exam Date: 10/15/2024 15:39 Report Date: 10/15/2024 15:43 At the request of: PAUL GILBERT MD Procedure: XR chest 2V Plain film chest 2 view HISTORY: Presurgical testing. Cough and shortness of breath COMPARISON: 06/20/2024 FINDINGS: SUPPORT DEVICES: None POSTSURGICAL CHANGES: None HEART: Within normal limits PULMONARY SÁNCHEZ: Within normal limits MEDIASTINUM: Unremarkable LUNGS AND PLEURA: No acute lung process, pleural effusion or pneumothorax identified. BONY STRUCTURES: Intact ADDITIONAL FINDINGS None XR/XR chest 2V IMPRESSION: No acute process. Impression dictated by: Ha Duckworth M.D.10/15/2024 3:43 PM Dictation Location: [place] Electronically authenticated by: [id number] Y Date: 10/15/2024 15:43
--- NOTE | 2024-10-15 13:32 | ECG_ITS ---
The [facility] Test Date: 2024-10-15 Pat Name: RAUL MULLEN Department: Room: - Gender: Male Pricing Director: : 1950 Requested By: PAUL GILBERT Order Number: [id number] Reading MD: ALEC SAHA Measurements Intervals [place] Rate: 70 P: 63 VA: 133 QRS: 85 QRSD: 109 T: 67 QT: 377 QTc: 407 Interpretive Statements SINUS RHYTHM MODERATE ST DEPRESSION [0.05+ mV ST DEPRESSION] Compared to ECG 06/20/2024 15:01:30 No significant changes Electronically Signed On 10-15-2024 18:22:44 EDT by ALEC SAHA
[2024-10-15 15:00] LABS: Basophils Percent Auto 0.7 % (0.2-2.0); Eosinophils Absolute Auto 0.3 10^3/uL (0.0-0.7); Eosinophils Percent Auto 5.6 % (0.9-7.0); Hematocrit 45.3 % (42.0-54.0); Hemoglobin 14.9 g/dL (14.0-18.0); Immature Granulocytes Abs Auto 0.01 10^3/uL (0.00-0.03); Immature Granulocytes Pct Auto 0.2 % (0.0-0.5); Lymphocytes Absolute Auto 1.4 10^3/uL (1.2-3.8); Mean Corpuscular HGB Conc 32.9 g/dL (29.9-35.2); Mean Corpuscular Hemoglobin 30.7 pg (25.9-34.0); Mean Corpuscular Volume 93.4 fL (80.0-94.0); Mean Platelet Volume 8.9 fL (9.5-13.5); Monocytes Absolute Auto 0.7 10^3/uL (0.3-0.8); Monocytes Percent Auto 12.2 % (1.7-12.0); Neutrophils Percent Auto 55.3 % (43.0-75.0); Platelet Count 327 10^3/uL (150-450); Red Blood Count 4.85 10^6/uL (4.70-6.10); Red Cell Distribution Width 13.7 % (11.0-15.0); White Blood Count 5.5 10^3/uL (4.0-11.0)
[2024-10-15 15:09] LABS: Anion Gap 11.8; BUN Creatinine Ratio 12.7; Calcium 8.9 mg/dL (8.5-10.1); Carbon Dioxide 29.6 mmol/L (21.0-32.0); Chloride 107 mmol/L (98-107); Estimated GFR (African America >60 (>=60 mL/min/1.73m^2); Estimated GFR (Non-African Ame >60 (>=60 mL/min/1.73m^2); Glucose 86 mg/dL (74-106); Potassium 4.4 mmol/L (3.5-5.1); Sodium 144 mmol/L (136-145)
[2024-10-15 15:16] LABS: INR 1.09; Prothrombin Time 11.5 sec (9.0-11.6)
== END 2024-10-15 13:15 | disposition home or self-care (01) ==
PROVIDERS: PCP Family Medicine; Visit Provider Surgery
DX: Z01.810 Encounter for preprocedural cardiovascular examination (principal); Z01.812 Encounter for preprocedural laboratory examination; K92.1 Melena
CPT/HCPCS: 36415; 71046; 80048; 85025; 85610; 85730; 93005

== ENCOUNTER 2024-11-25 07:34 | Outpatient (OUT) | payer MEDICARE, SELFPAY ==
--- OUTSIDE RECORDS SUMMARY | 2024-09-18 10:23 | XMS_ITS ---
Author Organization The [facility] in [place] Address [address] [place] [address] Care Team Providers Care Gospel Singer Name Role Phone Micha Bhagat Primary Care Provider REASON FOR VISIT office reports Encounters Encounter Location Date Provider Diagnosis [address] [place] [address] 09/18/2024 Micha Bhagat Plan Of Treatment No Information Progress Notes * MENONSriniDOB: [birth year] (74 yo M)Acc No.[id number]:09/18/2024 Patient: Srini SIMPSON :1950 A ge:74 Y S ex:Male Address:[address] [place] [address], [phone] * true * Date: Generated for Braydeni ng/Farolyg/eTransmitting on: 0 11/25/2024 07:37 AM EDT
--- OUTSIDE RECORDS SUMMARY | 2024-09-22 12:10 | XMS_ITS ---
Author Organization The [facility] in [place] Address [address] [place] [address] Care Team Providers Care Book Agent Name Role Phone Micha Bhagat Primary Care Provider REASON FOR VISIT lymph nodes Encounters Encounter Location Date Provider Diagnosis [address] [place] [address] 09/22/2024 Micha Bhagat Plan Of Treatment No Information Progress Notes * MENONSriniDOB: [birth year] (74 yo M)Acc No.[id number]:09/22/2024 Patient: Srini SIMPSON :1950 A ge:74 Y S ex:Male Address:[address] [place] [address], [phone] * true * Date: Generated for Braydeni ng/Farolyg/eTransmitting on: 0 11/25/2024 07:37 AM EDT
--- OUTSIDE RECORDS SUMMARY | 2024-11-15 07:45 | XMS_ITS ---
Author Organization The [facility] in [place] Address [address] [place] [address] Care Team Providers Care Import/Export Clerk Name Role Phone Micha Bhagat Primary Care Provider REASON FOR VISIT update Encounters Encounter Location Date Provider Diagnosis [facility] [address] [place] [address] 11/15/2024 Micha Bhagat Anemia, iron deficiency D50.9 and Rectal bleeding K62.5 Assessments Encounter Date Diagnosis (ICD Code) Assessment Notes Treatment Notes Treatment Clinical Notes Section Notes 11/15/2024 Anemia, iron deficiency (ICD-10 - D50.9) 11/15/2024 Rectal bleeding (ICD-10 - K62.5) Plan Of Treatment Pending Test Test Name Order Date CT ABD and PELV W CON 11/15/2024 Progress Notes * Srini MENONDOB: [birth year] (74 yo M)Acc No.[id number]:11/15/2024 Patient: Srini SIMPSON :1950 A ge:74 Y S ex:Male Address:[address] [place] [address], [phone] Subjective: * Chief Complaints: * U pdate * Medical History: * Surgical History: * Hospitalization/Major Diagno stic Procedure: * Medications: Objective: * Vitals: * Physical Examination: Assessment: * Assessment: 1. A nemia, iron deficiency - D50.9 (Primary) 2 . R ectal bleeding - K62.5? Plan: * Treatment: 2.?Rectal bleeding?Imaging: CT ABD and PELV W CON* iv and oral contrast * Procedure Codes: * true * Date: Generated for Nicola melvin/Angeles/Jeannette on: 0 11/25/2024 07:37 AM EDT
--- OUTSIDE RECORDS SUMMARY | 2024-11-25 07:37 | XMS_ITS | Encounter Summary ---
Author Organization [facility] Address [address] [place] [address] Care Team Providers Care Psychological Assistant Name Role Phone Dez Rodriguez MD Primary Care Provider [phone] Encounter Details Date Type Department Care Team (Late st Contact Info) Description 03/05/2023 Clinisync Result Encounter [facility] External Department Unsolicited Kiko Pate, [place] [address] [place] [address] Social History Tobacco Use Types Packs/Day Years Used Date Smoking Tobacco: Never Assessed Sex and Gender Information Value Date Recorded Sex Assigned at Not on file Legal Sex Male 7:34 PM EDT Gender Identity Not on file Sexual Orientation Not on file documented as of this encounter Plan of Treatment Not on file documented as of this encounter Procedures Procedure Name Priority Date/Time Associated Diagnosis Comments ECG 12-LEAD 03/05/2023 4:46 PM EDT documented in this encounter Results * ECG 12-LEAD (03/05/2023 4:46 PM EDT) Anatomical Region Laterality Modality Other 03/05/2023 4:46 PM EDT Narrative 03/05/2023 4:46 PM EDT The [address] [address] Electrocardiograph Report Signed Patient: ARUL MENON MR#: [id number] : 1950 Acct:[id number] Age/Sex: 72 / M ADM Date: 03/05/23 Loc: [place] 213-[address]: Dez Rodriguez M.D. Ordering Physician: Kiko Pate Date of Service: 03/05/23 Procedure(s): ECG 12 lead Accession Number(s): [id number] cc: [facility] Test Date: 2023-03-05 Pat Name: RAUL MENON Department: Room: - Gender: Male Wellness Nurse: : 1950 Requested By: DEZ RODRIGUEZ Order Number: [id number] Reading MDLucinda RODRIGUEZ Measurements Intervals [place] Rate: 89 P: 84 VT: 146 QRS: 90 QRSD: 98 T: 71 QT: 338 QTc: 385 Interpretive Statements 1100 Sinus rhythm [address] depression 9150 abnormal ECG No previous ECG available for comparison Electronically Signed On 03-06-2023 6:13:10 EDT by DEZ RODRIGUEZ Dictated By: Dez Rodriguez M.D. Signed By: 03/06/23612 DD/ 1646 TD/TT: Delivery Recruiter: Procedure Note Radiology, Radiologist, MD - 03/16/2023 [place] [address] Electrocardiograph Report Signed Patient: RAUL MENONMR#: [id number] : 1950cct:[id number] Age/Sex: 72 / MADM Date: 03/05/23 Loc: [place] 213-[address]: Dez Rodriguez M.D. Ordering Physician: Kiko Pate Date of Service: 03/05/23 Procedure(s): ECG 12 lead Accession Number(s): [id number] cc: [facility] Test Date: 2023-03-05 Pat Name: RAUL MENON Department: Room: - Gender: Male Wellness Nurse: : 1950 Requested By: DEZ RODRIGUEZ Order Number: [id number] Reading : DEZ RODRIUGEZ Measurements Intervals [place] Rate: 89 P: 84 VT: 146 QRS: 90 QRSD: 98 T: 71 QT: 338 QTc: 385 Interpretive Statements 1100 Sinus rhythm [address] depression 9150 abnormal ECG No previous ECG available for comparison Electronically Signed On 03-06-2023 6:13:10 EDT by DEZ RODRIGUEZ Dictated By: Dez Rodriguez M.D. Signed By:03/06/23 0613 DD/ 1646 TD/TT: Delivery Recruiter: us [facility] Final Resul t documented in this encounter Visit Diagnoses Not on filedocumented in this encounter Care Teams Psychological Assistant Relationship Specialty Start Date End Date Dez Rodriguez MD PCP - General Family Medicine 04/26/24 documented as of this encounter
--- OUTSIDE RECORDS SUMMARY | 2024-11-25 07:37 | XMS_ITS | Clinical Summary ---
Author Organization [facility] Address [address] [place] [address] Care Team Providers Care Pattern Ruler Name Role Phone Unavailable Primary Care Provider Unavailabl e Social History Tobacco Use Types Packs/Day Years Used Date Smoking Tobacco: Never Assessed Sex and Gender Information Value Date Recorded Sex Assigned at Not on file Legal Sex Male 9:22 AM EST Gender Identity Not on file Sexual Orientation Not on file Plan of Treatment Not on file
--- OUTSIDE RECORDS SUMMARY | 2024-11-25 07:37 | XMS_ITS | Patient Health Record ---
Author Organization [facility] in [place] Address [address] [place] [address] Care Team Providers Care Boning Room Worker Name Role Phone Micha Bhagat Primary Care Provider DEZ BHAGAT Unavailable [phone] Allergies Allergen (clinical drug ingredient) Drug/Non Drug Allergy documented on EMR Reaction Allergy Type Onset Date Status ascorbic acid Vitamin C Brain Fog Drug Allergy Act ely ketorolac Ketorolac Unknown Drug Allergy Active prednisone Prednisone Tachycardia Drug Allergy Act ely Results Component Value Reference Range Notes Venous Blood Gas Reviewed date:03/22/2024 05:38:11 PM Interpretation: Performing Lab: Notes/Report: [facility] , pH VBG 7.336 7.330-7.430 PCO2 VBG 49.3 40.0-52.0 mmHg Performing Lab: see note ML - [facility] LB ECG 12 lead Reviewed date:03/22/2024 05:38:11 PM Interpretation: Performing Lab: Notes/Report: Source Facility: [facility]-[address] [place] [address] [place] [address] Electrocardiograph Report Draft Patient: SRINI MENON MR#: [id number] : 1950 Acct:[id number] Age/Sex: 73 / M ADM Date: 03/22/24 Loc: ER Attending Dr: Ordering Physician: Shaye Barajas Date of Service: 03/22/24 Procedure(s): ECG 12 lead Accession Number(s): [id number] cc: 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1950 Requested By: 0929 Order Number: [id number] Reading MD: Measurements Intervals [place] Rate: 72 P: 66 NE: 144 QRS: 91 QRSD: 102 T: 44 QT: 370 QTc: 394 Interpretive Statements 1100 Sinus rhythm 7102 Moderate right axis deviation 9110 normal ECG No previous ECG available for comparison Dictated By: Lacie Akers Signed By: DD/ 37 TD/TT: Automatic Coil Machine Operator: [place] [address] Electrocardiograph Report Draft Patient: BEST MENON MR#: [id number] : 1950 Acct:[id number] Age/Sex: 73 / M ADM Date: 03/22/24 Loc: ER Attending Dr: Ordering Physician: Shaye Barajas Date of Service: 03/22/24 Procedure(s): ECG 12 lead Accession Number(s): [id number] cc: 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 , White Blood Count 8.1 4.0-11.0 10 3/uL Red Blood Count 4.65 4.70-6.10 10 6/uL Hemoglobin 14.3 14.0-18.0 g/dL Hematocrit 43.2 42.0-54.0 % Mean Corpuscular Volume 92.9 80.0-94.0 fL Mean Corpuscular Hemoglobin 30.8 25.9-34.0 pg Mean Corpuscular HGB Conc 33.1 29.9-35.2 g/dL Red Cell Distribution Width 13.8 11.0-15.0 % Platelet Count 302 150-450 10 3/uL Mean Platelet Volume 8.9 9.5-13.5 fL Neutrophils Percent Auto 68.4 43.0-75.0 % Lymphocytes Percent Auto 19.1 20.5-60.0 % Monocytes Percent Auto 7.8 1.7-12.0 % Eosinophils Percent Auto 3.9 0.9-7.0 % Basophils Percent Auto 0.7 0.2-2.0 % Immature Granulocytes Pct Auto 0.1 0.0-0.5 % Neutrophils Absolute Auto 5.6 1.4-6.5 10 3/uL Lymphocytes Absolute Auto 1.6 1.2-3.8 10 3/uL Monocytes Absolute Auto 0.6 0.3-0.8 10 3/uL Eosinophils Absolute Auto 0.3 0.0-0.7 10 3/uL Basophils Absolute Auto 0.1 0.0-0.1 10 3/uL Immature Granulocytes Abs Auto 0.01 0.00-0.03 10 3/uL Performing Lab: see note ML - [facility] INFLUENZA A AND B AG Reviewed date:06/20/2024 06:06:04 PM Interpretation: Performing Lab: Notes/Report: [facility] , Influenza Virus A Antigen Negative Negative for Flu A protein antigen. Infection due to Flu A cannot be ruled out. Flu A antigen in the sample may be below the detection limit of the test. Influenza Virus B Antigen Negative Negative for Flu B protein antigen. Infection due to Flu B cannot be ruled out. Flu B antigen in the sample may be below the detection limit of the test. Performing Lab: see note ML - [facility] LB RSV Reviewed date:06/20/2024 06:06:04 PM Interpretation: Performing Lab: Notes/Report: [facility] , Respiratory Syncytial Virus Not Detected NOT DETECTE Performing Lab: see note - [facility] LB Venous Blood Gas Reviewed date:06/20/2024 06:06:05 PM Interpretation: Performing Lab: Notes/Report: [facility] , pH VBG 7.357 7.330-7.430 PCO2 VBG 45.2 40.0-52.0 mmHg Performing Lab: see note ML - [facility] LB SARS-CoV-2 Ag* Reviewed date:06/20/2024 06:06:05 PM Interpretation: Performing Lab: Notes/Report: [facility] , SARS-CoV-2 Ag NEGATIVE NEGATIVE This test has not been FDA cleared [...] is terminated or authorization is revoked sooner. Performing Lab: see note ML - [facility] LB XR chest 1V Reviewed date:06/20/2024 06:06:05 PM Interpretation: Performing Lab: Notes/Report: Source Facility: [place] [address] [place] [address] XRay Report Signed Patient: SRINI MENON MR#: [id number] : 1950 Acct:[id number] Age/Sex: 73 / M ADM Date: 06/20/24 Loc: ER Attending Dr: Ordering Physician: Shaye Barajas Date of Service: 06/20/24 Procedure(s): XR chest 1V Accession Number(s): [id number] cc: Dez Bhagat M.D.; Shaye Barajas [place] [id number] Patient Name: SRINI MENON MRN: TBH:[id number] date: 1950 Sex: M Assigned Patient Location: ER Current Patient Location: ER Accession/Order Number: [id number] Exam Date: 06/20/2024 15:40 Report Date: 06/20/2024 15:57 At the request of: SHAYE BARAJAS Procedure: XR chest 1V EXAMINATION: XR chest 1V HISTORY: Shortness of breath COMPARISON: XR chest 04/06/2024 FINDINGS: LUNGS: No significant pulmonary parenchymal abnormalities. VASCULATURE: No increased pulmonary vasculature. PLEURA: No pneumothorax, effusion, or pleural thickening. CARDIAC: No cardiomegaly or cardiac silhouette abnormality. MEDIASTINUM: No visible mass or adenopathy. BONES: No fracture or visible bone lesion. OTHER: Negative. XR/XR chest 1V IMPRESSION: 1. No acute cardiopulmonary process. Stable chest. Electronically authenticated by: TRISTON JAY Date: 06/20/2024 15:57 Dictated By: Triston Jay M.D. Signed By: 06/20/24 1559 DD/ 155 TD/TT: Automatic Coil Machine Operator: [place] [address] XRay Report Signed Patient: BEST MNEON MR#: [id number] : 1950 Acct:[id number] Age/Sex: 73 / M ADM Date: 06/20/24 Loc: ER Attending Dr: Ordering Physician: Shaye Barajas Date of Service: 06/20/24 Procedure(s): XR chest 1V Accession Number(s): [id number] cc: Dez Bhagat M.D. ; Shaye Barajas [address] [address] Patient Name: SRINI MENON MRN: [id number]:[id number] date: 1950 Sex: M Assigned Patient Location: ER Current Patient Loca tion: ER Accession/Order Numb er: [id number] Exam Date: 15:40 Report Date: 06/20/2024 15:57 At the request of: SHAYE BARAJAS Procedure: XR chest 1V EXAMINATION: XR chest 1V HISTORY: Shortness o f breath COMPARISON: XR chest 04/06/2024 FINDINGS: LUNGS: No significan t pulmonary parenchymal abnormalities. VASCULATURE: No incr eased pulmonary vasculature. PLEURA: No pneumotho rax, effusion, or pleural thickening. CARDIAC: No cardiome gorge or cardiac silhouette abnormality. MEDIASTINUM: No visi ble mass or adenopathy. BONES: No fracture o r visible bone lesion. OTHER: Negative. X R/XR chest 1V IMPRESSION: 1. No acute cardiopulmonary process. Stable chest. Electronically authenticated by: TRISTON JAY Date: 06/20/2024 15:57 Dictated By: Triston Jay M.D. Signed By: 06/20/24 155 DD/ 155 TD/TT: Automatic Coil Machine Operator: ECG 12 lead Reviewed date:10/15/2024 08:32:36 PM Interpretation: Performing Lab: Notes/Report: Source Facility: [place] [address] Electrocardiograph Report Signed Patient: SRINI MENON MR#: [id number] : 1950 Acct:[id number] Age/Sex: 74 / M ADM Date: 10/15/24 Loc: PST Attending Dr: Paul Reyes M.D. Ordering Physician: Paul Reyes M.D. Date of Service: 10/15/24 Procedure(s): ECG 12 lead Accession Number(s): [id number] cc: 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 Signed By: 10/15/24 1822 DD/ 1449 TD/TT: Automatic Coil Machine Operator: [place] [id number] Electrocardiograph Report Signed Patient: BEST MENON MR#: [id number] : 1950 Acct:[id number] Age/Sex: 74 / M ADM Date: 10/15/24 Loc: PST Attending Dr: Kandis Reyes M.D. Ordering Physician: Paul Reyes M.D. Date of Service: 10/15/24 Procedure(s): ECG 12 lead Accession Number(s): [id number] cc: 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 Signed By: 10/15/24 1822 DD/ 1449 TD/TT: Automatic Coil Machine Operator: CBC AUTO DIFF Reviewed date:10/15/2024 08:32:36 PM Interpretation: Performing Lab: Notes/Report: [facility] , White Blood Count 5.5 4.0-11.0 10 3/uL Red Blood Count 4.85 4.70-6.10 10 6/uL Hemoglobin 14.9 14.0-18.0 g/dL Hematocrit 45.3 42.0-54.0 % Mean Corpuscular Volume 93.4 80.0-94.0 fL Mean Corpuscular Hemoglobin 30.7 25.9-34.0 pg Mean Corpuscular HGB Conc 32.9 29.9-35.2 g/dL Red Cell Distribution Width 13.7 11.0-15.0 % Platelet Count 327 150-450 10 3/uL Mean Platelet Volume 8.9 9.5-13.5 fL Neutrophils Percent Auto 55.3 43.0-75.0 % Lymphocytes Percent Auto 26.0 20.5-60.0 % Monocytes Percent Auto 12.2 1.7-12.0 % Eosinophils Percent Auto 5.6 0.9-7.0 % Basophils Percent Auto 0.7 0.2-2.0 % Immature Granulocytes Pct Auto 0.2 0.0-0.5 % Neutrophils Absolute Auto 3.0 1.4-6.5 10 3/uL Lymphocytes Absolute Auto 1.4 1.2-3.8 10 3/uL Monocytes Absolute Auto 0.7 0.3-0.8 10 3/uL Eosinophils Absolute Auto 0.3 0.0-0.7 10 3/uL Basophils Absolute Auto 0.0 0.0-0.1 10 3/uL Immature Granulocytes Abs Auto 0.01 0.00-0.03 10 3/uL Performing Lab: see note ML - [facility] LB ECG 12 lead Reviewed date:06/23/2024 03:07:02 PM Interpretation: Performing Lab: Notes/Report: Source Facility: [place] [address] Electrocardiograph Report Signed Patient: SRINI MENON MR#: [id number] : 1950 Acct:[id number] Age/Sex: 73 / M ADM Date: 06/20/24 Loc: ER Attending Dr: Ordering Physician: Shaye Barajas Date of Service: 06/20/24 Procedure(s): ECG 12 lead Accession Number(s): [id number] cc: [facility] Test Date: 2024-06-20 Pat Name: SRINI MENON Department: Room: - 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 Signed By: 06/23/24 0737 DD/ 1501 TD/TT: Automatic Coil Machine Operator: [place] [address] Electrocardiograph Report Signed Patient: BEST MENON MR#: [id number] : 1950 Acct:[id number] Age/Sex: 73 / M ADM Date: 06/20/24 Loc: ER Attending Dr: Ordering Physician: Shaye Barajas Date of Service: 06/20/24 Procedure(s): ECG 12 lead Accession Number(s): [id number] cc: 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 Signed By: 06/23/24 0737 DD/ 1501 TD/TT: Automatic Coil Machine Operator: Troponin I High Sensitivity Reviewed date:06/20/2024 06:06:05 PM Interpretation: Performing Lab: Notes/Report: [facility] , Troponin I High Sensitivity 6.7 4.0-76.1 pg/mL CUT-OFF POINTS HAVE BEEN ESTABLISHED BASED ON THE FOURTH UNIVERSAL DEFINITION OF MYOCARDIAL INFARCTION. THE UPPER REFERENCE LIMIT (URL) OF TROPONIN, DEFINED THE 99TH PERCENTILE OF cTnI DISTRIBUTION IN A REFERENCE POPULATION, HAS BEEN CONFIRMED THE DECISION THRESHOLD FOR [place] DIAGNOSIS. 99TH PERCENTILE = 76.2 PG/ML NOTE: HIGH-SENSITIVITY TROPONIN ASSAY IS NOT INTENDED TO BE USED IN ISOLATION BUT SHOULD BE INTERPRETED IN CONJUNCTION WITH OTHER DIAGNOSTIC AND CLINICAL INFORMATION. Performing Lab: see note ML - [facility] LB Prothrombin Time INR Reviewed date:06/20/2024 06:06:04 PM Interpretation: Performing Lab: Notes/Report: [facility] , Prothrombin Time 11.7 9.0-11.6 sec INR 1.12 DESIRED INR: 2.0-3.0 CONDITIONS NOT LISTED BELOW 2.5-3.5 FOR PROSTHETIC HEART VALVE REPLACEMENT 2.5-3.5 RECURRENT THROMBOSIS Performing Lab: see note - [facility] LB PROF 14(COMP METB) Reviewed date:06/20/2024 06:06:04 PM Interpretation: Performing Lab: Notes/Report: [facility] , Sodium 140 136-145 mmol/L Potassium 4.1 3.5-5.1 mmol/L Chloride 107 98-107 mmol/L Carbon Dioxide 26.1 21.0-32.0 mmol/L Anion Gap 11.0 Glucose 119 74-106 mg/dL Blood Urea Nitrogen 13.0 7.0-18.0 mg/dL Creatinine 1.29 0.70-1.30 mg/dL Estimated GFR ( Laura >60 >=60 mL/min/1.73m 2 Estimated GFR (Non- Louann 55 >=60 mL/min/1.73m 2 BUN Creatinine Ratio 10.1 Calcium 8.5 8.5-10.1 mg/dL Bilirubin Total 0.4 0.2-1.0 mg/dL Aspartate Amino Transferase 16 15-37 U/L Alanine Aminotransferase 24 16-63 U/L Alkaline Phosphatase 129 46-116 U/L Total Protein 6.7 6.4-8.2 g/dL Albumin Level 3.5 3.4-5.0 g/dL Globulin 3.2 Albumin Globulin Ratio 1.1 Performing Lab: see note ML - [facility] LB LACTATE or LACTIC ACID Reviewed date:06/20/2024 06:06:04 PM Interpretation: Performing Lab: Notes/Report: [facility] , Lactate/Lactic Acid 2.2 0.4-2.0 mmol/L RESULTS CALLED TO CANDELARIO CAMACHO RN @BY Kathleen Rivera at 1605 Performing Lab: see note - [facility] LB BNP Reviewed date:06/20/2024 06:06:04 PM Interpretation: Performing Lab: Notes/Report: [facility] , NT Pro B Type Natriuretic Pept 72.0 <=900.0 pg/mL Performing Lab: see note - [facility] LB PROF CHEM 8 (BAS METB) Reviewed date:03/24/2024 11:43:05 AM Interpretation: Performing Lab: Notes/Report: [facility] , Sodium 133 136-145 mmol/L Potassium 3.9 3.5-5.1 mmol/L Chloride 102 98-107 mmol/L Carbon Dioxide 21.3 21.0-32.0 mmol/L Anion Gap 13.6 Glucose 146 74-106 mg/dL Blood Urea Nitrogen 26.0 7.0-18.0 mg/dL Creatinine 1.32 0.70-1.30 mg/dL Estimated GFR ( Laura >60 >=60 Estimated GFR (Non- Louann 53 >=60 BUN Creatinine Ratio 19.7 Calcium 9.1 8.5-10.1 mg/dL Performing Lab: see note ML - [facility] LB CBC AUTO DIFF Reviewed date:03/24/2024 11:43:05 AM Interpretation: Performing Lab: Notes/Report: [facility] , White Blood Count 15.4 4.0-11.0 10 3/uL Red Blood Count 4.48 4.70-6.10 10 6/uL Hemoglobin 13.7 14.0-18.0 g/dL Hematocrit 41.4 42.0-54.0 % Mean Corpuscular Volume 92.4 80.0-94.0 fL Mean Corpuscular Hemoglobin 30.6 25.9-34.0 pg Mean Corpuscular HGB Conc 33.1 29.9-35.2 g/dL Red Cell Distribution Width 14.6 11.0-15.0 % Platelet Count 337 150-450 10 3/uL Mean Platelet Volume 9.1 9.5-13.5 fL Neutrophils Percent Auto 87.7 43.0-75.0 % Lymphocytes Percent Auto 5.4 20.5-60.0 % Monocytes Percent Auto 6.2 1.7-12.0 % Eosinophils Percent Auto 0.0 0.9-7.0 % Basophils Percent Auto 0.1 0.2-2.0 % Immature Granulocytes Pct Auto 0.6 0.0-0.5 % Neutrophils Absolute Auto 13.5 1.4-6.5 10 3/uL Lymphocytes Absolute Auto 0.8 1.2-3.8 10 3/uL Monocytes Absolute Auto 1.0 0.3-0.8 10 3/uL Eosinophils Absolute Auto 0.0 0.0-0.7 10 3/uL Basophils Absolute Auto 0.0 0.0-0.1 10 3/uL Immature Granulocytes Abs Auto 0.09 0.00-0.03 10 3/uL Performing Lab: see note ML - [facility] LB THEOPHYLLINE Reviewed date:03/24/2024 11:43:05 AM Interpretation: Performing Lab: Notes/Report: [facility] , Theophylline 6.4 10.0-20.0 ug/mL Performing Lab: see note - [facility] LB PROF CHEM 8 (KAELA STONE) Reviewed date:03/24/2024 11:43:05 AM Interpretation: Performing Lab: Notes/Report: [facility] , Sodium 136 136-145 mmol/L Potassium 3.9 3.5-5.1 mmol/L Chloride 103 98-107 mmol/L Carbon Dioxide 19.3 21.0-32.0 mmol/L Anion Gap 17.6 Glucose 155 74-106 mg/dL Blood Urea Nitrogen 18.0 7.0-18.0 mg/dL Creatinine 1.41 0.70-1.30 mg/dL Estimated GFR ( Laura 60 >=60 Estimated GFR (Non- Louann 49 >=60 BUN Creatinine Ratio 12.8 Calcium 9.0 8.5-10.1 mg/dL Performing Lab: see note ML - [facility] LB CBC AUTO DIFF Reviewed date:03/24/2024 11:43:05 AM Interpretation: Performing Lab: Notes/Report: [facility] , White Blood Count 9.7 4.0-11.0 10 3/uL Red Blood Count 5.05 4.70-6.10 10 6/uL Hemoglobin 15.4 14.0-18.0 g/dL Hematocrit 47.2 42.0-54.0 % Mean Corpuscular Volume 93.5 80.0-94.0 fL Mean Corpuscular Hemoglobin 30.5 25.9-34.0 pg Mean Corpuscular HGB Conc 32.6 29.9-35.2 g/dL Red Cell Distribution Width 14.4 11.0-15.0 % Platelet Count 380 150-450 10 3/uL Mean Platelet Volume 9.1 9.5-13.5 fL Neutrophils Percent Auto 90.2 43.0-75.0 % Lymphocytes Percent Auto 8.3 20.5-60.0 % Monocytes Percent Auto 0.9 1.7-12.0 % Eosinophils Percent Auto 0.0 0.9-7.0 % Basophils Percent Auto 0.2 0.2-2.0 % Immature Granulocytes Pct Auto 0.4 0.0-0.5 % Neutrophils Absolute Auto 8.7 1.4-6.5 10 3/uL Lymphocytes Absolute Auto 0.8 1.2-3.8 10 3/uL Monocytes Absolute Auto 0.1 0.3-0.8 10 3/uL Eosinophils Absolute Auto 0.0 0.0-0.7 10 3/uL Basophils Absolute Auto 0.0 0.0-0.1 10 3/uL Immature Granulocytes Abs Auto 0.04 0.00-0.03 10 3/uL Performing Lab: see note ML - [facility] LB BNP Reviewed date:03/24/2024 11:43:06 AM Interpretation: Performing Lab: Notes/Report: [facility] , NT Pro B Type Natriuretic Pept 65.0 <=900.0 pg/mL Performing Lab: see note ML - [facility] LB Troponin I High Sensitivity Reviewed date:03/24/2024 11:43:05 AM Interpretation: Performing Lab: Notes/Report: [facility] , Troponin I High Sensitivity 4.9 4.0-76.1 pg/mL CUT-OFF POINTS HAVE BEEN ESTABLISHED BASED ON THE FOURTH UNIVERSAL DEFINITION OF MYOCARDIAL INFARCTION. THE UPPER REFERENCE LIMIT (URL) OF TROPONIN, DEFINED THE 99TH PERCENTILE OF cTnI DISTRIBUTION IN A REFERENCE POPULATION, HAS BEEN CONFIRMED THE DECISION THRESHOLD FOR [place] DIAGNOSIS. 99TH PERCENTILE = 76.2 PG/ML NOTE: HIGH-SENSITIVITY TROPONIN ASSAY IS NOT INTENDED TO BE USED IN ISOLATION BUT SHOULD BE INTERPRETED IN CONJUNCTION WITH OTHER DIAGNOSTIC AND CLINICAL INFORMATION. Performing Lab: see note ML - [facility] LB XR chest 1V Reviewed date:03/22/2024 05:38:11 PM Interpretation: Performing Lab: Notes/Report: Source Facility: [place] [address] [place] [address] XRay Report Signed Patient: SRINI MENON MR#: [id number] : 1950 Acct:[id number] Age/Sex: 73 / M ADM Date: 03/22/24 Loc: ER Attending Dr: Ordering Physician: Shaye Barajas Date of Service: 03/22/24 Procedure(s): XR chest 1V Accession Number(s): [id number] cc: Dez Bhagat M.D.; Shaye Barajas [place] [address] Patient Name: SRINI MENON MRN: [facility]:[id number] date: 1950 Sex: M Assigned Patient Location: ER Current Patient Location: ER Accession/Order Number: [id number] Exam Date: 03/22/2024 14:55 Report Date: 03/22/2024 15:14 At the request of: SHAYE BARAJAS Procedure: XR chest 1V EXAMINATION: XR chest 1V HISTORY: Shortness of breath COMPARISON: XR chest 12/07/2023 FINDINGS: LUNGS: Hyperexpanded lungs. No appreciable infiltrates. VASCULATURE: No increased pulmonary vasculature. PLEURA: No pneumothorax, effusion, or pleural thickening. CARDIAC: No cardiomegaly or cardiac silhouette abnormality. MEDIASTINUM: No visible mass or adenopathy. BONES: No fracture or visible bone lesion. OTHER: Negative. XR/XR chest 1V IMPRESSION: 1. No acute cardiopulmonary process. Stable chest. Electronically authenticated by: TRISTON JAY Date: 03/22/2024 15:14 Dictated By: Triston Jay M.D. Signed By: 03/22/24 1517 DD/ 13 TD/TT: Automatic Coil Machine Operator: [place] [address] XRay Report Signed Patient: BEST MENON MR#: [id number] : 1950 Acct:[id number] Age/Sex: 73 / M ADM Date: 03/22/24 Loc: ER Attending Dr: Ordering Physician: Shaye Barajas Date of Service: 03/22/24 Procedure(s): XR chest 1V Accession Number(s): [id number] cc: Dez Bhagat M.D. ; Shaye Barajas [place] [id number] Patient Name: SRINI MENON MRN: [id number] date: 1950 Sex: M Assigned Patient Location: ER Current Patient Loca tion: ER Accession/Order Numb er: [id number] Exam Date: 03/22/2024 14:55 Report Date: 03/22/2024 15:14 At the request of: SHAYE BARAJAS Procedure: XR chest 1V EXAMINATION: XR chest 1V HISTORY: Shortness o f breath COMPARISON: XR chest 12/07/2023 FINDINGS: LUNGS: Hyperexpanded lungs. No appreciable infiltrates. VASCULATURE: No incr eased pulmonary vasculature. PLEURA: No pneumotho rax, effusion, or pleural thickening. CARDIAC: No cardiome gorge or cardiac silhouette abnormality. MEDIASTINUM: No visi ble mass or adenopathy. BONES: No fracture o r visible bone lesion. OTHER: Negative. X R/XR chest 1V IMPRESSION: 1. No acute cardiopulmonary process. Stable chest. Electronically authenticated by: TRISTON JAY Date: 03/22/2024 15:14 Dictated By: Triston Jay M.D. Signed By: 03/22/24 1517 DD/ 1514 TD/TT: Automatic Coil Machine Operator: SARS-CoV-2 Ag* Reviewed date:03/24/2024 11:43:06 AM Interpretation: Performing Lab: Notes/Report: [facility] , SARS-CoV-2 Ag NEGATIVE NEGATIVE This test has not been FDA cleared [...] is terminated or authorization is revoked sooner. Performing Lab: see note ML - [facility] Troponin I High Sensitivity Reviewed date:03/22/2024 05:38:11 PM Interpretation: Performing Lab: Notes/Report: [facility] , Troponin I High Sensitivity 5.5 4.0-76.1 pg/mL CUT-OFF POINTS HAVE BEEN ESTABLISHED BASED ON THE FOURTH UNIVERSAL DEFINITION OF MYOCARDIAL INFARCTION. THE UPPER REFERENCE LIMIT (URL) OF TROPONIN, DEFINED THE 99TH PERCENTILE OF cTnI DISTRIBUTION IN A REFERENCE POPULATION, HAS BEEN CONFIRMED THE DECISION THRESHOLD FOR [place] DIAGNOSIS. 99TH PERCENTILE = 76.2 PG/ML NOTE: HIGH-SENSITIVITY TROPONIN ASSAY IS NOT INTENDED TO BE USED IN ISOLATION BUT SHOULD BE INTERPRETED IN CONJUNCTION WITH OTHER DIAGNOSTIC AND CLINICAL INFORMATION. Performing Lab: see note ML - [facility] LB Prothrombin Time INR Reviewed date:03/22/2024 05:38:11 PM Interpretation: Performing Lab: Notes/Report: [facility] , Prothrombin Time 12.2 9.0-11.6 sec INR 1.17 DESIRED INR: 2.0-3.0 CONDITIONS NOT LISTED BELOW 2.5-3.5 FOR PROSTHETIC HEART VALVE REPLACEMENT 2.5-3.5 RECURRENT THROMBOSIS Performing Lab: see note ML - [facility] THEOPHYLLINE Reviewed date:03/24/2024 11:43:06 AM Interpretation: Performing Lab: Notes/Report: [facility] , Theophylline 6.7 10.0-20.0 ug/mL Performing Lab: see note ML - [facility] LB PTT Reviewed date:03/22/2024 05:38:11 PM Interpretation: Performing Lab: Notes/Report: [facility] , Partial Thromboplastin Time 30.5 22.3-36.2 sec Performing Lab: see note - [facility] LB PROF 14(COMP METB) Reviewed date:03/22/2024 05:38:11 PM Interpretation: Performing Lab: Notes/Report: [facility] , Sodium 138 136-145 mmol/L Potassium 3.9 3.5-5.1 mmol/L Chloride 104 98-107 mmol/L Carbon Dioxide 27.9 21.0-32.0 mmol/L Anion Gap 10.0 Glucose 101 74-106 mg/dL Blood Urea Nitrogen 14.0 7.0-18.0 mg/dL Creatinine 1.00 0.70-1.30 mg/dL Estimated GFR ( Laura >60 >=60 Estimated GFR (Non- Louann >60 >=60 BUN Creatinine Ratio 14.0 Calcium 8.8 8.5-10.1 mg/dL Bilirubin Total 0.3 0.2-1.0 mg/dL Aspartate Amino Transferase 12 15-37 U/L Alanine Aminotransferase 20 16-63 U/L Alkaline Phosphatase 134 46-116 U/L Total Protein 6.9 6.4-8.2 g/dL Albumin Level 3.5 3.4-5.0 g/dL Globulin 3.4 Albumin Globulin Ratio 1.0 Performing Lab: see note ML - [facility] LB LACTATE or LACTIC ACID Reviewed date:03/22/2024 05:38:11 PM Interpretation: Performing Lab: Notes/Report: [facility] , Lactate/Lactic Acid 1.1 0.4-2.0 mmol/L Performing Lab: see note ML - [facility] LB INFLUENZA A AND B AG Reviewed date:03/24/2024 11:43:06 AM Interpretation: Performing Lab: Notes/Report: [facility] , Influenza Virus A Antigen Negative Negative for Flu A protein antigen. Infection due to Flu A cannot be ruled out. Flu A antigen in the sample may be below the detection limit of the test. Influenza Virus B Antigen Negative Negative for Flu B protein antigen. Infection due to Flu B cannot be ruled out. Flu B antigen in the sample may be below the detection limit of the test. Performing Lab: see note ML - [facility] LB CBC AUTO DIFF Reviewed date:03/22/2024 05:38:11 PM Interpretation: Performing Lab: Notes/Report: [facility] , White Blood Count 7.3 4.0-11.0 10 3/uL Red Blood Count 4.91 4.70-6.10 10 6/uL Hemoglobin 14.9 14.0-18.0 g/dL Hematocrit 45.4 42.0-54.0 % Mean Corpuscular Volume 92.5 80.0-94.0 fL Mean Corpuscular Hemoglobin 30.3 25.9-34.0 pg Mean Corpuscular HGB Conc 32.8 29.9-35.2 g/dL Red Cell Distribution Width 14.3 11.0-15.0 % Platelet Count 345 150-450 10 3/uL Mean Platelet Volume 9.0 9.5-13.5 fL Neutrophils Percent Auto 57.6 43.0-75.0 % Lymphocytes Percent Auto 25.2 20.5-60.0 % Monocytes Percent Auto 10.8 1.7-12.0 % Eosinophils Percent Auto 5.0 0.9-7.0 % Basophils Percent Auto 1.0 0.2-2.0 % Immature Granulocytes Pct Auto 0.4 0.0-0.5 % Neutrophils Absolute Auto 4.2 1.4-6.5 10 3/uL Lymphocytes Absolute Auto 1.9 1.2-3.8 10 3/uL Monocytes Absolute Auto 0.8 0.3-0.8 10 3/uL Eosinophils Absolute Auto 0.4 0.0-0.7 10 3/uL Basophils Absolute Auto 0.1 0.0-0.1 10 3/uL Immature Granulocytes Abs Auto 0.03 0.00-0.03 10 3/uL Performing Lab: see note - [facility] LB BNP Reviewed date:03/22/2024 05:38:11 PM Interpretation: Performing Lab: Notes/Report: [facility] , NT Pro B Type Natriuretic Pept 62.0 <=900.0 pg/mL Performing Lab: see note ML - [facility] LB US soft tissue head and neck Reviewed date:09/22/2024 04:11:47 PM Interpretation: Performing Lab: Notes/Report: Source Facility: [facility]-[address] [place] [address] [place] [address] Ultrasound Report Signed Patient: SRINI MENON MR#: [id number] : 1950 Acct:[id number] Age/Sex: 74 / M ADM Date: 09/20/24 Loc: US Attending Dr: Dez Bahgat M.D. Ordering Physician: Dez Bhagat M.D. Date of Service: 09/20/24 Procedure(s): US soft tissue head and neck Accession Number(s): [id number] cc: Dez Bhagat M.D. [place] [id number] Patient Name: SRINI MENON MRN: [id number] date: 1950 Sex: M Assigned Patient Location: US Current Patient Location: US Accession/Order Number: [id number] Exam Date: 09/20/2024 16:57 Report Date: 09/20/2024 16:59 At the request of: DEZ BHAGAT MD Procedure: US soft tissue head and neck Soft tissue ultrasound. Reason for exam: Lumps both sides of neck. COMPARISON: None. FINDINGS: In the areas of concern involving the neck, benign-appearing lymph nodes are noted largest measuring 1.3 x 0.4 x 1.2 cm involving the right neck and 1.4 x 0.5 x 0.9 cm involving the left neck. No solid mass or fluid collection is seen. US/US soft tissue head and neck IMPRESSION: An area of concern involving the neck, benign-appearing lymph nodes are noted. Finding is nonspecific and is likely reactive. Impression dictated by: Jose Guadalupe Alvarado Jr., D.O.09/20/2024 4:59 PM Dictation Location: [place] [address] Electronically authenticated by: [id number] Y Date: 09/20/2024 16:59 Dictated By: Jose Guadalupe Alvarado M.D. Signed By: 09/20/24 1701 DD/ 1659 TD/TT: Automatic Coil Machine Operator: The [place] [id number] Ultrasound Report Signed Patient: BEST MENON MR#: [id number] : 1950 Acct:[id number] Age/Sex: 74 / M ADM Date: 09/20/24 Loc: US Attending Dr: Jerrod Bhagat M.D. Ordering Physician: Dez Bhagat M.D. Date of Service: 09/20/24 Procedure(s): US sof t tissue head and neck Accession Number(s): [id number] cc: Dez Bhagat M.D. [place] [address] Patient Name: SRINI MENON MRN: [id number] date: 1950 Sex: M Assigned Patient Location: US Current Patient Loca tion: US Accession/Order Numb er: [id number] Exam Date: 09/20/2024 16:57 Report Date: 09/20/2024 16:59 At the request of: DEZ BHAGAT MD Procedure: US soft t issue head and neck Soft tissue ultrasound. Reason for exam: Lum ps both sides of neck. COMPARISON: None. FINDINGS: In the are as of concern involving the neck, benign-appearing lymph nodes are noted larg est measuring 1.3 x 0.4 x 1.2 cm involving the right neck and 1.4 x 0.5 x 0.9 cm involving the left neck. No solid mass or fluid collection is seen. U S/US soft tissue head and neck IMPRESSION: An area of concern involving the neck, benign-appearing lymph nodes are noted. Fin ding is nonspecific and is likely reactive. Impression dictated by: Jose Guadalupe Alvarado Jr., D.O.09/20/2024 4:59 PM Dictation Location: [place] [address] Electronically authenticated by: [id number] Y Date: 09/20/2024 16:59 Dictated By: Jose Guadalupe Alvarado M.D. Signed By: 09/20/24 170 DD/ 165 TD/TT: Automatic Coil Machine Operator: XR chest 2V Reviewed date:10/15/2024 08:32:36 PM Interpretation: Performing Lab: Notes/Report: Source Facility: [facility] [place] [address] [place] [address] XRay Report Signed Patient: SRINI MENON MR#: [id number] : 1950 Acct:[id number] Age/Sex: 74 / M ADM Date: 10/15/24 Loc: PST Attending Dr: Paul Reyes M.D. Ordering Physician: Paul Reyes M.D. Date of Service: 10/15/24 Procedure(s): XR chest 2V Accession Number(s): [id number] cc: Dez Bhagat M.D.; Paul Reyes M.D. [address] [id number] Patient Name: SRINI MENON MRN: [id number] date: 1950 Sex: M Assigned Patient Location: SURGOUT Current Patient Location: [facility] Accession/Order Number: [id number] Exam Date: 10/15/2024 15:39 Report Date: 10/15/2024 15:43 At the request of: PAUL REYES MD Procedure: XR chest 2V Plain film chest 2 view HISTORY: Presurgical testing. Cough and shortness of breath COMPARISON: 06/20/2024 FINDINGS: SUPPORT DEVICES: None POSTSURGICAL CHANGES: None HEART: Within normal limits PULMONARY SÁNCHEZ: Within normal limits MEDIASTINUM: Unremarkable LUNGS AND PLEURA: No acute lung process, pleural effusion or pneumothorax identified. BONY STRUCTURES: Intact ADDITIONAL FINDINGS None XR/XR chest 2V IMPRESSION: No acute process. Impression dictated by: Ha Duckworth M.D.10/15/2024 3:43 PM Dictation Location: [place] [address] Electronically authenticated by: [id number] Y Date: 10/15/2024 15:43 Dictated By: Ha Duckworth D.O. Signed By: 10/15/24 1546 DD/ 1543 TD/TT: Automatic Coil Machine Operator: [place] [address] XRay Report Signed Patient: BEST MENON MR#: [id number] : 1950 Acct:[id number] Age/Sex: 74 / M ADM Date: 10/15/24 Loc: [facility] Attending Dr: Kandis Reyes M.D. Ordering Physician: Paul Reyes M.D. Date of Service: 10/15/24 Procedure(s): XR chest 2V Accession Number(s): [id number] cc: Dez Bhagat M.D. ; Paul Reyes M.D. [address] [id number] Patient Name: SRINI MENON MRN: [id number] date: 1950 Sex: M Assigned Patient Location: SURGOUT Current Patient Loca tion: [facility] Accession/Order Numb er: [id number] Exam Date: 10/15/2024 15:39 Report Date: 10/15/2024 15:43 At the request of: PAUL REYES MD Procedure: XR chest 2V Plain film chest 2 view HISTORY: Presurgical testing. Cough and shortness of breath COMPARISON: 06/20/2024 FINDINGS: SUPPORT DEVICES: None POSTSURGICAL CHANGES : None HEART: Within normal limits PULMONARY SÁNCHEZ: With in normal limits MEDIASTINUM: Unremarkable LUNGS AND PLEURA: No acute lung process, pleural effusion or pneumothorax identified. BONY STRUCTURES: Intact ADDITIONAL FINDINGS None X R/XR chest 2V IMPRESSION: No acute process. Impression dictated by: Ha Duckworth M.D.10/15/2024 3:43 PM Dictation Location: [place] [address] Electronically authenticated by: [id number] Y Date: 10/15/2024 15:43 Dictated By: [place] Duckworth D.O. Signed By: 10/15/24 1546 DD/ 1543 TD/TT: Automatic Coil Machine Operator: Prothrombin Time INR Reviewed date:10/15/2024 08:32:36 PM Interpretation: Performing Lab: Notes/Report: [facility] , Prothrombin Time 11.5 9.0-11.6 sec INR 1.09 DESIRED INR: 2.0-3.0 CONDITIONS NOT LISTED BELOW 2.5-3.5 FOR PROSTHETIC HEART VALVE REPLACEMENT 2.5-3.5 RECURRENT THROMBOSIS Performing Lab: see note ML - [facility] LB PTT Reviewed date:10/15/2024 08:32:36 PM Interpretation: Performing Lab: Notes/Report: [facility] , Partial Thromboplastin Time 27.0 22.3-36.2 sec Performing Lab: see note ML - [facility] LB PROF CHEM 8 (BAS METB) Reviewed date:10/15/2024 08:32:36 PM Interpretation: Performing Lab: Notes/Report: [facility] , Sodium 144 136-145 mmol/L Potassium 4.4 3.5-5.1 mmol/L Chloride 107 98-107 mmol/L Carbon Dioxide 29.6 21.0-32.0 mmol/L Anion Gap 11.8 Glucose 86 74-106 mg/dL Blood Urea Nitrogen 14.0 7.0-18.0 mg/dL Creatinine 1.10 0.70-1.30 mg/dL Estimated GFR ( Laura >60 >=60 mL/min/1.73m 2 Estimated GFR (Non- Louann >60 >=60 mL/min/1.73m 2 BUN Creatinine Ratio 12.7 Calcium 8.9 8.5-10.1 mg/dL Performing Lab: see note ML - [facility] LB ECG 12 lead Reviewed date:03/26/2024 09:14:29 AM Interpretation: Performing Lab: Notes/Report: Source Facility: [facility]-[address] [place] [address] Electrocardiograph Report Signed Patient: SRINI MENON MR#: [id number] : 1950 Acct:[id number] Age/Sex: 73 / M ADM Date: 03/22/24 Loc: [place] 218-[address]: Dez Bhagat M.D. 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 Signed By: 09/2252 DD/ 1438 TD/TT: Automatic Coil Machine Operator: The [place] [id number] Electrocardiograph Report Signed Patient: BEST MENON MR#: [id number] : 1950 Acct:[id number] Age/Sex: 73 / M ADM Date: 03/22/24 Loc: [place] 218-[address]: Jerrod Bhagat M.D. Ordering Physician: Shaye Barajas Date of Service: 03/22/24 Procedure(s): ECG 12 lead Accession Number(s): [id number] cc: 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 Signed By: 03/25/242252 DD/ 1438 TD/TT: Automatic Coil Machine Operator: Reason For Referral Reason colonoscopy Diagnosis 1 Rectal bleed (K62.5) Referral Organization [facility] Medicine Referring Provider First Name Micha Referring Provider Last Name Leola Referring Provider Speciality Family Med venita Referred Provider Paul Reyes Referred Provider Specialty General Surg eleazar Referral Priority Routine Medications Medication SIG (Take, Route, Frequency, Duration) Notes Start Date End Date Status Roflumilast 500 MCG 1 tablet Orally Once a day Active Protonix 40 MG 1 tablet Orally Once a day for 30 days 03/29/2024 Active Albuterol Sulfate (2.5 MG/3ML) 0.083% 3 mL as needed Inhalation dx J44.9 every 6 hrs for 30 days Active Albuterol Sulfate HFA 108 (90 Base) MCG/ACT 1 puff as needed Inhalation every 4 hrs for 30 days PRN Active Cefdinir 300 MG 2 capsule Orally onc e a day for 10 days 09/18/2024 Active Social History Tobacco Use: Social History Observation Description Date Details (start date - stop date) Current Smoker NA - NA Tobacco Use/Smoking Question Answer Notes Patient is a current smoker How often do you smoke cigarettes? every day How many cigarettes a day do you smoke? 21-30 How soon after you wake up do you smoke your fir st cigarette? within 5 minutes Are you interested in quitting? Ready to quit Additional Findings: Tobacco User Chain smoker Alcohol Screen (Audit-C) Question Answer Notes Did you have a drink containing alcohol in the p ast year? No Points 0 Interpretation Negative AUDIT-C (Standard) Question Answer Notes Did you have a drink containing alcohol in the p ast year? 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 Problem COPD - Chronic obstructive pulmonary disease (57235890) COPD (chronic obstructive pulmonary disease) (J44.9) Active confirmed Problem Carotid artery disease (494314541) Carotid artery disease (I77.9) Active confirmed Problem Bradycardia (17438922) Bradycardia (R00.1) Active confirmed Problem Arthritis (7986854) Arthritis (M19.90) Active confirmed Problem Dyspnea (358403337) Dyspnea (R06.00) Active confirmed Problem Chronic bronchitis (80452836) Chronic bronchitis (J42) Active confirmed Problem Acute exacerbation of chronic obstructive airways disease (095169585) COPD exacerbation (J44.1) Active confirmed Problem Pulmonary emphysema (88919659) Emphysema lung (J43.9) Active confirmed Problem Dysphagia (05712176) Dysphagia (R13.10) Active confirmed Problem Mass of neck (939370802) Neck mass (R22.1) Active confirmed Problem Overweight (082447325) Over weight (E66.3) Active confirmed Problem Iron deficiency anemia (18593230) Anemia, iron deficiency (D50.9) Active confirmed Problem Acute exacerbation of chronic obstructive airways disease (517235672) Acute exacerbation of chronic obstructive airways disease (J44.1) Active confirmed Problem Emphysema (08803026) Emphysema (J43.9) Active confirmed Problem Paroxysmal ventricular tachycardia (disorder) (78495818) Ventricular tachycardia (paroxysmal) (I47.29) Active confirmed Vital Signs Blood pressure diastolic 82 mm Hg 09/18/2024 Height 70 in 09/18/2024 Blood pressure systolic 132 mm Hg 09/18/2024 Weight 204.4 lbs 09/18/2024 BMI 29.33 kg/m2 09/18/2024 Encounters Encounter Location Date Provider Diagnosis [address] [address] 03/29/2024 Micha Hoy COPD (chronic obstructive pulmonary disease) J44.[address] [address] 04/03/2024 Micha Hoy Chronic obstructive pulmonary disease, unspecified J44.9 and Acute exacerbation of chronic obstructive airways disease J44.[address] [address] 07/03/2024 Micha Hoy Chronic obstructive pulmonary disease, unspecified J44.9 ; COPD (chronic obstructive pulmonary disease) J44.9 ; Neck mass R22.1 and Acute bronchitis J20.[address] [address] 09/18/2024 Micha Hoy Chronic obstructive pulmonary disease, unspecified J44.9 ; Neck mass R22.1 and Rectal bleed K62.[address] [address] 12/04/2023 DEZ HOY COPD (chronic obstructive pulmonary disease) J44.[address] [address] 03/25/2024 Micha Tenorioy [address] [address] 04/08/2024 Micha Hoy COPD (chronic obstructive pulmonary disease) J44.[address] [address] 05/06/2024 Micha Hoy [place] [address] [place] [facility] [place] [place] [address] 06/20/2024 Micha Bhagat [facility] [address] [place] [place] [place] [address] 06/20/2024 Micha Bhagat [facility] [address] [facility] [address] [facility] [place] [address] 07/04/2024 Micha Bhagat [facility] [address] [place] [facility] [place] [address] 07/09/2024 Micha Bhagat Neck mass R22.1 [facility] [address] [place] [facility] [place] [place] [address] 09/18/2024 Micha aravind [facility] [address] [place] [facility] [place] [place] [address] 09/22/2024 Micha Bhagat [facility] [address] [facility] [address] [facility] [place] [address] 11/15/2024 Micha Bhagat Anemia, iron deficie ncy D50.9 and Rectal bleeding K62.5 Assessments Encounter Date Diagnosis (ICD Code) Assessment Notes Treatment Notes Treatment Clinical Notes Section Notes 12/04/2023 COPD (chronic obstructive pulmonary disease) (ICD-10 - J44.9) 04/08/2024 COPD (chronic obstructive pulmonary disease) (ICD-10 - J44.9) 07/09/2024 Neck mass (ICD-10 - R22.1) 11/15/2024 Anemia, iron deficiency (ICD-10 - D50.9) 11/15/2024 Rectal bleeding (ICD-10 - K62.5) 03/29/2024 COPD (chronic obstructive pulmonary disease) (ICD-10 - J44.9) 04/03/2024 Chronic obstructive pulmonary disease, unspecified (ICD-10 - J44.9) see information in HPI for detailed discussion with physician reviewer 04/03/2024 Acute exacerbation of chronic obstructive airways disease (ICD-10 - J44.1) see information in HPI for detailed discussion with physician reviewer 07/03/2024 Chronic obstructive pulmonary disease, unspecified (ICD-10 - J44.9) 07/03/2024 COPD (chronic obstructive pulmonary disease) (ICD-10 - J44.9) 09/18/2024 Chronic obstructive pulmonary disease, unspecified (ICD-10 - J44.9) 09/18/2024 Neck mass (ICD-10 - R22.1) 09/18/2024 Rectal bleed (ICD-10 - K62.5) 07/03/2024 Neck mass (ICD-10 - R22.1) 07/03/2024 Acute bronchitis (ICD-10 - J20.9) Plan Of Treatment Pending Test Test Name Order Date Pulmonary Function Test 12/17/2022 CMP (COMPLETE METABOLIC PANEL) 3 HEMOGLOBIN A1C (GLYCO) 06/02/2023 INSULIN, TOTAL 06/02/2023 LIPID PANEL (CHOL/TRIG/HDL/LDL) 06/02/20 23 CBC WITH DIFF 06/02/2023 PSA, PROSTATE-SPECIFIC ANTIGEN 3 US Soft Tissue Neck/Head 03/22/2023 CARDIO Stress Test - Lexiscan Nuclear STOOL OCCULT BLOOD 06/02/2023 CT ABD and PELV W CON 11/15/[address] W CON 07/09/[address] W CON 04/27/[address] WO CON 07/03/2024 THYROID PANEL (T4/TSH/FREE T3) 3 Holter Monitor - 3 days up to 14 days Insurance Providers Payer Name Payer Address Payer Phone Subscriber Number Group Number Insured Name Patient Relationship to Insured Coverage Start Date Coverage End Date [facility] [employer] HMO [address] [place] [address] [id number] Srini Menon Self - patient is the insured 3 Medications Administered Medication Instructions Date of Administration Dosage Notes Ceftriaxone 1 gram 06/02/2023 1 g Dexamethasone, 4mg/mL 10/13/2023 8 mg Dexamethasone, 4mg/mL 07/03/2024 12 mg Kenalog-40 06/02/2023 120 mg Medical (General) History Medical History History ICD Code Over weight E66.3 COPD (chronic obstructive pulmonary dise ase) J44.9 Chronic obstructive pulmonary disease, u nspecified J44.9 Emphysema J43.9 Arthritis M19.90 Dysphagia R13.10 Carotid artery disease I77.9 Surgical History Surgery Date(Month/Year) Ear Surgery Vasectomy cardiac catherization Hospitalization History Reason Date(Month/Year) COPD 03/2023 copd 2022
--- OUTSIDE RECORDS SUMMARY | 2024-11-25 07:37 | XMS_ITS | Clinical Summary ---
Author Organization [facility] Address [address] [place] [address] Care Team Providers Care Retail Experience Specialist Name Role Phone John Bhagat MD Primary Care Provider [phone] Allergies Active Allergy Reactions Criticality Noted Date Comments Ascorbate Hives 08/27/2007 Large doses per pt Ketorolac Nausea and Vomiting Medium 08/26/2013 nausea vomiting Metoprolol Nausea and Vomiting,Dizzy/Vertigo 07/04/2024 Prednisone 08/27/2007 ALL STEROIDS Other reaction(s): Intolerance Cardiac reaction per pt Medications albuterol (2.5 MG/3ML) 0.083% inhalation solution Take 3 mL by nebulization every 6 hours as needed for Shortness of Breath. Active albuterol 108 (90 Base) MCG/ACT Aero Soln inhaler Inhale 1 puff every 6 hours as needed for Shortness of Breath. Active mometasone Furo-Formoterol Fum 200-5 MCG/puff Aerosol Inhale 2 puffs every 12 hours. Active theophylline 300 MG Tab SR 12 HR TAKE 1 TABLET BY MOUTH TWICE DAILY GIVE ON AN EMPTY STOMACH. DO NOT CRUSH OR CHEW 08/16/19 23 Active Ondansetron 4 MG Tab Dispersible tablet Take 1 tablet by mouth every [address]. [address] on tongue 14 tablet 04/06/20 24 Active Amoxicillin-clav ulanate 875-125 MG tablet Take 1 tablet by mouth 2 times daily. 07/04/19 25 Active SPACER FOR INHALER PRESCRIPTIONIndi cations:Chronic obstructive pulmonary disease, unspecified COPD type,Reactive airway disease without complication, unspecified asthma severity, unspecified whether persistent Use with inhaler as directed 1 Each 07/08/19 25 Active Additional Information Patient not taking.Reported on 11/05/2024 fluticasone-umec lidin-Vilant (Trelegy Ellipta) 100-62.5-25 MCG/ACT Aerosol Powder, breath activated inhalerIndicatio ns:Chronic obstructive pulmonary disease, unspecified COPD type Inhale 1 puff daily. 28 Each 07/08/19 Active Additional Information Patient not taking.Reported on 11/05/2024 budesonide-glyco pyrrolate-Formot ronald (Breztri Aerosphere) 160-9-4.8 MCG/ACT Aerosol inhalerIndicatio ns:Chronic obstructive pulmonary disease, unspecified COPD type Inhale 2 puffs 2 times daily. GARGLE, RINSE MOUTH AFTER USE 10.7 g 07/08/19 Active formoterol (Perforomist) 20 MCG/2ML Nebu Soln nebulizer solutionIndicati ons:Chronic obstructive pulmonary disease, unspecified COPD type Take 2 mL by nebulization 2 times daily. 120 mL 07/08/19 026 Active Ipratropium-albu terol 0.5-2.5 (3) MG/3ML nebulizer solutionIndicati ons:Chronic obstructive pulmonary disease, unspecified COPD type Take 3 mL by nebulization every 4 hours as needed for Wheezing, Shortness of Breath, Breathing Treatment or Cough. 300 mL 07/08/19 026 Active budesonide 0.5 MG/2ML nebulizer suspensionIndica tions:Chronic obstructive pulmonary disease, unspecified COPD type Inhale 2 mL 2 times daily. 120 mL 07/08/19 026 Active SPACER FOR INHALER PRESCRIPTIONIndi cations:Chronic obstructive pulmonary disease, unspecified COPD type,Reactive airway disease without complication, unspecified asthma severity, unspecified whether persistent Use with inhaler as directed 1 Each 07/08/19 Active Additional Information Patient not taking.Reported on 11/05/2024 roflumilast (Daliresp) 500 MCG tabletIndication s:Chronic obstructive pulmonary disease, unspecified COPD type Take 1 tablet by mouth daily. TAKE 1 TABLET EVERY OTHER DAY FOR 2 WEEKS, THEN 1 TABLET DAILY 30 tablet 07/08/19 026 Active Ensifentrine 3 MG/2.5ML SuspensionIndica tions:Chronic obstructive pulmonary disease, unspecified COPD type,Asthma-COPD overlap syndrome Inhale 3 mg every 12 hours. 150 mL 11 11/06/19 25 026 Active dexAMETHasone 4 MG tabletIndication s:Chronic obstructive pulmonary disease, unspecified COPD type,Severe persistent asthma without complication,Eos inophilic asthma,Asthma-CO PD overlap syndrome,COPD exacerbation Take 1 tablet by mouth 2 times daily for 7 days. 14 tablet 11/06/19 25 025 Active Problems Problem Noted Date Diagnosed Date Severe persistent asthma without complication Assessment & Plan (11/05/2024 2:59 PM EDT): May have Asthma COPD overlap ACO; See COPD txs - consider Biologics, if feasible. 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 - consider Biologics; if feasible Encounter for pre-operative respiratory clearanc e 11/05/2024 Assessment & Plan (11/05/2024 3:58 PM EDT): - Pt cleared for surgery from a pulmonary standpoint (for Colonoscopy per Dr. Khanh Reyes ([facility]). - [facility] Preoperative Pulmonary Risk Index score: A. 11 (surgery < 2 hours); Low risk - 1.6% postoperative pulmonary complication rate B. 27 or 34 (surgery 2-3 or >3 hours); Intermediate risk - 13.3% postoperative pulmonary complication rate. - Pt is at Increased risk for postoperative pulmonary complications, but not absolutely prohibitive (eg, atelectasis, pneumonia, exacerbation of lung disease, DVT/PE, resp. insufficiency/failure, among others). - defer to drapery rod assembler and surgeon optimal choice of anesthesia plan - Smoking abstinence strongly recommended - O2 prn to keep spO2 above 92% - may use Noninvasive ventilation or NIV or Bipap prn sleep apnea, resp. distress/insufficiency; as tolerated. - MOON risk: use CPAP (or Bipap) during sleep prn, as much as feasible - pain control prn; but minimize/avoid respiratory depressants/narcotics/sedatives as much as feasible - optimize volume status, avoiding fluid overload; gentle diuresis when necessary - continue inhalers - course of steroids prn, for bronchospasm - Albuterol/Ipratropium nebulized treatments Q4-6 hrs prn - Chest PT: Incentive Spirometry, Deep Breathing/Coughing, early mobilization, as indicated - DVT prophylaxis, as indicated - suggest inpatient Pulmonary/Critical Care consultation, if necessary - discussed w/ pt and at length; questions answered; stated understanding Vocal cord dysfunction 11/05/2024 Assessment & Plan (11/05/2024 4:11 PM EDT): May have element VCD, PVFD; ENT ffup prn; refer to [employer] [employer] [facility]. Secondary pulmonary arterial hypertension 2024 Assessment & Plan (07/08/2024 2:12 PM EST): May develop secondary Pulmonary Hypertension related to cardiopulmonary disease (WHO Grp 3, 2). - monitor Echocardiogram as indicated - consider RHC Right heart catheterization, as indicated - optimize underlying conditions - consider sleep study, as indicated - also seen by Cardiol. prev. Pulmonary scarring 07/08/2024 Assessment & Plan (11/05/2024 3:01 PM EDT): Chest radiograph w/ some increased lung markings; possible element of Interstitial lung disease ILD, likely mild focal postinflammatory scarring; and poss mild RB- ILD smoking-related - 08/15/2024 CT Chest w/o contrast reviewed: New tiny, faint few micronodules in Left lower lobe LLL - New from 08/23/23; likely mild inflammation, possible infection Bronchiolitis. No new suspicious lung nodules or enlarged lymph nodes. Old minimal lung scarring Right lower lobe - Stable. No significant generalized lung scarring or inflammation (NO diffuse ILD, GGOs, pulmonary fibrosis or definite UIP pattern). - incidental finding of heart coronary artery calcification related to age, cholesterol or atherosclerosis, smoking: routine follow-up w/ PCP about these. --- take course of antibiotic Azithromycin (No Prednisone - cancelled); ordered --- close follow-up CT in 3 months to monitor, 11/12/24 - CT Chest - Smoking abstinence strongly recommended; steroids prn, as indic. - monitor chest imaging, PFT, 6mwt prn, as indic - further evaluation, management pending results, clinical course. Assessment & Plan (07/08/2024 2:09 PM EST): Chest radiograph w/ some increased lung markings; possible element of Interstitial lung disease ILD, likely mild focal postinflammatory scarring - CT Chest - monitor chest imaging, PFT, 6mwt prn, as indic - further evaluation, management pending results, clinical course. Asthma-COPD overlap syndrome 07/08/2024 Assessment & Plan (11/05/2024 3:08 PM EDT): - Smoker; hx of COPD; episodic dyspnea, trejo, occ wheezing/cough; hx of bronchitis and PNA prev.; as per records; was on Albuterol inh and neb., Dulera, Theophylline prev. - 08/14/2024 PFT: - Spirometry - SEVERE OBSTRUCTION; FEV1/FVC 56%, FEV1 1.58L 46% predicted, FVC 2.83L 61% predicted; w/ reduced SMALL AIRWAY flow. - Significant increase/response to bronchodilator: LARGE response during this testing, as seen w/ Asthma, RAD (FEF 25-75% increased by 28%, FEV1 by 26%). - Lung Volume - NORMAL TLC 7.16L 103% predicted, RV 4.48L 164% predicted - w/ AIR TRAPPING. - Diffusing Capacity: NORMAL DLCO 83% predicted, DL/VA 113%. - Flow Volume Loops - Obstructive pattern; No overt upper airway obstruction pattern. - 07/08/2024 Alpha 1 Antitrypsin enzyme level 171 mg/dL Normal. - 07/08/2024 IgE antibody 55 Normal. - 07/08/2024 Mini-Panel, Mold Allergens (Allergy tests): Negative - 07/08/2024 CBC Satisfactory, EOS 400. - Consider LAMA/LABA or try triple tx Trelegy, Breztri, or other inhaler regimen, as indic; if feasible/needed; albuterol as needed; use spacer - cont triple tx Breztri or other txs; consider Biologics, Ensifentrin, if feasible. - consider Daliresp subseq as indic., as tolerated; if feasible - may also use duonebs; budesonide+formoterol nebs alternatively - patient benefits from nebulizer treatments - Inhaler technique teaching done/reviewed prev.; rinse mouth after inhaler use, especially steroid inhalers - Smoking abstinence reinforced - advised OTC Calcium+Vit D, lifestyle recs for osteoporosis prevention, especially if on frequent or long-term systemic steroids (osteoporosis screening/management as per PCP prn, as indic) - monitor PFT prn, as indicated - monitor imaging prn, Chest radiograph as needed (CT Chest as indicated) - Pulmonary rehab program, if feasible; rec to stay active (referred) - Influenza, pneumococcal, COVID19, pulmonary vaccines recommended, updated Assessment & Plan (07/08/2024 2:11 PM EST): - Smoker; hx of COPD; episodic dyspnea, trejo, occ wheezing/cough; hx of bronchitis and PNA prev.; as per records; was on Albuterol inh and neb., Dulera, Theophylline prev. - Consider LAMA/LABA or try triple tx Trelegy, Breztri, or other inhaler regimen, as indic; if feasible/needed; albuterol as needed; use spacer - consider Daliresp subseq as indic., as tolerated; if feasible - may also use duonebs; budesonide+formoterol nebs alternatively - patient benefits from nebulizer treatments - Inhaler technique teaching done/reviewed prev.; rinse mouth after inhaler use, especially steroid inhalers - Smoking abstinence reinforced - advised OTC Calcium+Vit D, lifestyle recs for osteoporosis prevention, especially if on frequent or long-term systemic steroids (osteoporosis screening/management as per PCP prn, as indic) - monitor PFT prn, as indicated - monitor imaging prn, Chest radiograph as needed (CT Chest as indicated) - Pulmonary rehab program, if feasible; rec to stay active - Influenza, pneumococcal, COVID19, pulmonary vaccines recommended, updated Nicotine dependence, cigaret kelsi, with unspecified nicotine-induced disorders 07/08/2024 Assessment & Plan (07/08/2024 2:14 PM EST): Smoking Cessation Counseling (including rationale, help that can be provided to assist in cessation; risks of smoking-related cancer, COPD or arteriovascular disease, including CAD, PVD or stroke are increased with continued smoking); pt was advised to quit; encouraged to set quit date; 4 minutes spent; current smoker: yes; ready to quit: trying to quit; considering, contemplating; options, aids, discussed with pt. - recommend Nicotine replacement txs; target Quit date in around 3 months Chronic obstructive pulmonar y disease with acute exacerbation 08/01/2021 Tobacco abuse 08/01/2021 Hypoalbuminemia 08/01/2021 Vitamin D deficiency 08/01/2021 COPD (chronic obstructive pulmonary disease) Assessment & Plan (11/05/2024 3:08 PM EDT): See ACO txs. Resolved Problems Problem Noted Date Diagnosed Date Resolved Date Multifocal pneumonia 07/31/2021 025 Encounters Date Type Department Care Team Description 11/11/2024 Orders Only [facility] Speech Therapy [address] [place] [phone] Michelle Liriano, GALILEO Vocal cord dysfunction (Primary Dx) 11/08/2024 Telephone [facility] Sleep Lab [address] [place] [address] Mel Oliveros RCP Schedule Test/Referral 11/08/2024 Orders Only [facility] Pulmonary Disease [address] [address] Stefan Goel MD Severe persistent asthma without complication (Primary Dx) 11/05/2024 2:40 PM EDT Office Visit [facility] Pulmonary [place] [address] [facility] 1st [place] [address] Stefan Goel MD Encounter for pre-operative respiratory clearance (Primary Dx); Chronic obstructive pulmonary disease, unspecified COPD type; Secondary pulmonary arterial hypertension; Lung nodule; Nicotine dependence, cigarettes, with unspecified nicotine-induced disorders; Pulmonary scarring; Severe persistent asthma without complication; Eosinophilic asthma; Asthma-COPD overlap syndrome; COPD exacerbation; Vocal cord dysfunction 10/29/2024 1:05 PM EDT - 10/29/2024 11:59 PM EDT Hospital Encounter [facility] CT Scan [address] [place] [id number] Stefan Goel MD Discharge Disposition: Home or Self Care from Last 3 Months Family History Medical History Relation Name Comments Heart Failure Father Relation Name Status Comments Father Social History Tobacco Use Types Packs/Day Years Used Date Smoking Tobacco: Every Day Cigarettes Smokeless Tobacco: Never Tobacco Cessation:Ready to Q uit: Not Asked; Counseling Given: Not Answered Alcohol Use Standard Drinks/Week Comments Never 0 (1 standard drink = 0.6 oz pur e alcohol) Sex and Gender Information Value Date Recorded Sex Assigned at Not on file Legal Sex Male 9:30 AM EDT Gender Identity Not on file Sexual Orientation Not on file Last Filed Vital Signs Vital Sign Reading Time Taken Comments Blood Pressure 124/64 11/05/2024 2:25 PM EDT Pulse 97 11/05/2024 2:25 PM EDT Temperature 36.8 C (98.2 F) 08/06/2024 1:30 PM EST Respiratory Rate 18 11/05/2024 2:25 PM EDT Oxygen Saturation 93% 11/05/2024 2:25 PM EDT Inhaled Oxygen Concentration - - Weight 93.4 kg (205 lb 14.4 oz) 11/05/2024 2:25 PM EDT Height 182.9 cm (6') 11/05/2024 2:25 PM EDT Body Mass Index 27.93 11/05/2024 2:25 PM EDT Plan of Treatment Upcoming Encounters Date Type Department Care Team (Late st Contact Info) Description 12/12/2024 3:30 PM EDT Office Visit [facility] Cardiology [address] [facility] [place] [address] Rosendo Fuentes II, MD [address] [place] [address] 04/29/2025 2:40 PM EST Office Visit [facility] Pulmonary Disease [facility] [address] [facility] [address] [place] [address] Khanh Encinas, MECHANICAL ADJUSTER [address] [place] [address] Health Maintenance Due Date Last Done Comments HEPATITIS C VIRUS SCREENING 1950 TETANUS 1950 PNEUMOCOCCAL VACCINE SERIES (1 of 2 - PCV) 1969 TDAP (ADULT) 1969 LIPID SCREENING 1990 COLORECTAL CANCER SCREENING DISCUSSION 1995 ZOSTER (SHINGLES) VACCINE (1 of 2) 2000 RSV VACCINE (1 - Risk 60-74 years 1-dose series) 2010 ABDOMINAL AORTIC ANEURYSM HI GH RISK SCREEN 2015 COVID-19 VACCINE (1 - 2023-2 5 season) 2024 INFLUENZA VACCINE (Season Ended) 2025 HEP B VACCINE Aged Out No longer elig ible based on patient's age to complete this topic Procedures Procedure Name Priority Date/Time Associated Diagnosis Comments CT CHEST WITHOUT CONTRAST Routine 10/29/2024 1:20 PM EDT Pulmonary scarring Lung nodule Bronchiolitis from Last 3 Months Results * CT CHEST WITHOUT CONTRAST (10/29/2024 1:20 PM EDT) Anatomical Region Laterality Modality Chest Computed Tomogra phy 10/29/2024 1:10 PM EDT Impressions 10/30/2024 4:37 PM EDT IMPRESSION: Interval resolution of small reticulonodular densities in the basal aspect of the left lung. Stable bronchial wall thickening, and retained secretions in the bilateral lower lobe basal segments consistent with chronic bronchitis, likely associated with a component of chronic obstructive pulmonary disease. Stable aortic and multivessel coronary artery atherosclerosis. No mediastinal masses or enlarged lymph nodes. Stable low-attenuation nodular changes posterior right lobe of the liver and left kidney. Narrative 10/30/2024 4:37 PM EDT EXAMINATION: CT CHEST WITHOUT CONTRAST, 10/29/2024, 1:10 PM EDT HISTORY: ffup LLL micronodules Bronchiolitis COMPARISON: August 14, 2024 TECHNIQUE: CT scan of the chest was performed without IV contrast. CT dose reduction technique was used, including Automated Exposure Control. FINDINGS: Normal heart size and configuration with normal mediastinal great vessels. The esophagus is normal. No enlarged mediastinal lymph nodes or mass are noted. Tracheobronchial tree structures are patent and clear centrally. Some minimal peripheral wall thickening and retained secretions are noted particularly in the bilateral lower lobes. These changes are noted in a patient with underlying pulmonary hyperinflation, and likely component of underlying chronic obstructive pulmonary disease. Relative to the faint peripheral reticulonodular changes noted in the lung periphery, particularly the left base previously these are resolved. There are no new or suspicious noncalcified pulmonary nodules. Thyroid, supraclavicular, axillary, and chest wall soft tissues are satisfactory. Upper abdominal structures included showed stable low-attenuation lesion of the posterior right lobe liver, and left kidney with atrophic changes of the right kidney all similar to previous. CORONARY ARTERIES: Coronary calcifications are moderate. Procedure Note Juan Antonio Stovall, DO - 10/30/2024 EXAMINATION: CT CHEST WITHOUT CONTRAST, 10/29/2024, 1:10 PM EDT HISTORY: ffup LLL micronodules Bronchiolitis COMPARISON: August 14, 2024 TECHNIQUE: CT scan of the chest was performed without IV contrast. CT dose reduction technique was used, including Automated Exposure Control. FINDINGS: Normal heart size and configuration with normal mediastinalgreat vessels. The esophagus is normal. No enlarged mediastinal lymph nodes ormass are noted. Tracheobronchial tree structures are patent and clear centrally. Someminimal peripheral wall thickening and retained secretions are noted particularlyin the bilateral lower lobes. These changes are noted in a patient withunderlying pulmonary hyperinflation, and likely component of underlying chronic obstructive pulmonary disease. Relative to the faint peripheralreticulonodular changes noted in the lung periphery, particularly the left base previously these are resolved. There are no new or suspicious noncalcified pulmonary nodules. Thyroid, supraclavicular, axillary, and chest wall soft tissues are satisfactory. Upper abdominal structures included showed stablelow-attenuation lesion of the posterior right lobe liver, and left kidney with atrophicchanges of the right kidney all similar to previous. CORONARY ARTERIES: Coronary calcifications are moderate. IMPRESSION IMPRESSION: Interval resolution of small reticulonodular densities in the basal aspectof the left lung. Stable bronchial wall thickening, and retained secretionsin the bilateral lower lobe basal segments consistent with chronic bronchitis,likely associated with a component of chronic obstructive pulmonary disease. Stable aortic and multivessel coronary artery atherosclerosis. Nomediastinal masses or enlarged lymph nodes. Stable low-attenuation nodular changes posterior right lobe of the liverand left kidney. us Stefan Tovar MD CT ORDERABLES Final Res ult from Last 3 Months Insurance [employer] PPO Advance Directives For more information, please contact: [phone] (7:30 AM - 6PM [facility], Monday-Monday) * Full Code (Latest Code Status on File) Date Activated Date Inactivated Comments 07/31/2021 3:14 PM Care Teams Retail Experience Specialist Relationship Specialty Start Date End Date John Bhagat MD PCP - General Family Medicine 11/20/19
--- OUTSIDE RECORDS SUMMARY | 2024-11-25 07:37 | XMS_ITS | Clinical Summary ---
Author Organization [facility] Address [address] [place] [address] Care Team Providers Care Shingles Roofer Name Role Phone John Bhagat MD Primary Care Provider [phone] Social History Tobacco Use Types Packs/Day Years Used Date Smoking Tobacco: Never Assessed Sex and Gender Information Value Date Recorded Sex Assigned at Not on file Legal Sex Male 7:34 PM EDT Gender Identity Not on file Sexual Orientation Not on file Last Filed Vital Signs Vital Sign Reading Time Taken Comments Blood Pressure 101/57 09/23/2022 12:00 PM EDT Pulse - - Temperature - - Respiratory Rate - - Oxygen Saturation - - Inhaled Oxygen Concentration - - Weight 92.5 kg (204 lb) 09/23/2022 12:00 PM EDT Height 182.9 cm (6') 09/23/2022 12:00 PM EDT Body Mass Index 27.67 09/23/2022 12:00 PM EDT Plan of Treatment Not on file Insurance [employer] Care Teams Shingles Roofer Relationship Specialty Start Date End Date John Bhagat MD PCP - General Family Medicine 04/26/24
--- OUTSIDE RECORDS SUMMARY | 2024-11-25 07:37 | XMS_ITS | Clinical Summary ---
Author Organization [facility] Address [address] [place] [id number] Care Team Providers Care Analytical Tech Name Role Phone John Bhagat MD Primary Care Provider [phone] Allergies Active Allergy Reactions Criticality Noted Date Comments Prednisone Intolerance 08/27/2007 Cardiac reaction per pt Ketorolac Tromethamine Vomiting Medium 08/26/2013 nausea vomiting Ascorbic Acid Hives 08/27/2007 Large doses per pt Medications albuterol 90 mcg/actuation Aero Inhale 1 Puff as instructed four times daily. USE DIRECTED 1 g 5 3 Active acetaminophen-c odeine (TYLENOL-CODEIN E #3) 300-30 mg per tabletIndicatio ns:Interstitial myositis,Memory disturbance,Alfonso matitis, seborrheic,Tic disorder Take 1 tablet by mouth daily at bedtime. 60 tablet 6 5 Active penicillin V potassium (V-CILLIN, VEETIDS) 500 mg tabletIndicatio ns:Interstitial myositis,Memory disturbance,Alfonso matitis, seborrheic,Tic disorder Take 1 tablet by mouth three times daily. 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 Family History Medical History Relation Comments Arthritis Brother Heart Father Arthritis Maternal Grandfather Arthritis Maternal Grandmother Arthritis Mother Asthma Mother Diabetes Mother Arthritis Paternal Grandfather Arthritis Paternal Grandmother Arthritis Sister Relation Status Comments Brother Father Maternal Grandfather Maternal Grandmother Mother Paternal Grandfather Paternal Grandmother Sister Social History Tobacco Use Types Packs/Day Years Used Date Smoking Tobacco: Every Day Cigarettes 1.5 40 Smokeless Tobacco: Never Comments:2-3 packs per day Alcohol Use Standard Drinks/Week Comments Yes 0 (1 standard drink = 0.6 oz pure alcohol) quit in 1976(was diagnosed an alcoholic) Sex and Gender Information Value Date Recorded Sex Assigned at Not on file Legal Sex Male 9:10 AM EST Gender Identity Not on file Sexual Orientation Not on file Last Filed Vital Signs Vital Sign Reading Time Taken Comments Blood Pressure 102/65 09/09/2015 1:36 PM EDT Pulse 76 09/09/2015 1:36 PM EDT Temperature 36.3 C (97.4 F) 09/17/2003 11:00 AM EST Respiratory Rate 18 09/09/2015 1:36 PM EDT Oxygen Saturation 95% 04/02/2014 1:36 PM EDT Inhaled Oxygen Concentration - - Weight 86.2 kg (190 lb) 09/09/2015 1:36 PM EDT Height 182.9 cm (6') 09/09/2015 1:36 PM EDT Body Mass Index 25.77 09/09/2015 1:36 PM EDT Plan of Treatment Health Maintenance Due Date Last Done Comments Abdominal Aortic Aneurysm Screening 1950 Anxiety Screening 1968 Depression Screening 1968 Hepatitis C Screening 1968 DTaP,Tdap,Td Vaccine (1 - Tdap) [address] Colonography 1995 Cologuard (FIT-DNA) 1995 Colonoscopy 1995 Colorectal Cancer Screening 1995 Diabetes Screening 1995 Fecal Occult Blood 1995 Sigmoidoscopy 1995 Pneumococcal Vaccine: 50+ (1 of 1 - PCV) 2000 Shingrix Vaccine (1 of 2) 2000 Covid-19 Vaccine (1 - 2023- season) 2024 Advance Directive Discussion 06/26/2024 Influenza Vaccine (Season Ended) 2025 RSV Vaccine (1 - 1-dose 75+ series) 2025 Insurance [facility] MEDIC[facility] Care Teams Analytical Tech Relationship Specialty Start Date End Date John Bhagat MD PCP - General Family Medicine 08/26/11
--- OUTSIDE RECORDS SUMMARY | 2024-11-25 07:37 | XMS_ITS | Encounter Summary ---
Author Organization [facility] Address [address] [place] [address] Care Team Providers Care Hoof And Shoe Inspector Name Role Phone John Bhagat MD Primary Care Provider [phone] Reason for Referral * Speech Therapy (Routine) - New Request Specialty Diagnoses / Procedures Referred By Sharda schwartz Referred To Contact Diagnoses Vocal cord dysfunction Stefan Goel MD [address] [place] [address] Phone: tel: fax: Referral ID Status Reason Start Date Expiration Date V isits Requested Visits Authorized [id number] New Request 11/11/2024 12/06/2025 1 1 Encounter Details Date Type Department Care Team (Late st Contact Info) Description 11/11/2024 Orders Only [facility] Speech Therapy [address] [place] [id number] Michelle Liriano, IMAGERY [facility]LLIGENCE [address] [place] [address] Vocal cord dysfunction (Primary Dx) Social History Tobacco Use Types Packs/Day Years Used Date Smoking Tobacco: Every Day Cigarettes Smokeless Tobacco: Never Alcohol Use Standard Drinks/Week Comments Never 0 (1 standard drink = 0.6 oz pur e alcohol) Sex and Gender Information Value Date Recorded Sex Assigned at Not on file Legal Sex Male 9:30 AM EDT Gender Identity Not on file Sexual Orientation Not on file documented as of this encounter Functional Status * Are you deaf or do you have serious difficulty hearing? Answer Date of Assessment Author No 07/31/2021 3:20 PM Oskar Irvin RN * Are you blind or do you have serious difficulty seeing, even when wearing glasses? Answer Date of Assessment Author No 07/31/2021 3:20 PM Oskar Irvin RN * Do you have serious difficulty walking or climbing stairs (5 years or older)? Answer Date of Assessment Author No 07/31/2021 3:20 PM Oskar Irvin RN * Do you have difficulty dressing or bathing (5 yrs or older)? Answer Date of Assessment Author No 07/31/2021 3:20 PM Oskar Irvin RN * Because of a physical, mental, or emotional condition, do you have difficulty doing errands alone such as visiting a doctor's office or shopping (5 yrs or older)? Answer Date of Assessment Author No 07/31/2021 3:20 PM Oskar Irvin RN documented as of this encounter Mental Status * Because of a physical, mental, or emotional condition, do you have serious difficulty concentrating, remembering, or making decisions (5 yrs or older)? Answer Entry Date Author No 07/31/2021 3:20 PM Oskar Irvin RN documented in this encounter Plan of Treatment Upcoming Encounters Date Type Department Care Team (Late st Contact Info) Description 12/12/2024 3:30 PM EDT Office Visit [facility] Cardiology [address] [place] [address] Rosendo Fuentes II, MD [address] [place] [address] 04/29/2025 2:40 PM EST Office Visit [facility] Pulmonary Disease [facility] [address] [phone] Khanh Encinas, IVETTE [address] [facility] [address] [place] [address] Scheduled Referrals Name Type Priority Associated Diagnoses Orde r Schedule VIDEOSTROBOSCOPY [facility]AGERY [facility]TELLIGENCE Routine Vocal cord dysfunction Expected: 11/11/2024, Expires: 11/11/2025 documented as of this encounter Visit Diagnoses Diagnosis Vocal cord dysfunction- Primary Other diseases of vocal cords documented in this encounter Care Teams Hoof And Shoe Inspector Relationship Specialty Start Date End Date John Bhagat MD PCP - General Family Medicine 11/20/19 documented as of this encounter
--- OUTSIDE RECORDS SUMMARY | 2024-11-25 07:38 | XMS_ITS | CCD ---
Author Organization [facility] Care Team Providers Care [employer] Sales Engineer Name Role Phone PHYSICIAN, DEFAULT Unavailable Unavailable PHYSICIAN, DEFAULT Unavailable Unavailable DEZ RODRIGUEZ Unavailable Unavailable Dez Rodriguez MD Primary Care Provider [phone] MICHAEL ., DR GARCES Attending Unavailable SEVENY ., DR GARCES Admitting Unavailable SEVENY ., DR GARCES Primary Care Unavailable HOY ., DR GARCES Consulting Unavailable ZIEBER, DR CORRINE Bull Consulting Unavailable SEVENY ., DR GARCES Attending Unavailable HOY ., DR GARCES Admitting Unavailable HOY ., DR GARCES Primary Care Unavailable HOY ., DR GARCES Consulting Unavailable MAITE FRAZIER Consulting Unavailable SAMANTHA BUTLER Admitting Unavailable SAMANTHA BUTLER Consulting Unavailable SAMANTHA BUTLER Attending Unavailable MICHAEL ., DR GARCES Primary Care Unavailable Dez Rodriguez MD Primary Care Provider [phone] TALA II, KRANTHI B Attending Unavailable DEZ RODRIGUEZ Primary Care Unavailable TALA II, KRANTHI B Referring Unavailable DEZ RODRIGUEZ Primary Care Unavailable TALA II, KRANTHI B Referring Unavailable TALA II, KRANTHI B Attending Unavailable DEZ RODRIGUEZ Primary Care Unavailable TALA II, KRANTHI B Referring Unavailable TALA II, KRANTHI B Attending Unavailable Khanh GILBERT Attending Unavailable Dez Rodriguez Referring Unavailable Dez Rodriguez MD Primary Care Provider [phone] DEZ RODRIGUEZ Referring Unavailable DEZ RODRIGUEZ Primary Care Unavailable NAMRATA AMBROSELERMIRYAM Tovar Attending Unavailable LOPEZ DUBOSE Attending Unavailable DEZ RODRIGUEZ Primary Care Unavailable MARISA MARTINEZ Attending Unavailable DEZ RODRIGUEZ Primary Care Unavailable AMMARK Tovar, STEFAN Attending Unavailable DEZ RODRIGUEZ Primary Care Unavailable AMURAO V, STEFAN Referring Unavailable AMURAArianna V, STEFAN Attending Unavailable DEZ RODRIGUEZ M Primary Care Unavailable AMURAO V, STEFAN Referring Unavailable HOY, DEZ M Primary Care Unavailable AMURAO V, STEFAN Referring Unavailable AMURAO V, STEFAN Attending Unavailable HOY, DEZ M Primary Care Unavailable AMURAO V, STEFAN Referring Unavailable AMURAO V, STEFAN Attending Unavailable HOY, DEZ M Primary Care Unavailable AMURAO V, STEFAN Referring Unavailable AMURAO V, STEFAN Attending Unavailable LOPEZ DUBOSE Referring Unavailable HOY, DEZ M Primary Care Unavailable TALA II II, KRANTHI Attending Unavailabl e HOY, DEZ M Primary Care Unavailable TALA II II, KRNATHI Attending Unavailabl e TALA II II, KRANTHI Referring Unavailabl e HOY, DEZ M Primary Care Unavailable TALA II II, KRANTHI Attending Unavailabl e TALA II II, KRANTHI Referring Unavailabl e HOY, DEZ M Primary Care Unavailable HOY, DEZ M Referring Unavailable AMURAO V, STEFAN Attending Unavailable AMURAO V, STEFAN Attending Unavailable HOY, DEZ M Primary Care Unavailable HOY, DEZ M Referring Unavailable HOY, DEZ M Primary Care Unavailable DUY MAS Attending Unavailable AMURAO V, STEFAN Referring Unavailable HOY, DEZ M Primary Care Unavailable TONNY ALVES Attending Unavailable Allergies Allergy Classification Reported Allergen(s) Allergy Type Date of Onset Reaction(s) Facility (20 sources) Ascorbic Acid Drug Allergy [address] [facility] (4 sources) predniSONE; Translations: [predniSONE] Drug Allergy 2 [facility] (1 source) Ascorbic Acid Drug Allergy 3 [facility] (1 source) predniSONE Drug Allergy 6 [facility] (20 sources) Ketorolac; Translations: [ketorolac] Propensity to adverse reactions to drug 4 Nausea and Vomiting [facility] (19 sources) Prednisone Propensity to adverse reactions to drug 8 [facility] (8 sources) Metoprolol Drug Allergy 5 Nausea and Vomiting, Dizzy/Vertigo [facility] Medications Current Medications Medication Drug Class(es) Dates Sig (Normalized) Sig (Original) [id number] 200 actuat albuterol 0.09 mg/actuat metered dose inhaler (20 sources) beta2-Adrenergic Agonist Start: 08-14-2024 2 puff, Inhalation, ONCE (OUTPT CLINIC), 1 dose, Starting on Mon08/14/24 at 1238, Until Mon08/14/24 at 1319, Wait at least one(1) full minute between inhalations take 2.5 mg by inhal ation every [...] needed for Shortness of Breath. 0 Active albuterol 0.833 mg/ml / ipratropium bromide 0.167 mg/ml inhalation solution (17 sources) Anticholinergic, beta2-Adrenergic Agonist Start: 07-08-2024 End: 07-08-2025 take 3 mL by inhalation every four hours as needed for chronic obstructive pulmonary disease and chronic obstructive pulmonary disease Ipratropium-albuterol 0.5-2.5 (3) MG/3ML nebulizer solution Indications: Chronic obstructive pulmonary disease, unspecified COPD type Take 3 mL by nebulization every 4 hours as needed for Wheezing, Shortness of Breath, Breathing Treatment or Cough. 300 mL 07/08/2024 07/08/2025 Active Start: 04-06-2024 End: 04-06-2024 9 mL, Nebulization, ONCE, 1 dose, On 04/06/24 at 1400 Start: 08-23-2023 End: 08-23-2023 3 mL, Nebulization, ONCE, 1 dose, On Mon08/23/23 at 1745 Start: 08-02-2021 End: 08-02-2021 ipratropium-albuterol [...] 0.5-2.5 (3) MG/3ML nebulizer solution 3 mL amoxicillin 875 mg / clavulanate 125 mg oral tablet (15 sources) Penicillin-class Antibacterial Start: 07-04-2024 take 1 tablet by mouth twice daily Amoxicillin-clavulanate 875-125 MG tablet Take 1 tablet by mouth 2 times daily. 07/04/2024 Active Start: 08-15-2022 take 1 tablet by nate th every twelve hours Amoxicillin-clavulanate 875-125 MG table t Take 1 tablet by mouth every 12 hours. 08/15/2022 Active budesonide 0.25 mg/ml inhalation suspension (8 sources) Corticosteroid Start: 07-08-2024 End: 07-08-2025 take 2 mL by inhalation twice daily budesonide 0.5 MG/2ML nebulizer suspension Indications: Chronic obstructive pulmonary disease, unspecified COPD type Inhale 2 mL 2 times daily. 120 mL 07/08/2024 07/08/2025 Active 120 actuat budesonide 0.16 mg/actuat / formoterol fumarate 0.0048 mg/actuat / glycopyrrolate 0.009 mg/actuat metered dose inhaler (8 sources) Corticosteroid, beta2-Adrenergic Agonist Start: 07-08-2024 End: 07-08-2025 take 2 puff(s) by mouth twice daily budesonide-glycop yrrolate-Formoter ol (Breztri Aerosphere) 160-9-4.8 MCG/ACT Aerosol inhaler Indications: Chronic obstructive pulmonary disease, unspecified COPD type Inhale 2 puffs 2 times daily. GARGLE, RINSE MOUTH AFTER USE 10.7 g 11 07/08/2024 07/08/2025 Active cefdinir 300 mg oral capsule (7 sources) Cephalosporin Antibacterial Start: 08-01-2022 take 2 capsules by mouth once daily Cefdinir (OMNICEF) 300 MG capsule Take 2 capsules by mouth daily. 08/01/2022 Active dexamethasone 4 mg oral tablet (2 sources) Corticosteroid Start: 11-05-2024 End: 11-12-2024 take 1 tablet by mouth twice daily dexAMETHasone 4 MG tablet Indications: Chronic obstructive pulmonary disease, unspecified COPD type , Severe persistent asthma without complication , Eosinophilic asthma , Asthma-COPD overlap syndrome , COPD exacerbation Take 1 tablet by mouth 2 times daily for 7 days. 14 tablet 11/05/2024 11/12/2024 Active Start: 07-08-2024 End: 07-13-2024 take 1 tablet by mouth twice daily dexAMETHasone 4 MG tablet Indications: Chronic obstructive pulmonary disease, unspecified COPD type Take 1 tablet by mouth 2 times daily for 5 days. 10 tablet 07/08/2024 07/13/2024 Active Ensifentrine 3 MG/2.5ML Suspension (1 source) Start: 11-05-2024 End: 11-05-2025 take 3 mg by inhalation every twelve hours Ensifentrine 3 MG/2.5ML Suspension Indications: Chronic obstructive pulmonary disease, unspecified COPD type , Asthma-COPD overlap syndrome Inhale 3 mg every 12 hours. 150 mL 11 11/05/2024 11/05/2025 Active 30 actuat fluticasone furoate 0.1 mg/actuat / umeclidinium 0.0625 mg/actuat / vilanterol 0.025 mg/actuat dry powder inhaler (8 sources) Anticholinergic, Corticosteroid, beta2-Adrenergic Agonist Start: 07-08-2024 End: 07-08-2024 take 1 puff(s) by inhalation once daily fluticasone-umecl idin-Vilant (Trelegy Ellipta) 100-62.5-25 MCG/ACT Aerosol Powder, breath activated inhaler Indications: Chronic obstructive pulmonary disease, unspecified COPD type Inhale 1 puff daily. 28 Each 07/08/2024 Active formoterol fumarate 0.01 mg/ml inhalation solution (8 sources) beta2-Adrenergic Agonist Start: 07-08-2024 End: 07-08-2025 formoterol (Perforomist) 20 MCG/2ML Nebu Soln nebulizer solution Indications: Chronic obstructive pulmonary disease, unspecified COPD type Take 2 mL by nebulization 2 times daily. 120 mL 11 07/08/2024 07/08/2025 Active 60 actuat formoterol fumarate 0.005 mg/actuat / mometasone furoate 0.2 mg/actuat metered dose inhaler (20 sources) Corticosteroid, beta2-Adrenergic Agonist take 2 puff(s) [...] IVPB ondansetron 4 mg disintegrating oral tablet (14 sources) Serotonin-3 Receptor Antagonist Start: 04-06-2024 take [...] days. 24 tablet 0 08/02/2021 08/13/2021 Active roflumilast 0.5 mg oral tablet (8 sources) Phosphodiesterase 4 Inhibitor Start: 07-08-2024 End: 07-08-2025 take 1 tablet by mouth once daily, then take 1 tablet by mouth every other day, then take 1 tablet by mouth once daily roflumilast (Daliresp) 500 MCG tablet Indications: Chronic obstructive pulmonary disease, unspecified COPD type Take 1 tablet by mouth daily. TAKE 1 TABLET EVERY OTHER DAY FOR 2 WEEKS, THEN 1 TABLET DAILY 30 tablet 11 07/08/2024 07/08/2025 Active SPACER FOR INHALER PRESCRIPTION (16 sources) Start: 07-08-2024 SPACER FOR INHALER PRESCRIPTION Indications: Chronic obstructive pulmonary disease, unspecified COPD type , Reactive airway disease without complication, unspecified asthma severity, unspecified whether persistent Use with inhaler as directed 1 Each 07/08/2024 Active theophylline 300 mg extended release oral tablet (19 sources) Methylxanthine Start: 08-16-2022 take 1 tablet [...] End: 08-02-2021 Acetylcysteine (NAC) capsule 1,200 mg benzonatate 100 mg oral capsule (1 source) [...] 125 mg, Intravenous, ONCE, 1 dose, On 08/23/23 at 1715 Start: 08-01-2021 End: 08-02-2021 methylPREDNISolone [...] pain; Translations: [Right upper quadrant pain] Episodic Acute bronchitis (5 sources) Acute bronchitis due to other specified organisms; Translations: [Bronchiolitis] Onset: 3 10-29-2024 Episodic Asthma (19 sources) Reactive airway disease; Translations: [Unspecified asthma, uncomplicated] Onset: 5 07-08-2024 Chronic Asthma (2 sources) Asthma; Translations: [Eosinophilic asthma] Onset: Cardiac dysrhythmias (8 sources) Atrial paroxysmal tachycardia; Translations: [PAT (paroxysmal atrial tachycardia)] Onset: 4 01-23-2024 Chronic Cardiac dysrhythmias (4 sources) Tachycardia, unspecified; Translations: [Palpitations] Onset: 3 01-23-2024 Episodic Chronic obstructive pulmonary disease and bronchiectasis (20 sources) Acute exacerbation of chronic obstructive airways disease; Translations: [Chronic obstructive pulmonary disease with (acute) exacerbation] Onset: 2 Chronic Chronic obstructive pulmonary disease and bronchiectasis (2 sources) Chronic obstructive pulmonary disease and bronchiectasis; Translations: [Other specified chronic obstructive pulmonary disease] Onset: 5 Conditions associated with dizziness or vertigo (4 sources) Dizziness and giddiness; Translations: [Dizziness and giddiness] Onset: 4 01-23-2024 Episodic Esophageal disorders (1 source) Gastro-esophageal reflux disease without esophagitis; Translations: [GERD WITHOUT ESOPHAGITIS] Onset: 3 Chronic Nutritional deficiencies (20 sources) Vitamin D deficiency; Translations: [Vitamin D deficiency, unspecified] Onset: 2 Chronic Other gastrointestinal disorders (2 sources) Dysphagia; Translations: [Dysphagia, unspecified] 07-08-2024 Episodic Other lower respiratory disease (4 sources) Dyspnea; Translations: [Dyspnea, unspecified] 10-31-2023 Episodic Other lower respiratory disease (20 sources) Lesion of lung; Translations: [Other disorders of lung] Onset: 5 07-08-2024 Episodic Other lower respiratory disease (4 sources) Nodule of lung; Translations: [Solitary pulmonary nodule] 10-29-2024 Episodic Other lower respiratory disease (2 sources) Asthma; Translations: [Eosinophilic asthma] Onset: 5 11-05-2024 Episodic Other lower respiratory disease (4 sources) Solitary pulmonary nodule; Translations: [Solitary pulmonary nodule] Onset: 5 Episodic Other lower respiratory disease (4 sources) Other disorders of lung; Translations: [Other disorders of lung] Onset: 5 Episodic Other nutritional; endocrine; and metabolic disorders (20 sources) Hypoalbuminemia; Translations: [Other disorders of plasma-protein metabolism, not elsewhere classified] Onset: 2 Chronic Other skin disorders (2 sources) Mass of neck; Translations: [Localized swelling, mass and lump, neck] 04-10-2023 Episodic Other upper respiratory disease (1 source) Disorder of the larynx; Translations: [Other diseases of larynx] 08-06-2024 Episodic Other upper respiratory disease (3 sources) Vocal cord dysfunction; Translations: [Other diseases of vocal cords] Onset: 5 11-05-2024 Episodic Other upper respiratory disease (2 sources) Other diseases of vocal cords; Translations: [Other diseases of vocal cords] Onset: 5 Episodic Pneumonia (except that caused by tuberculosis or sexually transmitted disease) (1 source) Pneumonia (except that caused by tuberculosis or sexually transmitted disease); Translations: [PNEUMONIA D/T CORONAVIRUS DIS 2019] Onset: 3 Pulmonary heart disease (20 sources) Pulmonary arterial hypertension; Translations: [Secondary pulmonary arterial hypertension] Onset: 5 07-08-2024 Chronic Substance-related disorders (15 sources) Nicotine dependence, cigarettes, uncomplicated; Translations: [Tobacco dependence caused by cigarettes] Onset: 3 07-08-2024 Chronic Syncope (5 sources) Syncope and collapse; Translations: [Syncope and collapse] Onset: 4 01-23-2024 Episodic Unclassified (1 source) CONTACT W/AND (SUSP) EXPOS COVID-19; Translations: [CONTACT W/AND (SUSP) EXPOS COVID-19] Onset: 3 Unclassified (1 source) Other supraventricular tachycardia; Translations: [Other supraventricular tachycardia] Onset: 4 Unclassified (1 source) Other ventricular tachycardia; Translations: [Other ventricular tachycardia] Onset: 4 Viral infection (3 sources) COVID-19; Translations: [COVID-19] Onset: 3 Past or Other Problems Problem Classification Problem Date Documented Date Episodic/Chronic Deficiency and other anemia (1 source) Iron deficiency anemia, unspecified; Translations: [IRON DEFICIENCY ANEMIA UNSPECIFIED] Onset: 3 Episodic Diabetes mellitus without complication (1 source) Hyperglycemia, unspecified; Translations: [HYPERGLYCEMIA UNSPECIFIED] Onset: 3 Episodic E Codes: Adverse effects of medical drugs (1 source) Adverse effect of glucocorticoids and synthetic analogues, initial encounter; Translations: [ADVRS EFF GLUCOCORT SYN ANALOG INIT] Onset: 3 Episodic Fluid and electrolyte disorders (1 source) Hypo-osmolality and hyponatremia; Translations: [HYPO-OSMOLALITY AND HYPONATREMIA] Onset: 3 Episodic Malaise and fatigue (3 sources) Asthenia; Translations: [Weakness] Onset: 4 04-06-2024 Episodic Nausea and vomiting (3 sources) Nausea and vomiting; Translations: [Nausea with vomiting, unspecified] Onset: 4 04-06-2024 Episodic Nonspecific chest pain (6 sources) Chest pain; Translations: [Chest pain, unspecified] Onset: 4 12-21-2023 Episodic Other aftercare (1 source) Other return checker (current) drug therapy; Translations: [OTH SENIOR CARE CURRENT DRUG THERAPY] Onset: 3 Episodic Other gastrointestinal disorders (2 sources) Dysphagia, pharyngoesophageal phase; Translations: [Dysphagia, pharyngoesophageal phase] Onset: 5 Episodic Other gastrointestinal disorders (2 sources) Dysphagia, unspecified; Translations: [Dysphagia, unspecified] Onset: 5 Episodic Other lower respiratory disease (1 source) Acute respiratory distress; Translations: [ACUTE RESPIRATORY DISTRESS] Onset: 3 Episodic Other lower respiratory disease (4 sources) Dyspnea, unspecified; Translations: [DYSPNEA UNSPECIFIED] Onset: 2 Episodic Other lower respiratory disease (4 sources) Shortness of breath; Translations: [Shortness of breath] Onset: 4 Episodic Other screening for suspected conditions (not mental disorders or infectious disease) (1 source) Other specified abnormal findings of blood chemistry; Translations: [OTH SPEC ABNORMAL FINDINGS BLD CHEM] Onset: 3 Episodic Other upper respiratory disease (2 sources) Dysphonia; Translations: [Dysphonia] Onset: 5 08-06-2024 Episodic Other upper respiratory disease (2 sources) Deviated nasal septum; Translations: [Deviated nasal septum] Onset: 5 08-06-2024 Episodic Other upper respiratory disease (1 source) Dysphonia; Translations: [Dysphonia] Onset: 5 Episodic Other upper respiratory disease (1 source) Deviated nasal septum; Translations: [Deviated nasal septum] Onset: 5 Episodic Other upper respiratory disease (2 sources) Other diseases of larynx; Translations: [Other diseases of larynx] Onset: 5 Episodic Pneumonia (except that caused by tuberculosis or sexually transmitted disease) (20 sources) Pneumonia; Translations: [Pneumonia, unspecified organism] Onset: 2 Resolved: 5 Episodic Residual codes; unclassified (20 sources) Tobacco user; Translations: [Tobacco use] Onset: 2 Episodic Skin and subcutaneous tissue infections (3 sources) Cellulitis of left upper limb; Translations: [Cellulitis of left upper limb] Onset: 4 12-07-2023 Episodic Unclassified (2 sources) Onset: 3 08-19-2022 Unclassified (1 source) Other supraventricular tachycardia; Translations: [Other supraventricular tachycardia] Onset: 4 Unclassified (1 source) Other ventricular tachycardia; Translations: [Other ventricular tachycardia] Onset: 4 Results Test Name Value Interpretation Reference Range Facility CT CHEST WITHOUT CONTRASTon 10-30-2024 CT CHEST WITHOUT CONTRAST EXAMINATION: CT CHEST WITHOUT CONTRAST, 10/29/2024, 1:10 [...] previous. CORONARY ARTERIES: Coronary calcifications are moderate. IMPRESSION: Interval resolution of small reticulonodular densities [...] lobe of the liver and left kidney. [facility] Ambulatory Visit Summaryon 0 10-08-2024 Ambulatory Visit Summary Ambulatory Visit Summary RAUL MULLEN :1950 Visit Date:10/08/2024 Ambulatory Visit Instructions Your Care Team Attending Physician - OFELIA SHAH, Khanh Bull Primary Care Physician - Dez Rodriguez MD Referring Physician - Dez Rodriguez MD This Is Your Medications List Contact prescribing physician if questions or concerns albuterol (Albuterol (Eqv-ProAir HFA)) albuterol (albuterol 0.083% Inh Yakelin 3 mL) budesonide (budesonide 0.5 mg/2 mL Inh Susp) formoterol (formoterol 20 mcg/2 mL inhalation solution) pantoprazole (Protonix 40 mg Tab-DR) roflumilast (roflumilast 500 mcg oral tablet) Procedures Performed Biopsy of muscle, Cardiac catheterization, Circumcision, Closure of perforation of ear drum, Orchiectomy, Urethral stricture, Vasectomy. Discharge Vitals Heart Rate (Peripheral) 76 Respiratory Rate 16 Blood Pressure 128/80 Height 177.8 cm Height 70 in Weight 94.9 kg Weight 209.218 lb BMI 30.02 Medications What How Much When Instructions Unchanged albuterol (Albuterol (Eqv-ProAir HFA)) 2 Inhalation Inhalation Every 4 hours as needed for Shortness of breath or wheezing Contact prescribing physician if questions or concerns Unchanged albuterol (albuterol 0.083% Inh Yakelin 3 mL) 3 Milliliter Nebulized inhalation (aerosol) Every 6 hours Contact prescribing physician if questions or concerns Unchanged budesonide (budesonide 0.5 mg/ 2 mL Inh Susp) 2 Milliliter Nebulized inhalation (aerosol) 2 times a day Contact prescribing physician if questions or concerns Unchanged formoterol (formoterol 20 mcg/ 2 mL inhalation solution) 2 Milliliter Inhalation 2 times a day Contact prescribing physician if questions or concerns Unchanged pantoprazole (Protonix 40 mg Tab-DR) 1 Tablets By Mouth Every day Contact prescribing physician if questions or concerns Unchanged roflumilast (roflumilast 500 mcg oral tablet) 1 Tablets By Mouth Every day Contact prescribing physician if questions or concerns Allergies ketorolac (unknown) predniSONE (Tachycardia) Problems Ongoing - Any problem that you are currently receiving treatment for. Anemia BMI 30.0-30.9,adult Bradycardia Carotid artery disease Chronic obstructive pulmonary disease GERD (gastroesophageal reflux disease) Inclusion body myositis (IBM) Overweight Ventricular tachycardia Patient Survey You may receive a survey via text or e-mail asking about your office visit. Please share your experience with us by completing your survey. We appreciate your feedback and thank you for choosing us for your care. Yisel Duarte [facility] CT CHEST WITHOUT CONTRASTon 08-21-2024 CT CHEST WITHOUT CONTRAST EXAMINATION: CT CHEST WITHOUT CONTRAST, 08/14/2024 1:45 PM EST HISTORY: lung scarring COMPARISON: 08/23/2023 PA study. TECHNIQUE: CT scan of the chest was performed without IV contrast. Dose reduction techniques were achieved by using automated exposure control and/or adjustment of mA and/or kV according to patient size and/or use of iterative reconstruction technique. FINDINGS: . Minimal reticular scarring in the posterior basal right lower lobe. Small foci of reticulonodular opacity are now noted in the basal lateral left lower lobe. Moderate coronary artery calcification is again appreciated. There is no adenopathy. No pleural or pericardial fluid collections are noted. There is a small hiatal hernia. Limited evaluation of the upper abdomen demonstrates a stable 9 mm hypodense lesion in the inferior right lobe of the liver. A 2.6 cm diameter hypodense interpole left renal cortical lesion is noted, the area was not included on the comparisons artery. Right renal atrophy is again appreciated. Thoracic spondylosis is noted. IMPRESSION: 1. Interval appearance of a few foci of reticulonodular lung opacity in the left lower lobe consistent with atypical infection or inflammation. 2. Minimal scarring in the right lung base. 3. Moderate coronary artery calcification. 4. Small hiatal hernia. 5. Hypodense lesion in the liver appears stable, likely a cyst or hemangioma. 6. 2.6 cm hypodense left renal cortical lesion is not included on comparison study. Likely a cyst. Recommend confirmation with ultrasound. Normal [facility] Cardiac echo study Procedure on 08-14-2024 APPROVED REPORT Other Information Study Quality: Adequate Conclusion The left ventricular systolic function is normal. The left ventricular ejection fraction is within the normal range. There is normal LV segmental wall motion. LVEF is 60-65%. Mild diastolic dysfunction is present (impaired relaxation pattern). The right ventricle is normal size. The right ventricular systolic function is normal. Trace to mild tricuspid regurgitation. No pulmonary hypertension. Left Ventricle The left ventricle is normal size. The left ventricular systolic function is normal. The left ventricular ejection fraction is within the normal range. There is normal left ventricular wall thickness. There is normal LV segmental wall motion. Mild diastolic dysfunction is present (impaired relaxation pattern). There is no ventricular septal defect visualized. No left ventricle thrombus noted on this study. LVEF is 60-65%. Right Ventricle The right ventricle is normal size. The right ventricular systolic function is normal. There is normal right ventricular wall thickness. Atria The left atrium size is normal. The right atrium size is normal. The interatrial septum is intact with no evidence for an atrial septal defect. Aortic Valve Aortic valve is trileaflet. Normal cusp separation. There is no aortic valvular stenosis. No aortic regurgitation is present. There is no aortic valvular vegetation. Mitral Valve The mitral valve is normal in structure. No evidence of mitral valve stenosis. There [...] Doppler, and color-flow Echocardiogram Imaging system used: [employer] Vivid E9 2D Dimensions IVSd 0.8 cm M: 0.6-1.0 LVEF (Deshpande's) 68.69 % M: 52 - 72 PWd 0.7 cm M: 0.6 - 1.0 EF AP4-a2DQ 68.09 % LVDd 4.6 cm M: 4.2 - 5.8 EF AP2-a2DQ 69.46 % LVDs 3.20 cm M: 2.5 - 4.0 EF BP-a2DQ 68.69 % Aortic Root 3.53 cm M: 3.1 - 3.7 LVESV 24 mL Aortic Root Index 1.6 cm/m2 LVEDV 76.40 mL M: 62 - 150 Ascending Aorta 2.96 cm M: 2.6 - 3.4 LV Volume Index 35.53 mL/m2 M: 34 - 74 Ascending Aorta Index: 1.4 cm/m2 LA Volume 25.0 mL Left Atrium 2.99 cm M: 3.0 - 4.0 LA Volume Index 11.63 mL/m2 (M/F) 16-34 LVOT 2.27 cm (M/F) 1.5-2.5 RV Major 2.81 cm TAPSE 2.1 >1.7 cm RV Minor 8.17 cm IVC 1.3 cm RVIDd 3.48 cm (M/F) 2.5-4.1 Right Atrium 4.4 cm (M/F) 2.9-4.5 LV Diastology E/A Ratio 0.5 Septal E' 0.08 (>=.07 m/s) LAT E' 0.10 (>=.10 m/s) E/LAT E' Ratio 5.09 (<=14) E/E AVG 5.83 Septal E/E' 6.81 Aortic Valve LVOT Max 1.19 (0.7-1.1 m/s) LVOT VTI 21.53 cm LVOT Peak GR 5.65 mmHg LVOT Mean GR 2.57 mmHg AV DI 1.05 (>0.25) AoV Peak Tim. 1.13 (0.5-1.3 m/s) AV Vmean 0.72 m/s AO Peak GR. 5.15 mmHg AO Mean GR. 2.41 (<5 mmHg) AO VTI 20.6 (18-25 cm) MELISSA (VTI) 4.22 (2.5-4.5 cm2) Mitral Valve MV E Max Tim. 0.5 (0.4-1.3 m/s) MV A Velocity 0.93 (0.4-1.3 m/s) E/A Ratio 0.56 MV PHT 55.68 ms MVA PHT 3.95 cm2 MV Dec [place] 298.53 cm/s2 MV Decel. Time 174.10 (160-240 ms) Pulmonary Valve PV Peak Velocity 0.7 (0.5-1.5 m/s) PV maxPG 2.2 mmHg PV Vmax 0.7 m/s Tricuspid Valve TR P. Velocity 1.84 m/s RAP Estimate 3 mmHg RVSP 16.51 mmHg TR maxPG 13.51 mmHg CARDIOLOGY Tala MONIQUE, Kranthi Rosales MD - 08/14/2024 APPROVED REPORT Other Information Study Quality: Adequate Conclusion The left ventricular systolic function is normal. The left ventricular ejection fraction is within the normal range. There is normal LV segmental wall motion. LVEF is 60-65%. Mild diastolic dysfunction is present (impaired relaxation pattern). The right ventricle is normal size. The right ventricular systolic function is normal. Trace to mild tricuspid regurgitation. No pulmonary hypertension. Left Ventricle The left ventricle is normal size. The left ventricular systolic function is normal. The left ventricular ejection fraction is within the normal range. There is normal left ventricular wall thickness. There is normal LV segmental wall motion. Mild diastolic dysfunction is present (impaired relaxation pattern). There is no ventricular septal defect visualized. No left ventricle thrombus noted on this study. LVEF is 60-65%. Right Ventricle The right ventricle is normal size. The right ventricular systolic function is normal. There is normal right ventricular wall thickness. Atria The left atrium size is normal. The right atrium size is normal. The interatrial septum is intact with no evidence for an atrial septal defect. Aortic Valve Aortic valve is trileaflet. Normal cusp separation. There is no aortic valvular stenosis. No aortic regurgitation is present. There is no aortic valvular vegetation. Mitral Valve The mitral valve is normal in structure. No evidence of mitral valve stenosis. There [...] Doppler, and color-flow Echocardiogram Imaging system used: [employer] Vivid E9 2D Dimensions IVSd 0.8 cm M: 0.6-1.0LVEF (Deshpande's)68.69 % M: 52 - 72 PWd 0.7 cm M: 0.6 - 1.0EF AP4-a2DQ68.09 % LVDd 4.6 cm M: 4.2 - 5.8EF AP2-a2DQ69.46 % LVDs 3.20 cm M: 2.5 - 4.0EF BP-a2DQ68.69 % Aortic Root 3.53 cm M: 3.1 - 3.6JSVTU42 mL Aortic Root Index1.6 cm/j6FVXTI26.40 mL M: 62 - 150 Ascending Aorta 2.96 cm M: 2.6 - 3.4LV Volume Index35.53 mL/m2 M: 34 - 74 Ascending Aorta Index: 1.4 cm/m2LA Mnqpob56.0 mL Left Atrium 2.99 cm M: 3.0 - 4.0LA Volume Index11.63 mL/m2 (M/F) 16-34 LVOT2.27 cm (M/F) 1.5-2.5RV Major 2.81 cm TAPSE 2.1 >1.7 cmRV Minor8.17 cm IVC1.3 cmRVIDd3.48 cm (M/F) 2.5-4.1 Right Atrium 4.4 cm (M/F) 2.9-4.5 LV Diastology E/A Ratio 0.5Septal E'0.08 (>=.07 m/s) LAT E'0.10 (>=.10 m/s)E/LAT E' Ratio5.09 (<=14) E/E AVG 5.83Septal E/E'6.81 Aortic Valve LVOT Max1.19 (0.7-1.1 m/s)LVOT VTI21.53 cm LVOT Peak GR5.65 mmHgLVOT Mean GR2.57 mmHg AV DI1.05 (>0.25)AoV Peak Tim.1.13 (0.5-1.3 m/s) AV Vmean 0.72 m/Moris Peak GR.5.15 mmHg AO Mean GR.2.41 (<5 mmHg)AO VTI20.6 (18-25 cm) MELISSA (VTI)4.22 (2.5-4.5 cm2) Mitral Valve MV E Max Tim.0.5 (0.4-1.3 m/s)MV A Velocity0.93 (0.4-1.3 m/s) E/A Ratio0.56MV PHT55.68 ms MVA PHT3.95 cm2MV Dec [place] 298.53 cm/s2 MV Decel. Yigs825.10 (160-240 ms) Pulmonary Valve PV Peak Velocity0.7 (0.5-1.5 m/s)PV maxPG2.2 mmHg PV Vmax0.7 m/s Tricuspid Valve TR P. Velocity1.84 m/sRAP Estimate3 mmHg RVSP16.51 mmHgTR maxPG 13.51 mmHg [facility] Radiology Study observation (narrative) [facility] Cardiac echo study Procedure Ordered By: Kranthi Edgar on 08-14-2024 [facility] Work Phone: EXERCISE-6 MIN. WALKon 08-14 Stefan Tovar MD 08/15/2024 6:33 AM - 08/14/2024 6MWT: on Room Air. Dx: dyspnea - pt. walked for 6 minutes, for a distance of 1000 ft (6MWD 305 m). - Baseline SpO2 at rest on room air: 96%. - Significant oxygen desaturation while walking: NO; LOWEST SpO2 95% at 2 min; post-test SpO2 98%. - Dyspnea: SLIGHT, highest Mod. Shay Dyspnea Scale Score: 1/10. IMPRESSION: Exercise limitation: NO MILD. Required or Qualified for Oxygen Supplementation: NO. [facility] ID LARYNGOSCOPY FLX/RGD TELE SCOPIC W/STROBOSCOPYon 08-06-2024 [facility] IGE, TOTALon 07-13-2024 IgE Qn 55 [IU]/L Normal [facility] Comment on above: Result Comment: Refe rence range: 6 to 495 Unit: IU/mL PERFORMED AT [facility] Performed By: #### C HEM7F, ACBC #### Testing performed at [facility] [address] [place] [address] MINI PANEL ALLERGEN PROFILEo n 07-13-2024 ALTERNARIA ALTERNATA <0.10 [facility] Comment on above: Result Comment: Refe rence range: Class 0 Unit: kU/L Performed By: #### L MINIA #### Testing performed at [facility] KYRGYZ ELM <0.10 [facility] Comment on above: Result Comment: Refe rence range: Class 0 Unit: kU/L Performed By: #### L MINIA #### Testing performed at [facility] BERMUDA GRASS <0.10 [facility] Comment on above: Result Comment: Refe rence range: Class 0 Unit: kU/L Performed By: #### L MINIA #### Testing performed at [place], [place] <0.10 [facility] Comment on above: Result Comment: Refe rence range: Class 0 Unit: kU/L Performed By: #### L MINIA #### Testing performed at [facility] CAT HAIR/DANDER <0.10 [facility] Comment on above: Result Comment: Refe rence range: Class 0 Unit: kU/L Performed By: #### L MINIA #### Testing performed at [facility] CLASS DESC Comment [facility] Comment on above: Result Comment: (NOT E) Levels of Specific IgE Class Description of Class ----- < 0.10 0 Negative 0.10 - 0.31 0/I Equivocal/Low 0.32 - 0.55 I Low 0.56 - 1.40 II Moderate 1.41 - 3.90 III High 3.91 - 19.00 IV Very High 19.01 - 100.00 V Very High >100.00 Very High Performed By: #### L MINIA #### Testing performed at [facility] D FARINAE MITE <0.10 [facility] Comment on above: Result Comment: Refe rence range: Class 0 Unit: kU/L Performed By: #### L MINIA #### Testing performed at [facility] D PTERONYSSINUS (DUST MITE) <0.10 [facility] Comment on above: Result Comment: Refe rence range: Class 0 Unit: kU/L Performed By: #### L MINIA #### Testing performed at [facility] [id number] DOG DANDER <0.10 [facility] Comment on above: Result Comment: Refe rence range: Class 0 Unit: kU/L PERFORMED AT [facility] Performed By: #### L MINIA #### Testing performed at [facility] MOUSE URINE <0.10 [facility] Comment on above: Result Comment: Refe rence range: Class 0 Unit: kU/L Performed By: #### L MINIA #### Testing performed at [facility] OAK, WHITE <0.10 [facility] Comment on above: Result Comment: Refe rence range: Class 0 Unit: kU/L Performed By: #### L MINIA #### Testing performed at [facility] PLANTAIN, FAROESE <0.10 [facility] Comment on above: Result Comment: Refe rence range: Class 0 Unit: kU/L Performed By: #### L MINIA #### Testing performed at [facility] RAGWEED, SHORT/COM <0.10 [facility] Comment on above: Result Comment: Refe rence range: Class 0 Unit: kU/L Performed By: #### L MINIA #### Testing performed at [facility] MOLD ALLERGEN PROFILEon 06-26 ALTERNARIA ALTERNATA <0.10 [facility] Comment on above: Result Comment: Refe rence range: Class 0 Unit: kU/L Performed By: #### C HEM7F, ACBC #### Testing performed at [address] [place] [address] ASPERGILL FUMIGATUS <0.10 Normal [facility] Comment on above: Result Comment: Refe rence range: Class 0 Unit: kU/L Performed By: #### C HEM7STEFAN Villalta #### Testing performed at [address] [place] [address] MINH ALBICANS <0.10 Normal [facility] Comment on above: Result Comment: Refe rence range: Class 0 Unit: kU/L Performed By: #### C HEM7STEFAN Villalta #### Testing performed at [address] [address] CLADOSPORIUM HERBARUM <0.10 Normal [facility] Comment on above: Result Comment: Refe rence range: Class 0 Unit: kU/L Performed By: #### C HEM7STEFAN Villalta #### Testing performed at [address] [address] CLASS DESC Comment Normal [facility] Comment on above: Result Comment: (NOT E) Levels of Specific IgE Class Description of Class ----- < 0.10 0 Negative 0.10 - 0.31 0/I Equivocal/Low 0.32 - 0.55 I Low 0.56 - 1.40 II Moderate 1.41 - 3.90 III High 3.91 - 19.00 IV Very High 19.01 - 100.00 V Very High >100.00 Very High Performed By: #### C HEM7STEFAN Villalta #### Testing performed at [address] [place] [address] FUSARIUM PROLIFERATUM <0.10 Normal [facility] Comment on above: Result Comment: Refe rence range: Class 0 Unit: kU/L Performed By: #### C HEM7STEFAN Villalta #### Testing performed at [address] [address] IGE AUREOBASIDIUM PULLUL <0.10 [facility] Comment on above: Result Comment: Refe rence range: Class 0 Unit: kU/L Performed By: #### C HEM7F, ACBC #### Testing performed at [address] [place] [address] IGE EPICOCCUM PURPURASCE <0.10 Normal [facility] Comment on above: Result Comment: Refe rence range: Class 0 Unit: kU/L Performed By: #### C HEM7F ACBC #### Testing performed at [address] [place] [address] IGE PHOMA BETAE <0.10 Normal [facility] Comment on above: Result Comment: Refe rence range: Class 0 Unit: kU/L Performed By: #### C HEM7F ACBC #### Testing performed at [address] [place] [address] MUCOR RACEMOSUS <0.10 [facility] Comment on above: Result Comment: Refe rence range: Class 0 Unit: kU/L Performed By: #### C HEM7F ACBC #### Testing performed at [address] [place] [address] PENICILLIUM CHRYSOGEN <0.10 [facility] Comment on above: Result Comment: Refe rence range: Class 0 Unit: kU/L Performed By: #### C HEM7F ACBC #### Testing performed at [address] [place] [address] SETOMELANOMMA ROSRAT <0.10 [facility] Comment on above: Result Comment: Refe rence range: Class 0 Unit: kU/L PERFORMED AT [facility] Performed By: #### C HEM7F, ACBC #### Testing performed at [address] [place] [address] STEMPHYLIUM HERBARUM <0.10 [facility] Comment on above: Result Comment: Refe rence range: Class 0 Unit: kU/L Performed By: #### C HEM7F, ACBC #### Testing performed at [address] [place] [address] [id number] 2024 [id number] Normal [facility] Comment on above: Result Comment: Refe rence range: 101 to 187 Unit: mg/dL PERFORMED AT [facility] Performed By: #### L IGE #### Testing performed at [facility] #### ACBC #### [place] [address] #### LA1AT #### [place] [address] CBCon 07-08-2024 ABSOLUTE BAS 0.0 10*3/uL Normal 0.0-0.2 [facility] Comment on above: Performed By: #### L IGE #### Testing performed at [facility] #### ACBC #### [place] [address] #### LA1AT #### [place] [address] ABSOLUTE EOS 0.4 10*3/uL Normal 0.0-0.7 [facility] Comment on above: Performed By: #### L IGE #### Testing performed at [facility] #### ACBC #### [place] [address] #### LA1AT #### [place] [address] ABSOLUTE NEUTROPHIL COUNT 3.8 10*3/uL Normal 1.4-6.5 [facility] Comment on above: Performed By: #### L IGE #### Testing performed at [facility] #### ACBC #### Testing performed at [place] [id number] #### LA1AT #### Testing performed at [address] [address] Basophils/100 WBC (Bld) 0.6 % Normal 0.0-2.0 [facility] Comment on above: Performed By: #### L IGE #### Testing performed at [facility] #### ACBC #### Testing performed at [address] [address] #### LA1AT #### Testing performed at [place] [address] [place] [address] DTYPE AUTO DIFF Normal [facility] Comment on above: Performed By: #### L IGE #### Testing performed at [facility] #### ACBC #### Testing performed at [address] [address] #### LA1AT #### Testing performed at [place] [address] [place] [address] Eosinophils/100 WBC (Bld) 5.3 % Normal 0.0-11.0 [facility] Comment on above: Performed By: #### L IGE #### Testing performed at [facility] #### ACBC #### Testing performed at [address] [address] #### LA1AT #### Testing performed at [place] [address] [place] [address] Lymphocytes (Bld) [#/Vol] 1.7 10*3/uL Normal 1.2-3.4 [facility] Comment on above: Performed By: #### L IGE #### Testing performed at [facility] #### ACBC #### Testing performed at [address] [address] #### LA1AT #### Testing performed at [place] [address] [place] [address] Lymphocytes/100 WBC (Bld) 25.3 % Normal 20.0-55.0 [facility] Comment on above: Performed By: #### L IGE #### Testing performed at [facility] #### ACBC #### Testing performed at [address] [address] #### LA1AT #### Testing performed at [place] [address] [place] [address] Monocytes (Bld) [#/Vol] 0.7 10*3/uL Normal 0.0-0.7 [facility] Comment on above: Performed By: #### L IGE #### Testing performed at [facility] #### ACBC #### Testing performed at [address] [address] #### LA1AT #### Testing performed at [place] [address] [place] [address] Monocytes/100 WBC (Bld) 11.2 % High 0.0-10.0 [facility] Comment on above: Performed By: #### L IGE #### Testing performed at [facility] #### ACBC #### Testing performed at [address] [address] #### LA1AT #### Testing performed [address] [place] [address] Neutrophils/100 WBC (Bld) 57.6 % Normal 37.0-75.0 [facility] Comment on above: Performed By: #### L IGE #### Testing performed at [facility] #### ACBC #### Testing performed at [address] [address] #### LA1AT #### Testing performed at [address] [address] Erythrocyte distribution width (RBC) [Ratio] 14.4 % Normal 11.5-14.5 [facility] Comment on above: Performed By: #### L IGE #### Testing performed at [facility] #### ACBC #### Testing performed at [address] [address] #### LA1AT #### Testing performed at [address] [address] Hematocrit (Bld) [Volume fraction] 49.4 % Normal 42.0-52.0 [facility] Comment on above: Performed By: #### L IGE #### Testing performed at [facility] #### ACBC #### Testing performed at [address] [address] #### LA1AT #### Testing performed at [address] [place] [address] Hemoglobin (Bld) [Mass/Vol] 16.3 g/dL Normal 14.0-18.0 [facility] Comment on above: Performed By: #### L IGE #### Testing performed at [facility] #### ACBC #### Testing performed at [address] [address] #### LA1AT #### Testing performed at [address] [address] MCH (RBC) [Entitic mass] 30.2 pg Normal 26.0-35.0 [facility] Comment on above: Performed By: #### L IGE #### Testing performed at [facility] #### ACBC #### Testing performed at [address] [address] #### LA1AT #### Testing performed at [address] [address] MCHC (RBC) [Mass/Vol] 33.0 g/dL Normal 27.0-37.0 [facility] Comment on above: Performed By: #### L IGE #### Testing performed at [facility] #### ACBC #### Testing performed at [address] [address] #### LA1AT #### Testing performed at [address] [address] MCV (RBC) [Entitic vol] 91.4 fL Normal 80.0-100.0 [facility] Comment on above: Performed By: #### L IGE #### Testing performed at [facility] #### ACBC #### Testing performed at [address] [address] #### LA1AT #### Testing performed at [address] [place] [address] Platelet mean volume (Bld) [Entitic vol] 7.0 fL Low 7.4-11.0 [facility] Comment on above: Performed By: #### L IGE #### Testing performed at [facility] #### ACBC #### Testing performed at [address] [address] #### LA1AT #### Testing performed [address] [place] [address] Platelets (Bld) [#/Vol] 375 10*3/uL Normal 130-400 [facility] Comment on above: Performed By: #### L IGE #### Testing performed at [facility] #### ACBC #### Testing performed at [address] [address] #### LA1AT #### Testing performed at [address] [place] [address] RBC (Bld) [#/Vol] 5.41 10*6/uL Normal 4.0-6.1 [facility] Comment on above: Performed By: #### L IGE #### Testing performed at [facility] #### ACBC #### Testing performed at [address] [address] #### LA1AT #### Testing performed at [address] [address] WBC (Bld) [#/Vol] 6.6 10*3/uL Normal 3.6-11.0 [facility] Comment on above: Performed By: #### L IGE #### Testing performed at [facility] #### ACBC #### Testing performed at [address] [address] #### LA1AT #### Testing performed at [address] [address] CBC, EDIF, PLATELETon 2024 ABSOLUTE BASOPHIL COUNT 0.0 10*3/uL 0.0 - 0.2 10*3/uL [facility] Basophils/100 WBC (Bld) 0.6 % 0.0 - 2.0 % [facility] Differential cell count method Nom (Bld) AUTO DIFF % [facility] Eosinophils (Bld) [#/Vol] 0.4 10*3/uL 0.0 - 0.7 10*3/uL [facility] Eosinophils/100 WBC (Bld) 5.3 % 0.0 - 11.0 % [facility] Erythrocyte distribution width (RBC) [Ratio] 14.4 % 11.5 - 14.5 % [facility] Hematocrit (Bld) [Volume fraction] 49.4 % 42.0 - 52.0 % [facility] Hemoglobin (Bld) [Mass/Vol] 16.3 g/dL [facility] Interpretation and review of laboratory results Abnormal [facility] Lymphocytes (Bld) [#/Vol] 1.7 10*3/uL 1.2 - 3.4 10*3/uL [facility] Lymphocytes/100 WBC (Bld) 25.3 % 20.0 - 55.0 % [facility] MCH (RBC) [Entitic mass] 30.2 pg 26.0 - 35.0 PG [facility] MCHC (RBC) [Mass/Vol] 33.0 g/dL [facility] MCV (RBC) [Entitic vol] 91.4 fL [facility] Monocytes (Bld) [#/Vol] 0.7 10*3/uL 0.0 - 0.7 10*3/uL [facility] Monocytes/100 WBC (Bld) 11.2 % High 0.0 - 10.0 % [facility] Neutrophils (Bld) [#/Vol] 3.8 10*3/uL 1.4 - 6.5 10*3/uL [facility] Neutrophils/100 WBC (Bld) 57.6 % 37.0 - 75.0 % [facility] Platelet mean volume (Bld) [Entitic vol] 7.0 fL Low [facility] Platelets (Bld) [#/Vol] 375 10*3/uL 130 - 400 10*3/uL [facility] RBC (Bld) [#/Vol] 5.41 10*6/uL 4.0 - 6.1 10*6/uL [facility] WBC (Bld) [#/Vol] 6.6 10*3/uL 3.6 - 11.0 10*3/uL [facility] CBCon 04-06-2024 ABSOLUTE BAS 0.1 10*3/uL Normal 0.0-0.2 [facility] Comment on above: Performed By: #### T ROHS #### Testing performed at [address] [address] ABSOLUTE EOS 0.3 10*3/uL Normal 0.0-0.7 [facility] Comment on above: Performed By: #### T ROHS #### Testing performed at [address] [address] ABSOLUTE NEUTROPHIL COUNT 5.4 10*3/uL Normal 1.4-6.5 [facility] Comment on above: Performed By: #### T ROHS #### Testing performed at [address] [address] Basophils/100 WBC (Bld) 0.8 % Normal 0.0-2.0 [facility] Comment on above: Performed By: #### T ROHS #### Testing performed at [address] [address] DTYPE AUTO DIFF Normal [facility] Comment on above: Performed By: #### T ROHS #### Testing performed at [address] [address] Eosinophils/100 WBC (Bld) 3.9 % Normal 0.0-11.0 [facility] Comment on above: Performed By: #### T ROHS #### Testing performed at [address] [address] Lymphocytes (Bld) [#/Vol] 1.5 10*3/uL Normal 1.2-3.4 [facility] Comment on above: Performed By: #### T ROHS #### Testing performed at [address] [address] Lymphocytes/100 WBC (Bld) 18.8 % Low 20.0-55.0 [facility] Comment on above: Performed By: #### T ROHS #### Testing performed at [address] [address] Monocytes (Bld) [#/Vol] 0.7 10*3/uL Normal 0.0-0.7 [facility] Comment on above: Performed By: #### T ROHS #### Testing performed at [address] [address] Monocytes/100 WBC (Bld) 8.4 % Normal 0.0-10.0 [facility] Comment on above: Performed By: #### T ROHS #### Testing performed at [address] [address] Neutrophils/100 WBC (Bld) 68.1 % Normal 37.0-75.0 [facility] Comment on above: Performed By: #### T ROHS #### Testing performed at [address] [address] Erythrocyte distribution width (RBC) [Ratio] 14.6 % High 11.5-14.5 [facility] Comment on above: Performed By: #### T ROHS #### Testing performed at [address] [place] [address] Hematocrit (Bld) [Volume fraction] 45.8 % Normal 42.0-52.0 [facility] Comment on above: Performed By: #### T ROHS #### Testing performed at [address] [address] Hemoglobin (Bld) [Mass/Vol] 15.1 g/dL Normal 14.0-18.0 [facility] Comment on above: Performed By: #### T ROHS #### Testing performed at [address] [address] MCH (RBC) [Entitic mass] 30.1 pg Normal 26.0-35.0 [facility] Comment on above: Performed By: #### T ROHS #### Testing performed at [address] [place] [address] MCHC (RBC) [Mass/Vol] 33.1 g/dL Normal 27.0-37.0 [facility] Comment on above: Performed By: #### T ROHS #### Testing performed at [address] [address] MCV (RBC) [Entitic vol] 91.1 fL Normal 80.0-100.0 [facility] Comment on above: Performed By: #### T YOKOS #### Testing performed at [address] [address] Platelet mean volume (Bld) [Entitic vol] 6.7 fL Low 7.4-11.0 [facility] Comment on above: Performed By: #### T ROHS #### Testing performed at [address] [address] Platelets (Bld) [#/Vol] 362 10*3/uL Normal 130-400 [facility] Comment on above: Performed By: #### T JOON #### Testing performed at [address] [address] RBC (Bld) [#/Vol] 5.03 10*6/uL Normal 4.0-6.1 [facility] Comment on above: Performed By: #### T JOON #### Testing performed at [address] [address] WBC (Bld) [#/Vol] 8.0 10*3/uL Normal 3.6-11.0 [facility] Comment on above: Performed By: #### T ROHS #### Testing performed at [address] [address] CBC, EDIF, PLATELETon 2023 ABSOLUTE BASOPHIL COUNT 0.1 10*3/uL 0.0 - 0.2 10*3/uL [facility] Basophils/100 WBC (Bld) 0.8 % 0.0 - 2.0 % [facility] Differential cell count method Nom (Bld) AUTO DIFF % [facility] Eosinophils (Bld) [#/Vol] 0.3 10*3/uL 0.0 - 0.7 10*3/uL [facility] Eosinophils/100 WBC (Bld) 3.9 % 0.0 - 11.0 % [facility] Erythrocyte distribution width (RBC) [Ratio] 14.6 % High 11.5 - 14.5 % [facility] Hematocrit (Bld) [Volume fraction] 45.8 % 42.0 - 52.0 % [facility] Hemoglobin (Bld) [Mass/Vol] 15.1 g/dL [facility] Interpretation and review of laboratory results Abnormal [facility] Lymphocytes (Bld) [#/Vol] 1.5 10*3/uL 1.2 - 3.4 10*3/uL [facility] Lymphocytes/100 WBC (Bld) 18.8 % Low 20.0 - 55.0 % [facility] MCH (RBC) [Entitic mass] 30.1 pg 26.0 - 35.0 PG [facility] MCHC (RBC) [Mass/Vol] 33.1 g/dL [facility] MCV (RBC) [Entitic vol] 91.1 fL [facility] Monocytes (Bld) [#/Vol] 0.7 10*3/uL 0.0 - 0.7 10*3/uL [facility] Monocytes/100 WBC (Bld) 8.4 % 0.0 - 10.0 % [facility] Neutrophils (Bld) [#/Vol] 5.4 10*3/uL 1.4 - 6.5 10*3/uL [facility] Neutrophils/100 WBC (Bld) 68.1 % 37.0 - 75.0 % [facility] Platelet mean volume (Bld) [Entitic vol] 6.7 fL Low [facility] Platelets (Bld) [#/Vol] 362 10*3/uL 130 - 400 10*3/uL [facility] RBC (Bld) [#/Vol] 5.03 10*6/uL 4.0 - 6.1 10*6/uL [facility] WBC (Bld) [#/Vol] 8.0 10*3/uL 3.6 - 11.0 10*3/uL [facility] CMP FASTINGon 04-06-2024 A:G RATIO 1.5 RATIO Normal [facility] Comment on above: Performed By: #### T ROHS #### Testing performed at [address] [address] ALBUMIN 4.2 G/dl Normal 3.5-5.0 [facility] Comment on above: Performed By: #### T ROHS #### Testing performed at [address] [address] ALP [Catalytic activity/Vol] 100 U/L Normal 38-126 [facility] Comment on above: Performed By: #### T ROHS #### Testing performed at [address] [address] ALT [Catalytic activity/Vol] 19 U/L Normal <50 [facility] Comment on above: Performed By: #### T ROHS #### Testing performed at [address] [address] AST [Catalytic activity/Vol] 22 U/L Normal 17-59 [facility] Comment on above: Performed By: #### T ROHS #### Testing performed at [address] [address] Bilirubin [Mass/Vol] 0.5 mg/dL Normal 0.2-1.3 [facility] Comment on above: Performed By: #### T ROHS #### Testing performed at [address] [address] Calcium [Mass/Vol] 9.1 mg/dL Normal 8.4-10.2 [facility] Comment on above: Performed By: #### T ROHS #### Testing performed at [address] [address] Chloride [Moles/Vol] 108 mmol/L High 98-107 [facility] Comment on above: Result Comment: Plea se note: Triglyceride levels of 600mg/dL or higher may positively bias chloride results by approximately 2.1 mmol Performed By: #### T ROHS #### Testing performed at [address] [address] CO2 [Moles/Vol] 27 mmol/L Normal 22-30 [facility] Comment on above: Performed By: #### T ROHS #### Testing performed at [address] [address] Creatinine [Mass/Vol] 1.10 mg/dL Normal 0.70-1.20 [facility] Comment on above: Performed By: #### T ROHS #### Testing performed at [address] [address] EST. GFR, 84 ml/min/1.73sq.m [facility] Comment on above: Performed By: #### T ROHS #### Testing performed at [address] [address] EST. GFR,Non 70 ml/min/1.73sq.m [facility] Comment on above: Performed By: #### T ROHS #### Testing performed at [address] [address] GFR Information Average GFR for 70+ years old = 75. Normal [facility] Comment on above: Result Comment: [employer] isaiah Kidney disease, GFR = <60. Kidney failure, GFR = <15. The GFR estimate is not adjusted for extreme body surface area or acute process, nor has it been validated for women or ethnic groups other than and . Performed By: #### T ROHS #### Testing performed at [address] [address] Glucose [Mass/Vol] 117 mg/dL High 70-100 [facility] Comment on above: Result Comment: NORMAL <100 mg/dL PREDIABETES 101-126 mg/dL DIABETES 126 mg/dL or higher Performed By: #### T ROHS #### Testing performed at [address] [address] Potassium [Moles/Vol] 4.3 mmol/L Normal 3.5-5.1 [facility] Comment on above: Performed By: #### T ROHS #### Testing performed at [address] [address] Protein [Mass/Vol] 7.0 g/dL Normal 6.3-8.2 [facility] Comment on above: Performed By: #### T ROHS #### Testing performed at [address] [address] Sodium [Moles/Vol] 137 mmol/L Normal 137-145 [facility] Comment on above: Performed By: #### T ROHS #### Testing performed at [address] [address] Urea nitrogen [Mass/Vol] 15 mg/dL Normal 7-20 [facility] Comment on above: Performed By: #### T ROHS #### Testing performed at [facility] [address] [place] [address] COMPREHENSIVE METABOLIC PANE Karri 04-06-2024 Albumin [Mass/Vol] 4.2 G/dl 3.5 - 5.0 G/dl [facility] Albumin/Globulin [Mass ratio] 1.5 {ratio} RATIO [facility] ALP [Catalytic activity/Vol] 100 U/L [facility] ALT [Catalytic activity/Vol] 19 U/L NINF [facility] AST [Catalytic activity/Vol] 22 U/L [facility] Bilirubin [Mass/Vol] 0.5 mg/dL [facility] Calcium [Mass/Vol] 9.1 mg/dL [facility] Chloride [Moles/Vol] 108 mmol/L High [facility] Comment on above: Please note: Triglyc eride levels of 600mg/dL or higher may positively bias chloride results by approximately 2.1 mmol CO2 [Moles/Vol] 27 mmol/L [facility] Creatinine [Mass/Vol] 1.10 mg/dL [facility] GFR COMMENT Average GFR for 70+ years old = 75. [facility] Comment on above: Chronic Kidney disea se, GFR = <60. Kidney failure, GFR = <15. The GFR estimate is not adjusted for extreme body surface area or acute process, nor has it been validated for women or ethnic groups other than and . GFR/1.73 sq M.predicted among blacks MDRD (S/P/Bld) [Vol rate/Area] 84 mL/min/{1.73_m2} ml/min/1.73sq .m [facility] GFR/1.73 sq M.predicted among non-blacks MDRD (S/P/Bld) [Vol rate/Area] 70 mL/min/{1.73_m2} ml/min/1.73sq .m [facility] Glucose post fast [Mass/Vol] 117 mg/dL High [facility] Comment on above: NORMAL <100 mg/dL PREDIABETES 101-126 mg/dL DIABETES 126 mg/dL or higher Interpretation and review of laboratory results Abnormal [facility] Potassium [Moles/Vol] 4.3 mmol/L [facility] Protein [Mass/Vol] 7.0 g/dL [facility] Sodium [Moles/Vol] 137 mmol/L [facility] Urea nitrogen [Mass/Vol] 15 mg/dL [facility] D DIMERon 04-06-2024 D DIMER 0.41 ??g/ml Normal <0.50 [facility] Comment on above: Result Comment: If r esult is greater than the cutoff value of 0.50 ??g/ml then the potential for PE or DVT exists. Other conditions exist which may cause a falsely elevated level. Please correlate clinically, including radiological findings and other clinical parameters. Performed By: #### T ROHS #### Testing performed at [address] [address] D-DIMER,QUANTITATIVEon 04-06 Fibrin D-dimer FEU (PPP) [Mass/Vol] 0.41 NINF [facility] Comment on above: If result is greater than the cutoff value of 0.50 g/ml then the potential for PE or DVT exists. Other conditions exist which may cause a falsely elevated level. Please correlate clinically, including radiological findings and other clinical parameters. [facility] INFLUENZA A AND B, PCRon FLUAV and FLUBV Ag IF Nom (Unsp spec) Negative NEGATIVE [facility] FLUBV Ag IA Ql (Unsp spec) Negative NEGATIVE [facility] Comment on above: TESTING PERFORMED BY [place] [facility] NOVEL CORONAVIRUSon 04-06-20 24 NARRATIVE This test was performed using isothermal [place] for the qualitative detection of SARS-CoV-2 nucleic acid. Normal [facility] Comment on above: Performed By: #### T ROHS #### Testing performed at [address] [address] SARS-CoV-2 (COVID-19) RNA [place]+probe Ql (Unsp spec) Not detected Normal NOT DETECTED [facility] Comment on above: Result Comment: Nega tive [...] or clinically deteriorating. Performed By: #### [facility] #### Testing [place] [address] NOVEL CORONAVIRUS LAB 1 - [facility] SARS-CoV-2 (COVID-19) RNA [place]+probe Ql (Unsp spec) Not detected NOT DETECTED [facility] Comment on above: Negative results [...] the qualitative detection of SARS-CoV-2 nucleic acid. [facility] RAPID FLU Aon 04-06-2024 INFLUENZA A Negative Normal NEGATIVE [facility] Comment on above: Performed By: #### C HEM7F, STEFAN #### Testing [place] [address] INFLUENZA B Negative Normal NEGATIVE [facility] Comment on above: Result Comment: TEST ING PERFORMED BY [place] Performed By: #### C HEM7F, STEFAN #### Testing performed at [address] [address] TROPONIN I, HIGH SENSITIVITY on 04-06-2024 TROPONIN I, HIGH SENSITIVITY 3 pg/mL 0 - 20 pg/mL [facility] Comment on above: Indeterminant: >12 to 100 pg/mL female >20 to 100 pg/mL male Indicative of myocardial injury. Serial sampling is recommended, a change of greater than or equal to 20 pg/mL is indicative of acute coronary syndrome. [facility] TROPONIN I, HIGH SENSITIVITY 3 pg/mL Normal 0-20 [facility] Comment on above: Result Comment: Indeterminant: >12 to 100 pg/mL female >20 to 100 pg/mL male Indicative of myocardial injury. Serial sampling is recommended, a change of greater than or equal to 20 pg/mL is indicative of acute coronary syndrome. Performed By: #### T ROHS #### Testing performed at [address] [address] TROPONIN I, HIGH SENSITIVITY 3 pg/mL 0 - 20 pg/mL [facility] Comment on above: Indeterminant: >12 to 100 pg/mL female >20 to 100 pg/mL male Indicative of myocardial injury. Serial sampling is recommended, a change of greater than or equal to 20 pg/mL is indicative of acute coronary syndrome. [facility] TROPONIN I, HIGH SENSITIVITY 3 pg/mL Normal 0-20 [facility] Comment on above: Result Comment: Indeterminant: >12 to 100 pg/mL female >20 to 100 pg/mL male Indicative of myocardial injury. Serial sampling is recommended, a change of greater than or equal to 20 pg/mL is indicative of acute coronary syndrome. Performed By: #### T ROHS #### Testing performed at [address] [address] XR CHEST PA 1 VIEWon 024 XR CHEST PA 1 VIEW EXAM: XR CHEST PA 1 VIEW INDICATION: lightheaded. COMPARISON: Chest radiograph 12/07/2023. TECHNIQUE: Single frontal view of the chest FINDINGS: Normal cardiomediastinal contours. No acute infiltrative process. No pleural effusion or pneumothorax. No acute osseous abnormality. IMPRESSION: No acute cardiopulmonary process. Normal [facility] XR Chest PA uprighton 2023 IMPRESSION: No [...] abnormality. IMPRESSION IMPRESSION: No acute cardiopulmonary process. [facility] Radiology Study observation (narrative) [facility] XR Chest PA uprightOrdered B y: Sheyla Penaloza on 04-06-2024 [employer] [facility] Work Phone: Cardiac echo study Procedure on [...] Doppler, and color-flow Echocardiogram Imaging system used: [employer] 2D Dimensions IVSd 1.1 cm M: 0.6-1.0 [...] ms MVA PHT 2.76 cm2 MV Dec [place] 197.45 cm/s2 MV Decel. Time 268.66 (160-240 [...] Doppler, and color-flow Echocardiogram Imaging system used: [employer] Dim[employer] IVSd 1.1 cm M: 0.6-1.0LVEF (Visual)60.91 % PWd 1.1 cm M: 0.6 - 1.0LVEF (Deshpande's)61.25 % M: 52 - 72 LVDd 4.2 cm M: 4.2 - 5.8EF AP4-a2DQ64.72 % LVDs 2.85 cm M: 2.5 - 4.0EF AP2-a2DQ59.89 % Aortic Root 3.24 cm M: 3.1 - 3.7EF BP-a2DQ61.25 % Aortic Root Index1.5 cm/e0EUOCH57 mL Ascending Aorta 2.89 cm M: 2.6 - 3.7KZPVZ76.87 mL M: 62 - 150 Ascending Aorta Index: 1.4 cm/m2LV Volume Index42.80 mL/m2 M: 34 - 74 Left Atrium 3.04 cm M: 3.0 - 4.0LA Trossr87.3 mL LVOT1.97 cm (M/F) 1.5-2.5LA Volume Index11.57 [...] Ratio0.71MV PHT79.63 ms MVA PHT2.76 cm2MV Dec [place] 197.45 cm/s2 MV Decel. Doir811.66 (160-240 ms) [facility] Radiology Study observation (narrative) [facility] CBCon 12-21-2023 ABSOLUTE BAS 0.1 10*3/uL Normal 0.0-0.2 [facility] Comment on above: Performed By: #### C HEM7FSTEFAN #### Testing performed at [address] [address] ABSOLUTE EOS 0.4 10*3/uL Normal 0.0-0.7 [facility] Comment on above: Performed By: #### C HEM7FSTEFAN #### Testing performed at [address] [address] ABSOLUTE NEUTROPHIL COUNT 5.4 10*3/uL Normal 1.4-6.5 [facility] Comment on above: Performed By: #### C HEM7F, ACBC #### Testing performed at [address] [place] [address] Basophils/100 WBC (Bld) 1.3 % Normal 0.0-2.0 [facility] Comment on above: Performed By: #### C HEM7F, ACBC #### Testing performed at [address] [place] [address] DTYPE AUTO DIFF Normal [facility] Comment on above: Performed By: #### C HEM7F, ACBC #### Testing performed at [address] [place] [address] Eosinophils/100 WBC (Bld) 4.0 % Normal 0.0-11.0 [facility] Comment on above: Performed By: #### C HEM7F ACBC #### Testing performed at [address] [place] [address] Erythrocyte distribution width (RBC) [Ratio] 15.4 % High 11.5-14.5 [facility] Comment on above: Performed By: #### C HEM7F ACBC #### Testing performed at [address] [place] [address] Hematocrit (Bld) [Volume fraction] 44.7 % Normal 42.0-52.0 [facility] Comment on above: Performed By: #### C HEM7F ACBC #### Testing performed at [address] [place] [address] Hemoglobin (Bld) [Mass/Vol] 15.0 g/dL Normal 14.0-18.0 [facility] Comment on above: Performed By: #### C HEM7F, ACBC #### Testing performed at [address] [place] [address] Lymphocytes (Bld) [#/Vol] 2.2 10*3/uL Normal 1.2-3.4 [facility] Comment on above: Performed By: #### C HEM7F, ACBC #### Testing performed at [address] [place] [address] Lymphocytes/100 WBC (Bld) 25.1 % Normal 20.0-55.0 [facility] Comment on above: Performed By: #### C HEM7F ACBC #### Testing performed at [address] [address] MCH (RBC) [Entitic mass] 30.4 pg Normal 26.0-35.0 [facility] Comment on above: Performed By: #### C HEM7F, ACBC #### Testing performed at [address] [address] MCHC (RBC) [Mass/Vol] 33.6 g/dL Normal 27.0-37.0 [facility] Comment on above: Performed By: #### C HEM7F, ACBC #### Testing performed at [address] [address] MCV (RBC) [Entitic vol] 90.6 fL Normal 80.0-100.0 [facility] Comment on above: Performed By: #### C HEM7F, ACBC #### Testing performed at [address] [address] Monocytes (Bld) [#/Vol] 0.9 10*3/uL High 0.0-0.7 [facility] Comment on above: Performed By: #### C HEM7F, ACBC #### Testing performed at [address] [address] Monocytes/100 WBC (Bld) 9.5 % Normal 0.0-10.0 [facility] Comment on above: Performed By: #### C HEM7F, ACBC #### Testing performed at [address] [address] Neutrophils/100 WBC (Bld) 60.1 % Normal 37.0-75.0 [facility] Comment on above: Performed By: #### C HEM7F, ACBC #### Testing performed at [address] [address] Platelet mean volume (Bld) [Entitic vol] 6.9 fL Low 7.4-11.0 [facility] Comment on above: Performed By: #### C HEM7F, ACBC #### Testing performed at [address] [address] Platelets (Bld) [#/Vol] 434 10*3/uL High 130-400 [facility] Comment on above: Performed By: #### C HEM7F, ACBC #### Testing performed at [address] [address] RBC (Bld) [#/Vol] 4.93 10*6/uL Normal 4.0-6.1 [facility] Comment on above: Performed By: #### C HEM7F, ACBC #### Testing performed at [address] [address] WBC (Bld) [#/Vol] 8.9 10*3/uL Normal 3.6-11.0 [facility] Comment on above: Performed By: #### C HEM7F, ACBC #### Testing performed at [address] [address] CBC, EDIF, PLATELETon 2023 ABSOLUTE BASOPHIL COUNT 0.1 10*3/uL 0.0 - 0.2 10*3/uL [facility] Basophils/100 WBC (Bld) 1.3 % 0.0 - 2.0 % [facility] Differential cell count method Nom (Bld) AUTO DIFF % [facility] Eosinophils (Bld) [#/Vol] 0.4 10*3/uL 0.0 - 0.7 10*3/uL [facility] Eosinophils/100 WBC (Bld) 4.0 % 0.0 - 11.0 % [facility] Erythrocyte distribution width (RBC) [Ratio] 15.4 % High 11.5 - 14.5 % [facility] Hematocrit (Bld) [Volume fraction] 44.7 % 42.0 - 52.0 % [facility] Hemoglobin (Bld) [Mass/Vol] 15.0 g/dL [facility] Interpretation and review of laboratory results Abnormal [facility] Lymphocytes (Bld) [#/Vol] 2.2 10*3/uL 1.2 - 3.4 10*3/uL [facility] Lymphocytes/100 WBC (Bld) 25.1 % 20.0 - 55.0 % [facility] MCH (RBC) [Entitic mass] 30.4 pg 26.0 - 35.0 PG [facility] MCHC (RBC) [Mass/Vol] 33.6 g/dL [facility] MCV (RBC) [Entitic vol] 90.6 fL [facility] Monocytes (Bld) [#/Vol] 0.9 10*3/uL High 0.0 - 0.7 10*3/uL [facility] Monocytes/100 WBC (Bld) 9.5 % 0.0 - 10.0 % [facility] Neutrophils (Bld) [#/Vol] 5.4 10*3/uL 1.4 - 6.5 10*3/uL [facility] Neutrophils/100 WBC (Bld) 60.1 % 37.0 - 75.0 % [facility] Platelet mean volume (Bld) [Entitic vol] 6.9 fL Low [facility] Platelets (Bld) [#/Vol] 434 10*3/uL High 130 - 400 10*3/uL [facility] RBC (Bld) [#/Vol] 4.93 10*6/uL 4.0 - 6.1 10*6/uL [facility] WBC (Bld) [#/Vol] 8.9 10*3/uL 3.6 - 11.0 10*3/uL [facility] CHEM 7 FASTINGon 12-21-2023 Chloride [Moles/Vol] 108 mmol/L High 98-107 [facility] Comment on above: Result Comment: [place] domínguez note: Triglyceride levels of 600mg/dL or higher may positively bias chloride results by approximately 2.1 mmol Performed By: #### C HEM7F, ACBC #### Testing performed at [address] [address] CO2 [Moles/Vol] 26 mmol/L Normal 22-30 [facility] Comment on above: Performed By: #### C HEM7F, ACBC #### Testing performed at [address] [address] Creatinine [Mass/Vol] 1.10 mg/dL Normal 0.70-1.20 [facility] Comment on above: Performed By: #### C HEM7F, ACBC #### Testing performed at [address] [address] EST. GFR, 84 ml/min/1.73sq.m Normal [facility] Comment on above: Performed By: #### C HEM7F, ACBC #### Testing performed at [address] [address] EST. GFR,Non 70 ml/min/1.73sq.m [facility] Comment on above: Performed By: #### C HEM7F, ACBC #### Testing performed at [address] [address] GFR Information Average GFR for 70+ years old = 75. Normal [facility] Comment on above: Result Comment: [employer] isaiah Kidney disease, GFR = <60. Kidney failure, GFR = <15. The GFR estimate is not adjusted for extreme body surface area or acute process, nor has it been validated for women or ethnic groups other than and . Performed By: #### C HEM7F, ACBC #### Testing performed at [place] [id number] Glucose [Mass/Vol] 90 mg/dL Normal 70-100 [facility] Comment on above: Result Comment: NORMAL <100 mg/dL PREDIABETES 101-126 mg/dL DIABETES 126 mg/dL or higher Performed By: #### C HEM7F ACBC #### Testing performed at [address] [address] Potassium [Moles/Vol] 4.2 mmol/L Normal 3.5-5.1 [facility] Comment on above: Performed By: #### C HEM7F, ACBC #### Testing performed at [address] [address] Sodium [Moles/Vol] 139 mmol/L Normal 137-145 [facility] Comment on above: Performed By: #### C HEM7F, ACBC #### Testing performed at [address] [address] Urea nitrogen [Mass/Vol] 15 mg/dL Normal 7-20 [facility] Comment on above: Performed By: #### C HEM7F, ACBC #### Testing performed at [address] [address] CHEM 7 (LYTES,BUN,CREA,GLUC) on 12-21-2023 Chloride [Moles/Vol] 108 mmol/L High [facility] Comment on above: Please note: Triglyc eride levels of 600mg/dL or higher may positively bias chloride results by approximately 2.1 mmol CO2 [Moles/Vol] 26 mmol/L [facility] Creatinine [Mass/Vol] 1.10 mg/dL [facility] GFR COMMENT Average GFR for 70+ years old = 75. [facility] Comment on above: Chronic Kidney disea se, GFR = <60. Kidney failure, GFR = <15. The GFR estimate is not adjusted for extreme body surface area or acute process, nor has it been validated for women or ethnic groups other than and . GFR/1.73 sq M.predicted among blacks MDRD (S/P/Bld) [Vol rate/Area] 84 mL/min/{1.73_m2} ml/min/1.73sq .m [facility] GFR/1.73 sq M.predicted among non-blacks MDRD (S/P/Bld) [Vol rate/Area] 70 mL/min/{1.73_m2} ml/min/1.73sq .m [facility] Glucose post fast [Mass/Vol] 90 mg/dL [facility] Comment on above: NORMAL <100 mg/dL PREDIABETES 101-126 mg/dL DIABETES 126 mg/dL or higher Interpretation and review of laboratory results Abnormal [facility] Potassium [Moles/Vol] 4.2 mmol/L [facility] Sodium [Moles/Vol] 139 mmol/L [facility] Urea nitrogen [Mass/Vol] 15 mg/dL [facility] TROPONIN I, HIGH SENSITIVITY on 12-21-2023 TROPONIN I, HIGH SENSITIVITY 5 pg/mL 0 - 20 pg/mL [facility] Comment on above: Indeterminant: >12 to 100 pg/mL female >20 to 100 pg/mL male Indicative of myocardial injury. Serial sampling is recommended, a change of greater than or equal to 20 pg/mL is indicative of acute coronary syndrome. [facility] TROPONIN I, HIGH SENSITIVITY 5 pg/mL Normal 0-20 [facility] Comment on above: Result Comment: Indeterminant: >12 to 100 pg/mL female >20 to 100 pg/mL male Indicative of myocardial injury. Serial sampling is recommended, a change of greater than or equal to 20 pg/mL is indicative of acute coronary syndrome. Performed By: #### T ROHS #### Testing performed at [address] [address] CBCon 12-07-2023 ABSOLUTE BAS 0.0 10*3/uL Normal 0.0-0.2 [facility] Comment on above: Performed By: #### C HEM7F ACBC #### Testing performed at [address] [address] ABSOLUTE EOS 0.4 10*3/uL Normal 0.0-0.7 [facility] Comment on above: Performed By: #### C HEM7F ACBC #### Testing performed at [address] [address] ABSOLUTE NEUTROPHIL COUNT 4.9 10*3/uL Normal 1.4-6.5 [facility] Comment on above: Performed By: #### C HEM7F ACBC #### Testing performed at [address] [address] Basophils/100 WBC (Bld) 0.7 % Normal 0.0-2.0 [facility] Comment on above: Performed By: #### C HEM7F ACBC #### Testing performed at [address] [address] DTYPE AUTO DIFF Normal [facility] Comment on above: Performed By: #### C HEM7F, ACBC #### Testing performed at [address] [address] Eosinophils/100 WBC (Bld) 5.2 % Normal 0.0-11.0 [facility] Comment on above: Performed By: #### C HEM7F, ACBC #### Testing performed at [address] [address] Lymphocytes (Bld) [#/Vol] 1.4 10*3/uL Normal 1.2-3.4 [facility] Comment on above: Performed By: #### C HEM7F, ACBC #### Testing performed at [facility] [place] [facility] [address] [place] [address] Lymphocytes/100 WBC (Bld) 18.6 % Low 20.0-55.0 [facility] Comment on above: Performed By: #### C HEM7F ACBC #### Testing performed at [address] [address] Monocytes (Bld) [#/Vol] 0.8 10*3/uL High 0.0-0.7 [facility] Comment on above: Performed By: #### C HEM7F, ACBC #### Testing performed at [address] [address] Monocytes/100 WBC (Bld) 10.3 % High 0.0-10.0 [facility] Comment on above: Performed By: #### C HEM7F ACBC #### Testing performed at [address] [address] Neutrophils/100 WBC (Bld) 65.2 % Normal 37.0-75.0 [facility] Comment on above: Performed By: #### C HEM7F ACBC #### Testing performed at [address] [address] Erythrocyte distribution width (RBC) [Ratio] 14.3 % Normal 11.5-14.5 [facility] Comment on above: Performed By: #### C HEM7F ACBC #### Testing performed at [address] [address] Hematocrit (Bld) [Volume fraction] 45.4 % Normal 42.0-52.0 [facility] Comment on above: Performed By: #### C HEM7F, ACBC #### Testing performed at [address] [address] Hemoglobin (Bld) [Mass/Vol] 15.5 g/dL Normal 14.0-18.0 [facility] Comment on above: Performed By: #### C HEM7F, ACBC #### Testing performed at [address] [address] MCH (RBC) [Entitic mass] 30.8 pg Normal 26.0-35.0 [facility] Comment on above: Performed By: #### C HEM7F, ACBC #### Testing performed at [address] [address] MCHC (RBC) [Mass/Vol] 34.2 g/dL Normal 27.0-37.0 [facility] Comment on above: Performed By: #### C HEM7F ACBC #### Testing performed at [address] [address] MCV (RBC) [Entitic vol] 90.2 fL Normal 80.0-100.0 [facility] Comment on above: Performed By: #### C HEM7F, ACBC #### Testing performed at [address] [address] Platelet mean volume (Bld) [Entitic vol] 7.3 fL Low 7.4-11.0 [facility] Comment on above: Performed By: #### C HEM7F, ACNATASHA #### Testing performed at [address] [address] Platelets (Bld) [#/Vol] 377 10*3/uL Normal 130-400 [facility] Comment on above: Performed By: #### C HEM7F ACBC #### Testing performed at [address] [address] RBC (Bld) [#/Vol] 5.04 10*6/uL Normal 4.0-6.1 [facility] Comment on above: Performed By: #### C HEM7F, ACBC #### Testing performed at [address] [address] WBC (Bld) [#/Vol] 7.6 10*3/uL Normal 3.6-11.0 [facility] Comment on above: Performed By: #### C HEM7F, ACBC #### Testing performed at [address] [address] CBC, EDIF, PLATELETon 2023 ABSOLUTE BASOPHIL COUNT 0.0 10*3/uL 0.0 - 0.2 10*3/uL [facility] Basophils/100 WBC (Bld) 0.7 % 0.0 - 2.0 % [facility] Differential cell count method Nom (Bld) AUTO DIFF % [facility] Eosinophils (Bld) [#/Vol] 0.4 10*3/uL 0.0 - 0.7 10*3/uL [facility] Eosinophils/100 WBC (Bld) 5.2 % 0.0 - 11.0 % [facility] Erythrocyte distribution width (RBC) [Ratio] 14.3 % 11.5 - 14.5 % [facility] Hematocrit (Bld) [Volume fraction] 45.4 % 42.0 - 52.0 % [facility] Hemoglobin (Bld) [Mass/Vol] 15.5 g/dL [facility] Interpretation and review of laboratory results Abnormal [facility] Lymphocytes (Bld) [#/Vol] 1.4 10*3/uL 1.2 - 3.4 10*3/uL [facility] Lymphocytes/100 WBC (Bld) 18.6 % Low 20.0 - 55.0 % [facility] MCH (RBC) [Entitic mass] 30.8 pg 26.0 - 35.0 PG [facility] MCHC (RBC) [Mass/Vol] 34.2 g/dL [facility] MCV (RBC) [Entitic vol] 90.2 fL [facility] Monocytes (Bld) [#/Vol] 0.8 10*3/uL High 0.0 - 0.7 10*3/uL [facility] Monocytes/100 WBC (Bld) 10.3 % High 0.0 - 10.0 % [facility] Neutrophils (Bld) [#/Vol] 4.9 10*3/uL 1.4 - 6.5 10*3/uL [facility] Neutrophils/100 WBC (Bld) 65.2 % 37.0 - 75.0 % [facility] Platelet mean volume (Bld) [Entitic vol] 7.3 fL Low [facility] Platelets (Bld) [#/Vol] 377 10*3/uL 130 - 400 10*3/uL [facility] RBC (Bld) [#/Vol] 5.04 10*6/uL 4.0 - 6.1 10*6/uL [facility] WBC (Bld) [#/Vol] 7.6 10*3/uL 3.6 - 11.0 10*3/uL [facility] CMP FASTINGon 12-07-2023 A:G RATIO 1.4 RATIO Normal [facility] Comment on above: Performed By: #### C HEM7F ACBC #### Testing performed at [address] [address] ALBUMIN 4.0 G/dl Normal 3.5-5.0 [facility] Comment on above: Performed By: #### C HEM7F, ACBC #### Testing performed at [address] [address] ALP [Catalytic activity/Vol] 99 U/L Normal 38-126 [facility] Comment on above: Performed By: #### C HEM7F, ACBC #### Testing performed at [address] [address] ALT [Catalytic activity/Vol] 21 U/L Normal <50 [facility] Comment on above: Performed By: #### C HEM7F, ACBC #### Testing performed at [address] [address] AST [Catalytic activity/Vol] 20 U/L Normal 17-59 [facility] Comment on above: Performed By: #### C HEM7F, ACBC #### Testing performed at [address] [address] Bilirubin [Mass/Vol] 0.4 mg/dL Normal 0.2-1.3 [facility] Comment on above: Performed By: #### C HEM7F, ACBC #### Testing performed at [address] [address] Calcium [Mass/Vol] 8.6 mg/dL Normal 8.4-10.2 [facility] Comment on above: Performed By: #### C HEM7F, ACBC #### Testing performed at [address] [address] Chloride [Moles/Vol] 105 mmol/L Normal 98-107 [facility] Comment on above: Result Comment: Paris domínguez note: Triglyceride levels of 600mg/dL or higher may positively bias chloride results by approximately 2.1 mmol Performed By: #### C HEM7F, ACBC #### Testing performed at [address] [address] CO2 [Moles/Vol] 29 mmol/L Normal 22-30 [facility] Comment on above: Performed By: #### C HEM7FSTEFAN #### Testing performed at [address] [address] Creatinine [Mass/Vol] 1.30 mg/dL High 0.70-1.20 [facility] Comment on above: Performed By: #### C HEM7FSTEFAN #### Testing performed at [address] [address] EST. GFR, 70 ml/min/1.73sq.m [facility] Comment on above: Performed By: #### C HEM7FSTEFAN #### Testing performed at [address] [address] EST. GFR,Non 58 ml/min/1.73sq.m [facility] Comment on above: Performed By: #### C HEM7FSTEFAN #### Testing performed at [place] [id number] GFR Information Average GFR for 70+ years old = 75. Normal [facility] Comment on above: Result Comment: [employer] isaiah Kidney disease, GFR = <60. Kidney failure, GFR = <15. The GFR estimate is not adjusted for extreme body surface area or acute process, nor has it been validated for women or ethnic groups other than and . Performed By: #### C HEM7FSTEFAN #### Testing performed at [place] [id number] Glucose [Mass/Vol] 111 mg/dL High 70-100 [facility] Comment on above: Result Comment: NORMAL <100 mg/dL PREDIABETES 101-126 mg/dL DIABETES 126 mg/dL or higher Performed By: #### C HEM7FSTEFAN #### Testing performed at [place] [id number] Potassium [Moles/Vol] 4.1 mmol/L Normal 3.5-5.1 [facility] Comment on above: Performed By: #### C HEM7FSTEFAN #### Testing performed at [address] [address] Protein [Mass/Vol] 6.8 g/dL Normal 6.3-8.2 [facility] Comment on above: Performed By: #### C HEM7FSTEFAN #### Testing performed at [address] [address] Sodium [Moles/Vol] 138 mmol/L Normal 137-145 [facility] Comment on above: Performed By: #### C HEM7FSTEFAN #### Testing performed at [address] [address] Urea nitrogen [Mass/Vol] 18 mg/dL Normal 7-20 [facility] Comment on above: Performed By: #### C HEM7FSTEFAN #### Testing performed at [address] [address] COMPREHENSIVE METABOLIC PANE Karri 12-07-2023 Albumin [Mass/Vol] 4.0 G/dl 3.5 - 5.0 G/dl [facility] Albumin/Globulin [Mass ratio] 1.4 {ratio} RATIO [facility] ALP [Catalytic activity/Vol] 99 U/L [facility] ALT [Catalytic activity/Vol] 21 U/L NINF [facility] AST [Catalytic activity/Vol] 20 U/L [facility] Bilirubin [Mass/Vol] 0.4 mg/dL [facility] Calcium [Mass/Vol] 8.6 mg/dL [facility] Chloride [Moles/Vol] 105 mmol/L [facility] Comment on above: Please note: Triglyc eride levels of 600mg/dL or higher may positively bias chloride results by approximately 2.1 mmol CO2 [Moles/Vol] 29 mmol/L [facility] Creatinine [Mass/Vol] 1.30 mg/dL High [facility] GFR COMMENT Average GFR for 70+ years old = 75. [facility] Comment on above: Chronic Kidney disea se, GFR = <60. Kidney failure, GFR = <15. The GFR estimate is not adjusted for extreme body surface area or acute process, nor has it been validated for women or ethnic groups other than and . GFR/1.73 sq M.predicted among blacks MDRD (S/P/Bld) [Vol rate/Area] 70 mL/min/{1.73_m2} ml/min/1.73sq .m [facility] GFR/1.73 sq M.predicted among non-blacks MDRD (S/P/Bld) [Vol rate/Area] 58 mL/min/{1.73_m2} ml/min/1.73sq .m [facility] Glucose post fast [Mass/Vol] 111 mg/dL High [facility] Comment on above: NORMAL <100 mg/dL PREDIABETES 101-126 mg/dL DIABETES 126 mg/dL or higher Interpretation and review of laboratory results Abnormal [facility] Potassium [Moles/Vol] 4.1 mmol/L [facility] Protein [Mass/Vol] 6.8 g/dL [facility] Sodium [Moles/Vol] 138 mmol/L [facility] Urea nitrogen [Mass/Vol] 18 mg/dL [facility] INFLUENZA A AND B, PCRon FLUAV and FLUBV Ag IF Nom (Unsp spec) Negative NEGATIVE [facility] FLUBV Ag IA Ql (Unsp spec) Negative NEGATIVE [facility] Comment on above: TESTING PERFORMED BY [place] MAGNESIUMon 12-07-2023 Magnesium [Mass/Vol] 2.3 mg/dL [facility] Magnesium [Mass/Vol] 2.3 mg/dL Normal 1.6-2.3 [facility] Comment on above: Performed By: #### C HEM7FSTEFAN #### Testing [place] [address] NOVEL CORONAVIRUSon 12-07-19 24 NARRATIVE This test was performed using isothermal [place] and has been approved as Emergency Use Authorization (EUA) for the qualitative detection [id number] nucleic acid. Normal [facility] Comment on above: Performed By: #### C HEM7FSTEFAN #### Testing performed at [place] [id number] SARS-CoV-2 (COVID-19) RNA [place]+probe Ql (Unsp spec) Not detected Normal NOT DETECTED [facility] Comment on above: Result Comment: Nega tive [...] or clinically deteriorating. Performed By: #### C HEM7F, ACBC #### Testing [place] [address] NOVEL CORONAVIRUS LAB 1 - NA SOPHARYNGEALon 12-07-2023 NARRATIVE -1 This test was performed using isothermal [place] and has been approved as Emergency Use Authorization (EUA) for the qualitative detection [id number] nucleic acid. [facility] SARS-CoV-2 (COVID-19) RNA [place]+probe Ql (Unsp spec) Not detected NOT DETECTED [facility] Comment on above: Negative results [...] patient is critically ill or clinically deteriorating. [facility] No Panel Informationon 12-06 [facility] RAPID FLU Aon 12-07-2023 INFLUENZA A Negative Normal NEGATIVE [facility] Comment on above: Performed By: #### R FLUAB #### Testing performed at [address] [address] INFLUENZA B Negative Normal NEGATIVE [facility] Comment on above: Result Comment: TEST ING PERFORMED BY [place] Performed By: #### R FLUAB #### Testing performed at [address] [address] RESPIRATORY SYNCYTIAL VIRUS PCRon 12-07-2023 RSV Ag IA Ql (Unsp spec) Negative NEGATIVE [facility] RSVon 12-07-2023 RSV Negative Normal NEGATIVE [facility] Comment on above: Performed By: #### T ROHS #### Testing performed at [address] [address] TROPONIN I, HIGH SENSITIVITY on 12-07-2023 TROPONIN I, HIGH SENSITIVITY 16 pg/mL 0 - 20 pg/mL [facility] Comment on above: Indeterminant: >12 to 100 pg/mL female >20 to 100 pg/mL male Indicative of myocardial injury. Serial sampling is recommended, a change of greater than or equal to 20 pg/mL is indicative of acute coronary syndrome. [facility] TROPONIN I, HIGH SENSITIVITY 16 pg/mL Normal 0-20 [facility] Comment on above: Result Comment: Indeterminant: >12 to 100 pg/mL female >20 to 100 pg/mL male Indicative of myocardial injury. Serial sampling is recommended, a change of greater than or equal to 20 pg/mL is indicative of acute coronary syndrome. Performed By: #### T ROHS #### Testing performed at [address] [address] XR CHEST PA 1 VIEWon 024 XR CHEST PA 1 VIEW XR CHEST PA 1 VIEW 12/06/2023 11:47 PM CDT: History: Shortness of breath Comparison: 08/23/2023 Technique: 1 view chest Findings: The cardiomediastinal silhouette is normal. The lungs are clear without infiltrate, effusion, or pneumothorax. The bones are intact. Impression: No acute cardiopulmonary process. Normal [facility] XR Chest PA uprighton 2023 Impression: No acute cardiopulmonary process. RADIOLOGY XR CHEST PA 1 VIEW 12/06/2023 11:47 PM CDT: History: Shortness of breath Comparison: 08/23/2023 Technique: 1 view chest Findings: The cardiomediastinal silhouette is normal. The lungs are clear without infiltrate, effusion, or pneumothorax. The bones are intact. RADIOLOGY jC JASSO, Nate Cervantes MD - 12/07/2023 XR CHEST PA 1 VIEW 12/06/2023 11:47 PM CDT: History: Shortness of breath Comparison: 08/23/2023 Technique: 1 view chest Findings: The cardiomediastinal silhouette is normal. The lungs are clear without infiltrate, effusion, or pneumothorax. The bones are intact. IMPRESSION Impression: No acute cardiopulmonary process. [facility] Radiology Study observation (narrative) [facility] XR Chest PA uprightOrdered B y: Nate Corona on 12-07-2023 [facility] SPECT Heart perfusion at res t and [...] HR: 61 bpm Max Heart Rate (APMHR): 147.699857 bpm Max HR Achieved: 78 bpm Target HR (85% APMHR): 124.402461 bpm % of APMHR: 53.06 Recovery HR: 67 bpm HR response to stress: Normal HR response to stress BP Resting BP: 130/74 mmHg Max BP: 137/78 mmHg BP response to stress: Normal blood pressure response to stress. ECG Resting ECG: normal ST Change: none Arrhythmia: none Conclusion nondiagnostic stress test, O2 sat 96% CARDIOLOGY David Yepez, DO - 11/01/2023 ADDENDUM APPROVED REPORT NM [...] Resting HR: 61 bpmMax Heart Rate (APMHR): 147.370677 bpm Max HR Achieved: 78 bpmTarget HR (85% APMHR): 124.312670 bpm % of APMHR: 53.06 Recovery HR: 67 bpm HR response to stress: Normal HR response to stress BP Resting BP: 130/74 mmHg Max BP: 137/78 mmHg BP response to stress: Normal blood pressure response to stress. ECG Resting ECG: normal ST Change: none Arrhythmia: none Conclusion nondiagnostic stress test, O2 sat 96% [facility] Radiology Study observation (narrative) [facility] SPECT Heart perfusion at res t and W stress and W radionuclide IVOrdered By: David Yepez on 10-31-2023 [facility] Work Phone: CBC, EDIF, PLATELETon 2023 ABSOLUTE BASOPHIL COUNT 0.0 10*3/uL 0.0 - 0.2 10*3/uL [facility] Basophils/100 WBC (Bld) 0.7 % 0.0 - 2.0 % [facility] Differential cell count method Nom (Bld) AUTO DIFF % [facility] Eosinophils (Bld) [#/Vol] 0.1 10*3/uL 0.0 - 0.7 10*3/uL [facility] Eosinophils/100 WBC (Bld) 3.0 % 0.0 - 11.0 % [facility] Erythrocyte distribution width (RBC) [Ratio] 14.4 % 11.5 - 14.5 % [facility] Hematocrit (Bld) [Volume fraction] 46.2 % 42.0 - 52.0 % [facility] Hemoglobin (Bld) [Mass/Vol] 15.8 g/dL [facility] Interpretation and review of laboratory results Abnormal [facility] Lymphocytes (Bld) [#/Vol] 1.7 10*3/uL 1.2 - 3.4 10*3/uL [facility] Lymphocytes/100 WBC (Bld) 37.8 % 20.0 - 55.0 % [facility] MCH (RBC) [Entitic mass] 30.7 pg 26.0 - 35.0 PG [facility] MCHC (RBC) [Mass/Vol] 34.3 g/dL [facility] MCV (RBC) [Entitic vol] 89.4 fL [facility] Monocytes (Bld) [#/Vol] 0.8 10*3/uL High 0.0 - 0.7 10*3/uL [facility] Monocytes/100 WBC (Bld) 17.1 % High 0.0 - 10.0 % [facility] Neutrophils (Bld) [#/Vol] 1.9 10*3/uL 1.4 - 6.5 10*3/uL [facility] Neutrophils/100 WBC (Bld) 41.4 % 37.0 - 75.0 % [facility] Platelet mean volume (Bld) [Entitic vol] 7.1 fL Low [facility] Platelets (Bld) [#/Vol] 231 10*3/uL 130 - 400 10*3/uL [facility] RBC (Bld) [#/Vol] 5.16 10*6/uL 4.0 - 6.1 10*6/uL [facility] WBC (Bld) [#/Vol] 4.6 10*3/uL 3.6 - 11.0 10*3/uL [facility] COMPREHENSIVE METABOLIC PANE Karri 08-23-2023 Albumin [Mass/Vol] 4.1 G/dl 3.5 - 5.0 G/dl [facility] Albumin/Globulin [Mass ratio] 1.4 {ratio} RATIO [facility] ALP [Catalytic activity/Vol] 95 U/L [facility] ALT [Catalytic activity/Vol] 24 U/L NINF [facility] AST [Catalytic activity/Vol] 31 U/L [facility] Bilirubin [Mass/Vol] 0.5 mg/dL [facility] Calcium [Mass/Vol] 8.4 mg/dL [facility] Chloride [Moles/Vol] 103 mmol/L [facility] Comment on above: Please note: Triglyc eride levels of 600mg/dL or higher may positively bias chloride results by approximately 2.1 mmol CO2 [Moles/Vol] 27 mmol/L [facility] Creatinine [Mass/Vol] 1.10 mg/dL [facility] GFR COMMENT Average GFR for 70+ years old = 75. [facility] Comment on above: Chronic Kidney disea se, GFR = <60. Kidney failure, GFR = <15. The GFR estimate is not adjusted for extreme body surface area or acute process, nor has it been validated for women or ethnic groups other than and . GFR/1.73 sq M.predicted among blacks MDRD (S/P/Bld) [Vol rate/Area] 84 mL/min/{1.73_m2} ml/min/1.73sq .m [facility] GFR/1.73 sq M.predicted among non-blacks MDRD (S/P/Bld) [Vol rate/Area] 70 mL/min/{1.73_m2} ml/min/1.73sq .m [facility] Glucose post fast [Mass/Vol] 100 mg/dL [facility] Comment on above: NORMAL <100 mg/dL PREDIABETES 101-126 mg/dL DIABETES 126 mg/dL or higher Interpretation and review of laboratory results Abnormal [facility] Potassium [Moles/Vol] 3.8 mmol/L [facility] Protein [Mass/Vol] 7.1 g/dL [facility] Sodium [Moles/Vol] 135 mmol/L Low [facility] Urea nitrogen [Mass/Vol] 14 mg/dL [facility] CT Pulmonary arteries for pu lmonary emboluson [...] of pulmonary embolus or acute intrathoracic abnormality. [facility] Radiology Study observation (narrative) [facility] CT Pulmonary arteries for pu lmonary embolusOrdered By: Tabby Reynaga on 08-23-2023 [facility] Work Phone: D-DIMER,QUANTITATIVEon 08-23 Fibrin D-dimer FEU (PPP) [Mass/Vol] 0.52 Critically high NINF [facility] Comment on above: If result [...] Interpretation and review of laboratory results Abnormal [facility] INFLUENZA A AND B, PCRon FLUAV and FLUBV Ag IF Nom (Unsp spec) Negative NEGATIVE [facility] FLUBV Ag IA Ql (Unsp spec) Negative NEGATIVE [facility] Comment on above: TESTING PERFORMED BY [place] [facility] NOVEL CORONAVIRUS LAB 1 - NA SOPHARYNGEALon 08-23-2023 NARRATIVE -1 This test was performed using isothermal [place] and has been approved as Emergency Use Authorization (EUA) for the qualitative detection [id number] nucleic acid. [facility] SARS-CoV-2 (COVID-19) RNA [place]+probe Ql (Unsp spec) Not detected NOT DETECTED [facility] Comment on above: Negative results [...] patient is critically ill or clinically deteriorating. [facility] RESPIRATORY SYNCYTIAL VIRUS PCRon 08-23-2023 RSV Ag IA Ql (Unsp spec) Negative NEGATIVE [facility] TROPONIN I, HIGH SENSITIVITY on 08-23-2023 TROPONIN I, HIGH SENSITIVITY 3 pg/mL 0 - 20 pg/mL [facility] Comment on above: Indeterminant: >12 to 100 pg/mL female >20 to 100 pg/mL male Indicative of myocardial injury. Serial sampling is recommended, a change of greater than or equal to 20 pg/mL is indicative of acute coronary syndrome. [facility] XR Chest PA uprighton 2023 IMPRESSION: There [...] IMPRESSION: There is no acute cardiopulmonary process. [facility] Radiology Study observation (narrative) [facility] XR Chest PA uprightOrdered B y: Raymond Adams on 08-23-2023 [facility] Work Phone: CT Neck W contrast Ceci 11-1 IMPRESSION: 1. No extranodal soft tissue mass, [...] 2. 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 [facility] Radiology Study observation (narrative) [facility] CT Neck W contrast IVOrdered By: Jessenia Stewart on 05-11-2023 [facility] Work Phone: [place] Neck[place] 04-10-2023 IMPRESSION: The [...] could further investigate a suspicious palpable lesion [facility] Radiology Study observation (narrative) [facility] [place] NeckOrdered By: Edwin Nichole on 04-10-2023 [facility] Work Phone: CBC AUTO DIFFon 11-23-2022 BASO # 0.1 103/ul Normal 0.0-0.1 [facility] Comment on above: Performed By: #### C MP BNP, YESI #### [facility] [address] [place] [address] Dr. Emilie Stack Basophils/100 WBC (Bld) 0.9 % Normal 0.2-2.0 [facility] Comment on above: Performed By: #### C FRANCES BNP, YESI #### [facility] [address] [place] [address] Dr. Emilie Stack EO # 0.0 103/ul Normal 0.0-0.7 [facility] Comment on above: Performed By: #### C MP, BNP, YESI #### [facility] [address] [place] [address] Dr. Emilie Stack Eosinophils/100 WBC (Bld) 0.7 % Critically low 0.9-7.0 [facility] Comment on above: Performed By: #### C MP, BNP, YESI #### [facility] [address] [place] [address] Dr. Emilie Stack Erythrocyte distribution width (RBC) [Ratio] 13.9 % Normal 11.0-15.0 [facility] Comment on above: Performed By: #### C MP, BNP, YESI #### [facility] [address] [address] [address] Emilie Stack Hematocrit (Bld) [Volume fraction] 45.3 % Normal 42.0-54.0 [facility] Comment on above: Performed By: #### C MP, BNP, YEIS #### [facility] [address] [place] [address] Dr. Emilie Stack Hemoglobin (Bld) [Mass/Vol] 15.2 g/dL Normal 14.0-18.0 [facility] Comment on above: Performed By: #### C MP, BNP, YESI #### [facility] [address] [place] [address] Dr. Emilie Stack IG # 0.02 10e3/ul Normal 0.00-0.03 [facility] Comment on above: Performed By: #### C MP, BNP, YESI #### [facility] [address] [place] [address] Dr. Emilie Stack IG % 0.4 % Normal 0.0-0.5 [facility] Comment on above: Performed By: #### C MP, BNP, YESI #### [facility] [address] [address] [address] Emilie Stack LYMPH # 0.9 103/ul Critically low 1.2-3.8 [facility] Comment on above: Performed By: #### C MP, BNP, YESI #### [facility] [address] [place] [address] Dr. Emilie Stack Lymphocytes/100 WBC (Bld) 16.2 % Critically low 20.5-60.0 [facility] Comment on above: Performed By: #### C MP, BNP, YESI #### [facility] [address] [place] [address] Dr. Emilie Stack MANUAL DIFF REQ NO Normal [facility] Comment on above: Performed By: #### C MP, BNP, YESI #### [facility] [address] [place] [address] Dr. Emilie Stack MCH (RBC) [Entitic mass] 30.5 pg Normal 25.9-34.0 [facility] Comment on above: Performed By: #### C MP, BNP, YESI #### [facility] [address] [place] [address] Dr. Emilie Stack MCHC (RBC) [Mass/Vol] 33.6 g/dL Normal 29.9-35.2 [facility] Comment on above: Performed By: #### C MP, BNP, YESI #### [facility] [address] [place] [address] Dr. Emilie Stack MCV (RBC) [Entitic vol] 90.8 fL Normal 80.0-94.0 [facility] Comment on above: Performed By: #### C MP, BNP, YESI #### [facility] [address] [place] [address] Dr. Emilie Stack MONO # 0.8 103/ul Normal 0.3-0.8 [facility] Comment on above: Performed By: #### C MP, BNP, YESI #### [facility] [address] [place] [address] Dr. Emilie Stack Monocytes/100 WBC (Bld) 15.1 % Critically high 1.7-12.0 [facility] Comment on above: Performed By: #### C MP, BNP, YESI #### [facility] [address] [place] [address] Dr. Emilie Stack NEUT # 3.7 103/ul Normal 1.4-6.5 [facility] Comment on above: Performed By: #### C MP, BNP, YESI #### [facility] [address] [place] [address] Dr. Emilie Stack Neutrophils/100 WBC (Bld) 66.7 % Normal 43.0-75.0 [facility] Comment on above: Performed By: #### C MP, BNP, YESI #### [facility] [address] [place] [address] Dr. Emilie Stack Platelet mean volume (Bld) [Entitic vol] 8.6 fL Critically low 9.5-13.5 [facility] Comment on above: Performed By: #### C MP, BNP, YESI #### [facility] [address] [place] [address] Dr. Emilie Stack PLT 301 103/ul Normal 150-450 [facility] Comment on above: Performed By: #### C MP, BNP, YESI #### [facility] [address] [address] [address] Emilie Stack RBC 4.99 106/ul Normal 4.70-6.10 [facility] Comment on above: Performed By: #### C MP, BNP, YESI #### [facility] [address] [address] [address] Emilie Stack WBC 5.5 103/ul Normal 4.0-11.0 [facility] Comment on above: Performed By: #### C MP, BNP, YESI #### [facility] [address] [place] [address] Dr. Emilie Stack Covid-19 PCR (CVDTBH)on 10-26 SARS-CoV-2 (COVID-19) RNA [place]+probe Ql (Unsp spec) Not detected Normal NOT DETECTED [facility] Comment on above: Result Comment: THIS TEST IS NOT APPROVED BY THE FDA. IT HAS BEEN AUTHORIZED FOR USE UNDER AN EMERGENCY USE AUTHORIZATION. Performed By: #### T ROSSY, CMP, BNP #### [facility] [address] [place] [address] Dr. Emilie Stack PROF CHEM 8 (BAS METB)on Anion gap [Moles/Vol] 14.2 mmol/L Normal [facility] Comment on above: Performed By: #### C MP, BNP, YESI #### [facility] [address] [place] [address] Dr. Emilie Stack Calcium [Mass/Vol] 8.7 mg/dL Normal 8.5-10.1 [facility] Comment on above: Performed By: #### C MP, BNP, YESI #### [facility] [address] [place] [address] Dr. Emilie Stack Chloride [Moles/Vol] 103 mmol/L Normal 98-107 [facility] Comment on above: Performed By: #### C MP, BNP, YESI #### [facility] [address] [address] [address] Emilie Stack CO2 [Moles/Vol] 25.9 mmol/L Normal 21.0-32.0 [facility] Comment on above: Performed By: #### C MP, BNP, YESI #### [facility] [address] [address] [address] Emilie Stack Creatinine [Mass/Vol] 1.16 mg/dL Normal 0.70-1.30 [facility] Comment on above: Performed By: #### C MP, BNP, YESI #### [facility] [address] [place] [address] Dr. Emilie Stack EGFR-AF KYRGYZ >60 Normal >=60 [facility] Comment on above: Performed By: #### C MP, BNP, YESI #### [facility] [address] [address] [address] Emilie Stack EGFR-NON AF KYRGYZ >60 Normal >=60 [facility] Comment on above: Performed By: #### C MP, BNP, YESI #### [facility] [address] [address] [address] Emilie Stack Glucose [Mass/Vol] 100 mg/dL Normal 74-106 [facility] Comment on above: Performed By: #### C MP, BNP, YESI #### [facility] [address] [address] [address] Emilie Stack Potassium [Moles/Vol] 4.1 mmol/L Normal 3.5-5.1 [facility] Comment on above: Performed By: #### C MP, BNP, YESI #### [facility] [address] [address] [address] Emilie Stack Sodium [Moles/Vol] 139 mmol/L Normal 136-145 [facility] Comment on above: Performed By: #### C MP, BNP, YESI #### [facility] [address] [place] [address] Dr. Emilie Stack Urea nitrogen [Mass/Vol] 10.0 mg/dL Normal 7.0-18.0 [facility] Comment on above: Performed By: #### C MP, BNP, YESI #### [facility] [address] [place] [address] Dr. Emilie Stack Urea nitrogen/Creatinine [Mass ratio] 8.6 mg/mg Normal [facility] Comment on above: Performed By: #### C MP, BNP, YESI #### [facility] [address] [place] [address] Dr. Emilie Stack SYMPTOMATIC COVID-19 ANTIGEN on 11-23-2022 EUA Statement SEE BELOW Normal [facility] Comment on above: Result Comment: This [...] By: #### T ROSSY, BNP, CMP #### [facility] [address] [place] [address] Dr. Emilie Stack SARS-CoV-2 (COVID-19) RNA [place]+probe Ql (Unsp spec) Negative Normal NEGATIVE [facility] Comment on above: Performed By: #### T ROSSY, BNP, CMP #### [facility] [address] [place] [address] Dr. Emilie Stack THEOPHYLLINEon 11-23-2022 THEOPHYLLINE 8.0 ug/mL Critically low 10.0-20.0 [facility] Comment on above: Performed By: #### C MP, BNP, YESI #### [facility] [address] [place] [address] Dr. Emilie Stack XR CHEST 1 Von [...] EDWIN NICHOLE Date: 2022-11-23 12:36 Normal [facility] BNPon 08-15-2022 Natriuretic peptide B (Bld) [Mass/Vol] 107.0 pg/mL Normal <=900.0 [facility] Comment on above: Performed By: #### C MP BNP, YESI #### [facility] [address] [place] [address] Dr. Emilie Stack CBC AUTO DIFFon 08-15-2022 BASO # 0.0 103/ul Normal 0.0-0.1 [facility] Comment on above: Performed By: #### C MP, BNP, YESI #### [facility] [address] [place] [address] Dr. Emilie Stack Basophils/100 WBC (Bld) 0.2 % Normal 0.2-2.0 [facility] Comment on above: Performed By: #### C MP, BNP, YESI #### [facility] [address] [place] [address] Dr. Emilie Stack EO # 0.0 103/ul Normal 0.0-0.7 [facility] Comment on above: Performed By: #### C MP, BNP, YESI #### [facility] [address] [place] [address] Dr. Emilie Stack Eosinophils/100 WBC (Bld) 0.0 % Critically low 0.9-7.0 [facility] Comment on above: Performed By: #### C MP, BNP, YESI #### [facility] [address] [place] [address] Dr. Emilie Stack Erythrocyte distribution width (RBC) [Ratio] 14.6 % Normal 11.0-15.0 [facility] Comment on above: Performed By: #### C MP, BNP, YESI #### [facility] [address] [place] [address] Dr. Emilie Stack Hematocrit (Bld) [Volume fraction] 41.0 % Critically low 42.0-54.0 [facility] Comment on above: Performed By: #### C MP, BNP, YESI #### [facility] [address] [place] [address] Dr. Emilie Stack Hemoglobin (Bld) [Mass/Vol] 13.8 g/dL Critically low 14.0-18.0 [facility] Comment on above: Performed By: #### C MP, BNP, YESI #### [facility] [address] [place] [address] Dr. Emilie Stack IG # 0.12 10e3/ul Critically high 0.00-0.03 [facility] Comment on above: Performed By: #### C MP, BNP, YESI #### [facility] [address] [place] [address] Dr. Emilie Stack IG % 1.0 % Critically high 0.0-0.5 [facility] Comment on above: Performed By: #### C MP, BNP, YESI #### [facility] [address] [place] [address] Dr. Emilie Stack LYMPH # 0.5 103/ul Critically low 1.2-3.8 [facility] Comment on above: Performed By: #### C MP, BNP, YESI #### [facility] [address] [place] [address] Dr. Emilie Stack Lymphocytes/100 WBC (Bld) 3.8 % Critically low 20.5-60.0 [facility] Comment on above: Performed By: #### C MP, BNP, YESI #### [facility] [address] [place] [address] Dr. Emilie Stack MANUAL DIFF REQ NO Normal [facility] Comment on above: Performed By: #### C MP, BNP, YESI #### [facility] [address] [place] [address] Dr. Emilie Stack MCH (RBC) [Entitic mass] 30.3 pg Normal 25.9-34.0 [facility] Comment on above: Performed By: #### C MP, BNP, YESI #### [facility] [address] [place] [address] Dr. Emilie Stack MCHC (RBC) [Mass/Vol] 33.7 g/dL Normal 29.9-35.2 [facility] Comment on above: Performed By: #### C MP, BNP, YESI #### [facility] [address] [place] [address] Dr. Emilie Stack MCV (RBC) [Entitic vol] 89.9 fL Normal 80.0-94.0 [facility] Comment on above: Performed By: #### C MP, BNP, YESI #### [facility] [address] [place] [address] Dr. Emilie Stack MONO # 0.8 103/ul Normal 0.3-0.8 [facility] Comment on above: Performed By: #### C MP, BNP, YESI #### [facility] [address] [place] [address] Dr. Emilie Stack Monocytes/100 WBC (Bld) 6.0 % Normal 1.7-12.0 [facility] Comment on above: Performed By: #### C MP, BNP, YESI #### [facility] [address] [place] [address] Dr. Emilie Stack NEUT # 11.1 103/ul Critically high 1.4-6.5 [facility] Comment on above: Performed By: #### C MP, BNP, YESI #### [facility] [address] [place] [address] Dr. Emilie Stack Neutrophils/100 WBC (Bld) 89.0 % Critically high 43.0-75.0 [facility] Comment on above: Performed By: #### C MP, BNP, YESI #### [facility] [address] [place] [address] Dr. Emilie Stack Platelet mean volume (Bld) [Entitic vol] 8.6 fL Critically low 9.5-13.5 [facility] Comment on above: Performed By: #### C MP, BNP, YESI #### [facility] [address] [address] [address] Emilie Stack PLT 268 103/ul Normal 150-450 [facility] Comment on above: Performed By: #### C MP, BNP, YESI #### [facility] [address] [place] [address] Dr. Emilie Stack RBC 4.56 106/ul Critically low 4.70-6.10 [facility] Comment on above: Performed By: #### C MP, BNP, YESI #### [facility] [address] [place] [address] Dr. Emilie Stack WBC 12.5 103/ul Critically high 4.0-11.0 [facility] Comment on above: Performed By: #### C MP, BNP, YESI #### [facility] [address] [place] [address] Dr. Emilie Stack PROF 14(COMP METB)on 023 Albumin [Mass/Vol] 3.2 g/dL Critically low 3.4-5.0 [facility] Comment on above: Performed By: #### C MP, BNP, YESI #### [facility] [address] [place] [address] Dr. Emilie Stack Albumin/Globulin [Mass ratio] 1.1 {ratio} Normal [facility] Comment on above: Performed By: #### C MP, BNP, YESI #### [facility] [address] [place] [address] Dr. Emilie Stack ALP [Catalytic activity/Vol] 83 U/L Normal 46-116 [facility] Comment on above: Performed By: #### C MP, BNP, YESI #### [facility] [address] [place] [address] Dr. Emilie Stack ALT [Catalytic activity/Vol] 27 U/L Normal 16-63 [facility] Comment on above: Performed By: #### C MP, BNP, YESI #### [facility] [address] [place] [address] Dr. Emilie Stack Anion gap [Moles/Vol] 13.0 mmol/L Normal [facility] Comment on above: Performed By: #### C MP, BNP, YESI #### [facility] [address] [address] [address] Emilie Stack AST [Catalytic activity/Vol] 24 U/L Normal 15-37 [facility] Comment on above: Performed By: #### C MP, BNP, YESI #### [facility] [address] [address] [address] Emilie Stack Bilirubin [Mass/Vol] 0.3 mg/dL Normal 0.2-1.0 [facility] Comment on above: Performed By: #### C MP, BNP, YESI #### [facility] [address] [place] [address] Dr. Emilie Stack Calcium [Mass/Vol] 8.3 mg/dL Critically low 8.5-10.1 [facility] Comment on above: Performed By: #### C MP, BNP, YESI #### [facility] [address] [place] [address] Dr. Emilie Stack Chloride [Moles/Vol] 104 mmol/L Normal 98-107 [facility] Comment on above: Performed By: #### C MP, BNP, YESI #### [facility] [address] [place] [address] Dr. Emilie Stack CO2 [Moles/Vol] 25.8 mmol/L Normal 21.0-32.0 [facility] Comment on above: Performed By: #### C MP, BNP, YESI #### [facility] [address] [place] [address] Dr. Emilie Stack Creatinine [Mass/Vol] 1.17 mg/dL Normal 0.70-1.30 [facility] Comment on above: Performed By: #### C MP, BNP, YESI #### [facility] [address] [place] [address] Dr. Emilie Stack EGFR-AF KYRGYZ >60 Normal >=60 [facility] Comment on above: Performed By: #### C MP, BNP, YESI #### [facility] [address] [address] [address] Emilie Stack EGFR-NON AF KYRGYZ >60 Normal >=60 [facility] Comment on above: Performed By: #### C MP, BNP, YESI #### [facility] [address] [address] [address] Emilie Stack Globulin (S) [Mass/Vol] 3.0 g/dL Normal [facility] Comment on above: Performed By: #### C MP, BNP, YESI #### [facility] [address] [address] [address] Emilie Stack Glucose [Mass/Vol] 179 mg/dL Critically high 74-106 [facility] Comment on above: Performed By: #### C MP, BNP, YESI #### [facility] [address] [place] [address] Dr. Emilie Stack Potassium [Moles/Vol] 3.8 mmol/L Normal 3.5-5.1 [facility] Comment on above: Performed By: #### C MP, BNP, YESI #### [facility] [address] [address] [address] Emilie Stack Protein [Mass/Vol] 6.2 g/dL Critically low 6.4-8.2 [facility] Comment on above: Performed By: #### C MP, BNP, YESI #### [facility] [address] [address] [address] Emilie Stack Sodium [Moles/Vol] 139 mmol/L Normal 136-145 [facility] Comment on above: Performed By: #### C MP, BNP, YESI #### [facility] [address] [address] [address] Emilie Stack Urea nitrogen [Mass/Vol] 23.0 mg/dL Critically high 7.0-18.0 [facility] Comment on above: Performed By: #### C MP, BNP, YESI #### [facility] [address] [address] [address] Emilie Stack Urea nitrogen/Creatinine [Mass ratio] 19.7 mg/mg Normal [facility] Comment on above: Performed By: #### C MP, BNP, YESI #### [facility] [address] [place] [address] Dr. Emilie Stack THEOPHYLLINEon 08-15-2022 THEOPHYLLINE 10.6 ug/mL Normal 10.0-20.0 [facility] Comment on above: Performed By: #### C MP, BNP, YESI #### [facility] [address] [place] [address] Dr. Emilie Stack BNPon 08-14-2022 Natriuretic peptide B (Bld) [Mass/Vol] 67.0 pg/mL Normal <=900.0 [facility] Comment on above: Performed By: #### T ROSSY, CMP, BNP #### [facility] [address] [place] [address] Dr. Emilie Stack CBC AUTO DIFFon 08-14-2022 BASO # 0.0 103/ul Normal 0.0-0.1 [facility] Comment on above: Performed By: #### C BC #### [facility] [address] [place] [address] Dr. Emilie Stack Basophils/100 WBC (Bld) 0.1 % Critically low 0.2-2.0 [facility] Comment on above: Performed By: #### C BC #### [facility] [address] [place] [address] Dr. Emilie Stack EO # 0.0 103/ul Normal 0.0-0.7 [facility] Comment on above: Performed By: #### C BC #### [facility] [address] [place] [address] Dr. Emilie Stack Eosinophils/100 WBC (Bld) 0.0 % Critically low 0.9-7.0 [facility] Comment on above: Performed By: #### C BC #### [facility] [address] [place] [address] Dr. Emilie Stack Erythrocyte distribution width (RBC) [Ratio] 14.5 % Normal 11.0-15.0 [facility] Comment on above: Performed By: #### C BC #### [facility] [address] [address] [address] Emilie Stack Hematocrit (Bld) [Volume fraction] 43.6 % Normal 42.0-54.0 [facility] Comment on above: Performed By: #### C BC #### [facility] [address] [address] [address] Emilie Stack Hemoglobin (Bld) [Mass/Vol] 14.7 g/dL Normal 14.0-18.0 [facility] Comment on above: Performed By: #### C BC #### [facility] [address] [address] [address] Emilie Stack IG # 0.11 10e3/ul Critically high 0.00-0.03 [facility] Comment on above: Performed By: #### C BC #### [facility] [address] [place] [address] Dr. Emilie Stack IG % 0.8 % Critically high 0.0-0.5 [facility] Comment on above: Performed By: #### C BC #### [facility] [address] [place] [address] Dr. Emilie Stack LYMPH # 0.5 103/ul Critically low 1.2-3.8 [facility] Comment on above: Performed By: #### C BC #### [facility] [address] [place] [address] Dr. Emilie Stack Lymphocytes/100 WBC (Bld) 3.4 % Critically low 20.5-60.0 [facility] Comment on above: Performed By: #### C BC #### [facility] [address] [address] [address] Emilie Stack MANUAL DIFF REQ NO Normal [facility] Comment on above: Performed By: #### C BC #### [facility] [address] [place] [address] Dr. Emilie Stack MCH (RBC) [Entitic mass] 29.8 pg Normal 25.9-34.0 [facility] Comment on above: Performed By: #### C BC #### [facility] [address] [address] [address] Emilie Stack MCHC (RBC) [Mass/Vol] 33.7 g/dL Normal 29.9-35.2 [facility] Comment on above: Performed By: #### C BC #### [facility] [address] [address] [address] Emilie Stack MCV (RBC) [Entitic vol] 88.3 fL Normal 80.0-94.0 [facility] Comment on above: Performed By: #### C BC #### [facility] [address] [address] [address] Emilie Stack MONO # 0.6 103/ul Normal 0.3-0.8 [facility] Comment on above: Performed By: #### C BC #### [facility] [address] [address] [address] Emilie Stack Monocytes/100 WBC (Bld) 4.3 % Normal 1.7-12.0 [facility] Comment on above: Performed By: #### C BC #### [facility] [address] [address] [address] Emilie Stack NEUT # 12.5 103/ul Critically high 1.4-6.5 [facility] Comment on above: Performed By: #### C BC #### [facility] [address] [address] [address] Emilie Stack Neutrophils/100 WBC (Bld) 91.4 % Critically high 43.0-75.0 [facility] Comment on above: Performed By: #### C BC #### [facility] [id number] Emilie Stack Platelet mean volume (Bld) [Entitic vol] 8.5 fL Critically low 9.5-13.5 [facility] Comment on above: Performed By: #### C BC #### [facility] [address] [address] [address] Emilie Stack PLT 323 103/ul Normal 150-450 [facility] Comment on above: Performed By: #### C BC #### [facility] [address] [address] [address] Emilie Stack RBC 4.94 106/ul Normal 4.70-6.10 [facility] Comment on above: Performed By: #### C BC #### [facility] [address] [address] [address] Emilie Stack WBC 13.6 103/ul Critically high 4.0-11.0 [facility] Comment on above: Performed By: #### C BC #### [facility] [address] [place] [address] Dr. Emilie Stack PROF 14(COMP METB)on 023 Albumin [Mass/Vol] 3.6 g/dL Normal 3.4-5.0 [facility] Comment on above: Performed By: #### T ROSSY, CMP, BNP #### [facility] [address] [place] [address] Dr. Emilie Stack Albumin/Globulin [Mass ratio] 1.1 {ratio} Normal [facility] Comment on above: Performed By: #### T ROSSY, CMP, BNP #### [facility] [address] [place] [address] Dr. Emilie Stack ALP [Catalytic activity/Vol] 98 U/L Normal 46-116 [facility] Comment on above: Performed By: #### T ROSYS, CMP, BNP #### [facility] [address] [place] [address] Dr. Emilie Stack ALT [Catalytic activity/Vol] 27 U/L Normal 16-63 [facility] Comment on above: Performed By: #### T ROSSY, CMP, BNP #### [facility] [address] [place] [address] Dr. Emilie Stack Anion gap [Moles/Vol] 15.8 mmol/L Normal [facility] Comment on above: Performed By: #### T ROSSY, CMP, BNP #### [facility] [address] [place] [address] Dr. Emilie Stack AST [Catalytic activity/Vol] 27 U/L Normal 15-37 [facility] Comment on above: Performed By: #### T ROSSY, CMP, BNP #### [facility] [address] [address] [address] Emilie Stack Bilirubin [Mass/Vol] 0.3 mg/dL Normal 0.2-1.0 [facility] Comment on above: Performed By: #### T RSOSY, CMP, BNP #### [facility] [address] [address] [address] Emilie Stack Calcium [Mass/Vol] 8.7 mg/dL Normal 8.5-10.1 [facility] Comment on above: Performed By: #### T ROSSY, CMP, BNP #### [facility] [address] [address] [address] Emilie Stack Chloride [Moles/Vol] 102 mmol/L Normal 98-107 [facility] Comment on above: Performed By: #### T ROSSY CMP, BNP #### [facility] [address] [address] [address] Emilie Stack CO2 [Moles/Vol] 23.0 mmol/L Normal 21.0-32.0 [facility] Comment on above: Performed By: #### T ROSSY CMP, BNP #### [facility] [address] [address] [address] Emilie Stack Creatinine [Mass/Vol] 1.27 mg/dL Normal 0.70-1.30 [facility] Comment on above: Performed By: #### T ROSSY CMP, BNP #### [facility] [address] [address] [address] Emilie Stack EGFR-AF KYRGYZ >60 Normal >=60 [facility] Comment on above: Performed By: #### T ROSSY, CMP, BNP #### [facility] [address] [address] [address] Emilie Stack EGFR-NON AF KYRGYZ 56 mL/min/1.73m2 Critically low >=60 [facility] Comment on above: Performed By: #### T ROSSY CMP, BNP #### [facility] [address] [address] [address] Emilie Stack Globulin (S) [Mass/Vol] 3.3 g/dL Normal [facility] Comment on above: Performed By: #### Patience BLAIR CMP, BNP #### [facility] [address] [place] [address] Dr. Emilie Stack Glucose [Mass/Vol] 146 mg/dL Critically high 74-106 [facility] Comment on above: Performed By: #### Patience BLAIR CMP, BNP #### [facility] [address] [place] [address] Dr. Emilie Stack Potassium [Moles/Vol] 3.8 mmol/L Normal 3.5-5.1 [facility] Comment on above: Performed By: #### Patience BLAIR CMP, BNP #### [facility] [address] [place] [address] Dr. Emilie Stack Protein [Mass/Vol] 6.9 g/dL Normal 6.4-8.2 [facility] Comment on above: Performed By: #### Patience BLAIR CMP, BNP #### [facility] [address] [place] [address] Dr. Emilie Stack Sodium [Moles/Vol] 137 mmol/L Normal 136-145 [facility] Comment on above: Performed By: #### Patience BLAIR CMP, BNP #### [facility] [address] [place] [address] Dr. Emilie Stack Urea nitrogen [Mass/Vol] 22.0 mg/dL Critically high 7.0-18.0 [facility] Comment on above: Performed By: #### Patience BLAIR CMP, BNP #### [facility] [address] [place] [address] Dr. Emilie Stack Urea nitrogen/Creatinine [Mass ratio] 17.3 mg/mg Normal [facility] Comment on above: Performed By: #### Patience BLAIR CMP, BNP #### [facility] [address] [place] [address] Dr. Emilie Stack THEOPHYLLINEon 08-14-2022 THEOPHYLLINE 10.3 ug/mL Normal 10.0-20.0 [facility] Comment on above: Performed By: #### T ROSSY, CMP, BNP #### [facility] [address] [place] [address] Dr. Emilie Stack BNPon 08-13-2022 Natriuretic peptide B (Bld) [Mass/Vol] 82.0 pg/mL Normal <=900.0 [facility] Comment on above: Performed By: #### C MP, BNP, YESI #### [facility] [address] [place] [address] Dr. Emilie Stack CBC AUTO DIFFon 08-13-2022 BASO # 0.0 103/ul Normal 0.0-0.1 [facility] Comment on above: Performed By: #### C MP, BNP, YESI #### [facility] [address] [place] [address] Dr. Emilie Stack Basophils/100 WBC (Bld) 0.1 % Critically low 0.2-2.0 [facility] Comment on above: Performed By: #### C MP, BNP, YESI #### [facility] [address] [place] [address] Dr. Emilie Stack EO # 0.0 103/ul Normal 0.0-0.7 [facility] Comment on above: Performed By: #### C MP, BNP, YESI #### [facility] [address] [place] [address] Dr. Emilie Stack Eosinophils/100 WBC (Bld) 0.0 % Critically low 0.9-7.0 [facility] Comment on above: Performed By: #### C MP, BNP, YESI #### [facility] [address] [place] [address] Dr. Emilie Stack Erythrocyte distribution width (RBC) [Ratio] 14.7 % Normal 11.0-15.0 [facility] Comment on above: Performed By: #### C MP, BNP, YESI #### [facility] [address] [place] [address] Dr. Emilie Stack Hematocrit (Bld) [Volume fraction] 40.7 % Critically low 42.0-54.0 [facility] Comment on above: Performed By: #### C MP, BNP, YESI #### [facility] [address] [address] [address] Emilie Stack Hemoglobin (Bld) [Mass/Vol] 13.3 g/dL Critically low 14.0-18.0 [facility] Comment on above: Performed By: #### C MP, BNP, YESI #### [facility] [address] [place] [address] Dr. Emilie Stack IG # 0.14 10e3/ul Critically high 0.00-0.03 [facility] Comment on above: Performed By: #### C MP, BNP, YESI #### [facility] [address] [place] [address] Dr. Emilie Stack IG % 0.8 % Critically high 0.0-0.5 [facility] Comment on above: Performed By: #### C MP, BNP, YESI #### [facility] [address] [place] [address] Dr. Emilie Stack LYMPH # 0.8 103/ul Critically low 1.2-3.8 [facility] Comment on above: Performed By: #### C MP, BNP, YESI #### [facility] [address] [place] [address] Dr. Emilie Stack Lymphocytes/100 WBC (Bld) 4.5 % Critically low 20.5-60.0 [facility] Comment on above: Performed By: #### C MP, BNP, YESI #### [facility] [address] [place] [address] Dr. Emilie Stack MANUAL DIFF REQ NO Normal [facility] Comment on above: Performed By: #### C MP, BNP, YESI #### [facility] [address] [place] [address] Dr. mEilie Stack MCH (RBC) [Entitic mass] 29.7 pg Normal 25.9-34.0 [facility] Comment on above: Performed By: #### C MP, BNP, YESI #### [facility] [address] [place] [address] Dr. Emilie Stack MCHC (RBC) [Mass/Vol] 32.7 g/dL Normal 29.9-35.2 [facility] Comment on above: Performed By: #### C MP, BNP, YESI #### [facility] [address] [place] [address] Dr. Emilie Stack MCV (RBC) [Entitic vol] 90.8 fL Normal 80.0-94.0 [facility] Comment on above: Performed By: #### C MP, BNP, YESI #### [facility] [address] [place] [address] Dr. Emilie Stack MONO # 0.6 103/ul Normal 0.3-0.8 [facility] Comment on above: Performed By: #### C MP, BNP, YESI #### [facility] [address] [place] [address] Dr. Emilie Stack Monocytes/100 WBC (Bld) 3.3 % Normal 1.7-12.0 [facility] Comment on above: Performed By: #### C MP, BNP, YESI #### [facility] [address] [place] [address] Dr. Emilie Stack NEUT # 15.9 103/ul Critically high 1.4-6.5 [facility] Comment on above: Performed By: #### C MP, BNP, YESI #### [facility] [address] [place] [address] Dr. Emilie Stack Neutrophils/100 WBC (Bld) 91.3 % Critically high 43.0-75.0 [facility] Comment on above: Performed By: #### C MP, BNP, YESI #### [facility] [address] [place] [address] Dr. Emilie Stack Platelet mean volume (Bld) [Entitic vol] 8.9 fL Critically low 9.5-13.5 [facility] Comment on above: Performed By: #### C MP, BNP, YESI #### [facility] [address] [place] [address] Dr. Emilie Stack PLT 303 103/ul Normal 150-450 [facility] Comment on above: Performed By: #### C MP, BNP, YESI #### [facility] [address] [address] [address] Emilie Stack RBC 4.48 106/ul Critically low 4.70-6.10 [facility] Comment on above: Performed By: #### C MP, BNP, YESI #### [facility] [address] [address] [address] Emilie Stack WBC 17.4 103/ul Critically high 4.0-11.0 [facility] Comment on above: Performed By: #### C MP, BNP, YESI #### [facility] [address] [address] [address] Emilie Stack PROF 14(COMP METB)on 023 Albumin [Mass/Vol] 3.2 g/dL Critically low 3.4-5.0 [facility] Comment on above: Performed By: #### C MP, BNP, YESI #### [facility] [address] [address] [address] Emilie Stack Albumin/Globulin [Mass ratio] 1.0 {ratio} Normal [facility] Comment on above: Performed By: #### C MP, BNP, YESI #### [facility] [address] [address] [address] Emilie Stack ALP [Catalytic activity/Vol] 100 U/L Normal 46-116 [facility] Comment on above: Performed By: #### C MP, BNP, YESI #### [facility] [address] [address] [address] Emilie Stack ALT [Catalytic activity/Vol] 22 U/L Normal 16-63 [facility] Comment on above: Performed By: #### C MP, BNP, YESI #### [facility] [address] [address] [address] Emilie Stack Anion gap [Moles/Vol] 13.4 mmol/L Normal [facility] Comment on above: Performed By: #### C MP, BNP, YESI #### [facility] [address] [address] [address] Emilie Stack AST [Catalytic activity/Vol] 13 U/L Critically low 15-37 [facility] Comment on above: Performed By: #### C MP, BNP, YESI #### [facility] [address] [address] [address] Emilie Stack Bilirubin [Mass/Vol] 0.3 mg/dL Normal 0.2-1.0 [facility] Comment on above: Performed By: #### C MP, BNP, YESI #### [facility] [address] [place] [address] Dr. Emilie Stack Calcium [Mass/Vol] 8.6 mg/dL Normal 8.5-10.1 [facility] Comment on above: Performed By: #### C MP, BNP, YESI #### [facility] [address] [place] [address] Dr. Emilie Stack Chloride [Moles/Vol] 102 mmol/L Normal 98-107 [facility] Comment on above: Performed By: #### C MP, BNP, YESI #### [facility] [address] [place] [address] Dr. Emilie Stack CO2 [Moles/Vol] 26.7 mmol/L Normal 21.0-32.0 [facility] Comment on above: Performed By: #### C MP, BNP, YESI #### [facility] [address] [place] [address] Dr. Emilie Stack Creatinine [Mass/Vol] 1.23 mg/dL Normal 0.70-1.30 [facility] Comment on above: Performed By: #### C MP, BNP, YESI #### [facility] [address] [place] [address] Dr. Emilie Stack EGFR-AF KYRGYZ >60 Normal >=60 [facility] Comment on above: Performed By: #### C MP, BNP, YESI #### [facility] [address] [place] [address] Dr. Emilie Stack EGFR-NON AF KYRGYZ 58 mL/min/1.73m2 Critically low >=60 [facility] Comment on above: Performed By: #### C MP, BNP, YESI #### [facility] [address] [place], [place] [id number] Dr. Emilie Stack Globulin (S) [Mass/Vol] 3.1 g/dL Normal [facility] Comment on above: Performed By: #### C MP, BNP, YESI #### [facility] [address] [place] [address] Dr. Emilie Stack Glucose [Mass/Vol] 138 mg/dL Critically high 74-106 [facility] Comment on above: Performed By: #### C MP, BNP, YESI #### [facility] [address] [place] [address] Dr. Emilie Stack Potassium [Moles/Vol] 4.1 mmol/L Normal 3.5-5.1 [facility] Comment on above: Performed By: #### C MP, BNP, YESI #### [facility] [address] [place] [address] Dr. Emilie Stack Protein [Mass/Vol] 6.3 g/dL Critically low 6.4-8.2 [facility] Comment on above: Performed By: #### C MP, BNP, YESI #### [facility] [address] [place] [address] Dr. Emilie Stack Sodium [Moles/Vol] 138 mmol/L Normal 136-145 [facility] Comment on above: Performed By: #### C MP, BNP, YESI #### [facility] [address] [place] [address] Dr. Emilie Stack Urea nitrogen [Mass/Vol] 21.0 mg/dL Critically high 7.0-18.0 [facility] Comment on above: Performed By: #### C MP, BNP, YESI #### [facility] [address] [place] [address] Dr. Emilie Stack Urea nitrogen/Creatinine [Mass ratio] 17.1 mg/mg Normal [facility] Comment on above: Performed By: #### C MP, BNP, YESI #### [facility] [address] [place] [address] Dr. Emilie Stack THEOPHYLLINEon 08-13-2022 THEOPHYLLINE 11.5 ug/mL Normal 10.0-20.0 [facility] Comment on above: Performed By: #### C MP, BNP, YESI #### [facility] [address] [place] [address] Dr. Emilie Stack BNPon 08-12-2022 Natriuretic peptide B (Bld) [Mass/Vol] 49.0 pg/mL Normal <=900.0 [facility] Comment on above: Performed By: #### C MP, BNP, YESI #### [facility] [address] [place] [address] Dr. Emilie Stack CBC W MANUAL DIFFon 08-12-19 23 ATYPICAL LYMPH # 0.08 103/ul Normal [facility] Comment on above: Performed By: #### T ROSSY CMP, BNP #### [facility] [address] [place] [address] Dr. Emilie Stack ATYPICAL LYMPH % 1 % Normal [facility] Comment on above: Performed By: #### Patience BLAIR CMP, BNP #### [facility] [address] [place] [address] Dr. Emilie Stack BAND # 0.0 103/ul Normal 0.0-0.3 [facility] Comment on above: Performed By: #### Patience BLAIR CMP, BNP #### [facility] [address] [place] [address] Dr. Emilie Stack BAND % 0 % Normal 0-5 [facility] Comment on above: Performed By: #### T ROSSY CMP, BNP #### [facility] [address] [place] [address] Dr. Emilie Stack BASOM # 0.00 103/ul Normal 0.00-0.10 [facility] Comment on above: Performed By: #### T ROSSY CMP, BNP #### [facility] [address] [place] [address] Dr. Emilie Stack BASOM % 0.0 % Critically low 0.2-2.0 [facility] Comment on above: Performed By: #### T ROSSY, CMP, BNP #### [facility] [address] [place] [address] Dr. Emilie Stack BLAST # Normal [facility] Comment on above: Performed By: #### T ROSSY, CMP, BNP #### [facility] [address] [address] [address] Emilie Stack BLAST % Normal [facility] Comment on above: Performed By: #### T ROSSY, CMP, BNP #### [facility] [address] [address] [address] Emilie Stack CORRECTED WBC Normal 4.0-11.0 [facility] Comment on above: Performed By: #### T ROSSY, CMP, BNP #### [facility] [address] [address] [address] Emilie Stack EOS # 0.00 103/ul Normal 0.00-0.70 [facility] Comment on above: Performed By: #### T ROSSY, CMP, BNP #### [facility] [address] [address] [address] Emilie Stack EOS% 0.0 % Critically low 0.9-7.0 [facility] Comment on above: Performed By: #### T ROSSY, CMP, BNP #### [facility] [address] [address] [address] Emilie Stack HCT 41.1 % Critically low 42.0-54.0 [facility] Comment on above: Performed By: #### T ROSSY, CMP, BNP #### [facility] [address] [address] [address] Emilie Stack HGB 13.5 g/dl Critically low 14.0-18.0 [facility] Comment on above: Performed By: #### T ROSSY, CMP, BNP #### [facility] [address] [address] [address] Emilie Stack LYMPHM # 0.08 103/ul Critically low 1.20-3.80 [facility] Comment on above: Performed By: #### T ROSSY, CMP, BNP #### [facility] [address] [address] [address] Emilie Stack LYMPHM% 1.0 % Critically low 20.5-60.0 [facility] Comment on above: Performed By: #### T ROSSY, CMP, BNP #### [facility] [address] [address] [address] Emilie Stack MCH 30.2 pg Normal 25.9-34.0 [facility] Comment on above: Performed By: #### T ROSSY, CMP, BNP #### [facility] [address] [address] [address] Emilie Stack MCHC 32.8 g/dl Normal 29.9-35.2 [facility] Comment on above: Performed By: #### T ROSSY, CMP, BNP #### [facility] [address] [address] [address] Emilie Stack MCV 91.9 fL Normal 80.0-94.0 [facility] Comment on above: Performed By: #### T ROSSY, CMP, BNP #### [facility] [address] [address] [address] Emilie Stack METAMYELOCYTE # Normal [facility] Comment on above: Performed By: #### T ROSSY, CMP, BNP #### [facility] [address] [address] [address] Emilie Stack METAMYELOCYTE % Normal [facility] Comment on above: Performed By: #### T ROSSY, CMP, BNP #### [facility] [address] [address] [address] Emilie Stack MONOM# 0.00 103/ul Critically low 0.30-0.80 [facility] Comment on above: Performed By: #### T ROSSY, CMP, BNP #### [facility] [address] [address] [address] Emilie Stack MONOM% 0.0 % Critically low 1.7-12.0 [facility] Comment on above: Performed By: #### T ROSSY, CMP, BNP #### [facility] [address] [address] [address] Emilie Stack MPV 8.9 fL Critically low 9.5-13.5 [facility] Comment on above: Performed By: #### T ROSSY, CMP, BNP #### [facility] [address] [address] [address] Emilie Stack MYELOCYTE # Normal [facility] Comment on above: Performed By: #### T ROSSY, CMP, BNP #### [facility] [address] [address] [address] Emilie Stack MYELOCYTE % Normal [facility] Comment on above: Performed By: #### T ROSSY, CMP, BNP #### [facility] [address] [address] [address] Emilie Stack NRBC Normal [facility] Comment on above: Performed By: #### T ROSSY, CMP, BNP #### [facility] [address] [address] [address] Emilie Stack PLT 263 103/ul Normal 150-450 [facility] Comment on above: Performed By: #### T ROSSY, CMP, BNP #### [facility] [address] [address] [address] Emilie Stack RBC 4.47 106/ul Critically low 4.70-6.10 [facility] Comment on above: Performed By: #### T ROSSY, CMP, BNP #### [facility] [address] [address] [address] Emilie Stack RDW 14.4 % Normal 11.0-15.0 [facility] Comment on above: Performed By: #### T ROSYS, CMP, BNP #### [facility] [address] [address] [address] Emilie Stack SEG # 7.64 103/ul Critically high 1.40-6.50 [facility] Comment on above: Performed By: #### T ROSSY, CMP, BNP #### [facility] [address] [address] [address] Emilie Stack SEG % 98.0 % Critically high 43.0-75.0 [facility] Comment on above: Performed By: #### T ROSSY, CMP, BNP #### [facility] [address] [address] [address] Emilie Stack WBC 7.8 103/ul Normal 4.0-11.0 [facility] Comment on above: Performed By: #### T ROSSY, CMP, BNP #### [facility] [address] [place] [address] Dr. Emilie Stack CULTURE SPUTUMon 08-12-2022 CULTURE SPUTUM Culture Observations : NORMAL RESPIRATORY TANO. Normal [facility] Comment on above: Performed By: #### T ROSSY, CMP, BNP #### [facility] [address] [place] [address] Dr. Emilie Stcak PROF 14(COMP METB)on 023 Albumin [Mass/Vol] 3.1 g/dL Critically low 3.4-5.0 [facility] Comment on above: Performed By: #### C MP, BNP, YESI #### [facility] [address] [place] [address] Dr. Emilie Stack Albumin/Globulin [Mass ratio] 1.0 {ratio} Normal [facility] Comment on above: Performed By: #### C MP, BNP, YESI #### [facility] [address] [place] [address] Dr. Emilie Stack ALP [Catalytic activity/Vol] 106 U/L Normal 46-116 [facility] Comment on above: Performed By: #### C MP, BNP, YESI #### [facility] [address] [place] [address] Dr. Emilie Stack ALT [Catalytic activity/Vol] 23 U/L Normal 16-63 [facility] Comment on above: Performed By: #### C MP, BNP, YESI #### [facility] [address] [place] [address] Dr. Emilie Stack Anion gap [Moles/Vol] 11.5 mmol/L Normal [facility] Comment on above: Performed By: #### C MP, BNP, YESI #### [facility] [address] [place] [address] Dr. Emilie Stack AST [Catalytic activity/Vol] 11 U/L Critically low 15-37 [facility] Comment on above: Performed By: #### C MP, BNP, YESI #### [facility] [address] [place] [address] Dr. Emilie Stack Bilirubin [Mass/Vol] 0.2 mg/dL Normal 0.2-1.0 [facility] Comment on above: Performed By: #### C MP, BNP, YESI #### [facility] [address] [place] [address] Dr. Emilie Stack Calcium [Mass/Vol] 8.6 mg/dL Normal 8.5-10.1 [facility] Comment on above: Performed By: #### C MP, BNP, YESI #### [facility] [address] [place] [address] Dr. Emilie Stack Chloride [Moles/Vol] 102 mmol/L Normal 98-107 [facility] Comment on above: Performed By: #### C MP, BNP, YESI #### [facility] [address] [place] [address] Dr. Emilie Stack CO2 [Moles/Vol] 27.3 mmol/L Normal 21.0-32.0 [facility] Comment on above: Performed By: #### C MP, BNP, YESI #### [facility] [address] [place] [address] Dr. Emilie Stack Creatinine [Mass/Vol] 1.04 mg/dL Normal 0.70-1.30 [facility] Comment on above: Performed By: #### C MP, BNP, YESI #### [facility] [address] [place] [address] Dr. Emilie Stack EGFR-AF KYRGYZ >60 Normal >=60 [facility] Comment on above: Performed By: #### C MP, BNP, YESI #### [facility] [address] [place] [address] Dr. Emilie Stack EGFR-NON AF KYRGYZ >60 Normal >=60 [facility] Comment on above: Performed By: #### C MP, BNP, YESI #### [facility] [address] [place] [address] Dr. Emilie Stack Globulin (S) [Mass/Vol] 3.0 g/dL Normal [facility] Comment on above: Performed By: #### C MP, BNP, YESI #### [facility] [address] [place] [address] Dr. Emilie Stack Glucose [Mass/Vol] 207 mg/dL Critically high 74-106 T [facility] Comment on above: Performed By: #### C MP, BNP, YESI #### [facility] [address] [place] [address] Dr. Emilie Stack Potassium [Moles/Vol] 3.8 mmol/L Normal 3.5-5.1 [facility] Comment on above: Performed By: #### C MP, BNP, YESI #### [facility] [address] [place] [address] Dr. Emilie Stack Protein [Mass/Vol] 6.1 g/dL Critically low 6.4-8.2 [facility] Comment on above: Performed By: #### C MP, BNP, YESI #### [facility] [address] [place] [address] Dr. Emilie Stack Sodium [Moles/Vol] 137 mmol/L Normal 136-145 [facility] Comment on above: Performed By: #### C MP, BNP, YESI #### [facility] [address] [place] [address] Dr. Emilie Stack Urea nitrogen [Mass/Vol] 12.0 mg/dL Normal 7.0-18.0 [facility] Comment on above: Performed By: #### C MP, BNP, YESI #### [facility] [address] [place] [address] Dr. Emilie Stack Urea nitrogen/Creatinine [Mass ratio] 11.5 mg/mg Normal [facility] Comment on above: Performed By: #### C MP, BNP, YESI #### [facility] [address] [place] [address] Dr. Emilie Stack SPUTUM GRAM STAINon 08-12-19 COMMENTS Normal [facility] Comment on above: Performed By: #### C MP, BNP, YESI #### [facility] [address] [address] [address] Emilie Stack DIPHTHEROIDS Normal [facility] Comment on above: Performed By: #### C MP, BNP, YESI #### [facility] [address] [address] [address] Emilie Stack EPITHELIALS <25 Normal [facility] Comment on above: Performed By: #### C MP, BNP, YESI #### [facility] [address] [address] [address] Emilie Stack FUNGAL ELEMENTS Normal [facility] Comment on above: Performed By: #### C MP, BNP, YESI #### [facility] [address] [address] [address] Emilie Stack GRAM NEG BACILLI Normal [facility] Comment on above: Performed By: #### C MP, BNP, YESI #### [facility] [address] [address] [address] Emilie JARAMILLO NEG DIPPLOCOCCI Normal [facility] Comment on above: Performed By: #### C MP, BNP, YESI #### [facility] [address] [address] [address] Emilie JARAMILLO POS BACILLI RARE Normal [facility] Comment on above: Performed By: #### C MP, BNP, YESI #### [facility] [address] [address] [address] Emilie JARAMILLO POSITIVE COCCI MODERATE Normal [facility] Comment on above: Performed By: #### C MP, BNP, YESI #### [facility] [address] [address] [address] Emilie Stack WBC (Bld) [#/Vol] 10*3/uL Normal [facility] Comment on above: Performed By: #### C MP, BNP, YESI #### [facility] [address] [address] [address] Emilie Stack T3, TOTAL (TRIIODOTHYRONINE) on 08-12-2022 T3, TOTAL 92 ng/dL Normal 71-180 [facility] Comment on above: Performed By: #### T ROSSY, CMP, BNP #### [facility] [address] [place] [address] Dr. Emilie Stack THEOPHYLLINEon 08-12-2022 THEOPHYLLINE 10.3 ug/mL Normal 10.0-20.0 [facility] Comment on above: Performed By: #### C MP, BNP, YESI #### [facility] [address] [place] [address] Dr. Emilie Stack BNPon 08-11-2022 Natriuretic peptide B (Bld) [Mass/Vol] 79.0 pg/mL Normal <=900.0 [facility] Comment on above: Performed By: #### C MP, BNP, YESI #### [facility] [address] [place] [address] Dr. Emilie Stack CARDIAC GATITO 3-6on 3 CK [Catalytic activity/Vol] 66 U/L Normal 39-308 [facility] Comment on above: Performed By: #### T ROSSY, CMP, BNP #### [facility] [address] [place] [address] Dr. Emilie Stack CK.MB [Mass/Vol] 1.24 ng/mL Normal <=3.60 [facility] Comment on above: Performed By: #### T ROSSY, CMP, BNP #### [facility] [address] [place] [address] Dr. Emilie Stack HSTROP 5.7 pg/mL Normal 4.0-76.1 [facility] Comment on above: Result Comment: CUT- OFF POINTS HAVE BEEN ESTABLISHED BASED ON THE FOURTH UNIVERSAL DEFINITIONS OF MYOCARDIAL INFARCTION. THE UPPER REFERENCE LIMIT (URL) OF TROPONIN, DEFINED THE 99TH PERCENTILE OF cTnI DISTRIBUTION IN A REFERENCE POPULATION, HAS BEEN CONFIRMED THE DECISION THRESHOLD FOR MD DIAGNOSIS. Performed By: #### T ROSSY, CMP, BNP #### [facility] [address] [place] [address] Dr. Emilie Stack CBC AUTO DIFFon 08-11-2022 BASO # 0.0 103/ul Normal 0.0-0.1 [facility] Comment on above: Performed By: #### C MP, BNP, YESI #### [facility] [address] [place] [address] Dr. Emilie Stack Basophils/100 WBC (Bld) 0.6 % Normal 0.2-2.0 [facility] Comment on above: Performed By: #### C MP, BNP, YESI #### [facility] [address] [place] [address] Dr. Emilie Stack EO # 0.1 103/ul Normal 0.0-0.7 [facility] Comment on above: Performed By: #### C MP, BNP, YESI #### [facility] [address] [place] [address] Dr. Emilie Stack Eosinophils/100 WBC (Bld) 1.4 % Normal 0.9-7.0 [facility] Comment on above: Performed By: #### C MP, BNP, YESI #### [facility] [address] [place] [address] Dr. Emilie Stack Erythrocyte distribution width (RBC) [Ratio] 14.8 % Normal 11.0-15.0 [facility] Comment on above: Performed By: #### C MP, BNP, YESI #### [facility] [address] [place] [address] Dr. Emilie Stack Hematocrit (Bld) [Volume fraction] 43.5 % Normal 42.0-54.0 [facility] Comment on above: Performed By: #### C MP, BNP, YESI #### [facility] [address] [place] [address] Dr. Emilie Stack Hemoglobin (Bld) [Mass/Vol] 14.2 g/dL Normal 14.0-18.0 [facility] Comment on above: Performed By: #### C MP, BNP, YESI #### [facility] [address] [place] [address] Dr. Emilie Stack IG # 0.06 10e3/ul Critically high 0.00-0.03 [facility] Comment on above: Performed By: #### C MP, BNP, YESI #### [facility] [address] [place] [address] Dr. Emilie Stack IG % 0.8 % Critically high 0.0-0.5 [facility] Comment on above: Performed By: #### C MP, BNP, YESI #### [facility] [address] [place] [address] Dr. Emilie Stack LYMPH # 1.2 103/ul Normal 1.2-3.8 [facility] Comment on above: Performed By: #### C MP, BNP, YESI #### [facility] [address] [place] [address] Dr. Emilie Stack Lymphocytes/100 WBC (Bld) 16.8 % Critically low 20.5-60.0 [facility] Comment on above: Performed By: #### C MP, BNP, YESI #### [facility] [address] [place] [address] Dr. Emilie Stack MANUAL DIFF REQ NO Normal [facility] Comment on above: Performed By: #### C MP, BNP, YESI #### [facility] [address] [place] [address] Dr. Emilie Stack MCH (RBC) [Entitic mass] 30.1 pg Normal 25.9-34.0 [facility] Comment on above: Performed By: #### C MP, BNP, YESI #### [facility] [address] [place] [address] Dr. Emilie Stack MCHC (RBC) [Mass/Vol] 32.6 g/dL Normal 29.9-35.2 [facility] Comment on above: Performed By: #### C MP, BNP, YESI #### [facility] [address] [place] [address] Dr. Emilie Stack MCV (RBC) [Entitic vol] 92.2 fL Normal 80.0-94.0 [facility] Comment on above: Performed By: #### C MP, BNP, YESI #### [facility] [address] [place] [address] Dr. Emilie Stack MONO # 1.0 103/ul Critically high 0.3-0.8 [facility] Comment on above: Performed By: #### C MP, BNP, YESI #### [facility] [address] [place] [address] Dr. Emilie Stack Monocytes/100 WBC (Bld) 14.2 % Critically high 1.7-12.0 [facility] Comment on above: Performed By: #### C MP, BNP, YESI #### [facility] [address] [place] [address] Dr. Emilie Stack NEUT # 4.8 103/ul Normal 1.4-6.5 [facility] Comment on above: Performed By: #### C MP, BNP, YESI #### [facility] [address] [place] [address] Dr. Emilie Stack Neutrophils/100 WBC (Bld) 66.2 % Normal 43.0-75.0 [facility] Comment on above: Performed By: #### C MP, BNP, YESI #### [facility] [address] [place] [address] Dr. Emilie Stack Platelet mean volume (Bld) [Entitic vol] 8.4 fL Critically low 9.5-13.5 [facility] Comment on above: Performed By: #### C MP, BNP, YESI #### [facility] [address] [place] [address] Dr. Emilie Stack PLT 277 103/ul Normal 150-450 [facility] Comment on above: Performed By: #### C MP, BNP, YESI #### [facility] [address] [place] [address] Dr. Emilie Stack RBC 4.72 106/ul Normal 4.70-6.10 [facility] Comment on above: Performed By: #### C MP, BNP, YESI #### [facility] [address] [place] [address] Dr. Emilie Stack WBC 7.3 103/ul Normal 4.0-11.0 [facility] Comment on above: Performed By: #### C MP, BNP, YESI #### [facility] [address] [place] [address] Dr. Emilie Stack CULTURE URINEon 08-11-2022 CULTURE URINE Culture Observations : NO GROWTH. Normal [facility] Comment on above: Performed By: #### T ROSSY, CMP, BNP #### [facility] [address] [address] [address] Emilie Stack PROF 14(COMP METB)on 023 Albumin [Mass/Vol] 3.2 g/dL Critically low 3.4-5.0 [facility] Comment on above: Performed By: #### C MP, BNP, YESI #### [facility] [address] [address] [address] Emilie Stack Albumin/Globulin [Mass ratio] 1.0 {ratio} Normal [facility] Comment on above: Performed By: #### C MP, BNP, YESI #### [facility] [address] [place] [address] Dr. Emilie Stack ALP [Catalytic activity/Vol] 117 U/L Critically high 46-116 [facility] Comment on above: Performed By: #### C MP, BNP, YESI #### [facility] [address] [address] [address] Emilie Stack ALT [Catalytic activity/Vol] 24 U/L Normal 16-63 [facility] Comment on above: Performed By: #### C MP, BNP, YESI #### [facility] [address] [address] [address] Emilie Stack Anion gap [Moles/Vol] 8.8 mmol/L Normal [facility] Comment on above: Performed By: #### C MP, BNP, YESI #### [facility] [address] [address] [address] Emilie Stack AST [Catalytic activity/Vol] 13 U/L Critically low 15-37 [facility] Comment on above: Performed By: #### C MP, BNP, YESI #### [facility] [address] [place] [address] Dr. Emilie Stack Bilirubin [Mass/Vol] 0.3 mg/dL Normal 0.2-1.0 [facility] Comment on above: Performed By: #### C MP, BNP, YESI #### [facility] [address] [place] [address] Dr. Emilie Stack Calcium [Mass/Vol] 8.3 mg/dL Critically low 8.5-10.1 [facility] Comment on above: Performed By: #### C MP, BNP, YESI #### [facility] [address] [place] [address] Dr. Emilie Stack Chloride [Moles/Vol] 104 mmol/L Normal 98-107 [facility] Comment on above: Performed By: #### C MP, BNP, YESI #### [facility] [address] [place] [address] Dr. Emilie Stack CO2 [Moles/Vol] 30.7 mmol/L Normal 21.0-32.0 [facility] Comment on above: Performed By: #### C MP, BNP, YESI #### [facility] [address] [place] [address] Dr. Emilie Stack Creatinine [Mass/Vol] 1.08 mg/dL Normal 0.70-1.30 [facility] Comment on above: Performed By: #### C MP, BNP, YESI #### [facility] [address] [place] [address] Dr. Emilie Stack EGFR-AF KYRGYZ >60 Normal >=60 [facility] Comment on above: Performed By: #### C MP, BNP, YESI #### [facility] [address] [place] [address] Dr. Emilie Stack EGFR-NON AF KYRGYZ >60 Normal >=60 [facility] Comment on above: Performed By: #### C MP, BNP, YESI #### [facility] [address] [place] [address] Dr. Emilie Stack Globulin (S) [Mass/Vol] 3.1 g/dL Normal [facility] Comment on above: Performed By: #### C MP, BNP, YESI #### [facility] [address] [place] [address] Dr. Emilie Stack Glucose [Mass/Vol] 76 mg/dL Normal 74-106 [facility] Comment on above: Performed By: #### C MP, BNP, YESI #### [facility] [address] [place] [address] Dr. Emilie Stack Potassium [Moles/Vol] 3.5 mmol/L Normal 3.5-5.1 [facility] Comment on above: Performed By: #### C MP, BNP, YESI #### [facility] [address] [place] [address] Dr. Emilie Stack Protein [Mass/Vol] 6.3 g/dL Critically low 6.4-8.2 [facility] Comment on above: Performed By: #### C MP, BNP, YESI #### [facility] [address] [place] [address] Dr. Emilie Stack Sodium [Moles/Vol] 140 mmol/L Normal 136-145 [facility] Comment on above: Performed By: #### C MP, BNP, YESI #### [facility] [address] [place] [address] Dr. Emilie Stack Urea nitrogen [Mass/Vol] 10.0 mg/dL Normal 7.0-18.0 [facility] Comment on above: Performed By: #### C MP, BNP, YESI #### [facility] [address] [place] [address] Dr. Emilie Stack Urea nitrogen/Creatinine [Mass ratio] 9.3 mg/mg Normal [facility] Comment on above: Performed By: #### C MP, BNP, YESI #### [facility] [address] [place] [address] Dr. Emilie Stack THEOPHYLLINEon 08-11-2022 THEOPHYLLINE 7.7 ug/mL Critically low 10.0-20.0 [facility] Comment on above: Performed By: #### C MP, BNP, YESI #### [facility] [address] [place] [address] Dr. Emilie Stack UA RANDOM W/MICROSCOPICon BACTERIA NONE SEEN Normal NONE SEEN [facility] Comment on above: Performed By: #### T ROSSY, CMP, BNP #### [facility] [address] [place] [address] Dr. Emilie Stack Bilirubin Ql (U) Negative Normal NEGATIVE [facility] Comment on above: Performed By: #### T ROSSY CMP, BNP #### [facility] [address] [address] [address] Emilie Stack CAST NONE SEEN Normal NONE SEEN [facility] Comment on above: Performed By: #### T ROSSY CMP, BNP #### [facility] [address] [address] [address] Emilie Stack Clarity (U) CLEAR Normal CLEAR [facility] Comment on above: Performed By: #### T ROSSY CMP, BNP #### [facility] [address] [address] [address] Emilie Stack Color (U) LT. YELLOW Normal YELLOW [facility] Comment on above: Performed By: #### T ROSSY CMP, BNP #### [facility] [address] [place] [address] Dr. Emilie Stack Crystals LM Nom (Urine sed) NONE SEEN Normal NONE SEEN [facility] Comment on above: Performed By: #### T ROSSY CMP, BNP #### [facility] [address] [place] [address] Dr. Emilie Stack Epithelial cells LM Ql (Urine sed) NONE SEEN Normal NONE SEEN /RARE [facility] Comment on above: Performed By: #### Patience BLAIR CMP, BNP #### [facility] [address] [place] [address] Dr. Emilie Stack Glucose Ql (U) Negative Normal NEGATIVE [facility] Comment on above: Performed By: #### T ROSSY CMP, BNP #### [facility] [address] [place] [address] Dr. Emilie Stack Hemoglobin Ql (U) TRACE-INTACT Abnormal NEGATIVE [facility] Comment on above: Performed By: #### T ROSSY CMP, BNP #### [facility] [address] [place] [address] Dr. Emilie Stack Ketones Ql (U) Negative Normal NEGATIVE [facility] Comment on above: Performed By: #### T ROSSY CMP, BNP #### [facility] [address] [address] [address] Emilie Stack LEUKOCYTES Negative Normal NEGATIVE [facility] Comment on above: Performed By: #### T ROSSY, CMP, BNP #### [facility] [address] [address] [address] Emilie Stack MUCOUS NONE SEEN Normal NONE SEEN [facility] Comment on above: Performed By: #### T ROSSY, CMP, BNP #### [facility] [address] [address] [address] Emilie Stack Nitrite Ql (U) Negative Normal NEGATIVE [facility] Comment on above: Performed By: #### T ROSSY, CMP, BNP #### [facility] [address] [place] [address] Dr. Emilie Stack pH (U) 6.0 [pH] Normal 5-9 [facility] Comment on above: Performed By: #### T ROSSY CMP, BNP #### [facility] [address] [place] [address] Dr. Emilie Stack RBC 2-5 Abnormal 0-2 [facility] Comment on above: Performed By: #### T ROSSY CMP, BNP #### [facility] [address] [place] [address] Dr. Emilie Stack SPEC GRAVITY 1.015 Normal 1.005-<=1.025 [facility] Comment on above: Performed By: #### T ROSSY, CMP, BNP #### [facility] [address] [place] [address] Dr. Emilie Stack UA PROTEIN Negative Normal NEGATIVE/ TRACE [facility] Comment on above: Performed By: #### T ROSSY, CMP, BNP #### [facility] [address] [place] [address] Dr. Emilie Stack Urobilinogen Qn (U) 0.2 {Jose Guadalupe'U}/dL Normal 0.2 - 1. 0 [facility] Comment on above: Performed By: #### T ROSSY, CMP, BNP #### [facility] [address] [place] [address] Dr. Emilie Stack WBC 0-2 Abnormal NONE SEEN [facility] Comment on above: Performed By: #### T ROSSY, CMP, BNP #### [facility] [address] [place] [address] Dr. Emilie Stack BNPon 3 Natriuretic peptide B (Bld) [Mass/Vol] 92.0 pg/mL Normal <=900.0 [facility] Comment on above: Performed By: #### T ROSSY, CMP, BNP #### [facility] [address] [place] [address] Dr. Emilie Stack CARDIAC GATITO 3-6on 3 CK [Catalytic activity/Vol] 56 U/L Normal 39-308 [facility] Comment on above: Performed By: #### C MP, BNP, YESI #### [facility] [address] [place] [address] Dr. Emilie Stack CK.MB [Mass/Vol] 0.95 ng/mL Normal <=3.60 [facility] Comment on above: Performed By: #### C MP, BNP, YESI #### [facility] [address] [place] [address] Dr. Emilie Stack HSTROP 5.5 pg/mL Normal 4.0-76.1 [facility] Comment on above: Result Comment: CUT- OFF POINTS HAVE BEEN ESTABLISHED BASED ON THE FOURTH UNIVERSAL DEFINITIONS OF MYOCARDIAL INFARCTION. THE UPPER REFERENCE LIMIT (URL) OF TROPONIN, DEFINED THE 99TH PERCENTILE OF cTnI DISTRIBUTION IN A REFERENCE POPULATION, HAS BEEN CONFIRMED THE DECISION THRESHOLD FOR MD DIAGNOSIS. Performed By: #### C MP, BNP, YESI #### [facility] [address] [place] [address] Dr. Emilie Stack CARDIAC GATITO ADMITon 023 CK [Catalytic activity/Vol] 55 U/L Normal 39-308 [facility] Comment on above: Performed By: #### T ROSSY, CMP, BNP #### [facility] [address] [place] [address] Dr. Emilie Stack CK.MB [Mass/Vol] 0.94 ng/mL Normal <=3.60 [facility] Comment on above: Performed By: #### T ROSSY, CMP, BNP #### [facility] [address] [address] [address] Emilie Stack HSTROP 5.0 pg/mL Normal 4.0-76.1 [facility] Comment on above: Result Comment: CUT- OFF POINTS HAVE BEEN ESTABLISHED BASED ON THE FOURTH UNIVERSAL DEFINITIONS OF MYOCARDIAL INFARCTION. THE UPPER REFERENCE LIMIT (URL) OF TROPONIN, DEFINED THE 99TH PERCENTILE OF cTnI DISTRIBUTION IN A REFERENCE POPULATION, HAS BEEN CONFIRMED THE DECISION THRESHOLD FOR MD DIAGNOSIS. Performed By: #### T ROSSY, CMP, BNP #### [facility] [address] [address] [address] Emilie Stack BELEN 65 ng/mL Normal 16-96 [facility] Comment on above: Performed By: #### T ROSSY, CMP, BNP #### [facility] [address] [place] [address] Dr. Emilie Stack CBC AUTO DIFFon 08-10-2022 BASO # 0.0 103/ul Normal 0.0-0.1 [facility] Comment on above: Performed By: #### C MP, BNP, YESI #### [facility] [address] [address] [address] Emilie Stack Basophils/100 WBC (Bld) 0.2 % Normal 0.2-2.0 [facility] Comment on above: Performed By: #### C MP, BNP, YESI #### [facility] [address] [address] [address] Emilie Stack EO # 0.0 103/ul Normal 0.0-0.7 [facility] Comment on above: Performed By: #### C MP, BNP, YESI #### [facility] [address] [address] [address] Emilie Stack Eosinophils/100 WBC (Bld) 0.0 % Critically low 0.9-7.0 [facility] Comment on above: Performed By: #### C MP, BNP, YESI #### [facility] [address] [address] [address] Emilie Stack Erythrocyte distribution width (RBC) [Ratio] 14.7 % Normal 11.0-15.0 [facility] Comment on above: Performed By: #### C MP, BNP, YESI #### [facility] [address] [place] [address] Dr. Emilie Stack Hematocrit (Bld) [Volume fraction] 42.7 % Normal 42.0-54.0 [facility] Comment on above: Performed By: #### C MP, BNP, YESI #### [facility] [address] [place] [address] Dr. Emilie Stack Hemoglobin (Bld) [Mass/Vol] 14.4 g/dL Normal 14.0-18.0 [facility] Comment on above: Performed By: #### C MP, BNP, YESI #### [facility] [address] [place] [address] Dr. Emilie Stack IG # 0.08 10e3/ul Critically high 0.00-0.03 [facility] Comment on above: Performed By: #### C MP, BNP, YESI #### [facility] [address] [place] [address] Dr. Emilie Stack IG % 0.9 % Critically high 0.0-0.5 [facility] Comment on above: Performed By: #### C MP, BNP, YESI #### [facility] [address] [place] [address] Dr. Emilie Stack LYMPH # 0.4 103/ul Critically low 1.2-3.8 [facility] Comment on above: Performed By: #### C MP, BNP, YESI #### [facility] [address] [place] [address] Dr. Emilie Stack Lymphocytes/100 WBC (Bld) 4.8 % Critically low 20.5-60.0 [facility] Comment on above: Performed By: #### C MP, BNP, YESI #### [facility] [address] [place] [address] Dr. Emilie Stack MANUAL DIFF REQ NO Normal [facility] Comment on above: Performed By: #### C MP, BNP, YESI #### [facility] [address] [address] [address] Emilie Stack MCH (RBC) [Entitic mass] 30.6 pg Normal 25.9-34.0 [facility] Comment on above: Performed By: #### C MP, BNP, YESI #### [facility] [address] [place] [address] Dr. Emilie Stack MCHC (RBC) [Mass/Vol] 33.7 g/dL Normal 29.9-35.2 [facility] Comment on above: Performed By: #### C MP, BNP, YESI #### [facility] [address] [place] [address] Dr. Emilie Stack MCV (RBC) [Entitic vol] 90.9 fL Normal 80.0-94.0 [facility] Comment on above: Performed By: #### C MP, BNP, YESI #### [facility] [address] [place] [address] Dr. Emilie Stack MONO # 0.7 103/ul Normal 0.3-0.8 [facility] Comment on above: Performed By: #### C MP, BNP, YESI #### [facility] [address] [address] [address] Emilie Stack Monocytes/100 WBC (Bld) 7.6 % Normal 1.7-12.0 [facility] Comment on above: Performed By: #### C MP, BNP, YESI #### [facility] [address] [place] [address] Dr. Emilie Stack NEUT # 7.5 103/ul Critically high 1.4-6.5 [facility] Comment on above: Performed By: #### C MP, BNP, YESI #### [facility] [address] [place] [address] Dr. Emilie Stack Neutrophils/100 WBC (Bld) 86.5 % Critically high 43.0-75.0 [facility] Comment on above: Performed By: #### C MP, BNP, YESI #### [facility] [address] [place] [address] Dr. Emilie Stack Platelet mean volume (Bld) [Entitic vol] 8.7 fL Critically low 9.5-13.5 [facility] Comment on above: Performed By: #### C MP, BNP, YESI #### [facility] [address] [address] [address] Emilie Stack PLT 295 103/ul Normal 150-450 [facility] Comment on above: Performed By: #### C MP, BNP, YESI #### [facility] [address] [address] [address] Emilie Stack RBC 4.70 106/ul Normal 4.70-6.10 [facility] Comment on above: Performed By: #### C MP, BNP, YESI #### [facility] [address] [address] [address] Emilie Stack WBC 8.7 103/ul Normal 4.0-11.0 [facility] Comment on above: Performed By: #### C MP, BNP, YESI #### [facility] [address] [address] [address] Emilie Stack CTA CHEST WO W CONon 15-2 023 CTA CHEST WO W CON EXAMINATION: [...] MAITE FRAZIER Date: 2022-08-10 20:52 Normal [facility] CULTURE BLOODon 08-10-2022 Microscopic examination of blood, culture Culture Observations: NO GROWTH AT 5 DAYS. Normal [facility] Comment on above: Performed By: #### Patience BLAIR CMP, BNP #### [facility] [address] [address] [address] Emilie Stack Microscopic examination of blood, culture Culture Observations: NO GROWTH AT 5 DAYS. Normal [facility] Comment on above: Performed By: #### Patience BLAIR CMP, BNP #### [facility] [address] [address] [address] Emilie Stack Covid-19 PCR ([facility])on 07-27 SARS-CoV-2 (COVID-19) RNA [place]+probe Ql (Unsp spec) Detected Abnormal NOT DETECTED [facility] Comment on above: Result Comment: This test is not yet approved or cleared by the [place] FDA. When there are no FDA-approved or cleared tests available, and other criteria are met, FDA can make tests available under an emergency access mechanism called an Emergency Use Authorization (EUA). The EUA for this test is supported by the Polymer Chemist of Health and Human Service's declaration that [...] By: #### Patience BLAIR CMP, BNP #### [facility] [address] [address] [address] Emilie Stack LACTATE/LACTIC ACIDon 2022 Lactate [Moles/Vol] 2.0 mmol/L Critically high 0.4-1.9 [facility] Comment on above: Performed By: #### ANDREE ZAMBRANO, CMP #### [facility] [address] [address] [address] Emilie Stack PROF 14(COMP METB)on 023 Albumin [Mass/Vol] 3.4 g/dL Normal 3.4-5.0 [facility] Comment on above: Performed By: #### T ROSSY, CMP, BNP #### [facility] [address] [place] [address] Dr. Emilie Stack Albumin/Globulin [Mass ratio] 1.1 {ratio} Normal [facility] Comment on above: Performed By: #### T ROSSY, CMP, BNP #### [facility] [address] [place] [address] Dr. Emilie Stack ALP [Catalytic activity/Vol] 123 U/L Critically high 46-116 [facility] Comment on above: Performed By: #### T ROSSY, CMP, BNP #### [facility] [address] [place] [address] Dr. Emilie Stack ALT [Catalytic activity/Vol] 27 U/L Normal 16-63 [facility] Comment on above: Performed By: #### T ROSSY, CMP, BNP #### [facility] [address] [place] [address] Dr. Emilie Stack Anion gap [Moles/Vol] 11.9 mmol/L Normal [facility] Comment on above: Performed By: #### T ROSSY, CMP, BNP #### [facility] [address] [place] [address] Dr. Emilie Stack AST [Catalytic activity/Vol] 14 U/L Critically low 15-37 [facility] Comment on above: Performed By: #### T ROSSY, CMP, BNP #### [facility] [address] [place] [address] Dr. Emilie Stack Bilirubin [Mass/Vol] 0.2 mg/dL Normal 0.2-1.0 [facility] Comment on above: Performed By: #### T ROSSY, CMP, BNP #### [facility] [address] [place] [address] Dr. Emilie Stack Calcium [Mass/Vol] 8.4 mg/dL Critically low 8.5-10.1 [facility] Comment on above: Performed By: #### T ROSSY CMP, BNP #### [facility] [address] [address] [address] Emilie Stack Chloride [Moles/Vol] 105 mmol/L Normal 98-107 [facility] Comment on above: Performed By: #### Patience BLAIR CMP, BNP #### [facility] [address] [address] [address] Emilie Stack CO2 [Moles/Vol] 27.2 mmol/L Normal 21.0-32.0 [facility] Comment on above: Performed By: #### Patience BLAIR CMP, BNP #### [facility] [address] [place] [address] Dr. Emilie Stack Creatinine [Mass/Vol] 1.06 mg/dL Normal 0.70-1.30 [facility] Comment on above: Performed By: #### Patience BLAIR CMP, BNP #### [facility] [address] [address] [address] Emilie Stack EGFR-AF KYRGYZ >60 Normal >=60 [facility] Comment on above: Performed By: #### Patience BLAIR CMP, BNP #### [facility] [address] [place] [address] Dr. Emilie Stack EGFR-NON AF KYRGYZ >60 Normal >=60 [facility] Comment on above: Performed By: #### Patience BLAIR CMP, BNP #### [facility] [address] [address] [address] Emilie Stack Globulin (S) [Mass/Vol] 3.1 g/dL Normal [facility] Comment on above: Performed By: #### T ROSSY CMP, BNP #### [facility] [address] [address] [address] Emilie Stack Glucose [Mass/Vol] 115 mg/dL Critically high 74-106 [facility] Comment on above: Performed By: #### T ROSSY CMP, BNP #### [facility] [address] [address] [address] Emilie Stack Potassium [Moles/Vol] 4.1 mmol/L Normal 3.5-5.1 [facility] Comment on above: Performed By: #### Patience BLAIR CMP, BNP #### [facility] [address] [place] [address] Dr. Emilie Stack Protein [Mass/Vol] 6.5 g/dL Normal 6.4-8.2 [facility] Comment on above: Performed By: #### Patience BLAIR CMP, BNP #### [facility] [address] [address] [address] Emilie Stack Sodium [Moles/Vol] 140 mmol/L Normal 136-145 [facility] Comment on above: Performed By: #### Patience BLAIR CMP, BNP #### [facility] [address] [place] [address] Dr. Emilie Stack Urea nitrogen [Mass/Vol] 11.0 mg/dL Normal 7.0-18.0 [facility] Comment on above: Performed By: #### Patience BLAIR CMP, BNP #### [facility] [address] [place] [address] Dr. Emilie Stack Urea nitrogen/Creatinine [Mass ratio] 10.4 mg/mg Normal [facility] Comment on above: Performed By: #### Patience BLAIR CMP, BNP #### [facility] [address] [place] [address] Dr. Emilie Stack T4on 08-10-2022 T4 [Mass/Vol] 9.00 ug/dL Normal 4.50-12.10 [facility] Comment on above: Performed By: #### Patience BLAIR CMP, BNP #### [facility] [address] [place] [address] Dr. Emilie Stack THEOPHYLLINEon 08-10-2022 THEOPHYLLINE 5.1 ug/mL Critically low 10.0-20.0 [facility] Comment on above: Performed By: #### Patience BLAIR CMP, BNP #### [facility] [address] [place] [address] Dr. Emilie Stack TSHon 08-10-2022 TSH 0.585 uIU/mL Normal 0.358-3.740 [facility] Comment on above: Performed By: #### T ROSSY, CMP, BNP #### [facility] [address] [place] [address] Dr. Emilie Stack BNPon 06-18-2022 Natriuretic peptide B (Bld) [Mass/Vol] 297.0 pg/mL Normal <=900.0 [facility] Comment on above: Performed By: #### T ROSSY, CMP, BNP #### [facility] [address] [place] [address] Dr. Emilie Stack CBC AUTO DIFFon 06-18-2022 BASO # 0.0 103/ul Normal 0.0-0.1 [facility] Comment on above: Performed By: #### T ROSSY, CMP, BNP #### [facility] [address] [place] [address] Dr. Emilie Stack Basophils/100 WBC (Bld) 0.1 % Critically low 0.2-2.0 [facility] Comment on above: Performed By: #### T ROSSY, CMP, BNP #### [facility] [address] [place] [address] Dr. Emilie Stack EO # 0.0 103/ul Normal 0.0-0.7 [facility] Comment on above: Performed By: #### T ROSSY, CMP, BNP #### [facility] [address] [place] [address] Dr. Emilie Stack Eosinophils/100 WBC (Bld) 0.0 % Critically low 0.9-7.0 [facility] Comment on above: Performed By: #### T ROSSY, CMP, BNP #### [facility] [address] [place] [address] Dr. Emilie Stack Erythrocyte distribution width (RBC) [Ratio] 14.5 % Normal 11.0-15.0 [facility] Comment on above: Performed By: #### T ROSSY, CMP, BNP #### [facility] [address] [place] [address] Dr. Emilie Stack Hematocrit (Bld) [Volume fraction] 40.2 % Critically low 42.0-54.0 [facility] Comment on above: Performed By: #### Patience BLAIR CMP, BNP #### [facility] [address] [address] [address] Emilie Stack Hemoglobin (Bld) [Mass/Vol] 13.4 g/dL Critically low 14.0-18.0 [facility] Comment on above: Performed By: #### T ROSSY CMP, BNP #### [facility] [address] [place] [address] Dr. Emilie Stack IG # 0.08 10e3/ul Critically high 0.00-0.03 [facility] Comment on above: Performed By: #### Patience BLAIR CMP, BNP #### [facility] [address] [place] [address] Dr. Emilie Stack IG % 0.7 % Critically high 0.0-0.5 [facility] Comment on above: Performed By: #### Patience BLAIR CMP, BNP #### [facility] [address] [address] [address] Emilie Stack LYMPH # 0.5 103/ul Critically low 1.2-3.8 [facility] Comment on above: Performed By: #### Patience BLAIR CMP, BNP #### [facility] [address] [place] [address] Dr. Emilie Stack Lymphocytes/100 WBC (Bld) 4.4 % Critically low 20.5-60.0 [facility] Comment on above: Performed By: #### Patience BLAIR CMP, BNP #### [facility] [address] [place] [address] Dr. Emilie Stack MANUAL DIFF REQ NO Normal [facility] Comment on above: Performed By: #### Patience BLAIR CMP, BNP #### [facility] [address] [place] [address] Dr. Emilie Stack MCH (RBC) [Entitic mass] 30.0 pg Normal 25.9-34.0 [facility] Comment on above: Performed By: #### T ROSSY CMP, BNP #### [facility] [address] [place] [address] Dr. Emilie Stack MCHC (RBC) [Mass/Vol] 33.3 g/dL Normal 29.9-35.2 [facility] Comment on above: Performed By: #### T ROSSY CMP, BNP #### [facility] [address] [address] [address] Emilie Stack MCV (RBC) [Entitic vol] 89.9 fL Normal 80.0-94.0 [facility] Comment on above: Performed By: #### T ROSSY, CMP, BNP #### [facility] [address] [address] [address] Emilie Stack MONO # 0.5 103/ul Normal 0.3-0.8 [facility] Comment on above: Performed By: #### T ROSSY CMP, BNP #### [facility] [address] [address] [address] Emilie Stack Monocytes/100 WBC (Bld) 4.3 % Normal 1.7-12.0 [facility] Comment on above: Performed By: #### T ROSSY CMP, BNP #### [facility] [address] [address] [address] Emilie Stack NEUT # 10.8 103/ul Critically high 1.4-6.5 [facility] Comment on above: Performed By: #### T ROSSY CMP, BNP #### [facility] [address] [address] [address] Emilie Stack Neutrophils/100 WBC (Bld) 90.5 % Critically high 43.0-75.0 [facility] Comment on above: Performed By: #### T ROSSY CMP, BNP #### [facility] [address] [address] [address] Emilie Stack Platelet mean volume (Bld) [Entitic vol] 8.5 fL Critically low 9.5-13.5 [facility] Comment on above: Performed By: #### T ROSSY CMP, BNP #### [facility] [address] [address] [address] Emilie Stack PLT 309 103/ul Normal 150-450 [facility] Comment on above: Performed By: #### T ROSSY, CMP, BNP #### [facility] [address] [address] [address] Emilie Stack RBC 4.47 106/ul Critically low 4.70-6.10 [facility] Comment on above: Performed By: #### T ROSSY, CMP, BNP #### [facility] [address] [address] [address] Emilie Stack WBC 11.9 103/ul Critically high 4.0-11.0 [facility] Comment on above: Performed By: #### T ROSSY CMP, BNP #### [facility] [address] [address] [address] Emilie Stack PROF 14(COMP METB)on 022 Albumin [Mass/Vol] 3.4 g/dL Normal 3.4-5.0 [facility] Comment on above: Performed By: #### T ROSSY CMP, BNP #### [facility] [address] [place] [address] Dr. Emilie Stack Albumin/Globulin [Mass ratio] 1.0 {ratio} Normal [facility] Comment on above: Performed By: #### Patience BLAIR CMP, BNP #### [facility] [address] [place] [address] Dr. Emilie Stack ALP [Catalytic activity/Vol] 120 U/L Critically high 46-116 [facility] Comment on above: Performed By: #### T ROSSY CMP, BNP #### [facility] [address] [place] [address] Dr. Emilie Stack ALT [Catalytic activity/Vol] 17 U/L Normal 16-63 [facility] Comment on above: Performed By: #### T ROSSY CMP, BNP #### [facility] [address] [address] [address] Emilie Stack Anion gap [Moles/Vol] 13.3 mmol/L Normal [facility] Comment on above: Performed By: #### T ROSSY CMP, BNP #### [facility] [address] [address] [address] Emilie Stack AST [Catalytic activity/Vol] 15 U/L Normal 15-37 [facility] Comment on above: Performed By: #### Patience BLAIR CMP, BNP #### [facility] [address] [place] [address] Dr. Emilie Stack Bilirubin [Mass/Vol] 0.2 mg/dL Normal 0.2-1.0 [facility] Comment on above: Performed By: #### Patience BLAIR CMP, BNP #### [facility] [address] [place] [address] Dr. Emilie Stack Calcium [Mass/Vol] 8.5 mg/dL Normal 8.5-10.1 [facility] Comment on above: Performed By: #### Patience BLAIR CMP, BNP #### [facility] [address] [place] [address] Dr. Emilie Stack Chloride [Moles/Vol] 102 mmol/L Normal 98-107 [facility] Comment on above: Performed By: #### Patience BLAIR CMP, BNP #### [facility] [address] [place] [address] Dr. Emilie Stack CO2 [Moles/Vol] 24.1 mmol/L Normal 21.0-32.0 [facility] Comment on above: Performed By: #### Patience BLAIR CMP, BNP #### [facility] [address] [place] [address] Dr. Emilie Stack Creatinine [Mass/Vol] 1.12 mg/dL Normal 0.70-1.30 [facility] Comment on above: Performed By: #### Patience BLAIR CMP, BNP #### [facility] [address] [place] [address] Dr. Emilie Stack EGFR-AF KYRGYZ >60 Normal >=60 [facility] Comment on above: Performed By: #### T ROSSY CMP, BNP #### [facility] [address] [place] [address] Dr. Emilie Stack EGFR-NON AF KYRGYZ >60 Normal >=60 [facility] Comment on above: Performed By: #### T ROSSY, CMP, BNP #### [facility] [address] [address] [address] Emilie Stack Globulin (S) [Mass/Vol] 3.3 g/dL Normal [facility] Comment on above: Performed By: #### T ROSSY, CMP, BNP #### [facility] [address] [address] [address] Emilie Stack Glucose [Mass/Vol] 138 mg/dL Critically high 74-106 [facility] Comment on above: Performed By: #### T ROSSY, CMP, BNP #### [facility] [address] [place] [address] Dr. Emilie Stack Potassium [Moles/Vol] 4.4 mmol/L Normal 3.5-5.1 [facility] Comment on above: Performed By: #### T ROSSY CMP, BNP #### [facility] [address] [place] [address] Dr. Emilie Stack Protein [Mass/Vol] 6.7 g/dL Normal 6.4-8.2 [facility] Comment on above: Performed By: #### T ROSSY CMP, BNP #### [facility] [address] [address] [address] Emilie Stack Sodium [Moles/Vol] 135 mmol/L Critically low 136-145 [facility] Comment on above: Performed By: #### T ROSSY CMP, BNP #### [facility] [address] [place] [address] Dr. Emilie Stack Urea nitrogen [Mass/Vol] 23.0 mg/dL Critically high 7.0-18.0 [facility] Comment on above: Performed By: #### T ROSSY, CMP, BNP #### [facility] [address] [place] [address] Dr. Emilie Stack Urea nitrogen/Creatinine [Mass ratio] 20.5 mg/mg Normal [facility] Comment on above: Performed By: #### T ROSSY, CMP, BNP #### [facility] [address] [address] [address] Emilie Stack THEOPHYLLINE 06-18-2022 THEOPHYLLINE 9.0 ug/mL Critically low 10.0-20.0 [facility] Comment on above: Performed By: #### T ROSSY, CMP, BNP #### [facility] [address] [place] [address] Dr. Emilie Stack BNPon 06-17-2022 Natriuretic peptide B (Bld) [Mass/Vol] 320.0 pg/mL Normal <=900.0 [facility] Comment on above: Performed By: #### T ROSSY, BNP, CMP #### [facility] [address] [place] [address] Dr. Emilie Stack CBC AUTO DIFFon 06-17-2022 BASO # 0.0 103/ul Normal 0.0-0.1 [facility] Comment on above: Performed By: #### T ROSSY, CMP, BNP #### [facility] [address] [place] [address] Dr. Emilie Stack Basophils/100 WBC (Bld) 0.1 % Critically low 0.2-2.0 [facility] Comment on above: Performed By: #### T ROSSY, CMP, BNP #### [facility] [address] [address] [address] Emilie Stack EO # 0.0 103/ul Normal 0.0-0.7 [facility] Comment on above: Performed By: #### T ROSSY, CMP, BNP #### [facility] [address] [place] [address] Dr. Emilie Stack Eosinophils/100 WBC (Bld) 0.0 % Critically low 0.9-7.0 [facility] Comment on above: Performed By: #### T ROSSY, CMP, BNP #### [facility] [address] [place] [address] Dr. Emilie Stack Erythrocyte distribution width (RBC) [Ratio] 14.3 % Normal 11.0-15.0 [facility] Comment on above: Performed By: #### T ROSSY, CMP, BNP #### [facility] [address] [place] [address] Dr. Emilie Stack Hematocrit (Bld) [Volume fraction] 41.7 % Critically low 42.0-54.0 [facility] Comment on above: Performed By: #### Patience BLAIR CMP, BNP #### [facility] [address] [place] [address] Dr. Emilie Stack Hemoglobin (Bld) [Mass/Vol] 13.8 g/dL Critically low 14.0-18.0 [facility] Comment on above: Performed By: #### Patience BLAIR CMP, BNP #### [facility] [address] [place] [address] Dr. Emilie Stack IG # 0.09 10e3/ul Critically high 0.00-0.03 [facility] Comment on above: Performed By: #### Patience BLAIR CMP, BNP #### [facility] [address] [place] [address] Dr. Emilie Stack IG % 0.6 % Critically high 0.0-0.5 [facility] Comment on above: Performed By: #### Patience BLAIR CMP, BNP #### [facility] [address] [place] [address] Dr. Emilie Stack LYMPH # 0.6 103/ul Critically low 1.2-3.8 [facility] Comment on above: Performed By: #### Patience BLAIR CMP, BNP #### [facility] [address] [place] [address] Dr. Emilie Stack Lymphocytes/100 WBC (Bld) 4.1 % Critically low 20.5-60.0 [facility] Comment on above: Performed By: #### Patience BLAIR CMP, BNP #### [facility] [address] [place] [address] Dr. Emilie Stack MANUAL DIFF REQ NO Normal [facility] Comment on above: Performed By: #### Patience BLAIR CMP, BNP #### [facility] [address] [place] [address] Dr. Emilie Stack MCH (RBC) [Entitic mass] 29.9 pg Normal 25.9-34.0 [facility] Comment on above: Performed By: #### Patience BLAIR CMP, BNP #### [facility] [address] [place] [address] Dr. Emilie Stack MCHC (RBC) [Mass/Vol] 33.1 g/dL Normal 29.9-35.2 [facility] Comment on above: Performed By: #### T ROSSY, CMP, BNP #### [facility] [address] [place] [address] Dr. Emilie Stack MCV (RBC) [Entitic vol] 90.5 fL Normal 80.0-94.0 [facility] Comment on above: Performed By: #### T ROSSY, CMP, BNP #### [facility] [address] [place] [address] Dr. Emilie Stack MONO # 0.5 103/ul Normal 0.3-0.8 [facility] Comment on above: Performed By: #### T ROSSY, CMP, BNP #### [facility] [address] [place] [address] Dr. Emilie Stack Monocytes/100 WBC (Bld) 3.4 % Normal 1.7-12.0 [facility] Comment on above: Performed By: #### T ROSSY, CMP, BNP #### [facility] [address] [place] [address] Dr. Emilie Stack NEUT # 13.1 103/ul Critically high 1.4-6.5 [facility] Comment on above: Performed By: #### T ROSSY, CMP, BNP #### [facility] [address] [place] [address] Dr. Emilie Stack Neutrophils/100 WBC (Bld) 91.8 % Critically high 43.0-75.0 [facility] Comment on above: Performed By: #### T ROSSY, CMP, BNP #### [facility] [address] [place] [address] Dr. Emilie Stack Platelet mean volume (Bld) [Entitic vol] 8.8 fL Critically low 9.5-13.5 [facility] Comment on above: Performed By: #### T ROSSY, CMP, BNP #### [facility] [address] [place] [address] Dr. Emilie Stack PLT 341 103/ul Normal 150-450 [facility] Comment on above: Performed By: #### T ROSSY, CMP, BNP #### [facility] [address] [address] [address] Emilie Stack RBC 4.61 106/ul Critically low 4.70-6.10 [facility] Comment on above: Performed By: #### T ROSSY, CMP, BNP #### [facility] [address] [address] [address] Emilie Stack WBC 14.3 103/ul Critically high 4.0-11.0 [facility] Comment on above: Performed By: #### T ROSSY, CMP, BNP #### [facility] [address] [address] [address] Emilie Stack PROF 14(COMP METB)on 022 Albumin [Mass/Vol] 3.8 g/dL Normal 3.4-5.0 [facility] Comment on above: Performed By: #### T ROSSY, BNP, CMP #### [facility] [address] [address] [address] Emilie Stack Albumin/Globulin [Mass ratio] 1.1 {ratio} Normal [facility] Comment on above: Performed By: #### T ROSSY, BNP, CMP #### [facility] [address] [place] [address] Dr. Emilie Stack ALP [Catalytic activity/Vol] 139 U/L Critically high 46-116 [facility] Comment on above: Performed By: #### T ROSSY, BNP, CMP #### [facility] [address] [address] [address] Emilie Stack ALT [Catalytic activity/Vol] 20 U/L Normal 16-63 [facility] Comment on above: Performed By: #### T ROSSY, BNP, CMP #### [facility] [address] [place] [address] Dr. Emilie Stack Anion gap [Moles/Vol] 15.1 mmol/L Normal [facility] Comment on above: Performed By: #### T ROSSY, BNP, CMP #### [facility] [address] [address] [address] Emilie Stack AST [Catalytic activity/Vol] 16 U/L Normal 15-37 [facility] Comment on above: Performed By: #### T ROSSY, BNP, CMP #### [facility] [address] [address] [address] Emilie Stack Bilirubin [Mass/Vol] 0.2 mg/dL Normal 0.2-1.0 [facility] Comment on above: Performed By: #### T ROSSY, BNP, CMP #### [facility] [address] [address] [address] Emilie Stack Calcium [Mass/Vol] 9.2 mg/dL Normal 8.5-10.1 [facility] Comment on above: Performed By: #### T ROSSY, BNP, CMP #### [facility] [address] [place] [address] Dr. Emilie Stack Chloride [Moles/Vol] 102 mmol/L Normal 98-107 [facility] Comment on above: Performed By: #### T ROSSY, BNP, CMP #### [facility] [address] [address] [address] Emilie Stack CO2 [Moles/Vol] 23.2 mmol/L Normal 21.0-32.0 [facility] Comment on above: Performed By: #### T ROSSY, BNP, CMP #### [facility] [address] [address] [address] Emilie Stack Creatinine [Mass/Vol] 1.16 mg/dL Normal 0.70-1.30 [facility] Comment on above: Performed By: #### T ROSSY, BNP, CMP #### [facility] [address] [address] [address] Emilie Stack EGFR-AF KYRGYZ >60 Normal >=60 [facility] Comment on above: Performed By: #### T ROSSY, BNP, CMP #### [facility] [address] [address] [address] Emilie Stack EGFR-NON AF KYRGYZ >60 Normal >=60 [facility] Comment on above: Performed By: #### T ROSSY, BNP, CMP #### [facility] [address] [address] [address] Emilie Stack Globulin (S) [Mass/Vol] 3.6 g/dL Normal [facility] Comment on above: Performed By: #### T ROSSY, BNP, CMP #### [facility] [address] [address] [address] Emilie Stack Glucose [Mass/Vol] 138 mg/dL Critically high 74-106 [facility] Comment on above: Performed By: #### T ROSSY, BNP, CMP #### [facility] [address] [address] [address] Emilie Stack Potassium [Moles/Vol] 4.3 mmol/L Normal 3.5-5.1 [facility] Comment on above: Performed By: #### T ROSSY, BNP, CMP #### [facility] [address] [place] [address] Dr. Emilie Stack Protein [Mass/Vol] 7.4 g/dL Normal 6.4-8.2 [facility] Comment on above: Performed By: #### T ROSSY, BNP, CMP #### [facility] [address] [place] [address] Dr. Emilie Stack Sodium [Moles/Vol] 136 mmol/L Normal 136-145 [facility] Comment on above: Performed By: #### T ROSSY, BNP, CMP #### [facility] [address] [address] [address] Emilie Stack Urea nitrogen [Mass/Vol] 19.0 mg/dL Critically high 7.0-18.0 [facility] Comment on above: Performed By: #### T ROSSY, BNP, CMP #### [facility] [address] [place] [address] Dr. Emilie Stack Urea nitrogen/Creatinine [Mass ratio] 16.4 mg/mg Normal [facility] Comment on above: Performed By: #### T ROSSY, BNP, CMP #### [facility] [address] [place] [address] Dr. Emilie Stack THEOPHYLLINEon 06-17-2022 THEOPHYLLINE 8.3 ug/mL Critically low 10.0-20.0 [facility] Comment on above: Performed By: #### T ROSSY, BNP, CMP #### [facility] [address] [place] [address] Dr. Emilie Stack BNPon 06-16-2022 Natriuretic peptide B (Bld) [Mass/Vol] 73.0 pg/mL Normal <=900.0 [facility] Comment on above: Performed By: #### C MP, BNP, YESI #### [facility] [address] [place] [address] Dr. Emilie Stack CBC W MANUAL DIFFon 06-16-20 ATYPICAL LYMPH # Normal [facility] Comment on above: Performed By: #### C MP, BNP, YESI #### [facility] [address] [place] [address] Dr. Emilie Stack ATYPICAL LYMPH % Normal [facility] Comment on above: Performed By: #### C MP, BNP, YESI #### [facility] [address] [place] [address] Dr. Emilie Stack BAND # 0.0 103/ul Normal 0.0-0.3 [facility] Comment on above: Performed By: #### C MP, BNP, YESI #### [facility] [address] [place] [address] Dr. Emilie Stack BAND % 0 % Normal 0-5 [facility] Comment on above: Performed By: #### C MP, BNP, YESI #### [facility] [address] [place] [address] Dr. Emilie Stack BASOM # 0.00 103/ul Normal 0.00-0.10 [facility] Comment on above: Performed By: #### C MP, BNP, YESI #### [facility] [address] [place] [address] Dr. Emilie Stack BASOM % 0.0 % Critically low 0.2-2.0 [facility] Comment on above: Performed By: #### C MP, BNP, YESI #### [facility] [address] [place] [address] Dr. Emilie Stack BLAST # Normal [facility] Comment on above: Performed By: #### C MP, BNP, YESI #### [facility] [address] [place] [address] Dr. Emilie Stack BLAST % Normal [facility] Comment on above: Performed By: #### C MP, BNP, YESI #### [facility] [address] [place] [address] Dr. Emilie Stack CORRECTED WBC Normal 4.0-11.0 [facility] Comment on above: Performed By: #### C MP, BNP, YESI #### [facility] [address] [place] [address] Dr. Emilie Stack EOS # 0.00 103/ul Normal 0.00-0.70 [facility] Comment on above: Performed By: #### C MP, BNP, YESI #### [facility] [address] [place] [address] Dr. Emilie Stack EOS% 0.0 % Critically low 0.9-7.0 [facility] Comment on above: Performed By: #### C MP, BNP, YESI #### [facility] [address] [place] [address] Dr. Emilie Stack HCT 41.2 % Critically low 42.0-54.0 [facility] Comment on above: Performed By: #### C MP, BNP, YESI #### [facility] [address] [place] [address] Dr. Emilie Stack HGB 13.7 g/dl Critically low 14.0-18.0 [facility] Comment on above: Performed By: #### C MP, BNP, YESI #### [facility] [address] [place] [address] Dr. Emilie Stack LYMPHM # 0.42 103/ul Critically low 1.20-3.80 [facility] Comment on above: Performed By: #### C MP, BNP, YESI #### [facility] [address] [place] [address] Dr. Emilie Stack LYMPHM% 5.0 % Critically low 20.5-60.0 [facility] Comment on above: Performed By: #### C MP, BNP, YESI #### [facility] [address] [place] [address] Dr. Emilie Stack MCH 30.2 pg Normal 25.9-34.0 [facility] Comment on above: Performed By: #### C MP, BNP, YESI #### [facility] [address] [place] [address] Dr. Emilie Stack MCHC 33.3 g/dl Normal 29.9-35.2 [facility] Comment on above: Performed By: #### C MP, BNP, YESI #### [facility] [address] [place] [address] Dr. Emilie Stack MCV 90.7 fL Normal 80.0-94.0 [facility] Comment on above: Performed By: #### C MP, BNP, YESI #### [facility] [address] [place] [address] Dr. Emilie Stack METAMYELOCYTE # Normal [facility] Comment on above: Performed By: #### C MP, BNP, YESI #### [facility] [address] [place] [address] Dr. Emilie Stack METAMYELOCYTE % Normal [facility] Comment on above: Performed By: #### C MP, BNP, YESI #### [facility] [address] [place] [address] Dr. Emilie Stack MONOM# 0.00 103/ul Critically low 0.30-0.80 [facility] Comment on above: Performed By: #### C MP, BNP, YESI #### [facility] [address] [place] [address] Dr. Emilie Stack MONOM% 0.0 % Critically low 1.7-12.0 [facility] Comment on above: Performed By: #### C MP, BNP, YESI #### [facility] [address] [place] [address] Dr. Emilie Stack MPV 8.7 fL Critically low 9.5-13.5 [facility] Comment on above: Performed By: #### C MP, BNP, YESI #### [facility] [address] [place] [address] Dr. Emilie Stack MYELOCYTE # Normal [facility] Comment on above: Performed By: #### C MP, BNP, YESI #### [facility] [address] [address] [address] Emilie Stack MYELOCYTE % Normal [facility] Comment on above: Performed By: #### C MP, BNP, YESI #### [facility] [address] [place] [address] Dr. Emilie Stack NRBC Normal [facility] Comment on above: Performed By: #### C MP, BNP, YESI #### [facility] [address] [place] [address] Dr. Emilie Stack PLT 286 103/ul Normal 150-450 [facility] Comment on above: Performed By: #### C MP, BNP, YESI #### [facility] [address] [place] [address] Dr. Emilie Stack RBC 4.54 106/ul Critically low 4.70-6.10 [facility] Comment on above: Performed By: #### C MP, BNP, YESI #### [facility] [address] [place] [address] Dr. Emilie Stack RDW 13.7 % Normal 11.0-15.0 [facility] Comment on above: Performed By: #### C MP, BNP, YESI #### [facility] [address] [place] [address] Dr. Emilie Stack SEG # 7.98 103/ul Critically high 1.40-6.50 [facility] Comment on above: Performed By: #### C MP, BNP, YESI #### [facility] [address] [place] [address] Dr. Emilie Stack SEG % 95.0 % Critically high 43.0-75.0 [facility] Comment on above: Performed By: #### C MP, BNP, YESI #### [facility] [address] [address] [address] Emilie Stack WBC 8.4 103/ul Normal 4.0-11.0 [facility] Comment on above: Performed By: #### C MP, BNP, YESI #### [facility] [address] [place] [address] Dr. Emilie Stack PROF 14(COMP METB)on 022 Albumin [Mass/Vol] 3.5 g/dL Normal 3.4-5.0 [facility] Comment on above: Performed By: #### C MP, BNP, YESI #### [facility] [address] [place] [address] Dr. Emilie Stack Albumin/Globulin [Mass ratio] 1.0 {ratio} Normal [facility] Comment on above: Performed By: #### C MP, BNP, YESI #### [facility] [address] [place] [address] Dr. Emilie Stack ALP [Catalytic activity/Vol] 137 U/L Critically high 46-116 [facility] Comment on above: Performed By: #### C MP, BNP, YESI #### [facility] [address] [place] [address] Dr. Emilie Stack ALT [Catalytic activity/Vol] 22 U/L Normal 16-63 [facility] Comment on above: Performed By: #### C MP, BNP, YESI #### [facility] [address] [place] [address] Dr. Emilie Stack Anion gap [Moles/Vol] 15.3 mmol/L Normal [facility] Comment on above: Performed By: #### C MP, BNP, YESI #### [facility] [address] [place] [address] Dr. Emilie Stack AST [Catalytic activity/Vol] 13 U/L Critically low 15-37 [facility] Comment on above: Performed By: #### C MP, BNP, YESI #### [facility] [address] [place] [address] Dr. Emilie Stack Bilirubin [Mass/Vol] 0.1 mg/dL Critically low 0.2-1.0 [facility] Comment on above: Performed By: #### C MP, BNP, YESI #### [facility] [address] [place] [address] Dr. Emilie Stack Calcium [Mass/Vol] 9.2 mg/dL Normal 8.5-10.1 [facility] Comment on above: Performed By: #### C MP, BNP, YESI #### [facility] [address] [place] [address] Dr. Emilie Stack Chloride [Moles/Vol] 101 mmol/L Normal 98-107 [facility] Comment on above: Performed By: #### C MP, BNP, YESI #### [facility] [address] [place] [address] Dr. Emilie Stack CO2 [Moles/Vol] 21.4 mmol/L Normal 21.0-32.0 [facility] Comment on above: Performed By: #### C MP, BNP, YESI #### [facility] [address] [place] [address] Dr. Emilie Stack Creatinine [Mass/Vol] 1.26 mg/dL Normal 0.70-1.30 [facility] Comment on above: Performed By: #### C MP, BNP, YESI #### [facility] [address] [place] [address] Dr. Emilie Stack EGFR-AF KYRGYZ >60 Normal >=60 [facility] Comment on above: Performed By: #### C MP, BNP, YESI #### [facility] [address] [place] [address] Dr. Emilie Stack EGFR-NON AF KYRGYZ 56 mL/min/1.73m2 Critically low >=60 [facility] Comment on above: Performed By: #### C MP, BNP, YESI #### [facility] [address] [place] [address] Dr. Emilie Stack Globulin (S) [Mass/Vol] 3.5 g/dL Normal [facility] Comment on above: Performed By: #### C MP, BNP, YESI #### [facility] [address] [address] [address] Emilie Stack Glucose [Mass/Vol] 159 mg/dL Critically high 74-106 [facility] Comment on above: Performed By: #### C MP, BNP, YESI #### [facility] [address] [address] [address] Emilie Stack Potassium [Moles/Vol] 3.7 mmol/L Normal 3.5-5.1 [facility] Comment on above: Performed By: #### C MP, BNP, YESI #### [facility] [address] [address] [address] Emilie Stack Protein [Mass/Vol] 7.0 g/dL Normal 6.4-8.2 [facility] Comment on above: Performed By: #### C MP, BNP, YESI #### [facility] [address] [address] [address] Emilie Stack Sodium [Moles/Vol] 134 mmol/L Critically low 136-145 [facility] Comment on above: Performed By: #### C MP, BNP, YESI #### [facility] [address] [address] [address] Emilie Stack Urea nitrogen [Mass/Vol] 23.0 mg/dL Critically high 7.0-18.0 [facility] Comment on above: Performed By: #### C MP, BNP, YESI #### [facility] [address] [address] [address] Emilie Stack Urea nitrogen/Creatinine [Mass ratio] 18.3 mg/mg Normal [facility] Comment on above: Performed By: #### C MP, BNP, YESI #### [facility] [address] [address] [address] Emilie Stack T3, TOTAL (TRIIODOTHYRONINE) on 06-16-2022 T3, TOTAL 128 ng/dL Normal 71-180 [facility] Comment on above: Performed By: #### T ROSSY, CMP, BNP #### [facility] [address] [address] [address] Emilie Stack THEOPHYLLINEon 06-16-2022 THEOPHYLLINE 5.9 ug/mL Critically low 10.0-20.0 [facility] Comment on above: Performed By: #### T ROSSY, BNP, CMP #### [facility] [address] [place] [address] Dr. Emilie Stack BNPon 06-15-2022 Natriuretic peptide B (Bld) [Mass/Vol] 30.0 pg/mL Normal <=900.0 [facility] Comment on above: Performed By: #### C MP, BNP, YESI #### [facility] [address] [place] [address] Dr. Emilie Stack CARDIAC GATITO 3-6on 2 CK [Catalytic activity/Vol] 110 U/L Normal 39-308 [facility] Comment on above: Performed By: #### C MP, BNP, YESI #### [facility] [address] [place] [address] Dr. Emilie Stack CK.MB [Mass/Vol] 1.64 ng/mL Normal <=3.60 [facility] Comment on above: Performed By: #### C MP, BNP, YESI #### [facility] [address] [place] [address] Dr. Emilie Stack HSTROP 6.1 pg/mL Normal 4.0-76.1 [facility] Comment on above: Result Comment: CUT- OFF POINTS HAVE BEEN ESTABLISHED BASED ON THE FOURTH UNIVERSAL DEFINITIONS OF MYOCARDIAL INFARCTION. THE UPPER REFERENCE LIMIT (URL) OF TROPONIN, DEFINED THE 99TH PERCENTILE OF cTnI DISTRIBUTION IN A REFERENCE POPULATION, HAS BEEN CONFIRMED THE DECISION THRESHOLD FOR MD DIAGNOSIS. Performed By: #### C MP, BNP, YESI #### [facility] [address] [place] [address] Dr. Emilie Stack Performed By: #### T ROSSY, CMP, BNP #### [facility] [address] [place] [address] Dr. Emilie Stack CK [Catalytic activity/Vol] 125 U/L Normal 39-308 [facility] Comment on above: Performed By: #### T ROSSY, CMP, BNP #### [facility] [address] [place] [address] Dr. Emilie Stack CK.MB [Mass/Vol] 1.83 ng/mL Normal <=3.60 [facility] Comment on above: Performed By: #### T ROSSY, CMP, BNP #### [facility] [address] [place] [address] Dr. Eimlie Stack CARDIAC GATITO ADMITon 022 CK [Catalytic activity/Vol] 129 U/L Normal 39-308 [facility] Comment on above: Performed By: #### C MP, BNP, YSEI #### [facility] [address] [place] [address] Dr. Emilie Stack CK.MB [Mass/Vol] 1.68 ng/mL Normal <=3.60 [facility] Comment on above: Performed By: #### C MP, BNP, YSEI #### [facility] [address] [place] [address] Dr. Emilie Stack HSTROP 6.6 pg/mL Normal 4.0-76.1 [facility] Comment on above: Result Comment: CUT- OFF POINTS HAVE BEEN ESTABLISHED BASED ON THE FOURTH UNIVERSAL DEFINITIONS OF MYOCARDIAL INFARCTION. THE UPPER REFERENCE LIMIT (URL) OF TROPONIN, DEFINED THE 99TH PERCENTILE OF cTnI DISTRIBUTION IN A REFERENCE POPULATION, HAS BEEN CONFIRMED THE DECISION THRESHOLD FOR MD DIAGNOSIS. Performed By: #### C MP, BNP, YESI #### [facility] [address] [place] [address] Dr. Emilie Stack BELEN 85 ng/mL Normal 16-96 [facility] Comment on above: Performed By: #### C MP, BNP, YESI #### [facility] [address] [place] [address] Dr. Emilie Stack CBC AUTO DIFFon 06-15-2022 BASO # 0.1 103/ul Normal 0.0-0.1 [facility] Comment on above: Performed By: #### C MP, BNP, YESI #### [facility] [address] [place] [address] Dr. Emilie Stack Basophils/100 WBC (Bld) 0.8 % Normal 0.2-2.0 [facility] Comment on above: Performed By: #### C MP, BNP, YESI #### [facility] [address] [place] [address] Dr. Emilie Stack EO # 0.2 103/ul Normal 0.0-0.7 [facility] Comment on above: Performed By: #### C MP, BNP, YESI #### [facility] [address] [place] [address] Dr. Emilie Stack Eosinophils/100 WBC (Bld) 4.1 % Normal 0.9-7.0 [facility] Comment on above: Performed By: #### C MP, BNP, YESI #### [facility] [address] [place] [address] Dr. Emilie Stack Erythrocyte distribution width (RBC) [Ratio] 13.8 % Normal 11.0-15.0 [facility] Comment on above: Performed By: #### C MP, BNP, YESI #### [facility] [address] [place] [address] Dr. Emilie Stack Hematocrit (Bld) [Volume fraction] 45.8 % Normal 42.0-54.0 [facility] Comment on above: Performed By: #### C MP, BNP, YESI #### [facility] [address] [place] [address] Dr. Emilie Stack Hemoglobin (Bld) [Mass/Vol] 15.1 g/dL Normal 14.0-18.0 [facility] Comment on above: Performed By: #### C MP, BNP, YESI #### [facility] [address] [place] [address] Dr. Emilie Stack IG # 0.02 10e3/ul Normal 0.00-0.03 [facility] Comment on above: Performed By: #### C MP, BNP, YESI #### [facility] [address] [place] [address] Dr. Emilie Stack IG % 0.3 % Normal 0.0-0.5 [facility] Comment on above: Performed By: #### C MP, BNP, YESI #### [facility] [address] [place] [address] Dr. Emilie Stack LYMPH # 1.5 103/ul Normal 1.2-3.8 [facility] Comment on above: Performed By: #### C MP, BNP, YESI #### [facility] [address] [place] [address] Dr. Emilie Stack Lymphocytes/100 WBC (Bld) 25.3 % Normal 20.5-60.0 [facility] Comment on above: Performed By: #### C MP, BNP, YESI #### [facility] [address] [place] [address] Dr. Emilie Stack MANUAL DIFF REQ NO Normal [facility] Comment on above: Performed By: #### C MP, BNP, YESI #### [facility] [address] [place] [address] Dr. Emilie Stack MCH (RBC) [Entitic mass] 29.9 pg Normal 25.9-34.0 [facility] Comment on above: Performed By: #### C MP, BNP, YESI #### [facility] [address] [place] [address] Dr. Emilie Stack MCHC (RBC) [Mass/Vol] 33.0 g/dL Normal 29.9-35.2 [facility] Comment on above: Performed By: #### C MP, BNP, YESI #### [facility] [address] [place] [address] Dr. Emilie Stack MCV (RBC) [Entitic vol] 90.7 fL Normal 80.0-94.0 [facility] Comment on above: Performed By: #### C MP, BNP, YESI #### [facility] [address] [place] [address] Dr. Emilie Stack MONO # 0.6 103/ul Normal 0.3-0.8 [facility] Comment on above: Performed By: #### C MP, BNP, YESI #### [facility] [address] [place] [address] Dr. Emilie Stack Monocytes/100 WBC (Bld) 10.3 % Normal 1.7-12.0 [facility] Comment on above: Performed By: #### C MP, BNP, YESI #### [facility] [address] [place] [address] Dr. Emilie Stack NEUT # 3.5 103/ul Normal 1.4-6.5 [facility] Comment on above: Performed By: #### C MP, BNP, YESI #### [facility] [address] [place] [address] Dr. Emilie Stack Neutrophils/100 WBC (Bld) 59.2 % Normal 43.0-75.0 [facility] Comment on above: Performed By: #### C MP, BNP, YESI #### [facility] [address] [place] [address] Dr. Emilie Stack Platelet mean volume (Bld) [Entitic vol] 8.7 fL Critically low 9.5-13.5 [facility] Comment on above: Performed By: #### C MP, BNP, YESI #### [facility] [address] [place] [address] Dr. Emilie Stack PLT 320 103/ul Normal 150-450 [facility] Comment on above: Performed By: #### C MP, BNP, YESI #### [facility] [address] [place] [address] Dr. Emilie Stack RBC 5.05 106/ul Normal 4.70-6.10 [facility] Comment on above: Performed By: #### C MP, BNP, YESI #### [facility] [address] [place] [address] Dr. Emilie Stack WBC 5.9 103/ul Normal 4.0-11.0 [facility] Comment on above: Performed By: #### C MP, BNP, YESI #### [facility] [address] [place] [address] Dr. Emilie Stack CULTURE BLOODon 06-15-2022 Microscopic examination of blood, culture Culture Observations: NO GROWTH AT 5 DAYS. Normal [facility] Comment on above: Performed By: #### T ROSSY, CMP, BNP #### [facility] [address] [place] [address] Dr. Emilie Stack Microscopic examination of blood, culture Culture Observations: NO GROWTH AT 5 DAYS. Normal [facility] Comment on above: Performed By: #### T JEANETTE BLAIR, BNP #### [facility] [address] [address] [address] Emilie Stack CULTURE SPUTUMon 06-15-2022 CULTURE SPUTUM Culture Observations : Moraxella Catarrhalis is Beta Lactmase Positive Culture Observations: Normal respiratory tano also seen Isolate 1 Moraxella (Branhamella) catarrhalis Heavy growth of Normal [facility] Comment on above: Performed By: #### T JEANETTE BLAIR, BNP #### [facility] [address] [address] [address] Emilie Stack Covid-19 PCR ([facility])on 05-27 SARS-CoV-2 (COVID-19) RNA [place]+probe Ql (Unsp spec) Not detected Normal NOT DETECTED [facility] Comment on above: Result Comment: When [...] for this test is supported by the [place] of Health and Human Service's declaration that [...] longer be used). Performed By: #### T JEANETTE BLAIR, BNP #### [facility] [address] [place] [address] Dr. Emilie Stack PROF 14(COMP METB)on 022 Albumin [Mass/Vol] 3.7 g/dL Normal 3.4-5.0 [facility] Comment on above: Performed By: #### C MP, BNP, YESI #### [facility] [address] [address] [address] Emilie Stack Albumin/Globulin [Mass ratio] 1.0 {ratio} Normal [facility] Comment on above: Performed By: #### C MP, BNP, YESI #### [facility] [address] [address] [address] Emilie Stack ALP [Catalytic activity/Vol] 154 U/L Critically high 46-116 [facility] Comment on above: Performed By: #### C MP, BNP, YESI #### [facility] [address] [address] [address] Emilie Stack ALT [Catalytic activity/Vol] 24 U/L Normal 16-63 [facility] Comment on above: Performed By: #### C MP, BNP, YESI #### [facility] [address] [address] [address] Emilie Stakc Anion gap [Moles/Vol] 13.0 mmol/L Normal [facility] Comment on above: Performed By: #### C MP, BNP, YESI #### [facility] [address] [address] [address] Emilie Stack AST [Catalytic activity/Vol] 17 U/L Normal 15-37 [facility] Comment on above: Performed By: #### C MP, BNP, YESI #### [facility] [address] [address] [address] Emilie Stack Bilirubin [Mass/Vol] 0.3 mg/dL Normal 0.2-1.0 [facility] Comment on above: Performed By: #### C MP, BNP, YESI #### [facility] [address] [address] [address] Emilie Stack Calcium [Mass/Vol] 8.6 mg/dL Normal 8.5-10.1 [facility] Comment on above: Performed By: #### C MP, BNP, YESI #### [facility] [address] [address] [address] Emilie Stack Chloride [Moles/Vol] 104 mmol/L Normal 98-107 [facility] Comment on above: Performed By: #### C MP, BNP, YESI #### [facility] [address] [place] [address] Dr. Emilie Stack CO2 [Moles/Vol] 24.9 mmol/L Normal 21.0-32.0 [facility] Comment on above: Performed By: #### C MP, BNP, YESI #### [facility] [address] [place] [address] Dr. Emilie Stack Creatinine [Mass/Vol] 1.10 mg/dL Normal 0.70-1.30 [facility] Comment on above: Performed By: #### C MP, BNP, YESI #### [facility] [address] [place] [address] Dr. Emilie Stack EGFR-AF KYRGYZ >60 Normal >=60 [facility] Comment on above: Performed By: #### C MP, BNP, YESI #### [facility] [address] [place] [address] Dr. Emilie Stack EGFR-NON AF KYRGYZ >60 Normal >=60 [facility] Comment on above: Performed By: #### C MP, BNP, YESI #### [facility] [address] [place] [address] Dr. Emilie Stack Globulin (S) [Mass/Vol] 3.6 g/dL Normal [facility] Comment on above: Performed By: #### C MP, BNP, YESI #### [facility] [address] [place] [address] Dr. Emilie Stack Glucose [Mass/Vol] 107 mg/dL Critically high 74-106 [facility] Comment on above: Performed By: #### C MP, BNP, YESI #### [facility] [address] [place] [address] Dr. Emilie Stack Potassium [Moles/Vol] 3.9 mmol/L Normal 3.5-5.1 [facility] Comment on above: Performed By: #### C MP, BNP, YESI #### [facility] [address] [place] [address] Dr. Emilie Stack Protein [Mass/Vol] 7.3 g/dL Normal 6.4-8.2 [facility] Comment on above: Performed By: #### C MP, BNP, YESI #### [facility] [address] [address] [address] Emilie Stack Sodium [Moles/Vol] 138 mmol/L Normal 136-145 [facility] Comment on above: Performed By: #### C MP, BNP, YESI #### [facility] [address] [address] [address] Emilie Stack Urea nitrogen [Mass/Vol] 18.0 mg/dL Normal 7.0-18.0 [facility] Comment on above: Performed By: #### C MP, BNP, YESI #### [facility] [address] [address] [address] Emilie Stack Urea nitrogen/Creatinine [Mass ratio] 16.4 mg/mg Normal [facility] Comment on above: Performed By: #### C MP, BNP, YESI #### [facility] [address] [address] [address] Emilie Stack SPUTUM GRAM STAINon 06-15-20 COMMENTS Normal [facility] Comment on above: Performed By: #### T ROSSY CMP, BNP #### [facility] [address] [address] [address] Emilie Stack DIPHTHEROIDS Normal [facility] Comment on above: Performed By: #### T ROSSY CMP, BNP #### [facility] [address] [address] [address] Emilie Stack EPITHELIALS <25 Normal [facility] Comment on above: Performed By: #### T ROSSY, CMP, BNP #### [facility] [address] [address] [address] Emilie Stack FUNGAL ELEMENTS Normal [facility] Comment on above: Performed By: #### T ROSSY, CMP, BNP #### [facility] [address] [address] [address] Emilie Stack GRAM NEG BACILLI Normal [facility] Comment on above: Performed By: #### T ROSSY, CMP, BNP #### [facility] [address] [address] [address] Emilie Stack GRAM NEG DIPPLOCOCCI MANY Normal [facility] Comment on above: Performed By: #### T ROSSY CMP, BNP #### [facility] [address] [address] [address] Emilie Stack GRAM POS BACILLI Normal [facility] Comment on above: Performed By: #### T ROSSY CMP, BNP #### [facility] [address] [address] [address] Emilie Stack GRAM POSITIVE COCCI FEW Normal [facility] Comment on above: Performed By: #### T ROSSY CMP, BNP #### [facility] [address] [address] [address] Emilie Stack WBC (Bld) [#/Vol] 10*3/uL Normal [facility] Comment on above: Performed By: #### Patience BLAIR CMP, BNP #### [facility] [address] [address] [address] Emilie Stack T4on 06-15-2022 T4 [Mass/Vol] 8.10 ug/dL Normal 4.50-12.10 [facility] Comment on above: Performed By: #### C MP, BNP, YESI #### [facility] [address] [address] [address] Emilie Stack TSHon 06-15-2022 TSH 1.611 uIU/mL Normal 0.358-3.740 [facility] Comment on above: Performed By: #### C MP, BNP, YESI #### [facility] [address] [address] [address] Emilie Stack UA RANDOM W/MICROSCOPICon BACTERIA NONE SEEN Normal NONE SEEN [facility] Comment on above: Performed By: #### T ROSSY, CMP, BNP #### [facility] [address] [place] [address] Dr. Emilie Stack Bilirubin Ql (U) Negative Normal NEGATIVE [facility] Comment on above: Performed By: #### T ROSSY, CMP, BNP #### [facility] [address] [address] [address] Emilie Stack CAST NONE SEEN Normal NONE SEEN [facility] Comment on above: Performed By: #### T ROSSY, CMP, BNP #### [facility] [address] [address] [address] Emilie Stack Clarity (U) CLEAR Normal CLEAR [facility] Comment on above: Performed By: #### T ROSSY, CMP, BNP #### [facility] [address] [address] [address] Emilie Stack Color (U) LT. YELLOW Normal YELLOW [facility] Comment on above: Performed By: #### T ROSSY, CMP, BNP #### [facility] [address] [place] [address] Dr. Emilie Stack Crystals LM Nom (Urine sed) NONE SEEN Normal NONE SEEN [facility] Comment on above: Performed By: #### T ROSSY CMP, BNP #### [facility] [address] [place] [address] Dr. Emilie Stack Epithelial cells LM Ql (Urine sed) RARE Normal NONE SEEN /RARE [facility] Comment on above: Performed By: #### T ROSSY CMP, BNP #### [facility] [address] [place] [address] Dr. Emilie Stack Glucose Ql (U) Negative Normal NEGATIVE [facility] Comment on above: Performed By: #### T ROSSY CMP, BNP #### [facility] [address] [address] [address] Emilie Stack Hemoglobin Ql (U) TRACE-INTACT Abnormal NEGATIVE [facility] Comment on above: Performed By: #### T ROSSY, CMP, BNP #### [facility] [address] [place] [address] Dr. Emilie Stack Ketones Ql (U) Negative Normal NEGATIVE [facility] Comment on above: Performed By: #### T ROSSY CMP, BNP #### [facility] [address] [place] [address] Dr. Emilie Stack LEUKOCYTES Negative Normal NEGATIVE [facility] Comment on above: Performed By: #### T ROSSY, CMP, BNP #### [facility] [address] [address] [address] Emilie Stack MUCOUS SMALL Abnormal NONE SEEN [facility] Comment on above: Performed By: #### T ROSSY, CMP, BNP #### [facility] [address] [address] [address] Emilie Stack Nitrite Ql (U) Negative Normal NEGATIVE [facility] Comment on above: Performed By: #### T ROSSY, CMP, BNP #### [facility] [address] [address] [address] Emilie Stack pH (U) 5.5 [pH] Normal 5-9 [facility] Comment on above: Performed By: #### T ROSSY, CMP, BNP #### [facility] [address] [place] [address] Dr. Emilie Stack RBC NONE SEEN Abnormal 0-2 [facility] Comment on above: Performed By: #### T ROSSY, CMP, BNP #### [facility] [address] [address] [address] Emilie Stack SPEC GRAVITY 1.025 Normal 1.005-<=1.025 [facility] Comment on above: Performed By: #### T ROSSY, CMP, BNP #### [facility] [address] [place] [address] Dr. Emilie Stack UA PROTEIN Negative Normal NEGATIVE/ TRACE [facility] Comment on above: Performed By: #### T ROSSY, CMP, BNP #### [facility] [address] [place] [address] Dr. Emilie Stack Urobilinogen Qn (U) 0.2 {Jose Guadalupe'U}/dL Normal 0.2 - 1. 0 [facility] Comment on above: Performed By: #### T ROSSY, CMP, BNP #### [facility] [address] [place] [address] Dr. Emilie Stack WBC NONE SEEN Normal NONE SEEN [facility] Comment on above: Performed By: #### T ROSSY, CMP, BNP #### [facility] [address] [address] [address] Emilie Stack XR CHEST 2 Von [...] CORRINE ROMEO Date: 2022-06-15 13:36 Normal [facility] US Abdomen RUQon 10-21-2021 IMPRESSION: No [...] gallstones No free fluid Small right kidney. Compound Time Radiology Study [facility] (narrative) [facility] Abdomen RUQOrdered By: Matt Francisco on 10-21-2021 [facility] Work Phone: XR Chest PA [...] with slight convexity to the right. RADIOLOGY aRfal Salter MD - 09/29/2021 EXAM: XR CHEST [...] COPD. No acute infiltrate or consolidation seen. [facility] Radiology Study observation (narrative) [facility] XR Chest PA and LateralOrder ed By: Rafal Salter on 09-29-2021 [facility] Work Phone: C REACTIVE PROTEINon 022 CRP [Mass/Vol] 42.1 mg/L High 0 - 10.0 MG/L [facility] CBC, EDIF, PLATELETon 2021 ABSOLUTE BASOPHIL COUNT 0.0 10*3/uL 0.0 - 0.2 10*3/uL [facility] Basophils/100 WBC (Bld) 0.2 % 0.0 - 2.0 % [facility] Differential cell count method Nom (Bld) AUTO DIFF % [facility] Eosinophils (Bld) [#/Vol] 0.00 10*3/uL 0.0 - 0.7 10*3/uL [facility] Eosinophils/100 WBC (Bld) 0.1 % 0.0 - 11.0 % [facility] Erythrocyte distribution width (RBC) [Ratio] 13.5 % 11.5 - 14.5 % [facility] Hematocrit (Bld) [Volume fraction] 41.0 % Low 42.0 - 52.0 % [facility] Hemoglobin (Bld) [Mass/Vol] 14.3 g/dL [facility] Interpretation and review of laboratory results Abnormal [facility] Lymphocytes (Bld) [#/Vol] 0.40 10*3/uL Low 1.2 - 3.4 10*3/uL [facility] Lymphocytes/100 WBC (Bld) 16.0 % Low 20.0 - 55.0 % [facility] MCH (RBC) [Entitic mass] 32.1 pg 26.0 - 35.0 PG [facility] MCHC (RBC) [Mass/Vol] 34.8 g/dL [facility] MCV (RBC) [Entitic vol] 92.1 fL [facility] Monocytes (Bld) [#/Vol] 0.1 10*3/uL 0.0 - 0.7 10*3/uL [facility] Monocytes/100 WBC (Bld) 4.4 % 0.0 - 10.0 % [facility] Neutrophils (Bld) [#/Vol] 2.2 10*3/uL 1.4 - 6.5 10*3/uL [facility] Neutrophils/100 WBC (Bld) 79.3 % High 37.0 - 75.0 % [facility] Platelet mean volume (Bld) [Entitic vol] 8.8 fL [facility] Platelets (Bld) [#/Vol] 230 10*3/uL 130.0 - 400.0 10*3/uL [facility] RBC (Bld) [#/Vol] 4.45 10*6/uL 4.0 - 6.1 10*6/uL [facility] WBC (Bld) [#/Vol] 2.8 10*3/uL Low 3.6 - 11.0 10*3/uL [facility] HEPATIC FUNCTION PANELon Albumin [Mass/Vol] 3.0 g/dL Low [facility] ALP [Catalytic activity/Vol] 78 U/L [facility] ALT [Catalytic activity/Vol] 26 U/L [facility] AST [Catalytic activity/Vol] 25 U/L [facility] Bilirubin [Mass/Vol] 0.7 mg/dL [facility] Bilirubin.direct [Mass/Vol] 0.1 mg/dL [facility] Protein [Mass/Vol] 6.7 g/dL [facility] MAGNESIUMon 08-02-2021 Magnesium [Mass/Vol] 2.2 mg/dL [facility] No Panel Informationon 08-02 Interpretation and review of laboratory results Abnormal [facility] PROTIME-INRon 08-02-2021 INR Coag (PPP) [Relative time] 1.24 {INR} High [facility] Comment on above: 2.0-3.0 THERAPEUTIC RANGE 2.5-3.5 MECHANICAL VALVE RANGE Interpretation and review of laboratory results Abnormal [facility] PT Coag (PPP) [Time] 15.7 s High [facility] RENAL FUNCTION PANELon 08-02 Albumin [Mass/Vol] 3.0 G/dl Low 3.5 - 5.0 G/dl [facility] Calcium [Mass/Vol] 8.5 mg/dL [facility] Chloride [Moles/Vol] 104 mmol/L [facility] CO2 [Moles/Vol] 20 mmol/L Low [facility] Creatinine [Mass/Vol] 0.76 mg/dL [facility] GFR COMMENT Average GFR for 70+ years old = 75. [facility] Comment on above: Chronic Kidney disea se, GFR = <60. Kidney failure, GFR = <15. The GFR estimate is not adjusted for extreme body surface area or acute process, nor has it been validated for women or ethnic groups other than and . GFR/1.73 sq M.predicted among blacks MDRD (S/P/Bld) [Vol rate/Area] 130 mL/min/{1.73_m2} ml/min/1.73sq .m [facility] GFR/1.73 sq M.predicted among non-blacks MDRD (S/P/Bld) [Vol rate/Area] 108 mL/min/{1.73_m2} ml/min/1.73sq .m [facility] Glucose post fast [Mass/Vol] 138 mg/dL High [facility] Comment on above: NORMAL <100 mg/dL PREDIABETES 101-126 mg/dL DIABETES 126 mg/dL or higher Interpretation and review of laboratory results Abnormal [facility] Phosphate [Mass/Vol] 2.6 mg/dL [facility] Potassium [Moles/Vol] 3.9 mmol/L [facility] Sodium [Moles/Vol] 136 mmol/L [facility] Urea nitrogen [Mass/Vol] 12 mg/dL [facility] SEDIMENTATION RATE, AUTOMATE Don 08-02-2021 ESR (Bld) [Velocity] 31 mm/h High [facility] Interpretation and review of laboratory results Abnormal [facility] C REACTIVE PROTEINon 022 CRP [Mass/Vol] 55.8 mg/L High 0 - 10.0 MG/L [facility] CBC, EDIF, PLATELETon 2021 Differential cell count method Nom (Bld) MANUAL DIFF % [facility] Erythrocyte distribution width (RBC) [Ratio] 13.4 % 11.5 - 14.5 % [facility] Hematocrit (Bld) [Volume fraction] 37.8 % Low 42.0 - 52.0 % [facility] Hemoglobin (Bld) [Mass/Vol] 13.2 g/dL Low [facility] Immature granulocytes/100 WBC (Bld) 1 % 0.0 - 2.0 % [facility] Interpretation and review of laboratory results Abnormal [facility] Lymphocytes/100 WBC (Bld) 25 % 20.0 - 55.0 % [facility] MCH (RBC) [Entitic mass] 31.9 pg 26.0 - 35.0 PG [facility] MCHC (RBC) [Mass/Vol] 34.9 g/dL [facility] MCV (RBC) [Entitic vol] 91.6 fL [facility] Monocytes/100 WBC (Bld) 28 % High 0.0 - 10.0 % [facility] Morphology Elvin (Bld) [Interp] NORMAL [facility] Neutrophils/100 WBC (Bld) 46 % 37.0 - 75.0 % [facility] Platelet mean volume (Bld) [Entitic vol] 8.5 fL [facility] Platelet morphology finding Nom (Bld) ADEQUATE [facility] Platelets (Bld) [#/Vol] 189 10*3/uL 130.0 - 400.0 10*3/uL [facility] RBC (Bld) [#/Vol] 4.12 10*6/uL 4.0 - 6.1 10*6/uL [facility] WBC (Bld) [#/Vol] 3.2 10*3/uL Low 3.6 - 11.0 10*3/uL [facility] WBC MORPHOLOGY STATUS VACUOLES [facility] HEPATIC FUNCTION PANELon Albumin [Mass/Vol] 2.7 g/dL Low [facility] ALP [Catalytic activity/Vol] 73 U/L [facility] ALT [Catalytic activity/Vol] 22 U/L [facility] AST [Catalytic activity/Vol] 24 U/L [facility] Bilirubin [Mass/Vol] 0.5 mg/dL [facility] Bilirubin.direct [Mass/Vol] 0.1 mg/dL [facility] Protein [Mass/Vol] 5.9 g/dL Low [facility] LEGIONELLA URINARY AGon L. pneumophila 1 Ag IA Ql (U) Negative NEGATIVE [facility] MAGNESIUMon 08-01-2021 Magnesium [Mass/Vol] 1.8 mg/dL [facility] No Panel Informationon 08-01 [facility] Interpretation and review of laboratory results Abnormal [facility] PROTIME-INRon 08-01-2021 INR Coag (PPP) [Relative time] 1.40 {INR} [facility] Comment on above: 2.0-3.0 THERAPEUTIC RANGE 2.5-3.5 MECHANICAL VALVE RANGE Interpretation and review of laboratory results Abnormal [facility] PT Coag (PPP) [Time] 17.[address] [facility] RENAL FUNCTION PANELon 08-01 Albumin [Mass/Vol] 2.7 G/dl Low 3.5 - 5.0 G/dl [facility] Calcium [Mass/Vol] 8.0 mg/dL Low [facility] Chloride [Moles/Vol] 105 mmol/L [facility] CO2 [Moles/Vol] 22 mmol/L [facility] Creatinine [Mass/Vol] 0.96 mg/dL [facility] GFR COMMENT Average GFR for 70+ years old = 75. [facility] Comment on above: Chronic Kidney disea se, GFR = <60. Kidney failure, GFR = <15. The GFR estimate is not adjusted for extreme body surface area or acute process, nor has it been validated for women or ethnic groups other than and . GFR/1.73 sq M.predicted among blacks MDRD (S/P/Bld) [Vol rate/Area] 100 mL/min/{1.73_m2} ml/min/1.73sq .m [facility] GFR/1.73 sq M.predicted among non-blacks MDRD (S/P/Bld) [Vol rate/Area] 82 mL/min/{1.73_m2} ml/min/1.73sq .m [facility] Glucose post fast [Mass/Vol] 104 mg/dL High [facility] Comment on above: NORMAL <100 mg/dL PREDIABETES 101-126 mg/dL DIABETES 126 mg/dL or higher Interpretation and review of laboratory results Abnormal [facility] Phosphate [Mass/Vol] 2.0 mg/dL Low [facility] Potassium [Moles/Vol] 3.5 mmol/L [facility] Sodium [Moles/Vol] 136 mmol/L [facility] Urea nitrogen [Mass/Vol] 12 mg/dL [facility] SEDIMENTATION RATE, AUTOMATE Don 08-01-2021 ESR (Bld) [Velocity] 21 mm/h High [facility] Interpretation and review of laboratory results Abnormal [facility] STREP PNEUMONIAE ANTIGEN, UR INEon 08-01-2021 S. pneumoniae Ag Ql (U) Negative NEGATIVE [facility] US DUPLEX EXTREMITY DVT BILA [...] the lower extremity veins on either side. [facility] C REACTIVE PROTEINon 022 CRP [Mass/Vol] 60.2 mg/L High 0 - 10.0 MG/L [facility] CBC, EDIF, PLATELETon 2021 ABSOLUTE BASOPHIL COUNT 0.0 10*3/uL 0.0 - 0.2 10*3/uL [facility] Basophils/100 WBC (Bld) 0.3 % 0.0 - 2.0 % [facility] Differential cell count method Nom (Bld) AUTO DIFF % [facility] Eosinophils (Bld) [#/Vol] 0.00 10*3/uL 0.0 - 0.7 10*3/uL [facility] Eosinophils/100 WBC (Bld) 0.2 % 0.0 - 11.0 % [facility] Erythrocyte distribution width (RBC) [Ratio] 13.2 % 11.5 - 14.5 % [facility] Hematocrit (Bld) [Volume fraction] 43.0 % 42.0 - 52.0 % [facility] Hemoglobin (Bld) [Mass/Vol] 14.9 g/dL [facility] Interpretation and review of laboratory results Abnormal [facility] Lymphocytes (Bld) [#/Vol] 0.50 10*3/uL Low 1.2 - 3.4 10*3/uL [facility] Lymphocytes/100 WBC (Bld) 11.2 % Low 20.0 - 55.0 % [facility] MCH (RBC) [Entitic mass] 31.5 pg 26.0 - 35.0 PG [facility] MCHC (RBC) [Mass/Vol] 34.7 g/dL [facility] MCV (RBC) [Entitic vol] 90.9 fL [facility] Monocytes (Bld) [#/Vol] 0.5 10*3/uL 0.0 - 0.7 10*3/uL [facility] Monocytes/100 WBC (Bld) 11.3 % High 0.0 - 10.0 % [facility] Neutrophils (Bld) [#/Vol] 3.7 10*3/uL 1.4 - 6.5 10*3/uL [facility] Neutrophils/100 WBC (Bld) 77.0 % High 37.0 - 75.0 % [facility] Platelet mean volume (Bld) [Entitic vol] 8.1 fL [facility] Platelets (Bld) [#/Vol] 188 10*3/uL 130.0 - 400.0 10*3/uL [facility] RBC (Bld) [#/Vol] 4.73 10*6/uL 4.0 - 6.1 10*6/uL [facility] WBC (Bld) [#/Vol] 4.8 10*3/uL 3.6 - 11.0 10*3/uL [facility] COMPREHENSIVE METABOLIC PANE Karri 07-31-2021 Albumin [Mass/Vol] 3.4 G/dl Low 3.5 - 5.0 G/dl [facility] Albumin/Globulin [Mass ratio] 0.9 {ratio} Low [facility] ALP [Catalytic activity/Vol] 96 U/L [facility] ALT [Catalytic activity/Vol] 28 U/L [facility] AST [Catalytic activity/Vol] 30 U/L [facility] Bilirubin [Mass/Vol] 0.6 mg/dL [facility] Calcium [Mass/Vol] 8.6 mg/dL [facility] Chloride [Moles/Vol] 99 mmol/L [facility] CO2 [Moles/Vol] 22 mmol/L [facility] Creatinine [Mass/Vol] 1.00 mg/dL [facility] GFR COMMENT Average GFR for 70+ years old = 75. [facility] Comment on above: Chronic Kidney disea se, GFR = <60. Kidney failure, GFR = <15. The GFR estimate is not adjusted for extreme body surface area or acute process, nor has it been validated for women or ethnic groups other than and . GFR/1.73 sq M.predicted among blacks MDRD (S/P/Bld) [Vol rate/Area] 95 mL/min/{1.73_m2} ml/min/1.73sq .m [facility] GFR/1.73 sq M.predicted among non-blacks MDRD (S/P/Bld) [Vol rate/Area] 79 mL/min/{1.73_m2} ml/min/1.73sq .m [facility] Glucose post fast [Mass/Vol] 103 mg/dL High [facility] Comment on above: NORMAL <100 mg/dL PREDIABETES 101-126 mg/dL DIABETES 126 mg/dL or higher Potassium [Moles/Vol] 3.4 mmol/L Low [facility] Protein [Mass/Vol] 7.4 g/dL [facility] Sodium [Moles/Vol] 135 mmol/L Low [facility] Urea nitrogen [Mass/Vol] 12 mg/dL [facility] CT PE STUDYon 07-31-2021 IMPRESSION: [...] the liver and left kidney, probably cysts. [facility] Radiology Study observation (narrative) [facility] CT PE STUDYOrdered By: Martin Rice on 07-31-2021 [facility] Work Phone: D-DIMER,QUANTITATIVEon 07-31 Fibrin D-dimer FEU (PPP) [Mass/Vol] 1.95 Critically high <0.50 mg/L FEU [facility] Comment on above: If result [...] Interpretation and review of laboratory results Abnormal [facility] ECG (SCANNED)Ordered By: Mirlande Doherty on 07-31-2021 [facility] INFLUENZA A AND B, PCRon FLUAV and FLUBV Ag IF Nom (Unsp spec) Negative NEGATIVE [facility] FLUBV Ag IA Ql (Unsp spec) Negative NEGATIVE [facility] Comment on above: TESTING PERFORMED BY [place] [facility] NOVEL CORONAVIRUS LAB 1 - NA SOPHARYNGEALon 07-31-2021 NARRATIVE -1 This test was performed using isothermal [place] and has been approved as Emergency Use Authorization (EUA) for the qualitative detection [id number] nucleic acid. [facility] SARS-CoV-2 (COVID-19) RNA [place]+probe Ql (Unsp spec) Not detected NOT DETECTED [facility] Comment on above: Negative results [...] patient is critically ill or clinically deteriorating. [facility] No Panel Informationon 07-31 Interpretation and review of laboratory results Abnormal [facility] PROTIME-INRon 07-31-2021 INR Coag (PPP) [Relative time] 1.17 {INR} High [facility] Comment on above: 2.0-3.0 THERAPEUTIC RANGE 2.5-3.5 MECHANICAL VALVE RANGE Interpretation and review of laboratory results Abnormal [facility] PT Coag (PPP) [Time] 15.[address] [facility] SCREEN: MRSA ONLY, NARES (IS OLATION SCREEN)on 07-31-2021 MRSA isol Org specific cx Ql (Nose) Not detected NOT DETECTED [facility] STAPHYOCOCCUS AUREUS BY PCR Not detected NOT DETECTED [facility] SEDIMENTATION RATE, AUTOMATE Don 07-31-2021 ESR (Bld) [Velocity] 44 mm/h [facility] Interpretation and review of laboratory results Abnormal [facility] TROPONIN I, HIGH SENSITIVITY on 07-31-2021 TROPONIN I, HIGH SENSITIVITY 16 pg/mL 0 - 20 pg/mL [facility] Comment on above: Indeterminant: >12 to 100 pg/mL female >20 to 100 pg/mL male Indicative of myocardial injury. Serial sampling is recommended, a change of greater than or equal to 20 pg/mL is indicative of acute coronary syndrome. [facility] TROPONIN I, HIGH SENSITIVITY 8 pg/mL 0 - 20 pg/mL [facility] Comment on above: Indeterminant: >12 to 100 pg/mL female >20 to 100 pg/mL male Indicative of myocardial injury. Serial sampling is recommended, a change of greater than or equal to 20 pg/mL is indicative of acute coronary syndrome. [facility] US DUPLEX EXTREMITY DVT BILA TERALon 07-31-2021 Radiology Study observation (narrative) [facility] VITAMIN D (25-HYDROXY,TOTAL) on 07-31-2021 25-hydroxyvitamin D [Mass/Vol] 15.3 Low >30 NG/ML [facility] Comment on above: DEFICIENT <20 NG/ML INSUFFICIENT 20-<30 NG/ML SUFFICIENT 30-100 NG/ML POTENTIAL TOXICITY >100 NG/ML Interpretation and review of laboratory results Abnormal [facility] Vital Signs Date Time Vital Sign Value Performing Clinician Facility 11-05-2024 14:25-0400 Body height 182.9 cm Stefan Tovar MD Work Phone: [facility] 11-05-2024 14:25-0400 Body mass index (BMI) [Ratio] 27.93 kg/m2 Stefan Tovar MD Work Phone: [facility] 11-05-2024 14:25-0400 Body weight 93.4 kg Stefan Tovar MD Work Phone: [facility] 11-05-2024 14:25-0400 Diastolic blood pressure 64 mm[Hg] Stefan Tovar MD Work Phone: [facility] 11-05-2024 14:25-0400 Heart rate 97 /min Stefan Tovar MD Work Phone: [facility] 11-05-2024 14:25-0400 Respiratory rate 18 /min Stefan Tovar MD Work Phone: [facility] 11-05-2024 14:25-0400 SaO2% (BldA) [Mass fraction] 93 % Stefan Tovar MD Work Phone: [facility] 11-05-2024 14:25-0400 Systolic blood pressure 124 mm[Hg] Stefan Tovar MD Work Phone: [facility] 08-06-2024 13:30-0500 Body height 182.9 cm Duy Mas MD Work Phone: [facility] 08-06-2024 13:30-0500 Body mass index (BMI) [Ratio] 27.67 kg/m2 Duy Mas MD Work Phone: [facility] 08-06-2024 13:30-0500 Body temperature 98.2 [degF] Duy Mas MD Work Phone: [facility] 08-06-2024 13:30-0500 Body weight 92.53 kg Duy Mas MD Work Phone: [facility] 07-08-2024 13:52-0500 Body height 182.9 cm Stefan Tovar MD Work Phone: [facility] 07-08-2024 13:52-0500 Body mass index (BMI) [Ratio] 27.59 kg/m2 Stefan Tovar MD Work Phone: [facility] 07-08-2024 13:52-0500 Body weight 92.26 kg Stefan Tovar MD Work Phone: [facility] 07-08-2024 13:52-0500 Diastolic blood pressure 78 mm[Hg] Stefan Tovar MD Work Phone: [facility] 07-08-2024 13:52-0500 Heart rate 69 /min Stefan Tovar MD Work Phone: [facility] 07-08-2024 13:52-0500 Respiratory rate 18 /min Stefan Tovar MD Work Phone: [facility] 07-08-2024 13:52-0500 SaO2% (BldA) [Mass fraction] 96 % Stefan Tovar MD Work Phone: [facility] 07-08-2024 13:52-0500 Systolic blood pressure 142 mm[Hg] Stefan Tovar MD Work Phone: [facility] 04-06-2024 16:31-0400 Diastolic blood pressure 61 mm[Hg] Marisa Martinez MD Work Phone: [facility] 04-06-2024 16:31-0400 Heart rate 60 /min Marisa Martinez MD Work Phone: [facility] 04-06-2024 16:31-0400 Respiratory rate 18 /min Marisa Martinez MD Work Phone: [facility] 04-06-2024 16:31-0400 SaO2% (BldA) [Mass fraction] 98 % Marisa Martinez MD Work Phone: [facility] 04-06-2024 16:31-0400 Systolic blood pressure 108 mm[Hg] Marisa Martinez MD Work Phone: [facility] 04-06-2024 13:42-0400 Body height 182.9 cm Marisa Martinez MD Work Phone: [facility] 04-06-2024 13:42-0400 Body mass index (BMI) [Ratio] 27.12 kg/m2 Marisa Martinez MD Work Phone: [facility] 04-06-2024 13:42-0400 Body temperature 98.49 [degF] Marisa Martinez MD Work Phone: [facility] 04-06-2024 13:42-0400 Body weight 90.72 kg Marisa Martinez MD Work Phone: [facility] 12-21-2023 14:00-0400 Diastolic blood pressure 75 mm[Hg] Lopez Dubose MD Work Phone: [facility] 12-21-2023 14:00-0400 Heart rate 71 /min Lopez Dubose MD Work Phone: [employer] 12-21-2023 14:00-0400 Respiratory rate 22 /min Lopez Dubose MD Work Phone: [employer] [facility] 12-21-2023 14:00-0400 SaO2% (BldA) [Mass fraction] 93 % Lopez Dubose MD Work Phone: [employer] 12-21-2023 14:00-0400 Systolic blood pressure 134 mm[Hg] Lopez Dubose MD Work Phone: [employer] [facility] 12-21-2023 00:35-0400 Body height 182.9 cm Lopez Dubose MD Work Phone: [employer] [facility] 12-21-2023 00:35-0400 Body mass index (BMI) [Ratio] 26.11 kg/m2 Lopez Dubose MD Work Phone: [employer] 12-21-2023 00:35-0400 Body weight 87.32 kg Lopez Dubose MD Work Phone: [email or web address] Comment on above: bed scale room 2 12-21-2023 00:34-0400 Body temperature 97.81 [degF] Lopez Dubose MD Work Phone: [employer] [facility] 12-07-2023 04:07-0400 Diastolic blood pressure 72 mm[Hg] Tonny Alves MD Work Phone: [facility] 12-07-2023 04:07-0400 Heart rate 78 /min Tonny Alves MD Work Phone: [employer] [facility] 12-07-2023 04:07-0400 Respiratory rate 18 /min Tonny Alves MD Work Phone: [facility] 12-07-2023 04:07-0400 SaO2% (BldA) [Mass fraction] 93 % Tonny Alves MD Work Phone: [facility] 12-07-2023 04:07-0400 Systolic blood pressure 110 mm[Hg] Tonny Alves MD Work Phone: [phone] [place] [address] 12-07-2023 00:46-0400 Body mass index (BMI) [Ratio] 26.22 kg/m2 Tonny Alves MD Work Phone: [phone] [place] [address] 12-07-2023 00:46-0400 Body weight 87.68 kg Tonny Alves MD Work Phone: [phone] [place] [address] 12-07-2023 00:45-0400 Body temperature 98.1 [degF] Tonny Alves MD Work Phone: [facility] 08-23-2023 20:26-0500 Diastolic blood pressure 60 mm[Hg] Marisa Martinez MD Work Phone: [facility] 08-23-2023 20:26-0500 Heart rate 82 /min Marisa Martinez MD Work Phone: [facility] 08-23-2023 20:26-0500 Respiratory rate 16 /min Marisa Martinez MD Work Phone: [facility] 08-23-2023 20:26-0500 SaO2% (BldA) [Mass fraction] 94 % Marisa Martinez MD Work Phone: [facility] 08-23-2023 20:26-0500 Systolic blood pressure 137 mm[Hg] Marisa Martinez MD Work Phone: [facility] 08-23-2023 20:10-0500 Body temperature 98.2 [degF] Marisa Martinez MD Work Phone: [facility] 08-23-2023 16:56-0500 Body mass index (BMI) [Ratio] 25.81 kg/m2 Marisa Martinez MD Work Phone: [facility] 08-23-2023 16:56-0500 Body weight 86.32 kg Marisa Martinez MD Work Phone: [facility] 08-02-2021 11:59-0500 Body temperature 97.59 [degF] Kraig Trevino MD Work Phone: [facility] 08-02-2021 11:59-0500 Diastolic blood pressure 67 mm[Hg] Kraig Trevino MD Work Phone: [facility] 08-02-2021 11:59-0500 Heart rate 92 /min Kraig Trevino MD Work Phone: [facility] 08-02-2021 11:59-0500 Respiratory rate 18 /min Kraig Trevino MD Work Phone: [facility] 08-02-2021 11:59-0500 SaO2% (BldA) [Mass fraction] 92 % Kraig Trevino MD Work Phone: [facility] 08-02-2021 11:59-0500 Systolic blood pressure 128 mm[Hg] Kraig Trevino MD Work Phone: [facility] 08-02-2021 04:12-0500 Body mass index (BMI) [Ratio] 27.37 kg/m2 Kraig Trevino MD Work Phone: [facility] 08-02-2021 04:12-0500 Body weight 91.54 kg Kraig Trevino MD Work Phone: [facility] 08-01-2021 10:03-0500 Body height 182.9 cm Kraig Trevino MD Work Phone: [facility] Encounters Encounter Date Encounter Type Care Provider Facility Start: 11-05-2024 Encounter for preprocedural respiratory examination STEFAN AMBROSE [facility] Start: 11-05-2024 End: 11-05-2024 Office outpatient visit 25 minutes Stefan Ambrose MD Work Phone: [facility] Comment on above: Encounter for pre-op erative respiratory clearance (Primary Dx); Chronic obstructive pulmonary disease, unspecified COPD type; Secondary pulmonary arterial hypertension; Lung nodule; Nicotine dependence, cigarettes, with unspecified nicotine-induced disorders; Pulmonary scarring; Severe persistent asthma without complication; Eosinophilic asthma; Asthma-COPD overlap syndrome; COPD exacerbation; Vocal cord dysfunction Start: 11-05-2024 ambulatory [facility] Start: 11-05-2024 Encounter for preprocedural respiratory examination [facility] Start: 11-05-2024 End: 11-05-2024 Patient encounter status Stefan Ambrose MD Work Phone: [facility] Start: 10-29-2024 ambulatory [facility] Start: 10-29-2024 End: 10-29-2024 Subsequent hospital visit by physician Stefan Ambrose MD Work Phone: [facility] CT Scan Comment on above: Arrived Start: 10-08-2024 End: 10-08-2024 ambulatory Khanh GILBERT Facility:[facility] Start: 09-19-2024 ambulatory Khanh GILBERT Facility:[facility] [place] Start: 08-14-2024 End: 08-14-2024 Subsequent hospital visit by physician Stefan Ambrose MD Work Phone: [facility] Pulmonary Comment on above: Arrived Start: 08-14-2024 ambulatory [facility] Start: 08-06-2024 End: 08-06-2024 Office outpatient new 45 minutes Duy Mas MD Work Phone: [facility] Otolaryngology Comment on above: Dysphonia (Primary D x); Pharyngoesophageal dysphagia; Deviated nasal septum; Presbylarynx Start: 08-06-2024 [facility] Start: 07-08-2024 ambulatory STEFAN AMBROSE [facility] Start: 07-08-2024 End: 07-08-2024 Office outpatient visit 40 minutes Stefan Ambrose MD Work Phone: [facility] Pulmonary Disease [facility] Comment on above: Chronic obstructive pulmonary disease, unspecified COPD type (Primary Dx); Secondary pulmonary arterial hypertension; Pulmonary scarring; Nicotine dependence, cigarettes, with unspecified nicotine-induced disorders; Reactive airway disease without complication, unspecified asthma severity, unspecified whether persistent; Dysphagia, unspecified type Start: 07-08-2024 ambulatory DEZ Aranda Chika [facility] Start: 07-04-2024 ambulatory DEZ Aranda Chika [facility] Start: 04-06-2024 End: 04-06-2024 Emergency department patient visit Marisa Martinez MD Work Phone: [facility] Emergency Department Start: 02-01-2024 [facility] Start: 01-23-2024 [facility] KRANTHI EDGAR [facility] Start: 01-23-2024 End: 01-23-2024 Subsequent hospital visit by physician Kranthi Edgar MD Work Phone: [facility] N[facility] Comment on above: Arrived Start: 12-27-2023 ambulatory [facility] Start: 12-21-2023 End: 12-21-2023 Emergency department patient visit Lopez Dubose MD Work Phone: [facility] Emergency Department Start: 12-07-2023 End: 12-07-2023 Emergency department patient visit Tonny Alves MD Work Phone: [facility] Emergency Department Start: 10-31-2023 End: 10-31-2023 Subsequent hospital visit by physician Dez Rodriguez MD Work Phone: [facility] Nuclear Medicine Comment on above: Arrived Start: 08-23-2023 End: 08-23-2023 Emergency department patient visit Marisa Martinez MD Work Phone: [facility] Emergency Department Start: 05-11-2023 End: 05-11-2023 Subsequent hospital visit by physician Dez Rodriguez MD Work Phone: [facility] CT Scan Comment on above: Arrived Start: 04-10-2023 End: 04-10-2023 Subsequent hospital visit by physician Dez Rodriguez MD Work Phone: [facility] Ultrasound Comment on above: Arrived Start: 11-23-2022 End: 11-23-2022 ambulatory SAMANTHA BUTLER Facility:[facility] Start: 08-11-2022 End: 08-15-2022 Evaluation and management of inpatient DR DEZ RODRIGUEZ . Facility:[facility] Start: 06-15-2022 End: 06-18-[address] DEZ RODRIGUEZ . Facility:[facility] Start: 10-21-2021 End: 10-21-2021 Subsequent hospital visit by physician Dez Rodriguez MD Work Phone: [facility] Ultrasound Comment on above: Arrived Start: 09-29-2021 End: 09-29-2021 Subsequent hospital visit by physician Dez Rodriguez MD Work Phone: [facility] Diagnostic Radiology Comment on above: Arrived Start: 07-31-2021 End: 08-02-2021 Emergency department patient visit Kraig Trevino MD Work Phone: [facility] Med Surg Comment on above: Multifocal pneumonia Start: 09-14-2017 End: 09-15-2017 Ambulatory DEFAULT PHYSICIAN Facility:[facility] Procedures Date Procedure Procedure Detail Performing Clinician Start: 08-14-2024 Echo tthrc r-t 2d w/ wom-mode compl spec&colr d Stefan Ambrose MD Work Phone: Start: 08-14-2024 PFT COMPLETE Stefan Ambrose MD Work Phone: Start: 08-14-2024 Pulmonary stress testing Stefan Ambrose MD Work Phone: Start: 08-06-2024 Laryngoscopy flx/rgd telescopic w/stroboscopy Duy Mas MD Work Phone: Start: 04-06-2024 Assay of troponin quantitative Marisa [...] MD Work Phone: Start: 08-02-2021 C-reactive protein Lauro Hoover PA-C Work Phone: Start: 08-02-2021 Complete blood count with white cell differential, automated Huan Hoover PA-C Work Phone: Start: 08-02-2021 Renal function panel De kai Hoover PA-C Work Phone: Start: 08-01-2021 Iaad ia mult step me thod nos each organism Huan BROWN-C Work Phone: Start: 08-01-2021 C-reactive protein Lauro BROWN-C Work Phone: Start: 08-01-2021 Renal function panel De jaquansydney BROWN-C Work Phone: Start: 07-31-2021 Assay of troponin quantitative Osmin Luna MD Work Phone: Start: 07-31-2021 Dup-scan xtr veins c omplete bilateral study Huan BROWN-C Work Phone: Start: 07-31-2021 Cultyp nuc acid amp prb cult/isolate ea orgnism Osmin Luna MD Work Phone: Start: 07-31-2021 25 hydroxy includes fractions if performed Huan BROWN-C Work Phone: Start: 07-31-2021 End: 07-31-2021 Culture [...] Treatment Date Care Activity Detail Author Start: 10-29-2025 End: 11-05-2025 6-minute walk test EXERCISE-6 MIN. WALK PFT Routine Chronic obstructive pulmonary disease, unspecified COPD type Secondary pulmonary arterial hypertension Pulmonary scarring Severe persistent asthma without complication Expected: 10/29/2025 (Approximate), Expires: 11/05/2025 [facility] Comment on above: Expected: 10/29/2025 (Approximate), Expi res: 11/05/2025 Start: 10-29-2025 End: 11-05-2025 CT Chest WO contrast CT CHEST WITHOUT CONTRAST Imaging Routine Lung nodule Pulmonary scarring Expected: 10/29/2025 (Approximate), Expires: 11/05/2025 [facility] Comment on above: Expected: 10/29/2025 (Approximate), Expi res: 11/05/2025 Start: 10-29-2025 End: 11-05-2025 PFT COMPLETE PFT COMPLETE PFT Routine Chronic obstructive pulmonary disease, unspecified COPD type Secondary pulmonary arterial hypertension Pulmonary scarring Severe persistent asthma without complication Expected: 10/29/2025 (Approximate), Expires: 11/05/2025 [facility] Comment on above: Expected: 10/29/2025 (Approximate), Expi res: 11/05/2025 Start: 04-29-2025 End: 04-29-2025 Patient encounter procedure 04/29/2025 2:40 PM EST Office Visit [facility] Pulmonary Disease [facility] [address] [address] Khanh Encinas, [employer] [address] [facility] [address] [place] [address] [facility] Pulmonary Disease [facility] Start: 02-24-2025 Influenza vaccination INFLUENZA VACCINE (Season Ended) [facility] Start: 12-05-2024 End: 12-05-2024 Patient encounter procedure 12/05/2024 1:20 PM EDT Office Visit [facility] Cardiology [address] [place] [address] Kranthi Edgar II, MD [address] [place] [address] [facility] Cardiology Start: 11-05-2024 End: 11-05-2024 Patient encounter procedure 11/05/2024 2:40 PM EDT Office Visit [facility] [address] [id number] Stefan Goel MD [address] [place] [address] [facility] Start: 11-05-2024 End: 11-05-2025 Overnight pulse oximetry OVERNIGHT PULSE OXIMETRY TEST PFT Routine Chronic obstructive pulmonary disease, unspecified COPD type Secondary pulmonary arterial hypertension Pulmonary scarring Severe persistent asthma without complication Expected: 11/05/2024 (Approximate), Expires: 11/05/2025 [facility] Comment on above: Expected: 11/05/2024 (Approximate), Expi res: 11/05/2025 Start: 08-14-2024 End: 08-14-2024 Patient encounter procedure [facility] Start: 08-13-2024 End: 08-13-2024 Clinical Support Encounter 08/13/2024 1:30 PM EST Clinical Support Encounter [facility] [address] [id number] [facility] Start: 07-08-2024 End: 07-08-2025 6-minute walk test EXERCISE-6 MIN. WALK PFT Routine Secondary pulmonary arterial hypertension Chronic obstructive pulmonary disease, unspecified COPD type Pulmonary scarring Reactive airway disease without complication, unspecified asthma severity, unspecified whether persistent Expected: 07/08/2024, Expires: 07/08/2025 [facility] Comment on above: Expected: 07/08/2024, Expires: Start: 07-08-2024 End: 07-08-2025 ALLERGEN PROFILE, MOLD [facility] Comment on above: Expected: 07/08/2024, Expires: Start: 07-08-2024 End: 07-08-2025 ALPHA 1 AN[facility]ITRYPSIN [facility] Comment on above: Expected: 07/08/2024, Expires: Start: 07-08-2024 End: 07-08-2025 CT Chest WO contrast CT CHEST WITHOUT CONTRAST Imaging Routine Pulmonary scarring Expected: 07/08/2024 (Approximate), Expires: 07/08/2025 [facility] Comment on above: Expected: 07/08/2024 (Approximate), Expi res: 07/08/2025 Start: 07-08-2024 End: 07-08-2025 Echocardiography ECHOCARDIOGRAM Echocardiography Routine Secondary pulmonary arterial hypertension Expected: 07/08/2024 (Approximate), Expires: 07/08/2025 [facility] Comment on above: Expected: 07/08/2024 (Approximate), Expi res: 07/08/2025 Start: 07-08-2024 End: 07-08-2025 IMMUNOGLOBULIN IGE [facility] Comment on above: Expected: 07/08/2024, Expires: Start: 07-08-2024 End: 07-08-2025 MINI-PANEL ALLERGEN PROFILE [facility] Comment on above: Expected: 07/08/2024, Expires: Start: 07-08-2024 End: 07-08-2025 Overnight pulse oximetry OVERNIGHT PULSE OXIMETRY TEST PFT Routine Secondary pulmonary arterial hypertension Chronic obstructive pulmonary disease, unspecified COPD type Pulmonary scarring Reactive airway disease without complication, unspecified asthma severity, unspecified whether persistent Expected: 07/08/2024, Expires: 07/08/2025 [facility] Comment on above: Expected: 07/08/2024, Expires: Start: 07-04-2024 End: 07-04-2024 Patient encounter procedure 07/04/2024 1:20 PM EST Office Visit [facility] Cardiology [address] [place] [address] Kranthi Edgar II, MD [address] [place] [address] [facility] Start: 02-25-2024 COVID-19 VACCINE ( season) COVID-19 VACCINE () [facility] Start: 02-25-2024 COVID-19 VACCINE ( season) COVID-19 VACCINE ( season) [facility] Start: 02-25-2024 Influenza vaccination [facility] [employer] [facility] Start: 02-01-2024 End: 02-01-2024 Patient encounter procedure 02/01/2024 1:20 PM EDT Office Visit [facility] [address] [place] [address] Kranthi Edgar II, MD [address] [place] [address] [facility] Start: 02-24-2023 COVID-19 VACCINE ( season) COVID-19 VACCINE ( season) [facility] Start: 02-24-2023 Influenza vaccination INFLUENZA VACCINE (#1) [facility] [employer] Start: 02-24-2022 Influenza vaccination INFLUENZA VACCINE (Season Ended) [facility] Start: 02-24-2021 Influenza vaccination INFLUENZA VACCINE (#1) [facility] [employer] Start: 2015 Abdominal aortic aneurysm screening ABDOMINAL AORTIC ANEURYSM HIGH RISK SCREEN [facility] Start: 2015 Pneumococcal vaccination PNEUMOCOCCAL VACCINE SERIES (1 of 1 - PPSV23) [facility] Start: 2010 RSV VACCINE (1 - 1-dose 60+ series) RSV VACCINE (1 - 1-dose 60+ series) [facility] Start: 2010 RSV VACCINE (1 - Risk 60-74 years 1-dose series) RSV VACCINE (1 - Risk 60-74 years 1-dose series) [facility] Start: 2000 Prostate specific antigen measurement PROSTATE CANCER SCREENING DISCUSSION [facility] Start: 2000 Zoster vaccine hzv live for subcutaneous use ZOSTER (SHINGLES) VACCINE (1 of 2) [facility] Start: 1995 Colonoscopy COLORECTAL CANCER SCREENING DISCUSSION [facility] Start: 1995 Screening for malignant neoplasm of colon COLORECTAL CANCER SCREENING DISCUSSION [facility] Start: 1990 Fasting lipid profile LIPID SCREENING [facility] [email or web address] Start: 1990 Lipid panel LIPID SCREENING [facility] Start: 1969 Pneumococcal vaccination PNEUMOCOCCAL VACCINE SERIES (1 of 2 - PCV) [facility] Start: 1969 Third diphtheria, tetanus and acellular pertussis (DTaP) vaccination TDAP (ADULT) [facility] Start: 1968 Tetanus vaccination TETANUS [facility] Start: [address] [facility] Start: 1955 COVID-19 VACCINE (#1) COVID-19 VACCINE (#1) [facility] Start: 1955 COVID-19 VACCINE (1) COVID-19 VACCINE (1) [facility] Start: 02-14-1951 COVID-19 VACCINE (#1) COVID-19 VACCINE (#1) [facility] Start: 1950 Hepatitis C antibody, confirmatory test HEPATITIS C VIRUS SCREENING [facility] Start: 1950 Hepatitis C screening HEPATITIS C VIRUS SCREENING [facility] Start: 1950 Tetanus vaccination TETANUS [facility] Bacteria identified in Blood by Culture [facility] End: 08-14-2024 CT Chest WO contrast [facility] Comment on above: 1 Occurrences starting 08/14/2024 until 08/14/2024 End: 10-29-2024 CT Chest WO contrast [facility] Comment on above: 1 Occurrences starting 10/29/2024 until 10/29/2024 End: 10-31-2023 [facility] MONIT[facility] - SENIOR CARE [facility] - SENIOR CARE ECG Routine Dyspnea, unspecified type 1 Occurrences starting 10/31/2023 until 10/31/2023 [facility] Work Phone: Comment on above: 1 Occurrences starting 10/31/2023 until 10/31/2023 PFT COMPLETE PFT COMPLETE PFT Routine Secondary pulmonary arterial hypertension Chronic obstructive pulmonary disease, unspecified COPD type Pulmonary scarring Reactive airway disease without complication, unspecified asthma severity, unspecified whether persistent Ordered: 07/08/2024 [facility] Comment on above: Ordered: 07/08/2024 End: 07-31-2021 Standard ECG ECG ECG STAT One Time for 1 Occurrences starting 07/31/2021 until 07/31/2021 [facility] Comment on above: One Time for 1 Occurrences starting 10/2021 until 07/31/2021 End: 08-23-2023 Standard ECG ECG ECG STAT One Time for 1 Occurrences starting 08/23/2023 until 08/23/2023 [facility] Comment on above: One Time for 1 Occurrences starting 07/28 until 08/23/2023 Standard ECG ECG ECG Routine 12/07/2023 12:39 AM EDT [facility] Standard ECG ECG ECG STAT 12:22 AM EDT [facility] End: 04-06-2024 Standard ECG ECG ECG STAT One Time for 1 Occurrences starting 04/06/2024 until 04/06/2024 [facility] Comment on above: One Time for 1 Occurrences starting 03/26 until 04/06/2024 Tobacco use cessatio n intermediate 3-10 minutes ID TOBACCO USE CESSATION INTERMEDIATE 3-10 MINUTES ID Charge Routine Nicotine dependence, cigarettes, with unspecified nicotine-induced disorders Ordered: 07/08/2024 [facility] Comment on above: Ordered: 07/08/2024 End: 01-23-2024 US.doppler Carotid arteries - bilateral [facility] Work Phone: Comment on above: 1 Occurrences starting 01/23/2024 until 01/23/2024 Payers Date Payer Category Payer Medicare MEDICARE [employer] MEDICARE [employer] HMO PPO [id number] 2021-Present [address] [place] [address] [id number] 2021 Medicare (Managed Care) MEDICARE MEDICAL M[employer]UAL HMO PPO [id number] 2019 Medicare MEDICARE ANTHEM HMO OR PPO MEDICARE ANTHEM HMO OR PPO [id number] 2019-Present [address] [place] [address] [id number] 1959 Medicare [id number] 1950 Unknown [id number] 2.16.840.1.760319.3.579. 2.593 1950 Unknown [id number] 2.16.840.1.561626.3.579. 2.593 1950 Unknown [id number] 2.16.840.1.157742.3.579. 2.593 1950 Unknown [id number] 2.16.840.1.292984.3.579. 2.983 1950 Unknown [id number] 2.16.840.1.557653.3.579. 2.983 1950 Unknown [id number] 2.16.840.1.693196.3.579. 2.983 1950 Unknown [id number] 2.16.840.1.611474.3.579. 2.727 1950 Unknown [id number] 2.16.840.1.756511.3.579. 2.983 1950 Unknown [id number] 2.16.840.1.965158.3.579. 2.983 1950 Unknown [id number] 2.16.840.1.665239.3.579. 2.983 1950 Unknown [id number] 2.16.840.1.185792.3.579. 2.983 1950 Unknown [id number] 2.16.840.1.898331.3.579. 2.983 1950 Unknown [id number] 2.16.840.1.947175.3.579. 2.983 1950 Unknown [id number] 2.16.840.1.261761.3.579. 2.983 1950 Unknown [id number] 2.16.840.1.147770.3.579. 2.983 1950 Unknown [id number] 2.16.840.1.761787.3.579. 2.983 1950 Unknown [id number] 2.16.840.1.321515.3.579. 2.983 1950 Unknown [id number] 2.16.840.1.335583.3.579. 2.983 1950 Unknown [id number] 2.16.840.1.052128.3.579. 2.983 1950 Unknown [id number] 2.16.840.1.855891.3.579. 2.983 1950 Unknown [id number] 2.16.840.1.542103.3.579. 2.983 1950 Unknown [id number] 2.16.840.1.345607.3.579. 2.983 Unknown Social History Date Type Detail Facility Start: 07-31-2021 End: 08-23-2023 Tobacco smoking status HIIS Smokes tobacco daily [facility] Start: 07-31-2021 End: 08-23-2023 Tobacco use and exposure Smokeless tobacco non-user [facility] Start: 07-31-2021 End: 11-05-2024 Alcohol intake Lifetime non-drinker (finding) [facility] Start: 07-31-2021 History SDOH Alcohol Frequency 1 [facility] Start: 1950 Sex Assigned At Not on file A [facility] Exposure to SARS-CoV -2 (event) Yes [facility] History of tobacco use Cigarette Smoker A [facility] Start: 08-19-2022 End: 11-05-2024 Cigarettes smoked current (pack per day) - Reported 1 [facility] Start: 08-19-2022 End: 11-05-2024 Tobacco use panel [facility] Start: 11-20-2019 Sex Male (finding) [facility] Functional Status Date Assessment Result Facility 07-31-2021 Are you deaf, or do you have serious difficulty hearing No 07/31/2021 3:20 PM Martin Irvin RN No [facility] 07-31-2021 Are you blind, or do you have serious difficulty seeing, even when wearing glasses No 07/31/2021 3:20 PM Martin Irvin RN No [facility] 07-31-2021 Do you have serious difficulty walking or climbing stairs No 07/31/2021 3:20 PM Martin Irvin RN No [facility] 07-31-2021 Do you have difficul ty dressing or bathing No 07/31/2021 3:20 PM Martin Irvni RN [facility] 07-31-2021 Because of a physica l, mental, or emotional condition, do you have difficulty doing errands alone such as visiting a physician's office or shopping No 07/31/2021 3:20 PM Martin Irvin RN [facility] Mental Status Date Assessment Result Facility 07-31-2021 Because of a physica l, mental, or emotional condition, do you have serious difficulty concentrating, remembering, or making decisions No 07/31/2021 3:20 PM Martin Irvin RN No [facility] Clinical Notes 07-31-2021 to 11-05-2024 Assessment & Plan Note - Stefan Tovar MD - 11/05/2024 4:11 PM EDTAssessment & Plan Note - Stefan Tovar MD - 11/05/2024 4:11 PM EDTMchristine Loya - 11/05/2024 2:40 PM EDT Note Date & Type Note Facility 11-05-2024 Evaluation + Plan note Associated Problem(s): Vocal cord dysfunction May have element VCD, PVFD; ENT ffup prn; refer to SOLAR MECHANICAL ENGINEER. [facility] 11-05-2024 Miscellaneous Notes Associated Problem(s): Vocal cord dysfunction May have element VCD, PVFD; ENT ffup prn; refer to SOL[employer] MECHANICAL ENGINEER. Associated Problem(s): Encounter for pre-operative respiratory clearance - Pt cleared for surgery from a pulmonary standpoint (for Colonoscopy per Dr. Khanh Gilbert ([facility]). - [facility] Preoperative Pulmonary Risk Index [...] resp. insufficiency/failure, among others). - defer to compensation and benefits advisor and surgeon optimal choice of anesthesia plan [...] and at length; questions answered; stated understanding Associated Problem(s): COPD (chronic obstructive pulmonary disease) See ACO txs. 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 - consider Biologics; if feasible Associated Problem(s): Asthma-COPD overlap syndrome - Smoker; hx of COPD; episodic dyspnea, [...] Influenza, pneumococcal, COVID19, pulmonary vaccines recommended, updated Associated Problem(s): Pulmonary scarring Chest radiograph w/ some increased lung markings; possible element of Interstitial lung disease ILD, likely mild focal postinflammatory scarring; and poss mild RB-ILD smoking-related - 08/15/2024 CT Chest w/o contrast [...] further evaluation, management pending results, clinical course. Associated Problem(s): Severe persistent asthma without complication May have Asthma COPD overlap ACO; See COPD txs - consider Biologics, if feasible. documented in this encounter [facility] 11-05-2024 Evaluation + Plan note Associated Problem(s): Encounter for pre-operative respiratory clearance - Pt cleared for surgery from a pulmonary standpoint (for Colonoscopy per Dr. Khanh Gilbert ([facility]). - [facility] Preoperative Pulmonary Risk Index [...] resp. insufficiency/failure, among others). - defer to compensation and benefits advisor and surgeon optimal choice of anesthesia plan [...] and at length; questions answered; stated understanding [facility] 11-05-2024 Evaluation + Plan note Associated Problem(s): COPD (chronic obstructive pulmonary disease) See ACO txs. 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 - consider Biologics; if feasible [facility] 11-05-2024 Evaluation + Plan note Associated Problem(s): Asthma-COPD overlap syndrome - Smoker; hx of COPD; episodic dyspnea, [...] Influenza, pneumococcal, COVID19, pulmonary vaccines recommended, updated [facility] 11-05-2024 Evaluation + Plan note Associated Problem(s): Pulmonary scarring Chest radiograph w/ some increased lung markings; possible element of Interstitial lung disease ILD, likely mild focal postinflammatory scarring; and poss mild RB-ILD smoking-related - 08/15/2024 CT Chest w/o contrast [...] further evaluation, management pending results, clinical course. [facility] 11-05-2024 Evaluation + Plan note Associated Problem(s): Severe persistent asthma without complication May have Asthma COPD overlap ACO; See COPD txs - consider Biologics, if feasible. [facility] 11-05-2024 History of Presen t illness Narrative Neck circumference - Currently smoking or Hx of smoking -yes Oxygen use _no patient is benefiting from oxygen use. Do you have a CPAP- no DME company- n/a Most recent CT-10/29/24 Most recent PFT- 08/14/24 Symptoms include: SOB, coughing,wheezing, sinus drainage, chest pain Increase in shortness of breath-yes Dyspnea upon exertion- yes Dyspnea at rest- yes Cough- productive- yes sometimes Have you had the Covid 19 vaccine-n/a Do you need a Medication refill? no Pt presents for review of labs, CT Chest, Echo,PFT, 6 MWT Maintenance medication - roflumilast (Daliresp) 500 MCG tablet Maintenance cklavca-wgkskzzvct-hodmqmczsnbkjo -Formoterol (Breztri Aerosphere) 160-9-4.8 MCG/ACT Aerosol inhaler Rescue medication- Ipratropium-albuterol 0.5-2.5 (3) MG/3ML nebulizer solution, Formoterol (Perforomist) 20 MCG/2ML Nebu Soln nebulizer solution albuterol 108 (90 Base) MCG/ACT Aero Soln inhaler Patient last seen in office on 07/08/24 and is present to review labs, CT Chest (10/29/24), Echo (08/14/24) and PFT / 6MWT (08/14/24) Patient is a 74 y.o. male who came to be evaluated and managed for COPD, dypsnea, bronchospasm Chronic Obstructive Pulmonary Disease . ICD-10-CM 1. Encounter for pre-operative respiratory clearance Z01.811 2. Chronic obstructive pulmonary disease, unspecified COPD type J44.9 OVERNIGHT PULSE OXIMETRY TEST EXERCISE-6 MIN. WALK PFT COMPLETE AMB REFERRAL TO PULMONARY REHAB AMB REFERRAL TO INFUSION CLINIC Ensifentrine 3 MG/2.5ML Suspension dexAMETHasone 4 MG tablet 3. Secondary pulmonary arterial hypertension I27.21 OVERNIGHT PULSE OXIMETRY TEST EXERCISE-6 MIN. WALK PFT COMPLETE 4. Lung nodule R91.1 CT CHEST WITHOUT CONTRAST 5. Nicotine dependence, cigarettes, with unspecified nicotine-induced disorders F17.219 6. Pulmonary scarring J98.4 OVERNIGHT PULSE OXIMETRY TEST CT CHEST WITHOUT CONTRAST EXERCISE-6 MIN. WALK PFT COMPLETE 7. Severe persistent asthma without complication J45.50 OVERNIGHT PULSE OXIMETRY TEST EXERCISE-6 MIN. WALK PFT COMPLETE AMB REFERRAL TO INFUSION CLINIC dexAMETHasone 4 MG tablet 8. Eosinophilic asthma J82.83 AMB REFERRAL TO INFUSION CLINIC dexAMETHasone 4 MG tablet 9. Asthma-COPD overlap syndrome J44.89 AMB REFERRAL TO PULMONARY REHAB AMB REFERRAL TO INFUSION CLINIC Ensifentrine 3 MG/2.5ML Suspension dexAMETHasone 4 MG tablet 10. COPD exacerbation J44.1 dexAMETHasone 4 MG tablet 11. Vocal cord dysfunction J38.3 AMB REFERRAL TO [facility] PATH[facility]Y Problem List Items Addressed This Visit Secondary pulmonary arterial hypertension Relevant Orders OVERNIGHT PULSE OXIMETRY TEST EXERCISE-6 MIN. WALK PFT COMPLETE Pulmonary scarring Chest radiograph w/ some increased lung markings; possible element of Interstitial lung disease ILD, likely mild focal postinflammatory scarring; and poss mild RB-ILD smoking-related - 08/15/2024 CT Chest w/o contrast [...] further evaluation, management pending results, clinical course. Relevant Orders OVERNIGHT PULSE OXIMETRY TEST CT CHEST WITHOUT CONTRAST EXERCISE-6 MIN. WALK PFT COMPLETE Asthma-COPD overlap syndrome - Smoker; hx of COPD; episodic dyspnea, [...] Influenza, pneumococcal, COVID19, pulmonary vaccines recommended, updated Relevant Medications Ensifentrine 3 MG/2.5ML Suspension dexAMETHasone 4 MG tablet Other Relevant Orders AMB REFERRAL TO PULMONARY REHAB AMB REFERRAL TO INFUSION CLINIC Nicotine dependence, cigarettes, with unspecified nicotine-induced disorders Severe persistent asthma without complication May have Asthma COPD overlap ACO; See COPD txs - consider Biologics, if feasible. Relevant Medications dexAMETHasone 4 MG tablet Other Relevant Orders OVERNIGHT PULSE OXIMETRY TEST EXERCISE-6 MIN. 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 - consider Biologics; if feasible Relevant Medications dexAMETHasone 4 MG tablet Other Relevant Orders AMB REFERRAL TO INFUSION CLINIC Encounter for pre-operative respiratory clearance - Primary - Pt cleared for surgery from a pulmonary standpoint (for Colonoscopy per Dr. Khanh Gilbert ([facility]). - [facility] Preoperative Pulmonary Risk Index [...] resp. insufficiency/failure, among others). - defer to compensation and benefits advisor and surgeon optimal choice of anesthesia plan [...] questions answered; stated understanding Vocal cord dysfunction May have element VCD, PVFD; ENT ffup prn; refer to SOLAR MECHANICAL ENGINEER. Relevant Orders AMB REFERRAL TO [facility] PATHOLOGY Other Visit Diagnoses Lung nodule Relevant Orders CT CHEST WITHOUT CONTRAST COPD exacerbation Relevant Medications dexAMETHasone 4 MG tablet HPI 11/05/24: not in acute exacerbation or resp infection. On inhalers 07/08/24 - Smoker; hx of COPD; episodic dyspnea, trejo, occ wheezing/cough; hx of bronchitis and PNA prev.; as per records; was on Albuterol inh and neb., Dulera, Theophylline prev. Current Outpatient Medications: albuterol (2.5 MG/3ML) 0.083% inhalation solution, Take 3 mL by nebulization every 6 hours as needed for Shortness of Breath., Disp: , Rfl: albuterol 108 (90 Base) MCG/ACT Aero Soln inhaler, Inhale 1 puff every 6 hours as needed for Shortness of Breath., Disp: , Rfl: budesonide 0.5 MG/2ML nebulizer suspension, Inhale 2 mL 2 times daily., Disp: 120 mL, Rfl: 11 wschsgasmt-txubqleyqexwvp-Lyxhwrj rol (Breztri Aerosphere) 160-9-4.8 MCG/ACT Aerosol inhaler, Inhale 2 puffs 2 times daily. GARGLE, RINSE MOUTH AFTER USE, Disp: 10.7 g, Rfl: 11 formoterol (Perforomist) 20 MCG/2ML Nebu Soln nebulizer solution, Take 2 mL by nebulization 2 times daily., Disp: 120 mL, Rfl: 11 Ipratropium-albuterol 0.5-2.5 (3) MG/3ML nebulizer solution, Take 3 mL by nebulization every 4 hours as needed for Wheezing, Shortness of Breath, Breathing Treatment or Cough., Disp: 300 mL, Rfl: 11 Ondansetron 4 MG Tab Dispersible tablet, Take 1 tablet by mouth every [address] on tongue, Disp: 14 tablet, Rfl: 0 roflumilast (Daliresp) 500 MCG tablet, Take 1 tablet by mouth daily. TAKE 1 TABLET EVERY OTHER DAY FOR 2 WEEKS, THEN 1 TABLET DAILY, Disp: 30 tablet, Rfl: 11 theophylline 300 MG Tab SR 12 HR, TAKE 1 TABLET BY MOUTH TWICE DAILY GIVE ON AN EMPTY STOMACH. DO NOT CRUSH OR CHEW, Disp: , Rfl: Amoxicillin-clavulanate 875-125 MG tablet, Take 1 tablet by mouth 2 times daily. (Patient not taking: Reported on 11/05/2024), Disp: , Rfl: dppqkvczsdv-bczstbuzs-Nmzsem (Trelegy Ellipta) 100-62.5-25 MCG/ACT Aerosol Powder, breath activated inhaler, Inhale 1 puff daily. (Patient not taking: Reported on 11/05/2024), Disp: 28 Each, Rfl: 0 mometasone Furo-Formoterol Fum 200-5 MCG/puff Aerosol, Inhale 2 puffs every 12 hours. (Patient not taking: Reported on 11/05/2024), Disp: , Rfl: SPACER FOR INHALER PRESCRIPTION, Use with inhaler as directed (Patient not taking: Reported on 11/05/2024), Disp: 1 Each, Rfl: 0 SPACER FOR INHALER PRESCRIPTION, Use with inhaler as directed (Patient not taking: Reported on 11/05/2024), Disp: 1 Each, Rfl: 0 Past Medical History: Diagnosis Date COPD (chronic obstructive pulmonary disease) No past surgical history on file. Social History Tobacco Use Smoking status: Every Day Current packs/day: 0.50 Types: Cigarettes Smokeless tobacco: Never Substance Use Topics Alcohol use: Never Family History Problem Relation Age of Onset Heart Failure Father Allergies Allergen Reactions Ketorolac Nausea and Vomiting nausea vomiting Ascorbate Hives Large doses per pt Metoprolol Tartrate [Metoprolol] Nausea and Vomiting and Dizzy/Vertigo Prednisone ALL STEROIDS Other reaction(s): Intolerance Cardiac reaction per pt Review of Systems Respiratory: Positive for shortness of breath. Neck circumference - Currently smoking or Hx of smoking -yes Oxygen use _no patient is benefiting from oxygen use. Do you have a CPAP- no DME company- n/a Most recent CT-10/29/24 Most recent PFT- 08/14/24 Symptoms include: SOB, coughing,wheezing, sinus drainage, chest pain Increase in shortness of breath-yes Dyspnea upon exertion- yes Dyspnea at rest- yes Cough- productive- yes sometimes Have you had the Covid 19 vaccine-n/a Do you need a Medication refill? no Pt presents for review of labs, CT Chest, Echo,PFT, 6 MWT Maintenance medication - roflumilast (Daliresp) 500 MCG tablet Maintenance zrnwslj-zzmdpsjuuv-twkbzkagrpwzdj -Formoterol (Breztri Aerosphere) 160-9-4.8 MCG/ACT Aerosol inhaler Rescue medication- Ipratropium-albuterol 0.5-2.5 (3) MG/3ML nebulizer solution, Formoterol (Perforomist) 20 MCG/2ML Nebu Soln nebulizer solution albuterol 108 (90 Base) MCG/ACT Aero Soln inhaler Patient last seen in office on 07/08/24 and is present to review labs, CT Chest (10/29/24), Echo (08/14/24) and PFT / 6MWT (08/14/24) Vitals: 11/05/24 1425 BP: 124/64 Pulse: 97 Resp: 18 SpO2: 93% Weight: 93.4 kg (205 lb 14.4 oz) Height: 1.829 m (6') Vital Signs Reviewed as noted. Physical Exam Vitals and nursing note reviewed. Constitutional: General: He is not in acute distress. Appearance: He is not ill-appearing. HENT: Head: Normocephalic and atraumatic. Right Ear: External ear normal. Left Ear: External ear normal. Nose: Nose normal. Mouth/Throat: Mouth: Mucous membranes are moist. Pharynx: Oropharynx is clear. No oropharyngeal exudate or posterior oropharyngeal erythema. Eyes: General: No scleral icterus. Neck: Vascular: No JVD. Trachea: No tracheal deviation. Cardiovascular: Rate and Rhythm: Regular rhythm. Heart sounds: Normal heart sounds. Pulmonary: Effort: Pulmonary effort is normal. No respiratory distress. Breath sounds: No stridor. Rhonchi present. No wheezing or rales. Comments: Occ upper airway wheeze. Chest: Chest wall: No tenderness. Genitourinary: Comments: Deferred Musculoskeletal: Cervical back: Neck supple. Right lower leg: No edema. Left lower leg: No edema. Lymphadenopathy: Cervical: No cervical adenopathy. Skin: General: Skin is warm and dry. Coloration: Skin is not jaundiced. Neurological: Mental Status: He is alert and oriented to person, place, and time. Psychiatric: Mood and Affect: Mood normal. Behavior: Behavior normal. I personally reviewed selected chart notes, results, interpreted tests, imaging today before seeing the pt; reviewed and discussed w/ pt, questions answered - 08/14/2024 6MWT: on Room Air. Dx: dyspnea - pt. walked for 6 minutes, for a distance of 1000 ft (6MWD 305 m). - Baseline SpO2 at rest on room air: 96%. - Significant oxygen desaturation while walking: NO; LOWEST SpO2 95% at 2 min; post-test SpO2 98%. - Dyspnea: SLIGHT, highest Mod. Shay Dyspnea Scale Score: 1/10. IMPRESSION: Exercise limitation: NO MILD. Required or Qualified for Oxygen Supplementation: NO. - 08/14/2024 PFT: - Spirometry - SEVERE [...] - 07/08/2024 CBC Satisfactory, EOS 400. - 08/15/2024 CT Chest w/o contrast reviewed: [...] 3 months to monitor, 11/12/24 - CT CHEST WITHOUT CONTRAST, 10/29/2024 IMPRESSION: Interval resolution of small reticulonodular densities [...] lobe of the liver and left kidney. --- ffup CT 12 mos 10/29/25 - 08/15/2024 Echocardiogram reviewed: Normal left, right heart function (LVEF 65%, mild diastol dysfunction). No pulm. hypertension. - 04/06/24 CXR (ER visit dizziness): nonacute; hyperinflation and mild incr lung markings. - 01/23/24 Echocardiogram Conclusion Mild concentric left ventricular hypertrophy. Mild [...] to mild tricuspid regurgitation. No pulmonary hypertension. - 10/31/23 NM EXAM: Nuclear Stress Test Imaging Protocol: [...] with artifact. No definitive ischemia or scar. - 08/23/23 CTPE: nonacute; mild emphysematous changes, central bronchial thickening. IMPRESSION:No evidence of pulmonary embolus or acute intrathoracic abnormality. No follow-ups on file. CT 10/29/25 w/ PFT FOLLOW-UP Patient was advised to call with any questions or concerns. If symptoms worsen or fail to improve patient was advised to call for follow up in our office and/or PCP, or go to the Emergency Dept. Benefits, Risks, Contraindications, and Complications of recommended treatments were explained (and to call if prescriptions are not feasible); and the patient stated understanding and agreement to proceed with plan. 11/05/2024: I reviewed selected chart notes, results, interpreted tests, imaging today before seeing the pt; interviewing and examining pt; reviewed and discussed w/ pt, questions answered; counselling/educating pt/family/caregiver; ordering meds/tests as appropriate; documenting clinical information in the chart. Some Elements copied from previous notes. I have updated where appropriate, and all reflect current medical decision making from today's encounter. Note: This dictation was generated using voice recognition software. Please excuse any typographical, grammatical or spelling errors that may have occurred using the system Note to patient: The Cures Act makes medical notes like these available to patients in the interest of transparency. However, be advised this is a medical document. It is intended as [id number] communication. It is written in medical language and may contain abbreviations or verbiage that are unfamiliar. It may appear blunt or direct. Medical documents are intended to carry relevant information, facts as evident, and the clinical opinion of the practitioner. Stefan Ambrose MD, MPH, [facility] Pulmonary/Critical Care Medicine [facility] 11/05/2024 documented in this encounter [facility] 10-08-2024 Note General Surgery Offi ce/Clinic Note Chief Complaint consultation for rectal bleeding HPI Staff 74 year old male presents on consultation from Dr. Rodriguez for rectal bleeding. Reports several month history of intermittent bleeding. Reports blood is bright red and only with bowel movements. He is unsure if there is blood in toilet water. Verbalized there is blood in stool. Denies rectal pain. Reports occasional abdominal pain and nausea. Denies vomiting or unexplained weight loss. Never had colonoscopy in the past. No known family history of colon cancer. History of Present Illness 74 yo male with h/o COPD, GERD, inclusion body myositis, tobacco abuse, referred for rectal bleeding; patient reports several month h/o blood mixed in stools, hematochezia, with almost every bm; no pain; no N/V or wt loss; no abd complaints; no abd operations or previous colonoscopy; no asa or NSAID use; smokes daily; fmhx of Crohn's disease, no fmhx of GI malignancy. Review of Systems PHQ Score Initial Depression Screen Score: 0 SCORE ROS - Provider Constitutional: no fever, no sweats, no weight loss. Eyes: no glasses, no blurred vision, no visual loss. ENMT: no dentures, no hoarseness, no swallowing difficulties, no hearing loss, no ear infection(s), no nose bleeds. Cardiovascular: normal blood pressure, no chest pain, regular heartbeat, no heart murmur. Respiratory: no shortness of breath, no cough, no asthma, no wheezing. Gastrointestinal: no nausea, no vomiting, no diarrhea, no constipation, yes blood in stool, no change in bowel habits, no abdominal pain, no hepatitis. Genitourinary: no kidney stones, no urine infection, no dysuria. Musculoskeletal: no pain, no weakness. Skin: no changing moles, no rash, no skin lumps. Neurologic: no seizures, no epilepsy, no headache. Psychiatric: no emotional or psychiatric problem. Heme/Lymph: no bleeding problems, no anemia, no blood clots, no transfusions. Allergy/Immunologic: no swollen lymph nodes/glands, no IV drug abuse. Other: Additional ROS info: Except as noted in the above Review of Systems and in the History of Present Illness, all other systems have been reviewed and are negative or noncontributory. Physical Exam Vitals & Measurements HR: 76(Peripheral) RR: 16 BP: 128/80 HT: 177.8 cm HT: 70 in WT: 94.9 kg WT: 209.218 lb BMI: 30.02 HEENT: normal conjunctiva, sclera clear, no scleral icterus, EOM intact, PERRLA, oral mucosa moist without lesions. Neck: trachea midline, no mass, symmetric, no thyromegaly or nodules, no adenopathy Respiratory: lungs expiratory wheezes, respirations non labored. Cardiovascular: regular rate and rhythm, no murmur, no pedal edema or varicosities. Gastrointestinal: soft, non distended, no tenderness, no masses, no palpable hernias, diastasis recti no, no hepatosplenomegaly; normal bs Lymphatic: no cervical adenopathy, no supraclavicular adenopathy. Musculoskeletal: normal gait, digits and nails without infection, nodes, cyanosis, clubbing. Skin: no rashes, no lesions, no ulcers, no subcutaneous nodules, induration. Psychiatric/Neuro: oriented to time, place, person, judgement normal, affect appropriate for age, insight intact, no focal deficits. Tests: , review of old records completed , Discussed surgical options, risks, and possible complications with patient. Assessment/Plan 1. Hematochezia (K92.1: Melena) plan colonoscopy under anesthesia for further evaluation, informed consent obtained. 2. Tobacco use (Z72.0: Tobacco use) We strongly recommend to quit tobacco use. Cigarette smoking harms nearly every organ of the body, causes many diseases, and reduces the health of smokers in general. Quitting smoking lowers your risk for smoking-related diseases and can add years to your life. We encourage you to visit www.smokefree.gov access to helpful resources including free telephone support. If you decide on prescription treatment to help you quit, your family doctor would be happy to provide these. Follow-up No qualifying data available Problem List/Past Medical History Ongoing Anemia BMI 30.0-30.9,adult Bradycardia Carotid artery disease Chronic obstructive pulmonary disease GERD (gastroesophageal reflux disease) Hematochezia Inclusion body myositis (IBM) Overweight Ventricular tachycardia Historical No qualifying data Procedure/Surgical History Biopsy of muscle, Cardiac catheterization, Circumcision, Closure of perforation of ear drum, Orchiectomy, Urethral stricture, Vasectomy. Medications Albuterol (Eqv-ProAir HFA), 2 inh, Inhalation, q4hr, PRN albuterol 0.083% Inh Yakelin 3 mL, 2.5 mg= 3 mL, NEB, q6hr budesonide 0.5 mg/2 mL Inh Susp, 0.5 mg= 2 mL, NEB, BID formoterol 20 mcg/2 mL inhalation solution, 20 mcg= 2 mL, Inhalation, BID Protonix 40 mg Tab-DR, 40 mg= 1 tab(s), Oral, Daily roflumilast 500 mcg oral tablet, 500 mcg= 1 tab(s), Oral, Daily Allergies ketorolac (unknown) predniSONE (Tachycardia) Social History (more content not included)... [facility] Comment on above: Result Comment: Elec tronically Signed By: OFELIA SHAH, Khanh Mathis\Date and Time Signed: 10/08/24 16:03 EDT 08-14-2024 Procedure note Associated Ord er(s): PFT COMPLETE 08/14/2024 Raul Mullen is a 73 y.o. male, Date of :1950. Dx: COPD, pulm HTN. Ht 72 in, Wt 203 lbs. Smoker: yes. Medications not listed. Pt efforts: good. Data appear acceptable and reproducible: fair. Albuterol given for postbronchodilator spirometry. Procedure: Pulmonary Function Test PFT including spirometry, spirometry with bronchodilator response, lung volumes, Diffusion capacity and Flow Volume Loop were performed during this session. Impression: - 08/14/2024 PFT: - Spirometry - SEVERE [...] pattern; No overt upper airway obstruction pattern. Please correlate clinically. SEE SCANNED PFT RESULTS FOR DETAILS. (The above report was entered in part using voice recognition medical dictation software. Although I have reviewed this report for accuracy, certain words and phrases may not be entered as intended. Please excuse typographical and grammatical errors.) [employer] [facility] 08-14-2024 Procedure note Associated Ord er(s): EXERCISE-6 MIN. WALK - 08/14/2024 6MWT: on Room Air. Dx: dyspnea - pt. walked for 6 minutes, for a distance of 1000 ft (6MWD 305 m). - Baseline SpO2 at rest on room air: 96%. - Significant oxygen desaturation while walking: NO; LOWEST SpO2 95% at 2 min; post-test SpO2 98%. - Dyspnea: SLIGHT, highest Mod. Shay Dyspnea Scale Score: 1/10. IMPRESSION: Exercise limitation: NO MILD. Required or Qualified for Oxygen Supplementation: NO. [facility] 08-14-2024 Procedure note Associated Ord er(s): PFT COMPLETE 08/14/2024 Raul Mullen is a 73 y.o. male, Date of :1950. Dx: COPD, pulm HTN. Ht 72 in, Wt 203 lbs. Smoker: yes. Medications not listed. Pt efforts: good. Data appear acceptable and reproducible: fair. Albuterol given for postbronchodilator spirometry. Procedure: Pulmonary Function Test PFT including spirometry, spirometry with bronchodilator response, lung volumes, Diffusion capacity and Flow Volume Loop were performed during this session. Impression: - 08/14/2024 PFT: - Spirometry - SEVERE [...] pattern; No overt upper airway obstruction pattern. Please correlate clinically. SEE SCANNED PFT RESULTS FOR DETAILS. (The above report was entered in part using voice recognition medical dictation software. Although I have reviewed this report for accuracy, certain words and phrases may not be entered as intended. Please excuse typographical and grammatical errors.) Associated Order(s): EXERCISE-6 MIN. WALK - 08/14/2024 6MWT: on Room Air. Dx: dyspnea - pt. walked for 6 minutes, for a distance of 1000 ft (6MWD 305 m). - Baseline SpO2 at rest on room air: 96%. - Significant oxygen desaturation while walking: NO; LOWEST SpO2 95% at 2 min; post-test SpO2 98%. - Dyspnea: SLIGHT, highest Mod. Shay Dyspnea Scale Score: 1/10. IMPRESSION: Exercise limitation: NO MILD. Required or Qualified for Oxygen Supplementation: NO. documented in this encounter [facility] 08-06-2024 History of Presen t illness Narrative HISTORY OF PRESENT ILLNESS- Raul Mullen is a 73 y.o. male who comes in with the following complaint(s): Dysphagia Has trouble swallowing, does choke at times. Has lumps in throat. Voice is changing ENT History & Physical Chief Complaint: New Patient (Dysphagia ) Referring Provider: Stefan Goel MD HPI: Raul Mullen is a 73 y.o. male who presents with dysphonia and dysphagia. He has a history of COPD, dyspnea, and pneumonia and is a smoker. He has smoked for over 60 years but has cut down to 4-5 cigarettes a day. He has noticed difficulty swallowing and frequently needs water to help him swallow. He also notes changes in his voice over time. This has been going on for months. In certain head positions he feels like his throat gets choked off and he can't breathe. Patient does note history of GERD and allergic rhinitis. He has had a right tympanoplasty in the past and also reports a rare muscle disease. The following areas of the chart have been personally reviewed: Tobacco Allergies Meds Problems Med Hx Surg Hx Fam Hx Review of Systems: General: Negative Eyes: Negative ENT: Per HPI Heart: Negative Respiratory: Negative GI: Negative : Negative Skin: Negative Neuro: Negative Psych: Negative Endocrine: Negative Heme/lymph: Negative Past Medical History: Past Medical History: Diagnosis Date COPD (chronic obstructive pulmonary disease) Past Surgical History: No past surgical history on file. Medications: Current Outpatient Medications Medication Sig albuterol (2.5 MG/3ML) 0.083% inhalation solution Take 3 mL by nebulization every 6 hours as needed for Shortness of Breath. albuterol 108 (90 Base) MCG/ACT Aero Soln inhaler Inhale 1 puff every 6 hours as needed for Shortness of Breath. Amoxicillin-clavulanate 875-125 MG tablet Take 1 tablet by mouth 2 times daily. budesonide 0.5 MG/2ML nebulizer suspension Inhale 2 mL 2 times daily. oeqqwzurok-jdnolhmacrdniw-Dglepsg rol (Breztri Aerosphere) 160-9-4.8 MCG/ACT Aerosol inhaler Inhale 2 puffs 2 times daily. GARGLE, RINSE MOUTH AFTER USE necilfuvulo-zcfrtmuat-Bcdter (Trelegy Ellipta) 100-62.5-25 MCG/ACT Aerosol Powder, breath activated inhaler Inhale 1 puff daily. formoterol (Perforomist) 20 MCG/2ML Nebu Soln nebulizer solution Take 2 mL by nebulization 2 times daily. Ipratropium-albuterol 0.5-2.5 (3) MG/3ML nebulizer solution Take 3 mL by nebulization every 4 hours as needed for Wheezing, Shortness of Breath, Breathing Treatment or Cough. mometasone Furo-Formoterol Fum 200-5 MCG/puff Aerosol Inhale 2 puffs every 12 hours. Ondansetron 4 MG Tab Dispersible tablet Take 1 tablet by mouth every [address] on tongue roflumilast (Daliresp) 500 MCG tablet Take 1 tablet by mouth daily. TAKE 1 TABLET EVERY OTHER DAY FOR 2 WEEKS, THEN 1 TABLET DAILY SPACER FOR INHALER PRESCRIPTION Use with inhaler as directed SPACER FOR INHALER PRESCRIPTION Use with inhaler as directed theophylline 300 MG Tab SR 12 HR TAKE 1 TABLET BY MOUTH TWICE DAILY GIVE ON AN EMPTY STOMACH. DO NOT CRUSH OR CHEW Allergies: Allergies Allergen Reactions Ketorolac Nausea and Vomiting nausea vomiting Ascorbate Hives Large doses per pt Metoprolol Tartrate [Metoprolol] Nausea and Vomiting and Dizzy/Vertigo Prednisone ALL STEROIDS Other reaction(s): Intolerance Cardiac reaction per pt Family History: Family History Problem Relation Age of Onset Heart Failure Father Social History: Social History Tobacco Use Smoking status: Every Day Current packs/day: 0.50 Types: Cigarettes Smokeless tobacco: Never Vaping Use Vaping status: Never Used Substance Use Topics Alcohol use: Never Drug use: Never Objective: Vitals: 08/06/24 1330 Temp: 98.2 F (36.8 C) General: No acute distress Head: Normocephalic, atraumatic Face: Bilateral symmetric movement, sensation intact Eyes: Extraocular movements intact, no scleral icterus Ears: No external deformity Nose: Nasal cavities patent, no lesions Mouth: Moist mucous membranes, no lesions Neck: Supple, nontender, no lymphadenopathy Cardiovascular: Intact peripheral perfusion Pulmonary: Equal chest rise, nonlabored respirations, no stridor Skin: Warm and dry, no lesions of the head and neck Neuro: Alert and oriented, no cranial nerve deficits Psych: Normal affect Flexible fiberoptic videostroboscopy findings (for procedure details, see separately dictated procedure note): Findings: Nasal Cavity: no masses or lesions, pink mucosa; septum deviated to the left Nasopharynx: no masses or lesions, pink mucosa Oropharynx: no masses or lesions, base of tongue clear of lesions Supraglottis: no masses or lesions Piriforms: there is no pooling of secretions in the piriform sinuses Subglottis: visualized subglottis is broadly patent Stroboscopy: Supraglottic effort: Normal Arytenoid symmetry: L=R Arytenoid position: Normal Amplitude: Normal Glottic closure: Complete Periodicity: Regular Mucosal wave: Normal with 30-50% lateral travel Phase symmetry: Symmetric Vocal folds: No lesions, bowed edges Vocal fold mobility: Intact bilaterally Assessment and Plan: Raul was seen today for new patient. 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 We discussed possible treatment options including [employer] evaluation and swallow therapy, versus treatment of allergic rhinitis or GERD. He may also benefit from voice therapy if his voice is bothersome. -- Patient prefers to defer on the above options and will call if any changes -- RTC PRN Duy Mas MD documented in this encounter [facility] 08-06-2024 Note Duy Mas MD 2:04 PM Procedure: Flexible fiberoptic videostroboscopy (CPT 08612) Performed by: Duy Mas MD Pre-procedure diagnosis: Dysphonia Post-procedure diagnosis: Same Description: After obtaining informed consent, the patient was positioned seated upright. The flexible fiberoptic scope was passed atraumatically through the nasal cavity and nasopharynx to obtain a view of the larynx. Videostroboscopy was performed. The findings are as described below. The flexible scope was removed. The patient tolerated the procedure well and I performed the procedure myself. Findings: Nasal Cavity: no masses or lesions, pink mucosa; septum deviated to the left Nasopharynx: no masses or lesions, pink mucosa Oropharynx: no masses or lesions, base of tongue clear of lesions Supraglottis: no masses or lesions Piriforms: there is no pooling of secretions in the piriform sinuses Subglottis: visualized subglottis is broadly patent Stroboscopy: Supraglottic effort: Normal Arytenoid symmetry: L=R Arytenoid position: Normal Amplitude: Normal Glottic closure: Complete Periodicity: Regular Mucosal wave: Normal with 30-50% lateral travel Phase symmetry: Symmetric Vocal folds: No lesions, bowed edges Vocal fold mobility: Intact bilaterally [facility] 08-06-2024 Procedure note Associated Ord er(s): ID LARYNGOSCOPY FLX/RGD TELESCOPIC W/STROBOSCOPY Procedure: Flexible fiberoptic videostroboscopy (CPT 83452) Performed by: Duy Mas MD Pre-procedure diagnosis: Dysphonia Post-procedure diagnosis: Same Description: After obtaining informed consent, the patient was positioned seated upright. The flexible fiberoptic scope was passed atraumatically through the nasal cavity and nasopharynx to obtain a view of the larynx. Videostroboscopy was performed. The findings are as described below. The flexible scope was removed. The patient tolerated the procedure well and I performed the procedure myself. Findings: Nasal Cavity: no masses or lesions, pink mucosa; septum deviated to the left Nasopharynx: no masses or lesions, pink mucosa Oropharynx: no masses or lesions, base of tongue clear of lesions Supraglottis: no masses or lesions Piriforms: there is no pooling of secretions in the piriform sinuses Subglottis: visualized subglottis is broadly patent Stroboscopy: Supraglottic effort: Normal Arytenoid symmetry: L=R Arytenoid position: Normal Amplitude: Normal Glottic closure: Complete Periodicity: Regular Mucosal wave: Normal with 30-50% lateral travel Phase symmetry: Symmetric Vocal folds: No lesions, bowed edges Vocal fold mobility: Intact bilaterally [facility] 08-06-2024 Procedure note Associated Ord er(s): ID LARYNGOSCOPY FLX/RGD TELESCOPIC W/STROBOSCOPY Procedure: Flexible fiberoptic videostroboscopy (CPT 13708) Performed by: Duy Mas MD Pre-procedure diagnosis: Dysphonia Post-procedure diagnosis: Same Description: After obtaining informed consent, the patient was positioned seated upright. The flexible fiberoptic scope was passed atraumatically through the nasal cavity and nasopharynx to obtain a view of the larynx. Videostroboscopy was performed. The findings are as described below. The flexible scope was removed. The patient tolerated the procedure well and I performed the procedure myself. Findings: Nasal Cavity: no masses or lesions, pink mucosa; septum deviated to the left Nasopharynx: no masses or lesions, pink mucosa Oropharynx: no masses or lesions, base of tongue clear of lesions Supraglottis: no masses or lesions Piriforms: there is no pooling of secretions in the piriform sinuses Subglottis: visualized subglottis is broadly patent Stroboscopy: Supraglottic effort: Normal Arytenoid symmetry: L=R Arytenoid position: Normal Amplitude: Normal Glottic closure: Complete Periodicity: Regular Mucosal wave: Normal with 30-50% lateral travel Phase symmetry: Symmetric Vocal folds: No lesions, bowed edges Vocal fold mobility: Intact bilaterally documented in this encounter [facility] 07-08-2024 Evaluation + Plan note Associated Problem(s): Nicotine dependence, cigarettes, with unspecified nicotine-induced disorders Smoking Cessation Counseling (including rationale, help that [...] target Quit date in around 3 months [facility] 07-08-2024 Miscellaneous Notes Associated Problem(s): Nicotine dependence, cigarettes, with unspecified nicotine-induced disorders Smoking Cessation Counseling (including rationale, help that [...] target Quit date in around 3 months Associated Problem(s): Secondary pulmonary arterial hypertension May develop secondary Pulmonary Hypertension related to cardiopulmonary disease (WHO Grp 3, 2). - monitor Echocardiogram as indicated - consider RHC Right heart catheterization, as indicated - optimize underlying conditions - consider sleep study, as indicated - also seen by Cardiol. prev. Associated Problem(s): Chronic obstructive pulmonary disease - Smoker; hx of COPD; episodic dyspnea, [...] Influenza, pneumococcal, COVID19, pulmonary vaccines recommended, updated Associated Problem(s): Pulmonary scarring Chest radiograph w/ some increased lung markings; possible element of Interstitial lung disease ILD, likely mild focal postinflammatory scarring - CT Chest - monitor chest imaging, PFT, 6mwt prn, as indic - further evaluation, management pending results, clinical course. documented in this encounter [facility] 07-08-2024 Evaluation + Plan note Associated Problem(s): Secondary pulmonary arterial hypertension May develop secondary Pulmonary Hypertension related to cardiopulmonary disease (WHO Grp 3, 2). - monitor Echocardiogram as indicated - consider RHC Right heart catheterization, as indicated - optimize underlying conditions - consider sleep study, as indicated - also seen by Cardiol. prev. [facility] 07-08-2024 Evaluation + Plan note Associated Problem(s): Chronic obstructive pulmonary disease - Smoker; hx of COPD; episodic dyspnea, [...] Influenza, pneumococcal, COVID19, pulmonary vaccines recommended, updated [facility] 07-08-2024 Evaluation + Plan note Associated Problem(s): Pulmonary scarring Chest radiograph w/ some increased lung markings; possible element of Interstitial lung disease ILD, likely mild focal postinflammatory scarring - CT Chest - monitor chest imaging, PFT, 6mwt prn, as indic - further evaluation, management pending results, clinical course. [facility] 07-08-2024 History of Presen t illness Narrative Currently smoking or Hx of smoking - everyday (5-6 ) Oxygen use _ no patient is benefiting from oxygen use. Do you have a CPAP- no DME company- n/a Most recent CT- n/a Most recent PFT- n/a Symptoms include: SOB, coughing, wheezing, tightness, pressure and pain in chest Increase in shortness of breath- yes Dyspnea upon exertion- yes Dyspnea at rest- yes Cough- productive- yes Have you had the Covid 19 vaccine-no Do you need a Medication refill? Pt presents for review of SOB, chronic Bronchitis Maintenance medication - none Maintenance inhaler-Dulera Rescue medication-albuterol 108 (90 Base) MCG/ACT Aero Soln inhaler (ProAir) albuterol (2.5 MG/3ML) 0.083% inhalation solution New patient referred by Dr. Edgar to review SOB, chronic bronchitis Patient is a 73 y.o. male who came to be evaluated and managed for COPD, dypsnea, bronchospasm Shortness of Breath . ICD-10-CM 1. Chronic obstructive pulmonary disease, unspecified COPD type J44.9 ALPHA 1 ANTITRYPSIN CBC, EDIF, PLATELET IMMUNOGLOBULIN IGE ALLERGEN PROFILE, MOLD MINI-PANEL ALLERGEN PROFILE EXERCISE-6 MIN. WALK PFT COMPLETE OVERNIGHT PULSE OXIMETRY TEST SPACER FOR INHALER PRESCRIPTION ocousuzems-kflimilnjljhnf-Wzeacan rol (Breztri Aerosphere) 160-9-4.8 MCG/ACT Aerosol inhaler formoterol (Perforomist) 20 MCG/2ML Nebu Soln nebulizer solution Ipratropium-albuterol 0.5-2.5 (3) MG/3ML nebulizer solution budesonide 0.5 MG/2ML nebulizer suspension SPACER FOR INHALER PRESCRIPTION roflumilast (Daliresp) 500 MCG tablet dexAMETHasone 4 MG tablet DISCONTINUED: ssrjrkndbrs-ksibvuotm-Atgnxp (Trelegy Ellipta) 100-62.5-25 MCG/ACT Aerosol Powder, breath activated inhaler 2. Secondary pulmonary arterial hypertension I27.21 EXERCISE-6 MIN. WALK PFT COMPLETE ECHOCARDIOGRAM OVERNIGHT PULSE OXIMETRY TEST 3. Pulmonary scarring J98.4 CT CHEST WITHOUT CONTRAST EXERCISE-6 MIN. WALK PFT COMPLETE OVERNIGHT PULSE OXIMETRY TEST 4. Nicotine dependence, cigarettes, with unspecified nicotine-induced disorders F17.219 ID TOBACCO USE CESSATION INTERMEDIATE 3-10 MINUTES 5. Reactive airway disease without complication, unspecified asthma severity, unspecified whether persistent J45.909 ALPHA 1 ANTITRYPSIN CBC, EDIF, PLATELET IMMUNOGLOBULIN IGE ALLERGEN PROFILE, MOLD MINI-PANEL ALLERGEN PROFILE EXERCISE-6 MIN. WALK PFT COMPLETE OVERNIGHT PULSE OXIMETRY TEST SPACER FOR INHALER PRESCRIPTION SPACER FOR INHALER PRESCRIPTION DISCONTINUED: rmzcmteyvpm-dvkdqhnea-Xmljtf (Trelegy Ellipta) 100-62.5-25 MCG/ACT Aerosol Powder, breath activated inhaler Problem List Items Addressed This Visit Secondary pulmonary arterial hypertension May develop secondary Pulmonary Hypertension related to cardiopulmonary disease (WHO Grp 3, 2). - monitor Echocardiogram as indicated - consider RHC Right heart catheterization, as indicated - optimize underlying conditions - consider sleep study, as indicated - also seen by Cardiol. prev. Relevant Orders EXERCISE-6 MIN. WALK PFT COMPLETE ECHOCARDIOGRAM OVERNIGHT PULSE OXIMETRY TEST Pulmonary scarring Chest radiograph w/ some increased lung markings; possible element of Interstitial lung disease ILD, likely mild focal postinflammatory scarring - CT Chest - monitor chest imaging, PFT, 6mwt prn, as indic - further evaluation, management pending results, clinical course. Relevant Orders CT CHEST WITHOUT CONTRAST EXERCISE-6 MIN. WALK PFT COMPLETE OVERNIGHT PULSE OXIMETRY TEST Chronic obstructive pulmonary disease - Primary - Smoker; hx of COPD; episodic dyspnea, [...] Influenza, pneumococcal, COVID19, pulmonary vaccines recommended, updated Relevant Medications SPACER FOR INHALER PRESCRIPTION hhbxhmzrrd-ugkpkipuhnsllu-Nriding rol (Breztri Aerosphere) 160-9-4.8 MCG/ACT Aerosol inhaler formoterol (Perforomist) 20 MCG/2ML Nebu Soln nebulizer solution Ipratropium-albuterol 0.5-2.5 (3) MG/3ML nebulizer solution budesonide 0.5 MG/2ML nebulizer suspension SPACER FOR INHALER PRESCRIPTION roflumilast (Daliresp) 500 MCG tablet dexAMETHasone 4 MG tablet Other Relevant Orders ALPHA 1 ANTITRYPSIN CBC, EDIF, PLATELET IMMUNOGLOBULIN IGE ALLERGEN PROFILE, MOLD MINI-PANEL ALLERGEN PROFILE EXERCISE-6 MIN. WALK PFT COMPLETE OVERNIGHT PULSE OXIMETRY TEST Nicotine dependence, cigarettes, with unspecified nicotine-induced disorders Smoking Cessation Counseling (including rationale, help that [...] target Quit date in around 3 months Relevant Orders ID TOBACCO USE CESSATION INTERMEDIATE 3-10 MINUTES Other Visit Diagnoses Reactive airway disease without complication, unspecified asthma severity, unspecified whether persistent Relevant Medications SPACER FOR INHALER PRESCRIPTION SPACER FOR INHALER PRESCRIPTION Other Relevant Orders ALPHA 1 ANTITRYPSIN CBC, EDIF, PLATELET IMMUNOGLOBULIN IGE ALLERGEN PROFILE, MOLD MINI-PANEL ALLERGEN PROFILE EXERCISE-6 MIN. WALK PFT COMPLETE OVERNIGHT PULSE OXIMETRY TEST [facility] 07/08/24 - Smoker; hx of COPD; episodic dyspnea, trejo, occ wheezing/cough; hx of bronchitis and PNA prev.; as per records; was on Albuterol inh and neb., Dulera, Theophylline prev. Current Outpatient Medications: albuterol (2.5 MG/3ML) 0.083% inhalation solution, Take 3 mL by nebulization every 6 hours as needed for Shortness of Breath., Disp: , Rfl: albuterol 108 (90 Base) MCG/ACT Aero Soln inhaler, Inhale 1 puff every 6 hours as needed for Shortness of Breath., Disp: , Rfl: mometasone Furo-Formoterol Fum 200-5 MCG/puff Aerosol, Inhale 2 puffs every 12 hours., Disp: , Rfl: Ondansetron 4 MG Tab Dispersible tablet, Take 1 tablet by mouth every [address] on tongue, Disp: 14 tablet, Rfl: 0 theophylline 300 MG Tab SR 12 HR, TAKE 1 TABLET BY MOUTH TWICE DAILY GIVE ON AN EMPTY STOMACH. DO NOT CRUSH OR CHEW, Disp: , Rfl: Past Medical History: Diagnosis Date COPD (chronic obstructive pulmonary disease) No past surgical history on file. Social History Tobacco Use Smoking status: Every Day Current packs/day: 0.50 Types: Cigarettes Smokeless tobacco: Never Substance Use Topics Alcohol use: Never No family history on file. Allergies Allergen Reactions Ketorolac Nausea and Vomiting nausea vomiting Ascorbate Hives Large doses per pt Metoprolol Tartrate [Metoprolol] Nausea and Vomiting and Dizzy/Vertigo Prednisone ALL STEROIDS Other reaction(s): Intolerance Cardiac reaction per pt Review of Systems Respiratory: Positive for shortness of breath. Currently smoking or Hx of smoking - everyday (5-6 ) Oxygen use _ no patient is benefiting from oxygen use. Do you have a CPAP- no DME company- n/a Most recent CT- n/a Most recent PFT- n/a Symptoms include: SOB, coughing, wheezing, tightness, pressure and pain in chest Increase in shortness of breath- yes Dyspnea upon exertion- yes Dyspnea at rest- yes Cough- productive- yes Have you had the Covid 19 vaccine-no Do you need a Medication refill? Pt presents for review of SOB, chronic Bronchitis Maintenance medication - none Maintenance inhaler-Dulera Rescue medication-albuterol 108 (90 Base) MCG/ACT Aero Soln inhaler (ProAir) albuterol (2.5 MG/3ML) 0.083% inhalation solution New patient referred by Dr. Edgar to review SOB, chronic bronchitis Vitals: 07/08/24 1352 BP: 142/78 Pulse: 69 Resp: 18 SpO2: 96% Weight: 92.3 kg (203 lb 6.4 oz) Height: 1.829 m (6') Vital Signs Reviewed as noted. Physical Exam Vitals and nursing note reviewed. Constitutional: General: He is not in acute distress. Appearance: He is not ill-appearing. HENT: Head: Normocephalic and atraumatic. Right Ear: External ear normal. Left Ear: External ear normal. Nose: Nose normal. Mouth/Throat: Mouth: Mucous membranes are moist. Pharynx: Oropharynx is clear. No oropharyngeal exudate or posterior oropharyngeal erythema. Eyes: General: No scleral icterus. Neck: Vascular: No JVD. Trachea: No tracheal deviation. Cardiovascular: Rate and Rhythm: Regular rhythm. Heart sounds: Normal heart sounds. Pulmonary: Effort: Pulmonary effort is normal. No respiratory distress. Breath sounds: No stridor. Rhonchi present. No wheezing or rales. Chest: Chest wall: No tenderness. Genitourinary: Comments: Deferred Musculoskeletal: Cervical back: Neck supple. Right lower leg: No edema. Left lower leg: No edema. Lymphadenopathy: Cervical: No cervical adenopathy. Skin: General: Skin is warm and dry. Coloration: Skin is not jaundiced. Neurological: Mental Status: He is alert and oriented to person, place, and time. Psychiatric: Mood and Affect: Mood normal. Behavior: Behavior normal. I personally reviewed selected chart notes, results, interpreted tests, imaging today before seeing the pt; reviewed and discussed w/ pt, questions answered - 04/06/24 CXR (ER visit dizziness): nonacute; hyperinflation and mild incr lung markings. - 01/23/24 Echocardiogram Conclusion Mild concentric left ventricular hypertrophy. Mild [...] to mild tricuspid regurgitation. No pulmonary hypertension. - 10/31/23 NM EXAM: Nuclear Stress Test Imaging Protocol: [...] with artifact. No definitive ischemia or scar. - 08/23/23 CTPE: nonacute; mild emphysematous changes, central bronchial thickening. IMPRESSION:No evidence of pulmonary embolus or acute intrathoracic abnormality. Return in about 12 weeks (around 09/30/2024). FOLLOW-UP Patient was advised to call with any questions or concerns. If symptoms worsen or fail to improve patient was advised to call for follow up in our office and/or PCP, or go to the Emergency Dept. Benefits, Risks, Contraindications, and Complications of recommended treatments were explained (and to call if prescriptions are not feasible); and the patient stated understanding and agreement to proceed with plan. 07/08/2024: I spent 64 mins: reviewed selected chart notes, results, interpreted tests, imaging today before seeing the pt; interviewing and examining pt; reviewed and discussed w/ pt, questions answered; counselling/educating pt/family/caregiver; ordering meds/tests as appropriate; documenting clinical information in the chart. Some Elements copied from previous notes. I have updated where appropriate, and all reflect current medical decision making from today's encounter. Note: This dictation was generated using voice recognition software. Please excuse any typographical, grammatical or spelling errors that may have occurred using the system Note to patient: The 21st Century Cures Act makes medical notes like these available to patients in the interest of transparency. However, be advised this is a medical document. It is intended as rtum-ug-aaqk communication. It is written in medical language and may contain abbreviations or verbiage that are unfamiliar. It may appear blunt or direct. Medical documents are intended to carry relevant information, facts as evident, and the clinical opinion of the practitioner. Stefan Ambrose MD, MPH, [facility] Pulmonary/Critical Care Medicine [facility] 07/08/2024 documented in this encounter [facility] 04-06-2024 Emergency department Note Discharge instruction given to the pt and family, reminded to pickling grader prescription at the pharmacy. Pt and family voice understood. Pt ambulates out of the ED with steady gait [facility] 04-06-2024 Emergency department Note Discharge instruction given to the pt and family, reminded to pickling grader prescription at the pharmacy. Pt and family voice understood. Pt ambulates out of the ED with steady gait [facility]. Emergency Department Report [facility] EMERGENCY DEPARTMENT Service Date:.04/06/24 PCP: Dez Rodriguez Chief Complaint: Chief Complaint Patient presents with Fatigue Dizziness Pt reports that for 30 minutes he has been feeling weak, dizzy, shakey and sweaty. He is seeing a cadmium liquor maker for an afib work up per pt HPI Raul Mullen is a 73 y.o. male presents to [...] pain. He states he was seeing a cadmium liquor maker as there was some concern that he [...] above information. . Marisa Martinez MD 04/06/241651 documented in this encounter [facility] 04-06-[address] Martinez at [facility]. [facility] 04-06-2024 Physician Emergency department Note Emergency Department Report [facility] EM[facility]GENCY DEPARTMENT Service Date:.04/06/24 PCP: Dez Rodriguez Chief Complaint: Chief Complaint Patient presents with Fatigue Dizziness Pt reports that for 30 minutes he has been feeling weak, dizzy, shakey and sweaty. He is seeing a cadmium liquor maker for an afib work up per pt HPI Raul Mullen is a 73 y.o. male presents to [...] pain. He states he was seeing a cadmium liquor maker as there was some concern that he [...] information. . Marisa Martinez MD 04/06/24 165 [facility] 12-21-2023 Hospital Discharg e instructions Lopez Dubose MD - 12/21/2023 2:21 AM EDT Continue present medications. Call Dr. Mendoza office tomorrow morning and arrange for follow-up. Dial 911 or return to the ER immediately if you develop recurrence of chest pain or feel worse in any way. The following attachments cannot be sent through Care Everywhere.Pain and Pain Control ([facility]) ([place])Chest Pain ([place])Chronic Obstructive Pulmonary Disease (COPD) ([facility]) ([place])documented in this encounter [facility] 12-21-2023 Physician Emergency department Note Emergency Room Note [facility] EM[facility]GENCY DEPARTMENT Service Date:.12/21/23 PCP: Dez Rodriguez Chief Complaint: Chief Complaint Patient presents with Chest Pain Left sided chest pain 10/10 while watching tv tonight, reports better now HPI Raul Mullen is a 73 y.o. male presents to [...] Sinus rhythm at 84 beats per minute. [place] is normal. ID interval is 146 milliseconds. QRS duration is [...] information. . Lopez Dubose MD 12/21/23 0223 [facility] 12-21-2023 Emergency department Note Emergency Room Note [facility] EM[facility]GENCY DEPARTMENT Service Date:.12/21/23 PCP: Dez Rodriguez Chief Complaint: Chief Complaint Patient presents with Chest Pain Left sided chest pain / while watching tv tonight, reports better now HPI Raul Mullen is a 73 y.o. male presents to [...] (6') 87.3 kg (192 lb 8 oz) 12/21/2333 162/79 97.8 F (36.6 C) Oral 81 16 97 % -- -- EKG: Sinus rhythm at 84 beats per minute. [place] is normal. ID interval is 146 milliseconds. QRS duration is [...] MD 12/21/23 0223 documented in this encounter [facility] 12-07-2023 Physician Emergency department Note Emergency Department Report [facility] EM[facility]GENCY DEPARTMENT Service Date:.12/07/23 PCP: Dez Manoj Rodriguez Chief Complaint: Chief Complaint Patient presents [...] raised bump. Pt denies fevers. HPI Raul Mullen is a 73 y.o. male presents to [...] Use Authorization (EUA) for the qualitative detection [id number] nucleic acid. TROPONIN I, HIGH SENSITIVITY Result [...] rhythm, ventricular rate 90 beats per minute, ID interval 134 milliseconds, QRS duration 80 millisecond, [...] . . Tonny Alves MD 12/07/23 0526 [facility] 12-07-2023 Emergency department Note Emergency Department Report [facility] EM[facility]GENCY DEPARTMENT Service Date:.12/07/23 PCP: Dez Rodriguez [...] raised bump. Pt denies fevers. HPI Raul Mullen is a 73 y.o. male presents to [...] Use Authorization (EUA) for the qualitative detection [id number] nucleic acid. TROPONIN I, HIGH SENSITIVITY Result [...] rhythm, ventricular rate 90 beats per minute, ID interval 134 milliseconds, QRS duration 80 millisecond, [...] at this time. documented in this encounter [facility] 12-07-2023 Emergency department Note Respiratory called at this time. [facility] 08-23-2023 Emergency department Note Pt alert, oriented, NAD, pt discharge instructions reviewed, follow up care encouraged, pt wheeled into RM 15 with pt family member, room air. [facility] 08-23-2023 Emergency department Note Pt [...] new symptoms. Diagnosis: Acute exacerbation of COPD. Khanh Tovar MD 08/23/231947 Report given to YOLY Pettit Emergency Department Report [facility] EMERGENCY DEPARTMENT Service Date:.08/23/23 PCP: Dez Rodriguez Chief Complaint: Chief Complaint Patient presents with Shortness of Breath Cough started last Monday. Now C/O SOB, nausea, tachycardia with activity, and chest tightness. HPI Raul Mullen is a 73 y.o. male presents to [...] Use Authorization (EUA) for the qualitative detection [id number] nucleic acid. CBC, EDIF, PLATELET Result Value [...] STEMI rate of 73 beats per minute. ID interval 130 milliseconds. When compared to most [...] with above information. . Marisa Martinez MD 08/23/230 documented in this encounter [facility] 08-23-2023 Emergency department Note Patient alerta nd eating on the bed, awaiting dc [facility] 08-23-2023 Physician Emergency department Note [...] new symptoms. Diagnosis: Acute exacerbation of COPD. Khanh Tovar MD 08/23/231947 [facility] 08-23-2023 Emergency department Note Report given to YOLY Pettit [facility] 08-23-2023 Physician Emergency department Note Emergency Department Report [facility] EMERGENCY DEPARTMENT Service Date:.08/23/23 PCP: Dez Rodriguez Chief Complaint: Chief Complaint Patient presents with Shortness of Breath Cough started last Monday. Now C/O SOB, nausea, tachycardia with activity, and chest tightness. HPI Raul Mullen is a 73 y.o. male presents to [...] Use Authorization (EUA) for the qualitative detection [id number]-9 nucleic acid. CBC, EDIF, PLATELET Result Value [...] STEMI rate of 73 beats per minute. ID interval 130 milliseconds. When compared to most [...] above information. . Marisa Martinez MD 08/23/231809 [facility] Work Phone: 08-02-2021 Miscellaneous Notes Discharge education [...] Clarified with pharmacy as well as KEVIN PA states to give steroid as ordered. Previous assessment unchanged. Pt resting in bed, denies needs at this time. documented in this encounter [facility] 08-02-2021 Hospital Discharg e instructions Huan Hoover PA-C - 08/02/2021 2:41 PM EST AAT Huan Hoover PA-C - 08/02/2021 2:41 PM EST AAT The following attachments cannot be sent through Care Everywhere.Coronavirus Disease (COVID-19): Caring for Yourself: Quick List ([place])documented in this encounter [facility] 08-02-2021 Hospital course Narrative Images from the original note were not included. Discharge Summary Summary Time: 08/02/21 2:41 PM Name: Raul Mullen Age: 70 y.o. Birthday: 1950 Admit Date: 07/31/2021 11:23 AM Discharge Date: 08/02/2021 Brief Summary of Hospital Course: Patient is a 70 y.o. male presents to [facility] for evaluation of shortness of breath. Patient [...] tolerated. Discharge Follow-up: Dez Rodriguez MD [address] [facility] [id number] In 1 week Stefan Tovar MD [address] [id number] In 1 week Discharge Disposition: Patient will be discharged in stable condition. Discharge Time: Including assessment, planning, and medication reconciliation was greater than 35 min. Huan Hoover PA-C completing Discharge Summary for Dr. Luna Please note portions of this note utilized [employer] dictation software, please excuse any typographical or grammatical errors Associated attestation - Osmin Luna MD - 08/02/2021 4:58 PM EST I have personally seen and examined Raul Mullen. I have personally reviewed all available clinical [...] clarification. Osmin Luna, MDdocumented in this encounter [facility] 08-02-2021 History of Presen t [...] with good technique with good eccentric control. JAVA TECHNICAL ARCHITECT provided pt with handout for seated HEP with pt demonstrating a good understanding. Advised pt to continue to walk periodically throughout the day to improve endurance and overall lung function. Pt remained sitting in bedsdie chair with call light left within reach. Transfer Skill: Sit To Stand, Rehab Eval Dare (Sit-Stand Transfers) independent Physical Assist/Nonphysical Assist: Sit/Stand 1 person assist Weight-Bearing Restrictions: Sit/Stand full weight-bearing Assistive Device For Transfer: Sit/Stand (none used) Gait Skills, PT Eval Level of Dare: Gait stand-by assist Physical Assist/Nonphysical Assist: Gait supervision Assistive Device For Transfer: Gait (Pt holding onto IV pole) Gait Distance (Approx 70ft total) Gait Analysis, PT Eval Gait Pattern Used swing-through gait Plan Plan for next visit Cont with LE strengthening ex, endurance, and mobility if pt not discharged Maintain frequency yes SKID STRAPPER spoke with patient to discuss discharge plans. 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 Previous Level of Function Ambulation Skills independent [...] Muscle Testing (MMT) Manual Muscle Testing Results (10/28 BLE) Mobility Additional Documentation (bed mobility Ind) Bed Mobility Skill: Supine to Sit, Rehab Eval Level of Dare: Supine/Sit independent Transfer Skill: Sit To Stand, Rehab Eval Dare (Sit-Stand Transfers) independent Gait Skills, PT Eval Level of Dare: Gait independent Physical Assist/Nonphysical Assist: Gait supervision [...] COPD and reports a baseline level of TREJO however is worse over the last week compared to his baseline. SpO2 at rest 92, HR 93. With activity SpO2 scarlett between 92-94% and HR 93-97 bpm. Although these are WFL, he should still be monitored with activity as his levels were dropping yesterday with activity according to his chart. Discharge Recommendations home with spouse at [facility] Clinical Impression Criteria for Skilled Therapeutic Interventions Met (PT Eval) yes, treatment indicated Impairments Found (PT Eval) Aerobic capacity/endurance;Ventilation and respiration/gas exchange Rehab Potential (PT Eval) good Therapy Frequency 5 times a week Today's Treatment Included activity tolerance, endurance training Goals Goal 1 Pt will be ind in HEP for activity tolerance Goal 2 Pt [...] HR with activity Therapist Information License # [id number] Dedra Boles PT 08/01/21 0926 Time In/Out [...] AROM WFL Manual Muscle Testing (MMT) Hand Inventory Checker, Right strong Hand Inventory Checker, Left strong Skin Integrity Skin Integrity Description Bruising Edema Edema none noted Bed Mobility Skill: Supine to Sit, Rehab Eval Level of Dare: Supine/Sit supervision Physical Assist/Nonphysical Assist: Supine/Sit verbal cues;1 person assist Transfer Skill: Sit to Stand, Rehab Eval Level of Dare: Sit/Stand supervision Physical Assist/Nonphysical Assist: Sit/Stand 1 person assist Weight-Bearing Restrictions: Sit/Stand full weight-bearing Transfer Skill: Stand to Sit, Rehab Eval Level of Dare: Stand/Sit supervision Physical Assist/Nonphysical Assist: Stand/Sit verbal [...] UB strengtheing HEP Therapist Information License # [id number] Pt. Will complete all toileting tasks (clothing management, hygiene, trasnfer) with MD Pt. Will complete UB/ LB dressing with MD Pt. Will complete UB/ LB bathing with MD Pt. Will complete G/H tasks standing at sink x10 minutes with good balance at MD OT will create a UB HEP with 100% reverse demonstration noted documented in this encounter [facility] 08-01-2021 History and physical note History and Physical Examination 08/01/21 1:42 PM Chief Complaint: Shortness of Breath History of Present Illness: Patient is a 70 y.o. male presents to [facility] for evaluation of shortness of breath. Patient [...] Please note Portions of this note utilized [employer] software, please excuse any typographical or grammatical errors Huan Hoover PA-C [facility] Medicine Associated attestation - Osmin Luna MD - 08/01/2021 4:33 PM EST I have personally seen and examined Raul Mullen. I have personally reviewed all available clinical [...] clarification. Osmin Luna, MDdocumented in this encounter [facility] 07-31-2021 Emergency department Note Clarissa from [facility] called. Patient is admitted to room number 3755 under OBS. Room is ready. RN. Notified. Called Dr. Luna for Garland BROWN. Ambulated length of bethea and back to room. O2 sat 95% baseline to 91% during ambulation. Tachypneic during ambulation. Emergency Department Report [facility] MED SURG Service Date:.07/31/21 PCP: Dez Rodriguez Chief Complaint: Chief Complaint Patient presents with Cough for 4-5 days. pt reports everyone in the family has COVID . Fever Generalized Body Aches Nausea Shortness of Breath HPI Raul Mullen is a 70 y.o. male presents to [...] Negative Romberg and negative pronator drift. Musculoskeletal: permastone applicator strength 2+ the upper extremities. Dorsiflexion and [...] Use Authorization (EUA) for the qualitative detection [id number]-1 nucleic acid. CBC, EDIF, PLATELET Result Value [...] : 76 AXIS : Normal INTERVALS : ID interval [address] SEGMENT CHANGES : None COMPARISON TO PRIOR : none SUMMARY : No acute ST segment elevation MD on this EKG per Dr. Trevino and [...] the bed coordinator as well as the tester/lift trucker. I will arrange hospitalization for this patient. [...] above information. . John Edwards PA-C 07/31/21 1656 documented in this encounter [facility] Evaluation note Diagnosis Multifocal pneumonia- Primary Chronic obstructive pulmonary disease with acute exacerbation Obstructive chronic bronchitis with exacerbation Tobacco abuse Tobacco use disorder Hypoalbuminemia Other disorders of plasma protein metabolism Vitamin D deficiency Unspecified vitamin D deficiency documented in this encounter [facility]* Diagnosis Pulmonary emphysema, unspecified emphysema type [facility] Abdominal pain, right upper quadrant [facility] Neck mass Swelling, mass, or lump in head and neck documented in this encounter [facility]* Diagnosis Chronic obstructive pulmonary disease, unspecified COPD type- Primary documented in this encounter [facility]* Diagnosis Dyspnea, unspecified type documented in this encounter [facility]* Diagnosis Dyspnea, unspecified type documented in this encounter [facility]* Diagnosis Shortness of breath- Primary Cellulitis of left upper extremity Cellulitis and abscess of upper arm and forearm documented in this encounter [facility]* Diagnosis Chest pain, unspecified type- Primary Chronic obstructive pulmonary disease, unspecified COPD type documented in this encounter [facility]* Diagnosis Syncope and collapse- Primary Dizziness and giddiness documented in this encounter [facility]* Diagnosis Precordial pain Palpitations Shortness of breath Syncope and collapse PAT (paroxysmal atrial tachycardia) Paroxysmal supraventricular tachycardia Atrial premature contractions Supraventricular premature beats Ventricular premature contractions Other premature beats NSVT (nonsustained ventricular tachycardia) Paroxysmal ventricular tachycardia documented in this encounter [facility]* Diagnosis Syncope and collapse Dizziness and giddiness documented in this encounter [facility]* Diagnosis Weakness- Primary Other malaise and fatigue Nausea and vomiting, unspecified vomiting type documented in this encounter [facility]* Diagnosis Chronic obstructive pulmonary disease, unspecified COPD type- Primary Secondary pulmonary arterial hypertension Pulmonary scarring Postinflammatory pulmonary fibrosis Nicotine dependence, cigarettes, with unspecified nicotine-induced disorders Reactive airway disease without complication, unspecified asthma severity, unspecified whether persistent Dysphagia, unspecified type documented in this encounter [facility]* Diagnosis Chronic obstructive pulmonary disease, unspecified COPD type- Primary Secondary pulmonary arterial hypertension Pulmonary scarring Postinflammatory pulmonary fibrosis Nicotine dependence, cigarettes, with unspecified nicotine-induced disorders Reactive airway disease without complication, unspecified asthma severity, unspecified whether persistent Dysphagia, unspecified type Dysphonia- Primary Pharyngoesophageal dysphagia Dysphagia, pharyngoesophageal phase Deviated nasal septum Presbylarynx Other diseases of larynx documented in this encounter [facility]* Diagnosis Chronic obstructive pulmonary disease, unspecified COPD type- Primary Secondary pulmonary arterial hypertension Pulmonary scarring Postinflammatory pulmonary fibrosis Nicotine dependence, cigarettes, with unspecified nicotine-induced disorders Reactive airway disease without complication, unspecified asthma severity, unspecified whether persistent Dysphagia, unspecified type Secondary pulmonary arterial hypertension Chronic obstructive pulmonary disease, unspecified COPD type Pulmonary scarring Postinflammatory pulmonary fibrosis Reactive airway disease without complication, unspecified asthma severity, unspecified whether persistent documented in this encounter [facility]* Diagnosis Chronic obstructive pulmonary disease, unspecified COPD type- Primary Secondary pulmonary arterial hypertension Pulmonary scarring Postinflammatory pulmonary fibrosis Nicotine dependence, cigarettes, with unspecified nicotine-induced disorders Reactive airway disease without complication, unspecified asthma severity, unspecified whether persistent Dysphagia, unspecified type Secondary pulmonary arterial hypertension- Primary Chronic obstructive pulmonary disease, unspecified COPD type Pulmonary scarring Postinflammatory pulmonary fibrosis Reactive airway disease without complication, unspecified asthma severity, unspecified whether persistent documented in this encounter [facility]* Diagnosis Chronic obstructive pulmonary disease, unspecified COPD type- Primary Secondary pulmonary arterial hypertension Pulmonary scarring Postinflammatory pulmonary fibrosis Nicotine dependence, cigarettes, with unspecified nicotine-induced disorders Reactive airway disease without complication, unspecified asthma severity, unspecified whether persistent Dysphagia, unspecified type Pulmonary scarring Postinflammatory pulmonary fibrosis documented in this encounter [facility]* Diagnosis Chronic obstructive pulmonary disease, unspecified COPD type- Primary Secondary pulmonary arterial hypertension Pulmonary scarring Postinflammatory pulmonary fibrosis Nicotine dependence, cigarettes, with unspecified nicotine-induced disorders Reactive airway disease without complication, unspecified asthma severity, unspecified whether persistent Dysphagia, unspecified type Secondary pulmonary arterial hypertension [facility] Chronic obstructive pulmonary disease, unspecified COPD type- Primary Secondary pulmonary arterial hypertension Pulmonary scarring Postinflammatory pulmonary fibrosis Nicotine dependence, cigarettes, with unspecified nicotine-induced disorders Reactive airway disease without complication, unspecified asthma severity, unspecified whether persistent Dysphagia, unspecified type Pulmonary scarring Postinflammatory pulmonary fibrosis Lung nodule Solitary pulmonary nodule Bronchiolitis Acute bronchiolitis due to other infectious organisms [facility] Diagnosis Chronic obstructive pulmonary disease, unspecified COPD type- Primary Secondary pulmonary arterial hypertension Pulmonary scarring Postinflammatory pulmonary fibrosis Nicotine dependence, cigarettes, with unspecified nicotine-induced disorders Reactive airway disease without complication, unspecified asthma severity, unspecified whether persistent Dysphagia, unspecified type Encounter for pre-operative respiratory clearance- Primary Pre-operative respiratory examination Chronic obstructive pulmonary disease, unspecified COPD type Secondary pulmonary arterial hypertension Lung nodule Solitary pulmonary nodule Nicotine dependence, cigarettes, with unspecified nicotine-induced disorders Pulmonary scarring Postinflammatory pulmonary fibrosis Severe persistent asthma without complication 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 * Pain and Pain Control ([facility]) ([place] documented in this [facility] Discharge instructions* Attachments The following attachments cannot be sent through Care Everywhere. * [facility] Control ([facility]) ([place]) * Chronic Obstructive Pulmonary Disease (COPD) ([facility]) ([place]) documented in this [facility] Discharge instructions* Attachments The following attachments cannot be sent through Care Everywhere. * Pain and Pain Control ([facility]) ([place]) * Cellulitis ([place]) * SOB (Shortness of Breath) ([place]) documented in this [facility] Discharge instructions* Attachments The following attachments cannot be sent through Care Everywhere. * Nausea and Vomiting ([place]) [facility] Consultation (Urgent) - New Request Specialty Diagnoses / Procedures Referred By Contac t Referred To Contact Cardiovascular Medicine Diagnoses Chest pain, unspecified type Chronic obstructive pulmonary disease, unspecified COPD type Lopez Dubose MD [address] [place] [phone] David Yepez DO [address] [place] [phone] Referral ID Status Reason Start Date Expiration Date V isits Requested Visits Authorized [id number] New Request 12/21/2023 01/14/2025 1 1 * Radiology (Emergency) - New Request Specialty Diagnoses / Procedures Referred By Contac t Referred To Contact Procedures ECG Lopez Dubose MD [address] [place] [address] Referral ID Status Reason Start Date Expiration Date V isits Requested Visits Authorized [id number] New Request 12/21/2023 01/14/2025 1 1 [facility] for referral (narrative)* Consultation (Urgent) - New Request Specialty Diagnoses / Procedures Referred By Contac t Referred To Contact Otolaryngology Diagnoses Dysphagia, unspecified type Stefan Goel MD [address] [place] [phone] Duy Mas MD [address] [place] [phone] Referral ID Status Reason Start Date Expiration Date V isits Requested Visits Authorized [id number] New Request 07/08/2024 08/02/2025 1 1 * Medication Prior Authorization - Pending Review Specialty Diagnoses / Procedures Referred By Contac t Referred To Contact Diagnoses Chronic obstructive pulmonary disease, unspecified COPD type Stefan Goel MD [address] [place] [address] Referral ID Status Reason Start Date Expiration Date V isits Requested Visits Authorized [id number] Pending Review 07/08/2024 08/02/2025 1 1 * Medication Prior Authorization - Closed Specialty Diagnoses / Procedures Referred By Sharda t Referred To Contact Diagnoses Chronic obstructive pulmonary disease, unspecified COPD type Stefan Goel MD [address] [place], [place] [id number] Referral ID Status Reason Start Date Expiration Date Visits Re quested Visits Authorized [id number] Closed 1 1 * Medication Prior Authorization - Closed Specialty Diagnoses / Procedures Referred By Sharda t Referred To Contact Diagnoses Chronic obstructive pulmonary disease, unspecified COPD type Stefan Goel MD [address] [place] [address] Referral ID Status Reason Start Date Expiration Date Visits Re quested Visits Authorized [id number] Closed 1 1 * Medication Prior Authorization - Closed Specialty Diagnoses / Procedures Referred By Sharda t Referred To Contact Diagnoses Chronic obstructive pulmonary disease, unspecified COPD type Stefan Goel MD [address] [place], [place] [id number] Referral ID Status Reason Start Date Expiration Date Visits Re quested Visits Authorized [id number] Closed 1 1 * Pulmonary Rehabilitation (Routine) - Authorized Specialty Diagnoses / Procedures Referred By Sharda t Referred To Contact Diagnoses Secondary pulmonary arterial hypertension Chronic obstructive pulmonary disease, unspecified COPD type Pulmonary scarring Reactive airway disease without complication, unspecified asthma severity, unspecified whether persistent Procedures OVERNIGHT PULSE OXIMETRY TEST Stefan Goel MD [address] [place], [place] [id number] Referral ID Status Reason Start Date Expiration Date V isits Requested Visits Authorized [id number] Authorized 07/08/2024 08/02/2025 1 1 * Radiology (Routine) - New Request Specialty Diagnoses / Procedures Referred By Contac t Referred To Contact Diagnoses Secondary pulmonary arterial hypertension Procedures ECHOCARDIOGRAM ID ECHO TTHRC R-T 2D W/WOM-MODE COMPL SPEC&COLR D Stefan Goel MD [address] [place] [id number] Referral ID Status Reason Start Date Expiration Date V isits Requested Visits Authorized [id number] New Request 07/08/2024 08/02/2025 1 1 * Pulmonary Rehabilitation (Routine) - New Request Specialty Diagnoses / Procedures Referred By Contac t Referred To Contact Diagnoses Secondary pulmonary arterial hypertension Chronic obstructive pulmonary disease, unspecified COPD type Pulmonary scarring Reactive airway disease without complication, unspecified asthma severity, unspecified whether persistent Procedures PFT COMPLETE Stefan Goel MD [address] [place] [address] Referral ID Status Reason Start Date Expiration Date V isits Requested Visits Authorized [id number] New Request 07/08/2024 08/02/2025 1 1 * Pulmonary Rehabilitation (Routine) - New Request Specialty Diagnoses / Procedures Referred By Contac t Referred To Contact Diagnoses Secondary pulmonary arterial hypertension Chronic obstructive pulmonary disease, unspecified COPD type Pulmonary scarring Reactive airway disease without complication, unspecified asthma severity, unspecified whether persistent Procedures EXERCISE-6 MIN. WALK Stefan Goel MD [address] [place] [phone] Referral ID Status Reason Start Date Expiration Date V isits Requested Visits Authorized [id number] New Request 07/08/2024 08/02/2025 1 1 * MRI/CAT Scan (Routine) - New Request Specialty Diagnoses / Procedures Referred By Sharda schwartz Referred To Contact Diagnoses Pulmonary scarring Procedures CT CHEST WITHOUT CONTRAST CHG DIAGNOSTIC COMPUTED TOMOGRAPHY THORAX W/O CNTRST Stefan Goel MD [address] [place] [address] Referral ID Status Reason Start Date Expiration Date V isits Requested Visits Authorized [id number] New Request 07/08/2024 08/02/2025 1 1 [facility] for visit Narrative* Pulmonary Rehabilitation (Routine) - Closed Specialty Diagnoses / Procedures Referred By Sharda schwartz Referred To Contact Diagnoses Secondary pulmonary arterial hypertension Chronic obstructive pulmonary disease, unspecified COPD type Pulmonary scarring Reactive airway disease without complication, unspecified asthma severity, unspecified whether persistent Procedures EXERCISE-6 MIN. WALK Stefan Goel MD [address] [place] [address] Phone: tel: fax: Referral ID Status Reason Start Date Expiration Date Visits Re quested Visits Authorized [id number] Closed 07/08/2024 08/02/2025 1 1 [facility] for visit Narrative* Pulmonary Rehabilitation (Routine) - Closed Specialty Diagnoses / Procedures Referred By Sharda schwartz Referred To Contact Diagnoses Secondary pulmonary arterial hypertension Chronic obstructive pulmonary disease, unspecified COPD type Pulmonary scarring Reactive airway disease without complication, unspecified asthma severity, unspecified whether persistent Procedures PFT COMPLETE Stefan Goel MD [address] [place] [address] Phone: tel: fax: Referral ID Status Reason Start Date Expiration Date Visits Re quested Visits Authorized [id number] Closed 07/08/2024 08/02/2025 1 1 [facility] for visit Narrative* MRI/CAT Scan (Routine) - Closed Specialty Diagnoses / Procedures Referred By Contac t Referred To Contact Diagnoses Pulmonary scarring Procedures CT CHEST WITHOUT CONTRAST CHG DIAGNOSTIC COMPUTED TOMOGRAPHY THORAX W/O Stefan Cleaning MD [address] [place] [address] Phone: tel: fax: Referral ID Status Reason Start Date Expiration Date Visits Re quested Visits Authorized [id number] Closed 07/08/2024 08/02/2025 1 1 [facility] for visit Narrative* Radiology (Routine) - Closed Specialty Diagnoses / Procedures Referred By Contchloe t Referred To Contact Diagnoses Secondary pulmonary arterial hypertension Procedures ECHOCARDIOGRAM ID ECHO TTHRC R-T 2D W/WOM-MODE COMPL SPEC&COLR D Stefan Goel MD [address] [place] [address] Phone: tel: fax: Referral ID Status Reason Start Date Expiration Date Visits Re quested Visits Authorized [id number] Closed 07/08/2024 08/02/2025 1 1 [facility] MRI/CAT Scan (Routine) - Closed Specialty Diagnoses / Procedures Referred By Sharda t Referred To Contact Computerized Tomography Scan Diagnoses Pulmonary scarring Lung nodule Bronchiolitis Procedures CT CHEST WITHOUT CONTRAST CHG DIAGNOSTIC COMPUTED TOMOGRAPHY THORAX W/O Stefan Cleaning MD [address] [place] [address] Phone: tel: fax: [facility] CT Scan [address] [place] [address] Phone: tel: fax: Referral ID Status Reason Start Date Expiration Date Visits Re quested Visits Authorized [id number] Closed 08/21/2024 09/15/2025 1 1 [facility] Summary Purpose Family History No [...] Activated Date Inactivated Comments 07/31/2021 3:14 PM Date Activated Date Inactivated Comments 07/31/2021 3:14 PM Reason for Referral Specialty Diagnoses / Procedures Referred By Contac t Referred To Contact Procedures INPATIENT ADMISSION NOTIFICATION Osmin Luna MD [address] [place] [address] Referral ID Status Reason Start Date Expiration Date V isits Requested Visits Authorized [id number] New Request 07/31/2021 08/25/2022 1 1 Specialty Diagnoses / Procedures Referred By Contac t Referred To Contact Procedures ECG John Edwards PA-C [address] [place] [address] Referral ID Status Reason Start Date Expiration Date V isits Requested Visits Authorized [id number] New Request 07/31/2021 08/25/2022 1 1 Specialty Diagnoses / Procedures Referred By Contac t Referred To Contact Procedures C REACTIVE PROTEIN John Edwards PA-C [address] [place] [address] Referral ID Status Reason Start Date Expiration Date V isits Requested Visits Authorized [id number] New Request 07/31/2021 08/25/2022 1 1 Specialty Diagnoses / Procedures Referred By Contac t Referred To Contact Ultrasound Diagnoses Abdominal pain, right upper quadrant Procedures US ABDOMEN RUQ/LIVER/GB Dez Rodriguez MD [address] [place] [address] [facility] [address] [place] [phone] Referral ID Status Reason Start Date Expiration Date Visits Re quested Visits Authorized [id number] Closed 10/19/2021 11/13/2022 1 1 Specialty Diagnoses / Procedures Referred By Contac t Referred To Contact Diagnoses Neck mass Procedures US NECK SOFT TISSUE Dez Rodriguez MD [address] [place] [address] [facility] Referral ID Status Reason Start Date Expiration Date Visits Re quested Visits Authorized [id number] Closed 03/23/2023 04/16/2024 1 1 Specialty Diagnoses / Procedures Referred By Contac t Referred To Contact Diagnoses Neck mass Procedures CT NECK WITH CONTRAST ID CT NECK TISSUE CONTRAST Dez Rodriguez MD [address] [place] [address] [facility] Referral ID Status Reason Start Date Expiration Date Visits Re quested Visits Authorized [id number] Closed 04/28/2023 05/22/2024 1 1 Specialty Diagnoses / Procedures Referred By Contac t Referred To Contact Procedures ECG Marisa Martinez MD [address] [place] [address] Referral ID Status Reason Start Date Expiration Date V isits Requested Visits Authorized [id number] New Request 08/23/2023 09/16/2024 1 1 Specialty Diagnoses / Procedures Referred By Contac t Referred To Contact Nuclear Medicine Diagnoses Dyspnea, unspecified type Procedures NUC MYOCARD PERF STRESS MIBI PHARM ID CHG MYOCARDIAL SPECT MULTIPLE STUDIES CHG MYOCARDIAL SPECT MULTIPLE STUDIES-T ID CARDIAC STRESS TST,INTERP/REPT ONLY ID CV STRS TST XERS&/OR RX CONT ECG W/O I&R Dez Rodriguez MD [address] [place] [address] Phone: [facility] Nuclear Medicine [address] [place] [phone] Referral ID Status Reason Start Date Expiration Date Visits Re quested Visits Authorized [id number] Closed 10/24/2023 11/17/2024 1 1 Specialty Diagnoses / Procedures Referred By Contac t Referred To Contact Diagnoses Dyspnea, unspecified type Procedures HOLTER MONITOR - DEXIGRAPH OPERATOR Dez Rodriguez MD [address] [place] [address] Phone: Referral ID Status Reason Start Date Expiration Date Visits Re quested Visits Authorized [id number] Closed 10/24/2023 11/17/2024 1 1 Specialty Diagnoses / Procedures Referred By Contac t Referred To Contact Procedures ECG Tonny Alves MD [address] [place] [address] Referral ID Status Reason Start Date Expiration Date V isits Requested Visits Authorized [id number] New Request 12/07/2023 12/31/2024 1 1 Specialty Diagnoses / Procedures Referred By Contac t Referred To Contact Diagnoses Precordial pain Palpitations Shortness of breath Syncope and collapse PAT (paroxysmal atrial tachycardia) Atrial premature contractions Ventricular premature contractions NSVT (nonsustained ventricular tachycardia) Procedures ECHOCARDIOGRAM ID ECHO TTHRC R-T 2D W/WOM-MODE COMPL SPEC&COLR D Kratnhi Edgar II, MD [address] [place] [id number] Referral ID Status Reason Start Date Expiration Date Visits Re quested Visits Authorized [id number] Closed 12/27/2023 01/20/2025 1 1 Specialty Diagnoses / Procedures Referred By Contac t Referred To Contact Diagnoses Syncope and collapse Dizziness and giddiness Procedures VASC DUPLEX CAROTID BILATERAL ID DUPLEX SCAN EXTRACRANIAL ART COMPL BI STUDY Kranthi Edgar II, MD [address] [place] [id number] Referral ID Status Reason Start Date Expiration Date Visits Re quested Visits Authorized [id number] Closed 12/27/2023 01/20/2025 1 1 Referral ID Status Reason Start Date Expiration Date V isits Requested Visits Authorized [id number] New Request 04/06/2024 05/01/2025 1 1 Additional Source Comments (unrecognized sect ion and content) No Status Records FoundNo Status Records FoundNo Status Records FoundNo Status Records FoundNo Status Records FoundNo Status Records Found INFORMATION SOURCE (unrecogn ized section and content) DATE CREATED AUTHOR 12/15/2017 [facility] DATE CREATED AUTHOR AUTHOR'S ORGANIZ ATION 12/02/2022 [facility] DATE CREATED AUTHOR AUTHOR'S ORGANIZ ATION 01/25/2024 [facility] DATE CREATED AUTHOR AUTHOR'S ORGANIZ ATION 10/10/2024 [facility] DATE CREATED AUTHOR AUTHOR'S ORGANIZ ATION 11/06/2024 [facility] DATE CREATED AUTHOR AUTHOR'S ORGANIZ ATION 11/09/2024 [facility] Reason for Visit (unrecogniz ed section and content) Reason Comments Cough for 4-5 days. pt rep orts everyone in the family has COVID . Fever Generalized Body Aches Nausea Shortness of Breath Specialty Diagnoses / Procedures Referred By Contac t Referred To Contact Referral ID Status Reason Start Date Expiration Date Visits Re quested Visits Authorized [id number] 1 1 Specialty Diagnoses / Procedures Referred By Contac t Referred To Contact Ultrasound Diagnoses Abdominal pain, right upper quadrant Procedures US ABDOMEN RUQ/LIVER/GB Dez Rodriguez MD [address] [place] [address] [facility] Ultrasound [address] [place] [phone] Referral ID Status Reason Start Date Expiration Date Visits Re quested Visits Authorized [id number] Closed 10/19/2021 11/13/2022 1 1 Specialty Diagnoses / Procedures Referred By Contac t Referred To Contact Diagnoses Neck mass Procedures [place] [address] [place] [address] [facility] Referral ID Status Reason Start Date Expiration Date Visits Re quested Visits Authorized [id number] Closed 03/23/2023 04/16/2024 1 1 Specialty Diagnoses / Procedures Referred By Contac t Referred To Contact Diagnoses Neck mass Procedures CT NECK WITH CONTRAST ID CT NECK TISSUE CONTRAST Dez Rodriguez MD [address] [place] [address] [facility] Referral ID Status Reason Start Date Expiration Date Visits Re quested Visits Authorized [id number] Closed 04/28/2023 05/22/2024 1 1 Reason Comments Shortness of Breath Cough started last W . Now C/O SOB, nausea, tachycardia with activity, and chest tightness. Specialty Diagnoses / Procedures Referred By Contac t Referred To Contact Nuclear Medicine Diagnoses Dyspnea, unspecified type Procedures NUC MYOCARD PERF STRESS MIBI PHARM ID CHG MYOCARDIAL SPECT MULTIPLE STUDIES CHG MYOCARDIAL SPECT MULTIPLE STUDIES-T ID CARDIAC STRESS TST,INTERP/REPT ONLY ID CV STRS TST XERS&/OR RX CONT ECG W/O I&R Dez Rodriguez MD [address] [place] [address] [facility] Nuclear Medicine [address] [place] [phone] Referral ID Status Reason Start Date Expiration Date Visits Re quested Visits Authorized [id number] Closed 10/24/2023 11/17/2024 1 1 Specialty Diagnoses / Procedures Referred By Sbac t Referred To Contact Diagnoses Dyspnea, unspecified type Procedures HOLTER MONITOR - SENIOR CARE Dez Rodriguez MD [address] [place] [id number] Referral ID Status Reason Start Date Expiration Date Visits Re quested Visits Authorized [id number] Closed 10/24/2023 11/17/2024 1 1 Reason Comments [...] TILT TABLE TEST Kranthi Edgar II, MD [address] [place] [address] Referral ID Status Reason Start Date Expiration Date Visits Re quested Visits Authorized [id number] Closed 12/27/2023 01/20/2025 1 1 Specialty Diagnoses / Procedures Referred By Contac t Referred To Contact Diagnoses Precordial pain Palpitations Shortness of breath Syncope and collapse PAT (paroxysmal atrial tachycardia) Atrial premature contractions Ventricular premature contractions NSVT (nonsustained ventricular tachycardia) Procedures ECHOCARDIOGRAM ID ECHO TTHRC R-T 2D W/WOM-MODE COMPL SPEC&COLR D Kranthi Edgar II, MD [address] [place] [id number] Referral ID Status Reason Start Date Expiration Date Visits Re quested Visits Authorized [id number] Closed 12/27/2023 01/20/2025 1 1 Specialty Diagnoses / Procedures Referred By Contac t Referred To Contact Diagnoses Syncope and collapse Dizziness and giddiness Procedures VASC DUPLEX CAROTID BILATERAL ID DUPLEX SCAN EXTRACRANIAL ART COMPL BI STUDY Kranthi Edgar II, MD [address] [place] [id number] Referral ID Status Reason Start Date Expiration Date Visits Re quested Visits Authorized [id number] Closed 12/27/2023 01/20/2025 1 1 Reason Comments Fatigue Dizziness Pt reports that for 30 minutes he has been feeling weak, dizzy, shakey and sweaty. He is seeing a cadmium liquor maker for an afib work up per pt Reason Comments Shortness of Breath Reason Comments New Patient Dysphagia Specialty Diagnoses / Procedures Referred By Contac t Referred To Contact Otolaryngology Diagnoses Dysphagia, unspecified type Stefan Goel MD [address] [place] [address] Phone: tel: fax: Duy Mas MD [address] [place] [id number] Phone: tel: fax: Referral ID Status Reason Start Date Expiration Date Visits Re quested Visits Authorized [id number] Closed 07/08/2024 08/02/2025 1 1 Reason Comments Chronic Obstructive Pulmonary Disease Scheduled Active and Recently Administ ered Medications [...] 1215 1208 (Given - Provider: Iliana Anderson, CASEY SAW OPERATOR) ipratropium-albuterol (DUONEB) 0.5-2.5 (3) MG/3ML nebulizer solution 3 mL (COMPLETED) 3 mL, Nebulization, ONCE, 1 dose, On 08/02/21 at 1015 1112 (Given - Provider: Shaye Davey, CASEY SAW OPERATOR) levoFLOXacin (LEVAQUIN) 750 mg in dextrose 5% [...] 0726 (Not Given - Provider: Patricia Schilling, RN - Reason: Order Parameters not met) methylPREDNISolone sodium succinate (SOLU-MEDROL) injection 80 mg 80 mg, Intravenous, EVERY 8 HOURS, First dose on 08/01/21 at 1400, Until Discontinued 1531 (Given - Provider: Martin Rodriguez RN)2315 (Given - Provider: Fracisco Sosa, RN - Comment: forgot tp scan) 0634 (Given - Provider: Fracisco Sosa, RN)1320 (Given - Provider: Patricia Schilling, YOLY) ondansetron 4mg/2ml (ZOFRAN) injection 4 mg [...] Rodriguez RN) 0858 (Given - Provider: Patricia Schilling RN) potassium chloride (K-DUR) tablet ER 40 [...] Provider: Krystina Herr RN)1217 (Stopped - Provider: Krystina Herr, RN) [...] 1715 1727 (Given - Provid er: Iliana Anderson, YUE) Ipratropium-albuterol (DUONEB) 0.5-2.5 (3) MG/3ML nebulizer solution 3 mL (COMPLETED) 3 mL, Nebulization, ONCE, 1 dose, On Mon08/23/23 at 1745 1729 (Given - Provid er: Iliana Anderson, YUE) Ipratropium-albuterol (DUONEB) 0.5-2.5 (3) MG/3ML nebulizer solution [...] 1 dose, On Kya 12/07/23 at 0115 0058 (Given - Provid er: Yareli Lenz RN) No Frequency Medication Order 12/05/2023 12/06/2023 12/07/2023 Ipratropium-albuterol (DUONEB) 0.5-2.5 (3) MG/3ML nebulizer solution 1 dose, Starting on Kya 12/07/23 at 0053, Until Kya 12/07/23 at 0632, Ayde Shearer: cabinet override 0100 [...] ovider: Shagufta Mcintyre RRT - Reason: Patient/family refused)0211 (Not Given - Provider: Shagufta Mcintyre RRT - Reason: Patient/family refused)0212 (Not Given - [...] Care Teams (unrecognized sec tion and content) [employer] Sales Engineer Relationship Specialty Start Date End Date Dez Rodriguez MD [address] [phone] PCP - General Family Medicine 11/20/19 [employer] Sales Engineer Relationship Specialty Start Date End Date Dez Rodriguez MD [address] [place] [address] PCP - General Family Medicine 11/20/19 [employer] Sales Engineer Relationship Specialty Start Date End Date Dez Rodriguez MD [address] [place] [address] PCP - General Family Medicine 11/20/19 [employer] Sales Engineer Relationship Specialty Start Date End Date Dez Rodriguez MD [address] [place] [address] PCP - General Family Medicine 11/20/19 [employer] Sales Engineer Relationship Specialty Start Date End Date Dez Rodriguez MD [address] [facility] [place] [address] [place] [address] PCP - General Family Medicine 11/20/19 [employer] Sales Engineer Relationship Specialty Start Date End Date Dez Rodriguez MD [address] [facility] [place] [address] [place] [address] PCP - General Family Medicine 11/20/19 [employer] Sales Engineer Relationship Specialty Start Date End Date Dez Rodriguez MD [address] [facility] [place] [address] [place] [address] PCP - General Family Medicine 11/20/19 [employer] Sales Engineer Relationship Specialty Start Date End Date Dez Rodriguez MD [address] [facility] [place] [address] [place] [address] PCP - General Family Medicine 11/20/19 [employer] Sales Engineer Relationship Specialty Start Date End Date Dez Rodriguez MD [address] [facility] [place] [address] [place] [address] PCP - General Family Medicine 11/20/19 [employer] Sales Engineer Relationship Specialty Start Date End Date Dez Rodriguez MD [address] [facility] [place] [address] [place] [address] PCP - General Family Medicine 11/20/19 [employer] Sales Engineer Relationship Specialty Start Date End Date Dez Rodriguez MD [address] [facility] [place] [address] [place] [address] PCP - General Family Medicine 11/20/19 [employer] Sales Engineer Relationship Specialty Start Date End Date Dez Rodriguez MD [address] [facility] [place] [address] [place] [address] PCP - General Family Medicine 11/20/19 [employer] Sales Engineer Relationship Specialty Start Date End Date Dez Rodriguez MD [address] [place] [address] PCP - General Family Medicine 11/20/19 [employer] Sales Engineer Relationship Specialty Start Date End Date Dez Rodriguez MD [address] [place] [address] PCP - General Family Medicine 11/20/19 [employer] Sales Engineer Relationship Specialty Start Date End Date Dez Rodriguez MD [address] [place] [address] PCP - General Family Medicine 11/20/19 [employer] Sales Engineer Relationship Specialty Start Date End Date Dez Rodriguez MD [facility] [place] [address] PCP - General Family Medicine 11/20/19 [employer] Sales Engineer Relationship Specialty Start Date End Date Dez Rodriguez MD PCP - General Family Medicine 11/20/19 [employer] Sales Engineer Relationship Specialty Start Date End Date Dez Rodriguez MD PCP - General Family Medicine 11/20/19 FOR [...] BE BASED ON THE PRIMARY CLINICAL RECORDS. [facility]. provides no warranty or guarantee of the accuracy or completeness of information in this document.
--- NOTE | 2024-11-25 07:51 | CT_ITS ---
The [address] [address] Patient Name: RAUL MULLEN MRN: [id number] date: 1950 Sex: M Assigned Patient Location: LAB Current Patient Location: LAB Accession/Order Number: [id number] Exam Date: 11/25/2024 09:35 Report Date: 11/25/2024 09:45 At the request of: DEZ RODRIGUEZ MD Procedure: CT abdomen pelvis w con CT ABDOMEN AND PELVIS WITH CONTRAST COMPARISON: None CLINICAL DATA: Rectal bleeding, abdominal pain and anemia. Spiral images were obtained through the abdomen and pelvis following oral and [address] exam was performed using one or more following dose reduction techniques: Automated exposure control, adjustment of the mA and/or kV according to patient size, or use of iterative reconstruction technique. Limited cuts through the lung bases show minor atelectasis or scarring on the right. There is a tiny hiatal hernia. Fatty infiltration of the liver is suspected. There are scattered hepatic hypodensities that may be cysts. No calcified gallstones are identified. The spleen, pancreas and adrenal glands show no acute findings. The right kidney is atrophic. The renal nephrograms are symmetric. No hydronephrosis is seen. There are bilateral renal cysts, left more than right. There is atherosclerotic plaque involving the aorta and iliac arteries. No enlarged lymph nodes or ascites are present. The small bowel loops are not distended. There is stool along the colon, right side greater than left. Degenerative changes are visualized at the spine, greatest at the facets. There are also short pedicles. Associated stenosis is visualized. Degenerative change is also seen at the SI joints. Images through the pelvis show normal caliber small bowel loops. There is no appendiceal inflammation. There is air and a small amount of stool at the distal colon. There are a few distal colonic diverticula. No active inflammation is seen. The prostate is enlarged and lobulated in contour with mass effect at the bladder trigone. No other bladder abnormalities are seen. There is no pelvic lymphadenopathy or ascites. There are mild degenerative changes at the spine. 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 CT/CT abdomen pelvis w con IMPRESSION: TINY HIATAL HERNIA. FATTY LIVER WITH SUSPECTED SCATTERED CYSTS. ATROPHIC RIGHT KIDNEY. BILATERAL RENAL CYSTS. NO BOWEL OR URINARY TRACT OBSTRUCTION. MILD DIVERTICULOSIS. PROSTATE HYPERTROPHY. Impression dictated by: Sheyla Sheldon M.D. 11/25/2024 9:45 AM Dictation Location: [place] [address] Electronically authenticated by: [id number] Y Date: 11/25/2024 09:45
[2024-11-25 07:58] LABS: Estimated GFR (African America >60 (>=60 mL/min/1.73m^2); Estimated GFR (Non-African Ame >60 (>=60 mL/min/1.73m^2)
== END 2024-11-25 07:35 | disposition home or self-care (01) ==
LOC: LAB 07:34
PROVIDERS: Pathology Anatomic Pathology & Clinical Pathology; PCP Family Medicine; Visit Provider Family Medicine
DX: D50.9 Iron deficiency anemia, unspecified (principal); K62.5 Hemorrhage of anus and rectum; K44.9 Diaphragmatic hernia without obstruction or gangrene; K76.0 Fatty (change of) liver, not elsewhere classified; N28.1 Cyst of kidney, acquired; K57.90 Diverticulosis of intestine, part unspecified, without perforation or abscess without bleeding; N40.0 Benign prostatic hyperplasia without lower urinary tract symptoms
CPT/HCPCS: 36415; 74177; 82565; Q9967